=== PATIENT | male | born 1950 | race American Indian/Alaskan Native ===

== ENCOUNTER 2020-07-28 08:48 | Inpatient (IN) | payer MEDICARE ==
[2020-07-28] MEDS ORDERED: SODIUM CHLORIDE 0.9% 1000 ML 2,000 ML IV ONE (08:49)
[2020-07-28] MEDS ORDERED: HYDROCORTISONE SOD SUCC 100 MG/2 ML VIAL IV STA (08:49)
--- NOTE | 2020-07-28 09:07 | Emergency Department Report ---
ED General Adult HPI - General Chief complaint: Fever Stated complaint: AMS PUI?: No Time Seen by Provider: 07/28/20 08:49 Source: EMS (Verbal report received from emergency medical services. EMS documentation not available at time of chart dictation ), RN notes reviewed, old records reviewed Mode of arrival: Stretcher Limitations: Altered Mental Status, Physical Limitation - History of Present Illness Initial comments: The patient was evaluated in the emergency department for symptoms described in the history of present illness. He/she was evaluated in the context of the global COVID-19 pandemic, which necessitated consideration that the patient might be at risk for infection with the virus that causes COVID-19. Inst itutional protocols and algorithms that pertain to the evaluation of patients at risk for COVID-19 are in a state of rapid change based on information released by regulatory bodies including the CDC and federal and state organizations. These policies and algorithms were followed during the patient's care in the emergency department. Please note that these policies, procedures and recommendations changed on a rapid basis. The patient is a 69-year-old gentleman. He is not known to myself previously. His primary care doctor appears to be Dr. Camilo. He presents to this emergency room from [facility]. As per enclosed documentation, he was recently admitted to [facility], from May 29, 2020 through July 04, 2020. It appears that he has a history of quadriplegia, high C-spine fracture, MSSA, currently on Levaquin, and Eliquis. He is brought to the hospital by emergency medical services with a reported complaint of weakness, and altered mental status. Upon arrival to this emergency room, the patient was breathing sonorous sleep, and was found to be very tachycardic and hypotensive. A code sepsis was called overhead. EMS intubated this patient using C-spine immobilization techniques. Please note that this patient was intubated by EMS without my being present to directly supervise or monitor. The patient was found to be febrile to 106 degrees rectally, tachycardic to the 140s/150s, with a blood pressure in the 70s. Patient medicated empirically with norepinephrine, aggressive IV fluids, vancomycin, and ceftriaxone. Patient himself is not able to describe the qualitative nature of symptoms, exacerbating factors, relieving factors, or aggravating factors. His last known well time is not known. He is not accompanied by friends or family at this time for additional information or collateral information. -: unknown Radiation: other Quality: other Consistency: other Improves with: other Worsens with: other Associated Symptoms: other Treatments Prior to Arrival: other ED Review of Systems ROS: Stated complaint: AMS Other details as noted in HPI Comment: Unobtainable due to pts medical conditions ED Physical Exam - General Limitations: Altered Mental Status General appearance: obtunded - Head Head exam: Present: atraumatic, normocephalic - Eye Eye exam: Present: normal appearance - ENT ENT exam: Present: normal exam, normal orophraynx, mucous membranes moist, normal external ear exam, other (Endotracheal tube noted in oropharynx) - Neck Neck exam: Present: normal inspection, other (Cervical collar in place) - Respiratory Respiratory exam: Present: respiratory distress, rhonchi - Cardiovascular Cardiovascular Exam: Present: normal rhythm, tachycardia, normal heart sounds. Absent: systolic murmur, diastolic murmur, rubs, gallop - GI/Abdominal GI/Abdominal exam: Present: soft, other (Feeding tube in place). Absent: distended, tenderness, guarding, rebound, rigid, pulsatile mass - Rectal Rectal exam: Present: normal inspection, heme (-) stool, other (Sacral wound is noted). Absent: black stool, bloody stool - exam: Present: normal inspection External exam: Present: normal external exam - Extremities Exam Extremities exam: Present: normal inspection, other (2+ pulses noted in the bilateral upper and lower extremities. There is no palpable cord. negative Homans sign. Muscular compartments are soft. The pelvis is stable.). Absent: calf tenderness - Back Exam Back exam: Present: normal inspection. Absent: tenderness, CVA tenderness (R), CVA tenderness (L), paraspinal tenderness, vertebral tenderness - Neurological Exam Neurological exam: Present: altered, other (Patient nonverbal. GCS of 3T.) - Psychiatric Psychiatric exam: Present: other (The patient is nonverbal) - Skin Skin exam: Present: warm, dry, intact, normal color, other (There is a PICC line noted in the left upper extremity, without redness, pus or streaking). Absent: rash ED Course Vital Signs 07/28/20 07/28/20 09:00 13:08 Temperature 106 F H Pulse Rate 114 H 120 H Respiratory 12 18 Rate Blood Pressure 114/64 142/100 [Right] O2 Sat by Pulse 92 97 Oximetry - Reevaluation(s) Reevaluation #1: 07/28/20 12:18 Differential diagnosis, including but not limited to: Bacteremia, viremia, pneum onia, urinary tract infection, intra-abdominal infection, intracranial hemorrhage Assessment and plan: 69-year-old gentleman, who is febrile rectally to 106 degrees, tachycardic to the 140s, hypotensive initially, concerning for sepsis. Code sepsis called overhead. Broad-spectrum antibiotics, fluids, and norepinephrine infusing. Have requested medical records from [place]. Patient has a documented history of C5 quadriplegia, and is currently in a cervical collar. He does not currently have advanced directives. Prognosis very guarded. Continue fluids, antibiotics, and vasopressors as well as stress dose hydrocortisone. Have contacted critical care physician on-call, Dr. Deniz Dykes, have discussed the patient's history, physical, pertinent laboratory studies and imaging studies. He agrees to placement to the intensive care unit. Noncontrast CT scan of the brain, cervical spine, chest abdomen pelvis ordered. Patient to be admitted to the medical service once initial diagnostic radiology has resulted. Prognosis is very poor. Elevated troponin is likely a type II troponin leak. Initial EKG with excessive artifact, difficult to interpret, have requested a stat repeat EKG. 07/28/20 12:23 07/28/20 12:23 Reevaluation #2: 07/28/20 12:57 Hospital physician, Dr. Roberts, to admit patient to the medical service. 07/28/20 14:07 CT scan abdomen pelvis negative for acute findings. Blood pressure improved. Tachycardia improving. At this point in time, engineering is not able to provide an EKG without motion artifact, secondary to multiple disruptions and instrumentation in this patient's room. Because this patient is critically ill, and requires a ventilator and vasopressors, it is unsafe to move the patient, into a different room, until room opens up and to the intensive care unit. Therefore, we will defer to the inpatient team to follow-up on abnormal EKG, and nonspecifically elevated troponin. The patient was also found to have hyper glycemia, and we administered insulin. We will also defer to the inpatient team to follow-up on nonemergent incidental abnormal findings on noncontrast CT scan. ED Medical Decision Making - Lab Data Result diagrams: 07/28/20 08:48 07/28/20 08:48 Lab Results 07/28/20 07/28/20 07/28/20 Range/Units 08:48 08:48 08:48 WBC 17.0 H (4.5-11.0) K/mm3 RBC 2.77 L (3.65-5.03) M/mm3 Hgb 8.2 L (11.8-15.2) gm/dl Hct 26.5 L (35.5-45.6) % MCV 96 H (84-94) fl MCH 30 (28-32) pg MCHC 31 L (32-34) % RDW 16.2 H (13.2-15.2) % Plt Count 265 (140-440) K/mm3 Lymph % (Auto) Blade Grader Operator [place] % (Auto) Blade Grader Operator Eos % (Auto) Blade Grader Operator Baso % (Auto) Blade Grader Operator Lymph # (Auto) Blade Grader Operator [place] # (Auto) Blade Grader Operator Eos # (Auto) Blade Grader Operator Baso # (Auto) Blade Grader Operator Seg Neutrophils % Blade Grader Operator Seg Neutrophils # Blade Grader Operator PT 24.7 H (12.2-14.9) Sec. INR 2.17 H (0.87-1.13) APTT 34.7 (24.2-36.6) Sec. ABG pH (7.350-7.450) pH Units ABG pCO2 mm Hg ABG pO2 (80.0-90.0) mm Hg ABG HCO3 (20.0-26.0) mmol/L ABG O2 Saturation (95.0-99.0) % ABG Base Excess (-2.0-3.0) mmol/L ABG Hemoglobin (14.0-18.0) gm/dl ABG Carboxyhemoglobin (0.0-5.0) % ABG Methemoglobin (0.0-1.5) % VBG pH (7.320-7.420) Oxyhemoglobin (95.0-99.0) % FiO2 % Sodium 135 L (137-145) mmol/L Potassium 3.5 L (3.6-5.0) mmol/L Chloride 97.6 L (98-107) mmol/L Carbon Dioxide 26 (22-30) mmol/L Anion Gap 15 mmol/L BUN 44 H (9-20) mg/dL Creatinine 1.6 H (0.8-1.3) mg/dL Estimated GFR 52 ml/min BUN/Creatinine Ratio 28 % Glucose 431 H (75-100) mg/dL Lactic Acid (0.7-2.0) mmol/L Calcium 7.9 L (8.4-10.2) mg/dL Magnesium 1.90 (1.7-2.3) mg/dL Total Bilirubin 0.20 (0.1-1.2) mg/dL AST 81 H (5-40) units/L ALT 49 (7-56) units/L Alkaline Phosphatase 60 (35-129) units/L Ammonia (25-60) umol/L Total Creatine Kinase 486 H (55-170) units/L Troponin T 0.115 H* (0.00-0.029) ng/mL Total Protein 5.6 L (6.3-8.2) g/dL Albumin 2.6 L (3.9-5) g/dL Albumin/Globulin Ratio 0.9 % Triglycerides 63 (2-149) mg/dL Cholesterol 80 (50-199) mg/dL LDL Cholesterol Direct 44 L (50-130) mg/dL HDL Cholesterol 26 L (40-59) mg/dL Cholesterol/HDL Ratio 3.07 % TSH (0.270-4.200) mlU/mL Salicylates (2.8-20.0) mg/dL Plasma/Serum Alcohol (0-0.07) % Blood Type Antibody Screen 07/28/20 07/28/20 07/28/20 Range/Units 08:48 08:48 08:48 WBC (4.5-11.0) K/mm3 RBC (3.65-5.03) M/mm3 Hgb (11.8-15.2) gm/dl Hct (35.5-45.6) % MCV (84-94) fl MCH (28-32) pg MCHC (32-34) % RDW (13.2-15.2) % Plt Count (140-440) K/mm3 Lymph % (Auto) [place] % (Auto) Eos % (Auto) Baso % (Auto) Lymph # (Auto) [place] # (Auto) Eos # (Auto) Baso # (Auto) Seg Neutrophils % Seg Neutrophils # PT (12.2-14.9) Sec. INR (0.87-1.13) APTT (24.2-36.6) Sec. ABG pH (7.350-7.450) pH Units ABG pCO2 mm Hg ABG pO2 (80.0-90.0) mm Hg ABG HCO3 (20.0-26.0) mmol/L ABG O2 Saturation (95.0-99.0) % ABG Base Excess (-2.0-3.0) mmol/L ABG Hemoglobin (14.0-18.0) gm/dl ABG Carboxyhemoglobin (0.0-5.0) % ABG Methemoglobin (0.0-1.5) % VBG pH (7.320-7.420) Oxyhemoglobin (95.0-99.0) % FiO2 % Sodium (137-145) mmol/L Potassium (3.6-5.0) mmol/L Chloride (98-107) mmol/L Carbon Dioxide (22-30) mmol/L Anion Gap mmol/L BUN (9-20) mg/dL Creatinine (0.8-1.3) mg/dL Estimated GFR ml/min BUN/Creatinine Ratio % Glucose (75-100) mg/dL Lactic Acid (0.7-2.0) mmol/L Calcium (8.4-10.2) mg/dL Magnesium (1.7-2.3) mg/dL Total Bilirubin (0.1-1.2) mg/dL AST (5-40) units/L ALT (7-56) units/L Alkaline Phosphatase (35-129) units/L Ammonia 63.0 H (25-60) umol/L Total Creatine Kinase (55-170) units/L Troponin T (0.00-0.029) ng/mL Total Protein (6.3-8.2) g/dL Albumin (3.9-5) g/dL Albumin/Globulin Ratio % Triglycerides (2-149) mg/dL Cholesterol (50-199) mg/dL LDL Cholesterol Direct (50-130) mg/dL HDL Cholesterol (40-59) mg/dL Cholesterol/HDL Ratio % TSH 2.450 (0.270-4.200) mlU/mL Salicylates (2.8-20.0) mg/dL Plasma/Serum Alcohol (0-0.07) % Blood Type O POSITIVE Antibody Screen Negative 07/28/20 07/28/20 07/28/20 Range/Units 09:44 09:44 09:44 WBC (4.5-11.0) K/mm3 RBC (3.65-5.03) M/mm3 Hgb (11.8-15.2) gm/dl Hct (35.5-45.6) % MCV (84-94) fl MCH (28-32) pg MCHC (32-34) % RDW (13.2-15.2) % Plt Count (140-440) K/mm3 Lymph % (Auto) [place] % (Auto) Eos % (Auto) Baso % (Auto) Lymph # (Auto) [place] # (Auto) Eos # (Auto) Baso # (Auto) Seg Neutrophils % Seg Neutrophils # PT (12.2-14.9) Sec. INR (0.87-1.13) APTT (24.2-36.6) Sec. ABG pH (7.350-7.450) pH Units ABG pCO2 mm Hg ABG pO2 (80.0-90.0) mm Hg ABG HCO3 (20.0-26.0) mmol/L ABG O2 Saturation (95.0-99.0) % ABG Base Excess (-2.0-3.0) mmol/L ABG Hemoglobin (14.0-18.0) gm/dl ABG Carboxyhemoglobin (0.0-5.0) % ABG Methemoglobin (0.0-1.5) % VBG pH (7.320-7.420) Oxyhemoglobin (95.0-99.0) % FiO2 % Sodium (137-145) mmol/L Potassium (3.6-5.0) mmol/L Chloride (98-107) mmol/L Carbon Dioxide (22-30) mmol/L Anion Gap mmol/L BUN (9-20) mg/dL Creatinine (0.8-1.3) mg/dL Estimated GFR ml/min BUN/Creatinine Ratio % Glucose (75-100) mg/dL Lactic Acid 3.80 H* (0.7-2.0) mmol/L Calcium (8.4-10.2) mg/dL Magnesium (1.7-2.3) mg/dL Total Bilirubin (0.1-1.2) mg/dL AST (5-40) units/L ALT (7-56) units/L Alkaline Phosphatase (35-129) units/L Ammonia (25-60) umol/L Total Creatine Kinase (55-170) units/L Troponin T (0.00-0.029) ng/mL Total Protein (6.3-8.2) g/dL Albumin (3.9-5) g/dL Albumin/Globulin Ratio % Triglycerides (2-149) mg/dL Cholesterol (50-199) mg/dL LDL Cholesterol Direct (50-130) mg/dL HDL Cholesterol (40-59) mg/dL Cholesterol/HDL Ratio % TSH (0.270-4.200) mlU/mL Salicylates < 0.3 L (2.8-20.0) mg/dL Plasma/Serum Alcohol < 0.01 (0-0.07) % Blood Type Antibody Screen 07/28/20 07/28/20 Range/Units 09:44 10:18 WBC (4.5-11.0) K/mm3 RBC (3.65-5.03) M/mm3 Hgb (11.8-15.2) gm/dl Hct (35.5-45.6) % MCV (84-94) fl MCH (28-32) pg MCHC (32-34) % RDW (13.2-15.2) % Plt Count (140-440) K/mm3 Lymph % (Auto) [place] % (Auto) Eos % (Auto) Baso % (Auto) Lymph # (Auto) [place] # (Auto) Eos # (Auto) Baso # (Auto) Seg Neutrophils % Seg Neutrophils # PT (12.2-14.9) Sec. INR (0.87-1.13) APTT (24.2-36.6) Sec. ABG pH 7.447 (7.350-7.450) pH Units ABG pCO2 34.1 mm Hg ABG pO2 78.0 L (80.0-90.0) mm Hg ABG HCO3 23.0 (20.0-26.0) mmol/L ABG O2 Saturation 96.8 (95.0-99.0) % ABG Base Excess -0.8 (-2.0-3.0) mmol/L ABG Hemoglobin 7.6 L (14.0-18.0) gm/dl ABG Carboxyhemoglobin 1.3 (0.0-5.0) % ABG Methemoglobin 0.6 (0.0-1.5) % VBG pH 7.377 (7.320-7.420) Oxyhemoglobin 95.0 (95.0-99.0) % FiO2 0.50 % Sodium (137-145) mmol/L Potassium (3.6-5.0) mmol/L Chloride (98-107) mmol/L Carbon Dioxide (22-30) mmol/L Anion Gap mmol/L BUN (9-20) mg/dL Creatinine (0.8-1.3) mg/dL Estimated GFR ml/min BUN/Creatinine Ratio % Glucose (75-100) mg/dL Lactic Acid (0.7-2.0) mmol/L Calcium (8.4-10.2) mg/dL Magnesium (1.7-2.3) mg/dL Total Bilirubin (0.1-1.2) mg/dL AST (5-40) units/L ALT (7-56) units/L Alkaline Phosphatase (35-129) units/L Ammonia (25-60) umol/L Total Creatine Kinase (55-170) units/L Troponin T (0.00-0.029) ng/mL Total Protein (6.3-8.2) g/dL Albumin (3.9-5) g/dL Albumin/Globulin Ratio % Triglycerides (2-149) mg/dL Cholesterol (50-199) mg/dL LDL Cholesterol Direct (50-130) mg/dL HDL Cholesterol (40-59) mg/dL Cholesterol/HDL Ratio % TSH (0.270-4.200) mlU/mL Salicylates (2.8-20.0) mg/dL Plasma/Serum Alcohol (0-0.07) % Blood Type Antibody Screen Lab Results 07/28/20 07/28/20 07/28/20 Range/Units 08:48 08:48 08:48 WBC 17.0 H (4.5-11.0) K/mm3 RBC 2.77 L (3.65-5.03) M/mm3 Hgb 8.2 L (11.8-15.2) gm/dl Hct 26.5 L (35.5-45.6) % MCV 96 H (84-94) fl MCH 30 (28-32) pg MCHC 31 L (32-34) % RDW 16.2 H (13.2-15.2) % Plt Count 265 (140-440) K/mm3 Lymph % (Auto) Blade Grader Operator [place] % (Auto) Blade Grader Operator Eos % (Auto) Blade Grader Operator Baso % (Auto) Blade Grader Operator Lymph # (Auto) Blade Grader Operator [place] # (Auto) Blade Grader Operator Eos # (Auto) Blade Grader Operator Baso # (Auto) Blade Grader Operator Seg Neutrophils % Blade Grader Operator Seg Neutrophils # Blade Grader Operator PT 24.7 H (12.2-14.9) Sec. INR 2.17 H (0.87-1.13) APTT 34.7 (24.2-36.6) Sec. ABG pH (7.350-7.450) pH Units ABG pCO2 mm Hg ABG pO2 (80.0-90.0) mm Hg ABG HCO3 (20.0-26.0) mmol/L ABG O2 Saturation (95.0-99.0) % ABG Base Excess (-2.0-3.0) mmol/L ABG Hemoglobin (14.0-18.0) gm/dl ABG Carboxyhemoglobin (0.0-5.0) % ABG Methemoglobin (0.0-1.5) % VBG pH (7.320-7.420) Oxyhemoglobin (95.0-99.0) % FiO2 % Sodium 135 L (137-145) mmol/L Potassium 3.5 L (3.6-5.0) mmol/L Chloride 97.6 L (98-107) mmol/L Carbon Dioxide 26 (22-30) mmol/L Anion Gap 15 mmol/L BUN 44 H (9-20) mg/dL Creatinine 1.6 H (0.8-1.3) mg/dL Estimated GFR 52 ml/min BUN/Creatinine Ratio 28 % Glucose 431 H (75-100) mg/dL Lactic Acid (0.7-2.0) mmol/L Calcium 7.9 L (8.4-10.2) mg/dL Magnesium 1.90 (1.7-2.3) mg/dL Total Bilirubin 0.20 (0.1-1.2) mg/dL AST 81 H (5-40) units/L ALT 49 (7-56) units/L Alkaline Phosphatase 60 (35-129) units/L Ammonia (25-60) umol/L Total Creatine Kinase 486 H (55-170) units/L Troponin T 0.115 H* (0.00-0.029) ng/mL Total Protein 5.6 L (6.3-8.2) g/dL Albumin 2.6 L (3.9-5) g/dL Albumin/Globulin Ratio 0.9 % Triglycerides 63 (2-149) mg/dL Cholesterol 80 (50-199) mg/dL LDL Cholesterol Direct 44 L (50-130) mg/dL HDL Cholesterol 26 L (40-59) mg/dL Cholesterol/HDL Ratio 3.07 % TSH (0.270-4.200) mlU/mL Salicylates (2.8-20.0) mg/dL Plasma/Serum Alcohol (0-0.07) % Blood Type Antibody Screen 07/28/20 07/28/20 07/28/20 Range/Units 08:48 08:48 08:48 WBC (4.5-11.0) K/mm3 RBC (3.65-5.03) M/mm3 Hgb (11.8-15.2) gm/dl Hct (35.5-45.6) % MCV (84-94) fl MCH (28-32) pg MCHC (32-34) % RDW (13.2-15.2) % Plt Count (140-440) K/mm3 Lymph % (Auto) [place] % (Auto) Eos % (Auto) Baso % (Auto) Lymph # (Auto) [place] # (Auto) Eos # (Auto) Baso # (Auto) Seg Neutrophils % Seg Neutrophils # PT (12.2-14.9) Sec. INR (0.87-1.13) APTT (24.2-36.6) Sec. ABG pH (7.350-7.450) pH Units ABG pCO2 mm Hg ABG pO2 (80.0-90.0) mm Hg ABG HCO3 (20.0-26.0) mmol/L ABG O2 Saturation (95.0-99.0) % ABG Base Excess (-2.0-3.0) mmol/L ABG Hemoglobin (14.0-18.0) gm/dl ABG Carboxyhemoglobin (0.0-5.0) % ABG Methemoglobin (0.0-1.5) % VBG pH (7.320-7.420) Oxyhemoglobin (95.0-99.0) % FiO2 % Sodium (137-145) mmol/L Potassium (3.6-5.0) mmol/L Chloride (98-107) mmol/L Carbon Dioxide (22-30) mmol/L Anion Gap mmol/L BUN (9-20) mg/dL Creatinine (0.8-1.3) mg/dL Estimated GFR ml/min BUN/Creatinine Ratio % Glucose (75-100) mg/dL Lactic Acid (0.7-2.0) mmol/L Calcium (8.4-10.2) mg/dL Magnesium (1.7-2.3) mg/dL Total Bilirubin (0.1-1.2) mg/dL AST (5-40) units/L ALT (7-56) units/L Alkaline Phosphatase (35-129) units/L Ammonia 63.0 H (25-60) umol/L Total Creatine Kinase (55-170) units/L Troponin T (0.00-0.029) ng/mL Total Protein (6.3-8.2) g/dL Albumin (3.9-5) g/dL Albumin/Globulin Ratio % Triglycerides (2-149) mg/dL Cholesterol (50-199) mg/dL LDL Cholesterol Direct (50-130) mg/dL HDL Cholesterol (40-59) mg/dL Cholesterol/HDL Ratio % TSH 2.450 (0.270-4.200) mlU/mL Salicylates (2.8-20.0) mg/dL Plasma/Serum Alcohol (0-0.07) % Blood Type O POSITIVE Antibody Screen Negative 07/28/20 07/28/20 07/28/20 Range/Units 09:44 09:44 09:44 WBC (4.5-11.0) K/mm3 RBC (3.65-5.03) M/mm3 Hgb (11.8-15.2) gm/dl Hct (35.5-45.6) % MCV (84-94) fl MCH (28-32) pg MCHC (32-34) % RDW (13.2-15.2) % Plt Count (140-440) K/mm3 Lymph % (Auto) [place] % (Auto) Eos % (Auto) Baso % (Auto) Lymph # (Auto) [place] # (Auto) Eos # (Auto) Baso # (Auto) Seg Neutrophils % Seg Neutrophils # PT (12.2-14.9) Sec. INR (0.87-1.13) APTT (24.2-36.6) Sec. ABG pH (7.350-7.450) pH Units ABG pCO2 mm Hg ABG pO2 (80.0-90.0) mm Hg ABG HCO3 (20.0-26.0) mmol/L ABG O2 Saturation (95.0-99.0) % ABG Base Excess (-2.0-3.0) mmol/L ABG Hemoglobin (14.0-18.0) gm/dl ABG Carboxyhemoglobin (0.0-5.0) % ABG Methemoglobin (0.0-1.5) % VBG pH (7.320-7.420) Oxyhemoglobin (95.0-99.0) % FiO2 % Sodium (137-145) mmol/L Potassium (3.6-5.0) mmol/L Chloride (98-107) mmol/L Carbon Dioxide (22-30) mmol/L Anion Gap mmol/L BUN (9-20) mg/dL Creatinine (0.8-1.3) mg/dL Estimated GFR ml/min BUN/Creatinine Ratio % Glucose (75-100) mg/dL Lactic Acid 3.80 H* (0.7-2.0) mmol/L Calcium (8.4-10.2) mg/dL Magnesium (1.7-2.3) mg/dL Total Bilirubin (0.1-1.2) mg/dL AST (5-40) units/L ALT (7-56) units/L Alkaline Phosphatase (35-129) units/L Ammonia (25-60) umol/L Total Creatine Kinase (55-170) units/L Troponin T (0.00-0.029) ng/mL Total Protein (6.3-8.2) g/dL Albumin (3.9-5) g/dL Albumin/Globulin Ratio % Triglycerides (2-149) mg/dL Cholesterol (50-199) mg/dL LDL Cholesterol Direct (50-130) mg/dL HDL Cholesterol (40-59) mg/dL Cholesterol/HDL Ratio % TSH (0.270-4.200) mlU/mL Salicylates < 0.3 L (2.8-20.0) mg/dL Plasma/Serum Alcohol < 0.01 (0-0.07) % Blood Type Antibody Screen 07/28/20 07/28/20 Range/Units 09:44 10:18 WBC (4.5-11.0) K/mm3 RBC (3.65-5.03) M/mm3 Hgb (11.8-15.2) gm/dl Hct (35.5-45.6) % MCV (84-94) fl MCH (28-32) pg MCHC (32-34) % RDW (13.2-15.2) % Plt Count (140-440) K/mm3 Lymph % (Auto) [place] % (Auto) Eos % (Auto) Baso % (Auto) Lymph # (Auto) [place] # (Auto) Eos # (Auto) Baso # (Auto) Seg Neutrophils % Seg Neutrophils # PT (12.2-14.9) Sec. INR (0.87-1.13) APTT (24.2-36.6) Sec. ABG pH 7.447 (7.350-7.450) pH Units ABG pCO2 34.1 mm Hg ABG pO2 78.0 L (80.0-90.0) mm Hg ABG HCO3 23.0 (20.0-26.0) mmol/L ABG O2 Saturation 96.8 (95.0-99.0) % ABG Base Excess -0.8 (-2.0-3.0) mmol/L ABG Hemoglobin 7.6 L (14.0-18.0) gm/dl ABG Carboxyhemoglobin 1.3 (0.0-5.0) % ABG Methemoglobin 0.6 (0.0-1.5) % VBG pH 7.377 (7.320-7.420) Oxyhemoglobin 95.0 (95.0-99.0) % FiO2 0.50 % Sodium (137-145) mmol/L Potassium (3.6-5.0) mmol/L Chloride (98-107) mmol/L Carbon Dioxide (22-30) mmol/L Anion Gap mmol/L BUN (9-20) mg/dL Creatinine (0.8-1.3) mg/dL Estimated GFR ml/min BUN/Creatinine Ratio % Glucose (75-100) mg/dL Lactic Acid (0.7-2.0) mmol/L Calcium (8.4-10.2) mg/dL Magnesium (1.7-2.3) mg/dL Total Bilirubin (0.1-1.2) mg/dL AST (5-40) units/L ALT (7-56) units/L Alkaline Phosphatase (35-129) units/L Ammonia (25-60) umol/L Total Creatine Kinase (55-170) units/L Troponin T (0.00-0.029) ng/mL Total Protein (6.3-8.2) g/dL Albumin (3.9-5) g/dL Albumin/Globulin Ratio % Triglycerides (2-149) mg/dL Cholesterol (50-199) mg/dL LDL Cholesterol Direct (50-130) mg/dL HDL Cholesterol (40-59) mg/dL Cholesterol/HDL Ratio % TSH (0.270-4.200) mlU/mL Salicylates (2.8-20.0) mg/dL Plasma/Serum Alcohol (0-0.07) % Blood Type Antibody Screen - EKG Data -: EKG Interpreted by Dc EKG shows normal: sinus rhythm Rate: tachycardia - EKG Data When compared to previous EKG there are: previous EKG unavailable 07/28/20 12:12 EKG interpreted at 10: 15 This is a sinus rhythm, with a rate 125 bpm. There is a normal axis, multiple PVCs, left ventricular hypertrophy, and motion artifact. This is an abnormal EKG. This is not a STEMI. - Radiology Data Radiology results: pending, report reviewed, image reviewed [facility] [address] [place] [address] XRay Report Signed Patient: PRANAV PORTER MR#: [id number] 72 : 1950 Acct:[id number] Age/Sex: 69 / M ADM Date: 07/28/20 Loc: ED Attending Dr: Ordering Physician: SHARRI LERNER MD Date of Service: 07/28/20 Procedure(s): XR chest 1V ap Accession Number(s): [id number] cc: SHARRI LERNER MD Fluoro Time In Minutes: CHEST 1 VIEW INDICATION / CLINICAL INFORMATION: ETT placement. COMPARISON: None available. FINDINGS: SUPPORT DEVICES: Endotracheal tube in place with tip terminating approximately 6 cm above the level of the juan miguel. Enteric tube in place coursing beneath the diaphragm with the tip not visualized. Left-sided PICC with tip terminating in the left brachiocephalic vein. HEART / MEDIASTINUM: No significant abnormality. LUNGS / PLEURA: There is patchy airspace opacity in the left lung base. The right lung is clear. No pneumothorax. ADDITIONAL FINDINGS: No significant additional findings. IMPRESSION: 1. Appropriately positioned lines and tubes as above. 2. Left basilar airspace opacity worrisome for pneumonia in the appropriate clinical setting. Signer Name: Maureen Davey MD Signed: 07/28/2020 10:16 AM Workstation Name: [employer] Transcribed By: C Dictated By: Maureen Davey MD Electronically Authenticated By: Maureen Davey MD Signed Date/Time: 07/28/20 1016 DD/ 1015 [facility] [address] [place] [address] Cat Scan Report Signed Patient: PRANAV PORTER MR#: [id number] 72 : 1950 Acct:[id number] Age/Sex: 69 / M ADM Date: 07/28/20 Loc: ED Attending Dr: Ordering Physician: SHARRI LERNER MD Date of Service: 07/28/20 Procedure(s): CT head/brain wo con Accession Number(s): [id number] cc: SHARRI LERNER MD CT head/brain wo con INDICATION: Altered Mental Status pt on vent. TECHNIQUE: Routine CT head without contrast. All CT scans at this location are performed using CT dose reduction for ALARA by means of automated exposure control. COMPARISON: None. FINDINGS: BRAIN / INTRACRANIAL CONTENTS: No acute hemorrhage, mass effect, midline shift, or hydrocephalus. No appreciable acute large territorial or lacunar infarct. No chronic infarct or focal atrophy. Normal brain volume and ventricular/sulcal size for age. ORBITS: No significant abnormality of visualized orbits. SINUSES / MASTOIDS: Trace fluid in the maxillary sinuses. ADDITIONAL FINDINGS: None. IMPRESSION: 1. No acute intracranial abnormality on noncontrast CT of the brain. Signer Name: Maureen Davey MD Signed: 07/28/2020 1:03 PM Workstation Name: [id number] Transcribed By: [facility] Dictated By: Maureen Davey MD Electronically Authenticated By: Maureen Davey MD Signed Date/Time: 07/28/20 1303 DD/ 1300 [facility] [address] [place] [address] Cat Scan Report Signed Patient: PRANAV PORTER MR#: [id number] 72 : 1950 Acct:[id number] Age/Sex: 69 / M ADM Date: 07/28/20 Loc: ED Attending Dr: Ordering Physician: SHARRI LERNER MD Date of Service: 07/28/20 Procedure(s): CT cervical spine wo con Accession Number(s): [id number] cc: SHARRI LERNER MD CT CERVICAL SPINE WITHOUT CONTRAST INDICATION / CLINICAL INFORMATION: Known history of C5 fracture. TECHNIQUE: Axial CT images were obtained through the cervical spine. Sagittal and coronal reformatted images were produced. All CT scans at this location are performed using CT dose reduction for ALARA by means of automated exposure control. COMPARISON: None available. FINDINGS: VERTEBRAE: No acute displaced fracture identified. Postsurgical change related to posterior decompression and fixation with parallel rods and pedicle screws from C3-C6. No evidence of hardware loosening or failure. ALIGNMENT: No significant abnormality. DISC SPACES: Mild to moderate disc space narrowing throughout the cervical spine, most prominent at C5-6. FACET JOINTS: Multilevel facet hypertrophy. CRANIOCERVICAL JUNCTION:No significant abnormality. SPINAL CANAL: No significant abnormality. PARASPINAL SOFT TISSUES: No significant abnormality. ADDITIONAL FINDINGS: Endotracheal and enteric tubes in place. There is what appears to be a displaced tooth in the posterior nasopharynx, just anterior to the clivus and craniocervical junction (series 605, image 32). LUNG APICES: Patchy airspace disease in the visualized left upper lobe, refer to separately dictated chest CT. IMPRESSION: 1. No acute fracture identified in the cervical spine. Postsurgical change from C3 through C6 without evidence of complication. 2. There is what appears to be a displaced tooth in the posterior nasopharynx, and clinical correlation is recommended. Signer Name: Maureen Davey MD Signed: 07/28/2020 1:13 PM Workstation Name: [id number] Transcribed By: [facility] Dictated By: Maureen Davey MD Electronically Authenticated By: Maureen Davey MD Signed Date/Time: 07/28/20 1313 DD/ 1303 CT CHEST WITHOUT CONTRAST INDICATION / CLINICAL INFORMATION: Acute respiratory failure, sepsis. TECHNIQUE: Axial CT images were obtained through the chest without contrast. All CT scans at this location are performed using CT dose reduction for ALARA by means of automated exposure control. COMPARISON: None available. FINDINGS: HEART: No significant abnormality. THORACIC AORTA: No significant abnormality. MEDIASTINUM and ALBERT: No significant abnormality. LUNGS: There are filling defects noted in the left mainstem bronchus. There are moderate patchy airspace opacities with a dependent/lower lung predominance. There is more focal nodular consolidative airspace opacity in the left lower lobe. PLEURA: No significant pleural effusion. No pneumothorax. ADDITIONAL FINDINGS: Endotracheal tube, enteric tube, and left-sided PICC in place. UPPER ABDOMEN: Refer to separately dictated CT abdomen pelvis. SKELETAL SYSTEM: No significant abnormality. IMPRESSION: 1. Moderate patchy bilateral airspace opac ities are nonspecific and may reflect aspiration or multifocal pneumonia. There is a more nodular consolidative component in the left lung base, with corresponding density seen radiographically. Recommend chest radiograph in 6-12 weeks following treatment to ensure resolution. Signer Name: Maureen Davey MD Signed: 07/28/2020 12:23 PM Workstation Name: [id number] Critical Care Time: Yes Critical care time in (mins) excluding proc time.: 74 Critical care attestation.: If time is entered above; I have spent that time in minutes in the direct care of this critically ill patient, excluding procedure time. ED Disposition Clinical Impression: Acute respiratory failure, Septic shock, Quadriplegia, Anticoagulated, Elevated troponin Disposition: OP ADMIT IP TO THIS HOSP Is pt being admited?: Yes Does the pt Need Aspirin: No Condition: Critical Referrals: BRISEIDA STEWARD [Other] - 3-5 Days
[2020-07-28] MEDS ORDERED: NORepinephrine/NS 4 MG-250 ML 4 MG/250 ML BAG IV ONE (09:19)
[2020-07-28] MEDS ORDERED: MINERAL OIL/PETROLATUM, WHITE OPHTH OINT 3.5 GM OU PRN (09:30)
[2020-07-28] MEDS ORDERED: LIP THERAPY VASELINE TP PRN (09:30)
[2020-07-28] MEDS ORDERED: VANCOMYCIN/NS 1 GM/250 ML 1 GM/250 ML BAG IV ONE (09:32)
[2020-07-28 10:03] LABS: Hematocrit 26.5 % (35.5-45.6); Hemoglobin 8.2 gm/dl (11.8-15.2); Mean Corpuscular HGB Conc 31 % (32-34); Mean Corpuscular Volume 96 fl (84-94); Platelet Count 265 K/mm3 (140-440); Red Blood Count 2.77 M/mm3 (3.65-5.03); Red Cell Distribution Width 16.2 % (13.2-15.2)
[2020-07-28 10:06] LABS: INR 2.17 (0.87-1.13); Partial Thromboplastin Time 34.7 Sec. (24.2-36.6)
--- NOTE | 2020-07-28 10:21 | XRay Report ---
CHEST 1 VIEW INDICATION / CLINICAL INFORMATION: ETT placement. COMPARISON: None available. FINDINGS: SUPPORT DEVICES: Endotracheal tube in place with tip terminating approximately 6 cm above the level o f the juan miguel. Enteric tube in place coursing beneath the diaphragm with the tip not visualized. Left- sided PICC with tip terminating in the left brachiocephalic vein. HEART / MEDIASTINUM: No significant abnormality. LUNGS / PLEURA: There is patchy airspace opacity in the left lung base. The right lung is clear. No p neumothorax. ADDITIONAL FINDINGS: No significant additional findings. IMPRESSION: 1. Appropriately positioned lines and tubes as above. 2. Left basilar airspace opacity worrisome for pneumonia in the appropriate clinical setting. Signer Name: Maureen Davey MD Signed: 07/28/2020 10:16 AM Workstation Name: [id number]
[2020-07-28 10:51] LABS: ABG Base Excess -0.8 mmol/L (-2.0-3.0); ABG Methemoglobin 0.6 % (0.0-1.5); ABG Oxygen Saturation 96.8 % (95.0-99.0); ABG PCO2 34.1 mm Hg; ABG PH 7.447 pH Units (7.350-7.450)
[2020-07-28 11:03] LABS: Calcium 7.9 mg/dL (8.4-10.2)
[2020-07-28 11:04] LABS: Albumin 2.6 g/dL (3.9-5)
[2020-07-28 12:00] LABS: Chol/HDL Ratio 3.07 %
--- NOTE | 2020-07-28 12:52 | History and Physical Report ---
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 with Quadraplegia S/P C spine injury presents to ED for evaluation. Patient is intubated and ambulatory support at time of my evaluation is unable to provide history. Patient history via by EMS staff, ED staff, detention facility staff, as well as patient family who was made available by telephone for interview. As per family members the patient was found to have fever today by detention facility staff. Staff subsequently notified family and reported that patient was being transported to hospital for evaluation. EMS was notified and upon arrival the patient was found to be in distress and with fever to 106 F. Patient transported to [facility] for further care and evaluation of the aforementioned symptoms. The patient was seen and evaluated in the emergency department. All lab and imaging studies reviewed. The patient was found to have sepsis, complicated by hypotension with a systolic blood pressure in the 70s with a heart rate in the 150s. The patient was also found to be unable to protect his airway. The patient was subsequently intubated and placed on ventilatory support and initiated on sepsis protocol. Patient underwent chest x-ray which revealed pneumonia. Patient also found to have JEFFERSON with ATN, hyponatremia, toxic metabolic encephalopathy, and acidosis. Patient admitted to ICU due to increased risk for worsening symptoms and development of multiple organ system failure. Critical care team consulted in ED. No further history is obtainable. As per family the patient received both doses of the Corous360 coronavirus vaccine. No prior admission for review. No medication listed at time of admission for reconciliation. Advanced care planning conducted in ED. Past History Past Medical History: other (See HPI) Past Surgical History: No surgical history, Other (Unable to obtain) Social history: single. denies: smoking, alcohol abuse, prescription drug abuse Family history: diabetes, hypertension Medications and Allergies Allergies Allergy/AdvReac Type Severity Reaction Status Date / Time No Known Allergies Allergy Unverified 07/28/20 15:17 Active Meds: Active Medications Acetaminophen (Acetaminophen 650 Mg Rect Supp) 650 mg MI ONCE ONE Stop: 07/28/20 12:13 Famotidine (Famotidine 20 Mg/2 Ml Inj) 20 mg IV BID KY Fentanyl (Fentanyl 100 Mcg/2 Ml Inj) 50 mcg IV Q10MIN PRN PRN Reason: ANALGESIA Hydrocortisone Sodium Succinate (Hydrocortisone Sod Succ 100 Mg/2 Ml Vial) 100 mg IV NOW STA Stop: 07/28/20 08:50 Hydrophilic Ointment (Lip Therapy Vaseline) 1 applic TP Q2HR PRN PRN Reason: Dry Lips Sodium Chloride (Nacl 0.9% 1000 Ml) 2,000 mls @ 999 mls/hr IV BOLUS ONE Stop: 07/28/20 10:49 Last Admin: 07/28/20 10:00 Dose: 999 mls/hr Documented by: Ceftriaxone Sodium (Rocephin/Ns 2 Gm/100 Ml) 2 gm in 100 mls @ 200 mls/hr IV ONCE ONE; Protocol Stop: 07/28/20 09:18 Fentanyl Citrate (Fentanyl Drip Premix) 2,000 mcg in 100 mls @ 0 mls/hr IV TITR KY; Protocol Norepinephrine (Levophed Drip 4 Mg/Ns 250 Ml) 4 mg in 250 mls @ 7.5 mls/hr IV TITR KY; Protocol Vancomycin HCl (Vancomycin/Ns 1 Gm/250 Ml) 1 gm in 250 mls @ 167.007 mls/hr IV ONCE ONE; Protocol Stop: 07/28/20 11:01 Multi-Ingred Cream/Lotion/Oil/Oint (Mineral Oil/Petrolatum, White Ophth Oint 3.5 Gm) 1 applic OU Q4HR PRN PRN Reason: Dry Eye(s) Senna/Docusate Sodium (Sennosides/Docusate Sodium 8.6/50 Mg Tab) 1 tab FEEDTUBE BID [place] Review of Systems ROS unobtainable: due to endotracheal tube, due to mental status Exam - Constitutional General appearance: Present: severe distress - EENT Eyes: Present: miosis ENT: hearing decreased - Neck Neck: Present: supple, normal ROM - Respiratory Respiratory effort: labored Respiratory: bilateral: diminished, rhonchi - Cardiovascular Rhythm: other (Tachycardia, hypotensive,) - Extremities Extremities: pulses symmetrical, No edema Peripheral Pulses: abnormal (Capillary refill greater than 3.5 seconds) - Abdominal General gastrointestinal: Present: soft, non-tender, non-distended, normal bowel sounds Male genitourinary: Present: normal - Integumentary Integumentary: Present: dry, clammy, decreased turgor - Musculoskeletal Musculoskeletal: generalized weakness - Psychiatric Psychiatric: no appropriate mood/affect, no intact judgment & insight, no memory intact - Neurologic Neurologic: CNII-XII intact, focal deficits, no moves all extremities, no gait normal HEART Score - HEART Score Troponin: Troponin T 0.115 ng/mL (0.00-0.029) H* 07/28/20 08:48 Results - Labs CBC & Chem 7: 07/28/20 08:48 07/28/20 08:48 Labs: Abnormal lab results 07/28/20 07/28/20 07/28/20 Range/Units 08:48 08:48 08:48 WBC 17.0 H (4.5-11.0) K/mm3 RBC 2.77 L (3.65-5.03) M/mm3 Hgb 8.2 L (11.8-15.2) gm/dl Hct 26.5 L (35.5-45.6) % MCV 96 H (84-94) fl MCHC 31 L (32-34) % RDW 16.2 H (13.2-15.2) % PT 24.7 H (12.2-14.9) Sec. INR 2.17 H (0.87-1.13) ABG pO2 (80.0-90.0) mm Hg ABG Hemoglobin (14.0-18.0) gm/dl Sodium 135 L (137-145) mmol/L Potassium 3.5 L (3.6-5.0) mmol/L Chloride 97.6 L (98-107) mmol/L BUN 44 H (9-20) mg/dL Creatinine 1.6 H (0.8-1.3) mg/dL Glucose 431 H (75-100) mg/dL Lactic Acid (0.7-2.0) mmol/L Calcium 7.9 L (8.4-10.2) mg/dL AST 81 H (5-40) units/L Ammonia (25-60) umol/L Total Creatine Kinase 486 H (55-170) units/L Troponin T 0.115 H* (0.00-0.029) ng/mL Total Protein 5.6 L (6.3-8.2) g/dL Albumin 2.6 L (3.9-5) g/dL LDL Cholesterol Direct 44 L (50-130) mg/dL HDL Cholesterol 26 L (40-59) mg/dL Salicylates (2.8-20.0) mg/dL 07/28/20 07/28/20 07/28/20 Range/Units 08:48 09:44 09:44 WBC (4.5-11.0) K/mm3 RBC (3.65-5.03) M/mm3 Hgb (11.8-15.2) gm/dl Hct (35.5-45.6) % MCV (84-94) fl MCHC (32-34) % RDW (13.2-15.2) % PT (12.2-14.9) Sec. INR (0.87-1.13) ABG pO2 (80.0-90.0) mm Hg ABG Hemoglobin (14.0-18.0) gm/dl Sodium (137-145) mmol/L Potassium (3.6-5.0) mmol/L Chloride (98-107) mmol/L BUN (9-20) mg/dL Creatinine (0.8-1.3) mg/dL Glucose (75-100) mg/dL Lactic Acid 3.80 H* (0.7-2.0) mmol/L Calcium (8.4-10.2) mg/dL AST (5-40) units/L Ammonia 63.0 H (25-60) umol/L Total Creatine Kinase (55-170) units/L Troponin T (0.00-0.029) ng/mL Total Protein (6.3-8.2) g/dL Albumin (3.9-5) g/dL LDL Cholesterol Direct (50-130) mg/dL HDL Cholesterol (40-59) mg/dL Salicylates < 0.3 L (2.8-20.0) mg/dL 07/28/20 Range/Units 10:18 WBC (4.5-11.0) K/mm3 RBC (3.65-5.03) M/mm3 Hgb (11.8-15.2) gm/dl Hct (35.5-45.6) % MCV (84-94) fl MCHC (32-34) % RDW (13.2-15.2) % PT (12.2-14.9) Sec. INR (0.87-1.13) ABG pO2 78.0 L (80.0-90.0) mm Hg ABG Hemoglobin 7.6 L (14.0-18.0) gm/dl Sodium (137-145) mmol/L Potassium (3.6-5.0) mmol/L Chloride (98-107) mmol/L BUN (9-20) mg/dL Creatinine (0.8-1.3) mg/dL Glucose (75-100) mg/dL Lactic Acid (0.7-2.0) mmol/L Calcium (8.4-10.2) mg/dL AST (5-40) units/L Ammonia (25-60) umol/L Total Creatine Kinase (55-170) units/L Troponin T (0.00-0.029) ng/mL Total Protein (6.3-8.2) g/dL Albumin (3.9-5) g/dL LDL Cholesterol Direct (50-130) mg/dL HDL Cholesterol (40-59) mg/dL Salicylates (2.8-20.0) mg/dL Assessment and Plan - Patient Problems (1) Septic shock Current Visit: Yes Status: Acute Plan to address problem: Sepsis protocol: CBC, CMP, chest x-ray, urinalysis, IV fluid resuscitation therapy, IV antibiotic therapy, serial lactic acid level, IV pressor support to maintain mean arterial pressure greater than or equal to 65, monitor urine output every shift, blood culture, The high probability of a clinically significant, sudden or life threatening deterioration of the [cardiac, pulmonary, renal, infectious disease,] system(s) required my full and direct attention, intervention and personal management. The aggregate critical care time was [95] minutes. This time is in addition to time spent performing reported procedures but includes the following: [x] Data Review and interpretation [x] Patient assessment and monitoring of vital signs [x] Documentation [x] Medication orders and management (2) Acute respiratory failure Current Visit: Yes Status: Acute Qualifiers: Respiratory failure complication: hypoxia Qualified Code(s): J96.01 - Acute respiratory failure with hypoxia Plan to address problem: Wean vent as tolerated, did spontaneous breathing trial daily, daily arterial blood gas, sedation holiday, (3) Metabolic acidosis Current Visit: Yes Status: Acute Plan to address problem: IV fluid resuscitation therapy, BMP, repeat BMP in a.m., serial lactic acid level. (4) Toxic metabolic encephalopathy Current Visit: Yes Status: Acute Plan to address problem: CT head, neuro check, seizure precaution, aspiration precautions, fall precautions, treat sepsis, (5) Acute kidney injury (JEFFERSON) with acute tubular necrosis (ATN) Current Visit: Yes Status: Acute Plan to address problem: IV fluid resuscitation therapy, BMP, repeat BMP in a.m. to monitor serum creatinine as well as GFR. (6) Pneumonia Current Visit: Yes Status: Acute Qualifiers: Pneumonia type: aspiration pneumonia Plan to address problem: Pneumonia protocol: Chest x-ray, CBC, CMP, IV antibiotic therapy, blood cultures, (7) Quadriplegia Current Visit: Yes Status: Acute Plan to address problem: Supportive care, (8) DVT prophylaxis Current Visit: Yes Status: Acute Plan to address problem: SCD to bilateral lower extremities while in bed, prophylactic anticoagulation (9) Advance care planning Current Visit: Yes Status: Acute Plan to address problem: Disease education conducted, care plan discussed, diagnosis discussed, poor prognosis discussed, patient is full code, patient family Haydee Prather [phone] was counseled regarding prognosis. Patient family acknowledges understanding and agreed with care plan, +30 minutes.
--- NOTE | 2020-07-28 13:08 | Cat Scan Report ---
CT head/brain wo con INDICATION: Altered Mental Status pt on vent. TECHNIQUE: Routine CT head without contrast. All CT scans at this location are performed using CT dos e reduction for ALARA by means of automated exposure control. COMPARISON: None. FINDINGS: BRAIN / INTRACRANIAL CONTENTS: No acute hemorrhage, mass effect, midline shift, or hydrocephalus. No appreciable acute large territorial or lacunar infarct. No chronic infarct or focal atrophy. Normal b rain volume and ventricular/sulcal size for age. ORBITS: No significant abnormality of visualized orbits. SINUSES / MASTOIDS: Trace fluid in the maxillary sinuses. ADDITIONAL FINDINGS: None. IMPRESSION: 1. No acute intracranial abnormality on noncontrast CT of the brain. Signer Name: Maureen Davey MD Signed: 07/28/2020 1:03 PM Workstation Name: [id number]
--- NOTE | 2020-07-28 13:18 | Cat Scan Report ---
CT CERVICAL SPINE WITHOUT CONTRAST INDICATION / CLINICAL INFORMATION: Known history of C5 fracture. TECHNIQUE: Axial CT images were obtained through the cervical spine. Sagittal and coronal reformatted images wer e produced. All CT scans at this location are performed using CT dose reduction for ALARA by means of automated exposure control. COMPARISON: None available. FINDINGS: VERTEBRAE: No acute displaced fracture identified. Postsurgical change related to posterior decompres arnav and fixation with parallel rods and pedicle screws from C3-C6. No evidence of hardware loosening or failure. ALIGNMENT: No significant abnormality. DISC SPACES: Mild to moderate disc space narrowing throughout the cervical spine, most prominent at C 5-6. FACET JOINTS: Multilevel facet hypertrophy. CRANIOCERVICAL JUNCTION:No significant abnormality. SPINAL CANAL: No significant abnormality. PARASPINAL SOFT TISSUES: No significant abnormality. ADDITIONAL FINDINGS: Endotracheal and enteric tubes in place. There is what appears to be a displaced tooth in the posterior nasopharynx, just anterior to the clivus and craniocervical junction (series 605, image 32). LUNG APICES: Patchy airspace disease in the visualized left upper lobe, refer to separately dictated chest CT. IMPRESSION: 1. No acute fracture identified in the cervical spine. Postsurgical change from C3 through C6 without evidence of complication. 2. There is what appears to be a displaced tooth in the posterior nasopharynx, and clinical correlati on is recommended. Signer Name: Maureen Davey MD Signed: 07/28/2020 1:13 PM Workstation Name: [id number]
[2020-07-28] MEDS ORDERED: INSULIN REGULAR, HUMAN 100 UNITS/1 ML IV ONE (13:22)
--- NOTE | 2020-07-28 13:27 | Cat Scan Report ---
CT CHEST WITHOUT CONTRAST INDICATION / CLINICAL INFORMATION: Acute respiratory failure, sepsis. TECHNIQUE: Axial CT images were obtained through the chest without contrast. All CT scans at this location are p erformed using CT dose reduction for ALARA by means of automated exposure control. COMPARISON: None available. FINDINGS: HEART: No significant abnormality. THORACIC AORTA: No significant abnormality. MEDIASTINUM and ALBERT: No significant abnormality. LUNGS: There are filling defects noted in the left mainstem bronchus. There are moderate patchy airs pace opacities with a dependent/lower lung predominance. There is more focal nodular consolidative ai rspace opacity in the left lower lobe. PLEURA: No significant pleural effusion. No pneumothorax. ADDITIONAL FINDINGS: Endotracheal tube, enteric tube, and left-sided PICC in place. UPPER ABDOMEN: Refer to separately dictated CT abdomen pelvis. SKELETAL SYSTEM: No significant abnormality. IMPRESSION: 1. Moderate patchy bilateral airspace opacities are nonspecific and may reflect aspiration or multifo jaycob pneumonia. There is a more nodular consolidative component in the left lung base, with correspond ing density seen radiographically. Recommend chest radiograph in 6-12 weeks following treatment to en sure resolution. Signer Name: Maureen Davey MD Signed: 07/28/2020 1:23 PM Workstation Name: [id number]
--- NOTE | 2020-07-28 13:33 | Cat Scan Report ---
CT ABDOMEN AND PELVIS WITHOUT CONTRAST INDICATION / CLINICAL INFORMATION: Acute respiratory failure and sepsis. TECHNIQUE: Axial CT images were obtained through the abdomen and pelvis without IV contrast. All CT scans at [facility] location are performed using CT dose reduction for ALARA by means of automated exposure control. COMPARISON: None available. FINDINGS: LOWER CHEST: Refer to separately dictated chest CT. LIVER: No significant abnormality. GALLBLADDER: No significant abnormality. BILE DUCTS: No significant abnormality. PANCREAS: No significant abnormality. SPLEEN: No significant abnormality. ADRENALS: No significant abnormality. RIGHT KIDNEY and URETER: No significant abnormality. LEFT KIDNEY and URETER: No significant abnormality. STOMACH and SMALL BOWEL: No significant abnormality. Enteric tube and gastrostomy tube in place. COLON: Large colonic stool burden. APPENDIX: No significant abnormality. PERITONEUM: No free fluid. No free air. No fluid collection. LYMPH NODES: No significant adenopathy. AORTA and ARTERIES: No significant abnormality. IVC and VEINS: No significant abnormality. URINARY BLADDER: Underdistended with a Brennan catheter in place. Mild circumferential bladder wall thi ckening. Small amount of air in the bladder lumen is likely secondary to instrumentation. REPRODUCTIVE ORGANS: No significant abnormality. ADDITIONAL FINDINGS: None. SKELETAL SYSTEM: No significant abnormality. IMPRESSION: 1. No acute process identified within the abdomen or pelvis on noncontrast examination. Signer Name: Maureen Davey MD Signed: 07/28/2020 1:29 PM Workstation Name: [id number]
[2020-07-28] MEDS ORDERED: HYDROmorphone 1 MG/1 ML INJ IV PRN (14:27)
[2020-07-28] MEDS: NORepinephrine/NS 4 MG-250 ML 4 MG/250 ML BAG IV SCH (15:04)
[2020-07-28] MEDS: fentaNYL DRIP Premix 2,000 MCG/100 ML BAG IV SCH ×2 (15:07→23:03)
[2020-07-28] MEDS ORDERED: INSULIN REGULAR, HUMAN 100 UNITS/1 ML ONE (15:42)
[2020-07-28] MEDS: metroNIDAZOLE/NS 500 MG/100 ML 500 MG/100 ML BAG IV SCH (15:57)
[2020-07-28] MEDS: FAMOTIDINE 20 MG/2 ML INJ IV SCH ×2 (15:58→22:38)
[2020-07-28] MEDS ORDERED: ACETAMINOPHEN 650 MG RECT SUPP PR ONE (16:00)
[2020-07-28] MEDS ORDERED: cefTRIAXone/NS 2 GM/100 ML 2 GM/100 ML BAG IV ONE (16:00)
[2020-07-28] MEDS ORDERED: VANCOMYCIN 1,500 MG in SODIUM CHLORIDE 0.9% 500 ML 500 ML IV ONE (17:00)
[2020-07-28 17:42] LABS: Bacteria,Urine 1+ /HPF (Negative); Bilirubin,Urine NEG (Negative); Blood,Urine LG (Negative); Color,Urine Amber (Yellow); Hyaline Casts,Urine 5 /LPF; Mucus,Urine FEW /HPF
[2020-07-28 17:44] LABS: WBC,Urine > 182.0 /HPF (0.0-6.0)
--- NOTE | 2020-07-28 18:35 | Consultation ---
History of Present Illness Consult date: 07/28/20 Requesting physician: SHARRI LERNER Reason for consult: other (Acute Hypoxemic Respiratory Failure) History of present illness: PULMONARY/CCM CONSULT NOTE (Full dictation # [id number]) Please see dictated notes for full details Past History Past Medical History: other (See HPI) Past Surgical History: No surgical history, Other (Unable to obtain) Social history: single. denies: smoking, alcohol abuse, prescription drug abuse Family history: diabetes, hypertension Medications and Allergies Allergies Allergy/AdvReac Type Severity Reaction Status Date / Time No Known Allergies Allergy Unverified 07/28/20 15:17 Active Meds: Active Medications Acetaminophen (Acetaminophen 325 Mg Tab) 650 mg PO Q6H PRN PRN Reason: Pain, Mild (1-3) Albuterol (Albuterol 2.5 Mg/3 Ml Nebu) 2.5 mg IH Q3H PRN PRN Reason: Shortness Of Breath Famotidine (Famotidine 20 Mg/2 Ml Inj) 20 mg IV BID [place] Last Admin: 07/28/20 15:58 Dose: 20 mg Documented by: Fentanyl (Fentanyl 100 Mcg/2 Ml Inj) 50 mcg IV Q10MIN PRN PRN Reason: ANALGESIA Heparin Sodium (Porcine) (Heparin 5,000 Unit/1 Ml Vial) 5,000 unit SUB-Q Q12HR [place] Hydromorphone HCl (Hydromorphone 1 Mg/1 Ml Inj) 0.25 mg IV Q4H PRN PRN Reason: Pain, Moderate (4-6) Hydrophilic Ointment (Lip Therapy Vaseline) 1 applic TP Q2H PRN PRN Reason: Dry Lips Fentanyl Citrate (Fentanyl Drip Premix) 2,000 mcg in 100 mls @ 4.082 mls/hr IV TITR [place]; Protocol Last Admin: 07/28/20 15:07 Dose: 1 mcg/kg/hr, 4.082 mls/hr Documented by: Norepinephrine (Levophed Drip 4 Mg/Ns 250 Ml) 4 mg in 250 mls @ 7.5 mls/hr IV TITR [place]; Protocol Last Titration: 07/28/20 18:31 Dose: 10 mcg/min, 37.5 mls/hr Documented by: Levofloxacin/Dextrose (Levaquin 750mg/150ml) 750 mg in 150 mls @ 100 mls/hr IV Q24H [place]; Protocol Last Admin: 07/28/20 15:57 Dose: 100 mls/hr Documented by: Metronidazole (Flagyl 500 Mg/100 Ml) 500 mg in 100 mls @ 100 mls/hr IV Q8H [place]; Protocol Last Admin: 07/28/20 15:57 Dose: 100 mls/hr Documented by: Multi-Ingred Cream/Lotion/Oil/Oint (Mineral Oil/Petrolatum, White Ophth Oint 3.5 Gm) 1 applic OU Q4H PRN PRN Reason: Dry Eye(s) Senna/Docusate Sodium (Sennosides/Docusate Sodium 8.6/50 Mg Tab) 1 tab FEEDTUBE BID [place] Sodium Chloride (Sodium Chloride 0.9% 10 Ml Flush Syringe) 10 ml IV BID [place] Sodium Chloride (Sodium Chloride 0.9% 10 Ml Flush Syringe) 10 ml IV PRN PRN PRN Reason: LINE FLUSH Physical Examination Vital signs: Vital Signs Temp Pulse Resp BP Pulse Ox 106 F H 114 H 12 114/64 92 07/28/20 09:00 07/28/20 09:00 07/28/20 09:00 07/28/20 09:00 07/28/20 09:00 Results - Laboratory Findings CBC and BMP: 07/28/20 08:48 07/28/20 08:48 ABG ABG pH 7.447 pH Units (7.350-7.450) 07/28/20 10:18 ABG pCO2 34.1 mm Hg 07/28/20 10:18 ABG pO2 78.0 mm Hg (80.0-90.0) L 07/28/20 10:18 ABG O2 Saturation 96.8 % (95.0-99.0) 07/28/20 10:18 PT/INR, D-dimer PT 24.7 Sec. (12.2-14.9) H 07/28/20 08:48 INR 2.17 (0.87-1.13) H 07/28/20 08:48 Abnormal lab findings: Abnormal Labs 07/28/20 07/28/20 07/28/20 08:48 08:48 08:48 WBC 17.0 H RBC 2.77 L Hgb 8.2 L Hct 26.5 L MCV 96 H MCHC 31 L RDW 16.2 H PT 24.7 H INR 2.17 H ABG pO2 ABG Hemoglobin Sodium 135 L Potassium 3.5 L Chloride 97.6 L BUN 44 H Creatinine 1.6 H Glucose 431 H POC Glucose Lactic Acid Calcium 7.9 L AST 81 H Ammonia Total Creatine Kinase 486 H Troponin T 0.115 H* Total Protein 5.6 L Albumin 2.6 L LDL Cholesterol Direct 44 L HDL Cholesterol 26 L Urine WBC (Auto) Salicylates 07/28/20 07/28/20 07/28/20 08:48 09:44 09:44 WBC RBC Hgb Hct MCV MCHC RDW PT INR ABG pO2 ABG Hemoglobin Sodium Potassium Chloride BUN Creatinine Glucose POC Glucose Lactic Acid 3.80 H* Calcium AST Ammonia 63.0 H Total Creatine Kinase Troponin T Total Protein Albumin LDL Cholesterol Direct HDL Cholesterol Urine WBC (Auto) Salicylates < 0.3 L 07/28/20 07/28/20 07/28/20 10:18 14:38 15:58 WBC RBC Hgb Hct MCV MCHC RDW PT INR ABG pO2 78.0 L ABG Hemoglobin 7.6 L Sodium Potassium Chloride BUN Creatinine Glucose POC Glucose 265 H Lactic Acid 3.90 H* Calcium AST Ammonia Total Creatine Kinase Troponin T Total Protein Albumin LDL Cholesterol Direct HDL Cholesterol Urine WBC (Auto) Salicylates 07/28/20 Unknown WBC RBC Hgb Hct MCV MCHC RDW PT INR ABG pO2 ABG Hemoglobin Sodium Potassium Chloride BUN Creatinine Glucose POC Glucose Lactic Acid Calcium AST Ammonia Total Creatine Kinase Troponin T Total Protein Albumin LDL Cholesterol Direct HDL Cholesterol Urine WBC (Auto) > 182.0 H Salicylates
[2020-07-28] MEDS: SENNOSIDES/DOCUSATE SODIUM 8.6/50 MG TAB FEEDTUBE SCH ×2 (22:37→23:00)
[2020-07-28] MEDS: HEPARIN 5,000 UNIT/1 ML VIAL SUB-Q SCH (22:38)
[2020-07-28] MEDS ORDERED: SODIUM BICARB 8.4% 50 MEQ/50 ML SYRINGE IV ONE (23:53)
[2020-07-29] MEDS: SODIUM CHLORIDE 0.9% 1000 ML 1,000 ML IV SCH ×2 (00:02→09:39)
[2020-07-29] MEDS: metroNIDAZOLE/NS 500 MG/100 ML 500 MG/100 ML BAG IV SCH ×2 (00:18→08:38)
--- NOTE | 2020-07-29 00:49 | Consultation ---
DATE OF CONSULTATION: 07/28/2020 PULMONARY CRITICAL CARE CONSULTATION CONSULTING PHYSICIAN: Dr. Mika Marcial, ER physician. REASON FOR CONSULTATION: Acute hypoxemic respiratory failure, on mechanical ventilatory support. HISTORY OF PRESENT ILLNESS: The patient is a 69-year-old male with past medical history significant for history of quadriplegia, status post C-spine injury, who was brought in from the [facility] actually. Per the EMS staff, he was found with fever as by the [facility] staff this morning reported fevers as high as 106 degrees Fahrenheit. Upon arrival, EMS found the patient is in distress. In the Emergency Room, he was found to be septic. He was hypotensive. He was unable to protect his airway. He was intubated, RSI and a sepsis workup was started. On further evaluation, I also reviewed kidney injury and what is presumed to be a toxic metabolic encephalopathy. We are asked to assist with management. The history is that the patient has received both doses of the COVID-19 vaccine prior to this presentation. When I stopped by to see him, he was resting in bed. He was on a fentanyl drip at 4 mcg/kg per hour. He was riding the set rate of 30 per minute on the mechanical ventilator and otherwise had a flaccid paralysis to all extremities. This really is as much of the history of presentation as I have. I should mention the patient was also on a Levophed drip at 10 mcg per minute. PAST MEDICAL HISTORY: Again, history of quadriplegia, status post severe spinal canal stenosis at C4-C5. PAST SURGICAL HISTORY: The patient is status post cervical laminectomy and posterior cervical instrumentation of 3-6 vertebral fragment. It is unclear when this was done. Apparently, this seems to have happened in 05/29/2020. MEDICATIONS: He was on at the time I stopped by to see him, according to the medication administration record included the following: Tylenol 650 mg p.o. q.6 hours p.r.n. mild pain or fevers. All p.o. meds via his feeding tube. Albuterol 2.5 mg nebulized q.3 hours p.r.n. shortness of breath, Pepcid 20 mg IV b.i.d., fentanyl drip at 4 mcg/kg per minute, heparin 5000 units subQ q.12, Dilaudid 0.25 mg IV q.4 p.r.n. moderate pain, Levaquin 750 mg IV daily, Flagyl 500 mg IV q.8 hours, Levophed drip was going at 10 mcg per minute. ALLERGIES: No known drug allergies. DIET: Thin gentleman, acute weight loss or gain history is unknown. FAMILY AND SOCIAL HISTORY: Currently a resident of a alf facility. The family had denied alcohol, tobacco, or illicit drug use or abuse. Remote history is unknown. There is a family history of diabetes and hypertension. REVIEW OF SYSTEMS: Unobtainable secondary to the patient's medical and mental condition. Since he has been here, no gross hematochezia or melena, no gross hematuria, no hematemesis, no bloody tracheal secretions, no witnessed seizures. Review of systems otherwise unobtainable or as in the body of history above. PHYSICAL EXAMINATION: VITAL SIGNS: On presentation, temperature was 106 degrees Fahrenheit rectally with a pulse of 115, respiratory rate 22, blood pressure 67/38, O2 sats 100% inspired oxygen concentration at that time was not recorded. When I stopped by to see him O2 sats are 98% that was on the mechanical ventilator, assist control, tidal volumes 450, rate of 30, PEEP of 6 and 50% FIO2. GENERAL: An elderly looking chronically ill looking male with normocephalic, but with a cervical collar around the neck riding the set rate on the mechanical ventilator. HEAD, EYES, EARS, NOSE AND THROAT: Anicteric. No conjunctival erythema. Oropharynx was dry. ET tube was taped around 23-24 cm at the lips. Grossly, there were no palpable lymph nodes in the supraclavicular or submandibular lymph node chains. Unable to examine the thyroid region well. LUNGS: Auscultation of lung sorensen significant mostly for diminished bilateral breath sounds, prolonged expiratory phase, faint inspiratory rhonchi, no wheezing. HEART: Sounds 1 and 2 are heard. There were regular rate and rhythm at the time of my evaluation without overt rubs or murmurs. ABDOMEN: Soft, flat, bowel sounds are positive, nontender, no palpable hepatosplenomegaly. He has a PEG tube in place without significant bleeding at the stoma. EXTREMITIES: Without overt digital clubbing or cyanosis. Trace pedal edema. Pedal pulses are 2+ bilaterally. NEUROLOGIC: Pupils were equal, round, about 3 mm, reactive to light. Extraocular muscle movements could not be assessed. He was quadriplegic. SKIN: Poor turgor in the areas examined; however, without overt cellulitis. He did have xeroderma type rash to the lower extremities in particular. Please see the wound care nurses' notes for full description of his skin. PSYCHIATRIC: Mood and affect could not be assessed. LABORATORY DATA: From my review are as follows: Admission white cell count 17,000, hemoglobin 8.3, hematocrit 26.5, platelet count 265. No manual differential. INR was 2.17. Arterial blood gas showed a pH of 7.45, pCO2 of 34, pO2 of 78. It is unclear what the settings were at that time. Serum sodium 135, potassium 3.5, chloride 98, bicarbonate 26, BUN 44, creatinine 1.6, glucose was 431. Lactic acid level was 3.8. AST elevated at 81. CPK was up at 486. Troponin 0.115. Albumin low at 2.6. Urinalysis, large white cells greater than ____ white cells per high power field, large leukocyte esterase, 1+ bacteria. and alcohol level was nondetectable. Two sets of blood cultures are no growth to date. Radiographic studies have been reviewed. In particular, he had a CT scan of his head, no acute intracranial process. A CT scan of the neck, no acute fracture. Postsurgical changes from C3-C6. CT scan of his chest was also done. I have reviewed it. It was a noncontrast CT scan, difficult to evaluate the mediastinum. The lung windows reveal patchy bilateral pulmonary infiltrates, mostly in the dependent areas and the bases, and area of organizing consolidation probably in the left lower lobe region. No gross pneumothorax, no gross bony fracture. ASSESSMENT: 1. Acute possibly on chronic toxic metabolic encephalopathy. 2. Acute hypoxemic respiratory failure, on mechanical ventilatory support. 3. Severe sepsis with shock, presumably secondary to aspiration pneumonia. 4. Aspiration pneumonia, bilateral. 5. Urinary tract infection. 6. History of quadriplegia. 7. Leukocytosis. 8. Anemia that is microcytic. 9. Coagulopathy. INR 2.17 at presentation. 10. Mild hypokalemia. 11. Acute kidney injury. 12. Metabolic lactic acidosis. 13. Non-ST elevation myocardial infarction. 14. Adult failure to thrive. 15. Moderate to severe protein calorie malnutrition. PLAN: We will keep him on full mechanical ventilatory support. Ventilator-associated pneumonia bundle has been introduced. Oxygen will be weaned to keep sats greater than or equal to about 92%. Aspiration precautions included will be reducing the set rate to 20 per minute and repeat the arterial blood gas after about a couple of hours and make further adjustments from there. Enteral nutrition will be the feeding modality of choice. He has a feeding tube in place. I do agree with broad spectrum antibiotic therapy empirically to cover also healthcare-associated pneumonia. I will, however, also consult Infectious Disease physician. I will repeat the lactic acid level. I will get procalcitonin level, CRP levels to help guide clinical decision making. Levophed will be weaned to keep mean arterial pressures greater than or equal to about 65 mmHg. Gentle volume hydration will also be continued for the acute kidney injury. I will go with normal saline and we will run it at 100 mL per hour for about 2 liters initially, 2-3 liters and then reevaluate. I believe he received a sepsis resuscitation at presentation. He is also appropriately on GI prophylaxis. He is on heparin. I will hold that for now with a plan to resume, hold the next two doses so. Repeat his INR in the morning since he is already therapeutic on the INR at presentation. Flu and pneumonia vaccination will be addressed per protocol. Acute coronary syndrome workup will be per the attending physician. Cardiology consultation may be of benefit. Again, flu and pneumonia vaccination will be addressed per protocol. Thank you very much for the consult. We will follow along and make further recommendations as picture progresses/becomes clearer. He is critically ill on life-sustaining interventions including full mechanical ventilatory support at high risk of from cardiopulmonary and neurologic system decompensation as well as renal system. At this time, I was spent about 35-40 minutes of critical care time without overlap and excluding any procedural time that may be necessary. TID: [id number] RECEIPT: [id number] ISABEL/WINIFRED AVILEZ
[2020-07-29] MEDS: NORepinephrine/NS 4 MG-250 ML 4 MG/250 ML BAG IV SCH ×2 (02:08→13:07)
--- NOTE | 2020-07-29 06:35 | XRay Report ---
CHEST 1 VIEW, 07/29/2020 512 AM CLINICAL INFORMATION/INDICATION: Respiratory failure COMPARISON: Chest radiograph, 07/28/2020 at 9:41 AM FINDINGS: SUPPORT DEVICES: Support tubes and lines project in stable position. HEART: The cardiac silhouette is normal in size. LUNGS/PLEURA: Faint bilateral patchy pulmonary opacities have not significantly changed when allowing for differences in technique. There is no evidence of pneumothorax or large pleural effusion. ADDITIONAL FINDINGS: No additional acute findings. IMPRESSION: 1. Stable faint bilateral pulmonary opacities. Signer Name: Jennifer Canchola MD Signed: 07/29/2020 6:31 AM Workstation Name: [id number]
[2020-07-29 09:21] LABS: Alanine Aminotransferase 74 units/L (7-56); Albumin 2.4 g/dL (3.9-5); BUN/Creatinine Ratio 34; Blood Urea Nitrogen 41 mg/dL (9-20); Calcium 6.5 mg/dL (8.4-10.2); Hemolysis Index 3
--- NOTE | 2020-07-29 09:29 | Progress Note ---
Assessment and Plan Assessment and plan: 69 YO Male Residential Facility Resident at [facility] with Quadraplegia S/P C spine injury presents to ED for evaluation. Patient is intubated and ambulatory support at time of my evaluation is unable to provide history. Patient history via by EMS staff, ED staff, prison facility staff, as well as patient family who was made available by telephone for interview. As per family members the patient was found to have fever today by prison facility staff. Staff subsequently notified family and reported that patient was being transported to hospital for evaluation. EMS was notified and upon arrival the patient was found to be in distress and with fever to 106 F. Patient [facility] to [facility] for further care and evaluation of the aforementioned symptoms. The patient was seen and evaluated in the emergency department. All lab and imaging studies reviewed. The patient was found to have sepsis, complicated by hypotension with a systolic blood pressure in the 70s with a heart rate in the 150s. The patient was also found to be unable to protect his airway. The patient was subsequently intubated and placed on ventilatory support and initiated on sepsis protocol. Patient underwent chest x-ray which revealed pneumonia. Patient also found to have JEFFERSON with ATN, hyponatremia, toxic metabolic encephalopathy, and acidosis. Patient admitted to ICU due to increased risk for worsening symptoms and development of multiple organ system failure. Critical care team consulted in ED. No further history is obtainable. As per family the patient received both doses of the Pfizer coronavirus vaccine. No prior admission for review. No medication listed at time of admission for reconciliation. Advanced care planning conducted in ED. 07/29: Remains with encephalopathy and respiratory failure remains on full ventilatory support septic shock on pressors. CT concerning for possible throat in the nasopharynx area. This was not seen on the CT head. Will reevaluate for any dentition abnormality. Otherwise continue current management await ID input. Patient is right-handed event at the same rate that is set. Sales Team Recruiter following and monitoring. (1) Septic shock Current Visit: Yes Status: Acute Plan to address problem: Sepsis protocol: CBC, CMP, chest x-ray, urinalysis, IV fluid resuscitation therapy, IV antibiotic therapy, serial lactic acid level, IV pressor support to maintain mean arterial pressure greater than or equal to 65, monitor urine output every shift, blood culture, (2) Acute respiratory failure Current Visit: Yes Status: Acute Qualifiers: Respiratory failure complication: hypoxia Qualified Code(s): J96.01 - Acute respiratory failure with hypoxia Plan to address problem: Wean vent as tolerated, did spontaneous breathing trial daily, daily arterial blood gas, sedation holiday, (3) Metabolic acidosis Current Visit: Yes Status: Acute Plan to address problem: IV fluid resuscitation therapy, BMP, repeat BMP in a.m., serial lactic acid level. (4) Toxic metabolic encephalopathy Current Visit: Yes Status: Acute Plan to address problem: CT head, neuro check, seizure precaution, aspiration precautions, fall precautions, treat sepsis, (5) Acute kidney injury (JEFFERSON) with acute tubular necrosis (ATN) Current Visit: Yes Status: Acute Plan to address problem: IV fluid resuscitation therapy, BMP, repeat BMP in a.m. to monitor serum creatinine as well as GFR. (6) Pneumonia Current Visit: Yes Status: Acute Qualifiers: Pneumonia type: aspiration pneumonia Plan to address problem: Pneumonia protocol: Chest x-ray, CBC, CMP, IV antibiotic therapy, blood cultures, (7) Quadriplegia Current Visit: Yes Status: Acute Plan to address problem: Supportive care, (8) DVT prophylaxis Current Visit: Yes Status: Acute Plan to address problem: SCD to bilateral lower extremities while in bed, prophylactic anticoagulation (9) Advance care planning Current Visit: Yes Status: Acute Plan to address problem: Disease education conducted, care plan discussed, diagnosis discussed, poor prognosis discussed, patient is full code, patient family Haydee Prather [phone] was counseled regarding prognosis. Patient family acknowledges understanding and agreed with care plan, +30 minutes. The high probability of a clinically significant, sudden or life threatening deterioration of the [cardiac, pulmonary, renal, infectious disease,] system(s) required my full and direct attention, intervention and personal management. The aggregate critical care time was [95] minutes. This time is in addition to time spent performing reported procedures but includes the following: [x] Data Review and interpretation [x] Patient assessment and monitoring of vital signs [x] Documentation [x] Medication orders and management History Interval history: Patient remains from on full ventilatory support on my examination this morning has pupillary reflex but not following any commands Hospitalist Physical - Constitutional Vitals: Temp Pulse Resp BP Pulse Ox 97.9 F 78 18 113/73 100 07/29/20 07:00 07/29/20 07:17 07/28/20 17:59 07/29/20 07:17 07/29/20 07:17 General appearance: Present: severe distress - EENT Eyes: Present: PERRL - Neck Neck: Present: supple - Respiratory Respiratory effort: labored Respiratory: bilateral: diminished - Cardiovascular Rhythm: regular Heart Sounds: Present: S1 & S2 - Extremities Extremities: no ischemia, pulses intact Peripheral Pulses: within normal limits - Abdominal General gastrointestinal: soft, non-tender - Integumentary Integumentary: Present: warm, dry - Psychiatric Psychiatric: appropriate mood/affect, intact judgment & insight - Neurologic Neurologic: CNII-XII intact - Allied Health Allied health notes reviewed: nursing HEART Score - HEART Score Troponin: Troponin T 0.115 ng/mL (0.00-0.029) H* 07/28/20 08:48 Results - Labs CBC & Chem 7: 08/07/20 04:05 08/07/20 04:05 Labs: Laboratory Last Values WBC 17.0 K/mm3 (4.5-11.0) H 07/28/20 08:48 RBC 2.77 M/mm3 (3.65-5.03) L 07/28/20 08:48 Hgb 8.2 gm/dl (11.8-15.2) L 07/28/20 08:48 Hct 26.5 % (35.5-45.6) L 07/28/20 08:48 MCV 96 fl (84-94) H 07/28/20 08:48 MCH 30 pg (28-32) 07/28/20 08:48 MCHC 31 % (32-34) L 07/28/20 08:48 RDW 16.2 % (13.2-15.2) H 07/28/20 08:48 Plt Count 265 K/mm3 (140-440) 07/28/20 08:48 Lymph % (Auto) [employer] 07/28/20 08:48 [place] % (Auto) [employer] 07/28/20 08:48 Eos % (Auto) [employer] 07/28/20 08:48 Baso % (Auto) [employer] 07/28/20 08:48 Lymph # (Auto) [employer] 07/28/20 08:48 [place] # (Auto) [employer] 07/28/20 08:48 Eos # (Auto) [employer] 07/28/20 08:48 Baso # (Auto) [employer] 07/28/20 08:48 Seg Neutrophils % [employer] 07/28/20 08:48 Seg Neutrophils # [employer] 07/28/20 08:48 PT 24.7 Sec. (12.2-14.9) H 07/28/20 08:48 INR 2.17 (0.87-1.13) H 07/28/20 08:48 APTT 34.7 Sec. (24.2-36.6) 07/28/20 08:48 ABG pH 7.212 (7.320-7.450) L 07/29/20 04:02 POC ABG pCO2 52.5 mmHg (32.0-48.0) H 07/29/20 04:02 ABG pCO2 34.1 mm Hg 07/28/20 10:18 POC ABG pO2 128.3 mmHg (83-108) H 07/29/20 04:02 ABG pO2 78.0 mm Hg (80.0-90.0) L 07/28/20 10:18 POC ABG HCO3 20.6 07/29/20 04:02 ABG HCO3 23.0 mmol/L (20.0-26.0) 07/28/20 10:18 ABG O2 Saturation 98.5 (0-100) 07/29/20 04:02 POC ABG Base Excess -7.2 07/29/20 04:02 ABG Base Excess -0.8 mmol/L (-2.0-3.0) 07/28/20 10:18 ABG Hemoglobin 10.5 (12.0-17.5) L 07/29/20 04:02 ABG Oxyhemoglobin 97.6 (94-98) 07/29/20 04:02 ABG Carboxyhemoglobin 1.3 % (0.0-5.0) 07/28/20 10:18 ABG Methemoglobin 0.3 (0.0-1.5) 07/29/20 04:02 ABG Sodium 140.8 mmol/L (136.0-145.0) 07/29/20 04:02 ABG Potassium 3.9 mmol/L (3.40-4.50) 07/29/20 04:02 ABG Chloride 108.0 mmol/L (98-107) H 07/29/20 04:02 ABG Glucose 239 mg/dL (65-95) H 07/29/20 04:02 VBG pH 7.377 (7.320-7.420) 07/28/20 09:44 Oxyhemoglobin 95.0 % (95.0-99.0) 07/28/20 10:18 Carboxyhemoglobin 0.6 (0.5-1.5) 07/29/20 04:02 FiO2 0.50 % 07/28/20 10:18 FiO2 % 60.0 07/29/20 04:02 Sodium 144 mmol/L (137-145) D 07/29/20 Unknown Potassium 4.0 mmol/L (3.6-5.0) 07/29/20 Unknown Chloride 108.4 mmol/L (98-107) H 07/29/20 Unknown Carbon Dioxide 21 mmol/L (22-30) L 07/29/20 Unknown Anion Gap 19 mmol/L 07/29/20 Unknown BUN 41 mg/dL (9-20) H 07/29/20 Unknown Creatinine 1.2 mg/dL (0.8-1.3) 07/29/20 Unknown Estimated GFR > 60 ml/min 07/29/20 Unknown BUN/Creatinine Ratio 34 % 07/29/20 Unknown Glucose 217 mg/dL (75-100) H 07/29/20 Unknown POC Glucose 265 mg/dL (70-105) H 07/28/20 14:38 Lactic Acid 2.70 mmol/L (0.7-2.0) H* 07/29/20 Unknown Calcium 6.5 mg/dL (8.4-10.2) L D 07/29/20 Unknown Phosphorus 5.40 mg/dL (2.5-4.5) H 07/28/20 19:50 Magnesium 1.70 mg/dL (1.7-2.3) 07/28/20 19:50 Total Bilirubin 0.20 mg/dL (0.1-1.2) 07/29/20 Unknown AST 104 units/L (5-40) H 07/29/20 Unknown ALT 74 units/L (7-56) H 07/29/20 Unknown Alkaline Phosphatase 68 units/L (35-129) 07/29/20 Unknown Ammonia 63.0 umol/L (25-60) H 07/28/20 08:48 Total Creatine Kinase 486 units/L (55-170) H 07/28/20 08:48 Troponin T 0.115 ng/mL (0.00-0.029) H* 07/28/20 08:48 C-Reactive Protein 9.00 mg/dL (0.00-1.30) H 07/28/20 19:50 Total Protein 5.1 g/dL (6.3-8.2) L 07/29/20 Unknown Albumin 2.4 g/dL (3.9-5) L 07/29/20 Unknown Albumin/Globulin Ratio 0.9 % 07/29/20 Unknown Triglycerides 63 mg/dL (2-149) 07/28/20 08:48 Cholesterol 80 mg/dL (50-199) 07/28/20 08:48 LDL Cholesterol Direct 44 mg/dL (50-130) L 07/28/20 08:48 HDL Cholesterol 26 mg/dL (40-59) L 07/28/20 08:48 Cholesterol/HDL Ratio 3.07 % 07/28/20 08:48 TSH 2.450 mlU/mL (0.270-4.200) 07/28/20 08:48 Arterial Blood Glucose 239 mg/dL (65-95) H 07/29/20 04:02 Arterial Blood Ionized Calcium 4.0 mg/dL (4.6-5.3) L 07/29/20 04:02 Urine Color Linette (Yellow) 07/28/20 Unknown Urine Turbidity Cloudy (Clear) 07/28/20 Unknown Urine pH 5.0 (5.0-7.0) 07/28/20 Unknown Ur Specific Ramona 1.018 (1.003-1.030) 07/28/20 Unknown Urine Protein 100 mg/dl mg/dL (Negative) 07/28/20 Unknown Urine Glucose (UA) Neg mg/dL (Negative) 07/28/20 Unknown Urine Ketones Neg mg/dL (Negative) 07/28/20 Unknown Urine Blood Lg (Negative) 07/28/20 Unknown Urine Nitrite Neg (Negative) 07/28/20 Unknown Urine Bilirubin Neg (Negative) 07/28/20 Unknown Urine Urobilinogen 2.0 mg/dL (<2.0) 07/28/20 Unknown Ur Leukocyte Esterase Lg (Negative) 07/28/20 Unknown Urine WBC (Auto) > 182.0 /HPF (0.0-6.0) H 07/28/20 Unknown Urine RBC (Auto) 30.0 /HPF (0.0-6.0) 07/28/20 Unknown U Epithel Cells (Auto) 2.0 /HPF (0-13.0) 07/28/20 Unknown Urine Bacteria (Auto) 1+ /HPF (Negative) 07/28/20 Unknown Ur Transition Epith Cell 4 /HPF 07/28/20 Unknown Hyaline Casts 5 /LPF 07/28/20 Unknown Urine Mucus Few /HPF 07/28/20 Unknown Salicylates < 0.3 mg/dL (2.8-20.0) L 07/28/20 09:44 Plasma/Serum Alcohol < 0.01 % (0-0.07) 07/28/20 09:44 Blood Type O POSITIVE 07/28/20 08:48 Antibody Screen Negative 07/28/20 08:48 Microbiology: Microbiology 07/28/20 10:03 Peripheral/Venous Blood Culture - Preliminary Culture in Progress 07/28/20 10:03 Peripheral/Venous Blood Culture - Preliminary Culture in Progress Brennan/IV: Voiding Method Indwelling Catheter Active Medications - Current Medications Current Medications: Generic Name Dose Route Start Last Admin Trade Name Freq PRN Reason Stop Dose Admin Acetaminophen 650 mg 07/28/20 14:27 Acetaminophen 325 Mg Tab PO Q6H PRN Pain, Mild (1-3) Albuterol 2.5 mg 07/28/20 14:27 Albuterol 2.5 Mg/3 Ml Nebu IH Q3H PRN Shortness Of Breath Famotidine 20 mg 07/28/20 10:00 07/28/20 22:38 Famotidine 20 Mg/2 Ml Inj IV 20 mg BID [place] Administration Fentanyl 50 mcg 07/28/20 09:30 Fentanyl 100 Mcg/2 Ml Inj IV Q10MIN PRN ANALGESIA Heparin Sodium (Porcine) 5,000 unit 07/28/20 22:00 07/28/20 22:38 Heparin 5,000 Unit/1 Ml Vial SUB-Q 5,000 unit Q12HR YK Administration Hydromorphone HCl 0.25 mg 07/28/20 14:27 Hydromorphone 1 Mg/1 Ml Inj IV Q4H PRN Pain, Moderate (4-6) Hydrophilic Ointment 1 applic 07/28/20 09:30 Lip Therapy Vaseline TP Q2H PRN Dry Lips Fentanyl Citrate 2,000 mcg in 100 mls @ 4.082 mls/hr 07/28/20 16:00 07/29/20 02:07 Fentanyl Drip Premix IV 1 mcg/kg/hr TITR [place] 4.082 mls/hr Titration Protocol 1 MCG/KG/HR Norepinephrine 4 mg in 250 mls @ 7.5 mls/hr 07/28/20 10:00 07/29/20 02:08 Levophed Drip 4 Mg/Ns 250 Ml IV 8 mcg/min TITR [place] 30 mls/hr Administration Protocol 2 MCG/MIN Levofloxacin/Dextrose 750 mg in 150 mls @ 100 mls/hr 07/28/20 16:00 07/28/20 15:57 Levaquin 750mg/150ml IV 100 mls/hr Q24H [place] Administration Protocol Metronidazole 500 mg in 100 mls @ 100 mls/hr 07/28/20 16:00 07/29/20 00:18 Flagyl 500 Mg/100 Ml IV 100 mls/hr Q8H [place] Administration Protocol Sodium Chloride 1,000 mls @ 100 mls/hr 07/28/20 20:15 07/29/20 00:02 Nacl 0.9% 1000 Ml IV 07/31/20 06:14 100 mls/hr DIRECT [place] Administration Multi-Ingred Cream/Lotion/Oil/Oint 1 applic 07/28/20 09:30 Mineral Oil/Petrolatum, White Ophth Oint 3.5 Gm OU Q4H PRN Dry Eye(s) Senna/Docusate Sodium 1 tab 07/28/20 22:00 07/28/20 23:00 Sennosides/Docusate Sodium 8.6/50 Mg Tab FEEDTUBE Not Given BID [place] Sodium Chloride 10 ml 07/28/20 22:00 07/28/20 22:37 Sodium Chloride 0.9% 10 Ml Flush Syringe IV 10 ml BID [place] Administration Sodium Chloride 10 ml 07/28/20 14:27 Sodium Chloride 0.9% 10 Ml Flush Syringe IV PRN PRN LINE FLUSH
[2020-07-29] MEDS: SENNOSIDES/DOCUSATE SODIUM 8.6/50 MG TAB FEEDTUBE SCH ×2 (09:38→21:26)
[2020-07-29] MEDS: FAMOTIDINE 20 MG/2 ML INJ IV SCH ×2 (09:38→21:26)
[2020-07-29] MEDS: HEPARIN 5,000 UNIT/1 ML VIAL SUB-Q SCH ×2 (09:38→21:26)
[2020-07-29 09:48] LABS: Hematocrit 28.6 % (35.5-45.6); Hemoglobin 9.7 gm/dl (11.8-15.2); Mean Corpuscular HGB Conc 34 % (32-34); Mean Corpuscular Volume 94 fl (84-94); Platelet Count 190 K/mm3 (140-440); Red Blood Count 3.05 M/mm3 (3.65-5.03); Red Cell Distribution Width 16.1 % (13.2-15.2)
[2020-07-29] MEDS ORDERED: SIMPLE SYRUP 15 ML FEEDTUBE PRN ×2 (09:55)
[2020-07-29] MEDS ORDERED: SODIUM BICARBONATE 325 MG TAB FEEDTUBE PRN (09:55)
[2020-07-29] MEDS ORDERED: LIPASE 10,500/PROTEASE 25,000/AMYLASE 43,750 (UNITS) DR CAP FEEDTUBE PRN (09:55)
[2020-07-29 11:07] LABS: Band Neutrophils # (Manual) 0.4 K/mm3; Total Cells Counted 100
[2020-07-29 11:09] LABS: Platelet Estimate Consistent w Auto; RBC Morphology Normal
[2020-07-29] MEDS ORDERED: VANCOMYCIN 1,250 MG in SODIUM CHLORIDE 0.9% 500 ML 500 ML IV ONE (13:59)
[2020-07-29] MEDS ORDERED: VANCOMYCIN PHARMACY TO DOSE IV SCH (14:00)
--- NOTE | 2020-07-29 14:03 | Consultation ---
History of Present Illness - Reason for Consult Consult date: 07/29/20 septic shock Requesting physician: GINI VILLA - History of Present Illness The patient is a 69-year-old alf resident with quadriplegia, spinal cord injury, was brought in due to fever and sepsis. Patient was intubated in the ER, unable to provide any history. Notably, patient is status post COVID-19 vaccination. Had a T-max of 106.0 F on admission, afebrile since then. Labs revealed mixed acidosis, initial leukocytosis which has improved. Transaminitis, elevated procalcitonin. UA showed significant pyuria CT chest with patchy airspace disease suggestive of possible aspiration. Review of Systems: Cannot be obtained due to mentation. Past History Past Medical History: other (See HPI) Past Surgical History: No surgical history, Other (Unable to obtain) Social history: single. denies: smoking, alcohol abuse, prescription drug abuse Family history: diabetes, hypertension Medications and Allergies Allergies Allergy/AdvReac Type Severity Reaction Status Date / Time No Known Allergies Allergy Unverified 07/28/20 15:17 Active Meds: Active Medications Acetaminophen (Acetaminophen 325 Mg Tab) 650 mg PO Q6H PRN PRN Reason: Pain, Mild (1-3) Albuterol (Albuterol 2.5 Mg/3 Ml Nebu) 2.5 mg IH Q3H PRN PRN Reason: Shortness Of Breath Lipase/Protease/Amylase (Lipase 10,500/Protease 25,000/Amylase 43,750 (Units) Dr Velasquez) 1 each FEEDTUBE PRN PRN PRN Reason: For Clogged Feeding Tube Famotidine (Famotidine 20 Mg/2 Ml Inj) 20 mg IV BID [facility] Last Admin: 07/29/20 09:38 Dose: 20 mg Documented by: Fentanyl (Fentanyl 100 Mcg/2 Ml Inj) 50 mcg IV Q10MIN PRN PRN Reason: ANALGESIA Heparin Sodium (Porcine) (Heparin 5,000 Unit/1 Ml Vial) 5,000 unit SUB-Q Q12HR [facility] Last Admin: 07/29/20 09:38 Dose: 5,000 unit Documented by: Hydromorphone HCl (Hydromorphone 1 Mg/1 Ml Inj) 0.25 mg IV Q4H PRN PRN Reason: Pain, Moderate (4-6) Hydrophilic Ointment (Lip Therapy Vaseline) 1 applic TP Q2H PRN PRN Reason: Dry Lips Fentanyl Citrate (Fentanyl Drip Premix) 2,000 mcg in 100 mls @ 4.082 mls/hr IV TITR [place]; Protocol Last Titration: 07/29/20 08:00 Dose: 0 mcg/kg/hr, 0 mls/hr Documented by: Norepinephrine (Levophed Drip 4 Mg/Ns 250 Ml) 4 mg in 250 mls @ 7.5 mls/hr IV TITR [place]; Protocol Last Admin: 07/29/20 13:07 Dose: 2 mcg/min, 7.5 mls/hr Documented by: Sodium Chloride (Nacl 0.9% 1000 Ml) 1,000 mls @ 100 mls/hr IV DIRECT [place] Stop: 07/31/20 06:14 Last Admin: 07/29/20 09:39 Dose: 100 mls/hr Documented by: Vancomycin HCl 1,250 mg/ (Sodium Chloride) 525 mls @ 333 mls/hr IV ONCE ONE; Protocol Stop: 07/29/20 15:29 MEROPENEM/NS 1 GRAM/100 ML (Merrem/Ns 1 Gram/100 Ml) 1 gram in 100 mls @ 100 mls/hr IV Q8H [place]; Protocol Multi-Ingred Cream/Lotion/Oil/Oint (Mineral Oil/Petrolatum, White Ophth Oint 3.5 Gm) 1 applic OU Q4H PRN PRN Reason: Dry Eye(s) Senna/Docusate Sodium (Sennosides/Docusate Sodium 8.6/50 Mg Tab) 1 tab FEEDTUBE BID [place] Last Admin: 07/29/20 09:38 Dose: 1 tab Documented by: Simple Syrup (Simple Syrup 15 Ml) 15 ml FEEDTUBE PRN PRN PRN Reason: Hypoglycemia Simple Syrup (Simple Syrup 15 Ml) 30 ml FEEDTUBE PRN PRN PRN Reason: Hypoglycemia Sodium Bicarbonate (Sodium Bicarbonate 325 Mg Tab) 325 mg FEEDTUBE PRN PRN PRN Reason: For Clogged Feeding Tube Sodium Chloride (Sodium Chloride 0.9% 10 Ml Flush Syringe) 10 ml IV BID [facility] Last Admin: 07/29/20 09:39 Dose: 10 ml Documented by: Sodium Chloride (Sodium Chloride 0.9% 10 Ml Flush Syringe) 10 ml IV PRN PRN PRN Reason: LINE FLUSH Physical Examination - Physical Exam Narrative exam: Physical Exam: Constitutional: sedated, intubated, on the vent Head, Ears, Nose: Normocephalic, atraumatic. External ears, nose normal Eyes: Conjunctivae/corneas clear. No icterus. No ptosis. Neck: intubated. Cervical collar present Oral: intubated Cardiovascular: S1, S2 + Respiratory: AE fair bilaterally and equal GI: Soft, bowel sounds + Musculoskeletal: No pedal edema, no cyanosis. Skin: Sacral decubitus with dressing Hem/Lymphatic: No palpable cervical or supraclavicular nodes. No lymphangitis Psych: no agitation Neurological: sedated, intubated, on the vent, exam limited - Constitutional Vitals: Vital Signs Temp Pulse Resp BP Pulse Ox 97.4 F L 106 H 18 102/65 100 07/29/20 13:21 07/29/20 11:15 07/28/20 17:59 07/29/20 11:15 07/29/20 11:15 Temperature -Last 24 Hours Temperature 97.4 F Temperature 97.9 F Temperature 97.4 F Temperature 97.9 F Temperature 97.6 F Temperature 106.0 F Results - Labs CBC & Chem 7: 07/29/20 Unknown 07/29/20 Unknown Labs: Abnormal lab results 07/28/20 07/28/20 07/28/20 Range/Units 14:38 15:58 19:50 RBC (3.65-5.03) M/mm3 Hgb (11.8-15.2) gm/dl Hct (35.5-45.6) % RDW (13.2-15.2) % Seg Neuts % (Manual) (40.0-70.0) % Lymphocytes % (Manual) (13.4-35.0) % Lymphocytes # (Manual) (1.2-5.4) K/mm3 ABG pH (7.320-7.450) POC ABG pCO2 (32.0-48.0) mmHg POC ABG pO2 (83-108) mmHg ABG Hemoglobin (12.0-17.5) ABG Chloride (98-107) mmol/L ABG Glucose (65-95) mg/dL Carboxyhemoglobin (0.5-1.5) Chloride (98-107) mmol/L Carbon Dioxide (22-30) mmol/L BUN (9-20) mg/dL Glucose (75-100) mg/dL POC Glucose 265 H (70-105) mg/dL Lactic Acid 3.90 H* (0.7-2.0) mmol/L Calcium (8.4-10.2) mg/dL Phosphorus 5.40 H (2.5-4.5) mg/dL AST (5-40) units/L ALT (7-56) units/L C-Reactive Protein 9.00 H (0.00-1.30) mg/dL Total Protein (6.3-8.2) g/dL Albumin (3.9-5) g/dL Arterial Blood Glucose (65-95) mg/dL Arterial Blood Ionized Calcium (4.6-5.3) mg/dL Urine WBC (Auto) (0.0-6.0) /HPF 07/28/20 07/28/20 07/29/20 Range/Units 21:00 Unknown 04:02 RBC (3.65-5.03) M/mm3 Hgb (11.8-15.2) gm/dl Hct (35.5-45.6) % RDW (13.2-15.2) % Seg Neuts % (Manual) (40.0-70.0) % Lymphocytes % (Manual) (13.4-35.0) % Lymphocytes # (Manual) (1.2-5.4) K/mm3 ABG pH 7.107 L 7.212 L (7.320-7.450) POC ABG pCO2 65.6 H 52.5 H (32.0-48.0) mmHg POC ABG pO2 128.3 H (83-108) mmHg ABG Hemoglobin 9.9 L 10.5 L (12.0-17.5) ABG Chloride 108.0 H 108.0 H (98-107) mmol/L ABG Glucose 299 H 239 H (65-95) mg/dL Carboxyhemoglobin 0.2 L (0.5-1.5) Chloride (98-107) mmol/L Carbon Dioxide (22-30) mmol/L BUN (9-20) mg/dL Glucose (75-100) mg/dL POC Glucose (70-105) mg/dL Lactic Acid (0.7-2.0) mmol/L Calcium (8.4-10.2) mg/dL Phosphorus (2.5-4.5) mg/dL AST (5-40) units/L ALT (7-56) units/L C-Reactive Protein (0.00-1.30) mg/dL Total Protein (6.3-8.2) g/dL Albumin (3.9-5) g/dL Arterial Blood Glucose 299 H 239 H (65-95) mg/dL Arterial Blood Ionized Calcium 4.2 L 4.0 L (4.6-5.3) mg/dL Urine WBC (Auto) > 182.0 H (0.0-6.0) /HPF 07/29/20 07/29/20 07/29/20 Range/Units 13:00 Unknown Unknown RBC 3.05 L (3.65-5.03) M/mm3 Hgb 9.7 L (11.8-15.2) gm/dl Hct 28.6 L (35.5-45.6) % RDW 16.1 H (13.2-15.2) % Seg Neuts % (Manual) 75.0 H (40.0-70.0) % Lymphocytes % (Manual) 2.0 L (13.4-35.0) % Lymphocytes # (Manual) 0.2 L (1.2-5.4) K/mm3 ABG pH (7.320-7.450) POC ABG pCO2 (32.0-48.0) mmHg POC ABG pO2 (83-108) mmHg ABG Hemoglobin (12.0-17.5) ABG Chloride (98-107) mmol/L ABG Glucose (65-95) mg/dL Carboxyhemoglobin (0.5-1.5) Chloride 108.4 H (98-107) mmol/L Carbon Dioxide 21 L (22-30) mmol/L BUN 41 H (9-20) mg/dL Glucose 217 H (75-100) mg/dL POC Glucose 212 H (70-105) mg/dL Lactic Acid (0.7-2.0) mmol/L Calcium 6.5 L D (8.4-10.2) mg/dL Phosphorus (2.5-4.5) mg/dL AST 104 H (5-40) units/L ALT 74 H (7-56) units/L C-Reactive Protein (0.00-1.30) mg/dL Total Protein 5.1 L (6.3-8.2) g/dL Albumin 2.4 L (3.9-5) g/dL Arterial Blood Glucose (65-95) mg/dL Arterial Blood Ionized Calcium (4.6-5.3) mg/dL Urine WBC (Auto) (0.0-6.0) /HPF 07/29/20 Range/Units Unknown RBC (3.65-5.03) M/mm3 Hgb (11.8-15.2) gm/dl Hct (35.5-45.6) % RDW (13.2-15.2) % Seg Neuts % (Manual) (40.0-70.0) % Lymphocytes % (Manual) (13.4-35.0) % Lymphocytes # (Manual) (1.2-5.4) K/mm3 ABG pH (7.320-7.450) POC ABG pCO2 (32.0-48.0) mmHg POC ABG pO2 (83-108) mmHg ABG Hemoglobin (12.0-17.5) ABG Chloride (98-107) mmol/L ABG Glucose (65-95) mg/dL Carboxyhemoglobin (0.5-1.5) Chloride (98-107) mmol/L Carbon Dioxide (22-30) mmol/L BUN (9-20) mg/dL Glucose (75-100) mg/dL POC Glucose (70-105) mg/dL Lactic Acid 2.70 H* (0.7-2.0) mmol/L Calcium (8.4-10.2) mg/dL Phosphorus (2.5-4.5) mg/dL AST (5-40) units/L ALT (7-56) units/L C-Reactive Protein (0.00-1.30) mg/dL Total Protein (6.3-8.2) g/dL Albumin (3.9-5) g/dL Arterial Blood Glucose (65-95) mg/dL Arterial Blood Ionized Calcium (4.6-5.3) mg/dL Urine WBC (Auto) (0.0-6.0) /HPF - Imaging and Cardiology CT scan - chest: report reviewed, image reviewed (patchy airspace disease) Assessment and Plan Cultures: 07/28/2020 blood culture: No growth 07/28/2020 urine culture: No growth A/P: 69-year-old alf resident with quadriplegia, spinal cord injury, was brought in due to fever and sepsis: #Septic shock: Source is likely aspiration pneumonia and UTI. CT chest showed patchy airspace disease suggestive of possible aspiration. Abdomen and pelvis without acute process. #UTI #Acute hypoxic respiratory failure: On mechanical ventilation #Transaminitis: Likely sepsis/shock related #Sacral decubitus ulcer: Does not appear infected. Continue wound care Recs: -Given alf resident, at risk of resistant pathogens, treat empirically with meropenem and IV vancomycin -Levofloxacin and Flagyl discontinued -Follow-up blood and urine cultures -Follow-up sputum culture -Follow-up COVID-19 PCR (patient is s/p vaccination) Dominga Simmons MD, FACP [facility] ([facility] O: [phone] F: [phone]
[2020-07-29] MEDS: MEROPENEM/NS 1 GRAM/100 ML 1 GRAM/100 ML BAG IV SCH ×2 (15:30→22:48)
--- NOTE | 2020-07-29 15:49 | Progress Note ---
Assessment and Plan Acute possibly on chronic toxic metabolic encephalopathy Acute hypoxemic respiratory failure, on mechanical ventilatory support Severe sepsis with shock, presumably secondary to aspiration pneumonia Aspiration pneumonia, bilateral Urinary tract infection History of quadriplegia Leukocytosis Anemia that is microcytic Coagulopathy. INR 2.17 at presentation Mild hypokalemia Acute kidney injury Metabolic lactic acidosis Non-ST elevation myocardial infarction Adult failure to thrive Moderate to severe protein calorie malnutrition - advance ETT 2 cm - increased set minute ventilation re: Hypercapnic acidosis - repeat ABG at 9 pm - begin SSI - continue to wean Levophed for target MAP > 65 mmHg - continue to wean supplemental oxygen for target O2 sat's > 90% acutely - VAP bundle addressed - continue lung protective strategies - continue bronchodilators with pulmonary hygiene per RT - wean per pulmonary driven protocols otherwise - avoid nephrotoxins, renally dose all medications - continue to avoid benzodiazepine's, reduce the possibility of delirium - complete AB's per ID rec's - prn analgesia per CPOT score - Maintenance of sleep-wake cycle, avoid delirium - continue enteral nutritional support at goal rate as tolerated - G.I. & VTE prophylaxis - PT/OT/ROM exercises - continue mobility protocols for pressure ulcer prophylaxis - Monitor hemodynamics closely - continue other care per attending / other consultants - discharge planning ongoing concurrently COVID SPECIFIC INTERVENTIONS - COVID test result negative .... Re-evaluate in am & prn CONDITION: CRITICAL PROGNOSIS: GUARDED CODE STATUS: FULL CODE The high probability of a clinically significant, sudden or life-threatening deterioration of the [respiratory, cardiovascular & neurologic] system(s) required my full and direct attention, intervention and personal management. The aggregate critical care time was [31] minutes without overlap. Time includes spent on; [x] Data Review and interpretation [x] Patient assessment and monitoring of vital signs [x] Documentation [x] Medication orders and management Subjective Date of service: 07/29/20 Principal diagnosis: Ac. encephalopathy; Ac. hypoxemic resp failure; Septic Shock; PNA; UTI; JEFFERSON Interval history: Patient is seen today for: Acute encephalopathy; Acute hypoxemic respiratory failure; Septic Shock; Aspiration pneumonia; UTI; quadriplegia; JEFFERSON Seen and examined at bedside; 24hour events reviewed; nursing and respiratory care staff consulted; no adverse overnight events reported to me; resting in bed; now opening eyes to name calling but not following prompts; no emesis or overt aspiration; remains on Levophed drip but down [place] 2 janelle's/min Objective Vital Signs - 12hr 07/29/20 07/29/20 07/29/20 04:00 04:01 04:03 Temperature 97.4 F L Pulse Rate 100 H 100 H Blood Pressure 115/85 O2 Sat by Pulse 100 Oximetry 07/29/20 07/29/20 07/29/20 07:00 07:17 11:15 Temperature 97.9 F Pulse Rate 78 106 H Blood Pressure 113/73 102/65 O2 Sat by Pulse 100 100 Oximetry 07/29/20 07/29/20 13:21 15:17 Temperature 97.4 F L Pulse Rate 116 H Blood Pressure 94/62 O2 Sat by Pulse 100 Oximetry Constitutional: no acute distress, other (elderly and chronically ill looking male ) Eyes: non-icteric ENT: oropharynx dry, other (ETT #^ 24 cm KEVIN) Neck: supple, no lymphadenopathy, no JVD, other (C-spine collar) Effort: mildly labored Ascultation: Bilateral: diminished breath sounds, rhonchi Percussion: Bilateral: not dull Cardiovascular: regular rate and rhythm Gastrointestinal: normoactive bowel sounds, soft, non-tender, non-distended Integumentary: rash Extremities: no cyanosis, no edema, pulses normal Neurologic: pupils equal and round, unable to assess, other (quadriplegic) Psychiatric: other (unable to assess) CBC and BMP: 07/29/20 Unknown 07/29/20 Unknown ABG, PT/INR, D-dimer: ABG ABG pH 7.212 (7.320-7.450) L 07/29/20 04:02 POC ABG pCO2 52.5 mmHg (32.0-48.0) H 07/29/20 04:02 ABG pCO2 34.1 mm Hg 07/28/20 10:18 POC ABG pO2 128.3 mmHg (83-108) H 07/29/20 04:02 ABG pO2 78.0 mm Hg (80.0-90.0) L 07/28/20 10:18 POC ABG HCO3 20.6 07/29/20 04:02 ABG O2 Saturation 98.5 (0-100) 07/29/20 04:02 PT/INR, D-dimer PT 24.7 Sec. (12.2-14.9) H 07/28/20 08:48 INR 2.17 (0.87-1.13) H 07/28/20 08:48 Abnormal lab findings: Abnormal Labs 07/28/20 07/28/20 07/28/20 08:48 08:48 08:48 WBC 17.0 H RBC 2.77 L Hgb 8.2 L Hct 26.5 L MCV 96 H MCHC 31 L RDW 16.2 H Seg Neuts % (Manual) Lymphocytes % (Manual) Lymphocytes # (Manual) PT 24.7 H INR 2.17 H ABG pH POC ABG pCO2 POC ABG pO2 ABG pO2 ABG Hemoglobin ABG Chloride ABG Glucose Carboxyhemoglobin Sodium 135 L Potassium 3.5 L Chloride 97.6 L Carbon Dioxide BUN 44 H Creatinine 1.6 H Glucose 431 H POC Glucose Lactic Acid Calcium 7.9 L Phosphorus AST 81 H ALT Ammonia Total Creatine Kinase 486 H Troponin T 0.115 H* C-Reactive Protein Total Protein 5.6 L Albumin 2.6 L LDL Cholesterol Direct 44 L HDL Cholesterol 26 L Arterial Blood Glucose Arterial Blood Ionized Calcium Urine WBC (Auto) Salicylates 07/28/20 07/28/20 07/28/20 08:48 09:44 09:44 WBC RBC Hgb Hct MCV MCHC RDW Seg Neuts % (Manual) Lymphocytes % (Manual) Lymphocytes # (Manual) PT INR ABG pH POC ABG pCO2 POC ABG pO2 ABG pO2 ABG Hemoglobin ABG Chloride ABG Glucose Carboxyhemoglobin Sodium Potassium Chloride Carbon Dioxide BUN Creatinine Glucose POC Glucose Lactic Acid 3.80 H* Calcium Phosphorus AST ALT Ammonia 63.0 H Total Creatine Kinase Troponin T C-Reactive Protein Total Protein Albumin LDL Cholesterol Direct HDL Cholesterol Arterial Blood Glucose Arterial Blood Ionized Calcium Urine WBC (Auto) Salicylates < 0.3 L 07/28/20 07/28/20 07/28/20 10:18 14:38 15:58 WBC RBC Hgb Hct MCV MCHC RDW Seg Neuts % (Manual) Lymphocytes % (Manual) Lymphocytes # (Manual) PT INR ABG pH POC ABG pCO2 POC ABG pO2 ABG pO2 78.0 L ABG Hemoglobin 7.6 L ABG Chloride ABG Glucose Carboxyhemoglobin Sodium Potassium Chloride Carbon Dioxide BUN Creatinine Glucose POC Glucose 265 H Lactic Acid 3.90 H* Calcium Phosphorus AST ALT Ammonia Total Creatine Kinase Troponin T C-Reactive Protein Total Protein Albumin LDL Cholesterol Direct HDL Cholesterol Arterial Blood Glucose Arterial Blood Ionized Calcium Urine WBC (Auto) Salicylates 07/28/20 07/28/20 07/28/20 19:50 21:00 Unknown WBC RBC Hgb Hct MCV MCHC RDW Seg Neuts % (Manual) Lymphocytes % (Manual) Lymphocytes # (Manual) PT INR ABG pH 7.107 L POC ABG pCO2 65.6 H POC ABG pO2 ABG pO2 ABG Hemoglobin 9.9 L ABG Chloride 108.0 H ABG Glucose 299 H Carboxyhemoglobin 0.2 L Sodium Potassium Chloride Carbon Dioxide BUN Creatinine Glucose POC Glucose Lactic Acid Calcium Phosphorus 5.40 H AST ALT Ammonia Total Creatine Kinase Troponin T C-Reactive Protein 9.00 H Total Protein Albumin LDL Cholesterol Direct HDL Cholesterol Arterial Blood Glucose 299 H Arterial Blood Ionized Calcium 4.2 L Urine WBC (Auto) > 182.0 H Salicylates 07/29/20 07/29/20 07/29/20 04:02 13:00 Unknown WBC RBC 3.05 L Hgb 9.7 L Hct 28.6 L MCV MCHC RDW 16.1 H Seg Neuts % (Manual) 75.0 H Lymphocytes % (Manual) 2.0 L Lymphocytes # (Manual) 0.2 L PT INR ABG pH 7.212 L POC ABG pCO2 52.5 H POC ABG pO2 128.3 H ABG pO2 ABG Hemoglobin 10.5 L ABG Chloride 108.0 H ABG Glucose 239 H Carboxyhemoglobin Sodium Potassium Chloride Carbon Dioxide BUN Creatinine Glucose POC Glucose 212 H Lactic Acid Calcium Phosphorus AST ALT Ammonia Total Creatine Kinase Troponin T C-Reactive Protein Total Protein Albumin LDL Cholesterol Direct HDL Cholesterol Arterial Blood Glucose 239 H Arterial Blood Ionized Calcium 4.0 L Urine WBC (Auto) Salicylates 07/29/20 07/29/20 Unknown Unknown WBC RBC Hgb Hct MCV MCHC RDW Seg Neuts % (Manual) Lymphocytes % (Manual) Lymphocytes # (Manual) PT INR ABG pH POC ABG pCO2 POC ABG pO2 ABG pO2 ABG Hemoglobin ABG Chloride ABG Glucose Carboxyhemoglobin Sodium Potassium Chloride 108.4 H Carbon Dioxide 21 L BUN 41 H Creatinine Glucose 217 H POC Glucose Lactic Acid 2.70 H* Calcium 6.5 L D Phosphorus AST 104 H ALT 74 H Ammonia Total Creatine Kinase Troponin T C-Reactive Protein Total Protein 5.1 L Albumin 2.4 L LDL Cholesterol Direct HDL Cholesterol Arterial Blood Glucose Arterial Blood Ionized Calcium Urine WBC (Auto) Salicylates Chest x-ray: image reviewed (ETT riding [place]) Allied health notes reviewed: nursing
[2020-07-29] MEDS: INSULIN LISPRO 100 UNIT/ML SUB-Q SCH (17:31)
[2020-07-29] MEDS: VANCOMYCIN/NS 1 GM/250 ML 1 GM/250 ML BAG IV SCH (17:32)
[2020-07-29] MEDS: fentaNYL DRIP Premix 2,000 MCG/100 ML BAG IV SCH (22:46)
[2020-07-30] MEDS: INSULIN LISPRO 100 UNIT/ML SUB-Q SCH ×4 (00:24→18:41)
[2020-07-30] MEDS: SODIUM CHLORIDE 0.9% 1000 ML 1,000 ML IV SCH (02:03)
[2020-07-30] MEDS: VANCOMYCIN/NS 1 GM/250 ML 1 GM/250 ML BAG IV SCH (05:31)
--- NOTE | 2020-07-30 05:53 | XRay Report ---
CHEST 1 VIEW, 07/30/2020 221 AM CLINICAL INFORMATION/INDICATION: Respiratory failure COMPARISON: Chest radiograph, 07/29/2020 FINDINGS: SUPPORT DEVICES: Support tubes and lines remain in stable position. HEART: The cardiac silhouette is normal in size. LUNGS/PLEURA: Faint patchy pulmonary opacities within the mid and lower lung zones have slightly incr eased since the previous study. ADDITIONAL FINDINGS: No additional acute findings. IMPRESSION: 1. Faint patchy pulmonary opacities concerning for developing pneumonia. Signer Name: Jennifer Canchola MD Signed: 07/30/2020 5:49 AM Workstation Name: [id number]
[2020-07-30 06:03] LABS: Hematocrit 23.3 % (35.5-45.6); Hemoglobin 7.8 gm/dl (11.8-15.2); Mean Corpuscular HGB Conc 34 % (32-34); Mean Corpuscular Volume 93 fl (84-94); Platelet Count 145 K/mm3 (140-440); Red Cell Distribution Width 16.4 % (13.2-15.2)
[2020-07-30 06:31] LABS: Alanine Aminotransferase 46 units/L (7-56); Albumin 2.3 g/dL (3.9-5); BUN/Creatinine Ratio 31; Blood Urea Nitrogen 44 mg/dL (9-20); Calcium 6.7 mg/dL (8.4-10.2); Hemolysis Index 4
[2020-07-30] MEDS: HEPARIN 5,000 UNIT/1 ML VIAL SUB-Q SCH ×2 (09:37→21:24)
[2020-07-30] MEDS: FAMOTIDINE 20 MG TAB PO SCH ×2 (09:37→21:24)
[2020-07-30] MEDS: SENNOSIDES/DOCUSATE SODIUM 8.6/50 MG TAB FEEDTUBE SCH ×2 (09:37→21:24)
[2020-07-30] MEDS: INSULIN GLARGINE 100 UNITS/ML SUB-Q SCH (09:37)
[2020-07-30] MEDS ORDERED: INSULIN GLARGINE 100 UNITS/ML SUB-Q SCH (10:00)
[2020-07-30] MEDS: fentaNYL DRIP Premix 2,000 MCG/100 ML BAG IV SCH ×2 (10:44→22:51)
--- NOTE | 2020-07-30 11:43 | Progress Note ---
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 08/07/20 04:00 ABG HCO3 24.1 mmol/L (20.0-26.0) 08/02/20 03:50 ABG O2 Saturation 99.2 (0-100) 08/07/20 04:00 ABG O2 Content 10.7 (0.0-44) 08/02/20 03:50 POC ABG Base Excess -1.9 08/07/20 04:00 ABG Base Excess -1.7 mmol/L (-2.0-3.0) 08/02/20 03:50 ABG Hemoglobin 8.0 (12.0-17.5) L 08/07/20 04:00 ABG Oxyhemoglobin 98.4 (94-98) H 08/07/20 04:00 ABG Carboxyhemoglobin 1.6 % (0.0-5.0) 08/02/20 03:50 ABG Methemoglobin 0 (0.0-1.5) 08/07/20 04:00 ABG Sodium 146.7 mmol/L (136.0-145.0) H 08/07/20 04:00 ABG Potassium 3.9 mmol/L (3.40-4.50) 08/07/20 04:00 ABG Chloride 114.0 mmol/L (98-107) H 08/07/20 04:00 ABG Glucose 201 mg/dL (65-95) H 08/07/20 04:00 VBG pH 7.377 (7.320-7.420) 07/28/20 09:44 Oxyhemoglobin 95.2 % (95.0-99.0) 08/02/20 03:50 Carboxyhemoglobin 0.8 (0.5-1.5) 08/07/20 04:00 FiO2 40 % 08/02/20 03:50 FiO2 % 60.0 08/07/20 04:00 Sodium 151 mmol/L (137-145) H 08/07/20 04:05 Potassium 3.9 mmol/L (3.6-5.0) 08/07/20 04:05 Chloride 114.3 mmol/L (98-107) H 08/07/20 04:05 Carbon Dioxide 24 mmol/L (22-30) 08/07/20 04:05 Anion Gap 17 mmol/L 08/07/20 04:05 BUN 63 mg/dL (9-20) H 08/07/20 04:05 Creatinine 1.1 mg/dL (0.8-1.3) 08/07/20 04:05 Estimated GFR > 60 ml/min 08/07/20 04:05 BUN/Creatinine Ratio 57 % 08/07/20 04:05 Glucose 198 mg/dL (75-100) H 08/07/20 04:05 POC Glucose 160 mg/dL (70-105) H 08/07/20 05:34 Hemoglobin A1c 8.8 % (4-6) H 08/01/20 04:30 Lactic Acid 1.60 mmol/L (0.7-2.0) 07/30/20 05:45 Calcium 9.3 mg/dL (8.4-10.2) 08/07/20 04:05 Ionized Calcium 4.2 mg/dL (4.8-5.6) L 07/30/20 19:01 Phosphorus 2.90 mg/dL (2.5-4.5) D 08/04/20 03:00 Magnesium 2.30 mg/dL (1.7-2.3) 08/02/20 Unknown Total Bilirubin 0.30 mg/dL (0.1-1.2) 08/07/20 04:05 AST 54 units/L (5-40) H 08/07/20 04:05 ALT 31 units/L (7-56) 08/07/20 04:05 Alkaline Phosphatase 213 units/L (35-129) H 08/07/20 04:05 Ammonia 63.0 umol/L (25-60) H 07/28/20 08:48 Total Creatine Kinase 486 units/L (55-170) H 07/28/20 08:48 Troponin T 0.115 ng/mL (0.00-0.029) H* 07/28/20 08:48 C-Reactive Protein 9.00 mg/dL (0.00-1.30) H 07/28/20 19:50 Total Protein 6.1 g/dL (6.3-8.2) L 08/07/20 04:05 Albumin 2.0 g/dL (3.9-5) L 08/07/20 04:05 Albumin/Globulin Ratio 0.5 % 08/07/20 04:05 Triglycerides 184 mg/dL (2-149) H 08/04/20 03:00 Cholesterol 80 mg/dL (50-199) 07/28/20 08:48 LDL Cholesterol Direct 44 mg/dL (50-130) L 07/28/20 08:48 HDL Cholesterol 26 mg/dL (40-59) L 07/28/20 08:48 Cholesterol/HDL Ratio 3.07 % 07/28/20 08:48 Procalcitonin 177.82 ng/mL (<0.15) 07/28/20 19:50 TSH 2.450 mlU/mL (0.270-4.200) 07/28/20 08:48 Arterial Blood Glucose 201 mg/dL (65-95) H 08/07/20 04:00 Arterial Blood Ionized Calcium 5.0 mg/dL (4.6-5.3) 08/07/20 04:00 Urine Color Linette (Yellow) 07/28/20 Unknown Urine Turbidity Cloudy (Clear) 07/28/20 Unknown Urine pH 5.0 (5.0-7.0) 07/28/20 Unknown Ur Specific [place] 1.018 (1.003-1.030) 07/28/20 Unknown Urine Protein 100 mg/dl mg/dL (Negative) 07/28/20 Unknown Urine Glucose (UA) Neg mg/dL (Negative) 07/28/20 Unknown Urine Ketones Neg mg/dL (Negative) 07/28/20 Unknown Urine Blood Lg (Negative) 07/28/20 Unknown Urine Nitrite Neg (Negative) 07/28/20 Unknown Urine Bilirubin Neg (Negative) 07/28/20 Unknown Urine Urobilinogen 2.0 mg/dL (<2.0) 07/28/20 Unknown Ur Leukocyte Esterase Lg (Negative) 07/28/20 Unknown Urine WBC (Auto) > 182.0 /HPF (0.0-6.0) H 07/28/20 Unknown Urine RBC (Auto) 30.0 /HPF (0.0-6.0) 07/28/20 Unknown U Epithel Cells (Auto) 2.0 /HPF (0-13.0) 07/28/20 Unknown Urine Bacteria (Auto) 1+ /HPF (Negative) 07/28/20 Unknown Ur Transition Epith Cell 4 /HPF 07/28/20 Unknown Hyaline Casts 5 /LPF 07/28/20 Unknown Urine Mucus Few /HPF 07/28/20 Unknown Nasal Screen MRSA (PCR) Negative (Negative) 07/29/20 Unknown Salicylates < 0.3 mg/dL (2.8-20.0) L 07/28/20 09:44 Plasma/Serum Alcohol < 0.01 % (0-0.07) 07/28/20 09:44 Heparin-induced Plt Ab Negative (Negative) 08/01/20 23:40 UF Heparin High Dose 0 % Release 08/01/20 23:40 DEISY UFH Low Dose 0.1 0 % Release 08/01/20 23:40 DEISY UFH Low Dose 0.5 0 % Release 08/01/20 23:40 Coronavirus (PCR) Negative (Negative) 07/29/20 09:15 Blood Type O POSITIVE 08/01/20 08:40 Antibody Screen Negative 08/01/20 08:40 Crossmatch See Detail 08/01/20 08:40 Microbiology: Microbiology 08/02/20 16:56 Peripheral/Venous Blood Culture - Preliminary NO GROWTH AFTER 4 DAYS 08/02/20 16:56 Peripheral/Venous Blood Culture - Preliminary NO GROWTH AFTER 4 DAYS 08/06/20 11:55 Bronchial Washings - Left Upper Lobe Respiratory Culture - Preliminary Brennan/IV: Voiding Method Indwelling Catheter Active Medications - Current Medications Current Medications: Generic Name Dose Route Start Last Admin Trade Name Freq PRN Reason Stop Dose Admin Acetaminophen 650 mg 07/28/20 14:27 Acetaminophen 325 Mg Tab PO Q6H PRN Pain, Mild (1-3) Acetylcysteine 200 mg 08/06/20 14:00 08/07/20 02:08 Acetylcysteine 20% 200 Mg/1 Ml *For Inhalation Use* INHALATION Not Given Q6HRT [place] Albuterol 2.5 mg 07/28/20 14:27 08/05/20 14:27 Albuterol 2.5 Mg/3 Ml Nebu IH 2.5 mg Q3H PRN Administration Shortness Of Breath Albuterol 2.5 mg 08/06/20 14:00 08/07/20 03:22 Albuterol 2.5 Mg/3 Ml Nebu IH 2.5 mg Q6HRT [place] Administration Amlodipine Besylate 5 mg 08/04/20 10:00 08/06/20 10:18 Amlodipine 5 Mg Tab PO 5 mg QDAY [place] Administration Lipase/Protease/Amylase 1 each 07/29/20 09:55 Lipase 10,500/Protease 25,000/Amylase 43,750 (Units) Dr Ron FEEDTUBE PRN PRN For Clogged Feeding Tube Ascorbic Acid 500 mg 08/01/20 22:00 08/06/20 21:13 Ascorbic Acid 500 Mg Tab PO 500 mg BID [place] Administration Dextrose 50 ml 07/29/20 15:46 Dextrose 50% In Water (25gm) 50 Ml Syringe IV Q30MIN PRN Hypoglycemia Protocol Enoxaparin Sodium 40 mg 08/06/20 10:00 08/06/20 10:17 Enoxaparin 40 Mg/0.4 Ml Inj SUB-Q 40 mg QDAY@1000 [place] Administration Famotidine 20 mg 07/30/20 10:00 08/06/20 21:13 Famotidine 20 Mg Tab PO 20 mg BID [place] Administration Hydralazine HCl 5 mg 08/04/20 08:06 08/04/20 12:34 Hydralazine 20 Mg/1 Ml Inj IV 5 mg Q4HR PRN Administration Blood Pressure Hydrophilic Ointment 1 applic 07/28/20 09:30 Lip Therapy Vaseline TP Q2H PRN Dry Lips Fentanyl Citrate 2,000 mcg in 100 mls @ 4.082 mls/hr 07/28/20 16:00 08/07/20 04:29 Fentanyl Drip Premix IV 4 mcg/kg/hr TITR [place] 16.329 mls/hr Administration Protocol 1 MCG/KG/HR Fluconazole 200 mls @ 100 mls/hr 08/01/20 15:00 08/06/20 15:09 Diflucan IV 08/14/20 16:59 100 mls/hr Q24H [place] Administration Protocol Propofol 1,000 mg in 100 mls @ 2.449 mls/hr 08/02/20 12:00 08/07/20 06:06 Diprivan 10 Mg/Ml IV 0 mcg/kg/min TITR [place] 0 mls/hr Titration Protocol 5 MCG/KG/MIN Insulin Glargine 25 units 08/04/20 10:00 08/06/20 10:18 Insulin Glargine 100 Units/Ml SUB-Q 25 units QDAY [place] Administration Insulin Human Lispro 0 unit 08/04/20 12:00 08/07/20 05:44 Insulin Lispro 100 Unit/Ml SUB-Q 3 unit Q6HR [place] Administration Protocol Multi-Ingred Cream/Lotion/Oil/Oint 1 applic 07/28/20 09:30 Mineral Oil/Petrolatum, White Ophth Oint 3.5 Gm OU Q4H PRN Dry Eye(s) Senna/Docusate Sodium 1 tab 07/28/20 22:00 08/06/20 21:13 Sennosides/Docusate Sodium 8.6/50 Mg Tab FEEDTUBE 1 tab BID [place] Administration Simple Syrup 15 ml 07/29/20 09:55 Simple Syrup 15 Ml FEEDTUBE PRN PRN Hypoglycemia Simple Syrup 30 ml 07/29/20 09:55 Simple Syrup 15 Ml FEEDTUBE PRN PRN Hypoglycemia Sodium Bicarbonate 325 mg 07/29/20 09:55 Sodium Bicarbonate 325 Mg Tab FEEDTUBE PRN PRN For Clogged Feeding Tube Sodium Chloride 10 ml 07/28/20 22:00 08/06/20 21:14 Sodium Chloride 0.9% 10 Ml Flush Syringe IV 10 ml BID [place] Administration Sodium Chloride 10 ml 07/28/20 14:27 Sodium Chloride 0.9% 10 Ml Flush Syringe IV PRN PRN LINE FLUSH Zinc Sulfate 220 mg 08/01/20 15:00 08/06/20 21:13 Zinc Sulfate 220 Mg Cap PO 220 mg BID [place] Administration Nutrition/Malnutrition Assess - Dietary Evaluation Nutrition/Malnutrition Findings: Nutrition Notes Start: 07/29/20 09:47 Freq: Status: Active Protocol: Document 08/05/20 11:52 SOFYA (Rec: 08/05/20 11:59 [facility] [id number]) Nutrition Notes Initial or Follow up Reassessment Current Diagnosis Acute Kidney Injury, Respiratory Failure Other Pertinent Diagnosis Acute encephalopathy, Pneu, UTI, Quadriplegia Current Diet TF - Vital AF 1.2 at 65ml/hr Labs/Tests BUN 51 BG 229 Pertinent Medications Reviewed Height 6 ft Weight 81.647 kg [place] Body Weight (kg) 80.90 BMI 24.4 Weight Status Appropriate Subjective/Other Information Spoke with RN via phone at 11: 52; pt tolerating TF at goal rate and remains on vent support. Currently off propofol. Percent of energy/protein needs met: 96% energy 100% pro Burn Absent Trauma Absent #2 Nutrition Diagnosis Increased nutrient needs ( specify in comment below) Diagnosis Progress(for reassessment Continues documentation) #1 Nutrition Diagnosis Inadequate oral intake Diagnosis Progress(for reassessment Continues documentation) Is patient on ventilator? Yes Is Patient Ambulatory and/or Out of Bed No REE-([facility]-confined to bed) 1942.100 Calculation Used for Recommendations [facility] Additional Notes Pro needs 1.2-2g/k-163g/ day Fluid needs 1ml/kcal Nutrition Intervention Nutrition Support: Continue Vital AF 1.2 at 65ml/ hr with 100 ml water flush q4h . Kcal 1,872 Protein (gm) 117 Fluid (mL) 1,265 Add Supplement/Snack (indicate name/kcal Reji BID /protein ) Provides kCal: 190 Provides Protein (gm) 5 Goal #1 TF tolerance Goal #2 TF to meet 80-100% energy and pro needs Follow-Up By: 08/10/20 Additional Comments F/U: stable TF, vent status, Reji administration
--- NOTE | 2020-07-30 12:34 | Progress Note ---
Assessment and Plan Cultures: 07/28/2020 blood culture: No growth 07/28/2020 urine culture: No growth COVID PCR: negative A/P: 69-year-old custodial resident with quadriplegia, spinal cord injury, was brought in due to fever and sepsis: #Septic shock: Source is likely aspiration pneumonia and UTI. CT chest showed patchy airspace disease suggestive of possible aspiration. Abdomen and pelvis without acute process. #UTI #Acute hypoxic respiratory failure: On mechanical ventilation #Transaminitis: Likely sepsis/shock related #Sacral decubitus ulcer: Does not appear infected. Continue wound care Recs: -Given custodial resident, at risk of resistant pathogens, treat empirically with meropenem and IV vancomycin -Assuming cultures remain negative tomorrow will de-escalate vancomycin. -Follow-up blood and urine cultures -Follow-up sputum culture Omkar Cabrera MD [facility] O: [phone] F: [phone] Subjective Date of service: 07/30/20 Principal diagnosis: Ac. encephalopathy; Ac. hypoxemic resp failure; Septic Shock; PNA; UTI; [place] Interval history: Afebrile, normal white count. Cultures remain negative. Imaging personally reviewed: CXR: faint pulmonary opacities Objective - Exam Narrative Exam: Physical Exam: Constitutional: sedated, intubated, on the vent Head, Ears, Nose: Normocephalic, atraumatic. External ears, nose normal Eyes: Conjunctivae/corneas clear. No icterus. No ptosis. Neck: intubated. Cervical collar present Oral: intubated Cardiovascular: S1, S2 + Respiratory: AE fair bilaterally and equal GI: Soft, bowel sounds + Musculoskeletal: No pedal edema, no cyanosis. Skin: Sacral decubitus with dressing Hem/Lymphatic: No palpable cervical or supraclavicular nodes. Psych: no agitation Neurological: sedated, intubated, on the vent, exam limited - Constitutional Vitals: Vital Signs Temp Pulse Resp BP Pulse Ox 97.9 F 110 H 30 H 99/65 98 07/30/20 07:00 07/30/20 12:00 07/30/20 12:00 07/30/20 12:00 07/30/20 12:00 Temperature -Last 24 Hours Temperature 97.9 F Temperature 98.7 F Temperature 98.3 F Temperature 98.8 F Temperature 98.9 F Temperature 97.4 F - Labs CBC & Chem 7: 07/30/20 05:45 07/30/20 05:45 Labs: Abnormal lab results 07/29/20 07/29/20 07/29/20 Range/Units 13:00 17:13 21:00 RBC (3.65-5.03) M/mm3 Hgb (11.8-15.2) gm/dl Hct (35.5-45.6) % RDW (13.2-15.2) % ABG pH 7.286 L (7.320-7.450) ABG Hemoglobin 9.1 L (12.0-17.5) ABG Chloride 109.0 H (98-107) mmol/L ABG Glucose 285 H (65-95) mg/dL Chloride (98-107) mmol/L Carbon Dioxide (22-30) mmol/L BUN (9-20) mg/dL Creatinine (0.8-1.3) mg/dL Glucose (75-100) mg/dL POC Glucose 212 H 257 H (70-105) mg/dL Calcium (8.4-10.2) mg/dL AST (5-40) units/L Total Protein (6.3-8.2) g/dL Albumin (3.9-5) g/dL Arterial Blood Glucose 285 H (65-95) mg/dL Arterial Blood Ionized Calcium 3.9 L (4.6-5.3) mg/dL 07/29/20 07/30/20 07/30/20 Range/Units 23:20 05:30 05:45 RBC 2.50 L (3.65-5.03) M/mm3 Hgb 7.8 L (11.8-15.2) gm/dl Hct 23.3 L (35.5-45.6) % RDW 16.4 H (13.2-15.2) % ABG pH (7.320-7.450) ABG Hemoglobin (12.0-17.5) ABG Chloride (98-107) mmol/L ABG Glucose (65-95) mg/dL Chloride (98-107) mmol/L Carbon Dioxide (22-30) mmol/L BUN (9-20) mg/dL Creatinine (0.8-1.3) mg/dL Glucose (75-100) mg/dL POC Glucose 233 H 245 H (70-105) mg/dL Calcium (8.4-10.2) mg/dL AST (5-40) units/L Total Protein (6.3-8.2) g/dL Albumin (3.9-5) g/dL Arterial Blood Glucose (65-95) mg/dL Arterial Blood Ionized Calcium (4.6-5.3) mg/dL 07/30/20 Range/Units 05:45 RBC (3.65-5.03) M/mm3 Hgb (11.8-15.2) gm/dl Hct (35.5-45.6) % RDW (13.2-15.2) % ABG pH (7.320-7.450) ABG Hemoglobin (12.0-17.5) ABG Chloride (98-107) mmol/L ABG Glucose (65-95) mg/dL Chloride 108.4 H (98-107) mmol/L Carbon Dioxide 21 L (22-30) mmol/L BUN 44 H (9-20) mg/dL Creatinine 1.4 H (0.8-1.3) mg/dL Glucose 279 H (75-100) mg/dL POC Glucose (70-105) mg/dL Calcium 6.7 L (8.4-10.2) mg/dL AST 51 H (5-40) units/L Total Protein 5.5 L (6.3-8.2) g/dL Albumin 2.3 L (3.9-5) g/dL Arterial Blood Glucose (65-95) mg/dL Arterial Blood Ionized Calcium (4.6-5.3) mg/dL
--- NOTE | 2020-07-30 14:38 | Progress Note ---
Assessment and Plan Acute possibly on chronic toxic metabolic encephalopathy Acute hypoxemic respiratory failure, on mechanical ventilatory support Severe sepsis with shock, presumably secondary to aspiration pneumonia Aspiration pneumonia, bilateral Urinary tract infection History of quadriplegia Leukocytosis Anemia that is microcytic Coagulopathy. INR 2.17 at presentation Mild hypokalemia Acute kidney injury Metabolic lactic acidosis Non-ST elevation myocardial infarction Adult failure to thrive Moderate to severe protein calorie malnutrition - get ABG after 2 hours on PSV to assess ventilation - AMS is rate limiting factor to safe extubation at this point - continue care as below otherwise; - continue to wean Levophed for target MAP > 65 mmHg (off this morning and holding so far) - continue to wean supplemental oxygen for target O2 sat's > 90% acutely - VAP bundle addressed - continue lung protective strategies - continue bronchodilators with pulmonary hygiene per RT - wean per pulmonary driven protocols otherwise - avoid nephrotoxins, renally dose all medications - continue to avoid benzodiazepine's, reduce the possibility of delirium - complete AB's per ID rec's - prn analgesia per CPOT score - Maintenance of sleep-wake cycle, avoid delirium - continue enteral nutritional support at goal rate as tolerated - G.I. & VTE prophylaxis - PT/OT/ROM exercises - continue mobility protocols for pressure ulcer prophylaxis - Monitor hemodynamics closely - continue other care per attending / other consultants - discharge planning ongoing concurrently COVID SPECIFIC INTERVENTIONS: - COVID test result negative .... Re-evaluate in am & prn CONDITION: CRITICAL PROGNOSIS: GUARDED CODE STATUS: FULL CODE The high probability of a clinically significant, sudden or life-threatening deterioration of the [respiratory, cardiovascular & neurologic] system(s) required my full and direct attention, intervention and personal management. The aggregate critical care time was [34] minutes without overlap. Time includes spent on; [x] Data Review and interpretation [x] Patient assessment and monitoring of vital signs [x] Documentation [x] Medication orders and management Subjective Date of service: 07/30/20 Principal diagnosis: Ac. encephalopathy; Ac. hypoxemic resp failure; Septic Shock; PNA; UTI; JEFFERSON Interval history: Patient is seen today for: Acute encephalopathy; Acute hypoxemic respiratory failure; Septic Shock; Aspiration pneumonia; UTI; quadriplegia; JEFFERSON Seen and examined at bedside; 24hour events reviewed; nursing and respiratory care staff consulted; no adverse overnight events reported to me; resting in bed; AMS is persistent but on PSV trial with p-supp at 12 and tolerating well so far Objective Vital Signs - 12hr 07/30/20 07/30/20 07/30/20 02:45 03:01 03:15 Temperature Pulse Rate 114 H 113 H 114 H Respiratory 30 H 18 30 H Rate Blood Pressure 95/62 105/71 99/63 O2 Sat by Pulse 99 97 Oximetry 07/30/20 07/30/20 07/30/20 03:30 03:45 03:50 Temperature Pulse Rate 113 H 113 H 114 H Respiratory 30 H 30 H Rate Blood Pressure 97/64 98/61 98/61 O2 Sat by Pulse 99 Oximetry 07/30/20 07/30/20 07/30/20 04:00 04:15 04:30 Temperature 98.7 F Pulse Rate 115 H 113 H 111 H Respiratory 30 H 30 H 17 Rate Blood Pressure 118/67 100/64 97/60 O2 Sat by Pulse 99 97 Oximetry 07/30/20 07/30/20 07/30/20 04:45 05:00 05:15 Temperature Pulse Rate 112 H 112 H 112 H Respiratory 20 30 H 30 H Rate Blood Pressure 97/60 103/65 95/60 O2 Sat by Pulse 99 98 99 Oximetry 07/30/20 07/30/20 07/30/20 05:30 05:45 06:00 Temperature Pulse Rate 111 H 110 H 109 H Respiratory 30 H 30 H 30 H Rate Blood Pressure 101/65 96/62 93/57 O2 Sat by Pulse 98 Oximetry 07/30/20 07/30/20 07/30/20 06:15 06:30 06:45 Temperature Pulse Rate 109 H 111 H 109 H Respiratory 30 H 30 H 30 H Rate Blood Pressure 103/66 111/70 95/61 O2 Sat by Pulse Oximetry 07/30/20 07/30/20 07/30/20 07:00 07:15 07:30 Temperature 97.9 F Pulse Rate 109 H 109 H 109 H Respiratory 30 H 30 H 30 H Rate Blood Pressure 105/66 95/63 105/63 O2 Sat by Pulse Oximetry 07/30/20 07/30/20 07/30/20 07:45 08:00 08:15 Temperature Pulse Rate 110 H 109 H 110 H Respiratory 30 H 30 H 30 H Rate Blood Pressure 105/68 104/64 104/64 O2 Sat by Pulse 100 Oximetry 07/30/20 07/30/20 07/30/20 08:30 08:45 09:00 Temperature Pulse Rate 108 H 109 H 107 H Respiratory 30 H 30 H 30 H Rate Blood Pressure 101/67 100/60 106/65 O2 Sat by Pulse 98 Oximetry 07/30/20 07/30/20 07/30/20 09:15 09:30 09:45 Temperature Pulse Rate 108 H 107 H 109 H Respiratory 30 H 30 H 30 H Rate Blood Pressure 104/66 103/62 112/69 O2 Sat by Pulse 98 Oximetry 07/30/20 07/30/20 07/30/20 10:00 10:15 10:30 Temperature Pulse Rate 109 H 109 H 114 H Respiratory 30 H 30 H 16 Rate Blood Pressure 102/65 98/61 114/79 O2 Sat by Pulse 99 97 Oximetry 07/30/20 07/30/20 07/30/20 10:45 11:00 11:15 Temperature Pulse Rate 111 H 111 H 112 H Respiratory 30 H 30 H 30 H Rate Blood Pressure 103/64 100/59 105/66 O2 Sat by Pulse 99 98 Oximetry 07/30/20 07/30/20 07/30/20 11:30 11:45 12:00 Temperature Pulse Rate 111 H 111 H 110 H Respiratory 30 H 30 H 30 H Rate Blood Pressure 97/62 102/63 99/65 O2 Sat by Pulse 99 98 Oximetry 07/30/20 07/30/20 07/30/20 12:15 12:30 12:40 Temperature Pulse Rate 110 H 110 H 119 H Respiratory 30 H 30 H 20 Rate Blood Pressure 99/64 98/65 126/75 O2 Sat by Pulse 99 Oximetry 07/30/20 07/30/20 07/30/20 12:45 12:53 13:00 Temperature 98.2 F Pulse Rate 117 H 120 H Respiratory 17 14 Rate Blood Pressure 98/65 126/69 O2 Sat by Pulse 99 96 Oximetry 07/30/20 07/30/20 07/30/20 13:15 13:31 13:45 Temperature Pulse Rate 121 H 120 H 120 H Respiratory 19 22 23 Rate Blood Pressure 119/68 112/67 105/59 O2 Sat by Pulse 97 96 97 Oximetry 07/30/20 14:00 Temperature Pulse Rate 118 H Respiratory 24 Rate Blood Pressure 100/62 O2 Sat by Pulse 98 Oximetry Constitutional: no acute distress, other (elderly and chronically ill looking male ) Eyes: non-icteric ENT: oropharynx dry, other (ETT #^ 24 cm KEVIN) Neck: supple, no lymphadenopathy, no JVD, other (C-spine collar) Effort: mildly labored Ascultation: Bilateral: diminished breath sounds, rhonchi Percussion: Bilateral: not dull Cardiovascular: regular rate and rhythm Gastrointestinal: normoactive bowel sounds, soft, non-tender, non-distended Integumentary: rash Extremities: no cyanosis, no edema, pulses normal Neurologic: pupils equal and round, unable to assess, other (quadriplegic) Psychiatric: other (unable to assess) CBC and BMP: 07/31/20 07:26 07/31/20 07:26 ABG, PT/INR, D-dimer: ABG ABG pH 7.286 (7.320-7.450) L 07/29/20 21:00 POC ABG pCO2 41.0 mmHg (32.0-48.0) 07/29/20 21:00 ABG pCO2 34.1 mm Hg 07/28/20 10:18 POC ABG pO2 99.0 mmHg (83-108) 07/29/20 21:00 ABG pO2 78.0 mm Hg (80.0-90.0) L 07/28/20 10:18 POC ABG HCO3 19.1 07/29/20 21:00 ABG O2 Saturation 97.7 (0-100) 07/29/20 21:00 PT/INR, D-dimer PT 24.7 Sec. (12.2-14.9) H 07/28/20 08:48 INR 2.17 (0.87-1.13) H 07/28/20 08:48 Abnormal lab findings: Abnormal Labs 07/28/20 07/28/20 07/28/20 08:48 08:48 08:48 WBC 17.0 H RBC 2.77 L Hgb 8.2 L Hct 26.5 L MCV 96 H MCHC 31 L RDW 16.2 H Seg Neuts % (Manual) Lymphocytes % (Manual) Lymphocytes # (Manual) PT 24.7 H INR 2.17 H ABG pH POC ABG pCO2 POC ABG pO2 ABG pO2 ABG Hemoglobin ABG Chloride ABG Glucose Carboxyhemoglobin Sodium 135 L Potassium 3.5 L Chloride 97.6 L Carbon Dioxide BUN 44 H Creatinine 1.6 H Glucose 431 H POC Glucose Lactic Acid Calcium 7.9 L Phosphorus AST 81 H ALT Ammonia Total Creatine Kinase 486 H Troponin T 0.115 H* C-Reactive Protein Total Protein 5.6 L Albumin 2.6 L LDL Cholesterol Direct 44 L HDL Cholesterol 26 L Arterial Blood Glucose Arterial Blood Ionized Calcium Urine WBC (Auto) Salicylates 07/28/20 07/28/20 07/28/20 08:48 09:44 09:44 WBC RBC Hgb Hct MCV MCHC RDW Seg Neuts % (Manual) Lymphocytes % (Manual) Lymphocytes # (Manual) PT INR ABG pH POC ABG pCO2 POC ABG pO2 ABG pO2 ABG Hemoglobin ABG Chloride ABG Glucose Carboxyhemoglobin Sodium Potassium Chloride Carbon Dioxide BUN Creatinine Glucose POC Glucose Lactic Acid 3.80 H* Calcium Phosphorus AST ALT Ammonia 63.0 H Total Creatine Kinase Troponin T C-Reactive Protein Total Protein Albumin LDL Cholesterol Direct HDL Cholesterol Arterial Blood Glucose Arterial Blood Ionized Calcium Urine WBC (Auto) Salicylates < 0.3 L 07/28/20 07/28/20 07/28/20 10:18 14:38 15:58 WBC RBC Hgb Hct MCV MCHC RDW Seg Neuts % (Manual) Lymphocytes % (Manual) Lymphocytes # (Manual) PT INR ABG pH POC ABG pCO2 POC ABG pO2 ABG pO2 78.0 L ABG Hemoglobin 7.6 L ABG Chloride ABG Glucose Carboxyhemoglobin Sodium Potassium Chloride Carbon Dioxide BUN Creatinine Glucose POC Glucose 265 H Lactic Acid 3.90 H* Calcium Phosphorus AST ALT Ammonia Total Creatine Kinase Troponin T C-Reactive Protein Total Protein Albumin LDL Cholesterol Direct HDL Cholesterol Arterial Blood Glucose Arterial Blood Ionized Calcium Urine WBC (Auto) Salicylates 07/28/20 07/28/20 07/28/20 19:50 21:00 Unknown WBC RBC Hgb Hct MCV MCHC RDW Seg Neuts % (Manual) Lymphocytes % (Manual) Lymphocytes # (Manual) PT INR ABG pH 7.107 L POC ABG pCO2 65.6 H POC ABG pO2 ABG pO2 ABG Hemoglobin 9.9 L ABG Chloride 108.0 H ABG Glucose 299 H Carboxyhemoglobin 0.2 L Sodium Potassium Chloride Carbon Dioxide BUN Creatinine Glucose POC Glucose Lactic Acid Calcium Phosphorus 5.40 H AST ALT Ammonia Total Creatine Kinase Troponin T C-Reactive Protein 9.00 H Total Protein Albumin LDL Cholesterol Direct HDL Cholesterol Arterial Blood Glucose 299 H Arterial Blood Ionized Calcium 4.2 L Urine WBC (Auto) > 182.0 H Salicylates 07/29/20 07/29/20 07/29/20 04:02 13:00 17:13 WBC RBC Hgb Hct MCV MCHC RDW Seg Neuts % (Manual) Lymphocytes % (Manual) Lymphocytes # (Manual) PT INR ABG pH 7.212 L POC ABG pCO2 52.5 H POC ABG pO2 128.3 H ABG pO2 ABG Hemoglobin 10.5 L ABG Chloride 108.0 H ABG Glucose 239 H Carboxyhemoglobin Sodium Potassium Chloride Carbon Dioxide BUN Creatinine Glucose POC Glucose 212 H 257 H Lactic Acid Calcium Phosphorus AST ALT Ammonia Total Creatine Kinase Troponin T C-Reactive Protein Total Protein Albumin LDL Cholesterol Direct HDL Cholesterol Arterial Blood Glucose 239 H Arterial Blood Ionized Calcium 4.0 L Urine WBC (Auto) Salicylates 07/29/20 07/29/20 07/29/20 21:00 23:20 Unknown WBC RBC 3.05 L Hgb 9.7 L Hct 28.6 L MCV MCHC RDW 16.1 H Seg Neuts % (Manual) 75.0 H Lymphocytes % (Manual) 2.0 L Lymphocytes # (Manual) 0.2 L PT INR ABG pH 7.286 L POC ABG pCO2 POC ABG pO2 ABG pO2 ABG Hemoglobin 9.1 L ABG Chloride 109.0 H ABG Glucose 285 H Carboxyhemoglobin Sodium Potassium Chloride Carbon Dioxide BUN Creatinine Glucose POC Glucose 233 H Lactic Acid Calcium Phosphorus AST ALT Ammonia Total Creatine Kinase Troponin T C-Reactive Protein Total Protein Albumin LDL Cholesterol Direct HDL Cholesterol Arterial Blood Glucose 285 H Arterial Blood Ionized Calcium 3.9 L Urine WBC (Auto) Salicylates 07/29/20 07/29/20 07/30/20 Unknown Unknown 05:30 WBC RBC Hgb Hct MCV MCHC RDW Seg Neuts % (Manual) Lymphocytes % (Manual) Lymphocytes # (Manual) PT INR ABG pH POC ABG pCO2 POC ABG pO2 ABG pO2 ABG Hemoglobin ABG Chloride ABG Glucose Carboxyhemoglobin Sodium Potassium Chloride 108.4 H Carbon Dioxide 21 L BUN 41 H Creatinine Glucose 217 H POC Glucose 245 H Lactic Acid 2.70 H* Calcium 6.5 L D Phosphorus AST 104 H ALT 74 H Ammonia Total Creatine Kinase Troponin T C-Reactive Protein Total Protein 5.1 L Albumin 2.4 L LDL Cholesterol Direct HDL Cholesterol Arterial Blood Glucose Arterial Blood Ionized Calcium Urine WBC (Auto) Salicylates 07/30/20 07/30/20 05:45 05:45 WBC RBC 2.50 L Hgb 7.8 L Hct 23.3 L MCV MCHC RDW 16.4 H Seg Neuts % (Manual) Lymphocytes % (Manual) Lymphocytes # (Manual) PT INR ABG pH POC ABG pCO2 POC ABG pO2 ABG pO2 ABG Hemoglobin ABG Chloride ABG Glucose Carboxyhemoglobin Sodium Potassium Chloride 108.4 H Carbon Dioxide 21 L BUN 44 H Creatinine 1.4 H Glucose 279 H POC Glucose Lactic Acid Calcium 6.7 L Phosphorus AST 51 H ALT Ammonia Total Creatine Kinase Troponin T C-Reactive Protein Total Protein 5.5 L Albumin 2.3 L LDL Cholesterol Direct HDL Cholesterol Arterial Blood Glucose Arterial Blood Ionized Calcium Urine WBC (Auto) Salicylates Allied health notes reviewed: nursing
--- NOTE | 2020-07-30 15:05 | Electrocardiograph Report ---
[facility] Test Date: 2020-07-30 Test Time: 11:43:07 Pat Name: PRANAV PORTER Department: Room: A252 1 Gender: M [employer] Operator: YOLI : 1950 Requested By: SHARRI LERNER Order Number: [id number] Reading MD: Tiarra Hoffmann Measurements Intervals Mclean Rate: 111 P: 88 ND: 131 QRS: 82 QRSD: 76 T: 49 QT: 342 QTc: 465 Interpretive Statements Sinus tachycardia Ventricular premature complex Compared to ECG 07/28/2020 10:15:13 Right-axis deviation no longer present Early repolarization no longer present Possible ischemia no longer present ST (T wave) deviation no longer present Myocardial infarct finding no longer present Electronically Signed On 07-30-2020 15:05:23 EDT by Tiarra Hoffmann
--- NOTE | 2020-07-30 15:23 | Procedure Note ---
Date of procedure: 07/30/20 Pre-op diagnosis: respiratory failure Post-op diagnosis: same Procedure: 2 MD consent for emergent arterial line placement due to respiratory failure- Dr La and Dr Alcala. Right radial isabelle inserted using sterile technique. Ulnar pulse palpable. Will test completed. Area prepped with chlorhexidine and the site was infiltrated with 1ml 1% lidocaine. Arterial line was placed using ultrasound; catheter advanced without difficulty. Line was sutured, biopatch placed and tegaderm dressing applied. Arm board placed. Arterial waveform observed on bedside monitor. Line flushed and zeroed. RN at bedside. Pt tolerated procedure well. (time spent placing line not included in daily critical care time) Anesthesia: local Surgeon: MIRYAM REECE [place] Worker: RALPH MENDOSA Estimated blood loss: minimal Pathology: none Condition: stable Disposition: ICU
[2020-07-30] MEDS: MICAFUNGIN 100 MG in SODIUM CHLORIDE 0.9% 100 ML IV SCH (15:50)
[2020-07-30] MEDS: MEROPENEM/NS 1 GRAM/100 ML 1 GRAM/100 ML BAG IV SCH (21:24)
[2020-07-31] MEDS: INSULIN LISPRO 100 UNIT/ML SUB-Q SCH ×3 (00:45→12:31)
--- NOTE | 2020-07-31 06:17 | XRay Report ---
CHEST 1 VIEW, 07/31/2020 1:51 AM CLINICAL INFORMATION/INDICATION: Respiratory failure COMPARISON: Chest radiograph, 07/30/2020 at 2:21 AM FINDINGS: SUPPORT DEVICES: Support tubes and lines remain in stable position. HEART: The cardiac silhouette is normal in size. LUNGS/PLEURA: Patchy bilateral pulmonary opacities, right greater than left, have increased since the previous study. No pneumothorax is visualized. ADDITIONAL FINDINGS: No additional acute findings. IMPRESSION: 1. Slight interval worsening of patchy bilateral pulmonary opacities. Signer Name: Jennifer Canchola MD Signed: 07/31/2020 6:13 AM Workstation Name: [id number]
[2020-07-31 07:38] LABS: Hematocrit 21.5 % (35.5-45.6); Hemoglobin 7.2 gm/dl (11.8-15.2); Mean Corpuscular HGB Conc 33 % (32-34); Mean Corpuscular Volume 94 fl (84-94); Platelet Count 141 K/mm3 (140-440); Red Blood Count 2.29 M/mm3 (3.65-5.03); Red Cell Distribution Width 16.7 % (13.2-15.2)
[2020-07-31 08:30] LABS: BUN/Creatinine Ratio 32; Blood Urea Nitrogen 45 mg/dL (9-20); Calcium 6.9 mg/dL (8.4-10.2); Hemolysis Index 16
[2020-07-31] MEDS ORDERED: VANCOMYCIN/NS 1 GM/250 ML 1 GM/250 ML BAG IV SCH (10:00)
[2020-07-31] MEDS: SENNOSIDES/DOCUSATE SODIUM 8.6/50 MG TAB FEEDTUBE SCH ×2 (10:02→21:39)
[2020-07-31] MEDS: FAMOTIDINE 20 MG TAB PO SCH ×2 (10:02→21:39)
[2020-07-31] MEDS: HEPARIN 5,000 UNIT/1 ML VIAL SUB-Q SCH ×2 (10:02→21:39)
[2020-07-31] MEDS: INSULIN GLARGINE 100 UNITS/ML SUB-Q SCH (10:03)
[2020-07-31] MEDS: fentaNYL DRIP Premix 2,000 MCG/100 ML BAG IV SCH ×2 (10:11→21:56)
[2020-07-31] MEDS: MEROPENEM/NS 1 GRAM/100 ML 1 GRAM/100 ML BAG IV SCH ×2 (11:53→21:40)
[2020-07-31] MEDS ORDERED: INSULIN GLARGINE 100 UNITS/ML SUB-Q ONE (12:00)
--- NOTE | 2020-07-31 12:04 | Progress Note ---
Assessment and Plan Cultures: 07/28/2020 blood culture: yeast, awaiting ID 07/28/2020 urine culture: No growth COVID PCR: negative A/P: 69-year-old care home resident with quadriplegia, spinal cord injury, was brought in due to fever and sepsis: #Septic shock: Source is likely aspiration pneumonia and UTI. CT chest showed patchy airspace disease suggestive of possible aspiration. Abdomen and pelvis without acute process. #UTI #Acute hypoxic respiratory failure: On mechanical ventilation #Transaminitis: Likely sepsis/shock related #Sacral decubitus ulcer: Does not appear infected. Continue wound care Recs: -Given care home resident, at risk of resistant pathogens, treat empirically with meropenem -Stopped vancomycin -Continue micafungin pending yeast ID, hopefully able to de-escalate to fluconazole -Repeat blood cultures -remove any indwelling lines -Follow-up sputum culture -If patient improves and is discharged would need outpatient ophthalmology consult to rule out endophthalmitis. Poor prognosis Omkar Cabrera MD [facility] O: [phone] F: [phone] Subjective Date of service: 07/31/20 Principal diagnosis: Ac. encephalopathy; Ac. hypoxemic resp failure; Septic Shock; PNA; UTI; JEFFERSON Interval history: Afebrile, normal white count. Blood cultures with yeast, started micafungin last night after being informed by pharmacy. Imaging personally reviewed: Chest x-ray: Interval worsening of patchy bilateral pulmonary opacities. Objective - Exam Narrative Exam: Physical Exam: Constitutional: sedated, intubated, on the vent Head, Ears, Nose: Normocephalic, atraumatic. External ears, nose normal Eyes: Conjunctivae/corneas clear. No icterus. No ptosis. Neck: intubated. Cervical collar present Oral: intubated Cardiovascular: S1, S2 + Respiratory: AE fair bilaterally and equal GI: Soft, bowel sounds + Musculoskeletal: No pedal edema, no cyanosis. Skin: Sacral decubitus with dressing Hem/Lymphatic: No palpable cervical or supraclavicular nodes. Psych: no agitation Neurological: sedated, intubated, on the vent, exam limited - Constitutional Vitals: Vital Signs Temp Pulse Resp BP Pulse Ox 98.4 F 104 H 19 113/52 97 07/31/20 08:00 07/31/20 12:00 07/31/20 11:46 07/31/20 07:44 07/31/20 11:46 Temperature -Last 24 Hours Temperature 98.4 F Temperature 99.8 F Temperature 99.1 F Temperature 99.6 F Temperature 98.0 F Temperature 98.2 F - Labs CBC & Chem 7: 07/31/20 07:26 07/31/20 07:26 Labs: Abnormal lab results 07/30/20 07/30/20 07/30/20 Range/Units 12:12 15:50 17:20 RBC (3.65-5.03) M/mm3 Hgb (11.8-15.2) gm/dl Hct (35.5-45.6) % RDW (13.2-15.2) % POC ABG pO2 147.2 H (83-108) mmHg ABG Hemoglobin 7.2 L (12.0-17.5) ABG Potassium 3.3 L (3.40-4.50) mmol/L ABG Chloride 115.0 H (98-107) mmol/L ABG Glucose 269 H (65-95) mg/dL Carboxyhemoglobin 1.6 H (0.5-1.5) Potassium (3.6-5.0) mmol/L Chloride (98-107) mmol/L BUN (9-20) mg/dL Creatinine (0.8-1.3) mg/dL Glucose (75-100) mg/dL POC Glucose 243 H 260 H (70-105) mg/dL Calcium (8.4-10.2) mg/dL Arterial Blood Glucose 269 H (65-95) mg/dL Arterial Blood Ionized Calcium 3.5 L (4.6-5.3) mg/dL 07/30/20 07/31/20 07/31/20 Range/Units 23:16 04:04 04:47 RBC (3.65-5.03) M/mm3 Hgb (11.8-15.2) gm/dl Hct (35.5-45.6) % RDW (13.2-15.2) % POC ABG pO2 (83-108) mmHg ABG Hemoglobin 7.6 L (12.0-17.5) ABG Potassium 3.3 L (3.40-4.50) mmol/L ABG Chloride 113.0 H (98-107) mmol/L ABG Glucose 348 H (65-95) mg/dL Carboxyhemoglobin 0.4 L (0.5-1.5) Potassium (3.6-5.0) mmol/L Chloride (98-107) mmol/L BUN (9-20) mg/dL Creatinine (0.8-1.3) mg/dL Glucose (75-100) mg/dL POC Glucose 298 H 297 H (70-105) mg/dL Calcium (8.4-10.2) mg/dL Arterial Blood Glucose 348 H (65-95) mg/dL Arterial Blood Ionized Calcium 4.1 L (4.6-5.3) mg/dL 07/31/20 07/31/20 07/31/20 Range/Units 07:26 07:26 11:54 RBC 2.29 L (3.65-5.03) M/mm3 Hgb 7.2 L (11.8-15.2) gm/dl Hct 21.5 L (35.5-45.6) % RDW 16.7 H (13.2-15.2) % POC ABG pO2 (83-108) mmHg ABG Hemoglobin (12.0-17.5) ABG Potassium (3.40-4.50) mmol/L ABG Chloride (98-107) mmol/L ABG Glucose (65-95) mg/dL Carboxyhemoglobin (0.5-1.5) Potassium 3.4 L (3.6-5.0) mmol/L Chloride 109.4 H (98-107) mmol/L BUN 45 H (9-20) mg/dL Creatinine 1.4 H (0.8-1.3) mg/dL Glucose 304 H (75-100) mg/dL POC Glucose 302 H (70-105) mg/dL Calcium 6.9 L (8.4-10.2) mg/dL Arterial Blood Glucose (65-95) mg/dL Arterial Blood Ionized Calcium (4.6-5.3) mg/dL
[2020-07-31] MEDS: MICAFUNGIN 100 MG in SODIUM CHLORIDE 0.9% 100 ML IV SCH (14:13)
--- NOTE | 2020-07-31 14:32 | Progress Note ---
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 Unknown Elliptocytes Not Reportable 07/29/20 Unknown Acanthocytes (Spur) Not Reportable 07/29/20 Unknown Rouleaux Not Reportable 07/29/20 Unknown Hemoglobin C Crystals Not Reportable 07/29/20 Unknown Schistocytes Not Reportable 07/29/20 Unknown Malaria parasites Not Reportable 07/29/20 Unknown Lito Bodies Not Reportable 07/29/20 Unknown Hem Pathologist Commnt No 07/29/20 Unknown PT 24.7 Sec. (12.2-14.9) H 07/28/20 08:48 INR 2.17 (0.87-1.13) H 07/28/20 08:48 APTT 34.7 Sec. (24.2-36.6) 07/28/20 08:48 ABG pH 7.325 (7.320-7.450) 07/31/20 04:04 POC ABG pCO2 41.8 mmHg (32.0-48.0) 07/31/20 04:04 ABG pCO2 34.1 mm Hg 07/28/20 10:18 POC ABG pO2 105.9 mmHg (83-108) 07/31/20 04:04 ABG pO2 78.0 mm Hg (80.0-90.0) L 07/28/20 10:18 POC ABG HCO3 21.3 07/31/20 04:04 ABG HCO3 23.0 mmol/L (20.0-26.0) 07/28/20 10:18 ABG O2 Saturation 98.0 (0-100) 07/31/20 04:04 POC ABG Base Excess -4.4 07/31/20 04:04 ABG Base Excess -0.8 mmol/L (-2.0-3.0) 07/28/20 10:18 ABG Hemoglobin 7.6 (12.0-17.5) L 07/31/20 04:04 ABG Oxyhemoglobin 97.3 (94-98) 07/31/20 04:04 ABG Carboxyhemoglobin 1.3 % (0.0-5.0) 07/28/20 10:18 ABG Methemoglobin 0.3 (0.0-1.5) 07/31/20 04:04 ABG Sodium 142.7 mmol/L (136.0-145.0) 07/31/20 04:04 ABG Potassium 3.3 mmol/L (3.40-4.50) L 07/31/20 04:04 ABG Chloride 113.0 mmol/L (98-107) H 07/31/20 04:04 ABG Glucose 348 mg/dL (65-95) H 07/31/20 04:04 VBG pH 7.377 (7.320-7.420) 07/28/20 09:44 Oxyhemoglobin 95.0 % (95.0-99.0) 07/28/20 10:18 Carboxyhemoglobin 0.4 (0.5-1.5) L 07/31/20 04:04 FiO2 0.50 % 07/28/20 10:18 FiO2 % 30.0 07/31/20 04:04 Sodium 143 mmol/L (137-145) 07/31/20 07:26 Potassium 3.4 mmol/L (3.6-5.0) L 07/31/20 07:26 Chloride 109.4 mmol/L (98-107) H 07/31/20 07:26 Carbon Dioxide 23 mmol/L (22-30) 07/31/20 07:26 Anion Gap 14 mmol/L 07/31/20 07:26 BUN 45 mg/dL (9-20) H 07/31/20 07:26 Creatinine 1.4 mg/dL (0.8-1.3) H 07/31/20 07:26 Estimated GFR > 60 ml/min 07/31/20 07:26 BUN/Creatinine Ratio 32 % 07/31/20 07:26 Glucose 304 mg/dL (75-100) H 07/31/20 07:26 POC Glucose 302 mg/dL (70-105) H 07/31/20 11:54 Lactic Acid 1.60 mmol/L (0.7-2.0) 07/30/20 05:45 Calcium 6.9 mg/dL (8.4-10.2) L 07/31/20 07:26 Phosphorus 5.40 mg/dL (2.5-4.5) H 07/28/20 19:50 Magnesium 1.70 mg/dL (1.7-2.3) 07/28/20 19:50 Total Bilirubin 0.20 mg/dL (0.1-1.2) 07/30/20 05:45 AST 51 units/L (5-40) H 07/30/20 05:45 ALT 46 units/L (7-56) 07/30/20 05:45 Alkaline Phosphatase 78 units/L (35-129) 07/30/20 05:45 Ammonia 63.0 umol/L (25-60) H 07/28/20 08:48 Total Creatine Kinase 486 units/L (55-170) H 07/28/20 08:48 Troponin T 0.115 ng/mL (0.00-0.029) H* 07/28/20 08:48 C-Reactive Protein 9.00 mg/dL (0.00-1.30) H 07/28/20 19:50 Total Protein 5.5 g/dL (6.3-8.2) L 07/30/20 05:45 Albumin 2.3 g/dL (3.9-5) L 07/30/20 05:45 Albumin/Globulin Ratio 0.7 % 07/30/20 05:45 Triglycerides 63 mg/dL (2-149) 07/28/20 08:48 Cholesterol 80 mg/dL (50-199) 07/28/20 08:48 LDL Cholesterol Direct 44 mg/dL (50-130) L 07/28/20 08:48 HDL Cholesterol 26 mg/dL (40-59) L 07/28/20 08:48 Cholesterol/HDL Ratio 3.07 % 07/28/20 08:48 Procalcitonin 177.82 ng/mL (<0.15) 07/28/20 19:50 TSH 2.450 mlU/mL (0.270-4.200) 07/28/20 08:48 Arterial Blood Glucose 348 mg/dL (65-95) H 07/31/20 04:04 Arterial Blood Ionized Calcium 4.1 mg/dL (4.6-5.3) L 07/31/20 04:04 Urine Color Linette (Yellow) 07/28/20 Unknown Urine Turbidity Cloudy (Clear) 07/28/20 Unknown Urine pH 5.0 (5.0-7.0) 07/28/20 Unknown Ur Specific [place] 1.018 (1.003-1.030) 07/28/20 Unknown Urine Protein 100 mg/dl mg/dL (Negative) 07/28/20 Unknown Urine Glucose (UA) Neg mg/dL (Negative) 07/28/20 Unknown Urine Ketones Neg mg/dL (Negative) 07/28/20 Unknown Urine Blood Lg (Negative) 07/28/20 Unknown Urine Nitrite Neg (Negative) 07/28/20 Unknown Urine Bilirubin Neg (Negative) 07/28/20 Unknown Urine Urobilinogen 2.0 mg/dL (<2.0) 07/28/20 Unknown Ur Leukocyte Esterase Lg (Negative) 07/28/20 Unknown Urine WBC (Auto) > 182.0 /HPF (0.0-6.0) H 07/28/20 Unknown Urine RBC (Auto) 30.0 /HPF (0.0-6.0) 07/28/20 Unknown U Epithel Cells (Auto) 2.0 /HPF (0-13.0) 07/28/20 Unknown Urine Bacteria (Auto) 1+ /HPF (Negative) 07/28/20 Unknown Ur Transition Epith Cell 4 /HPF 07/28/20 Unknown Hyaline Casts 5 /LPF 07/28/20 Unknown Urine Mucus Few /HPF 07/28/20 Unknown Nasal Screen MRSA (PCR) Negative (Negative) 07/29/20 Unknown Salicylates < 0.3 mg/dL (2.8-20.0) L 07/28/20 09:44 Plasma/Serum Alcohol < 0.01 % (0-0.07) 07/28/20 09:44 Coronavirus (PCR) Negative (Negative) 07/29/20 09:15 Blood Type O POSITIVE 07/28/20 08:48 Antibody Screen Negative 07/28/20 08:48 Microbiology: Microbiology 07/31/20 14:31 Peripheral/Venous Blood Culture - Preliminary Culture in Progress 07/31/20 14:31 Peripheral/Venous Blood Culture - Preliminary Culture in Progress 07/28/20 10:03 Peripheral/Venous Blood Culture - Preliminary Jennyfer Albicans 07/28/20 10:03 Peripheral/Venous Blood Culture - Preliminary Jennyfer Albicans Brennan/IV: Voiding Method Indwelling Catheter Active Medications - Current Medications Current Medications: Generic Name Dose Route Start Last Admin Trade Name Freq PRN Reason Stop Dose Admin Acetaminophen 650 mg 07/28/20 14:27 Acetaminophen 325 Mg Tab PO Q6H PRN Pain, Mild (1-3) Albuterol 2.5 mg 07/28/20 14:27 Albuterol 2.5 Mg/3 Ml Nebu IH Q3H PRN Shortness Of Breath Lipase/Protease/Amylase 1 each 07/29/20 09:55 Lipase 10,500/Protease 25,000/Amylase 43,750 (Units) Dr Cap FEEDTUBE PRN PRN For Clogged Feeding Tube Dextrose 50 ml 07/29/20 15:46 Dextrose 50% In Water (25gm) 50 Ml Syringe IV Q30MIN PRN Hypoglycemia Protocol Famotidine 20 mg 07/30/20 10:00 07/31/20 10:02 Famotidine 20 Mg Tab PO 20 mg BID [place] Administration Fentanyl 50 mcg 07/28/20 09:30 Fentanyl 100 Mcg/2 Ml Inj IV Q10MIN PRN ANALGESIA Heparin Sodium (Porcine) 5,000 unit 07/28/20 22:00 07/31/20 10:02 Heparin 5,000 Unit/1 Ml Vial SUB-Q 5,000 unit Q12HR [place] Administration Hydromorphone HCl 0.25 mg 07/28/20 14:27 Hydromorphone 1 Mg/1 Ml Inj IV Q4H PRN Pain, Moderate (4-6) Hydrophilic Ointment 1 applic 07/28/20 09:30 Lip Therapy Vaseline TP Q2H PRN Dry Lips Fentanyl Citrate 2,000 mcg in 100 mls @ 4.082 mls/hr 07/28/20 16:00 07/31/20 10:11 Fentanyl Drip Premix IV 2 mcg/kg/hr TITR [place] 8.165 mls/hr Administration Protocol 1 MCG/KG/HR Norepinephrine 4 mg in 250 mls @ 7.5 mls/hr 07/28/20 10:00 07/30/20 10:45 Levophed Drip 4 Mg/Ns 250 Ml IV 0 mcg/min TITR [place] 0 mls/hr Titration Protocol 2 MCG/MIN MEROPENEM/NS 1 GRAM/100 ML 1 gram in 100 mls @ 100 mls/hr 07/30/20 22:00 07/31/20 11:53 Merrem/Ns 1 Gram/100 Ml IV 100 mls/hr Q12H [place] Administration Protocol Micafungin Sodium 100 mg/ 100 mls @ 100 mls/hr 07/30/20 15:00 07/31/20 14:13 Sodium Chloride IV 100 mls/hr Q24H [place] Administration Protocol Insulin Glargine 20 units 08/01/20 10:00 Insulin Glargine 100 Units/Ml SUB-Q DAILY [place] Insulin Human Lispro 0 unit 07/29/20 18:00 07/31/20 12:31 Insulin Lispro 100 Unit/Ml SUB-Q 8 unit Q6HR [place] Administration Protocol Multi-Ingred Cream/Lotion/Oil/Oint 1 applic 07/28/20 09:30 Mineral Oil/Petrolatum, White Ophth Oint 3.5 Gm OU Q4H PRN Dry Eye(s) Senna/Docusate Sodium 1 tab 07/28/20 22:00 07/31/20 10:02 Sennosides/Docusate Sodium 8.6/50 Mg Tab FEEDTUBE 1 tab BID [place] Administration Simple Syrup 15 ml 07/29/20 09:55 Simple Syrup 15 Ml FEEDTUBE PRN PRN Hypoglycemia Simple Syrup 30 ml 07/29/20 09:55 Simple Syrup 15 Ml FEEDTUBE PRN PRN Hypoglycemia Sodium Bicarbonate 325 mg 07/29/20 09:55 Sodium Bicarbonate 325 Mg Tab FEEDTUBE PRN PRN For Clogged Feeding Tube Sodium Chloride 10 ml 07/28/20 22:00 07/31/20 10:04 Sodium Chloride 0.9% 10 Ml Flush Syringe IV 10 ml BID [place] Administration Sodium Chloride 10 ml 07/28/20 14:27 Sodium Chloride 0.9% 10 Ml Flush Syringe IV PRN PRN LINE FLUSH Nutrition/Malnutrition Assess - Dietary Evaluation Nutrition/Malnutrition Findings: Nutrition Notes Start: 07/29/20 09:47 Freq: Status: Active Protocol: Document 07/31/20 11:42 RACHAEL (Rec: 07/31/20 11:51 [id number]) Nutrition Notes Initial or Follow up Reassessment Current Diagnosis Acute Kidney Injury, Respiratory Failure Other Pertinent Diagnosis septic shock, encephalopathy, quadriplegia, pneu Current Diet Vital AF 1.2 at 65 ml/hr Labs/Tests K 3.4 BUN 45 Cr 1.4 BG 304 Pertinent Medications Lantus Humalog Height 6 ft Weight 81.647 kg [place] Body Weight (kg) 80.90 BMI 24.4 Weight Status Appropriate Subjective/Other Information FU for TF tolernace. Per RN, MD will adjust insulin for blood sugars- will follow for need of new TF. Percent of energy/protein needs met: 96%/100% Burn Absent Trauma Absent Current % PO Negligible Minimum of two criteria No Fluid Accumulation Mild (non-severe) #2 Nutrition Diagnosis Increased nutrient needs ( specify in comment below) Diagnosis Progress(for reassessment Continues documentation) #1 Nutrition Diagnosis Inadequate oral intake Diagnosis Progress(for reassessment Continues documentation) Is patient on ventilator? Yes Is Patient Ambulatory and/or Out of Bed No REE-([facility]-confined to bed) 1943.100 Calculation Used for Recommendations [facility] Additional Notes Protein: (1.2-2g/kg) 98-163g Fluid: 1ml/kcal or per MD Nutrition Intervention Change Diet Order: Continue Nutrition Support: Vital AF 1.2 at 65ml/hr Flush 100 ml q4h or per MD Kcal 1,872 Protein (gm) 117 Carbohydrates (gm) 173 Fat (gm) 84 Fluid (mL) 1,265 Fiber (gm) 8 Add Supplement/Snack (indicate name/kcal Reji BID /protein ) Provides kCal: 190 Provides Protein (gm) 5 Goal #1 Meet at least 75% of protein and energy needs via TF Anticipated Discharge Needs: Unable to determine at this time Follow-Up By: 08/02/20 Additional Comments FU for TF tolerance, renal and BG labs
--- NOTE | 2020-07-31 14:42 | Progress Note ---
Assessment and Plan Acute possibly on chronic toxic metabolic encephalopathy Acute hypoxemic respiratory failure, on mechanical ventilatory support Severe sepsis with shock, presumably secondary to aspiration pneumonia Aspiration pneumonia, bilateral Urinary tract infection History of quadriplegia Leukocytosis Anemia that is microcytic Coagulopathy. INR 2.17 at presentation Mild hypokalemia Acute kidney injury Metabolic lactic acidosis Non-ST elevation myocardial infarction Adult failure to thrive Moderate to severe protein calorie malnutrition - reduced set rate to 25/min - repeat ABG in am - discontinue PICC line - continue care as below otherwise; - continue to wean Levophed for target MAP > 65 mmHg (off this morning and holding so far) - continue to wean supplemental oxygen for target O2 sat's > 90% acutely - VAP bundle addressed - continue lung protective strategies - continue bronchodilators with pulmonary hygiene per RT - wean per pulmonary driven protocols otherwise - avoid nephrotoxins, renally dose all medications - continue to avoid benzodiazepine's, reduce the possibility of delirium - complete AB's per ID rec's - prn analgesia per CPOT score - Maintenance of sleep-wake cycle, avoid delirium - continue enteral nutritional support at goal rate as tolerated - G.I. & VTE prophylaxis - PT/OT/ROM exercises - continue mobility protocols for pressure ulcer prophylaxis - Monitor hemodynamics closely - continue other care per attending / other consultants - discharge planning ongoing concurrently COVID SPECIFIC INTERVENTIONS: - COVID test result negative .... Re-evaluate in am & prn CONDITION: CRITICAL PROGNOSIS: GUARDED CODE STATUS: FULL CODE The high probability of a clinically significant, sudden or life-threatening deterioration of the [respiratory, cardiovascular & neurologic] system(s) required my full and direct attention, intervention and personal management. The aggregate critical care time was [36] minutes without overlap. Time includes spent on; [x] Data Review and interpretation [x] Patient assessment and monitoring of vital signs [x] Documentation [x] Medication orders and management Subjective Date of service: 07/31/20 Principal diagnosis: Ac. encephalopathy; Ac. hypoxemic resp failure; Septic Shock; PNA; UTI; JEFFERSON Interval history: Patient is seen today for: Acute encephalopathy; Acute hypoxemic respiratory failure; Septic Shock; Aspiration pneumonia; UTI; quadriplegia; JEFFERSON Seen and examined at bedside; 24hour events reviewed; nursing and respiratory care staff consulted; no adverse overnight events reported to me; resting in bed; failed SBT yesterday and requiring significant support now; rate of 30; no emesis or overt aspiration and no high grade fevers; arousable and attempts to respond Objective Vital Signs - 12hr 07/31/20 07/31/20 07/31/20 02:46 03:00 03:16 Temperature Pulse Rate 101 H 101 H 101 H Respiratory 30 H 30 H 30 H Rate Blood Pressure O2 Sat by Pulse 99 99 99 Oximetry 07/31/20 07/31/20 07/31/20 03:20 03:30 03:46 Temperature 99.8 F H Pulse Rate 102 H 99 H Respiratory 30 H 30 H Rate Blood Pressure O2 Sat by Pulse 99 99 Oximetry 07/31/20 07/31/20 07/31/20 04:00 04:16 04:30 Temperature Pulse Rate 102 H 104 H 100 H Respiratory 30 H 19 30 H Rate Blood Pressure O2 Sat by Pulse 99 99 99 Oximetry 07/31/20 07/31/20 07/31/20 04:46 05:00 05:16 Temperature Pulse Rate 101 H 100 H 99 H Respiratory 30 H 30 H 30 H Rate Blood Pressure O2 Sat by Pulse 99 99 98 Oximetry 07/31/20 07/31/20 07/31/20 05:30 05:44 05:46 Temperature Pulse Rate 100 H 105 H 98 H Respiratory 30 H 30 H Rate Blood Pressure 116/54 O2 Sat by Pulse 99 99 99 Oximetry 07/31/20 07/31/20 07/31/20 06:00 06:16 06:30 Temperature Pulse Rate 98 H 99 H Respiratory 30 H 30 H Rate Blood Pressure O2 Sat by Pulse 98 100 100 Oximetry 07/31/20 07/31/20 07/31/20 06:46 07:00 07:16 Temperature Pulse Rate 96 H 100 H 99 H Respiratory 30 H 30 H 30 H Rate Blood Pressure O2 Sat by Pulse 100 100 100 Oximetry 07/31/20 07/31/20 07/31/20 07:30 07:44 07:46 Temperature Pulse Rate 99 H 101 H 105 H Respiratory 30 H 28 H Rate Blood Pressure 113/52 O2 Sat by Pulse 100 100 100 Oximetry 07/31/20 07/31/20 07/31/20 08:00 08:16 08:30 Temperature 98.4 F Pulse Rate 103 H 100 H 101 H Respiratory 30 H 30 H 30 H Rate Blood Pressure O2 Sat by Pulse 99 99 99 Oximetry 07/31/20 07/31/20 07/31/20 08:46 09:00 09:16 Temperature Pulse Rate 100 H 102 H 98 H Respiratory 30 H 30 H 30 H Rate Blood Pressure O2 Sat by Pulse 100 99 100 Oximetry 07/31/20 07/31/20 07/31/20 09:30 09:46 10:00 Temperature Pulse Rate 102 H 98 H 101 H Respiratory 30 H 30 H 30 H Rate Blood Pressure O2 Sat by Pulse 100 100 100 Oximetry 07/31/20 07/31/20 07/31/20 10:16 10:30 10:46 Temperature Pulse Rate 97 H 100 H 106 H Respiratory 30 H 30 H 17 Rate Blood Pressure O2 Sat by Pulse 100 98 98 Oximetry 07/31/20 07/31/20 07/31/20 11:00 11:16 11:30 Temperature Pulse Rate 99 H 97 H 97 H Respiratory 21 27 H 28 H Rate Blood Pressure O2 Sat by Pulse 94 95 96 Oximetry 07/31/20 07/31/20 07/31/20 11:46 12:00 12:16 Temperature 97.3 F L Pulse Rate 93 H 95 H 95 H Respiratory 19 24 30 H Rate Blood Pressure O2 Sat by Pulse 97 97 98 Oximetry 07/31/20 07/31/20 07/31/20 12:29 12:30 12:46 Temperature Pulse Rate 98 H 96 H 99 H Respiratory 30 H 30 H Rate Blood Pressure O2 Sat by Pulse 100 98 98 Oximetry 07/31/20 07/31/20 07/31/20 13:00 13:16 13:30 Temperature Pulse Rate 95 H 95 H 101 H Respiratory 27 H 27 H 16 Rate Blood Pressure O2 Sat by Pulse 98 98 98 Oximetry 07/31/20 07/31/20 13:46 14:00 Temperature Pulse Rate 97 H 96 H Respiratory 30 H 25 H Rate Blood Pressure O2 Sat by Pulse 98 99 Oximetry Constitutional: appears uncomfortable, other (elderly and chronically ill looking male with mildly increased respiratory effort at rest on MVS) Eyes: non-icteric ENT: oropharynx dry, other (ETT #^ 24 cm KEVIN) Neck: supple, no lymphadenopathy, no JVD, other (C-spine collar) Effort: mildly labored Ascultation: Bilateral: diminished breath sounds, rhonchi Percussion: Bilateral: not dull Cardiovascular: regular rate and rhythm Gastrointestinal: normoactive bowel sounds, soft, non-tender, non-distended Integumentary: rash Extremities: no cyanosis, no edema, pulses normal Neurologic: pupils equal and round, unable to assess, other (quadriplegic) Psychiatric: anxious CBC and BMP: 08/01/20 04:30 08/01/20 04:30 ABG, PT/INR, D-dimer: ABG ABG pH 7.325 (7.320-7.450) 07/31/20 04:04 POC ABG pCO2 41.8 mmHg (32.0-48.0) 07/31/20 04:04 ABG pCO2 34.1 mm Hg 07/28/20 10:18 POC ABG pO2 105.9 mmHg (83-108) 07/31/20 04:04 ABG pO2 78.0 mm Hg (80.0-90.0) L 07/28/20 10:18 POC ABG HCO3 21.3 07/31/20 04:04 ABG O2 Saturation 98.0 (0-100) 07/31/20 04:04 PT/INR, D-dimer PT 24.7 Sec. (12.2-14.9) H 07/28/20 08:48 INR 2.17 (0.87-1.13) H 07/28/20 08:48 Abnormal lab findings: Abnormal Labs 07/28/20 07/28/20 07/28/20 08:48 08:48 08:48 WBC 17.0 H RBC 2.77 L Hgb 8.2 L Hct 26.5 L MCV 96 H MCHC 31 L RDW 16.2 H Seg Neuts % (Manual) Lymphocytes % (Manual) Lymphocytes # (Manual) PT 24.7 H INR 2.17 H ABG pH POC ABG pCO2 POC ABG pO2 ABG pO2 ABG Hemoglobin ABG Potassium ABG Chloride ABG Glucose Carboxyhemoglobin Sodium 135 L Potassium 3.5 L Chloride 97.6 L Carbon Dioxide BUN 44 H Creatinine 1.6 H Glucose 431 H POC Glucose Lactic Acid Calcium 7.9 L Phosphorus AST 81 H ALT Ammonia Total Creatine Kinase 486 H Troponin T 0.115 H* C-Reactive Protein Total Protein 5.6 L Albumin 2.6 L LDL Cholesterol Direct 44 L HDL Cholesterol 26 L Arterial Blood Glucose Arterial Blood Ionized Calcium Urine WBC (Auto) Salicylates 07/28/20 07/28/20 07/28/20 08:48 09:44 09:44 WBC RBC Hgb Hct MCV MCHC RDW Seg Neuts % (Manual) Lymphocytes % (Manual) Lymphocytes # (Manual) PT INR ABG pH POC ABG pCO2 POC ABG pO2 ABG pO2 ABG Hemoglobin ABG Potassium ABG Chloride ABG Glucose Carboxyhemoglobin Sodium Potassium Chloride Carbon Dioxide BUN Creatinine Glucose POC Glucose Lactic Acid 3.80 H* Calcium Phosphorus AST ALT Ammonia 63.0 H Total Creatine Kinase Troponin T C-Reactive Protein Total Protein Albumin LDL Cholesterol Direct HDL Cholesterol Arterial Blood Glucose Arterial Blood Ionized Calcium Urine WBC (Auto) Salicylates < 0.3 L 07/28/20 07/28/20 07/28/20 10:18 14:38 15:58 WBC RBC Hgb Hct MCV MCHC RDW Seg Neuts % (Manual) Lymphocytes % (Manual) Lymphocytes # (Manual) PT INR ABG pH POC ABG pCO2 POC ABG pO2 ABG pO2 78.0 L ABG Hemoglobin 7.6 L ABG Potassium ABG Chloride ABG Glucose Carboxyhemoglobin Sodium Potassium Chloride Carbon Dioxide BUN Creatinine Glucose POC Glucose 265 H Lactic Acid 3.90 H* Calcium Phosphorus AST ALT Ammonia Total Creatine Kinase Troponin T C-Reactive Protein Total Protein Albumin LDL Cholesterol Direct HDL Cholesterol Arterial Blood Glucose Arterial Blood Ionized Calcium Urine WBC (Auto) Salicylates 07/28/20 07/28/20 07/28/20 19:50 21:00 Unknown WBC RBC Hgb Hct MCV MCHC RDW Seg Neuts % (Manual) Lymphocytes % (Manual) Lymphocytes # (Manual) PT INR ABG pH 7.107 L POC ABG pCO2 65.6 H POC ABG pO2 ABG pO2 ABG Hemoglobin 9.9 L ABG Potassium ABG Chloride 108.0 H ABG Glucose 299 H Carboxyhemoglobin 0.2 L Sodium Potassium Chloride Carbon Dioxide BUN Creatinine Glucose POC Glucose Lactic Acid Calcium Phosphorus 5.40 H AST ALT Ammonia Total Creatine Kinase Troponin T C-Reactive Protein 9.00 H Total Protein Albumin LDL Cholesterol Direct HDL Cholesterol Arterial Blood Glucose 299 H Arterial Blood Ionized Calcium 4.2 L Urine WBC (Auto) > 182.0 H Salicylates 07/29/20 07/29/20 07/29/20 04:02 13:00 17:13 WBC RBC Hgb Hct MCV MCHC RDW Seg Neuts % (Manual) Lymphocytes % (Manual) Lymphocytes # (Manual) PT INR ABG pH 7.212 L POC ABG pCO2 52.5 H POC ABG pO2 128.3 H ABG pO2 ABG Hemoglobin 10.5 L ABG Potassium ABG Chloride 108.0 H ABG Glucose 239 H Carboxyhemoglobin Sodium Potassium Chloride Carbon Dioxide BUN Creatinine Glucose POC Glucose 212 H 257 H Lactic Acid Calcium Phosphorus AST ALT Ammonia Total Creatine Kinase Troponin T C-Reactive Protein Total Protein Albumin LDL Cholesterol Direct HDL Cholesterol Arterial Blood Glucose 239 H Arterial Blood Ionized Calcium 4.0 L Urine WBC (Auto) Salicylates 07/29/20 07/29/20 07/29/20 21:00 23:20 Unknown WBC RBC 3.05 L Hgb 9.7 L Hct 28.6 L MCV MCHC RDW 16.1 H Seg Neuts % (Manual) 75.0 H Lymphocytes % (Manual) 2.0 L Lymphocytes # (Manual) 0.2 L PT INR ABG pH 7.286 L POC ABG pCO2 POC ABG pO2 ABG pO2 ABG Hemoglobin 9.1 L ABG Potassium ABG Chloride 109.0 H ABG Glucose 285 H Carboxyhemoglobin Sodium Potassium Chloride Carbon Dioxide BUN Creatinine Glucose POC Glucose 233 H Lactic Acid Calcium Phosphorus AST ALT Ammonia Total Creatine Kinase Troponin T C-Reactive Protein Total Protein Albumin LDL Cholesterol Direct HDL Cholesterol Arterial Blood Glucose 285 H Arterial Blood Ionized Calcium 3.9 L Urine WBC (Auto) Salicylates 07/29/20 07/29/20 07/30/20 Unknown Unknown 05:30 WBC RBC Hgb Hct MCV MCHC RDW Seg Neuts % (Manual) Lymphocytes % (Manual) Lymphocytes # (Manual) PT INR ABG pH POC ABG pCO2 POC ABG pO2 ABG pO2 ABG Hemoglobin ABG Potassium ABG Chloride ABG Glucose Carboxyhemoglobin Sodium Potassium Chloride 108.4 H Carbon Dioxide 21 L BUN 41 H Creatinine Glucose 217 H POC Glucose 245 H Lactic Acid 2.70 H* Calcium 6.5 L D Phosphorus AST 104 H ALT 74 H Ammonia Total Creatine Kinase Troponin T C-Reactive Protein Total Protein 5.1 L Albumin 2.4 L LDL Cholesterol Direct HDL Cholesterol Arterial Blood Glucose Arterial Blood Ionized Calcium Urine WBC (Auto) Salicylates 07/30/20 07/30/20 07/30/20 05:45 05:45 12:12 WBC RBC 2.50 L Hgb 7.8 L Hct 23.3 L MCV MCHC RDW 16.4 H Seg Neuts % (Manual) Lymphocytes % (Manual) Lymphocytes # (Manual) PT INR ABG pH POC ABG pCO2 POC ABG pO2 ABG pO2 ABG Hemoglobin ABG Potassium ABG Chloride ABG Glucose Carboxyhemoglobin Sodium Potassium Chloride 108.4 H Carbon Dioxide 21 L BUN 44 H Creatinine 1.4 H Glucose 279 H POC Glucose 243 H Lactic Acid Calcium 6.7 L Phosphorus AST 51 H ALT Ammonia Total Creatine Kinase Troponin T C-Reactive Protein Total Protein 5.5 L Albumin 2.3 L LDL Cholesterol Direct HDL Cholesterol Arterial Blood Glucose Arterial Blood Ionized Calcium Urine WBC (Auto) Salicylates 07/30/20 07/30/20 07/30/20 15:50 17:20 23:16 WBC RBC Hgb Hct MCV MCHC RDW Seg Neuts % (Manual) Lymphocytes % (Manual) Lymphocytes # (Manual) PT INR ABG pH POC ABG pCO2 POC ABG pO2 147.2 H ABG pO2 ABG Hemoglobin 7.2 L ABG Potassium 3.3 L ABG Chloride 115.0 H ABG Glucose 269 H Carboxyhemoglobin 1.6 H Sodium Potassium Chloride Carbon Dioxide BUN Creatinine Glucose POC Glucose 260 H 298 H Lactic Acid Calcium Phosphorus AST ALT Ammonia Total Creatine Kinase Troponin T C-Reactive Protein Total Protein Albumin LDL Cholesterol Direct HDL Cholesterol Arterial Blood Glucose 269 H Arterial Blood Ionized Calcium 3.5 L Urine WBC (Auto) Salicylates 07/31/20 07/31/20 07/31/20 04:04 04:47 07:26 WBC RBC 2.29 L Hgb 7.2 L Hct 21.5 L MCV MCHC RDW 16.7 H Seg Neuts % (Manual) Lymphocytes % (Manual) Lymphocytes # (Manual) PT INR ABG pH POC ABG pCO2 POC ABG pO2 ABG pO2 ABG Hemoglobin 7.6 L ABG Potassium 3.3 L ABG Chloride 113.0 H ABG Glucose 348 H Carboxyhemoglobin 0.4 L Sodium Potassium Chloride Carbon Dioxide BUN Creatinine Glucose POC Glucose 297 H Lactic Acid Calcium Phosphorus AST ALT Ammonia Total Creatine Kinase Troponin T C-Reactive Protein Total Protein Albumin LDL Cholesterol Direct HDL Cholesterol Arterial Blood Glucose 348 H Arterial Blood Ionized Calcium 4.1 L Urine WBC (Auto) Salicylates 07/31/20 07/31/20 07:26 11:54 WBC RBC Hgb Hct MCV MCHC RDW Seg Neuts % (Manual) Lymphocytes % (Manual) Lymphocytes # (Manual) PT INR ABG pH POC ABG pCO2 POC ABG pO2 ABG pO2 ABG Hemoglobin ABG Potassium ABG Chloride ABG Glucose Carboxyhemoglobin Sodium Potassium 3.4 L Chloride 109.4 H Carbon Dioxide BUN 45 H Creatinine 1.4 H Glucose 304 H POC Glucose 302 H Lactic Acid Calcium 6.9 L Phosphorus AST ALT Ammonia Total Creatine Kinase Troponin T C-Reactive Protein Total Protein Albumin LDL Cholesterol Direct HDL Cholesterol Arterial Blood Glucose Arterial Blood Ionized Calcium Urine WBC (Auto) Salicylates Chest x-ray: image reviewed (slight increase in bilateral patchy infiltrates) Allied health notes reviewed: nursing
[2020-07-31] MEDS ORDERED: POTASSIUM CHLORIDE 20 MEQ PACKET FEEDTUBE ONE (15:00)
[2020-07-31] MEDS ORDERED: INSULIN LISPRO 100 UNIT/ML SUB-Q SCH (22:00)
--- NOTE | 2020-08-01 05:23 | XRay Report ---
CHEST 1 VIEW, 08/01/2020 1:31 AM CLINICAL INFORMATION/INDICATION: Respiratory failure COMPARISON: Chest radiograph, 07/31/2020 at 2:14 AM FINDINGS: SUPPORT DEVICES: The esophagogastric tube has been removed. The endotracheal tube remains in stable p osition. HEART: The cardiac silhouette is normal in size. LUNGS/PLEURA: Faint patchy bilateral pulmonary opacities have improved since the previous study. No p neumothorax or large pleural effusion is identified. ADDITIONAL FINDINGS: No additional acute findings. IMPRESSION: 1. Interval improvement of patchy bilateral pulmonary opacities. Signer Name: Jennifer Canchola MD Signed: 08/01/2020 5:19 AM Workstation Name: [id number]
[2020-08-01 06:25] LABS: Hematocrit 20.7 % (35.5-45.6); Mean Corpuscular HGB Conc 34 % (32-34); Mean Corpuscular Volume 90 fl (84-94); Platelet Count 125 K/mm3 (140-440); Red Blood Count 2.29 M/mm3 (3.65-5.03); Red Cell Distribution Width 16.2 % (13.2-15.2)
[2020-08-01 06:45] LABS: BUN/Creatinine Ratio 36; Blood Urea Nitrogen 43 mg/dL (9-20); Calcium 8.1 mg/dL (8.4-10.2); Hemolysis Index 1
[2020-08-01] MEDS ORDERED: POTASSIUM CHLORIDE 20 MEQ PACKET FEEDTUBE ONE (08:00)
[2020-08-01] MEDS ORDERED: SODIUM CHLORIDE 0.9% 500 ML 500 ML IV NR (08:09)
[2020-08-01] MEDS: FAMOTIDINE 20 MG TAB PO SCH ×2 (09:33→21:27)
[2020-08-01] MEDS: MEROPENEM/NS 1 GRAM/100 ML 1 GRAM/100 ML BAG IV SCH ×2 (09:36→21:25)
[2020-08-01] MEDS: INSULIN GLARGINE 100 UNITS/ML SUB-Q SCH (09:37)
[2020-08-01] MEDS: SENNOSIDES/DOCUSATE SODIUM 8.6/50 MG TAB FEEDTUBE SCH ×2 (09:37→21:27)
[2020-08-01] MEDS: HEPARIN 5,000 UNIT/1 ML VIAL SUB-Q SCH (09:37)
[2020-08-01] MEDS: fentaNYL DRIP Premix 2,000 MCG/100 ML BAG IV SCH ×2 (10:56→21:26)
--- NOTE | 2020-08-01 11:35 | Progress Note ---
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 Unknown Plt Clumps, EDTA Not Reportable 07/29/20 Unknown Large Platelets Not Reportable 07/29/20 Unknown Giant Platelets Not Reportable 07/29/20 Unknown Platelet Satelliting Not Reportable 07/29/20 Unknown Plt Morphology Comment Not Reportable 07/29/20 Unknown RBC Morphology Normal 07/29/20 Unknown Dimorphic RBCs Not Reportable 07/29/20 Unknown Polychromasia Not Reportable 07/29/20 Unknown Hypochromasia Not Reportable 07/29/20 Unknown Poikilocytosis Not Reportable 07/29/20 Unknown Anisocytosis Not Reportable 07/29/20 Unknown Microcytosis Not Reportable 07/29/20 Unknown Macrocytosis Not Reportable 07/29/20 Unknown Spherocytes Not Reportable 07/29/20 Unknown Pappenheimer Bodies Not Reportable 07/29/20 Unknown Sickle Cells Not Reportable 07/29/20 Unknown Target Cells Not Reportable 07/29/20 Unknown Tear Drop Cells Not Reportable 07/29/20 Unknown Ovalocytes Not Reportable 07/29/20 Unknown Helmet Cells Not Reportable 07/29/20 Unknown [place] Bodies Not Reportable 07/29/20 Unknown [place] Rings Not Reportable 07/29/20 Unknown [place] Cells Not Reportable 07/29/20 Unknown Bite Cells Not Reportable 07/29/20 Unknown Crenated Cell Not Reportable 07/29/20 Unknown Elliptocytes Not Reportable 07/29/20 Unknown Acanthocytes (Spur) Not Reportable 07/29/20 Unknown Rouleaux Not Reportable 07/29/20 Unknown Hemoglobin C Crystals Not Reportable 07/29/20 Unknown Schistocytes Not Reportable 07/29/20 Unknown Malaria parasites Not Reportable 07/29/20 Unknown Lito Bodies Not Reportable 07/29/20 Unknown Hem Pathologist Commnt No 07/29/20 Unknown PT 24.7 Sec. (12.2-14.9) H 07/28/20 08:48 INR 2.17 (0.87-1.13) H 07/28/20 08:48 APTT 34.7 Sec. (24.2-36.6) 07/28/20 08:48 ABG pH 7.333 pH Units (7.350-7.450) L 08/02/20 03:50 POC ABG pCO2 36.6 mmHg (32.0-48.0) 08/01/20 03:09 ABG pCO2 46.4 mm Hg 08/02/20 03:50 POC ABG pO2 103.7 mmHg (83-108) 08/01/20 03:09 ABG pO2 91.5 mm Hg (80.0-90.0) H 08/02/20 03:50 POC ABG HCO3 23.8 08/01/20 03:09 ABG HCO3 24.1 mmol/L (20.0-26.0) 08/02/20 03:50 ABG O2 Saturation 97.0 % (95.0-99.0) 08/02/20 03:50 ABG O2 Content 10.7 (0.0-44) 08/02/20 03:50 POC ABG Base Excess -0.4 08/01/20 03:09 ABG Base Excess -1.7 mmol/L (-2.0-3.0) 08/02/20 03:50 ABG Hemoglobin 7.9 gm/dl (14.0-18.0) L 08/02/20 03:50 ABG Oxyhemoglobin 97.2 (94-98) 08/01/20 03:09 ABG Carboxyhemoglobin 1.6 % (0.0-5.0) 08/02/20 03:50 ABG Methemoglobin 0.4 % (0.0-1.5) 08/02/20 03:50 ABG Sodium 146.9 mmol/L (136.0-145.0) H 08/01/20 03:09 ABG Potassium 3.2 mmol/L (3.40-4.50) L 08/01/20 03:09 ABG Chloride 116.0 mmol/L (98-107) H 08/01/20 03:09 ABG Glucose 113 mg/dL (65-95) H 08/01/20 03:09 VBG pH 7.377 (7.320-7.420) 07/28/20 09:44 Oxyhemoglobin 95.2 % (95.0-99.0) 08/02/20 03:50 Carboxyhemoglobin 0.7 (0.5-1.5) 08/01/20 03:09 FiO2 40 % 08/02/20 03:50 FiO2 % 30.0 08/01/20 03:09 Sodium 150 mmol/L (137-145) H 08/02/20 Unknown Potassium 3.5 mmol/L (3.6-5.0) L 08/02/20 Unknown Chloride 115.9 mmol/L (98-107) H 08/02/20 Unknown Carbon Dioxide 25 mmol/L (22-30) 08/02/20 Unknown Anion Gap 13 mmol/L 08/02/20 Unknown BUN 42 mg/dL (9-20) H 08/02/20 Unknown Creatinine 1.1 mg/dL (0.8-1.3) 08/02/20 Unknown Estimated GFR > 60 ml/min 08/02/20 Unknown BUN/Creatinine Ratio 38 % 08/02/20 Unknown Glucose 188 mg/dL (75-100) H 08/02/20 Unknown POC Glucose 161 mg/dL (70-105) H 08/02/20 05:46 Hemoglobin A1c 8.8 % (4-6) H 08/01/20 04:30 Lactic Acid 1.60 mmol/L (0.7-2.0) 07/30/20 05:45 Calcium 7.8 mg/dL (8.4-10.2) L 08/02/20 Unknown Ionized Calcium 4.2 mg/dL (4.8-5.6) L 07/30/20 19:01 Phosphorus 2.30 mg/dL (2.5-4.5) L D 08/02/20 Unknown Magnesium 2.30 mg/dL (1.7-2.3) 08/02/20 Unknown Total Bilirubin 0.20 mg/dL (0.1-1.2) 07/30/20 05:45 AST 51 units/L (5-40) H 07/30/20 05:45 ALT 46 units/L (7-56) 07/30/20 05:45 Alkaline Phosphatase 78 units/L (35-129) 07/30/20 05:45 Ammonia 63.0 umol/L (25-60) H 07/28/20 08:48 Total Creatine Kinase 486 units/L (55-170) H 07/28/20 08:48 Troponin T 0.115 ng/mL (0.00-0.029) H* 07/28/20 08:48 C-Reactive Protein 9.00 mg/dL (0.00-1.30) H 07/28/20 19:50 Total Protein 5.5 g/dL (6.3-8.2) L 07/30/20 05:45 Albumin 2.3 g/dL (3.9-5) L 07/30/20 05:45 Albumin/Globulin Ratio 0.7 % 07/30/20 05:45 Triglycerides 63 mg/dL (2-149) 07/28/20 08:48 Cholesterol 80 mg/dL (50-199) 07/28/20 08:48 LDL Cholesterol Direct 44 mg/dL (50-130) L 07/28/20 08:48 HDL Cholesterol 26 mg/dL (40-59) L 07/28/20 08:48 Cholesterol/HDL Ratio 3.07 % 07/28/20 08:48 Procalcitonin 177.82 ng/mL (<0.15) 07/28/20 19:50 TSH 2.450 mlU/mL (0.270-4.200) 07/28/20 08:48 Arterial Blood Glucose 113 mg/dL (65-95) H 08/01/20 03:09 Arterial Blood Ionized Calcium 4.5 mg/dL (4.6-5.3) L 08/01/20 03:09 Urine Color Linette (Yellow) 07/28/20 Unknown Urine Turbidity Cloudy (Clear) 07/28/20 Unknown Urine pH 5.0 (5.0-7.0) 07/28/20 Unknown Ur Specific [place] 1.018 (1.003-1.030) 07/28/20 Unknown Urine Protein 100 mg/dl mg/dL (Negative) 07/28/20 Unknown Urine Glucose (UA) Neg mg/dL (Negative) 07/28/20 Unknown Urine Ketones Neg mg/dL (Negative) 07/28/20 Unknown Urine Blood Lg (Negative) 07/28/20 Unknown Urine Nitrite Neg (Negative) 07/28/20 Unknown Urine Bilirubin Neg (Negative) 07/28/20 Unknown Urine Urobilinogen 2.0 mg/dL (<2.0) 07/28/20 Unknown Ur Leukocyte Esterase Lg (Negative) 07/28/20 Unknown Urine WBC (Auto) > 182.0 /HPF (0.0-6.0) H 07/28/20 Unknown Urine RBC (Auto) 30.0 /HPF (0.0-6.0) 07/28/20 Unknown U Epithel Cells (Auto) 2.0 /HPF (0-13.0) 07/28/20 Unknown Urine Bacteria (Auto) 1+ /HPF (Negative) 07/28/20 Unknown Ur Transition Epith Cell 4 /HPF 07/28/20 Unknown Hyaline Casts 5 /LPF 07/28/20 Unknown Urine Mucus Few /HPF 07/28/20 Unknown Nasal Screen MRSA (PCR) Negative (Negative) 07/29/20 Unknown Salicylates < 0.3 mg/dL (2.8-20.0) L 07/28/20 09:44 Plasma/Serum Alcohol < 0.01 % (0-0.07) 07/28/20 09:44 Coronavirus (PCR) Negative (Negative) 07/29/20 09:15 Blood Type O POSITIVE 08/01/20 08:40 Antibody Screen Negative 08/01/20 08:40 Crossmatch See Detail 08/01/20 08:40 Microbiology: Microbiology 07/31/20 14:31 Peripheral/Venous Blood Culture - Preliminary NO GROWTH AFTER 24 HOURS 07/31/20 14:31 Peripheral/Venous Blood Culture - Preliminary NO GROWTH AFTER 24 HOURS Brennan/IV: Voiding Method Indwelling Catheter Active Medications - Current Medications Current Medications: Generic Name Dose Route Start Last Admin Trade Name Freq PRN Reason Stop Dose Admin Acetaminophen 650 mg 07/28/20 14:27 Acetaminophen 325 Mg Tab PO Q6H PRN Pain, Mild (1-3) Albuterol 2.5 mg 07/28/20 14:27 Albuterol 2.5 Mg/3 Ml Nebu IH Q3H PRN Shortness Of Breath Lipase/Protease/Amylase 1 each 07/29/20 09:55 Lipase 10,500/Protease 25,000/Amylase 43,750 (Units) Dr Cap FEEDTUBE PRN PRN For Clogged Feeding Tube Ascorbic Acid 500 mg 08/01/20 22:00 08/02/20 09:27 Ascorbic Acid 500 Mg Tab PO 500 mg BID [place] Administration Dextrose 50 ml 07/29/20 15:46 Dextrose 50% In Water (25gm) 50 Ml Syringe IV Q30MIN PRN Hypoglycemia Protocol Famotidine 20 mg 07/30/20 10:00 08/02/20 09:27 Famotidine 20 Mg Tab PO 20 mg BID [place] Administration Fentanyl 50 mcg 07/28/20 09:30 08/02/20 13:46 Fentanyl 100 Mcg/2 Ml Inj IV 50 mcg Q10MIN PRN Administration ANALGESIA Fondaparinux 7.5 mg 08/03/20 10:00 Fondaparinux 7.5 Mg/0.6 Ml Inj SUB-Q QDAY [place] Hydromorphone HCl 0.25 mg 07/28/20 14:27 Hydromorphone 1 Mg/1 Ml Inj IV Q4H PRN Pain, Moderate (4-6) Hydrophilic Ointment 1 applic 07/28/20 09:30 Lip Therapy Vaseline TP Q2H PRN Dry Lips Fentanyl Citrate 2,000 mcg in 100 mls @ 4.082 mls/hr 07/28/20 16:00 08/02/20 11:00 Fentanyl Drip Premix IV 4 mcg/kg/hr TITR [place] 16.329 mls/hr Titration Protocol 1 MCG/KG/HR Norepinephrine 4 mg in 250 mls @ 7.5 mls/hr 07/28/20 10:00 07/30/20 10:45 Levophed Drip 4 Mg/Ns 250 Ml IV 0 mcg/min TITR [place] 0 mls/hr Titration Protocol 2 MCG/MIN MEROPENEM/NS 1 GRAM/100 ML 1 gram in 100 mls @ 100 mls/hr 07/30/20 22:00 08/02/20 09:33 Merrem/Ns 1 Gram/100 Ml IV 100 mls/hr Q12H [place] Administration Protocol Fluconazole 200 mls @ 100 mls/hr 08/01/20 15:00 08/01/20 15:30 Diflucan IV 100 mls/hr Q24H [place] Administration Protocol Propofol 1,000 mg in 100 mls @ 2.449 mls/hr 08/02/20 12:00 08/02/20 13:55 Diprivan 10 Mg/Ml IV 25 mcg/kg/min TITR [place] 12.247 mls/hr Titration Protocol 5 MCG/KG/MIN Insulin Glargine 20 units 08/01/20 10:00 08/02/20 09:30 Insulin Glargine 100 Units/Ml SUB-Q 20 units DAILY [place] Administration Insulin Human Lispro 0 unit 07/31/20 16:40 08/02/20 11:47 Insulin Lispro 100 Unit/Ml SUB-Q 4 unit Q6HR PRN Administration Hyperglycemia Protocol Metoclopramide HCl 5 mg 08/01/20 15:00 08/02/20 09:27 Metoclopramide 10 Mg/2 Ml Inj IV 08/04/20 22:01 5 mg BID [place] Administration Multi-Ingred Cream/Lotion/Oil/Oint 1 applic 07/28/20 09:30 Mineral Oil/Petrolatum, White Ophth Oint 3.5 Gm OU Q4H PRN Dry Eye(s) Senna/Docusate Sodium 1 tab 07/28/20 22:00 08/02/20 09:27 Sennosides/Docusate Sodium 8.6/50 Mg Tab FEEDTUBE 1 tab BID [place] Administration Simple Syrup 15 ml 07/29/20 09:55 Simple Syrup 15 Ml FEEDTUBE PRN PRN Hypoglycemia Simple Syrup 30 ml 07/29/20 09:55 Simple Syrup 15 Ml FEEDTUBE PRN PRN Hypoglycemia Sodium Bicarbonate 325 mg 07/29/20 09:55 Sodium Bicarbonate 325 Mg Tab FEEDTUBE PRN PRN For Clogged Feeding Tube Sodium Chloride 10 ml 07/28/20 22:00 08/02/20 09:28 Sodium Chloride 0.9% 10 Ml Flush Syringe IV 10 ml BID [place] Administration Sodium Chloride 10 ml 07/28/20 14:27 Sodium Chloride 0.9% 10 Ml Flush Syringe IV PRN PRN LINE FLUSH Zinc Sulfate 220 mg 08/01/20 15:00 08/02/20 09:27 Zinc Sulfate 220 Mg Cap PO 220 mg BID [place] Administration Nutrition/Malnutrition Assess - Dietary Evaluation Nutrition/Malnutrition Findings: Nutrition Notes Start: 07/29/20 09:47 Freq: Status: Active Protocol: Document 07/31/20 11:42 (Rec: 07/31/20 11:51 [id number]) Nutrition Notes Initial or Follow up Reassessment Current Diagnosis Acute Kidney Injury, Respiratory Failure Other Pertinent Diagnosis septic shock, encephalopathy, quadriplegia, pneu Current Diet Vital AF 1.2 at 65 ml/hr Labs/Tests K 3.4 BUN 45 Cr 1.4 BG 304 Pertinent Medications Lantus Humalog Height 6 ft Weight 81.647 kg [place] Body Weight (kg) 80.90 BMI 24.4 Weight Status Appropriate Subjective/Other Information FU for TF tolernace. Per RN, MD will adjust insulin for blood sugars- will follow for need of new TF. Percent of energy/protein needs met: 96%/100% Burn Absent Trauma Absent Current % PO Negligible Minimum of two criteria No Fluid Accumulation Mild (non-severe) #2 Nutrition Diagnosis Increased nutrient needs ( specify in comment below) Diagnosis Progress(for reassessment Continues documentation) #1 Nutrition Diagnosis Inadequate oral intake Diagnosis Progress(for reassessment Continues documentation) Is patient on ventilator? Yes Is Patient Ambulatory and/or Out of Bed No REE-([facility]-confined to bed) 1943.100 Calculation Used for Recommendations [facility] Additional Notes Protein: (1.2-2g/kg) 98-163g Fluid: 1ml/kcal or per Nutrition Intervention Change Diet Order: Continue Nutrition Support: Vital AF 1.2 at 65ml/hr Flush 100 ml q4h or per MD Kcal 1,872 Protein (gm) 117 Carbohydrates (gm) 173 Fat (gm) 84 Fluid (mL) 1,265 Fiber (gm) 8 Add Supplement/Snack (indicate name/kcal Reji BID /protein ) Provides kCal: 190 Provides Protein (gm) 5 Goal #1 Meet at least 75% of protein and energy needs via TF Anticipated Discharge Needs: Unable to determine at this time Follow-Up By: 08/02/20 Additional Comments FU for TF tolerance, renal and BG labs
[2020-08-01] MEDS ORDERED: INSULIN LISPRO 100 UNIT/ML SUB-Q SCH (12:00)
--- NOTE | 2020-08-01 13:41 | Progress Note ---
Assessment and Plan Acute possibly on chronic toxic metabolic encephalopathy Acute hypoxemic respiratory failure, on mechanical ventilatory support Severe sepsis with shock, presumably secondary to aspiration pneumonia Aspiration pneumonia, bilateral Urinary tract infection History of quadriplegia Leukocytosis Anemia that is microcytic Coagulopathy. INR 2.17 at presentation Mild hypokalemia Acute kidney injury Metabolic lactic acidosis Non-ST elevation myocardial infarction Adult failure to thrive Moderate to severe protein calorie malnutrition - reduced set rate to 20/min - reduced peep to 6 - reduced drive pressure to 25 cm H2O (pulling mid 400's TV's) - repeat ABG in am - replaced Phosphorus aggressively - add Reglan re: high residuals - add Zinc & vitamin C for wound healing - heparin held re: thrombocytopenia - send HIT assay and begin Arixtra - receiving 1 unit PRBC - free water flushes increased - continue care as below otherwise; - continue to wean Levophed for target MAP > 65 mmHg (off this morning and holding so far) - continue to wean supplemental oxygen for target O2 sat's > 90% acutely - VAP bundle addressed - continue lung protective strategies - continue bronchodilators with pulmonary hygiene per RT - wean per pulmonary driven protocols otherwise - avoid nephrotoxins, renally dose all medications - continue to avoid benzodiazepine's, reduce the possibility of delirium - complete AB's per ID rec's - prn analgesia per CPOT score - Maintenance of sleep-wake cycle, avoid delirium - continue enteral nutritional support at goal rate as tolerated - G.I. & VTE prophylaxis - PT/OT/ROM exercises - continue mobility protocols for pressure ulcer prophylaxis - Monitor hemodynamics closely - continue other care per attending / other consultants - discharge planning ongoing concurrently COVID SPECIFIC INTERVENTIONS: - COVID test result negative .... Re-evaluate in am & prn CONDITION: CRITICAL PROGNOSIS: GUARDED CODE STATUS: FULL CODE The high probability of a clinically significant, sudden or life-threatening deterioration of the [respiratory, cardiovascular & neurologic] system(s) required my full and direct attention, intervention and personal management. The aggregate critical care time was [33] minutes without overlap. Time includes spent on; [x] Data Review and interpretation [x] Patient assessment and monitoring of vital signs [x] Documentation [x] Medication orders and management Subjective Date of service: 08/01/20 Principal diagnosis: Ac. encephalopathy; Ac. hypoxemic resp failure; Septic Shock; PNA; UTI; JEFFERSON Interval history: Patient is seen today for: Acute encephalopathy; Acute hypoxemic respiratory failure; Septic Shock; Aspiration pneumonia; UTI; quadriplegia; JEFFERSON Seen and examined at bedside; 24hour events reviewed; nursing and respiratory care staff consulted; no adverse overnight events reported to me; resting in bed; remains on full support; alert; responses equivocal though; no emesis or overt aspiration; afebrile Objective Vital Signs - 12hr 08/01/20 08/01/20 08/01/20 01:46 02:00 02:16 Temperature Pulse Rate 90 84 81 Respiratory 25 H 25 H 25 H Rate Blood Pressure O2 Sat by Pulse 97 94 97 Oximetry 08/01/20 08/01/20 08/01/20 02:30 02:46 03:00 Temperature Pulse Rate 83 78 84 Respiratory 25 H 24 25 H Rate Blood Pressure O2 Sat by Pulse 97 98 99 Oximetry 08/01/20 08/01/20 08/01/20 03:16 03:21 03:24 Temperature 97.9 F Pulse Rate 77 78 Respiratory 25 H Rate Blood Pressure 107/49 O2 Sat by Pulse 98 99 Oximetry 08/01/20 08/01/20 08/01/20 03:30 03:46 04:00 Temperature Pulse Rate 81 84 18 L Respiratory 25 H 22 25 H Rate Blood Pressure O2 Sat by Pulse 99 99 99 Oximetry 08/01/20 08/01/20 08/01/20 04:16 04:30 04:46 Temperature Pulse Rate 83 88 78 Respiratory 25 H 15 25 H Rate Blood Pressure O2 Sat by Pulse 99 99 98 Oximetry 08/01/20 08/01/20 08/01/20 05:00 05:16 05:30 Temperature Pulse Rate 79 89 64 Respiratory 25 H 12 19 Rate Blood Pressure O2 Sat by Pulse 99 100 98 Oximetry 08/01/20 08/01/20 08/01/20 05:46 06:08 06:16 Temperature Pulse Rate 71 75 75 Respiratory 25 H 25 H 25 H Rate Blood Pressure O2 Sat by Pulse 99 100 100 Oximetry 08/01/20 08/01/20 08/01/20 06:30 06:46 07:00 Temperature Pulse Rate 77 79 82 Respiratory 25 H 24 19 Rate Blood Pressure O2 Sat by Pulse 100 100 100 Oximetry 08/01/20 08/01/20 08/01/20 07:16 07:30 07:46 Temperature Pulse Rate 80 78 75 Respiratory 22 25 H 25 H Rate Blood Pressure O2 Sat by Pulse 100 100 100 Oximetry 08/01/20 08/01/20 08/01/20 08:00 08:16 08:20 Temperature 97.1 F L Pulse Rate 76 90 79 Respiratory 25 H 22 Rate Blood Pressure 104/46 O2 Sat by Pulse 100 100 100 Oximetry 08/01/20 08/01/20 08/01/20 08:30 08:46 09:00 Temperature Pulse Rate 88 73 79 Respiratory 24 25 H 25 H Rate Blood Pressure O2 Sat by Pulse 100 100 99 Oximetry 08/01/20 08/01/20 08/01/20 09:16 09:30 09:46 Temperature Pulse Rate 81 80 71 Respiratory 18 24 25 H Rate Blood Pressure O2 Sat by Pulse 99 99 100 Oximetry 08/01/20 08/01/20 08/01/20 11:00 12:34 12:42 Temperature 97.6 F 97.5 F L Pulse Rate 88 71 Respiratory 25 H Rate Blood Pressure 124/52 131/55 O2 Sat by Pulse 100 100 Oximetry Constitutional: appears uncomfortable, other (elderly and chronically ill looking male with mildly increased respiratory effort at rest on MVS) Eyes: non-icteric ENT: oropharynx dry, other (ETT 24 cm KEVIN) Neck: supple, no lymphadenopathy, no JVD, other (C-spine collar) Effort: mildly labored Ascultation: Bilateral: diminished breath sounds, rhonchi Percussion: Bilateral: not dull Cardiovascular: regular rate and rhythm Gastrointestinal: normoactive bowel sounds, soft, non-tender, non-distended Integumentary: rash Extremities: no cyanosis, no edema, pulses normal Neurologic: pupils equal and round, unable to assess, other (quadriplegic) Psychiatric: anxious CBC and BMP: 08/01/20 04:30 08/01/20 04:30 ABG, PT/INR, D-dimer: ABG ABG pH 7.431 (7.320-7.450) 08/01/20 03:09 POC ABG pCO2 36.6 mmHg (32.0-48.0) 08/01/20 03:09 ABG pCO2 34.1 mm Hg 07/28/20 10:18 POC ABG pO2 103.7 mmHg (83-108) 08/01/20 03:09 ABG pO2 78.0 mm Hg (80.0-90.0) L 07/28/20 10:18 POC ABG HCO3 23.8 08/01/20 03:09 ABG O2 Saturation 98.2 (0-100) 08/01/20 03:09 PT/INR, D-dimer PT 24.7 Sec. (12.2-14.9) H 07/28/20 08:48 INR 2.17 (0.87-1.13) H 07/28/20 08:48 Abnormal lab findings: Abnormal Labs 07/28/20 07/28/20 07/28/20 08:48 08:48 08:48 WBC 17.0 H RBC 2.77 L Hgb 8.2 L Hct 26.5 L MCV 96 H MCHC 31 L RDW 16.2 H Plt Count Seg Neuts % (Manual) Lymphocytes % (Manual) Lymphocytes # (Manual) PT 24.7 H INR 2.17 H ABG pH POC ABG pCO2 POC ABG pO2 ABG pO2 ABG Hemoglobin ABG Sodium ABG Potassium ABG Chloride ABG Glucose Carboxyhemoglobin Sodium 135 L Potassium 3.5 L Chloride 97.6 L Carbon Dioxide BUN 44 H Creatinine 1.6 H Glucose 431 H POC Glucose Hemoglobin A1c Lactic Acid Calcium 7.9 L Phosphorus AST 81 H ALT Ammonia Total Creatine Kinase 486 H Troponin T 0.115 H* C-Reactive Protein Total Protein 5.6 L Albumin 2.6 L LDL Cholesterol Direct 44 L HDL Cholesterol 26 L Arterial Blood Glucose Arterial Blood Ionized Calcium Urine WBC (Auto) Salicylates Crossmatch 07/28/20 07/28/20 07/28/20 08:48 09:44 09:44 WBC RBC Hgb Hct MCV MCHC RDW Plt Count Seg Neuts % (Manual) Lymphocytes % (Manual) Lymphocytes # (Manual) PT INR ABG pH POC ABG pCO2 POC ABG pO2 ABG pO2 ABG Hemoglobin ABG Sodium ABG Potassium ABG Chloride ABG Glucose Carboxyhemoglobin Sodium Potassium Chloride Carbon Dioxide BUN Creatinine Glucose POC Glucose Hemoglobin A1c Lactic Acid 3.80 H* Calcium Phosphorus AST ALT Ammonia 63.0 H Total Creatine Kinase Troponin T C-Reactive Protein Total Protein Albumin LDL Cholesterol Direct HDL Cholesterol Arterial Blood Glucose Arterial Blood Ionized Calcium Urine WBC (Auto) Salicylates < 0.3 L Crossmatch 07/28/20 07/28/20 07/28/20 10:18 14:38 15:58 WBC RBC Hgb Hct MCV MCHC RDW Plt Count Seg Neuts % (Manual) Lymphocytes % (Manual) Lymphocytes # (Manual) PT INR ABG pH POC ABG pCO2 POC ABG pO2 ABG pO2 78.0 L ABG Hemoglobin 7.6 L ABG Sodium ABG Potassium ABG Chloride ABG Glucose Carboxyhemoglobin Sodium Potassium Chloride Carbon Dioxide BUN Creatinine Glucose POC Glucose 265 H Hemoglobin A1c Lactic Acid 3.90 H* Calcium Phosphorus AST ALT Ammonia Total Creatine Kinase Troponin T C-Reactive Protein Total Protein Albumin LDL Cholesterol Direct HDL Cholesterol Arterial Blood Glucose Arterial Blood Ionized Calcium Urine WBC (Auto) Salicylates Crossmatch 07/28/20 07/28/20 07/28/20 19:50 21:00 Unknown WBC RBC Hgb Hct MCV MCHC RDW Plt Count Seg Neuts % (Manual) Lymphocytes % (Manual) Lymphocytes # (Manual) PT INR ABG pH 7.107 L POC ABG pCO2 65.6 H POC ABG pO2 ABG pO2 ABG Hemoglobin 9.9 L ABG Sodium ABG Potassium ABG Chloride 108.0 H ABG Glucose 299 H Carboxyhemoglobin 0.2 L Sodium Potassium Chloride Carbon Dioxide BUN Creatinine Glucose POC Glucose Hemoglobin A1c Lactic Acid Calcium Phosphorus 5.40 H AST ALT Ammonia Total Creatine Kinase Troponin T C-Reactive Protein 9.00 H Total Protein Albumin LDL Cholesterol Direct HDL Cholesterol Arterial Blood Glucose 299 H Arterial Blood Ionized Calcium 4.2 L Urine WBC (Auto) > 182.0 H Salicylates Crossmatch 07/29/20 07/29/20 07/29/20 04:02 13:00 17:13 WBC RBC Hgb Hct MCV MCHC RDW Plt Count Seg Neuts % (Manual) Lymphocytes % (Manual) Lymphocytes # (Manual) PT INR ABG pH 7.212 L POC ABG pCO2 52.5 H POC ABG pO2 128.3 H ABG pO2 ABG Hemoglobin 10.5 L ABG Sodium ABG Potassium ABG Chloride 108.0 H ABG Glucose 239 H Carboxyhemoglobin Sodium Potassium Chloride Carbon Dioxide BUN Creatinine Glucose POC Glucose 212 H 257 H Hemoglobin A1c Lactic Acid Calcium Phosphorus AST ALT Ammonia Total Creatine Kinase Troponin T C-Reactive Protein Total Protein Albumin LDL Cholesterol Direct HDL Cholesterol Arterial Blood Glucose 239 H Arterial Blood Ionized Calcium 4.0 L Urine WBC (Auto) Salicylates Crossmatch 07/29/20 07/29/20 07/29/20 21:00 23:20 Unknown WBC RBC 3.05 L Hgb 9.7 L Hct 28.6 L MCV MCHC RDW 16.1 H Plt Count Seg Neuts % (Manual) 75.0 H Lymphocytes % (Manual) 2.0 L Lymphocytes # (Manual) 0.2 L PT INR ABG pH 7.286 L POC ABG pCO2 POC ABG pO2 ABG pO2 ABG Hemoglobin 9.1 L ABG Sodium ABG Potassium ABG Chloride 109.0 H ABG Glucose 285 H Carboxyhemoglobin Sodium Potassium Chloride Carbon Dioxide BUN Creatinine Glucose POC Glucose 233 H Hemoglobin A1c Lactic Acid Calcium Phosphorus AST ALT Ammonia Total Creatine Kinase Troponin T C-Reactive Protein Total Protein Albumin LDL Cholesterol Direct HDL Cholesterol Arterial Blood Glucose 285 H Arterial Blood Ionized Calcium 3.9 L Urine WBC (Auto) Salicylates Crossmatch 07/29/20 07/29/20 07/30/20 Unknown Unknown 05:30 WBC RBC Hgb Hct MCV MCHC RDW Plt Count Seg Neuts % (Manual) Lymphocytes % (Manual) Lymphocytes # (Manual) PT INR ABG pH POC ABG pCO2 POC ABG pO2 ABG pO2 ABG Hemoglobin ABG Sodium ABG Potassium ABG Chloride ABG Glucose Carboxyhemoglobin Sodium Potassium Chloride 108.4 H Carbon Dioxide 21 L BUN 41 H Creatinine Glucose 217 H POC Glucose 245 H Hemoglobin A1c Lactic Acid 2.70 H* Calcium 6.5 L D Phosphorus AST 104 H ALT 74 H Ammonia Total Creatine Kinase Troponin T C-Reactive Protein Total Protein 5.1 L Albumin 2.4 L LDL Cholesterol Direct HDL Cholesterol Arterial Blood Glucose Arterial Blood Ionized Calcium Urine WBC (Auto) Salicylates Crossmatch 07/30/20 07/30/20 07/30/20 05:45 05:45 12:12 WBC RBC 2.50 L Hgb 7.8 L Hct 23.3 L MCV MCHC RDW 16.4 H Plt Count Seg Neuts % (Manual) Lymphocytes % (Manual) Lymphocytes # (Manual) PT INR ABG pH POC ABG pCO2 POC ABG pO2 ABG pO2 ABG Hemoglobin ABG Sodium ABG Potassium ABG Chloride ABG Glucose Carboxyhemoglobin Sodium Potassium Chloride 108.4 H Carbon Dioxide 21 L BUN 44 H Creatinine 1.4 H Glucose 279 H POC Glucose 243 H Hemoglobin A1c Lactic Acid Calcium 6.7 L Phosphorus AST 51 H ALT Ammonia Total Creatine Kinase Troponin T C-Reactive Protein Total Protein 5.5 L Albumin 2.3 L LDL Cholesterol Direct HDL Cholesterol Arterial Blood Glucose Arterial Blood Ionized Calcium Urine WBC (Auto) Salicylates Crossmatch 07/30/20 07/30/20 07/30/20 15:50 17:20 23:16 WBC RBC Hgb Hct MCV MCHC RDW Plt Count Seg Neuts % (Manual) Lymphocytes % (Manual) Lymphocytes # (Manual) PT INR ABG pH POC ABG pCO2 POC ABG pO2 147.2 H ABG pO2 ABG Hemoglobin 7.2 L ABG Sodium ABG Potassium 3.3 L ABG Chloride 115.0 H ABG Glucose 269 H Carboxyhemoglobin 1.6 H Sodium Potassium Chloride Carbon Dioxide BUN Creatinine Glucose POC Glucose 260 H 298 H Hemoglobin A1c Lactic Acid Calcium Phosphorus AST ALT Ammonia Total Creatine Kinase Troponin T C-Reactive Protein Total Protein Albumin LDL Cholesterol Direct HDL Cholesterol Arterial Blood Glucose 269 H Arterial Blood Ionized Calcium 3.5 L Urine WBC (Auto) Salicylates Crossmatch 07/31/20 07/31/20 07/31/20 04:04 04:47 07:26 WBC RBC 2.29 L Hgb 7.2 L Hct 21.5 L MCV MCHC RDW 16.7 H Plt Count Seg Neuts % (Manual) Lymphocytes % (Manual) Lymphocytes # (Manual) PT INR ABG pH POC ABG pCO2 POC ABG pO2 ABG pO2 ABG Hemoglobin 7.6 L ABG Sodium ABG Potassium 3.3 L ABG Chloride 113.0 H ABG Glucose 348 H Carboxyhemoglobin 0.4 L Sodium Potassium Chloride Carbon Dioxide BUN Creatinine Glucose POC Glucose 297 H Hemoglobin A1c Lactic Acid Calcium Phosphorus AST ALT Ammonia Total Creatine Kinase Troponin T C-Reactive Protein Total Protein Albumin LDL Cholesterol Direct HDL Cholesterol Arterial Blood Glucose 348 H Arterial Blood Ionized Calcium 4.1 L Urine WBC (Auto) Salicylates Crossmatch 07/31/20 07/31/20 07/31/20 07:26 11:54 21:27 WBC RBC Hgb Hct MCV MCHC RDW Plt Count Seg Neuts % (Manual) Lymphocytes % (Manual) Lymphocytes # (Manual) PT INR ABG pH POC ABG pCO2 POC ABG pO2 ABG pO2 ABG Hemoglobin ABG Sodium ABG Potassium ABG Chloride ABG Glucose Carboxyhemoglobin Sodium Potassium 3.4 L Chloride 109.4 H Carbon Dioxide BUN 45 H Creatinine 1.4 H Glucose 304 H POC Glucose 302 H 138 H Hemoglobin A1c Lactic Acid Calcium 6.9 L Phosphorus AST ALT Ammonia Total Creatine Kinase Troponin T C-Reactive Protein Total Protein Albumin LDL Cholesterol Direct HDL Cholesterol Arterial Blood Glucose Arterial Blood Ionized Calcium Urine WBC (Auto) Salicylates Crossmatch 08/01/20 08/01/20 08/01/20 03:09 04:30 04:30 WBC RBC 2.29 L Hgb 7.0 L Hct 20.7 L MCV MCHC RDW 16.2 H Plt Count 125 L Seg Neuts % (Manual) Lymphocytes % (Manual) Lymphocytes # (Manual) PT INR ABG pH POC ABG pCO2 POC ABG pO2 ABG pO2 ABG Hemoglobin 7.4 L ABG Sodium 146.9 H ABG Potassium 3.2 L ABG Chloride 116.0 H ABG Glucose 113 H Carboxyhemoglobin Sodium 148 H Potassium 3.4 L Chloride 114.3 H Carbon Dioxide BUN 43 H Creatinine Glucose 109 H POC Glucose Hemoglobin A1c Lactic Acid Calcium 8.1 L D Phosphorus AST ALT Ammonia Total Creatine Kinase Troponin T C-Reactive Protein Total Protein Albumin LDL Cholesterol Direct HDL Cholesterol Arterial Blood Glucose 113 H Arterial Blood Ionized Calcium 4.5 L Urine WBC (Auto) Salicylates Crossmatch 08/01/20 08/01/20 08/01/20 04:30 08:40 08:40 WBC RBC Hgb Hct MCV MCHC RDW Plt Count Seg Neuts % (Manual) Lymphocytes % (Manual) Lymphocytes # (Manual) PT INR ABG pH POC ABG pCO2 POC ABG pO2 ABG pO2 ABG Hemoglobin ABG Sodium ABG Potassium ABG Chloride ABG Glucose Carboxyhemoglobin Sodium Potassium Chloride Carbon Dioxide BUN Creatinine Glucose POC Glucose Hemoglobin A1c 8.8 H Lactic Acid Calcium Phosphorus 1.70 L AST ALT Ammonia Total Creatine Kinase Troponin T C-Reactive Protein Total Protein Albumin LDL Cholesterol Direct HDL Cholesterol Arterial Blood Glucose Arterial Blood Ionized Calcium Urine WBC (Auto) Salicylates Crossmatch See Detail Chest x-ray: image reviewed (improved bilateral infiltrates) Allied health notes reviewed: nursing
--- NOTE | 2020-08-01 15:06 | Progress Note ---
Assessment and Plan Cultures: 07/28/2020 blood culture: C albicans 07/28/2020 urine culture: No growth COVID PCR: negative 07/31/2020 blood culture: No growth so far. A/P: 69-year-old long term resident with quadriplegia, spinal cord injury, was brought in due to fever and sepsis: #Septic shock: Source is likely aspiration pneumonia and UTI. CT chest showed patchy airspace disease suggestive of possible aspiration. Abdomen and pelvis without acute process. #UTI #Acute hypoxic respiratory failure: On mechanical ventilation #Transaminitis: Likely sepsis/shock related #Sacral decubitus ulcer: Does not appear infected. Continue wound care Recs: -Given long term resident, at risk of resistant pathogens, treat empirically with meropenem -De-escalated to fluconazole 400mg q24h as C albicans -Repeat blood cultures -remove any indwelling lines -ordered TTE -Follow-up sputum culture -If patient improves and is discharged would need outpatient ophthalmology c onsult to rule out endophthalmitis. Poor prognosis Omkar Cabrera MD [facility] ([facility] O: [phone] F: [phone] Subjective Date of service: 08/01/20 Principal diagnosis: Ac. encephalopathy; Ac. hypoxemic resp failure; Septic Shock; PNA; UTI; JEFFERSON Interval history: Afebrile, normal white count. Blood cultures finalized as Jennyfer albicans Imaging personally: Chest x-ray: Improvement in bilateral pulmonary opacities Objective - Exam Narrative Exam: Physical Exam: Constitutional: sedated, intubated, on the vent Head, Ears, Nose: Normocephalic, atraumatic. Eyes: Conjunctivae/corneas clear. No icterus. No ptosis. Neck: intubated. Cervical collar present Oral: intubated Cardiovascular: S1, S2 + Respiratory: AE fair bilaterally and equal GI: Soft, bowel sounds + Musculoskeletal: No pedal edema, no cyanosis. Skin: Sacral decubitus with dressing Hem/Lymphatic: No palpable cervical or supraclavicular nodes. Psych: no agitation Neurological: sedated, intubated, on the vent, exam limited - Constitutional Vitals: Vital Signs Temp Pulse Resp BP Pulse Ox 97.5 F L 88 18 131/55 100 08/01/20 12:34 08/01/20 13:46 08/01/20 13:46 08/01/20 12:42 08/01/20 13:46 Temperature -Last 24 Hours Temperature 97.5 F Temperature 97.6 F Temperature 97.1 F Temperature 97.9 F Temperature 97.6 F Temperature 97.8 F - Labs CBC & Chem 7: 08/01/20 04:30 08/01/20 04:30 Labs: Abnormal lab results 07/31/20 08/01/20 08/01/20 Range/Units 21:27 03:09 04:30 RBC 2.29 L (3.65-5.03) M/mm3 Hgb 7.0 L (11.8-15.2) gm/dl Hct 20.7 L (35.5-45.6) % RDW 16.2 H (13.2-15.2) % Plt Count 125 L (140-440) K/mm3 ABG Hemoglobin 7.4 L (12.0-17.5) ABG Sodium 146.9 H (136.0-145.0) mmol/L ABG Potassium 3.2 L (3.40-4.50) mmol/L ABG Chloride 116.0 H (98-107) mmol/L ABG Glucose 113 H (65-95) mg/dL Sodium (137-145) mmol/L Potassium (3.6-5.0) mmol/L Chloride (98-107) mmol/L BUN (9-20) mg/dL Glucose (75-100) mg/dL POC Glucose 138 H (70-105) mg/dL Hemoglobin A1c (4-6) % Calcium (8.4-10.2) mg/dL Phosphorus (2.5-4.5) mg/dL Arterial Blood Glucose 113 H (65-95) mg/dL Arterial Blood Ionized Calcium 4.5 L (4.6-5.3) mg/dL Crossmatch 08/01/20 08/01/20 08/01/20 Range/Units 04:30 04:30 08:40 RBC (3.65-5.03) M/mm3 Hgb (11.8-15.2) gm/dl Hct (35.5-45.6) % RDW (13.2-15.2) % Plt Count (140-440) K/mm3 ABG Hemoglobin (12.0-17.5) ABG Sodium (136.0-145.0) mmol/L ABG Potassium (3.40-4.50) mmol/L ABG Chloride (98-107) mmol/L ABG Glucose (65-95) mg/dL Sodium 148 H (137-145) mmol/L Potassium 3.4 L (3.6-5.0) mmol/L Chloride 114.3 H (98-107) mmol/L BUN 43 H (9-20) mg/dL Glucose 109 H (75-100) mg/dL POC Glucose (70-105) mg/dL Hemoglobin A1c 8.8 H (4-6) % Calcium 8.1 L D (8.4-10.2) mg/dL Phosphorus (2.5-4.5) mg/dL Arterial Blood Glucose (65-95) mg/dL Arterial Blood Ionized Calcium (4.6-5.3) mg/dL Crossmatch See Detail 08/01/20 Range/Units 08:40 RBC (3.65-5.03) M/mm3 Hgb (11.8-15.2) gm/dl Hct (35.5-45.6) % RDW (13.2-15.2) % Plt Count (140-440) K/mm3 ABG Hemoglobin (12.0-17.5) ABG Sodium (136.0-145.0) mmol/L ABG Potassium (3.40-4.50) mmol/L ABG Chloride (98-107) mmol/L ABG Glucose (65-95) mg/dL Sodium (137-145) mmol/L Potassium (3.6-5.0) mmol/L Chloride (98-107) mmol/L BUN (9-20) mg/dL Glucose (75-100) mg/dL POC Glucose (70-105) mg/dL Hemoglobin A1c (4-6) % Calcium (8.4-10.2) mg/dL Phosphorus 1.70 L (2.5-4.5) mg/dL Arterial Blood Glucose (65-95) mg/dL Arterial Blood Ionized Calcium (4.6-5.3) mg/dL Crossmatch
[2020-08-01] MEDS: METOCLOPRAMIDE 10 MG/2 ML INJ IV SCH ×2 (15:14→21:27)
[2020-08-01] MEDS: ZINC SULFATE 220 MG CAP PO SCH ×2 (15:15→21:28)
[2020-08-01] MEDS: FLUCONAZOLE 400 MG 200 ML IV SCH (15:30)
[2020-08-01] MEDS: FONDAPARINUX 2.5 MG/0.5 ML INJ SUB-Q SCH (15:30)
[2020-08-01] MEDS: fentaNYL 100 MCG/2 ML INJ IV PRN ×2 (16:30→17:16)
[2020-08-01] MEDS: K-PHOS NEUTRAL 250 MG TAB PO SCH ×3 (16:33→21:30)
[2020-08-01] MEDS: ASCORBIC ACID 500 MG TAB PO SCH (21:27)
[2020-08-02] MEDS: fentaNYL DRIP Premix 2,000 MCG/100 ML BAG IV SCH ×3 (03:07→17:30)
[2020-08-02 04:02] LABS: ABG Base Excess -1.7 mmol/L (-2.0-3.0); ABG HCO3 24.1 mmol/L (20.0-26.0); ABG Methemoglobin 0.4 % (0.0-1.5); ABG PCO2 46.4 mm Hg; ABG PH 7.333 pH Units (7.350-7.450); ABG PO2 91.5 mm Hg (80.0-90.0)
[2020-08-02 05:20] LABS: Hematocrit 23.9 % (35.5-45.6); Hemoglobin 8.1 gm/dl (11.8-15.2); Mean Corpuscular HGB Conc 34 % (32-34); Mean Corpuscular Volume 90 fl (84-94); Platelet Count 110 K/mm3 (140-440); Red Blood Count 2.66 M/mm3 (3.65-5.03); Red Cell Distribution Width 16.8 % (13.2-15.2)
[2020-08-02 05:39] LABS: BUN/Creatinine Ratio 38; Blood Urea Nitrogen 42 mg/dL (9-20); Calcium 7.8 mg/dL (8.4-10.2); Hemolysis Index 1
--- NOTE | 2020-08-02 06:02 | XRay Report ---
CHEST 1 VIEW, 08/02/2020 4:00 AM CLINICAL INFORMATION/INDICATION: Respiratory failure COMPARISON: Chest radiograph, 08/01/2020 at 2:17 AM FINDINGS: SUPPORT DEVICES: Endotracheal tube remains in stable position. HEART: The cardiac silhouette is normal in size. LUNGS/PLEURA: There has been mild interval worsening of diffuse bilateral pulmonary opacities. No pne umothorax is visualized. ADDITIONAL FINDINGS: No additional acute findings. IMPRESSION: 1. Mild interval worsening of bilateral pulmonary opacities. Signer Name: Jennifer Canchola MD Signed: 08/02/2020 5:57 AM Workstation Name: [id number]
[2020-08-02] MEDS ORDERED: POTASSIUM CHLORIDE 20 MEQ PACKET FEEDTUBE NR (07:42)
--- NOTE | 2020-08-02 07:47 | Progress Note ---
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 (1.8-7.7) 07/29/20 Unknown Band Neutrophils # 0.4 K/mm3 07/29/20 Unknown Lymphocytes # (Manual) 0.2 K/mm3 (1.2-5.4) L 07/29/20 Unknown Abs React Lymphs (Man) 0.0 K/mm3 07/29/20 Unknown Monocytes # (Manual) 0.3 K/mm3 (0.0-0.8) 07/29/20 Unknown Eosinophils # (Manual) 0.0 K/mm3 (0.0-0.4) 07/29/20 Unknown Basophils # (Manual) 0.0 K/mm3 (0.0-0.1) 07/29/20 Unknown Metamyelocytes # 1.1 K/mm3 07/29/20 Unknown Myelocytes # 0.0 K/mm3 07/29/20 Unknown Promyelocytes # 0.0 K/mm3 07/29/20 Unknown Blast Cells # 0.0 K/mm3 07/29/20 Unknown WBC Morphology Not Reportable 07/29/20 Unknown WBC Morphology TNR 07/29/20 Unknown Hypersegmented Neuts Not Reportable 07/29/20 Unknown Hyposegmented Neuts Not Reportable 07/29/20 Unknown Hypogranular Neuts Not Reportable 07/29/20 Unknown Smudge Cells Not Reportable 07/29/20 Unknown Toxic Granulation Not Reportable 07/29/20 Unknown Toxic Vacuolation Not Reportable 07/29/20 Unknown Dohle Bodies Not Reportable 07/29/20 Unknown Pelger-Huet Anomaly Not Reportable 07/29/20 Unknown Janna Rods Not Reportable 07/29/20 Unknown Platelet Estimate Consistent w auto 07/29/20 Unknown Clumped Platelets Not Reportable 07/29/20 Unknown Plt Clumps, EDTA Not Reportable 07/29/20 Unknown Large Platelets Not Reportable 07/29/20 Unknown Giant Platelets Not Reportable 07/29/20 Unknown Platelet Satelliting Not Reportable 07/29/20 Unknown Plt Morphology Comment Not Reportable 07/29/20 Unknown RBC Morphology Normal 07/29/20 Unknown Dimorphic RBCs Not Reportable 07/29/20 Unknown Polychromasia Not Reportable 07/29/20 Unknown Hypochromasia Not Reportable 07/29/20 Unknown Poikilocytosis Not Reportable 07/29/20 Unknown Anisocytosis Not Reportable 07/29/20 Unknown Microcytosis Not Reportable 07/29/20 Unknown Macrocytosis Not Reportable 07/29/20 Unknown Spherocytes Not Reportable 07/29/20 Unknown Pappenheimer Bodies Not Reportable 07/29/20 Unknown Sickle Cells Not Reportable 07/29/20 Unknown Target Cells Not Reportable 07/29/20 Unknown Tear Drop Cells Not Reportable 07/29/20 Unknown Ovalocytes Not Reportable 07/29/20 Unknown Helmet Cells Not Reportable 07/29/20 Unknown Ramirez-[place] Bodies Not Reportable 07/29/20 Unknown [place] Rings Not Reportable 07/29/20 Unknown Sharon Cells Not Reportable 07/29/20 Unknown Bite Cells Not Reportable 07/29/20 Unknown Crenated Cell Not Reportable 07/29/20 Unknown Elliptocytes Not Reportable 07/29/20 Unknown Acanthocytes (Spur) Not Reportable 07/29/20 Unknown Rouleaux Not Reportable 07/29/20 Unknown Hemoglobin C Crystals Not Reportable 07/29/20 Unknown Schistocytes Not Reportable 07/29/20 Unknown Malaria parasites Not Reportable 07/29/20 Unknown Lito Bodies Not Reportable 07/29/20 Unknown Hem Pathologist Commnt No 07/29/20 Unknown PT 24.7 Sec. (12.2-14.9) H 07/28/20 08:48 INR 2.17 (0.87-1.13) H 07/28/20 08:48 APTT 34.7 Sec. (24.2-36.6) 07/28/20 08:48 ABG pH 7.333 pH Units (7.350-7.450) L 08/02/20 03:50 POC ABG pCO2 36.6 mmHg (32.0-48.0) 08/01/20 03:09 ABG pCO2 46.4 mm Hg 08/02/20 03:50 POC ABG pO2 103.7 mmHg (83-108) 08/01/20 03:09 ABG pO2 91.5 mm Hg (80.0-90.0) H 08/02/20 03:50 POC ABG HCO3 23.8 08/01/20 03:09 ABG HCO3 24.1 mmol/L (20.0-26.0) 08/02/20 03:50 ABG O2 Saturation 97.0 % (95.0-99.0) 08/02/20 03:50 ABG O2 Content 10.7 (0.0-44) 08/02/20 03:50 POC ABG Base Excess -0.4 08/01/20 03:09 ABG Base Excess -1.7 mmol/L (-2.0-3.0) 08/02/20 03:50 ABG Hemoglobin 7.9 gm/dl (14.0-18.0) L 08/02/20 03:50 ABG Oxyhemoglobin 97.2 (94-98) 08/01/20 03:09 ABG Carboxyhemoglobin 1.6 % (0.0-5.0) 08/02/20 03:50 ABG Methemoglobin 0.4 % (0.0-1.5) 08/02/20 03:50 ABG Sodium 146.9 mmol/L (136.0-145.0) H 08/01/20 03:09 ABG Potassium 3.2 mmol/L (3.40-4.50) L 08/01/20 03:09 ABG Chloride 116.0 mmol/L (98-107) H 08/01/20 03:09 ABG Glucose 113 mg/dL (65-95) H 08/01/20 03:09 VBG pH 7.377 (7.320-7.420) 07/28/20 09:44 Oxyhemoglobin 95.2 % (95.0-99.0) 08/02/20 03:50 Carboxyhemoglobin 0.7 (0.5-1.5) 08/01/20 03:09 FiO2 40 % 08/02/20 03:50 FiO2 % 30.0 08/01/20 03:09 Sodium 150 mmol/L (137-145) H 08/02/20 Unknown Potassium 3.5 mmol/L (3.6-5.0) L 08/02/20 Unknown Chloride 115.9 mmol/L (98-107) H 08/02/20 Unknown Carbon Dioxide 25 mmol/L (22-30) 08/02/20 Unknown Anion Gap 13 mmol/L 08/02/20 Unknown BUN 42 mg/dL (9-20) H 08/02/20 Unknown Creatinine 1.1 mg/dL (0.8-1.3) 08/02/20 Unknown Estimated GFR > 60 ml/min 08/02/20 Unknown BUN/Creatinine Ratio 38 % 08/02/20 Unknown Glucose 188 mg/dL (75-100) H 08/02/20 Unknown POC Glucose 228 mg/dL (70-105) H 08/02/20 10:54 Hemoglobin A1c 8.8 % (4-6) H 08/01/20 04:30 Lactic Acid 1.60 mmol/L (0.7-2.0) 07/30/20 05:45 Calcium 7.8 mg/dL (8.4-10.2) L 08/02/20 Unknown Ionized Calcium 4.2 mg/dL (4.8-5.6) L 07/30/20 19:01 Phosphorus 2.30 mg/dL (2.5-4.5) L D 08/02/20 Unknown Magnesium 2.30 mg/dL (1.7-2.3) 08/02/20 Unknown Total Bilirubin 0.20 mg/dL (0.1-1.2) 07/30/20 05:45 AST 51 units/L (5-40) H 07/30/20 05:45 ALT 46 units/L (7-56) 07/30/20 05:45 Alkaline Phosphatase 78 units/L (35-129) 07/30/20 05:45 Ammonia 63.0 umol/L (25-60) H 07/28/20 08:48 Total Creatine Kinase 486 units/L (55-170) H 07/28/20 08:48 Troponin T 0.115 ng/mL (0.00-0.029) H* 07/28/20 08:48 C-Reactive Protein 9.00 mg/dL (0.00-1.30) H 07/28/20 19:50 Total Protein 5.5 g/dL (6.3-8.2) L 07/30/20 05:45 Albumin 2.3 g/dL (3.9-5) L 07/30/20 05:45 Albumin/Globulin Ratio 0.7 % 07/30/20 05:45 Triglycerides 63 mg/dL (2-149) 07/28/20 08:48 Cholesterol 80 mg/dL (50-199) 07/28/20 08:48 LDL Cholesterol Direct 44 mg/dL (50-130) L 07/28/20 08:48 HDL Cholesterol 26 mg/dL (40-59) L 07/28/20 08:48 Cholesterol/HDL Ratio 3.07 % 07/28/20 08:48 Procalcitonin 177.82 ng/mL (<0.15) 07/28/20 19:50 TSH 2.450 mlU/mL (0.270-4.200) 07/28/20 08:48 Arterial Blood Glucose 113 mg/dL (65-95) H 08/01/20 03:09 Arterial Blood Ionized Calcium 4.5 mg/dL (4.6-5.3) L 08/01/20 03:09 Urine Color Lin[place] (Yellow) 07/28/20 Unknown Urine Turbidity Cloudy (Clear) 07/28/20 Unknown Urine pH 5.0 (5.0-7.0) 07/28/20 Unknown Ur Specific [place] 1.018 (1.003-1.030) 07/28/20 Unknown Urine Protein 100 mg/dl mg/dL (Negative) 07/28/20 Unknown Urine Glucose (UA) Neg mg/dL (Negative) 07/28/20 Unknown Urine Ketones Neg mg/dL (Negative) 07/28/20 Unknown Urine Blood Lg (Negative) 07/28/20 Unknown Urine Nitrite Neg (Negative) 07/28/20 Unknown Urine Bilirubin Neg (Negative) 07/28/20 Unknown Urine Urobilinogen 2.0 mg/dL (<2.0) 07/28/20 Unknown Ur Leukocyte Esterase Lg (Negative) 07/28/20 Unknown Urine WBC (Auto) > 182.0 /HPF (0.0-6.0) H 07/28/20 Unknown Urine RBC (Auto) 30.0 /HPF (0.0-6.0) 07/28/20 Unknown U Epithel Cells (Auto) 2.0 /HPF (0-13.0) 07/28/20 Unknown Urine Bacteria (Auto) 1+ /HPF (Negative) 07/28/20 Unknown Ur Transition Epith Cell 4 /HPF 07/28/20 Unknown Hyaline Casts 5 /LPF 07/28/20 Unknown Urine Mucus Few /HPF 07/28/20 Unknown Nasal Screen MRSA (PCR) Negative (Negative) 07/29/20 Unknown Salicylates < 0.3 mg/dL (2.8-20.0) L 07/28/20 09:44 Plasma/Serum Alcohol < 0.01 % (0-0.07) 07/28/20 09:44 Coronavirus (PCR) Negative (Negative) 07/29/20 09:15 Blood Type O POSITIVE 08/01/20 08:40 Antibody Screen Negative 08/01/20 08:40 Crossmatch See Detail 08/01/20 08:40 Microbiology: Microbiology 07/31/20 14:31 Peripheral/Venous Blood Culture - Preliminary NO GROWTH AFTER 48 HOURS 07/31/20 14:31 Peripheral/Venous Blood Culture - Preliminary NO GROWTH AFTER 48 HOURS Brennan/IV: Voiding Method Indwelling Catheter Active Medications - Current Medications Current Medications: Generic Name Dose Route Start Last Admin Trade Name Freq PRN Reason Stop Dose Admin Acetaminophen 650 mg 07/28/20 14:27 Acetaminophen 325 Mg Tab PO Q6H PRN Pain, Mild (1-3) Albuterol 2.5 mg 07/28/20 14:27 Albuterol 2.5 Mg/3 Ml Nebu IH Q3H PRN Shortness Of Breath Lipase/Protease/Amylase 1 each 07/29/20 09:55 Lipase 10,500/Protease 25,000/Amylase 43,750 (Units) Dr Velasquez FEEDTUBE PRN PRN For Clogged Feeding Tube Ascorbic Acid 500 mg 08/01/20 22:00 08/02/20 09:27 Ascorbic Acid 500 Mg Tab PO 500 mg BID [place] Administration Dextrose 50 ml 07/29/20 15:46 Dextrose 50% In Water (25gm) 50 Ml Syringe IV Q30MIN PRN Hypoglycemia Protocol Famotidine 20 mg 07/30/20 10:00 08/02/20 09:27 Famotidine 20 Mg Tab PO 20 mg BID [place] Administration Fentanyl 50 mcg 07/28/20 09:30 08/02/20 13:46 Fentanyl 100 Mcg/2 Ml Inj IV 50 mcg Q10MIN PRN Administration ANALGESIA Fondaparinux 7.5 mg 08/03/20 10:00 Fondaparinux 7.5 Mg/0.6 Ml Inj SUB-Q QDAY [place] Hydromorphone HCl 0.25 mg 07/28/20 14:27 Hydromorphone 1 Mg/1 Ml Inj IV Q4H PRN Pain, Moderate (4-6) Hydrophilic Ointment 1 applic 07/28/20 09:30 Lip Therapy Vaseline TP Q2H PRN Dry Lips Fentanyl Citrate 2,000 mcg in 100 mls @ 4.082 mls/hr 07/28/20 16:00 08/02/20 11:00 Fentanyl Drip Premix IV 4 mcg/kg/hr TITR [place] 16.329 mls/hr Titration Protocol 1 MCG/KG/HR Norepinephrine 4 mg in 250 mls @ 7.5 mls/hr 07/28/20 10:00 07/30/20 10:45 Levophed Drip 4 Mg/Ns 250 Ml IV 0 mcg/min TITR [place] 0 mls/hr Titration Protocol 2 MCG/MIN MEROPENEM/NS 1 GRAM/100 ML 1 gram in 100 mls @ 100 mls/hr 07/30/20 22:00 08/02/20 09:33 Merrem/Ns 1 Gram/100 Ml IV 100 mls/hr Q12H [place] Administration Protocol Fluconazole 200 mls @ 100 mls/hr 08/01/20 15:00 08/01/20 15:30 Diflucan IV 100 mls/hr Q24H [place] Administration Protocol Propofol 1,000 mg in 100 mls @ 2.449 mls/hr 08/02/20 12:00 08/02/20 13:55 Diprivan 10 Mg/Ml IV 25 mcg/kg/min TITR [place] 12.247 mls/hr Titration Protocol 5 MCG/KG/MIN Insulin Glargine 20 units 08/01/20 10:00 08/02/20 09:30 Insulin Glargine 100 Units/Ml SUB-Q 20 units DAILY [place] Administration Insulin Human Lispro 0 unit 07/31/20 16:40 08/02/20 11:47 Insulin Lispro 100 Unit/Ml SUB-Q 4 unit Q6HR PRN Administration Hyperglycemia Protocol Metoclopramide HCl 5 mg 08/01/20 15:00 08/02/20 09:27 Metoclopramide 10 Mg/2 Ml Inj IV 08/04/20 22:01 5 mg BID [place] Administration Multi-Ingred Cream/Lotion/Oil/Oint 1 applic 07/28/20 09:30 Mineral Oil/Petrolatum, White Ophth Oint 3.5 Gm OU Q4H PRN Dry Eye(s) Senna/Docusate Sodium 1 tab 07/28/20 22:00 08/02/20 09:27 Sennosides/Docusate Sodium 8.6/50 Mg Tab FEEDTUBE 1 tab BID [place] Administration Simple Syrup 15 ml 07/29/20 09:55 Simple Syrup 15 Ml FEEDTUBE PRN PRN Hypoglycemia Simple Syrup 30 ml 07/29/20 09:55 Simple Syrup 15 Ml FEEDTUBE PRN PRN Hypoglycemia Sodium Bicarbonate 325 mg 07/29/20 09:55 Sodium Bicarbonate 325 Mg Tab FEEDTUBE PRN PRN For Clogged Feeding Tube Sodium Chloride 10 ml 07/28/20 22:00 08/02/20 09:28 Sodium Chloride 0.9% 10 Ml Flush Syringe IV 10 ml BID [place] Administration Sodium Chloride 10 ml 07/28/20 14:27 Sodium Chloride 0.9% 10 Ml Flush Syringe IV PRN PRN LINE FLUSH Zinc Sulfate 220 mg 08/01/20 15:00 08/02/20 09:27 Zinc Sulfate 220 Mg Cap PO 220 mg BID [place] Administration Nutrition/Malnutrition Assess - Dietary Evaluation Nutrition/Malnutrition Findings: Nutrition Notes Start: 07/29/20 09:47 Freq: Status: Active Protocol: Document 07/31/20 11:42 (Rec: 07/31/20 11:51 [id number]) Nutrition Notes Initial or Follow up Reassessment Current Diagnosis Acute Kidney Injury, Respiratory Failure Other Pertinent Diagnosis septic shock, encephalopathy, quadriplegia, pneu Current Diet Vital AF 1.2 at 65 ml/hr Labs/Tests K 3.4 BUN 45 Cr 1.4 BG 304 Pertinent Medications Lantus Humalog Height 6 ft Weight 81.647 kg [place] Body Weight (kg) 80.90 BMI 24.4 Weight Status Appropriate Subjective/Other Information FU for TF tolernace. Per RNMD will adjust insulin for blood sugars- will follow for need of new TF. Percent of energy/protein needs met: 96%/100% Burn Absent Trauma Absent Current % PO Negligible Minimum of two criteria No Fluid Accumulation Mild (non-severe) #2 Nutrition Diagnosis Increased nutrient needs ( specify in comment below) Diagnosis Progress(for reassessment Continues documentation) #1 Nutrition Diagnosis Inadequate oral intake Diagnosis Progress(for reassessment Continues documentation) Is patient on ventilator? Yes Is Patient Ambulatory and/or Out of Bed No REE-([place]-confined to bed) 1943.100 Calculation Used for Recommendations [facility] Additional Notes Protein: (1.2-2g/kg) 98-163g Fluid: 1ml/kcal or per MD Nutrition Intervention Change Diet Order: Continue Nutrition Support: Vital AF 1.2 at 65ml/hr Flush 100 ml q4h or per MD Kcal 1,872 Protein (gm) 117 Carbohydrates (gm) 173 Fat (gm) 84 Fluid (mL) 1,265 Fiber (gm) 8 Add Supplement/Snack (indicate name/kcal Reji BID /protein ) Provides kCal: 190 Provides Protein (gm) 5 Goal #1 Meet at least 75% of protein and energy needs via TF Anticipated Discharge Needs: Unable to determine at this time Follow-Up By: 08/02/20 Additional Comments FU for TF tolerance, renal and BG labs
[2020-08-02] MEDS: FONDAPARINUX 2.5 MG/0.5 ML INJ SUB-Q SCH (09:25)
[2020-08-02] MEDS: ASCORBIC ACID 500 MG TAB PO SCH ×2 (09:27→21:35)
[2020-08-02] MEDS: SENNOSIDES/DOCUSATE SODIUM 8.6/50 MG TAB FEEDTUBE SCH ×2 (09:27→21:35)
[2020-08-02] MEDS: FAMOTIDINE 20 MG TAB PO SCH ×2 (09:27→21:35)
[2020-08-02] MEDS: METOCLOPRAMIDE 10 MG/2 ML INJ IV SCH ×2 (09:27→21:35)
[2020-08-02] MEDS: ZINC SULFATE 220 MG CAP PO SCH ×2 (09:27→21:35)
[2020-08-02] MEDS: K-PHOS NEUTRAL 250 MG TAB PO SCH (09:29)
[2020-08-02] MEDS: INSULIN GLARGINE 100 UNITS/ML SUB-Q SCH (09:30)
[2020-08-02] MEDS: MEROPENEM/NS 1 GRAM/100 ML 1 GRAM/100 ML BAG IV SCH ×2 (09:33→21:34)
[2020-08-02] MEDS: INSULIN LISPRO 100 UNIT/ML SUB-Q PRN ×2 (11:47→17:30)
--- NOTE | 2020-08-02 12:49 | Electrocardiograph Report ---
[facility] Test Date: 2020-07-28 Test Time: 10:15:13 Pat Name: PRANAV PORTER Department: Room: A252 Gender: M [place] Consultant: ASHKAN : 1950 Requested By: SHARRI LERNER Order Number: [id number] Reading MD: Saundra Mccray Measurements Intervals [place] Rate: 125 P: 90 DE: 129 QRS: 93 QRSD: 84 T: 92 QT: 311 QTc: 449 Interpretive Statements Sinus tachycardia with intermittent atrial and ventricular ectopy No previous ECG available for comparison Electronically Signed On 08-02-2020 12:48:42 EDT by Saundra Mccray
[2020-08-02] MEDS: fentaNYL 100 MCG/2 ML INJ IV PRN ×2 (13:46→16:30)
--- NOTE | 2020-08-02 14:45 | Progress Note ---
Assessment and Plan Cultures: 07/28/2020 blood culture: C albicans 07/28/2020 urine culture: No growth COVID PCR: negative 07/31/2020 blood culture: No growth so far. A/P: 69-year-old [facility] resident with quadriplegia, spinal cord injury, was brought in due to fever and sepsis: #Septic shock: Source is likely aspiration pneumonia and UTI. CT chest showed patchy airspace disease suggestive of possible aspiration. Abdomen and pelvis without acute process. #UTI #Acute hypoxic respiratory failure: On mechanical ventilation #Transaminitis: Likely sepsis/shock related #Sacral decubitus ulcer: Does not appear infected. Continue wound care Recs: -Given [facility] resident, at risk of resistant pathogens, treat empirically with meropenem. complete 8 days. -fluconazole 400mg q24h as C albicans -Repeat blood cultures -OK to replace line when cultures negative x48 hours. -TTE without vegetations, OK to defer on SOFY unless cultures persistently positive -Follow-up sputum culture -If patient improves and is discharged would need outpatient ophthalmology consult to rule out endophthalmitis. Poor prognosis Omkar Cabrera MD [facility] O: [phone] F: [phone] Subjective Date of service: 08/02/20 Principal diagnosis: Ac. encephalopathy; Ac. hypoxemic resp failure; Septic Shock; PNA; UTI; [place] Interval history: Low temperatures. Normal white count. imaging personally reviewed: CXR: Worsening of bilateral pulmonary opacities TTE: no veg, poorly seen aortic valve Objective - Exam Narrative Exam: Physical Exam: Constitutional: sedated, intubated, on the vent Head, Ears, Nose: Normocephalic, atraumatic. Eyes: Conjunctivae/corneas clear. No icterus. Neck: intubated. Cervical collar present Oral: intubated Cardiovascular: S1, S2 + Respiratory: AE fair bilaterally and equal GI: Soft, bowel sounds + Musculoskeletal: No pedal edema, no cyanosis. Skin: Sacral decubitus with dressing Hem/Lymphatic: No palpable cervical or supraclavicular nodes. Psych: no agitation Neurological: sedated, intubated, on the vent, exam limited - Constitutional Vitals: Vital Signs Temp Pulse Resp BP Pulse Ox 97.5 F L 111 H 20 169/106 93 08/02/20 11:25 08/02/20 13:00 08/02/20 13:00 08/02/20 13:00 08/02/20 13:00 Temperature -Last 24 Hours Temperature 97.5 F Temperature 97.4 F Temperature 97.9 F Temperature 97.5 F Temperature 97.0 F Temperature 98.4 F - Labs CBC & Chem 7: 08/02/20 Unknown 08/02/20 Unknown Labs: Abnormal lab results 07/30/20 08/01/20 08/01/20 Range/Units 19:01 08:40 17:03 RBC (3.65-5.03) M/mm3 Hgb (11.8-15.2) gm/dl Hct (35.5-45.6) % RDW (13.2-15.2) % Plt Count (140-440) K/mm3 ABG pH (7.350-7.450) pH Units ABG pO2 (80.0-90.0) mm Hg ABG Hemoglobin (14.0-18.0) gm/dl Sodium (137-145) mmol/L Potassium (3.6-5.0) mmol/L Chloride (98-107) mmol/L BUN (9-20) mg/dL Glucose (75-100) mg/dL POC Glucose 129 H (70-105) mg/dL Calcium (8.4-10.2) mg/dL Ionized Calcium 4.2 L (4.8-5.6) mg/dL Phosphorus (2.5-4.5) mg/dL Crossmatch See Detail 08/01/20 08/02/20 08/02/20 Range/Units 23:35 03:50 05:46 RBC (3.65-5.03) M/mm3 Hgb (11.8-15.2) gm/dl Hct (35.5-45.6) % RDW (13.2-15.2) % Plt Count (140-440) K/mm3 ABG pH 7.333 L (7.350-7.450) pH Units ABG pO2 91.5 H (80.0-90.0) mm Hg ABG Hemoglobin 7.9 L (14.0-18.0) gm/dl Sodium (137-145) mmol/L Potassium (3.6-5.0) mmol/L Chloride (98-107) mmol/L BUN (9-20) mg/dL Glucose (75-100) mg/dL POC Glucose 172 H 161 H (70-105) mg/dL Calcium (8.4-10.2) mg/dL Ionized Calcium (4.8-5.6) mg/dL Phosphorus (2.5-4.5) mg/dL Crossmatch 08/02/20 08/02/20 08/02/20 Range/Units Unknown Unknown Unknown RBC 2.66 L (3.65-5.03) M/mm3 Hgb 8.1 L (11.8-15.2) gm/dl Hct 23.9 L (35.5-45.6) % RDW 16.8 H (13.2-15.2) % Plt Count 110 L (140-440) K/mm3 ABG pH (7.350-7.450) pH Units ABG pO2 (80.0-90.0) mm Hg ABG Hemoglobin (14.0-18.0) gm/dl Sodium 150 H (137-145) mmol/L Potassium 3.5 L (3.6-5.0) mmol/L Chloride 115.9 H (98-107) mmol/L BUN 42 H (9-20) mg/dL Glucose 188 H (75-100) mg/dL POC Glucose (70-105) mg/dL Calcium 7.8 L (8.4-10.2) mg/dL Ionized Calcium (4.8-5.6) mg/dL Phosphorus 2.30 L D (2.5-4.5) mg/dL Crossmatch
--- NOTE | 2020-08-02 15:10 | Progress Note ---
Assessment and Plan Acute possibly on chronic toxic metabolic encephalopathy Acute hypoxemic respiratory failure, on mechanical ventilatory support Severe sepsis with shock, presumably secondary to aspiration pneumonia Recent upper ext DVT (06/06) Aspiration pneumonia, bilateral Urinary tract infection History of quadriplegia Leukocytosis Anemia that is microcytic Coagulopathy. INR 2.17 at presentation Mild hypokalemia Acute kidney injury Metabolic lactic acidosis Non-ST elevation myocardial infarction Adult failure to thrive Moderate to severe protein calorie malnutrition - FiO2 increased to 45% - increased peep to 8 - keep set rate at 20/min - keep drive pressure at 25 cm H2O (pulling mid 300's TV's) - repeat ABG in am - conservative volume management - elevated RVSP consistent with VTE; will increase Aritra to full dose - follow H&H - PICC line tomorrow if cultures stay negative - continue Mycamine - follow HIT assay and begin Arixtra - continue free water flushes - continue care as below otherwise; - prn Levophed for target MAP > 65 mmHg - continue to wean supplemental oxygen for target O2 sat's > 90% acutely - VAP bundle addressed - continue lung protective strategies - continue bronchodilators with pulmonary hygiene per RT - wean per pulmonary driven protocols otherwise - avoid nephrotoxins, renally dose all medications - continue to avoid benzodiazepine's, reduce the possibility of delirium - complete AB's per ID rec's - prn analgesia per CPOT score - Maintenance of sleep-wake cycle, avoid delirium - continue enteral nutritional support at goal rate as tolerated - G.I. & VTE prophylaxis - PT/OT/ROM exercises - continue mobility protocols for pressure ulcer prophylaxis - Monitor hemodynamics closely - continue other care per attending / other consultants - discharge planning ongoing concurrently COVID SPECIFIC INTERVENTIONS: - COVID test result negative .... Re-evaluate in am & prn CONDITION: CRITICAL PROGNOSIS: GUARDED CODE STATUS: FULL CODE The high probability of a clinically significant, sudden or life-threatening deterioration of the [respiratory, cardiovascular & neurologic] system(s) required my full and direct attention, intervention and personal management. The aggregate critical care time was [35] minutes without overlap. Time includes spent on; [x] Data Review and interpretation [x] Patient assessment and monitoring of vital signs [x] Documentation [x] Medication orders and management Subjective Date of service: 08/02/20 Principal diagnosis: Ac. encephalopathy; Ac. hypoxemic resp failure; Septic Shock; PNA; UTI; JEFFERSON Interval history: Patient is seen today for: Acute encephalopathy; Acute hypoxemic respiratory failure; Septic Shock; Aspiration pneumonia; UTI; quadriplegia; JEFFERSON Seen and examined at bedside; 24hour events reviewed; nursing and respiratory care staff consulted; no adverse overnight events reported to me; resting in bed; remains on full alsop Doc records revealed recent upper ext DVTY; no emesis or overt aspiration and no gross bleeding reported; severely agitated this morning and had to add Propofol; appears to nod head yes to pain but then he is on a fentanyl drip; Objective Vital Signs - 12hr 08/02/20 08/02/20 08/02/20 03:16 03:30 03:43 Temperature 97.9 F Pulse Rate 77 78 Respiratory 20 21 Rate Blood Pressure O2 Sat by Pulse 97 97 Oximetry 08/02/20 08/02/20 08/02/20 03:46 04:00 04:08 Temperature Pulse Rate 79 82 79 Respiratory 16 20 Rate Blood Pressure 137/59 O2 Sat by Pulse 96 97 95 Oximetry 08/02/20 08/02/20 08/02/20 04:16 04:30 04:46 Temperature Pulse Rate 78 80 97 H Respiratory 20 20 13 Rate Blood Pressure O2 Sat by Pulse 95 95 Oximetry 08/02/20 08/02/20 08/02/20 05:00 05:16 05:30 Temperature Pulse Rate 77 80 77 Respiratory 20 20 19 Rate Blood Pressure O2 Sat by Pulse Oximetry 08/02/20 08/02/20 08/02/20 05:46 06:00 06:16 Temperature Pulse Rate 81 76 78 Respiratory 20 17 18 Rate Blood Pressure O2 Sat by Pulse Oximetry 08/02/20 08/02/20 08/02/20 06:30 06:46 07:00 Temperature 97.4 F L Pulse Rate 79 82 80 Respiratory 20 15 20 Rate Blood Pressure O2 Sat by Pulse Oximetry 08/02/20 08/02/20 08/02/20 07:08 07:16 07:30 Temperature Pulse Rate 76 84 81 Respiratory 20 20 Rate Blood Pressure 122/52 O2 Sat by Pulse Oximetry 08/02/20 08/02/20 08/02/20 07:46 08:00 08:16 Temperature Pulse Rate 84 80 79 Respiratory 20 20 16 Rate Blood Pressure O2 Sat by Pulse Oximetry 08/02/20 08/02/20 08/02/20 08:30 08:46 09:00 Temperature Pulse Rate 79 83 82 Respiratory 17 20 20 Rate Blood Pressure O2 Sat by Pulse Oximetry 08/02/20 08/02/20 08/02/20 09:16 09:30 09:46 Temperature Pulse Rate 86 86 87 Respiratory 17 22 20 Rate Blood Pressure O2 Sat by Pulse Oximetry 08/02/20 08/02/20 08/02/20 10:00 10:16 10:30 Temperature Pulse Rate 95 H 83 117 H Respiratory 20 19 25 H Rate Blood Pressure O2 Sat by Pulse Oximetry 08/02/20 08/02/20 08/02/20 10:46 11:00 11:16 Temperature Pulse Rate 101 H 108 H 106 H Respiratory 20 20 21 Rate Blood Pressure O2 Sat by Pulse Oximetry 08/02/20 08/02/20 08/02/20 11:20 11:25 11:30 Temperature 97.5 F L Pulse Rate 98 H 115 H Respiratory 22 Rate Blood Pressure 147/60 O2 Sat by Pulse 96 95 Oximetry 08/02/20 08/02/20 08/02/20 11:46 12:00 12:16 Temperature Pulse Rate 112 H 121 H 103 H Respiratory 25 H 22 22 Rate Blood Pressure 169/106 169/106 O2 Sat by Pulse 94 97 93 Oximetry 08/02/20 08/02/20 08/02/20 12:30 12:46 13:00 Temperature Pulse Rate 126 H 110 H 111 H Respiratory 19 20 20 Rate Blood Pressure 169/106 169/106 169/106 O2 Sat by Pulse 95 94 93 Oximetry Constitutional: appears uncomfortable, other (elderly and chronically ill looking male with mildly increased respiratory effort at rest on MVS) Eyes: non-icteric ENT: oropharynx dry, other (ETT 24 cm KEVIN) Neck: supple, no lymphadenopathy, no JVD, other (C-spine collar) Effort: mildly labored Ascultation: Bilateral: diminished breath sounds, rhonchi Percussion: Bilateral: not dull Cardiovascular: regular rate and rhythm Gastrointestinal: normoactive bowel sounds, soft, non-tender, non-distended Integumentary: rash Extremities: no cyanosis, pulses normal, edema (lower extremities) Neurologic: pupils equal and round, unable to assess, other (quadriplegic) Psychiatric: anxious CBC and BMP: 08/02/20 Unknown 08/02/20 Unknown ABG, PT/INR, D-dimer: ABG ABG pH 7.333 pH Units (7.350-7.450) L 08/02/20 03:50 POC ABG pCO2 36.6 mmHg (32.0-48.0) 08/01/20 03:09 ABG pCO2 46.4 mm Hg 08/02/20 03:50 POC ABG pO2 103.7 mmHg (83-108) 08/01/20 03:09 ABG pO2 91.5 mm Hg (80.0-90.0) H 08/02/20 03:50 POC ABG HCO3 23.8 08/01/20 03:09 ABG O2 Saturation 97.0 % (95.0-99.0) 08/02/20 03:50 PT/INR, D-dimer PT 24.7 Sec. (12.2-14.9) H 07/28/20 08:48 INR 2.17 (0.87-1.13) H 07/28/20 08:48 Abnormal lab findings: Abnormal Labs 07/28/20 07/28/20 07/28/20 08:48 08:48 08:48 WBC 17.0 H RBC 2.77 L Hgb 8.2 L Hct 26.5 L MCV 96 H MCHC 31 L RDW 16.2 H Plt Count Seg Neuts % (Manual) Lymphocytes % (Manual) Lymphocytes # (Manual) PT 24.7 H INR 2.17 H ABG pH POC ABG pCO2 POC ABG pO2 ABG pO2 ABG Hemoglobin ABG Sodium ABG Potassium ABG Chloride ABG Glucose Carboxyhemoglobin Sodium 135 L Potassium 3.5 L Chloride 97.6 L Carbon Dioxide BUN 44 H Creatinine 1.6 H Glucose 431 H POC Glucose Hemoglobin A1c Lactic Acid Calcium 7.9 L Ionized Calcium Phosphorus AST 81 H ALT Ammonia Total Creatine Kinase 486 H Troponin T 0.115 H* C-Reactive Protein Total Protein 5.6 L Albumin 2.6 L LDL Cholesterol Direct 44 L HDL Cholesterol 26 L Arterial Blood Glucose Arterial Blood Ionized Calcium Urine WBC (Auto) Salicylates Crossmatch 07/28/20 07/28/20 07/28/20 08:48 09:44 09:44 WBC RBC Hgb Hct MCV MCHC RDW Plt Count Seg Neuts % (Manual) Lymphocytes % (Manual) Lymphocytes # (Manual) PT INR ABG pH POC ABG pCO2 POC ABG pO2 ABG pO2 ABG Hemoglobin ABG Sodium ABG Potassium ABG Chloride ABG Glucose Carboxyhemoglobin Sodium Potassium Chloride Carbon Dioxide BUN Creatinine Glucose POC Glucose Hemoglobin A1c Lactic Acid 3.80 H* Calcium Ionized Calcium Phosphorus AST ALT Ammonia 63.0 H Total Creatine Kinase Troponin T C-Reactive Protein Total Protein Albumin LDL Cholesterol Direct HDL Cholesterol Arterial Blood Glucose Arterial Blood Ionized Calcium Urine WBC (Auto) Salicylates < 0.3 L Crossmatch 07/28/20 07/28/20 07/28/20 10:18 14:38 15:58 WBC RBC Hgb Hct MCV MCHC RDW Plt Count Seg Neuts % (Manual) Lymphocytes % (Manual) Lymphocytes # (Manual) PT INR ABG pH POC ABG pCO2 POC ABG pO2 ABG pO2 78.0 L ABG Hemoglobin 7.6 L ABG Sodium ABG Potassium ABG Chloride ABG Glucose Carboxyhemoglobin Sodium Potassium Chloride Carbon Dioxide BUN Creatinine Glucose POC Glucose 265 H Hemoglobin A1c Lactic Acid 3.90 H* Calcium Ionized Calcium Phosphorus AST ALT Ammonia Total Creatine Kinase Troponin T C-Reactive Protein Total Protein Albumin LDL Cholesterol Direct HDL Cholesterol Arterial Blood Glucose Arterial Blood Ionized Calcium Urine WBC (Auto) Salicylates Crossmatch 07/28/20 07/28/20 07/28/20 19:50 21:00 Unknown WBC RBC Hgb Hct MCV MCHC RDW Plt Count Seg Neuts % (Manual) Lymphocytes % (Manual) Lymphocytes # (Manual) PT INR ABG pH 7.107 L POC ABG pCO2 65.6 H POC ABG pO2 ABG pO2 ABG Hemoglobin 9.9 L ABG Sodium ABG Potassium ABG Chloride 108.0 H ABG Glucose 299 H Carboxyhemoglobin 0.2 L Sodium Potassium Chloride Carbon Dioxide BUN Creatinine Glucose POC Glucose Hemoglobin A1c Lactic Acid Calcium Ionized Calcium Phosphorus 5.40 H AST ALT Ammonia Total Creatine Kinase Troponin T C-Reactive Protein 9.00 H Total Protein Albumin LDL Cholesterol Direct HDL Cholesterol Arterial Blood Glucose 299 H Arterial Blood Ionized Calcium 4.2 L Urine WBC (Auto) > 182.0 H Salicylates Crossmatch 07/29/20 07/29/20 07/29/20 04:02 13:00 17:13 WBC RBC Hgb Hct MCV MCHC RDW Plt Count Seg Neuts % (Manual) Lymphocytes % (Manual) Lymphocytes # (Manual) PT INR ABG pH 7.212 L POC ABG pCO2 52.5 H POC ABG pO2 128.3 H ABG pO2 ABG Hemoglobin 10.5 L ABG Sodium ABG Potassium ABG Chloride 108.0 H ABG Glucose 239 H Carboxyhemoglobin Sodium Potassium Chloride Carbon Dioxide BUN Creatinine Glucose POC Glucose 212 H 257 H Hemoglobin A1c Lactic Acid Calcium Ionized Calcium Phosphorus AST ALT Ammonia Total Creatine Kinase Troponin T C-Reactive Protein Total Protein Albumin LDL Cholesterol Direct HDL Cholesterol Arterial Blood Glucose 239 H Arterial Blood Ionized Calcium 4.0 L Urine WBC (Auto) Salicylates Crossmatch 07/29/20 07/29/20 07/29/20 21:00 23:20 Unknown WBC RBC 3.05 L Hgb 9.7 L Hct 28.6 L MCV MCHC RDW 16.1 H Plt Count Seg Neuts % (Manual) 75.0 H Lymphocytes % (Manual) 2.0 L Lymphocytes # (Manual) 0.2 L PT INR ABG pH 7.286 L POC ABG pCO2 POC ABG pO2 ABG pO2 ABG Hemoglobin 9.1 L ABG Sodium ABG Potassium ABG Chloride 109.0 H ABG Glucose 285 H Carboxyhemoglobin Sodium Potassium Chloride Carbon Dioxide BUN Creatinine Glucose POC Glucose 233 H Hemoglobin A1c Lactic Acid Calcium Ionized Calcium Phosphorus AST ALT Ammonia Total Creatine Kinase Troponin T C-Reactive Protein Total Protein Albumin LDL Cholesterol Direct HDL Cholesterol Arterial Blood Glucose 285 H Arterial Blood Ionized Calcium 3.9 L Urine WBC (Auto) Salicylates Crossmatch 07/29/20 07/29/20 07/30/20 Unknown Unknown 05:30 WBC RBC Hgb Hct MCV MCHC RDW Plt Count Seg Neuts % (Manual) Lymphocytes % (Manual) Lymphocytes # (Manual) PT INR ABG pH POC ABG pCO2 POC ABG pO2 ABG pO2 ABG Hemoglobin ABG Sodium ABG Potassium ABG Chloride ABG Glucose Carboxyhemoglobin Sodium Potassium Chloride 108.4 H Carbon Dioxide 21 L BUN 41 H Creatinine Glucose 217 H POC Glucose 245 H Hemoglobin A1c Lactic Acid 2.70 H* Calcium 6.5 L D Ionized Calcium Phosphorus AST 104 H ALT 74 H Ammonia Total Creatine Kinase Troponin T C-Reactive Protein Total Protein 5.1 L Albumin 2.4 L LDL Cholesterol Direct HDL Cholesterol Arterial Blood Glucose Arterial Blood Ionized Calcium Urine WBC (Auto) Salicylates Crossmatch 07/30/20 07/30/20 07/30/20 05:45 05:45 12:12 WBC RBC 2.50 L Hgb 7.8 L Hct 23.3 L MCV MCHC RDW 16.4 H Plt Count Seg Neuts % (Manual) Lymphocytes % (Manual) Lymphocytes # (Manual) PT INR ABG pH POC ABG pCO2 POC ABG pO2 ABG pO2 ABG Hemoglobin ABG Sodium ABG Potassium ABG Chloride ABG Glucose Carboxyhemoglobin Sodium Potassium Chloride 108.4 H Carbon Dioxide 21 L BUN 44 H Creatinine 1.4 H Glucose 279 H POC Glucose 243 H Hemoglobin A1c Lactic Acid Calcium 6.7 L Ionized Calcium Phosphorus AST 51 H ALT Ammonia Total Creatine Kinase Troponin T C-Reactive Protein Total Protein 5.5 L Albumin 2.3 L LDL Cholesterol Direct HDL Cholesterol Arterial Blood Glucose Arterial Blood Ionized Calcium Urine WBC (Auto) Salicylates Crossmatch 07/30/20 07/30/20 07/30/20 15:50 17:20 19:01 WBC RBC Hgb Hct MCV MCHC RDW Plt Count Seg Neuts % (Manual) Lymphocytes % (Manual) Lymphocytes # (Manual) PT INR ABG pH POC ABG pCO2 POC ABG pO2 147.2 H ABG pO2 ABG Hemoglobin 7.2 L ABG Sodium ABG Potassium 3.3 L ABG Chloride 115.0 H ABG Glucose 269 H Carboxyhemoglobin 1.6 H Sodium Potassium Chloride Carbon Dioxide BUN Creatinine Glucose POC Glucose 260 H Hemoglobin A1c Lactic Acid Calcium Ionized Calcium 4.2 L Phosphorus AST ALT Ammonia Total Creatine Kinase Troponin T C-Reactive Protein Total Protein Albumin LDL Cholesterol Direct HDL Cholesterol Arterial Blood Glucose 269 H Arterial Blood Ionized Calcium 3.5 L Urine WBC (Auto) Salicylates Crossmatch 07/30/20 07/31/20 07/31/20 23:16 04:04 04:47 WBC RBC Hgb Hct MCV MCHC RDW Plt Count Seg Neuts % (Manual) Lymphocytes % (Manual) Lymphocytes # (Manual) PT INR ABG pH POC ABG pCO2 POC ABG pO2 ABG pO2 ABG Hemoglobin 7.6 L ABG Sodium ABG Potassium 3.3 L ABG Chloride 113.0 H ABG Glucose 348 H Carboxyhemoglobin 0.4 L Sodium Potassium Chloride Carbon Dioxide BUN Creatinine Glucose POC Glucose 298 H 297 H Hemoglobin A1c Lactic Acid Calcium Ionized Calcium Phosphorus AST ALT Ammonia Total Creatine Kinase Troponin T C-Reactive Protein Total Protein Albumin LDL Cholesterol Direct HDL Cholesterol Arterial Blood Glucose 348 H Arterial Blood Ionized Calcium 4.1 L Urine WBC (Auto) Salicylates Crossmatch 07/31/20 07/31/20 07/31/20 07:26 07:26 11:54 WBC RBC 2.29 L Hgb 7.2 L Hct 21.5 L MCV MCHC RDW 16.7 H Plt Count Seg Neuts % (Manual) Lymphocytes % (Manual) Lymphocytes # (Manual) PT INR ABG pH POC ABG pCO2 POC ABG pO2 ABG pO2 ABG Hemoglobin ABG Sodium ABG Potassium ABG Chloride ABG Glucose Carboxyhemoglobin Sodium Potassium 3.4 L Chloride 109.4 H Carbon Dioxide BUN 45 H Creatinine 1.4 H Glucose 304 H POC Glucose 302 H Hemoglobin A1c Lactic Acid Calcium 6.9 L Ionized Calcium Phosphorus AST ALT Ammonia Total Creatine Kinase Troponin T C-Reactive Protein Total Protein Albumin LDL Cholesterol Direct HDL Cholesterol Arterial Blood Glucose Arterial Blood Ionized Calcium Urine WBC (Auto) Salicylates Crossmatch 07/31/20 08/01/20 08/01/20 21:27 03:09 04:30 WBC RBC 2.29 L Hgb 7.0 L Hct 20.7 L MCV MCHC RDW 16.2 H Plt Count 125 L Seg Neuts % (Manual) Lymphocytes % (Manual) Lymphocytes # (Manual) PT INR ABG pH POC ABG pCO2 POC ABG pO2 ABG pO2 ABG Hemoglobin 7.4 L ABG Sodium 146.9 H ABG Potassium 3.2 L ABG Chloride 116.0 H ABG Glucose 113 H Carboxyhemoglobin Sodium Potassium Chloride Carbon Dioxide BUN Creatinine Glucose POC Glucose 138 H Hemoglobin A1c Lactic Acid Calcium Ionized Calcium Phosphorus AST ALT Ammonia Total Creatine Kinase Troponin T C-Reactive Protein Total Protein Albumin LDL Cholesterol Direct HDL Cholesterol Arterial Blood Glucose 113 H Arterial Blood Ionized Calcium 4.5 L Urine WBC (Auto) Salicylates Crossmatch 08/01/20 08/01/20 08/01/20 04:30 04:30 08:40 WBC RBC Hgb Hct MCV MCHC RDW Plt Count Seg Neuts % (Manual) Lymphocytes % (Manual) Lymphocytes # (Manual) PT INR ABG pH POC ABG pCO2 POC ABG pO2 ABG pO2 ABG Hemoglobin ABG Sodium ABG Potassium ABG Chloride ABG Glucose Carboxyhemoglobin Sodium 148 H Potassium 3.4 L Chloride 114.3 H Carbon Dioxide BUN 43 H Creatinine Glucose 109 H POC Glucose Hemoglobin A1c 8.8 H Lactic Acid Calcium 8.1 L D Ionized Calcium Phosphorus AST ALT Ammonia Total Creatine Kinase Troponin T C-Reactive Protein Total Protein Albumin LDL Cholesterol Direct HDL Cholesterol Arterial Blood Glucose Arterial Blood Ionized Calcium Urine WBC (Auto) Salicylates Crossmatch See Detail 08/01/20 08/01/20 08/01/20 08:40 17:03 23:35 WBC RBC Hgb Hct MCV MCHC RDW Plt Count Seg Neuts % (Manual) Lymphocytes % (Manual) Lymphocytes # (Manual) PT INR ABG pH POC ABG pCO2 POC ABG pO2 ABG pO2 ABG Hemoglobin ABG Sodium ABG Potassium ABG Chloride ABG Glucose Carboxyhemoglobin Sodium Potassium Chloride Carbon Dioxide BUN Creatinine Glucose POC Glucose 129 H 172 H Hemoglobin A1c Lactic Acid Calcium Ionized Calcium Phosphorus 1.70 L AST ALT Ammonia Total Creatine Kinase Troponin T C-Reactive Protein Total Protein Albumin LDL Cholesterol Direct HDL Cholesterol Arterial Blood Glucose Arterial Blood Ionized Calcium Urine WBC (Auto) Salicylates Crossmatch 08/02/20 08/02/20 08/02/20 03:50 05:46 Unknown WBC RBC 2.66 L Hgb 8.1 L Hct 23.9 L MCV MCHC RDW 16.8 H Plt Count 110 L Seg Neuts % (Manual) Lymphocytes % (Manual) Lymphocytes # (Manual) PT INR ABG pH 7.333 L POC ABG pCO2 POC ABG pO2 ABG pO2 91.5 H ABG Hemoglobin 7.9 L ABG Sodium ABG Potassium ABG Chloride ABG Glucose Carboxyhemoglobin Sodium Potassium Chloride Carbon Dioxide BUN Creatinine Glucose POC Glucose 161 H Hemoglobin A1c Lactic Acid Calcium Ionized Calcium Phosphorus AST ALT Ammonia Total Creatine Kinase Troponin T C-Reactive Protein Total Protein Albumin LDL Cholesterol Direct HDL Cholesterol Arterial Blood Glucose Arterial Blood Ionized Calcium Urine WBC (Auto) Salicylates Crossmatch 08/02/20 08/02/20 Unknown Unknown WBC RBC Hgb Hct MCV MCHC RDW Plt Count Seg Neuts % (Manual) Lymphocytes % (Manual) Lymphocytes # (Manual) PT INR ABG pH POC ABG pCO2 POC ABG pO2 ABG pO2 ABG Hemoglobin ABG Sodium ABG Potassium ABG Chloride ABG Glucose Carboxyhemoglobin Sodium 150 H Potassium 3.5 L Chloride 115.9 H Carbon Dioxide BUN 42 H Creatinine Glucose 188 H POC Glucose Hemoglobin A1c Lactic Acid Calcium 7.8 L Ionized Calcium Phosphorus 2.30 L D AST ALT Ammonia Total Creatine Kinase Troponin T C-Reactive Protein Total Protein Albumin LDL Cholesterol Direct HDL Cholesterol Arterial Blood Glucose Arterial Blood Ionized Calcium Urine WBC (Auto) Salicylates Crossmatch Chest x-ray: image reviewed (mild interstitial edema) Allied health notes reviewed: nursing
[2020-08-02] MEDS: FLUCONAZOLE 400 MG 200 ML IV SCH (15:46)
[2020-08-02] MEDS ORDERED: MIDAZOLAM 2 MG/2 ML INJ IV PRN (16:35)
[2020-08-02] MEDS ORDERED: MIDAZOLAM 100 MG in SODIUM CHLORIDE 0.9% 80 ML IV SCH (17:00)
[2020-08-03 04:41] LABS: Hematocrit 24.1 % (35.5-45.6); Hemoglobin 8.1 gm/dl (11.8-15.2); Mean Corpuscular HGB Conc 33 % (32-34); Mean Corpuscular Volume 92 fl (84-94); Platelet Count 118 K/mm3 (140-440); Red Blood Count 2.62 M/mm3 (3.65-5.03); Red Cell Distribution Width 17.4 % (13.2-15.2)
[2020-08-03 04:59] LABS: BUN/Creatinine Ratio 43; Blood Urea Nitrogen 47 mg/dL (9-20); Calcium 8.1 mg/dL (8.4-10.2); Hemolysis Index 13
[2020-08-03] MEDS: fentaNYL DRIP Premix 2,000 MCG/100 ML BAG IV SCH (06:00)
--- NOTE | 2020-08-03 06:39 | XRay Report ---
CHEST 1 VIEW, 08/03/2020 4:27 AM CLINICAL INFORMATION/INDICATION: Respiratory failure COMPARISON: Chest radiograph, 08/02/2020 at 4:34 AM FINDINGS: SUPPORT DEVICES: Endotracheal tube remains in stable position. HEART: The cardiac silhouette is normal in size. LUNGS/PLEURA: Diffuse faint bilateral pulmonary opacities have not significantly changed. No large pl eural effusion or pneumothorax is identified. ADDITIONAL FINDINGS: No additional acute findings. IMPRESSION: 1. Stable bilateral pulmonary opacities. Signer Name: Jennifer Canchola MD Signed: 08/03/2020 6:35 AM Workstation Name: [id number]
[2020-08-03] MEDS: METOCLOPRAMIDE 10 MG/2 ML INJ IV SCH ×2 (09:41→21:11)
[2020-08-03] MEDS: SENNOSIDES/DOCUSATE SODIUM 8.6/50 MG TAB FEEDTUBE SCH ×2 (09:41→21:25)
[2020-08-03] MEDS: ZINC SULFATE 220 MG CAP PO SCH ×2 (09:41→21:24)
[2020-08-03] MEDS: ASCORBIC ACID 500 MG TAB PO SCH ×2 (09:41→21:25)
[2020-08-03] MEDS: MEROPENEM/NS 1 GRAM/100 ML 1 GRAM/100 ML BAG IV SCH ×2 (09:42→21:22)
[2020-08-03] MEDS: FAMOTIDINE 20 MG TAB PO SCH ×2 (09:42→21:25)
[2020-08-03] MEDS: INSULIN GLARGINE 100 UNITS/ML SUB-Q SCH (09:52)
[2020-08-03] MEDS ORDERED: FONDAPARINUX 7.5 MG/0.6 ML INJ SUB-Q SCH (10:00)
--- NOTE | 2020-08-03 10:45 | Progress Note ---
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 Myelocytes # 0.0 K/mm3 07/29/20 Unknown Promyelocytes # 0.0 K/mm3 07/29/20 Unknown Blast Cells # 0.0 K/mm3 07/29/20 Unknown WBC Morphology Not Reportable 07/29/20 Unknown WBC Morphology TNR 07/29/20 Unknown Hypersegmented Neuts Not Reportable 07/29/20 Unknown Hyposegmented Neuts Not Reportable 07/29/20 Unknown Hypogranular Neuts Not Reportable 07/29/20 Unknown Smudge Cells Not Reportable 07/29/20 Unknown Toxic Granulation Not Reportable 07/29/20 Unknown Toxic Vacuolation Not Reportable 07/29/20 Unknown Dohle Bodies Not Reportable 07/29/20 Unknown Pelger-Huet Anomaly Not Reportable 07/29/20 Unknown Janna Rods Not Reportable 07/29/20 Unknown Platelet Estimate Consistent w auto 07/29/20 Unknown Clumped Platelets Not Reportable 07/29/20 Unknown Plt Clumps, EDTA Not Reportable 07/29/20 Unknown Large Platelets Not Reportable 07/29/20 Unknown Giant Platelets Not Reportable 07/29/20 Unknown Platelet Satelliting Not Reportable 07/29/20 Unknown Plt Morphology Comment Not Reportable 07/29/20 Unknown RBC Morphology Normal 07/29/20 Unknown Dimorphic RBCs Not Reportable 07/29/20 Unknown Polychromasia Not Reportable 07/29/20 Unknown Hypochromasia Not Reportable 07/29/20 Unknown Poikilocytosis Not Reportable 07/29/20 Unknown Anisocytosis Not Reportable 07/29/20 Unknown Microcytosis Not Reportable 07/29/20 Unknown Macrocytosis Not Reportable 07/29/20 Unknown Spherocytes Not Reportable 07/29/20 Unknown Pappenheimer Bodies Not Reportable 07/29/20 Unknown Sickle Cells Not Reportable 07/29/20 Unknown Target Cells Not Reportable 07/29/20 Unknown Tear Drop Cells Not Reportable 07/29/20 Unknown Ovalocytes Not Reportable 07/29/20 Unknown Helmet Cells Not Reportable 07/29/20 Unknown Ramirez-Sutton-Alpine Bodies Not Reportable 07/29/20 Unknown [place] Rings Not Reportable 07/29/20 Unknown [place] Cells Not Reportable 07/29/20 Unknown Bite Cells Not Reportable 07/29/20 Unknown Crenated Cell Not Reportable 07/29/20 Unknown Elliptocytes Not Reportable 07/29/20 Unknown Acanthocytes (Spur) Not Reportable 07/29/20 Unknown Rouleaux Not Reportable 07/29/20 Unknown Hemoglobin C Crystals Not Reportable 07/29/20 Unknown Schistocytes Not Reportable 07/29/20 Unknown Malaria parasites Not Reportable 07/29/20 Unknown Lito Bodies Not Reportable 07/29/20 Unknown Hem Pathologist Commnt No 07/29/20 Unknown PT 24.7 Sec. (12.2-14.9) H 07/28/20 08:48 INR 2.17 (0.87-1.13) H 07/28/20 08:48 APTT 34.7 Sec. (24.2-36.6) 07/28/20 08:48 ABG pH 7.341 (7.320-7.450) 08/03/20 02:59 POC ABG pCO2 42.2 mmHg (32.0-48.0) 08/03/20 02:59 ABG pCO2 46.4 mm Hg 08/02/20 03:50 POC ABG pO2 90.5 mmHg (83-108) 08/03/20 02:59 ABG pO2 91.5 mm Hg (80.0-90.0) H 08/02/20 03:50 POC ABG HCO3 22.3 08/03/20 02:59 ABG HCO3 24.1 mmol/L (20.0-26.0) 08/02/20 03:50 ABG O2 Saturation 96.5 (0-100) 08/03/20 02:59 ABG O2 Content 10.7 (0.0-44) 08/02/20 03:50 POC ABG Base Excess -3.2 08/03/20 02:59 ABG Base Excess -1.7 mmol/L (-2.0-3.0) 08/02/20 03:50 ABG Hemoglobin 8.1 (12.0-17.5) L 08/03/20 02:59 ABG Oxyhemoglobin 95.3 (94-98) 08/03/20 02:59 ABG Carboxyhemoglobin 1.6 % (0.0-5.0) 08/02/20 03:50 ABG Methemoglobin 0.3 (0.0-1.5) 08/03/20 02:59 ABG Sodium 143.1 mmol/L (136.0-145.0) 08/03/20 02:59 ABG Potassium 3.7 mmol/L (3.40-4.50) 08/03/20 02:59 ABG Chloride 113.0 mmol/L (98-107) H 08/03/20 02:59 ABG Glucose 143 mg/dL (65-95) H 08/03/20 02:59 VBG pH 7.377 (7.320-7.420) 07/28/20 09:44 Oxyhemoglobin 95.2 % (95.0-99.0) 08/02/20 03:50 Carboxyhemoglobin 0.9 (0.5-1.5) 08/03/20 02:59 FiO2 40 % 08/02/20 03:50 FiO2 % 45.0 08/03/20 02:59 Sodium 148 mmol/L (137-145) H 08/03/20 04:16 Potassium 4.2 mmol/L (3.6-5.0) 08/03/20 04:16 Chloride 114.5 mmol/L (98-107) H 08/03/20 04:16 Carbon Dioxide 25 mmol/L (22-30) 08/03/20 04:16 Anion Gap 13 mmol/L 08/03/20 04:16 BUN 47 mg/dL (9-20) H 08/03/20 04:16 Creatinine 1.1 mg/dL (0.8-1.3) 08/03/20 04:16 Estimated GFR > 60 ml/min 08/03/20 04:16 BUN/Creatinine Ratio 43 % 08/03/20 04:16 Glucose 158 mg/dL (75-100) H 08/03/20 04:16 POC Glucose 190 mg/dL (70-105) H 08/03/20 11:26 Hemoglobin A1c 8.8 % (4-6) H 08/01/20 04:30 Lactic Acid 1.60 mmol/L (0.7-2.0) 07/30/20 05:45 Calcium 8.1 mg/dL (8.4-10.2) L 08/03/20 04:16 Ionized Calcium 4.2 mg/dL (4.8-5.6) L 07/30/20 19:01 Phosphorus 2.30 mg/dL (2.5-4.5) L 08/03/20 04:16 Magnesium 2.30 mg/dL (1.7-2.3) 08/02/20 Unknown Total Bilirubin 0.20 mg/dL (0.1-1.2) 07/30/20 05:45 AST 51 units/L (5-40) H 07/30/20 05:45 ALT 46 units/L (7-56) 07/30/20 05:45 Alkaline Phosphatase 78 units/L (35-129) 07/30/20 05:45 Ammonia 63.0 umol/L (25-60) H 07/28/20 08:48 Total Creatine Kinase 486 units/L (55-170) H 07/28/20 08:48 Troponin T 0.115 ng/mL (0.00-0.029) H* 07/28/20 08:48 C-Reactive Protein 9.00 mg/dL (0.00-1.30) H 07/28/20 19:50 Total Protein 5.5 g/dL (6.3-8.2) L 07/30/20 05:45 Albumin 2.3 g/dL (3.9-5) L 07/30/20 05:45 Albumin/Globulin Ratio 0.7 % 07/30/20 05:45 Triglycerides 63 mg/dL (2-149) 07/28/20 08:48 Cholesterol 80 mg/dL (50-199) 07/28/20 08:48 LDL Cholesterol Direct 44 mg/dL (50-130) L 07/28/20 08:48 HDL Cholesterol 26 mg/dL (40-59) L 07/28/20 08:48 Cholesterol/HDL Ratio 3.07 % 07/28/20 08:48 Procalcitonin 177.82 ng/mL (<0.15) 07/28/20 19:50 TSH 2.450 mlU/mL (0.270-4.200) 07/28/20 08:48 Arterial Blood Glucose 143 mg/dL (65-95) H 08/03/20 02:59 Arterial Blood Ionized Calcium 4.8 mg/dL (4.6-5.3) 08/03/20 02:59 Urine Color Linette (Yellow) 07/28/20 Unknown Urine Turbidity Cloudy (Clear) 07/28/20 Unknown Urine pH 5.0 (5.0-7.0) 07/28/20 Unknown Ur Specific [place] 1.018 (1.003-1.030) 07/28/20 Unknown Urine Protein 100 mg/dl mg/dL (Negative) 07/28/20 Unknown Urine Glucose (UA) Neg mg/dL (Negative) 07/28/20 Unknown Urine Ketones Neg mg/dL (Negative) 07/28/20 Unknown Urine Blood Lg (Negative) 07/28/20 Unknown Urine Nitrite Neg (Negative) 07/28/20 Unknown Urine Bilirubin Neg (Negative) 07/28/20 Unknown Urine Urobilinogen 2.0 mg/dL (<2.0) 07/28/20 Unknown Ur Leukocyte Esterase Lg (Negative) 07/28/20 Unknown Urine WBC (Auto) > 182.0 /HPF (0.0-6.0) H 07/28/20 Unknown Urine RBC (Auto) 30.0 /HPF (0.0-6.0) 07/28/20 Unknown U Epithel Cells (Auto) 2.0 /HPF (0-13.0) 07/28/20 Unknown Urine Bacteria (Auto) 1+ /HPF (Negative) 07/28/20 Unknown Ur Transition Epith Cell 4 /HPF 07/28/20 Unknown Hyaline Casts 5 /LPF 07/28/20 Unknown Urine Mucus Few /HPF 07/28/20 Unknown Nasal Screen MRSA (PCR) Negative (Negative) 07/29/20 Unknown Salicylates < 0.3 mg/dL (2.8-20.0) L 07/28/20 09:44 Plasma/Serum Alcohol < 0.01 % (0-0.07) 07/28/20 09:44 Coronavirus (PCR) Negative (Negative) 07/29/20 09:15 Blood Type O POSITIVE 08/01/20 08:40 Antibody Screen Negative 08/01/20 08:40 Crossmatch See Detail 08/01/20 08:40 Microbiology: Microbiology 07/28/20 10:03 Peripheral/Venous Blood Culture - Preliminary Jennyfer Albicans 08/02/20 16:56 Peripheral/Venous Blood Culture - Preliminary Culture in Progress 08/02/20 16:56 Peripheral/Venous Blood Culture - Preliminary Culture in Progress 07/31/20 14:31 Peripheral/Venous Blood Culture - Preliminary NO GROWTH AFTER 48 HOURS 07/31/20 14:31 Peripheral/Venous Blood Culture - Preliminary NO GROWTH AFTER 48 HOURS Brennan/IV: Voiding Method Indwelling Catheter Active Medications - Current Medications Current Medications: Generic Name Dose Route Start Last Admin Trade Name Freq PRN Reason Stop Dose Admin Acetaminophen 650 mg 07/28/20 14:27 Acetaminophen 325 Mg Tab PO Q6H PRN Pain, Mild (1-3) Albuterol 2.5 mg 07/28/20 14:27 Albuterol 2.5 Mg/3 Ml Nebu IH Q3H PRN Shortness Of Breath Lipase/Protease/Amylase 1 each 07/29/20 09:55 Lipase 10,500/Protease 25,000/Amylase 43,750 (Units) Dr Velasquez FEEDTUBE PRN PRN For Clogged Feeding Tube Ascorbic Acid 500 mg 08/01/20 22:00 08/03/20 09:41 Ascorbic Acid 500 Mg Tab PO 500 mg BID [place] Administration Dextrose 50 ml 07/29/20 15:46 Dextrose 50% In Water (25gm) 50 Ml Syringe IV Q30MIN PRN Hypoglycemia Protocol Famotidine 20 mg 07/30/20 10:00 08/03/20 09:42 Famotidine 20 Mg Tab PO 20 mg BID [place] Administration Fentanyl 50 mcg 07/28/20 09:30 08/02/20 16:30 Fentanyl 100 Mcg/2 Ml Inj IV 50 mcg Q10MIN PRN Administration ANALGESIA Fondaparinux 7.5 mg 08/03/20 10:00 08/03/20 09:42 Fondaparinux 7.5 Mg/0.6 Ml Inj SUB-Q 7.5 mg QDAY [place] Administration Hydromorphone HCl 0.25 mg 07/28/20 14:27 Hydromorphone 1 Mg/1 Ml Inj IV Q4H PRN Pain, Moderate (4-6) Hydrophilic Ointment 1 applic 07/28/20 09:30 Lip Therapy Vaseline TP Q2H PRN Dry Lips Fentanyl Citrate 2,000 mcg in 100 mls @ 4.082 mls/hr 07/28/20 16:00 08/03/20 06:00 Fentanyl Drip Premix IV 2 mcg/kg/hr TITR [place] 8.165 mls/hr Administration Protocol 1 MCG/KG/HR Norepinephrine 4 mg in 250 mls @ 7.5 mls/hr 07/28/20 10:00 07/30/20 10:45 Levophed Drip 4 Mg/Ns 250 Ml IV 0 mcg/min TITR [place] 0 mls/hr Titration Protocol 2 MCG/MIN MEROPENEM/NS 1 GRAM/100 ML 1 gram in 100 mls @ 100 mls/hr 07/30/20 22:00 08/03/20 09:42 Merrem/Ns 1 Gram/100 Ml IV 08/06/20 10:59 100 mls/hr Q12H [place] Administration Protocol Fluconazole 200 mls @ 100 mls/hr 08/01/20 15:00 08/03/20 14:12 Diflucan IV 100 mls/hr Q24H [place] Administration Protocol Propofol 1,000 mg in 100 mls @ 2.449 mls/hr 08/02/20 12:00 08/03/20 09:51 Diprivan 10 Mg/Ml IV 30 mcg/kg/min TITR [place] 14.696 mls/hr Administration Protocol 5 MCG/KG/MIN Midazolam HCl 100 mg/ Sodium 100 mls @ 1 mls/hr 08/02/20 17:00 08/03/20 09:30 Chloride IV 0 mg/hr TITR [place] 0 mls/hr Titration Protocol 1 MG/HR Sodium Phosphate 15 mmol/ 255 mls @ 40 mls/hr 08/03/20 11:00 08/03/20 12:34 Sodium Chloride IV 08/03/20 17:22 40 mls/hr ONCE ONE Administration Insulin Glargine 20 units 08/01/20 10:00 08/03/20 09:52 Insulin Glargine 100 Units/Ml SUB-Q 20 units DAILY [place] Administration Insulin Human Lispro 0 unit 07/31/20 16:40 08/03/20 13:10 Insulin Lispro 100 Unit/Ml SUB-Q 3 unit Q6HR PRN Administration Hyperglycemia Protocol Metoclopramide HCl 5 mg 08/01/20 15:00 08/03/20 09:41 Metoclopramide 10 Mg/2 Ml Inj IV 08/04/20 22:01 5 mg BID [place] Administration Midazolam HCl 2 mg 08/02/20 16:35 Midazolam 2 Mg/2 Ml Inj IV Q10MIN PRN Sedation Multi-Ingred Cream/Lotion/Oil/Oint 1 applic 07/28/20 09:30 Mineral Oil/Petrolatum, White Ophth Oint 3.5 Gm OU Q4H PRN Dry Eye(s) Senna/Docusate Sodium 1 tab 07/28/20 22:00 08/03/20 09:41 Sennosides/Docusate Sodium 8.6/50 Mg Tab FEEDTUBE 1 tab BID [place] Administration Simple Syrup 15 ml 07/29/20 09:55 Simple Syrup 15 Ml FEEDTUBE PRN PRN Hypoglycemia Simple Syrup 30 ml 07/29/20 09:55 Simple Syrup 15 Ml FEEDTUBE PRN PRN Hypoglycemia Sodium Bicarbonate 325 mg 07/29/20 09:55 Sodium Bicarbonate 325 Mg Tab FEEDTUBE PRN PRN For Clogged Feeding Tube Sodium Chloride 10 ml 07/28/20 22:00 08/03/20 09:43 Sodium Chloride 0.9% 10 Ml Flush Syringe IV 10 ml BID [place] Administration Sodium Chloride 10 ml 07/28/20 14:27 Sodium Chloride 0.9% 10 Ml Flush Syringe IV PRN PRN LINE FLUSH Zinc Sulfate 220 mg 08/01/20 15:00 08/03/20 09:41 Zinc Sulfate 220 Mg Cap PO 220 mg BID [place] Administration Nutrition/Malnutrition Assess - Dietary Evaluation Nutrition/Malnutrition Findings: Nutrition Notes Start: 07/29/20 09:47 Freq: Status: Active Protocol: Document 08/02/20 17:04 SOFYA (Rec: 08/02/20 17:07 SOFYA [id number]) Nutrition Notes Initial or Follow up Brief Note Subjective/Other Information Unable to reach RN via phone. Nutrition Intervention Follow-Up By: 08/05/20 Additional Comments F/U: TF tolerance, vent status , need for TF formula change
[2020-08-03] MEDS ORDERED: SODIUM PHOSPHATE 15 MMOL in SODIUM CHLORIDE 0.9% 250ML 150 ML IV ONE (10:49)
[2020-08-03] MEDS ORDERED: SODIUM PHOSPHATE 15 MMOL in SODIUM CHLORIDE 0.9% 250ML 250 ML IV ONE (11:00)
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
[2020-08-03] MEDS: INSULIN LISPRO 100 UNIT/ML SUB-Q PRN ×3 (13:10→23:54)
[2020-08-03] MEDS: FLUCONAZOLE 400 MG 200 ML IV SCH (14:12)
--- NOTE | 2020-08-03 14:23 | Progress Note ---
Assessment and Plan Cultures: 07/28/2020 blood culture: C albicans 07/28/2020 urine culture: No growth COVID PCR: negative 07/31/2020 blood culture: No growth so far. A/P: 69-year-old care home resident with quadriplegia, spinal cord injury, was brought in due to fever and sepsis: #Septic shock: Source is likely aspiration pneumonia and UTI. CT chest showed patchy airspace disease suggestive of possible aspiration. Abdomen and pelvis without acute process. #UTI #Acute hypoxic respiratory failure: On mechanical ventilation #Transaminitis: Likely sepsis/shock related #Sacral decubitus ulcer: Does not appear infected. Continue wound care Recs: -Given care home resident, at risk of resistant pathogens, treat empirically with meropenem. complete 8 days. -fluconazole 400mg q24h as C albicans, will need 2 weeks. -Follow up repeat blood cultures -OK to replace line when cultures negative x48 hours. -TTE without vegetations, OK to defer on SOFY unless cultures persistently pos itive -If patient improves and is discharged would need outpatient ophthalmology consult to rule out endophthalmitis. Poor prognosis. Dr. Reyes covering this weekend, Dr. Simmons taking over Thursday. Omkar Cabrera MD [facility] O: [phone] F: [phone] Subjective Date of service: 08/03/20 Principal diagnosis: Ac. encephalopathy; Ac. hypoxemic resp failure; Septic Shock; PNA; UTI; [place]FF[place] Interval history: Afebrile with low temperatures. Normal white count. repeat cultures remain negative. remains on the vent. Imaging personally reviewed: CXR: stable bilateral opacities Objective - Exam Narrative Exam: Physical Exam: Constitutional: sedated, intubated, on the vent Head, Ears, Nose: Normocephalic, atraumatic. Eyes: Conjunctivae/corneas clear. No icterus. Neck: intubated. Cervical collar present Oral: intubated Cardiovascular: S1, S2 + Respiratory: AE fair bilaterally and equal GI: Soft, bowel sounds + Musculoskeletal: No pedal edema, no cyanosis. Skin: Sacral decubitus with dressing Psych: no agitation Neurological: sedated, intubated, on the vent, exam limited - Constitutional Vitals: Vital Signs Temp Pulse Resp BP Pulse Ox 97.3 F L 79 21 143/71 97 08/03/20 11:00 08/03/20 14:16 08/03/20 14:16 08/03/20 14:16 08/03/20 14:16 Temperature -Last 24 Hours Temperature 97.3 F Temperature 97.9 F Temperature 98.8 F Temperature 97.7 F Temperature 99 F Temperature 97.9 F - Labs CBC & Chem 7: 08/03/20 04:16 08/03/20 04:16 Labs: Abnormal lab results 08/02/20 08/02/20 08/02/20 Range/Units 10:54 17:20 23:13 RBC (3.65-5.03) M/mm3 Hgb (11.8-15.2) gm/dl Hct (35.5-45.6) % RDW (13.2-15.2) % Plt Count (140-440) K/mm3 ABG Hemoglobin (12.0-17.5) ABG Chloride (98-107) mmol/L ABG Glucose (65-95) mg/dL Sodium (137-145) mmol/L Chloride (98-107) mmol/L BUN (9-20) mg/dL Glucose (75-100) mg/dL POC Glucose 228 H 214 H 132 H (70-105) mg/dL Calcium (8.4-10.2) mg/dL Phosphorus (2.5-4.5) mg/dL Arterial Blood Glucose (65-95) mg/dL 08/03/20 08/03/20 08/03/20 Range/Units 02:59 04:16 04:16 RBC 2.62 L (3.65-5.03) M/mm3 Hgb 8.1 L (11.8-15.2) gm/dl Hct 24.1 L (35.5-45.6) % RDW 17.4 H (13.2-15.2) % Plt Count 118 L (140-440) K/mm3 ABG Hemoglobin 8.1 L (12.0-17.5) ABG Chloride 113.0 H (98-107) mmol/L ABG Glucose 143 H (65-95) mg/dL Sodium 148 H (137-145) mmol/L Chloride 114.5 H (98-107) mmol/L BUN 47 H (9-20) mg/dL Glucose 158 H (75-100) mg/dL POC Glucose (70-105) mg/dL Calcium 8.1 L (8.4-10.2) mg/dL Phosphorus 2.30 L (2.5-4.5) mg/dL Arterial Blood Glucose 143 H (65-95) mg/dL 08/03/20 08/03/20 Range/Units 05:12 11:26 RBC (3.65-5.03) M/mm3 Hgb (11.8-15.2) gm/dl Hct (35.5-45.6) % RDW (13.2-15.2) % Plt Count (140-440) K/mm3 ABG Hemoglobin (12.0-17.5) ABG Chloride (98-107) mmol/L ABG Glucose (65-95) mg/dL Sodium (137-145) mmol/L Chloride (98-107) mmol/L BUN (9-20) mg/dL Glucose (75-100) mg/dL POC Glucose 164 H 190 H (70-105) mg/dL Calcium (8.4-10.2) mg/dL Phosphorus (2.5-4.5) mg/dL Arterial Blood Glucose (65-95) mg/dL
[2020-08-03] MEDS ORDERED: hydrALAZINE 20 MG/1 ML INJ IV PRN (15:42)
--- NOTE | 2020-08-03 21:12 | Vascular Lab Report ---
DUPLEX DOPPLER UPPER EXTREMITY VENOUS, RIGHT INDICATION / CLINICAL INFORMATION: r/o dvt. TECHNIQUE: Duplex doppler imaging was performed through the veins of the right upper extremity using venous comp ression and other maneuvers. COMPARISON: None available. FINDINGS: RIGHT INTERNAL JUGULAR VEIN: Not visualized secondary to overlying cervical collar RIGHT SUBCLAVIAN VEIN: Negative. RIGHT AXILLARY VEIN: Negative. RIGHT BRACHIAL VEIN: Negative. RIGHT FOREARM VEINS: Negative. RIGHT BASILIC VEIN (SUPERFICIAL): Negative. ADDITIONAL FINDINGS: None. IMPRESSION: 1. No sonographic evidence for DVT. Signer Name: Vinicio Salomon MD Signed: 08/03/2020 9:07 PM Workstation Name: [id number]
[2020-08-04] MEDS: fentaNYL DRIP Premix 2,000 MCG/100 ML BAG IV SCH (02:16)
--- NOTE | 2020-08-04 02:30 | XRay Report ---
CHEST 1 VIEW 08/04/2020 1:23 AM INDICATION / CLINICAL INFORMATION: follow up respiratory failure. COMPARISON: 08/03/2020 FINDINGS: Mild increased interstitial prominence and opacities in bilateral lungs left greater than right. Left effusion is noted. Heart size appears normal. IMPRESSION: 1. Increased interstitial prominence and opacities in bilateral lungs with left effusion Signer Name: Leonard Ruiz MD Signed: 08/04/2020 2:26 AM Workstation Name: [id number]
[2020-08-04 04:29] LABS: BUN/Creatinine Ratio 51; Blood Urea Nitrogen 51 mg/dL (9-20); Calcium 8.5 mg/dL (8.4-10.2); Hemolysis Index 5
[2020-08-04] MEDS: INSULIN LISPRO 100 UNIT/ML SUB-Q PRN (05:26)
[2020-08-04] MEDS ORDERED: hydrALAZINE 20 MG/1 ML INJ IV PRN (08:06)
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
[2020-08-04] MEDS: FONDAPARINUX 2.5 MG/0.5 ML INJ SUB-Q SCH (09:28)
[2020-08-04] MEDS: MEROPENEM/NS 1 GRAM/100 ML 1 GRAM/100 ML BAG IV SCH ×2 (09:28→21:01)
[2020-08-04] MEDS: ASCORBIC ACID 500 MG TAB PO SCH ×2 (09:29→21:02)
[2020-08-04] MEDS: SENNOSIDES/DOCUSATE SODIUM 8.6/50 MG TAB FEEDTUBE SCH ×2 (09:29→21:02)
[2020-08-04] MEDS: ZINC SULFATE 220 MG CAP PO SCH ×2 (09:29→21:03)
[2020-08-04] MEDS: amLODIPine 5 MG TAB PO SCH (09:29)
[2020-08-04] MEDS: FAMOTIDINE 20 MG TAB PO SCH ×2 (09:30→21:02)
[2020-08-04] MEDS: INSULIN GLARGINE 100 UNITS/ML SUB-Q SCH (09:30)
[2020-08-04] MEDS: METOCLOPRAMIDE 10 MG/2 ML INJ IV SCH ×2 (09:30→21:03)
[2020-08-04] MEDS ORDERED: amLODIPine 5 MG TAB PO SCH (10:00)
--- NOTE | 2020-08-04 10:20 | Progress Note ---
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 Neutrophils % Advisory Software Engineer 07/28/20 08:48 Seg Neuts % (Manual) 75.0 % (40.0-70.0) H 07/29/20 Unknown Band Neutrophils % 5.0 % 07/29/20 Unknown Lymphocytes % (Manual) 2.0 % (13.4-35.0) L 07/29/20 Unknown Monocytes % (Manual) 4.0 % (0.0-7.3) 07/29/20 Unknown Metamyelocytes % 14.0 % 07/29/20 Unknown Nucleated RBC % Not Reportable 07/29/20 Unknown Seg Neutrophils # Advisory Software Engineer 07/28/20 08:48 Seg Neutrophils # Man 6.1 K/mm3 (1.8-7.7) 07/29/20 Unknown Band Neutrophils # 0.4 K/mm3 07/29/20 Unknown Lymphocytes # (Manual) 0.2 K/mm3 (1.2-5.4) L 07/29/20 Unknown Abs React Lymphs (Man) 0.0 K/mm3 07/29/20 Unknown Monocytes # (Manual) 0.3 K/mm3 (0.0-0.8) 07/29/20 Unknown Eosinophils # (Manual) 0.0 K/mm3 (0.0-0.4) 07/29/20 Unknown Basophils # (Manual) 0.0 K/mm3 (0.0-0.1) 07/29/20 Unknown Metamyelocytes # 1.1 K/mm3 07/29/20 Unknown Myelocytes # 0.0 K/mm3 07/29/20 Unknown Promyelocytes # 0.0 K/mm3 07/29/20 Unknown Blast Cells # 0.0 K/mm3 07/29/20 Unknown WBC Morphology Not Reportable 07/29/20 Unknown WBC Morphology TNR 07/29/20 Unknown Hypersegmented Neuts Not Reportable 07/29/20 Unknown Hyposegmented Neuts Not Reportable 07/29/20 Unknown Hypogranular Neuts Not Reportable 07/29/20 Unknown Smudge Cells Not Reportable 07/29/20 Unknown Toxic Granulation Not Reportable 07/29/20 Unknown Toxic Vacuolation Not Reportable 07/29/20 Unknown Dohle Bodies Not Reportable 07/29/20 Unknown Pelger-Huet Anomaly Not Reportable 07/29/20 Unknown Janna Rods Not Reportable 07/29/20 Unknown Platelet Estimate Consistent w auto 07/29/20 Unknown Clumped Platelets Not Reportable 07/29/20 Unknown Plt Clumps, EDTA Not Reportable 07/29/20 Unknown Large Platelets Not Reportable 07/29/20 Unknown Giant Platelets Not Reportable 07/29/20 Unknown Platelet Satelliting Not Reportable 07/29/20 Unknown Plt Morphology Comment Not Reportable 07/29/20 Unknown RBC Morphology Normal 07/29/20 Unknown Dimorphic RBCs Not Reportable 07/29/20 Unknown Polychromasia Not Reportable 07/29/20 Unknown Hypochromasia Not Reportable 07/29/20 Unknown Poikilocytosis Not Reportable 07/29/20 Unknown Anisocytosis Not Reportable 07/29/20 Unknown Microcytosis Not Reportable 07/29/20 Unknown Macrocytosis Not Reportable 07/29/20 Unknown Spherocytes Not Reportable 07/29/20 Unknown Pappenheimer Bodies Not Reportable 07/29/20 Unknown Sickle Cells Not Reportable 07/29/20 Unknown Target Cells Not Reportable 07/29/20 Unknown Tear Drop Cells Not Reportable 07/29/20 Unknown Ovalocytes Not Reportable 07/29/20 Unknown Helmet Cells Not Reportable 07/29/20 Unknown [place] Bodies Not Reportable 07/29/20 Unknown [place] Rings Not Reportable 07/29/20 Unknown Sharon Cells Not Reportable 07/29/20 Unknown Bite Cells Not Reportable 07/29/20 Unknown Crenated Cell Not Reportable 07/29/20 Unknown Elliptocytes Not Reportable 07/29/20 Unknown Acanthocytes (Spur) Not Reportable 07/29/20 Unknown Rouleaux Not Reportable 07/29/20 Unknown Hemoglobin C Crystals Not Reportable 07/29/20 Unknown Schistocytes Not Reportable 07/29/20 Unknown Malaria parasites Not Reportable 07/29/20 Unknown Lito Bodies Not Reportable 07/29/20 Unknown Hem Pathologist Commnt No 07/29/20 Unknown PT 24.7 Sec. (12.2-14.9) H 07/28/20 08:48 INR 2.17 (0.87-1.13) H 07/28/20 08:48 APTT 34.7 Sec. (24.2-36.6) 07/28/20 08:48 ABG pH 7.362 (7.320-7.450) 08/04/20 04:14 POC ABG pCO2 45.3 mmHg (32.0-48.0) 08/04/20 04:14 ABG pCO2 46.4 mm Hg 08/02/20 03:50 POC ABG pO2 79.5 mmHg (83-108) L 08/04/20 04:14 ABG pO2 91.5 mm Hg (80.0-90.0) H 08/02/20 03:50 POC ABG HCO3 25.1 08/04/20 04:14 ABG HCO3 24.1 mmol/L (20.0-26.0) 08/02/20 03:50 ABG O2 Saturation 95.0 (0-100) 08/04/20 04:14 ABG O2 Content 10.7 (0.0-44) 08/02/20 03:50 POC ABG Base Excess -0.4 08/04/20 04:14 ABG Base Excess -1.7 mmol/L (-2.0-3.0) 08/02/20 03:50 ABG Hemoglobin 9.9 (12.0-17.5) L 08/04/20 04:14 ABG Oxyhemoglobin 94.4 (94-98) 08/04/20 04:14 ABG Carboxyhemoglobin 1.6 % (0.0-5.0) 08/02/20 03:50 ABG Methemoglobin 0.3 (0.0-1.5) 08/04/20 04:14 ABG Sodium 143.8 mmol/L (136.0-145.0) 08/04/20 04:14 ABG Potassium 3.9 mmol/L (3.40-4.50) 08/04/20 04:14 ABG Chloride 113.0 mmol/L (98-107) H 08/04/20 04:14 ABG Glucose 227 mg/dL (65-95) H 08/04/20 04:14 VBG pH 7.377 (7.320-7.420) 07/28/20 09:44 Oxyhemoglobin 95.2 % (95.0-99.0) 08/02/20 03:50 Carboxyhemoglobin 0.3 (0.5-1.5) L 08/04/20 04:14 FiO2 40 % 08/02/20 03:50 FiO2 % 45.0 08/04/20 04:14 Sodium 144 mmol/L (137-145) 08/04/20 03:00 Potassium 3.8 mmol/L (3.6-5.0) 08/04/20 03:00 Chloride 111.4 mmol/L (98-107) H 08/04/20 03:00 Carbon Dioxide 24 mmol/L (22-30) 08/04/20 03:00 Anion Gap 12 mmol/L 08/04/20 03:00 BUN 51 mg/dL (9-20) H 08/04/20 03:00 Creatinine 1.0 mg/dL (0.8-1.3) 08/04/20 03:00 Estimated GFR > 60 ml/min 08/04/20 03:00 BUN/Creatinine Ratio 51 % 08/04/20 03:00 Glucose 218 mg/dL (75-100) H 08/04/20 03:00 POC Glucose 237 mg/dL (70-105) H 08/04/20 11:53 Hemoglobin A1c 8.8 % (4-6) H 08/01/20 04:30 Lactic Acid 1.60 mmol/L (0.7-2.0) 07/30/20 05:45 Calcium 8.5 mg/dL (8.4-10.2) 08/04/20 03:00 Ionized Calcium 4.2 mg/dL (4.8-5.6) L 07/30/20 19:01 Phosphorus 2.90 mg/dL (2.5-4.5) D 08/04/20 03:00 Magnesium 2.30 mg/dL (1.7-2.3) 08/02/20 Unknown Total Bilirubin 0.20 mg/dL (0.1-1.2) 07/30/20 05:45 AST 51 units/L (5-40) H 07/30/20 05:45 ALT 46 units/L (7-56) 07/30/20 05:45 Alkaline Phosphatase 78 units/L (35-129) 07/30/20 05:45 Ammonia 63.0 umol/L (25-60) H 07/28/20 08:48 Total Creatine Kinase 486 units/L (55-170) H 07/28/20 08:48 Troponin T 0.115 ng/mL (0.00-0.029) H* 07/28/20 08:48 C-Reactive Protein 9.00 mg/dL (0.00-1.30) H 07/28/20 19:50 Total Protein 5.5 g/dL (6.3-8.2) L 07/30/20 05:45 Albumin 2.3 g/dL (3.9-5) L 07/30/20 05:45 Albumin/Globulin Ratio 0.7 % 07/30/20 05:45 Triglycerides 184 mg/dL (2-149) H 08/04/20 03:00 Cholesterol 80 mg/dL (50-199) 07/28/20 08:48 LDL Cholesterol Direct 44 mg/dL (50-130) L 07/28/20 08:48 HDL Cholesterol 26 mg/dL (40-59) L 07/28/20 08:48 Cholesterol/HDL Ratio 3.07 % 07/28/20 08:48 Procalcitonin 177.82 ng/mL (<0.15) 07/28/20 19:50 TSH 2.450 mlU/mL (0.270-4.200) 07/28/20 08:48 Arterial Blood Glucose 227 mg/dL (65-95) H 08/04/20 04:14 Arterial Blood Ionized Calcium 4.9 mg/dL (4.6-5.3) 08/04/20 04:14 Urine Color [place] (Yellow) 07/28/20 Unknown Urine Turbidity Cloudy (Clear) 07/28/20 Unknown Urine pH 5.0 (5.0-7.0) 07/28/20 Unknown Ur Specific [place] 1.018 (1.003-1.030) 07/28/20 Unknown Urine Protein 100 mg/dl mg/dL (Negative) 07/28/20 Unknown Urine Glucose (UA) Neg mg/dL (Negative) 07/28/20 Unknown Urine Ketones Neg mg/dL (Negative) 07/28/20 Unknown Urine Blood Lg (Negative) 07/28/20 Unknown Urine Nitrite Neg (Negative) 07/28/20 Unknown Urine Bilirubin Neg (Negative) 07/28/20 Unknown Urine Urobilinogen 2.0 mg/dL (<2.0) 07/28/20 Unknown Ur Leukocyte Esterase Lg (Negative) 07/28/20 Unknown Urine WBC (Auto) > 182.0 /HPF (0.0-6.0) H 07/28/20 Unknown Urine RBC (Auto) 30.0 /HPF (0.0-6.0) 07/28/20 Unknown U Epithel Cells (Auto) 2.0 /HPF (0-13.0) 07/28/20 Unknown Urine Bacteria (Auto) 1+ /HPF (Negative) 07/28/20 Unknown Ur Transition Epith Cell 4 /HPF 07/28/20 Unknown Hyaline Casts 5 /LPF 07/28/20 Unknown Urine Mucus Few /HPF 07/28/20 Unknown Nasal Screen MRSA (PCR) Negative (Negative) 07/29/20 Unknown Salicylates < 0.3 mg/dL (2.8-20.0) L 07/28/20 09:44 Plasma/Serum Alcohol < 0.01 % (0-0.07) 07/28/20 09:44 Coronavirus (PCR) Negative (Negative) 07/29/20 09:15 Blood Type O POSITIVE 08/01/20 08:40 Antibody Screen Negative 08/01/20 08:40 Crossmatch See Detail 08/01/20 08:40 Microbiology: Microbiology 08/02/20 16:56 Peripheral/Venous Blood Culture - Preliminary NO GROWTH AFTER 24 HOURS 08/02/20 16:56 Peripheral/Venous Blood Culture - Preliminary NO GROWTH AFTER 24 HOURS 07/31/20 14:31 Peripheral/Venous Blood Culture - Preliminary NO GROWTH AFTER 72 HOURS 07/31/20 14:31 Peripheral/Venous Blood Culture - Preliminary Coag Negative Staphylococcus 07/28/20 10:03 Peripheral/Venous Blood Culture - Preliminary Roro Albicans Brennan/IV: Voiding Method Indwelling Catheter Active Medications - Current Medications Current Medications: Generic Name Dose Route Start Last Admin Trade Name Freq PRN Reason Stop Dose Admin Acetaminophen 650 mg 07/28/20 14:27 Acetaminophen 325 Mg Tab PO Q6H PRN Pain, Mild (1-3) Albuterol 2.5 mg 07/28/20 14:27 Albuterol 2.5 Mg/3 Ml Nebu IH Q3H PRN Shortness Of Breath Amlodipine Besylate 5 mg 08/04/20 10:00 08/04/20 09:29 Amlodipine 5 Mg Tab PO 5 mg QDAY [place] Administration Lipase/Protease/Amylase 1 each 07/29/20 09:55 Lipase 10,500/Protease 25,000/Amylase 43,750 (Units) Dr Cap FEEDTUBE PRN PRN For Clogged Feeding Tube Ascorbic Acid 500 mg 08/01/20 22:00 08/04/20 09:29 Ascorbic Acid 500 Mg Tab PO 500 mg BID [place] Administration Dextrose 50 ml 07/29/20 15:46 Dextrose 50% In Water (25gm) 50 Ml Syringe IV Q30MIN PRN Hypoglycemia Protocol Famotidine 20 mg 07/30/20 10:00 08/04/20 09:30 Famotidine 20 Mg Tab PO 20 mg BID [place] Administration Fentanyl 50 mcg 07/28/20 09:30 08/02/20 16:30 Fentanyl 100 Mcg/2 Ml Inj IV 50 mcg Q10MIN PRN Administration ANALGESIA Fondaparinux 2.5 mg 08/04/20 10:00 08/04/20 09:28 Fondaparinux 2.5 Mg/0.5 Ml Inj SUB-Q 2.5 mg DAILY [place] Administration Hydralazine HCl 5 mg 08/04/20 08:06 08/04/20 12:34 Hydralazine 20 Mg/1 Ml Inj IV 5 mg Q4HR PRN Administration Blood Pressure Hydromorphone HCl 0.25 mg 07/28/20 14:27 Hydromorphone 1 Mg/1 Ml Inj IV Q4H PRN Pain, Moderate (4-6) Hydrophilic Ointment 1 applic 07/28/20 09:30 Lip Therapy Vaseline TP Q2H PRN Dry Lips Fentanyl Citrate 2,000 mcg in 100 mls @ 4.082 mls/hr 07/28/20 16:00 08/04/20 11:41 Fentanyl Drip Premix IV 0 mcg/kg/hr TITR [place] 0 mls/hr Titration Protocol 1 MCG/KG/HR Norepinephrine 4 mg in 250 mls @ 7.5 mls/hr 07/28/20 10:00 07/30/20 10:45 Levophed Drip 4 Mg/Ns 250 Ml IV 0 mcg/min TITR [place] 0 mls/hr Titration Protocol 2 MCG/MIN MEROPENEM/NS 1 GRAM/100 ML 1 gram in 100 mls @ 100 mls/hr 07/30/20 22:00 08/04/20 09:28 Merrem/Ns 1 Gram/100 Ml IV 08/06/20 10:59 100 mls/hr Q12H [place] Administration Protocol Fluconazole 200 mls @ 100 mls/hr 08/01/20 15:00 08/03/20 14:12 Diflucan IV 08/14/20 16:59 100 mls/hr Q24H [place] Administration Protocol Propofol 1,000 mg in 100 mls @ 2.449 mls/hr 08/02/20 12:00 08/04/20 08:27 Diprivan 10 Mg/Ml IV 0 mcg/kg/min TITR [place] 0 mls/hr Titration Protocol 5 MCG/KG/MIN Dexmedetomidine HCl 400 mcg/ 104 mls @ 4.246 mls/hr 08/04/20 11:15 08/04/20 13:50 Sodium Chloride IV 0.6 mcg/kg/hr TITRATE [place] 12.737 mls/hr Titration Protocol 0.2 MCG/KG/HR Insulin Glargine 25 units 08/04/20 10:00 08/04/20 09:30 Insulin Glargine 100 Units/Ml SUB-Q 25 units QDAY [place] Administration Insulin Human Lispro 0 unit 08/04/20 12:00 08/04/20 11:58 Insulin Lispro 100 Unit/Ml SUB-Q 4 unit Q6HR [place] Administration Protocol Metoclopramide HCl 5 mg 08/01/20 15:00 08/04/20 09:30 Metoclopramide 10 Mg/2 Ml Inj IV 08/04/20 22:01 5 mg BID [place] Administration Multi-Ingred Cream/Lotion/Oil/Oint 1 applic 07/28/20 09:30 Mineral Oil/Petrolatum, White Ophth Oint 3.5 Gm OU Q4H PRN Dry Eye(s) Senna/Docusate Sodium 1 tab 07/28/20 22:00 08/04/20 09:29 Sennosides/Docusate Sodium 8.6/50 Mg Tab FEEDTUBE 1 tab BID [place] Administration Simple Syrup 15 ml 07/29/20 09:55 Simple Syrup 15 Ml FEEDTUBE PRN PRN Hypoglycemia Simple Syrup 30 ml 07/29/20 09:55 Simple Syrup 15 Ml FEEDTUBE PRN PRN Hypoglycemia Sodium Bicarbonate 325 mg 07/29/20 09:55 Sodium Bicarbonate 325 Mg Tab FEEDTUBE PRN PRN For Clogged Feeding Tube Sodium Chloride 10 ml 07/28/20 22:00 08/04/20 09:32 Sodium Chloride 0.9% 10 Ml Flush Syringe IV 10 ml BID [place] Administration Sodium Chloride 10 ml 07/28/20 14:27 Sodium Chloride 0.9% 10 Ml Flush Syringe IV PRN PRN LINE FLUSH Zinc Sulfate 220 mg 08/01/20 15:00 08/04/20 09:29 Zinc Sulfate 220 Mg Cap PO 220 mg BID [place] Administration Nutrition/Malnutrition Assess - Dietary Evaluation Nutrition/Malnutrition Findings: Nutrition Notes Start: 07/29/20 09:47 Freq: Status: Active Protocol: Document 08/02/20 17:04 SOFYA (Rec: 08/02/20 17:07 SOFYA [id number]) Nutrition Notes Initial or Follow up Brief Note Subjective/Other Information Unable to reach RN via phone. Nutrition Intervention Follow-Up By: 08/05/20 Additional Comments F/U: TF tolerance, vent status , need for TF formula change
[2020-08-04] MEDS: INSULIN LISPRO 100 UNIT/ML SUB-Q SCH ×3 (11:58→23:15)
--- NOTE | 2020-08-04 13:51 | Progress Note ---
Assessment and Plan Cultures: 07/28/2020 blood culture: C albicans 07/28/2020 urine culture: No growth COVID PCR: negative 07/31/2020 blood culture: No growth so far. A/P: 69-year-old care home resident with quadriplegia, spinal cord injury, was brought in due to fever and sepsis: #Septic shock: Resolved likely due to candidemia +/-pneumonia. #Candidemia: Repeat blood culture no growth. Unclear source. ?IV line. Transthoracic echo without vegetation. #Pneumonia: CT chest showed patchy airspace disease suggestive of possible aspiration. #UTI with chronic indwelling catheter #Acute hypoxic respiratory failure: On mechanical ventilation #Transaminitis: Likely sepsis/shock related. Improved. #Sacral decubitus ulcer: Does not appear infected. Continue wound care Recs: -Obtain transthoracic echo given Candidemia -Continue fluconazole 400 g IV once a day -Continue meropenem D 6 of 8 -OK to replace line when cultures negative x48 hours. -If patient improves and is discharged would need outpatient ophthalmology consult to rule out endophthalmitis. Kavitha Reyes MD [facility] ([facility]) Office [phone] Subjective Date of service: 08/04/20 Principal diagnosis: Ac. encephalopathy; Ac. hypoxemic resp failure; Septic Shock; PNA; UTI; [place] Interval history: Patient remains intubated FiO2 45%, PEEP 6, sedated on fentanyl, noted hyperte nsive on monitor. Objective - Exam Narrative Exam: General appearance: Sedated, intubated Eyes: anicteric sclerae, moist conjunctivae; no lid-lag; PERRLA HENT: Normocephalic, Atraumatic; normal external ears, nares open, oropharynx e ndotracheal tube in place Neck: Collar in place Lungs: Clear to auscultation bilaterally CV: RRR no murmur Abdomen: Soft, non-tender; Extremities: Bilateral leg edema Skin: No rash. Psych: Sedated Neuro: sedated Brennan in place - Constitutional Vitals: Vital Signs Temp Pulse Resp BP Pulse Ox 97.4 F L 100 H 25 H 156/68 98 08/04/20 12:00 08/04/20 13:14 08/04/20 12:45 08/04/20 13:14 08/04/20 13:14 Temperature -Last 24 Hours Temperature 97.4 F Temperature 97.0 F Temperature 97.9 F Temperature 97.5 F Temperature 97.6 F Temperature 97.4 F - Labs CBC & Chem 7: 08/03/20 04:16 08/04/20 03:00 Labs: Abnormal lab results 08/03/20 08/03/20 08/04/20 Range/Units 17:33 23:47 03:00 POC ABG pO2 (83-108) mmHg ABG Hemoglobin (12.0-17.5) ABG Chloride (98-107) mmol/L ABG Glucose (65-95) mg/dL Carboxyhemoglobin (0.5-1.5) Chloride (98-107) mmol/L BUN (9-20) mg/dL Glucose (75-100) mg/dL POC Glucose 235 H 194 H (70-105) mg/dL Triglycerides 184 H (2-149) mg/dL Arterial Blood Glucose (65-95) mg/dL 08/04/20 08/04/20 08/04/20 Range/Units 03:00 04:14 05:17 POC ABG pO2 79.5 L (83-108) mmHg ABG Hemoglobin 9.9 L (12.0-17.5) ABG Chloride 113.0 H (98-107) mmol/L ABG Glucose 227 H (65-95) mg/dL Carboxyhemoglobin 0.3 L (0.5-1.5) Chloride 111.4 H (98-107) mmol/L BUN 51 H (9-20) mg/dL Glucose 218 H (75-100) mg/dL POC Glucose 224 H (70-105) mg/dL Triglycerides (2-149) mg/dL Arterial Blood Glucose 227 H (65-95) mg/dL 08/04/20 08/04/20 Range/Units 11:52 11:53 POC ABG pO2 (83-108) mmHg ABG Hemoglobin (12.0-17.5) ABG Chloride (98-107) mmol/L ABG Glucose (65-95) mg/dL Carboxyhemoglobin (0.5-1.5) Chloride (98-107) mmol/L BUN (9-20) mg/dL Glucose (75-100) mg/dL POC Glucose 253 H 237 H (70-105) mg/dL Triglycerides (2-149) mg/dL Arterial Blood Glucose (65-95) mg/dL
[2020-08-04] MEDS: FLUCONAZOLE 400 MG 200 ML IV SCH (14:05)
[2020-08-04 17:53] LABS: Hemoglobin 7.3 gm/dl (11.8-15.2); Mean Corpuscular Volume 90 fl (84-94)
[2020-08-04 17:58] LABS: Mean Corpuscular HGB Conc 37 % (32-34); Platelet Count 133 K/mm3 (140-440); Red Cell Distribution Width 17.2 % (13.2-15.2)
--- NOTE | 2020-08-04 19:14 | Event Note ---
Date: 08/04/20 Called by RN to state patient while on SBT, became bradycardic. He went into asystole, which was brief. He did not need cardiac compressions or epinephrine They laid him flat and placed him back on full support. This also happened while he was on Precedex. Get Cardiology consult, stop Precedex
[2020-08-05] MEDS: fentaNYL DRIP Premix 2,000 MCG/100 ML BAG IV SCH ×3 (02:10→17:00)
[2020-08-05 04:50] LABS: BUN/Creatinine Ratio 51; Blood Urea Nitrogen 51 mg/dL (9-20); Calcium 8.7 mg/dL (8.4-10.2); Hemolysis Index 3
[2020-08-05] MEDS: INSULIN LISPRO 100 UNIT/ML SUB-Q SCH ×3 (05:32→17:49)
[2020-08-05 09:49] LABS: Hematocrit 24.8 % (35.5-45.6); Hemoglobin 8.1 gm/dl (11.8-15.2); Mean Corpuscular HGB Conc 33 % (32-34); Mean Corpuscular Volume 90 fl (84-94); Platelet Count 138 K/mm3 (140-440); Red Blood Count 2.76 M/mm3 (3.65-5.03); Red Cell Distribution Width 17.4 % (13.2-15.2)
[2020-08-05] MEDS: amLODIPine 5 MG TAB PO SCH (09:54)
[2020-08-05] MEDS: ZINC SULFATE 220 MG CAP PO SCH ×2 (09:54→21:25)
[2020-08-05] MEDS: SENNOSIDES/DOCUSATE SODIUM 8.6/50 MG TAB FEEDTUBE SCH ×2 (09:55→21:25)
[2020-08-05] MEDS: FAMOTIDINE 20 MG TAB PO SCH ×2 (09:55→21:25)
[2020-08-05] MEDS: ASCORBIC ACID 500 MG TAB PO SCH ×2 (09:55→21:25)
[2020-08-05 10:10] LABS: Alanine Aminotransferase 25 units/L (7-56); BUN/Creatinine Ratio 51; Blood Urea Nitrogen 56 mg/dL (9-20); Calcium 9.3 mg/dL (8.4-10.2); Hemolysis Index 1
[2020-08-05] MEDS: ALBUTEROL 2.5 MG/3 ML NEBU IH PRN ×2 (10:20→14:27)
--- NOTE | 2020-08-05 10:26 | Consultation ---
History of Present Illness Consult date: 08/05/20 Requesting physician: DIONISIO BUSTAMANTE Consult reason: bradycardia History of present illness: Patient is currently in the ICU and intubated unable to provide any history. Patient is a 69-year-old currently being treated for sepsis. Is quadriplegic and is on a ventilator. Apparently patient had an episode of bradycardia necessitating cardiology consult. No history could be obtained from the patient. Unfortunately cannot locate the telemetry strips documenting bradycardia. Currently patient hemodynamically stable. Apparently was being given Precedex. Precedex has since been discontinued. EKG reveals biatrial enlargement and left ventricular hypertrophy. Echo this admission shows normal LV systolic function. Past History Past Medical History: other (See HPI) Past Surgical History: No surgical history, Other (Unable to obtain) Social history: single. denies: smoking, alcohol abuse, prescription drug abuse Family history: diabetes, hypertension Medications and Allergies Allergies Allergy/AdvReac Type Severity Reaction Status Date / Time No Known Allergies Allergy Unverified 07/28/20 15:17 Active Meds: Active Medications Acetaminophen (Acetaminophen 325 Mg Tab) 650 mg PO Q6H PRN PRN Reason: Pain, Mild (1-3) Albuterol (Albuterol 2.5 Mg/3 Ml Nebu) 2.5 mg IH Q3H PRN PRN Reason: Shortness Of Breath Amlodipine Besylate (Amlodipine 5 Mg Tab) 5 mg PO QDAY [facility] Last Admin: 08/05/20 09:54 Dose: 5 mg Documented by: Lipase/Protease/Amylase (Lipase 10,500/Protease 25,000/Amylase 43,750 (Units) Dr Velasquez) 1 each FEEDTUBE PRN PRN PRN Reason: For Clogged Feeding Tube Ascorbic Acid (Ascorbic Acid 500 Mg Tab) 500 mg PO BID [facility] Last Admin: 08/05/20 09:55 Dose: 500 mg Documented by: Dextrose (Dextrose 50% In Water (25gm) 50 Ml Syringe) 50 ml IV Q30MIN PRN; Protocol PRN Reason: Hypoglycemia Famotidine (Famotidine 20 Mg Tab) 20 mg PO BID [facility] Last Admin: 08/05/20 09:55 Dose: 20 mg Documented by: Fentanyl (Fentanyl 100 Mcg/2 Ml Inj) 50 mcg IV Q10MIN PRN PRN Reason: ANALGESIA Last Admin: 08/02/20 16:30 Dose: 50 mcg Documented by: Fondaparinux (Fondaparinux 2.5 Mg/0.5 Ml Inj) 2.5 mg SUB-Q DAILY [place] Last Admin: 08/04/20 09:28 Dose: 2.5 mg Documented by: Hydralazine HCl (Hydralazine 20 Mg/1 Ml Inj) 5 mg IV Q4HR PRN PRN Reason: Blood Pressure Last Admin: 08/04/20 12:34 Dose: 5 mg Documented by: Hydrophilic Ointment (Lip Therapy Vaseline) 1 applic TP Q2H PRN PRN Reason: Dry Lips Fentanyl Citrate (Fentanyl Drip Premix) 2,000 mcg in 100 mls @ 4.082 mls/hr IV TITR [place]; Protocol Last Admin: 08/05/20 09:55 Dose: 3 mcg/kg/hr, 12.247 mls/hr Documented by: MEROPENEM/NS 1 GRAM/100 ML (Merrem/Ns 1 Gram/100 Ml) 1 gram in 100 mls @ 100 mls/hr IV Q12H [place]; Protocol Stop: 08/06/20 10:59 Last Admin: 08/04/20 21:01 Dose: 100 mls/hr Documented by: Fluconazole (Diflucan) 200 mls @ 100 mls/hr IV Q24H [place]; Protocol Stop: 08/14/20 16:59 Last Admin: 08/04/20 14:05 Dose: 100 mls/hr Documented by: Propofol (Diprivan 10 Mg/Ml) 1,000 mg in 100 mls @ 2.449 mls/hr IV TITR [place]; Protocol Last Titration: 08/04/20 08:27 Dose: 0 mcg/kg/min, 0 mls/hr Documented by: Insulin Glargine (Insulin Glargine 100 Units/Ml) 25 units SUB-Q QDAY [place] Last Admin: 08/04/20 09:30 Dose: 25 units Documented by: Insulin Human Lispro (Insulin Lispro 100 Unit/Ml) 0 unit SUB-Q Q6HR [place]; Protocol Last Admin: 08/05/20 05:32 Dose: 4 unit Documented by: Multi-Ingred Cream/Lotion/Oil/Oint (Mineral Oil/Petrolatum, White Ophth Oint 3.5 Gm) 1 applic OU Q4H PRN PRN Reason: Dry Eye(s) Senna/Docusate Sodium (Sennosides/Docusate Sodium 8.6/50 Mg Tab) 1 tab FEEDTUBE BID [facility] Last Admin: 08/05/20 09:55 Dose: 1 tab Documented by: Simple Syrup (Simple Syrup 15 Ml) 15 ml FEEDTUBE PRN PRN PRN Reason: Hypoglycemia Simple Syrup (Simple Syrup 15 Ml) 30 ml FEEDTUBE PRN PRN PRN Reason: Hypoglycemia Sodium Bicarbonate (Sodium Bicarbonate 325 Mg Tab) 325 mg FEEDTUBE PRN PRN PRN Reason: For Clogged Feeding Tube Sodium Chloride (Sodium Chloride 0.9% 10 Ml Flush Syringe) 10 ml IV BID [facility] Last Admin: 08/05/20 09:55 Dose: 10 ml Documented by: Sodium Chloride (Sodium Chloride 0.9% 10 Ml Flush Syringe) 10 ml IV PRN PRN PRN Reason: LINE FLUSH Zinc Sulfate (Zinc Sulfate 220 Mg Cap) 220 mg PO BID [facility] Last Admin: 08/05/20 09:54 Dose: 220 mg Documented by: Review of Systems ROS unobtainable: due to endotracheal tube Physical Examination Vital Signs Temp Pulse Resp BP Pulse Ox 106 F H 114 H 12 114/64 92 07/28/20 09:00 07/28/20 09:00 07/28/20 09:00 07/28/20 09:00 07/28/20 09:00 General appearance: other (Intubated) HEENT: Positive: Normocephaly Neck: Positive: trachea midline Lungs: Positive: clear to auscultation Neuro: Positive: Other (Patient intubated, history of quadriplegia.) Abdomen: Positive: Unremarkable Results 08/05/20 08:48 08/05/20 Unknown Cardiac Enzymes 08/05/20 Range/Units 08:48 AST 37 (5-40) units/L CBC 08/04/20 08/05/20 Range/Units 16:25 08:48 WBC 21.5 H 14.3 H (4.5-11.0) K/mm3 RBC 2.10 L 2.76 L (3.65-5.03) M/mm3 Hgb 7.3 L 8.1 L (11.8-15.2) gm/dl Hct 22.0 L 24.8 L (35.5-45.6) % Plt Count 133 L 138 L (140-440) K/mm3 Comprehensive Metabolic Panel 08/05/20 08/05/20 Range/Units 08:48 Unknown Sodium 146 H 142 (137-145) mmol/L Potassium 4.2 3.8 (3.6-5.0) mmol/L Chloride 110.1 H 109.2 H (98-107) mmol/L Carbon Dioxide 27 25 (22-30) mmol/L BUN 56 H 51 H (9-20) mg/dL Creatinine 1.1 1.0 (0.8-1.3) mg/dL Glucose 219 H 229 H (75-100) mg/dL Calcium 9.3 8.7 (8.4-10.2) mg/dL AST 37 (5-40) units/L ALT 25 (7-56) units/L Alkaline Phosphatase 192 H (35-129) units/L Total Protein 5.8 L (6.3-8.2) g/dL Albumin 2.0 L (3.9-5) g/dL EKG interpretations - Telemetry EKG Rhythm: Sinus Rhythm (Biatrial enlargement. Left ventricular hypertrophy. Telemetry strips not available for the bradycardic episode) Assessment and Plan Impression #Bradycardia in the endotracheal tube suction and Precedex. No CPR was done. Patient spontaneously reverted to sinus rhythm. Currently maintaining sinus rhythm with PVCs. No further cardiac work-up recommended at this point. Precedex has been discontinued. Recommend atropine by the bedside. #Septic shock: Resolved likely due to candidemia +/-pneumonia. Followed by ID. #Candidemia: Repeat blood culture no growth. Unclear source. ?IV line. Transthoracic echo without vegetation. #Pneumonia: CT chest showed patchy airspace disease suggestive of possible aspiration. #UTI with chronic indwelling catheter #Acute hypoxic respiratory failure: On mechanical ventilation #Transaminitis: Likely sepsis/shock related. Improved. #Sacral decubitus ulcer: Does not appear infected. Continue wound care Recs: -Conservative therapy. -Recent echo with normal LV function -Recommend atropine by the bedside
[2020-08-05] MEDS: INSULIN GLARGINE 100 UNITS/ML SUB-Q SCH (10:33)
[2020-08-05] MEDS: MEROPENEM/NS 1 GRAM/100 ML 1 GRAM/100 ML BAG IV SCH ×2 (10:33→21:26)
--- NOTE | 2020-08-05 10:49 | Progress Note ---
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 ABG Sodium ABG Potassium ABG Chloride ABG Glucose Carboxyhemoglobin Sodium Potassium Chloride Carbon Dioxide BUN Creatinine Glucose POC Glucose 190 H 235 H 194 H Hemoglobin A1c Lactic Acid Calcium Ionized Calcium Phosphorus AST ALT Alkaline Phosphatase Ammonia Total Creatine Kinase Troponin T C-Reactive Protein Total Protein Albumin Triglycerides LDL Cholesterol Direct HDL Cholesterol Arterial Blood Glucose Arterial Blood Ionized Calcium Urine WBC (Auto) Salicylates Crossmatch 08/04/20 08/04/20 08/04/20 03:00 03:00 04:14 WBC RBC Hgb Hct MCV MCH MCHC RDW Plt Count Seg Neuts % (Manual) Lymphocytes % (Manual) Lymphocytes # (Manual) PT INR ABG pH POC ABG pCO2 POC ABG pO2 79.5 L ABG pO2 ABG Hemoglobin 9.9 L ABG Oxyhemoglobin ABG Sodium ABG Potassium ABG Chloride 113.0 H ABG Glucose 227 H Carboxyhemoglobin 0.3 L Sodium Potassium Chloride 111.4 H Carbon Dioxide BUN 51 H Creatinine Glucose 218 H POC Glucose Hemoglobin A1c Lactic Acid Calcium Ionized Calcium Phosphorus AST ALT Alkaline Phosphatase Ammonia Total Creatine Kinase Troponin T C-Reactive Protein Total Protein Albumin Triglycerides 184 H LDL Cholesterol Direct HDL Cholesterol Arterial Blood Glucose 227 H Arterial Blood Ionized Calcium Urine WBC (Auto) Salicylates Crossmatch 08/04/20 08/04/20 08/04/20 05:17 11:52 11:53 WBC RBC Hgb Hct MCV MCH MCHC RDW Plt Count Seg Neuts % (Manual) Lymphocytes % (Manual) Lymphocytes # (Manual) PT INR ABG pH POC ABG pCO2 POC ABG pO2 ABG pO2 ABG Hemoglobin ABG Oxyhemoglobin ABG Sodium ABG Potassium ABG Chloride ABG Glucose Carboxyhemoglobin Sodium Potassium Chloride Carbon Dioxide BUN Creatinine Glucose POC Glucose 224 H 253 H 237 H Hemoglobin A1c Lactic Acid Calcium Ionized Calcium Phosphorus AST ALT Alkaline Phosphatase Ammonia Total Creatine Kinase Troponin T C-Reactive Protein Total Protein Albumin Triglycerides LDL Cholesterol Direct HDL Cholesterol Arterial Blood Glucose Arterial Blood Ionized Calcium Urine WBC (Auto) Salicylates Crossmatch 08/04/20 08/04/20 08/04/20 15:35 16:25 17:45 WBC 21.5 H RBC 2.10 L Hgb 7.3 L Hct 22.0 L MCV MCH 33 H MCHC 37 H RDW 17.2 H Plt Count 133 L Seg Neuts % (Manual) Lymphocytes % (Manual) Lymphocytes # (Manual) PT INR ABG pH POC ABG pCO2 POC ABG pO2 ABG pO2 ABG Hemoglobin ABG Oxyhemoglobin ABG Sodium ABG Potassium ABG Chloride ABG Glucose Carboxyhemoglobin Sodium Potassium Chloride Carbon Dioxide BUN Creatinine Glucose POC Glucose 230 H 218 H Hemoglobin A1c Lactic Acid Calcium Ionized Calcium Phosphorus AST ALT Alkaline Phosphatase Ammonia Total Creatine Kinase Troponin T C-Reactive Protein Total Protein Albumin Triglycerides LDL Cholesterol Direct HDL Cholesterol Arterial Blood Glucose Arterial Blood Ionized Calcium Urine WBC (Auto) Salicylates Crossmatch 08/04/20 08/05/20 08/05/20 23:11 03:28 05:25 WBC RBC Hgb Hct MCV MCH MCHC RDW Plt Count Seg Neuts % (Manual) Lymphocytes % (Manual) Lymphocytes # (Manual) PT INR ABG pH POC ABG pCO2 POC ABG pO2 82.1 L ABG pO2 ABG Hemoglobin 8.6 L ABG Oxyhemoglobin 93.7 L ABG Sodium ABG Potassium ABG Chloride 113.0 H ABG Glucose 205 H Carboxyhemoglobin Sodium Potassium Chloride Carbon Dioxide BUN Creatinine Glucose POC Glucose 198 H 213 H Hemoglobin A1c Lactic Acid Calcium Ionized Calcium Phosphorus AST ALT Alkaline Phosphatase Ammonia Total Creatine Kinase Troponin T C-Reactive Protein Total Protein Albumin Triglycerides LDL Cholesterol Direct HDL Cholesterol Arterial Blood Glucose 205 H Arterial Blood Ionized Calcium Urine WBC (Auto) Salicylates Crossmatch 08/05/20 08/05/20 08/05/20 08:48 08:48 Unknown WBC 14.3 H RBC 2.76 L Hgb 8.1 L Hct 24.8 L MCV MCH MCHC RDW 17.4 H Plt Count 138 L Seg Neuts % (Manual) Lymphocytes % (Manual) Lymphocytes # (Manual) PT INR ABG pH POC ABG pCO2 POC ABG pO2 ABG pO2 ABG Hemoglobin ABG Oxyhemoglobin ABG Sodium ABG Potassium ABG Chloride ABG Glucose Carboxyhemoglobin Sodium 146 H Potassium Chloride 110.1 H 109.2 H Carbon Dioxide BUN 56 H 51 H Creatinine Glucose 219 H 229 H POC Glucose Hemoglobin A1c Lactic Acid Calcium Ionized Calcium Phosphorus AST ALT Alkaline Phosphatase 192 H Ammonia Total Creatine Kinase Troponin T C-Reactive Protein Total Protein 5.8 L Albumin 2.0 L Triglycerides LDL Cholesterol Direct HDL Cholesterol Arterial Blood Glucose Arterial Blood Ionized Calcium Urine WBC (Auto) Salicylates Crossmatch [employer] notes reviewed: RT
[2020-08-05 12:30] LABS: Hypochromasia Few; Platelet Estimate Consistent w Auto; Target Cells Few; Total Cells Counted 100
[2020-08-05] MEDS: FONDAPARINUX 2.5 MG/0.5 ML INJ SUB-Q SCH (12:34)
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
[2020-08-05] MEDS: FLUCONAZOLE 400 MG 200 ML IV SCH (15:45)
[2020-08-05] MEDS: fentaNYL 100 MCG/2 ML INJ IV PRN (23:39)
[2020-08-06] MEDS: fentaNYL DRIP Premix 2,000 MCG/100 ML BAG IV SCH ×5 (00:05→22:32)
[2020-08-06] MEDS: INSULIN LISPRO 100 UNIT/ML SUB-Q SCH ×4 (00:12→18:32)
[2020-08-06 09:13] LABS: Heparin-Induced Platelet Antib Negative (Negative); Unfractionated Heparin Negative (Negative)
[2020-08-06] MEDS: ENOXAPARIN 40 MG/0.4 ML INJ SUB-Q SCH (10:17)
[2020-08-06] MEDS: amLODIPine 5 MG TAB PO SCH (10:18)
[2020-08-06] MEDS: MEROPENEM/NS 1 GRAM/100 ML 1 GRAM/100 ML BAG IV SCH (10:18)
[2020-08-06] MEDS: INSULIN GLARGINE 100 UNITS/ML SUB-Q SCH (10:18)
[2020-08-06] MEDS: ASCORBIC ACID 500 MG TAB PO SCH ×2 (10:19→21:13)
[2020-08-06] MEDS: ZINC SULFATE 220 MG CAP PO SCH ×2 (10:19→21:13)
[2020-08-06] MEDS: SENNOSIDES/DOCUSATE SODIUM 8.6/50 MG TAB FEEDTUBE SCH ×2 (10:19→21:13)
[2020-08-06] MEDS: FAMOTIDINE 20 MG TAB PO SCH ×2 (10:19→21:13)
--- NOTE | 2020-08-06 10:32 | Progress Note ---
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 (24.2-36.6) 07/28/20 08:48 Heparin Anti-Xa, Unfract Negative (Negative) 08/01/20 23:40 ABG pH 7.308 (7.320-7.450) L 08/06/20 10:00 POC ABG pCO2 49.1 mmHg (32.0-48.0) H 08/06/20 10:00 ABG pCO2 46.4 mm Hg 08/02/20 03:50 POC ABG pO2 97.2 mmHg (83-108) 08/06/20 10:00 ABG pO2 91.5 mm Hg (80.0-90.0) H 08/02/20 03:50 POC ABG HCO3 24.1 08/06/20 10:00 ABG HCO3 24.1 mmol/L (20.0-26.0) 08/02/20 03:50 ABG O2 Saturation 97.0 (0-100) 08/06/20 10:00 ABG O2 Content 10.7 (0.0-44) 08/02/20 03:50 POC ABG Base Excess -2.1 08/06/20 10:00 ABG Base Excess -1.7 mmol/L (-2.0-3.0) 08/02/20 03:50 ABG Hemoglobin 7.1 (12.0-17.5) L 08/06/20 10:00 ABG Oxyhemoglobin 95.3 (94-98) 08/06/20 10:00 ABG Carboxyhemoglobin 1.6 % (0.0-5.0) 08/02/20 03:50 ABG Methemoglobin 0.3 (0.0-1.5) 08/06/20 10:00 ABG Sodium 143.0 mmol/L (136.0-145.0) 08/06/20 10:00 ABG Potassium 4.3 mmol/L (3.40-4.50) 08/06/20 10:00 ABG Chloride 112.0 mmol/L (98-107) H 08/06/20 10:00 ABG Glucose 162 mg/dL (65-95) H 08/06/20 10:00 VBG pH 7.377 (7.320-7.420) 07/28/20 09:44 Oxyhemoglobin 95.2 % (95.0-99.0) 08/02/20 03:50 Carboxyhemoglobin 1.5 (0.5-1.5) 08/06/20 10:00 FiO2 40 % 08/02/20 03:50 FiO2 % 75.0 08/06/20 10:00 Sodium 142 mmol/L (137-145) 08/05/20 Unknown Potassium 3.8 mmol/L (3.6-5.0) 08/05/20 Unknown Chloride 109.2 mmol/L (98-107) H 08/05/20 Unknown Carbon Dioxide 25 mmol/L (22-30) 08/05/20 Unknown Anion Gap 12 mmol/L 08/05/20 Unknown BUN 51 mg/dL (9-20) H 08/05/20 Unknown Creatinine 1.0 mg/dL (0.8-1.3) 08/05/20 Unknown Estimated GFR > 60 ml/min 08/05/20 Unknown BUN/Creatinine Ratio 51 % 08/05/20 Unknown Glucose 229 mg/dL (75-100) H 08/05/20 Unknown POC Glucose 158 mg/dL (70-105) H 08/06/20 11:28 Hemoglobin A1c 8.8 % (4-6) H 08/01/20 04:30 Lactic Acid 1.60 mmol/L (0.7-2.0) 07/30/20 05:45 Calcium 8.7 mg/dL (8.4-10.2) 08/05/20 Unknown Ionized Calcium 4.2 mg/dL (4.8-5.6) L 07/30/20 19:01 Phosphorus 2.90 mg/dL (2.5-4.5) D 08/04/20 03:00 Magnesium 2.30 mg/dL (1.7-2.3) 08/02/20 Unknown Total Bilirubin 0.20 mg/dL (0.1-1.2) 08/05/20 08:48 AST 37 units/L (5-40) 08/05/20 08:48 ALT 25 units/L (7-56) 08/05/20 08:48 Alkaline Phosphatase 192 units/L (35-129) H 08/05/20 08:48 Ammonia 63.0 umol/L (25-60) H 07/28/20 08:48 Total Creatine Kinase 486 units/L (55-170) H 07/28/20 08:48 Troponin T 0.115 ng/mL (0.00-0.029) H* 07/28/20 08:48 C-Reactive Protein 9.00 mg/dL (0.00-1.30) H 07/28/20 19:50 Total Protein 5.8 g/dL (6.3-8.2) L 08/05/20 08:48 Albumin 2.0 g/dL (3.9-5) L 08/05/20 08:48 Albumin/Globulin Ratio 0.5 % 08/05/20 08:48 Triglycerides 184 mg/dL (2-149) H 08/04/20 03:00 Cholesterol 80 mg/dL (50-199) 07/28/20 08:48 LDL Cholesterol Direct 44 mg/dL (50-130) L 07/28/20 08:48 HDL Cholesterol 26 mg/dL (40-59) L 07/28/20 08:48 Cholesterol/HDL Ratio 3.07 % 07/28/20 08:48 Procalcitonin 177.82 ng/mL (<0.15) 07/28/20 19:50 TSH 2.450 mlU/mL (0.270-4.200) 07/28/20 08:48 Arterial Blood Glucose 162 mg/dL (65-95) H 08/06/20 10:00 Arterial Blood Ionized Calcium 5.0 mg/dL (4.6-5.3) 08/06/20 10:00 Urine Color [place] (Yellow) 07/28/20 Unknown Urine Turbidity Cloudy (Clear) 07/28/20 Unknown Urine pH 5.0 (5.0-7.0) 07/28/20 Unknown Ur Specific [place] 1.018 (1.003-1.030) 07/28/20 Unknown Urine Protein 100 mg/dl mg/dL (Negative) 07/28/20 Unknown Urine Glucose (UA) Neg mg/dL (Negative) 07/28/20 Unknown Urine Ketones Neg mg/dL (Negative) 07/28/20 Unknown Urine Blood Lg (Negative) 07/28/20 Unknown Urine Nitrite Neg (Negative) 07/28/20 Unknown Urine Bilirubin Neg (Negative) 07/28/20 Unknown Urine Urobilinogen 2.0 mg/dL (<2.0) 07/28/20 Unknown Ur Leukocyte Esterase Lg (Negative) 07/28/20 Unknown Urine WBC (Auto) > 182.0 /HPF (0.0-6.0) H 07/28/20 Unknown Urine RBC (Auto) 30.0 /HPF (0.0-6.0) 07/28/20 Unknown U Epithel Cells (Auto) 2.0 /HPF (0-13.0) 07/28/20 Unknown Urine Bacteria (Auto) 1+ /HPF (Negative) 07/28/20 Unknown Ur Transition Epith Cell 4 /HPF 07/28/20 Unknown Hyaline Casts 5 /LPF 07/28/20 Unknown Urine Mucus Few /HPF 07/28/20 Unknown Nasal Screen MRSA (PCR) Negative (Negative) 07/29/20 Unknown Salicylates < 0.3 mg/dL (2.8-20.0) L 07/28/20 09:44 Plasma/Serum Alcohol < 0.01 % (0-0.07) 07/28/20 09:44 Heparin-induced Plt Ab Negative (Negative) 08/01/20 23:40 UF Heparin High Dose 0 % Release 08/01/20 23:40 DEISY UFH Low Dose 0.1 0 % Release 08/01/20 23:40 DEISY UFH Low Dose 0.5 0 % Release 08/01/20 23:40 Coronavirus (PCR) Negative (Negative) 07/29/20 09:15 Blood Type O POSITIVE 08/01/20 08:40 Antibody Screen Negative 08/01/20 08:40 Crossmatch See Detail 08/01/20 08:40 Microbiology: Microbiology 08/06/20 11:55 Bronchial Washings - Left Upper Lobe Respiratory Culture - Preliminary 08/02/20 16:56 Peripheral/Venous Blood Culture - Preliminary NO GROWTH AFTER 72 HOURS 08/02/20 16:56 Peripheral/Venous Blood Culture - Preliminary NO GROWTH AFTER 72 HOURS 07/31/20 14:31 Peripheral/Venous Blood Culture - Final NO GROWTH AFTER 5 DAYS Ashley/IV: Voiding Method Indwelling Catheter Active Medications - Current Medications Current Medications: Generic Name Dose Route Start Last Admin Trade Name Freq PRN Reason Stop Dose Admin Acetaminophen 650 mg 07/28/20 14:27 Acetaminophen 325 Mg Tab PO Q6H PRN Pain, Mild (1-3) Acetylcysteine 200 mg 08/06/20 14:00 08/06/20 13:55 Acetylcysteine 20% 200 Mg/1 Ml *For Inhalation Use* INHALATION 200 mg Q6HRT [place] Administration Albuterol 2.5 mg 07/28/20 14:27 08/05/20 14:27 Albuterol 2.5 Mg/3 Ml Nebu IH 2.5 mg Q3H PRN Administration Shortness Of Breath Albuterol 2.5 mg 08/06/20 14:00 08/06/20 13:55 Albuterol 2.5 Mg/3 Ml Nebu IH 2.5 mg Q6HRT [place] Administration Amlodipine Besylate 5 mg 08/04/20 10:00 08/06/20 10:18 Amlodipine 5 Mg Tab PO 5 mg QDAY [place] Administration Lipase/Protease/Amylase 1 each 07/29/20 09:55 Lipase 10,500/Protease 25,000/Amylase 43,750 (Units) Dr Ron VITALTUBE PRN PRN For Clogged Feeding Tube Ascorbic Acid 500 mg 08/01/20 22:00 08/06/20 10:19 Ascorbic Acid 500 Mg Tab PO 500 mg BID [place] Administration Dextrose 50 ml 07/29/20 15:46 Dextrose 50% In Water (25gm) 50 Ml Syringe IV Q30MIN PRN Hypoglycemia Protocol Enoxaparin Sodium 40 mg 08/06/20 10:00 08/06/20 10:17 Enoxaparin 40 Mg/0.4 Ml Inj SUB-Q 40 mg QDAY@1000 [place] Administration Famotidine 20 mg 07/30/20 10:00 08/06/20 10:19 Famotidine 20 Mg Tab PO 20 mg BID [place] Administration Hydralazine HCl 5 mg 08/04/20 08:06 08/04/20 12:34 Hydralazine 20 Mg/1 Ml Inj IV 5 mg Q4HR PRN Administration Blood Pressure Hydrophilic Ointment 1 applic 07/28/20 09:30 Lip Therapy Vaseline TP Q2H PRN Dry Lips Fentanyl Citrate 2,000 mcg in 100 mls @ 4.082 mls/hr 07/28/20 16:00 08/06/20 16:33 Fentanyl Drip Premix IV 4 mcg/kg/hr TITR [place] 16.329 mls/hr Administration Protocol 1 MCG/KG/HR Fluconazole 200 mls @ 100 mls/hr 08/01/20 15:00 08/06/20 15:09 Diflucan IV 08/14/20 16:59 100 mls/hr Q24H [place] Administration Protocol Propofol 1,000 mg in 100 mls @ 2.449 mls/hr 08/02/20 12:00 08/06/20 13:00 Diprivan 10 Mg/Ml IV 20 mcg/kg/min TITR [place] 9.798 mls/hr Titration Protocol 5 MCG/KG/MIN Insulin Glargine 25 units 08/04/20 10:00 08/06/20 10:18 Insulin Glargine 100 Units/Ml SUB-Q 25 units QDAY [place] Administration Insulin Human Lispro 0 unit 08/04/20 12:00 08/06/20 16:02 Insulin Lispro 100 Unit/Ml SUB-Q Not Given Q6HR [facility] Protocol Multi-Ingred Cream/Lotion/Oil/Oint 1 applic 07/28/20 09:30 Mineral Oil/Petrolatum, White Ophth Oint 3.5 Gm OU Q4H PRN Dry Eye(s) Senna/Docusate Sodium 1 tab 07/28/20 22:00 08/06/20 10:19 Sennosides/Docusate Sodium 8.6/50 Mg Tab FEEDTUBE 1 tab BID [place] Administration Simple Syrup 15 ml 07/29/20 09:55 Simple Syrup 15 Ml FEEDTUBE PRN PRN Hypoglycemia Simple Syrup 30 ml 07/29/20 09:55 Simple Syrup 15 Ml FEEDTUBE PRN PRN Hypoglycemia Sodium Bicarbonate 325 mg 07/29/20 09:55 Sodium Bicarbonate 325 Mg Tab FEEDTUBE PRN PRN For Clogged Feeding Tube Sodium Chloride 10 ml 07/28/20 22:00 08/06/20 10:19 Sodium Chloride 0.9% 10 Ml Flush Syringe IV 10 ml BID [place] Administration Sodium Chloride 10 ml 07/28/20 14:27 Sodium Chloride 0.9% 10 Ml Flush Syringe IV PRN PRN LINE FLUSH Zinc Sulfate 220 mg 08/01/20 15:00 08/06/20 10:19 Zinc Sulfate 220 Mg Cap PO 220 mg BID [place] Administration Nutrition/Malnutrition Assess - Dietary Evaluation Nutrition/Malnutrition Findings: Nutrition Notes Start: 07/29/20 09:47 Freq: Status: Active Protocol: Document 08/05/20 11:52 SOFYA (Rec: 08/05/20 11:59 [facility] [id number]) Nutrition Notes Initial or Follow up Reassessment Current Diagnosis Acute Kidney Injury, Respiratory Failure Other Pertinent Diagnosis Acute encephalopathy, Pneu, UTI, Quadriplegia Current Diet TF - Vital AF 1.2 at 65ml/hr Labs/Tests BUN 51 BG 229 Pertinent Medications Reviewed Height 6 ft Weight 81.647 kg [place] Body Weight (kg) 80.90 BMI 24.4 Weight Status Appropriate Subjective/Other Information Spoke with RN via phone at 11: 52; pt tolerating TF at goal rate and remains on vent support. Currently off propofol. Percent of energy/protein needs met: 96% energy 100% pro Burn Absent Trauma Absent #2 Nutrition Diagnosis Increased nutrient needs ( specify in comment below) Diagnosis Progress(for reassessment Continues documentation) #1 Nutrition Diagnosis Inadequate oral intake Diagnosis Progress(for reassessment Continues documentation) Is patient on ventilator? Yes Is Patient Ambulatory and/or Out of Bed No REE-([facility]-confined to bed) 1943.100 Calculation Used for Recommendations [facility] Additional Notes Pro needs 1.2-2g/k-163g/ day Fluid needs 1ml/kcal Nutrition Intervention Nutrition Support: Continue Vital AF 1.2 at 65ml/ hr with 100 ml water flush q4h . Kcal 1,872 Protein (gm) 117 Fluid (mL) 1,265 Add Supplement/Snack (indicate name/kcal Reji BID /protein ) Provides kCal: 190 Provides Protein (gm) 5 Goal #1 TF tolerance Goal #2 TF to meet 80-100% energy and pro needs Follow-Up By: 08/10/20 Additional Comments F/U: stable TF, vent status, Reji administration
--- NOTE | 2020-08-06 10:48 | Progress Note ---
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 WBC (Auto) Salicylates Crossmatch 08/04/20 08/04/20 08/04/20 05:17 11:52 11:53 WBC RBC Hgb Hct MCV MCH MCHC RDW Plt Count Seg Neuts % (Manual) Lymphocytes % (Manual) Seg Neutrophils # Man Lymphocytes # (Manual) PT INR ABG pH POC ABG pCO2 POC ABG pO2 ABG pO2 ABG Hemoglobin ABG Oxyhemoglobin ABG Sodium ABG Potassium ABG Chloride ABG Glucose Carboxyhemoglobin Sodium Potassium Chloride Carbon Dioxide BUN Creatinine Glucose POC Glucose 224 H 253 H 237 H Hemoglobin A1c Lactic Acid Calcium Ionized Calcium Phosphorus AST ALT Alkaline Phosphatase Ammonia Total Creatine Kinase Troponin T C-Reactive Protein Total Protein Albumin Triglycerides LDL Cholesterol Direct HDL Cholesterol Arterial Blood Glucose Arterial Blood Ionized Calcium Urine WBC (Auto) Salicylates Crossmatch 08/04/20 08/04/20 08/04/20 15:35 16:25 17:45 WBC 21.5 H RBC 2.10 L Hgb 7.3 L Hct 22.0 L MCV MCH 33 H MCHC 37 H RDW 17.2 H Plt Count 133 L Seg Neuts % (Manual) Lymphocytes % (Manual) Seg Neutrophils # Man Lymphocytes # (Manual) PT INR ABG pH POC ABG pCO2 POC ABG pO2 ABG pO2 ABG Hemoglobin ABG Oxyhemoglobin ABG Sodium ABG Potassium ABG Chloride ABG Glucose Carboxyhemoglobin Sodium Potassium Chloride Carbon Dioxide BUN Creatinine Glucose POC Glucose 230 H 218 H Hemoglobin A1c Lactic Acid Calcium Ionized Calcium Phosphorus AST ALT Alkaline Phosphatase Ammonia Total Creatine Kinase Troponin T C-Reactive Protein Total Protein Albumin Triglycerides LDL Cholesterol Direct HDL Cholesterol Arterial Blood Glucose Arterial Blood Ionized Calcium Urine WBC (Auto) Salicylates Crossmatch 08/04/20 08/05/20 08/05/20 23:11 03:28 05:25 WBC RBC Hgb Hct MCV MCH MCHC RDW Plt Count Seg Neuts % (Manual) Lymphocytes % (Manual) Seg Neutrophils # Man Lymphocytes # (Manual) PT INR ABG pH POC ABG pCO2 POC ABG pO2 82.1 L ABG pO2 ABG Hemoglobin 8.6 L ABG Oxyhemoglobin 93.7 L ABG Sodium ABG Potassium ABG Chloride 113.0 H ABG Glucose 205 H Carboxyhemoglobin Sodium Potassium Chloride Carbon Dioxide BUN Creatinine Glucose POC Glucose 198 H 213 H Hemoglobin A1c Lactic Acid Calcium Ionized Calcium Phosphorus AST ALT Alkaline Phosphatase Ammonia Total Creatine Kinase Troponin T C-Reactive Protein Total Protein Albumin Triglycerides LDL Cholesterol Direct HDL Cholesterol Arterial Blood Glucose 205 H Arterial Blood Ionized Calcium Urine WBC (Auto) Salicylates Crossmatch 08/05/20 08/05/20 08/05/20 08:48 08:48 10:55 WBC 14.3 H RBC 2.76 L Hgb 8.1 L Hct 24.8 L MCV MCH MCHC RDW 17.4 H Plt Count 138 L Seg Neuts % (Manual) 97.0 H Lymphocytes % (Manual) 1.0 L Seg Neutrophils # Man 13.9 H Lymphocytes # (Manual) 0.1 L PT INR ABG pH POC ABG pCO2 POC ABG pO2 158.7 H ABG pO2 ABG Hemoglobin 7.8 L ABG Oxyhemoglobin ABG Sodium ABG Potassium ABG Chloride 114.0 H ABG Glucose 242 H Carboxyhemoglobin Sodium 146 H Potassium Chloride 110.1 H Carbon Dioxide BUN 56 H Creatinine Glucose 219 H POC Glucose Hemoglobin A1c Lactic Acid Calcium Ionized Calcium Phosphorus AST ALT Alkaline Phosphatase 192 H Ammonia Total Creatine Kinase Troponin T C-Reactive Protein Total Protein 5.8 L Albumin 2.0 L Triglycerides LDL Cholesterol Direct HDL Cholesterol Arterial Blood Glucose 242 H Arterial Blood Ionized Calcium Urine WBC (Auto) Salicylates Crossmatch 08/05/20 08/05/20 08/05/20 11:12 11:30 17:08 WBC RBC Hgb Hct MCV MCH MCHC RDW Plt Count Seg Neuts % (Manual) Lymphocytes % (Manual) Seg Neutrophils # Man Lymphocytes # (Manual) PT INR ABG pH POC ABG pCO2 POC ABG pO2 147.5 H ABG pO2 ABG Hemoglobin 7.5 L ABG Oxyhemoglobin 98.1 H ABG Sodium ABG Potassium ABG Chloride 113.0 H ABG Glucose 248 H Carboxyhemoglobin Sodium Potassium Chloride Carbon Dioxide BUN Creatinine Glucose POC Glucose 238 H 239 H Hemoglobin A1c Lactic Acid Calcium Ionized Calcium Phosphorus AST ALT Alkaline Phosphatase Ammonia Total Creatine Kinase Troponin T C-Reactive Protein Total Protein Albumin Triglycerides LDL Cholesterol Direct HDL Cholesterol Arterial Blood Glucose 248 H Arterial Blood Ionized Calcium Urine WBC (Auto) Salicylates Crossmatch 08/05/20 08/05/20 08/06/20 23:17 Unknown 05:12 WBC RBC Hgb Hct MCV MCH MCHC RDW Plt Count Seg Neuts % (Manual) Lymphocytes % (Manual) Seg Neutrophils # Man Lymphocytes # (Manual) PT INR ABG pH POC ABG pCO2 POC ABG pO2 ABG pO2 ABG Hemoglobin ABG Oxyhemoglobin ABG Sodium ABG Potassium ABG Chloride ABG Glucose Carboxyhemoglobin Sodium Potassium Chloride 109.2 H Carbon Dioxide BUN 51 H Creatinine Glucose 229 H POC Glucose 200 H 145 H Hemoglobin A1c Lactic Acid Calcium Ionized Calcium Phosphorus AST ALT Alkaline Phosphatase Ammonia Total Creatine Kinase Troponin T C-Reactive Protein Total Protein Albumin Triglycerides LDL Cholesterol Direct HDL Cholesterol Arterial Blood Glucose Arterial Blood Ionized Calcium Urine WBC (Auto) Salicylates Crossmatch 08/06/20 08/06/20 05:21 10:00 WBC RBC Hgb Hct MCV MCH MCHC RDW Plt Count Seg Neuts % (Manual) Lymphocytes % (Manual) Seg Neutrophils # Man Lymphocytes # (Manual) PT INR ABG pH 7.301 L 7.308 L POC ABG pCO2 49.5 H 49.1 H POC ABG pO2 178.4 H ABG pO2 ABG Hemoglobin 7.5 L 7.1 L ABG Oxyhemoglobin 98.8 H ABG Sodium ABG Potassium ABG Chloride 112.0 H 112.0 H ABG Glucose 149 H 162 H Carboxyhemoglobin Sodium Potassium Chloride Carbon Dioxide BUN Creatinine Glucose POC Glucose Hemoglobin A1c Lactic Acid Calcium Ionized Calcium Phosphorus AST ALT Alkaline Phosphatase Ammonia Total Creatine Kinase Troponin T C-Reactive Protein Total Protein Albumin Triglycerides LDL Cholesterol Direct HDL Cholesterol Arterial Blood Glucose 149 H 162 H Arterial Blood Ionized Calcium Urine WBC (Auto) Salicylates Crossmatch Chest x-ray: image reviewed (left lung hemiopafication) Allied health notes reviewed: RT
[2020-08-06] MEDS ORDERED: D5W/LACTATED RINGERS 0 ML IV ONE (10:52)
[2020-08-06] MEDS ORDERED: fentaNYL 100 MCG/2 ML INJ IV ONE (11:00)
[2020-08-06] MEDS ORDERED: WATER FOR IRRIG STERILE 1,000 ML BOTTLE IR ONE (11:00)
[2020-08-06] MEDS ORDERED: ROCURONIUM 50 MG/5 ML INJ IV ONE (11:00)
[2020-08-06] MEDS ORDERED: MIDAZOLAM 5 MG/5 ML INJ MDV IV ONE (11:00)
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
[2020-08-06] MEDS ORDERED: SODIUM CHLORIDE 0.9% 500 ML 500 ML ONE (11:14)
--- NOTE | 2020-08-06 11:56 | Progress Note ---
Assessment and Plan Cultures: 07/28/2020 blood culture: C albicans 07/28/2020 urine culture: No growth COVID PCR: negative 07/31/2020 blood culture: Coag negative staph in 1 of 4 bottles (contaminant) 08/02/2020 blood culture: No growth A/P: 69-year-old [facility] resident with quadriplegia, spinal cord injury, was brought in due to fever and sepsis: #Septic shock: Resolved likely due to candidemia +/-pneumonia. #Candidemia: Repeat blood culture no growth. Unclear source. ?IV line. Trans thoracic echo without vegetation. #Pneumonia: CT chest showed patchy airspace disease suggestive of possible aspiration. Chest x-ray today with left lung whiteout, getting bronc #UTI with chronic indwelling catheter #Acute hypoxic respiratory failure: On mechanical ventilation #Transaminitis: Likely sepsis/shock related. Improved. #Sacral decubitus ulcer: Does not appear infected. Continue wound care. Recs: -Continue fluconazole 400 mg IV once a day, complete 14 days from clearance of candidemia -Completed meropenem Dominga Simmons MD, FACP [facility] O: [phone] F: [phone] Subjective Date of service: 08/06/20 Principal diagnosis: Ac. encephalopathy; Ac. hypoxemic resp failure; Septic Shock; PNA; UTI; [place]FF[place] Interval history: No fever. Remains on the vent. Chest x-ray with whiteout of left lung today. Objective - Exam Narrative Exam: Physical Exam: Constitutional: sedated, intubated, on the vent Head, Ears, Nose: Normocephalic, atraumatic. External ears, nose normal Eyes: Conjunctivae/corneas clear. No icterus. No ptosis. Neck: intubated Oral: intubated Cardiovascular: S1, S2 + Respiratory: AE fair bilaterally and equal GI: Soft, bowel sounds + Musculoskeletal: Bilateral pedal edema Skin: No rash or abscess Hem/Lymphatic: No palpable cervical or supraclavicular nodes. No lymphangitis Psych: no agitation Neurological: sedated, intubated, on the vent, exam limited - Constitutional Vitals: Vital Signs Temp Pulse Resp BP Pulse Ox 97.5 F L 90 21 136/50 98 08/06/20 08:00 08/06/20 10:18 08/06/20 10:15 08/06/20 10:18 08/06/20 10:15 Temperature -Last 24 Hours Temperature 97.5 F Temperature 98.4 F Temperature 98.7 F Temperature 97.7 F - Labs CBC & Chem 7: 08/05/20 08:48 08/05/20 Unknown Labs: Abnormal lab results 08/05/20 08/05/20 08/05/20 Range/Units 08:48 17:08 23:17 Seg Neuts % (Manual) 97.0 H (40.0-70.0) % Lymphocytes % (Manual) 1.0 L (13.4-35.0) % Seg Neutrophils # Man 13.9 H (1.8-7.7) K/mm3 Lymphocytes # (Manual) 0.1 L (1.2-5.4) K/mm3 ABG pH (7.320-7.450) POC ABG pCO2 (32.0-48.0) mmHg POC ABG pO2 (83-108) mmHg ABG Hemoglobin (12.0-17.5) ABG Oxyhemoglobin (94-98) ABG Chloride (98-107) mmol/L ABG Glucose (65-95) mg/dL POC Glucose 239 H 200 H (70-105) mg/dL Arterial Blood Glucose (65-95) mg/dL 08/06/20 08/06/20 08/06/20 Range/Units 05:12 05:21 10:00 Seg Neuts % (Manual) (40.0-70.0) % Lymphocytes % (Manual) (13.4-35.0) % Seg Neutrophils # Man (1.8-7.7) K/mm3 Lymphocytes # (Manual) (1.2-5.4) K/mm3 ABG pH 7.301 L 7.308 L (7.320-7.450) POC ABG pCO2 49.5 H 49.1 H (32.0-48.0) mmHg POC ABG pO2 178.4 H (83-108) mmHg ABG Hemoglobin 7.5 L 7.1 L (12.0-17.5) ABG Oxyhemoglobin 98.8 H (94-98) ABG Chloride 112.0 H 112.0 H (98-107) mmol/L ABG Glucose 149 H 162 H (65-95) mg/dL POC Glucose 145 H (70-105) mg/dL Arterial Blood Glucose 149 H 162 H (65-95) mg/dL - Imaging and cardiology Chest x-ray: report reviewed, image reviewed (left lung white out)
[2020-08-06] MEDS ORDERED: SODIUM CHLORIDE 0.9% 500 ML 500 ML IV SCH (12:00)
--- NOTE | 2020-08-06 12:06 | Procedure Note ---
Date of procedure: 08/06/20 Pre-op diagnosis: Resp failure, ETT size 6 with high PIP Post-op diagnosis: same Procedure: Endotracheal intubation with glidescope. Patient was extubated and re-intubated IV Fentanyl 100mcg, IV Midazolam 2mg and IV Rocuronium 75mg administered. Using the glidescope patient was intubated with a size 8 ETT, without difficulty. Post procedure patient was bradycardic to the 30s, responded to a dose of atropine. Surgeon: DIONISIO BUSTAMANTE Estimated blood loss: none Pathology: none Condition: critical Disposition: ICU
--- NOTE | 2020-08-06 12:11 | Procedure Note ---
Date of procedure: 08/06/20 Pre-op diagnosis: Left lung collapse, hypoxia Procedure: Patient was orally intuabted. A consent was obtained over the phone from his next of kin. The indications, risks, benefits, alternatives were discussed and a telephone consent obtained with a witness. the consent has been filed in the patient's paper chart as part of the medical records. A time out was done. [place] precautions addressed. A fiberoptic bronch was inserted through the airway, ETT is in good position. The left upper lobe was occluded by mucous. Therapeutic suctioning was done. Bronchial washings obtained from the left lung. The RUL, RML and RLL were inspected- no endobronchial lesions were noted. The left lung was inspected after the therapeutic suctioning. The OMI, lingula and LLL were normal. No endobronchial leions were noted. Patient tolerated the procedure well. Post procedure CXR was ordered and will be reviewed. Surgeon: DIONISIO BUSTAMANTE Estimated blood loss: none Pathology: none Condition: critical Disposition: ICU
--- NOTE | 2020-08-06 13:39 | XRay Report ---
CHEST 1 VIEW 08/06/2020 12:30 PM INDICATION / CLINICAL INFORMATION: post bronch and ETT change. COMPARISON: 08/06/2020 FINDINGS: SUPPORT DEVICES: Interval advancement of ET tube now with its tip approximately 5.4 cm above the leve l the juan miguel. HEART / MEDIASTINUM: Stable. LUNGS / PLEURA: Significantly improved aeration of the left lung field with persistent pleural parenc hymal opacification in the left mid and lower lung. No pneumothorax. ADDITIONAL FINDINGS: No significant additional findings. IMPRESSION: 1. Interval advancement of ET tube now with its tip approximately 5.4 cm above the level the juan miguel. 2. Significantly improved aeration of the left lung field with persistent pleural-parenchymal opacifi cation of the left mid and lower lobe. Signer Name: Tru Woodson MD Signed: 08/06/2020 1:34 PM Workstation Name: [id number]
[2020-08-06] MEDS: ALBUTEROL 2.5 MG/3 ML NEBU IH SCH ×2 (13:55→19:43)
[2020-08-06] MEDS: ACETYLCYSTEINE 20% 200 MG/1 ML *FOR INHALATION USE INHALATION SCH ×2 (13:55→19:43)
[2020-08-06] MEDS: FLUCONAZOLE 400 MG 200 ML IV SCH (15:09)
[2020-08-06] MEDS ORDERED: ATROPINE 0.1% (1 MG/10 ML) CARDIAC SYRINGE ONE (15:16)
[2020-08-06 19:02] LABS: Hematocrit 21.5 % (35.5-45.6); Hemoglobin 7.1 gm/dl (11.8-15.2); Mean Corpuscular HGB Conc 33 % (32-34); Mean Corpuscular Volume 91 fl (84-94); Platelet Count 142 K/mm3 (140-440); Red Blood Count 2.38 M/mm3 (3.65-5.03); Red Cell Distribution Width 17.6 % (13.2-15.2)
[2020-08-07] MEDS: INSULIN LISPRO 100 UNIT/ML SUB-Q SCH ×4 (00:30→18:53)
[2020-08-07] MEDS: ACETYLCYSTEINE 20% 200 MG/1 ML *FOR INHALATION USE INHALATION SCH ×4 (02:08→20:13)
--- NOTE | 2020-08-07 03:17 | XRay Report ---
CHEST 1 VIEW 08/07/2020 2:10 AM INDICATION / CLINICAL INFORMATION: resp failure. COMPARISON: 08/06/2020 FINDINGS: SUPPORT DEVICES: None. HEART / MEDIASTINUM: No significant abnormality. LUNGS / PLEURA: Diffuse bilateral pulmonary opacities with left effusion No pneumothorax. ADDITIONAL FINDINGS: No significant additional findings. IMPRESSION: 1. No significant change Signer Name: Leonard Ruiz MD Signed: 08/07/2020 3:12 AM Workstation Name: [id number]
[2020-08-07] MEDS: ALBUTEROL 2.5 MG/3 ML NEBU IH SCH ×4 (03:22→20:14)
[2020-08-07] MEDS: fentaNYL DRIP Premix 2,000 MCG/100 ML BAG IV SCH ×2 (04:29→11:00)
[2020-08-07 05:07] LABS: Alanine Aminotransferase 31 units/L (7-56); BUN/Creatinine Ratio 57; Blood Urea Nitrogen 63 mg/dL (9-20); Calcium 9.3 mg/dL (8.4-10.2); Hemolysis Index 3
[2020-08-07 05:37] LABS: Hematocrit 20.9 % (35.5-45.6); Hemoglobin 7.1 gm/dl (11.8-15.2); Mean Corpuscular HGB Conc 34 % (32-34); Mean Corpuscular Volume 90 fl (84-94); Platelet Count 143 K/mm3 (140-440); Red Blood Count 2.32 M/mm3 (3.65-5.03); Red Cell Distribution Width 17.9 % (13.2-15.2)
--- NOTE | 2020-08-07 09:04 | XRay Report ---
CHEST 1 VIEW 08/06/2020 10:44 AM INDICATION / CLINICAL INFORMATION: hypoxia. COMPARISON: 08/04/2020 and follow-up radiographs 08/06/2020 at 12:17 available the time of this dictati on. FINDINGS: SUPPORT DEVICES: ET tube with its tip at the level of T1. HEART / MEDIASTINUM: The left cardiac border is obscured secondary to opacification of the left lung field. LUNGS / PLEURA: Complete whiteout of the left lung field. Patchy hazy opacities in the right perihila r region and lung base. No pneumothorax. ADDITIONAL FINDINGS: No significant additional findings. IMPRESSION: 1. Complete opacification of the left lung field, consider possible mucous plugging and atelectasis. These findings have improved post bronchoscopy on radiographs available at the time of this dictation . 2. ET tube with its tip at the level of T1. Advancement approximately 5 cm is recommended. There has been interval advancement on the follow-up radiographs available at time of this dictation. Signer Name: Tru Woodson MD Signed: 08/07/2020 8:59 AM Workstation Name: [id number]
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
--- NOTE | 2020-08-07 10:16 | Progress Note ---
Assessment and Plan - Patient Problems (1) Bradycardia Current Visit: Yes Status: Acute Plan to address problem: Currently, he is stable sinus rhythm. An echocardiogram this presentation showed well-preserved left ventricular systolic function with ejection fraction 50 to 55%. Subjective Date of service: 08/07/20 Principal diagnosis: Ac. encephalopathy; Ac. hypoxemic resp failure; Septic Shock; PNA; UTI; [place] Interval history: Currently, he is stable sinus rhythm on telemetry, rate 88. Objective Vital Signs Temp Pulse Pulse Pulse Resp Resp BP 08/07/20 09:30 86 28 H 186/84 08/07/20 09:16 88 28 H 186/84 08/07/20 09:00 83 28 H 186/84 08/07/20 08:46 90 28 H 178/76 08/07/20 08:30 83 28 H 178/76 08/07/20 08:16 73 28 H 178/76 08/07/20 08:00 76 83 28 H 29 H 178/76 08/07/20 07:46 79 28 H 189/68 08/07/20 07:30 79 28 H 08/07/20 07:16 88 28 H 189/68 08/07/20 07:08 97.9 F 08/07/20 07:00 84 28 H 189/68 08/07/20 06:46 79 28 H 188/71 08/07/20 06:34 97.6 F 08/07/20 06:30 80 28 H 188/71 08/07/20 06:16 80 28 H 188/71 08/07/20 06:00 87 28 H 188/71 08/07/20 05:46 83 28 H 191/70 08/07/20 05:30 88 24 191/70 08/07/20 05:16 83 28 H 191/70 08/07/20 05:00 83 28 H 191/70 08/07/20 04:46 82 28 H 08/07/20 04:30 82 26 H 08/07/20 04:16 84 28 H 08/07/20 04:00 86 87 28 H 193/72 08/07/20 03:46 81 28 H 186/73 08/07/20 03:30 90 28 H 186/73 08/07/20 03:23 84 86 28 H 186/73 08/07/20 03:16 83 28 H 186/73 08/07/20 03:00 81 23 186/73 08/07/20 02:46 91 H 28 H 197/73 08/07/20 02:30 84 28 H 197/73 08/07/20 02:16 82 28 H 197/73 08/07/20 02:00 89 28 H 197/73 08/07/20 01:46 85 28 H 187/82 08/07/20 01:30 90 28 H 187/82 08/07/20 01:16 85 28 H 187/82 08/07/20 01:00 88 28 H 187/82 08/07/20 00:46 99 H 28 H 188/79 08/07/20 00:30 86 28 H 188/79 08/07/20 00:16 93 H 28 H 188/79 08/07/20 00:02 97.6 F 08/07/20 00:00 88 87 28 H 188/79 08/06/20 23:46 91 H 28 H 185/74 08/06/20 23:30 90 28 H 185/74 08/06/20 23:16 91 H 28 H 185/74 08/06/20 23:00 93 H 28 H 185/74 08/06/20 22:46 94 H 28 H 188/78 08/06/20 22:30 90 28 H 188/78 08/06/20 22:16 91 H 28 H 188/78 08/06/20 22:02 87 28 H 188/78 08/06/20 22:00 90 28 H 188/78 08/06/20 21:46 90 28 H 186/78 08/06/20 21:30 92 H 28 H 186/78 08/06/20 21:16 91 H 28 H 186/78 08/06/20 21:00 86 28 H 186/78 08/06/20 20:46 89 28 H 176/76 08/06/20 20:30 91 H 28 H 176/76 08/06/20 20:16 89 28 H 176/76 08/06/20 20:00 87 86 28 H 176/76 08/06/20 19:53 97.5 F L 08/06/20 19:46 90 28 H 08/06/20 19:43 93 H 28 H 08/06/20 19:38 87 139/54 08/06/20 19:30 94 H 28 H 06/21/21 19:16 91 H 28 H 08/06/20 19:00 98 H 28 H 08/06/20 18:46 93 H 28 H 08/06/20 18:30 95 H 28 H 08/06/20 18:16 95 H 28 H 08/06/20 18:00 96 H 28 H 08/06/20 17:46 96 H 28 H 08/06/20 17:30 95 H 28 H 08/06/20 17:16 97 H 28 H 08/06/20 17:00 99 H 28 H 08/06/20 16:46 100 H 28 H 08/06/20 16:30 103 H 28 H 08/06/20 16:16 101 H 28 H 08/06/20 16:00 97.5 F L 103 H 20 08/06/20 15:46 102 H 28 H 08/06/20 15:30 103 H 28 H 08/06/20 15:20 103 H 139/60 08/06/20 15:16 103 H 28 H 08/06/20 15:00 105 H 28 H 08/06/20 14:46 105 H 28 H 08/06/20 14:30 106 H 28 H 08/06/20 14:16 109 H 28 H 08/06/20 14:00 103 H 28 H 08/06/20 13:55 108 H 28 H 08/06/20 13:46 103 H 28 H 08/06/20 13:30 104 H 28 H 08/06/20 13:15 102 H 28 H 166/73 08/06/20 13:01 103 H 28 H 166/73 08/06/20 12:45 104 H 28 H 166/73 08/06/20 12:31 105 H 28 H 166/73 08/06/20 12:15 106 H 28 H 166/73 08/06/20 12:11 97.9 F 08/06/20 12:01 107 H 28 H 166/73 08/06/20 12:00 107 H 20 08/06/20 11:45 107 H 15 166/73 08/06/20 11:31 89 20 166/73 08/06/20 11:15 95 H 22 166/73 08/06/20 11:12 92 H 145/55 08/06/20 11:01 97 H 22 166/73 08/06/20 10:45 99 H 22 166/73 08/06/20 10:31 91 H 20 166/73 08/06/20 10:18 90 136/50 08/06/20 10:15 90 21 166/73 Pulse Ox 08/07/20 09:30 99 08/07/20 09:16 97 08/07/20 09:00 97 08/07/20 08:46 96 08/07/20 08:30 97 08/07/20 08:16 94 08/07/20 08:00 97 08/07/20 07:46 98 08/07/20 07:30 98 08/07/20 07:16 99 08/07/20 07:08 08/07/20 07:00 98 08/07/20 06:46 97 08/07/20 06:34 08/07/20 06:30 97 08/07/20 06:16 97 08/07/20 06:00 97 08/07/20 05:46 97 08/07/20 05:30 97 08/07/20 05:16 97 08/07/20 05:00 97 08/07/20 04:46 97 08/07/20 04:30 99 08/07/20 04:16 99 08/07/20 04:00 99 08/07/20 03:46 99 08/07/20 03:30 100 08/07/20 03:23 99 08/07/20 03:16 99 08/07/20 03:00 100 08/07/20 02:46 100 08/07/20 02:30 100 08/07/20 02:16 100 08/07/20 02:00 100 08/07/20 01:46 100 08/07/20 01:30 100 08/07/20 01:16 100 08/07/20 01:00 100 08/07/20 00:46 100 08/07/20 00:30 100 08/07/20 00:16 100 08/07/20 00:02 08/07/20 00:00 100 08/06/20 23:46 100 08/06/20 23:30 100 08/06/20 23:16 100 08/06/20 23:00 100 08/06/20 22:46 100 08/06/20 22:30 100 08/06/20 22:16 99 08/06/20 22:02 100 08/06/20 22:00 99 08/06/20 21:46 100 08/06/20 21:30 100 08/06/20 21:16 99 08/06/20 21:00 99 08/06/20 20:46 99 08/06/20 20:30 99 08/06/20 20:16 99 08/06/20 20:00 100 08/06/20 19:53 08/06/20 19:46 99 08/06/20 19:43 08/06/20 19:38 100 08/06/20 19:30 100 08/06/20 19:16 100 08/06/20 19:00 100 08/06/20 18:46 100 08/06/20 18:30 100 08/06/20 18:16 100 08/06/20 18:00 100 08/06/20 17:46 100 08/06/20 17:30 100 08/06/20 17:16 100 08/06/20 17:00 100 08/06/20 16:46 99 08/06/20 16:30 100 08/06/20 16:16 99 08/06/20 16:00 99 08/06/20 15:46 100 08/06/20 15:30 100 08/06/20 15:20 100 08/06/20 15:16 100 08/06/20 15:00 100 08/06/20 14:46 100 08/06/20 14:30 100 08/06/20 14:16 100 08/06/20 14:00 100 08/06/20 13:55 08/06/20 13:46 100 08/06/20 13:30 100 08/06/20 13:15 100 08/06/20 13:01 100 08/06/20 12:45 100 08/06/20 12:31 100 08/06/20 12:15 100 08/06/20 12:11 08/06/20 12:01 100 08/06/20 12:00 99 08/06/20 11:45 99 08/06/20 11:31 96 08/06/20 11:15 99 08/06/20 11:12 99 08/06/20 11:01 100 08/06/20 10:45 97 08/06/20 10:31 99 08/06/20 10:18 08/06/20 10:15 98 - Physical Examination General: Other (On the vent) Cardiac: Positive: Reg Rate and Rhythm Neuro: Positive: Other (Patient intubated, on the vent, history of quadriplegia) - Labs and Meds Cardiac Enzymes 08/07/20 Range/Units 04:05 AST 54 H (5-40) units/L CBC 08/06/20 08/07/20 Range/Units Unknown 04:05 WBC 13.0 H 10.8 (4.5-11.0) K/mm3 RBC 2.38 L 2.32 L (3.65-5.03) M/mm3 Hgb 7.1 L 7.1 L (11.8-15.2) gm/dl Hct 21.5 L 20.9 L (35.5-45.6) % Plt Count 142 143 (140-440) K/mm3 Comprehensive Metabolic Panel 08/07/20 Range/Units 04:05 Sodium 151 H (137-145) mmol/L Potassium 3.9 (3.6-5.0) mmol/L Chloride 114.3 H (98-107) mmol/L Carbon Dioxide 24 (22-30) mmol/L BUN 63 H (9-20) mg/dL Creatinine 1.1 (0.8-1.3) mg/dL Glucose 198 H (75-100) mg/dL Calcium 9.3 (8.4-10.2) mg/dL AST 54 H (5-40) units/L ALT 31 (7-56) units/L Alkaline Phosphatase 213 H (35-129) units/L Total Protein 6.1 L (6.3-8.2) g/dL Albumin 2.0 L (3.9-5) g/dL - Allied health notes Allied health notes reviewed: RT
[2020-08-07] MEDS ORDERED: hydrALAZINE 20 MG/1 ML INJ IV PRN (10:49)
[2020-08-07] MEDS: SENNOSIDES/DOCUSATE SODIUM 8.6/50 MG TAB FEEDTUBE SCH ×2 (11:03→21:10)
[2020-08-07] MEDS: ENOXAPARIN 40 MG/0.4 ML INJ SUB-Q SCH (11:03)
[2020-08-07] MEDS: INSULIN GLARGINE 100 UNITS/ML SUB-Q SCH (11:04)
[2020-08-07] MEDS: amLODIPine 5 MG TAB PO SCH (11:04)
[2020-08-07] MEDS: ASCORBIC ACID 500 MG TAB PO SCH ×2 (11:04→21:10)
[2020-08-07] MEDS: FAMOTIDINE 20 MG TAB PO SCH ×2 (11:04→21:10)
[2020-08-07] MEDS: ZINC SULFATE 220 MG CAP PO SCH ×2 (11:05→21:10)
--- NOTE | 2020-08-07 11:27 | Progress Note ---
Assessment and Plan Acute possibly on chronic toxic metabolic encephalopathy Acute hypoxemic respiratory failure on MVS Severe sepsis with shock, presumably secondary to aspiration pneumonia Recent upper ext DVT (06/06) Aspiration pneumonia, bilateral Urinary tract infection History of quadriplegia Leukocytosis Anemia that is microcytic Coagulopathy. INR 2.17 at presentation Mild hypokalemia Acute kidney injury Metabolic lactic acidosis Non-ST elevation myocardial infarction Adult failure to thrive Moderate to severe protein calorie malnutrition - reduced set rate to 12/min - repeat ABG in 2 hours - discontinue mucomyst in 48-72 hours - add scopolamine patch for orpharyngeal secretions - place 100 janelle's/hr Fentanyl patch X 1 - stop IV Fentanyl drip - prn Dilaudid for breakthrough pain - complete Diflucan dosing re: Jennyfer Albicans bacteremia - continue care as below otherwise; - prn Levophed for target MAP > 65 mmHg - continue to wean supplemental oxygen for target O2 sat's > 90% acutely - VAP bundle addressed - continue lung protective strategies - continue bronchodilators with pulmonary hygiene per RT - wean per pulmonary driven protocols otherwise - avoid nephrotoxins, renally dose all medications - continue to avoid benzodiazepine's, reduce the possibility of delirium - complete AB's per ID rec's - prn analgesia per CPOT score - Maintenance of sleep-wake cycle, avoid delirium - continue enteral nutritional support at goal rate as tolerated - G.I. & VTE prophylaxis - PT/OT/ROM exercises - continue mobility protocols for pressure ulcer prophylaxis - Monitor hemodynamics closely - continue other care per attending / other consultants - discharge planning ongoing concurrently COVID SPECIFIC INTERVENTIONS: - COVID test result negative .... Re-evaluate in am & prn CONDITION: CRITICAL PROGNOSIS: GUARDED CODE STATUS: FULL CODE The high probability of a clinically significant, sudden or life-threatening deterioration of the [respiratory, cardiovascular & neurologic] system(s) re quired my full and direct attention, intervention and personal management. The aggregate critical care time was [32] minutes without overlap. Time includes spent on; [x] Data Review and interpretation [x] Patient assessment and monitoring of vital signs [x] Documentation [x] Medication orders and management Subjective Date of service: 08/07/20 Principal diagnosis: Ac. encephalopathy; Ac. hypoxemic resp failure; Septic Shock; PNA; UTI; JEFFERSON Interval history: Patient is seen today for: Acute encephalopathy; Acute hypoxemic respiratory failure; Septic Shock; Aspiration pneumonia; UTI; quadriplegia; JEFFERSON Seen and examined at bedside; 24hour events reviewed; nursing and respiratory care staff consulted; no adverse overnight events reported to me; resting in bed; s/p bronch with airway clearance yesterday; doing better; also ETT change out to #8; denies acute pain; no N/V/F/C; more coherent overall; no gross bleeding Objective Vital Signs - 12hr 08/06/20 08/06/20 08/07/20 23:30 23:46 00:00 Temperature Pulse Rate 90 91 H 88 Pulse Rate [ Anterior Bilateral Throughout] Pulse Rate [ 87 From Monitor] Respiratory 28 H 28 H 28 H Rate Respiratory Rate [Anterior Bilateral Throughout] Blood Pressure 185/74 185/74 188/79 O2 Sat by Pulse 100 100 100 Oximetry 08/07/20 08/07/20 08/07/20 00:02 00:16 00:30 Temperature 97.6 F Pulse Rate 93 H 86 Pulse Rate [ Anterior Bilateral Throughout] Pulse Rate [ From Monitor] Respiratory 28 H 28 H Rate Respiratory Rate [Anterior Bilateral Throughout] Blood Pressure 188/79 188/79 O2 Sat by Pulse 100 100 Oximetry 08/07/20 08/07/20 08/07/20 00:46 01:00 01:16 Temperature Pulse Rate 99 H 88 85 Pulse Rate [ Anterior Bilateral Throughout] Pulse Rate [ From Monitor] Respiratory 28 H 28 H 28 H Rate Respiratory Rate [Anterior Bilateral Throughout] Blood Pressure 188/79 187/82 187/82 O2 Sat by Pulse 100 100 100 Oximetry 08/07/20 08/07/20 08/07/20 01:30 01:46 02:00 Temperature Pulse Rate 90 85 89 Pulse Rate [ Anterior Bilateral Throughout] Pulse Rate [ From Monitor] Respiratory 28 H 28 H 28 H Rate Respiratory Rate [Anterior Bilateral Throughout] Blood Pressure 187/82 187/82 197/73 O2 Sat by Pulse 100 100 100 Oximetry 08/07/20 08/07/20 08/07/20 02:16 02:30 02:46 Temperature Pulse Rate 82 84 91 H Pulse Rate [ Anterior Bilateral Throughout] Pulse Rate [ From Monitor] Respiratory 28 H 28 H 28 H Rate Respiratory Rate [Anterior Bilateral Throughout] Blood Pressure 197/73 197/73 197/73 O2 Sat by Pulse 100 100 100 Oximetry 08/07/20 08/07/20 08/07/20 03:00 03:16 03:23 Temperature Pulse Rate 81 83 84 Pulse Rate [ 86 Anterior Bilateral Throughout] Pulse Rate [ From Monitor] Respiratory 23 28 H Rate Respiratory 28 H Rate [Anterior Bilateral Throughout] Blood Pressure 186/73 186/73 186/73 O2 Sat by Pulse 100 99 99 Oximetry 08/07/20 08/07/20 08/07/20 03:30 03:46 04:00 Temperature Pulse Rate 90 81 86 Pulse Rate [ Anterior Bilateral Throughout] Pulse Rate [ 87 From Monitor] Respiratory 28 H 28 H 28 H Rate Respiratory Rate [Anterior Bilateral Throughout] Blood Pressure 186/73 186/73 193/72 O2 Sat by Pulse 100 99 99 Oximetry 08/07/20 08/07/20 08/07/20 04:16 04:30 04:46 Temperature Pulse Rate 84 82 82 Pulse Rate [ Anterior Bilateral Throughout] Pulse Rate [ From Monitor] Respiratory 28 H 26 H 28 H Rate Respiratory Rate [Anterior Bilateral Throughout] Blood Pressure O2 Sat by Pulse 99 99 97 Oximetry 08/07/20 08/07/20 08/07/20 05:00 05:16 05:30 Temperature Pulse Rate 83 83 88 Pulse Rate [ Anterior Bilateral Throughout] Pulse Rate [ From Monitor] Respiratory 28 H 28 H 24 Rate Respiratory Rate [Anterior Bilateral Throughout] Blood Pressure 191/70 191/70 191/70 O2 Sat by Pulse 97 97 97 Oximetry 08/07/20 08/07/20 08/07/20 05:46 06:00 06:16 Temperature Pulse Rate 83 87 80 Pulse Rate [ Anterior Bilateral Throughout] Pulse Rate [ From Monitor] Respiratory 28 H 28 H 28 H Rate Respiratory Rate [Anterior Bilateral Throughout] Blood Pressure 191/70 188/71 188/71 O2 Sat by Pulse 97 97 97 Oximetry 08/07/20 08/07/20 08/07/20 06:30 06:34 06:46 Temperature 97.6 F Pulse Rate 80 79 Pulse Rate [ Anterior Bilateral Throughout] Pulse Rate [ From Monitor] Respiratory 28 H 28 H Rate Respiratory Rate [Anterior Bilateral Throughout] Blood Pressure 188/71 188/71 O2 Sat by Pulse 97 97 Oximetry 08/07/20 08/07/20 08/07/20 07:00 07:08 07:16 Temperature 97.9 F Pulse Rate 84 88 Pulse Rate [ Anterior Bilateral Throughout] Pulse Rate [ From Monitor] Respiratory 28 H 28 H Rate Respiratory Rate [Anterior Bilateral Throughout] Blood Pressure 189/68 189/68 O2 Sat by Pulse 98 99 Oximetry 08/07/20 08/07/20 08/07/20 07:30 07:46 08:00 Temperature Pulse Rate 79 79 76 Pulse Rate [ 83 Anterior Bilateral Throughout] Pulse Rate [ From Monitor] Respiratory 28 H 28 H 28 H Rate Respiratory 29 H Rate [Anterior Bilateral Throughout] Blood Pressure 189/68 178/76 O2 Sat by Pulse 98 98 97 Oximetry 08/07/20 08/07/20 08/07/20 08:16 08:30 08:46 Temperature Pulse Rate 73 83 90 Pulse Rate [ Anterior Bilateral Throughout] Pulse Rate [ From Monitor] Respiratory 28 H 28 H 28 H Rate Respiratory Rate [Anterior Bilateral Throughout] Blood Pressure 178/76 178/76 178/76 O2 Sat by Pulse 94 97 96 Oximetry 08/07/20 08/07/20 08/07/20 09:00 09:16 09:30 Temperature Pulse Rate 83 88 86 Pulse Rate [ Anterior Bilateral Throughout] Pulse Rate [ From Monitor] Respiratory 28 H 28 H 28 H Rate Respiratory Rate [Anterior Bilateral Throughout] Blood Pressure 186/84 186/84 186/84 O2 Sat by Pulse 97 97 99 Oximetry 08/07/20 11:04 Temperature Pulse Rate 85 Pulse Rate [ Anterior Bilateral Throughout] Pulse Rate [ From Monitor] Respiratory Rate Respiratory Rate [Anterior Bilateral Throughout] Blood Pressure 146/66 O2 Sat by Pulse Oximetry Constitutional: no acute distress, other ( chronically ill looking male with m ildly increased respiratory effort at rest on MVS) Eyes: non-icteric ENT: oropharynx dry, other (ETT 24 cm KEVIN) Neck: supple, no lymphadenopathy, no JVD Effort: mildly labored Ascultation: Bilateral: diminished breath sounds, rhonchi Percussion: Bilateral: not dull Cardiovascular: regular rate and rhythm, other (S1,S2) Gastrointestinal: normoactive bowel sounds, soft, non-tender, non-distended Integumentary: rash, decubitus ulcer (sacral (POA)) Extremities: no cyanosis, pulses normal, edema (lower extremities and bilatral upper extremity) Neurologic: pupils equal and round, unable to assess, other (quadriplegic, bitin g on ETT) Psychiatric: mood appropriate, affect normal CBC and BMP: 08/07/20 04:05 08/07/20 04:05 ABG, PT/INR, D-dimer: ABG ABG pH 7.389 (7.320-7.450) 08/07/20 04:00 POC ABG pCO2 38.8 mmHg (32.0-48.0) 08/07/20 04:00 ABG pCO2 46.4 mm Hg 08/02/20 03:50 POC ABG pO2 150.6 mmHg (83-108) H 08/07/20 04:00 ABG pO2 91.5 mm Hg (80.0-90.0) H 08/02/20 03:50 POC ABG HCO3 22.9 08/07/20 04:00 ABG O2 Saturation 99.2 (0-100) 08/07/20 04:00 PT/INR, D-dimer PT 24.7 Sec. (12.2-14.9) H 07/28/20 08:48 INR 2.17 (0.87-1.13) H 07/28/20 08:48 Abnormal lab findings: Abnormal Labs 07/28/20 07/28/20 07/28/20 08:48 08:48 08:48 WBC 17.0 H RBC 2.77 L Hgb 8.2 L Hct 26.5 L MCV 96 H MCH MCHC 31 L RDW 16.2 H Plt Count Seg Neuts % (Manual) Lymphocytes % (Manual) Seg Neutrophils # Man Lymphocytes # (Manual) PT 24.7 H INR 2.17 H ABG pH POC ABG pCO2 POC ABG pO2 ABG pO2 ABG Hemoglobin ABG Oxyhemoglobin ABG Sodium ABG Potassium ABG Chloride ABG Glucose Carboxyhemoglobin Sodium 135 L Potassium 3.5 L Chloride 97.6 L Carbon Dioxide BUN 44 H Creatinine 1.6 H Glucose 431 H POC Glucose Hemoglobin A1c Lactic Acid Calcium 7.9 L Ionized Calcium Phosphorus AST 81 H ALT Alkaline Phosphatase Ammonia Total Creatine Kinase 486 H Troponin T 0.115 H* C-Reactive Protein Total Protein 5.6 L Albumin 2.6 L Triglycerides LDL Cholesterol Direct 44 L HDL Cholesterol 26 L Arterial Blood Glucose Arterial Blood Ionized Calcium Urine WBC (Auto) Salicylates Crossmatch 07/28/20 07/28/20 07/28/20 08:48 09:44 09:44 WBC RBC Hgb Hct MCV MCH MCHC RDW Plt Count Seg Neuts % (Manual) Lymphocytes % (Manual) Seg Neutrophils # Man Lymphocytes # (Manual) PT INR ABG pH POC ABG pCO2 POC ABG pO2 ABG pO2 ABG Hemoglobin ABG Oxyhemoglobin ABG Sodium ABG Potassium ABG Chloride ABG Glucose Carboxyhemoglobin Sodium Potassium Chloride Carbon Dioxide BUN Creatinine Glucose POC Glucose Hemoglobin A1c Lactic Acid 3.80 H* Calcium Ionized Calcium Phosphorus AST ALT Alkaline Phosphatase Ammonia 63.0 H Total Creatine Kinase Troponin T C-Reactive Protein Total Protein Albumin Triglycerides LDL Cholesterol Direct HDL Cholesterol Arterial Blood Glucose Arterial Blood Ionized Calcium Urine WBC (Auto) Salicylates < 0.3 L Crossmatch 07/28/20 07/28/20 07/28/20 10:18 14:38 15:58 WBC RBC Hgb Hct MCV MCH MCHC RDW Plt Count Seg Neuts % (Manual) Lymphocytes % (Manual) Seg Neutrophils # Man Lymphocytes # (Manual) PT INR ABG pH POC ABG pCO2 POC ABG pO2 ABG pO2 78.0 L ABG Hemoglobin 7.6 L ABG Oxyhemoglobin ABG Sodium ABG Potassium ABG Chloride ABG Glucose Carboxyhemoglobin Sodium Potassium Chloride Carbon Dioxide BUN Creatinine Glucose POC Glucose 265 H Hemoglobin A1c Lactic Acid 3.90 H* Calcium Ionized Calcium Phosphorus AST ALT Alkaline Phosphatase Ammonia Total Creatine Kinase Troponin T C-Reactive Protein Total Protein Albumin Triglycerides LDL Cholesterol Direct HDL Cholesterol Arterial Blood Glucose Arterial Blood Ionized Calcium Urine WBC (Auto) Salicylates Crossmatch 07/28/20 07/28/20 07/28/20 19:50 21:00 Unknown WBC RBC Hgb Hct MCV MCH MCHC RDW Plt Count Seg Neuts % (Manual) Lymphocytes % (Manual) Seg Neutrophils # Man Lymphocytes # (Manual) PT INR ABG pH 7.107 L POC ABG pCO2 65.6 H POC ABG pO2 ABG pO2 ABG Hemoglobin 9.9 L ABG Oxyhemoglobin ABG Sodium ABG Potassium ABG Chloride 108.0 H ABG Glucose 299 H Carboxyhemoglobin 0.2 L Sodium Potassium Chloride Carbon Dioxide BUN Creatinine Glucose POC Glucose Hemoglobin A1c Lactic Acid Calcium Ionized Calcium Phosphorus 5.40 H AST ALT Alkaline Phosphatase Ammonia Total Creatine Kinase Troponin T C-Reactive Protein 9.00 H Total Protein Albumin Triglycerides LDL Cholesterol Direct HDL Cholesterol Arterial Blood Glucose 299 H Arterial Blood Ionized Calcium 4.2 L Urine WBC (Auto) > 182.0 H Salicylates Crossmatch 07/29/20 07/29/20 07/29/20 04:02 13:00 17:13 WBC RBC Hgb Hct MCV MCH MCHC RDW Plt Count Seg Neuts % (Manual) Lymphocytes % (Manual) Seg Neutrophils # Man Lymphocytes # (Manual) PT INR ABG pH 7.212 L POC ABG pCO2 52.5 H POC ABG pO2 128.3 H ABG pO2 ABG Hemoglobin 10.5 L ABG Oxyhemoglobin ABG Sodium ABG Potassium ABG Chloride 108.0 H ABG Glucose 239 H Carboxyhemoglobin Sodium Potassium Chloride Carbon Dioxide BUN Creatinine Glucose POC Glucose 212 H 257 H Hemoglobin A1c Lactic Acid Calcium Ionized Calcium Phosphorus AST ALT Alkaline Phosphatase Ammonia Total Creatine Kinase Troponin T C-Reactive Protein Total Protein Albumin Triglycerides LDL Cholesterol Direct HDL Cholesterol Arterial Blood Glucose 239 H Arterial Blood Ionized Calcium 4.0 L Urine WBC (Auto) Salicylates Crossmatch 07/29/20 07/29/20 07/29/20 21:00 23:20 Unknown WBC RBC 3.05 L Hgb 9.7 L Hct 28.6 L MCV MCH MCHC RDW 16.1 H Plt Count Seg Neuts % (Manual) 75.0 H Lymphocytes % (Manual) 2.0 L Seg Neutrophils # Man Lymphocytes # (Manual) 0.2 L PT INR ABG pH 7.286 L POC ABG pCO2 POC ABG pO2 ABG pO2 ABG Hemoglobin 9.1 L ABG Oxyhemoglobin ABG Sodium ABG Potassium ABG Chloride 109.0 H ABG Glucose 285 H Carboxyhemoglobin Sodium Potassium Chloride Carbon Dioxide BUN Creatinine Glucose POC Glucose 233 H Hemoglobin A1c Lactic Acid Calcium Ionized Calcium Phosphorus AST ALT Alkaline Phosphatase Ammonia Total Creatine Kinase Troponin T C-Reactive Protein Total Protein Albumin Triglycerides LDL Cholesterol Direct HDL Cholesterol Arterial Blood Glucose 285 H Arterial Blood Ionized Calcium 3.9 L Urine WBC (Auto) Salicylates Crossmatch 07/29/20 07/29/20 07/30/20 Unknown Unknown 05:30 WBC RBC Hgb Hct MCV MCH MCHC RDW Plt Count Seg Neuts % (Manual) Lymphocytes % (Manual) Seg Neutrophils # Man Lymphocytes # (Manual) PT INR ABG pH POC ABG pCO2 POC ABG pO2 ABG pO2 ABG Hemoglobin ABG Oxyhemoglobin ABG Sodium ABG Potassium ABG Chloride ABG Glucose Carboxyhemoglobin Sodium Potassium Chloride 108.4 H Carbon Dioxide 21 L BUN 41 H Creatinine Glucose 217 H POC Glucose 245 H Hemoglobin A1c Lactic Acid 2.70 H* Calcium 6.5 L D Ionized Calcium Phosphorus AST 104 H ALT 74 H Alkaline Phosphatase Ammonia Total Creatine Kinase Troponin T C-Reactive Protein Total Protein 5.1 L Albumin 2.4 L Triglycerides LDL Cholesterol Direct HDL Cholesterol Arterial Blood Glucose Arterial Blood Ionized Calcium Urine WBC (Auto) Salicylates Crossmatch 07/30/20 07/30/20 07/30/20 05:45 05:45 12:12 WBC RBC 2.50 L Hgb 7.8 L Hct 23.3 L MCV MCH MCHC RDW 16.4 H Plt Count Seg Neuts % (Manual) Lymphocytes % (Manual) Seg Neutrophils # Man Lymphocytes # (Manual) PT INR ABG pH POC ABG pCO2 POC ABG pO2 ABG pO2 ABG Hemoglobin ABG Oxyhemoglobin ABG Sodium ABG Potassium ABG Chloride ABG Glucose Carboxyhemoglobin Sodium Potassium Chloride 108.4 H Carbon Dioxide 21 L BUN 44 H Creatinine 1.4 H Glucose 279 H POC Glucose 243 H Hemoglobin A1c Lactic Acid Calcium 6.7 L Ionized Calcium Phosphorus AST 51 H ALT Alkaline Phosphatase Ammonia Total Creatine Kinase Troponin T C-Reactive Protein Total Protein 5.5 L Albumin 2.3 L Triglycerides LDL Cholesterol Direct HDL Cholesterol Arterial Blood Glucose Arterial Blood Ionized Calcium Urine WBC (Auto) Salicylates Crossmatch 07/30/20 07/30/20 07/30/20 15:50 17:20 19:01 WBC RBC Hgb Hct MCV MCH MCHC RDW Plt Count Seg Neuts % (Manual) Lymphocytes % (Manual) Seg Neutrophils # Man Lymphocytes # (Manual) PT INR ABG pH POC ABG pCO2 POC ABG pO2 147.2 H ABG pO2 ABG Hemoglobin 7.2 L ABG Oxyhemoglobin ABG Sodium ABG Potassium 3.3 L ABG Chloride 115.0 H ABG Glucose 269 H Carboxyhemoglobin 1.6 H Sodium Potassium Chloride Carbon Dioxide BUN Creatinine Glucose POC Glucose 260 H Hemoglobin A1c Lactic Acid Calcium Ionized Calcium 4.2 L Phosphorus AST ALT Alkaline Phosphatase Ammonia Total Creatine Kinase Troponin T C-Reactive Protein Total Protein Albumin Triglycerides LDL Cholesterol Direct HDL Cholesterol Arterial Blood Glucose 269 H Arterial Blood Ionized Calcium 3.5 L Urine WBC (Auto) Salicylates Crossmatch 07/30/20 07/31/20 07/31/20 23:16 04:04 04:47 WBC RBC Hgb Hct MCV MCH MCHC RDW Plt Count Seg Neuts % (Manual) Lymphocytes % (Manual) Seg Neutrophils # Man Lymphocytes # (Manual) PT INR ABG pH POC ABG pCO2 POC ABG pO2 ABG pO2 ABG Hemoglobin 7.6 L ABG Oxyhemoglobin ABG Sodium ABG Potassium 3.3 L ABG Chloride 113.0 H ABG Glucose 348 H Carboxyhemoglobin 0.4 L Sodium Potassium Chloride Carbon Dioxide BUN Creatinine Glucose POC Glucose 298 H 297 H Hemoglobin A1c Lactic Acid Calcium Ionized Calcium Phosphorus AST ALT Alkaline Phosphatase Ammonia Total Creatine Kinase Troponin T C-Reactive Protein Total Protein Albumin Triglycerides LDL Cholesterol Direct HDL Cholesterol Arterial Blood Glucose 348 H Arterial Blood Ionized Calcium 4.1 L Urine WBC (Auto) Salicylates Crossmatch 07/31/20 07/31/20 07/31/20 07:26 07:26 11:54 WBC RBC 2.29 L Hgb 7.2 L Hct 21.5 L MCV MCH MCHC RDW 16.7 H Plt Count Seg Neuts % (Manual) Lymphocytes % (Manual) Seg Neutrophils # Man Lymphocytes # (Manual) PT INR ABG pH POC ABG pCO2 POC ABG pO2 ABG pO2 ABG Hemoglobin ABG Oxyhemoglobin ABG Sodium ABG Potassium ABG Chloride ABG Glucose Carboxyhemoglobin Sodium Potassium 3.4 L Chloride 109.4 H Carbon Dioxide BUN 45 H Creatinine 1.4 H Glucose 304 H POC Glucose 302 H Hemoglobin A1c Lactic Acid Calcium 6.9 L Ionized Calcium Phosphorus AST ALT Alkaline Phosphatase Ammonia Total Creatine Kinase Troponin T C-Reactive Protein Total Protein Albumin Triglycerides LDL Cholesterol Direct HDL Cholesterol Arterial Blood Glucose Arterial Blood Ionized Calcium Urine WBC (Auto) Salicylates Crossmatch 07/31/20 08/01/20 08/01/20 21:27 03:09 04:30 WBC RBC 2.29 L Hgb 7.0 L Hct 20.7 L MCV MCH MCHC RDW 16.2 H Plt Count 125 L Seg Neuts % (Manual) Lymphocytes % (Manual) Seg Neutrophils # Man Lymphocytes # (Manual) PT INR ABG pH POC ABG pCO2 POC ABG pO2 ABG pO2 ABG Hemoglobin 7.4 L ABG Oxyhemoglobin ABG Sodium 146.9 H ABG Potassium 3.2 L ABG Chloride 116.0 H ABG Glucose 113 H Carboxyhemoglobin Sodium Potassium Chloride Carbon Dioxide BUN Creatinine Glucose POC Glucose 138 H Hemoglobin A1c Lactic Acid Calcium Ionized Calcium Phosphorus AST ALT Alkaline Phosphatase Ammonia Total Creatine Kinase Troponin T C-Reactive Protein Total Protein Albumin Triglycerides LDL Cholesterol Direct HDL Cholesterol Arterial Blood Glucose 113 H Arterial Blood Ionized Calcium 4.5 L Urine WBC (Auto) Salicylates Crossmatch 08/01/20 08/01/20 08/01/20 04:30 04:30 08:40 WBC RBC Hgb Hct MCV MCH MCHC RDW Plt Count Seg Neuts % (Manual) Lymphocytes % (Manual) Seg Neutrophils # Man Lymphocytes # (Manual) PT INR ABG pH POC ABG pCO2 POC ABG pO2 ABG pO2 ABG Hemoglobin ABG Oxyhemoglobin ABG Sodium ABG Potassium ABG Chloride ABG Glucose Carboxyhemoglobin Sodium 148 H Potassium 3.4 L Chloride 114.3 H Carbon Dioxide BUN 43 H Creatinine Glucose 109 H POC Glucose Hemoglobin A1c 8.8 H Lactic Acid Calcium 8.1 L D Ionized Calcium Phosphorus AST ALT Alkaline Phosphatase Ammonia Total Creatine Kinase Troponin T C-Reactive Protein Total Protein Albumin Triglycerides LDL Cholesterol Direct HDL Cholesterol Arterial Blood Glucose Arterial Blood Ionized Calcium Urine WBC (Auto) Salicylates Crossmatch See Detail 08/01/20 08/01/20 08/01/20 08:40 17:03 23:35 WBC RBC Hgb Hct MCV MCH MCHC RDW Plt Count Seg Neuts % (Manual) Lymphocytes % (Manual) Seg Neutrophils # Man Lymphocytes # (Manual) PT INR ABG pH POC ABG pCO2 POC ABG pO2 ABG pO2 ABG Hemoglobin ABG Oxyhemoglobin ABG Sodium ABG Potassium ABG Chloride ABG Glucose Carboxyhemoglobin Sodium Potassium Chloride Carbon Dioxide BUN Creatinine Glucose POC Glucose 129 H 172 H Hemoglobin A1c Lactic Acid Calcium Ionized Calcium Phosphorus 1.70 L AST ALT Alkaline Phosphatase Ammonia Total Creatine Kinase Troponin T C-Reactive Protein Total Protein Albumin Triglycerides LDL Cholesterol Direct HDL Cholesterol Arterial Blood Glucose Arterial Blood Ionized Calcium Urine WBC (Auto) Salicylates Crossmatch 08/02/20 08/02/20 08/02/20 03:50 05:46 10:54 WBC RBC Hgb Hct MCV MCH MCHC RDW Plt Count Seg Neuts % (Manual) Lymphocytes % (Manual) Seg Neutrophils # Man Lymphocytes # (Manual) PT INR ABG pH 7.333 L POC ABG pCO2 POC ABG pO2 ABG pO2 91.5 H ABG Hemoglobin 7.9 L ABG Oxyhemoglobin ABG Sodium ABG Potassium ABG Chloride ABG Glucose Carboxyhemoglobin Sodium Potassium Chloride Carbon Dioxide BUN Creatinine Glucose POC Glucose 161 H 228 H Hemoglobin A1c Lactic Acid Calcium Ionized Calcium Phosphorus AST ALT Alkaline Phosphatase Ammonia Total Creatine Kinase Troponin T C-Reactive Protein Total Protein Albumin Triglycerides LDL Cholesterol Direct HDL Cholesterol Arterial Blood Glucose Arterial Blood Ionized Calcium Urine WBC (Auto) Salicylates Crossmatch 08/02/20 08/02/20 08/02/20 17:20 23:13 Unknown WBC RBC 2.66 L Hgb 8.1 L Hct 23.9 L MCV MCH MCHC RDW 16.8 H Plt Count 110 L Seg Neuts % (Manual) Lymphocytes % (Manual) Seg Neutrophils # Man Lymphocytes # (Manual) PT INR ABG pH POC ABG pCO2 POC ABG pO2 ABG pO2 ABG Hemoglobin ABG Oxyhemoglobin ABG Sodium ABG Potassium ABG Chloride ABG Glucose Carboxyhemoglobin Sodium Potassium Chloride Carbon Dioxide BUN Creatinine Glucose POC Glucose 214 H 132 H Hemoglobin A1c Lactic Acid Calcium Ionized Calcium Phosphorus AST ALT Alkaline Phosphatase Ammonia Total Creatine Kinase Troponin T C-Reactive Protein Total Protein Albumin Triglycerides LDL Cholesterol Direct HDL Cholesterol Arterial Blood Glucose Arterial Blood Ionized Calcium Urine WBC (Auto) Salicylates Crossmatch 08/02/20 08/02/20 08/03/20 Unknown Unknown 02:59 WBC RBC Hgb Hct MCV MCH MCHC RDW Plt Count Seg Neuts % (Manual) Lymphocytes % (Manual) Seg Neutrophils # Man Lymphocytes # (Manual) PT INR ABG pH POC ABG pCO2 POC ABG pO2 ABG pO2 ABG Hemoglobin 8.1 L ABG Oxyhemoglobin ABG Sodium ABG Potassium ABG Chloride 113.0 H ABG Glucose 143 H Carboxyhemoglobin Sodium 150 H Potassium 3.5 L Chloride 115.9 H Carbon Dioxide BUN 42 H Creatinine Glucose 188 H POC Glucose Hemoglobin A1c Lactic Acid Calcium 7.8 L Ionized Calcium Phosphorus 2.30 L D AST ALT Alkaline Phosphatase Ammonia Total Creatine Kinase Troponin T C-Reactive Protein Total Protein Albumin Triglycerides LDL Cholesterol Direct HDL Cholesterol Arterial Blood Glucose 143 H Arterial Blood Ionized Calcium Urine WBC (Auto) Salicylates Crossmatch 08/03/20 08/03/20 08/03/20 04:16 04:16 05:12 WBC RBC 2.62 L Hgb 8.1 L Hct 24.1 L MCV MCH MCHC RDW 17.4 H Plt Count 118 L Seg Neuts % (Manual) Lymphocytes % (Manual) Seg Neutrophils # Man Lymphocytes # (Manual) PT INR ABG pH POC ABG pCO2 POC ABG pO2 ABG pO2 ABG Hemoglobin ABG Oxyhemoglobin ABG Sodium ABG Potassium ABG Chloride ABG Glucose Carboxyhemoglobin Sodium 148 H Potassium Chloride 114.5 H Carbon Dioxide BUN 47 H Creatinine Glucose 158 H POC Glucose 164 H Hemoglobin A1c Lactic Acid Calcium 8.1 L Ionized Calcium Phosphorus 2.30 L AST ALT Alkaline Phosphatase Ammonia Total Creatine Kinase Troponin T C-Reactive Protein Total Protein Albumin Triglycerides LDL Cholesterol Direct HDL Cholesterol Arterial Blood Glucose Arterial Blood Ionized Calcium Urine WBC (Auto) Salicylates Crossmatch 08/03/20 08/03/20 08/03/20 11:26 17:33 23:47 WBC RBC Hgb Hct MCV MCH MCHC RDW Plt Count Seg Neuts % (Manual) Lymphocytes % (Manual) Seg Neutrophils # Man Lymphocytes # (Manual) PT INR ABG pH POC ABG pCO2 POC ABG pO2 ABG pO2 ABG Hemoglobin ABG Oxyhemoglobin ABG Sodium ABG Potassium ABG Chloride ABG Glucose Carboxyhemoglobin Sodium Potassium Chloride Carbon Dioxide BUN Creatinine Glucose POC Glucose 190 H 235 H 194 H Hemoglobin A1c Lactic Acid Calcium Ionized Calcium Phosphorus AST ALT Alkaline Phosphatase Ammonia Total Creatine Kinase Troponin T C-Reactive Protein Total Protein Albumin Triglycerides LDL Cholesterol Direct HDL Cholesterol Arterial Blood Glucose Arterial Blood Ionized Calcium Urine WBC (Auto) Salicylates Crossmatch 08/04/20 08/04/20 08/04/20 03:00 03:00 04:14 WBC RBC Hgb Hct MCV MCH MCHC RDW Plt Count Seg Neuts % (Manual) Lymphocytes % (Manual) Seg Neutrophils # Man Lymphocytes # (Manual) PT INR ABG pH POC ABG pCO2 POC ABG pO2 79.5 L ABG pO2 ABG Hemoglobin 9.9 L ABG Oxyhemoglobin ABG Sodium ABG Potassium ABG Chloride 113.0 H ABG Glucose 227 H Carboxyhemoglobin 0.3 L Sodium Potassium Chloride 111.4 H Carbon Dioxide BUN 51 H Creatinine Glucose 218 H POC Glucose Hemoglobin A1c Lactic Acid Calcium Ionized Calcium Phosphorus AST ALT Alkaline Phosphatase Ammonia Total Creatine Kinase Troponin T C-Reactive Protein Total Protein Albumin Triglycerides 184 H LDL Cholesterol Direct HDL Cholesterol Arterial Blood Glucose 227 H Arterial Blood Ionized Calcium Urine WBC (Auto) Salicylates Crossmatch 08/04/20 08/04/20 08/04/20 05:17 11:52 11:53 WBC RBC Hgb Hct MCV MCH MCHC RDW Plt Count Seg Neuts % (Manual) Lymphocytes % (Manual) Seg Neutrophils # Man Lymphocytes # (Manual) PT INR ABG pH POC ABG pCO2 POC ABG pO2 ABG pO2 ABG Hemoglobin ABG Oxyhemoglobin ABG Sodium ABG Potassium ABG Chloride ABG Glucose Carboxyhemoglobin Sodium Potassium Chloride Carbon Dioxide BUN Creatinine Glucose POC Glucose 224 H 253 H 237 H Hemoglobin A1c Lactic Acid Calcium Ionized Calcium Phosphorus AST ALT Alkaline Phosphatase Ammonia Total Creatine Kinase Troponin T C-Reactive Protein Total Protein Albumin Triglycerides LDL Cholesterol Direct HDL Cholesterol Arterial Blood Glucose Arterial Blood Ionized Calcium Urine WBC (Auto) Salicylates Crossmatch 08/04/20 08/04/20 08/04/20 15:35 16:25 17:45 WBC 21.5 H RBC 2.10 L Hgb 7.3 L Hct 22.0 L MCV MCH 33 H MCHC 37 H RDW 17.2 H Plt Count 133 L Seg Neuts % (Manual) Lymphocytes % (Manual) Seg Neutrophils # Man Lymphocytes # (Manual) PT INR ABG pH POC ABG pCO2 POC ABG pO2 ABG pO2 ABG Hemoglobin ABG Oxyhemoglobin ABG Sodium ABG Potassium ABG Chloride ABG Glucose Carboxyhemoglobin Sodium Potassium Chloride Carbon Dioxide BUN Creatinine Glucose POC Glucose 230 H 218 H Hemoglobin A1c Lactic Acid Calcium Ionized Calcium Phosphorus AST ALT Alkaline Phosphatase Ammonia Total Creatine Kinase Troponin T C-Reactive Protein Total Protein Albumin Triglycerides LDL Cholesterol Direct HDL Cholesterol Arterial Blood Glucose Arterial Blood Ionized Calcium Urine WBC (Auto) Salicylates Crossmatch 08/04/20 08/05/20 08/05/20 23:11 03:28 05:25 WBC RBC Hgb Hct MCV MCH MCHC RDW Plt Count Seg Neuts % (Manual) Lymphocytes % (Manual) Seg Neutrophils # Man Lymphocytes # (Manual) PT INR ABG pH POC ABG pCO2 POC ABG pO2 82.1 L ABG pO2 ABG Hemoglobin 8.6 L ABG Oxyhemoglobin 93.7 L ABG Sodium ABG Potassium ABG Chloride 113.0 H ABG Glucose 205 H Carboxyhemoglobin Sodium Potassium Chloride Carbon Dioxide BUN Creatinine Glucose POC Glucose 198 H 213 H Hemoglobin A1c Lactic Acid Calcium Ionized Calcium Phosphorus AST ALT Alkaline Phosphatase Ammonia Total Creatine Kinase Troponin T C-Reactive Protein Total Protein Albumin Triglycerides LDL Cholesterol Direct HDL Cholesterol Arterial Blood Glucose 205 H Arterial Blood Ionized Calcium Urine WBC (Auto) Salicylates Crossmatch 08/05/20 08/05/20 08/05/20 08:48 08:48 10:55 WBC 14.3 H RBC 2.76 L Hgb 8.1 L Hct 24.8 L MCV MCH MCHC RDW 17.4 H Plt Count 138 L Seg Neuts % (Manual) 97.0 H Lymphocytes % (Manual) 1.0 L Seg Neutrophils # Man 13.9 H Lymphocytes # (Manual) 0.1 L PT INR ABG pH POC ABG pCO2 POC ABG pO2 158.7 H ABG pO2 ABG Hemoglobin 7.8 L ABG Oxyhemoglobin ABG Sodium ABG Potassium ABG Chloride 114.0 H ABG Glucose 242 H Carboxyhemoglobin Sodium 146 H Potassium Chloride 110.1 H Carbon Dioxide BUN 56 H Creatinine Glucose 219 H POC Glucose Hemoglobin A1c Lactic Acid Calcium Ionized Calcium Phosphorus AST ALT Alkaline Phosphatase 192 H Ammonia Total Creatine Kinase Troponin T C-Reactive Protein Total Protein 5.8 L Albumin 2.0 L Triglycerides LDL Cholesterol Direct HDL Cholesterol Arterial Blood Glucose 242 H Arterial Blood Ionized Calcium Urine WBC (Auto) Salicylates Crossmatch 08/05/20 08/05/20 08/05/20 11:12 11:30 17:08 WBC RBC Hgb Hct MCV MCH MCHC RDW Plt Count Seg Neuts % (Manual) Lymphocytes % (Manual) Seg Neutrophils # Man Lymphocytes # (Manual) PT INR ABG pH POC ABG pCO2 POC ABG pO2 147.5 H ABG pO2 ABG Hemoglobin 7.5 L ABG Oxyhemoglobin 98.1 H ABG Sodium ABG Potassium ABG Chloride 113.0 H ABG Glucose 248 H Carboxyhemoglobin Sodium Potassium Chloride Carbon Dioxide BUN Creatinine Glucose POC Glucose 238 H 239 H Hemoglobin A1c Lactic Acid Calcium Ionized Calcium Phosphorus AST ALT Alkaline Phosphatase Ammonia Total Creatine Kinase Troponin T C-Reactive Protein Total Protein Albumin Triglycerides LDL Cholesterol Direct HDL Cholesterol Arterial Blood Glucose 248 H Arterial Blood Ionized Calcium Urine WBC (Auto) Salicylates Crossmatch 08/05/20 08/05/20 08/06/20 23:17 Unknown 05:12 WBC RBC Hgb Hct MCV MCH MCHC RDW Plt Count Seg Neuts % (Manual) Lymphocytes % (Manual) Seg Neutrophils # Man Lymphocytes # (Manual) PT INR ABG pH POC ABG pCO2 POC ABG pO2 ABG pO2 ABG Hemoglobin ABG Oxyhemoglobin ABG Sodium ABG Potassium ABG Chloride ABG Glucose Carboxyhemoglobin Sodium Potassium Chloride 109.2 H Carbon Dioxide BUN 51 H Creatinine Glucose 229 H POC Glucose 200 H 145 H Hemoglobin A1c Lactic Acid Calcium Ionized Calcium Phosphorus AST ALT Alkaline Phosphatase Ammonia Total Creatine Kinase Troponin T C-Reactive Protein Total Protein Albumin Triglycerides LDL Cholesterol Direct HDL Cholesterol Arterial Blood Glucose Arterial Blood Ionized Calcium Urine WBC (Auto) Salicylates Crossmatch 08/06/20 08/06/20 08/06/20 05:21 10:00 11:28 WBC RBC Hgb Hct MCV MCH MCHC RDW Plt Count Seg Neuts % (Manual) Lymphocytes % (Manual) Seg Neutrophils # Man Lymphocytes # (Manual) PT INR ABG pH 7.301 L 7.308 L POC ABG pCO2 49.5 H 49.1 H POC ABG pO2 178.4 H ABG pO2 ABG Hemoglobin 7.5 L 7.1 L ABG Oxyhemoglobin 98.8 H ABG Sodium ABG Potassium ABG Chloride 112.0 H 112.0 H ABG Glucose 149 H 162 H Carboxyhemoglobin Sodium Potassium Chloride Carbon Dioxide BUN Creatinine Glucose POC Glucose 158 H Hemoglobin A1c Lactic Acid Calcium Ionized Calcium Phosphorus AST ALT Alkaline Phosphatase Ammonia Total Creatine Kinase Troponin T C-Reactive Protein Total Protein Albumin Triglycerides LDL Cholesterol Direct HDL Cholesterol Arterial Blood Glucose 149 H 162 H Arterial Blood Ionized Calcium Urine WBC (Auto) Salicylates Crossmatch 08/06/20 08/06/20 08/06/20 17:42 23:56 Unknown WBC 13.0 H RBC 2.38 L Hgb 7.1 L Hct 21.5 L MCV MCH MCHC RDW 17.6 H Plt Count Seg Neuts % (Manual) Lymphocytes % (Manual) Seg Neutrophils # Man Lymphocytes # (Manual) PT INR ABG pH POC ABG pCO2 POC ABG pO2 ABG pO2 ABG Hemoglobin ABG Oxyhemoglobin ABG Sodium ABG Potassium ABG Chloride ABG Glucose Carboxyhemoglobin Sodium Potassium Chloride Carbon Dioxide BUN Creatinine Glucose POC Glucose 179 H 259 H Hemoglobin A1c Lactic Acid Calcium Ionized Calcium Phosphorus AST ALT Alkaline Phosphatase Ammonia Total Creatine Kinase Troponin T C-Reactive Protein Total Protein Albumin Triglycerides LDL Cholesterol Direct HDL Cholesterol Arterial Blood Glucose Arterial Blood Ionized Calcium Urine WBC (Auto) Salicylates Crossmatch 08/07/20 08/07/20 08/07/20 04:00 04:05 04:05 WBC RBC 2.32 L Hgb 7.1 L Hct 20.9 L MCV MCH MCHC RDW 17.9 H Plt Count Seg Neuts % (Manual) Lymphocytes % (Manual) Seg Neutrophils # Man Lymphocytes # (Manual) PT INR ABG pH POC ABG pCO2 POC ABG pO2 150.6 H ABG pO2 ABG Hemoglobin 8.0 L ABG Oxyhemoglobin 98.4 H ABG Sodium 146.7 H ABG Potassium ABG Chloride 114.0 H ABG Glucose 201 H Carboxyhemoglobin Sodium 151 H Potassium Chloride 114.3 H Carbon Dioxide BUN 63 H Creatinine Glucose 198 H POC Glucose Hemoglobin A1c Lactic Acid Calcium Ionized Calcium Phosphorus AST 54 H ALT Alkaline Phosphatase 213 H Ammonia Total Creatine Kinase Troponin T C-Reactive Protein Total Protein 6.1 L Albumin 2.0 L Triglycerides LDL Cholesterol Direct HDL Cholesterol Arterial Blood Glucose 201 H Arterial Blood Ionized Calcium Urine WBC (Auto) Salicylates Crossmatch 08/07/20 05:34 WBC RBC Hgb Hct MCV MCH MCHC RDW Plt Count Seg Neuts % (Manual) Lymphocytes % (Manual) Seg Neutrophils # Man Lymphocytes # (Manual) PT INR ABG pH POC ABG pCO2 POC ABG pO2 ABG pO2 ABG Hemoglobin ABG Oxyhemoglobin ABG Sodium ABG Potassium ABG Chloride ABG Glucose Carboxyhemoglobin Sodium Potassium Chloride Carbon Dioxide BUN Creatinine Glucose POC Glucose 160 H Hemoglobin A1c Lactic Acid Calcium Ionized Calcium Phosphorus AST ALT Alkaline Phosphatase Ammonia Total Creatine Kinase Troponin T C-Reactive Protein Total Protein Albumin Triglycerides LDL Cholesterol Direct HDL Cholesterol Arterial Blood Glucose Arterial Blood Ionized Calcium Urine WBC (Auto) Salicylates Crossmatch Chest x-ray: image reviewed (Left lung re-expansion) Allied health notes reviewed: nursing
[2020-08-07] MEDS: FREE WATER PO SCH ×4 (11:43→22:36)
--- NOTE | 2020-08-07 12:39 | Progress Note ---
Assessment and Plan Cultures: 07/28/2020 blood culture: C albicans 07/28/2020 urine culture: No growth COVID PCR: negative 07/31/2020 blood culture: Coag negative staph in 1 of 4 bottles (contaminant) 08/02/2020 blood culture: No growth 08/06/2020 resp culture: in process A/P: 69-year-old snf resident with quadriplegia, spinal cord injury, was brought in due to fever and sepsis: #Septic shock: Resolved likely due to candidemia +/-pneumonia. #Candidemia: Repeat blood culture no growth. Unclear source. ?IV line. Transthoracic echo without vegetation. #Pneumonia: CT chest showed patchy airspace disease suggestive of possible aspiration. Chest x-ray with left lung whiteout, got bronch with suctioning of mucous plug. #UTI with chronic indwelling catheter #Acute hypoxic respiratory failure: On mechanical ventilation. #Transaminitis: Likely sepsis/shock related. Improved. #Sacral decubitus ulcer: Does not appear infected. Continue wound care. Recs: -Continue fluconazole 400 mg IV once a day, complete 14 days from clearance of candidemia (end date: 08/14/2020) Dominga Simmons MD, FACP [facility] ([facility] O: [phone] F: [phone] Subjective Date of service: 08/07/20 Principal diagnosis: Ac. encephalopathy; Ac. hypoxemic resp failure; Septic Shock; PNA; UTI; [place] Interval history: No fever. Remains on the vent. Objective - Exam Narrative Exam: Physical Exam: Constitutional: sedated, intubated, on the vent Head, Ears, Nose: Normocephalic, atraumatic. External ears, nose normal Eyes: Conjunctivae/corneas clear. No icterus. No ptosis. Neck: intubated Oral: intubated Cardiovascular: S1, S2 + Respiratory: AE fair bilaterally and equal GI: Soft, bowel sounds + Musculoskeletal: Bilateral pedal edema Skin: No rash or abscess Hem/Lymphatic: No palpable cervical or supraclavicular nodes. No lymphangitis Psych: no agitation Neurological: sedated, intubated, on the vent, exam limited - Constitutional Vitals: Vital Signs Temp Pulse Resp BP Pulse Ox 97.8 F 87 5 L 156/65 96 08/07/20 11:58 08/07/20 12:15 08/07/20 12:15 08/07/20 12:15 08/07/20 12:15 Temperature -Last 24 Hours Temperature 97.8 F Temperature 97.9 F Temperature 97.6 F Temperature 97.6 F Temperature 97.5 F Temperature 97.5 F - Labs CBC & Chem 7: 08/07/20 04:05 08/07/20 04:05 Labs: Abnormal lab results 08/06/20 08/06/20 08/06/20 Range/Units 11:28 17:42 23:56 WBC (4.5-11.0) K/mm3 RBC (3.65-5.03) M/mm3 Hgb (11.8-15.2) gm/dl Hct (35.5-45.6) % RDW (13.2-15.2) % POC ABG pO2 (83-108) mmHg ABG Hemoglobin (12.0-17.5) ABG Oxyhemoglobin (94-98) ABG Sodium (136.0-145.0) mmol/L ABG Chloride (98-107) mmol/L ABG Glucose (65-95) mg/dL Sodium (137-145) mmol/L Chloride (98-107) mmol/L BUN (9-20) mg/dL Glucose (75-100) mg/dL POC Glucose 158 H 179 H 259 H (70-105) mg/dL AST (5-40) units/L Alkaline Phosphatase (35-129) units/L Total Protein (6.3-8.2) g/dL Albumin (3.9-5) g/dL Arterial Blood Glucose (65-95) mg/dL 08/06/20 08/07/20 08/07/20 Range/Units Unknown 04:00 04:05 WBC 13.0 H (4.5-11.0) K/mm3 RBC 2.38 L 2.32 L (3.65-5.03) M/mm3 Hgb 7.1 L 7.1 L (11.8-15.2) gm/dl Hct 21.5 L 20.9 L (35.5-45.6) % RDW 17.6 H 17.9 H (13.2-15.2) % POC ABG pO2 150.6 H (83-108) mmHg ABG Hemoglobin 8.0 L (12.0-17.5) ABG Oxyhemoglobin 98.4 H (94-98) ABG Sodium 146.7 H (136.0-145.0) mmol/L ABG Chloride 114.0 H (98-107) mmol/L ABG Glucose 201 H (65-95) mg/dL Sodium (137-145) mmol/L Chloride (98-107) mmol/L BUN (9-20) mg/dL Glucose (75-100) mg/dL POC Glucose (70-105) mg/dL AST (5-40) units/L Alkaline Phosphatase (35-129) units/L Total Protein (6.3-8.2) g/dL Albumin (3.9-5) g/dL Arterial Blood Glucose 201 H (65-95) mg/dL 08/07/20 08/07/20 Range/Units 04:05 05:34 WBC (4.5-11.0) K/mm3 RBC (3.65-5.03) M/mm3 Hgb (11.8-15.2) gm/dl Hct (35.5-45.6) % RDW (13.2-15.2) % POC ABG pO2 (83-108) mmHg ABG Hemoglobin (12.0-17.5) ABG Oxyhemoglobin (94-98) ABG Sodium (136.0-145.0) mmol/L ABG Chloride (98-107) mmol/L ABG Glucose (65-95) mg/dL Sodium 151 H (137-145) mmol/L Chloride 114.3 H (98-107) mmol/L BUN 63 H (9-20) mg/dL Glucose 198 H (75-100) mg/dL POC Glucose 160 H (70-105) mg/dL AST 54 H (5-40) units/L Alkaline Phosphatase 213 H (35-129) units/L Total Protein 6.1 L (6.3-8.2) g/dL Albumin 2.0 L (3.9-5) g/dL Arterial Blood Glucose (65-95) mg/dL
[2020-08-07] MEDS: HYDROmorphone 1 MG/1 ML INJ IV PRN ×2 (12:48→17:17)
[2020-08-07] MEDS ORDERED: FENTANYL 100 MCG/HR TD ONE (13:00)
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
[2020-08-07 14:57] LABS: ABG Base Excess -1.6 mmol/L (-2.0-3.0); ABG HCO3 23.9 mmol/L (20.0-26.0); ABG Methemoglobin 0.3 % (0.0-1.5); ABG Oxygen Saturation 86.7 % (95.0-99.0); ABG PCO2 44.2 mm Hg; ABG PH 7.351 pH Units (7.350-7.450); ABG PO2 62.9 mm Hg (80.0-90.0)
[2020-08-07] MEDS: SCOPOLAMINE TRANSDERMAL PATCH 72 HR TD SCH (15:05)
[2020-08-07] MEDS: FLUCONAZOLE 400 MG 200 ML IV SCH (15:06)
[2020-08-08] MEDS: INSULIN LISPRO 100 UNIT/ML SUB-Q SCH ×4 (00:51→18:47)
[2020-08-08] MEDS: ACETYLCYSTEINE 20% 200 MG/1 ML *FOR INHALATION USE INHALATION SCH ×4 (02:42→20:11)
[2020-08-08] MEDS: ALBUTEROL 2.5 MG/3 ML NEBU IH SCH ×4 (02:42→20:12)
[2020-08-08] MEDS: HYDROmorphone 1 MG/1 ML INJ IV PRN ×3 (03:31→19:27)
[2020-08-08] MEDS: FREE WATER PO SCH ×5 (03:51→19:27)
--- NOTE | 2020-08-08 08:50 | XRay Report ---
CHEST 1 VIEW INDICATION / CLINICAL INFORMATION: Post bronch for atelectasis. COMPARISON: 08/07/2020 FINDINGS: SUPPORT DEVICES: Endotracheal tube HEART / MEDIASTINUM: No significant abnormality. LUNGS / PLEURA: Bilateral airspace disease No pneumothorax. ADDITIONAL FINDINGS: No significant additional findings. IMPRESSION: Mild improvement in the bilateral airspace disease from yesterday Signer Name: Maik Vincent MD FACR Signed: 08/08/2020 8:46 AM Workstation Name: [id number]
--- NOTE | 2020-08-08 09:14 | Progress Note ---
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 Protein (gm) 117 Fluid (mL) 1,265 Add Supplement/Snack (indicate name/kcal Reji BID /protein ) Provides kCal: 190 Provides Protein (gm) 5 Goal #1 TF tolerance Goal #2 TF to meet 80-100% energy and pro needs Follow-Up By: 08/10/20 Additional Comments F/U: stable TF, vent status, Reji administration
[2020-08-08] MEDS: ENOXAPARIN 40 MG/0.4 ML INJ SUB-Q SCH (09:43)
[2020-08-08] MEDS: FAMOTIDINE 20 MG TAB PO SCH ×2 (09:43→21:50)
[2020-08-08] MEDS: INSULIN GLARGINE 100 UNITS/ML SUB-Q SCH (09:43)
[2020-08-08] MEDS: SENNOSIDES/DOCUSATE SODIUM 8.6/50 MG TAB FEEDTUBE SCH ×2 (09:44→21:10)
[2020-08-08] MEDS: ZINC SULFATE 220 MG CAP PO SCH ×2 (09:44→21:50)
[2020-08-08] MEDS: ASCORBIC ACID 500 MG TAB PO SCH ×2 (09:44→21:50)
[2020-08-08] MEDS: amLODIPine 5 MG TAB PO SCH (09:44)
--- NOTE | 2020-08-08 10:22 | Progress Note ---
Assessment and Plan Acute possibly on chronic toxic metabolic encephalopathy Acute hypoxemic respiratory failure on MVS Severe sepsis with shock, presumably secondary to aspiration pneumonia Recent upper ext DVT (06/06) Aspiration pneumonia, bilateral Urinary tract infection History of quadriplegia Leukocytosis Anemia that is microcytic Coagulopathy. INR 2.17 at presentation Mild hypokalemia Acute kidney injury Metabolic lactic acidosis Non-ST elevation myocardial infarction Adult failure to thrive Moderate to severe protein calorie malnutrition - increased peep back to 8 - complete mucomyst dosing - RN asked to use prn dilaudid and tachycardia resolved; he has a 100 janelle/hr fentanyl patch and will see if controls pain better going forwards - continue scopolamine patch for orpharyngeal secretions - complete Diflucan dosing re: Jennyfer Albicans bacteremia - LTAC evaluation ongoing - continue care as below otherwise; - prn Levophed for target MAP > 65 mmHg - continue to wean supplemental oxygen for target O2 sat's > 90% acutely - VAP bundle addressed - continue lung protective strategies - continue bronchodilators with pulmonary hygiene per RT - wean per pulmonary driven protocols otherwise - avoid nephrotoxins, renally dose all medications - continue to avoid benzodiazepine's, reduce the possibility of delirium - complete AB's per ID rec's - prn analgesia per CPOT score - Maintenance of sleep-wake cycle, avoid delirium - continue enteral nutritional support at goal rate as tolerated - G.I. & VTE prophylaxis - PT/OT/ROM exercises - continue mobility protocols for pressure ulcer prophylaxis - Monitor hemodynamics closely - continue other care per attending / other consultants - discharge planning ongoing concurrently COVID SPECIFIC INTERVENTIONS: - COVID test result negative .... Re-evaluate in am & prn CONDITION: CRITICAL PROGNOSIS: GUARDED CODE STATUS: FULL CODE The high probability of a clinically significant, sudden or life-threatening deterioration of the [respiratory, cardiovascular & neurologic] system(s) required my full and direct attention, intervention and personal management. The aggregate critical care time was [34] minutes without overlap. Time includes spent on; [x] Data Review and interpretation [x] Patient assessment and monitoring of vital signs [x] Documentation [x] Medication orders and management Subjective Date of service: 08/08/20 Principal diagnosis: Ac. encephalopathy; Ac. hypoxemic resp failure; Septic Shock; PNA; UTI; JEFFERSON Interval history: Patient is seen today for: Acute encephalopathy; Acute hypoxemic respiratory failure; Septic Shock; Aspiration pneumonia; UTI; quadriplegia; JEFFERSON Seen and examined at bedside; 24hour events reviewed; nursing and respiratory care staff consulted; no adverse overnight events reported to me; resting in bed; has desaturated earlier today and FiO2 increased; also has had episodes of tachyarrythmia's; no emesis or overt aspiration; nods head yes to pain question intermittently Objective Vital Signs - 12hr 08/07/20 08/07/20 08/07/20 22:31 22:35 22:45 Temperature Pulse Rate 99 H 97 H 98 H Pulse Rate [ Anterior Bilateral Throughout] Pulse Rate [ From Monitor] Respiratory 18 19 17 Rate Respiratory Rate [Anterior Bilateral Throughout] Blood Pressure O2 Sat by Pulse 99 99 99 Oximetry 08/07/20 08/07/20 08/07/20 23:01 23:15 23:31 Temperature Pulse Rate 89 94 H 98 H Pulse Rate [ Anterior Bilateral Throughout] Pulse Rate [ From Monitor] Respiratory 15 18 19 Rate Respiratory Rate [Anterior Bilateral Throughout] Blood Pressure O2 Sat by Pulse 100 100 100 Oximetry 08/07/20 08/08/20 08/08/20 23:45 00:00 00:01 Temperature 97.3 F L Pulse Rate 96 H 96 H 95 H Pulse Rate [ Anterior Bilateral Throughout] Pulse Rate [ 96 H From Monitor] Respiratory 17 22 18 Rate Respiratory Rate [Anterior Bilateral Throughout] Blood Pressure 148/63 O2 Sat by Pulse 100 91 100 Oximetry 08/08/20 08/08/20 08/08/20 00:15 00:31 00:45 Temperature Pulse Rate 100 H 99 H 80 Pulse Rate [ Anterior Bilateral Throughout] Pulse Rate [ From Monitor] Respiratory 21 17 19 Rate Respiratory Rate [Anterior Bilateral Throughout] Blood Pressure O2 Sat by Pulse 100 100 100 Oximetry 08/08/20 08/08/20 08/08/20 01:01 01:15 01:31 Temperature Pulse Rate 97 H 82 97 H Pulse Rate [ Anterior Bilateral Throughout] Pulse Rate [ From Monitor] Respiratory 16 21 22 Rate Respiratory Rate [Anterior Bilateral Throughout] Blood Pressure O2 Sat by Pulse 96 94 92 Oximetry 08/08/20 08/08/20 08/08/20 01:45 02:01 02:15 Temperature Pulse Rate 96 H 94 H 97 H Pulse Rate [ Anterior Bilateral Throughout] Pulse Rate [ From Monitor] Respiratory 18 22 23 Rate Respiratory Rate [Anterior Bilateral Throughout] Blood Pressure O2 Sat by Pulse 94 94 93 Oximetry 06/23/21 06/23/21 06/23/21 02:31 02:43 02:45 Temperature Pulse Rate 98 H 97 H Pulse Rate [ 98 H Anterior Bilateral Throughout] Pulse Rate [ From Monitor] Respiratory 22 18 Rate Respiratory 18 Rate [Anterior Bilateral Throughout] Blood Pressure O2 Sat by Pulse 96 99 Oximetry 08/08/20 08/08/20 08/08/20 03:01 03:15 03:31 Temperature Pulse Rate 92 H 100 H 93 H Pulse Rate [ Anterior Bilateral Throughout] Pulse Rate [ From Monitor] Respiratory 22 25 H 27 H Rate Respiratory Rate [Anterior Bilateral Throughout] Blood Pressure O2 Sat by Pulse 96 96 92 Oximetry 08/08/20 08/08/20 08/08/20 03:45 03:49 04:00 Temperature 96.9 F L Pulse Rate 90 98 H 101 H Pulse Rate [ Anterior Bilateral Throughout] Pulse Rate [ 101 H From Monitor] Respiratory 25 H 27 H Rate Respiratory Rate [Anterior Bilateral Throughout] Blood Pressure 147/61 O2 Sat by Pulse 88 95 91 Oximetry 08/08/20 08/08/20 08/08/20 04:01 04:15 04:31 Temperature Pulse Rate 93 H 100 H 92 H Pulse Rate [ Anterior Bilateral Throughout] Pulse Rate [ From Monitor] Respiratory 29 H 28 H 24 Rate Respiratory Rate [Anterior Bilateral Throughout] Blood Pressure O2 Sat by Pulse 88 92 89 Oximetry 08/08/20 08/08/20 08/08/20 04:45 05:01 05:15 Temperature Pulse Rate 106 H 109 H 111 H Pulse Rate [ Anterior Bilateral Throughout] Pulse Rate [ From Monitor] Respiratory 29 H 17 20 Rate Respiratory Rate [Anterior Bilateral Throughout] Blood Pressure O2 Sat by Pulse 94 96 96 Oximetry 08/08/20 08/08/20 08/08/20 05:31 05:45 06:01 Temperature Pulse Rate 107 H 105 H 103 H Pulse Rate [ Anterior Bilateral Throughout] Pulse Rate [ From Monitor] Respiratory 26 H 31 H 30 H Rate Respiratory Rate [Anterior Bilateral Throughout] Blood Pressure O2 Sat by Pulse 95 92 89 Oximetry 08/08/20 08/08/20 08/08/20 06:15 06:31 06:45 Temperature Pulse Rate 95 H 98 H 115 H Pulse Rate [ Anterior Bilateral Throughout] Pulse Rate [ From Monitor] Respiratory 29 H 28 H 26 H Rate Respiratory Rate [Anterior Bilateral Throughout] Blood Pressure O2 Sat by Pulse 85 85 91 Oximetry 08/08/20 08/08/20 08/08/20 07:01 07:10 07:15 Temperature 97.8 F Pulse Rate 108 H 112 H Pulse Rate [ Anterior Bilateral Throughout] Pulse Rate [ From Monitor] Respiratory 32 H 26 H Rate Respiratory Rate [Anterior Bilateral Throughout] Blood Pressure O2 Sat by Pulse 85 100 Oximetry 08/08/20 08/08/20 08/08/20 07:26 07:31 07:45 Temperature Pulse Rate 103 H 114 H 104 H Pulse Rate [ Anterior Bilateral Throughout] Pulse Rate [ From Monitor] Respiratory 26 H 27 H Rate Respiratory Rate [Anterior Bilateral Throughout] Blood Pressure 147/61 O2 Sat by Pulse 89 98 98 Oximetry 08/08/20 08/08/20 08/08/20 08:00 08:01 08:14 Temperature Pulse Rate 111 H 112 H Pulse Rate [ 98 H Anterior Bilateral Throughout] Pulse Rate [ 112 H From Monitor] Respiratory 26 H 26 H Rate Respiratory 16 Rate [Anterior Bilateral Throughout] Blood Pressure O2 Sat by Pulse 98 98 Oximetry 08/08/20 08/08/20 08/08/20 08:15 08:31 08:45 Temperature Pulse Rate 112 H 120 H 119 H Pulse Rate [ Anterior Bilateral Throughout] Pulse Rate [ From Monitor] Respiratory 27 H 16 29 H Rate Respiratory Rate [Anterior Bilateral Throughout] Blood Pressure O2 Sat by Pulse 98 99 97 Oximetry 08/08/20 08/08/20 08/08/20 09:01 09:15 09:31 Temperature Pulse Rate 115 H 120 H 121 H Pulse Rate [ Anterior Bilateral Throughout] Pulse Rate [ From Monitor] Respiratory 28 H 28 H 29 H Rate Respiratory Rate [Anterior Bilateral Throughout] Blood Pressure O2 Sat by Pulse 97 97 97 Oximetry 08/08/20 08/08/20 09:44 09:45 Temperature Pulse Rate 121 H Pulse Rate [ Anterior Bilateral Throughout] Pulse Rate [ From Monitor] Respiratory 25 H Rate Respiratory Rate [Anterior Bilateral Throughout] Blood Pressure 147/60 O2 Sat by Pulse 96 Oximetry Constitutional: appears uncomfortable, other ( chronically ill looking male with mildly increased respiratory effort at rest on MVS) Eyes: non-icteric ENT: oropharynx dry, other (ETT 24 cm KEVIN) Neck: supple, no lymphadenopathy, no JVD Effort: mildly labored Ascultation: Bilateral: diminished breath sounds, rhonchi Percussion: Bilateral: not dull Cardiovascular: regular rate and rhythm, other (S1,S2) Gastrointestinal: normoactive bowel sounds, soft, non-tender, non-distended Integumentary: rash, decubitus ulcer (sacral (POA)) Extremities: no cyanosis, pulses normal, edema (lower extremities and bilatral upper extremity) Neurologic: pupils equal and round, unable to assess, other (quadriplegic, biting on ETT) Psychiatric: mood appropriate, affect normal CBC and BMP: 08/07/20 04:05 08/07/20 04:05 ABG, PT/INR, D-dimer: ABG ABG pH 7.380 (7.320-7.450) 08/08/20 09:49 POC ABG pCO2 40.9 mmHg (32.0-48.0) 08/08/20 09:49 ABG pCO2 44.2 mm Hg 08/07/20 14:30 POC ABG pO2 99.4 mmHg (83-108) 08/08/20 09:49 ABG pO2 62.9 mm Hg (80.0-90.0) L 08/07/20 14:30 POC ABG HCO3 23.7 08/08/20 09:49 ABG O2 Saturation 97.2 (0-100) 08/08/20 09:49 PT/INR, D-dimer PT 24.7 Sec. (12.2-14.9) H 07/28/20 08:48 INR 2.17 (0.87-1.13) H 07/28/20 08:48 Abnormal lab findings: Abnormal Labs 07/28/20 07/28/20 07/28/20 08:48 08:48 08:48 WBC 17.0 H RBC 2.77 L Hgb 8.2 L Hct 26.5 L MCV 96 H MCH MCHC 31 L RDW 16.2 H Plt Count Seg Neuts % (Manual) Lymphocytes % (Manual) Seg Neutrophils # Man Lymphocytes # (Manual) PT 24.7 H INR 2.17 H ABG pH POC ABG pCO2 POC ABG pO2 ABG pO2 ABG O2 Saturation ABG Hemoglobin ABG Oxyhemoglobin ABG Sodium ABG Potassium ABG Chloride ABG Glucose Oxyhemoglobin Carboxyhemoglobin Sodium 135 L Potassium 3.5 L Chloride 97.6 L Carbon Dioxide BUN 44 H Creatinine 1.6 H Glucose 431 H POC Glucose Hemoglobin A1c Lactic Acid Calcium 7.9 L Ionized Calcium Phosphorus AST 81 H ALT Alkaline Phosphatase Ammonia Total Creatine Kinase 486 H Troponin T 0.115 H* C-Reactive Protein Total Protein 5.6 L Albumin 2.6 L Triglycerides LDL Cholesterol Direct 44 L HDL Cholesterol 26 L Arterial Blood Glucose Arterial Blood Ionized Calcium Urine WBC (Auto) Salicylates Crossmatch 07/28/20 07/28/20 07/28/20 08:48 09:44 09:44 WBC RBC Hgb Hct MCV MCH MCHC RDW Plt Count Seg Neuts % (Manual) Lymphocytes % (Manual) Seg Neutrophils # Man Lymphocytes # (Manual) PT INR ABG pH POC ABG pCO2 POC ABG pO2 ABG pO2 ABG O2 Saturation ABG Hemoglobin ABG Oxyhemoglobin ABG Sodium ABG Potassium ABG Chloride ABG Glucose Oxyhemoglobin Carboxyhemoglobin Sodium Potassium Chloride Carbon Dioxide BUN Creatinine Glucose POC Glucose Hemoglobin A1c Lactic Acid 3.80 H* Calcium Ionized Calcium Phosphorus AST ALT Alkaline Phosphatase Ammonia 63.0 H Total Creatine Kinase Troponin T C-Reactive Protein Total Protein Albumin Triglycerides LDL Cholesterol Direct HDL Cholesterol Arterial Blood Glucose Arterial Blood Ionized Calcium Urine WBC (Auto) Salicylates < 0.3 L Crossmatch 07/28/20 07/28/20 07/28/20 10:18 14:38 15:58 WBC RBC Hgb Hct MCV MCH MCHC RDW Plt Count Seg Neuts % (Manual) Lymphocytes % (Manual) Seg Neutrophils # Man Lymphocytes # (Manual) PT INR ABG pH POC ABG pCO2 POC ABG pO2 ABG pO2 78.0 L ABG O2 Saturation ABG Hemoglobin 7.6 L ABG Oxyhemoglobin ABG Sodium ABG Potassium ABG Chloride ABG Glucose Oxyhemoglobin Carboxyhemoglobin Sodium Potassium Chloride Carbon Dioxide BUN Creatinine Glucose POC Glucose 265 H Hemoglobin A1c Lactic Acid 3.90 H* Calcium Ionized Calcium Phosphorus AST ALT Alkaline Phosphatase Ammonia Total Creatine Kinase Troponin T C-Reactive Protein Total Protein Albumin Triglycerides LDL Cholesterol Direct HDL Cholesterol Arterial Blood Glucose Arterial Blood Ionized Calcium Urine WBC (Auto) Salicylates Crossmatch 07/28/20 07/28/20 07/28/20 19:50 21:00 Unknown WBC RBC Hgb Hct MCV MCH MCHC RDW Plt Count Seg Neuts % (Manual) Lymphocytes % (Manual) Seg Neutrophils # Man Lymphocytes # (Manual) PT INR ABG pH 7.107 L POC ABG pCO2 65.6 H POC ABG pO2 ABG pO2 ABG O2 Saturation ABG Hemoglobin 9.9 L ABG Oxyhemoglobin ABG Sodium ABG Potassium ABG Chloride 108.0 H ABG Glucose 299 H Oxyhemoglobin Carboxyhemoglobin 0.2 L Sodium Potassium Chloride Carbon Dioxide BUN Creatinine Glucose POC Glucose Hemoglobin A1c Lactic Acid Calcium Ionized Calcium Phosphorus 5.40 H AST ALT Alkaline Phosphatase Ammonia Total Creatine Kinase Troponin T C-Reactive Protein 9.00 H Total Protein Albumin Triglycerides LDL Cholesterol Direct HDL Cholesterol Arterial Blood Glucose 299 H Arterial Blood Ionized Calcium 4.2 L Urine WBC (Auto) > 182.0 H Salicylates Crossmatch 07/29/20 07/29/20 07/29/20 04:02 13:00 17:13 WBC RBC Hgb Hct MCV MCH MCHC RDW Plt Count Seg Neuts % (Manual) Lymphocytes % (Manual) Seg Neutrophils # Man Lymphocytes # (Manual) PT INR ABG pH 7.212 L POC ABG pCO2 52.5 H POC ABG pO2 128.3 H ABG pO2 ABG O2 Saturation ABG Hemoglobin 10.5 L ABG Oxyhemoglobin ABG Sodium ABG Potassium ABG Chloride 108.0 H ABG Glucose 239 H Oxyhemoglobin Carboxyhemoglobin Sodium Potassium Chloride Carbon Dioxide BUN Creatinine Glucose POC Glucose 212 H 257 H Hemoglobin A1c Lactic Acid Calcium Ionized Calcium Phosphorus AST ALT Alkaline Phosphatase Ammonia Total Creatine Kinase Troponin T C-Reactive Protein Total Protein Albumin Triglycerides LDL Cholesterol Direct HDL Cholesterol Arterial Blood Glucose 239 H Arterial Blood Ionized Calcium 4.0 L Urine WBC (Auto) Salicylates Crossmatch 07/29/20 07/29/20 07/29/20 21:00 23:20 Unknown WBC RBC 3.05 L Hgb 9.7 L Hct 28.6 L MCV MCH MCHC RDW 16.1 H Plt Count Seg Neuts % (Manual) 75.0 H Lymphocytes % (Manual) 2.0 L Seg Neutrophils # Man Lymphocytes # (Manual) 0.2 L PT INR ABG pH 7.286 L POC ABG pCO2 POC ABG pO2 ABG pO2 ABG O2 Saturation ABG Hemoglobin 9.1 L ABG Oxyhemoglobin ABG Sodium ABG Potassium ABG Chloride 109.0 H ABG Glucose 285 H Oxyhemoglobin Carboxyhemoglobin Sodium Potassium Chloride Carbon Dioxide BUN Creatinine Glucose POC Glucose 233 H Hemoglobin A1c Lactic Acid Calcium Ionized Calcium Phosphorus AST ALT Alkaline Phosphatase Ammonia Total Creatine Kinase Troponin T C-Reactive Protein Total Protein Albumin Triglycerides LDL Cholesterol Direct HDL Cholesterol Arterial Blood Glucose 285 H Arterial Blood Ionized Calcium 3.9 L Urine WBC (Auto) Salicylates Crossmatch 07/29/20 07/29/20 07/30/20 Unknown Unknown 05:30 WBC RBC Hgb Hct MCV MCH MCHC RDW Plt Count Seg Neuts % (Manual) Lymphocytes % (Manual) Seg Neutrophils # Man Lymphocytes # (Manual) PT INR ABG pH POC ABG pCO2 POC ABG pO2 ABG pO2 ABG O2 Saturation ABG Hemoglobin ABG Oxyhemoglobin ABG Sodium ABG Potassium ABG Chloride ABG Glucose Oxyhemoglobin Carboxyhemoglobin Sodium Potassium Chloride 108.4 H Carbon Dioxide 21 L BUN 41 H Creatinine Glucose 217 H POC Glucose 245 H Hemoglobin A1c Lactic Acid 2.70 H* Calcium 6.5 L D Ionized Calcium Phosphorus AST 104 H ALT 74 H Alkaline Phosphatase Ammonia Total Creatine Kinase Troponin T C-Reactive Protein Total Protein 5.1 L Albumin 2.4 L Triglycerides LDL Cholesterol Direct HDL Cholesterol Arterial Blood Glucose Arterial Blood Ionized Calcium Urine WBC (Auto) Salicylates Crossmatch 07/30/20 07/30/20 07/30/20 05:45 05:45 12:12 WBC RBC 2.50 L Hgb 7.8 L Hct 23.3 L MCV MCH MCHC RDW 16.4 H Plt Count Seg Neuts % (Manual) Lymphocytes % (Manual) Seg Neutrophils # Man Lymphocytes # (Manual) PT INR ABG pH POC ABG pCO2 POC ABG pO2 ABG pO2 ABG O2 Saturation ABG Hemoglobin ABG Oxyhemoglobin ABG Sodium ABG Potassium ABG Chloride ABG Glucose Oxyhemoglobin Carboxyhemoglobin Sodium Potassium Chloride 108.4 H Carbon Dioxide 21 L BUN 44 H Creatinine 1.4 H Glucose 279 H POC Glucose 243 H Hemoglobin A1c Lactic Acid Calcium 6.7 L Ionized Calcium Phosphorus AST 51 H ALT Alkaline Phosphatase Ammonia Total Creatine Kinase Troponin T C-Reactive Protein Total Protein 5.5 L Albumin 2.3 L Triglycerides LDL Cholesterol Direct HDL Cholesterol Arterial Blood Glucose Arterial Blood Ionized Calcium Urine WBC (Auto) Salicylates Crossmatch 07/30/20 07/30/20 07/30/20 15:50 17:20 19:01 WBC RBC Hgb Hct MCV MCH MCHC RDW Plt Count Seg Neuts % (Manual) Lymphocytes % (Manual) Seg Neutrophils # Man Lymphocytes # (Manual) PT INR ABG pH POC ABG pCO2 POC ABG pO2 147.2 H ABG pO2 ABG O2 Saturation ABG Hemoglobin 7.2 L ABG Oxyhemoglobin ABG Sodium ABG Potassium 3.3 L ABG Chloride 115.0 H ABG Glucose 269 H Oxyhemoglobin Carboxyhemoglobin 1.6 H Sodium Potassium Chloride Carbon Dioxide BUN Creatinine Glucose POC Glucose 260 H Hemoglobin A1c Lactic Acid Calcium Ionized Calcium 4.2 L Phosphorus AST ALT Alkaline Phosphatase Ammonia Total Creatine Kinase Troponin T C-Reactive Protein Total Protein Albumin Triglycerides LDL Cholesterol Direct HDL Cholesterol Arterial Blood Glucose 269 H Arterial Blood Ionized Calcium 3.5 L Urine WBC (Auto) Salicylates Crossmatch 07/30/20 07/31/20 07/31/20 23:16 04:04 04:47 WBC RBC Hgb Hct MCV MCH MCHC RDW Plt Count Seg Neuts % (Manual) Lymphocytes % (Manual) Seg Neutrophils # Julien Lymphocytes # (Manual) PT INR ABG pH POC ABG pCO2 POC ABG pO2 ABG pO2 ABG O2 Saturation ABG Hemoglobin 7.6 L ABG Oxyhemoglobin ABG Sodium ABG Potassium 3.3 L ABG Chloride 113.0 H ABG Glucose 348 H Oxyhemoglobin Carboxyhemoglobin 0.4 L Sodium Potassium Chloride Carbon Dioxide BUN Creatinine Glucose POC Glucose 298 H 297 H Hemoglobin A1c Lactic Acid Calcium Ionized Calcium Phosphorus AST ALT Alkaline Phosphatase Ammonia Total Creatine Kinase Troponin T C-Reactive Protein Total Protein Albumin Triglycerides LDL Cholesterol Direct HDL Cholesterol Arterial Blood Glucose 348 H Arterial Blood Ionized Calcium 4.1 L Urine WBC (Auto) Salicylates Crossmatch 07/31/20 07/31/20 07/31/20 07:26 07:26 11:54 WBC RBC 2.29 L Hgb 7.2 L Hct 21.5 L MCV MCH MCHC RDW 16.7 H Plt Count Seg Neuts % (Manual) Lymphocytes % (Manual) Seg Neutrophils # Man Lymphocytes # (Manual) PT INR ABG pH POC ABG pCO2 POC ABG pO2 ABG pO2 ABG O2 Saturation ABG Hemoglobin ABG Oxyhemoglobin ABG Sodium ABG Potassium ABG Chloride ABG Glucose Oxyhemoglobin Carboxyhemoglobin Sodium Potassium 3.4 L Chloride 109.4 H Carbon Dioxide BUN 45 H Creatinine 1.4 H Glucose 304 H POC Glucose 302 H Hemoglobin A1c Lactic Acid Calcium 6.9 L Ionized Calcium Phosphorus AST ALT Alkaline Phosphatase Ammonia Total Creatine Kinase Troponin T C-Reactive Protein Total Protein Albumin Triglycerides LDL Cholesterol Direct HDL Cholesterol Arterial Blood Glucose Arterial Blood Ionized Calcium Urine WBC (Auto) Salicylates Crossmatch 07/31/20 08/01/20 08/01/20 21:27 03:09 04:30 WBC RBC 2.29 L Hgb 7.0 L Hct 20.7 L MCV MCH MCHC RDW 16.2 H Plt Count 125 L Seg Neuts % (Manual) Lymphocytes % (Manual) Seg Neutrophils # Man Lymphocytes # (Manual) PT INR ABG pH POC ABG pCO2 POC ABG pO2 ABG pO2 ABG O2 Saturation ABG Hemoglobin 7.4 L ABG Oxyhemoglobin ABG Sodium 146.9 H ABG Potassium 3.2 L ABG Chloride 116.0 H ABG Glucose 113 H Oxyhemoglobin Carboxyhemoglobin Sodium Potassium Chloride Carbon Dioxide BUN Creatinine Glucose POC Glucose 138 H Hemoglobin A1c Lactic Acid Calcium Ionized Calcium Phosphorus AST ALT Alkaline Phosphatase Ammonia Total Creatine Kinase Troponin T C-Reactive Protein Total Protein Albumin Triglycerides LDL Cholesterol Direct HDL Cholesterol Arterial Blood Glucose 113 H Arterial Blood Ionized Calcium 4.5 L Urine WBC (Auto) Salicylates Crossmatch 08/01/20 08/01/20 08/01/20 04:30 04:30 08:40 WBC RBC Hgb Hct MCV MCH MCHC RDW Plt Count Seg Neuts % (Manual) Lymphocytes % (Manual) Seg Neutrophils # Man Lymphocytes # (Manual) PT INR ABG pH POC ABG pCO2 POC ABG pO2 ABG pO2 ABG O2 Saturation ABG Hemoglobin ABG Oxyhemoglobin ABG Sodium ABG Potassium ABG Chloride ABG Glucose Oxyhemoglobin Carboxyhemoglobin Sodium 148 H Potassium 3.4 L Chloride 114.3 H Carbon Dioxide BUN 43 H Creatinine Glucose 109 H POC Glucose Hemoglobin A1c 8.8 H Lactic Acid Calcium 8.1 L D Ionized Calcium Phosphorus AST ALT Alkaline Phosphatase Ammonia Total Creatine Kinase Troponin T C-Reactive Protein Total Protein Albumin Triglycerides LDL Cholesterol Direct HDL Cholesterol Arterial Blood Glucose Arterial Blood Ionized Calcium Urine WBC (Auto) Salicylates Crossmatch See Detail 08/01/20 08/01/20 08/01/20 08:40 17:03 23:35 WBC RBC Hgb Hct MCV MCH MCHC RDW Plt Count Seg Neuts % (Manual) Lymphocytes % (Manual) Seg Neutrophils # Man Lymphocytes # (Manual) PT INR ABG pH POC ABG pCO2 POC ABG pO2 ABG pO2 ABG O2 Saturation ABG Hemoglobin ABG Oxyhemoglobin ABG Sodium ABG Potassium ABG Chloride ABG Glucose Oxyhemoglobin Carboxyhemoglobin Sodium Potassium Chloride Carbon Dioxide BUN Creatinine Glucose POC Glucose 129 H 172 H Hemoglobin A1c Lactic Acid Calcium Ionized Calcium Phosphorus 1.70 L AST ALT Alkaline Phosphatase Ammonia Total Creatine Kinase Troponin T C-Reactive Protein Total Protein Albumin Triglycerides LDL Cholesterol Direct HDL Cholesterol Arterial Blood Glucose Arterial Blood Ionized Calcium Urine WBC (Auto) Salicylates Crossmatch 08/02/20 08/02/20 08/02/20 03:50 05:46 10:54 WBC RBC Hgb Hct MCV MCH MCHC RDW Plt Count Seg Neuts % (Manual) Lymphocytes % (Manual) Seg Neutrophils # Man Lymphocytes # (Manual) PT INR ABG pH 7.333 L POC ABG pCO2 POC ABG pO2 ABG pO2 91.5 H ABG O2 Saturation ABG Hemoglobin 7.9 L ABG Oxyhemoglobin ABG Sodium ABG Potassium ABG Chloride ABG Glucose Oxyhemoglobin Carboxyhemoglobin Sodium Potassium Chloride Carbon Dioxide BUN Creatinine Glucose POC Glucose 161 H 228 H Hemoglobin A1c Lactic Acid Calcium Ionized Calcium Phosphorus AST ALT Alkaline Phosphatase Ammonia Total Creatine Kinase Troponin T C-Reactive Protein Total Protein Albumin Triglycerides LDL Cholesterol Direct HDL Cholesterol Arterial Blood Glucose Arterial Blood Ionized Calcium Urine WBC (Auto) Salicylates Crossmatch 08/02/20 08/02/20 08/02/20 17:20 23:13 Unknown WBC RBC 2.66 L Hgb 8.1 L Hct 23.9 L MCV MCH MCHC RDW 16.8 H Plt Count 110 L Seg Neuts % (Manual) Lymphocytes % (Manual) Seg Neutrophils # Man Lymphocytes # (Manual) PT INR ABG pH POC ABG pCO2 POC ABG pO2 ABG pO2 ABG O2 Saturation ABG Hemoglobin ABG Oxyhemoglobin ABG Sodium ABG Potassium ABG Chloride ABG Glucose Oxyhemoglobin Carboxyhemoglobin Sodium Potassium Chloride Carbon Dioxide BUN Creatinine Glucose POC Glucose 214 H 132 H Hemoglobin A1c Lactic Acid Calcium Ionized Calcium Phosphorus AST ALT Alkaline Phosphatase Ammonia Total Creatine Kinase Troponin T C-Reactive Protein Total Protein Albumin Triglycerides LDL Cholesterol Direct HDL Cholesterol Arterial Blood Glucose Arterial Blood Ionized Calcium Urine WBC (Auto) Salicylates Crossmatch 08/02/20 08/02/20 08/03/20 Unknown Unknown 02:59 WBC RBC Hgb Hct MCV MCH MCHC RDW Plt Count Seg Neuts % (Manual) Lymphocytes % (Manual) Seg Neutrophils # Man Lymphocytes # (Manual) PT INR ABG pH POC ABG pCO2 POC ABG pO2 ABG pO2 ABG O2 Saturation ABG Hemoglobin 8.1 L ABG Oxyhemoglobin ABG Sodium ABG Potassium ABG Chloride 113.0 H ABG Glucose 143 H Oxyhemoglobin Carboxyhemoglobin Sodium 150 H Potassium 3.5 L Chloride 115.9 H Carbon Dioxide BUN 42 H Creatinine Glucose 188 H POC Glucose Hemoglobin A1c Lactic Acid Calcium 7.8 L Ionized Calcium Phosphorus 2.30 L D AST ALT Alkaline Phosphatase Ammonia Total Creatine Kinase Troponin T C-Reactive Protein Total Protein Albumin Triglycerides LDL Cholesterol Direct HDL Cholesterol Arterial Blood Glucose 143 H Arterial Blood Ionized Calcium Urine WBC (Auto) Salicylates Crossmatch 08/03/20 08/03/20 08/03/20 04:16 04:16 05:12 WBC RBC 2.62 L Hgb 8.1 L Hct 24.1 L MCV MCH MCHC RDW 17.4 H Plt Count 118 L Seg Neuts % (Manual) Lymphocytes % (Manual) Seg Neutrophils # Man Lymphocytes # (Manual) PT INR ABG pH POC ABG pCO2 POC ABG pO2 ABG pO2 ABG O2 Saturation ABG Hemoglobin ABG Oxyhemoglobin ABG Sodium ABG Potassium ABG Chloride ABG Glucose Oxyhemoglobin Carboxyhemoglobin Sodium 148 H Potassium Chloride 114.5 H Carbon Dioxide BUN 47 H Creatinine Glucose 158 H POC Glucose 164 H Hemoglobin A1c Lactic Acid Calcium 8.1 L Ionized Calcium Phosphorus 2.30 L AST ALT Alkaline Phosphatase Ammonia Total Creatine Kinase Troponin T C-Reactive Protein Total Protein Albumin Triglycerides LDL Cholesterol Direct HDL Cholesterol Arterial Blood Glucose Arterial Blood Ionized Calcium Urine WBC (Auto) Salicylates Crossmatch 08/03/20 08/03/20 08/03/20 11:26 17:33 23:47 WBC RBC Hgb Hct MCV MCH MCHC RDW Plt Count Seg Neuts % (Manual) Lymphocytes % (Manual) Seg Neutrophils # Man Lymphocytes # (Manual) PT INR ABG pH POC ABG pCO2 POC ABG pO2 ABG pO2 ABG O2 Saturation ABG Hemoglobin ABG Oxyhemoglobin ABG Sodium ABG Potassium ABG Chloride ABG Glucose Oxyhemoglobin Carboxyhemoglobin Sodium Potassium Chloride Carbon Dioxide BUN Creatinine Glucose POC Glucose 190 H 235 H 194 H Hemoglobin A1c Lactic Acid Calcium Ionized Calcium Phosphorus AST ALT Alkaline Phosphatase Ammonia Total Creatine Kinase Troponin T C-Reactive Protein Total Protein Albumin Triglycerides LDL Cholesterol Direct HDL Cholesterol Arterial Blood Glucose Arterial Blood Ionized Calcium Urine WBC (Auto) Salicylates Crossmatch 08/04/20 08/04/20 08/04/20 03:00 03:00 04:14 WBC RBC Hgb Hct MCV MCH MCHC RDW Plt Count Seg Neuts % (Manual) Lymphocytes % (Manual) Seg Neutrophils # Man Lymphocytes # (Manual) PT INR ABG pH POC ABG pCO2 POC ABG pO2 79.5 L ABG pO2 ABG O2 Saturation ABG Hemoglobin 9.9 L ABG Oxyhemoglobin ABG Sodium ABG Potassium ABG Chloride 113.0 H ABG Glucose 227 H Oxyhemoglobin Carboxyhemoglobin 0.3 L Sodium Potassium Chloride 111.4 H Carbon Dioxide BUN 51 H Creatinine Glucose 218 H POC Glucose Hemoglobin A1c Lactic Acid Calcium Ionized Calcium Phosphorus AST ALT Alkaline Phosphatase Ammonia Total Creatine Kinase Troponin T C-Reactive Protein Total Protein Albumin Triglycerides 184 H LDL Cholesterol Direct HDL Cholesterol Arterial Blood Glucose 227 H Arterial Blood Ionized Calcium Urine WBC (Auto) Salicylates Crossmatch 08/04/20 08/04/20 08/04/20 05:17 11:52 11:53 WBC RBC Hgb Hct MCV MCH MCHC RDW Plt Count Seg Neuts % (Manual) Lymphocytes % (Manual) Seg Neutrophils # Man Lymphocytes # (Manual) PT INR ABG pH POC ABG pCO2 POC ABG pO2 ABG pO2 ABG O2 Saturation ABG Hemoglobin ABG Oxyhemoglobin ABG Sodium ABG Potassium ABG Chloride ABG Glucose Oxyhemoglobin Carboxyhemoglobin Sodium Potassium Chloride Carbon Dioxide BUN Creatinine Glucose POC Glucose 224 H 253 H 237 H Hemoglobin A1c Lactic Acid Calcium Ionized Calcium Phosphorus AST ALT Alkaline Phosphatase Ammonia Total Creatine Kinase Troponin T C-Reactive Protein Total Protein Albumin Triglycerides LDL Cholesterol Direct HDL Cholesterol Arterial Blood Glucose Arterial Blood Ionized Calcium Urine WBC (Auto) Salicylates Crossmatch 08/04/20 08/04/20 08/04/20 15:35 16:25 17:45 WBC 21.5 H RBC 2.10 L Hgb 7.3 L Hct 22.0 L MCV MCH 33 H MCHC 37 H RDW 17.2 H Plt Count 133 L Seg Neuts % (Manual) Lymphocytes % (Manual) Seg Neutrophils # Man Lymphocytes # (Manual) PT INR ABG pH POC ABG pCO2 POC ABG pO2 ABG pO2 ABG O2 Saturation ABG Hemoglobin ABG Oxyhemoglobin ABG Sodium ABG Potassium ABG Chloride ABG Glucose Oxyhemoglobin Carboxyhemoglobin Sodium Potassium Chloride Carbon Dioxide BUN Creatinine Glucose POC Glucose 230 H 218 H Hemoglobin A1c Lactic Acid Calcium Ionized Calcium Phosphorus AST ALT Alkaline Phosphatase Ammonia Total Creatine Kinase Troponin T C-Reactive Protein Total Protein Albumin Triglycerides LDL Cholesterol Direct HDL Cholesterol Arterial Blood Glucose Arterial Blood Ionized Calcium Urine WBC (Auto) Salicylates Crossmatch 08/04/20 08/05/20 08/05/20 23:11 03:28 05:25 WBC RBC Hgb Hct MCV MCH MCHC RDW Plt Count Seg Neuts % (Manual) Lymphocytes % (Manual) Seg Neutrophils # Man Lymphocytes # (Manual) PT INR ABG pH POC ABG pCO2 POC ABG pO2 82.1 L ABG pO2 ABG O2 Saturation ABG Hemoglobin 8.6 L ABG Oxyhemoglobin 93.7 L ABG Sodium ABG Potassium ABG Chloride 113.0 H ABG Glucose 205 H Oxyhemoglobin Carboxyhemoglobin Sodium Potassium Chloride Carbon Dioxide BUN Creatinine Glucose POC Glucose 198 H 213 H Hemoglobin A1c Lactic Acid Calcium Ionized Calcium Phosphorus AST ALT Alkaline Phosphatase Ammonia Total Creatine Kinase Troponin T C-Reactive Protein Total Protein Albumin Triglycerides LDL Cholesterol Direct HDL Cholesterol Arterial Blood Glucose 205 H Arterial Blood Ionized Calcium Urine WBC (Auto) Salicylates Crossmatch 08/05/20 08/05/20 08/05/20 08:48 08:48 10:55 WBC 14.3 H RBC 2.76 L Hgb 8.1 L Hct 24.8 L MCV MCH MCHC RDW 17.4 H Plt Count 138 L Seg Neuts % (Manual) 97.0 H Lymphocytes % (Manual) 1.0 L Seg Neutrophils # Man 13.9 H Lymphocytes # (Manual) 0.1 L PT INR ABG pH POC ABG pCO2 POC ABG pO2 158.7 H ABG pO2 ABG O2 Saturation ABG Hemoglobin 7.8 L ABG Oxyhemoglobin ABG Sodium ABG Potassium ABG Chloride 114.0 H ABG Glucose 242 H Oxyhemoglobin Carboxyhemoglobin Sodium 146 H Potassium Chloride 110.1 H Carbon Dioxide BUN 56 H Creatinine Glucose 219 H POC Glucose Hemoglobin A1c Lactic Acid Calcium Ionized Calcium Phosphorus AST ALT Alkaline Phosphatase 192 H Ammonia Total Creatine Kinase Troponin T C-Reactive Protein Total Protein 5.8 L Albumin 2.0 L Triglycerides LDL Cholesterol Direct HDL Cholesterol Arterial Blood Glucose 242 H Arterial Blood Ionized Calcium Urine WBC (Auto) Salicylates Crossmatch 08/05/20 08/05/20 08/05/20 11:12 11:30 17:08 WBC RBC Hgb Hct MCV MCH MCHC RDW Plt Count Seg Neuts % (Manual) Lymphocytes % (Manual) Seg Neutrophils # Man Lymphocytes # (Manual) PT INR ABG pH POC ABG pCO2 POC ABG pO2 147.5 H ABG pO2 ABG O2 Saturation ABG Hemoglobin 7.5 L ABG Oxyhemoglobin 98.1 H ABG Sodium ABG Potassium ABG Chloride 113.0 H ABG Glucose 248 H Oxyhemoglobin Carboxyhemoglobin Sodium Potassium Chloride Carbon Dioxide BUN Creatinine Glucose POC Glucose 238 H 239 H Hemoglobin A1c Lactic Acid Calcium Ionized Calcium Phosphorus AST ALT Alkaline Phosphatase Ammonia Total Creatine Kinase Troponin T C-Reactive Protein Total Protein Albumin Triglycerides LDL Cholesterol Direct HDL Cholesterol Arterial Blood Glucose 248 H Arterial Blood Ionized Calcium Urine WBC (Auto) Salicylates Crossmatch 08/05/20 08/05/20 08/06/20 23:17 Unknown 05:12 WBC RBC Hgb Hct MCV MCH MCHC RDW Plt Count Seg Neuts % (Manual) Lymphocytes % (Manual) Seg Neutrophils # Man Lymphocytes # (Manual) PT INR ABG pH POC ABG pCO2 POC ABG pO2 ABG pO2 ABG O2 Saturation ABG Hemoglobin ABG Oxyhemoglobin ABG Sodium ABG Potassium ABG Chloride ABG Glucose Oxyhemoglobin Carboxyhemoglobin Sodium Potassium Chloride 109.2 H Carbon Dioxide BUN 51 H Creatinine Glucose 229 H POC Glucose 200 H 145 H Hemoglobin A1c Lactic Acid Calcium Ionized Calcium Phosphorus AST ALT Alkaline Phosphatase Ammonia Total Creatine Kinase Troponin T C-Reactive Protein Total Protein Albumin Triglycerides LDL Cholesterol Direct HDL Cholesterol Arterial Blood Glucose Arterial Blood Ionized Calcium Urine WBC (Auto) Salicylates Crossmatch 08/06/20 08/06/20 08/06/20 05:21 10:00 11:28 WBC RBC Hgb Hct MCV MCH MCHC RDW Plt Count Seg Neuts % (Manual) Lymphocytes % (Manual) Seg Neutrophils # Man Lymphocytes # (Manual) PT INR ABG pH 7.301 L 7.308 L POC ABG pCO2 49.5 H 49.1 H POC ABG pO2 178.4 H ABG pO2 ABG O2 Saturation ABG Hemoglobin 7.5 L 7.1 L ABG Oxyhemoglobin 98.8 H ABG Sodium ABG Potassium ABG Chloride 112.0 H 112.0 H ABG Glucose 149 H 162 H Oxyhemoglobin Carboxyhemoglobin Sodium Potassium Chloride Carbon Dioxide BUN Creatinine Glucose POC Glucose 158 H Hemoglobin A1c Lactic Acid Calcium Ionized Calcium Phosphorus AST ALT Alkaline Phosphatase Ammonia Total Creatine Kinase Troponin T C-Reactive Protein Total Protein Albumin Triglycerides LDL Cholesterol Direct HDL Cholesterol Arterial Blood Glucose 149 H 162 H Arterial Blood Ionized Calcium Urine WBC (Auto) Salicylates Crossmatch 08/06/20 08/06/20 08/06/20 17:42 23:56 Unknown WBC 13.0 H RBC 2.38 L Hgb 7.1 L Hct 21.5 L MCV MCH MCHC RDW 17.6 H Plt Count Seg Neuts % (Manual) Lymphocytes % (Manual) Seg Neutrophils # Man Lymphocytes # (Manual) PT INR ABG pH POC ABG pCO2 POC ABG pO2 ABG pO2 ABG O2 Saturation ABG Hemoglobin ABG Oxyhemoglobin ABG Sodium ABG Potassium ABG Chloride ABG Glucose Oxyhemoglobin Carboxyhemoglobin Sodium Potassium Chloride Carbon Dioxide BUN Creatinine Glucose POC Glucose 179 H 259 H Hemoglobin A1c Lactic Acid Calcium Ionized Calcium Phosphorus AST ALT Alkaline Phosphatase Ammonia Total Creatine Kinase Troponin T C-Reactive Protein Total Protein Albumin Triglycerides LDL Cholesterol Direct HDL Cholesterol Arterial Blood Glucose Arterial Blood Ionized Calcium Urine WBC (Auto) Salicylates Crossmatch 08/07/20 08/07/20 08/07/20 04:00 04:05 04:05 WBC RBC 2.32 L Hgb 7.1 L Hct 20.9 L MCV MCH MCHC RDW 17.9 H Plt Count Seg Neuts % (Manual) Lymphocytes % (Manual) Seg Neutrophils # Man Lymphocytes # (Manual) PT INR ABG pH POC ABG pCO2 POC ABG pO2 150.6 H ABG pO2 ABG O2 Saturation ABG Hemoglobin 8.0 L ABG Oxyhemoglobin 98.4 H ABG Sodium 146.7 H ABG Potassium ABG Chloride 114.0 H ABG Glucose 201 H Oxyhemoglobin Carboxyhemoglobin Sodium 151 H Potassium Chloride 114.3 H Carbon Dioxide BUN 63 H Creatinine Glucose 198 H POC Glucose Hemoglobin A1c Lactic Acid Calcium Ionized Calcium Phosphorus AST 54 H ALT Alkaline Phosphatase 213 H Ammonia Total Creatine Kinase Troponin T C-Reactive Protein Total Protein 6.1 L Albumin 2.0 L Triglycerides LDL Cholesterol Direct HDL Cholesterol Arterial Blood Glucose 201 H Arterial Blood Ionized Calcium Urine WBC (Auto) Salicylates Crossmatch 08/07/20 08/07/20 08/07/20 05:34 11:43 14:30 WBC RBC Hgb Hct MCV MCH MCHC RDW Plt Count Seg Neuts % (Manual) Lymphocytes % (Manual) Seg Neutrophils # Man Lymphocytes # (Manual) PT INR ABG pH POC ABG pCO2 POC ABG pO2 ABG pO2 62.9 L ABG O2 Saturation 86.7 L ABG Hemoglobin 7.1 L ABG Oxyhemoglobin ABG Sodium ABG Potassium ABG Chloride ABG Glucose Oxyhemoglobin 85.0 L Carboxyhemoglobin Sodium Potassium Chloride Carbon Dioxide BUN Creatinine Glucose POC Glucose 160 H 201 H Hemoglobin A1c Lactic Acid Calcium Ionized Calcium Phosphorus AST ALT Alkaline Phosphatase Ammonia Total Creatine Kinase Troponin T C-Reactive Protein Total Protein Albumin Triglycerides LDL Cholesterol Direct HDL Cholesterol Arterial Blood Glucose Arterial Blood Ionized Calcium Urine WBC (Auto) Salicylates Crossmatch 08/07/20 08/07/20 08/08/20 17:57 23:12 09:49 WBC RBC Hgb Hct MCV MCH MCHC RDW Plt Count Seg Neuts % (Manual) Lymphocytes % (Manual) Seg Neutrophils # Man Lymphocytes # (Manual) PT INR ABG pH POC ABG pCO2 POC ABG pO2 ABG pO2 ABG O2 Saturation ABG Hemoglobin 6.9 L ABG Oxyhemoglobin ABG Sodium 146.1 H ABG Potassium ABG Chloride 114.0 H ABG Glucose 192 H Oxyhemoglobin Carboxyhemoglobin Sodium Potassium Chloride Carbon Dioxide BUN Creatinine Glucose POC Glucose 242 H 246 H Hemoglobin A1c Lactic Acid Calcium Ionized Calcium Phosphorus AST ALT Alkaline Phosphatase Ammonia Total Creatine Kinase Troponin T C-Reactive Protein Total Protein Albumin Triglycerides LDL Cholesterol Direct HDL Cholesterol Arterial Blood Glucose 192 H Arterial Blood Ionized Calcium Urine WBC (Auto) Salicylates Crossmatch Chest x-ray: image reviewed (LLL small volume atelectasis) Allied health notes reviewed: nursing
--- NOTE | 2020-08-08 12:06 | Progress Note ---
Assessment and Plan - Patient Problems (1) Bradycardia Current Visit: Yes Status: Acute Plan to address problem: No further bradycardia. An echocardiogram this presentation showed well-preserved left ventricular systolic function with ejection fraction 50 to 55%. Will continue supportive cardiac management. Subjective Date of service: 08/08/20 Principal diagnosis: Ac. encephalopathy; Ac. hypoxemic resp failure; Septic Shock; PNA; UTI; [place] Interval history: Patient remains intubated on mechanical ventilation. Currently, he is mild sinus tachycardia on telemetry monitoring. Objective Vital Signs Temp Pulse Pulse Pulse Resp Resp BP 08/08/20 12:02 121 H 147/60 08/08/20 09:45 121 H 25 H 08/08/20 09:44 147/60 08/08/20 09:31 121 H 29 H 08/08/20 09:15 120 H 28 H 08/08/20 09:01 115 H 28 H 08/08/20 08:45 119 H 29 H 08/08/20 08:31 120 H 16 08/08/20 08:15 112 H 27 H 08/08/20 08:14 98 H 16 08/08/20 08:01 112 H 26 H 08/08/20 08:00 111 H 112 H 26 H 08/08/20 07:45 104 H 27 H 08/08/20 07:31 114 H 26 H 08/08/20 07:26 103 H 147/61 08/08/20 07:15 112 H 26 H 08/08/20 07:10 97.8 F 08/08/20 07:01 108 H 32 H 08/08/20 06:45 115 H 26 H 08/08/20 06:31 98 H 28 H 08/08/20 06:15 95 H 29 H 08/08/20 06:01 103 H 30 H 08/08/20 05:45 105 H 31 H 08/08/20 05:31 107 H 26 H 08/08/20 05:15 111 H 20 08/08/20 05:01 109 H 17 08/08/20 04:45 106 H 29 H 08/08/20 04:31 92 H 24 08/08/20 04:15 100 H 28 H 08/08/20 04:01 93 H 29 H 08/08/20 04:00 96.9 F L 101 H 101 H 27 H 06/23/21 03:49 98 H 147/61 06/23/21 03:45 90 25 H 08/08/20 03:31 93 H 27 H 08/08/20 03:15 100 H 25 H 08/08/20 03:01 92 H 22 08/08/20 02:45 97 H 18 08/08/20 02:43 98 H 18 08/08/20 02:31 98 H 22 08/08/20 02:15 97 H 23 08/08/20 02:01 94 H 22 08/08/20 01:45 96 H 18 08/08/20 01:31 97 H 22 08/08/20 01:15 82 21 08/08/20 01:01 97 H 16 08/08/20 00:45 80 19 08/08/20 00:31 99 H 17 08/08/20 00:15 100 H 21 08/08/20 00:01 95 H 18 08/08/20 00:00 97.3 F L 96 H 96 H 22 148/63 08/07/20 23:45 96 H 17 08/07/20 23:31 98 H 19 08/07/20 23:15 94 H 18 08/07/20 23:01 89 15 08/07/20 22:45 98 H 17 08/07/20 22:35 97 H 19 08/07/20 22:31 99 H 18 08/07/20 22:15 97 H 17 08/07/20 22:01 97 H 08/07/20 21:45 92 H 20 08/07/20 21:31 97 H 17 08/07/20 21:15 99 H 19 08/07/20 21:01 98 H 18 08/07/20 20:45 99 H 19 08/07/20 20:31 95 H 18 08/07/20 20:15 85 22 08/07/20 20:14 90 23 08/07/20 20:01 93 H 22 08/07/20 20:00 97.0 F L 92 H 92 H 21 08/07/20 19:45 92 H 25 H 08/07/20 19:31 99 H 08/07/20 19:25 95 H 154/67 08/07/20 19:15 94 H 20 08/07/20 19:01 96 H 19 08/07/20 18:45 94 H 21 08/07/20 18:31 97 H 22 08/07/20 18:15 97 H 20 08/07/20 18:01 92 H 21 08/07/20 17:45 95 H 20 08/07/20 17:31 96 H 20 08/07/20 17:15 96 H 21 08/07/20 17:01 96 H 20 08/07/20 16:45 94 H 21 08/07/20 16:31 93 H 26 H 08/07/20 16:20 95 H 7 L 08/07/20 16:15 93 H 19 08/07/20 16:03 95 H 20 08/07/20 16:00 97.8 F 95 H 24 08/07/20 15:45 92 H 21 190/76 08/07/20 15:30 94 H 19 190/76 08/07/20 15:16 93 H 19 190/76 08/07/20 15:00 92 H 22 190/76 08/07/20 14:46 98 H 18 190/76 08/07/20 14:30 91 H 17 190/76 08/07/20 14:25 88 18 08/07/20 14:16 91 H 21 190/76 08/07/20 14:00 90 22 08/07/20 13:46 80 23 08/07/20 13:30 98 H 13 08/07/20 13:16 90 16 08/07/20 13:00 96 H 12 08/07/20 12:46 94 H 19 08/07/20 12:30 84 13 08/07/20 12:16 83 28 H 08/07/20 12:15 87 5 L 156/65 Pulse Ox 08/08/20 12:02 96 08/08/20 09:45 96 08/08/20 09:44 08/08/20 09:31 97 08/08/20 09:15 97 08/08/20 09:01 97 08/08/20 08:45 97 08/08/20 08:31 99 08/08/20 08:15 98 08/08/20 08:14 08/08/20 08:01 98 08/08/20 08:00 98 08/08/20 07:45 98 08/08/20 07:31 98 08/08/20 07:26 89 08/08/20 07:15 100 08/08/20 07:10 08/08/20 07:01 85 08/08/20 06:45 91 08/08/20 06:31 85 08/08/20 06:15 85 08/08/20 06:01 89 08/08/20 05:45 92 08/08/20 05:31 95 08/08/20 05:15 96 08/08/20 05:01 96 08/08/20 04:45 94 08/08/20 04:31 89 08/08/20 04:15 92 08/08/20 04:01 88 08/08/20 04:00 91 08/08/20 03:49 95 08/08/20 03:45 88 08/08/20 03:31 92 08/08/20 03:15 96 08/08/20 03:01 96 08/08/20 02:45 99 08/08/20 02:43 08/08/20 02:31 96 08/08/20 02:15 93 08/08/20 02:01 94 08/08/20 01:45 94 08/08/20 01:31 92 08/08/20 01:15 94 08/08/20 01:01 96 08/08/20 00:45 100 08/08/20 00:31 100 08/08/20 00:15 100 08/08/20 00:01 100 08/08/20 00:00 91 08/07/20 23:45 100 08/07/20 23:31 100 08/07/20 23:15 100 08/07/20 23:01 100 08/07/20 22:45 99 08/07/20 22:35 99 08/07/20 22:31 99 08/07/20 22:15 99 08/07/20 22:01 99 08/07/20 21:45 98 08/07/20 21:31 99 08/07/20 21:15 99 08/07/20 21:01 97 08/07/20 20:45 98 08/07/20 20:31 96 08/07/20 20:15 86 08/07/20 20:14 08/07/20 20:01 97 08/07/20 20:00 94 08/07/20 19:45 96 08/07/20 19:31 96 08/07/20 19:25 96 08/07/20 19:15 97 08/07/20 19:01 97 08/07/20 18:45 97 08/07/20 18:31 97 08/07/20 18:15 98 08/07/20 18:01 97 08/07/20 17:45 97 08/07/20 17:31 97 08/07/20 17:15 97 08/07/20 17:01 97 08/07/20 16:45 96 08/07/20 16:31 92 08/07/20 16:20 97 08/07/20 16:15 97 08/07/20 16:03 97 08/07/20 16:00 96 08/07/20 15:45 97 08/07/20 15:30 97 08/07/20 15:16 97 08/07/20 15:00 93 08/07/20 14:46 92 08/07/20 14:30 88 08/07/20 14:25 08/07/20 14:16 87 08/07/20 14:00 88 08/07/20 13:46 91 08/07/20 13:30 97 08/07/20 13:16 98 08/07/20 13:00 98 08/07/20 12:46 98 08/07/20 12:30 95 08/07/20 12:16 100 08/07/20 12:15 96 - Physical Examination General: Other (On the vent) Cardiac: Positive: Tachycardia Neuro: Positive: Other (Patient intubated, on the vent, history of quadriplegia) Extremities: Absent: edema - Allied health notes Allied health notes reviewed: nursing
--- NOTE | 2020-08-08 12:11 | Progress Note ---
Assessment and Plan Cultures: 07/28/2020 blood culture: C albicans 07/28/2020 urine culture: No growth COVID PCR: negative 07/31/2020 blood culture: Coag negative staph in 1 of 4 bottles (contaminant) 08/02/2020 blood culture: No growth 08/06/2020 resp culture: normal resp hawk A/P: 69-year-old long term resident with quadriplegia, spinal cord injury, was brought in due to fever and sepsis: #Septic shock: Resolved likely due to candidemia +/-pneumonia. #Candidemia: Repeat blood culture no growth. Unclear source. ?IV line. Transthoracic echo without vegetation. #Pneumonia: CT chest showed patchy airspace disease suggestive of possible aspiration. Chest x-ray with left lung whiteout, got bronch with suctioning of mucous plug, cultures with normal resp hawk. #UTI with chronic indwelling catheter #Acute hypoxic respiratory failure: On mechanical ventilation. #Transaminitis: Likely sepsis/shock related. Improved. #Sacral decubitus ulcer: Does not appear infected. Continue wound care. Recs: -Continue fluconazole 400 mg IV once a day, complete 14 days from clearance of candidemia (end date: 08/14/2020) -continue off other abx Dominga Simmons MD, FACP [facility] O: [phone] F: [phone] Subjective Date of service: 08/08/20 Principal diagnosis: Ac. encephalopathy; Ac. hypoxemic resp failure; Septic Sh ock; PNA; UTI; [place] Interval history: No fever. Remains on the vent. Objective - Exam Narrative Exam: Physical Exam: Constitutional: opens eyes, intubated, on the vent Head, Ears, Nose: Normocephalic, atraumatic. External ears, nose normal Eyes: Conjunctivae/corneas clear. No icterus. No ptosis. Neck: intubated Oral: intubated Cardiovascular: S1, S2 + Respiratory: AE fair bilaterally and equal GI: Soft, bowel sounds + Musculoskeletal: Bilateral pedal edema Skin: No rash or abscess Hem/Lymphatic: No palpable cervical or supraclavicular nodes. No lymphangitis Psych: no agitation Neurological: opens eyes, intubated, on the vent, exam limited - Constitutional Vitals: Vital Signs Temp Pulse Resp BP Pulse Ox 98.9 F 121 H 25 H 147/60 96 08/08/20 12:06 08/08/20 12:02 08/08/20 09:45 08/08/20 12:02 08/08/20 12:02 Temperature -Last 24 Hours Temperature 98.9 F Temperature 97.8 F Temperature 96.9 F Temperature 97.3 F Temperature 97.0 F Temperature 97.8 F - Labs CBC & Chem 7: 08/07/20 04:05 08/07/20 04:05 Labs: Abnormal lab results 08/07/20 08/07/20 08/07/20 Range/Units 11:43 14:30 17:57 ABG pO2 62.9 L (80.0-90.0) mm Hg ABG O2 Saturation 86.7 L (95.0-99.0) % ABG Hemoglobin 7.1 L (14.0-18.0) gm/dl ABG Sodium (136.0-145.0) mmol/L ABG Chloride (98-107) mmol/L ABG Glucose (65-95) mg/dL Oxyhemoglobin 85.0 L (95.0-99.0) % POC Glucose 201 H 242 H (70-105) mg/dL Arterial Blood Glucose (65-95) mg/dL 08/07/20 08/08/20 Range/Units 23:12 09:49 ABG pO2 (80.0-90.0) mm Hg ABG O2 Saturation (95.0-99.0) % ABG Hemoglobin 6.9 L (14.0-18.0) gm/dl ABG Sodium 146.1 H (136.0-145.0) mmol/L ABG Chloride 114.0 H (98-107) mmol/L ABG Glucose 192 H (65-95) mg/dL Oxyhemoglobin (95.0-99.0) % POC Glucose 246 H (70-105) mg/dL Arterial Blood Glucose 192 H (65-95) mg/dL
[2020-08-08] MEDS ORDERED: HYDROmorphone 1 MG/1 ML INJ IV STA (14:50)
[2020-08-08] MEDS: FLUCONAZOLE 400 MG 200 ML IV SCH (15:35)
[2020-08-08] MEDS: ACETAMINOPHEN 325 MG TAB PO PRN ×2 (16:27→21:50)
--- NOTE | 2020-08-08 19:04 | Electrocardiograph Report ---
[facility] [place] Test Date: 2020-08-06 Test Time: 08:38:18 Pat Name: PRANAV PORTER Department: Room: A252 1 Gender: M [employer] Att[employer]: YOLI : 1950 Requested By: MIRYAM REECE Order Number: [id number] Reading MD: Saundra Mccray Measurements Intervals [place] Rate: 90 P: 90 TN: 145 QRS: 75 QRSD: 70 T: 22 QT: 324 QTc: 396 Interpretive Statements Sinus rhythm Consider left ventricular hypertrophy Compared to ECG 07/30/2020 11:43:07 Sinus rate has decreased Electronically Signed On 08-08-2020 19:04:26 EDT by Saundra Mccray
[2020-08-09] MEDS: FREE WATER PO SCH ×6 (00:20→19:28)
[2020-08-09] MEDS: ALBUTEROL 2.5 MG/3 ML NEBU IH SCH ×2 (05:03→07:58)
[2020-08-09] MEDS: ACETYLCYSTEINE 20% 200 MG/1 ML *FOR INHALATION USE INHALATION SCH ×2 (05:03→07:58)
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
[2020-08-09] MEDS: INSULIN LISPRO 100 UNIT/ML SUB-Q SCH ×4 (09:18→18:00)
[2020-08-09] MEDS: ASCORBIC ACID 500 MG TAB PO SCH ×2 (09:31→21:42)
[2020-08-09] MEDS: ENOXAPARIN 40 MG/0.4 ML INJ SUB-Q SCH (09:31)
[2020-08-09] MEDS: amLODIPine 5 MG TAB PO SCH (09:31)
[2020-08-09] MEDS: SENNOSIDES/DOCUSATE SODIUM 8.6/50 MG TAB FEEDTUBE SCH ×2 (09:31→21:41)
[2020-08-09] MEDS: ZINC SULFATE 220 MG CAP PO SCH ×2 (09:31→21:42)
[2020-08-09] MEDS: FAMOTIDINE 20 MG TAB PO SCH ×2 (09:31→21:42)
[2020-08-09] MEDS: INSULIN GLARGINE 100 UNITS/ML SUB-Q SCH (09:32)
--- NOTE | 2020-08-09 10:24 | Progress Note ---
Assessment and Plan - Patient Problems (1) Bradycardia Current Visit: Yes Status: Acute Plan to address problem: No further bradycardia. An echocardiogram this presentation showed well-preserved left ventricular systolic function with ejection fraction 50 to 55%. Will continue supportive cardiac management. Subjective Date of service: 08/09/20 Principal diagnosis: Ac. encephalopathy; Ac. hypoxemic resp failure; Septic Shock; PNA; UTI; [place] Interval history: Patient remains intubated on mechanical ventilation. Currently, he is mild sinus tachycardia on telemetry monitoring. Objective Vital Signs Temp Pulse Pulse Pulse Resp Resp BP 08/09/20 09:31 118 H 151/60 08/09/20 09:16 121 H 28 H 08/09/20 09:00 122 H 28 H 08/09/20 08:46 116 H 27 H 08/09/20 08:30 112 H 23 08/09/20 08:26 123 H 08/09/20 08:16 114 H 26 H 08/09/20 08:00 115 H 120 H 115 H 23 24 08/09/20 07:46 120 H 23 08/09/20 07:30 115 H 25 H 08/09/20 07:16 113 H 23 08/09/20 07:00 98.7 F 109 H 24 08/09/20 06:46 89 19 08/09/20 06:30 124 H 20 08/09/20 06:16 114 H 25 H 08/09/20 06:00 112 H 23 08/09/20 05:46 119 H 24 08/09/20 05:30 116 H 28 H 08/09/20 05:16 103 H 26 H 08/09/20 05:00 113 H 26 H 08/09/20 04:47 123 H 08/09/20 04:46 127 H 18 08/09/20 04:40 100.3 F H 08/09/20 04:30 116 H 26 H 08/09/20 04:16 117 H 33 H 08/09/20 04:00 119 H 119 H 23 08/09/20 03:46 104 H 22 08/09/20 03:30 125 H 22 08/09/20 03:16 113 H 27 H 08/09/20 03:00 116 H 21 08/09/20 02:46 117 H 26 H 08/09/20 02:30 126 H 24 08/09/20 02:16 124 H 24 08/09/20 02:00 116 H 28 H 08/09/20 01:46 110 H 23 08/09/20 01:30 117 H 29 H 08/09/20 01:16 125 H 30 H 08/09/20 01:00 121 H 31 H 08/09/20 00:46 122 H 30 H 08/09/20 00:30 120 H 26 H 08/09/20 00:16 125 H 29 H 08/09/20 00:00 109 H 127 H 18 08/08/20 23:48 99.3 F 08/08/20 23:46 110 H 18 08/08/20 23:30 108 H 19 08/08/20 23:16 108 H 19 08/08/20 23:00 109 H 18 08/08/20 22:46 112 H 18 08/08/20 22:30 117 H 22 08/08/20 22:16 106 H 18 08/08/20 22:00 112 H 20 08/08/20 21:46 109 H 20 08/08/20 21:31 109 H 20 08/08/20 21:15 112 H 18 08/08/20 21:01 120 H 21 08/08/20 20:45 120 H 21 08/08/20 20:38 101.2 F H 08/08/20 20:31 114 H 19 08/08/20 20:15 130 H 122 H 16 18 08/08/20 20:03 125 H 08/08/20 20:01 123 H 22 08/08/20 20:00 123 H 123 H 16 08/08/20 19:45 121 H 16 08/08/20 19:31 115 H 19 08/08/20 19:15 118 H 16 08/08/20 19:01 118 H 20 08/08/20 18:45 122 H 17 08/08/20 18:31 134 H 16 08/08/20 18:15 122 H 16 08/08/20 18:01 112 H 17 08/08/20 17:45 122 H 22 08/08/20 17:31 120 H 22 08/08/20 17:15 118 H 21 08/08/20 17:01 120 H 24 08/08/20 16:45 121 H 21 08/08/20 16:31 125 H 20 08/08/20 16:15 130 H 28 H 08/08/20 16:01 126 H 26 H 08/08/20 16:00 128 H 126 H 26 H 08/08/20 15:54 122 H 147/60 08/08/20 15:51 100.8 F H 08/08/20 15:45 125 H 26 H 08/08/20 15:31 129 H 22 08/08/20 15:15 120 H 14 08/08/20 15:01 127 H 19 08/08/20 14:45 128 H 21 08/08/20 14:31 130 H 20 08/08/20 14:15 128 H 19 08/08/20 14:01 125 H 20 08/08/20 13:45 130 H 21 08/08/20 13:31 131 H 21 08/08/20 13:17 123 H 18 08/08/20 13:15 121 H 27 H 08/08/20 13:01 123 H 31 H 08/08/20 12:45 122 H 33 H 08/08/20 12:31 117 H 29 H 08/08/20 12:15 119 H 30 H 08/08/20 12:06 98.9 F 08/08/20 12:02 121 H 147/60 08/08/20 12:01 120 H 32 H 08/08/20 12:00 121 H 120 H 30 H 08/08/20 11:45 118 H 29 H 08/08/20 11:31 128 H 27 H 08/08/20 11:15 124 H 29 H 08/08/20 11:01 124 H 29 H 08/08/20 10:45 127 H 31 H 08/08/20 10:31 118 H 28 H Pulse Ox 08/09/20 09:31 08/09/20 09:16 97 08/09/20 09:00 96 08/09/20 08:46 96 08/09/20 08:30 94 08/09/20 08:26 98 08/09/20 08:16 96 08/09/20 08:00 97 08/09/20 07:46 96 08/09/20 07:30 97 08/09/20 07:16 96 08/09/20 07:00 96 08/09/20 06:46 97 08/09/20 06:30 99 08/09/20 06:16 94 08/09/20 06:00 97 08/09/20 05:46 98 08/09/20 05:30 95 08/09/20 05:16 95 08/09/20 05:00 97 08/09/20 04:47 98 08/09/20 04:46 98 08/09/20 04:40 08/09/20 04:30 97 08/09/20 04:16 90 08/09/20 04:00 93 08/09/20 03:46 95 08/09/20 03:30 99 08/09/20 03:16 97 08/09/20 03:00 97 08/09/20 02:46 95 08/09/20 02:30 97 08/09/20 02:16 99 08/09/20 02:00 100 08/09/20 01:46 100 08/09/20 01:30 99 08/09/20 01:16 99 08/09/20 01:00 99 08/09/20 00:46 99 08/09/20 00:30 98 08/09/20 00:16 99 08/09/20 00:00 94 08/08/20 23:48 08/08/20 23:46 95 08/08/20 23:30 95 08/08/20 23:16 94 08/08/20 23:00 94 08/08/20 22:46 94 08/08/20 22:30 94 08/08/20 22:16 94 08/08/20 22:00 94 08/08/20 21:46 93 08/08/20 21:31 93 08/08/20 21:15 93 08/08/20 21:01 93 08/08/20 20:45 93 08/08/20 20:38 08/08/20 20:31 94 08/08/20 20:15 96 08/08/20 20:03 95 08/08/20 20:01 95 08/08/20 20:00 95 08/08/20 19:45 95 08/08/20 19:31 94 08/08/20 19:15 94 08/08/20 19:01 94 08/08/20 18:45 94 08/08/20 18:31 99 08/08/20 18:15 94 08/08/20 18:01 94 08/08/20 17:45 94 08/08/20 17:31 95 08/08/20 17:15 95 08/08/20 17:01 95 08/08/20 16:45 96 08/08/20 16:31 95 08/08/20 16:15 98 08/08/20 16:01 95 08/08/20 16:00 95 08/08/20 15:54 94 08/08/20 15:51 08/08/20 15:45 94 08/08/20 15:31 94 08/08/20 15:15 98 08/08/20 15:01 98 08/08/20 14:45 98 08/08/20 14:31 98 08/08/20 14:15 98 08/08/20 14:01 98 08/08/20 13:45 98 08/08/20 13:31 98 08/08/20 13:17 08/08/20 13:15 95 08/08/20 13:01 96 08/08/20 12:45 94 08/08/20 12:31 94 08/08/20 12:15 95 08/08/20 12:06 08/08/20 12:02 96 08/08/20 12:01 95 08/08/20 12:00 95 08/08/20 11:45 97 08/08/20 11:31 97 08/08/20 11:15 98 08/08/20 11:01 98 08/08/20 10:45 98 08/08/20 10:31 98 - Physical Examination General: Other (On the vent) Cardiac: Positive: Tachycardia Neuro: Positive: Other (Patient intubated, on the vent, history of quadriplegia) - Allied health notes Allied health notes reviewed: nursing
--- NOTE | 2020-08-09 10:59 | Progress Note ---
Assessment and Plan Cultures: 07/28/2020 blood culture: C albicans 07/28/2020 urine culture: No growth COVID PCR: negative 07/31/2020 blood culture: Coag negative staph in 1 of 4 bottles (contaminant) 08/02/2020 blood culture: No growth 08/06/2020 resp culture: normal resp hawk A/P: 69-year-old senior living resident with quadriplegia, spinal cord injury, was brought in due to fever and sepsis: #Septic shock: Resolved likely due to candidemia +/-pneumonia. #Candidemia: Repeat blood culture no growth. Unclear source. ?IV line. Transthoracic echo without vegetation. #Pneumonia: CT chest showed patchy airspace disease suggestive of possible aspiration. Chest x-ray with left lung whiteout, got bronch with suctioning of mucous plug, cultures with normal resp hawk. #UTI with chronic indwelling catheter #Acute hypoxic respiratory failure: On mechanical ventilation. #Transaminitis: Likely sepsis/shock related. Improved. #Sacral decubitus ulcer: Does not appear infected. Continue wound care. Recs: -Continue fluconazole 400 mg IV once a day, complete 14 days from clearance of candidemia (end date: 08/14/2020) -New fever, ?pneumonia related, IV Ceftriaxone ordered, plan 5-7 days Dominga Simmons MD, FACP [facility] ([facility] O: [phone] F: [phone] Subjective Date of service: 08/09/20 Principal diagnosis: Ac. encephalopathy; Ac. hypoxemic resp failure; Septic Shock; PNA; UTI; [place] Interval history: Fever +. Remains on the vent. As per RN, patient had some desaturations last night. No other complaints. No diarrhea. Objective - Exam Narrative Exam: Physical Exam: Constitutional: sedated, intubated, on the vent Head, Ears, Nose: Normocephalic, atraumatic. External ears, nose normal Eyes: Conjunctivae/corneas clear. No icterus. No ptosis. Neck: intubated Oral: intubated Cardiovascular: S1, S2 + Respiratory: AE fair bilaterally and equal GI: Soft, bowel sounds +, G tube + Musculoskeletal: Bilateral pedal edema Skin: No rash or abscess Hem/Lymphatic: No palpable cervical or supraclavicular nodes. No lymphangitis Psych: no agitation Neurological: sedated, intubated, on the vent, exam limited - Constitutional Vitals: Vital Signs Temp Pulse Resp BP Pulse Ox 98.7 F 116 H 27 H 151/60 97 08/09/20 07:00 08/09/20 10:16 08/09/20 10:16 08/09/20 09:31 08/09/20 10:16 Temperature -Last 24 Hours Temperature 98.7 F Temperature 100.3 F Temperature 99.3 F Temperature 101.2 F Temperature 100.8 F Temperature 98.9 F - Labs CBC & Chem 7: 08/07/20 04:05 08/07/20 04:05 Labs: Abnormal lab results 08/08/20 08/08/20 08/08/20 Range/Units 05:38 11:40 17:28 ABG Hemoglobin (12.0-17.5) ABG Sodium (136.0-145.0) mmol/L ABG Potassium (3.40-4.50) mmol/L ABG Chloride (98-107) mmol/L ABG Glucose (65-95) mg/dL POC Glucose 135 H 187 H 175 H (70-105) mg/dL Arterial Blood Glucose (65-95) mg/dL 08/09/20 08/09/20 Range/Units 03:41 06:10 ABG Hemoglobin 6.9 L (12.0-17.5) ABG Sodium 145.8 H (136.0-145.0) mmol/L ABG Potassium 4.6 H (3.40-4.50) mmol/L ABG Chloride 113.0 H (98-107) mmol/L ABG Glucose 113 H (65-95) mg/dL POC Glucose 118 H (70-105) mg/dL Arterial Blood Glucose 113 H (65-95) mg/dL
--- NOTE | 2020-08-09 11:49 | Progress Note ---
Assessment and Plan Acute possibly on chronic toxic metabolic encephalopathy Acute hypoxemic respiratory failure on MVS Severe sepsis with shock, presumably secondary to aspiration pneumonia Recent upper ext DVT (06/06) Aspiration pneumonia, bilateral Urinary tract infection History of quadriplegia Leukocytosis Anemia that is microcytic Coagulopathy. INR 2.17 at presentation Mild hypokalemia Acute kidney injury Metabolic lactic acidosis Non-ST elevation myocardial infarction Adult failure to thrive Moderate to severe protein calorie malnutrition - ETT day # 13; will consult for tracheostomy placement - follow am labs - 0.45 NS ordered @ 75 mls/hr X 2 liters re: hypernatremia and pre-renal azotemia - begin metoprolol 12.5 mg p.o. bid re: tachycardia - keep peep at 8 - LTAC evaluation ongoing - continue care as below otherwise; - prn Levophed for target MAP > 65 mmHg - continue to wean supplemental oxygen for target O2 sat's > 90% acutely - VAP bundle addressed - continue lung protective strategies - continue bronchodilators with pulmonary hygiene per RT - wean per pulmonary driven protocols otherwise - avoid nephrotoxins, renally dose all medications - continue to avoid benzodiazepine's, reduce the possibility of delirium - complete AB's per ID rec's - prn analgesia per CPOT score - Maintenance of sleep-wake cycle, avoid delirium - continue enteral nutritional support at goal rate as tolerated - G.I. & VTE prophylaxis - PT/OT/ROM exercises - continue mobility protocols for pressure ulcer prophylaxis - Monitor hemodynamics closely - continue other care per attending / other consultants - discharge planning ongoing concurrently COVID SPECIFIC INTERVENTIONS: - COVID test result negative .... Re-evaluate in am & prn CONDITION: CRITICAL PROGNOSIS: GUARDED CODE STATUS: FULL CODE The high probability of a clinically significant, sudden or life-threatening deterioration of the [respiratory, cardiovascular & neurologic] system(s) required my full and direct attention, intervention and personal management. The aggregate critical care time was [32] minutes without overlap. Time includes spent on; [x] Data Review and interpretation [x] Patient assessment and monitoring of vital signs [x] Documentation [x] Medication orders and management Subjective Date of service: 08/09/20 Principal diagnosis: Ac. encephalopathy; Ac. hypoxemic resp failure; Septic Shock; PNA; UTI; JEFFERSON Interval history: Patient is seen today for: Acute encephalopathy; Acute hypoxemic respiratory failure; Septic Shock; Aspiration pneumonia; UTI; quadriplegia; JEFFERSON Seen and examined at bedside; 24hour events reviewed; nursing and respiratory care staff consulted; no adverse overnight events reported to me; resting in bed; more comfortable today; still a tenuous wean; failed bedside SBT; STT day # Objective Vital Signs - 12hr 08/09/20 08/09/20 08/09/20 00:00 00:16 00:30 Temperature Pulse Rate 109 H 125 H 120 H Pulse Rate [ Anterior Bilateral Throughout] Pulse Rate [ 127 H From Monitor] Respiratory 18 29 H 26 H Rate Respiratory Rate [Anterior Bilateral Throughout] Blood Pressure O2 Sat by Pulse 94 99 98 Oximetry 08/09/20 08/09/20 08/09/20 00:46 01:00 01:16 Temperature Pulse Rate 122 H 121 H 125 H Pulse Rate [ Anterior Bilateral Throughout] Pulse Rate [ From Monitor] Respiratory 30 H 31 H 30 H Rate Respiratory Rate [Anterior Bilateral Throughout] Blood Pressure O2 Sat by Pulse 99 99 99 Oximetry 08/09/20 08/09/20 08/09/20 01:30 01:46 02:00 Temperature Pulse Rate 117 H 110 H 116 H Pulse Rate [ Anterior Bilateral Throughout] Pulse Rate [ From Monitor] Respiratory 29 H 23 28 H Rate Respiratory Rate [Anterior Bilateral Throughout] Blood Pressure O2 Sat by Pulse 99 100 100 Oximetry 08/09/20 08/09/20 08/09/20 02:16 02:30 02:46 Temperature Pulse Rate 124 H 126 H 117 H Pulse Rate [ Anterior Bilateral Throughout] Pulse Rate [ From Monitor] Respiratory 24 24 26 H Rate Respiratory Rate [Anterior Bilateral Throughout] Blood Pressure O2 Sat by Pulse 99 97 95 Oximetry 08/09/20 08/09/20 08/09/20 03:00 03:16 03:30 Temperature Pulse Rate 116 H 113 H 125 H Pulse Rate [ Anterior Bilateral Throughout] Pulse Rate [ From Monitor] Respiratory 21 27 H 22 Rate Respiratory Rate [Anterior Bilateral Throughout] Blood Pressure O2 Sat by Pulse 97 97 99 Oximetry 08/09/20 08/09/20 08/09/20 03:46 04:00 04:16 Temperature Pulse Rate 104 H 119 H 117 H Pulse Rate [ Anterior Bilateral Throughout] Pulse Rate [ 119 H From Monitor] Respiratory 22 23 33 H Rate Respiratory Rate [Anterior Bilateral Throughout] Blood Pressure O2 Sat by Pulse 95 93 90 Oximetry 08/09/20 08/09/2021 04:30 04:40 04:46 Temperature 100.3 F H Pulse Rate 116 H 127 H Pulse Rate [ Anterior Bilateral Throughout] Pulse Rate [ From Monitor] Respiratory 26 H 18 Rate Respiratory Rate [Anterior Bilateral Throughout] Blood Pressure O2 Sat by Pulse 97 98 Oximetry 08/09/20 08/09/20 08/09/20 04:47 05:00 05:16 Temperature Pulse Rate 123 H 113 H 103 H Pulse Rate [ Anterior Bilateral Throughout] Pulse Rate [ From Monitor] Respiratory 26 H 26 H Rate Respiratory Rate [Anterior Bilateral Throughout] Blood Pressure O2 Sat by Pulse 98 97 95 Oximetry 08/09/20 08/09/20 08/09/20 05:30 05:46 06:00 Temperature Pulse Rate 116 H 119 H 112 H Pulse Rate [ Anterior Bilateral Throughout] Pulse Rate [ From Monitor] Respiratory 28 H 24 23 Rate Respiratory Rate [Anterior Bilateral Throughout] Blood Pressure O2 Sat by Pulse 95 98 97 Oximetry 08/09/20 08/09/20 08/09/20 06:16 06:30 06:46 Temperature Pulse Rate 114 H 124 H 89 Pulse Rate [ Anterior Bilateral Throughout] Pulse Rate [ From Monitor] Respiratory 25 H 20 19 Rate Respiratory Rate [Anterior Bilateral Throughout] Blood Pressure O2 Sat by Pulse 94 99 97 Oximetry 08/09/20 08/09/20 08/09/20 07:00 07:16 07:30 Temperature 98.7 F Pulse Rate 109 H 113 H 115 H Pulse Rate [ Anterior Bilateral Throughout] Pulse Rate [ From Monitor] Respiratory 24 23 25 H Rate Respiratory Rate [Anterior Bilateral Throughout] Blood Pressure O2 Sat by Pulse 96 96 97 Oximetry 08/09/20 08/09/20 08/09/20 07:46 08:00 08:16 Temperature Pulse Rate 120 H 115 H 114 H Pulse Rate [ 120 H Anterior Bilateral Throughout] Pulse Rate [ 115 H From Monitor] Respiratory 23 23 26 H Rate Respiratory 24 Rate [Anterior Bilateral Throughout] Blood Pressure O2 Sat by Pulse 96 97 96 Oximetry 08/09/20 08/09/20 08/09/20 08:26 08:30 08:46 Temperature Pulse Rate 123 H 112 H 116 H Pulse Rate [ Anterior Bilateral Throughout] Pulse Rate [ From Monitor] Respiratory 23 27 H Rate Respiratory Rate [Anterior Bilateral Throughout] Blood Pressure O2 Sat by Pulse 98 94 96 Oximetry 08/09/20 08/09/20 08/09/20 09:00 09:16 09:30 Temperature Pulse Rate 122 H 121 H 120 H Pulse Rate [ Anterior Bilateral Throughout] Pulse Rate [ From Monitor] Respiratory 28 H 28 H 29 H Rate Respiratory Rate [Anterior Bilateral Throughout] Blood Pressure O2 Sat by Pulse 96 97 97 Oximetry 08/09/20 08/09/20 08/09/20 09:31 09:46 10:00 Temperature Pulse Rate 118 H 118 H 121 H Pulse Rate [ Anterior Bilateral Throughout] Pulse Rate [ From Monitor] Respiratory 27 H 28 H Rate Respiratory Rate [Anterior Bilateral Throughout] Blood Pressure 151/60 O2 Sat by Pulse 97 98 Oximetry 08/09/20 08/09/20 10:16 11:34 Temperature Pulse Rate 116 H 116 H Pulse Rate [ Anterior Bilateral Throughout] Pulse Rate [ From Monitor] Respiratory 27 H Rate Respiratory Rate [Anterior Bilateral Throughout] Blood Pressure 151/60 O2 Sat by Pulse 97 97 Oximetry Constitutional: appears uncomfortable, other ( chronically ill looking male with mildly increased respiratory effort at rest on MVS) Eyes: non-icteric ENT: oropharynx dry, other (ETT 24 cm KEVIN) Neck: supple, no lymphadenopathy, no JVD Effort: mildly labored Ascultation: Bilateral: diminished breath sounds, rhonchi Percussion: Bilateral: not dull Cardiovascular: regular rate and rhythm, other (S1,S2) Gastrointestinal: normoactive bowel sounds, soft, non-tender, non-distended Integumentary: rash, decubitus ulcer (sacral (POA)) Extremities: no cyanosis, pulses normal, edema (lower extremities and bilatral upper extremity) Neurologic: pupils equal and round, unable to assess, other (quadriplegic, biting on ETT) Psychiatric: mood appropriate, affect normal CBC and BMP: 08/07/20 04:05 08/07/20 04:05 ABG, PT/INR, D-dimer: ABG ABG pH 7.416 (7.320-7.450) 08/09/20 03:41 POC ABG pCO2 43.6 mmHg (32.0-48.0) 08/09/20 03:41 ABG pCO2 44.2 mm Hg 08/07/20 14:30 POC ABG pO2 84.5 mmHg (83-108) 08/09/20 03:41 ABG pO2 62.9 mm Hg (80.0-90.0) L 08/07/20 14:30 POC ABG HCO3 25.7 08/09/20 03:41 ABG O2 Saturation 96.5 (0-100) 08/09/20 03:41 PT/INR, D-dimer PT 24.7 Sec. (12.2-14.9) H 07/28/20 08:48 INR 2.17 (0.87-1.13) H 07/28/20 08:48 Abnormal lab findings: Abnormal Labs 07/28/20 07/28/20 07/28/20 08:48 08:48 08:48 WBC 17.0 H RBC 2.77 L Hgb 8.2 L Hct 26.5 L MCV 96 H MCH MCHC 31 L RDW 16.2 H Plt Count Seg Neuts % (Manual) Lymphocytes % (Manual) Seg Neutrophils # Man Lymphocytes # (Manual) PT 24.7 H INR 2.17 H ABG pH POC ABG pCO2 POC ABG pO2 ABG pO2 ABG O2 Saturation ABG Hemoglobin ABG Oxyhemoglobin ABG Sodium ABG Potassium ABG Chloride ABG Glucose Oxyhemoglobin Carboxyhemoglobin Sodium 135 L Potassium 3.5 L Chloride 97.6 L Carbon Dioxide BUN 44 H Creatinine 1.6 H Glucose 431 H POC Glucose Hemoglobin A1c Lactic Acid Calcium 7.9 L Ionized Calcium Phosphorus AST 81 H ALT Alkaline Phosphatase Ammonia Total Creatine Kinase 486 H Troponin T 0.115 H* C-Reactive Protein Total Protein 5.6 L Albumin 2.6 L Triglycerides LDL Cholesterol Direct 44 L HDL Cholesterol 26 L Arterial Blood Glucose Arterial Blood Ionized Calcium Urine WBC (Auto) Salicylates Crossmatch 07/28/20 07/28/20 07/28/20 08:48 09:44 09:44 WBC RBC Hgb Hct MCV MCH MCHC RDW Plt Count Seg Neuts % (Manual) Lymphocytes % (Manual) Seg Neutrophils # Man Lymphocytes # (Manual) PT INR ABG pH POC ABG pCO2 POC ABG pO2 ABG pO2 ABG O2 Saturation ABG Hemoglobin ABG Oxyhemoglobin ABG Sodium ABG Potassium ABG Chloride ABG Glucose Oxyhemoglobin Carboxyhemoglobin Sodium Potassium Chloride Carbon Dioxide BUN Creatinine Glucose POC Glucose Hemoglobin A1c Lactic Acid 3.80 H* Calcium Ionized Calcium Phosphorus AST ALT Alkaline Phosphatase Ammonia 63.0 H Total Creatine Kinase Troponin T C-Reactive Protein Total Protein Albumin Triglycerides LDL Cholesterol Direct HDL Cholesterol Arterial Blood Glucose Arterial Blood Ionized Calcium Urine WBC (Auto) Salicylates < 0.3 L Crossmatch 07/28/20 07/28/20 07/28/20 10:18 14:38 15:58 WBC RBC Hgb Hct MCV MCH MCHC RDW Plt Count Seg Neuts % (Manual) Lymphocytes % (Manual) Seg Neutrophils # Man Lymphocytes # (Manual) PT INR ABG pH POC ABG pCO2 POC ABG pO2 ABG pO2 78.0 L ABG O2 Saturation ABG Hemoglobin 7.6 L ABG Oxyhemoglobin ABG Sodium ABG Potassium ABG Chloride ABG Glucose Oxyhemoglobin Carboxyhemoglobin Sodium Potassium Chloride Carbon Dioxide BUN Creatinine Glucose POC Glucose 265 H Hemoglobin A1c Lactic Acid 3.90 H* Calcium Ionized Calcium Phosphorus AST ALT Alkaline Phosphatase Ammonia Total Creatine Kinase Troponin T C-Reactive Protein Total Protein Albumin Triglycerides LDL Cholesterol Direct HDL Cholesterol Arterial Blood Glucose Arterial Blood Ionized Calcium Urine WBC (Auto) Salicylates Crossmatch 07/28/20 07/28/20 07/28/20 19:50 21:00 Unknown WBC RBC Hgb Hct MCV MCH MCHC RDW Plt Count Seg Neuts % (Manual) Lymphocytes % (Manual) Seg Neutrophils # Man Lymphocytes # (Manual) PT INR ABG pH 7.107 L POC ABG pCO2 65.6 H POC ABG pO2 ABG pO2 ABG O2 Saturation ABG Hemoglobin 9.9 L ABG Oxyhemoglobin ABG Sodium ABG Potassium ABG Chloride 108.0 H ABG Glucose 299 H Oxyhemoglobin Carboxyhemoglobin 0.2 L Sodium Potassium Chloride Carbon Dioxide BUN Creatinine Glucose POC Glucose Hemoglobin A1c Lactic Acid Calcium Ionized Calcium Phosphorus 5.40 H AST ALT Alkaline Phosphatase Ammonia Total Creatine Kinase Troponin T C-Reactive Protein 9.00 H Total Protein Albumin Triglycerides LDL Cholesterol Direct HDL Cholesterol Arterial Blood Glucose 299 H Arterial Blood Ionized Calcium 4.2 L Urine WBC (Auto) > 182.0 H Salicylates Crossmatch 07/29/20 07/29/20 07/29/20 04:02 13:00 17:13 WBC RBC Hgb Hct MCV MCH MCHC RDW Plt Count Seg Neuts % (Manual) Lymphocytes % (Manual) Seg Neutrophils # Man Lymphocytes # (Manual) PT INR ABG pH 7.212 L POC ABG pCO2 52.5 H POC ABG pO2 128.3 H ABG pO2 ABG O2 Saturation ABG Hemoglobin 10.5 L ABG Oxyhemoglobin ABG Sodium ABG Potassium ABG Chloride 108.0 H ABG Glucose 239 H Oxyhemoglobin Carboxyhemoglobin Sodium Potassium Chloride Carbon Dioxide BUN Creatinine Glucose POC Glucose 212 H 257 H Hemoglobin A1c Lactic Acid Calcium Ionized Calcium Phosphorus AST ALT Alkaline Phosphatase Ammonia Total Creatine Kinase Troponin T C-Reactive Protein Total Protein Albumin Triglycerides LDL Cholesterol Direct HDL Cholesterol Arterial Blood Glucose 239 H Arterial Blood Ionized Calcium 4.0 L Urine WBC (Auto) Salicylates Crossmatch 07/29/20 07/29/20 07/29/20 21:00 23:20 Unknown WBC RBC 3.05 L Hgb 9.7 L Hct 28.6 L MCV MCH MCHC RDW 16.1 H Plt Count Seg Neuts % (Manual) 75.0 H Lymphocytes % (Manual) 2.0 L Seg Neutrophils # Man Lymphocytes # (Manual) 0.2 L PT INR ABG pH 7.286 L POC ABG pCO2 POC ABG pO2 ABG pO2 ABG O2 Saturation ABG Hemoglobin 9.1 L ABG Oxyhemoglobin ABG Sodium ABG Potassium ABG Chloride 109.0 H ABG Glucose 285 H Oxyhemoglobin Carboxyhemoglobin Sodium Potassium Chloride Carbon Dioxide BUN Creatinine Glucose POC Glucose 233 H Hemoglobin A1c Lactic Acid Calcium Ionized Calcium Phosphorus AST ALT Alkaline Phosphatase Ammonia Total Creatine Kinase Troponin T C-Reactive Protein Total Protein Albumin Triglycerides LDL Cholesterol Direct HDL Cholesterol Arterial Blood Glucose 285 H Arterial Blood Ionized Calcium 3.9 L Urine WBC (Auto) Salicylates Crossmatch 07/29/20 07/29/20 07/30/20 Unknown Unknown 05:30 WBC RBC Hgb Hct MCV MCH MCHC RDW Plt Count Seg Neuts % (Manual) Lymphocytes % (Manual) Seg Neutrophils # Man Lymphocytes # (Manual) PT INR ABG pH POC ABG pCO2 POC ABG pO2 ABG pO2 ABG O2 Saturation ABG Hemoglobin ABG Oxyhemoglobin ABG Sodium ABG Potassium ABG Chloride ABG Glucose Oxyhemoglobin Carboxyhemoglobin Sodium Potassium Chloride 108.4 H Carbon Dioxide 21 L BUN 41 H Creatinine Glucose 217 H POC Glucose 245 H Hemoglobin A1c Lactic Acid 2.70 H* Calcium 6.5 L D Ionized Calcium Phosphorus AST 104 H ALT 74 H Alkaline Phosphatase Ammonia Total Creatine Kinase Troponin T C-Reactive Protein Total Protein 5.1 L Albumin 2.4 L Triglycerides LDL Cholesterol Direct HDL Cholesterol Arterial Blood Glucose Arterial Blood Ionized Calcium Urine WBC (Auto) Salicylates Crossmatch 07/30/20 07/30/20 07/30/20 05:45 05:45 12:12 WBC RBC 2.50 L Hgb 7.8 L Hct 23.3 L MCV MCH MCHC RDW 16.4 H Plt Count Seg Neuts % (Manual) Lymphocytes % (Manual) Seg Neutrophils # Man Lymphocytes # (Manual) PT INR ABG pH POC ABG pCO2 POC ABG pO2 ABG pO2 ABG O2 Saturation ABG Hemoglobin ABG Oxyhemoglobin ABG Sodium ABG Potassium ABG Chloride ABG Glucose Oxyhemoglobin Carboxyhemoglobin Sodium Potassium Chloride 108.4 H Carbon Dioxide 21 L BUN 44 H Creatinine 1.4 H Glucose 279 H POC Glucose 243 H Hemoglobin A1c Lactic Acid Calcium 6.7 L Ionized Calcium Phosphorus AST 51 H ALT Alkaline Phosphatase Ammonia Total Creatine Kinase Troponin T C-Reactive Protein Total Protein 5.5 L Albumin 2.3 L Triglycerides LDL Cholesterol Direct HDL Cholesterol Arterial Blood Glucose Arterial Blood Ionized Calcium Urine WBC (Auto) Salicylates Crossmatch 07/30/20 07/30/20 07/30/20 15:50 17:20 19:01 WBC RBC Hgb Hct MCV MCH MCHC RDW Plt Count Seg Neuts % (Manual) Lymphocytes % (Manual) Seg Neutrophils # Man Lymphocytes # (Manual) PT INR ABG pH POC ABG pCO2 POC ABG pO2 147.2 H ABG pO2 ABG O2 Saturation ABG Hemoglobin 7.2 L ABG Oxyhemoglobin ABG Sodium ABG Potassium 3.3 L ABG Chloride 115.0 H ABG Glucose 269 H Oxyhemoglobin Carboxyhemoglobin 1.6 H Sodium Potassium Chloride Carbon Dioxide BUN Creatinine Glucose POC Glucose 260 H Hemoglobin A1c Lactic Acid Calcium Ionized Calcium 4.2 L Phosphorus AST ALT Alkaline Phosphatase Ammonia Total Creatine Kinase Troponin T C-Reactive Protein Total Protein Albumin Triglycerides LDL Cholesterol Direct HDL Cholesterol Arterial Blood Glucose 269 H Arterial Blood Ionized Calcium 3.5 L Urine WBC (Auto) Salicylates Crossmatch 07/30/20 07/31/20 07/31/20 23:16 04:04 04:47 WBC RBC Hgb Hct MCV MCH MCHC RDW Plt Count Seg Neuts % (Manual) Lymphocytes % (Manual) Seg Neutrophils # Man Lymphocytes # (Manual) PT INR ABG pH POC ABG pCO2 POC ABG pO2 ABG pO2 ABG O2 Saturation ABG Hemoglobin 7.6 L ABG Oxyhemoglobin ABG Sodium ABG Potassium 3.3 L ABG Chloride 113.0 H ABG Glucose 348 H Oxyhemoglobin Carboxyhemoglobin 0.4 L Sodium Potassium Chloride Carbon Dioxide BUN Creatinine Glucose POC Glucose 298 H 297 H Hemoglobin A1c Lactic Acid Calcium Ionized Calcium Phosphorus AST ALT Alkaline Phosphatase Ammonia Total Creatine Kinase Troponin T C-Reactive Protein Total Protein Albumin Triglycerides LDL Cholesterol Direct HDL Cholesterol Arterial Blood Glucose 348 H Arterial Blood Ionized Calcium 4.1 L Urine WBC (Auto) Salicylates Crossmatch 07/31/20 07/31/20 07/31/20 07:26 07:26 11:54 WBC RBC 2.29 L Hgb 7.2 L Hct 21.5 L MCV MCH MCHC RDW 16.7 H Plt Count Seg Neuts % (Manual) Lymphocytes % (Manual) Seg Neutrophils # Man Lymphocytes # (Manual) PT INR ABG pH POC ABG pCO2 POC ABG pO2 ABG pO2 ABG O2 Saturation ABG Hemoglobin ABG Oxyhemoglobin ABG Sodium ABG Potassium ABG Chloride ABG Glucose Oxyhemoglobin Carboxyhemoglobin Sodium Potassium 3.4 L Chloride 109.4 H Carbon Dioxide BUN 45 H Creatinine 1.4 H Glucose 304 H POC Glucose 302 H Hemoglobin A1c Lactic Acid Calcium 6.9 L Ionized Calcium Phosphorus AST ALT Alkaline Phosphatase Ammonia Total Creatine Kinase Troponin T C-Reactive Protein Total Protein Albumin Triglycerides LDL Cholesterol Direct HDL Cholesterol Arterial Blood Glucose Arterial Blood Ionized Calcium Urine WBC (Auto) Salicylates Crossmatch 07/31/20 08/01/20 08/01/20 21:27 03:09 04:30 WBC RBC 2.29 L Hgb 7.0 L Hct 20.7 L MCV MCH MCHC RDW 16.2 H Plt Count 125 L Seg Neuts % (Manual) Lymphocytes % (Manual) Seg Neutrophils # Man Lymphocytes # (Manual) PT INR ABG pH POC ABG pCO2 POC ABG pO2 ABG pO2 ABG O2 Saturation ABG Hemoglobin 7.4 L ABG Oxyhemoglobin ABG Sodium 146.9 H ABG Potassium 3.2 L ABG Chloride 116.0 H ABG Glucose 113 H Oxyhemoglobin Carboxyhemoglobin Sodium Potassium Chloride Carbon Dioxide BUN Creatinine Glucose POC Glucose 138 H Hemoglobin A1c Lactic Acid Calcium Ionized Calcium Phosphorus AST ALT Alkaline Phosphatase Ammonia Total Creatine Kinase Troponin T C-Reactive Protein Total Protein Albumin Triglycerides LDL Cholesterol Direct HDL Cholesterol Arterial Blood Glucose 113 H Arterial Blood Ionized Calcium 4.5 L Urine WBC (Auto) Salicylates Crossmatch 08/01/20 08/01/20 08/01/20 04:30 04:30 08:40 WBC RBC Hgb Hct MCV MCH MCHC RDW Plt Count Seg Neuts % (Manual) Lymphocytes % (Manual) Seg Neutrophils # Man Lymphocytes # (Manual) PT INR ABG pH POC ABG pCO2 POC ABG pO2 ABG pO2 ABG O2 Saturation ABG Hemoglobin ABG Oxyhemoglobin ABG Sodium ABG Potassium ABG Chloride ABG Glucose Oxyhemoglobin Carboxyhemoglobin Sodium 148 H Potassium 3.4 L Chloride 114.3 H Carbon Dioxide BUN 43 H Creatinine Glucose 109 H POC Glucose Hemoglobin A1c 8.8 H Lactic Acid Calcium 8.1 L D Ionized Calcium Phosphorus AST ALT Alkaline Phosphatase Ammonia Total Creatine Kinase Troponin T C-Reactive Protein Total Protein Albumin Triglycerides LDL Cholesterol Direct HDL Cholesterol Arterial Blood Glucose Arterial Blood Ionized Calcium Urine WBC (Auto) Salicylates Crossmatch See Detail 08/01/20 08/01/20 08/01/20 08:40 17:03 23:35 WBC RBC Hgb Hct MCV MCH MCHC RDW Plt Count Seg Neuts % (Manual) Lymphocytes % (Manual) Seg Neutrophils # Man Lymphocytes # (Manual) PT INR ABG pH POC ABG pCO2 POC ABG pO2 ABG pO2 ABG O2 Saturation ABG Hemoglobin ABG Oxyhemoglobin ABG Sodium ABG Potassium ABG Chloride ABG Glucose Oxyhemoglobin Carboxyhemoglobin Sodium Potassium Chloride Carbon Dioxide BUN Creatinine Glucose POC Glucose 129 H 172 H Hemoglobin A1c Lactic Acid Calcium Ionized Calcium Phosphorus 1.70 L AST ALT Alkaline Phosphatase Ammonia Total Creatine Kinase Troponin T C-Reactive Protein Total Protein Albumin Triglycerides LDL Cholesterol Direct HDL Cholesterol Arterial Blood Glucose Arterial Blood Ionized Calcium Urine WBC (Auto) Salicylates Crossmatch 08/02/20 08/02/20 08/02/20 03:50 05:46 10:54 WBC RBC Hgb Hct MCV MCH MCHC RDW Plt Count Seg Neuts % (Manual) Lymphocytes % (Manual) Seg Neutrophils # Man Lymphocytes # (Manual) PT INR ABG pH 7.333 L POC ABG pCO2 POC ABG pO2 ABG pO2 91.5 H ABG O2 Saturation ABG Hemoglobin 7.9 L ABG Oxyhemoglobin ABG Sodium ABG Potassium ABG Chloride ABG Glucose Oxyhemoglobin Carboxyhemoglobin Sodium Potassium Chloride Carbon Dioxide BUN Creatinine Glucose POC Glucose 161 H 228 H Hemoglobin A1c Lactic Acid Calcium Ionized Calcium Phosphorus AST ALT Alkaline Phosphatase Ammonia Total Creatine Kinase Troponin T C-Reactive Protein Total Protein Albumin Triglycerides LDL Cholesterol Direct HDL Cholesterol Arterial Blood Glucose Arterial Blood Ionized Calcium Urine WBC (Auto) Salicylates Crossmatch 08/02/20 08/02/20 08/02/20 17:20 23:13 Unknown WBC RBC 2.66 L Hgb 8.1 L Hct 23.9 L MCV MCH MCHC RDW 16.8 H Plt Count 110 L Seg Neuts % (Manual) Lymphocytes % (Manual) Seg Neutrophils # Man Lymphocytes # (Manual) PT INR ABG pH POC ABG pCO2 POC ABG pO2 ABG pO2 ABG O2 Saturation ABG Hemoglobin ABG Oxyhemoglobin ABG Sodium ABG Potassium ABG Chloride ABG Glucose Oxyhemoglobin Carboxyhemoglobin Sodium Potassium Chloride Carbon Dioxide BUN Creatinine Glucose POC Glucose 214 H 132 H Hemoglobin A1c Lactic Acid Calcium Ionized Calcium Phosphorus AST ALT Alkaline Phosphatase Ammonia Total Creatine Kinase Troponin T C-Reactive Protein Total Protein Albumin Triglycerides LDL Cholesterol Direct HDL Cholesterol Arterial Blood Glucose Arterial Blood Ionized Calcium Urine WBC (Auto) Salicylates Crossmatch 08/02/20 08/02/20 08/03/20 Unknown Unknown 02:59 WBC RBC Hgb Hct MCV MCH MCHC RDW Plt Count Seg Neuts % (Manual) Lymphocytes % (Manual) Seg Neutrophils # Man Lymphocytes # (Manual) PT INR ABG pH POC ABG pCO2 POC ABG pO2 ABG pO2 ABG O2 Saturation ABG Hemoglobin 8.1 L ABG Oxyhemoglobin ABG Sodium ABG Potassium ABG Chloride 113.0 H ABG Glucose 143 H Oxyhemoglobin Carboxyhemoglobin Sodium 150 H Potassium 3.5 L Chloride 115.9 H Carbon Dioxide BUN 42 H Creatinine Glucose 188 H POC Glucose Hemoglobin A1c Lactic Acid Calcium 7.8 L Ionized Calcium Phosphorus 2.30 L D AST ALT Alkaline Phosphatase Ammonia Total Creatine Kinase Troponin T C-Reactive Protein Total Protein Albumin Triglycerides LDL Cholesterol Direct HDL Cholesterol Arterial Blood Glucose 143 H Arterial Blood Ionized Calcium Urine WBC (Auto) Salicylates Crossmatch 08/03/20 08/03/20 08/03/20 04:16 04:16 05:12 WBC RBC 2.62 L Hgb 8.1 L Hct 24.1 L MCV MCH MCHC RDW 17.4 H Plt Count 118 L Seg Neuts % (Manual) Lymphocytes % (Manual) Seg Neutrophils # Man Lymphocytes # (Manual) PT INR ABG pH POC ABG pCO2 POC ABG pO2 ABG pO2 ABG O2 Saturation ABG Hemoglobin ABG Oxyhemoglobin ABG Sodium ABG Potassium ABG Chloride ABG Glucose Oxyhemoglobin Carboxyhemoglobin Sodium 148 H Potassium Chloride 114.5 H Carbon Dioxide BUN 47 H Creatinine Glucose 158 H POC Glucose 164 H Hemoglobin A1c Lactic Acid Calcium 8.1 L Ionized Calcium Phosphorus 2.30 L AST ALT Alkaline Phosphatase Ammonia Total Creatine Kinase Troponin T C-Reactive Protein Total Protein Albumin Triglycerides LDL Cholesterol Direct HDL Cholesterol Arterial Blood Glucose Arterial Blood Ionized Calcium Urine WBC (Auto) Salicylates Crossmatch 08/03/20 08/03/20 08/03/20 11:26 17:33 23:47 WBC RBC Hgb Hct MCV MCH MCHC RDW Plt Count Seg Neuts % (Manual) Lymphocytes % (Manual) Seg Neutrophils # Man Lymphocytes # (Manual) PT INR ABG pH POC ABG pCO2 POC ABG pO2 ABG pO2 ABG O2 Saturation ABG Hemoglobin ABG Oxyhemoglobin ABG Sodium ABG Potassium ABG Chloride ABG Glucose Oxyhemoglobin Carboxyhemoglobin Sodium Potassium Chloride Carbon Dioxide BUN Creatinine Glucose POC Glucose 190 H 235 H 194 H Hemoglobin A1c Lactic Acid Calcium Ionized Calcium Phosphorus AST ALT Alkaline Phosphatase Ammonia Total Creatine Kinase Troponin T C-Reactive Protein Total Protein Albumin Triglycerides LDL Cholesterol Direct HDL Cholesterol Arterial Blood Glucose Arterial Blood Ionized Calcium Urine WBC (Auto) Salicylates Crossmatch 08/04/20 08/04/20 08/04/20 03:00 03:00 04:14 WBC RBC Hgb Hct MCV MCH MCHC RDW Plt Count Seg Neuts % (Manual) Lymphocytes % (Manual) Seg Neutrophils # Man Lymphocytes # (Manual) PT INR ABG pH POC ABG pCO2 POC ABG pO2 79.5 L ABG pO2 ABG O2 Saturation ABG Hemoglobin 9.9 L ABG Oxyhemoglobin ABG Sodium ABG Potassium ABG Chloride 113.0 H ABG Glucose 227 H Oxyhemoglobin Carboxyhemoglobin 0.3 L Sodium Potassium Chloride 111.4 H Carbon Dioxide BUN 51 H Creatinine Glucose 218 H POC Glucose Hemoglobin A1c Lactic Acid Calcium Ionized Calcium Phosphorus AST ALT Alkaline Phosphatase Ammonia Total Creatine Kinase Troponin T C-Reactive Protein Total Protein Albumin Triglycerides 184 H LDL Cholesterol Direct HDL Cholesterol Arterial Blood Glucose 227 H Arterial Blood Ionized Calcium Urine WBC (Auto) Salicylates Crossmatch 08/04/20 08/04/20 08/04/20 05:17 11:52 11:53 WBC RBC Hgb Hct MCV MCH MCHC RDW Plt Count Seg Neuts % (Manual) Lymphocytes % (Manual) Seg Neutrophils # Man Lymphocytes # (Manual) PT INR ABG pH POC ABG pCO2 POC ABG pO2 ABG pO2 ABG O2 Saturation ABG Hemoglobin ABG Oxyhemoglobin ABG Sodium ABG Potassium ABG Chloride ABG Glucose Oxyhemoglobin Carboxyhemoglobin Sodium Potassium Chloride Carbon Dioxide BUN Creatinine Glucose POC Glucose 224 H 253 H 237 H Hemoglobin A1c Lactic Acid Calcium Ionized Calcium Phosphorus AST ALT Alkaline Phosphatase Ammonia Total Creatine Kinase Troponin T C-Reactive Protein Total Protein Albumin Triglycerides LDL Cholesterol Direct HDL Cholesterol Arterial Blood Glucose Arterial Blood Ionized Calcium Urine WBC (Auto) Salicylates Crossmatch 08/04/20 08/04/20 08/04/20 15:35 16:25 17:45 WBC 21.5 H RBC 2.10 L Hgb 7.3 L Hct 22.0 L MCV MCH 33 H MCHC 37 H RDW 17.2 H Plt Count 133 L Seg Neuts % (Manual) Lymphocytes % (Manual) Seg Neutrophils # Man Lymphocytes # (Manual) PT INR ABG pH POC ABG pCO2 POC ABG pO2 ABG pO2 ABG O2 Saturation ABG Hemoglobin ABG Oxyhemoglobin ABG Sodium ABG Potassium ABG Chloride ABG Glucose Oxyhemoglobin Carboxyhemoglobin Sodium Potassium Chloride Carbon Dioxide BUN Creatinine Glucose POC Glucose 230 H 218 H Hemoglobin A1c Lactic Acid Calcium Ionized Calcium Phosphorus AST ALT Alkaline Phosphatase Ammonia Total Creatine Kinase Troponin T C-Reactive Protein Total Protein Albumin Triglycerides LDL Cholesterol Direct HDL Cholesterol Arterial Blood Glucose Arterial Blood Ionized Calcium Urine WBC (Auto) Salicylates Crossmatch 08/04/20 08/05/20 08/05/20 23:11 03:28 05:25 WBC RBC Hgb Hct MCV MCH MCHC RDW Plt Count Seg Neuts % (Manual) Lymphocytes % (Manual) Seg Neutrophils # Man Lymphocytes # (Manual) PT INR ABG pH POC ABG pCO2 POC ABG pO2 82.1 L ABG pO2 ABG O2 Saturation ABG Hemoglobin 8.6 L ABG Oxyhemoglobin 93.7 L ABG Sodium ABG Potassium ABG Chloride 113.0 H ABG Glucose 205 H Oxyhemoglobin Carboxyhemoglobin Sodium Potassium Chloride Carbon Dioxide BUN Creatinine Glucose POC Glucose 198 H 213 H Hemoglobin A1c Lactic Acid Calcium Ionized Calcium Phosphorus AST ALT Alkaline Phosphatase Ammonia Total Creatine Kinase Troponin T C-Reactive Protein Total Protein Albumin Triglycerides LDL Cholesterol Direct HDL Cholesterol Arterial Blood Glucose 205 H Arterial Blood Ionized Calcium Urine WBC (Auto) Salicylates Crossmatch 08/05/20 08/05/20 08/05/20 08:48 08:48 10:55 WBC 14.3 H RBC 2.76 L Hgb 8.1 L Hct 24.8 L MCV MCH MCHC RDW 17.4 H Plt Count 138 L Seg Neuts % (Manual) 97.0 H Lymphocytes % (Manual) 1.0 L Seg Neutrophils # Man 13.9 H Lymphocytes # (Manual) 0.1 L PT INR ABG pH POC ABG pCO2 POC ABG pO2 158.7 H ABG pO2 ABG O2 Saturation ABG Hemoglobin 7.8 L ABG Oxyhemoglobin ABG Sodium ABG Potassium ABG Chloride 114.0 H ABG Glucose 242 H Oxyhemoglobin Carboxyhemoglobin Sodium 146 H Potassium Chloride 110.1 H Carbon Dioxide BUN 56 H Creatinine Glucose 219 H POC Glucose Hemoglobin A1c Lactic Acid Calcium Ionized Calcium Phosphorus AST ALT Alkaline Phosphatase 192 H Ammonia Total Creatine Kinase Troponin T C-Reactive Protein Total Protein 5.8 L Albumin 2.0 L Triglycerides LDL Cholesterol Direct HDL Cholesterol Arterial Blood Glucose 242 H Arterial Blood Ionized Calcium Urine WBC (Auto) Salicylates Crossmatch 08/05/20 08/05/20 08/05/20 11:12 11:30 17:08 WBC RBC Hgb Hct MCV MCH MCHC RDW Plt Count Seg Neuts % (Manual) Lymphocytes % (Manual) Seg Neutrophils # Man Lymphocytes # (Manual) PT INR ABG pH POC ABG pCO2 POC ABG pO2 147.5 H ABG pO2 ABG O2 Saturation ABG Hemoglobin 7.5 L ABG Oxyhemoglobin 98.1 H ABG Sodium ABG Potassium ABG Chloride 113.0 H ABG Glucose 248 H Oxyhemoglobin Carboxyhemoglobin Sodium Potassium Chloride Carbon Dioxide BUN Creatinine Glucose POC Glucose 238 H 239 H Hemoglobin A1c Lactic Acid Calcium Ionized Calcium Phosphorus AST ALT Alkaline Phosphatase Ammonia Total Creatine Kinase Troponin T C-Reactive Protein Total Protein Albumin Triglycerides LDL Cholesterol Direct HDL Cholesterol Arterial Blood Glucose 248 H Arterial Blood Ionized Calcium Urine WBC (Auto) Salicylates Crossmatch 08/05/20 08/05/20 08/06/20 23:17 Unknown 05:12 WBC RBC Hgb Hct MCV MCH MCHC RDW Plt Count Seg Neuts % (Manual) Lymphocytes % (Manual) Seg Neutrophils # Man Lymphocytes # (Manual) PT INR ABG pH POC ABG pCO2 POC ABG pO2 ABG pO2 ABG O2 Saturation ABG Hemoglobin ABG Oxyhemoglobin ABG Sodium ABG Potassium ABG Chloride ABG Glucose Oxyhemoglobin Carboxyhemoglobin Sodium Potassium Chloride 109.2 H Carbon Dioxide BUN 51 H Creatinine Glucose 229 H POC Glucose 200 H 145 H Hemoglobin A1c Lactic Acid Calcium Ionized Calcium Phosphorus AST ALT Alkaline Phosphatase Ammonia Total Creatine Kinase Troponin T C-Reactive Protein Total Protein Albumin Triglycerides LDL Cholesterol Direct HDL Cholesterol Arterial Blood Glucose Arterial Blood Ionized Calcium Urine WBC (Auto) Salicylates Crossmatch 08/06/20 08/06/20 08/06/20 05:21 10:00 11:28 WBC RBC Hgb Hct MCV MCH MCHC RDW Plt Count Seg Neuts % (Manual) Lymphocytes % (Manual) Seg Neutrophils # Man Lymphocytes # (Manual) PT INR ABG pH 7.301 L 7.308 L POC ABG pCO2 49.5 H 49.1 H POC ABG pO2 178.4 H ABG pO2 ABG O2 Saturation ABG Hemoglobin 7.5 L 7.1 L ABG Oxyhemoglobin 98.8 H ABG Sodium ABG Potassium ABG Chloride 112.0 H 112.0 H ABG Glucose 149 H 162 H Oxyhemoglobin Carboxyhemoglobin Sodium Potassium Chloride Carbon Dioxide BUN Creatinine Glucose POC Glucose 158 H Hemoglobin A1c Lactic Acid Calcium Ionized Calcium Phosphorus AST ALT Alkaline Phosphatase Ammonia Total Creatine Kinase Troponin T C-Reactive Protein Total Protein Albumin Triglycerides LDL Cholesterol Direct HDL Cholesterol Arterial Blood Glucose 149 H 162 H Arterial Blood Ionized Calcium Urine WBC (Auto) Salicylates Crossmatch 08/06/20 08/06/20 08/06/20 17:42 23:56 Unknown WBC 13.0 H RBC 2.38 L Hgb 7.1 L Hct 21.5 L MCV MCH MCHC RDW 17.6 H Plt Count Seg Neuts % (Manual) Lymphocytes % (Manual) Seg Neutrophils # Man Lymphocytes # (Manual) PT INR ABG pH POC ABG pCO2 POC ABG pO2 ABG pO2 ABG O2 Saturation ABG Hemoglobin ABG Oxyhemoglobin ABG Sodium ABG Potassium ABG Chloride ABG Glucose Oxyhemoglobin Carboxyhemoglobin Sodium Potassium Chloride Carbon Dioxide BUN Creatinine Glucose POC Glucose 179 H 259 H Hemoglobin A1c Lactic Acid Calcium Ionized Calcium Phosphorus AST ALT Alkaline Phosphatase Ammonia Total Creatine Kinase Troponin T C-Reactive Protein Total Protein Albumin Triglycerides LDL Cholesterol Direct HDL Cholesterol Arterial Blood Glucose Arterial Blood Ionized Calcium Urine WBC (Auto) Salicylates Crossmatch 08/07/20 08/07/20 08/07/20 04:00 04:05 04:05 WBC RBC 2.32 L Hgb 7.1 L Hct 20.9 L MCV MCH MCHC RDW 17.9 H Plt Count Seg Neuts % (Manual) Lymphocytes % (Manual) Seg Neutrophils # Man Lymphocytes # (Manual) PT INR ABG pH POC ABG pCO2 POC ABG pO2 150.6 H ABG pO2 ABG O2 Saturation ABG Hemoglobin 8.0 L ABG Oxyhemoglobin 98.4 H ABG Sodium 146.7 H ABG Potassium ABG Chloride 114.0 H ABG Glucose 201 H Oxyhemoglobin Carboxyhemoglobin Sodium 151 H Potassium Chloride 114.3 H Carbon Dioxide BUN 63 H Creatinine Glucose 198 H POC Glucose Hemoglobin A1c Lactic Acid Calcium Ionized Calcium Phosphorus AST 54 H ALT Alkaline Phosphatase 213 H Ammonia Total Creatine Kinase Troponin T C-Reactive Protein Total Protein 6.1 L Albumin 2.0 L Triglycerides LDL Cholesterol Direct HDL Cholesterol Arterial Blood Glucose 201 H Arterial Blood Ionized Calcium Urine WBC (Auto) Salicylates Crossmatch 08/07/20 08/07/20 08/07/20 05:34 11:43 14:30 WBC RBC Hgb Hct MCV MCH MCHC RDW Plt Count Seg Neuts % (Manual) Lymphocytes % (Manual) Seg Neutrophils # Man Lymphocytes # (Manual) PT INR ABG pH POC ABG pCO2 POC ABG pO2 ABG pO2 62.9 L ABG O2 Saturation 86.7 L ABG Hemoglobin 7.1 L ABG Oxyhemoglobin ABG Sodium ABG Potassium ABG Chloride ABG Glucose Oxyhemoglobin 85.0 L Carboxyhemoglobin Sodium Potassium Chloride Carbon Dioxide BUN Creatinine Glucose POC Glucose 160 H 201 H Hemoglobin A1c Lactic Acid Calcium Ionized Calcium Phosphorus AST ALT Alkaline Phosphatase Ammonia Total Creatine Kinase Troponin T C-Reactive Protein Total Protein Albumin Triglycerides LDL Cholesterol Direct HDL Cholesterol Arterial Blood Glucose Arterial Blood Ionized Calcium Urine WBC (Auto) Salicylates Crossmatch 08/07/20 08/07/20 08/08/20 17:57 23:12 05:38 WBC RBC Hgb Hct MCV MCH MCHC RDW Plt Count Seg Neuts % (Manual) Lymphocytes % (Manual) Seg Neutrophils # Man Lymphocytes # (Manual) PT INR ABG pH POC ABG pCO2 POC ABG pO2 ABG pO2 ABG O2 Saturation ABG Hemoglobin ABG Oxyhemoglobin ABG Sodium ABG Potassium ABG Chloride ABG Glucose Oxyhemoglobin Carboxyhemoglobin Sodium Potassium Chloride Carbon Dioxide BUN Creatinine Glucose POC Glucose 242 H 246 H 135 H Hemoglobin A1c Lactic Acid Calcium Ionized Calcium Phosphorus AST ALT Alkaline Phosphatase Ammonia Total Creatine Kinase Troponin T C-Reactive Protein Total Protein Albumin Triglycerides LDL Cholesterol Direct HDL Cholesterol Arterial Blood Glucose Arterial Blood Ionized Calcium Urine WBC (Auto) Salicylates Crossmatch 08/08/20 08/08/20 08/08/20 09:49 11:40 17:28 WBC RBC Hgb Hct MCV MCH MCHC RDW Plt Count Seg Neuts % (Manual) Lymphocytes % (Manual) Seg Neutrophils # Man Lymphocytes # (Manual) PT INR ABG pH POC ABG pCO2 POC ABG pO2 ABG pO2 ABG O2 Saturation ABG Hemoglobin 6.9 L ABG Oxyhemoglobin ABG Sodium 146.1 H ABG Potassium ABG Chloride 114.0 H ABG Glucose 192 H Oxyhemoglobin Carboxyhemoglobin Sodium Potassium Chloride Carbon Dioxide BUN Creatinine Glucose POC Glucose 187 H 175 H Hemoglobin A1c Lactic Acid Calcium Ionized Calcium Phosphorus AST ALT Alkaline Phosphatase Ammonia Total Creatine Kinase Troponin T C-Reactive Protein Total Protein Albumin Triglycerides LDL Cholesterol Direct HDL Cholesterol Arterial Blood Glucose 192 H Arterial Blood Ionized Calcium Urine WBC (Auto) Salicylates Crossmatch 08/09/20 08/09/20 03:41 06:10 WBC RBC Hgb Hct MCV MCH MCHC RDW Plt Count Seg Neuts % (Manual) Lymphocytes % (Manual) Seg Neutrophils # Man Lymphocytes # (Manual) PT INR ABG pH POC ABG pCO2 POC ABG pO2 ABG pO2 ABG O2 Saturation ABG Hemoglobin 6.9 L ABG Oxyhemoglobin ABG Sodium 145.8 H ABG Potassium 4.6 H ABG Chloride 113.0 H ABG Glucose 113 H Oxyhemoglobin Carboxyhemoglobin Sodium Potassium Chloride Carbon Dioxide BUN Creatinine Glucose POC Glucose 118 H Hemoglobin A1c Lactic Acid Calcium Ionized Calcium Phosphorus AST ALT Alkaline Phosphatase Ammonia Total Creatine Kinase Troponin T C-Reactive Protein Total Protein Albumin Triglycerides LDL Cholesterol Direct HDL Cholesterol Arterial Blood Glucose 113 H Arterial Blood Ionized Calcium Urine WBC (Auto) Salicylates Crossmatch Allied health notes reviewed: nursing
[2020-08-09] MEDS: METOPROLOL TARTRATE 25 MG TAB PO SCH ×2 (12:43→21:43)
[2020-08-09] MEDS: cefTRIAXone/NS 2 GM/100 ML 2 GM/100 ML BAG IV SCH (12:44)
--- NOTE | 2020-08-09 14:18 | Electrocardiograph Report ---
[facility] Test Date: 2020-08-08 Test Time: 16:37:20 Pat Name: PRANAV PORTER Department: Room: A252 1 Gender: M [employer]: : 1950 Requested By: OSMIN DURBIN Order Number: [id number] Reading MD: Saundra Mccray Measurements Intervals [place]er Rate: 124 P: 86 PA: 134 QRS: 53 QRSD: 63 T: 30 QT: 262 QTc: 377 Interpretive Statements Sinus tachycardia with frequent PACs Or multifocal atrial tachycardia Anteroseptal infarct, age indeterminate Compared to ECG 08/06/2020 08:38:18 Frequent PACs are now evident Electronically Signed On 08-09-2020 14:18:33 EDT by Saundra Mccray
[2020-08-09] MEDS: FLUCONAZOLE 400 MG 200 ML IV SCH (14:29)
[2020-08-09 15:02] LABS: BUN/Creatinine Ratio 57; Blood Urea Nitrogen 74 mg/dL (9-20); Calcium 8.4 mg/dL (8.4-10.2); Hemolysis Index 12
[2020-08-09 16:33] LABS: Hematocrit 31.6 % (35.5-45.6); Hemoglobin 10.5 gm/dl (11.8-15.2); Mean Corpuscular HGB Conc 33 % (32-34); Mean Corpuscular Volume 89 fl (84-94); Platelet Count 125 K/mm3 (140-440); Red Blood Count 3.58 M/mm3 (3.65-5.03); Red Cell Distribution Width 17.8 % (13.2-15.2)
[2020-08-09] MEDS: SODIUM CHLORIDE 0.45% 1000 ML 1,000 ML IV SCH (19:27)
--- NOTE | 2020-08-09 20:57 | Consultation ---
History of Present Illness Consult date: 08/09/20 Chief complaint: Needs tracheostomy - History of present illness History of present illness: 69 yo male with respiratory failure. Pt needs a tracheostomy. Past History Past Medical History: other (See HPI) Past Surgical History: No surgical history, Other (Unable to obtain) Social history: single. denies: smoking, alcohol abuse, prescription drug abuse Family history: diabetes, hypertension Medications and Allergies Allergies Allergy/AdvReac Type Severity Reaction Status Date / Time No Known Allergies Allergy Unverified 07/28/20 15:17 Home Medications Medication Instructions Recorded Confirmed Last Taken Type Apixaban [Eliquis] 5 mg FEEDTUBE BID 08/07/20 08/07/20 Unknown History Ascorbic Acid 500 mg FEEDTUBE DAILY 08/07/20 08/07/20 Unknown History Dantrolene [Dantrium] 25 mg FEEDTUBE TID 08/07/20 08/07/20 Unknown History Exenatide Microspheres [Bydureon] 2 mg SQ QWEEK 08/07/20 08/07/20 Unknown History Insulin Glargine [Lantus VIAL] 30 units SQ QHS 08/07/20 08/07/20 Unknown History Insulin Lispro See Protocol SQ TID 08/07/20 08/07/20 Unknown History Januvia 100 mg FEEDTUBE DAILY 08/07/20 08/07/20 Unknown History Metoclopramide [Reglan ORAL LIQ] 5 mg FEEDTUBE TID 08/07/20 08/07/20 Unknown History Miralax 2 tab FEEDTUBE QHS 08/07/20 08/07/20 Unknown History Multivit-Min/Iron/Folic Acid/K 1 mg FEEDTUBE DAILY 08/07/20 08/07/20 Unknown History [Adults Multivitamin Tablet] Pioglitazone HCl [Actos] 45 mg FEEDTUBE DAILY 08/07/20 08/07/20 Unknown History glipiZIDE [Glucotrol] 5 mg FEEDTUBE DAILY 08/07/20 08/07/20 Unknown History Active Meds: Active Medications Acetaminophen (Acetaminophen 325 Mg Tab) 650 mg PO Q6H PRN PRN Reason: Pain, Mild (1-3) Last Admin: 08/08/20 21:50 Dose: 650 mg Documented by: Albuterol (Albuterol 2.5 Mg/3 Ml Nebu) 2.5 mg IH Q3H PRN PRN Reason: Shortness Of Breath Last Admin: 08/05/20 14:27 Dose: 2.5 mg Documented by: Amlodipine Besylate (Amlodipine 5 Mg Tab) 5 mg PO QDAY [facility] Last Admin: 08/09/20 09:31 Dose: 5 mg Documented by: Lipase/Protease/Amylase (Lipase 10,500/Protease 25,000/Amylase 43,750 (Units) Dr Velasquez) 1 each FEEDTUBE PRN PRN PRN Reason: For Clogged Feeding Tube Ascorbic Acid (Ascorbic Acid 500 Mg Tab) 500 mg PO BID [facility] Last Admin: 08/09/20 09:31 Dose: 500 mg Documented by: Dextrose (Dextrose 50% In Water (25gm) 50 Ml Syringe) 50 ml IV Q30MIN PRN; Protocol PRN Reason: Hypoglycemia Enoxaparin Sodium (Enoxaparin 40 Mg/0.4 Ml Inj) 40 mg SUB-Q QDAY@1000 [place] Last Admin: 08/09/20 09:31 Dose: 40 mg Documented by: Famotidine (Famotidine 20 Mg Tab) 20 mg PO BID [facility] Last Admin: 08/09/20 09:31 Dose: 20 mg Documented by: Hydralazine HCl (Hydralazine 20 Mg/1 Ml Inj) 10 mg IV Q4HR PRN PRN Reason: Give if SBP>180 DBP>100 Hydromorphone HCl (Hydromorphone 1 Mg/1 Ml Inj) 1 mg IV Q4H PRN PRN Reason: Pain , Severe (7-10) Last Admin: 08/08/20 19:27 Dose: 1 mg Documented by: Hydrophilic Ointment (Lip Therapy Vaseline) 1 applic TP Q2H PRN PRN Reason: Dry Lips Fluconazole (Diflucan) 200 mls @ 100 mls/hr IV Q24H [facility]; Protocol Stop: 08/14/20 16:59 Last Admin: 08/09/20 14:29 Dose: 100 mls/hr Documented by: Ceftriaxone Sodium (Rocephin/Ns 2 Gm/100 Ml) 2 gm in 100 mls @ 200 mls/hr IV Q24HR [facility]; Protocol Last Admin: 08/09/20 12:44 Dose: 200 mls/hr Documented by: Sodium Chloride (Nacl 0.45% 1000 Ml) 1,000 mls @ 75 mls/hr IV DIRECT [facility] Stop: 08/11/20 04:19 Last Admin: 08/09/20 19:27 Dose: 75 mls/hr Documented by: Insulin Glargine (Insulin Glargine 100 Units/Ml) 25 units SUB-Q QDAY [facility] Last Admin: 08/09/20 09:32 Dose: 25 units Documented by: Insulin Human Lispro (Insulin Lispro 100 Unit/Ml) 0 unit SUB-Q Q6HR [facility]; Protocol Last Admin: 08/09/20 18:00 Dose: Not Given Documented by: Metoprolol Tartrate (Metoprolol Tartrate 25 Mg Tab) 12.5 mg PO BID [facility] Last Admin: 08/09/20 12:43 Dose: 12.5 mg Documented by: Multi-Ingred Cream/Lotion/Oil/Oint (Mineral Oil/Petrolatum, White Ophth Oint 3.5 Gm) 1 applic OU Q4H PRN PRN Reason: Dry Eye(s) Scopolamine (Scopolamine Transdermal Patch 72 Hr) 1 each TD Q3D [facility] Last Admin: 08/07/20 15:05 Dose: 1 each Documented by: Senna/Docusate Sodium (Sennosides/Docusate Sodium 8.6/50 Mg Tab) 1 tab FEEDTUBE BID [facility] Last Admin: 08/09/20 09:31 Dose: 1 tab Documented by: Simple Syrup (Simple Syrup 15 Ml) 15 ml FEEDTUBE PRN PRN PRN Reason: Hypoglycemia Simple Syrup (Simple Syrup 15 Ml) 30 ml FEEDTUBE PRN PRN PRN Reason: Hypoglycemia Sodium Bicarbonate (Sodium Bicarbonate 325 Mg Tab) 325 mg FEEDTUBE PRN PRN PRN Reason: For Clogged Feeding Tube Sodium Chloride (Sodium Chloride 0.9% 10 Ml Flush Syringe) 10 ml IV BID [facility] Last Admin: 08/09/20 09:32 Dose: 10 ml Documented by: Sodium Chloride (Sodium Chloride 0.9% 10 Ml Flush Syringe) 10 ml IV PRN PRN PRN Reason: LINE FLUSH Zinc Sulfate (Zinc Sulfate 220 Mg Cap) 220 mg PO BID [facility] Last Admin: 08/09/20 09:31 Dose: 220 mg Documented by: Review of Systems ROS unobtainable: due to endotracheal tube Exam Vital Signs Temp Pulse Resp BP Pulse Ox 106 F H 114 H 12 114/64 92 07/28/20 09:00 07/28/20 09:00 07/28/20 09:00 07/28/20 09:00 07/28/20 09:00 - General physical appearance Positive: well developed, well nourished, no distress - Eyes Positive: PERRL, normal occular movement - ENT Positive: normal pinna, normal nares, normal mucosa, no hearing loss, no congestion - Neck Positive: no masses, no bruits, trachea midline, no venous distension - Respiratory Positive: normal expansion, normal respiratory effort, clear to auscultation - Cardiovascular Rhythm: regular Heart Sounds: Present: S1 & S2. Absent: rub, click - Extremities Extremities: no ischemia, pulses symmetrical, No edema - Breasts Breasts: normal, no mass, no skin changes - Abdomen Abdomen: Present: soft, bowel sounds normal. Absent: tender, distended Hernia: none - Genitourinary Male Genitourinary: normal Female Genitourinary: normal - Integumentary no rash, no growths, no abnormal pigmentation Results - Labs 08/09/20 14:05 08/09/20 14:05 Abnormal lab results 08/09/20 08/09/20 08/09/20 Range/Units 03:41 06:10 11:58 RBC (3.65-5.03) M/mm3 Hgb (11.8-15.2) gm/dl Hct (35.5-45.6) % RDW (13.2-15.2) % Plt Count (140-440) K/mm3 ABG Hemoglobin 6.9 L (12.0-17.5) ABG Sodium 145.8 H (136.0-145.0) mmol/L ABG Potassium 4.6 H (3.40-4.50) mmol/L ABG Chloride 113.0 H (98-107) mmol/L ABG Glucose 113 H (65-95) mg/dL Chloride (98-107) mmol/L BUN (9-20) mg/dL Glucose (75-100) mg/dL POC Glucose 118 H 124 H (70-105) mg/dL Arterial Blood Glucose 113 H (65-95) mg/dL 08/09/20 08/09/20 08/09/20 Range/Units 14:05 14:05 17:42 RBC 3.58 L (3.65-5.03) M/mm3 Hgb 10.5 L D (11.8-15.2) gm/dl Hct 31.6 L D (35.5-45.6) % RDW 17.8 H (13.2-15.2) % Plt Count 125 L (140-440) K/mm3 ABG Hemoglobin (12.0-17.5) ABG Sodium (136.0-145.0) mmol/L ABG Potassium (3.40-4.50) mmol/L ABG Chloride (98-107) mmol/L ABG Glucose (65-95) mg/dL Chloride 111.2 H (98-107) mmol/L BUN 74 H (9-20) mg/dL Glucose 137 H (75-100) mg/dL POC Glucose 139 H (70-105) mg/dL Arterial Blood Glucose (65-95) mg/dL Diabetes panel 08/09/20 Range/Units 14:05 Sodium 145 (137-145) mmol/L Potassium 4.7 D (3.6-5.0) mmol/L Chloride 111.2 H (98-107) mmol/L Carbon Dioxide 27 (22-30) mmol/L BUN 74 H (9-20) mg/dL Creatinine 1.3 (0.8-1.3) mg/dL Glucose 137 H (75-100) mg/dL Calcium 8.4 (8.4-10.2) mg/dL Calcium panel 08/09/20 Range/Units 14:05 Calcium 8.4 (8.4-10.2) mg/dL Pituitary panel 08/09/20 Range/Units 14:05 Sodium 145 (137-145) mmol/L Potassium 4.7 D (3.6-5.0) mmol/L Chloride 111.2 H (98-107) mmol/L Carbon Dioxide 27 (22-30) mmol/L BUN 74 H (9-20) mg/dL Creatinine 1.3 (0.8-1.3) mg/dL Glucose 137 H (75-100) mg/dL Calcium 8.4 (8.4-10.2) mg/dL Adrenal panel 08/09/20 Range/Units 14:05 Sodium 145 (137-145) mmol/L Potassium 4.7 D (3.6-5.0) mmol/L Chloride 111.2 H (98-107) mmol/L Carbon Dioxide 27 (22-30) mmol/L BUN 74 H (9-20) mg/dL Creatinine 1.3 (0.8-1.3) mg/dL Glucose 137 H (75-100) mg/dL Calcium 8.4 (8.4-10.2) mg/dL INR 2.17 on 07/28/20. Assessment and Plan - Patient Problems (1) Acute respiratory failure Current Visit: Yes Status: Acute Qualifiers: Respiratory failure complication: hypoxia Qualified Code(s): J96.01 - Acute respiratory failure with hypoxia Plan to address problem: 1) Check INR 2) NPO after MN 3) Will discuss with family. 4) Will probably need PEG as well.
[2020-08-09 22:02] LABS: INR 1.17 (0.87-1.13)
[2020-08-10] MEDS: INSULIN LISPRO 100 UNIT/ML SUB-Q SCH ×4 (00:06→18:39)
[2020-08-10] MEDS: FREE WATER PO SCH ×8 (03:05→23:21)
--- NOTE | 2020-08-10 09:08 | Progress Note ---
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 propofol. Percent of energy/protein needs met: 96% energy 100% pro Burn Absent Trauma Absent #2 Nutrition Diagnosis Increased nutrient needs ( specify in comment below) Diagnosis Progress(for reassessment Continues documentation) #1 Nutrition Diagnosis Inadequate oral intake Diagnosis Progress(for reassessment Continues documentation) Is patient on ventilator? Yes Is Patient Ambulatory and/or Out of Bed No REE-([place]-[facility] Jeor-confined to bed) 1943.100 Calculation Used for Recommendations [facility] Additional Notes Pro needs 1.2-2g/k-163g/ day Fluid needs 1ml/kcal Nutrition Intervention Nutrition Support: Continue Vital AF 1.2 at 65ml/ hr with 100 ml water flush q4h . Kcal 1,872 Protein (gm) 117 Fluid (mL) 1,265 Add Supplement/Snack (indicate name/kcal Reji BID /protein ) Provides kCal: 190 Provides Protein (gm) 5 Goal #1 TF tolerance Goal #2 TF to meet 80-100% energy and pro needs Follow-Up By: 08/10/20 Additional Comments F/U: stable TF, vent status, Reji administration
--- NOTE | 2020-08-10 10:33 | Progress Note ---
Assessment and Plan - Patient Problems (1) Bradycardia Current Visit: Yes Status: Acute Plan to address problem: No further bradycardia. An echocardiogram this presentation showed well-preserved left ventricular systolic function with ejection fraction 50 to 55%. Will continue supportive cardiac management. Subjective Date of service: 08/10/20 Principal diagnosis: Ac. encephalopathy; Ac. hypoxemic resp failure; Septic Shock; PNA; UTI; [place] Interval history: Patient remains intubated on mechanical ventilation. Currently, stable sinus rhythm on telemetry monitoring. Objective Vital Signs Temp Pulse Pulse Resp BP Pulse Ox 08/10/20 09:50 90 23 138/57 100 08/10/20 08:15 82 27 H 100 08/10/20 08:01 83 25 H 100 08/10/20 08:00 91 H 83 25 H 100 08/10/20 07:45 82 26 H 99 08/10/20 07:31 81 26 H 100 08/10/20 07:15 85 28 H 100 08/10/20 07:07 87 136/58 100 08/10/20 07:01 92 H 26 H 100 08/10/20 06:45 86 23 100 08/10/20 06:31 87 25 H 100 08/10/20 06:15 92 H 26 H 100 08/10/20 06:01 98 H 23 100 08/10/20 06:00 86 27 H 99 08/10/20 05:45 91 H 27 H 100 08/10/20 05:31 91 H 21 100 08/10/20 05:15 91 H 27 H 100 08/10/20 05:01 96 H 25 H 100 08/10/20 04:45 97 H 27 H 99 08/10/20 04:31 96 H 20 100 08/10/20 04:27 100 H 24 100 08/10/20 04:20 94 H 19 99 08/10/20 04:00 94 H 22 100 08/10/20 03:46 100 H 25 H 100 08/10/20 03:30 95 H 26 H 100 08/10/20 03:20 98 H 148/62 100 08/10/20 03:16 98.5 F 95 H 26 H 100 08/10/20 03:05 98.5 F 81 108 H 27 H 99 08/10/20 03:00 81 26 H 100 08/10/20 02:46 105 H 28 H 100 08/10/20 02:30 98 H 27 H 100 08/10/20 02:16 98 H 27 H 100 08/10/20 02:00 102 H 21 08/10/20 01:46 95 H 25 H 08/10/20 01:40 86 111 H 27 H 99 08/10/20 01:30 86 18 100 08/10/20 01:16 101 H 29 H 100 08/10/20 01:00 101 H 28 H 99 08/10/20 00:46 102 H 29 H 99 08/10/20 00:30 101 H 26 H 99 08/10/20 00:16 105 H 30 H 99 08/10/20 00:00 98 H 104 H 25 H 99 08/09/20 23:58 97 H 145/53 99 08/09/20 23:56 100 H 26 H 98 08/09/20 23:51 100 H 08/09/20 23:46 100 H 19 98 08/09/20 23:43 99.6 F 08/09/20 23:30 85 24 99 08/09/20 23:16 106 H 26 H 100 08/09/20 23:05 106 H 27 H 99 08/09/20 23:00 104 H 25 H 99 08/09/20 22:46 100 H 29 H 99 08/09/20 22:30 101 H 29 H 99 08/09/20 22:16 97 H 28 H 99 08/09/20 22:00 112 H 30 H 99 08/09/20 21:46 115 H 32 H 99 08/09/20 21:43 118 H 167/63 08/09/20 21:40 110 H 112 H 27 H 99 08/09/20 21:30 115 H 30 H 97 08/09/20 21:16 120 H 23 98 08/09/20 21:00 113 H 31 H 97 08/09/20 20:50 115 H 27 H 99 08/09/20 20:46 111 H 28 H 97 08/09/20 20:30 109 H 32 H 96 08/09/20 20:20 98.6 F 08/09/20 20:16 105 H 30 H 96 08/09/20 20:00 106 H 27 H 97 08/09/20 19:54 106 H 156/60 97 08/09/20 19:46 107 H 25 H 97 08/09/20 19:40 99.3 F 08/09/20 19:30 106 H 26 H 97 08/09/20 19:16 114 H 29 H 97 08/09/20 19:00 115 H 26 H 97 08/09/20 18:50 110 H 111 H 22 99 08/09/20 18:46 110 H 25 H 98 08/09/20 18:30 108 H 28 H 97 08/09/20 18:16 110 H 26 H 97 08/09/20 18:00 111 H 21 96 08/09/20 17:46 107 H 25 H 97 08/09/20 17:30 106 H 24 96 08/09/20 17:16 81 24 97 08/09/20 17:00 112 H 25 H 97 08/09/20 16:46 104 H 28 H 96 08/09/20 16:30 109 H 28 H 96 08/09/20 16:16 105 H 26 H 97 08/09/20 16:05 99.1 F 08/09/20 16:00 104 H 104 H 22 96 08/09/20 15:46 103 H 23 96 08/09/20 15:42 94 H 151/60 96 08/09/20 15:30 97 H 28 H 95 08/09/20 15:16 106 H 21 97 08/09/20 15:00 101 H 24 98 08/09/20 14:46 101 H 24 97 08/09/20 14:30 96 H 26 H 94 08/09/20 14:16 94 H 25 H 96 08/09/20 14:00 91 H 23 96 08/09/20 13:46 98 H 27 H 96 08/09/20 13:30 108 H 21 97 08/09/20 13:16 108 H 26 H 97 08/09/20 13:00 117 H 29 H 97 08/09/20 12:46 111 H 25 H 96 08/09/20 12:43 112 H 08/09/20 12:30 109 H 27 H 96 08/09/20 12:16 115 H 27 H 96 08/09/20 12:00 118 H 118 H 24 96 08/09/20 11:46 115 H 25 H 97 08/09/20 11:34 116 H 151/60 97 08/09/20 11:30 120 H 28 H 97 08/09/20 11:16 112 H 28 H 96 08/09/20 11:00 107 H 27 H 96 08/09/20 10:46 115 H 25 H 97 - Physical Examination General: Other (On the vent) Cardiac: Positive: Reg Rate and Rhythm Neuro: Positive: Other (Patient intubated, on the vent, history of quadriplegia) - Labs and Meds Coagulation 08/09/20 Range/Units 21:25 PT 15.5 H (12.2-14.9) Sec. INR 1.17 H (0.87-1.13) CBC 08/09/20 Range/Units 14:05 WBC 6.5 (4.5-11.0) K/mm3 RBC 3.58 L (3.65-5.03) M/mm3 Hgb 10.5 L D (11.8-15.2) gm/dl Hct 31.6 L D (35.5-45.6) % Plt Count 125 L (140-440) K/mm3 Comprehensive Metabolic Panel 08/09/20 Range/Units 14:05 Sodium 145 (137-145) mmol/L Potassium 4.7 D (3.6-5.0) mmol/L Chloride 111.2 H (98-107) mmol/L Carbon Dioxide 27 (22-30) mmol/L BUN 74 H (9-20) mg/dL Creatinine 1.3 (0.8-1.3) mg/dL Glucose 137 H (75-100) mg/dL Calcium 8.4 (8.4-10.2) mg/dL - Allied health notes Allied health notes reviewed: nursing
[2020-08-10] MEDS: cefTRIAXone/NS 2 GM/100 ML 2 GM/100 ML BAG IV SCH (10:49)
[2020-08-10] MEDS: SODIUM CHLORIDE 0.45% 1000 ML 1,000 ML IV SCH (10:49)
[2020-08-10] MEDS: ASCORBIC ACID 500 MG TAB PO SCH ×2 (10:50→22:02)
[2020-08-10] MEDS: SENNOSIDES/DOCUSATE SODIUM 8.6/50 MG TAB FEEDTUBE SCH ×2 (10:50→22:02)
[2020-08-10] MEDS: METOPROLOL TARTRATE 25 MG TAB PO SCH ×2 (10:50→22:02)
[2020-08-10] MEDS: FAMOTIDINE 20 MG TAB PO SCH ×2 (10:50→22:02)
[2020-08-10] MEDS: ENOXAPARIN 40 MG/0.4 ML INJ SUB-Q SCH (10:50)
[2020-08-10] MEDS: ZINC SULFATE 220 MG CAP PO SCH ×2 (10:50→22:02)
[2020-08-10] MEDS: amLODIPine 5 MG TAB PO SCH (10:50)
[2020-08-10] MEDS: INSULIN GLARGINE 100 UNITS/ML SUB-Q SCH (10:50)
[2020-08-10] MEDS: SCOPOLAMINE TRANSDERMAL PATCH 72 HR TD SCH (10:52)
--- NOTE | 2020-08-10 11:26 | Progress Note ---
Assessment and Plan Acute possibly on chronic toxic metabolic encephalopathy Acute hypoxemic respiratory failure on MVS Severe sepsis with shock, presumably secondary to aspiration pneumonia Recent upper ext DVT (06/06) Aspiration pneumonia, bilateral Urinary tract infection History of quadriplegia Leukocytosis Anemia that is microcytic Coagulopathy. INR 2.17 at presentation Mild hypokalemia Acute kidney injury Metabolic lactic acidosis Non-ST elevation myocardial infarction Adult failure to thrive Moderate to severe protein calorie malnutrition - tentatively for tracheostomy placement today - CXR in am - replace fentanyl patch but wean to 75 janelle's/hr - keep NPO - D51/2 NS @ 50/hr X 2 liters re: developing hypoglycemia - continue metoprolol 12.5 mg p.o. bid re: tachycardia - keep peep at 8 - LTAC evaluation ongoing - continue care as below otherwise; - prn Levophed for target MAP > 65 mmHg - continue to wean supplemental oxygen for target O2 sat's > 90% acutely - VAP bundle addressed - continue lung protective strategies - continue bronchodilators with pulmonary hygiene per RT - wean per pulmonary driven protocols otherwise - avoid nephrotoxins, renally dose all medications - continue to avoid benzodiazepine's, reduce the possibility of delirium - complete AB's per ID rec's - prn analgesia per CPOT score - Maintenance of sleep-wake cycle, avoid delirium - continue enteral nutritional support at goal rate as tolerated - G.I. & VTE prophylaxis - PT/OT/ROM exercises - continue mobility protocols for pressure ulcer prophylaxis - Monitor hemodynamics closely - continue other care per attending / other consultants - discharge planning ongoing concurrently COVID SPECIFIC INTERVENTIONS: - COVID test result negative .... Re-evaluate in am & prn CONDITION: CRITICAL PROGNOSIS: GUARDED CODE STATUS: FULL CODE The high probability of a clinically significant, sudden or life-threatening deterioration of the [respiratory, cardiovascular & neurologic] system(s) required my full and direct attention, intervention and personal management. The aggregate critical care time was [34] minutes without overlap. Time includes spent on; [x] Data Review and interpretation [x] Patient assessment and monitoring of vital signs [x] Documentation [x] Medication orders and management Subjective Date of service: 08/10/20 Principal diagnosis: Ac. encephalopathy; Ac. hypoxemic resp failure; Septic Shock; PNA; UTI; JEFFERSON Interval history: Patient is seen today for: Acute encephalopathy; Acute hypoxemic respiratory failure; Septic Shock; Aspiration pneumonia; UTI; quadriplegia; JEFFERSON Seen and examined at bedside; 24hour events reviewed; nursing and respiratory care staff consulted; no adverse overnight events reported to me; resting in bed; doing better today; on a wean; p-supp at 14 cm H2O; tentatively for tracheostomy today; no emesis or overt aspiration Objective Vital Signs - 12hr 08/09/20 08/09/20 08/09/20 23:30 23:43 23:46 Temperature 99.6 F Pulse Rate 85 100 H Pulse Rate [ From Monitor] Respiratory 24 19 Rate Blood Pressure O2 Sat by Pulse 99 98 Oximetry 08/09/20 08/09/20 08/09/20 23:51 23:56 23:58 Temperature Pulse Rate 100 H 100 H 97 H Pulse Rate [ From Monitor] Respiratory 26 H Rate Blood Pressure 145/53 O2 Sat by Pulse 98 99 Oximetry 08/10/20 08/10/20 08/10/20 00:00 00:16 00:30 Temperature Pulse Rate 98 H 105 H 101 H Pulse Rate [ 104 H From Monitor] Respiratory 25 H 30 H 26 H Rate Blood Pressure O2 Sat by Pulse 99 99 99 Oximetry 08/10/20 08/10/20 08/10/20 00:46 01:00 01:16 Temperature Pulse Rate 102 H 101 H 101 H Pulse Rate [ From Monitor] Respiratory 29 H 28 H 29 H Rate Blood Pressure O2 Sat by Pulse 99 99 100 Oximetry 08/10/20 08/10/20 08/10/20 01:30 01:40 01:46 Temperature Pulse Rate 86 86 95 H Pulse Rate [ 111 H From Monitor] Respiratory 18 27 H 25 H Rate Blood Pressure O2 Sat by Pulse 100 99 Oximetry 08/10/20 08/10/20 08/10/20 02:00 02:16 02:30 Temperature Pulse Rate 102 H 98 H 98 H Pulse Rate [ From Monitor] Respiratory 21 27 H 27 H Rate Blood Pressure O2 Sat by Pulse 100 100 Oximetry 08/10/20 08/10/20 08/10/20 02:46 03:00 03:05 Temperature 98.5 F Pulse Rate 105 H 81 81 Pulse Rate [ 108 H From Monitor] Respiratory 28 H 26 H 27 H Rate Blood Pressure O2 Sat by Pulse 100 100 99 Oximetry 08/10/20 08/10/20 08/10/20 03:16 03:20 03:30 Temperature 98.5 F Pulse Rate 95 H 98 H 95 H Pulse Rate [ From Monitor] Respiratory 26 H 26 H Rate Blood Pressure 148/62 O2 Sat by Pulse 100 100 100 Oximetry 08/10/20 08/10/20 08/10/20 03:46 04:00 04:20 Temperature Pulse Rate 100 H 94 H Pulse Rate [ 94 H From Monitor] Respiratory 25 H 22 19 Rate Blood Pressure O2 Sat by Pulse 100 100 99 Oximetry 08/10/20 08/10/20 08/10/20 04:27 04:31 04:45 Temperature Pulse Rate 100 H 96 H 97 H Pulse Rate [ From Monitor] Respiratory 24 20 27 H Rate Blood Pressure O2 Sat by Pulse 100 100 99 Oximetry 08/10/20 08/10/20 08/10/20 05:01 05:15 05:31 Temperature Pulse Rate 96 H 91 H 91 H Pulse Rate [ From Monitor] Respiratory 25 H 27 H 21 Rate Blood Pressure O2 Sat by Pulse 100 100 100 Oximetry 08/10/20 08/10/20 08/10/20 05:45 06:00 06:01 Temperature Pulse Rate 91 H 98 H Pulse Rate [ 86 From Monitor] Respiratory 27 H 27 H 23 Rate Blood Pressure O2 Sat by Pulse 100 99 100 Oximetry 08/10/20 08/10/20 08/10/20 06:15 06:31 06:45 Temperature Pulse Rate 92 H 87 86 Pulse Rate [ From Monitor] Respiratory 26 H 25 H 23 Rate Blood Pressure O2 Sat by Pulse 100 100 100 Oximetry 08/10/20 08/10/20 08/10/20 07:01 07:07 07:15 Temperature Pulse Rate 92 H 87 85 Pulse Rate [ From Monitor] Respiratory 26 H 28 H Rate Blood Pressure 136/58 O2 Sat by Pulse 100 100 100 Oximetry 08/10/20 08/10/20 08/10/20 07:31 07:45 08:00 Temperature Pulse Rate 81 82 91 H Pulse Rate [ 83 From Monitor] Respiratory 26 H 26 H 25 H Rate Blood Pressure O2 Sat by Pulse 100 99 100 Oximetry 08/10/20 08/10/20 08/10/20 08:01 08:15 09:50 Temperature Pulse Rate 83 82 90 Pulse Rate [ From Monitor] Respiratory 25 H 27 H 23 Rate Blood Pressure 138/57 O2 Sat by Pulse 100 100 100 Oximetry 08/10/20 11:20 Temperature Pulse Rate 87 Pulse Rate [ From Monitor] Respiratory 24 Rate Blood Pressure 144/56 O2 Sat by Pulse 100 Oximetry Constitutional: no acute distress, other ( chronically ill looking male with mildly increased respiratory effort at rest on MVS) Eyes: non-icteric ENT: oropharynx dry, other (ETT 24 cm KEVIN) Neck: supple, no lymphadenopathy, no JVD Effort: mildly labored Ascultation: Bilateral: diminished breath sounds, rhonchi Percussion: Bilateral: not dull Cardiovascular: regular rate and rhythm, other (S1,S2) Gastrointestinal: normoactive bowel sounds, soft, non-tender, non-distended Integumentary: rash, decubitus ulcer (sacral (POA)) Extremities: no cyanosis, pulses normal, edema (lower extremities and bilatral upper extremity) Neurologic: pupils equal and round, unable to assess, other (quadriplegic, biting on ETT) Psychiatric: other (delirious) CBC and BMP: 08/09/20 14:05 08/09/20 14:05 ABG, PT/INR, D-dimer: ABG ABG pH 7.415 (7.320-7.450) 08/10/20 03:04 POC ABG pCO2 40.8 mmHg (32.0-48.0) 08/10/20 03:04 ABG pCO2 44.2 mm Hg 08/07/20 14:30 POC ABG pO2 95.8 mmHg (83-108) 08/10/20 03:04 ABG pO2 62.9 mm Hg (80.0-90.0) L 08/07/20 14:30 POC ABG HCO3 25.6 08/10/20 03:04 ABG O2 Saturation 97.4 (0-100) 08/10/20 03:04 PT/INR, D-dimer PT 15.5 Sec. (12.2-14.9) H 08/09/20 21:25 INR 1.17 (0.87-1.13) H 08/09/20 21:25 Abnormal lab findings: Abnormal Labs 07/28/20 07/28/20 07/28/20 08:48 08:48 08:48 WBC 17.0 H RBC 2.77 L Hgb 8.2 L Hct 26.5 L MCV 96 H MCH MCHC 31 L RDW 16.2 H Plt Count Seg Neuts % (Manual) Lymphocytes % (Manual) Seg Neutrophils # Man Lymphocytes # (Manual) PT 24.7 H INR 2.17 H ABG pH POC ABG pCO2 POC ABG pO2 ABG pO2 ABG O2 Saturation ABG Hemoglobin ABG Oxyhemoglobin ABG Sodium ABG Potassium ABG Chloride ABG Glucose Oxyhemoglobin Carboxyhemoglobin Sodium 135 L Potassium 3.5 L Chloride 97.6 L Carbon Dioxide BUN 44 H Creatinine 1.6 H Glucose 431 H POC Glucose Hemoglobin A1c Lactic Acid Calcium 7.9 L Ionized Calcium Phosphorus AST 81 H ALT Alkaline Phosphatase Ammonia Total Creatine Kinase 486 H Troponin T 0.115 H* C-Reactive Protein Total Protein 5.6 L Albumin 2.6 L Triglycerides LDL Cholesterol Direct 44 L HDL Cholesterol 26 L Arterial Blood Glucose Arterial Blood Ionized Calcium Urine WBC (Auto) Salicylates Crossmatch 07/28/20 07/28/20 07/28/20 08:48 09:44 09:44 WBC RBC Hgb Hct MCV MCH MCHC RDW Plt Count Seg Neuts % (Manual) Lymphocytes % (Manual) Seg Neutrophils # Man Lymphocytes # (Manual) PT INR ABG pH POC ABG pCO2 POC ABG pO2 ABG pO2 ABG O2 Saturation ABG Hemoglobin ABG Oxyhemoglobin ABG Sodium ABG Potassium ABG Chloride ABG Glucose Oxyhemoglobin Carboxyhemoglobin Sodium Potassium Chloride Carbon Dioxide BUN Creatinine Glucose POC Glucose Hemoglobin A1c Lactic Acid 3.80 H* Calcium Ionized Calcium Phosphorus AST ALT Alkaline Phosphatase Ammonia 63.0 H Total Creatine Kinase Troponin T C-Reactive Protein Total Protein Albumin Triglycerides LDL Cholesterol Direct HDL Cholesterol Arterial Blood Glucose Arterial Blood Ionized Calcium Urine WBC (Auto) Salicylates < 0.3 L Crossmatch 07/28/20 07/28/20 07/28/20 10:18 14:38 15:58 WBC RBC Hgb Hct MCV MCH MCHC RDW Plt Count Seg Neuts % (Manual) Lymphocytes % (Manual) Seg Neutrophils # Man Lymphocytes # (Manual) PT INR ABG pH POC ABG pCO2 POC ABG pO2 ABG pO2 78.0 L ABG O2 Saturation ABG Hemoglobin 7.6 L ABG Oxyhemoglobin ABG Sodium ABG Potassium ABG Chloride ABG Glucose Oxyhemoglobin Carboxyhemoglobin Sodium Potassium Chloride Carbon Dioxide BUN Creatinine Glucose POC Glucose 265 H Hemoglobin A1c Lactic Acid 3.90 H* Calcium Ionized Calcium Phosphorus AST ALT Alkaline Phosphatase Ammonia Total Creatine Kinase Troponin T C-Reactive Protein Total Protein Albumin Triglycerides LDL Cholesterol Direct HDL Cholesterol Arterial Blood Glucose Arterial Blood Ionized Calcium Urine WBC (Auto) Salicylates Crossmatch 07/28/20 07/28/20 07/28/20 19:50 21:00 Unknown WBC RBC Hgb Hct MCV MCH MCHC RDW Plt Count Seg Neuts % (Manual) Lymphocytes % (Manual) Seg Neutrophils # Man Lymphocytes # (Manual) PT INR ABG pH 7.107 L POC ABG pCO2 65.6 H POC ABG pO2 ABG pO2 ABG O2 Saturation ABG Hemoglobin 9.9 L ABG Oxyhemoglobin ABG Sodium ABG Potassium ABG Chloride 108.0 H ABG Glucose 299 H Oxyhemoglobin Carboxyhemoglobin 0.2 L Sodium Potassium Chloride Carbon Dioxide BUN Creatinine Glucose POC Glucose Hemoglobin A1c Lactic Acid Calcium Ionized Calcium Phosphorus 5.40 H AST ALT Alkaline Phosphatase Ammonia Total Creatine Kinase Troponin T C-Reactive Protein 9.00 H Total Protein Albumin Triglycerides LDL Cholesterol Direct HDL Cholesterol Arterial Blood Glucose 299 H Arterial Blood Ionized Calcium 4.2 L Urine WBC (Auto) > 182.0 H Salicylates Crossmatch 07/29/20 07/29/20 07/29/20 04:02 13:00 17:13 WBC RBC Hgb Hct MCV MCH MCHC RDW Plt Count Seg Neuts % (Manual) Lymphocytes % (Manual) Seg Neutrophils # Man Lymphocytes # (Manual) PT INR ABG pH 7.212 L POC ABG pCO2 52.5 H POC ABG pO2 128.3 H ABG pO2 ABG O2 Saturation ABG Hemoglobin 10.5 L ABG Oxyhemoglobin ABG Sodium ABG Potassium ABG Chloride 108.0 H ABG Glucose 239 H Oxyhemoglobin Carboxyhemoglobin Sodium Potassium Chloride Carbon Dioxide BUN Creatinine Glucose POC Glucose 212 H 257 H Hemoglobin A1c Lactic Acid Calcium Ionized Calcium Phosphorus AST ALT Alkaline Phosphatase Ammonia Total Creatine Kinase Troponin T C-Reactive Protein Total Protein Albumin Triglycerides LDL Cholesterol Direct HDL Cholesterol Arterial Blood Glucose 239 H Arterial Blood Ionized Calcium 4.0 L Urine WBC (Auto) Salicylates Crossmatch 07/29/20 07/29/20 07/29/20 21:00 23:20 Unknown WBC RBC 3.05 L Hgb 9.7 L Hct 28.6 L MCV MCH MCHC RDW 16.1 H Plt Count Seg Neuts % (Manual) 75.0 H Lymphocytes % (Manual) 2.0 L Seg Neutrophils # Man Lymphocytes # (Manual) 0.2 L PT INR ABG pH 7.286 L POC ABG pCO2 POC ABG pO2 ABG pO2 ABG O2 Saturation ABG Hemoglobin 9.1 L ABG Oxyhemoglobin ABG Sodium ABG Potassium ABG Chloride 109.0 H ABG Glucose 285 H Oxyhemoglobin Carboxyhemoglobin Sodium Potassium Chloride Carbon Dioxide BUN Creatinine Glucose POC Glucose 233 H Hemoglobin A1c Lactic Acid Calcium Ionized Calcium Phosphorus AST ALT Alkaline Phosphatase Ammonia Total Creatine Kinase Troponin T C-Reactive Protein Total Protein Albumin Triglycerides LDL Cholesterol Direct HDL Cholesterol Arterial Blood Glucose 285 H Arterial Blood Ionized Calcium 3.9 L Urine WBC (Auto) Salicylates Crossmatch 07/29/20 07/29/20 07/30/20 Unknown Unknown 05:30 WBC RBC Hgb Hct MCV MCH MCHC RDW Plt Count Seg Neuts % (Manual) Lymphocytes % (Manual) Seg Neutrophils # Man Lymphocytes # (Manual) PT INR ABG pH POC ABG pCO2 POC ABG pO2 ABG pO2 ABG O2 Saturation ABG Hemoglobin ABG Oxyhemoglobin ABG Sodium ABG Potassium ABG Chloride ABG Glucose Oxyhemoglobin Carboxyhemoglobin Sodium Potassium Chloride 108.4 H Carbon Dioxide 21 L BUN 41 H Creatinine Glucose 217 H POC Glucose 245 H Hemoglobin A1c Lactic Acid 2.70 H* Calcium 6.5 L D Ionized Calcium Phosphorus AST 104 H ALT 74 H Alkaline Phosphatase Ammonia Total Creatine Kinase Troponin T C-Reactive Protein Total Protein 5.1 L Albumin 2.4 L Triglycerides LDL Cholesterol Direct HDL Cholesterol Arterial Blood Glucose Arterial Blood Ionized Calcium Urine WBC (Auto) Salicylates Crossmatch 07/30/20 07/30/20 07/30/20 05:45 05:45 12:12 WBC RBC 2.50 L Hgb 7.8 L Hct 23.3 L MCV MCH MCHC RDW 16.4 H Plt Count Seg Neuts % (Manual) Lymphocytes % (Manual) Seg Neutrophils # Man Lymphocytes # (Manual) PT INR ABG pH POC ABG pCO2 POC ABG pO2 ABG pO2 ABG O2 Saturation ABG Hemoglobin ABG Oxyhemoglobin ABG Sodium ABG Potassium ABG Chloride ABG Glucose Oxyhemoglobin Carboxyhemoglobin Sodium Potassium Chloride 108.4 H Carbon Dioxide 21 L BUN 44 H Creatinine 1.4 H Glucose 279 H POC Glucose 243 H Hemoglobin A1c Lactic Acid Calcium 6.7 L Ionized Calcium Phosphorus AST 51 H ALT Alkaline Phosphatase Ammonia Total Creatine Kinase Troponin T C-Reactive Protein Total Protein 5.5 L Albumin 2.3 L Triglycerides LDL Cholesterol Direct HDL Cholesterol Arterial Blood Glucose Arterial Blood Ionized Calcium Urine WBC (Auto) Salicylates Crossmatch 07/30/20 07/30/20 07/30/20 15:50 17:20 19:01 WBC RBC Hgb Hct MCV MCH MCHC RDW Plt Count Seg Neuts % (Manual) Lymphocytes % (Manual) Seg Neutrophils # Man Lymphocytes # (Manual) PT INR ABG pH POC ABG pCO2 POC ABG pO2 147.2 H ABG pO2 ABG O2 Saturation ABG Hemoglobin 7.2 L ABG Oxyhemoglobin ABG Sodium ABG Potassium 3.3 L ABG Chloride 115.0 H ABG Glucose 269 H Oxyhemoglobin Carboxyhemoglobin 1.6 H Sodium Potassium Chloride Carbon Dioxide BUN Creatinine Glucose POC Glucose 260 H Hemoglobin A1c Lactic Acid Calcium Ionized Calcium 4.2 L Phosphorus AST ALT Alkaline Phosphatase Ammonia Total Creatine Kinase Troponin T C-Reactive Protein Total Protein Albumin Triglycerides LDL Cholesterol Direct HDL Cholesterol Arterial Blood Glucose 269 H Arterial Blood Ionized Calcium 3.5 L Urine WBC (Auto) Salicylates Crossmatch 07/30/20 07/31/20 07/31/20 23:16 04:04 04:47 WBC RBC Hgb Hct MCV MCH MCHC RDW Plt Count Seg Neuts % (Manual) Lymphocytes % (Manual) Seg Neutrophils # Man Lymphocytes # (Manual) PT INR ABG pH POC ABG pCO2 POC ABG pO2 ABG pO2 ABG O2 Saturation ABG Hemoglobin 7.6 L ABG Oxyhemoglobin ABG Sodium ABG Potassium 3.3 L ABG Chloride 113.0 H ABG Glucose 348 H Oxyhemoglobin Carboxyhemoglobin 0.4 L Sodium Potassium Chloride Carbon Dioxide BUN Creatinine Glucose POC Glucose 298 H 297 H Hemoglobin A1c Lactic Acid Calcium Ionized Calcium Phosphorus AST ALT Alkaline Phosphatase Ammonia Total Creatine Kinase Troponin T C-Reactive Protein Total Protein Albumin Triglycerides LDL Cholesterol Direct HDL Cholesterol Arterial Blood Glucose 348 H Arterial Blood Ionized Calcium 4.1 L Urine WBC (Auto) Salicylates Crossmatch 07/31/20 07/31/20 07/31/20 07:26 07:26 11:54 WBC RBC 2.29 L Hgb 7.2 L Hct 21.5 L MCV MCH MCHC RDW 16.7 H Plt Count Seg Neuts % (Manual) Lymphocytes % (Manual) Seg Neutrophils # Man Lymphocytes # (Manual) PT INR ABG pH POC ABG pCO2 POC ABG pO2 ABG pO2 ABG O2 Saturation ABG Hemoglobin ABG Oxyhemoglobin ABG Sodium ABG Potassium ABG Chloride ABG Glucose Oxyhemoglobin Carboxyhemoglobin Sodium Potassium 3.4 L Chloride 109.4 H Carbon Dioxide BUN 45 H Creatinine 1.4 H Glucose 304 H POC Glucose 302 H Hemoglobin A1c Lactic Acid Calcium 6.9 L Ionized Calcium Phosphorus AST ALT Alkaline Phosphatase Ammonia Total Creatine Kinase Troponin T C-Reactive Protein Total Protein Albumin Triglycerides LDL Cholesterol Direct HDL Cholesterol Arterial Blood Glucose Arterial Blood Ionized Calcium Urine WBC (Auto) Salicylates Crossmatch 07/31/20 08/01/20 08/01/20 21:27 03:09 04:30 WBC RBC 2.29 L Hgb 7.0 L Hct 20.7 L MCV MCH MCHC RDW 16.2 H Plt Count 125 L Seg Neuts % (Manual) Lymphocytes % (Manual) Seg Neutrophils # Man Lymphocytes # (Manual) PT INR ABG pH POC ABG pCO2 POC ABG pO2 ABG pO2 ABG O2 Saturation ABG Hemoglobin 7.4 L ABG Oxyhemoglobin ABG Sodium 146.9 H ABG Potassium 3.2 L ABG Chloride 116.0 H ABG Glucose 113 H Oxyhemoglobin Carboxyhemoglobin Sodium Potassium Chloride Carbon Dioxide BUN Creatinine Glucose POC Glucose 138 H Hemoglobin A1c Lactic Acid Calcium Ionized Calcium Phosphorus AST ALT Alkaline Phosphatase Ammonia Total Creatine Kinase Troponin T C-Reactive Protein Total Protein Albumin Triglycerides LDL Cholesterol Direct HDL Cholesterol Arterial Blood Glucose 113 H Arterial Blood Ionized Calcium 4.5 L Urine WBC (Auto) Salicylates Crossmatch 08/01/20 08/01/20 08/01/20 04:30 04:30 08:40 WBC RBC Hgb Hct MCV MCH MCHC RDW Plt Count Seg Neuts % (Manual) Lymphocytes % (Manual) Seg Neutrophils # Man Lymphocytes # (Manual) PT INR ABG pH POC ABG pCO2 POC ABG pO2 ABG pO2 ABG O2 Saturation ABG Hemoglobin ABG Oxyhemoglobin ABG Sodium ABG Potassium ABG Chloride ABG Glucose Oxyhemoglobin Carboxyhemoglobin Sodium 148 H Potassium 3.4 L Chloride 114.3 H Carbon Dioxide BUN 43 H Creatinine Glucose 109 H POC Glucose Hemoglobin A1c 8.8 H Lactic Acid Calcium 8.1 L D Ionized Calcium Phosphorus AST ALT Alkaline Phosphatase Ammonia Total Creatine Kinase Troponin T C-Reactive Protein Total Protein Albumin Triglycerides LDL Cholesterol Direct HDL Cholesterol Arterial Blood Glucose Arterial Blood Ionized Calcium Urine WBC (Auto) Salicylates Crossmatch See Detail 08/01/20 08/01/20 08/01/20 08:40 17:03 23:35 WBC RBC Hgb Hct MCV MCH MCHC RDW Plt Count Seg Neuts % (Manual) Lymphocytes % (Manual) Seg Neutrophils # Man Lymphocytes # (Manual) PT INR ABG pH POC ABG pCO2 POC ABG pO2 ABG pO2 ABG O2 Saturation ABG Hemoglobin ABG Oxyhemoglobin ABG Sodium ABG Potassium ABG Chloride ABG Glucose Oxyhemoglobin Carboxyhemoglobin Sodium Potassium Chloride Carbon Dioxide BUN Creatinine Glucose POC Glucose 129 H 172 H Hemoglobin A1c Lactic Acid Calcium Ionized Calcium Phosphorus 1.70 L AST ALT Alkaline Phosphatase Ammonia Total Creatine Kinase Troponin T C-Reactive Protein Total Protein Albumin Triglycerides LDL Cholesterol Direct HDL Cholesterol Arterial Blood Glucose Arterial Blood Ionized Calcium Urine WBC (Auto) Salicylates Crossmatch 08/02/20 08/02/20 08/02/20 03:50 05:46 10:54 WBC RBC Hgb Hct MCV MCH MCHC RDW Plt Count Seg Neuts % (Manual) Lymphocytes % (Manual) Seg Neutrophils # Man Lymphocytes # (Manual) PT INR ABG pH 7.333 L POC ABG pCO2 POC ABG pO2 ABG pO2 91.5 H ABG O2 Saturation ABG Hemoglobin 7.9 L ABG Oxyhemoglobin ABG Sodium ABG Potassium ABG Chloride ABG Glucose Oxyhemoglobin Carboxyhemoglobin Sodium Potassium Chloride Carbon Dioxide BUN Creatinine Glucose POC Glucose 161 H 228 H Hemoglobin A1c Lactic Acid Calcium Ionized Calcium Phosphorus AST ALT Alkaline Phosphatase Ammonia Total Creatine Kinase Troponin T C-Reactive Protein Total Protein Albumin Triglycerides LDL Cholesterol Direct HDL Cholesterol Arterial Blood Glucose Arterial Blood Ionized Calcium Urine WBC (Auto) Salicylates Crossmatch 08/02/20 08/02/20 08/02/20 17:20 23:13 Unknown WBC RBC 2.66 L Hgb 8.1 L Hct 23.9 L MCV MCH MCHC RDW 16.8 H Plt Count 110 L Seg Neuts % (Manual) Lymphocytes % (Manual) Seg Neutrophils # Man Lymphocytes # (Manual) PT INR ABG pH POC ABG pCO2 POC ABG pO2 ABG pO2 ABG O2 Saturation ABG Hemoglobin ABG Oxyhemoglobin ABG Sodium ABG Potassium ABG Chloride ABG Glucose Oxyhemoglobin Carboxyhemoglobin Sodium Potassium Chloride Carbon Dioxide BUN Creatinine Glucose POC Glucose 214 H 132 H Hemoglobin A1c Lactic Acid Calcium Ionized Calcium Phosphorus AST ALT Alkaline Phosphatase Ammonia Total Creatine Kinase Troponin T C-Reactive Protein Total Protein Albumin Triglycerides LDL Cholesterol Direct HDL Cholesterol Arterial Blood Glucose Arterial Blood Ionized Calcium Urine WBC (Auto) Salicylates Crossmatch 08/02/20 08/02/20 08/03/20 Unknown Unknown 02:59 WBC RBC Hgb Hct MCV MCH MCHC RDW Plt Count Seg Neuts % (Manual) Lymphocytes % (Manual) Seg Neutrophils # Man Lymphocytes # (Manual) PT INR ABG pH POC ABG pCO2 POC ABG pO2 ABG pO2 ABG O2 Saturation ABG Hemoglobin 8.1 L ABG Oxyhemoglobin ABG Sodium ABG Potassium ABG Chloride 113.0 H ABG Glucose 143 H Oxyhemoglobin Carboxyhemoglobin Sodium 150 H Potassium 3.5 L Chloride 115.9 H Carbon Dioxide BUN 42 H Creatinine Glucose 188 H POC Glucose Hemoglobin A1c Lactic Acid Calcium 7.8 L Ionized Calcium Phosphorus 2.30 L D AST ALT Alkaline Phosphatase Ammonia Total Creatine Kinase Troponin T C-Reactive Protein Total Protein Albumin Triglycerides LDL Cholesterol Direct HDL Cholesterol Arterial Blood Glucose 143 H Arterial Blood Ionized Calcium Urine WBC (Auto) Salicylates Crossmatch 08/03/20 08/03/20 08/03/20 04:16 04:16 05:12 WBC RBC 2.62 L Hgb 8.1 L Hct 24.1 L MCV MCH MCHC RDW 17.4 H Plt Count 118 L Seg Neuts % (Manual) Lymphocytes % (Manual) Seg Neutrophils # Man Lymphocytes # (Manual) PT INR ABG pH POC ABG pCO2 POC ABG pO2 ABG pO2 ABG O2 Saturation ABG Hemoglobin ABG Oxyhemoglobin ABG Sodium ABG Potassium ABG Chloride ABG Glucose Oxyhemoglobin Carboxyhemoglobin Sodium 148 H Potassium Chloride 114.5 H Carbon Dioxide BUN 47 H Creatinine Glucose 158 H POC Glucose 164 H Hemoglobin A1c Lactic Acid Calcium 8.1 L Ionized Calcium Phosphorus 2.30 L AST ALT Alkaline Phosphatase Ammonia Total Creatine Kinase Troponin T C-Reactive Protein Total Protein Albumin Triglycerides LDL Cholesterol Direct HDL Cholesterol Arterial Blood Glucose Arterial Blood Ionized Calcium Urine WBC (Auto) Salicylates Crossmatch 08/03/20 08/03/20 08/03/20 11:26 17:33 23:47 WBC RBC Hgb Hct MCV MCH MCHC RDW Plt Count Seg Neuts % (Manual) Lymphocytes % (Manual) Seg Neutrophils # Man Lymphocytes # (Manual) PT INR ABG pH POC ABG pCO2 POC ABG pO2 ABG pO2 ABG O2 Saturation ABG Hemoglobin ABG Oxyhemoglobin ABG Sodium ABG Potassium ABG Chloride ABG Glucose Oxyhemoglobin Carboxyhemoglobin Sodium Potassium Chloride Carbon Dioxide BUN Creatinine Glucose POC Glucose 190 H 235 H 194 H Hemoglobin A1c Lactic Acid Calcium Ionized Calcium Phosphorus AST ALT Alkaline Phosphatase Ammonia Total Creatine Kinase Troponin T C-Reactive Protein Total Protein Albumin Triglycerides LDL Cholesterol Direct HDL Cholesterol Arterial Blood Glucose Arterial Blood Ionized Calcium Urine WBC (Auto) Salicylates Crossmatch 08/04/20 08/04/20 08/04/20 03:00 03:00 04:14 WBC RBC Hgb Hct MCV MCH MCHC RDW Plt Count Seg Neuts % (Manual) Lymphocytes % (Manual) Seg Neutrophils # Man Lymphocytes # (Manual) PT INR ABG pH POC ABG pCO2 POC ABG pO2 79.5 L ABG pO2 ABG O2 Saturation ABG Hemoglobin 9.9 L ABG Oxyhemoglobin ABG Sodium ABG Potassium ABG Chloride 113.0 H ABG Glucose 227 H Oxyhemoglobin Carboxyhemoglobin 0.3 L Sodium Potassium Chloride 111.4 H Carbon Dioxide BUN 51 H Creatinine Glucose 218 H POC Glucose Hemoglobin A1c Lactic Acid Calcium Ionized Calcium Phosphorus AST ALT Alkaline Phosphatase Ammonia Total Creatine Kinase Troponin T C-Reactive Protein Total Protein Albumin Triglycerides 184 H LDL Cholesterol Direct HDL Cholesterol Arterial Blood Glucose 227 H Arterial Blood Ionized Calcium Urine WBC (Auto) Salicylates Crossmatch 08/04/20 08/04/20 08/04/20 05:17 11:52 11:53 WBC RBC Hgb Hct MCV MCH MCHC RDW Plt Count Seg Neuts % (Manual) Lymphocytes % (Manual) Seg Neutrophils # Man Lymphocytes # (Manual) PT INR ABG pH POC ABG pCO2 POC ABG pO2 ABG pO2 ABG O2 Saturation ABG Hemoglobin ABG Oxyhemoglobin ABG Sodium ABG Potassium ABG Chloride ABG Glucose Oxyhemoglobin Carboxyhemoglobin Sodium Potassium Chloride Carbon Dioxide BUN Creatinine Glucose POC Glucose 224 H 253 H 237 H Hemoglobin A1c Lactic Acid Calcium Ionized Calcium Phosphorus AST ALT Alkaline Phosphatase Ammonia Total Creatine Kinase Troponin T C-Reactive Protein Total Protein Albumin Triglycerides LDL Cholesterol Direct HDL Cholesterol Arterial Blood Glucose Arterial Blood Ionized Calcium Urine WBC (Auto) Salicylates Crossmatch 08/04/20 08/04/20 08/04/20 15:35 16:25 17:45 WBC 21.5 H RBC 2.10 L Hgb 7.3 L Hct 22.0 L MCV MCH 33 H MCHC 37 H RDW 17.2 H Plt Count 133 L Seg Neuts % (Manual) Lymphocytes % (Manual) Seg Neutrophils # Man Lymphocytes # (Manual) PT INR ABG pH POC ABG pCO2 POC ABG pO2 ABG pO2 ABG O2 Saturation ABG Hemoglobin ABG Oxyhemoglobin ABG Sodium ABG Potassium ABG Chloride ABG Glucose Oxyhemoglobin Carboxyhemoglobin Sodium Potassium Chloride Carbon Dioxide BUN Creatinine Glucose POC Glucose 230 H 218 H Hemoglobin A1c Lactic Acid Calcium Ionized Calcium Phosphorus AST ALT Alkaline Phosphatase Ammonia Total Creatine Kinase Troponin T C-Reactive Protein Total Protein Albumin Triglycerides LDL Cholesterol Direct HDL Cholesterol Arterial Blood Glucose Arterial Blood Ionized Calcium Urine WBC (Auto) Salicylates Crossmatch 08/04/20 08/05/20 08/05/20 23:11 03:28 05:25 WBC RBC Hgb Hct MCV MCH MCHC RDW Plt Count Seg Neuts % (Manual) Lymphocytes % (Manual) Seg Neutrophils # Man Lymphocytes # (Manual) PT INR ABG pH POC ABG pCO2 POC ABG pO2 82.1 L ABG pO2 ABG O2 Saturation ABG Hemoglobin 8.6 L ABG Oxyhemoglobin 93.7 L ABG Sodium ABG Potassium ABG Chloride 113.0 H ABG Glucose 205 H Oxyhemoglobin Carboxyhemoglobin Sodium Potassium Chloride Carbon Dioxide BUN Creatinine Glucose POC Glucose 198 H 213 H Hemoglobin A1c Lactic Acid Calcium Ionized Calcium Phosphorus AST ALT Alkaline Phosphatase Ammonia Total Creatine Kinase Troponin T C-Reactive Protein Total Protein Albumin Triglycerides LDL Cholesterol Direct HDL Cholesterol Arterial Blood Glucose 205 H Arterial Blood Ionized Calcium Urine WBC (Auto) Salicylates Crossmatch 08/05/20 08/05/20 08/05/20 08:48 08:48 10:55 WBC 14.3 H RBC 2.76 L Hgb 8.1 L Hct 24.8 L MCV MCH MCHC RDW 17.4 H Plt Count 138 L Seg Neuts % (Manual) 97.0 H Lymphocytes % (Manual) 1.0 L Seg Neutrophils # Man 13.9 H Lymphocytes # (Manual) 0.1 L PT INR ABG pH POC ABG pCO2 POC ABG pO2 158.7 H ABG pO2 ABG O2 Saturation ABG Hemoglobin 7.8 L ABG Oxyhemoglobin ABG Sodium ABG Potassium ABG Chloride 114.0 H ABG Glucose 242 H Oxyhemoglobin Carboxyhemoglobin Sodium 146 H Potassium Chloride 110.1 H Carbon Dioxide BUN 56 H Creatinine Glucose 219 H POC Glucose Hemoglobin A1c Lactic Acid Calcium Ionized Calcium Phosphorus AST ALT Alkaline Phosphatase 192 H Ammonia Total Creatine Kinase Troponin T C-Reactive Protein Total Protein 5.8 L Albumin 2.0 L Triglycerides LDL Cholesterol Direct HDL Cholesterol Arterial Blood Glucose 242 H Arterial Blood Ionized Calcium Urine WBC (Auto) Salicylates Crossmatch 08/05/20 08/05/20 08/05/20 11:12 11:30 17:08 WBC RBC Hgb Hct MCV MCH MCHC RDW Plt Count Seg Neuts % (Manual) Lymphocytes % (Manual) Seg Neutrophils # Man Lymphocytes # (Manual) PT INR ABG pH POC ABG pCO2 POC ABG pO2 147.5 H ABG pO2 ABG O2 Saturation ABG Hemoglobin 7.5 L ABG Oxyhemoglobin 98.1 H ABG Sodium ABG Potassium ABG Chloride 113.0 H ABG Glucose 248 H Oxyhemoglobin Carboxyhemoglobin Sodium Potassium Chloride Carbon Dioxide BUN Creatinine Glucose POC Glucose 238 H 239 H Hemoglobin A1c Lactic Acid Calcium Ionized Calcium Phosphorus AST ALT Alkaline Phosphatase Ammonia Total Creatine Kinase Troponin T C-Reactive Protein Total Protein Albumin Triglycerides LDL Cholesterol Direct HDL Cholesterol Arterial Blood Glucose 248 H Arterial Blood Ionized Calcium Urine WBC (Auto) Salicylates Crossmatch 08/05/20 08/05/20 08/06/20 23:17 Unknown 05:12 WBC RBC Hgb Hct MCV MCH MCHC RDW Plt Count Seg Neuts % (Manual) Lymphocytes % (Manual) Seg Neutrophils # Man Lymphocytes # (Manual) PT INR ABG pH POC ABG pCO2 POC ABG pO2 ABG pO2 ABG O2 Saturation ABG Hemoglobin ABG Oxyhemoglobin ABG Sodium ABG Potassium ABG Chloride ABG Glucose Oxyhemoglobin Carboxyhemoglobin Sodium Potassium Chloride 109.2 H Carbon Dioxide BUN 51 H Creatinine Glucose 229 H POC Glucose 200 H 145 H Hemoglobin A1c Lactic Acid Calcium Ionized Calcium Phosphorus AST ALT Alkaline Phosphatase Ammonia Total Creatine Kinase Troponin T C-Reactive Protein Total Protein Albumin Triglycerides LDL Cholesterol Direct HDL Cholesterol Arterial Blood Glucose Arterial Blood Ionized Calcium Urine WBC (Auto) Salicylates Crossmatch 08/06/20 08/06/20 08/06/20 05:21 10:00 11:28 WBC RBC Hgb Hct MCV MCH MCHC RDW Plt Count Seg Neuts % (Manual) Lymphocytes % (Manual) Seg Neutrophils # Man Lymphocytes # (Manual) PT INR ABG pH 7.301 L 7.308 L POC ABG pCO2 49.5 H 49.1 H POC ABG pO2 178.4 H ABG pO2 ABG O2 Saturation ABG Hemoglobin 7.5 L 7.1 L ABG Oxyhemoglobin 98.8 H ABG Sodium ABG Potassium ABG Chloride 112.0 H 112.0 H ABG Glucose 149 H 162 H Oxyhemoglobin Carboxyhemoglobin Sodium Potassium Chloride Carbon Dioxide BUN Creatinine Glucose POC Glucose 158 H Hemoglobin A1c Lactic Acid Calcium Ionized Calcium Phosphorus AST ALT Alkaline Phosphatase Ammonia Total Creatine Kinase Troponin T C-Reactive Protein Total Protein Albumin Triglycerides LDL Cholesterol Direct HDL Cholesterol Arterial Blood Glucose 149 H 162 H Arterial Blood Ionized Calcium Urine WBC (Auto) Salicylates Crossmatch 08/06/20 08/06/20 08/06/20 17:42 23:56 Unknown WBC 13.0 H RBC 2.38 L Hgb 7.1 L Hct 21.5 L MCV MCH MCHC RDW 17.6 H Plt Count Seg Neuts % (Manual) Lymphocytes % (Manual) Seg Neutrophils # Man Lymphocytes # (Manual) PT INR ABG pH POC ABG pCO2 POC ABG pO2 ABG pO2 ABG O2 Saturation ABG Hemoglobin ABG Oxyhemoglobin ABG Sodium ABG Potassium ABG Chloride ABG Glucose Oxyhemoglobin Carboxyhemoglobin Sodium Potassium Chloride Carbon Dioxide BUN Creatinine Glucose POC Glucose 179 H 259 H Hemoglobin A1c Lactic Acid Calcium Ionized Calcium Phosphorus AST ALT Alkaline Phosphatase Ammonia Total Creatine Kinase Troponin T C-Reactive Protein Total Protein Albumin Triglycerides LDL Cholesterol Direct HDL Cholesterol Arterial Blood Glucose Arterial Blood Ionized Calcium Urine WBC (Auto) Salicylates Crossmatch 08/07/20 08/07/20 08/07/20 04:00 04:05 04:05 WBC RBC 2.32 L Hgb 7.1 L Hct 20.9 L MCV MCH MCHC RDW 17.9 H Plt Count Seg Neuts % (Manual) Lymphocytes % (Manual) Seg Neutrophils # Man Lymphocytes # (Manual) PT INR ABG pH POC ABG pCO2 POC ABG pO2 150.6 H ABG pO2 ABG O2 Saturation ABG Hemoglobin 8.0 L ABG Oxyhemoglobin 98.4 H ABG Sodium 146.7 H ABG Potassium ABG Chloride 114.0 H ABG Glucose 201 H Oxyhemoglobin Carboxyhemoglobin Sodium 151 H Potassium Chloride 114.3 H Carbon Dioxide BUN 63 H Creatinine Glucose 198 H POC Glucose Hemoglobin A1c Lactic Acid Calcium Ionized Calcium Phosphorus AST 54 H ALT Alkaline Phosphatase 213 H Ammonia Total Creatine Kinase Troponin T C-Reactive Protein Total Protein 6.1 L Albumin 2.0 L Triglycerides LDL Cholesterol Direct HDL Cholesterol Arterial Blood Glucose 201 H Arterial Blood Ionized Calcium Urine WBC (Auto) Salicylates Crossmatch 08/07/20 08/07/20 08/07/20 05:34 11:43 14:30 WBC RBC Hgb Hct MCV MCH MCHC RDW Plt Count Seg Neuts % (Manual) Lymphocytes % (Manual) Seg Neutrophils # Man Lymphocytes # (Manual) PT INR ABG pH POC ABG pCO2 POC ABG pO2 ABG pO2 62.9 L ABG O2 Saturation 86.7 L ABG Hemoglobin 7.1 L ABG Oxyhemoglobin ABG Sodium ABG Potassium ABG Chloride ABG Glucose Oxyhemoglobin 85.0 L Carboxyhemoglobin Sodium Potassium Chloride Carbon Dioxide BUN Creatinine Glucose POC Glucose 160 H 201 H Hemoglobin A1c Lactic Acid Calcium Ionized Calcium Phosphorus AST ALT Alkaline Phosphatase Ammonia Total Creatine Kinase Troponin T C-Reactive Protein Total Protein Albumin Triglycerides LDL Cholesterol Direct HDL Cholesterol Arterial Blood Glucose Arterial Blood Ionized Calcium Urine WBC (Auto) Salicylates Crossmatch 08/07/20 08/07/20 08/08/20 17:57 23:12 05:38 WBC RBC Hgb Hct MCV MCH MCHC RDW Plt Count Seg Neuts % (Manual) Lymphocytes % (Manual) Seg Neutrophils # Man Lymphocytes # (Manual) PT INR ABG pH POC ABG pCO2 POC ABG pO2 ABG pO2 ABG O2 Saturation ABG Hemoglobin ABG Oxyhemoglobin ABG Sodium ABG Potassium ABG Chloride ABG Glucose Oxyhemoglobin Carboxyhemoglobin Sodium Potassium Chloride Carbon Dioxide BUN Creatinine Glucose POC Glucose 242 H 246 H 135 H Hemoglobin A1c Lactic Acid Calcium Ionized Calcium Phosphorus AST ALT Alkaline Phosphatase Ammonia Total Creatine Kinase Troponin T C-Reactive Protein Total Protein Albumin Triglycerides LDL Cholesterol Direct HDL Cholesterol Arterial Blood Glucose Arterial Blood Ionized Calcium Urine WBC (Auto) Salicylates Crossmatch 08/08/20 08/08/20 08/08/20 09:49 11:40 17:28 WBC RBC Hgb Hct MCV MCH MCHC RDW Plt Count Seg Neuts % (Manual) Lymphocytes % (Manual) Seg Neutrophils # Man Lymphocytes # (Manual) PT INR ABG pH POC ABG pCO2 POC ABG pO2 ABG pO2 ABG O2 Saturation ABG Hemoglobin 6.9 L ABG Oxyhemoglobin ABG Sodium 146.1 H ABG Potassium ABG Chloride 114.0 H ABG Glucose 192 H Oxyhemoglobin Carboxyhemoglobin Sodium Potassium Chloride Carbon Dioxide BUN Creatinine Glucose POC Glucose 187 H 175 H Hemoglobin A1c Lactic Acid Calcium Ionized Calcium Phosphorus AST ALT Alkaline Phosphatase Ammonia Total Creatine Kinase Troponin T C-Reactive Protein Total Protein Albumin Triglycerides LDL Cholesterol Direct HDL Cholesterol Arterial Blood Glucose 192 H Arterial Blood Ionized Calcium Urine WBC (Auto) Salicylates Crossmatch 08/09/20 08/09/20 08/09/20 03:41 06:10 11:58 WBC RBC Hgb Hct MCV MCH MCHC RDW Plt Count Seg Neuts % (Manual) Lymphocytes % (Manual) Seg Neutrophils # Man Lymphocytes # (Manual) PT INR ABG pH POC ABG pCO2 POC ABG pO2 ABG pO2 ABG O2 Saturation ABG Hemoglobin 6.9 L ABG Oxyhemoglobin ABG Sodium 145.8 H ABG Potassium 4.6 H ABG Chloride 113.0 H ABG Glucose 113 H Oxyhemoglobin Carboxyhemoglobin Sodium Potassium Chloride Carbon Dioxide BUN Creatinine Glucose POC Glucose 118 H 124 H Hemoglobin A1c Lactic Acid Calcium Ionized Calcium Phosphorus AST ALT Alkaline Phosphatase Ammonia Total Creatine Kinase Troponin T C-Reactive Protein Total Protein Albumin Triglycerides LDL Cholesterol Direct HDL Cholesterol Arterial Blood Glucose 113 H Arterial Blood Ionized Calcium Urine WBC (Auto) Salicylates Crossmatch 08/09/20 08/09/20 08/09/20 14:05 14:05 17:42 WBC RBC 3.58 L Hgb 10.5 L D Hct 31.6 L D MCV MCH MCHC RDW 17.8 H Plt Count 125 L Seg Neuts % (Manual) Lymphocytes % (Manual) Seg Neutrophils # Man Lymphocytes # (Manual) PT INR ABG pH POC ABG pCO2 POC ABG pO2 ABG pO2 ABG O2 Saturation ABG Hemoglobin ABG Oxyhemoglobin ABG Sodium ABG Potassium ABG Chloride ABG Glucose Oxyhemoglobin Carboxyhemoglobin Sodium Potassium Chloride 111.2 H Carbon Dioxide BUN 74 H Creatinine Glucose 137 H POC Glucose 139 H Hemoglobin A1c Lactic Acid Calcium Ionized Calcium Phosphorus AST ALT Alkaline Phosphatase Ammonia Total Creatine Kinase Troponin T C-Reactive Protein Total Protein Albumin Triglycerides LDL Cholesterol Direct HDL Cholesterol Arterial Blood Glucose Arterial Blood Ionized Calcium Urine WBC (Auto) Salicylates Crossmatch 08/09/20 08/09/20 08/09/20 21:07 21:25 23:26 WBC RBC Hgb Hct MCV MCH MCHC RDW Plt Count Seg Neuts % (Manual) Lymphocytes % (Manual) Seg Neutrophils # Man Lymphocytes # (Manual) PT 15.5 H INR 1.17 H ABG pH POC ABG pCO2 POC ABG pO2 ABG pO2 ABG O2 Saturation ABG Hemoglobin ABG Oxyhemoglobin ABG Sodium ABG Potassium ABG Chloride ABG Glucose Oxyhemoglobin Carboxyhemoglobin Sodium Potassium Chloride Carbon Dioxide BUN Creatinine Glucose POC Glucose 156 H 167 H Hemoglobin A1c Lactic Acid Calcium Ionized Calcium Phosphorus AST ALT Alkaline Phosphatase Ammonia Total Creatine Kinase Troponin T C-Reactive Protein Total Protein Albumin Triglycerides LDL Cholesterol Direct HDL Cholesterol Arterial Blood Glucose Arterial Blood Ionized Calcium Urine WBC (Auto) Salicylates Crossmatch 08/10/20 03:04 WBC RBC Hgb Hct MCV MCH MCHC RDW Plt Count Seg Neuts % (Manual) Lymphocytes % (Manual) Seg Neutrophils # Man Lymphocytes # (Manual) PT INR ABG pH POC ABG pCO2 POC ABG pO2 ABG pO2 ABG O2 Saturation ABG Hemoglobin 6.7 L ABG Oxyhemoglobin ABG Sodium ABG Potassium ABG Chloride 111.0 H ABG Glucose 116 H Oxyhemoglobin Carboxyhemoglobin Sodium Potassium Chloride Carbon Dioxide BUN Creatinine Glucose POC Glucose Hemoglobin A1c Lactic Acid Calcium Ionized Calcium Phosphorus AST ALT Alkaline Phosphatase Ammonia Total Creatine Kinase Troponin T C-Reactive Protein Total Protein Albumin Triglycerides LDL Cholesterol Direct HDL Cholesterol Arterial Blood Glucose 116 H Arterial Blood Ionized Calcium Urine WBC (Auto) Salicylates Crossmatch Chest x-ray: pending Allied health notes reviewed: nursing
--- NOTE | 2020-08-10 11:59 | Progress Note ---
Assessment and Plan Cultures: 07/28/2020 blood culture: C albicans 07/28/2020 urine culture: No growth COVID PCR: negative 07/31/2020 blood culture: Coag negative staph in 1 of 4 bottles (contaminant) 08/02/2020 blood culture: No growth 08/06/2020 resp culture: normal resp hawk 08/06/2020 BAL AFB stain: negative 08/06/2020 BAL fungal culture: Stain positive, culture in process. A/P: 69-year-old intermediate resident with quadriplegia, spinal cord injury, was brought in due to fever and sepsis: #Septic shock: Resolved likely due to candidemia +/-pneumonia. #Candidemia: Unclear source. ?IV line. Transthoracic echo without vegetation. Repeat blood culture no growth. #Pneumonia: CT chest showed patchy airspace disease suggestive of possible aspiration. Chest x-ray with left lung whiteout, got bronch with suctioning of mucous plug, cultures with normal resp hawk. #UTI with chronic indwelling catheter #Acute hypoxic respiratory failure: On mechanical ventilation. #Transaminitis: Likely sepsis/shock related. Improved. #Sacral decubitus ulcer: Does not appear infected. Continue wound care. Recs: -Continue fluconazole 400 mg IV once a day, complete 14 days from clearance of candidemia (end date: 08/14/2020) -for pneumonia continue IV Ceftriaxone, D2, plan 5-[address] Cabrera covering the weekend. Please call with questions. Dominga Simmons MD, FACP [facility] ([facility] O: [phone] F: [phone] Subjective Date of service: 08/10/20 Principal diagnosis: Ac. encephalopathy; Ac. hypoxemic resp failure; Septic Shock; PNA; UTI; JEFF[place] Interval history: No fever. Remains on the vent. Objective - Exam Narrative Exam: Physical Exam: Constitutional: sedated, intubated, on the vent Head, Ears, Nose: Normocephalic, atraumatic. External ears, nose normal Eyes: Conjunctivae/corneas clear. No icterus. No ptosis. Neck: intubated Oral: intubated Cardiovascular: S1, S2 + Respiratory: AE fair bilaterally and equal GI: Soft, bowel sounds +, G tube + Musculoskeletal: Bilateral pedal edema Skin: No rash or abscess Hem/Lymphatic: No palpable cervical or supraclavicular nodes. No lymphangitis Psych: no agitation Neurological: sedated, intubated, on the vent, exam limited - Constitutional Vitals: Vital Signs Temp Pulse Resp BP Pulse Ox 98.5 F 87 24 144/56 100 08/10/20 03:16 08/10/20 11:20 08/10/20 11:20 08/10/20 11:20 08/10/20 11:20 Temperature -Last 24 Hours Temperature 98.5 F Temperature 98.5 F Temperature 99.6 F Temperature 98.6 F Temperature 99.3 F Temperature 99.1 F - Labs CBC & Chem 7: 08/09/20 14:05 08/09/20 14:05 Labs: Abnormal lab results 08/09/20 08/09/20 08/09/20 Range/Units 11:58 14:05 14:05 RBC 3.58 L (3.65-5.03) M/mm3 Hgb 10.5 L D (11.8-15.2) gm/dl Hct 31.6 L D (35.5-45.6) % RDW 17.8 H (13.2-15.2) % Plt Count 125 L (140-440) K/mm3 PT (12.2-14.9) Sec. INR (0.87-1.13) ABG Hemoglobin (12.0-17.5) ABG Chloride (98-107) mmol/L ABG Glucose (65-95) mg/dL Chloride 111.2 H (98-107) mmol/L BUN 74 H (9-20) mg/dL Glucose 137 H (75-100) mg/dL POC Glucose 124 H (70-105) mg/dL Arterial Blood Glucose (65-95) mg/dL 08/09/20 08/09/20 08/09/20 Range/Units 17:42 21:07 21:25 RBC (3.65-5.03) M/mm3 Hgb (11.8-15.2) gm/dl Hct (35.5-45.6) % RDW (13.2-15.2) % Plt Count (140-440) K/mm3 PT 15.5 H (12.2-14.9) Sec. INR 1.17 H (0.87-1.13) ABG Hemoglobin (12.0-17.5) ABG Chloride (98-107) mmol/L ABG Glucose (65-95) mg/dL Chloride (98-107) mmol/L BUN (9-20) mg/dL Glucose (75-100) mg/dL POC Glucose 139 H 156 H (70-105) mg/dL Arterial Blood Glucose (65-95) mg/dL 08/09/20 08/10/20 Range/Units 23:26 03:04 RBC (3.65-5.03) M/mm3 Hgb (11.8-15.2) gm/dl Hct (35.5-45.6) % RDW (13.2-15.2) % Plt Count (140-440) K/mm3 PT (12.2-14.9) Sec. INR (0.87-1.13) ABG Hemoglobin 6.7 L (12.0-17.5) ABG Chloride 111.0 H (98-107) mmol/L ABG Glucose 116 H (65-95) mg/dL Chloride (98-107) mmol/L BUN (9-20) mg/dL Glucose (75-100) mg/dL POC Glucose 167 H (70-105) mg/dL Arterial Blood Glucose 116 H (65-95) mg/dL
[2020-08-10] MEDS: DEXTROSE 50% IN WATER (25GM) 50 ML SYRINGE IV PRN ×2 (12:15→23:16)
[2020-08-10] MEDS ORDERED: LIDOCAINE (2%) 20 MG/1 ML VIAL 20 ML MDV INFILTRATI ONE (12:31)
[2020-08-10] MEDS ORDERED: BUPIVACAINE/PF (0.5%) 5 MG/1 ML 30 ML VIAL INFILTRATI ONE (12:31)
[2020-08-10] MEDS ORDERED: ROCURONIUM 50 MG/5 ML INJ IV ONE (13:12)
--- NOTE | 2020-08-10 13:26 | Anesthesia Consultation ---
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 Consent obtained from Argenis Richardson (daughter).
--- NOTE | 2020-08-10 13:27 | Anesthesia Day of Surgery ---
Anesthesia Day of Surgery - Day of Surgery Patient Examined: Yes Patient H&P Reviewed: Yes Patient is NPO: Yes
[2020-08-10] MEDS ORDERED: ceFAZolin 1 GM VIAL ONE ×2 (13:33)
[2020-08-10] MEDS ORDERED: fentaNYL 100 MCG/2 ML INJ ONE (13:52)
[2020-08-10] MEDS ORDERED: SODIUM CHLORIDE 0.9% IRR 1,500 ML BOTTLE IR ONE (14:00)
--- NOTE | 2020-08-10 14:41 | Procedure Note ---
Date of procedure: 08/10/20 Pre-op diagnosis: Chronic respiratory failure Post-op diagnosis: same Procedure: Open tracheostomy Description of procedure: Pt was placed supine on the OR table. GETA was administered. Neck was extended in the midline and the lower face, neck and chest prepped and draped. A transverse collar incision was made. Hemostasis was obtained with the Bovie. SQ tissue and platysma were divided with the Bovie. Strap muscles were divided in the midline. Isthmus of the thyroid was divided with the Bovie. The 2nd tracheal ring was identified. An H type incision was made through the 2nd tracheal ring, endotracheal tube withdrawn and a #8 Shiley, cuffed, non-fenestrated tracheostomy tube inserted into the trachea. The tracheostomy balloon was appropriately inflated. Strap muscles were approximated with interrupted sutures of 3-0 Vicryl. Platysma was approximated with a running suture of 3-0 Vicryl. Skin was approximated with interrupted vertical mattress sutures of 3-0 Nylon. A slitted gauze was passed behind the tracheostomy cuff and the cuff secured about the nect with a Velcro type strap. Pt tolerated the procedure well and was taken immediately back to the ICU. Anesthesia: GETA Surgeon: JOCELYN POSEY Estimated blood loss: minimal Pathology: none Condition: stable Disposition: ICU
[2020-08-10] MEDS: FLUCONAZOLE 400 MG 200 ML IV SCH (15:00)
--- NOTE | 2020-08-10 15:06 | Post Anesthesia Evaluation ---
- Post Anesthesia Evaluation Patient Participated: No Airway Patent: Yes Stable Respiratory Function: Yes Nausea/Vomiting: No (unable to assess) Temp > 96.8F: Yes Pain Manageable: Yes (unable to assess) Adequeate Hydration: Yes Anesthesia Complications: No Patient on Ventilator: Yes Other Comments: transported to ICU w/ VS monitored and stable, respirations assisted via AMBU. 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
[2020-08-10 15:20] LABS: Hemoglobin 6.1 gm/dl (11.8-15.2); Mean Corpuscular HGB Conc 33 % (32-34); Mean Corpuscular Volume 90 fl (84-94); Platelet Count 137 K/mm3 (140-440); Red Blood Count 2.06 M/mm3 (3.65-5.03); Red Cell Distribution Width 18.3 % (13.2-15.2)
[2020-08-10 15:39] LABS: Hematocrit 18.6 % (35.5-45.6)
[2020-08-10 15:42] LABS: BUN/Creatinine Ratio 51; Blood Urea Nitrogen 72 mg/dL (9-20); Calcium 8.2 mg/dL (8.4-10.2); Hemolysis Index 31
[2020-08-10] MEDS ORDERED: SODIUM CHLORIDE 0.9% 500 ML 500 ML IV SCH ×2 (17:00→23:45)
[2020-08-10] MEDS: D5W/0.45% NACL 1,000 ML IV SCH (18:50)
[2020-08-11] MEDS: INSULIN LISPRO 100 UNIT/ML SUB-Q SCH ×4 (00:11→18:06)
[2020-08-11] MEDS: FREE WATER PO SCH ×6 (02:04→22:27)
[2020-08-11] MEDS: D5W/0.45% NACL 1,000 ML IV SCH (02:38)
[2020-08-11] MEDS: DEXTROSE 50% IN WATER (25GM) 50 ML SYRINGE IV PRN ×2 (05:38→12:10)
[2020-08-11 08:50] LABS: Hemoglobin 6.2 gm/dl (11.8-15.2); Mean Corpuscular HGB Conc 33 % (32-34); Mean Corpuscular Volume 88 fl (84-94); Platelet Count 155 K/mm3 (140-440); Red Blood Count 2.14 M/mm3 (3.65-5.03); Red Cell Distribution Width 17.6 % (13.2-15.2)
[2020-08-11 09:08] LABS: Calcium 7.9 mg/dL (8.4-10.2)
--- NOTE | 2020-08-11 09:16 | Progress Note ---
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 UTI, Quadriplegia Current Diet NPO; TF held Labs/Tests 08/09/2020 BUN 74 Pertinent Medications Lantus NS 1 L Height 6 ft Weight 73.5 kg [place] Body Weight (kg) 80.90 BMI 21.9 Weight change and time frame weight change noted. Likely related to edema Weight Status Appropriate Subjective/Other Information F/U for TF. Pt remains on mechanical vent. TF held at this time for a procedure. No reports of TF intolerance prior to TF being held Percent of energy/protein needs met: 0%/0% Burn Absent Trauma Absent Current % PO Negligible Minimum of two criteria Yes Fluid Accumulation Moderate to Severe (severe) #2 Nutrition Diagnosis Increased nutrient needs ( specify in comment below) Diagnosis Progress(for reassessment Continues documentation) #1 Nutrition Diagnosis Inadequate oral intake Diagnosis Progress(for reassessment Continues documentation) Is patient on ventilator? Yes Is Patient Ambulatory and/or Out of Bed No REE-([facility]-confined to bed) 2211.187 Calculation Used for Recommendations [facility] Additional Notes Pro needs 1.2-2g/k-163g/ day Fluid needs 1ml/kcal Nutrition Intervention Change Diet Order: Restart TF when medically feasible Nutrition Support: Continue Vital AF 1.2 at 65ml/ hr with 100 ml water flush q4h . Kcal 1,872 Protein (gm) 117 Fluid (mL) 1,265 Add Supplement/Snack (indicate name/kcal Reji BID /protein ) Provides kCal: 190 Provides Protein (gm) 5 Goal #1 TF tolerance Goal #2 TF to meet at least 80% energy and pro needs Anticipated Discharge Needs: Unable to determine at this time Follow-Up By: 08/13/20 Additional Comments F/U for TF restart and intakes
[2020-08-11 10:00] LABS: Hematocrit 18.8 % (35.5-45.6)
[2020-08-11] MEDS: SENNOSIDES/DOCUSATE SODIUM 8.6/50 MG TAB FEEDTUBE SCH ×2 (10:25→22:25)
[2020-08-11] MEDS: cefTRIAXone/NS 2 GM/100 ML 2 GM/100 ML BAG IV SCH (10:25)
[2020-08-11] MEDS: FAMOTIDINE 20 MG TAB PO SCH ×2 (10:25→22:26)
[2020-08-11] MEDS: ASCORBIC ACID 500 MG TAB PO SCH ×2 (10:25→22:26)
[2020-08-11] MEDS: ZINC SULFATE 220 MG CAP PO SCH ×2 (10:25→22:25)
[2020-08-11] MEDS: amLODIPine 5 MG TAB PO SCH (10:25)
[2020-08-11] MEDS: METOPROLOL TARTRATE 25 MG TAB PO SCH ×2 (10:25→22:25)
[2020-08-11] MEDS: ENOXAPARIN 40 MG/0.4 ML INJ SUB-Q SCH (10:26)
[2020-08-11] MEDS: INSULIN GLARGINE 100 UNITS/ML SUB-Q SCH (10:27)
[2020-08-11 11:32] LABS: Hemoglobin 6.3 gm/dl (11.8-15.2)
[2020-08-11] MEDS ORDERED: SODIUM CHLORIDE 0.9% 500 ML 500 ML IV SCH ×2 (12:24→20:40)
[2020-08-11] MEDS: FLUCONAZOLE 400 MG 200 ML IV SCH (16:05)
--- NOTE | 2020-08-11 17:18 | Progress Note ---
Assessment and Plan Cultures: 07/28/2020 blood culture: C albicans 07/28/2020 urine culture: No growth COVID PCR: negative 07/31/2020 blood culture: Coag negative staph in 1 of 4 bottles (contaminant) 08/02/2020 blood culture: No growth 08/06/2020 resp culture: normal resp hawk 08/06/2020 BAL AFB stain: negative 08/06/2020 BAL fungal culture: Stain positive, culture in process. A/P: 69-year-old alf resident with quadriplegia, spinal cord injury, was brought in due to fever and sepsis: #Septic shock: Resolved likely due to candidemia +/-pneumonia. #Candidemia: Unclear source. ?IV line. Transthoracic echo without vegetation. Repeat blood culture no growth. #Pneumonia: CT chest showed patchy airspace disease suggestive of possible aspiration. Chest x-ray with left lung whiteout, got bronch with suctioning of mucous plug, cultures with normal resp hawk. #UTI with chronic indwelling catheter #Acute hypoxic respiratory failure: On mechanical ventilation. #Transaminitis: Likely sepsis/shock related. Improved. #Sacral decubitus ulcer: Does not appear infected. Continue wound care. Recs: -Continue fluconazole 400 mg IV once a day, complete 14 days from clearance of candidemia (end date: 08/14/2020) -for pneumonia continue IV Ceftriaxone, D3, plan 5-7 days Omkar Cabrera MD [facility], [place], [facility] ([facility] O: [phone] F: [phone] Subjective Date of service: 08/11/20 Principal diagnosis: Ac. encephalopathy; Ac. hypoxemic resp failure; Septic Shock; PNA; UTI; [place] Interval history: Afebrile with ongoing low temperatures, normal white count. Remains on the vent. Objective - Exam Narrative Exam: Physical Exam: Constitutional: sedated, intubated, on the vent Head, Ears, Nose: Normocephalic, atraumatic. Eyes: Conjunctivae/corneas clear. No icterus. Neck: intubated. Cervical collar present Oral: intubated Cardiovascular: S1, S2 + Respiratory: AE fair bilaterally and equal GI: Soft, bowel sounds + Musculoskeletal: No pedal edema, no cyanosis. Skin: Sacral decubitus with dressing Psych: no agitation Neurological: sedated, intubated, on the vent, exam limited - Constitutional Vitals: Vital Signs Temp Pulse Resp BP Pulse Ox 98.4 F 92 H 20 142/63 99 08/11/20 15:28 08/11/20 15:28 08/11/20 15:28 08/11/20 15:28 08/11/20 15:28 Temperature -Last 24 Hours Temperature 98.4 F Temperature 97.4 F Temperature 97.1 F Temperature 98.2 F Temperature 98.2 F Temperature 97.3 F Temperature 97.3 F Temperature 97.2 F Temperature 98.0 F Temperature 97.3 F Temperature 97.3 F Temperature 97.3 F Temperature 97.3 F Temperature 97.3 F Temperature 97.1 F Temperature 97.3 F Temperature 97.3 F Temperature 97.3 F Temperature 97.3 F Temperature 97.3 F Temperature 97.7 F Temperature 97.7 F Temperature 97.7 F Temperature 97.7 F Temperature 97.6 F Temperature 97.7 F Temperature 97.5 F - Labs CBC & Chem 7: 08/11/20 10:23 08/11/20 08:40 Labs: Abnormal lab results 08/10/20 08/10/20 08/11/20 Range/Units 18:08 23:11 04:12 RBC (3.65-5.03) M/mm3 Hgb (11.8-15.2) gm/dl Hct (35.5-45.6) % RDW (13.2-15.2) % POC ABG pO2 397.7 H (83-108) mmHg ABG Hemoglobin 7.6 L (12.0-17.5) ABG Oxyhemoglobin 98.8 H (94-98) ABG Chloride 113.0 H (98-107) mmol/L ABG Glucose 60 L (65-95) mg/dL Sodium (137-145) mmol/L Chloride (98-107) mmol/L BUN (9-20) mg/dL Creatinine (0.8-1.3) mg/dL Glucose (75-100) mg/dL POC Glucose 68 L (70-105) mg/dL Calcium (8.4-10.2) mg/dL Arterial Blood Glucose 60 L (65-95) mg/dL Arterial Blood Ionized Calcium 4.4 L (4.6-5.3) mg/dL Crossmatch See Detail 08/11/20 08/11/20 08/11/20 Range/Units 05:34 05:36 08:40 RBC 2.14 L (3.65-5.03) M/mm3 Hgb 6.2 L (11.8-15.2) gm/dl Hct 18.8 L* (35.5-45.6) % RDW 17.6 H (13.2-15.2) % POC ABG pO2 (83-108) mmHg ABG Hemoglobin (12.0-17.5) ABG Oxyhemoglobin (94-98) ABG Chloride (98-107) mmol/L ABG Glucose (65-95) mg/dL Sodium (137-145) mmol/L Chloride (98-107) mmol/L BUN (9-20) mg/dL Creatinine (0.8-1.3) mg/dL Glucose (75-100) mg/dL POC Glucose 55 L 51 L (70-105) mg/dL Calcium (8.4-10.2) mg/dL Arterial Blood Glucose (65-95) mg/dL Arterial Blood Ionized Calcium (4.6-5.3) mg/dL Crossmatch 08/11/20 08/11/20 08/11/20 Range/Units 08:40 10:23 11:56 RBC (3.65-5.03) M/mm3 Hgb 6.3 L (11.8-15.2) gm/dl Hct 19.0 L* (35.5-45.6) % RDW (13.2-15.2) % POC ABG pO2 (83-108) mmHg ABG Hemoglobin (12.0-17.5) ABG Oxyhemoglobin (94-98) ABG Chloride (98-107) mmol/L ABG Glucose (65-95) mg/dL Sodium 147 H (137-145) mmol/L Chloride 112.3 H (98-107) mmol/L BUN 62 H (9-20) mg/dL Creatinine 1.5 H (0.8-1.3) mg/dL Glucose 73 L (75-100) mg/dL POC Glucose 53 L (70-105) mg/dL Calcium 7.9 L (8.4-10.2) mg/dL Arterial Blood Glucose (65-95) mg/dL Arterial Blood Ionized Calcium (4.6-5.3) mg/dL Crossmatch
--- NOTE | 2020-08-11 18:09 | Progress Note ---
Assessment and Plan Acute possibly on chronic toxic metabolic encephalopathy Acute hypoxemic respiratory failure on MVS Severe sepsis with shock, presumably secondary to aspiration pneumonia Recent upper ext DVT (06/06) Aspiration pneumonia, bilateral Urinary tract infection History of quadriplegia Leukocytosis Anemia that is microcytic Coagulopathy. INR 2.17 at presentation Mild hypokalemia Acute kidney injury Metabolic lactic acidosis Non-ST elevation myocardial infarction Adult failure to thrive Moderate to severe protein calorie malnutrition - get stat H&H (lab draw) - stat CT abd & pelvis with contrast if H&H still < 8.0 g/dl - D51/2 NS @ 50mls/hr X 1 liter re: azotemia - discussed with vascular team and we will also image chest in phases re: w/o & with IV contrast - continue fentanyl patch but wean to 75 janelle's/hr - continue metoprolol 12.5 mg p.o. bid re: tachycardia - keep peep at 8 - LTAC evaluation ongoing - continue care as below otherwise; - prn Levophed for target MAP > 65 mmHg - continue to wean supplemental oxygen for target O2 sat's > 90% acutely - VAP bundle addressed - continue lung protective strategies - continue bronchodilators with routine trach care and pulmonary hygiene per RT - wean per pulmonary driven protocols otherwise - avoid nephrotoxins, renally dose all medications - continue to avoid benzodiazepine's, reduce the possibility of delirium - complete AB's per ID rec's - prn analgesia per CPOT score - Maintenance of sleep-wake cycle, avoid delirium - continue enteral nutritional support at goal rate as tolerated - G.I. & VTE prophylaxis - PT/OT/ROM exercises - continue mobility protocols for pressure ulcer prophylaxis - Monitor hemodynamics closely - continue other care per attending / other consultants - discharge planning ongoing concurrently COVID SPECIFIC INTERVENTIONS: - COVID test result negative .... Re-evaluate in am & prn CONDITION: CRITICAL PROGNOSIS: GUARDED CODE STATUS: FULL CODE The high probability of a clinically significant, sudden or life-threatening deterioration of the [respiratory, cardiovascular & neurologic] system(s) requi red my full and direct attention, intervention and personal management. The aggregate critical care time was [44] minutes without overlap. Time includes spent on; [x] Data Review and interpretation [x] Patient assessment and monitoring of vital signs [x] Documentation [x] Medication orders and management Subjective Date of service: 08/11/20 Principal diagnosis: Ac. encephalopathy; Ac. hypoxemic resp failure; Septic Shock; PNA; UTI; JEFFERSON Interval history: Patient is seen today for: Acute encephalopathy; Acute hypoxemic respiratory failure; Septic Shock; Aspiration pneumonia; UTI; quadriplegia; JEFFERSON Seen and examined at bedside; 24hour events reviewed; nursing and respiratory care staff consulted; no adverse overnight events reported to me; resting in bed; s/p tracheostomy yesterday and no gross bleeding reported but has received 4 units PRBC's today for Hb of 6.1 without rise in H&H Objective Vital Signs - 12hr 08/11/20 08/11/20 08/11/20 06:10 06:15 06:16 Temperature 97.3 F L Pulse Rate 85 93 H 85 Respiratory 22 24 Rate Blood Pressure 127/58 O2 Sat by Pulse 100 99 Oximetry O2 Sat by Pulse Oximetry [ Assessment] 08/11/20 08/11/20 08/11/20 06:31 06:45 07:00 Temperature 98.0 F Pulse Rate 82 88 Respiratory 17 20 Rate Blood Pressure O2 Sat by Pulse 100 100 Oximetry O2 Sat by Pulse Oximetry [ Assessment] 08/11/20 08/11/20 08/11/20 07:01 07:09 07:15 Temperature Pulse Rate 89 92 H 87 Respiratory 23 23 Rate Blood Pressure 128/54 O2 Sat by Pulse 100 100 100 Oximetry O2 Sat by Pulse 100 Oximetry [ Assessment] 08/11/20 08/11/20 08/11/20 07:31 07:45 08:00 Temperature Pulse Rate 92 H 89 92 H Respiratory 24 28 H Rate Blood Pressure O2 Sat by Pulse 99 87 Oximetry O2 Sat by Pulse Oximetry [ Assessment] 08/11/20 08/11/20 08/11/20 08:01 08:15 08:31 Temperature Pulse Rate 92 H 95 H 96 H Respiratory 29 H 22 22 Rate Blood Pressure O2 Sat by Pulse 81 L 86 96 Oximetry O2 Sat by Pulse Oximetry [ Assessment] 08/11/20 08/11/20 08/11/20 08:45 09:01 09:15 Temperature Pulse Rate 87 93 H 96 H Respiratory 17 19 30 H Rate Blood Pressure O2 Sat by Pulse 100 100 94 Oximetry O2 Sat by Pulse Oximetry [ Assessment] 08/11/20 08/11/20 08/11/20 09:31 09:50 09:52 Temperature Pulse Rate 94 H 89 94 H Respiratory 22 25 H 22 Rate Blood Pressure 138/63 O2 Sat by Pulse 89 98 95 Oximetry O2 Sat by Pulse Oximetry [ Assessment] 08/11/20 08/11/20 08/11/20 10:00 10:16 10:25 Temperature Pulse Rate 89 83 92 H Respiratory 18 20 Rate Blood Pressure 144/75 O2 Sat by Pulse 99 97 Oximetry O2 Sat by Pulse Oximetry [ Assessment] 08/11/20 08/11/20 08/11/20 10:30 10:46 11:00 Temperature Pulse Rate 85 91 H 83 Respiratory 27 H 24 20 Rate Blood Pressure O2 Sat by Pulse 99 99 99 Oximetry O2 Sat by Pulse Oximetry [ Assessment] 08/11/20 08/11/20 08/11/20 11:12 11:16 11:30 Temperature Pulse Rate 95 H 87 87 Respiratory 24 21 19 Rate Blood Pressure 143/63 O2 Sat by Pulse 99 99 99 Oximetry O2 Sat by Pulse Oximetry [ Assessment] 08/11/20 08/11/20 08/11/20 11:46 12:00 12:16 Temperature 97.2 F L Pulse Rate 78 79 79 Respiratory 18 19 18 Rate Blood Pressure O2 Sat by Pulse 99 100 98 Oximetry O2 Sat by Pulse Oximetry [ Assessment] 08/11/20 08/11/20 08/11/20 12:30 12:46 13:00 Temperature Pulse Rate 81 91 H 87 Respiratory 18 25 H 16 Rate Blood Pressure O2 Sat by Pulse 98 99 98 Oximetry O2 Sat by Pulse Oximetry [ Assessment] 08/11/20 08/11/20 08/11/20 13:16 13:30 13:45 Temperature 97.3 F L Pulse Rate 86 85 91 H Respiratory 19 22 22 Rate Blood Pressure 146/60 O2 Sat by Pulse 98 99 97 Oximetry O2 Sat by Pulse Oximetry [ Assessment] 08/11/20 08/11/20 08/11/20 13:46 14:00 14:16 Temperature 97.3 F L Pulse Rate 56 L 82 90 Respiratory 20 20 18 Rate Blood Pressure 123/77 O2 Sat by Pulse 99 98 98 Oximetry O2 Sat by Pulse Oximetry [ Assessment] 08/11/20 08/11/20 08/11/20 14:28 14:30 14:46 Temperature 98.2 F 98.2 F Pulse Rate 82 85 81 Respiratory 17 29 H 16 Rate Blood Pressure 124/56 124/56 O2 Sat by Pulse 92 98 99 Oximetry O2 Sat by Pulse Oximetry [ Assessment] 08/11/20 08/11/20 08/11/20 14:58 15:00 15:03 Temperature 97.1 F L Pulse Rate 92 H 92 H 87 Respiratory 18 27 H 30 H Rate Blood Pressure 136/68 139/60 O2 Sat by Pulse 99 99 99 Oximetry O2 Sat by Pulse 99 Oximetry [ Assessment] 08/11/20 08/11/20 08/11/20 15:16 15:23 15:28 Temperature 97.4 F L 98.4 F Pulse Rate 86 92 H Respiratory 24 20 Rate Blood Pressure 142/63 O2 Sat by Pulse 99 99 Oximetry O2 Sat by Pulse Oximetry [ Assessment] 08/11/20 08/11/20 08/11/20 15:30 15:40 15:46 Temperature 98.1 F Pulse Rate 73 101 H 95 H Respiratory 15 24 31 H Rate Blood Pressure 128/71 O2 Sat by Pulse 99 89 99 Oximetry O2 Sat by Pulse Oximetry [ Assessment] 08/11/20 08/11/20 08/11/20 15:55 16:00 16:16 Temperature 97.5 F L Pulse Rate 96 H 96 H 106 H Respiratory 21 32 H 11 L Rate Blood Pressure 137/75 O2 Sat by Pulse 86 100 97 Oximetry O2 Sat by Pulse Oximetry [ Assessment] 08/11/20 08/11/20 08/11/20 16:35 16:46 16:55 Temperature 97.6 F 97.9 F Pulse Rate 87 84 79 Respiratory 26 H 24 25 H Rate Blood Pressure 139/77 139/64 O2 Sat by Pulse 86 92 100 Oximetry O2 Sat by Pulse Oximetry [ Assessment] 08/11/20 08/11/20 08/11/20 17:00 17:05 17:16 Temperature 97.8 F Pulse Rate 81 80 86 Respiratory 25 H 24 25 H Rate Blood Pressure 147/82 O2 Sat by Pulse 88 99 99 Oximetry O2 Sat by Pulse Oximetry [ Assessment] 08/11/20 08/11/20 08/11/20 17:30 17:46 17:54 Temperature 98.3 F Pulse Rate 90 84 Respiratory 28 H 27 H Rate Blood Pressure O2 Sat by Pulse 99 99 Oximetry O2 Sat by Pulse Oximetry [ Assessment] 08/11/20 18:00 Temperature Pulse Rate 84 Respiratory 28 H Rate Blood Pressure O2 Sat by Pulse 100 Oximetry O2 Sat by Pulse Oximetry [ Assessment] Constitutional: appears uncomfortable, other ( chronically ill looking male with mildly increased respiratory effort at rest on MVS) Eyes: non-icteric ENT: oropharynx dry, other (ETT 24 cm KEVIN) Neck: supple, no lymphadenopathy, no JVD Effort: mildly labored Ascultation: Bilateral: diminished breath sounds, rhonchi Percussion: Bilateral: not dull Cardiovascular: regular rate and rhythm, other (S1,S2) Gastrointestinal: normoactive bowel sounds, soft, non-tender, non-distended, other (no patricio cullens sign) Integumentary: rash, decubitus ulcer (sacral (POA)) Extremities: no cyanosis, pulses normal, edema (lower extremities and bilatral upper extremity) Neurologic: pupils equal and round, unable to assess, other (quadriplegic, biting on ETT) Psychiatric: other (delirious) CBC and BMP: 08/12/20 07:55 08/12/20 07:55 ABG, PT/INR, D-dimer: ABG ABG pH 7.438 (7.320-7.450) 08/11/20 04:12 POC ABG pCO2 37.7 mmHg (32.0-48.0) 08/11/20 04:12 ABG pCO2 44.2 mm Hg 08/07/20 14:30 POC ABG pO2 397.7 mmHg (83-108) H 08/11/20 04:12 ABG pO2 62.9 mm Hg (80.0-90.0) L 08/07/20 14:30 POC ABG HCO3 24.9 08/11/20 04:12 ABG O2 Saturation 99.7 (0-100) 08/11/20 04:12 PT/INR, D-dimer PT 15.5 Sec. (12.2-14.9) H 08/09/20 21:25 INR 1.17 (0.87-1.13) H 08/09/20 21:25 Abnormal lab findings: Abnormal Labs 07/28/20 07/28/20 07/28/20 08:48 08:48 08:48 WBC 17.0 H RBC 2.77 L Hgb 8.2 L Hct 26.5 L MCV 96 H MCH MCHC 31 L RDW 16.2 H Plt Count Seg Neuts % (Manual) Lymphocytes % (Manual) Seg Neutrophils # Man Lymphocytes # (Manual) PT 24.7 H INR 2.17 H ABG pH POC ABG pCO2 POC ABG pO2 ABG pO2 ABG O2 Saturation ABG Hemoglobin ABG Oxyhemoglobin ABG Sodium ABG Potassium ABG Chloride ABG Glucose Oxyhemoglobin Carboxyhemoglobin Sodium 135 L Potassium 3.5 L Chloride 97.6 L Carbon Dioxide BUN 44 H Creatinine 1.6 H Glucose 431 H POC Glucose Hemoglobin A1c Lactic Acid Calcium 7.9 L Ionized Calcium Phosphorus AST 81 H ALT Alkaline Phosphatase Ammonia Total Creatine Kinase 486 H Troponin T 0.115 H* C-Reactive Protein Total Protein 5.6 L Albumin 2.6 L Triglycerides LDL Cholesterol Direct 44 L HDL Cholesterol 26 L Arterial Blood Glucose Arterial Blood Ionized Calcium Urine WBC (Auto) Salicylates Crossmatch 07/28/20 07/28/20 07/28/20 08:48 09:44 09:44 WBC RBC Hgb Hct MCV MCH MCHC RDW Plt Count Seg Neuts % (Manual) Lymphocytes % (Manual) Seg Neutrophils # Man Lymphocytes # (Manual) PT INR ABG pH POC ABG pCO2 POC ABG pO2 ABG pO2 ABG O2 Saturation ABG Hemoglobin ABG Oxyhemoglobin ABG Sodium ABG Potassium ABG Chloride ABG Glucose Oxyhemoglobin Carboxyhemoglobin Sodium Potassium Chloride Carbon Dioxide BUN Creatinine Glucose POC Glucose Hemoglobin A1c Lactic Acid 3.80 H* Calcium Ionized Calcium Phosphorus AST ALT Alkaline Phosphatase Ammonia 63.0 H Total Creatine Kinase Troponin T C-Reactive Protein Total Protein Albumin Triglycerides LDL Cholesterol Direct HDL Cholesterol Arterial Blood Glucose Arterial Blood Ionized Calcium Urine WBC (Auto) Salicylates < 0.3 L Crossmatch 07/28/20 07/28/20 07/28/20 10:18 14:38 15:58 WBC RBC Hgb Hct MCV MCH MCHC RDW Plt Count Seg Neuts % (Manual) Lymphocytes % (Manual) Seg Neutrophils # Man Lymphocytes # (Manual) PT INR ABG pH POC ABG pCO2 POC ABG pO2 ABG pO2 78.0 L ABG O2 Saturation ABG Hemoglobin 7.6 L ABG Oxyhemoglobin ABG Sodium ABG Potassium ABG Chloride ABG Glucose Oxyhemoglobin Carboxyhemoglobin Sodium Potassium Chloride Carbon Dioxide BUN Creatinine Glucose POC Glucose 265 H Hemoglobin A1c Lactic Acid 3.90 H* Calcium Ionized Calcium Phosphorus AST ALT Alkaline Phosphatase Ammonia Total Creatine Kinase Troponin T C-Reactive Protein Total Protein Albumin Triglycerides LDL Cholesterol Direct HDL Cholesterol Arterial Blood Glucose Arterial Blood Ionized Calcium Urine WBC (Auto) Salicylates Crossmatch 07/28/20 07/28/20 07/28/20 19:50 21:00 Unknown WBC RBC Hgb Hct MCV MCH MCHC RDW Plt Count Seg Neuts % (Manual) Lymphocytes % (Manual) Seg Neutrophils # Man Lymphocytes # (Manual) PT INR ABG pH 7.107 L POC ABG pCO2 65.6 H POC ABG pO2 ABG pO2 ABG O2 Saturation ABG Hemoglobin 9.9 L ABG Oxyhemoglobin ABG Sodium ABG Potassium ABG Chloride 108.0 H ABG Glucose 299 H Oxyhemoglobin Carboxyhemoglobin 0.2 L Sodium Potassium Chloride Carbon Dioxide BUN Creatinine Glucose POC Glucose Hemoglobin A1c Lactic Acid Calcium Ionized Calcium Phosphorus 5.40 H AST ALT Alkaline Phosphatase Ammonia Total Creatine Kinase Troponin T C-Reactive Protein 9.00 H Total Protein Albumin Triglycerides LDL Cholesterol Direct HDL Cholesterol Arterial Blood Glucose 299 H Arterial Blood Ionized Calcium 4.2 L Urine WBC (Auto) > 182.0 H Salicylates Crossmatch 07/29/20 07/29/20 07/29/20 04:02 13:00 17:13 WBC RBC Hgb Hct MCV MCH MCHC RDW Plt Count Seg Neuts % (Manual) Lymphocytes % (Manual) Seg Neutrophils # Man Lymphocytes # (Manual) PT INR ABG pH 7.212 L POC ABG pCO2 52.5 H POC ABG pO2 128.3 H ABG pO2 ABG O2 Saturation ABG Hemoglobin 10.5 L ABG Oxyhemoglobin ABG Sodium ABG Potassium ABG Chloride 108.0 H ABG Glucose 239 H Oxyhemoglobin Carboxyhemoglobin Sodium Potassium Chloride Carbon Dioxide BUN Creatinine Glucose POC Glucose 212 H 257 H Hemoglobin A1c Lactic Acid Calcium Ionized Calcium Phosphorus AST ALT Alkaline Phosphatase Ammonia Total Creatine Kinase Troponin T C-Reactive Protein Total Protein Albumin Triglycerides LDL Cholesterol Direct HDL Cholesterol Arterial Blood Glucose 239 H Arterial Blood Ionized Calcium 4.0 L Urine WBC (Auto) Salicylates Crossmatch 07/29/20 07/29/20 07/29/20 21:00 23:20 Unknown WBC RBC 3.05 L Hgb 9.7 L Hct 28.6 L MCV MCH MCHC RDW 16.1 H Plt Count Seg Neuts % (Manual) 75.0 H Lymphocytes % (Manual) 2.0 L Seg Neutrophils # Man Lymphocytes # (Manual) 0.2 L PT INR ABG pH 7.286 L POC ABG pCO2 POC ABG pO2 ABG pO2 ABG O2 Saturation ABG Hemoglobin 9.1 L ABG Oxyhemoglobin ABG Sodium ABG Potassium ABG Chloride 109.0 H ABG Glucose 285 H Oxyhemoglobin Carboxyhemoglobin Sodium Potassium Chloride Carbon Dioxide BUN Creatinine Glucose POC Glucose 233 H Hemoglobin A1c Lactic Acid Calcium Ionized Calcium Phosphorus AST ALT Alkaline Phosphatase Ammonia Total Creatine Kinase Troponin T C-Reactive Protein Total Protein Albumin Triglycerides LDL Cholesterol Direct HDL Cholesterol Arterial Blood Glucose 285 H Arterial Blood Ionized Calcium 3.9 L Urine WBC (Auto) Salicylates Crossmatch 07/29/20 07/29/20 07/30/20 Unknown Unknown 05:30 WBC RBC Hgb Hct MCV MCH MCHC RDW Plt Count Seg Neuts % (Manual) Lymphocytes % (Manual) Seg Neutrophils # Man Lymphocytes # (Manual) PT INR ABG pH POC ABG pCO2 POC ABG pO2 ABG pO2 ABG O2 Saturation ABG Hemoglobin ABG Oxyhemoglobin ABG Sodium ABG Potassium ABG Chloride ABG Glucose Oxyhemoglobin Carboxyhemoglobin Sodium Potassium Chloride 108.4 H Carbon Dioxide 21 L BUN 41 H Creatinine Glucose 217 H POC Glucose 245 H Hemoglobin A1c Lactic Acid 2.70 H* Calcium 6.5 L D Ionized Calcium Phosphorus AST 104 H ALT 74 H Alkaline Phosphatase Ammonia Total Creatine Kinase Troponin T C-Reactive Protein Total Protein 5.1 L Albumin 2.4 L Triglycerides LDL Cholesterol Direct HDL Cholesterol Arterial Blood Glucose Arterial Blood Ionized Calcium Urine WBC (Auto) Salicylates Crossmatch 07/30/20 07/30/20 07/30/20 05:45 05:45 12:12 WBC RBC 2.50 L Hgb 7.8 L Hct 23.3 L MCV MCH MCHC RDW 16.4 H Plt Count Seg Neuts % (Manual) Lymphocytes % (Manual) Seg Neutrophils # Man Lymphocytes # (Manual) PT INR ABG pH POC ABG pCO2 POC ABG pO2 ABG pO2 ABG O2 Saturation ABG Hemoglobin ABG Oxyhemoglobin ABG Sodium ABG Potassium ABG Chloride ABG Glucose Oxyhemoglobin Carboxyhemoglobin Sodium Potassium Chloride 108.4 H Carbon Dioxide 21 L BUN 44 H Creatinine 1.4 H Glucose 279 H POC Glucose 243 H Hemoglobin A1c Lactic Acid Calcium 6.7 L Ionized Calcium Phosphorus AST 51 H ALT Alkaline Phosphatase Ammonia Total Creatine Kinase Troponin T C-Reactive Protein Total Protein 5.5 L Albumin 2.3 L Triglycerides LDL Cholesterol Direct HDL Cholesterol Arterial Blood Glucose Arterial Blood Ionized Calcium Urine WBC (Auto) Salicylates Crossmatch 07/30/20 07/30/20 07/30/20 15:50 17:20 19:01 WBC RBC Hgb Hct MCV MCH MCHC RDW Plt Count Seg Neuts % (Manual) Lymphocytes % (Manual) Seg Neutrophils # Man Lymphocytes # (Manual) PT INR ABG pH POC ABG pCO2 POC ABG pO2 147.2 H ABG pO2 ABG O2 Saturation ABG Hemoglobin 7.2 L ABG Oxyhemoglobin ABG Sodium ABG Potassium 3.3 L ABG Chloride 115.0 H ABG Glucose 269 H Oxyhemoglobin Carboxyhemoglobin 1.6 H Sodium Potassium Chloride Carbon Dioxide BUN Creatinine Glucose POC Glucose 260 H Hemoglobin A1c Lactic Acid Calcium Ionized Calcium 4.2 L Phosphorus AST ALT Alkaline Phosphatase Ammonia Total Creatine Kinase Troponin T C-Reactive Protein Total Protein Albumin Triglycerides LDL Cholesterol Direct HDL Cholesterol Arterial Blood Glucose 269 H Arterial Blood Ionized Calcium 3.5 L Urine WBC (Auto) Salicylates Crossmatch 07/30/20 07/31/20 07/31/20 23:16 04:04 04:47 WBC RBC Hgb Hct MCV MCH MCHC RDW Plt Count Seg Neuts % (Manual) Lymphocytes % (Manual) Seg Neutrophils # Man Lymphocytes # (Manual) PT INR ABG pH POC ABG pCO2 POC ABG pO2 ABG pO2 ABG O2 Saturation ABG Hemoglobin 7.6 L ABG Oxyhemoglobin ABG Sodium ABG Potassium 3.3 L ABG Chloride 113.0 H ABG Glucose 348 H Oxyhemoglobin Carboxyhemoglobin 0.4 L Sodium Potassium Chloride Carbon Dioxide BUN Creatinine Glucose POC Glucose 298 H 297 H Hemoglobin A1c Lactic Acid Calcium Ionized Calcium Phosphorus AST ALT Alkaline Phosphatase Ammonia Total Creatine Kinase Troponin T C-Reactive Protein Total Protein Albumin Triglycerides LDL Cholesterol Direct HDL Cholesterol Arterial Blood Glucose 348 H Arterial Blood Ionized Calcium 4.1 L Urine WBC (Auto) Salicylates Crossmatch 07/31/20 07/31/20 07/31/20 07:26 07:26 11:54 WBC RBC 2.29 L Hgb 7.2 L Hct 21.5 L MCV MCH MCHC RDW 16.7 H Plt Count Seg Neuts % (Manual) Lymphocytes % (Manual) Seg Neutrophils # Man Lymphocytes # (Manual) PT INR ABG pH POC ABG pCO2 POC ABG pO2 ABG pO2 ABG O2 Saturation ABG Hemoglobin ABG Oxyhemoglobin ABG Sodium ABG Potassium ABG Chloride ABG Glucose Oxyhemoglobin Carboxyhemoglobin Sodium Potassium 3.4 L Chloride 109.4 H Carbon Dioxide BUN 45 H Creatinine 1.4 H Glucose 304 H POC Glucose 302 H Hemoglobin A1c Lactic Acid Calcium 6.9 L Ionized Calcium Phosphorus AST ALT Alkaline Phosphatase Ammonia Total Creatine Kinase Troponin T C-Reactive Protein Total Protein Albumin Triglycerides LDL Cholesterol Direct HDL Cholesterol Arterial Blood Glucose Arterial Blood Ionized Calcium Urine WBC (Auto) Salicylates Crossmatch 07/31/20 08/01/20 08/01/20 21:27 03:09 04:30 WBC RBC 2.29 L Hgb 7.0 L Hct 20.7 L MCV MCH MCHC RDW 16.2 H Plt Count 125 L Seg Neuts % (Manual) Lymphocytes % (Manual) Seg Neutrophils # Man Lymphocytes # (Manual) PT INR ABG pH POC ABG pCO2 POC ABG pO2 ABG pO2 ABG O2 Saturation ABG Hemoglobin 7.4 L ABG Oxyhemoglobin ABG Sodium 146.9 H ABG Potassium 3.2 L ABG Chloride 116.0 H ABG Glucose 113 H Oxyhemoglobin Carboxyhemoglobin Sodium Potassium Chloride Carbon Dioxide BUN Creatinine Glucose POC Glucose 138 H Hemoglobin A1c Lactic Acid Calcium Ionized Calcium Phosphorus AST ALT Alkaline Phosphatase Ammonia Total Creatine Kinase Troponin T C-Reactive Protein Total Protein Albumin Triglycerides LDL Cholesterol Direct HDL Cholesterol Arterial Blood Glucose 113 H Arterial Blood Ionized Calcium 4.5 L Urine WBC (Auto) Salicylates Crossmatch 08/01/20 08/01/20 08/01/20 04:30 04:30 08:40 WBC RBC Hgb Hct MCV MCH MCHC RDW Plt Count Seg Neuts % (Manual) Lymphocytes % (Manual) Seg Neutrophils # Man Lymphocytes # (Manual) PT INR ABG pH POC ABG pCO2 POC ABG pO2 ABG pO2 ABG O2 Saturation ABG Hemoglobin ABG Oxyhemoglobin ABG Sodium ABG Potassium ABG Chloride ABG Glucose Oxyhemoglobin Carboxyhemoglobin Sodium 148 H Potassium 3.4 L Chloride 114.3 H Carbon Dioxide BUN 43 H Creatinine Glucose 109 H POC Glucose Hemoglobin A1c 8.8 H Lactic Acid Calcium 8.1 L D Ionized Calcium Phosphorus AST ALT Alkaline Phosphatase Ammonia Total Creatine Kinase Troponin T C-Reactive Protein Total Protein Albumin Triglycerides LDL Cholesterol Direct HDL Cholesterol Arterial Blood Glucose Arterial Blood Ionized Calcium Urine WBC (Auto) Salicylates Crossmatch See Detail 08/01/20 08/01/20 08/01/20 08:40 17:03 23:35 WBC RBC Hgb Hct MCV MCH MCHC RDW Plt Count Seg Neuts % (Manual) Lymphocytes % (Manual) Seg Neutrophils # Man Lymphocytes # (Manual) PT INR ABG pH POC ABG pCO2 POC ABG pO2 ABG pO2 ABG O2 Saturation ABG Hemoglobin ABG Oxyhemoglobin ABG Sodium ABG Potassium ABG Chloride ABG Glucose Oxyhemoglobin Carboxyhemoglobin Sodium Potassium Chloride Carbon Dioxide BUN Creatinine Glucose POC Glucose 129 H 172 H Hemoglobin A1c Lactic Acid Calcium Ionized Calcium Phosphorus 1.70 L AST ALT Alkaline Phosphatase Ammonia Total Creatine Kinase Troponin T C-Reactive Protein Total Protein Albumin Triglycerides LDL Cholesterol Direct HDL Cholesterol Arterial Blood Glucose Arterial Blood Ionized Calcium Urine WBC (Auto) Salicylates Crossmatch 08/02/20 08/02/20 08/02/20 03:50 05:46 10:54 WBC RBC Hgb Hct MCV MCH MCHC RDW Plt Count Seg Neuts % (Manual) Lymphocytes % (Manual) Seg Neutrophils # Man Lymphocytes # (Manual) PT INR ABG pH 7.333 L POC ABG pCO2 POC ABG pO2 ABG pO2 91.5 H ABG O2 Saturation ABG Hemoglobin 7.9 L ABG Oxyhemoglobin ABG Sodium ABG Potassium ABG Chloride ABG Glucose Oxyhemoglobin Carboxyhemoglobin Sodium Potassium Chloride Carbon Dioxide BUN Creatinine Glucose POC Glucose 161 H 228 H Hemoglobin A1c Lactic Acid Calcium Ionized Calcium Phosphorus AST ALT Alkaline Phosphatase Ammonia Total Creatine Kinase Troponin T C-Reactive Protein Total Protein Albumin Triglycerides LDL Cholesterol Direct HDL Cholesterol Arterial Blood Glucose Arterial Blood Ionized Calcium Urine WBC (Auto) Salicylates Crossmatch 08/02/20 08/02/20 08/02/20 17:20 23:13 Unknown WBC RBC 2.66 L Hgb 8.1 L Hct 23.9 L MCV MCH MCHC RDW 16.8 H Plt Count 110 L Seg Neuts % (Manual) Lymphocytes % (Manual) Seg Neutrophils # Man Lymphocytes # (Manual) PT INR ABG pH POC ABG pCO2 POC ABG pO2 ABG pO2 ABG O2 Saturation ABG Hemoglobin ABG Oxyhemoglobin ABG Sodium ABG Potassium ABG Chloride ABG Glucose Oxyhemoglobin Carboxyhemoglobin Sodium Potassium Chloride Carbon Dioxide BUN Creatinine Glucose POC Glucose 214 H 132 H Hemoglobin A1c Lactic Acid Calcium Ionized Calcium Phosphorus AST ALT Alkaline Phosphatase Ammonia Total Creatine Kinase Troponin T C-Reactive Protein Total Protein Albumin Triglycerides LDL Cholesterol Direct HDL Cholesterol Arterial Blood Glucose Arterial Blood Ionized Calcium Urine WBC (Auto) Salicylates Crossmatch 08/02/20 08/02/20 08/03/20 Unknown Unknown 02:59 WBC RBC Hgb Hct MCV MCH MCHC RDW Plt Count Seg Neuts % (Manual) Lymphocytes % (Manual) Seg Neutrophils # Man Lymphocytes # (Manual) PT INR ABG pH POC ABG pCO2 POC ABG pO2 ABG pO2 ABG O2 Saturation ABG Hemoglobin 8.1 L ABG Oxyhemoglobin ABG Sodium ABG Potassium ABG Chloride 113.0 H ABG Glucose 143 H Oxyhemoglobin Carboxyhemoglobin Sodium 150 H Potassium 3.5 L Chloride 115.9 H Carbon Dioxide BUN 42 H Creatinine Glucose 188 H POC Glucose Hemoglobin A1c Lactic Acid Calcium 7.8 L Ionized Calcium Phosphorus 2.30 L D AST ALT Alkaline Phosphatase Ammonia Total Creatine Kinase Troponin T C-Reactive Protein Total Protein Albumin Triglycerides LDL Cholesterol Direct HDL Cholesterol Arterial Blood Glucose 143 H Arterial Blood Ionized Calcium Urine WBC (Auto) Salicylates Crossmatch 08/03/20 08/03/20 08/03/20 04:16 04:16 05:12 WBC RBC 2.62 L Hgb 8.1 L Hct 24.1 L MCV MCH MCHC RDW 17.4 H Plt Count 118 L Seg Neuts % (Manual) Lymphocytes % (Manual) Seg Neutrophils # Man Lymphocytes # (Manual) PT INR ABG pH POC ABG pCO2 POC ABG pO2 ABG pO2 ABG O2 Saturation ABG Hemoglobin ABG Oxyhemoglobin ABG Sodium ABG Potassium ABG Chloride ABG Glucose Oxyhemoglobin Carboxyhemoglobin Sodium 148 H Potassium Chloride 114.5 H Carbon Dioxide BUN 47 H Creatinine Glucose 158 H POC Glucose 164 H Hemoglobin A1c Lactic Acid Calcium 8.1 L Ionized Calcium Phosphorus 2.30 L AST ALT Alkaline Phosphatase Ammonia Total Creatine Kinase Troponin T C-Reactive Protein Total Protein Albumin Triglycerides LDL Cholesterol Direct HDL Cholesterol Arterial Blood Glucose Arterial Blood Ionized Calcium Urine WBC (Auto) Salicylates Crossmatch 08/03/20 08/03/20 08/03/20 11:26 17:33 23:47 WBC RBC Hgb Hct MCV MCH MCHC RDW Plt Count Seg Neuts % (Manual) Lymphocytes % (Manual) Seg Neutrophils # Man Lymphocytes # (Manual) PT INR ABG pH POC ABG pCO2 POC ABG pO2 ABG pO2 ABG O2 Saturation ABG Hemoglobin ABG Oxyhemoglobin ABG Sodium ABG Potassium ABG Chloride ABG Glucose Oxyhemoglobin Carboxyhemoglobin Sodium Potassium Chloride Carbon Dioxide BUN Creatinine Glucose POC Glucose 190 H 235 H 194 H Hemoglobin A1c Lactic Acid Calcium Ionized Calcium Phosphorus AST ALT Alkaline Phosphatase Ammonia Total Creatine Kinase Troponin T C-Reactive Protein Total Protein Albumin Triglycerides LDL Cholesterol Direct HDL Cholesterol Arterial Blood Glucose Arterial Blood Ionized Calcium Urine WBC (Auto) Salicylates Crossmatch 08/04/20 08/04/20 08/04/20 03:00 03:00 04:14 WBC RBC Hgb Hct MCV MCH MCHC RDW Plt Count Seg Neuts % (Manual) Lymphocytes % (Manual) Seg Neutrophils # Man Lymphocytes # (Manual) PT INR ABG pH POC ABG pCO2 POC ABG pO2 79.5 L ABG pO2 ABG O2 Saturation ABG Hemoglobin 9.9 L ABG Oxyhemoglobin ABG Sodium ABG Potassium ABG Chloride 113.0 H ABG Glucose 227 H Oxyhemoglobin Carboxyhemoglobin 0.3 L Sodium Potassium Chloride 111.4 H Carbon Dioxide BUN 51 H Creatinine Glucose 218 H POC Glucose Hemoglobin A1c Lactic Acid Calcium Ionized Calcium Phosphorus AST ALT Alkaline Phosphatase Ammonia Total Creatine Kinase Troponin T C-Reactive Protein Total Protein Albumin Triglycerides 184 H LDL Cholesterol Direct HDL Cholesterol Arterial Blood Glucose 227 H Arterial Blood Ionized Calcium Urine WBC (Auto) Salicylates Crossmatch 08/04/20 08/04/20 08/04/20 05:17 11:52 11:53 WBC RBC Hgb Hct MCV MCH MCHC RDW Plt Count Seg Neuts % (Manual) Lymphocytes % (Manual) Seg Neutrophils # Man Lymphocytes # (Manual) PT INR ABG pH POC ABG pCO2 POC ABG pO2 ABG pO2 ABG O2 Saturation ABG Hemoglobin ABG Oxyhemoglobin ABG Sodium ABG Potassium ABG Chloride ABG Glucose Oxyhemoglobin Carboxyhemoglobin Sodium Potassium Chloride Carbon Dioxide BUN Creatinine Glucose POC Glucose 224 H 253 H 237 H Hemoglobin A1c Lactic Acid Calcium Ionized Calcium Phosphorus AST ALT Alkaline Phosphatase Ammonia Total Creatine Kinase Troponin T C-Reactive Protein Total Protein Albumin Triglycerides LDL Cholesterol Direct HDL Cholesterol Arterial Blood Glucose Arterial Blood Ionized Calcium Urine WBC (Auto) Salicylates Crossmatch 0608/04/20 08/04/20 15:35 16:25 17:45 WBC 21.5 H RBC 2.10 L Hgb 7.3 L Hct 22.0 L MCV MCH 33 H MCHC 37 H RDW 17.2 H Plt Count 133 L Seg Neuts % (Manual) Lymphocytes % (Manual) Seg Neutrophils # Man Lymphocytes # (Manual) PT INR ABG pH POC ABG pCO2 POC ABG pO2 ABG pO2 ABG O2 Saturation ABG Hemoglobin ABG Oxyhemoglobin ABG Sodium ABG Potassium ABG Chloride ABG Glucose Oxyhemoglobin Carboxyhemoglobin Sodium Potassium Chloride Carbon Dioxide BUN Creatinine Glucose POC Glucose 230 H 218 H Hemoglobin A1c Lactic Acid Calcium Ionized Calcium Phosphorus AST ALT Alkaline Phosphatase Ammonia Total Creatine Kinase Troponin T C-Reactive Protein Total Protein Albumin Triglycerides LDL Cholesterol Direct HDL Cholesterol Arterial Blood Glucose Arterial Blood Ionized Calcium Urine WBC (Auto) Salicylates Crossmatch 08/04/20 08/05/20 08/05/20 23:11 03:28 05:25 WBC RBC Hgb Hct MCV MCH MCHC RDW Plt Count Seg Neuts % (Manual) Lymphocytes % (Manual) Seg Neutrophils # Man Lymphocytes # (Manual) PT INR ABG pH POC ABG pCO2 POC ABG pO2 82.1 L ABG pO2 ABG O2 Saturation ABG Hemoglobin 8.6 L ABG Oxyhemoglobin 93.7 L ABG Sodium ABG Potassium ABG Chloride 113.0 H ABG Glucose 205 H Oxyhemoglobin Carboxyhemoglobin Sodium Potassium Chloride Carbon Dioxide BUN Creatinine Glucose POC Glucose 198 H 213 H Hemoglobin A1c Lactic Acid Calcium Ionized Calcium Phosphorus AST ALT Alkaline Phosphatase Ammonia Total Creatine Kinase Troponin T C-Reactive Protein Total Protein Albumin Triglycerides LDL Cholesterol Direct HDL Cholesterol Arterial Blood Glucose 205 H Arterial Blood Ionized Calcium Urine WBC (Auto) Salicylates Crossmatch 08/05/20 08/05/20 08/05/20 08:48 08:48 10:55 WBC 14.3 H RBC 2.76 L Hgb 8.1 L Hct 24.8 L MCV MCH MCHC RDW 17.4 H Plt Count 138 L Seg Neuts % (Manual) 97.0 H Lymphocytes % (Manual) 1.0 L Seg Neutrophils # Man 13.9 H Lymphocytes # (Manual) 0.1 L PT INR ABG pH POC ABG pCO2 POC ABG pO2 158.7 H ABG pO2 ABG O2 Saturation ABG Hemoglobin 7.8 L ABG Oxyhemoglobin ABG Sodium ABG Potassium ABG Chloride 114.0 H ABG Glucose 242 H Oxyhemoglobin Carboxyhemoglobin Sodium 146 H Potassium Chloride 110.1 H Carbon Dioxide BUN 56 H Creatinine Glucose 219 H POC Glucose Hemoglobin A1c Lactic Acid Calcium Ionized Calcium Phosphorus AST ALT Alkaline Phosphatase 192 H Ammonia Total Creatine Kinase Troponin T C-Reactive Protein Total Protein 5.8 L Albumin 2.0 L Triglycerides LDL Cholesterol Direct HDL Cholesterol Arterial Blood Glucose 242 H Arterial Blood Ionized Calcium Urine WBC (Auto) Salicylates Crossmatch 08/05/20 08/05/20 08/05/20 11:12 11:30 17:08 WBC RBC Hgb Hct MCV MCH MCHC RDW Plt Count Seg Neuts % (Manual) Lymphocytes % (Manual) Seg Neutrophils # Man Lymphocytes # (Manual) PT INR ABG pH POC ABG pCO2 POC ABG pO2 147.5 H ABG pO2 ABG O2 Saturation ABG Hemoglobin 7.5 L ABG Oxyhemoglobin 98.1 H ABG Sodium ABG Potassium ABG Chloride 113.0 H ABG Glucose 248 H Oxyhemoglobin Carboxyhemoglobin Sodium Potassium Chloride Carbon Dioxide BUN Creatinine Glucose POC Glucose 238 H 239 H Hemoglobin A1c Lactic Acid Calcium Ionized Calcium Phosphorus AST ALT Alkaline Phosphatase Ammonia Total Creatine Kinase Troponin T C-Reactive Protein Total Protein Albumin Triglycerides LDL Cholesterol Direct HDL Cholesterol Arterial Blood Glucose 248 H Arterial Blood Ionized Calcium Urine WBC (Auto) Salicylates Crossmatch 08/05/20 08/05/20 08/06/20 23:17 Unknown 05:12 WBC RBC Hgb Hct MCV MCH MCHC RDW Plt Count Seg Neuts % (Manual) Lymphocytes % (Manual) Seg Neutrophils # Man Lymphocytes # (Manual) PT INR ABG pH POC ABG pCO2 POC ABG pO2 ABG pO2 ABG O2 Saturation ABG Hemoglobin ABG Oxyhemoglobin ABG Sodium ABG Potassium ABG Chloride ABG Glucose Oxyhemoglobin Carboxyhemoglobin Sodium Potassium Chloride 109.2 H Carbon Dioxide BUN 51 H Creatinine Glucose 229 H POC Glucose 200 H 145 H Hemoglobin A1c Lactic Acid Calcium Ionized Calcium Phosphorus AST ALT Alkaline Phosphatase Ammonia Total Creatine Kinase Troponin T C-Reactive Protein Total Protein Albumin Triglycerides LDL Cholesterol Direct HDL Cholesterol Arterial Blood Glucose Arterial Blood Ionized Calcium Urine WBC (Auto) Salicylates Crossmatch 08/06/20 08/06/20 08/06/20 05:21 10:00 11:28 WBC RBC Hgb Hct MCV MCH MCHC RDW Plt Count Seg Neuts % (Manual) Lymphocytes % (Manual) Seg Neutrophils # Man Lymphocytes # (Manual) PT INR ABG pH 7.301 L 7.308 L POC ABG pCO2 49.5 H 49.1 H POC ABG pO2 178.4 H ABG pO2 ABG O2 Saturation ABG Hemoglobin 7.5 L 7.1 L ABG Oxyhemoglobin 98.8 H ABG Sodium ABG Potassium ABG Chloride 112.0 H 112.0 H ABG Glucose 149 H 162 H Oxyhemoglobin Carboxyhemoglobin Sodium Potassium Chloride Carbon Dioxide BUN Creatinine Glucose POC Glucose 158 H Hemoglobin A1c Lactic Acid Calcium Ionized Calcium Phosphorus AST ALT Alkaline Phosphatase Ammonia Total Creatine Kinase Troponin T C-Reactive Protein Total Protein Albumin Triglycerides LDL Cholesterol Direct HDL Cholesterol Arterial Blood Glucose 149 H 162 H Arterial Blood Ionized Calcium Urine WBC (Auto) Salicylates Crossmatch 08/06/20 08/06/20 08/06/20 17:42 23:56 Unknown WBC 13.0 H RBC 2.38 L Hgb 7.1 L Hct 21.5 L MCV MCH MCHC RDW 17.6 H Plt Count Seg Neuts % (Manual) Lymphocytes % (Manual) Seg Neutrophils # Man Lymphocytes # (Manual) PT INR ABG pH POC ABG pCO2 POC ABG pO2 ABG pO2 ABG O2 Saturation ABG Hemoglobin ABG Oxyhemoglobin ABG Sodium ABG Potassium ABG Chloride ABG Glucose Oxyhemoglobin Carboxyhemoglobin Sodium Potassium Chloride Carbon Dioxide BUN Creatinine Glucose POC Glucose 179 H 259 H Hemoglobin A1c Lactic Acid Calcium Ionized Calcium Phosphorus AST ALT Alkaline Phosphatase Ammonia Total Creatine Kinase Troponin T C-Reactive Protein Total Protein Albumin Triglycerides LDL Cholesterol Direct HDL Cholesterol Arterial Blood Glucose Arterial Blood Ionized Calcium Urine WBC (Auto) Salicylates Crossmatch 08/07/20 08/07/20 08/07/20 04:00 04:05 04:05 WBC RBC 2.32 L Hgb 7.1 L Hct 20.9 L MCV MCH MCHC RDW 17.9 H Plt Count Seg Neuts % (Manual) Lymphocytes % (Manual) Seg Neutrophils # Man Lymphocytes # (Manual) PT INR ABG pH POC ABG pCO2 POC ABG pO2 150.6 H ABG pO2 ABG O2 Saturation ABG Hemoglobin 8.0 L ABG Oxyhemoglobin 98.4 H ABG Sodium 146.7 H ABG Potassium ABG Chloride 114.0 H ABG Glucose 201 H Oxyhemoglobin Carboxyhemoglobin Sodium 151 H Potassium Chloride 114.3 H Carbon Dioxide BUN 63 H Creatinine Glucose 198 H POC Glucose Hemoglobin A1c Lactic Acid Calcium Ionized Calcium Phosphorus AST 54 H ALT Alkaline Phosphatase 213 H Ammonia Total Creatine Kinase Troponin T C-Reactive Protein Total Protein 6.1 L Albumin 2.0 L Triglycerides LDL Cholesterol Direct HDL Cholesterol Arterial Blood Glucose 201 H Arterial Blood Ionized Calcium Urine WBC (Auto) Salicylates Crossmatch 08/07/20 08/07/20 08/07/20 05:34 11:43 14:30 WBC RBC Hgb Hct MCV MCH MCHC RDW Plt Count Seg Neuts % (Manual) Lymphocytes % (Manual) Seg Neutrophils # Man Lymphocytes # (Manual) PT INR ABG pH POC ABG pCO2 POC ABG pO2 ABG pO2 62.9 L ABG O2 Saturation 86.7 L ABG Hemoglobin 7.1 L ABG Oxyhemoglobin ABG Sodium ABG Potassium ABG Chloride ABG Glucose Oxyhemoglobin 85.0 L Carboxyhemoglobin Sodium Potassium Chloride Carbon Dioxide BUN Creatinine Glucose POC Glucose 160 H 201 H Hemoglobin A1c Lactic Acid Calcium Ionized Calcium Phosphorus AST ALT Alkaline Phosphatase Ammonia Total Creatine Kinase Troponin T C-Reactive Protein Total Protein Albumin Triglycerides LDL Cholesterol Direct HDL Cholesterol Arterial Blood Glucose Arterial Blood Ionized Calcium Urine WBC (Auto) Salicylates Crossmatch 08/07/20 08/07/20 08/08/20 17:57 23:12 05:38 WBC RBC Hgb Hct MCV MCH MCHC RDW Plt Count Seg Neuts % (Manual) Lymphocytes % (Manual) Seg Neutrophils # Man Lymphocytes # (Manual) PT INR ABG pH POC ABG pCO2 POC ABG pO2 ABG pO2 ABG O2 Saturation ABG Hemoglobin ABG Oxyhemoglobin ABG Sodium ABG Potassium ABG Chloride ABG Glucose Oxyhemoglobin Carboxyhemoglobin Sodium Potassium Chloride Carbon Dioxide BUN Creatinine Glucose POC Glucose 242 H 246 H 135 H Hemoglobin A1c Lactic Acid Calcium Ionized Calcium Phosphorus AST ALT Alkaline Phosphatase Ammonia Total Creatine Kinase Troponin T C-Reactive Protein Total Protein Albumin Triglycerides LDL Cholesterol Direct HDL Cholesterol Arterial Blood Glucose Arterial Blood Ionized Calcium Urine WBC (Auto) Salicylates Crossmatch 08/08/20 08/08/20 08/08/20 09:49 11:40 17:28 WBC RBC Hgb Hct MCV MCH MCHC RDW Plt Count Seg Neuts % (Manual) Lymphocytes % (Manual) Seg Neutrophils # Man Lymphocytes # (Manual) PT INR ABG pH POC ABG pCO2 POC ABG pO2 ABG pO2 ABG O2 Saturation ABG Hemoglobin 6.9 L ABG Oxyhemoglobin ABG Sodium 146.1 H ABG Potassium ABG Chloride 114.0 H ABG Glucose 192 H Oxyhemoglobin Carboxyhemoglobin Sodium Potassium Chloride Carbon Dioxide BUN Creatinine Glucose POC Glucose 187 H 175 H Hemoglobin A1c Lactic Acid Calcium Ionized Calcium Phosphorus AST ALT Alkaline Phosphatase Ammonia Total Creatine Kinase Troponin T C-Reactive Protein Total Protein Albumin Triglycerides LDL Cholesterol Direct HDL Cholesterol Arterial Blood Glucose 192 H Arterial Blood Ionized Calcium Urine WBC (Auto) Salicylates Crossmatch 08/09/20 08/09/20 08/09/20 03:41 06:10 11:58 WBC RBC Hgb Hct MCV MCH MCHC RDW Plt Count Seg Neuts % (Manual) Lymphocytes % (Manual) Seg Neutrophils # Man Lymphocytes # (Manual) PT INR ABG pH POC ABG pCO2 POC ABG pO2 ABG pO2 ABG O2 Saturation ABG Hemoglobin 6.9 L ABG Oxyhemoglobin ABG Sodium 145.8 H ABG Potassium 4.6 H ABG Chloride 113.0 H ABG Glucose 113 H Oxyhemoglobin Carboxyhemoglobin Sodium Potassium Chloride Carbon Dioxide BUN Creatinine Glucose POC Glucose 118 H 124 H Hemoglobin A1c Lactic Acid Calcium Ionized Calcium Phosphorus AST ALT Alkaline Phosphatase Ammonia Total Creatine Kinase Troponin T C-Reactive Protein Total Protein Albumin Triglycerides LDL Cholesterol Direct HDL Cholesterol Arterial Blood Glucose 113 H Arterial Blood Ionized Calcium Urine WBC (Auto) Salicylates Crossmatch 08/09/20 08/09/20 08/09/20 14:05 14:05 17:42 WBC RBC 3.58 L Hgb 10.5 L D Hct 31.6 L D MCV MCH MCHC RDW 17.8 H Plt Count 125 L Seg Neuts % (Manual) Lymphocytes % (Manual) Seg Neutrophils # Man Lymphocytes # (Manual) PT INR ABG pH POC ABG pCO2 POC ABG pO2 ABG pO2 ABG O2 Saturation ABG Hemoglobin ABG Oxyhemoglobin ABG Sodium ABG Potassium ABG Chloride ABG Glucose Oxyhemoglobin Carboxyhemoglobin Sodium Potassium Chloride 111.2 H Carbon Dioxide BUN 74 H Creatinine Glucose 137 H POC Glucose 139 H Hemoglobin A1c Lactic Acid Calcium Ionized Calcium Phosphorus AST ALT Alkaline Phosphatase Ammonia Total Creatine Kinase Troponin T C-Reactive Protein Total Protein Albumin Triglycerides LDL Cholesterol Direct HDL Cholesterol Arterial Blood Glucose Arterial Blood Ionized Calcium Urine WBC (Auto) Salicylates Crossmatch 08/09/20 08/09/20 08/09/20 21:07 21:25 23:26 WBC RBC Hgb Hct MCV MCH MCHC RDW Plt Count Seg Neuts % (Manual) Lymphocytes % (Manual) Seg Neutrophils # Man Lymphocytes # (Manual) PT 15.5 H INR 1.17 H ABG pH POC ABG pCO2 POC ABG pO2 ABG pO2 ABG O2 Saturation ABG Hemoglobin ABG Oxyhemoglobin ABG Sodium ABG Potassium ABG Chloride ABG Glucose Oxyhemoglobin Carboxyhemoglobin Sodium Potassium Chloride Carbon Dioxide BUN Creatinine Glucose POC Glucose 156 H 167 H Hemoglobin A1c Lactic Acid Calcium Ionized Calcium Phosphorus AST ALT Alkaline Phosphatase Ammonia Total Creatine Kinase Troponin T C-Reactive Protein Total Protein Albumin Triglycerides LDL Cholesterol Direct HDL Cholesterol Arterial Blood Glucose Arterial Blood Ionized Calcium Urine WBC (Auto) Salicylates Crossmatch 08/10/20 08/10/20 08/10/20 03:04 12:19 14:53 WBC RBC 2.06 L Hgb 6.1 L D Hct 18.6 L* D MCV MCH MCHC RDW 18.3 H Plt Count 137 L Seg Neuts % (Manual) Lymphocytes % (Manual) Seg Neutrophils # Man Lymphocytes # (Manual) PT INR ABG pH POC ABG pCO2 POC ABG pO2 ABG pO2 ABG O2 Saturation ABG Hemoglobin 6.7 L ABG Oxyhemoglobin ABG Sodium ABG Potassium ABG Chloride 111.0 H ABG Glucose 116 H Oxyhemoglobin Carboxyhemoglobin Sodium Potassium Chloride Carbon Dioxide BUN Creatinine Glucose POC Glucose 57 L Hemoglobin A1c Lactic Acid Calcium Ionized Calcium Phosphorus AST ALT Alkaline Phosphatase Ammonia Total Creatine Kinase Troponin T C-Reactive Protein Total Protein Albumin Triglycerides LDL Cholesterol Direct HDL Cholesterol Arterial Blood Glucose 116 H Arterial Blood Ionized Calcium Urine WBC (Auto) Salicylates Crossmatch 08/10/20 08/10/20 08/10/20 14:53 18:08 23:11 WBC RBC Hgb Hct MCV MCH MCHC RDW Plt Count Seg Neuts % (Manual) Lymphocytes % (Manual) Seg Neutrophils # Man Lymphocytes # (Manual) PT INR ABG pH POC ABG pCO2 POC ABG pO2 ABG pO2 ABG O2 Saturation ABG Hemoglobin ABG Oxyhemoglobin ABG Sodium ABG Potassium ABG Chloride ABG Glucose Oxyhemoglobin Carboxyhemoglobin Sodium 146 H Potassium Chloride 111.1 H Carbon Dioxide BUN 72 H Creatinine 1.4 H Glucose 158 H POC Glucose 68 L Hemoglobin A1c Lactic Acid Calcium 8.2 L Ionized Calcium Phosphorus AST ALT Alkaline Phosphatase Ammonia Total Creatine Kinase Troponin T C-Reactive Protein Total Protein Albumin Triglycerides LDL Cholesterol Direct HDL Cholesterol Arterial Blood Glucose Arterial Blood Ionized Calcium Urine WBC (Auto) Salicylates Crossmatch See Detail 08/11/20 08/11/20 08/11/20 04:12 05:34 05:36 WBC RBC Hgb Hct MCV MCH MCHC RDW Plt Count Seg Neuts % (Manual) Lymphocytes % (Manual) Seg Neutrophils # Man Lymphocytes # (Manual) PT INR ABG pH POC ABG pCO2 POC ABG pO2 397.7 H ABG pO2 ABG O2 Saturation ABG Hemoglobin 7.6 L ABG Oxyhemoglobin 98.8 H ABG Sodium ABG Potassium ABG Chloride 113.0 H ABG Glucose 60 L Oxyhemoglobin Carboxyhemoglobin Sodium Potassium Chloride Carbon Dioxide BUN Creatinine Glucose POC Glucose 55 L 51 L Hemoglobin A1c Lactic Acid Calcium Ionized Calcium Phosphorus AST ALT Alkaline Phosphatase Ammonia Total Creatine Kinase Troponin T C-Reactive Protein Total Protein Albumin Triglycerides LDL Cholesterol Direct HDL Cholesterol Arterial Blood Glucose 60 L Arterial Blood Ionized Calcium 4.4 L Urine WBC (Auto) Salicylates Crossmatch 08/11/20 08/11/20 08/11/20 08:40 08:40 10:23 WBC RBC 2.14 L Hgb 6.2 L 6.3 L Hct 18.8 L* 19.0 L* MCV MCH MCHC RDW 17.6 H Plt Count Seg Neuts % (Manual) Lymphocytes % (Manual) Seg Neutrophils # Man Lymphocytes # (Manual) PT INR ABG pH POC ABG pCO2 POC ABG pO2 ABG pO2 ABG O2 Saturation ABG Hemoglobin ABG Oxyhemoglobin ABG Sodium ABG Potassium ABG Chloride ABG Glucose Oxyhemoglobin Carboxyhemoglobin Sodium 147 H Potassium Chloride 112.3 H Carbon Dioxide BUN 62 H Creatinine 1.5 H Glucose 73 L POC Glucose Hemoglobin A1c Lactic Acid Calcium 7.9 L Ionized Calcium Phosphorus AST ALT Alkaline Phosphatase Ammonia Total Creatine Kinase Troponin T C-Reactive Protein Total Protein Albumin Triglycerides LDL Cholesterol Direct HDL Cholesterol Arterial Blood Glucose Arterial Blood Ionized Calcium Urine WBC (Auto) Salicylates Crossmatch 08/11/20 08/11/20 11:56 17:43 WBC RBC Hgb Hct MCV MCH MCHC RDW Plt Count Seg Neuts % (Manual) Lymphocytes % (Manual) Seg Neutrophils # Man Lymphocytes # (Manual) PT INR ABG pH POC ABG pCO2 POC ABG pO2 ABG pO2 ABG O2 Saturation ABG Hemoglobin ABG Oxyhemoglobin ABG Sodium ABG Potassium ABG Chloride ABG Glucose Oxyhemoglobin Carboxyhemoglobin Sodium Potassium Chloride Carbon Dioxide BUN Creatinine Glucose POC Glucose 53 L 113 H Hemoglobin A1c Lactic Acid Calcium Ionized Calcium Phosphorus AST ALT Alkaline Phosphatase Ammonia Total Creatine Kinase Troponin T C-Reactive Protein Total Protein Albumin Triglycerides LDL Cholesterol Direct HDL Cholesterol Arterial Blood Glucose Arterial Blood Ionized Calcium Urine WBC (Auto) Salicylates Crossmatch Chest x-ray: image reviewed (no gross hemothorax) Allied health notes reviewed: nursing
[2020-08-11 18:46] LABS: Hemoglobin 6.2 gm/dl (11.8-15.2)
[2020-08-11 18:56] LABS: Hematocrit 18.4 % (35.5-45.6)
[2020-08-11 19:00] LABS: INR 1.19 (0.87-1.13)
--- NOTE | 2020-08-11 19:41 | XRay Report ---
CHEST 1 VIEW 08/11/2020 7:23 PM INDICATION / CLINICAL INFORMATION: suspected hemothortax. COMPARISON: 08/08/2020 FINDINGS: SUPPORT DEVICES: Tracheostomy tube projects in expected position HEART / MEDIASTINUM: No significant abnormality. LUNGS / PLEURA: Small bilateral pleural effusions and bilateral pulmonary opacities are unchanged ramón racteristic for pneumonia No pneumothorax. ADDITIONAL FINDINGS: No significant additional findings. IMPRESSION: 1. Stable bilateral pleural-parenchymal disease Signer Name: Marco Antonio Vicente MD Signed: 08/11/2020 7:37 PM Workstation Name: [id number]
[2020-08-11] MEDS ORDERED: SODIUM CHLORIDE 0.45% 1000 ML 1,000 ML IV SCH (20:00)
[2020-08-11 20:34] LABS: Hemoglobin 6.1 gm/dl (11.8-15.2)
[2020-08-11 20:37] LABS: Hematocrit 18.3 % (35.5-45.6)
--- NOTE | 2020-08-11 22:34 | Cat Scan Report ---
CTA CHEST WITH IV CONTRAST INDICATION: severe dec hgb, noncon, cta angio, ct venous phase. TECHNIQUE: Axial CT images were obtained through the chest after injection of 100 cc IV contrast. 3 plane MIP re constructions were produced. All CT scans at this location are performed using CT dose reduction for ALARA by means of automated exposure control. COMPARISON: None available. FINDINGS: PULMONARY ARTERIES: No pulmonary emboli. THORACIC AORTA: No acute abnormality. HEART: Mildly enlarged CORONARY ARTERIES: No significant calcification. PLEURA: No pleural effusion. No pneumothorax. LYMPH NODES: No significant adenopathy. LUNGS: Moderate airspace consolidation both lower lobes with patchy parenchymal disease right middle and both upper lobes characteristic for bilateral pneumonia ADDITIONAL FINDINGS: Moderate soft tissue swelling left chest wall and axilla. Tracheostomy tube in e xpected position UPPER ABDOMEN: No acute findings. SKELETAL STRUCTURES: No significant osseous abnormality. IMPRESSION: 1. No CT evidence for pulmonary embolism. 2. Bilateral pneumonia with small parapneumonic pleural effusions. Signer Name: Marco Antonio Vicente MD Signed: 08/11/2020 10:30 PM Workstation Name: [id number]
--- NOTE | 2020-08-11 22:42 | Cat Scan Report ---
CTA ABDOMEN AND PELVIS WITHOUT AND WITH IV CONTRAST INDICATION: severe dec hgb, noncon, cta angio, ct venous phase. TECHNIQUE: Axial CT images were obtained through the abdomen and pelvis before and after after injection of IV c ontrast. 3 plane MIP reconstructions were produced. All CT scans at this location are performed using CT dose reduction for ALARA by means of automated exposure control. COMPARISON: None available. FINDINGS: Aorta: No acute abnormality. Renal arteries: No acute abnormality. Celiac artery: No acute abnormality. Superior mesenteric artery: No acute abnormality. Inferior mesenteric artery: No acute abnormality. Right iliac arteries: No acute abnormality. Left iliac arteries: No acute abnormality. LOWER CHEST: Bilateral lower lobe consolidation and small bilateral pleural effusions LIVER: No significant abnormality. GALLBLADDER: Tiny calcified gallstone BILE DUCTS: No significant abnormality. PANCREAS: No significant abnormality. SPLEEN: No significant abnormality. ADRENALS: No significant abnormality. RIGHT KIDNEY and URETER: No significant abnormality. LEFT KIDNEY and URETER: No significant abnormality. STOMACH and SMALL BOWEL: PEG tube in body of stomach. COLON: Large amount of solid colonic stool characteristic for constipation. APPENDIX: No significant abnormality. PERITONEUM: No free fluid. No free air. No fluid collection. LYMPH NODES: No significant adenopathy. AORTA and ARTERIES: No significant abnormality. IVC and VEINS: No significant abnormality. BLADDER: Thick-walled bladder containing Brennan catheter with 2 small bubbles of gas characteristic fo r cystitis Other findings: Moderate diffuse subcutaneous edema characteristic for anasarca Skeletal Structures: No acute osseous abnormality. IMPRESSION: 1. Small amount of free fluid/ascites. No retroperitoneal bleed 2. Cholelithiasis 3. Cystitis 4. Severe constipation 5. Generalized anasarca with bilateral pleural effusions, diffuse body wall edema and small amount of ascites Signer Name: Marco Antonio Vicente MD Signed: 08/11/2020 10:38 PM Workstation Name: [id number]
--- NOTE | 2020-08-11 23:38 | Event Note ---
Date: 08/11/20 69 year old male with multiple medical issues 4 units pRBC transfusion without appropriate response. Triple phase noncontrast, ct angiography, and ct delayed phase imaging of the chest, abdomen and pelvis performed. No evidence of extravasation, pseudoaneurysm or hematoma. Considering blood loss, would expect to have melena or BRBPR or hematemesis if GI cause. None of this was reported by his nurse or was provided in sign out to the nurse. No distortion of the neck or lower extremities. CTA of the chest also included the tracheostomy site which showed no extravasation, pseudoaneurysm or hematoma. The only findings is swelling of the upper extremities, which is probably third spacing. Ordered upper extremity ultrasounds to assess for DVT and check for hematomas. Unclear cause of blood loss. Ordered some tests to screen for AIHA (haptoglobin, LDH, LFTs, reticulocyte).
[2020-08-12] MEDS: INSULIN LISPRO 100 UNIT/ML SUB-Q SCH ×4 (00:43→18:29)
[2020-08-12] MEDS: D5W/0.45% NACL 1,000 ML IV SCH ×2 (01:58→20:49)
[2020-08-12] MEDS: FREE WATER PO SCH ×6 (03:27→22:04)
[2020-08-12 05:41] LABS: Alanine Aminotransferase 33 units/L (7-56); Albumin 1.7 g/dL (3.9-5)
[2020-08-12 05:44] LABS: Bilirubin,Direct < 0.2 mg/dL (0-0.2)
[2020-08-12 06:34] LABS: Hematocrit 25.6 % (35.5-45.6); Hemoglobin 8.5 gm/dl (11.8-15.2); Mean Corpuscular HGB Conc 33 % (32-34); Mean Corpuscular Volume 85 fl (84-94); Platelet Count 154 K/mm3 (140-440); Red Blood Count 3.03 M/mm3 (3.65-5.03); Red Cell Distribution Width 18.4 % (13.2-15.2)
[2020-08-12 08:14] LABS: Total Cells Counted 100
[2020-08-12 08:15] LABS: Band Neutrophils # (Manual) 0.1 K/mm3
[2020-08-12 08:16] LABS: Anisocytosis 1+
[2020-08-12 08:17] LABS: Hypochromasia 1+; Target Cells Few
[2020-08-12 08:24] LABS: Hematocrit 24.4 % (35.5-45.6); Hemoglobin 8.1 gm/dl (11.8-15.2); Mean Corpuscular HGB Conc 33 % (32-34); Mean Corpuscular Volume 84 fl (84-94); Platelet Count 151 K/mm3 (140-440); Red Cell Distribution Width 18.9 % (13.2-15.2)
[2020-08-12 08:40] LABS: BUN/Creatinine Ratio 47; Blood Urea Nitrogen 52 mg/dL (9-20); Calcium 8.1 mg/dL (8.4-10.2); Hemolysis Index 1
--- NOTE | 2020-08-12 09:24 | Progress Note ---
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 Sodium Chloride 0.9% 10 Ml Flush Syringe IV PRN PRN LINE FLUSH Zinc Sulfate 220 mg 08/01/20 15:00 08/11/20 22:25 Zinc Sulfate 220 Mg Cap PO 220 mg BID [place] Administration Nutrition/Malnutrition Assess - Dietary Evaluation Nutrition/Malnutrition Findings: Nutrition Notes Start: 07/29/20 09:47 Freq: Status: Active Protocol: Document 08/10/20 11:43 CW (Rec: 08/10/20 11:50 CW [id number]) Nutrition Notes Initial or Follow up Reassessment Current Diagnosis Acute Kidney Injury, Respiratory Failure Other Pertinent Diagnosis Acute encephalopathy, Pneu, UTI, Quadriplegia Current Diet NPO; TF held Labs/Tests 08/09/2020 BUN 74 Pertinent Medications Lantus NS 1 L Height 6 ft Weight 73.5 kg [place] Body Weight (kg) 80.90 BMI 21.9 Weight change and time frame weight change noted. Likely related to edema Weight Status Appropriate Subjective/Other Information F/U for TF. Pt remains on mechanical vent. TF held at this time for a procedure. No reports of TF intolerance prior to TF being held Percent of energy/protein needs met: 0%/0% Burn Absent Trauma Absent Current % PO Negligible Minimum of two criteria Yes Fluid Accumulation Moderate to Severe (severe) #2 Nutrition Diagnosis Increased nutrient needs ( specify in comment below) Diagnosis Progress(for reassessment Continues documentation) #1 Nutrition Diagnosis Inadequate oral intake Diagnosis Progress(for reassessment Continues documentation) Is patient on ventilator? Yes Is Patient Ambulatory and/or Out of Bed No REE-([facility]-confined to bed) 3924.748 Calculation Used for Recommendations [facility] Additional Notes Pro needs 1.2-2g/k-163g/ day Fluid needs 1ml/kcal Nutrition Intervention Change Diet Order: Restart TF when medically feasible Nutrition Support: Continue Vital AF 1.2 at 65ml/ hr with 100 ml water flush q4h . Kcal 1,872 Protein (gm) 117 Fluid (mL) 1,265 Add Supplement/Snack (indicate name/kcal Reji BID /protein ) Provides kCal: 190 Provides Protein (gm) 5 Goal #1 TF tolerance Goal #2 TF to meet at least 80% energy and pro needs Anticipated Discharge Needs: Unable to determine at this time Follow-Up By: 08/13/20 Additional Comments F/U for TF restart and intakes
[2020-08-12] MEDS: cefTRIAXone/NS 2 GM/100 ML 2 GM/100 ML BAG IV SCH (10:34)
[2020-08-12] MEDS: amLODIPine 5 MG TAB PO SCH (10:34)
[2020-08-12] MEDS: SENNOSIDES/DOCUSATE SODIUM 8.6/50 MG TAB FEEDTUBE SCH ×2 (10:34→21:03)
[2020-08-12] MEDS: METOPROLOL TARTRATE 25 MG TAB PO SCH ×2 (10:34→21:03)
[2020-08-12] MEDS: ZINC SULFATE 220 MG CAP PO SCH ×2 (10:34→21:04)
[2020-08-12] MEDS: ENOXAPARIN 40 MG/0.4 ML INJ SUB-Q SCH (10:35)
[2020-08-12] MEDS: ASCORBIC ACID 500 MG TAB PO SCH ×2 (10:35→21:04)
[2020-08-12] MEDS: FAMOTIDINE 20 MG TAB PO SCH ×2 (10:35→21:04)
[2020-08-12] MEDS: INSULIN GLARGINE 100 UNITS/ML SUB-Q SCH (10:35)
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
[2020-08-12] MEDS: FLUCONAZOLE 400 MG 200 ML IV SCH (15:38)
--- NOTE | 2020-08-12 15:46 | Progress Note ---
Assessment and Plan Acute possibly on chronic toxic metabolic encephalopathy Acute hypoxemic respiratory failure on MVS Severe sepsis with shock, presumably secondary to aspiration pneumonia Recent upper ext DVT (06/06) Aspiration pneumonia, bilateral Urinary tract infection History of quadriplegia Leukocytosis Anemia that is microcytic Coagulopathy. INR 2.17 at presentation Mild hypokalemia Acute kidney injury Metabolic lactic acidosis Non-ST elevation myocardial infarction Adult failure to thrive Moderate to severe protein calorie malnutrition - follow H&H - appreciate vascular surgery input - continue fentanyl patch at 75 janelle's/hr - keep peep at 8 - LTAC evaluation ongoing - continue care as below otherwise; - prn Levophed for target MAP > 65 mmHg - continue to wean supplemental oxygen for target O2 sat's > 90% acutely - VAP bundle addressed - continue lung protective strategies - continue bronchodilators with routine trach care and pulmonary hygiene per RT - wean per pulmonary driven protocols otherwise - avoid nephrotoxins, renally dose all medications - continue to avoid benzodiazepine's, reduce the possibility of delirium - complete AB's per ID rec's - prn analgesia per CPOT score - Maintenance of sleep-wake cycle, avoid delirium - continue enteral nutritional support at goal rate as tolerated - G.I. & VTE prophylaxis - PT/OT/ROM exercises - continue mobility protocols for pressure ulcer prophylaxis - Monitor hemodynamics closely - continue other care per attending / other consultants - discharge planning ongoing concurrently COVID SPECIFIC INTERVENTIONS: - COVID test result negative .... Re-evaluate in am & prn CONDITION: CRITICAL PROGNOSIS: GUARDED CODE STATUS: FULL CODE The high probability of a clinically significant, sudden or life-threatening deterioration of the [respiratory, cardiovascular & neurologic] system(s) required my full and direct attention, intervention and personal management. The aggregate critical care time was [34] minutes without overlap. Time includes spent on; [x] Data Review and interpretation [x] Patient assessment and monitoring of vital signs [x] Documentation [x] Medication orders and management Subjective Date of service: 08/12/20 Principal diagnosis: Ac. encephalopathy; Ac. hypoxemic resp failure; Septic Shock; PNA; UTI; JEFFERSON Interval history: Patient is seen today for: Acute encephalopathy; Acute hypoxemic respiratory failure; Septic Shock; Aspiration pneumonia; UTI; quadriplegia; JEFFERSON Seen and examined at bedside; 24hour events reviewed; nursing and respiratory care staff consulted; no adverse overnight events reported to me; resting in bed; appreciate vascular surgery input but no bleeder found; H&H holding now; no emesis or overt aspiration and afebrile Objective Vital Signs - 12hr 08/12/20 08/12/20 08/12/20 03:46 04:00 04:16 Temperature 98.0 F Pulse Rate 83 78 86 Respiratory 33 H 30 H 32 H Rate Blood Pressure 176/70 152/61 173/69 O2 Sat by Pulse 81 L 80 L 80 L Oximetry 08/12/20 08/12/20 08/12/20 04:30 04:46 05:00 Temperature Pulse Rate 78 77 80 Respiratory 24 23 23 Rate Blood Pressure 143/65 163/75 157/73 O2 Sat by Pulse 94 99 100 Oximetry 08/12/20 08/12/20 08/12/20 05:16 05:30 05:46 Temperature Pulse Rate 81 89 85 Respiratory 29 H 31 H 27 H Rate Blood Pressure 149/77 150/81 171/82 O2 Sat by Pulse 100 100 100 Oximetry 08/12/20 08/12/20 08/12/20 06:00 07:00 07:16 Temperature 97.5 F L Pulse Rate 86 79 Respiratory 28 H 30 H Rate Blood Pressure 170/80 166/76 O2 Sat by Pulse 100 91 Oximetry 08/12/20 08/12/20 08/12/20 08:00 09:00 10:00 Temperature Pulse Rate 74 73 69 Respiratory 25 H 16 15 Rate Blood Pressure 174/72 137/56 152/65 O2 Sat by Pulse 99 100 95 Oximetry 08/12/20 08/12/20 08/12/20 11:00 11:42 11:52 Temperature 97.5 F L Pulse Rate 59 L 71 Respiratory 13 Rate Blood Pressure 152/78 139/61 O2 Sat by Pulse 99 98 Oximetry 08/12/20 08/12/20 08/12/20 12:00 13:00 14:00 Temperature Pulse Rate 75 72 68 Respiratory 30 H 20 29 H Rate Blood Pressure 145/69 137/62 126/61 O2 Sat by Pulse 89 99 95 Oximetry 08/12/20 08/12/20 14:02 15:24 Temperature Pulse Rate 81 71 Respiratory Rate Blood Pressure 133/29 148/64 O2 Sat by Pulse 97 99 Oximetry Constitutional: appears uncomfortable, other ( chronically ill looking male with mildly increased respiratory effort at rest on MVS) Eyes: non-icteric ENT: oropharynx dry, other (ETT 24 cm KEVIN) Neck: supple, no lymphadenopathy, no JVD Effort: mildly labored Ascultation: Bilateral: diminished breath sounds, rhonchi Percussion: Bilateral: not dull Cardiovascular: regular rate and rhythm, other (S1,S2) Gastrointestinal: normoactive bowel sounds, soft, non-tender, non-distended, other (no patricio cullens sign) Integumentary: rash, decubitus ulcer (sacral (POA)) Extremities: no cyanosis, pulses normal, edema (lower extremities and bilatral upper extremity) Neurologic: pupils equal and round, unable to assess, other (quadriplegic) Psychiatric: other (delirious) CBC and BMP: 08/14/20 13:01 08/14/20 13:01 ABG, PT/INR, D-dimer: ABG ABG pH 7.354 (7.320-7.450) 08/11/20 22:13 POC ABG pCO2 46.9 mmHg (32.0-48.0) 08/11/20 22:13 ABG pCO2 44.2 mm Hg 08/07/20 14:30 POC ABG pO2 163.6 mmHg (83-108) H 08/11/20 22:13 ABG pO2 62.9 mm Hg (80.0-90.0) L 08/07/20 14:30 POC ABG HCO3 25.5 08/11/20 22:13 ABG O2 Saturation 99.3 (0-100) 08/11/20 22:13 PT/INR, D-dimer PT 15.7 Sec. (12.2-14.9) H 08/11/20 18:40 INR 1.19 (0.87-1.13) H 08/11/20 18:40 Abnormal lab findings: Abnormal Labs 07/28/20 07/28/20 07/28/20 08:48 08:48 08:48 WBC 17.0 H RBC 2.77 L Hgb 8.2 L Hct 26.5 L MCV 96 H MCH MCHC 31 L RDW 16.2 H Plt Count Seg Neuts % (Manual) Lymphocytes % (Manual) Seg Neutrophils # Man Lymphocytes # (Manual) PT 24.7 H INR 2.17 H ABG pH POC ABG pCO2 POC ABG pO2 ABG pO2 ABG O2 Saturation ABG Hemoglobin ABG Oxyhemoglobin ABG Sodium ABG Potassium ABG Chloride ABG Glucose Oxyhemoglobin Carboxyhemoglobin Sodium 135 L Potassium 3.5 L Chloride 97.6 L Carbon Dioxide BUN 44 H Creatinine 1.6 H Glucose 431 H POC Glucose Hemoglobin A1c Lactic Acid Calcium 7.9 L Ionized Calcium Phosphorus AST 81 H ALT Alkaline Phosphatase Ammonia Lactate Dehydrogenase Total Creatine Kinase 486 H Troponin T 0.115 H* C-Reactive Protein Total Protein 5.6 L Albumin 2.6 L Triglycerides LDL Cholesterol Direct 44 L HDL Cholesterol 26 L Arterial Blood Glucose Arterial Blood Ionized Calcium Urine WBC (Auto) Salicylates Crossmatch 07/28/20 07/28/20 07/28/20 08:48 09:44 09:44 WBC RBC Hgb Hct MCV MCH MCHC RDW Plt Count Seg Neuts % (Manual) Lymphocytes % (Manual) Seg Neutrophils # Man Lymphocytes # (Manual) PT INR ABG pH POC ABG pCO2 POC ABG pO2 ABG pO2 ABG O2 Saturation ABG Hemoglobin ABG Oxyhemoglobin ABG Sodium ABG Potassium ABG Chloride ABG Glucose Oxyhemoglobin Carboxyhemoglobin Sodium Potassium Chloride Carbon Dioxide BUN Creatinine Glucose POC Glucose Hemoglobin A1c Lactic Acid 3.80 H* Calcium Ionized Calcium Phosphorus AST ALT Alkaline Phosphatase Ammonia 63.0 H Lactate Dehydrogenase Total Creatine Kinase Troponin T C-Reactive Protein Total Protein Albumin Triglycerides LDL Cholesterol Direct HDL Cholesterol Arterial Blood Glucose Arterial Blood Ionized Calcium Urine WBC (Auto) Salicylates < 0.3 L Crossmatch 07/28/20 07/28/20 07/28/20 10:18 14:38 15:58 WBC RBC Hgb Hct MCV MCH MCHC RDW Plt Count Seg Neuts % (Manual) Lymphocytes % (Manual) Seg Neutrophils # Man Lymphocytes # (Manual) PT INR ABG pH POC ABG pCO2 POC ABG pO2 ABG pO2 78.0 L ABG O2 Saturation ABG Hemoglobin 7.6 L ABG Oxyhemoglobin ABG Sodium ABG Potassium ABG Chloride ABG Glucose Oxyhemoglobin Carboxyhemoglobin Sodium Potassium Chloride Carbon Dioxide BUN Creatinine Glucose POC Glucose 265 H Hemoglobin A1c Lactic Acid 3.90 H* Calcium Ionized Calcium Phosphorus AST ALT Alkaline Phosphatase Ammonia Lactate Dehydrogenase Total Creatine Kinase Troponin T C-Reactive Protein Total Protein Albumin Triglycerides LDL Cholesterol Direct HDL Cholesterol Arterial Blood Glucose Arterial Blood Ionized Calcium Urine WBC (Auto) Salicylates Crossmatch 07/28/20 07/28/20 07/28/20 19:50 21:00 Unknown WBC RBC Hgb Hct MCV MCH MCHC RDW Plt Count Seg Neuts % (Manual) Lymphocytes % (Manual) Seg Neutrophils # Man Lymphocytes # (Manual) PT INR ABG pH 7.107 L POC ABG pCO2 65.6 H POC ABG pO2 ABG pO2 ABG O2 Saturation ABG Hemoglobin 9.9 L ABG Oxyhemoglobin ABG Sodium ABG Potassium ABG Chloride 108.0 H ABG Glucose 299 H Oxyhemoglobin Carboxyhemoglobin 0.2 L Sodium Potassium Chloride Carbon Dioxide BUN Creatinine Glucose POC Glucose Hemoglobin A1c Lactic Acid Calcium Ionized Calcium Phosphorus 5.40 H AST ALT Alkaline Phosphatase Ammonia Lactate Dehydrogenase Total Creatine Kinase Troponin T C-Reactive Protein 9.00 H Total Protein Albumin Triglycerides LDL Cholesterol Direct HDL Cholesterol Arterial Blood Glucose 299 H Arterial Blood Ionized Calcium 4.2 L Urine WBC (Auto) > 182.0 H Salicylates Crossmatch 07/29/20 07/29/20 07/29/20 04:02 13:00 17:13 WBC RBC Hgb Hct MCV MCH MCHC RDW Plt Count Seg Neuts % (Manual) Lymphocytes % (Manual) Seg Neutrophils # Man Lymphocytes # (Manual) PT INR ABG pH 7.212 L POC ABG pCO2 52.5 H POC ABG pO2 128.3 H ABG pO2 ABG O2 Saturation ABG Hemoglobin 10.5 L ABG Oxyhemoglobin ABG Sodium ABG Potassium ABG Chloride 108.0 H ABG Glucose 239 H Oxyhemoglobin Carboxyhemoglobin Sodium Potassium Chloride Carbon Dioxide BUN Creatinine Glucose POC Glucose 212 H 257 H Hemoglobin A1c Lactic Acid Calcium Ionized Calcium Phosphorus AST ALT Alkaline Phosphatase Ammonia Lactate Dehydrogenase Total Creatine Kinase Troponin T C-Reactive Protein Total Protein Albumin Triglycerides LDL Cholesterol Direct HDL Cholesterol Arterial Blood Glucose 239 H Arterial Blood Ionized Calcium 4.0 L Urine WBC (Auto) Salicylates Crossmatch 07/29/20 07/29/20 07/29/20 21:00 23:20 Unknown WBC RBC 3.05 L Hgb 9.7 L Hct 28.6 L MCV MCH MCHC RDW 16.1 H Plt Count Seg Neuts % (Manual) 75.0 H Lymphocytes % (Manual) 2.0 L Seg Neutrophils # Man Lymphocytes # (Manual) 0.2 L PT INR ABG pH 7.286 L POC ABG pCO2 POC ABG pO2 ABG pO2 ABG O2 Saturation ABG Hemoglobin 9.1 L ABG Oxyhemoglobin ABG Sodium ABG Potassium ABG Chloride 109.0 H ABG Glucose 285 H Oxyhemoglobin Carboxyhemoglobin Sodium Potassium Chloride Carbon Dioxide BUN Creatinine Glucose POC Glucose 233 H Hemoglobin A1c Lactic Acid Calcium Ionized Calcium Phosphorus AST ALT Alkaline Phosphatase Ammonia Lactate Dehydrogenase Total Creatine Kinase Troponin T C-Reactive Protein Total Protein Albumin Triglycerides LDL Cholesterol Direct HDL Cholesterol Arterial Blood Glucose 285 H Arterial Blood Ionized Calcium 3.9 L Urine WBC (Auto) Salicylates Crossmatch 07/29/20 07/29/20 07/30/20 Unknown Unknown 05:30 WBC RBC Hgb Hct MCV MCH MCHC RDW Plt Count Seg Neuts % (Manual) Lymphocytes % (Manual) Seg Neutrophils # Man Lymphocytes # (Manual) PT INR ABG pH POC ABG pCO2 POC ABG pO2 ABG pO2 ABG O2 Saturation ABG Hemoglobin ABG Oxyhemoglobin ABG Sodium ABG Potassium ABG Chloride ABG Glucose Oxyhemoglobin Carboxyhemoglobin Sodium Potassium Chloride 108.4 H Carbon Dioxide 21 L BUN 41 H Creatinine Glucose 217 H POC Glucose 245 H Hemoglobin A1c Lactic Acid 2.70 H* Calcium 6.5 L D Ionized Calcium Phosphorus AST 104 H ALT 74 H Alkaline Phosphatase Ammonia Lactate Dehydrogenase Total Creatine Kinase Troponin T C-Reactive Protein Total Protein 5.1 L Albumin 2.4 L Triglycerides LDL Cholesterol Direct HDL Cholesterol Arterial Blood Glucose Arterial Blood Ionized Calcium Urine WBC (Auto) Salicylates Crossmatch 07/30/20 07/30/20 07/30/20 05:45 05:45 12:12 WBC RBC 2.50 L Hgb 7.8 L Hct 23.3 L MCV MCH MCHC RDW 16.4 H Plt Count Seg Neuts % (Manual) Lymphocytes % (Manual) Seg Neutrophils # Man Lymphocytes # (Manual) PT INR ABG pH POC ABG pCO2 POC ABG pO2 ABG pO2 ABG O2 Saturation ABG Hemoglobin ABG Oxyhemoglobin ABG Sodium ABG Potassium ABG Chloride ABG Glucose Oxyhemoglobin Carboxyhemoglobin Sodium Potassium Chloride 108.4 H Carbon Dioxide 21 L BUN 44 H Creatinine 1.4 H Glucose 279 H POC Glucose 243 H Hemoglobin A1c Lactic Acid Calcium 6.7 L Ionized Calcium Phosphorus AST 51 H ALT Alkaline Phosphatase Ammonia Lactate Dehydrogenase Total Creatine Kinase Troponin T C-Reactive Protein Total Protein 5.5 L Albumin 2.3 L Triglycerides LDL Cholesterol Direct HDL Cholesterol Arterial Blood Glucose Arterial Blood Ionized Calcium Urine WBC (Auto) Salicylates Crossmatch 07/30/20 07/30/20 07/30/20 15:50 17:20 19:01 WBC RBC Hgb Hct MCV MCH MCHC RDW Plt Count Seg Neuts % (Manual) Lymphocytes % (Manual) Seg Neutrophils # Man Lymphocytes # (Manual) PT INR ABG pH POC ABG pCO2 POC ABG pO2 147.2 H ABG pO2 ABG O2 Saturation ABG Hemoglobin 7.2 L ABG Oxyhemoglobin ABG Sodium ABG Potassium 3.3 L ABG Chloride 115.0 H ABG Glucose 269 H Oxyhemoglobin Carboxyhemoglobin 1.6 H Sodium Potassium Chloride Carbon Dioxide BUN Creatinine Glucose POC Glucose 260 H Hemoglobin A1c Lactic Acid Calcium Ionized Calcium 4.2 L Phosphorus AST ALT Alkaline Phosphatase Ammonia Lactate Dehydrogenase Total Creatine Kinase Troponin T C-Reactive Protein Total Protein Albumin Triglycerides LDL Cholesterol Direct HDL Cholesterol Arterial Blood Glucose 269 H Arterial Blood Ionized Calcium 3.5 L Urine WBC (Auto) Salicylates Crossmatch 07/30/20 07/31/20 07/31/20 23:16 04:04 04:47 WBC RBC Hgb Hct MCV MCH MCHC RDW Plt Count Seg Neuts % (Manual) Lymphocytes % (Manual) Seg Neutrophils # Man Lymphocytes # (Manual) PT INR ABG pH POC ABG pCO2 POC ABG pO2 ABG pO2 ABG O2 Saturation ABG Hemoglobin 7.6 L ABG Oxyhemoglobin ABG Sodium ABG Potassium 3.3 L ABG Chloride 113.0 H ABG Glucose 348 H Oxyhemoglobin Carboxyhemoglobin 0.4 L Sodium Potassium Chloride Carbon Dioxide BUN Creatinine Glucose POC Glucose 298 H 297 H Hemoglobin A1c Lactic Acid Calcium Ionized Calcium Phosphorus AST ALT Alkaline Phosphatase Ammonia Lactate Dehydrogenase Total Creatine Kinase Troponin T C-Reactive Protein Total Protein Albumin Triglycerides LDL Cholesterol Direct HDL Cholesterol Arterial Blood Glucose 348 H Arterial Blood Ionized Calcium 4.1 L Urine WBC (Auto) Salicylates Crossmatch 07/31/20 07/31/20 07/31/20 07:26 07:26 11:54 WBC RBC 2.29 L Hgb 7.2 L Hct 21.5 L MCV MCH MCHC RDW 16.7 H Plt Count Seg Neuts % (Manual) Lymphocytes % (Manual) Seg Neutrophils # Man Lymphocytes # (Manual) PT INR ABG pH POC ABG pCO2 POC ABG pO2 ABG pO2 ABG O2 Saturation ABG Hemoglobin ABG Oxyhemoglobin ABG Sodium ABG Potassium ABG Chloride ABG Glucose Oxyhemoglobin Carboxyhemoglobin Sodium Potassium 3.4 L Chloride 109.4 H Carbon Dioxide BUN 45 H Creatinine 1.4 H Glucose 304 H POC Glucose 302 H Hemoglobin A1c Lactic Acid Calcium 6.9 L Ionized Calcium Phosphorus AST ALT Alkaline Phosphatase Ammonia Lactate Dehydrogenase Total Creatine Kinase Troponin T C-Reactive Protein Total Protein Albumin Triglycerides LDL Cholesterol Direct HDL Cholesterol Arterial Blood Glucose Arterial Blood Ionized Calcium Urine WBC (Auto) Salicylates Crossmatch 07/31/20 08/01/20 08/01/20 21:27 03:09 04:30 WBC RBC 2.29 L Hgb 7.0 L Hct 20.7 L MCV MCH MCHC RDW 16.2 H Plt Count 125 L Seg Neuts % (Manual) Lymphocytes % (Manual) Seg Neutrophils # Man Lymphocytes # (Manual) PT INR ABG pH POC ABG pCO2 POC ABG pO2 ABG pO2 ABG O2 Saturation ABG Hemoglobin 7.4 L ABG Oxyhemoglobin ABG Sodium 146.9 H ABG Potassium 3.2 L ABG Chloride 116.0 H ABG Glucose 113 H Oxyhemoglobin Carboxyhemoglobin Sodium Potassium Chloride Carbon Dioxide BUN Creatinine Glucose POC Glucose 138 H Hemoglobin A1c Lactic Acid Calcium Ionized Calcium Phosphorus AST ALT Alkaline Phosphatase Ammonia Lactate Dehydrogenase Total Creatine Kinase Troponin T C-Reactive Protein Total Protein Albumin Triglycerides LDL Cholesterol Direct HDL Cholesterol Arterial Blood Glucose 113 H Arterial Blood Ionized Calcium 4.5 L Urine WBC (Auto) Salicylates Crossmatch 08/01/20 08/01/20 08/01/20 04:30 04:30 08:40 WBC RBC Hgb Hct MCV MCH MCHC RDW Plt Count Seg Neuts % (Manual) Lymphocytes % (Manual) Seg Neutrophils # Man Lymphocytes # (Manual) PT INR ABG pH POC ABG pCO2 POC ABG pO2 ABG pO2 ABG O2 Saturation ABG Hemoglobin ABG Oxyhemoglobin ABG Sodium ABG Potassium ABG Chloride ABG Glucose Oxyhemoglobin Carboxyhemoglobin Sodium 148 H Potassium 3.4 L Chloride 114.3 H Carbon Dioxide BUN 43 H Creatinine Glucose 109 H POC Glucose Hemoglobin A1c 8.8 H Lactic Acid Calcium 8.1 L D Ionized Calcium Phosphorus AST ALT Alkaline Phosphatase Ammonia Lactate Dehydrogenase Total Creatine Kinase Troponin T C-Reactive Protein Total Protein Albumin Triglycerides LDL Cholesterol Direct HDL Cholesterol Arterial Blood Glucose Arterial Blood Ionized Calcium Urine WBC (Auto) Salicylates Crossmatch See Detail 08/01/20 08/01/20 08/01/20 08:40 17:03 23:35 WBC RBC Hgb Hct MCV MCH MCHC RDW Plt Count Seg Neuts % (Manual) Lymphocytes % (Manual) Seg Neutrophils # Man Lymphocytes # (Manual) PT INR ABG pH POC ABG pCO2 POC ABG pO2 ABG pO2 ABG O2 Saturation ABG Hemoglobin ABG Oxyhemoglobin ABG Sodium ABG Potassium ABG Chloride ABG Glucose Oxyhemoglobin Carboxyhemoglobin Sodium Potassium Chloride Carbon Dioxide BUN Creatinine Glucose POC Glucose 129 H 172 H Hemoglobin A1c Lactic Acid Calcium Ionized Calcium Phosphorus 1.70 L AST ALT Alkaline Phosphatase Ammonia Lactate Dehydrogenase Total Creatine Kinase Troponin T C-Reactive Protein Total Protein Albumin Triglycerides LDL Cholesterol Direct HDL Cholesterol Arterial Blood Glucose Arterial Blood Ionized Calcium Urine WBC (Auto) Salicylates Crossmatch 08/02/20 08/02/20 08/02/20 03:50 05:46 10:54 WBC RBC Hgb Hct MCV MCH MCHC RDW Plt Count Seg Neuts % (Manual) Lymphocytes % (Manual) Seg Neutrophils # Man Lymphocytes # (Manual) PT INR ABG pH 7.333 L POC ABG pCO2 POC ABG pO2 ABG pO2 91.5 H ABG O2 Saturation ABG Hemoglobin 7.9 L ABG Oxyhemoglobin ABG Sodium ABG Potassium ABG Chloride ABG Glucose Oxyhemoglobin Carboxyhemoglobin Sodium Potassium Chloride Carbon Dioxide BUN Creatinine Glucose POC Glucose 161 H 228 H Hemoglobin A1c Lactic Acid Calcium Ionized Calcium Phosphorus AST ALT Alkaline Phosphatase Ammonia Lactate Dehydrogenase Total Creatine Kinase Troponin T C-Reactive Protein Total Protein Albumin Triglycerides LDL Cholesterol Direct HDL Cholesterol Arterial Blood Glucose Arterial Blood Ionized Calcium Urine WBC (Auto) Salicylates Crossmatch 08/02/20 08/02/20 08/02/20 17:20 23:13 Unknown WBC RBC 2.66 L Hgb 8.1 L Hct 23.9 L MCV MCH MCHC RDW 16.8 H Plt Count 110 L Seg Neuts % (Manual) Lymphocytes % (Manual) Seg Neutrophils # Man Lymphocytes # (Manual) PT INR ABG pH POC ABG pCO2 POC ABG pO2 ABG pO2 ABG O2 Saturation ABG Hemoglobin ABG Oxyhemoglobin ABG Sodium ABG Potassium ABG Chloride ABG Glucose Oxyhemoglobin Carboxyhemoglobin Sodium Potassium Chloride Carbon Dioxide BUN Creatinine Glucose POC Glucose 214 H 132 H Hemoglobin A1c Lactic Acid Calcium Ionized Calcium Phosphorus AST ALT Alkaline Phosphatase Ammonia Lactate Dehydrogenase Total Creatine Kinase Troponin T C-Reactive Protein Total Protein Albumin Triglycerides LDL Cholesterol Direct HDL Cholesterol Arterial Blood Glucose Arterial Blood Ionized Calcium Urine WBC (Auto) Salicylates Crossmatch 08/02/20 08/02/20 08/03/20 Unknown Unknown 02:59 WBC RBC Hgb Hct MCV MCH MCHC RDW Plt Count Seg Neuts % (Manual) Lymphocytes % (Manual) Seg Neutrophils # Man Lymphocytes # (Manual) PT INR ABG pH POC ABG pCO2 POC ABG pO2 ABG pO2 ABG O2 Saturation ABG Hemoglobin 8.1 L ABG Oxyhemoglobin ABG Sodium ABG Potassium ABG Chloride 113.0 H ABG Glucose 143 H Oxyhemoglobin Carboxyhemoglobin Sodium 150 H Potassium 3.5 L Chloride 115.9 H Carbon Dioxide BUN 42 H Creatinine Glucose 188 H POC Glucose Hemoglobin A1c Lactic Acid Calcium 7.8 L Ionized Calcium Phosphorus 2.30 L D AST ALT Alkaline Phosphatase Ammonia Lactate Dehydrogenase Total Creatine Kinase Troponin T C-Reactive Protein Total Protein Albumin Triglycerides LDL Cholesterol Direct HDL Cholesterol Arterial Blood Glucose 143 H Arterial Blood Ionized Calcium Urine WBC (Auto) Salicylates Crossmatch 08/03/20 08/03/20 08/03/20 04:16 04:16 05:12 WBC RBC 2.62 L Hgb 8.1 L Hct 24.1 L MCV MCH MCHC RDW 17.4 H Plt Count 118 L Seg Neuts % (Manual) Lymphocytes % (Manual) Seg Neutrophils # Man Lymphocytes # (Manual) PT INR ABG pH POC ABG pCO2 POC ABG pO2 ABG pO2 ABG O2 Saturation ABG Hemoglobin ABG Oxyhemoglobin ABG Sodium ABG Potassium ABG Chloride ABG Glucose Oxyhemoglobin Carboxyhemoglobin Sodium 148 H Potassium Chloride 114.5 H Carbon Dioxide BUN 47 H Creatinine Glucose 158 H POC Glucose 164 H Hemoglobin A1c Lactic Acid Calcium 8.1 L Ionized Calcium Phosphorus 2.30 L AST ALT Alkaline Phosphatase Ammonia Lactate Dehydrogenase Total Creatine Kinase Troponin T C-Reactive Protein Total Protein Albumin Triglycerides LDL Cholesterol Direct HDL Cholesterol Arterial Blood Glucose Arterial Blood Ionized Calcium Urine WBC (Auto) Salicylates Crossmatch 08/03/20 08/03/20 08/03/20 11:26 17:33 23:47 WBC RBC Hgb Hct MCV MCH MCHC RDW Plt Count Seg Neuts % (Manual) Lymphocytes % (Manual) Seg Neutrophils # Man Lymphocytes # (Manual) PT INR ABG pH POC ABG pCO2 POC ABG pO2 ABG pO2 ABG O2 Saturation ABG Hemoglobin ABG Oxyhemoglobin ABG Sodium ABG Potassium ABG Chloride ABG Glucose Oxyhemoglobin Carboxyhemoglobin Sodium Potassium Chloride Carbon Dioxide BUN Creatinine Glucose POC Glucose 190 H 235 H 194 H Hemoglobin A1c Lactic Acid Calcium Ionized Calcium Phosphorus AST ALT Alkaline Phosphatase Ammonia Lactate Dehydrogenase Total Creatine Kinase Troponin T C-Reactive Protein Total Protein Albumin Triglycerides LDL Cholesterol Direct HDL Cholesterol Arterial Blood Glucose Arterial Blood Ionized Calcium Urine WBC (Auto) Salicylates Crossmatch 08/04/20 08/04/20 08/04/20 03:00 03:00 04:14 WBC RBC Hgb Hct MCV MCH MCHC RDW Plt Count Seg Neuts % (Manual) Lymphocytes % (Manual) Seg Neutrophils # Man Lymphocytes # (Manual) PT INR ABG pH POC ABG pCO2 POC ABG pO2 79.5 L ABG pO2 ABG O2 Saturation ABG Hemoglobin 9.9 L ABG Oxyhemoglobin ABG Sodium ABG Potassium ABG Chloride 113.0 H ABG Glucose 227 H Oxyhemoglobin Carboxyhemoglobin 0.3 L Sodium Potassium Chloride 111.4 H Carbon Dioxide BUN 51 H Creatinine Glucose 218 H POC Glucose Hemoglobin A1c Lactic Acid Calcium Ionized Calcium Phosphorus AST ALT Alkaline Phosphatase Ammonia Lactate Dehydrogenase Total Creatine Kinase Troponin T C-Reactive Protein Total Protein Albumin Triglycerides 184 H LDL Cholesterol Direct HDL Cholesterol Arterial Blood Glucose 227 H Arterial Blood Ionized Calcium Urine WBC (Auto) Salicylates Crossmatch 08/04/20 08/04/20 08/04/20 05:17 11:52 11:53 WBC RBC Hgb Hct MCV MCH MCHC RDW Plt Count Seg Neuts % (Manual) Lymphocytes % (Manual) Seg Neutrophils # Man Lymphocytes # (Manual) PT INR ABG pH POC ABG pCO2 POC ABG pO2 ABG pO2 ABG O2 Saturation ABG Hemoglobin ABG Oxyhemoglobin ABG Sodium ABG Potassium ABG Chloride ABG Glucose Oxyhemoglobin Carboxyhemoglobin Sodium Potassium Chloride Carbon Dioxide BUN Creatinine Glucose POC Glucose 224 H 253 H 237 H Hemoglobin A1c Lactic Acid Calcium Ionized Calcium Phosphorus AST ALT Alkaline Phosphatase Ammonia Lactate Dehydrogenase Total Creatine Kinase Troponin T C-Reactive Protein Total Protein Albumin Triglycerides LDL Cholesterol Direct HDL Cholesterol Arterial Blood Glucose Arterial Blood Ionized Calcium Urine WBC (Auto) Salicylates Crossmatch 08/04/20 08/04/20 08/04/20 15:35 16:25 17:45 WBC 21.5 H RBC 2.10 L Hgb 7.3 L Hct 22.0 L MCV MCH 33 H MCHC 37 H RDW 17.2 H Plt Count 133 L Seg Neuts % (Manual) Lymphocytes % (Manual) Seg Neutrophils # Man Lymphocytes # (Manual) PT INR ABG pH POC ABG pCO2 POC ABG pO2 ABG pO2 ABG O2 Saturation ABG Hemoglobin ABG Oxyhemoglobin ABG Sodium ABG Potassium ABG Chloride ABG Glucose Oxyhemoglobin Carboxyhemoglobin Sodium Potassium Chloride Carbon Dioxide BUN Creatinine Glucose POC Glucose 230 H 218 H Hemoglobin A1c Lactic Acid Calcium Ionized Calcium Phosphorus AST ALT Alkaline Phosphatase Ammonia Lactate Dehydrogenase Total Creatine Kinase Troponin T C-Reactive Protein Total Protein Albumin Triglycerides LDL Cholesterol Direct HDL Cholesterol Arterial Blood Glucose Arterial Blood Ionized Calcium Urine WBC (Auto) Salicylates Crossmatch 08/04/20 08/05/20 08/05/20 23:11 03:28 05:25 WBC RBC Hgb Hct MCV MCH MCHC RDW Plt Count Seg Neuts % (Manual) Lymphocytes % (Manual) Seg Neutrophils # Man Lymphocytes # (Manual) PT INR ABG pH POC ABG pCO2 POC ABG pO2 82.1 L ABG pO2 ABG O2 Saturation ABG Hemoglobin 8.6 L ABG Oxyhemoglobin 93.7 L ABG Sodium ABG Potassium ABG Chloride 113.0 H ABG Glucose 205 H Oxyhemoglobin Carboxyhemoglobin Sodium Potassium Chloride Carbon Dioxide BUN Creatinine Glucose POC Glucose 198 H 213 H Hemoglobin A1c Lactic Acid Calcium Ionized Calcium Phosphorus AST ALT Alkaline Phosphatase Ammonia Lactate Dehydrogenase Total Creatine Kinase Troponin T C-Reactive Protein Total Protein Albumin Triglycerides LDL Cholesterol Direct HDL Cholesterol Arterial Blood Glucose 205 H Arterial Blood Ionized Calcium Urine WBC (Auto) Salicylates Crossmatch 08/05/20 08/05/20 08/05/20 08:48 08:48 10:55 WBC 14.3 H RBC 2.76 L Hgb 8.1 L Hct 24.8 L MCV MCH MCHC RDW 17.4 H Plt Count 138 L Seg Neuts % (Manual) 97.0 H Lymphocytes % (Manual) 1.0 L Seg Neutrophils # Man 13.9 H Lymphocytes # (Manual) 0.1 L PT INR ABG pH POC ABG pCO2 POC ABG pO2 158.7 H ABG pO2 ABG O2 Saturation ABG Hemoglobin 7.8 L ABG Oxyhemoglobin ABG Sodium ABG Potassium ABG Chloride 114.0 H ABG Glucose 242 H Oxyhemoglobin Carboxyhemoglobin Sodium 146 H Potassium Chloride 110.1 H Carbon Dioxide BUN 56 H Creatinine Glucose 219 H POC Glucose Hemoglobin A1c Lactic Acid Calcium Ionized Calcium Phosphorus AST ALT Alkaline Phosphatase 192 H Ammonia Lactate Dehydrogenase Total Creatine Kinase Troponin T C-Reactive Protein Total Protein 5.8 L Albumin 2.0 L Triglycerides LDL Cholesterol Direct HDL Cholesterol Arterial Blood Glucose 242 H Arterial Blood Ionized Calcium Urine WBC (Auto) Salicylates Crossmatch 08/05/20 08/05/20 08/05/20 11:12 11:30 17:08 WBC RBC Hgb Hct MCV MCH MCHC RDW Plt Count Seg Neuts % (Manual) Lymphocytes % (Manual) Seg Neutrophils # Man Lymphocytes # (Manual) PT INR ABG pH POC ABG pCO2 POC ABG pO2 147.5 H ABG pO2 ABG O2 Saturation ABG Hemoglobin 7.5 L ABG Oxyhemoglobin 98.1 H ABG Sodium ABG Potassium ABG Chloride 113.0 H ABG Glucose 248 H Oxyhemoglobin Carboxyhemoglobin Sodium Potassium Chloride Carbon Dioxide BUN Creatinine Glucose POC Glucose 238 H 239 H Hemoglobin A1c Lactic Acid Calcium Ionized Calcium Phosphorus AST ALT Alkaline Phosphatase Ammonia Lactate Dehydrogenase Total Creatine Kinase Troponin T C-Reactive Protein Total Protein Albumin Triglycerides LDL Cholesterol Direct HDL Cholesterol Arterial Blood Glucose 248 H Arterial Blood Ionized Calcium Urine WBC (Auto) Salicylates Crossmatch 08/05/20 08/05/20 08/06/20 23:17 Unknown 05:12 WBC RBC Hgb Hct MCV MCH MCHC RDW Plt Count Seg Neuts % (Manual) Lymphocytes % (Manual) Seg Neutrophils # Man Lymphocytes # (Manual) PT INR ABG pH POC ABG pCO2 POC ABG pO2 ABG pO2 ABG O2 Saturation ABG Hemoglobin ABG Oxyhemoglobin ABG Sodium ABG Potassium ABG Chloride ABG Glucose Oxyhemoglobin Carboxyhemoglobin Sodium Potassium Chloride 109.2 H Carbon Dioxide BUN 51 H Creatinine Glucose 229 H POC Glucose 200 H 145 H Hemoglobin A1c Lactic Acid Calcium Ionized Calcium Phosphorus AST ALT Alkaline Phosphatase Ammonia Lactate Dehydrogenase Total Creatine Kinase Troponin T C-Reactive Protein Total Protein Albumin Triglycerides LDL Cholesterol Direct HDL Cholesterol Arterial Blood Glucose Arterial Blood Ionized Calcium Urine WBC (Auto) Salicylates Crossmatch 08/06/20 08/06/20 08/06/20 05:21 10:00 11:28 WBC RBC Hgb Hct MCV MCH MCHC RDW Plt Count Seg Neuts % (Manual) Lymphocytes % (Manual) Seg Neutrophils # Man Lymphocytes # (Manual) PT INR ABG pH 7.301 L 7.308 L POC ABG pCO2 49.5 H 49.1 H POC ABG pO2 178.4 H ABG pO2 ABG O2 Saturation ABG Hemoglobin 7.5 L 7.1 L ABG Oxyhemoglobin 98.8 H ABG Sodium ABG Potassium ABG Chloride 112.0 H 112.0 H ABG Glucose 149 H 162 H Oxyhemoglobin Carboxyhemoglobin Sodium Potassium Chloride Carbon Dioxide BUN Creatinine Glucose POC Glucose 158 H Hemoglobin A1c Lactic Acid Calcium Ionized Calcium Phosphorus AST ALT Alkaline Phosphatase Ammonia Lactate Dehydrogenase Total Creatine Kinase Troponin T C-Reactive Protein Total Protein Albumin Triglycerides LDL Cholesterol Direct HDL Cholesterol Arterial Blood Glucose 149 H 162 H Arterial Blood Ionized Calcium Urine WBC (Auto) Salicylates Crossmatch 08/06/20 08/06/20 08/06/20 17:42 23:56 Unknown WBC 13.0 H RBC 2.38 L Hgb 7.1 L Hct 21.5 L MCV MCH MCHC RDW 17.6 H Plt Count Seg Neuts % (Manual) Lymphocytes % (Manual) Seg Neutrophils # Man Lymphocytes # (Manual) PT INR ABG pH POC ABG pCO2 POC ABG pO2 ABG pO2 ABG O2 Saturation ABG Hemoglobin ABG Oxyhemoglobin ABG Sodium ABG Potassium ABG Chloride ABG Glucose Oxyhemoglobin Carboxyhemoglobin Sodium Potassium Chloride Carbon Dioxide BUN Creatinine Glucose POC Glucose 179 H 259 H Hemoglobin A1c Lactic Acid Calcium Ionized Calcium Phosphorus AST ALT Alkaline Phosphatase Ammonia Lactate Dehydrogenase Total Creatine Kinase Troponin T C-Reactive Protein Total Protein Albumin Triglycerides LDL Cholesterol Direct HDL Cholesterol Arterial Blood Glucose Arterial Blood Ionized Calcium Urine WBC (Auto) Salicylates Crossmatch 08/07/20 08/07/20 08/07/20 04:00 04:05 04:05 WBC RBC 2.32 L Hgb 7.1 L Hct 20.9 L MCV MCH MCHC RDW 17.9 H Plt Count Seg Neuts % (Manual) Lymphocytes % (Manual) Seg Neutrophils # Man Lymphocytes # (Manual) PT INR ABG pH POC ABG pCO2 POC ABG pO2 150.6 H ABG pO2 ABG O2 Saturation ABG Hemoglobin 8.0 L ABG Oxyhemoglobin 98.4 H ABG Sodium 146.7 H ABG Potassium ABG Chloride 114.0 H ABG Glucose 201 H Oxyhemoglobin Carboxyhemoglobin Sodium 151 H Potassium Chloride 114.3 H Carbon Dioxide BUN 63 H Creatinine Glucose 198 H POC Glucose Hemoglobin A1c Lactic Acid Calcium Ionized Calcium Phosphorus AST 54 H ALT Alkaline Phosphatase 213 H Ammonia Lactate Dehydrogenase Total Creatine Kinase Troponin T C-Reactive Protein Total Protein 6.1 L Albumin 2.0 L Triglycerides LDL Cholesterol Direct HDL Cholesterol Arterial Blood Glucose 201 H Arterial Blood Ionized Calcium Urine WBC (Auto) Salicylates Crossmatch 08/07/20 08/07/20 08/07/20 05:34 11:43 14:30 WBC RBC Hgb Hct MCV MCH MCHC RDW Plt Count Seg Neuts % (Manual) Lymphocytes % (Manual) Seg Neutrophils # Man Lymphocytes # (Manual) PT INR ABG pH POC ABG pCO2 POC ABG pO2 ABG pO2 62.9 L ABG O2 Saturation 86.7 L ABG Hemoglobin 7.1 L ABG Oxyhemoglobin ABG Sodium ABG Potassium ABG Chloride ABG Glucose Oxyhemoglobin 85.0 L Carboxyhemoglobin Sodium Potassium Chloride Carbon Dioxide BUN Creatinine Glucose POC Glucose 160 H 201 H Hemoglobin A1c Lactic Acid Calcium Ionized Calcium Phosphorus AST ALT Alkaline Phosphatase Ammonia Lactate Dehydrogenase Total Creatine Kinase Troponin T C-Reactive Protein Total Protein Albumin Triglycerides LDL Cholesterol Direct HDL Cholesterol Arterial Blood Glucose Arterial Blood Ionized Calcium Urine WBC (Auto) Salicylates Crossmatch 08/07/20 08/07/20 08/08/20 17:57 23:12 05:38 WBC RBC Hgb Hct MCV MCH MCHC RDW Plt Count Seg Neuts % (Manual) Lymphocytes % (Manual) Seg Neutrophils # Man Lymphocytes # (Manual) PT INR ABG pH POC ABG pCO2 POC ABG pO2 ABG pO2 ABG O2 Saturation ABG Hemoglobin ABG Oxyhemoglobin ABG Sodium ABG Potassium ABG Chloride ABG Glucose Oxyhemoglobin Carboxyhemoglobin Sodium Potassium Chloride Carbon Dioxide BUN Creatinine Glucose POC Glucose 242 H 246 H 135 H Hemoglobin A1c Lactic Acid Calcium Ionized Calcium Phosphorus AST ALT Alkaline Phosphatase Ammonia Lactate Dehydrogenase Total Creatine Kinase Troponin T C-Reactive Protein Total Protein Albumin Triglycerides LDL Cholesterol Direct HDL Cholesterol Arterial Blood Glucose Arterial Blood Ionized Calcium Urine WBC (Auto) Salicylates Crossmatch 08/08/20 08/08/20 08/08/20 09:49 11:40 17:28 WBC RBC Hgb Hct MCV MCH MCHC RDW Plt Count Seg Neuts % (Manual) Lymphocytes % (Manual) Seg Neutrophils # Man Lymphocytes # (Manual) PT INR ABG pH POC ABG pCO2 POC ABG pO2 ABG pO2 ABG O2 Saturation ABG Hemoglobin 6.9 L ABG Oxyhemoglobin ABG Sodium 146.1 H ABG Potassium ABG Chloride 114.0 H ABG Glucose 192 H Oxyhemoglobin Carboxyhemoglobin Sodium Potassium Chloride Carbon Dioxide BUN Creatinine Glucose POC Glucose 187 H 175 H Hemoglobin A1c Lactic Acid Calcium Ionized Calcium Phosphorus AST ALT Alkaline Phosphatase Ammonia Lactate Dehydrogenase Total Creatine Kinase Troponin T C-Reactive Protein Total Protein Albumin Triglycerides LDL Cholesterol Direct HDL Cholesterol Arterial Blood Glucose 192 H Arterial Blood Ionized Calcium Urine WBC (Auto) Salicylates Crossmatch 08/09/20 08/09/20 08/09/20 03:41 06:10 11:58 WBC RBC Hgb Hct MCV MCH MCHC RDW Plt Count Seg Neuts % (Manual) Lymphocytes % (Manual) Seg Neutrophils # Man Lymphocytes # (Manual) PT INR ABG pH POC ABG pCO2 POC ABG pO2 ABG pO2 ABG O2 Saturation ABG Hemoglobin 6.9 L ABG Oxyhemoglobin ABG Sodium 145.8 H ABG Potassium 4.6 H ABG Chloride 113.0 H ABG Glucose 113 H Oxyhemoglobin Carboxyhemoglobin Sodium Potassium Chloride Carbon Dioxide BUN Creatinine Glucose POC Glucose 118 H 124 H Hemoglobin A1c Lactic Acid Calcium Ionized Calcium Phosphorus AST ALT Alkaline Phosphatase Ammonia Lactate Dehydrogenase Total Creatine Kinase Troponin T C-Reactive Protein Total Protein Albumin Triglycerides LDL Cholesterol Direct HDL Cholesterol Arterial Blood Glucose 113 H Arterial Blood Ionized Calcium Urine WBC (Auto) Salicylates Crossmatch 08/09/20 08/09/20 08/09/20 14:05 14:05 17:42 WBC RBC 3.58 L Hgb 10.5 L D Hct 31.6 L D MCV MCH MCHC RDW 17.8 H Plt Count 125 L Seg Neuts % (Manual) Lymphocytes % (Manual) Seg Neutrophils # Man Lymphocytes # (Manual) PT INR ABG pH POC ABG pCO2 POC ABG pO2 ABG pO2 ABG O2 Saturation ABG Hemoglobin ABG Oxyhemoglobin ABG Sodium ABG Potassium ABG Chloride ABG Glucose Oxyhemoglobin Carboxyhemoglobin Sodium Potassium Chloride 111.2 H Carbon Dioxide BUN 74 H Creatinine Glucose 137 H POC Glucose 139 H Hemoglobin A1c Lactic Acid Calcium Ionized Calcium Phosphorus AST ALT Alkaline Phosphatase Ammonia Lactate Dehydrogenase Total Creatine Kinase Troponin T C-Reactive Protein Total Protein Albumin Triglycerides LDL Cholesterol Direct HDL Cholesterol Arterial Blood Glucose Arterial Blood Ionized Calcium Urine WBC (Auto) Salicylates Crossmatch 08/09/20 08/09/20 08/09/20 21:07 21:25 23:26 WBC RBC Hgb Hct MCV MCH MCHC RDW Plt Count Seg Neuts % (Manual) Lymphocytes % (Manual) Seg Neutrophils # Man Lymphocytes # (Manual) PT 15.5 H INR 1.17 H ABG pH POC ABG pCO2 POC ABG pO2 ABG pO2 ABG O2 Saturation ABG Hemoglobin ABG Oxyhemoglobin ABG Sodium ABG Potassium ABG Chloride ABG Glucose Oxyhemoglobin Carboxyhemoglobin Sodium Potassium Chloride Carbon Dioxide BUN Creatinine Glucose POC Glucose 156 H 167 H Hemoglobin A1c Lactic Acid Calcium Ionized Calcium Phosphorus AST ALT Alkaline Phosphatase Ammonia Lactate Dehydrogenase Total Creatine Kinase Troponin T C-Reactive Protein Total Protein Albumin Triglycerides LDL Cholesterol Direct HDL Cholesterol Arterial Blood Glucose Arterial Blood Ionized Calcium Urine WBC (Auto) Salicylates Crossmatch 08/10/20 08/10/20 08/10/20 03:04 12:19 14:53 WBC RBC 2.06 L Hgb 6.1 L D Hct 18.6 L* D MCV MCH MCHC RDW 18.3 H Plt Count 137 L Seg Neuts % (Manual) Lymphocytes % (Manual) Seg Neutrophils # Man Lymphocytes # (Manual) PT INR ABG pH POC ABG pCO2 POC ABG pO2 ABG pO2 ABG O2 Saturation ABG Hemoglobin 6.7 L ABG Oxyhemoglobin ABG Sodium ABG Potassium ABG Chloride 111.0 H ABG Glucose 116 H Oxyhemoglobin Carboxyhemoglobin Sodium Potassium Chloride Carbon Dioxide BUN Creatinine Glucose POC Glucose 57 L Hemoglobin A1c Lactic Acid Calcium Ionized Calcium Phosphorus AST ALT Alkaline Phosphatase Ammonia Lactate Dehydrogenase Total Creatine Kinase Troponin T C-Reactive Protein Total Protein Albumin Triglycerides LDL Cholesterol Direct HDL Cholesterol Arterial Blood Glucose 116 H Arterial Blood Ionized Calcium Urine WBC (Auto) Salicylates Crossmatch 08/10/20 08/10/20 08/10/20 14:53 18:08 23:11 WBC RBC Hgb Hct MCV MCH MCHC RDW Plt Count Seg Neuts % (Manual) Lymphocytes % (Manual) Seg Neutrophils # Man Lymphocytes # (Manual) PT INR ABG pH POC ABG pCO2 POC ABG pO2 ABG pO2 ABG O2 Saturation ABG Hemoglobin ABG Oxyhemoglobin ABG Sodium ABG Potassium ABG Chloride ABG Glucose Oxyhemoglobin Carboxyhemoglobin Sodium 146 H Potassium Chloride 111.1 H Carbon Dioxide BUN 72 H Creatinine 1.4 H Glucose 158 H POC Glucose 68 L Hemoglobin A1c Lactic Acid Calcium 8.2 L Ionized Calcium Phosphorus AST ALT Alkaline Phosphatase Ammonia Lactate Dehydrogenase Total Creatine Kinase Troponin T C-Reactive Protein Total Protein Albumin Triglycerides LDL Cholesterol Direct HDL Cholesterol Arterial Blood Glucose Arterial Blood Ionized Calcium Urine WBC (Auto) Salicylates Crossmatch See Detail 08/11/20 08/11/20 08/11/20 04:12 05:34 05:36 WBC RBC Hgb Hct MCV MCH MCHC RDW Plt Count Seg Neuts % (Manual) Lymphocytes % (Manual) Seg Neutrophils # Man Lymphocytes # (Manual) PT INR ABG pH POC ABG pCO2 POC ABG pO2 397.7 H ABG pO2 ABG O2 Saturation ABG Hemoglobin 7.6 L ABG Oxyhemoglobin 98.8 H ABG Sodium ABG Potassium ABG Chloride 113.0 H ABG Glucose 60 L Oxyhemoglobin Carboxyhemoglobin Sodium Potassium Chloride Carbon Dioxide BUN Creatinine Glucose POC Glucose 55 L 51 L Hemoglobin A1c Lactic Acid Calcium Ionized Calcium Phosphorus AST ALT Alkaline Phosphatase Ammonia Lactate Dehydrogenase Total Creatine Kinase Troponin T C-Reactive Protein Total Protein Albumin Triglycerides LDL Cholesterol Direct HDL Cholesterol Arterial Blood Glucose 60 L Arterial Blood Ionized Calcium 4.4 L Urine WBC (Auto) Salicylates Crossmatch 08/11/20 08/11/20 08/11/20 08:40 08:40 10:23 WBC RBC 2.14 L Hgb 6.2 L 6.3 L Hct 18.8 L* 19.0 L* MCV MCH MCHC RDW 17.6 H Plt Count Seg Neuts % (Manual) Lymphocytes % (Manual) Seg Neutrophils # Man Lymphocytes # (Manual) PT INR ABG pH POC ABG pCO2 POC ABG pO2 ABG pO2 ABG O2 Saturation ABG Hemoglobin ABG Oxyhemoglobin ABG Sodium ABG Potassium ABG Chloride ABG Glucose Oxyhemoglobin Carboxyhemoglobin Sodium 147 H Potassium Chloride 112.3 H Carbon Dioxide BUN 62 H Creatinine 1.5 H Glucose 73 L POC Glucose Hemoglobin A1c Lactic Acid Calcium 7.9 L Ionized Calcium Phosphorus AST ALT Alkaline Phosphatase Ammonia Lactate Dehydrogenase Total Creatine Kinase Troponin T C-Reactive Protein Total Protein Albumin Triglycerides LDL Cholesterol Direct HDL Cholesterol Arterial Blood Glucose Arterial Blood Ionized Calcium Urine WBC (Auto) Salicylates Crossmatch 08/11/20 08/11/2021 11:56 17:43 18:40 WBC RBC Hgb Hct MCV MCH MCHC RDW Plt Count Seg Neuts % (Manual) Lymphocytes % (Manual) Seg Neutrophils # Man Lymphocytes # (Manual) PT 15.7 H INR 1.19 H ABG pH POC ABG pCO2 POC ABG pO2 ABG pO2 ABG O2 Saturation ABG Hemoglobin ABG Oxyhemoglobin ABG Sodium ABG Potassium ABG Chloride ABG Glucose Oxyhemoglobin Carboxyhemoglobin Sodium Potassium Chloride Carbon Dioxide BUN Creatinine Glucose POC Glucose 53 L 113 H Hemoglobin A1c Lactic Acid Calcium Ionized Calcium Phosphorus AST ALT Alkaline Phosphatase Ammonia Lactate Dehydrogenase Total Creatine Kinase Troponin T C-Reactive Protein Total Protein Albumin Triglycerides LDL Cholesterol Direct HDL Cholesterol Arterial Blood Glucose Arterial Blood Ionized Calcium Urine WBC (Auto) Salicylates Crossmatch 08/11/20 08/11/20 08/11/20 18:40 20:10 22:13 WBC RBC Hgb 6.2 L 6.1 L Hct 18.4 L* 18.3 L* MCV MCH MCHC RDW Plt Count Seg Neuts % (Manual) Lymphocytes % (Manual) Seg Neutrophils # Man Lymphocytes # (Manual) PT INR ABG pH POC ABG pCO2 POC ABG pO2 163.6 H ABG pO2 ABG O2 Saturation ABG Hemoglobin 7.7 L ABG Oxyhemoglobin 98.3 H ABG Sodium ABG Potassium ABG Chloride 112.0 H ABG Glucose 119 H Oxyhemoglobin Carboxyhemoglobin Sodium Potassium Chloride Carbon Dioxide BUN Creatinine Glucose POC Glucose Hemoglobin A1c Lactic Acid Calcium Ionized Calcium Phosphorus AST ALT Alkaline Phosphatase Ammonia Lactate Dehydrogenase Total Creatine Kinase Troponin T C-Reactive Protein Total Protein Albumin Triglycerides LDL Cholesterol Direct HDL Cholesterol Arterial Blood Glucose 119 H Arterial Blood Ionized Calcium 4.4 L Urine WBC (Auto) Salicylates Crossmatch 08/11/20 08/12/20 08/12/20 23:32 04:43 04:43 WBC RBC Hgb Hct MCV MCH MCHC RDW Plt Count Seg Neuts % (Manual) Lymphocytes % (Manual) Seg Neutrophils # Man Lymphocytes # (Manual) PT INR ABG pH POC ABG pCO2 POC ABG pO2 ABG pO2 ABG O2 Saturation ABG Hemoglobin ABG Oxyhemoglobin ABG Sodium ABG Potassium ABG Chloride ABG Glucose Oxyhemoglobin Carboxyhemoglobin Sodium Potassium Chloride Carbon Dioxide BUN Creatinine Glucose POC Glucose 106 H Hemoglobin A1c Lactic Acid Calcium Ionized Calcium Phosphorus AST 57 H ALT Alkaline Phosphatase 288 H Ammonia Lactate Dehydrogenase 239 H Total Creatine Kinase Troponin T C-Reactive Protein Total Protein 6.0 L Albumin 1.7 L Triglycerides LDL Cholesterol Direct HDL Cholesterol Arterial Blood Glucose Arterial Blood Ionized Calcium Urine WBC (Auto) Salicylates Crossmatch 08/12/20 08/12/20 08/12/20 04:53 05:07 07:55 WBC RBC 3.03 L 2.90 L Hgb 8.5 L 8.1 L Hct 25.6 L D 24.4 L MCV MCH MCHC RDW 18.4 H 18.9 H Plt Count Seg Neuts % (Manual) 88.0 H Lymphocytes % (Manual) 6.0 L Seg Neutrophils # Man Lymphocytes # (Manual) 0.4 L PT INR ABG pH POC ABG pCO2 POC ABG pO2 ABG pO2 ABG O2 Saturation ABG Hemoglobin ABG Oxyhemoglobin ABG Sodium ABG Potassium ABG Chloride ABG Glucose Oxyhemoglobin Carboxyhemoglobin Sodium Potassium Chloride Carbon Dioxide BUN Creatinine Glucose POC Glucose 139 H Hemoglobin A1c Lactic Acid Calcium Ionized Calcium Phosphorus AST ALT Alkaline Phosphatase Ammonia Lactate Dehydrogenase Total Creatine Kinase Troponin T C-Reactive Protein Total Protein Albumin Triglycerides LDL Cholesterol Direct HDL Cholesterol Arterial Blood Glucose Arterial Blood Ionized Calcium Urine WBC (Auto) Salicylates Crossmatch 08/12/20 08/12/20 08/12/20 07:55 11:17 13:05 WBC RBC Hgb Hct MCV MCH MCHC RDW Plt Count Seg Neuts % (Manual) Lymphocytes % (Manual) Seg Neutrophils # Man Lymphocytes # (Manual) PT INR ABG pH POC ABG pCO2 POC ABG pO2 ABG pO2 ABG O2 Saturation ABG Hemoglobin ABG Oxyhemoglobin ABG Sodium ABG Potassium ABG Chloride ABG Glucose Oxyhemoglobin Carboxyhemoglobin Sodium Potassium 3.3 L Chloride 109.8 H Carbon Dioxide BUN 52 H Creatinine Glucose 153 H POC Glucose 150 H 143 H Hemoglobin A1c Lactic Acid Calcium 8.1 L Ionized Calcium Phosphorus AST ALT Alkaline Phosphatase Ammonia Lactate Dehydrogenase Total Creatine Kinase Troponin T C-Reactive Protein Total Protein Albumin Triglycerides LDL Cholesterol Direct HDL Cholesterol Arterial Blood Glucose Arterial Blood Ionized Calcium Urine WBC (Auto) Salicylates Crossmatch Chest x-ray: image reviewed Allied health notes reviewed: nursing
[2020-08-12] MEDS: HYDROmorphone 1 MG/1 ML INJ IV PRN (18:19)
[2020-08-13] MEDS: INSULIN LISPRO 100 UNIT/ML SUB-Q SCH ×4 (00:14→18:51)
[2020-08-13] MEDS: FREE WATER PO SCH ×6 (02:28→23:07)
--- NOTE | 2020-08-13 07:56 | Progress Note ---
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 ABG pH POC ABG pCO2 POC ABG pO2 82.1 L ABG pO2 ABG O2 Saturation ABG Hemoglobin 8.6 L ABG Oxyhemoglobin 93.7 L ABG Sodium ABG Potassium ABG Chloride 113.0 H ABG Glucose 205 H Oxyhemoglobin Carboxyhemoglobin Sodium Potassium Chloride Carbon Dioxide BUN Creatinine Glucose POC Glucose 198 H 213 H Hemoglobin A1c Lactic Acid Calcium Ionized Calcium Phosphorus AST ALT Alkaline Phosphatase Ammonia Lactate Dehydrogenase Total Creatine Kinase Troponin T C-Reactive Protein Total Protein Albumin Triglycerides LDL Cholesterol Direct HDL Cholesterol Arterial Blood Glucose 205 H Arterial Blood Ionized Calcium Urine WBC (Auto) Salicylates Crossmatch 08/05/20 08/05/20 08/05/20 08:48 08:48 10:55 WBC 14.3 H RBC 2.76 L Hgb 8.1 L Hct 24.8 L MCV MCH MCHC RDW 17.4 H Plt Count 138 L Seg Neuts % (Manual) 97.0 H Lymphocytes % (Manual) 1.0 L Seg Neutrophils # Man 13.9 H Lymphocytes # (Manual) 0.1 L PT INR ABG pH POC ABG pCO2 POC ABG pO2 158.7 H ABG pO2 ABG O2 Saturation ABG Hemoglobin 7.8 L ABG Oxyhemoglobin ABG Sodium ABG Potassium ABG Chloride 114.0 H ABG Glucose 242 H Oxyhemoglobin Carboxyhemoglobin Sodium 146 H Potassium Chloride 110.1 H Carbon Dioxide BUN 56 H Creatinine Glucose 219 H POC Glucose Hemoglobin A1c Lactic Acid Calcium Ionized Calcium Phosphorus AST ALT Alkaline Phosphatase 192 H Ammonia Lactate Dehydrogenase Total Creatine Kinase Troponin T C-Reactive Protein Total Protein 5.8 L Albumin 2.0 L Triglycerides LDL Cholesterol Direct HDL Cholesterol Arterial Blood Glucose 242 H Arterial Blood Ionized Calcium Urine WBC (Auto) Salicylates Crossmatch 08/05/20 08/05/20 08/05/20 11:12 11:30 17:08 WBC RBC Hgb Hct MCV MCH MCHC RDW Plt Count Seg Neuts % (Manual) Lymphocytes % (Manual) Seg Neutrophils # Man Lymphocytes # (Manual) PT INR ABG pH POC ABG pCO2 POC ABG pO2 147.5 H ABG pO2 ABG O2 Saturation ABG Hemoglobin 7.5 L ABG Oxyhemoglobin 98.1 H ABG Sodium ABG Potassium ABG Chloride 113.0 H ABG Glucose 248 H Oxyhemoglobin Carboxyhemoglobin Sodium Potassium Chloride Carbon Dioxide BUN Creatinine Glucose POC Glucose 238 H 239 H Hemoglobin A1c Lactic Acid Calcium Ionized Calcium Phosphorus AST ALT Alkaline Phosphatase Ammonia Lactate Dehydrogenase Total Creatine Kinase Troponin T C-Reactive Protein Total Protein Albumin Triglycerides LDL Cholesterol Direct HDL Cholesterol Arterial Blood Glucose 248 H Arterial Blood Ionized Calcium Urine WBC (Auto) Salicylates Crossmatch 08/05/20 08/05/20 08/06/20 23:17 Unknown 05:12 WBC RBC Hgb Hct MCV MCH MCHC RDW Plt Count Seg Neuts % (Manual) Lymphocytes % (Manual) Seg Neutrophils # Man Lymphocytes # (Manual) PT INR ABG pH POC ABG pCO2 POC ABG pO2 ABG pO2 ABG O2 Saturation ABG Hemoglobin ABG Oxyhemoglobin ABG Sodium ABG Potassium ABG Chloride ABG Glucose Oxyhemoglobin Carboxyhemoglobin Sodium Potassium Chloride 109.2 H Carbon Dioxide BUN 51 H Creatinine Glucose 229 H POC Glucose 200 H 145 H Hemoglobin A1c Lactic Acid Calcium Ionized Calcium Phosphorus AST ALT Alkaline Phosphatase Ammonia Lactate Dehydrogenase Total Creatine Kinase Troponin T C-Reactive Protein Total Protein Albumin Triglycerides LDL Cholesterol Direct HDL Cholesterol Arterial Blood Glucose Arterial Blood Ionized Calcium Urine WBC (Auto) Salicylates Crossmatch 08/06/20 08/06/20 08/06/20 05:21 10:00 11:28 WBC RBC Hgb Hct MCV MCH MCHC RDW Plt Count Seg Neuts % (Manual) Lymphocytes % (Manual) Seg Neutrophils # Man Lymphocytes # (Manual) PT INR ABG pH 7.301 L 7.308 L POC ABG pCO2 49.5 H 49.1 H POC ABG pO2 178.4 H ABG pO2 ABG O2 Saturation ABG Hemoglobin 7.5 L 7.1 L ABG Oxyhemoglobin 98.8 H ABG Sodium ABG Potassium ABG Chloride 112.0 H 112.0 H ABG Glucose 149 H 162 H Oxyhemoglobin Carboxyhemoglobin Sodium Potassium Chloride Carbon Dioxide BUN Creatinine Glucose POC Glucose 158 H Hemoglobin A1c Lactic Acid Calcium Ionized Calcium Phosphorus AST ALT Alkaline Phosphatase Ammonia Lactate Dehydrogenase Total Creatine Kinase Troponin T C-Reactive Protein Total Protein Albumin Triglycerides LDL Cholesterol Direct HDL Cholesterol Arterial Blood Glucose 149 H 162 H Arterial Blood Ionized Calcium Urine WBC (Auto) Salicylates Crossmatch 08/06/20 08/06/20 08/06/20 17:42 23:56 Unknown WBC 13.0 H RBC 2.38 L Hgb 7.1 L Hct 21.5 L MCV MCH MCHC RDW 17.6 H Plt Count Seg Neuts % (Manual) Lymphocytes % (Manual) Seg Neutrophils # Julien Lymphocytes # (Manual) PT INR ABG pH POC ABG pCO2 POC ABG pO2 ABG pO2 ABG O2 Saturation ABG Hemoglobin ABG Oxyhemoglobin ABG Sodium ABG Potassium ABG Chloride ABG Glucose Oxyhemoglobin Carboxyhemoglobin Sodium Potassium Chloride Carbon Dioxide BUN Creatinine Glucose POC Glucose 179 H 259 H Hemoglobin A1c Lactic Acid Calcium Ionized Calcium Phosphorus AST ALT Alkaline Phosphatase Ammonia Lactate Dehydrogenase Total Creatine Kinase Troponin T C-Reactive Protein Total Protein Albumin Triglycerides LDL Cholesterol Direct HDL Cholesterol Arterial Blood Glucose Arterial Blood Ionized Calcium Urine WBC (Auto) Salicylates Crossmatch 08/07/20 08/07/20 08/07/20 04:00 04:05 04:05 WBC RBC 2.32 L Hgb 7.1 L Hct 20.9 L MCV MCH MCHC RDW 17.9 H Plt Count Seg Neuts % (Manual) Lymphocytes % (Manual) Seg Neutrophils # Man Lymphocytes # (Manual) PT INR ABG pH POC ABG pCO2 POC ABG pO2 150.6 H ABG pO2 ABG O2 Saturation ABG Hemoglobin 8.0 L ABG Oxyhemoglobin 98.4 H ABG Sodium 146.7 H ABG Potassium ABG Chloride 114.0 H ABG Glucose 201 H Oxyhemoglobin Carboxyhemoglobin Sodium 151 H Potassium Chloride 114.3 H Carbon Dioxide BUN 63 H Creatinine Glucose 198 H POC Glucose Hemoglobin A1c Lactic Acid Calcium Ionized Calcium Phosphorus AST 54 H ALT Alkaline Phosphatase 213 H Ammonia Lactate Dehydrogenase Total Creatine Kinase Troponin T C-Reactive Protein Total Protein 6.1 L Albumin 2.0 L Triglycerides LDL Cholesterol Direct HDL Cholesterol Arterial Blood Glucose 201 H Arterial Blood Ionized Calcium Urine WBC (Auto) Salicylates Crossmatch 08/07/20 08/07/20 08/07/20 05:34 11:43 14:30 WBC RBC Hgb Hct MCV MCH MCHC RDW Plt Count Seg Neuts % (Manual) Lymphocytes % (Manual) Seg Neutrophils # Man Lymphocytes # (Manual) PT INR ABG pH POC ABG pCO2 POC ABG pO2 ABG pO2 62.9 L ABG O2 Saturation 86.7 L ABG Hemoglobin 7.1 L ABG Oxyhemoglobin ABG Sodium ABG Potassium ABG Chloride ABG Glucose Oxyhemoglobin 85.0 L Carboxyhemoglobin Sodium Potassium Chloride Carbon Dioxide BUN Creatinine Glucose POC Glucose 160 H 201 H Hemoglobin A1c Lactic Acid Calcium Ionized Calcium Phosphorus AST ALT Alkaline Phosphatase Ammonia Lactate Dehydrogenase Total Creatine Kinase Troponin T C-Reactive Protein Total Protein Albumin Triglycerides LDL Cholesterol Direct HDL Cholesterol Arterial Blood Glucose Arterial Blood Ionized Calcium Urine WBC (Auto) Salicylates Crossmatch 08/07/20 08/07/20 08/08/20 17:57 23:12 05:38 WBC RBC Hgb Hct MCV MCH MCHC RDW Plt Count Seg Neuts % (Manual) Lymphocytes % (Manual) Seg Neutrophils # Man Lymphocytes # (Manual) PT INR ABG pH POC ABG pCO2 POC ABG pO2 ABG pO2 ABG O2 Saturation ABG Hemoglobin ABG Oxyhemoglobin ABG Sodium ABG Potassium ABG Chloride ABG Glucose Oxyhemoglobin Carboxyhemoglobin Sodium Potassium Chloride Carbon Dioxide BUN Creatinine Glucose POC Glucose 242 H 246 H 135 H Hemoglobin A1c Lactic Acid Calcium Ionized Calcium Phosphorus AST ALT Alkaline Phosphatase Ammonia Lactate Dehydrogenase Total Creatine Kinase Troponin T C-Reactive Protein Total Protein Albumin Triglycerides LDL Cholesterol Direct HDL Cholesterol Arterial Blood Glucose Arterial Blood Ionized Calcium Urine WBC (Auto) Salicylates Crossmatch 08/08/20 08/08/20 08/08/20 09:49 11:40 17:28 WBC RBC Hgb Hct MCV MCH MCHC RDW Plt Count Seg Neuts % (Manual) Lymphocytes % (Manual) Seg Neutrophils # Man Lymphocytes # (Manual) PT INR ABG pH POC ABG pCO2 POC ABG pO2 ABG pO2 ABG O2 Saturation ABG Hemoglobin 6.9 L ABG Oxyhemoglobin ABG Sodium 146.1 H ABG Potassium ABG Chloride 114.0 H ABG Glucose 192 H Oxyhemoglobin Carboxyhemoglobin Sodium Potassium Chloride Carbon Dioxide BUN Creatinine Glucose POC Glucose 187 H 175 H Hemoglobin A1c Lactic Acid Calcium Ionized Calcium Phosphorus AST ALT Alkaline Phosphatase Ammonia Lactate Dehydrogenase Total Creatine Kinase Troponin T C-Reactive Protein Total Protein Albumin Triglycerides LDL Cholesterol Direct HDL Cholesterol Arterial Blood Glucose 192 H Arterial Blood Ionized Calcium Urine WBC (Auto) Salicylates Crossmatch 08/09/20 08/09/20 08/09/20 03:41 06:10 11:58 WBC RBC Hgb Hct MCV MCH MCHC RDW Plt Count Seg Neuts % (Manual) Lymphocytes % (Manual) Seg Neutrophils # Man Lymphocytes # (Manual) PT INR ABG pH POC ABG pCO2 POC ABG pO2 ABG pO2 ABG O2 Saturation ABG Hemoglobin 6.9 L ABG Oxyhemoglobin ABG Sodium 145.8 H ABG Potassium 4.6 H ABG Chloride 113.0 H ABG Glucose 113 H Oxyhemoglobin Carboxyhemoglobin Sodium Potassium Chloride Carbon Dioxide BUN Creatinine Glucose POC Glucose 118 H 124 H Hemoglobin A1c Lactic Acid Calcium Ionized Calcium Phosphorus AST ALT Alkaline Phosphatase Ammonia Lactate Dehydrogenase Total Creatine Kinase Troponin T C-Reactive Protein Total Protein Albumin Triglycerides LDL Cholesterol Direct HDL Cholesterol Arterial Blood Glucose 113 H Arterial Blood Ionized Calcium Urine WBC (Auto) Salicylates Crossmatch 08/09/20 08/09/20 08/09/20 14:05 14:05 17:42 WBC RBC 3.58 L Hgb 10.5 L D Hct 31.6 L D MCV MCH MCHC RDW 17.8 H Plt Count 125 L Seg Neuts % (Manual) Lymphocytes % (Manual) Seg Neutrophils # Man Lymphocytes # (Manual) PT INR ABG pH POC ABG pCO2 POC ABG pO2 ABG pO2 ABG O2 Saturation ABG Hemoglobin ABG Oxyhemoglobin ABG Sodium ABG Potassium ABG Chloride ABG Glucose Oxyhemoglobin Carboxyhemoglobin Sodium Potassium Chloride 111.2 H Carbon Dioxide BUN 74 H Creatinine Glucose 137 H POC Glucose 139 H Hemoglobin A1c Lactic Acid Calcium Ionized Calcium Phosphorus AST ALT Alkaline Phosphatase Ammonia Lactate Dehydrogenase Total Creatine Kinase Troponin T C-Reactive Protein Total Protein Albumin Triglycerides LDL Cholesterol Direct HDL Cholesterol Arterial Blood Glucose Arterial Blood Ionized Calcium Urine WBC (Auto) Salicylates Crossmatch 08/09/20 08/09/20 08/09/20 21:07 21:25 23:26 WBC RBC Hgb Hct MCV MCH MCHC RDW Plt Count Seg Neuts % (Manual) Lymphocytes % (Manual) Seg Neutrophils # Man Lymphocytes # (Manual) PT 15.5 H INR 1.17 H ABG pH POC ABG pCO2 POC ABG pO2 ABG pO2 ABG O2 Saturation ABG Hemoglobin ABG Oxyhemoglobin ABG Sodium ABG Potassium ABG Chloride ABG Glucose Oxyhemoglobin Carboxyhemoglobin Sodium Potassium Chloride Carbon Dioxide BUN Creatinine Glucose POC Glucose 156 H 167 H Hemoglobin A1c Lactic Acid Calcium Ionized Calcium Phosphorus AST ALT Alkaline Phosphatase Ammonia Lactate Dehydrogenase Total Creatine Kinase Troponin T C-Reactive Protein Total Protein Albumin Triglycerides LDL Cholesterol Direct HDL Cholesterol Arterial Blood Glucose Arterial Blood Ionized Calcium Urine WBC (Auto) Salicylates Crossmatch 08/10/20 08/10/20 08/10/20 03:04 12:19 14:53 WBC RBC 2.06 L Hgb 6.1 L D Hct 18.6 L* D MCV MCH MCHC RDW 18.3 H Plt Count 137 L Seg Neuts % (Manual) Lymphocytes % (Manual) Seg Neutrophils # Man Lymphocytes # (Manual) PT INR ABG pH POC ABG pCO2 POC ABG pO2 ABG pO2 ABG O2 Saturation ABG Hemoglobin 6.7 L ABG Oxyhemoglobin ABG Sodium ABG Potassium ABG Chloride 111.0 H ABG Glucose 116 H Oxyhemoglobin Carboxyhemoglobin Sodium Potassium Chloride Carbon Dioxide BUN Creatinine Glucose POC Glucose 57 L Hemoglobin A1c Lactic Acid Calcium Ionized Calcium Phosphorus AST ALT Alkaline Phosphatase Ammonia Lactate Dehydrogenase Total Creatine Kinase Troponin T C-Reactive Protein Total Protein Albumin Triglycerides LDL Cholesterol Direct HDL Cholesterol Arterial Blood Glucose 116 H Arterial Blood Ionized Calcium Urine WBC (Auto) Salicylates Crossmatch 08/10/20 08/10/20 08/10/20 14:53 18:08 23:11 WBC RBC Hgb Hct MCV MCH MCHC RDW Plt Count Seg Neuts % (Manual) Lymphocytes % (Manual) Seg Neutrophils # Man Lymphocytes # (Manual) PT INR ABG pH POC ABG pCO2 POC ABG pO2 ABG pO2 ABG O2 Saturation ABG Hemoglobin ABG Oxyhemoglobin ABG Sodium ABG Potassium ABG Chloride ABG Glucose Oxyhemoglobin Carboxyhemoglobin Sodium 146 H Potassium Chloride 111.1 H Carbon Dioxide BUN 72 H Creatinine 1.4 H Glucose 158 H POC Glucose 68 L Hemoglobin A1c Lactic Acid Calcium 8.2 L Ionized Calcium Phosphorus AST ALT Alkaline Phosphatase Ammonia Lactate Dehydrogenase Total Creatine Kinase Troponin T C-Reactive Protein Total Protein Albumin Triglycerides LDL Cholesterol Direct HDL Cholesterol Arterial Blood Glucose Arterial Blood Ionized Calcium Urine WBC (Auto) Salicylates Crossmatch See Detail 08/11/20 08/11/20 08/11/20 04:12 05:34 05:36 WBC RBC Hgb Hct MCV MCH MCHC RDW Plt Count Seg Neuts % (Manual) Lymphocytes % (Manual) Seg Neutrophils # Man Lymphocytes # (Manual) PT INR ABG pH POC ABG pCO2 POC ABG pO2 397.7 H ABG pO2 ABG O2 Saturation ABG Hemoglobin 7.6 L ABG Oxyhemoglobin 98.8 H ABG Sodium ABG Potassium ABG Chloride 113.0 H ABG Glucose 60 L Oxyhemoglobin Carboxyhemoglobin Sodium Potassium Chloride Carbon Dioxide BUN Creatinine Glucose POC Glucose 55 L 51 L Hemoglobin A1c Lactic Acid Calcium Ionized Calcium Phosphorus AST ALT Alkaline Phosphatase Ammonia Lactate Dehydrogenase Total Creatine Kinase Troponin T C-Reactive Protein Total Protein Albumin Triglycerides LDL Cholesterol Direct HDL Cholesterol Arterial Blood Glucose 60 L Arterial Blood Ionized Calcium 4.4 L Urine WBC (Auto) Salicylates Crossmatch 08/11/20 08/11/20 08/11/20 08:40 08:40 10:23 WBC RBC 2.14 L Hgb 6.2 L 6.3 L Hct 18.8 L* 19.0 L* MCV MCH MCHC RDW 17.6 H Plt Count Seg Neuts % (Manual) Lymphocytes % (Manual) Seg Neutrophils # Man Lymphocytes # (Manual) PT INR ABG pH POC ABG pCO2 POC ABG pO2 ABG pO2 ABG O2 Saturation ABG Hemoglobin ABG Oxyhemoglobin ABG Sodium ABG Potassium ABG Chloride ABG Glucose Oxyhemoglobin Carboxyhemoglobin Sodium 147 H Potassium Chloride 112.3 H Carbon Dioxide BUN 62 H Creatinine 1.5 H Glucose 73 L POC Glucose Hemoglobin A1c Lactic Acid Calcium 7.9 L Ionized Calcium Phosphorus AST ALT Alkaline Phosphatase Ammonia Lactate Dehydrogenase Total Creatine Kinase Troponin T C-Reactive Protein Total Protein Albumin Triglycerides LDL Cholesterol Direct HDL Cholesterol Arterial Blood Glucose Arterial Blood Ionized Calcium Urine WBC (Auto) Salicylates Crossmatch 08/11/20 08/11/20 08/11/20 11:56 17:43 18:40 WBC RBC Hgb Hct MCV MCH MCHC RDW Plt Count Seg Neuts % (Manual) Lymphocytes % (Manual) Seg Neutrophils # Man Lymphocytes # (Manual) PT 15.7 H INR 1.19 H ABG pH POC ABG pCO2 POC ABG pO2 ABG pO2 ABG O2 Saturation ABG Hemoglobin ABG Oxyhemoglobin ABG Sodium ABG Potassium ABG Chloride ABG Glucose Oxyhemoglobin Carboxyhemoglobin Sodium Potassium Chloride Carbon Dioxide BUN Creatinine Glucose POC Glucose 53 L 113 H Hemoglobin A1c Lactic Acid Calcium Ionized Calcium Phosphorus AST ALT Alkaline Phosphatase Ammonia Lactate Dehydrogenase Total Creatine Kinase Troponin T C-Reactive Protein Total Protein Albumin Triglycerides LDL Cholesterol Direct HDL Cholesterol Arterial Blood Glucose Arterial Blood Ionized Calcium Urine WBC (Auto) Salicylates Crossmatch 08/11/20 08/11/20 08/11/20 18:40 20:10 22:13 WBC RBC Hgb 6.2 L 6.1 L Hct 18.4 L* 18.3 L* MCV MCH MCHC RDW Plt Count Seg Neuts % (Manual) Lymphocytes % (Manual) Seg Neutrophils # Man Lymphocytes # (Manual) PT INR ABG pH POC ABG pCO2 POC ABG pO2 163.6 H ABG pO2 ABG O2 Saturation ABG Hemoglobin 7.7 L ABG Oxyhemoglobin 98.3 H ABG Sodium ABG Potassium ABG Chloride 112.0 H ABG Glucose 119 H Oxyhemoglobin Carboxyhemoglobin Sodium Potassium Chloride Carbon Dioxide BUN Creatinine Glucose POC Glucose Hemoglobin A1c Lactic Acid Calcium Ionized Calcium Phosphorus AST ALT Alkaline Phosphatase Ammonia Lactate Dehydrogenase Total Creatine Kinase Troponin T C-Reactive Protein Total Protein Albumin Triglycerides LDL Cholesterol Direct HDL Cholesterol Arterial Blood Glucose 119 H Arterial Blood Ionized Calcium 4.4 L Urine WBC (Auto) Salicylates Crossmatch 08/11/20 08/12/20 08/12/20 23:32 04:43 04:43 WBC RBC Hgb Hct MCV MCH MCHC RDW Plt Count Seg Neuts % (Manual) Lymphocytes % (Manual) Seg Neutrophils # Man Lymphocytes # (Manual) PT INR ABG pH POC ABG pCO2 POC ABG pO2 ABG pO2 ABG O2 Saturation ABG Hemoglobin ABG Oxyhemoglobin ABG Sodium ABG Potassium ABG Chloride ABG Glucose Oxyhemoglobin Carboxyhemoglobin Sodium Potassium Chloride Carbon Dioxide BUN Creatinine Glucose POC Glucose 106 H Hemoglobin A1c Lactic Acid Calcium Ionized Calcium Phosphorus AST 57 H ALT Alkaline Phosphatase 288 H Ammonia Lactate Dehydrogenase 239 H Total Creatine Kinase Troponin T C-Reactive Protein Total Protein 6.0 L Albumin 1.7 L Triglycerides LDL Cholesterol Direct HDL Cholesterol Arterial Blood Glucose Arterial Blood Ionized Calcium Urine WBC (Auto) Salicylates Crossmatch 08/12/20 08/12/20 08/12/20 04:53 05:07 07:55 WBC RBC 3.03 L 2.90 L Hgb 8.5 L 8.1 L Hct 25.6 L D 24.4 L MCV MCH MCHC RDW 18.4 H 18.9 H Plt Count Seg Neuts % (Manual) 88.0 H Lymphocytes % (Manual) 6.0 L Seg Neutrophils # Man Lymphocytes # (Manual) 0.4 L PT INR ABG pH POC ABG pCO2 POC ABG pO2 ABG pO2 ABG O2 Saturation ABG Hemoglobin ABG Oxyhemoglobin ABG Sodium ABG Potassium ABG Chloride ABG Glucose Oxyhemoglobin Carboxyhemoglobin Sodium Potassium Chloride Carbon Dioxide BUN Creatinine Glucose POC Glucose 139 H Hemoglobin A1c Lactic Acid Calcium Ionized Calcium Phosphorus AST ALT Alkaline Phosphatase Ammonia Lactate Dehydrogenase Total Creatine Kinase Troponin T C-Reactive Protein Total Protein Albumin Triglycerides LDL Cholesterol Direct HDL Cholesterol Arterial Blood Glucose Arterial Blood Ionized Calcium Urine WBC (Auto) Salicylates Crossmatch 08/12/20 08/12/20 08/12/20 07:55 11:17 13:05 WBC RBC Hgb Hct MCV MCH MCHC RDW Plt Count Seg Neuts % (Manual) Lymphocytes % (Manual) Seg Neutrophils # Man Lymphocytes # (Manual) PT INR ABG pH POC ABG pCO2 POC ABG pO2 ABG pO2 ABG O2 Saturation ABG Hemoglobin ABG Oxyhemoglobin ABG Sodium ABG Potassium ABG Chloride ABG Glucose Oxyhemoglobin Carboxyhemoglobin Sodium Potassium 3.3 L Chloride 109.8 H Carbon Dioxide BUN 52 H Creatinine Glucose 153 H POC Glucose 150 H 143 H Hemoglobin A1c Lactic Acid Calcium 8.1 L Ionized Calcium Phosphorus AST ALT Alkaline Phosphatase Ammonia Lactate Dehydrogenase Total Creatine Kinase Troponin T C-Reactive Protein Total Protein Albumin Triglycerides LDL Cholesterol Direct HDL Cholesterol Arterial Blood Glucose Arterial Blood Ionized Calcium Urine WBC (Auto) Salicylates Crossmatch 08/12/20 08/12/20 08/12/20 17:29 18:28 23:22 WBC RBC Hgb Hct MCV MCH MCHC RDW Plt Count Seg Neuts % (Manual) Lymphocytes % (Manual) Seg Neutrophils # Man Lymphocytes # (Manual) PT INR ABG pH POC ABG pCO2 POC ABG pO2 ABG pO2 ABG O2 Saturation ABG Hemoglobin ABG Oxyhemoglobin ABG Sodium ABG Potassium ABG Chloride ABG Glucose Oxyhemoglobin Carboxyhemoglobin Sodium Potassium Chloride Carbon Dioxide BUN Creatinine Glucose POC Glucose 158 H 158 H 191 H Hemoglobin A1c Lactic Acid Calcium Ionized Calcium Phosphorus AST ALT Alkaline Phosphatase Ammonia Lactate Dehydrogenase Total Creatine Kinase Troponin T C-Reactive Protein Total Protein Albumin Triglycerides LDL Cholesterol Direct HDL Cholesterol Arterial Blood Glucose Arterial Blood Ionized Calcium Urine WBC (Auto) Salicylates Crossmatch 08/13/20 05:32 WBC RBC Hgb Hct MCV MCH MCHC RDW Plt Count Seg Neuts % (Manual) Lymphocytes % (Manual) Seg Neutrophils # Man Lymphocytes # (Manual) PT INR ABG pH POC ABG pCO2 POC ABG pO2 ABG pO2 ABG O2 Saturation ABG Hemoglobin ABG Oxyhemoglobin ABG Sodium ABG Potassium ABG Chloride ABG Glucose Oxyhemoglobin Carboxyhemoglobin Sodium Potassium Chloride Carbon Dioxide BUN Creatinine Glucose POC Glucose 131 H Hemoglobin A1c Lactic Acid Calcium Ionized Calcium Phosphorus AST ALT Alkaline Phosphatase Ammonia Lactate Dehydrogenase Total Creatine Kinase Troponin T C-Reactive Protein Total Protein Albumin Triglycerides LDL Cholesterol Direct HDL Cholesterol Arterial Blood Glucose Arterial Blood Ionized Calcium Urine WBC (Auto) Salicylates Crossmatch Chest x-ray: image reviewed Allied health notes reviewed: RT
[2020-08-13] MEDS: ZINC SULFATE 220 MG CAP PO SCH ×2 (09:52→21:17)
[2020-08-13] MEDS: SENNOSIDES/DOCUSATE SODIUM 8.6/50 MG TAB FEEDTUBE SCH ×2 (09:52→21:17)
[2020-08-13] MEDS: ENOXAPARIN 40 MG/0.4 ML INJ SUB-Q SCH (09:52)
[2020-08-13] MEDS: METOPROLOL TARTRATE 25 MG TAB PO SCH ×2 (09:53→21:18)
[2020-08-13] MEDS: amLODIPine 5 MG TAB PO SCH (09:53)
[2020-08-13] MEDS: INSULIN GLARGINE 100 UNITS/ML SUB-Q SCH (09:54)
[2020-08-13] MEDS: ASCORBIC ACID 500 MG TAB PO SCH ×2 (09:54→21:18)
[2020-08-13] MEDS: cefTRIAXone/NS 2 GM/100 ML 2 GM/100 ML BAG IV SCH (09:54)
[2020-08-13] MEDS: FAMOTIDINE 20 MG TAB PO SCH ×2 (09:54→21:18)
[2020-08-13] MEDS: SCOPOLAMINE TRANSDERMAL PATCH 72 HR TD SCH (09:54)
--- NOTE | 2020-08-13 10:02 | Progress Note ---
Assessment and Plan - Patient Problems (1) Bradycardia Current Visit: Yes Status: Acute Plan to address problem: Patient has had no further bradycardia arrhythmia, continue supportive management, conservative cardiac follow-up. Subjective Date of service: 08/13/20 Principal diagnosis: Ac. encephalopathy; Ac. hypoxemic resp failure; Septic Shock; PNA; UTI; [place] Interval history: Patient is sedated, on the vent via a tracheostomy. Heart rate is 88, sinus rhythm, blood pressure 163 systolic. Objective Vital Signs Temp Pulse Pulse Resp BP Pulse Ox Pulse Ox 08/13/20 08:00 81 81 24 149/67 96 08/13/20 07:05 91 H 142/59 97 96 08/13/20 07:00 98.9 F 86 32 H 151/66 90 08/13/20 06:00 98 H 31 H 165/72 87 08/13/20 05:00 99 H 21 144/64 98 08/13/20 04:00 65 30 H 148/68 97 08/13/20 03:48 97.8 F 08/13/20 03:37 81 147/61 92 08/13/20 03:00 76 28 H 161/58 96 08/13/20 02:00 72 33 H 143/63 86 08/13/20 01:00 88 17 148/63 95 08/13/20 00:00 98.0 F 75 28 H 149/61 97 08/12/20 23:31 79 143/63 98 08/12/20 23:00 80 27 H 134/60 98 08/12/20 22:26 72 25 H 119/56 98 08/12/20 22:00 68 28 H 127/53 88 08/12/20 21:03 72 136/59 08/12/20 21:00 75 24 136/59 99 08/12/20 20:35 97.9 F 08/12/20 20:31 70 08/12/20 20:00 72 24 136/64 97 08/12/20 19:18 65 134/59 99 08/12/20 19:00 76 22 126/56 98 08/12/20 18:00 78 30 H 144/59 86 08/12/20 17:00 82 21 141/58 99 08/12/20 16:00 97.6 F 80 31 H 148/65 98 98 08/12/20 15:24 71 148/64 99 08/12/20 15:00 77 15 142/51 100 08/12/20 14:02 81 133/29 97 08/12/20 14:00 68 29 H 126/61 95 08/12/20 13:00 72 20 137/62 99 08/12/20 12:00 75 30 H 145/69 89 08/12/20 11:52 71 139/61 98 08/12/20 11:42 97.5 F L 08/12/20 11:00 59 L 13 152/78 99 - Physical Examination General: Other (On the vent, via tracheostomy) HEENT: Positive: Normocephaly Neck: Positive: neck supple, Other (tracheostomy in place) Cardiac: Positive: Reg Rate and Rhythm Lungs: Positive: Decreased Breath Sounds Neuro: Positive: Weakness (History of quadriplegia), Other (On the vent, via tracheostomy) Abdomen: Positive: Soft Skin: Positive: Clear Extremities: Absent: edema - Allied health notes Allied health notes reviewed: nursing
[2020-08-13 10:31] LABS: Hematocrit 23.5 % (35.5-45.6); Hemoglobin 7.9 gm/dl (11.8-15.2); Mean Corpuscular HGB Conc 34 % (32-34); Mean Corpuscular Volume 84 fl (84-94); Platelet Count 155 K/mm3 (140-440); Red Blood Count 2.79 M/mm3 (3.65-5.03); Red Cell Distribution Width 18.9 % (13.2-15.2)
[2020-08-13 10:50] LABS: BUN/Creatinine Ratio 51; Blood Urea Nitrogen 51 mg/dL (9-20); Hemolysis Index 3
--- NOTE | 2020-08-13 11:23 | Progress Note ---
Assessment and Plan Cultures: 07/28/2020 blood culture: C albicans 07/28/2020 urine culture: No growth COVID PCR: negative 07/31/2020 blood culture: Coag negative staph in 1 of 4 bottles (contaminant) 08/02/2020 blood culture: No growth 08/06/2020 Resp culture: normal resp hawk 08/06/2020 BAL AFB stain: negative 08/06/2020 BAL fungal culture: stain positive, culture in process. A/P: 69-year-old prison resident with quadriplegia, spinal cord injury, was brought in due to fever and sepsis: #Septic shock: Resolved likely due to candidemia +/-pneumonia. #Candidemia: Unclear source. ?IV line. Transthoracic echo without vegetation. Repeat blood culture no growth. Completed fluconazole course. #Pneumonia: CT chest showed patchy airspace disease suggestive of possible aspiration. Chest x-ray with left lung whiteout, got bronch with suctioning of mucous plug, cultures with normal resp hawk. #UTI with chronic indwelling catheter #Acute hypoxic respiratory failure: On mechanical ventilation. #Transaminitis: Likely sepsis/shock related. Improved. #Sacral decubitus ulcer: Does not appear infected. Continue wound care. Recs: -completed fluconazole -for pneumonia continue IV Ceftriaxone, D5, stop after today's dose Dominga Simmons MD, FACP [facility] ([facility] O: [phone] F: [phone] Subjective Date of service: 08/13/20 Principal diagnosis: Ac. encephalopathy; Ac. hypoxemic resp failure; Septic Shock; PNA; UTI; [place] Interval history: No fever. Remains on the vent. Is now status post tracheostomy. Objective - Exam Narrative Exam: Physical Exam: Constitutional: eyes open, doesnt follow commands, on the vent via trach Head, Ears, Nose: Normocephalic, atraumatic. External ears, nose normal Eyes: Conjunctivae/corneas clear. No icterus. No ptosis. Neck: trach + Cardiovascular: S1, S2 + Respiratory: AE fair bilaterally and equal GI: Soft, bowel sounds +, G tube + Musculoskeletal: pedal edema + Skin: No rash or abscess Hem/Lymphatic: No palpable cervical or supraclavicular nodes. No lymphangitis Psych: no agitation Neurological: eyes open, doesn't follow commands - Constitutional Vitals: Vital Signs Temp Pulse Resp BP Pulse Ox 98.9 F 93 H 24 144/63 96 08/13/20 07:00 08/13/20 09:53 08/13/20 08:00 08/13/20 09:53 08/13/20 08:00 Temperature -Last 24 Hours Temperature 98.9 F Temperature 97.8 F Temperature 98.0 F Temperature 97.9 F Temperature 97.6 F Temperature 97.5 F - Labs CBC & Chem 7: 08/13/20 09:58 08/13/20 09:58 Labs: Abnormal lab results 08/12/20 08/12/20 08/12/20 Range/Units 13:05 17:29 18:28 RBC (3.65-5.03) M/mm3 Hgb (11.8-15.2) gm/dl Hct (35.5-45.6) % RDW (13.2-15.2) % Potassium (3.6-5.0) mmol/L Chloride (98-107) mmol/L BUN (9-20) mg/dL Glucose (75-100) mg/dL POC Glucose 143 H 158 H 158 H (70-105) mg/dL Calcium (8.4-10.2) mg/dL 08/12/20 08/13/20 08/13/20 Range/Units 23:22 05:32 09:58 RBC 2.79 L (3.65-5.03) M/mm3 Hgb 7.9 L (11.8-15.2) gm/dl Hct 23.5 L (35.5-45.6) % RDW 18.9 H (13.2-15.2) % Potassium (3.6-5.0) mmol/L Chloride (98-107) mmol/L BUN (9-20) mg/dL Glucose (75-100) mg/dL POC Glucose 191 H 131 H (70-105) mg/dL Calcium (8.4-10.2) mg/dL 08/13/20 Range/Units 09:58 RBC (3.65-5.03) M/mm3 Hgb (11.8-15.2) gm/dl Hct (35.5-45.6) % RDW (13.2-15.2) % Potassium 3.5 L (3.6-5.0) mmol/L Chloride 109.1 H (98-107) mmol/L BUN 51 H (9-20) mg/dL Glucose 168 H (75-100) mg/dL POC Glucose (70-105) mg/dL Calcium 8.0 L (8.4-10.2) mg/dL
[2020-08-13] MEDS ORDERED: SODIUM CHLORIDE 0.9% 1000 ML 1,000 ML ONE (12:43)
[2020-08-13] MEDS: FLUCONAZOLE 400 MG 200 ML IV SCH (15:08)
--- NOTE | 2020-08-13 17:13 | Vascular Lab Report ---
DUPLEX DOPPLER UPPER EXTREMITY VENOUS, BILATERAL INDICATION / CLINICAL INFORMATION: Swelling. TECHNIQUE: Duplex doppler imaging was performed through the veins of the right and left upper extremi ty using venous compression and other maneuvers. COMPARISON: Right upper extremity venous Doppler 08/03/2020. FINDINGS: RIGHT INTERNAL JUGULAR VEIN: Negative. RIGHT SUBCLAVIAN VEIN: Negative. RIGHT AXILLARY VEIN: Negative. RIGHT BRACHIAL VEIN: Negative. RIGHT FOREARM VEINS: Negative. RIGHT BASILIC VEIN (SUPERFICIAL): Negative. LEFT INTERNAL JUGULAR VEIN: Negative. LEFT SUBCLAVIAN VEIN: Negative. LEFT AXILLARY VEIN: Negative. LEFT BRACHIAL VEIN: Negative. LEFT FOREARM VEINS: Negative. LEFT BASILIC VEIN (SUPERFICIAL): Negative. ADDITIONAL FINDINGS: None. IMPRESSION: 1. No sonographic evidence for DVT in the right or left upper extremity. Scribed by: Lisbeth Barakat RDMS, RVT Scribed: 08/13/2020 1:28 PM I have reviewed the images, agree with this report, and edited this report as needed. Signer Name: Ramon Blanco MD Signed: 08/13/2020 5:09 PM Workstation Name: [id number]
--- NOTE | 2020-08-13 17:56 | Progress Note ---
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 Simple Syrup 15 Ml FEEDTUBE PRN PRN Hypoglycemia Simple Syrup 30 ml 07/29/20 09:55 Simple Syrup 15 Ml FEEDTUBE PRN PRN Hypoglycemia Sodium Bicarbonate 325 mg 07/29/20 09:55 Sodium Bicarbonate 325 Mg Tab FEEDTUBE PRN PRN For Clogged Feeding Tube Sodium Chloride 10 ml 07/28/20 22:00 08/13/20 10:01 Sodium Chloride 0.9% 10 Ml Flush Syringe IV 10 ml BID [place] Administration Sodium Chloride 10 ml 07/28/20 14:27 Sodium Chloride 0.9% 10 Ml Flush Syringe IV PRN PRN LINE FLUSH Zinc Sulfate 220 mg 08/01/20 15:00 08/13/20 09:52 Zinc Sulfate 220 Mg Cap PO 220 mg BID [place] Administration Nutrition/Malnutrition Assess - Dietary Evaluation Nutrition/Malnutrition Findings: Nutrition Notes Start: 07/29/20 0 9:47 Freq: Status: Active Protocol: Document 08/13/20 10:57 (Rec: 08/13/20 10:59 [email or web address]) Nutrition Notes Initial or Follow up Reassessment Current Diagnosis Acute Kidney Injury, Respiratory Failure Other Pertinent Diagnosis Acute encephalopathy, Pneu, UTI, Quadriplegia Current Diet NPO Labs/Tests K 3.5 BUN 51 Pertinent Medications Reviewed Height 6 ft Weight 73.5 kg Jackson Body Weight (kg) 80.90 BMI 21.9 Weight Status Appropriate Subjective/Other Information FU for TF restart. Observed TF running at goal rate and per RN the pt is tolerating it. Percent of energy/protein needs met: 100%/100% Burn Absent Trauma Absent Current % PO Negligible Minimum of two criteria No Fluid Accumulation Moderate to Severe (severe) #2 Nutrition Diagnosis Increased nutrient needs ( specify in comment below) Diagnosis Progress(for reassessment Continues documentation) #1 Nutrition Diagnosis Inadequate oral intake Diagnosis Progress(for reassessment Continues documentation) Is patient on ventilator? Yes Is Patient Ambulatory and/or Out of Bed No REE-(Morrison-St Jeor-confined to bed) [phone] Calculation [facility]ations [facility] Additional Notes Pro needs 1.2-2g/k-163g/ day Fluid needs 1ml/kcal Nutrition Intervention Change Diet Order: Continue Nutrition Support: Continue Vital AF 1.2 at 65ml/ hr with 100 ml water flush q4h . Kcal 1,872 Protein (gm) 117 Fluid (mL) 1,265 Add Supplement/Snack (indicate name/kcal Reji BID /protein ) Provides kCal: 190 Provides Protein (gm) 5 Goal #1 TF tolerance Goal #2 TF to meet at least 80% energy and pro needs Anticipated Discharge Needs: Unable to determine at this time Follow-Up By: 08/17/20 Additional Comments FU for TF tolerance
--- NOTE | 2020-08-13 18:27 | Event Note ---
I called to update Ericotisliborio Richardson [phone] and updated her on her father consition, spoke about CM working on LTACH placement and placement of tracheostomy tube by surgery. She stated that she had no further questions and was thankful for the update.
[2020-08-14] MEDS: INSULIN LISPRO 100 UNIT/ML SUB-Q SCH ×3 (00:40→18:08)
[2020-08-14] MEDS: FREE WATER PO SCH ×6 (02:40→23:00)
[2020-08-14] MEDS: ZINC SULFATE 220 MG CAP PO SCH ×2 (10:56→21:44)
[2020-08-14] MEDS: SENNOSIDES/DOCUSATE SODIUM 8.6/50 MG TAB FEEDTUBE SCH ×2 (10:56→21:44)
[2020-08-14] MEDS: FAMOTIDINE 20 MG TAB PO SCH ×2 (10:56→21:44)
[2020-08-14] MEDS: ASCORBIC ACID 500 MG TAB PO SCH ×2 (10:56→21:44)
[2020-08-14] MEDS: amLODIPine 5 MG TAB PO SCH (10:57)
[2020-08-14] MEDS: ENOXAPARIN 40 MG/0.4 ML INJ SUB-Q SCH (10:57)
[2020-08-14] MEDS: INSULIN GLARGINE 100 UNITS/ML SUB-Q SCH (10:57)
[2020-08-14] MEDS: METOPROLOL TARTRATE 25 MG TAB PO SCH ×2 (10:57→21:45)
--- NOTE | 2020-08-14 11:17 | Electrocardiograph Report ---
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
--- NOTE | 2020-08-14 11:57 | Progress Note ---
Assessment and Plan Cultures: 07/28/2020 blood culture: C albicans 07/28/2020 urine culture: No growth COVID PCR: negative 07/31/2020 blood culture: Coag negative staph in 1 of 4 bottles (contaminant) 08/02/2020 blood culture: No growth 08/06/2020 Resp culture: normal resp hawk 08/06/2020 BAL AFB stain: negative 08/06/2020 BAL fungal culture: stain positive, culture in process. A/P: 69-year-old retirement resident with quadriplegia, spinal cord injury, was brought in due to fever and sepsis: #Septic shock: Resolved likely due to candidemia +/-pneumonia. #Candidemia: Unclear source. ?IV line. Transthoracic echo without vegetation. Repeat blood culture no growth. Completed fluconazole course. #Pneumonia: CT chest showed patchy airspace disease suggestive of possible aspiration. Chest x-ray with left lung whiteout, got bronch with suctioning of mucous plug, cultures with normal resp hawk. #UTI with chronic indwelling catheter #Acute hypoxic respiratory failure: On mechanical ventilation. #Transaminitis: Likely sepsis/shock related. Improved. #Sacral decubitus ulcer: Does not appear infected. Continue wound care. Recs: -completed anti-microbials Dominga Simmons MD, FACP [facility] O: [phone] F: [phone] Subjective Date of service: 08/14/20 Principal diagnosis: Ac. encephalopathy; Ac. hypoxemic resp failure; Septic Shock; PNA; UTI; [place] Interval history: No fever. Remains on the vent via trach. Completed abx. Objective - Exam Narrative Exam: Physical Exam: Constitutional: eyes open, doesnt follow commands, on the vent via trach Head, Ears, Nose: Normocephalic, atraumatic. External ears, nose normal Eyes: Conjunctivae/corneas clear. No icterus. No ptosis. Neck: trach + Cardiovascular: S1, S2 + Respiratory: AE fair bilaterally and equal GI: Soft, bowel sounds +, G tube + Musculoskeletal: pedal edema + Skin: No rash or abscess Hem/Lymphatic: No palpable cervical or supraclavicular nodes. No lymphangitis Psych: no agitation Neurological: eyes open, doesn't follow commands - Constitutional Vitals: Vital Signs Temp Pulse Resp BP Pulse Ox 98.9 F 95 H 29 H 151/62 97 08/14/20 07:54 08/14/20 10:57 08/14/20 06:00 08/14/20 10:57 08/14/20 08:56 Temperature -Last 24 Hours Temperature 98.9 F Temperature 98.2 F Temperature 99 F Temperature 98.4 F Temperature 98.2 F Temperature 98.2 F - Labs CBC & Chem 7: 08/13/20 09:58 08/13/20 09:58 Labs: Abnormal lab results 08/13/20 08/13/20 08/13/20 Range/Units 12:07 12:10 17:17 POC Glucose 142 H 159 H 137 H (70-105) mg/dL 08/13/20 08/14/20 08/14/20 Range/Units 23:17 05:10 11:35 POC Glucose 157 H 153 H 175 H (70-105) mg/dL
[2020-08-14 12:15] LABS: ABG Base Excess 0.6 mmol/L (-2.0-3.0); ABG HCO3 24.5 mmol/L (20.0-26.0); ABG Methemoglobin 0.4 % (0.0-1.5); ABG Oxygen Saturation 96.6 % (95.0-99.0); ABG PCO2 36.2 mm Hg; ABG PH 7.449 pH Units (7.350-7.450); ABG PO2 75.1 mm Hg (80.0-90.0)
[2020-08-14] MEDS ORDERED: HALOPERIDOL LACTATE 5 MG/1 ML INJ ONE (12:25)
[2020-08-14] MEDS ORDERED: LORazepam 2 MG/ML VIAL ONE (12:25)
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
[2020-08-14 13:27] LABS: Hematocrit 22.6 % (35.5-45.6); Hemoglobin 7.7 gm/dl (11.8-15.2); Mean Corpuscular HGB Conc 34 % (32-34); Mean Corpuscular Volume 83 fl (84-94); Platelet Count 176 K/mm3 (140-440); Red Blood Count 2.73 M/mm3 (3.65-5.03); Red Cell Distribution Width 18.4 % (13.2-15.2)
[2020-08-14] MEDS ORDERED: amLODIPine 5 MG TAB PO ONE (13:30)
[2020-08-14 13:46] LABS: BUN/Creatinine Ratio 49; Blood Urea Nitrogen 49 mg/dL (9-20); Calcium 7.9 mg/dL (8.4-10.2); Hemolysis Index 6
--- NOTE | 2020-08-14 14:15 | Progress Note ---
Assessment and Plan Acute possibly on chronic toxic metabolic encephalopathy Acute hypoxemic respiratory failure on MVS Severe sepsis with shock, presumably secondary to aspiration pneumonia Recent upper ext DVT (06/06) Aspiration pneumonia, bilateral Urinary tract infection History of quadriplegia Leukocytosis Anemia that is microcytic Coagulopathy. INR 2.17 at presentation Mild hypokalemia Acute kidney injury Metabolic lactic acidosis Non-ST elevation myocardial infarction Adult failure to thrive Moderate to severe protein calorie malnutrition - get stat CXR and address - increase peep to 10 - repeat CBC in am - change out ashley catheter (chronic indwelling) - LTAC evaluation ongoing - continue care as below otherwise; - prn Levophed for target MAP > 65 mmHg - continue to wean supplemental oxygen for target O2 sat's > 90% acutely - VAP bundle addressed - continue lung protective strategies - continue bronchodilators with routine trach care and pulmonary hygiene per RT - wean per pulmonary driven protocols otherwise - avoid nephrotoxins, renally dose all medications - continue to avoid benzodiazepine's, reduce the possibility of delirium - complete antiinfective's per ID rec's (Diflucan to end tomorrow) - prn analgesia per CPOT score - Maintenance of sleep-wake cycle, avoid delirium - continue enteral nutritional support at goal rate as tolerated - G.I. & VTE prophylaxis - PT/OT/ROM exercises - continue mobility protocols for pressure ulcer prophylaxis - Monitor hemodynamics closely - continue other care per attending / other consultants - discharge planning ongoing concurrently COVID SPECIFIC INTERVENTIONS: - COVID test result negative .... Re-evaluate in am & prn CONDITION: CRITICAL PROGNOSIS: GUARDED CODE STATUS: FULL CODE The high probability of a clinically significant, sudden or life-threatening deterioration of the [respiratory, cardiovascular & neurologic] system(s) re quired my full and direct attention, intervention and personal management. The aggregate critical care time was [33] minutes without overlap. Time includes spent on; [x] Data Review and interpretation [x] Patient assessment and monitoring of vital signs [x] Documentation [x] Medication orders and management Subjective Date of service: 08/14/20 Principal diagnosis: Ac. encephalopathy; Ac. hypoxemic resp failure; Septic Shock; PNA; UTI; JEFFERSON Interval history: Patient is seen today for: Acute encephalopathy; Acute hypoxemic respiratory failure; Septic Shock; Aspiration pneumonia; UTI; quadriplegia; JEFFERSON Seen and examined at bedside; 24hour events reviewed; nursing and respiratory care staff consulted; no adverse overnight events reported to me; resting in bed; FiO2 at 70% and weaning slowly; no emesis or overt aspiration; no bloody tracheal secretions and not hypotensive Objective Vital Signs - 12hr 08/14/20 08/14/20 08/14/20 03:00 03:13 03:47 Temperature 98.2 F Pulse Rate 91 H 87 Pulse Rate [ From Monitor] Respiratory 29 H Rate Blood Pressure 177/51 154/63 O2 Sat by Pulse 99 97 Oximetry O2 Sat by Pulse Oximetry [ Assessment] 08/14/20 08/14/20 08/14/20 03:55 04:00 05:00 Temperature Pulse Rate 88 101 H Pulse Rate [ 86 From Monitor] Respiratory 31 H 30 H Rate Blood Pressure 177/51 177/51 O2 Sat by Pulse 96 97 Oximetry O2 Sat by Pulse 97 Oximetry [ Assessment] 08/14/20 08/14/20 08/14/20 06:00 07:54 08:53 Temperature 98.9 F Pulse Rate 87 96 H Pulse Rate [ From Monitor] Respiratory 29 H Rate Blood Pressure 177/51 173/71 O2 Sat by Pulse 96 99 Oximetry O2 Sat by Pulse Oximetry [ Assessment] 08/14/20 08/14/20 08/14/20 08:56 10:57 12:00 Temperature 99 F Pulse Rate 92 H 95 H Pulse Rate [ From Monitor] Respiratory Rate Blood Pressure 156/63 151/62 O2 Sat by Pulse 97 Oximetry O2 Sat by Pulse Oximetry [ Assessment] 08/14/20 12:13 Temperature Pulse Rate 99 H Pulse Rate [ From Monitor] Respiratory Rate Blood Pressure 162/66 O2 Sat by Pulse 94 Oximetry O2 Sat by Pulse Oximetry [ Assessment] Constitutional: appears uncomfortable, other ( chronically ill looking male with mildly increased respiratory effort at rest on MVS) Eyes: non-icteric ENT: oropharynx moist, other (ETT 24 cm KEVIN) Neck: supple, no lymphadenopathy, no JVD Effort: mildly labored Ascultation: Bilateral: diminished breath sounds, rhonchi Percussion: Bilateral: not dull Cardiovascular: regular rate and rhythm, other (S1,S2) Gastrointestinal: normoactive bowel sounds, soft, non-tender, non-distended, other (no patricio cullens sign) Integumentary: rash, decubitus ulcer (sacral (POA)) Extremities: no cyanosis, pulses normal, edema (lower extremities and bilatral upper extremity) Neurologic: pupils equal and round, unable to assess, other (quadriplegic) Psychiatric: other (delirious) CBC and BMP: 08/14/20 13:01 08/14/20 13:01 ABG, PT/INR, D-dimer: ABG ABG pH 7.449 pH Units (7.350-7.450) 08/14/20 12:05 POC ABG pCO2 46.9 mmHg (32.0-48.0) 08/11/20 22:13 ABG pCO2 36.2 mm Hg 08/14/20 12:05 POC ABG pO2 163.6 mmHg (83-108) H 08/11/20 22:13 ABG pO2 75.1 mm Hg (80.0-90.0) L 08/14/20 12:05 POC ABG HCO3 25.5 08/11/20 22:13 ABG O2 Saturation 96.6 % (95.0-99.0) 08/14/20 12:05 PT/INR, D-dimer PT 15.7 Sec. (12.2-14.9) H 08/11/20 18:40 INR 1.19 (0.87-1.13) H 08/11/20 18:40 Abnormal lab findings: Abnormal Labs 07/28/20 07/28/20 07/28/20 08:48 08:48 08:48 WBC 17.0 H RBC 2.77 L Hgb 8.2 L Hct 26.5 L MCV 96 H MCH MCHC 31 L RDW 16.2 H Plt Count Seg Neuts % (Manual) Lymphocytes % (Manual) Seg Neutrophils # Man Lymphocytes # (Manual) PT 24.7 H INR 2.17 H ABG pH POC ABG pCO2 POC ABG pO2 ABG pO2 ABG O2 Saturation ABG Hemoglobin ABG Oxyhemoglobin ABG Sodium ABG Potassium ABG Chloride ABG Glucose Oxyhemoglobin Carboxyhemoglobin Sodium 135 L Potassium 3.5 L Chloride 97.6 L Carbon Dioxide BUN 44 H Creatinine 1.6 H Glucose 431 H POC Glucose Hemoglobin A1c Lactic Acid Calcium 7.9 L Ionized Calcium Phosphorus AST 81 H ALT Alkaline Phosphatase Ammonia Lactate Dehydrogenase Total Creatine Kinase 486 H Troponin T 0.115 H* C-Reactive Protein Total Protein 5.6 L Albumin 2.6 L Triglycerides LDL Cholesterol Direct 44 L HDL Cholesterol 26 L Arterial Blood Glucose Arterial Blood Ionized Calcium Urine WBC (Auto) Salicylates Crossmatch 07/28/20 07/28/20 07/28/20 08:48 09:44 09:44 WBC RBC Hgb Hct MCV MCH MCHC RDW Plt Count Seg Neuts % (Manual) Lymphocytes % (Manual) Seg Neutrophils # Man Lymphocytes # (Manual) PT INR ABG pH POC ABG pCO2 POC ABG pO2 ABG pO2 ABG O2 Saturation ABG Hemoglobin ABG Oxyhemoglobin ABG Sodium ABG Potassium ABG Chloride ABG Glucose Oxyhemoglobin Carboxyhemoglobin Sodium Potassium Chloride Carbon Dioxide BUN Creatinine Glucose POC Glucose Hemoglobin A1c Lactic Acid 3.80 H* Calcium Ionized Calcium Phosphorus AST ALT Alkaline Phosphatase Ammonia 63.0 H Lactate Dehydrogenase Total Creatine Kinase Troponin T C-Reactive Protein Total Protein Albumin Triglycerides LDL Cholesterol Direct HDL Cholesterol Arterial Blood Glucose Arterial Blood Ionized Calcium Urine WBC (Auto) Salicylates < 0.3 L Crossmatch 07/28/20 07/28/20 07/28/20 10:18 14:38 15:58 WBC RBC Hgb Hct MCV MCH MCHC RDW Plt Count Seg Neuts % (Manual) Lymphocytes % (Manual) Seg Neutrophils # Man Lymphocytes # (Manual) PT INR ABG pH POC ABG pCO2 POC ABG pO2 ABG pO2 78.0 L ABG O2 Saturation ABG Hemoglobin 7.6 L ABG Oxyhemoglobin ABG Sodium ABG Potassium ABG Chloride ABG Glucose Oxyhemoglobin Carboxyhemoglobin Sodium Potassium Chloride Carbon Dioxide BUN Creatinine Glucose POC Glucose 265 H Hemoglobin A1c Lactic Acid 3.90 H* Calcium Ionized Calcium Phosphorus AST ALT Alkaline Phosphatase Ammonia Lactate Dehydrogenase Total Creatine Kinase Troponin T C-Reactive Protein Total Protein Albumin Triglycerides LDL Cholesterol Direct HDL Cholesterol Arterial Blood Glucose Arterial Blood Ionized Calcium Urine WBC (Auto) Salicylates Crossmatch 07/28/20 07/28/20 07/28/20 19:50 21:00 Unknown WBC RBC Hgb Hct MCV MCH MCHC RDW Plt Count Seg Neuts % (Manual) Lymphocytes % (Manual) Seg Neutrophils # Man Lymphocytes # (Manual) PT INR ABG pH 7.107 L POC ABG pCO2 65.6 H POC ABG pO2 ABG pO2 ABG O2 Saturation ABG Hemoglobin 9.9 L ABG Oxyhemoglobin ABG Sodium ABG Potassium ABG Chloride 108.0 H ABG Glucose 299 H Oxyhemoglobin Carboxyhemoglobin 0.2 L Sodium Potassium Chloride Carbon Dioxide BUN Creatinine Glucose POC Glucose Hemoglobin A1c Lactic Acid Calcium Ionized Calcium Phosphorus 5.40 H AST ALT Alkaline Phosphatase Ammonia Lactate Dehydrogenase Total Creatine Kinase Troponin T C-Reactive Protein 9.00 H Total Protein Albumin Triglycerides LDL Cholesterol Direct HDL Cholesterol Arterial Blood Glucose 299 H Arterial Blood Ionized Calcium 4.2 L Urine WBC (Auto) > 182.0 H Salicylates Crossmatch 07/29/20 07/29/20 07/29/20 04:02 13:00 17:13 WBC RBC Hgb Hct MCV MCH MCHC RDW Plt Count Seg Neuts % (Manual) Lymphocytes % (Manual) Seg Neutrophils # Man Lymphocytes # (Manual) PT INR ABG pH 7.212 L POC ABG pCO2 52.5 H POC ABG pO2 128.3 H ABG pO2 ABG O2 Saturation ABG Hemoglobin 10.5 L ABG Oxyhemoglobin ABG Sodium ABG Potassium ABG Chloride 108.0 H ABG Glucose 239 H Oxyhemoglobin Carboxyhemoglobin Sodium Potassium Chloride Carbon Dioxide BUN Creatinine Glucose POC Glucose 212 H 257 H Hemoglobin A1c Lactic Acid Calcium Ionized Calcium Phosphorus AST ALT Alkaline Phosphatase Ammonia Lactate Dehydrogenase Total Creatine Kinase Troponin T C-Reactive Protein Total Protein Albumin Triglycerides LDL Cholesterol Direct HDL Cholesterol Arterial Blood Glucose 239 H Arterial Blood Ionized Calcium 4.0 L Urine WBC (Auto) Salicylates Crossmatch 07/29/20 07/29/20 07/29/20 21:00 23:20 Unknown WBC RBC 3.05 L Hgb 9.7 L Hct 28.6 L MCV MCH MCHC RDW 16.1 H Plt Count Seg Neuts % (Manual) 75.0 H Lymphocytes % (Manual) 2.0 L Seg Neutrophils # Man Lymphocytes # (Manual) 0.2 L PT INR ABG pH 7.286 L POC ABG pCO2 POC ABG pO2 ABG pO2 ABG O2 Saturation ABG Hemoglobin 9.1 L ABG Oxyhemoglobin ABG Sodium ABG Potassium ABG Chloride 109.0 H ABG Glucose 285 H Oxyhemoglobin Carboxyhemoglobin Sodium Potassium Chloride Carbon Dioxide BUN Creatinine Glucose POC Glucose 233 H Hemoglobin A1c Lactic Acid Calcium Ionized Calcium Phosphorus AST ALT Alkaline Phosphatase Ammonia Lactate Dehydrogenase Total Creatine Kinase Troponin T C-Reactive Protein Total Protein Albumin Triglycerides LDL Cholesterol Direct HDL Cholesterol Arterial Blood Glucose 285 H Arterial Blood Ionized Calcium 3.9 L Urine WBC (Auto) Salicylates Crossmatch 07/29/20 07/29/20 07/30/20 Unknown Unknown 05:30 WBC RBC Hgb Hct MCV MCH MCHC RDW Plt Count Seg Neuts % (Manual) Lymphocytes % (Manual) Seg Neutrophils # Man Lymphocytes # (Manual) PT INR ABG pH POC ABG pCO2 POC ABG pO2 ABG pO2 ABG O2 Saturation ABG Hemoglobin ABG Oxyhemoglobin ABG Sodium ABG Potassium ABG Chloride ABG Glucose Oxyhemoglobin Carboxyhemoglobin Sodium Potassium Chloride 108.4 H Carbon Dioxide 21 L BUN 41 H Creatinine Glucose 217 H POC Glucose 245 H Hemoglobin A1c Lactic Acid 2.70 H* Calcium 6.5 L D Ionized Calcium Phosphorus AST 104 H ALT 74 H Alkaline Phosphatase Ammonia Lactate Dehydrogenase Total Creatine Kinase Troponin T C-Reactive Protein Total Protein 5.1 L Albumin 2.4 L Triglycerides LDL Cholesterol Direct HDL Cholesterol Arterial Blood Glucose Arterial Blood Ionized Calcium Urine WBC (Auto) Salicylates Crossmatch 07/30/20 07/30/20 07/30/20 05:45 05:45 12:12 WBC RBC 2.50 L Hgb 7.8 L Hct 23.3 L MCV MCH MCHC RDW 16.4 H Plt Count Seg Neuts % (Manual) Lymphocytes % (Manual) Seg Neutrophils # Man Lymphocytes # (Manual) PT INR ABG pH POC ABG pCO2 POC ABG pO2 ABG pO2 ABG O2 Saturation ABG Hemoglobin ABG Oxyhemoglobin ABG Sodium ABG Potassium ABG Chloride ABG Glucose Oxyhemoglobin Carboxyhemoglobin Sodium Potassium Chloride 108.4 H Carbon Dioxide 21 L BUN 44 H Creatinine 1.4 H Glucose 279 H POC Glucose 243 H Hemoglobin A1c Lactic Acid Calcium 6.7 L Ionized Calcium Phosphorus AST 51 H ALT Alkaline Phosphatase Ammonia Lactate Dehydrogenase Total Creatine Kinase Troponin T C-Reactive Protein Total Protein 5.5 L Albumin 2.3 L Triglycerides LDL Cholesterol Direct HDL Cholesterol Arterial Blood Glucose Arterial Blood Ionized Calcium Urine WBC (Auto) Salicylates Crossmatch 07/30/20 07/30/20 07/30/20 15:50 17:20 19:01 WBC RBC Hgb Hct MCV MCH MCHC RDW Plt Count Seg Neuts % (Manual) Lymphocytes % (Manual) Seg Neutrophils # Man Lymphocytes # (Manual) PT INR ABG pH POC ABG pCO2 POC ABG pO2 147.2 H ABG pO2 ABG O2 Saturation ABG Hemoglobin 7.2 L ABG Oxyhemoglobin ABG Sodium ABG Potassium 3.3 L ABG Chloride 115.0 H ABG Glucose 269 H Oxyhemoglobin Carboxyhemoglobin 1.6 H Sodium Potassium Chloride Carbon Dioxide BUN Creatinine Glucose POC Glucose 260 H Hemoglobin A1c Lactic Acid Calcium Ionized Calcium 4.2 L Phosphorus AST ALT Alkaline Phosphatase Ammonia Lactate Dehydrogenase Total Creatine Kinase Troponin T C-Reactive Protein Total Protein Albumin Triglycerides LDL Cholesterol Direct HDL Cholesterol Arterial Blood Glucose 269 H Arterial Blood Ionized Calcium 3.5 L Urine WBC (Auto) Salicylates Crossmatch 07/30/20 07/31/20 07/31/20 23:16 04:04 04:47 WBC RBC Hgb Hct MCV MCH MCHC RDW Plt Count Seg Neuts % (Manual) Lymphocytes % (Manual) Seg Neutrophils # Man Lymphocytes # (Manual) PT INR ABG pH POC ABG pCO2 POC ABG pO2 ABG pO2 ABG O2 Saturation ABG Hemoglobin 7.6 L ABG Oxyhemoglobin ABG Sodium ABG Potassium 3.3 L ABG Chloride 113.0 H ABG Glucose 348 H Oxyhemoglobin Carboxyhemoglobin 0.4 L Sodium Potassium Chloride Carbon Dioxide BUN Creatinine Glucose POC Glucose 298 H 297 H Hemoglobin A1c Lactic Acid Calcium Ionized Calcium Phosphorus AST ALT Alkaline Phosphatase Ammonia Lactate Dehydrogenase Total Creatine Kinase Troponin T C-Reactive Protein Total Protein Albumin Triglycerides LDL Cholesterol Direct HDL Cholesterol Arterial Blood Glucose 348 H Arterial Blood Ionized Calcium 4.1 L Urine WBC (Auto) Salicylates Crossmatch 07/31/20 07/31/20 07/31/20 07:26 07:26 11:54 WBC RBC 2.29 L Hgb 7.2 L Hct 21.5 L MCV MCH MCHC RDW 16.7 H Plt Count Seg Neuts % (Manual) Lymphocytes % (Manual) Seg Neutrophils # Man Lymphocytes # (Manual) PT INR ABG pH POC ABG pCO2 POC ABG pO2 ABG pO2 ABG O2 Saturation ABG Hemoglobin ABG Oxyhemoglobin ABG Sodium ABG Potassium ABG Chloride ABG Glucose Oxyhemoglobin Carboxyhemoglobin Sodium Potassium 3.4 L Chloride 109.4 H Carbon Dioxide BUN 45 H Creatinine 1.4 H Glucose 304 H POC Glucose 302 H Hemoglobin A1c Lactic Acid Calcium 6.9 L Ionized Calcium Phosphorus AST ALT Alkaline Phosphatase Ammonia Lactate Dehydrogenase Total Creatine Kinase Troponin T C-Reactive Protein Total Protein Albumin Triglycerides LDL Cholesterol Direct HDL Cholesterol Arterial Blood Glucose Arterial Blood Ionized Calcium Urine WBC (Auto) Salicylates Crossmatch 07/31/20 08/01/20 08/01/20 21:27 03:09 04:30 WBC RBC 2.29 L Hgb 7.0 L Hct 20.7 L MCV MCH MCHC RDW 16.2 H Plt Count 125 L Seg Neuts % (Manual) Lymphocytes % (Manual) Seg Neutrophils # Man Lymphocytes # (Manual) PT INR ABG pH POC ABG pCO2 POC ABG pO2 ABG pO2 ABG O2 Saturation ABG Hemoglobin 7.4 L ABG Oxyhemoglobin ABG Sodium 146.9 H ABG Potassium 3.2 L ABG Chloride 116.0 H ABG Glucose 113 H Oxyhemoglobin Carboxyhemoglobin Sodium Potassium Chloride Carbon Dioxide BUN Creatinine Glucose POC Glucose 138 H Hemoglobin A1c Lactic Acid Calcium Ionized Calcium Phosphorus AST ALT Alkaline Phosphatase Ammonia Lactate Dehydrogenase Total Creatine Kinase Troponin T C-Reactive Protein Total Protein Albumin Triglycerides LDL Cholesterol Direct HDL Cholesterol Arterial Blood Glucose 113 H Arterial Blood Ionized Calcium 4.5 L Urine WBC (Auto) Salicylates Crossmatch 08/01/20 08/01/20 08/01/20 04:30 04:30 08:40 WBC RBC Hgb Hct MCV MCH MCHC RDW Plt Count Seg Neuts % (Manual) Lymphocytes % (Manual) Seg Neutrophils # Man Lymphocytes # (Manual) PT INR ABG pH POC ABG pCO2 POC ABG pO2 ABG pO2 ABG O2 Saturation ABG Hemoglobin ABG Oxyhemoglobin ABG Sodium ABG Potassium ABG Chloride ABG Glucose Oxyhemoglobin Carboxyhemoglobin Sodium 148 H Potassium 3.4 L Chloride 114.3 H Carbon Dioxide BUN 43 H Creatinine Glucose 109 H POC Glucose Hemoglobin A1c 8.8 H Lactic Acid Calcium 8.1 L D Ionized Calcium Phosphorus AST ALT Alkaline Phosphatase Ammonia Lactate Dehydrogenase Total Creatine Kinase Troponin T C-Reactive Protein Total Protein Albumin Triglycerides LDL Cholesterol Direct HDL Cholesterol Arterial Blood Glucose Arterial Blood Ionized Calcium Urine WBC (Auto) Salicylates Crossmatch See Detail 08/01/20 08/01/20 08/01/20 08:40 17:03 23:35 WBC RBC Hgb Hct MCV MCH MCHC RDW Plt Count Seg Neuts % (Manual) Lymphocytes % (Manual) Seg Neutrophils # Man Lymphocytes # (Manual) PT INR ABG pH POC ABG pCO2 POC ABG pO2 ABG pO2 ABG O2 Saturation ABG Hemoglobin ABG Oxyhemoglobin ABG Sodium ABG Potassium ABG Chloride ABG Glucose Oxyhemoglobin Carboxyhemoglobin Sodium Potassium Chloride Carbon Dioxide BUN Creatinine Glucose POC Glucose 129 H 172 H Hemoglobin A1c Lactic Acid Calcium Ionized Calcium Phosphorus 1.70 L AST ALT Alkaline Phosphatase Ammonia Lactate Dehydrogenase Total Creatine Kinase Troponin T C-Reactive Protein Total Protein Albumin Triglycerides LDL Cholesterol Direct HDL Cholesterol Arterial Blood Glucose Arterial Blood Ionized Calcium Urine WBC (Auto) Salicylates Crossmatch 08/02/20 08/02/20 08/02/20 03:50 05:46 10:54 WBC RBC Hgb Hct MCV MCH MCHC RDW Plt Count Seg Neuts % (Manual) Lymphocytes % (Manual) Seg Neutrophils # Man Lymphocytes # (Manual) PT INR ABG pH 7.333 L POC ABG pCO2 POC ABG pO2 ABG pO2 91.5 H ABG O2 Saturation ABG Hemoglobin 7.9 L ABG Oxyhemoglobin ABG Sodium ABG Potassium ABG Chloride ABG Glucose Oxyhemoglobin Carboxyhemoglobin Sodium Potassium Chloride Carbon Dioxide BUN Creatinine Glucose POC Glucose 161 H 228 H Hemoglobin A1c Lactic Acid Calcium Ionized Calcium Phosphorus AST ALT Alkaline Phosphatase Ammonia Lactate Dehydrogenase Total Creatine Kinase Troponin T C-Reactive Protein Total Protein Albumin Triglycerides LDL Cholesterol Direct HDL Cholesterol Arterial Blood Glucose Arterial Blood Ionized Calcium Urine WBC (Auto) Salicylates Crossmatch 08/02/20 08/02/20 08/02/20 17:20 23:13 Unknown WBC RBC 2.66 L Hgb 8.1 L Hct 23.9 L MCV MCH MCHC RDW 16.8 H Plt Count 110 L Seg Neuts % (Manual) Lymphocytes % (Manual) Seg Neutrophils # Man Lymphocytes # (Manual) PT INR ABG pH POC ABG pCO2 POC ABG pO2 ABG pO2 ABG O2 Saturation ABG Hemoglobin ABG Oxyhemoglobin ABG Sodium ABG Potassium ABG Chloride ABG Glucose Oxyhemoglobin Carboxyhemoglobin Sodium Potassium Chloride Carbon Dioxide BUN Creatinine Glucose POC Glucose 214 H 132 H Hemoglobin A1c Lactic Acid Calcium Ionized Calcium Phosphorus AST ALT Alkaline Phosphatase Ammonia Lactate Dehydrogenase Total Creatine Kinase Troponin T C-Reactive Protein Total Protein Albumin Triglycerides LDL Cholesterol Direct HDL Cholesterol Arterial Blood Glucose Arterial Blood Ionized Calcium Urine WBC (Auto) Salicylates Crossmatch 08/02/20 08/02/20 08/03/20 Unknown Unknown 02:59 WBC RBC Hgb Hct MCV MCH MCHC RDW Plt Count Seg Neuts % (Manual) Lymphocytes % (Manual) Seg Neutrophils # Man Lymphocytes # (Manual) PT INR ABG pH POC ABG pCO2 POC ABG pO2 ABG pO2 ABG O2 Saturation ABG Hemoglobin 8.1 L ABG Oxyhemoglobin ABG Sodium ABG Potassium ABG Chloride 113.0 H ABG Glucose 143 H Oxyhemoglobin Carboxyhemoglobin Sodium 150 H Potassium 3.5 L Chloride 115.9 H Carbon Dioxide BUN 42 H Creatinine Glucose 188 H POC Glucose Hemoglobin A1c Lactic Acid Calcium 7.8 L Ionized Calcium Phosphorus 2.30 L D AST ALT Alkaline Phosphatase Ammonia Lactate Dehydrogenase Total Creatine Kinase Troponin T C-Reactive Protein Total Protein Albumin Triglycerides LDL Cholesterol Direct HDL Cholesterol Arterial Blood Glucose 143 H Arterial Blood Ionized Calcium Urine WBC (Auto) Salicylates Crossmatch 08/03/20 08/03/20 08/03/20 04:16 04:16 05:12 WBC RBC 2.62 L Hgb 8.1 L Hct 24.1 L MCV MCH MCHC RDW 17.4 H Plt Count 118 L Seg Neuts % (Manual) Lymphocytes % (Manual) Seg Neutrophils # Man Lymphocytes # (Manual) PT INR ABG pH POC ABG pCO2 POC ABG pO2 ABG pO2 ABG O2 Saturation ABG Hemoglobin ABG Oxyhemoglobin ABG Sodium ABG Potassium ABG Chloride ABG Glucose Oxyhemoglobin Carboxyhemoglobin Sodium 148 H Potassium Chloride 114.5 H Carbon Dioxide BUN 47 H Creatinine Glucose 158 H POC Glucose 164 H Hemoglobin A1c Lactic Acid Calcium 8.1 L Ionized Calcium Phosphorus 2.30 L AST ALT Alkaline Phosphatase Ammonia Lactate Dehydrogenase Total Creatine Kinase Troponin T C-Reactive Protein Total Protein Albumin Triglycerides LDL Cholesterol Direct HDL Cholesterol Arterial Blood Glucose Arterial Blood Ionized Calcium Urine WBC (Auto) Salicylates Crossmatch 08/03/20 08/03/20 08/03/20 11:26 17:33 23:47 WBC RBC Hgb Hct MCV MCH MCHC RDW Plt Count Seg Neuts % (Manual) Lymphocytes % (Manual) Seg Neutrophils # Man Lymphocytes # (Manual) PT INR ABG pH POC ABG pCO2 POC ABG pO2 ABG pO2 ABG O2 Saturation ABG Hemoglobin ABG Oxyhemoglobin ABG Sodium ABG Potassium ABG Chloride ABG Glucose Oxyhemoglobin Carboxyhemoglobin Sodium Potassium Chloride Carbon Dioxide BUN Creatinine Glucose POC Glucose 190 H 235 H 194 H Hemoglobin A1c Lactic Acid Calcium Ionized Calcium Phosphorus AST ALT Alkaline Phosphatase Ammonia Lactate Dehydrogenase Total Creatine Kinase Troponin T C-Reactive Protein Total Protein Albumin Triglycerides LDL Cholesterol Direct HDL Cholesterol Arterial Blood Glucose Arterial Blood Ionized Calcium Urine WBC (Auto) Salicylates Crossmatch 08/04/20 08/04/20 08/04/20 03:00 03:00 04:14 WBC RBC Hgb Hct MCV MCH MCHC RDW Plt Count Seg Neuts % (Manual) Lymphocytes % (Manual) Seg Neutrophils # Man Lymphocytes # (Manual) PT INR ABG pH POC ABG pCO2 POC ABG pO2 79.5 L ABG pO2 ABG O2 Saturation ABG Hemoglobin 9.9 L ABG Oxyhemoglobin ABG Sodium ABG Potassium ABG Chloride 113.0 H ABG Glucose 227 H Oxyhemoglobin Carboxyhemoglobin 0.3 L Sodium Potassium Chloride 111.4 H Carbon Dioxide BUN 51 H Creatinine Glucose 218 H POC Glucose Hemoglobin A1c Lactic Acid Calcium Ionized Calcium Phosphorus AST ALT Alkaline Phosphatase Ammonia Lactate Dehydrogenase Total Creatine Kinase Troponin T C-Reactive Protein Total Protein Albumin Triglycerides 184 H LDL Cholesterol Direct HDL Cholesterol Arterial Blood Glucose 227 H Arterial Blood Ionized Calcium Urine WBC (Auto) Salicylates Crossmatch 08/04/20 08/04/20 08/04/20 05:17 11:52 11:53 WBC RBC Hgb Hct MCV MCH MCHC RDW Plt Count Seg Neuts % (Manual) Lymphocytes % (Manual) Seg Neutrophils # Man Lymphocytes # (Manual) PT INR ABG pH POC ABG pCO2 POC ABG pO2 ABG pO2 ABG O2 Saturation ABG Hemoglobin ABG Oxyhemoglobin ABG Sodium ABG Potassium ABG Chloride ABG Glucose Oxyhemoglobin Carboxyhemoglobin Sodium Potassium Chloride Carbon Dioxide BUN Creatinine Glucose POC Glucose 224 H 253 H 237 H Hemoglobin A1c Lactic Acid Calcium Ionized Calcium Phosphorus AST ALT Alkaline Phosphatase Ammonia Lactate Dehydrogenase Total Creatine Kinase Troponin T C-Reactive Protein Total Protein Albumin Triglycerides LDL Cholesterol Direct HDL Cholesterol Arterial Blood Glucose Arterial Blood Ionized Calcium Urine WBC (Auto) Salicylates Crossmatch 08/04/20 08/04/20 08/04/20 15:35 16:25 17:45 WBC 21.5 H RBC 2.10 L Hgb 7.3 L Hct 22.0 L MCV MCH 33 H MCHC 37 H RDW 17.2 H Plt Count 133 L Seg Neuts % (Manual) Lymphocytes % (Manual) Seg Neutrophils # Man Lymphocytes # (Manual) PT INR ABG pH POC ABG pCO2 POC ABG pO2 ABG pO2 ABG O2 Saturation ABG Hemoglobin ABG Oxyhemoglobin ABG Sodium ABG Potassium ABG Chloride ABG Glucose Oxyhemoglobin Carboxyhemoglobin Sodium Potassium Chloride Carbon Dioxide BUN Creatinine Glucose POC Glucose 230 H 218 H Hemoglobin A1c Lactic Acid Calcium Ionized Calcium Phosphorus AST ALT Alkaline Phosphatase Ammonia Lactate Dehydrogenase Total Creatine Kinase Troponin T C-Reactive Protein Total Protein Albumin Triglycerides LDL Cholesterol Direct HDL Cholesterol Arterial Blood Glucose Arterial Blood Ionized Calcium Urine WBC (Auto) Salicylates Crossmatch 08/04/20 08/05/20 08/05/20 23:11 03:28 05:25 WBC RBC Hgb Hct MCV MCH MCHC RDW Plt Count Seg Neuts % (Manual) Lymphocytes % (Manual) Seg Neutrophils # Man Lymphocytes # (Manual) PT INR ABG pH POC ABG pCO2 POC ABG pO2 82.1 L ABG pO2 ABG O2 Saturation ABG Hemoglobin 8.6 L ABG Oxyhemoglobin 93.7 L ABG Sodium ABG Potassium ABG Chloride 113.0 H ABG Glucose 205 H Oxyhemoglobin Carboxyhemoglobin Sodium Potassium Chloride Carbon Dioxide BUN Creatinine Glucose POC Glucose 198 H 213 H Hemoglobin A1c Lactic Acid Calcium Ionized Calcium Phosphorus AST ALT Alkaline Phosphatase Ammonia Lactate Dehydrogenase Total Creatine Kinase Troponin T C-Reactive Protein Total Protein Albumin Triglycerides LDL Cholesterol Direct HDL Cholesterol Arterial Blood Glucose 205 H Arterial Blood Ionized Calcium Urine WBC (Auto) Salicylates Crossmatch 08/05/20 08/05/20 08/05/20 08:48 08:48 10:55 WBC 14.3 H RBC 2.76 L Hgb 8.1 L Hct 24.8 L MCV MCH MCHC RDW 17.4 H Plt Count 138 L Seg Neuts % (Manual) 97.0 H Lymphocytes % (Manual) 1.0 L Seg Neutrophils # Man 13.9 H Lymphocytes # (Manual) 0.1 L PT INR ABG pH POC ABG pCO2 POC ABG pO2 158.7 H ABG pO2 ABG O2 Saturation ABG Hemoglobin 7.8 L ABG Oxyhemoglobin ABG Sodium ABG Potassium ABG Chloride 114.0 H ABG Glucose 242 H Oxyhemoglobin Carboxyhemoglobin Sodium 146 H Potassium Chloride 110.1 H Carbon Dioxide BUN 56 H Creatinine Glucose 219 H POC Glucose Hemoglobin A1c Lactic Acid Calcium Ionized Calcium Phosphorus AST ALT Alkaline Phosphatase 192 H Ammonia Lactate Dehydrogenase Total Creatine Kinase Troponin T C-Reactive Protein Total Protein 5.8 L Albumin 2.0 L Triglycerides LDL Cholesterol Direct HDL Cholesterol Arterial Blood Glucose 242 H Arterial Blood Ionized Calcium Urine WBC (Auto) Salicylates Crossmatch 08/05/20 08/05/20 08/05/20 11:12 11:30 17:08 WBC RBC Hgb Hct MCV MCH MCHC RDW Plt Count Seg Neuts % (Manual) Lymphocytes % (Manual) Seg Neutrophils # Man Lymphocytes # (Manual) PT INR ABG pH POC ABG pCO2 POC ABG pO2 147.5 H ABG pO2 ABG O2 Saturation ABG Hemoglobin 7.5 L ABG Oxyhemoglobin 98.1 H ABG Sodium ABG Potassium ABG Chloride 113.0 H ABG Glucose 248 H Oxyhemoglobin Carboxyhemoglobin Sodium Potassium Chloride Carbon Dioxide BUN Creatinine Glucose POC Glucose 238 H 239 H Hemoglobin A1c Lactic Acid Calcium Ionized Calcium Phosphorus AST ALT Alkaline Phosphatase Ammonia Lactate Dehydrogenase Total Creatine Kinase Troponin T C-Reactive Protein Total Protein Albumin Triglycerides LDL Cholesterol Direct HDL Cholesterol Arterial Blood Glucose 248 H Arterial Blood Ionized Calcium Urine WBC (Auto) Salicylates Crossmatch 08/05/20 08/05/20 08/06/20 23:17 Unknown 05:12 WBC RBC Hgb Hct MCV MCH MCHC RDW Plt Count Seg Neuts % (Manual) Lymphocytes % (Manual) Seg Neutrophils # Man Lymphocytes # (Manual) PT INR ABG pH POC ABG pCO2 POC ABG pO2 ABG pO2 ABG O2 Saturation ABG Hemoglobin ABG Oxyhemoglobin ABG Sodium ABG Potassium ABG Chloride ABG Glucose Oxyhemoglobin Carboxyhemoglobin Sodium Potassium Chloride 109.2 H Carbon Dioxide BUN 51 H Creatinine Glucose 229 H POC Glucose 200 H 145 H Hemoglobin A1c Lactic Acid Calcium Ionized Calcium Phosphorus AST ALT Alkaline Phosphatase Ammonia Lactate Dehydrogenase Total Creatine Kinase Troponin T C-Reactive Protein Total Protein Albumin Triglycerides LDL Cholesterol Direct HDL Cholesterol Arterial Blood Glucose Arterial Blood Ionized Calcium Urine WBC (Auto) Salicylates Crossmatch 08/06/20 08/06/20 08/06/20 05:21 10:00 11:28 WBC RBC Hgb Hct MCV MCH MCHC RDW Plt Count Seg Neuts % (Manual) Lymphocytes % (Manual) Seg Neutrophils # Man Lymphocytes # (Manual) PT INR ABG pH 7.301 L 7.308 L POC ABG pCO2 49.5 H 49.1 H POC ABG pO2 178.4 H ABG pO2 ABG O2 Saturation ABG Hemoglobin 7.5 L 7.1 L ABG Oxyhemoglobin 98.8 H ABG Sodium ABG Potassium ABG Chloride 112.0 H 112.0 H ABG Glucose 149 H 162 H Oxyhemoglobin Carboxyhemoglobin Sodium Potassium Chloride Carbon Dioxide BUN Creatinine Glucose POC Glucose 158 H Hemoglobin A1c Lactic Acid Calcium Ionized Calcium Phosphorus AST ALT Alkaline Phosphatase Ammonia Lactate Dehydrogenase Total Creatine Kinase Troponin T C-Reactive Protein Total Protein Albumin Triglycerides LDL Cholesterol Direct HDL Cholesterol Arterial Blood Glucose 149 H 162 H Arterial Blood Ionized Calcium Urine WBC (Auto) Salicylates Crossmatch 08/06/20 08/06/20 08/06/20 17:42 23:56 Unknown WBC 13.0 H RBC 2.38 L Hgb 7.1 L Hct 21.5 L MCV MCH MCHC RDW 17.6 H Plt Count Seg Neuts % (Manual) Lymphocytes % (Manual) Seg Neutrophils # Man Lymphocytes # (Manual) PT INR ABG pH POC ABG pCO2 POC ABG pO2 ABG pO2 ABG O2 Saturation ABG Hemoglobin ABG Oxyhemoglobin ABG Sodium ABG Potassium ABG Chloride ABG Glucose Oxyhemoglobin Carboxyhemoglobin Sodium Potassium Chloride Carbon Dioxide BUN Creatinine Glucose POC Glucose 179 H 259 H Hemoglobin A1c Lactic Acid Calcium Ionized Calcium Phosphorus AST ALT Alkaline Phosphatase Ammonia Lactate Dehydrogenase Total Creatine Kinase Troponin T C-Reactive Protein Total Protein Albumin Triglycerides LDL Cholesterol Direct HDL Cholesterol Arterial Blood Glucose Arterial Blood Ionized Calcium Urine WBC (Auto) Salicylates Crossmatch 08/07/20 08/07/20 08/07/20 04:00 04:05 04:05 WBC RBC 2.32 L Hgb 7.1 L Hct 20.9 L MCV MCH MCHC RDW 17.9 H Plt Count Seg Neuts % (Manual) Lymphocytes % (Manual) Seg Neutrophils # Man Lymphocytes # (Manual) PT INR ABG pH POC ABG pCO2 POC ABG pO2 150.6 H ABG pO2 ABG O2 Saturation ABG Hemoglobin 8.0 L ABG Oxyhemoglobin 98.4 H ABG Sodium 146.7 H ABG Potassium ABG Chloride 114.0 H ABG Glucose 201 H Oxyhemoglobin Carboxyhemoglobin Sodium 151 H Potassium Chloride 114.3 H Carbon Dioxide BUN 63 H Creatinine Glucose 198 H POC Glucose Hemoglobin A1c Lactic Acid Calcium Ionized Calcium Phosphorus AST 54 H ALT Alkaline Phosphatase 213 H Ammonia Lactate Dehydrogenase Total Creatine Kinase Troponin T C-Reactive Protein Total Protein 6.1 L Albumin 2.0 L Triglycerides LDL Cholesterol Direct HDL Cholesterol Arterial Blood Glucose 201 H Arterial Blood Ionized Calcium Urine WBC (Auto) Salicylates Crossmatch 0608/[id number]/20 08/07/20 05:34 11:43 14:30 WBC RBC Hgb Hct MCV MCH MCHC RDW Plt Count Seg Neuts % (Manual) Lymphocytes % (Manual) Seg Neutrophils # Man Lymphocytes # (Manual) PT INR ABG pH POC ABG pCO2 POC ABG pO2 ABG pO2 62.9 L ABG O2 Saturation 86.7 L ABG Hemoglobin 7.1 L ABG Oxyhemoglobin ABG Sodium ABG Potassium ABG Chloride ABG Glucose Oxyhemoglobin 85.0 L Carboxyhemoglobin Sodium Potassium Chloride Carbon Dioxide BUN Creatinine Glucose POC Glucose 160 H 201 H Hemoglobin A1c Lactic Acid Calcium Ionized Calcium Phosphorus AST ALT Alkaline Phosphatase Ammonia Lactate Dehydrogenase Total Creatine Kinase Troponin T C-Reactive Protein Total Protein Albumin Triglycerides LDL Cholesterol Direct HDL Cholesterol Arterial Blood Glucose Arterial Blood Ionized Calcium Urine WBC (Auto) Salicylates Crossmatch 08/07/20 08/07/20 08/08/20 17:57 23:12 05:38 WBC RBC Hgb Hct MCV MCH MCHC RDW Plt Count Seg Neuts % (Manual) Lymphocytes % (Manual) Seg Neutrophils # Man Lymphocytes # (Manual) PT INR ABG pH POC ABG pCO2 POC ABG pO2 ABG pO2 ABG O2 Saturation ABG Hemoglobin ABG Oxyhemoglobin ABG Sodium ABG Potassium ABG Chloride ABG Glucose Oxyhemoglobin Carboxyhemoglobin Sodium Potassium Chloride Carbon Dioxide BUN Creatinine Glucose POC Glucose 242 H 246 H 135 H Hemoglobin A1c Lactic Acid Calcium Ionized Calcium Phosphorus AST ALT Alkaline Phosphatase Ammonia Lactate Dehydrogenase Total Creatine Kinase Troponin T C-Reactive Protein Total Protein Albumin Triglycerides LDL Cholesterol Direct HDL Cholesterol Arterial Blood Glucose Arterial Blood Ionized Calcium Urine WBC (Auto) Salicylates Crossmatch 08/08/20 08/08/20 08/08/20 09:49 11:40 17:28 WBC RBC Hgb Hct MCV MCH MCHC RDW Plt Count Seg Neuts % (Manual) Lymphocytes % (Manual) Seg Neutrophils # Man Lymphocytes # (Manual) PT INR ABG pH POC ABG pCO2 POC ABG pO2 ABG pO2 ABG O2 Saturation ABG Hemoglobin 6.9 L ABG Oxyhemoglobin ABG Sodium 146.1 H ABG Potassium ABG Chloride 114.0 H ABG Glucose 192 H Oxyhemoglobin Carboxyhemoglobin Sodium Potassium Chloride Carbon Dioxide BUN Creatinine Glucose POC Glucose 187 H 175 H Hemoglobin A1c Lactic Acid Calcium Ionized Calcium Phosphorus AST ALT Alkaline Phosphatase Ammonia Lactate Dehydrogenase Total Creatine Kinase Troponin T C-Reactive Protein Total Protein Albumin Triglycerides LDL Cholesterol Direct HDL Cholesterol Arterial Blood Glucose 192 H Arterial Blood Ionized Calcium Urine WBC (Auto) Salicylates Crossmatch 08/09/20 08/09/20 08/09/20 03:41 06:10 11:58 WBC RBC Hgb Hct MCV MCH MCHC RDW Plt Count Seg Neuts % (Manual) Lymphocytes % (Manual) Seg Neutrophils # Man Lymphocytes # (Manual) PT INR ABG pH POC ABG pCO2 POC ABG pO2 ABG pO2 ABG O2 Saturation ABG Hemoglobin 6.9 L ABG Oxyhemoglobin ABG Sodium 145.8 H ABG Potassium 4.6 H ABG Chloride 113.0 H ABG Glucose 113 H Oxyhemoglobin Carboxyhemoglobin Sodium Potassium Chloride Carbon Dioxide BUN Creatinine Glucose POC Glucose 118 H 124 H Hemoglobin A1c Lactic Acid Calcium Ionized Calcium Phosphorus AST ALT Alkaline Phosphatase Ammonia Lactate Dehydrogenase Total Creatine Kinase Troponin T C-Reactive Protein Total Protein Albumin Triglycerides LDL Cholesterol Direct HDL Cholesterol Arterial Blood Glucose 113 H Arterial Blood Ionized Calcium Urine WBC (Auto) Salicylates Crossmatch 08/09/20 08/09/20 08/09/20 14:05 14:05 17:42 WBC RBC 3.58 L Hgb 10.5 L D Hct 31.6 L D MCV MCH MCHC RDW 17.8 H Plt Count 125 L Seg Neuts % (Manual) Lymphocytes % (Manual) Seg Neutrophils # Man Lymphocytes # (Manual) PT INR ABG pH POC ABG pCO2 POC ABG pO2 ABG pO2 ABG O2 Saturation ABG Hemoglobin ABG Oxyhemoglobin ABG Sodium ABG Potassium ABG Chloride ABG Glucose Oxyhemoglobin Carboxyhemoglobin Sodium Potassium Chloride 111.2 H Carbon Dioxide BUN 74 H Creatinine Glucose 137 H POC Glucose 139 H Hemoglobin A1c Lactic Acid Calcium Ionized Calcium Phosphorus AST ALT Alkaline Phosphatase Ammonia Lactate Dehydrogenase Total Creatine Kinase Troponin T C-Reactive Protein Total Protein Albumin Triglycerides LDL Cholesterol Direct HDL Cholesterol Arterial Blood Glucose Arterial Blood Ionized Calcium Urine WBC (Auto) Salicylates Crossmatch 08/09/20 08/09/20 08/09/20 21:07 21:25 23:26 WBC RBC Hgb Hct MCV MCH MCHC RDW Plt Count Seg Neuts % (Manual) Lymphocytes % (Manual) Seg Neutrophils # Man Lymphocytes # (Manual) PT 15.5 H INR 1.17 H ABG pH POC ABG pCO2 POC ABG pO2 ABG pO2 ABG O2 Saturation ABG Hemoglobin ABG Oxyhemoglobin ABG Sodium ABG Potassium ABG Chloride ABG Glucose Oxyhemoglobin Carboxyhemoglobin Sodium Potassium Chloride Carbon Dioxide BUN Creatinine Glucose POC Glucose 156 H 167 H Hemoglobin A1c Lactic Acid Calcium Ionized Calcium Phosphorus AST ALT Alkaline Phosphatase Ammonia Lactate Dehydrogenase Total Creatine Kinase Troponin T C-Reactive Protein Total Protein Albumin Triglycerides LDL Cholesterol Direct HDL Cholesterol Arterial Blood Glucose Arterial Blood Ionized Calcium Urine WBC (Auto) Salicylates Crossmatch 08/10/20 08/10/20 08/10/20 03:04 12:19 14:53 WBC RBC 2.06 L Hgb 6.1 L D Hct 18.6 L* D MCV MCH MCHC RDW 18.3 H Plt Count 137 L Seg Neuts % (Manual) Lymphocytes % (Manual) Seg Neutrophils # Man Lymphocytes # (Manual) PT INR ABG pH POC ABG pCO2 POC ABG pO2 ABG pO2 ABG O2 Saturation ABG Hemoglobin 6.7 L ABG Oxyhemoglobin ABG Sodium ABG Potassium ABG Chloride 111.0 H ABG Glucose 116 H Oxyhemoglobin Carboxyhemoglobin Sodium Potassium Chloride Carbon Dioxide BUN Creatinine Glucose POC Glucose 57 L Hemoglobin A1c Lactic Acid Calcium Ionized Calcium Phosphorus AST ALT Alkaline Phosphatase Ammonia Lactate Dehydrogenase Total Creatine Kinase Troponin T C-Reactive Protein Total Protein Albumin Triglycerides LDL Cholesterol Direct HDL Cholesterol Arterial Blood Glucose 116 H Arterial Blood Ionized Calcium Urine WBC (Auto) Salicylates Crossmatch 08/10/20 08/10/20 08/10/20 14:53 18:08 23:11 WBC RBC Hgb Hct MCV MCH MCHC RDW Plt Count Seg Neuts % (Manual) Lymphocytes % (Manual) Seg Neutrophils # Man Lymphocytes # (Manual) PT INR ABG pH POC ABG pCO2 POC ABG pO2 ABG pO2 ABG O2 Saturation ABG Hemoglobin ABG Oxyhemoglobin ABG Sodium ABG Potassium ABG Chloride ABG Glucose Oxyhemoglobin Carboxyhemoglobin Sodium 146 H Potassium Chloride 111.1 H Carbon Dioxide BUN 72 H Creatinine 1.4 H Glucose 158 H POC Glucose 68 L Hemoglobin A1c Lactic Acid Calcium 8.2 L Ionized Calcium Phosphorus AST ALT Alkaline Phosphatase Ammonia Lactate Dehydrogenase Total Creatine Kinase Troponin T C-Reactive Protein Total Protein Albumin Triglycerides LDL Cholesterol Direct HDL Cholesterol Arterial Blood Glucose Arterial Blood Ionized Calcium Urine WBC (Auto) Salicylates Crossmatch See Detail 08/11/20 08/11/20 08/11/20 04:12 05:34 05:36 WBC RBC Hgb Hct MCV MCH MCHC RDW Plt Count Seg Neuts % (Manual) Lymphocytes % (Manual) Seg Neutrophils # Man Lymphocytes # (Manual) PT INR ABG pH POC ABG pCO2 POC ABG pO2 397.7 H ABG pO2 ABG O2 Saturation ABG Hemoglobin 7.6 L ABG Oxyhemoglobin 98.8 H ABG Sodium ABG Potassium ABG Chloride 113.0 H ABG Glucose 60 L Oxyhemoglobin Carboxyhemoglobin Sodium Potassium Chloride Carbon Dioxide BUN Creatinine Glucose POC Glucose 55 L 51 L Hemoglobin A1c Lactic Acid Calcium Ionized Calcium Phosphorus AST ALT Alkaline Phosphatase Ammonia Lactate Dehydrogenase Total Creatine Kinase Troponin T C-Reactive Protein Total Protein Albumin Triglycerides LDL Cholesterol Direct HDL Cholesterol Arterial Blood Glucose 60 L Arterial Blood Ionized Calcium 4.4 L Urine WBC (Auto) Salicylates Crossmatch 08/11/20 08/11/20 08/11/20 08:40 08:40 10:23 WBC RBC 2.14 L Hgb 6.2 L 6.3 L Hct 18.8 L* 19.0 L* MCV MCH MCHC RDW 17.6 H Plt Count Seg Neuts % (Manual) Lymphocytes % (Manual) Seg Neutrophils # Man Lymphocytes # (Manual) PT INR ABG pH POC ABG pCO2 POC ABG pO2 ABG pO2 ABG O2 Saturation ABG Hemoglobin ABG Oxyhemoglobin ABG Sodium ABG Potassium ABG Chloride ABG Glucose Oxyhemoglobin Carboxyhemoglobin Sodium 147 H Potassium Chloride 112.3 H Carbon Dioxide BUN 62 H Creatinine 1.5 H Glucose 73 L POC Glucose Hemoglobin A1c Lactic Acid Calcium 7.9 L Ionized Calcium Phosphorus AST ALT Alkaline Phosphatase Ammonia Lactate Dehydrogenase Total Creatine Kinase Troponin T C-Reactive Protein Total Protein Albumin Triglycerides LDL Cholesterol Direct HDL Cholesterol Arterial Blood Glucose Arterial Blood Ionized Calcium Urine WBC (Auto) Salicylates Crossmatch 08/11/20 08/11/20 08/11/20 11:56 17:43 18:40 WBC RBC Hgb Hct MCV MCH MCHC RDW Plt Count Seg Neuts % (Manual) Lymphocytes % (Manual) Seg Neutrophils # Man Lymphocytes # (Manual) PT 15.7 H INR 1.19 H ABG pH POC ABG pCO2 POC ABG pO2 ABG pO2 ABG O2 Saturation ABG Hemoglobin ABG Oxyhemoglobin ABG Sodium ABG Potassium ABG Chloride ABG Glucose Oxyhemoglobin Carboxyhemoglobin Sodium Potassium Chloride Carbon Dioxide BUN Creatinine Glucose POC Glucose 53 L 113 H Hemoglobin A1c Lactic Acid Calcium Ionized Calcium Phosphorus AST ALT Alkaline Phosphatase Ammonia Lactate Dehydrogenase Total Creatine Kinase Troponin T C-Reactive Protein Total Protein Albumin Triglycerides LDL Cholesterol Direct HDL Cholesterol Arterial Blood Glucose Arterial Blood Ionized Calcium Urine WBC (Auto) Salicylates Crossmatch 08/11/20 08/11/20 08/11/20 18:40 20:10 22:13 WBC RBC Hgb 6.2 L 6.1 L Hct 18.4 L* 18.3 L* MCV MCH MCHC RDW Plt Count Seg Neuts % (Manual) Lymphocytes % (Manual) Seg Neutrophils # Man Lymphocytes # (Manual) PT INR ABG pH POC ABG pCO2 POC ABG pO2 163.6 H ABG pO2 ABG O2 Saturation ABG Hemoglobin 7.7 L ABG Oxyhemoglobin 98.3 H ABG Sodium ABG Potassium ABG Chloride 112.0 H ABG Glucose 119 H Oxyhemoglobin Carboxyhemoglobin Sodium Potassium Chloride Carbon Dioxide BUN Creatinine Glucose POC Glucose Hemoglobin A1c Lactic Acid Calcium Ionized Calcium Phosphorus AST ALT Alkaline Phosphatase Ammonia Lactate Dehydrogenase Total Creatine Kinase Troponin T C-Reactive Protein Total Protein Albumin Triglycerides LDL Cholesterol Direct HDL Cholesterol Arterial Blood Glucose 119 H Arterial Blood Ionized Calcium 4.4 L Urine WBC (Auto) Salicylates Crossmatch 08/11/20 08/12/20 08/12/20 23:32 04:43 04:43 WBC RBC Hgb Hct MCV MCH MCHC RDW Plt Count Seg Neuts % (Manual) Lymphocytes % (Manual) Seg Neutrophils # Man Lymphocytes # (Manual) PT INR ABG pH POC ABG pCO2 POC ABG pO2 ABG pO2 ABG O2 Saturation ABG Hemoglobin ABG Oxyhemoglobin ABG Sodium ABG Potassium ABG Chloride ABG Glucose Oxyhemoglobin Carboxyhemoglobin Sodium Potassium Chloride Carbon Dioxide BUN Creatinine Glucose POC Glucose 106 H Hemoglobin A1c Lactic Acid Calcium Ionized Calcium Phosphorus AST 57 H ALT Alkaline Phosphatase 288 H Ammonia Lactate Dehydrogenase 239 H Total Creatine Kinase Troponin T C-Reactive Protein Total Protein 6.0 L Albumin 1.7 L Triglycerides LDL Cholesterol Direct HDL Cholesterol Arterial Blood Glucose Arterial Blood Ionized Calcium Urine WBC (Auto) Salicylates Crossmatch 08/12/20 08/12/20 08/12/20 04:53 05:07 07:55 WBC RBC 3.03 L 2.90 L Hgb 8.5 L 8.1 L Hct 25.6 L D 24.4 L MCV MCH MCHC RDW 18.4 H 18.9 H Plt Count Seg Neuts % (Manual) 88.0 H Lymphocytes % (Manual) 6.0 L Seg Neutrophils # Man Lymphocytes # (Manual) 0.4 L PT INR ABG pH POC ABG pCO2 POC ABG pO2 ABG pO2 ABG O2 Saturation ABG Hemoglobin ABG Oxyhemoglobin ABG Sodium ABG Potassium ABG Chloride ABG Glucose Oxyhemoglobin Carboxyhemoglobin Sodium Potassium Chloride Carbon Dioxide BUN Creatinine Glucose POC Glucose 139 H Hemoglobin A1c Lactic Acid Calcium Ionized Calcium Phosphorus AST ALT Alkaline Phosphatase Ammonia Lactate Dehydrogenase Total Creatine Kinase Troponin T C-Reactive Protein Total Protein Albumin Triglycerides LDL Cholesterol Direct HDL Cholesterol Arterial Blood Glucose Arterial Blood Ionized Calcium Urine WBC (Auto) Salicylates Crossmatch 08/12/20 08/12/20 08/12/20 07:55 11:17 13:05 WBC RBC Hgb Hct MCV MCH MCHC RDW Plt Count Seg Neuts % (Manual) Lymphocytes % (Manual) Seg Neutrophils # Man Lymphocytes # (Manual) PT INR ABG pH POC ABG pCO2 POC ABG pO2 ABG pO2 ABG O2 Saturation ABG Hemoglobin ABG Oxyhemoglobin ABG Sodium ABG Potassium ABG Chloride ABG Glucose Oxyhemoglobin Carboxyhemoglobin Sodium Potassium 3.3 L Chloride 109.8 H Carbon Dioxide BUN 52 H Creatinine Glucose 153 H POC Glucose 150 H 143 H Hemoglobin A1c Lactic Acid Calcium 8.1 L Ionized Calcium Phosphorus AST ALT Alkaline Phosphatase Ammonia Lactate Dehydrogenase Total Creatine Kinase Troponin T C-Reactive Protein Total Protein Albumin Triglycerides LDL Cholesterol Direct HDL Cholesterol Arterial Blood Glucose Arterial Blood Ionized Calcium Urine WBC (Auto) Salicylates Crossmatch 08/12/20 08/12/20 08/12/20 17:29 18:28 23:22 WBC RBC Hgb Hct MCV MCH MCHC RDW Plt Count Seg Neuts % (Manual) Lymphocytes % (Manual) Seg Neutrophils # Man Lymphocytes # (Manual) PT INR ABG pH POC ABG pCO2 POC ABG pO2 ABG pO2 ABG O2 Saturation ABG Hemoglobin ABG Oxyhemoglobin ABG Sodium ABG Potassium ABG Chloride ABG Glucose Oxyhemoglobin Carboxyhemoglobin Sodium Potassium Chloride Carbon Dioxide BUN Creatinine Glucose POC Glucose 158 H 158 H 191 H Hemoglobin A1c Lactic Acid Calcium Ionized Calcium Phosphorus AST ALT Alkaline Phosphatase Ammonia Lactate Dehydrogenase Total Creatine Kinase Troponin T C-Reactive Protein Total Protein Albumin Triglycerides LDL Cholesterol Direct HDL Cholesterol Arterial Blood Glucose Arterial Blood Ionized Calcium Urine WBC (Auto) Salicylates Crossmatch 08/13/20 08/13/20 08/13/20 05:32 09:58 09:58 WBC RBC 2.79 L Hgb 7.9 L Hct 23.5 L MCV MCH MCHC RDW 18.9 H Plt Count Seg Neuts % (Manual) Lymphocytes % (Manual) Seg Neutrophils # Man Lymphocytes # (Manual) PT INR ABG pH POC ABG pCO2 POC ABG pO2 ABG pO2 ABG O2 Saturation ABG Hemoglobin ABG Oxyhemoglobin ABG Sodium ABG Potassium ABG Chloride ABG Glucose Oxyhemoglobin Carboxyhemoglobin Sodium Potassium 3.5 L Chloride 109.1 H Carbon Dioxide BUN 51 H Creatinine Glucose 168 H POC Glucose 131 H Hemoglobin A1c Lactic Acid Calcium 8.0 L Ionized Calcium Phosphorus AST ALT Alkaline Phosphatase Ammonia Lactate Dehydrogenase Total Creatine Kinase Troponin T C-Reactive Protein Total Protein Albumin Triglycerides LDL Cholesterol Direct HDL Cholesterol Arterial Blood Glucose Arterial Blood Ionized Calcium Urine WBC (Auto) Salicylates Crossmatch 08/13/20 08/13/20 08/13/20 12:07 12:10 17:17 WBC RBC Hgb Hct MCV MCH MCHC RDW Plt Count Seg Neuts % (Manual) Lymphocytes % (Manual) Seg Neutrophils # Man Lymphocytes # (Manual) PT INR ABG pH POC ABG pCO2 POC ABG pO2 ABG pO2 ABG O2 Saturation ABG Hemoglobin ABG Oxyhemoglobin ABG Sodium ABG Potassium ABG Chloride ABG Glucose Oxyhemoglobin Carboxyhemoglobin Sodium Potassium Chloride Carbon Dioxide BUN Creatinine Glucose POC Glucose 142 H 159 H 137 H Hemoglobin A1c Lactic Acid Calcium Ionized Calcium Phosphorus AST ALT Alkaline Phosphatase Ammonia Lactate Dehydrogenase Total Creatine Kinase Troponin T C-Reactive Protein Total Protein Albumin Triglycerides LDL Cholesterol Direct HDL Cholesterol Arterial Blood Glucose Arterial Blood Ionized Calcium Urine WBC (Auto) Salicylates Crossmatch 08/13/20 08/14/20 08/14/20 23:17 05:10 11:35 WBC RBC Hgb Hct MCV MCH MCHC RDW Plt Count Seg Neuts % (Manual) Lymphocytes % (Manual) Seg Neutrophils # Man Lymphocytes # (Manual) PT INR ABG pH POC ABG pCO2 POC ABG pO2 ABG pO2 ABG O2 Saturation ABG Hemoglobin ABG Oxyhemoglobin ABG Sodium ABG Potassium ABG Chloride ABG Glucose Oxyhemoglobin Carboxyhemoglobin Sodium Potassium Chloride Carbon Dioxide BUN Creatinine Glucose POC Glucose 157 H 153 H 175 H Hemoglobin A1c Lactic Acid Calcium Ionized Calcium Phosphorus AST ALT Alkaline Phosphatase Ammonia Lactate Dehydrogenase Total Creatine Kinase Troponin T C-Reactive Protein Total Protein Albumin Triglycerides LDL Cholesterol Direct HDL Cholesterol Arterial Blood Glucose Arterial Blood Ionized Calcium Urine WBC (Auto) Salicylates Crossmatch 08/14/20 08/14/20 08/14/20 12:05 13:01 13:01 WBC RBC 2.73 L Hgb 7.7 L Hct 22.6 L MCV 83 L MCH MCHC RDW 18.4 H Plt Count Seg Neuts % (Manual) Lymphocytes % (Manual) Seg Neutrophils # Man Lymphocytes # (Manual) PT INR ABG pH POC ABG pCO2 POC ABG pO2 ABG pO2 75.1 L ABG O2 Saturation ABG Hemoglobin 7.7 L ABG Oxyhemoglobin ABG Sodium ABG Potassium ABG Chloride ABG Glucose Oxyhemoglobin 94.8 L Carboxyhemoglobin Sodium Potassium Chloride 107.3 H Carbon Dioxide BUN 49 H Creatinine Glucose 191 H POC Glucose Hemoglobin A1c Lactic Acid Calcium 7.9 L Ionized Calcium Phosphorus AST ALT Alkaline Phosphatase Ammonia Lactate Dehydrogenase Total Creatine Kinase Troponin T C-Reactive Protein Total Protein Albumin Triglycerides LDL Cholesterol Direct HDL Cholesterol Arterial Blood Glucose Arterial Blood Ionized Calcium Urine WBC (Auto) Salicylates Crossmatch Chest x-ray: pending Allied health notes reviewed: nursing
[2020-08-14] MEDS ORDERED: INSULIN GLARGINE 100 UNITS/ML SUB-Q NR (14:45)
--- NOTE | 2020-08-14 14:52 | Progress Note ---
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 12:00 08/14/20 00:40 Insulin Lispro 100 Unit/Ml SUB-Q 3 unit Q6HR [facility] Administration Protocol Metoprolol Tartrate 25 mg 08/14/20 22:00 Metoprolol Tartrate 25 Mg Tab PO BID [facility] Multi-Ingred Cream/Lotion/Oil/Oint 1 applic 07/28/20 09:30 Mineral Oil/Petrolatum, White Ophth Oint 3.5 Gm OU Q4H PRN Dry Eye(s) Scopolamine 1 each 08/07/20 13:00 08/13/20 09:54 Scopolamine Transdermal Patch 72 Hr TD 1 each Q3D [place] Administration Senna/Docusate Sodium 1 tab 07/28/20 22:00 08/14/20 10:56 Sennosides/Docusate Sodium 8.6/50 Mg Tab FEEDTUBE 1 tab BID [place] Administration Simple Syrup 15 ml 07/29/20 09:55 Simple Syrup 15 Ml FEEDTUBE PRN PRN Hypoglycemia Simple Syrup 30 ml 07/29/20 09:55 Simple Syrup 15 Ml FEEDTUBE PRN PRN Hypoglycemia Sodium Bicarbonate 325 mg 07/29/20 09:55 Sodium Bicarbonate 325 Mg Tab FEEDTUBE PRN PRN For Clogged Feeding Tube Sodium Chloride 10 ml 07/28/20 22:00 08/13/20 21:18 Sodium Chloride 0.9% 10 Ml Flush Syringe IV 10 ml BID [place] Administration Sodium Chloride 10 ml 07/28/20 14:27 Sodium Chloride 0.9% 10 Ml Flush Syringe IV PRN PRN LINE FLUSH Zinc Sulfate 220 mg 08/01/20 15:00 08/14/20 10:56 Zinc Sulfate 220 Mg Cap PO 220 mg BID [place] Administration Nutrition/Malnutrition Assess - Dietary Evaluation Nutrition/Malnutrition Findings: Nutrition Notes Start: 07/29/20 09:47 Freq: Status: Active Protocol: Document 08/13/20 10:57 (Rec: 08/13/20 10:59 [id number]) Nutrition Notes Initial or Follow up Reassessment Current Diagnosis Acute Kidney Injury, Respiratory Failure Other Pertinent Diagnosis Acute encephalopathy, Pneu, UTI, Quadriplegia Current Diet NPO Labs/Tests K 3.5 BUN 51 Pertinent Medications Reviewed Height 6 ft Weight 73.5 kg [place] Body Weight (kg) 80.90 BMI 21.9 Weight Status Appropriate Subjective/Other Information FU for TF restart. Observed TF running at goal rate and per RN the pt is tolerating it. Percent of energy/protein needs met: 100%/100% Burn Absent Trauma Absent Current % PO Negligible Minimum of two criteria No Fluid Accumulation Moderate to Severe (severe) #2 Nutrition Diagnosis Increased nutrient needs ( specify in comment below) Diagnosis Progress(for reassessment Continues documentation) #1 Nutrition Diagnosis Inadequate oral intake Diagnosis Progress(for reassessment Continues documentation) Is patient on ventilator? Yes Is Patient Ambulatory and/or Out of Bed No REE-(Rad Mei-confined to bed) 0815.445 Calculation Used for Recommendations [place] Additional Notes Pro needs 1.2-2g/k-163g/ day Fluid needs 1ml/kcal Nutrition Intervention Change Diet Order: Continue Nutrition Support: Continue Vital AF 1.2 at 65ml/ hr with 100 ml water flush q4h . Kcal 1,872 Protein (gm) 117 Fluid (mL) 1,265 Add Supplement/Snack (indicate name/kcal Reji BID /protein ) Provides kCal: 190 Provides Protein (gm) 5 Goal #1 TF tolerance Goal #2 TF to meet at least 80% energy and pro needs Anticipated Discharge Needs: Unable to determine at this time Follow-Up By: 08/17/20 Additional Comments FU for TF tolerance <DARI GIPSON - Last Filed: 08/14/20 15:49> Assessment and Plan Assessment and plan: Patient seen and examined, eyes open, responsive with head nodding. Agree with assessment and plan as outlined by nurse practitioner. Repeat chest x-ray shows possible fluid, ultrasound is pending to determine if patient needs a thoracentesis. Hospitalist Physical - Constitutional Vitals: Temp Pulse Resp BP Pulse Ox 99 F 99 H 29 H 162/66 94 08/14/20 12:00 08/14/20 12:13 08/14/20 06:00 08/14/20 12:13 08/14/20 12:13 HEART Score - HEART Score Troponin: Troponin T 0.115 ng/mL (0.00-0.029) H* 07/28/20 08:48 Results - Labs CBC & Chem 7: 08/14/20 13:01 08/14/20 13:01 Labs: Laboratory Last Values WBC 7.2 K/mm3 (4.5-11.0) 08/14/20 13:01 RBC 2.73 M/mm3 (3.65-5.03) L 08/14/20 13:01 Hgb 7.7 gm/dl (11.8-15.2) L 08/14/20 13:01 Hct 22.6 % (35.5-45.6) L 08/14/20 13:01 MCV 83 fl (84-94) L 08/14/20 13:01 MCH 28 pg (28-32) 08/14/20 13:01 MCHC 34 % (32-34) 08/14/20 13:01 RDW 18.4 % (13.2-15.2) H 08/14/20 13:01 Plt Count 176 K/mm3 (140-440) 08/14/20 13:01 Lymph % (Auto) Bar Machine Operator Multiple Spindle 07/28/20 08:48 [place] % (Auto) Bar Machine Operator Multiple Spindle 07/28/20 08:48 Eos % (Auto) Bar Machine Operator Multiple Spindle 07/28/20 08:48 Baso % (Auto) Bar Machine Operator Multiple Spindle 07/28/20 08:48 Lymph # (Auto) Bar Machine Operator Multiple Spindle 07/28/20 08:48 [place] # (Auto) Bar Machine Operator Multiple Spindle 07/28/20 08:48 Eos # (Auto) Bar Machine Operator Multiple Spindle 07/28/20 08:48 Baso # (Auto) Bar Machine Operator Multiple Spindle 07/28/20 08:48 Add Manual Diff Complete 08/12/20 04:53 Total Counted 100 08/12/20 04:53 Seg Neutrophils % Bar Machine Operator Multiple Spindle 08/05/20 08:48 Seg Neuts % (Manual) 88.0 % (40.0-70.0) H 08/12/20 04:53 Band Neutrophils % 2.0 % 08/12/20 04:53 Lymphocytes % (Manual) 6.0 % (13.4-35.0) L 08/12/20 04:53 Reactive Lymphs % (Man) 1.0 % 08/05/20 08:48 Monocytes % (Manual) 4.0 % (0.0-7.3) 08/12/20 04:53 Metamyelocytes % 14.0 % 07/29/20 Unknown Nucleated RBC % Not Reportable 08/12/20 04:53 Seg Neutrophils # Bar Machine Operator Multiple Spindle 07/28/20 08:48 Seg Neutrophils # Man 5.5 K/mm3 (1.8-7.7) 08/12/20 04:53 Band Neutrophils # 0.1 K/mm3 08/12/20 04:53 Lymphocytes # (Manual) 0.4 K/mm3 (1.2-5.4) L 08/12/20 04:53 Abs React Lymphs (Man) 0.0 K/mm3 08/12/20 04:53 Monocytes # (Manual) 0.2 K/mm3 (0.0-0.8) 08/12/20 04:53 Eosinophils # (Manual) 0.0 K/mm3 (0.0-0.4) 08/12/20 04:53 Basophils # (Manual) 0.0 K/mm3 (0.0-0.1) 08/12/20 04:53 Metamyelocytes # 0.0 K/mm3 08/12/20 04:53 Myelocytes # 0.0 K/mm3 08/12/20 04:53 Promyelocytes # 0.0 K/mm3 08/12/20 04:53 Blast Cells # 0.0 K/mm3 08/12/20 04:53 WBC Morphology Not Reportable 08/12/20 04:53 Hypersegmented Neuts Not Reportable 08/12/20 04:53 Hyposegmented Neuts Not Reportable 08/12/20 04:53 Hypogranular Neuts Not Reportable 08/12/20 04:53 Smudge Cells Not Reportable 08/12/20 04:53 Toxic Granulation Not Reportable 08/12/20 04:53 Toxic Vacuolation Not Reportable 08/12/20 04:53 Dohle Bodies Not Reportable 08/12/20 04:53 Pelger-Huet Anomaly Not Reportable 08/12/20 04:53 Janna Rods Not Reportable 08/12/20 04:53 Platelet Estimate Not Reportable 08/12/20 04:53 Clumped Platelets Not Reportable 08/12/20 04:53 Plt Clumps, EDTA Not Reportable 08/12/20 04:53 Large Platelets Not Reportable 08/12/20 04:53 Giant Platelets Not Reportable 08/12/20 04:53 Platelet Satelliting Not Reportable 08/12/20 04:53 Plt Morphology Comment Not Reportable 08/12/20 04:53 RBC Morphology Not Reportable 08/12/20 04:53 Dimorphic RBCs Not Reportable 08/12/20 04:53 Polychromasia Not Reportable 08/12/20 04:53 Hypochromasia 1+ 08/12/20 04:53 Poikilocytosis Not Reportable 08/12/20 04:53 Anisocytosis 1+ 08/12/20 04:53 Microcytosis Not Reportable 08/12/20 04:53 Macrocytosis Not Reportable 08/12/20 04:53 Spherocytes Not Reportable 08/12/20 04:53 Pappenheimer Bodies Not Reportable 08/12/20 04:53 Sickle Cells Not Reportable 08/12/20 04:53 Target Cells Few 08/12/20 04:53 Tear Drop Cells Not Reportable 08/12/20 04:53 Ovalocytes Not Reportable 08/12/20 04:53 Helmet Cells Not Reportable 08/12/20 04:53 Ramirez-Upton Bodies Not Reportable 08/12/20 04:53 Bethel Rings Not Reportable 08/12/20 04:53 Rumney Cells Not Reportable 08/12/20 04:53 Bite Cells Not Reportable 08/12/20 04:53 Crenated Cell Not Reportable 08/12/20 04:53 Elliptocytes Not Reportable 08/12/20 04:53 Acanthocytes (Spur) Not Reportable 08/12/20 04:53 Rouleaux Not Reportable 08/12/20 04:53 Hemoglobin C Crystals Not Reportable 08/12/20 04:53 Schistocytes Not Reportable 08/12/20 04:53 Malaria parasites Not Reportable 08/12/20 04:53 Percent Retic 1.65 % (0.78-2.58) 08/12/20 04:53 Lito Bodies Not Reportable 08/12/20 04:53 Hem Pathologist Commnt No 08/12/20 04:53 PT 15.7 Sec. (12.2-14.9) H 08/11/20 18:40 INR 1.19 (0.87-1.13) H 08/11/20 18:40 APTT 34.7 Sec. (24.2-36.6) 07/28/20 08:48 Heparin Anti-Xa, Unfract Negative (Negative) 08/01/20 23:40 ABG pH 7.449 pH Units (7.350-7.450) 08/14/20 12:05 POC ABG pCO2 46.9 mmHg (32.0-48.0) 08/11/20 22:13 ABG pCO2 36.2 mm Hg 08/14/20 12:05 POC ABG pO2 163.6 mmHg (83-108) H 08/11/20 22:13 ABG pO2 75.1 mm Hg (80.0-90.0) L 08/14/20 12:05 POC ABG HCO3 25.5 08/11/20 22:13 ABG HCO3 24.5 mmol/L (20.0-26.0) 08/14/20 12:05 ABG O2 Saturation 96.6 % (95.0-99.0) 08/14/20 12:05 ABG O2 Content 10.3 (0.0-44) 08/14/20 12:05 POC ABG Base Excess -0.1 08/11/20 22:13 ABG Base Excess 0.6 mmol/L (-2.0-3.0) 08/14/20 12:05 ABG Hemoglobin 7.7 gm/dl (14.0-18.0) L 08/14/20 12:05 ABG Oxyhemoglobin 98.3 (94-98) H 08/11/20 22:13 ABG Carboxyhemoglobin 1.5 % (0.0-5.0) 08/14/20 12:05 ABG Methemoglobin 0.4 % (0.0-1.5) 08/14/20 12:05 ABG Sodium 143.9 mmol/L (136.0-145.0) 08/11/20 22:13 ABG Potassium 3.6 mmol/L (3.40-4.50) 08/11/20 22:13 ABG Chloride 112.0 mmol/L (98-107) H 08/11/20 22:13 ABG Glucose 119 mg/dL (65-95) H 08/11/20 22:13 VBG pH 7.377 (7.320-7.420) 07/28/20 09:44 Oxyhemoglobin 94.8 % (95.0-99.0) L 08/14/20 12:05 Carboxyhemoglobin 0.9 (0.5-1.5) 08/11/20 22:13 FiO2 60 % 08/14/20 12:05 FiO2 % 100.0 08/11/20 22:13 Sodium 143 mmol/L (137-145) 08/14/20 13:01 Potassium 3.7 mmol/L (3.6-5.0) 08/14/20 13:01 Chloride 107.3 mmol/L (98-107) H 08/14/20 13:01 Carbon Dioxide 25 mmol/L (22-30) 08/14/20 13:01 Anion Gap 14 mmol/L 08/14/20 13:01 BUN 49 mg/dL (9-20) H 08/14/20 13:01 Creatinine 1.0 mg/dL (0.8-1.3) 08/14/20 13:01 Estimated GFR > 60 ml/min 08/14/20 13:01 BUN/Creatinine Ratio 49 % 08/14/20 13:01 Glucose 191 mg/dL (75-100) H 08/14/20 13:01 POC Glucose 175 mg/dL (70-105) H 08/14/20 11:35 Hemoglobin A1c 8.8 % (4-6) H 08/01/20 04:30 Lactic Acid 1.60 mmol/L (0.7-2.0) 07/30/20 05:45 Calcium 7.9 mg/dL (8.4-10.2) L 08/14/20 13:01 Ionized Calcium 4.2 mg/dL (4.8-5.6) L 07/30/20 19:01 Phosphorus 2.90 mg/dL (2.5-4.5) D 08/04/20 03:00 Magnesium 2.30 mg/dL (1.7-2.3) 08/02/20 Unknown Total Bilirubin 0.20 mg/dL (0.1-1.2) 08/12/20 04:43 Direct Bilirubin < 0.2 mg/dL (0-0.2) 08/12/20 04:43 Indirect Bilirubin 0.0 mg/dL 08/12/20 04:43 AST 57 units/L (5-40) H 08/12/20 04:43 ALT 33 units/L (7-56) 08/12/20 04:43 Alkaline Phosphatase 288 units/L (35-129) H 08/12/20 04:43 Ammonia 63.0 umol/L (25-60) H 07/28/20 08:48 Lactate Dehydrogenase 239 units/L (91-180) H 08/12/20 04:43 Total Creatine Kinase 486 units/L (55-170) H 07/28/20 08:48 Troponin T 0.115 ng/mL (0.00-0.029) H* 07/28/20 08:48 C-Reactive Protein 9.00 mg/dL (0.00-1.30) H 07/28/20 19:50 Total Protein 6.0 g/dL (6.3-8.2) L 08/12/20 04:43 Albumin 1.7 g/dL (3.9-5) L 08/12/20 04:43 Albumin/Globulin Ratio 0.4 % 08/12/20 04:43 Triglycerides 184 mg/dL (2-149) H 08/04/20 03:00 Cholesterol 80 mg/dL (50-199) 07/28/20 08:48 LDL Cholesterol Direct 44 mg/dL (50-130) L 07/28/20 08:48 HDL Cholesterol 26 mg/dL (40-59) L 07/28/20 08:48 Cholesterol/HDL Ratio 3.07 % 07/28/20 08:48 Serotonin Release Assay See scanned result 08/01/20 23:40 Procalcitonin 177.82 ng/mL (<0.15) 07/28/20 19:50 TSH 2.450 mlU/mL (0.270-4.200) 07/28/20 08:48 Arterial Blood Glucose 119 mg/dL (65-95) H 08/11/20 22:13 Arterial Blood Ionized Calcium 4.4 mg/dL (4.6-5.3) L 08/11/20 22:13 Urine Color Linette (Yellow) 07/28/20 Unknown Urine Turbidity Cloudy (Clear) 07/28/20 Unknown Urine pH 5.0 (5.0-7.0) 07/28/20 Unknown Ur Specific [place] 1.018 (1.003-1.030) 07/28/20 Unknown Urine Protein 100 mg/dl mg/dL (Negative) 07/28/20 Unknown Urine Glucose (UA) Neg mg/dL (Negative) 07/28/20 Unknown Urine Ketones Neg mg/dL (Negative) 07/28/20 Unknown Urine Blood Lg (Negative) 07/28/20 Unknown Urine Nitrite Neg (Negative) 07/28/20 Unknown Urine Bilirubin Neg (Negative) 07/28/20 Unknown Urine Urobilinogen 2.0 mg/dL (<2.0) 07/28/20 Unknown Ur Leukocyte Esterase Lg (Negative) 07/28/20 Unknown Urine WBC (Auto) > 182.0 /HPF (0.0-6.0) H 07/28/20 Unknown Urine RBC (Auto) 30.0 /HPF (0.0-6.0) 07/28/20 Unknown U Epithel Cells (Auto) 2.0 /HPF (0-13.0) 07/28/20 Unknown Urine Bacteria (Auto) 1+ /HPF (Negative) 07/28/20 Unknown Ur Transition Epith Cell 4 /HPF 07/28/20 Unknown Hyaline Casts 5 /LPF 07/28/20 Unknown Urine Mucus Few /HPF 07/28/20 Unknown Nasal Screen MRSA (PCR) Negative (Negative) 07/29/20 Unknown Salicylates < 0.3 mg/dL (2.8-20.0) L 07/28/20 09:44 Plasma/Serum Alcohol < 0.01 % (0-0.07) 07/28/20 09:44 Heparin-induced Plt Ab Negative (Negative) 08/01/20 23:40 UF Heparin High Dose 0 % Release 08/01/20 23:40 DEISY UFH Low Dose 0.1 0 % Release 08/01/20 23:40 DEISY UFH Low Dose 0.5 0 % Release 08/01/20 23:40 Coronavirus (PCR) Negative (Negative) 07/29/20 09:15 AFB Identification 08/06/20 11:55 Fungal Id Prelim Positive 08/06/20 11:55 Blood Type O POSITIVE 08/10/20 18:08 Antibody Screen Negative 08/10/20 18:08 Crossmatch See Detail 08/10/20 18:08 Brennan/IV: Voiding Method Indwelling Catheter Active Medications - Current Medications Current Medications: Generic Name Dose Route Start Last Admin Trade Name Freq PRN Reason Stop Dose Admin Acetaminophen 650 mg 07/28/20 14:27 08/08/20 21:50 Acetaminophen 325 Mg Tab PO 650 mg Q6H PRN Administration Pain, Mild (1-3) Albuterol 2.5 mg 07/28/20 14:27 08/05/20 14:27 Albuterol 2.5 Mg/3 Ml Nebu IH 2.5 mg Q3H PRN Administration Shortness Of Breath Amlodipine Besylate 10 mg 08/15/20 10:00 Amlodipine 10 Mg Tab PO QDAY [place] Lipase/Protease/Amylase 1 each 07/29/20 09:55 Lipase 10,500/Protease 25,000/Amylase 43,750 (Units) Dr Velasquez FEEDTUBE PRN PRN For Clogged Feeding Tube Ascorbic Acid 500 mg 08/01/20 22:00 08/14/20 10:56 Ascorbic Acid 500 Mg Tab PO 500 mg BID [place] Administration Dextrose 50 ml 07/29/20 15:46 08/11/20 12:10 Dextrose 50% In Water (25gm) 50 Ml Syringe IV 20 ml Q30MIN PRN Administration Hypoglycemia Protocol Enoxaparin Sodium 40 mg 08/06/20 10:00 08/14/20 10:57 Enoxaparin 40 Mg/0.4 Ml Inj SUB-Q 40 mg QDAY@1000 [place] Administration Famotidine 20 mg 07/30/20 10:00 08/14/20 10:56 Famotidine 20 Mg Tab PO 20 mg BID [place] Administration Hydralazine HCl 10 mg 08/07/20 10:49 Hydralazine 20 Mg/1 Ml Inj IV Q4HR PRN Give if SBP>180 DBP>100 Hydromorphone HCl 1 mg 08/07/20 12:28 08/12/20 18:19 Hydromorphone 1 Mg/1 Ml Inj IV 1 mg Q4H PRN Administration Pain , Severe (7-10) Hydrophilic Ointment 1 applic 07/28/20 09:30 Lip Therapy Vaseline TP Q2H PRN Dry Lips Fluconazole 200 mls @ 100 mls/hr 08/01/20 15:00 08/14/20 15:05 Diflucan IV 08/14/20 16:59 100 mls/hr Q24H [facility] Administration Protocol Insulin Glargine 30 units 08/15/20 10:00 Insulin Glargine 100 Units/Ml SUB-Q QDAY [facility] Insulin Glargine 5 units 08/14/20 14:45 Insulin Glargine 100 Units/Ml SUB-Q 08/14/20 17:00 ONCE NR Insulin Human Lispro 0 unit 08/04/20 12:00 08/14/20 00:40 Insulin Lispro 100 Unit/Ml SUB-Q 3 unit Q6HR [facility] Administration Protocol Metoprolol Tartrate 25 mg 08/14/20 22:00 Metoprolol Tartrate 25 Mg Tab PO BID [facility] Multi-Ingred Cream/Lotion/Oil/Oint 1 applic 07/28/20 09:30 Mineral Oil/Petrolatum, White Ophth Oint 3.5 Gm OU Q4H PRN Dry Eye(s) Scopolamine 1 each 08/07/20 13:00 08/13/20 09:54 Scopolamine Transdermal Patch 72 Hr TD 1 each Q3D [place] Administration Senna/Docusate Sodium 1 tab 07/28/20 22:00 08/14/20 10:56 Sennosides/Docusate Sodium 8.6/50 Mg Tab FEEDTUBE 1 tab BID [place] Administration Simple Syrup 15 ml 07/29/20 09:55 Simple Syrup 15 Ml FEEDTUBE PRN PRN Hypoglycemia Simple Syrup 30 ml 07/29/20 09:55 Simple Syrup 15 Ml FEEDTUBE PRN PRN Hypoglycemia Sodium Bicarbonate 325 mg 07/29/20 09:55 Sodium Bicarbonate 325 Mg Tab FEEDTUBE PRN PRN For Clogged Feeding Tube Sodium Chloride 10 ml 07/28/20 22:00 08/13/20 21:18 Sodium Chloride 0.9% 10 Ml Flush Syringe IV 10 ml BID [place] Administration Sodium Chloride 10 ml 07/28/20 14:27 Sodium Chloride 0.9% 10 Ml Flush Syringe IV PRN PRN LINE FLUSH Zinc Sulfate 220 mg 08/01/20 15:00 08/14/20 10:56 Zinc Sulfate 220 Mg Cap PO 220 mg BID [place] Administration Nutrition/Malnutrition Assess - Dietary Evaluation Nutrition/Malnutrition Findings: Nutrition Notes Start: 07/29/20 09:47 Freq: Status: Active Protocol: Document 08/13/20 10:57 (Rec: 08/13/20 10:59 [id number]) Nutrition Notes Initial or Follow up Reassessment Current Diagnosis Acute Kidney Injury, Respiratory Failure Other Pertinent Diagnosis Acute encephalopathy, Pneu, UTI, Quadriplegia Current Diet NPO Labs/Tests K 3.5 BUN 51 Pertinent Medications Reviewed Height 6 ft Weight 73.5 kg [place] Body Weight (kg) 80.90 BMI 21.9 Weight Status Appropriate Subjective/Other Information FU for TF restart. Observed TF running at goal rate and per RN the pt is tolerating it. Percent of energy/protein needs met: 100%/100% Burn Absent Trauma Absent Current % PO Negligible Minimum of two criteria No Fluid Accumulation Moderate to Severe (severe) #2 Nutrition Diagnosis Increased nutrient needs ( specify in comment below) Diagnosis Progress(for reassessment Continues documentation) #1 Nutrition Diagnosis Inadequate oral intake Diagnosis Progress(for reassessment Continues documentation) Is patient on ventilator? Yes Is Patient Ambulatory and/or Out of Bed No REE-([place]. Jeor-confined to bed) [phone] Calculation Used for Recommendations [place] Additional Notes Pro needs 1.2-2g/k-163g/ day Fluid needs 1ml/kcal Nutrition Intervention Change Diet Order: Continue Nutrition Support: Continue Vital AF 1.2 at 65ml/ hr with 100 ml water flush q4h . Kcal 1,872 Protein (gm) 117 Fluid (mL) 1,265 Add Supplement/Snack (indicate name/kcal Reji BID /protein ) Provides kCal: 190 Provides Protein (gm) 5 Goal #1 TF tolerance Goal #2 TF to meet at least 80% energy and pro needs Anticipated Discharge Needs: Unable to determine at this time Follow-Up By: 08/17/20 Additional Comments FU for TF tolerance
--- NOTE | 2020-08-14 14:59 | XRay Report ---
CHEST 1 VIEW INDICATION: atelectasis. COMPARISON: 08/11/2020 FINDINGS: Support devices: Tracheostomy remains in good position. Heart: Within normal limits. Lungs/Pleura: Infiltrate throughout the lingula and left lower lobe appears increased since the previ ous exam. Patchy airspace densities at the right lung base are stable. Small to medium bilateral pleu ral effusions are identified which appear increased, particularly on the left side. No pneumothorax. Additional findings: None. IMPRESSION: Increased left lung infiltrate and bilateral pleural effusions as described. Signer Name: Kyle Tyler Jr, MD Signed: 08/14/2020 2:55 PM Workstation Name: [id number]
[2020-08-14] MEDS: FLUCONAZOLE 400 MG 200 ML IV SCH (15:05)
--- NOTE | 2020-08-14 15:56 | Progress Note ---
Assessment and Plan - Patient Problems (1) Bradycardia Current Visit: Yes Status: Acute Plan to address problem: No further bradycardia. An echocardiogram this presentation showed well-preserved left ventricular systolic function with ejection fraction 50 to 55%. Will continue supportive cardiac management. Subjective Date of service: 08/14/20 Principal diagnosis: Ac. encephalopathy; Ac. hypoxemic resp failure; Septic Shock; PNA; UTI; [place] Interval history: Patient is on mechanical ventilation via tracheostomy Currently, stable sinus rhythm on telemetry monitoring. Objective Vital Signs Temp Pulse Pulse Resp BP Pulse Ox Pulse Ox 08/14/20 15:49 98 F 08/14/20 12:13 99 H 162/66 94 08/14/20 12:00 99 F 08/14/20 10:57 95 H 151/62 08/14/20 08:56 92 H 156/63 97 08/14/20 08:53 96 H 173/71 99 08/14/20 07:54 98.9 F 08/14/20 06:00 87 29 H 177/51 96 08/14/20 05:00 101 H 30 H 177/51 97 08/14/20 04:00 88 86 31 H 177/51 96 08/14/20 03:55 97 08/14/20 03:47 87 154/63 97 08/14/20 03:13 98.2 F 08/14/20 03:00 91 H 29 H 177/51 99 08/14/20 02:00 87 20 177/51 99 08/14/20 01:00 94 H 31 H 177/51 98 08/14/20 00:00 83 86 27 H 177/51 98 08/13/20 23:41 99 F 08/13/20 23:00 88 30 H 177/51 96 08/13/20 22:54 81 26 H 177/51 97 08/13/20 22:00 98 H 31 H 177/51 97 08/13/20 21:18 103 H 150/63 08/13/20 21:00 87 24 177/51 96 08/13/20 20:00 89 86 28 H 177/51 94 08/13/20 19:38 98.4 F 08/13/20 19:21 88 152/65 95 08/13/20 19:00 99 H 32 H 202/43 93 08/13/20 18:00 88 27 H 190/48 94 08/13/20 17:00 102 H 33 H 182/50 94 08/13/20 16:00 98.2 F 86 86 30 H 177/47 94 - Physical Examination General: Other (On the vent, via tracheostomy) HEENT: Positive: Normocephaly Neck: Positive: Other (tracheostomy in place) Cardiac: Positive: Reg Rate and Rhythm Neuro: Positive: Weakness (History of quadriplegia), Other (On the vent, via tracheostomy) Extremities: Absent: edema - Labs and Meds CBC 08/14/20 Range/Units 13:01 WBC 7.2 (4.5-11.0) K/mm3 RBC 2.73 L (3.65-5.03) M/mm3 Hgb 7.7 L (11.8-15.2) gm/dl Hct 22.6 L (35.5-45.6) % Plt Count 176 (140-440) K/mm3 Comprehensive Metabolic Panel 08/14/20 Range/Units 13:01 Sodium 143 (137-145) mmol/L Potassium 3.7 (3.6-5.0) mmol/L Chloride 107.3 H (98-107) mmol/L Carbon Dioxide 25 (22-30) mmol/L BUN 49 H (9-20) mg/dL Creatinine 1.0 (0.8-1.3) mg/dL Glucose 191 H (75-100) mg/dL Calcium 7.9 L (8.4-10.2) mg/dL - Allied health notes Allied health notes reviewed: nursing
--- NOTE | 2020-08-14 17:59 | Ultrasound Report ---
ULTRASOUND CHEST HISTORY: Pleural effusions. FINDINGS: Bilateral ultrasound was performed. Bilateral pleural effusions are present with the right knee and small on the left being moderate. IMPRESSION: Bilateral pleural effusions left greater than right. Signer Name: Senthil Piña MD Signed: 08/14/2020 5:55 PM Workstation Name: [id number]
[2020-08-15] MEDS: FREE WATER PO SCH ×4 (03:00→16:34)
[2020-08-15 04:34] LABS: Hematocrit 24.6 % (35.5-45.6); Hemoglobin 8.3 gm/dl (11.8-15.2); Mean Corpuscular HGB Conc 34 % (32-34); Mean Corpuscular Volume 84 fl (84-94); Red Blood Count 2.94 M/mm3 (3.65-5.03); Red Cell Distribution Width 18.7 % (13.2-15.2)
[2020-08-15 04:46] LABS: Platelet Count 112 K/mm3 (140-440)
[2020-08-15 05:30] LABS: ABG Base Excess -0.8 mmol/L (-2.0-3.0); ABG HCO3 23.2 mmol/L (20.0-26.0); ABG Methemoglobin 0.4 % (0.0-1.5); ABG Oxygen Saturation 96.5 % (95.0-99.0); ABG PCO2 35.7 mm Hg; ABG PH 7.431 pH Units (7.350-7.450); ABG PO2 77.7 mm Hg (80.0-90.0)
[2020-08-15] MEDS: INSULIN LISPRO 100 UNIT/ML SUB-Q SCH ×4 (06:00→18:55)
[2020-08-15] MEDS: METOPROLOL TARTRATE 25 MG TAB PO SCH ×2 (09:40→21:22)
[2020-08-15] MEDS: FAMOTIDINE 20 MG TAB PO SCH ×2 (09:40→21:23)
[2020-08-15] MEDS: ENOXAPARIN 40 MG/0.4 ML INJ SUB-Q SCH (09:41)
[2020-08-15] MEDS: SENNOSIDES/DOCUSATE SODIUM 8.6/50 MG TAB FEEDTUBE SCH ×2 (09:41→21:23)
[2020-08-15] MEDS: amLODIPine 10 MG TAB PO SCH (09:41)
[2020-08-15] MEDS ORDERED: INSULIN GLARGINE 100 UNITS/ML SUB-Q SCH (10:00)
[2020-08-15] MEDS: DEXTROSE 50% IN WATER (25GM) 50 ML SYRINGE IV PRN (10:45)
[2020-08-15] MEDS: ASCORBIC ACID 500 MG TAB PO SCH ×2 (10:49→21:23)
[2020-08-15] MEDS: ZINC SULFATE 220 MG CAP PO SCH ×2 (10:50→21:23)
--- NOTE | 2020-08-15 10:57 | Progress Note ---
Assessment and Plan - Patient Problems (1) Bradycardia Current Visit: Yes Status: Acute Plan to address problem: No further bradycardia. An echocardiogram this presentation showed well-preserved left ventricular systolic function with ejection fraction 50 to 55%. Will continue supportive cardiac management. Subjective Date of service: 08/15/20 Principal diagnosis: Ac. encephalopathy; Ac. hypoxemic resp failure; Septic Shock; PNA; UTI; [place] Interval history: Patient is on mechanical ventilation via tracheostomy. Blood pressure is stable. Currently, stable sinus rhythm on telemetry monitoring. Objective Vital Signs Temp Pulse Pulse Resp BP Pulse Ox Pulse Ox 08/15/20 09:41 77 148/67 08/15/20 09:40 77 148/67 08/15/20 08:20 79 160/68 97 08/15/20 08:01 74 24 98 08/15/20 08:00 75 28 H 97 08/15/20 07:01 79 25 H 94 08/15/20 07:00 97.4 F L 08/15/20 06:01 87 26 H 99 08/15/20 05:01 83 26 H 98 08/15/20 04:14 93 H 144/85 100 08/15/20 04:01 77 26 H 99 08/15/20 04:00 82 78 28 H 97 08/15/20 03:30 97.8 F 08/15/20 03:01 78 26 H 97 08/15/20 02:01 85 26 H 97 08/15/20 01:01 78 28 H 98 08/15/20 00:36 80 140/58 98 08/15/20 00:01 80 26 H 98 08/15/20 00:00 86 86 28 H 97 08/14/20 23:56 97.9 F 08/14/20 23:01 78 25 H 98 08/14/20 22:01 84 28 H 98 08/14/20 21:45 89 142/57 08/14/20 21:00 82 24 98 08/14/20 20:20 86 134/56 99 08/14/20 20:00 98.3 F 85 85 28 H 97 08/14/20 19:01 89 25 H 100 08/14/20 18:35 87 24 100 08/14/20 18:01 97 H 20 99 08/14/20 17:54 100 08/14/20 17:50 93 H 151/62 98 08/14/20 17:00 93 H 27 H 177/51 99 08/14/20 16:00 97 H 97 H 28 H 177/51 98 08/14/20 15:49 98 F 08/14/20 15:00 92 H 27 H 177/51 99 08/14/20 14:00 79 27 H 177/51 08/14/20 13:00 93 H 28 H 177/51 98 08/14/20 12:13 99 H 162/66 94 08/14/20 12:00 99 F 93 H 93 H 28 H 177/51 95 08/14/20 11:00 92 H 29 H 177/51 95 08/14/20 10:57 95 H 151/62 - Physical Examination General: Other (On the vent, via tracheostomy) HEENT: Positive: Normocephaly Neck: Positive: Other (tracheostomy in place) Cardiac: Positive: Reg Rate and Rhythm Neuro: Positive: Other (On the vent, via tracheostomy; History of quadriplegia) Abdomen: Positive: Soft Skin: Positive: Clear - Labs and Meds CBC 08/14/20 08/15/20 Range/Units 13:01 04:04 WBC 7.2 7.6 (4.5-11.0) K/mm3 RBC 2.73 L 2.94 L (3.65-5.03) M/mm3 Hgb 7.7 L 8.3 L (11.8-15.2) gm/dl Hct 22.6 L 24.6 L (35.5-45.6) % Plt Count 176 112 L (140-440) K/mm3 Comprehensive Metabolic Panel 08/14/20 Range/Units 13:01 Sodium 143 (137-145) mmol/L Potassium 3.7 (3.6-5.0) mmol/L Chloride 107.3 H (98-107) mmol/L Carbon Dioxide 25 (22-30) mmol/L BUN 49 H (9-20) mg/dL Creatinine 1.0 (0.8-1.3) mg/dL Glucose 191 H (75-100) mg/dL Calcium 7.9 L (8.4-10.2) mg/dL - Allied health notes Allied health notes reviewed: nursing
[2020-08-15 11:21] LABS: BUN/Creatinine Ratio 47; Blood Urea Nitrogen 47 mg/dL (9-20); Calcium 8.3 mg/dL (8.4-10.2); Hemolysis Index 2
[2020-08-15 11:23] LABS: INR 1.09 (0.87-1.13)
--- NOTE | 2020-08-15 11:43 | Progress Note ---
Assessment and Plan Cultures: 07/28/2020 blood culture: C albicans 07/28/2020 urine culture: No growth COVID PCR: negative 07/31/2020 blood culture: Coag negative staph in 1 of 4 bottles (contaminant) 08/02/2020 blood culture: No growth 08/06/2020 Resp culture: normal resp hawk 08/06/2020 BAL AFB stain: negative 08/06/2020 BAL fungal culture: stain positive, culture in process. A/P: 69-year-old senior care resident with quadriplegia, spinal cord injury, was brought in due to fever and sepsis: #Septic shock: Resolved likely due to candidemia +/-pneumonia. #Candidemia: Unclear source. ?IV line. Transthoracic echo without vegetation. Repeat blood culture no growth. Completed fluconazole course. #Pneumonia: CT chest showed patchy airspace disease suggestive of possible aspiration. Chest x-ray with left lung whiteout, got bronch with suctioning of mucous plug, cultures with normal resp hawk. #B/L pleural effusions #UTI with chronic indwelling catheter #Acute hypoxic respiratory failure: On mechanical ventilation. #Transaminitis: Likely sepsis/shock related. Improved. #Sacral decubitus ulcer: Does not appear infected. Continue wound care. Recs: -continue off anti-microbials -f/u thoracentesis results Dominga Simmons MD, FACP [facility] ([facility] O: [phone] F: [phone] Subjective Date of service: 08/15/20 Principal diagnosis: Ac. encephalopathy; Ac. hypoxemic resp failure; Septic Shock; PNA; UTI; [place] Interval history: No fever. Remains on the vent via trach. Remains off abx. Objective - Exam Narrative Exam: Physical Exam: Constitutional: eyes open, doesnt follow commands, on the vent via trach Head, Ears, Nose: Normocephalic, atraumatic. External ears, nose normal Eyes: Conjunctivae/corneas clear. No icterus. No ptosis. Neck: trach + Cardiovascular: S1, S2 + Respiratory: AE decreased in the bases GI: Soft, bowel sounds +, G tube + Musculoskeletal: pedal edema + Skin: No rash or abscess Hem/Lymphatic: No palpable cervical or supraclavicular nodes. No lymphangitis Psych: no agitation Neurological: eyes open, doesn't follow commands - Constitutional Vitals: Vital Signs Temp Pulse Resp BP Pulse Ox 97.4 F L 77 24 148/67 97 08/15/20 07:00 08/15/20 09:41 08/15/20 08:01 08/15/20 09:41 08/15/20 08:20 Temperature -Last 24 Hours Temperature 97.4 F Temperature 97.8 F Temperature 97.9 F Temperature 98.3 F Temperature 98 F Temperature 99 F - Labs CBC & Chem 7: 08/15/20 04:04 08/15/20 10:28 Labs: Abnormal lab results 08/12/20 08/14/20 08/14/20 Range/Units 04:43 12:05 13:01 RBC 2.73 L (3.65-5.03) M/mm3 Hgb 7.7 L (11.8-15.2) gm/dl Hct 22.6 L (35.5-45.6) % MCV 83 L (84-94) fl RDW 18.4 H (13.2-15.2) % Plt Count (140-440) K/mm3 Haptoglobin 420 H (43-212) mg/dL ABG pO2 75.1 L (80.0-90.0) mm Hg ABG Hemoglobin 7.7 L (14.0-18.0) gm/dl Oxyhemoglobin 94.8 L (95.0-99.0) % Chloride (98-107) mmol/L BUN (9-20) mg/dL Glucose (75-100) mg/dL POC Glucose (70-105) mg/dL Calcium (8.4-10.2) mg/dL 08/14/20 08/14/20 08/14/20 Range/Units 13:01 17:55 23:25 RBC (3.65-5.03) M/mm3 Hgb (11.8-15.2) gm/dl Hct (35.5-45.6) % MCV (84-94) fl RDW (13.2-15.2) % Plt Count (140-440) K/mm3 Haptoglobin (43-212) mg/dL ABG pO2 (80.0-90.0) mm Hg ABG Hemoglobin (14.0-18.0) gm/dl Oxyhemoglobin (95.0-99.0) % Chloride 107.3 H (98-107) mmol/L BUN 49 H (9-20) mg/dL Glucose 191 H (75-100) mg/dL POC Glucose 178 H 150 H (70-105) mg/dL Calcium 7.9 L (8.4-10.2) mg/dL 08/15/20 08/15/20 08/15/20 Range/Units 04:04 10:28 10:38 RBC 2.94 L (3.65-5.03) M/mm3 Hgb 8.3 L (11.8-15.2) gm/dl Hct 24.6 L (35.5-45.6) % MCV (84-94) fl RDW 18.7 H (13.2-15.2) % Plt Count 112 L (140-440) K/mm3 Haptoglobin (43-212) mg/dL ABG pO2 (80.0-90.0) mm Hg ABG Hemoglobin (14.0-18.0) gm/dl Oxyhemoglobin (95.0-99.0) % Chloride 107.4 H (98-107) mmol/L BUN 47 H (9-20) mg/dL Glucose 51 L (75-100) mg/dL POC Glucose 44 L (70-105) mg/dL Calcium 8.3 L (8.4-10.2) mg/dL 08/15/20 Range/Units Unknown RBC (3.65-5.03) M/mm3 Hgb (11.8-15.2) gm/dl Hct (35.5-45.6) % MCV (84-94) fl RDW (13.2-15.2) % Plt Count (140-440) K/mm3 Haptoglobin (43-212) mg/dL ABG pO2 77.7 L (80.0-90.0) mm Hg ABG Hemoglobin 9.2 L (14.0-18.0) gm/dl Oxyhemoglobin 94.9 L (95.0-99.0) % Chloride (98-107) mmol/L BUN (9-20) mg/dL Glucose (75-100) mg/dL POC Glucose (70-105) mg/dL Calcium (8.4-10.2) mg/dL
--- NOTE | 2020-08-15 11:46 | Progress Note ---
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 applic 07/28/20 09:30 Lip Therapy Vaseline TP Q2H PRN Dry Lips Insulin Glargine 30 units 08/15/20 10:00 08/15/20 09:41 Insulin Glargine 100 Units/Ml SUB-Q Not Given QDAY [facility] Insulin Human Lispro 0 unit 08/04/20 12:00 08/15/20 06:00 Insulin Lispro 100 Unit/Ml SUB-Q Not Given Q6HR [facility] Protocol Metoprolol Tartrate 25 mg 08/14/20 22:00 08/15/20 09:40 Metoprolol Tartrate 25 Mg Tab PO 25 mg BID [place] Administration Multi-Ingred Cream/Lotion/Oil/Oint 1 applic 07/28/20 09:30 Mineral Oil/Petrolatum, White Ophth Oint 3.5 Gm OU Q4H PRN Dry Eye(s) Scopolamine 1 each 08/07/20 13:00 08/13/20 09:54 Scopolamine Transdermal Patch 72 Hr TD 1 each Q3D [place] Administration Senna/Docusate Sodium 1 tab 07/28/20 22:00 08/15/20 09:41 Sennosides/Docusate Sodium 8.6/50 Mg Tab FEEDTUBE 1 tab BID [place] Administration Simple Syrup 15 ml 07/29/20 09:55 Simple Syrup 15 Ml FEEDTUBE PRN PRN Hypoglycemia Simple Syrup 30 ml 07/29/20 09:55 Simple Syrup 15 Ml FEEDTUBE PRN PRN Hypoglycemia Sodium Bicarbonate 325 mg 07/29/20 09:55 Sodium Bicarbonate 325 Mg Tab FEEDTUBE PRN PRN For Clogged Feeding Tube Sodium Chloride 10 ml 07/28/20 22:00 08/15/20 10:45 Sodium Chloride 0.9% 10 Ml Flush Syringe IV 10 ml BID [place] Administration Sodium Chloride 10 ml 07/28/20 14:27 Sodium Chloride 0.9% 10 Ml Flush Syringe IV PRN PRN LINE FLUSH Zinc Sulfate 220 mg 08/01/20 15:00 08/15/20 10:50 Zinc Sulfate 220 Mg Cap PO 220 mg BID [place] Administration Nutrition/Malnutrition Assess - Dietary Evaluation Nutrition/Malnutrition Findings: Nutrition Notes Start: 07/29/20 09:47 Freq: Status: Active Protocol: Document 08/13/20 10:57 (Rec: 08/13/20 10:59 [id number]) Nutrition Notes Initial or Follow up Reassessment Current Diagnosis Acute Kidney Injury, Respiratory Failure Other Pertinent Diagnosis Acute encephalopathy, Pneu, UTI, Quadriplegia Current Diet NPO Labs/Tests K 3.5 BUN 51 Pertinent Medications Reviewed Height 6 ft Weight 73.5 kg [place] Body Weight (kg) 80.90 BMI 21.9 Weight Status Appropriate Subjective/Other Information FU for TF restart. Observed TF running at goal rate and per RN the pt is tolerating it. Percent of energy/protein needs met: 100%/100% Burn Absent Trauma Absent Current % PO Negligible Minimum of two criteria No Fluid Accumulation Moderate to Severe (severe) #2 Nutrition Diagnosis Increased nutrient needs ( specify in comment below) Diagnosis Progress(for reassessment Continues documentation) #1 Nutrition Diagnosis Inadequate oral intake Diagnosis Progress(for reassessment Continues documentation) Is patient on ventilator? Yes Is Patient Ambulatory and/or Out of Bed No REE-(Ernul-St. Jeor-confined to bed) [phone] Calculation Used for Recommendations Ernul-St Jeor Additional Notes Pro needs 1.2-2g/k-163g/ day Fluid needs 1ml/kcal Nutrition Intervention Change Diet Order: Continue Nutrition Support: Continue Vital AF 1.2 at 65ml/ hr with 100 ml water flush q4h . Kcal 1,872 Protein (gm) 117 Fluid (mL) 1,265 Add Supplement/Snack (indicate name/kcal Reji BID /protein ) Provides kCal: 190 Provides Protein (gm) 5 Goal #1 TF tolerance Goal #2 TF to meet at least 80% energy and pro needs Anticipated Discharge Needs: Unable to determine at this time Follow-Up By: 08/17/20 Additional Comments FU for TF tolerance <DARI GIPSON - Last Filed: 08/16/20 15:58> Assessment and Plan Assessment and plan: Agree with assessment and plan as outlined by nurse practitioner as above. Patient has fluid in his lungs, needs thoracentesis. Hospitalist Physical - Constitutional Vitals: Temp Pulse Resp BP Pulse Ox 97.5 F L 75 20 132/69 98 08/16/20 12:00 08/16/20 15:19 08/16/20 15:19 08/16/20 15:19 08/16/20 15:19 HEART Score - HEART Score Troponin: Troponin T 0.115 ng/mL (0.00-0.029) H* 07/28/20 08:48 Results - Labs CBC & Chem 7: 08/16/20 08:02 08/16/20 08:02 Labs: Laboratory Last Values WBC 4.1 K/mm3 (4.5-11.0) L 08/16/20 08:02 RBC 2.70 M/mm3 (3.65-5.03) L 08/16/20 08:02 Hgb 7.6 gm/dl (11.8-15.2) L 08/16/20 08:02 Hct 22.9 % (35.5-45.6) L 08/16/20 08:02 MCV 85 fl (84-94) 08/16/20 08:02 MCH 28 pg (28-32) 08/16/20 08:02 MCHC 33 % (32-34) 08/16/20 08:02 RDW 18.5 % (13.2-15.2) H 08/16/20 08:02 Plt Count 184 K/mm3 (140-440) 08/16/20 08:02 Lymph % (Auto) Nuclear Technician 07/28/20 08:48 [place] % (Auto) Nuclear Technician 07/28/20 08:48 Eos % (Auto) Nuclear Technician 07/28/20 08:48 Baso % (Auto) Nuclear Technician 07/28/20 08:48 Lymph # (Auto) Nuclear Technician 07/28/20 08:48 [place] # (Auto) Nuclear Technician 07/28/20 08:48 Eos # (Auto) Nuclear Technician 07/28/20 08:48 Baso # (Auto) Nuclear Technician 07/28/20 08:48 Add Manual Diff Complete 08/12/20 04:53 Total Counted 100 08/12/20 04:53 Seg Neutrophils % Nuclear Technician 08/05/20 08:48 Seg Neuts % (Manual) 88.0 % (40.0-70.0) H 08/12/20 04:53 Band Neutrophils % 2.0 % 08/12/20 04:53 Lymphocytes % (Manual) 6.0 % (13.4-35.0) L 08/12/20 04:53 Reactive Lymphs % (Man) 1.0 % 08/05/20 08:48 Monocytes % (Manual) 4.0 % (0.0-7.3) 08/12/20 04:53 Metamyelocytes % 14.0 % 07/29/20 Unknown Nucleated RBC % Not Reportable 08/12/20 04:53 Seg Neutrophils # Nuclear Technician 07/28/20 08:48 Seg Neutrophils # Man 5.5 K/mm3 (1.8-7.7) 08/12/20 04:53 Band Neutrophils # 0.1 K/mm3 08/12/20 04:53 Lymphocytes # (Manual) 0.4 K/mm3 (1.2-5.4) L 08/12/20 04:53 Abs React Lymphs (Man) 0.0 K/mm3 08/12/20 04:53 Monocytes # (Manual) 0.2 K/mm3 (0.0-0.8) 08/12/20 04:53 Eosinophils # (Manual) 0.0 K/mm3 (0.0-0.4) 08/12/20 04:53 Basophils # (Manual) 0.0 K/mm3 (0.0-0.1) 08/12/20 04:53 Metamyelocytes # 0.0 K/mm3 08/12/20 04:53 Myelocytes # 0.0 K/mm3 08/12/20 04:53 Promyelocytes # 0.0 K/mm3 08/12/20 04:53 Blast Cells # 0.0 K/mm3 08/12/20 04:53 WBC Morphology Not Reportable 08/12/20 04:53 Hypersegmented Neuts Not Reportable 08/12/20 04:53 Hyposegmented Neuts Not Reportable 08/12/20 04:53 Hypogranular Neuts Not Reportable 08/12/20 04:53 Smudge Cells Not Reportable 08/12/20 04:53 Toxic Granulation Not Reportable 08/12/20 04:53 Toxic Vacuolation Not Reportable 08/12/20 04:53 Dohle Bodies Not Reportable 08/12/20 04:53 Pelger-Huet Anomaly Not Reportable 08/12/20 04:53 Janna Rods Not Reportable 08/12/20 04:53 Platelet Estimate Not Reportable 08/12/20 04:53 Clumped Platelets Not Reportable 08/12/20 04:53 Plt Clumps, EDTA Not Reportable 08/12/20 04:53 Large Platelets Not Reportable 08/12/20 04:53 Giant Platelets Not Reportable 08/12/20 04:53 Platelet Satelliting Not Reportable 08/12/20 04:53 Plt Morphology Comment Not Reportable 08/12/20 04:53 RBC Morphology Not Reportable 08/12/20 04:53 Dimorphic RBCs Not Reportable 08/12/20 04:53 Polychromasia Not Reportable 08/12/20 04:53 Hypochromasia 1+ 08/12/20 04:53 Poikilocytosis Not Reportable 08/12/20 04:53 Anisocytosis 1+ 08/12/20 04:53 Microcytosis Not Reportable 08/12/20 04:53 Macrocytosis Not Reportable 08/12/20 04:53 Spherocytes Not Reportable 08/12/20 04:53 Pappenheimer Bodies Not Reportable 08/12/20 04:53 Sickle Cells Not Reportable 08/12/20 04:53 Target Cells Few 08/12/20 04:53 Tear Drop Cells Not Reportable 08/12/20 04:53 Ovalocytes Not Reportable 08/12/20 04:53 Helmet Cells Not Reportable 08/12/20 04:53 Ramirez-Loyall Bodies Not Reportable 08/12/20 04:53 [place] Rings Not Reportable 08/12/20 04:53 [place] Cells Not Reportable 08/12/20 04:53 Bite Cells Not Reportable 08/12/20 04:53 Crenated Cell Not Reportable 08/12/20 04:53 Elliptocytes Not Reportable 08/12/20 04:53 Acanthocytes (Spur) Not Reportable 08/12/20 04:53 Rouleaux Not Reportable 08/12/20 04:53 Hemoglobin C Crystals Not Reportable 08/12/20 04:53 Schistocytes Not Reportable 08/12/20 04:53 Malaria parasites Not Reportable 08/12/20 04:53 Percent Retic 1.65 % (0.78-2.58) 08/12/20 04:53 Lito Bodies Not Reportable 08/12/20 04:53 Haptoglobin 420 mg/dL (43-212) H 08/12/20 04:43 Hem Pathologist Commnt No 08/12/20 04:53 PT 14.7 Sec. (12.2-14.9) 08/15/20 10:28 INR 1.09 (0.87-1.13) 08/15/20 10:28 APTT 34.7 Sec. (24.2-36.6) 07/28/20 08:48 Heparin Anti-Xa, Unfract Negative (Negative) 08/01/20 23:40 ABG pH 7.431 pH Units (7.350-7.450) 08/15/20 Unknown POC ABG pCO2 46.9 mmHg (32.0-48.0) 08/11/20 22:13 ABG pCO2 35.7 mm Hg 08/15/20 Unknown POC ABG pO2 163.6 mmHg (83-108) H 08/11/20 22:13 ABG pO2 77.7 mm Hg (80.0-90.0) L 08/15/20 Unknown POC ABG HCO3 25.5 08/11/20 22:13 ABG HCO3 23.2 mmol/L (20.0-26.0) 08/15/20 Unknown ABG O2 Saturation 96.5 % (95.0-99.0) 08/15/20 Unknown ABG O2 Content 12.3 (0.0-44) 08/15/20 Unknown POC ABG Base Excess -0.1 08/11/20 22:13 ABG Base Excess -0.8 mmol/L (-2.0-3.0) 08/15/20 Unknown ABG Hemoglobin 9.2 gm/dl (14.0-18.0) L 08/15/20 Unknown ABG Oxyhemoglobin 98.3 (94-98) H 08/11/20 22:13 ABG Carboxyhemoglobin 1.2 % (0.0-5.0) 08/15/20 Unknown ABG Methemoglobin 0.4 % (0.0-1.5) 08/15/20 Unknown ABG Sodium 143.9 mmol/L (136.0-145.0) 08/11/20 22:13 ABG Potassium 3.6 mmol/L (3.40-4.50) 08/11/20 22:13 ABG Chloride 112.0 mmol/L (98-107) H 08/11/20 22:13 ABG Glucose 119 mg/dL (65-95) H 08/11/20 22:13 VBG pH 7.377 (7.320-7.420) 07/28/20 09:44 Oxyhemoglobin 94.9 % (95.0-99.0) L 08/15/20 Unknown Carboxyhemoglobin 0.9 (0.5-1.5) 08/11/20 22:13 FiO2 60 % 08/15/20 Unknown FiO2 % 100.0 08/11/20 22:13 Sodium 143 mmol/L (137-145) 08/16/20 08:02 Potassium 3.8 mmol/L (3.6-5.0) 08/16/20 08:02 Chloride 110.1 mmol/L (98-107) H 08/16/20 08:02 Carbon Dioxide 24 mmol/L (22-30) 08/16/20 08:02 Anion Gap 13 mmol/L 08/16/20 08:02 BUN 45 mg/dL (9-20) H 08/16/20 08:02 Creatinine 0.9 mg/dL (0.8-1.3) 08/16/20 08:02 Estimated GFR > 60 ml/min 08/16/20 08:02 BUN/Creatinine Ratio 50 % 08/16/20 08:02 Glucose 187 mg/dL (75-100) H 08/16/20 08:02 POC Glucose 126 mg/dL (70-105) H 08/16/20 12:28 Hemoglobin A1c 8.8 % (4-6) H 08/01/20 04:30 Lactic Acid 1.60 mmol/L (0.7-2.0) 07/30/20 05:45 Calcium 7.7 mg/dL (8.4-10.2) L 08/16/20 08:02 Ionized Calcium 4.2 mg/dL (4.8-5.6) L 07/30/20 19:01 Phosphorus 2.90 mg/dL (2.5-4.5) D 08/04/20 03:00 Magnesium 2.30 mg/dL (1.7-2.3) 08/02/20 Unknown Total Bilirubin 0.20 mg/dL (0.1-1.2) 08/12/20 04:43 Direct Bilirubin < 0.2 mg/dL (0-0.2) 08/12/20 04:43 Indirect Bilirubin 0.0 mg/dL 08/12/20 04:43 AST 57 units/L (5-40) H 08/12/20 04:43 ALT 33 units/L (7-56) 08/12/20 04:43 Alkaline Phosphatase 288 units/L (35-129) H 08/12/20 04:43 Ammonia 63.0 umol/L (25-60) H 07/28/20 08:48 Lactate Dehydrogenase 239 units/L (91-180) H 08/12/20 04:43 Total Creatine Kinase 486 units/L (55-170) H 07/28/20 08:48 Troponin T 0.115 ng/mL (0.00-0.029) H* 07/28/20 08:48 C-Reactive Protein 9.00 mg/dL (0.00-1.30) H 07/28/20 19:50 Total Protein 6.0 g/dL (6.3-8.2) L 08/12/20 04:43 Albumin 1.7 g/dL (3.9-5) L 08/12/20 04:43 Albumin/Globulin Ratio 0.4 % 08/12/20 04:43 Triglycerides 184 mg/dL (2-149) H 08/04/20 03:00 Cholesterol 80 mg/dL (50-199) 07/28/20 08:48 LDL Cholesterol Direct 44 mg/dL (50-130) L 07/28/20 08:48 HDL Cholesterol 26 mg/dL (40-59) L 07/28/20 08:48 Cholesterol/HDL Ratio 3.07 % 07/28/20 08:48 Serotonin Release Assay See scanned result 08/01/20 23:40 Procalcitonin 177.82 ng/mL (<0.15) 07/28/20 19:50 TSH 2.450 mlU/mL (0.270-4.200) 07/28/20 08:48 Arterial Blood Glucose 119 mg/dL (65-95) H 08/11/20 22:13 Arterial Blood Ionized Calcium 4.4 mg/dL (4.6-5.3) L 08/11/20 22:13 Urine Color [place] (Yellow) 07/28/20 Unknown Urine Turbidity Cloudy (Clear) 07/28/20 Unknown Urine pH 5.0 (5.0-7.0) 07/28/20 Unknown Ur Specific [place] 1.018 (1.003-1.030) 07/28/20 Unknown Urine Protein 100 mg/dl mg/dL (Negative) 07/28/20 Unknown Urine Glucose (UA) Neg mg/dL (Negative) 07/28/20 Unknown Urine Ketones Neg mg/dL (Negative) 07/28/20 Unknown Urine Blood Lg (Negative) 07/28/20 Unknown Urine Nitrite Neg (Negative) 07/28/20 Unknown Urine Bilirubin Neg (Negative) 07/28/20 Unknown Urine Urobilinogen 2.0 mg/dL (<2.0) 07/28/20 Unknown Ur Leukocyte Esterase Lg (Negative) 07/28/20 Unknown Urine WBC (Auto) > 182.0 /HPF (0.0-6.0) H 07/28/20 Unknown Urine RBC (Auto) 30.0 /HPF (0.0-6.0) 07/28/20 Unknown U Epithel Cells (Auto) 2.0 /HPF (0-13.0) 07/28/20 Unknown Urine Bacteria (Auto) 1+ /HPF (Negative) 07/28/20 Unknown Ur Transition Epith Cell 4 /HPF 07/28/20 Unknown Hyaline Casts 5 /LPF 07/28/20 Unknown Urine Mucus Few /HPF 07/28/20 Unknown Nasal Screen MRSA (PCR) Negative (Negative) 07/29/20 Unknown Salicylates < 0.3 mg/dL (2.8-20.0) L 07/28/20 09:44 Plasma/Serum Alcohol < 0.01 % (0-0.07) 07/28/20 09:44 Heparin-induced Plt Ab Negative (Negative) 08/01/20 23:40 UF Heparin High Dose 0 % Release 08/01/20 23:40 DEISY UFH Low Dose 0.1 0 % Release 08/01/20 23:40 DEISY UFH Low Dose 0.5 0 % Release 08/01/20 23:40 Coronavirus (PCR) Negative (Negative) 07/29/20 09:15 AFB Identification 08/06/20 11:55 Fungal Id Prelim Positive 08/06/20 11:55 Blood Type O POSITIVE 08/10/20 18:08 Antibody Screen Negative 08/10/20 18:08 Crossmatch See Detail 08/10/20 18:08 Ashley/IV: Voiding Method Indwelling Catheter Active Medications - Current Medications Current Medications: Generic Name Dose Route Start Last Admin Trade Name Freq PRN Reason Stop Dose Admin Acetaminophen 650 mg 07/28/20 14:27 08/08/20 21:50 Acetaminophen 325 Mg Tab PO 650 mg Q6H PRN Administration Pain, Mild (1-3) Albuterol 2.5 mg 07/28/20 14:27 08/05/20 14:27 Albuterol 2.5 Mg/3 Ml Nebu IH 2.5 mg Q3H PRN Administration Shortness Of Breath Amlodipine Besylate 10 mg 08/15/20 10:00 08/16/20 09:15 Amlodipine 10 Mg Tab PO 10 mg QDAY [place] Administration Lipase/Protease/Amylase 1 each 07/29/20 09:55 Lipase 10,500/Protease 25,000/Amylase 43,750 (Units) Dr Velasquez FEEDTUBE PRN PRN For Clogged Feeding Tube Ascorbic Acid 500 mg 08/01/20 22:00 08/16/20 09:15 Ascorbic Acid 500 Mg Tab PO 500 mg BID [place] Administration Bisacodyl 10 mg 08/16/20 14:28 Bisacodyl 10 Mg Rect Supp [place] QDAY PRN Constipation Dextrose 50 ml 07/29/20 15:46 08/15/20 10:45 Dextrose 50% In Water (25gm) 50 Ml Syringe IV 50 ml Q30MIN PRN Administration Hypoglycemia Protocol Enoxaparin Sodium 40 mg 08/17/20 10:00 Enoxaparin 40 Mg/0.4 Ml Inj SUB-Q QDAY@1000 [facility] Famotidine 20 mg 07/30/20 10:00 08/16/20 09:15 Famotidine 20 Mg Tab PO 20 mg BID [place] Administration Hydralazine HCl 10 mg 08/07/20 10:49 Hydralazine 20 Mg/1 Ml Inj IV Q4HR PRN Give if SBP>180 DBP>100 Hydromorphone HCl 1 mg 08/07/20 12:28 08/12/20 18:19 Hydromorphone 1 Mg/1 Ml Inj IV 1 mg Q4H PRN Administration Pain , Severe (7-10) Hydrophilic Ointment 1 applic 07/28/20 09:30 Lip Therapy Vaseline TP Q2H PRN Dry Lips Dextrose/Sodium Chloride 1,000 mls @ 42 mls/hr 08/16/20 14:00 D5ns IV DIRECT [facility] Insulin Human Lispro 0 unit 08/04/20 12:00 08/16/20 12:02 Insulin Lispro 100 Unit/Ml SUB-Q Not Given Q6HR [facility] Protocol Metoprolol Tartrate 25 mg 08/14/20 22:00 08/16/20 09:16 Metoprolol Tartrate 25 Mg Tab PO 25 mg BID [place] Administration Multi-Ingred Cream/Lotion/Oil/Oint 1 applic 07/28/20 09:30 Mineral Oil/Petrolatum, White Ophth Oint 3.5 Gm OU Q4H PRN Dry Eye(s) Scopolamine 1 each 08/07/20 13:00 08/16/20 09:15 Scopolamine Transdermal Patch 72 Hr TD 1 each Q3D [place] Administration Senna/Docusate Sodium 1 tab 07/28/20 22:00 08/16/20 09:15 Sennosides/Docusate Sodium 8.6/50 Mg Tab FEEDTUBE 1 tab BID [place] Administration Simple Syrup 15 ml 07/29/20 09:55 Simple Syrup 15 Ml FEEDTUBE PRN PRN Hypoglycemia Simple Syrup 30 ml 07/29/20 09:55 Simple Syrup 15 Ml FEEDTUBE PRN PRN Hypoglycemia Sodium Bicarbonate 325 mg 07/29/20 09:55 Sodium Bicarbonate 325 Mg Tab FEEDTUBE PRN PRN For Clogged Feeding Tube Sodium Chloride 10 ml 07/28/20 22:00 08/16/20 09:16 Sodium Chloride 0.9% 10 Ml Flush Syringe IV 10 ml BID [place] Administration Sodium Chloride 10 ml 07/28/20 14:27 Sodium Chloride 0.9% 10 Ml Flush Syringe IV PRN PRN LINE FLUSH Zinc Sulfate 220 mg 08/01/20 15:00 08/16/20 09:15 Zinc Sulfate 220 Mg Cap PO 220 mg BID [place] Administration Nutrition/Malnutrition Assess - Dietary Evaluation Nutrition/Malnutrition Findings: Nutrition Notes Start: 07/29/20 09:47 Freq: Status: Active Protocol: Document 08/13/20 10:57 (Rec: 08/13/20 10:59 [id number]) Nutrition Notes Initial or Follow up Reassessment Current Diagnosis Acute Kidney Injury, Respiratory Failure Other Pertinent Diagnosis Acute encephalopathy, Pneu, UTI, Quadriplegia Current Diet NPO Labs/Tests K 3.5 BUN 51 Pertinent Medications Reviewed Height 6 ft Weight 73.5 kg [place] Body Weight (kg) 80.90 BMI 21.9 Weight Status Appropriate Subjective/Other Information FU for TF restart. Observed TF running at goal rate and per RN the pt is tolerating it. Percent of energy/protein needs met: 100%/100% Burn Absent Trauma Absent Current % PO Negligible Minimum of two criteria No Fluid Accumulation Moderate to Severe (severe) #2 Nutrition Diagnosis Increased nutrient needs ( specify in comment below) Diagnosis Progress(for reassessment Continues documentation) #1 Nutrition Diagnosis Inadequate oral intake Diagnosis Progress(for reassessment Continues documentation) Is patient on ventilator? Yes Is Patient Ambulatory and/or Out of Bed No REE-(Ernul-St. Jeor-confined to bed) [phone] Calculation Used for Recommendations Ernul-St Jeor Additional Notes Pro needs 1.2-2g/k-163g/ day Fluid needs 1ml/kcal Nutrition Intervention Change Diet Order: Continue Nutrition Support: Continue Vital AF 1.2 at 65ml/ hr with 100 ml water flush q4h . Kcal 1,872 Protein (gm) 117 Fluid (mL) 1,265 Add Supplement/Snack (indicate name/kcal Reji BID /protein ) Provides kCal: 190 Provides Protein (gm) 5 Goal #1 TF tolerance Goal #2 TF to meet at least 80% energy and pro needs Anticipated Discharge Needs: Unable to determine at this time Follow-Up By: 08/17/20 Additional Comments FU for TF tolerance
[2020-08-15] MEDS ORDERED: D5W/0.9% NACL 1,000 ML IV SCH (12:00)
--- NOTE | 2020-08-15 13:32 | Progress Note ---
Assessment and Plan Acute possibly on chronic toxic metabolic encephalopathy Acute hypoxemic respiratory failure on MVS Severe sepsis with shock, presumably secondary to aspiration pneumonia Recent upper ext DVT (06/06) Aspiration pneumonia, bilateral Urinary tract infection History of quadriplegia Leukocytosis Anemia that is microcytic Coagulopathy. INR 2.17 at presentation Mild hypokalemia Acute kidney injury Metabolic lactic acidosis Non-ST elevation myocardial infarction Adult failure to thrive Moderate to severe protein calorie malnutrition - follow thoracentesis / fluid studies (therapeutic; with cell count and differential sent re: ? Hemothorax) - reduce peep to 8 - hold Lovenox re: thrombocytopenia and thoracentesis; will re-evaluate in am - hold Lantus re: hypoglycemic episode overnight while NPO - ashley catheter changed out (chronic indwelling) - LTAC evaluation ongoing - continue care as below otherwise; - prn Levophed for target MAP > 65 mmHg - continue to wean supplemental oxygen for target O2 sat's > 90% acutely - VAP bundle addressed - continue lung protective strategies - continue bronchodilators with routine trach care and pulmonary hygiene per RT - wean per pulmonary driven protocols otherwise - avoid nephrotoxins, renally dose all medications - continue to avoid benzodiazepine's, reduce the possibility of delirium - complete antiinfective's per ID rec's (Diflucan to end tomorrow) - prn analgesia per CPOT score - Maintenance of sleep-wake cycle, avoid delirium - continue enteral nutritional support at goal rate as tolerated - G.I. & VTE prophylaxis - PT/OT/ROM exercises - continue mobility protocols for pressure ulcer prophylaxis - Monitor hemodynamics closely - continue other care per attending / other consultants - discharge planning ongoing concurrently COVID SPECIFIC INTERVENTIONS: - COVID test result negative .... Re-evaluate in am & prn CONDITION: CRITICAL PROGNOSIS: GUARDED CODE STATUS: FULL CODE The high probability of a clinically significant, sudden or life-threatening deterioration of the [respiratory, cardiovascular & neurologic] system(s) requ ired my full and direct attention, intervention and personal management. The aggregate critical care time was [32] minutes without overlap. Time includes spent on; [x] Data Review and interpretation [x] Patient assessment and monitoring of vital signs [x] Documentation [x] Medication orders and management Subjective Date of service: 08/15/20 Principal diagnosis: Ac. encephalopathy; Ac. hypoxemic resp failure; Septic Shock; PNA; UTI; JEFFERSON Interval history: Patient is seen today for: Acute encephalopathy; Acute hypoxemic respiratory failure; Septic Shock; Aspiration pneumonia; UTI; quadriplegia; JEFFERSON Seen and examined at bedside; 24hour events reviewed; nursing and respiratory care staff consulted; no adverse overnight events reported to me; resting in bed; remains on MVS; FiO2 is down to 40% with peep at 10; oropharyngeal secretions increased; no emesis or overt aspiration; tentatively for thoracentesis today; platelets trending lower Objective Vital Signs - 12hr 08/15/20 08/15/20 08/15/20 02:01 03:01 03:30 Temperature 97.8 F Pulse Rate 85 78 Pulse Rate [ From Monitor] Respiratory 26 H 26 H Rate Blood Pressure O2 Sat by Pulse 97 97 Oximetry O2 Sat by Pulse Oximetry [ Assessment] 08/15/20 08/15/20 08/15/20 04:00 04:01 04:14 Temperature Pulse Rate 82 77 93 H Pulse Rate [ 78 From Monitor] Respiratory 28 H 26 H Rate Blood Pressure 144/85 O2 Sat by Pulse 97 99 100 Oximetry O2 Sat by Pulse Oximetry [ Assessment] 08/15/20 08/15/20 08/15/20 05:01 06:01 07:00 Temperature 97.4 F L Pulse Rate 83 87 Pulse Rate [ From Monitor] Respiratory 26 H 26 H Rate Blood Pressure O2 Sat by Pulse 98 99 Oximetry O2 Sat by Pulse Oximetry [ Assessment] 08/15/20 08/15/20 08/15/20 07:01 08:00 08:01 Temperature Pulse Rate 79 74 Pulse Rate [ 75 From Monitor] Respiratory 25 H 28 H 24 Rate Blood Pressure O2 Sat by Pulse 94 97 98 Oximetry O2 Sat by Pulse Oximetry [ Assessment] 08/15/20 08/15/20 08/15/20 08:20 09:01 09:40 Temperature Pulse Rate 79 84 77 Pulse Rate [ From Monitor] Respiratory 17 Rate Blood Pressure 160/68 148/67 O2 Sat by Pulse 97 97 Oximetry O2 Sat by Pulse Oximetry [ Assessment] 08/15/20 08/15/20 08/15/20 09:41 10:01 11:01 Temperature Pulse Rate 77 81 69 Pulse Rate [ From Monitor] Respiratory 24 22 Rate Blood Pressure 148/67 161/82 157/74 O2 Sat by Pulse 95 97 Oximetry O2 Sat by Pulse Oximetry [ Assessment] 0608/15/20 08/15/20 11:50 12:00 12:01 Temperature 97.7 F Pulse Rate 71 Pulse Rate [ 69 From Monitor] Respiratory 28 H 26 H Rate Blood Pressure 146/70 O2 Sat by Pulse 97 97 Oximetry O2 Sat by Pulse Oximetry [ Assessment] 08/15/20 08/15/20 12:13 12:14 Temperature Pulse Rate 70 Pulse Rate [ From Monitor] Respiratory Rate Blood Pressure 150/69 O2 Sat by Pulse 97 Oximetry O2 Sat by Pulse 97 Oximetry [ Assessment] Constitutional: appears uncomfortable, other ( chronically ill looking male with mildly increased respiratory effort at rest on MVS) Eyes: non-icteric ENT: oropharynx moist, oropharyngeal exudate pre (clear, frothy), other (ETT 24 cm KEVIN) Neck: supple, no lymphadenopathy, no JVD Effort: mildly labored Ascultation: Bilateral: diminished breath sounds, rhonchi Percussion: Bilateral: not dull Cardiovascular: regular rate and rhythm, other (S1,S2) Gastrointestinal: normoactive bowel sounds, soft, non-tender, non-distended, other (no patricio cullens sign) Integumentary: rash, decubitus ulcer (sacral (POA)) Extremities: no cyanosis, pulses normal, edema (lower extremities and bilatral upper extremity) Neurologic: pupils equal and round, unable to assess, other (quadriplegic) Psychiatric: anxious CBC and BMP: 08/15/20 04:04 08/15/20 10:28 ABG, PT/INR, D-dimer: ABG ABG pH 7.431 pH Units (7.350-7.450) 08/15/20 Unknown POC ABG pCO2 46.9 mmHg (32.0-48.0) 08/11/20 22:13 ABG pCO2 35.7 mm Hg 08/15/20 Unknown POC ABG pO2 163.6 mmHg (83-108) H 08/11/20 22:13 ABG pO2 77.7 mm Hg (80.0-90.0) L 08/15/20 Unknown POC ABG HCO3 25.5 08/11/20 22:13 ABG O2 Saturation 96.5 % (95.0-99.0) 08/15/20 Unknown PT/INR, D-dimer PT 14.7 Sec. (12.2-14.9) 08/15/20 10:28 INR 1.09 (0.87-1.13) 08/15/20 10:28 Abnormal lab findings: Abnormal Labs 07/28/20 07/28/20 07/28/20 08:48 08:48 08:48 WBC 17.0 H RBC 2.77 L Hgb 8.2 L Hct 26.5 L MCV 96 H MCH MCHC 31 L RDW 16.2 H Plt Count Seg Neuts % (Manual) Lymphocytes % (Manual) Seg Neutrophils # Man Lymphocytes # (Manual) Haptoglobin PT 24.7 H INR 2.17 H ABG pH POC ABG pCO2 POC ABG pO2 ABG pO2 ABG O2 Saturation ABG Hemoglobin ABG Oxyhemoglobin ABG Sodium ABG Potassium ABG Chloride ABG Glucose Oxyhemoglobin Carboxyhemoglobin Sodium 135 L Potassium 3.5 L Chloride 97.6 L Carbon Dioxide BUN 44 H Creatinine 1.6 H Glucose 431 H POC Glucose Hemoglobin A1c Lactic Acid Calcium 7.9 L Ionized Calcium Phosphorus AST 81 H ALT Alkaline Phosphatase Ammonia Lactate Dehydrogenase Total Creatine Kinase 486 H Troponin T 0.115 H* C-Reactive Protein Total Protein 5.6 L Albumin 2.6 L Triglycerides LDL Cholesterol Direct 44 L HDL Cholesterol 26 L Arterial Blood Glucose Arterial Blood Ionized Calcium Urine WBC (Auto) Salicylates Crossmatch 07/28/20 07/28/20 07/28/20 08:48 09:44 09:44 WBC RBC Hgb Hct MCV MCH MCHC RDW Plt Count Seg Neuts % (Manual) Lymphocytes % (Manual) Seg Neutrophils # Man Lymphocytes # (Manual) Haptoglobin PT INR ABG pH POC ABG pCO2 POC ABG pO2 ABG pO2 ABG O2 Saturation ABG Hemoglobin ABG Oxyhemoglobin ABG Sodium ABG Potassium ABG Chloride ABG Glucose Oxyhemoglobin Carboxyhemoglobin Sodium Potassium Chloride Carbon Dioxide BUN Creatinine Glucose POC Glucose Hemoglobin A1c Lactic Acid 3.80 H* Calcium Ionized Calcium Phosphorus AST ALT Alkaline Phosphatase Ammonia 63.0 H Lactate Dehydrogenase Total Creatine Kinase Troponin T C-Reactive Protein Total Protein Albumin Triglycerides LDL Cholesterol Direct HDL Cholesterol Arterial Blood Glucose Arterial Blood Ionized Calcium Urine WBC (Auto) Salicylates < 0.3 L Crossmatch 07/28/20 07/28/20 07/28/20 10:18 14:38 15:58 WBC RBC Hgb Hct MCV MCH MCHC RDW Plt Count Seg Neuts % (Manual) Lymphocytes % (Manual) Seg Neutrophils # Man Lymphocytes # (Manual) Haptoglobin PT INR ABG pH POC ABG pCO2 POC ABG pO2 ABG pO2 78.0 L ABG O2 Saturation ABG Hemoglobin 7.6 L ABG Oxyhemoglobin ABG Sodium ABG Potassium ABG Chloride ABG Glucose Oxyhemoglobin Carboxyhemoglobin Sodium Potassium Chloride Carbon Dioxide BUN Creatinine Glucose POC Glucose 265 H Hemoglobin A1c Lactic Acid 3.90 H* Calcium Ionized Calcium Phosphorus AST ALT Alkaline Phosphatase Ammonia Lactate Dehydrogenase Total Creatine Kinase Troponin T C-Reactive Protein Total Protein Albumin Triglycerides LDL Cholesterol Direct HDL Cholesterol Arterial Blood Glucose Arterial Blood Ionized Calcium Urine WBC (Auto) Salicylates Crossmatch 07/28/20 07/28/20 07/28/20 19:50 21:00 Unknown WBC RBC Hgb Hct MCV MCH MCHC RDW Plt Count Seg Neuts % (Manual) Lymphocytes % (Manual) Seg Neutrophils # Man Lymphocytes # (Manual) Haptoglobin PT INR ABG pH 7.107 L POC ABG pCO2 65.6 H POC ABG pO2 ABG pO2 ABG O2 Saturation ABG Hemoglobin 9.9 L ABG Oxyhemoglobin ABG Sodium ABG Potassium ABG Chloride 108.0 H ABG Glucose 299 H Oxyhemoglobin Carboxyhemoglobin 0.2 L Sodium Potassium Chloride Carbon Dioxide BUN Creatinine Glucose POC Glucose Hemoglobin A1c Lactic Acid Calcium Ionized Calcium Phosphorus 5.40 H AST ALT Alkaline Phosphatase Ammonia Lactate Dehydrogenase Total Creatine Kinase Troponin T C-Reactive Protein 9.00 H Total Protein Albumin Triglycerides LDL Cholesterol Direct HDL Cholesterol Arterial Blood Glucose 299 H Arterial Blood Ionized Calcium 4.2 L Urine WBC (Auto) > 182.0 H Salicylates Crossmatch 07/29/20 07/29/20 07/29/20 04:02 13:00 17:13 WBC RBC Hgb Hct MCV MCH MCHC RDW Plt Count Seg Neuts % (Manual) Lymphocytes % (Manual) Seg Neutrophils # Man Lymphocytes # (Manual) Haptoglobin PT INR ABG pH 7.212 L POC ABG pCO2 52.5 H POC ABG pO2 128.3 H ABG pO2 ABG O2 Saturation ABG Hemoglobin 10.5 L ABG Oxyhemoglobin ABG Sodium ABG Potassium ABG Chloride 108.0 H ABG Glucose 239 H Oxyhemoglobin Carboxyhemoglobin Sodium Potassium Chloride Carbon Dioxide BUN Creatinine Glucose POC Glucose 212 H 257 H Hemoglobin A1c Lactic Acid Calcium Ionized Calcium Phosphorus AST ALT Alkaline Phosphatase Ammonia Lactate Dehydrogenase Total Creatine Kinase Troponin T C-Reactive Protein Total Protein Albumin Triglycerides LDL Cholesterol Direct HDL Cholesterol Arterial Blood Glucose 239 H Arterial Blood Ionized Calcium 4.0 L Urine WBC (Auto) Salicylates Crossmatch 07/29/20 07/29/20 07/29/20 21:00 23:20 Unknown WBC RBC 3.05 L Hgb 9.7 L Hct 28.6 L MCV MCH MCHC RDW 16.1 H Plt Count Seg Neuts % (Manual) 75.0 H Lymphocytes % (Manual) 2.0 L Seg Neutrophils # Man Lymphocytes # (Manual) 0.2 L Haptoglobin PT INR ABG pH 7.286 L POC ABG pCO2 POC ABG pO2 ABG pO2 ABG O2 Saturation ABG Hemoglobin 9.1 L ABG Oxyhemoglobin ABG Sodium ABG Potassium ABG Chloride 109.0 H ABG Glucose 285 H Oxyhemoglobin Carboxyhemoglobin Sodium Potassium Chloride Carbon Dioxide BUN Creatinine Glucose POC Glucose 233 H Hemoglobin A1c Lactic Acid Calcium Ionized Calcium Phosphorus AST ALT Alkaline Phosphatase Ammonia Lactate Dehydrogenase Total Creatine Kinase Troponin T C-Reactive Protein Total Protein Albumin Triglycerides LDL Cholesterol Direct HDL Cholesterol Arterial Blood Glucose 285 H Arterial Blood Ionized Calcium 3.9 L Urine WBC (Auto) Salicylates Crossmatch 07/29/20 07/29/20 07/30/20 Unknown Unknown 05:30 WBC RBC Hgb Hct MCV MCH MCHC RDW Plt Count Seg Neuts % (Manual) Lymphocytes % (Manual) Seg Neutrophils # Man Lymphocytes # (Manual) Haptoglobin PT INR ABG pH POC ABG pCO2 POC ABG pO2 ABG pO2 ABG O2 Saturation ABG Hemoglobin ABG Oxyhemoglobin ABG Sodium ABG Potassium ABG Chloride ABG Glucose Oxyhemoglobin Carboxyhemoglobin Sodium Potassium Chloride 108.4 H Carbon Dioxide 21 L BUN 41 H Creatinine Glucose 217 H POC Glucose 245 H Hemoglobin A1c Lactic Acid 2.70 H* Calcium 6.5 L D Ionized Calcium Phosphorus AST 104 H ALT 74 H Alkaline Phosphatase Ammonia Lactate Dehydrogenase Total Creatine Kinase Troponin T C-Reactive Protein Total Protein 5.1 L Albumin 2.4 L Triglycerides LDL Cholesterol Direct HDL Cholesterol Arterial Blood Glucose Arterial Blood Ionized Calcium Urine WBC (Auto) Salicylates Crossmatch 07/30/20 07/30/20 07/30/20 05:45 05:45 12:12 WBC RBC 2.50 L Hgb 7.8 L Hct 23.3 L MCV MCH MCHC RDW 16.4 H Plt Count Seg Neuts % (Manual) Lymphocytes % (Manual) Seg Neutrophils # Man Lymphocytes # (Manual) Haptoglobin PT INR ABG pH POC ABG pCO2 POC ABG pO2 ABG pO2 ABG O2 Saturation ABG Hemoglobin ABG Oxyhemoglobin ABG Sodium ABG Potassium ABG Chloride ABG Glucose Oxyhemoglobin Carboxyhemoglobin Sodium Potassium Chloride 108.4 H Carbon Dioxide 21 L BUN 44 H Creatinine 1.4 H Glucose 279 H POC Glucose 243 H Hemoglobin A1c Lactic Acid Calcium 6.7 L Ionized Calcium Phosphorus AST 51 H ALT Alkaline Phosphatase Ammonia Lactate Dehydrogenase Total Creatine Kinase Troponin T C-Reactive Protein Total Protein 5.5 L Albumin 2.3 L Triglycerides LDL Cholesterol Direct HDL Cholesterol Arterial Blood Glucose Arterial Blood Ionized Calcium Urine WBC (Auto) Salicylates Crossmatch 07/30/20 07/30/20 07/30/20 15:50 17:20 19:01 WBC RBC Hgb Hct MCV MCH MCHC RDW Plt Count Seg Neuts % (Manual) Lymphocytes % (Manual) Seg Neutrophils # Man Lymphocytes # (Manual) Haptoglobin PT INR ABG pH POC ABG pCO2 POC ABG pO2 147.2 H ABG pO2 ABG O2 Saturation ABG Hemoglobin 7.2 L ABG Oxyhemoglobin ABG Sodium ABG Potassium 3.3 L ABG Chloride 115.0 H ABG Glucose 269 H Oxyhemoglobin Carboxyhemoglobin 1.6 H Sodium Potassium Chloride Carbon Dioxide BUN Creatinine Glucose POC Glucose 260 H Hemoglobin A1c Lactic Acid Calcium Ionized Calcium 4.2 L Phosphorus AST ALT Alkaline Phosphatase Ammonia Lactate Dehydrogenase Total Creatine Kinase Troponin T C-Reactive Protein Total Protein Albumin Triglycerides LDL Cholesterol Direct HDL Cholesterol Arterial Blood Glucose 269 H Arterial Blood Ionized Calcium 3.5 L Urine WBC (Auto) Salicylates Crossmatch 07/30/20 07/31/20 07/31/20 23:16 04:04 04:47 WBC RBC Hgb Hct MCV MCH MCHC RDW Plt Count Seg Neuts % (Manual) Lymphocytes % (Manual) Seg Neutrophils # Man Lymphocytes # (Manual) Haptoglobin PT INR ABG pH POC ABG pCO2 POC ABG pO2 ABG pO2 ABG O2 Saturation ABG Hemoglobin 7.6 L ABG Oxyhemoglobin ABG Sodium ABG Potassium 3.3 L ABG Chloride 113.0 H ABG Glucose 348 H Oxyhemoglobin Carboxyhemoglobin 0.4 L Sodium Potassium Chloride Carbon Dioxide BUN Creatinine Glucose POC Glucose 298 H 297 H Hemoglobin A1c Lactic Acid Calcium Ionized Calcium Phosphorus AST ALT Alkaline Phosphatase Ammonia Lactate Dehydrogenase Total Creatine Kinase Troponin T C-Reactive Protein Total Protein Albumin Triglycerides LDL Cholesterol Direct HDL Cholesterol Arterial Blood Glucose 348 H Arterial Blood Ionized Calcium 4.1 L Urine WBC (Auto) Salicylates Crossmatch 07/31/20 07/31/20 07/31/20 07:26 07:26 11:54 WBC RBC 2.29 L Hgb 7.2 L Hct 21.5 L MCV MCH MCHC RDW 16.7 H Plt Count Seg Neuts % (Manual) Lymphocytes % (Manual) Seg Neutrophils # Man Lymphocytes # (Manual) Haptoglobin PT INR ABG pH POC ABG pCO2 POC ABG pO2 ABG pO2 ABG O2 Saturation ABG Hemoglobin ABG Oxyhemoglobin ABG Sodium ABG Potassium ABG Chloride ABG Glucose Oxyhemoglobin Carboxyhemoglobin Sodium Potassium 3.4 L Chloride 109.4 H Carbon Dioxide BUN 45 H Creatinine 1.4 H Glucose 304 H POC Glucose 302 H Hemoglobin A1c Lactic Acid Calcium 6.9 L Ionized Calcium Phosphorus AST ALT Alkaline Phosphatase Ammonia Lactate Dehydrogenase Total Creatine Kinase Troponin T C-Reactive Protein Total Protein Albumin Triglycerides LDL Cholesterol Direct HDL Cholesterol Arterial Blood Glucose Arterial Blood Ionized Calcium Urine WBC (Auto) Salicylates Crossmatch 07/31/20 08/01/20 08/01/20 21:27 03:09 04:30 WBC RBC 2.29 L Hgb 7.0 L Hct 20.7 L MCV MCH MCHC RDW 16.2 H Plt Count 125 L Seg Neuts % (Manual) Lymphocytes % (Manual) Seg Neutrophils # Man Lymphocytes # (Manual) Haptoglobin PT INR ABG pH POC ABG pCO2 POC ABG pO2 ABG pO2 ABG O2 Saturation ABG Hemoglobin 7.4 L ABG Oxyhemoglobin ABG Sodium 146.9 H ABG Potassium 3.2 L ABG Chloride 116.0 H ABG Glucose 113 H Oxyhemoglobin Carboxyhemoglobin Sodium Potassium Chloride Carbon Dioxide BUN Creatinine Glucose POC Glucose 138 H Hemoglobin A1c Lactic Acid Calcium Ionized Calcium Phosphorus AST ALT Alkaline Phosphatase Ammonia Lactate Dehydrogenase Total Creatine Kinase Troponin T C-Reactive Protein Total Protein Albumin Triglycerides LDL Cholesterol Direct HDL Cholesterol Arterial Blood Glucose 113 H Arterial Blood Ionized Calcium 4.5 L Urine WBC (Auto) Salicylates Crossmatch 08/01/20 08/01/20 08/01/20 04:30 04:30 08:40 WBC RBC Hgb Hct MCV MCH MCHC RDW Plt Count Seg Neuts % (Manual) Lymphocytes % (Manual) Seg Neutrophils # Man Lymphocytes # (Manual) Haptoglobin PT INR ABG pH POC ABG pCO2 POC ABG pO2 ABG pO2 ABG O2 Saturation ABG Hemoglobin ABG Oxyhemoglobin ABG Sodium ABG Potassium ABG Chloride ABG Glucose Oxyhemoglobin Carboxyhemoglobin Sodium 148 H Potassium 3.4 L Chloride 114.3 H Carbon Dioxide BUN 43 H Creatinine Glucose 109 H POC Glucose Hemoglobin A1c 8.8 H Lactic Acid Calcium 8.1 L D Ionized Calcium Phosphorus AST ALT Alkaline Phosphatase Ammonia Lactate Dehydrogenase Total Creatine Kinase Troponin T C-Reactive Protein Total Protein Albumin Triglycerides LDL Cholesterol Direct HDL Cholesterol Arterial Blood Glucose Arterial Blood Ionized Calcium Urine WBC (Auto) Salicylates Crossmatch See Detail 08/01/20 08/01/20 08/01/20 08:40 17:03 23:35 WBC RBC Hgb Hct MCV MCH MCHC RDW Plt Count Seg Neuts % (Manual) Lymphocytes % (Manual) Seg Neutrophils # Man Lymphocytes # (Manual) Haptoglobin PT INR ABG pH POC ABG pCO2 POC ABG pO2 ABG pO2 ABG O2 Saturation ABG Hemoglobin ABG Oxyhemoglobin ABG Sodium ABG Potassium ABG Chloride ABG Glucose Oxyhemoglobin Carboxyhemoglobin Sodium Potassium Chloride Carbon Dioxide BUN Creatinine Glucose POC Glucose 129 H 172 H Hemoglobin A1c Lactic Acid Calcium Ionized Calcium Phosphorus 1.70 L AST ALT Alkaline Phosphatase Ammonia Lactate Dehydrogenase Total Creatine Kinase Troponin T C-Reactive Protein Total Protein Albumin Triglycerides LDL Cholesterol Direct HDL Cholesterol Arterial Blood Glucose Arterial Blood Ionized Calcium Urine WBC (Auto) Salicylates Crossmatch 08/02/20 08/02/20 08/02/20 03:50 05:46 10:54 WBC RBC Hgb Hct MCV MCH MCHC RDW Plt Count Seg Neuts % (Manual) Lymphocytes % (Manual) Seg Neutrophils # Man Lymphocytes # (Manual) Haptoglobin PT INR ABG pH 7.333 L POC ABG pCO2 POC ABG pO2 ABG pO2 91.5 H ABG O2 Saturation ABG Hemoglobin 7.9 L ABG Oxyhemoglobin ABG Sodium ABG Potassium ABG Chloride ABG Glucose Oxyhemoglobin Carboxyhemoglobin Sodium Potassium Chloride Carbon Dioxide BUN Creatinine Glucose POC Glucose 161 H 228 H Hemoglobin A1c Lactic Acid Calcium Ionized Calcium Phosphorus AST ALT Alkaline Phosphatase Ammonia Lactate Dehydrogenase Total Creatine Kinase Troponin T C-Reactive Protein Total Protein Albumin Triglycerides LDL Cholesterol Direct HDL Cholesterol Arterial Blood Glucose Arterial Blood Ionized Calcium Urine WBC (Auto) Salicylates Crossmatch 08/02/20 08/02/20 08/02/20 17:20 23:13 Unknown WBC RBC 2.66 L Hgb 8.1 L Hct 23.9 L MCV MCH MCHC RDW 16.8 H Plt Count 110 L Seg Neuts % (Manual) Lymphocytes % (Manual) Seg Neutrophils # Man Lymphocytes # (Manual) Haptoglobin PT INR ABG pH POC ABG pCO2 POC ABG pO2 ABG pO2 ABG O2 Saturation ABG Hemoglobin ABG Oxyhemoglobin ABG Sodium ABG Potassium ABG Chloride ABG Glucose Oxyhemoglobin Carboxyhemoglobin Sodium Potassium Chloride Carbon Dioxide BUN Creatinine Glucose POC Glucose 214 H 132 H Hemoglobin A1c Lactic Acid Calcium Ionized Calcium Phosphorus AST ALT Alkaline Phosphatase Ammonia Lactate Dehydrogenase Total Creatine Kinase Troponin T C-Reactive Protein Total Protein Albumin Triglycerides LDL Cholesterol Direct HDL Cholesterol Arterial Blood Glucose Arterial Blood Ionized Calcium Urine WBC (Auto) Salicylates Crossmatch 08/02/20 08/02/20 08/03/20 Unknown Unknown 02:59 WBC RBC Hgb Hct MCV MCH MCHC RDW Plt Count Seg Neuts % (Manual) Lymphocytes % (Manual) Seg Neutrophils # Man Lymphocytes # (Manual) Haptoglobin PT INR ABG pH POC ABG pCO2 POC ABG pO2 ABG pO2 ABG O2 Saturation ABG Hemoglobin 8.1 L ABG Oxyhemoglobin ABG Sodium ABG Potassium ABG Chloride 113.0 H ABG Glucose 143 H Oxyhemoglobin Carboxyhemoglobin Sodium 150 H Potassium 3.5 L Chloride 115.9 H Carbon Dioxide BUN 42 H Creatinine Glucose 188 H POC Glucose Hemoglobin A1c Lactic Acid Calcium 7.8 L Ionized Calcium Phosphorus 2.30 L D AST ALT Alkaline Phosphatase Ammonia Lactate Dehydrogenase Total Creatine Kinase Troponin T C-Reactive Protein Total Protein Albumin Triglycerides LDL Cholesterol Direct HDL Cholesterol Arterial Blood Glucose 143 H Arterial Blood Ionized Calcium Urine WBC (Auto) Salicylates Crossmatch 08/03/20 08/03/20 08/03/20 04:16 04:16 05:12 WBC RBC 2.62 L Hgb 8.1 L Hct 24.1 L MCV MCH MCHC RDW 17.4 H Plt Count 118 L Seg Neuts % (Manual) Lymphocytes % (Manual) Seg Neutrophils # Man Lymphocytes # (Manual) Haptoglobin PT INR ABG pH POC ABG pCO2 POC ABG pO2 ABG pO2 ABG O2 Saturation ABG Hemoglobin ABG Oxyhemoglobin ABG Sodium ABG Potassium ABG Chloride ABG Glucose Oxyhemoglobin Carboxyhemoglobin Sodium 148 H Potassium Chloride 114.5 H Carbon Dioxide BUN 47 H Creatinine Glucose 158 H POC Glucose 164 H Hemoglobin A1c Lactic Acid Calcium 8.1 L Ionized Calcium Phosphorus 2.30 L AST ALT Alkaline Phosphatase Ammonia Lactate Dehydrogenase Total Creatine Kinase Troponin T C-Reactive Protein Total Protein Albumin Triglycerides LDL Cholesterol Direct HDL Cholesterol Arterial Blood Glucose Arterial Blood Ionized Calcium Urine WBC (Auto) Salicylates Crossmatch 08/03/20 08/03/20 08/03/20 11:26 17:33 23:47 WBC RBC Hgb Hct MCV MCH MCHC RDW Plt Count Seg Neuts % (Manual) Lymphocytes % (Manual) Seg Neutrophils # Man Lymphocytes # (Manual) Haptoglobin PT INR ABG pH POC ABG pCO2 POC ABG pO2 ABG pO2 ABG O2 Saturation ABG Hemoglobin ABG Oxyhemoglobin ABG Sodium ABG Potassium ABG Chloride ABG Glucose Oxyhemoglobin Carboxyhemoglobin Sodium Potassium Chloride Carbon Dioxide BUN Creatinine Glucose POC Glucose 190 H 235 H 194 H Hemoglobin A1c Lactic Acid Calcium Ionized Calcium Phosphorus AST ALT Alkaline Phosphatase Ammonia Lactate Dehydrogenase Total Creatine Kinase Troponin T C-Reactive Protein Total Protein Albumin Triglycerides LDL Cholesterol Direct HDL Cholesterol Arterial Blood Glucose Arterial Blood Ionized Calcium Urine WBC (Auto) Salicylates Crossmatch 08/04/20 08/04/20 08/04/20 03:00 03:00 04:14 WBC RBC Hgb Hct MCV MCH MCHC RDW Plt Count Seg Neuts % (Manual) Lymphocytes % (Manual) Seg Neutrophils # Man Lymphocytes # (Manual) Haptoglobin PT INR ABG pH POC ABG pCO2 POC ABG pO2 79.5 L ABG pO2 ABG O2 Saturation ABG Hemoglobin 9.9 L ABG Oxyhemoglobin ABG Sodium ABG Potassium ABG Chloride 113.0 H ABG Glucose 227 H Oxyhemoglobin Carboxyhemoglobin 0.3 L Sodium Potassium Chloride 111.4 H Carbon Dioxide BUN 51 H Creatinine Glucose 218 H POC Glucose Hemoglobin A1c Lactic Acid Calcium Ionized Calcium Phosphorus AST ALT Alkaline Phosphatase Ammonia Lactate Dehydrogenase Total Creatine Kinase Troponin T C-Reactive Protein Total Protein Albumin Triglycerides 184 H LDL Cholesterol Direct HDL Cholesterol Arterial Blood Glucose 227 H Arterial Blood Ionized Calcium Urine WBC (Auto) Salicylates Crossmatch 08/04/20 08/04/20 08/04/20 05:17 11:52 11:53 WBC RBC Hgb Hct MCV MCH MCHC RDW Plt Count Seg Neuts % (Manual) Lymphocytes % (Manual) Seg Neutrophils # Man Lymphocytes # (Manual) Haptoglobin PT INR ABG pH POC ABG pCO2 POC ABG pO2 ABG pO2 ABG O2 Saturation ABG Hemoglobin ABG Oxyhemoglobin ABG Sodium ABG Potassium ABG Chloride ABG Glucose Oxyhemoglobin Carboxyhemoglobin Sodium Potassium Chloride Carbon Dioxide BUN Creatinine Glucose POC Glucose 224 H 253 H 237 H Hemoglobin A1c Lactic Acid Calcium Ionized Calcium Phosphorus AST ALT Alkaline Phosphatase Ammonia Lactate Dehydrogenase Total Creatine Kinase Troponin T C-Reactive Protein Total Protein Albumin Triglycerides LDL Cholesterol Direct HDL Cholesterol Arterial Blood Glucose Arterial Blood Ionized Calcium Urine WBC (Auto) Salicylates Crossmatch 08/04/20 08/04/20 08/04/20 15:35 16:25 17:45 WBC 21.5 H RBC 2.10 L Hgb 7.3 L Hct 22.0 L MCV MCH 33 H MCHC 37 H RDW 17.2 H Plt Count 133 L Seg Neuts % (Manual) Lymphocytes % (Manual) Seg Neutrophils # Man Lymphocytes # (Manual) Haptoglobin PT INR ABG pH POC ABG pCO2 POC ABG pO2 ABG pO2 ABG O2 Saturation ABG Hemoglobin ABG Oxyhemoglobin ABG Sodium ABG Potassium ABG Chloride ABG Glucose Oxyhemoglobin Carboxyhemoglobin Sodium Potassium Chloride Carbon Dioxide BUN Creatinine Glucose POC Glucose 230 H 218 H Hemoglobin A1c Lactic Acid Calcium Ionized Calcium Phosphorus AST ALT Alkaline Phosphatase Ammonia Lactate Dehydrogenase Total Creatine Kinase Troponin T C-Reactive Protein Total Protein Albumin Triglycerides LDL Cholesterol Direct HDL Cholesterol Arterial Blood Glucose Arterial Blood Ionized Calcium Urine WBC (Auto) Salicylates Crossmatch 08/04/20 08/05/20 08/05/20 23:11 03:28 05:25 WBC RBC Hgb Hct MCV MCH MCHC RDW Plt Count Seg Neuts % (Manual) Lymphocytes % (Manual) Seg Neutrophils # Man Lymphocytes # (Manual) Haptoglobin PT INR ABG pH POC ABG pCO2 POC ABG pO2 82.1 L ABG pO2 ABG O2 Saturation ABG Hemoglobin 8.6 L ABG Oxyhemoglobin 93.7 L ABG Sodium ABG Potassium ABG Chloride 113.0 H ABG Glucose 205 H Oxyhemoglobin Carboxyhemoglobin Sodium Potassium Chloride Carbon Dioxide BUN Creatinine Glucose POC Glucose 198 H 213 H Hemoglobin A1c Lactic Acid Calcium Ionized Calcium Phosphorus AST ALT Alkaline Phosphatase Ammonia Lactate Dehydrogenase Total Creatine Kinase Troponin T C-Reactive Protein Total Protein Albumin Triglycerides LDL Cholesterol Direct HDL Cholesterol Arterial Blood Glucose 205 H Arterial Blood Ionized Calcium Urine WBC (Auto) Salicylates Crossmatch 08/05/20 08/05/20 08/05/20 08:48 08:48 10:55 WBC 14.3 H RBC 2.76 L Hgb 8.1 L Hct 24.8 L MCV MCH MCHC RDW 17.4 H Plt Count 138 L Seg Neuts % (Manual) 97.0 H Lymphocytes % (Manual) 1.0 L Seg Neutrophils # Man 13.9 H Lymphocytes # (Manual) 0.1 L Haptoglobin PT INR ABG pH POC ABG pCO2 POC ABG pO2 158.7 H ABG pO2 ABG O2 Saturation ABG Hemoglobin 7.8 L ABG Oxyhemoglobin ABG Sodium ABG Potassium ABG Chloride 114.0 H ABG Glucose 242 H Oxyhemoglobin Carboxyhemoglobin Sodium 146 H Potassium Chloride 110.1 H Carbon Dioxide BUN 56 H Creatinine Glucose 219 H POC Glucose Hemoglobin A1c Lactic Acid Calcium Ionized Calcium Phosphorus AST ALT Alkaline Phosphatase 192 H Ammonia Lactate Dehydrogenase Total Creatine Kinase Troponin T C-Reactive Protein Total Protein 5.8 L Albumin 2.0 L Triglycerides LDL Cholesterol Direct HDL Cholesterol Arterial Blood Glucose 242 H Arterial Blood Ionized Calcium Urine WBC (Auto) Salicylates Crossmatch 08/05/20 08/05/20 08/05/20 11:12 11:30 17:08 WBC RBC Hgb Hct MCV MCH MCHC RDW Plt Count Seg Neuts % (Manual) Lymphocytes % (Manual) Seg Neutrophils # Man Lymphocytes # (Manual) Haptoglobin PT INR ABG pH POC ABG pCO2 POC ABG pO2 147.5 H ABG pO2 ABG O2 Saturation ABG Hemoglobin 7.5 L ABG Oxyhemoglobin 98.1 H ABG Sodium ABG Potassium ABG Chloride 113.0 H ABG Glucose 248 H Oxyhemoglobin Carboxyhemoglobin Sodium Potassium Chloride Carbon Dioxide BUN Creatinine Glucose POC Glucose 238 H 239 H Hemoglobin A1c Lactic Acid Calcium Ionized Calcium Phosphorus AST ALT Alkaline Phosphatase Ammonia Lactate Dehydrogenase Total Creatine Kinase Troponin T C-Reactive Protein Total Protein Albumin Triglycerides LDL Cholesterol Direct HDL Cholesterol Arterial Blood Glucose 248 H Arterial Blood Ionized Calcium Urine WBC (Auto) Salicylates Crossmatch 08/05/20 08/05/20 08/06/20 23:17 Unknown 05:12 WBC RBC Hgb Hct MCV MCH MCHC RDW Plt Count Seg Neuts % (Manual) Lymphocytes % (Manual) Seg Neutrophils # Man Lymphocytes # (Manual) Haptoglobin PT INR ABG pH POC ABG pCO2 POC ABG pO2 ABG pO2 ABG O2 Saturation ABG Hemoglobin ABG Oxyhemoglobin ABG Sodium ABG Potassium ABG Chloride ABG Glucose Oxyhemoglobin Carboxyhemoglobin Sodium Potassium Chloride 109.2 H Carbon Dioxide BUN 51 H Creatinine Glucose 229 H POC Glucose 200 H 145 H Hemoglobin A1c Lactic Acid Calcium Ionized Calcium Phosphorus AST ALT Alkaline Phosphatase Ammonia Lactate Dehydrogenase Total Creatine Kinase Troponin T C-Reactive Protein Total Protein Albumin Triglycerides LDL Cholesterol Direct HDL Cholesterol Arterial Blood Glucose Arterial Blood Ionized Calcium Urine WBC (Auto) Salicylates Crossmatch 08/06/20 08/06/20 08/06/20 05:21 10:00 11:28 WBC RBC Hgb Hct MCV MCH MCHC RDW Plt Count Seg Neuts % (Manual) Lymphocytes % (Manual) Seg Neutrophils # Man Lymphocytes # (Manual) Haptoglobin PT INR ABG pH 7.301 L 7.308 L POC ABG pCO2 49.5 H 49.1 H POC ABG pO2 178.4 H ABG pO2 ABG O2 Saturation ABG Hemoglobin 7.5 L 7.1 L ABG Oxyhemoglobin 98.8 H ABG Sodium ABG Potassium ABG Chloride 112.0 H 112.0 H ABG Glucose 149 H 162 H Oxyhemoglobin Carboxyhemoglobin Sodium Potassium Chloride Carbon Dioxide BUN Creatinine Glucose POC Glucose 158 H Hemoglobin A1c Lactic Acid Calcium Ionized Calcium Phosphorus AST ALT Alkaline Phosphatase Ammonia Lactate Dehydrogenase Total Creatine Kinase Troponin T C-Reactive Protein Total Protein Albumin Triglycerides LDL Cholesterol Direct HDL Cholesterol Arterial Blood Glucose 149 H 162 H Arterial Blood Ionized Calcium Urine WBC (Auto) Salicylates Crossmatch 08/06/20 08/06/20 08/06/20 17:42 23:56 Unknown WBC 13.0 H RBC 2.38 L Hgb 7.1 L Hct 21.5 L MCV MCH MCHC RDW 17.6 H Plt Count Seg Neuts % (Manual) Lymphocytes % (Manual) Seg Neutrophils # Man Lymphocytes # (Manual) Haptoglobin PT INR ABG pH POC ABG pCO2 POC ABG pO2 ABG pO2 ABG O2 Saturation ABG Hemoglobin ABG Oxyhemoglobin ABG Sodium ABG Potassium ABG Chloride ABG Glucose Oxyhemoglobin Carboxyhemoglobin Sodium Potassium Chloride Carbon Dioxide BUN Creatinine Glucose POC Glucose 179 H 259 H Hemoglobin A1c Lactic Acid Calcium Ionized Calcium Phosphorus AST ALT Alkaline Phosphatase Ammonia Lactate Dehydrogenase Total Creatine Kinase Troponin T C-Reactive Protein Total Protein Albumin Triglycerides LDL Cholesterol Direct HDL Cholesterol Arterial Blood Glucose Arterial Blood Ionized Calcium Urine WBC (Auto) Salicylates Crossmatch 08/07/20 08/07/20 08/07/20 04:00 04:05 04:05 WBC RBC 2.32 L Hgb 7.1 L Hct 20.9 L MCV MCH MCHC RDW 17.9 H Plt Count Seg Neuts % (Manual) Lymphocytes % (Manual) Seg Neutrophils # Man Lymphocytes # (Manual) Haptoglobin PT INR ABG pH POC ABG pCO2 POC ABG pO2 150.6 H ABG pO2 ABG O2 Saturation ABG Hemoglobin 8.0 L ABG Oxyhemoglobin 98.4 H ABG Sodium 146.7 H ABG Potassium ABG Chloride 114.0 H ABG Glucose 201 H Oxyhemoglobin Carboxyhemoglobin Sodium 151 H Potassium Chloride 114.3 H Carbon Dioxide BUN 63 H Creatinine Glucose 198 H POC Glucose Hemoglobin A1c Lactic Acid Calcium Ionized Calcium Phosphorus AST 54 H ALT Alkaline Phosphatase 213 H Ammonia Lactate Dehydrogenase Total Creatine Kinase Troponin T C-Reactive Protein Total Protein 6.1 L Albumin 2.0 L Triglycerides LDL Cholesterol Direct HDL Cholesterol Arterial Blood Glucose 201 H Arterial Blood Ionized Calcium Urine WBC (Auto) Salicylates Crossmatch 08/07/20 08/07/20 08/07/20 05:34 11:43 14:30 WBC RBC Hgb Hct MCV MCH MCHC RDW Plt Count Seg Neuts % (Manual) Lymphocytes % (Manual) Seg Neutrophils # Man Lymphocytes # (Manual) Haptoglobin PT INR ABG pH POC ABG pCO2 POC ABG pO2 ABG pO2 62.9 L ABG O2 Saturation 86.7 L ABG Hemoglobin 7.1 L ABG Oxyhemoglobin ABG Sodium ABG Potassium ABG Chloride ABG Glucose Oxyhemoglobin 85.0 L Carboxyhemoglobin Sodium Potassium Chloride Carbon Dioxide BUN Creatinine Glucose POC Glucose 160 H 201 H Hemoglobin A1c Lactic Acid Calcium Ionized Calcium Phosphorus AST ALT Alkaline Phosphatase Ammonia Lactate Dehydrogenase Total Creatine Kinase Troponin T C-Reactive Protein Total Protein Albumin Triglycerides LDL Cholesterol Direct HDL Cholesterol Arterial Blood Glucose Arterial Blood Ionized Calcium Urine WBC (Auto) Salicylates Crossmatch 08/07/20 08/07/20 08/08/20 17:57 23:12 05:38 WBC RBC Hgb Hct MCV MCH MCHC RDW Plt Count Seg Neuts % (Manual) Lymphocytes % (Manual) Seg Neutrophils # Man Lymphocytes # (Manual) Haptoglobin PT INR ABG pH POC ABG pCO2 POC ABG pO2 ABG pO2 ABG O2 Saturation ABG Hemoglobin ABG Oxyhemoglobin ABG Sodium ABG Potassium ABG Chloride ABG Glucose Oxyhemoglobin Carboxyhemoglobin Sodium Potassium Chloride Carbon Dioxide BUN Creatinine Glucose POC Glucose 242 H 246 H 135 H Hemoglobin A1c Lactic Acid Calcium Ionized Calcium Phosphorus AST ALT Alkaline Phosphatase Ammonia Lactate Dehydrogenase Total Creatine Kinase Troponin T C-Reactive Protein Total Protein Albumin Triglycerides LDL Cholesterol Direct HDL Cholesterol Arterial Blood Glucose Arterial Blood Ionized Calcium Urine WBC (Auto) Salicylates Crossmatch 08/08/20 08/08/20 08/08/20 09:49 11:40 17:28 WBC RBC Hgb Hct MCV MCH MCHC RDW Plt Count Seg Neuts % (Manual) Lymphocytes % (Manual) Seg Neutrophils # Man Lymphocytes # (Manual) Haptoglobin PT INR ABG pH POC ABG pCO2 POC ABG pO2 ABG pO2 ABG O2 Saturation ABG Hemoglobin 6.9 L ABG Oxyhemoglobin ABG Sodium 146.1 H ABG Potassium ABG Chloride 114.0 H ABG Glucose 192 H Oxyhemoglobin Carboxyhemoglobin Sodium Potassium Chloride Carbon Dioxide BUN Creatinine Glucose POC Glucose 187 H 175 H Hemoglobin A1c Lactic Acid Calcium Ionized Calcium Phosphorus AST ALT Alkaline Phosphatase Ammonia Lactate Dehydrogenase Total Creatine Kinase Troponin T C-Reactive Protein Total Protein Albumin Triglycerides LDL Cholesterol Direct HDL Cholesterol Arterial Blood Glucose 192 H Arterial Blood Ionized Calcium Urine WBC (Auto) Salicylates Crossmatch 08/09/20 08/09/20 08/09/20 03:41 06:10 11:58 WBC RBC Hgb Hct MCV MCH MCHC RDW Plt Count Seg Neuts % (Manual) Lymphocytes % (Manual) Seg Neutrophils # Man Lymphocytes # (Manual) Haptoglobin PT INR ABG pH POC ABG pCO2 POC ABG pO2 ABG pO2 ABG O2 Saturation ABG Hemoglobin 6.9 L ABG Oxyhemoglobin ABG Sodium 145.8 H ABG Potassium 4.6 H ABG Chloride 113.0 H ABG Glucose 113 H Oxyhemoglobin Carboxyhemoglobin Sodium Potassium Chloride Carbon Dioxide BUN Creatinine Glucose POC Glucose 118 H 124 H Hemoglobin A1c Lactic Acid Calcium Ionized Calcium Phosphorus AST ALT Alkaline Phosphatase Ammonia Lactate Dehydrogenase Total Creatine Kinase Troponin T C-Reactive Protein Total Protein Albumin Triglycerides LDL Cholesterol Direct HDL Cholesterol Arterial Blood Glucose 113 H Arterial Blood Ionized Calcium Urine WBC (Auto) Salicylates Crossmatch 08/09/20 08/09/20 08/09/20 14:05 14:05 17:42 WBC RBC 3.58 L Hgb 10.5 L D Hct 31.6 L D MCV MCH MCHC RDW 17.8 H Plt Count 125 L Seg Neuts % (Manual) Lymphocytes % (Manual) Seg Neutrophils # Man Lymphocytes # (Manual) Haptoglobin PT INR ABG pH POC ABG pCO2 POC ABG pO2 ABG pO2 ABG O2 Saturation ABG Hemoglobin ABG Oxyhemoglobin ABG Sodium ABG Potassium ABG Chloride ABG Glucose Oxyhemoglobin Carboxyhemoglobin Sodium Potassium Chloride 111.2 H Carbon Dioxide BUN 74 H Creatinine Glucose 137 H POC Glucose 139 H Hemoglobin A1c Lactic Acid Calcium Ionized Calcium Phosphorus AST ALT Alkaline Phosphatase Ammonia Lactate Dehydrogenase Total Creatine Kinase Troponin T C-Reactive Protein Total Protein Albumin Triglycerides LDL Cholesterol Direct HDL Cholesterol Arterial Blood Glucose Arterial Blood Ionized Calcium Urine WBC (Auto) Salicylates Crossmatch 08/09/20 08/09/20 08/09/20 21:07 21:25 23:26 WBC RBC Hgb Hct MCV MCH MCHC RDW Plt Count Seg Neuts % (Manual) Lymphocytes % (Manual) Seg Neutrophils # Man Lymphocytes # (Manual) Haptoglobin PT 15.5 H INR 1.17 H ABG pH POC ABG pCO2 POC ABG pO2 ABG pO2 ABG O2 Saturation ABG Hemoglobin ABG Oxyhemoglobin ABG Sodium ABG Potassium ABG Chloride ABG Glucose Oxyhemoglobin Carboxyhemoglobin Sodium Potassium Chloride Carbon Dioxide BUN Creatinine Glucose POC Glucose 156 H 167 H Hemoglobin A1c Lactic Acid Calcium Ionized Calcium Phosphorus AST ALT Alkaline Phosphatase Ammonia Lactate Dehydrogenase Total Creatine Kinase Troponin T C-Reactive Protein Total Protein Albumin Triglycerides LDL Cholesterol Direct HDL Cholesterol Arterial Blood Glucose Arterial Blood Ionized Calcium Urine WBC (Auto) Salicylates Crossmatch 08/10/20 08/10/20 08/10/20 03:04 12:19 14:53 WBC RBC 2.06 L Hgb 6.1 L D Hct 18.6 L* D MCV MCH MCHC RDW 18.3 H Plt Count 137 L Seg Neuts % (Manual) Lymphocytes % (Manual) Seg Neutrophils # Man Lymphocytes # (Manual) Haptoglobin PT INR ABG pH POC ABG pCO2 POC ABG pO2 ABG pO2 ABG O2 Saturation ABG Hemoglobin 6.7 L ABG Oxyhemoglobin ABG Sodium ABG Potassium ABG Chloride 111.0 H ABG Glucose 116 H Oxyhemoglobin Carboxyhemoglobin Sodium Potassium Chloride Carbon Dioxide BUN Creatinine Glucose POC Glucose 57 L Hemoglobin A1c Lactic Acid Calcium Ionized Calcium Phosphorus AST ALT Alkaline Phosphatase Ammonia Lactate Dehydrogenase Total Creatine Kinase Troponin T C-Reactive Protein Total Protein Albumin Triglycerides LDL Cholesterol Direct HDL Cholesterol Arterial Blood Glucose 116 H Arterial Blood Ionized Calcium Urine WBC (Auto) Salicylates Crossmatch 08/10/20 08/10/20 08/10/20 14:53 18:08 23:11 WBC RBC Hgb Hct MCV MCH MCHC RDW Plt Count Seg Neuts % (Manual) Lymphocytes % (Manual) Seg Neutrophils # Man Lymphocytes # (Manual) Haptoglobin PT INR ABG pH POC ABG pCO2 POC ABG pO2 ABG pO2 ABG O2 Saturation ABG Hemoglobin ABG Oxyhemoglobin ABG Sodium ABG Potassium ABG Chloride ABG Glucose Oxyhemoglobin Carboxyhemoglobin Sodium 146 H Potassium Chloride 111.1 H Carbon Dioxide BUN 72 H Creatinine 1.4 H Glucose 158 H POC Glucose 68 L Hemoglobin A1c Lactic Acid Calcium 8.2 L Ionized Calcium Phosphorus AST ALT Alkaline Phosphatase Ammonia Lactate Dehydrogenase Total Creatine Kinase Troponin T C-Reactive Protein Total Protein Albumin Triglycerides LDL Cholesterol Direct HDL Cholesterol Arterial Blood Glucose Arterial Blood Ionized Calcium Urine WBC (Auto) Salicylates Crossmatch See Detail 08/11/20 08/11/20 08/11/20 04:12 05:34 05:36 WBC RBC Hgb Hct MCV MCH MCHC RDW Plt Count Seg Neuts % (Manual) Lymphocytes % (Manual) Seg Neutrophils # Man Lymphocytes # (Manual) Haptoglobin PT INR ABG pH POC ABG pCO2 POC ABG pO2 397.7 H ABG pO2 ABG O2 Saturation ABG Hemoglobin 7.6 L ABG Oxyhemoglobin 98.8 H ABG Sodium ABG Potassium ABG Chloride 113.0 H ABG Glucose 60 L Oxyhemoglobin Carboxyhemoglobin Sodium Potassium Chloride Carbon Dioxide BUN Creatinine Glucose POC Glucose 55 L 51 L Hemoglobin A1c Lactic Acid Calcium Ionized Calcium Phosphorus AST ALT Alkaline Phosphatase Ammonia Lactate Dehydrogenase Total Creatine Kinase Troponin T C-Reactive Protein Total Protein Albumin Triglycerides LDL Cholesterol Direct HDL Cholesterol Arterial Blood Glucose 60 L Arterial Blood Ionized Calcium 4.4 L Urine WBC (Auto) Salicylates Crossmatch 08/11/20 08/11/20 08/11/20 08:40 08:40 10:23 WBC RBC 2.14 L Hgb 6.2 L 6.3 L Hct 18.8 L* 19.0 L* MCV MCH MCHC RDW 17.6 H Plt Count Seg Neuts % (Manual) Lymphocytes % (Manual) Seg Neutrophils # Man Lymphocytes # (Manual) Haptoglobin PT INR ABG pH POC ABG pCO2 POC ABG pO2 ABG pO2 ABG O2 Saturation ABG Hemoglobin ABG Oxyhemoglobin ABG Sodium ABG Potassium ABG Chloride ABG Glucose Oxyhemoglobin Carboxyhemoglobin Sodium 147 H Potassium Chloride 112.3 H Carbon Dioxide BUN 62 H Creatinine 1.5 H Glucose 73 L POC Glucose Hemoglobin A1c Lactic Acid Calcium 7.9 L Ionized Calcium Phosphorus AST ALT Alkaline Phosphatase Ammonia Lactate Dehydrogenase Total Creatine Kinase Troponin T C-Reactive Protein Total Protein Albumin Triglycerides LDL Cholesterol Direct HDL Cholesterol Arterial Blood Glucose Arterial Blood Ionized Calcium Urine WBC (Auto) Salicylates Crossmatch 08/11/20 08/11/20 08/11/20 11:56 17:43 18:40 WBC RBC Hgb Hct MCV MCH MCHC RDW Plt Count Seg Neuts % (Manual) Lymphocytes % (Manual) Seg Neutrophils # Man Lymphocytes # (Manual) Haptoglobin PT 15.7 H INR 1.19 H ABG pH POC ABG pCO2 POC ABG pO2 ABG pO2 ABG O2 Saturation ABG Hemoglobin ABG Oxyhemoglobin ABG Sodium ABG Potassium ABG Chloride ABG Glucose Oxyhemoglobin Carboxyhemoglobin Sodium Potassium Chloride Carbon Dioxide BUN Creatinine Glucose POC Glucose 53 L 113 H Hemoglobin A1c Lactic Acid Calcium Ionized Calcium Phosphorus AST ALT Alkaline Phosphatase Ammonia Lactate Dehydrogenase Total Creatine Kinase Troponin T C-Reactive Protein Total Protein Albumin Triglycerides LDL Cholesterol Direct HDL Cholesterol Arterial Blood Glucose Arterial Blood Ionized Calcium Urine WBC (Auto) Salicylates Crossmatch 08/11/20 08/11/20 08/11/20 18:40 20:10 22:13 WBC RBC Hgb 6.2 L 6.1 L Hct 18.4 L* 18.3 L* MCV MCH MCHC RDW Plt Count Seg Neuts % (Manual) Lymphocytes % (Manual) Seg Neutrophils # Man Lymphocytes # (Manual) Haptoglobin PT INR ABG pH POC ABG pCO2 POC ABG pO2 163.6 H ABG pO2 ABG O2 Saturation ABG Hemoglobin 7.7 L ABG Oxyhemoglobin 98.3 H ABG Sodium ABG Potassium ABG Chloride 112.0 H ABG Glucose 119 H Oxyhemoglobin Carboxyhemoglobin Sodium Potassium Chloride Carbon Dioxide BUN Creatinine Glucose POC Glucose Hemoglobin A1c Lactic Acid Calcium Ionized Calcium Phosphorus AST ALT Alkaline Phosphatase Ammonia Lactate Dehydrogenase Total Creatine Kinase Troponin T C-Reactive Protein Total Protein Albumin Triglycerides LDL Cholesterol Direct HDL Cholesterol Arterial Blood Glucose 119 H Arterial Blood Ionized Calcium 4.4 L Urine WBC (Auto) Salicylates Crossmatch 08/11/20 08/12/20 08/12/20 23:32 04:43 04:43 WBC RBC Hgb Hct MCV MCH MCHC RDW Plt Count Seg Neuts % (Manual) Lymphocytes % (Manual) Seg Neutrophils # Man Lymphocytes # (Manual) Haptoglobin PT INR ABG pH POC ABG pCO2 POC ABG pO2 ABG pO2 ABG O2 Saturation ABG Hemoglobin ABG Oxyhemoglobin ABG Sodium ABG Potassium ABG Chloride ABG Glucose Oxyhemoglobin Carboxyhemoglobin Sodium Potassium Chloride Carbon Dioxide BUN Creatinine Glucose POC Glucose 106 H Hemoglobin A1c Lactic Acid Calcium Ionized Calcium Phosphorus AST 57 H ALT Alkaline Phosphatase 288 H Ammonia Lactate Dehydrogenase 239 H Total Creatine Kinase Troponin T C-Reactive Protein Total Protein 6.0 L Albumin 1.7 L Triglycerides LDL Cholesterol Direct HDL Cholesterol Arterial Blood Glucose Arterial Blood Ionized Calcium Urine WBC (Auto) Salicylates Crossmatch 08/12/20 08/12/20 08/12/20 04:43 04:53 05:07 WBC RBC 3.03 L Hgb 8.5 L Hct 25.6 L D MCV MCH MCHC RDW 18.4 H Plt Count Seg Neuts % (Manual) 88.0 H Lymphocytes % (Manual) 6.0 L Seg Neutrophils # Man Lymphocytes # (Manual) 0.4 L Haptoglobin 420 H PT INR ABG pH POC ABG pCO2 POC ABG pO2 ABG pO2 ABG O2 Saturation ABG Hemoglobin ABG Oxyhemoglobin ABG Sodium ABG Potassium ABG Chloride ABG Glucose Oxyhemoglobin Carboxyhemoglobin Sodium Potassium Chloride Carbon Dioxide BUN Creatinine Glucose POC Glucose 139 H Hemoglobin A1c Lactic Acid Calcium Ionized Calcium Phosphorus AST ALT Alkaline Phosphatase Ammonia Lactate Dehydrogenase Total Creatine Kinase Troponin T C-Reactive Protein Total Protein Albumin Triglycerides LDL Cholesterol Direct HDL Cholesterol Arterial Blood Glucose Arterial Blood Ionized Calcium Urine WBC (Auto) Salicylates Crossmatch 08/12/20 08/12/20 08/12/20 07:55 07:55 11:17 WBC RBC 2.90 L Hgb 8.1 L Hct 24.4 L MCV MCH MCHC RDW 18.9 H Plt Count Seg Neuts % (Manual) Lymphocytes % (Manual) Seg Neutrophils # Man Lymphocytes # (Manual) Haptoglobin PT INR ABG pH POC ABG pCO2 POC ABG pO2 ABG pO2 ABG O2 Saturation ABG Hemoglobin ABG Oxyhemoglobin ABG Sodium ABG Potassium ABG Chloride ABG Glucose Oxyhemoglobin Carboxyhemoglobin Sodium Potassium 3.3 L Chloride 109.8 H Carbon Dioxide BUN 52 H Creatinine Glucose 153 H POC Glucose 150 H Hemoglobin A1c Lactic Acid Calcium 8.1 L Ionized Calcium Phosphorus AST ALT Alkaline Phosphatase Ammonia Lactate Dehydrogenase Total Creatine Kinase Troponin T C-Reactive Protein Total Protein Albumin Triglycerides LDL Cholesterol Direct HDL Cholesterol Arterial Blood Glucose Arterial Blood Ionized Calcium Urine WBC (Auto) Salicylates Crossmatch 08/12/20 08/12/20 08/12/20 13:05 17:29 18:28 WBC RBC Hgb Hct MCV MCH MCHC RDW Plt Count Seg Neuts % (Manual) Lymphocytes % (Manual) Seg Neutrophils # Man Lymphocytes # (Manual) Haptoglobin PT INR ABG pH POC ABG pCO2 POC ABG pO2 ABG pO2 ABG O2 Saturation ABG Hemoglobin ABG Oxyhemoglobin ABG Sodium ABG Potassium ABG Chloride ABG Glucose Oxyhemoglobin Carboxyhemoglobin Sodium Potassium Chloride Carbon Dioxide BUN Creatinine Glucose POC Glucose 143 H 158 H 158 H Hemoglobin A1c Lactic Acid Calcium Ionized Calcium Phosphorus AST ALT Alkaline Phosphatase Ammonia Lactate Dehydrogenase Total Creatine Kinase Troponin T C-Reactive Protein Total Protein Albumin Triglycerides LDL Cholesterol Direct HDL Cholesterol Arterial Blood Glucose Arterial Blood Ionized Calcium Urine WBC (Auto) Salicylates Crossmatch 08/12/20 08/13/20 08/13/20 23:22 05:32 09:58 WBC RBC 2.79 L Hgb 7.9 L Hct 23.5 L MCV MCH MCHC RDW 18.9 H Plt Count Seg Neuts % (Manual) Lymphocytes % (Manual) Seg Neutrophils # Man Lymphocytes # (Manual) Haptoglobin PT INR ABG pH POC ABG pCO2 POC ABG pO2 ABG pO2 ABG O2 Saturation ABG Hemoglobin ABG Oxyhemoglobin ABG Sodium ABG Potassium ABG Chloride ABG Glucose Oxyhemoglobin Carboxyhemoglobin Sodium Potassium Chloride Carbon Dioxide BUN Creatinine Glucose POC Glucose 191 H 131 H Hemoglobin A1c Lactic Acid Calcium Ionized Calcium Phosphorus AST ALT Alkaline Phosphatase Ammonia Lactate Dehydrogenase Total Creatine Kinase Troponin T C-Reactive Protein Total Protein Albumin Triglycerides LDL Cholesterol Direct HDL Cholesterol Arterial Blood Glucose Arterial Blood Ionized Calcium Urine WBC (Auto) Salicylates Crossmatch 08/13/20 08/13/20 08/13/20 09:58 12:07 12:10 WBC RBC Hgb Hct MCV MCH MCHC RDW Plt Count Seg Neuts % (Manual) Lymphocytes % (Manual) Seg Neutrophils # Man Lymphocytes # (Manual) Haptoglobin PT INR ABG pH POC ABG pCO2 POC ABG pO2 ABG pO2 ABG O2 Saturation ABG Hemoglobin ABG Oxyhemoglobin ABG Sodium ABG Potassium ABG Chloride ABG Glucose Oxyhemoglobin Carboxyhemoglobin Sodium Potassium 3.5 L Chloride 109.1 H Carbon Dioxide BUN 51 H Creatinine Glucose 168 H POC Glucose 142 H 159 H Hemoglobin A1c Lactic Acid Calcium 8.0 L Ionized Calcium Phosphorus AST ALT Alkaline Phosphatase Ammonia Lactate Dehydrogenase Total Creatine Kinase Troponin T C-Reactive Protein Total Protein Albumin Triglycerides LDL Cholesterol Direct HDL Cholesterol Arterial Blood Glucose Arterial Blood Ionized Calcium Urine WBC (Auto) Salicylates Crossmatch 08/13/20 08/13/20 08/14/20 17:17 23:17 05:10 WBC RBC Hgb Hct MCV MCH MCHC RDW Plt Count Seg Neuts % (Manual) Lymphocytes % (Manual) Seg Neutrophils # Man Lymphocytes # (Manual) Haptoglobin PT INR ABG pH POC ABG pCO2 POC ABG pO2 ABG pO2 ABG O2 Saturation ABG Hemoglobin ABG Oxyhemoglobin ABG Sodium ABG Potassium ABG Chloride ABG Glucose Oxyhemoglobin Carboxyhemoglobin Sodium Potassium Chloride Carbon Dioxide BUN Creatinine Glucose POC Glucose 137 H 157 H 153 H Hemoglobin A1c Lactic Acid Calcium Ionized Calcium Phosphorus AST ALT Alkaline Phosphatase Ammonia Lactate Dehydrogenase Total Creatine Kinase Troponin T C-Reactive Protein Total Protein Albumin Triglycerides LDL Cholesterol Direct HDL Cholesterol Arterial Blood Glucose Arterial Blood Ionized Calcium Urine WBC (Auto) Salicylates Crossmatch 08/14/20 08/14/20 08/14/20 11:35 12:05 13:01 WBC RBC 2.73 L Hgb 7.7 L Hct 22.6 L MCV 83 L MCH MCHC RDW 18.4 H Plt Count Seg Neuts % (Manual) Lymphocytes % (Manual) Seg Neutrophils # Man Lymphocytes # (Manual) Haptoglobin PT INR ABG pH POC ABG pCO2 POC ABG pO2 ABG pO2 75.1 L ABG O2 Saturation ABG Hemoglobin 7.7 L ABG Oxyhemoglobin ABG Sodium ABG Potassium ABG Chloride ABG Glucose Oxyhemoglobin 94.8 L Carboxyhemoglobin Sodium Potassium Chloride Carbon Dioxide BUN Creatinine Glucose POC Glucose 175 H Hemoglobin A1c Lactic Acid Calcium Ionized Calcium Phosphorus AST ALT Alkaline Phosphatase Ammonia Lactate Dehydrogenase Total Creatine Kinase Troponin T C-Reactive Protein Total Protein Albumin Triglycerides LDL Cholesterol Direct HDL Cholesterol Arterial Blood Glucose Arterial Blood Ionized Calcium Urine WBC (Auto) Salicylates Crossmatch 08/14/20 08/14/20 08/14/20 13:01 17:55 23:25 WBC RBC Hgb Hct MCV MCH MCHC RDW Plt Count Seg Neuts % (Manual) Lymphocytes % (Manual) Seg Neutrophils # Man Lymphocytes # (Manual) Haptoglobin PT INR ABG pH POC ABG pCO2 POC ABG pO2 ABG pO2 ABG O2 Saturation ABG Hemoglobin ABG Oxyhemoglobin ABG Sodium ABG Potassium ABG Chloride ABG Glucose Oxyhemoglobin Carboxyhemoglobin Sodium Potassium Chloride 107.3 H Carbon Dioxide BUN 49 H Creatinine Glucose 191 H POC Glucose 178 H 150 H Hemoglobin A1c Lactic Acid Calcium 7.9 L Ionized Calcium Phosphorus AST ALT Alkaline Phosphatase Ammonia Lactate Dehydrogenase Total Creatine Kinase Troponin T C-Reactive Protein Total Protein Albumin Triglycerides LDL Cholesterol Direct HDL Cholesterol Arterial Blood Glucose Arterial Blood Ionized Calcium Urine WBC (Auto) Salicylates Crossmatch 08/15/20 08/15/20 08/15/20 04:04 10:28 10:38 WBC RBC 2.94 L Hgb 8.3 L Hct 24.6 L MCV MCH MCHC RDW 18.7 H Plt Count 112 L Seg Neuts % (Manual) Lymphocytes % (Manual) Seg Neutrophils # Man Lymphocytes # (Manual) Haptoglobin PT INR ABG pH POC ABG pCO2 POC ABG pO2 ABG pO2 ABG O2 Saturation ABG Hemoglobin ABG Oxyhemoglobin ABG Sodium ABG Potassium ABG Chloride ABG Glucose Oxyhemoglobin Carboxyhemoglobin Sodium Potassium Chloride 107.4 H Carbon Dioxide BUN 47 H Creatinine Glucose 51 L POC Glucose 44 L Hemoglobin A1c Lactic Acid Calcium 8.3 L Ionized Calcium Phosphorus AST ALT Alkaline Phosphatase Ammonia Lactate Dehydrogenase Total Creatine Kinase Troponin T C-Reactive Protein Total Protein Albumin Triglycerides LDL Cholesterol Direct HDL Cholesterol Arterial Blood Glucose Arterial Blood Ionized Calcium Urine WBC (Auto) Salicylates Crossmatch 08/15/20 Unknown WBC RBC Hgb Hct MCV MCH MCHC RDW Plt Count Seg Neuts % (Manual) Lymphocytes % (Manual) Seg Neutrophils # Man Lymphocytes # (Manual) Haptoglobin PT INR ABG pH POC ABG pCO2 POC ABG pO2 ABG pO2 77.7 L ABG O2 Saturation ABG Hemoglobin 9.2 L ABG Oxyhemoglobin ABG Sodium ABG Potassium ABG Chloride ABG Glucose Oxyhemoglobin 94.9 L Carboxyhemoglobin Sodium Potassium Chloride Carbon Dioxide BUN Creatinine Glucose POC Glucose Hemoglobin A1c Lactic Acid Calcium Ionized Calcium Phosphorus AST ALT Alkaline Phosphatase Ammonia Lactate Dehydrogenase Total Creatine Kinase Troponin T C-Reactive Protein Total Protein Albumin Triglycerides LDL Cholesterol Direct HDL Cholesterol Arterial Blood Glucose Arterial Blood Ionized Calcium Urine WBC (Auto) Salicylates Crossmatch Additional Studies: US Chest with L>R effusions Allied health notes reviewed: nursing
[2020-08-16] MEDS: INSULIN LISPRO 100 UNIT/ML SUB-Q SCH ×4 (04:35→18:06)
[2020-08-16] MEDS: FREE WATER PO SCH ×4 (04:36→22:03)
[2020-08-16 08:20] LABS: Hematocrit 22.9 % (35.5-45.6); Hemoglobin 7.6 gm/dl (11.8-15.2); Mean Corpuscular HGB Conc 33 % (32-34); Mean Corpuscular Volume 85 fl (84-94); Platelet Count 184 K/mm3 (140-440); Red Cell Distribution Width 18.5 % (13.2-15.2)
[2020-08-16 08:35] LABS: BUN/Creatinine Ratio 50; Blood Urea Nitrogen 45 mg/dL (9-20); Calcium 7.7 mg/dL (8.4-10.2)
[2020-08-16] MEDS: FAMOTIDINE 20 MG TAB PO SCH ×2 (09:15→21:57)
[2020-08-16] MEDS: ASCORBIC ACID 500 MG TAB PO SCH ×2 (09:15→21:57)
[2020-08-16] MEDS: ZINC SULFATE 220 MG CAP PO SCH ×2 (09:15→21:57)
[2020-08-16] MEDS: SCOPOLAMINE TRANSDERMAL PATCH 72 HR TD SCH (09:15)
[2020-08-16] MEDS: amLODIPine 10 MG TAB PO SCH (09:15)
[2020-08-16] MEDS: SENNOSIDES/DOCUSATE SODIUM 8.6/50 MG TAB FEEDTUBE SCH ×2 (09:15→22:02)
[2020-08-16] MEDS: METOPROLOL TARTRATE 25 MG TAB PO SCH ×2 (09:16→21:57)
[2020-08-16] MEDS ORDERED: GLYCOPYRROLATE 1 MG TAB PO SCH (10:00)
--- NOTE | 2020-08-16 10:09 | Progress Note ---
Assessment and Plan - Patient Problems (1) Bradycardia Current Visit: Yes Status: Acute Plan to address problem: No further bradycardia. An echocardiogram this presentation showed well-preserved left ventricular systolic function with ejection fraction 50 to 55%. Will continue supportive cardiac management. Subjective Date of service: 08/16/20 Principal diagnosis: Ac. encephalopathy; Ac. hypoxemic resp failure; Septic Shock; PNA; UTI; [place] Interval history: Patient is on mechanical ventilation via tracheostomy. Currently, stable sinus rhythm on telemetry monitoring. Objective Vital Signs Temp Pulse Pulse Resp BP Pulse Ox Pulse Ox 08/16/20 09:16 94 H 169/72 08/16/20 09:15 101 H 169/72 08/16/20 08:56 90 196/81 92 08/16/20 08:19 88 36 H 175/80 95 08/16/20 08:00 97.7 F 08/16/20 06:01 83 29 H 134/67 95 08/16/20 05:01 89 32 H 137/71 93 08/16/20 04:01 84 28 H 133/69 91 08/16/20 04:00 85 84 28 H 91 08/16/20 03:39 96.2 F L 08/16/20 03:08 89 179/77 93 93 08/16/20 03:01 85 30 H 179/77 90 08/16/20 02:00 78 34 H 147/69 92 08/16/20 01:01 70 28 H 156/71 93 08/16/20 00:01 59 L 24 140/75 96 08/16/20 00:00 58 L 70 28 H 93 08/15/20 23:44 64 131/74 95 94 08/15/20 23:25 63 27 H 121/68 94 08/15/20 23:01 64 26 H 144/72 95 08/15/20 22:01 69 26 H 132/65 94 08/15/20 21:22 80 142/72 08/15/20 21:01 77 27 H 132/63 95 08/15/20 20:01 70 27 H 138/68 95 08/15/20 20:00 69 70 27 H 95 08/15/20 19:01 73 27 H 129/66 92 08/15/20 18:38 71 142/74 95 08/15/20 18:01 70 25 H 142/66 95 08/15/20 17:01 71 27 H 159/78 92 08/15/20 16:38 97.9 F 08/15/20 16:24 69 144/74 92 08/15/20 16:01 72 27 H 141/71 91 08/15/20 16:00 70 70 28 H 97 08/15/20 15:01 69 25 H 151/72 93 08/15/20 14:01 74 29 H 152/69 96 08/15/20 13:00 74 30 H 142/74 95 08/15/20 12:14 70 150/69 97 08/15/20 12:13 97 08/15/20 12:01 71 26 H 146/70 97 08/15/20 12:00 67 69 28 H 97 08/15/20 11:50 97.7 F 08/15/20 11:01 69 22 157/74 97 - Physical Examination General: Other (On the vent, via tracheostomy) HEENT: Positive: Normocephaly Neck: Positive: Other (tracheostomy in place) Cardiac: Positive: Reg Rate and Rhythm Neuro: Positive: Other (On the vent, via tracheostomy; History of quadriplegia) Extremities: Absent: edema - Labs and Meds Coagulation 08/15/20 Range/Units 10:28 PT 14.7 (12.2-14.9) Sec. INR 1.09 (0.87-1.13) CBC 08/16/20 Range/Units 08:02 WBC 4.1 L (4.5-11.0) K/mm3 RBC 2.70 L (3.65-5.03) M/mm3 Hgb 7.6 L (11.8-15.2) gm/dl Hct 22.9 L (35.5-45.6) % Plt Count 184 (140-440) K/mm3 Comprehensive Metabolic Panel 08/15/20 08/16/20 Range/Units 10:28 08:02 Sodium 142 143 (137-145) mmol/L Potassium 3.6 3.8 (3.6-5.0) mmol/L Chloride 107.4 H 110.1 H (98-107) mmol/L Carbon Dioxide 26 24 (22-30) mmol/L BUN 47 H 45 H (9-20) mg/dL Creatinine 1.0 0.9 (0.8-1.3) mg/dL Glucose 51 L 187 H (75-100) mg/dL Calcium 8.3 L 7.7 L (8.4-10.2) mg/dL - Allied health notes Allied health notes reviewed: nursing
--- NOTE | 2020-08-16 10:22 | Progress Note ---
Assessment and Plan Cultures: 07/28/2020 blood culture: C albicans 07/28/2020 urine culture: No growth COVID PCR: negative 07/31/2020 blood culture: Coag negative staph in 1 of 4 bottles (contaminant) 08/02/2020 blood culture: No growth 08/06/2020 Resp culture: normal resp hawk 08/06/2020 BAL AFB stain: negative 08/06/2020 BAL fungal culture: stain positive, culture in process. A/P: 69-year-old retirement resident with quadriplegia, spinal cord injury, was brought in due to fever and sepsis: #Septic shock: Resolved likely due to candidemia +/-pneumonia. #Candidemia: Unclear source. ?IV line. Transthoracic echo without vegetation. Repeat blood culture no growth. Completed fluconazole course. #Pneumonia: CT chest showed patchy airspace disease suggestive of possible aspiration. Chest x-ray with left lung whiteout, got bronch with suctioning of mucous plug, cultures with normal resp hawk. Treated with abx. #B/L pleural effusions #UTI with chronic indwelling catheter: s/p abx #Acute hypoxic respiratory failure: On mechanical ventilation. #Transaminitis: Likely sepsis/shock related. Improved. #Sacral decubitus ulcer: Continue wound care, offloading as possible Recs: -continue off antimicrobials -f/u thoracentesis results Dominga Simmons MD, FACP [facility] O: [phone] F: [phone] Subjective Date of service: 08/16/20 Principal diagnosis: Ac. encephalopathy; Ac. hypoxemic resp failure; Septic Shock; PNA; UTI; [place] Interval history: Remains afebrile, on the vent via trach. Remains off abx. Awake, tracking + Objective - Exam Narrative Exam: Physical Exam: Constitutional: eyes open, tracks, on the vent via trach Head, Ears, Nose: Normocephalic, atraumatic. External ears, nose normal Eyes: Conjunctivae/corneas clear. No icterus. No ptosis. Neck: trach + Cardiovascular: S1, S2 + Respiratory: AE decreased in the bases GI: Soft, bowel sounds +, G tube + Musculoskeletal: pedal edema + Skin: No rash or abscess Hem/Lymphatic: No palpable cervical or supraclavicular nodes. No lymphangitis Psych: no agitation Neurological: eyes open, tracking - Constitutional Vitals: Vital Signs Temp Pulse Resp BP Pulse Ox 97.7 F 81 21 166/82 100 08/16/20 08:00 08/16/20 10:00 08/16/20 10:00 08/16/20 10:00 08/16/20 10:00 Temperature -Last 24 Hours Temperature 97.7 F Temperature 96.2 F Temperature 97.9 F Temperature 97.7 F - Labs CBC & Chem 7: 08/16/20 08:02 08/16/20 08:02 Labs: Abnormal lab results 08/15/20 08/15/20 08/15/20 Range/Units 10:28 10:38 17:31 WBC (4.5-11.0) K/mm3 RBC (3.65-5.03) M/mm3 Hgb (11.8-15.2) gm/dl Hct (35.5-45.6) % RDW (13.2-15.2) % Chloride 107.4 H (98-107) mmol/L BUN 47 H (9-20) mg/dL Glucose 51 L (75-100) mg/dL POC Glucose 44 L 64 L (70-105) mg/dL Calcium 8.3 L (8.4-10.2) mg/dL 08/15/20 08/16/20 08/16/20 Range/Units 23:15 05:09 08:02 WBC 4.1 L (4.5-11.0) K/mm3 RBC 2.70 L (3.65-5.03) M/mm3 Hgb 7.6 L (11.8-15.2) gm/dl Hct 22.9 L (35.5-45.6) % RDW 18.5 H (13.2-15.2) % Chloride (98-107) mmol/L BUN (9-20) mg/dL Glucose (75-100) mg/dL POC Glucose 114 H 204 H (70-105) mg/dL Calcium (8.4-10.2) mg/dL 08/16/20 Range/Units 08:02 WBC (4.5-11.0) K/mm3 RBC (3.65-5.03) M/mm3 Hgb (11.8-15.2) gm/dl Hct (35.5-45.6) % RDW (13.2-15.2) % Chloride 110.1 H (98-107) mmol/L BUN 45 H (9-20) mg/dL Glucose 187 H (75-100) mg/dL POC Glucose (70-105) mg/dL Calcium 7.7 L (8.4-10.2) mg/dL
--- NOTE | 2020-08-16 12:55 | Progress Note ---
Assessment and Plan Acute possibly on chronic toxic metabolic encephalopathy Acute hypoxemic respiratory failure on MVS Severe sepsis with shock, presumably secondary to aspiration pneumonia Recent upper ext DVT (06/06) Aspiration pneumonia, bilateral Urinary tract infection History of quadriplegia Leukocytosis Anemia that is microcytic Coagulopathy. INR 2.17 at presentation Mild hypokalemia Acute kidney injury Metabolic lactic acidosis Non-ST elevation myocardial infarction Adult failure to thrive Moderate to severe protein calorie malnutrition - resume Lovenox tomorrow (platelet count rebounded) - wound care per RN / WCN - follow thoracentesis / fluid studies (therapeutic; with cell count and differential sent re: ? Hemothorax) - keep peep at 8 - LTAC evaluation ongoing - continue care as below otherwise; - prn Levophed for target MAP > 65 mmHg - continue to wean supplemental oxygen for target O2 sat's > 90% acutely - VAP bundle addressed - continue lung protective strategies - continue bronchodilators with routine trach care and pulmonary hygiene per RT - wean per pulmonary driven protocols otherwise - avoid nephrotoxins, renally dose all medications - continue to avoid benzodiazepine's, reduce the possibility of delirium - complete antiinfective's per ID rec's (Diflucan to end tomorrow) - prn analgesia per CPOT score - Maintenance of sleep-wake cycle, avoid delirium - continue enteral nutritional support at goal rate as tolerated - G.I. & VTE prophylaxis - PT/OT/ROM exercises - continue mobility protocols for pressure ulcer prophylaxis - Monitor hemodynamics closely - continue other care per attending / other consultants - discharge planning ongoing concurrently COVID SPECIFIC INTERVENTIONS: - COVID test result negative .... Re-evaluate in am & prn CONDITION: CRITICAL PROGNOSIS: GUARDED CODE STATUS: FULL CODE The high probability of a clinically significant, sudden or life-threatening deterioration of the [respiratory, cardiovascular & neurologic] system(s) required my full and direct attention, intervention and personal management. The aggregate critical care time was [36] minutes without overlap. Time includes spent on; [x] Data Review and interpretation [x] Patient assessment and monitoring of vital signs [x] Documentation [x] Medication orders and management Subjective Date of service: 08/16/20 Principal diagnosis: Ac. encephalopathy; Ac. hypoxemic resp failure; Septic Shock; PNA; UTI; JEFFERSON Interval history: Patient is seen today for: Acute encephalopathy; Acute hypoxemic respiratory failure; Septic Shock; Aspiration pneumonia; UTI; quadriplegia; JEFFERSON Seen and examined at bedside; 24hour events reviewed; nursing and respiratory care staff consulted; no adverse overnight events reported to me; resting in bed; remains on MVS; awaiting thoracentesis; no new issues but tolerated only 2 hours on SBT today Objective Vital Signs - 12hr 08/16/20 08/16/20 08/16/20 01:01 02:00 03:01 Temperature Pulse Rate 70 78 85 Pulse Rate [ From Monitor] Respiratory 28 H 34 H 30 H Rate Blood Pressure 156/71 147/69 179/77 O2 Sat by Pulse 93 92 90 Oximetry O2 Sat by Pulse Oximetry [ Assessment] 08/16/20 08/16/20 08/16/20 03:08 03:39 04:00 Temperature 96.2 F L Pulse Rate 89 85 Pulse Rate [ 84 From Monitor] Respiratory 28 H Rate Blood Pressure 179/77 O2 Sat by Pulse 93 91 Oximetry O2 Sat by Pulse 93 Oximetry [ Assessment] 08/16/20 08/16/20 08/16/20 04:01 05:01 06:01 Temperature Pulse Rate 84 89 83 Pulse Rate [ From Monitor] Respiratory 28 H 32 H 29 H Rate Blood Pressure 133/69 137/71 134/67 O2 Sat by Pulse 91 93 95 Oximetry O2 Sat by Pulse Oximetry [ Assessment] 08/16/20 08/16/20 08/16/20 07:01 08:00 08:01 Temperature 97.7 F Pulse Rate 88 88 Pulse Rate [ 83 From Monitor] Respiratory 30 H 28 H 31 H Rate Blood Pressure 136/68 154/74 O2 Sat by Pulse 94 95 95 Oximetry O2 Sat by Pulse Oximetry [ Assessment] 08/16/20 08/16/20 08/16/20 08:19 08:56 09:00 Temperature Pulse Rate 88 90 95 H Pulse Rate [ From Monitor] Respiratory 36 H 27 H Rate Blood Pressure 175/80 196/81 196/81 O2 Sat by Pulse 95 92 93 Oximetry O2 Sat by Pulse Oximetry [ Assessment] 08/16/20 08/16/20 08/16/20 09:15 09:16 10:00 Temperature Pulse Rate 101 H 94 H 81 Pulse Rate [ From Monitor] Respiratory 21 Rate Blood Pressure 169/72 169/72 166/82 O2 Sat by Pulse 100 Oximetry O2 Sat by Pulse Oximetry [ Assessment] 07/03/0808/16/20 08/16/20 12:00 12:02 12:04 Temperature 97.5 F L Pulse Rate 81 Pulse Rate [ From Monitor] Respiratory Rate Blood Pressure 150/71 O2 Sat by Pulse 95 Oximetry O2 Sat by Pulse 95 Oximetry [ Assessment] Constitutional: appears uncomfortable, other ( chronically ill looking male with mildly increased respiratory effort at rest on MVS) Eyes: non-icteric ENT: oropharynx moist, oropharyngeal exudate pre (clear, frothy), other (ETT 24 cm KEVIN) Neck: supple, no lymphadenopathy, no JVD, other (wound to posterior neck from C- collar) Effort: mildly labored Ascultation: Bilateral: diminished breath sounds, rhonchi Percussion: Bilateral: not dull Cardiovascular: regular rate and rhythm, other (S1,S2) Gastrointestinal: normoactive bowel sounds, soft, non-tender, non-distended, other (no patricio cullens sign) Integumentary: rash, decubitus ulcer (sacral (POA)) Extremities: no cyanosis, pulses normal, edema (lower extremities and bilatral upper extremity) Neurologic: pupils equal and round, unable to assess, other (quadriplegic) Psychiatric: mood appropriate, affect normal, other (calm) CBC and BMP: 08/16/20 08:02 08/16/20 08:02 ABG, PT/INR, D-dimer: ABG ABG pH 7.431 pH Units (7.350-7.450) 08/15/20 Unknown POC ABG pCO2 46.9 mmHg (32.0-48.0) 08/11/20 22:13 ABG pCO2 35.7 mm Hg 08/15/20 Unknown POC ABG pO2 163.6 mmHg (83-108) H 08/11/20 22:13 ABG pO2 77.7 mm Hg (80.0-90.0) L 08/15/20 Unknown POC ABG HCO3 25.5 08/11/20 22:13 ABG O2 Saturation 96.5 % (95.0-99.0) 08/15/20 Unknown PT/INR, D-dimer PT 14.7 Sec. (12.2-14.9) 08/15/20 10:28 INR 1.09 (0.87-1.13) 08/15/20 10:28 Abnormal lab findings: Abnormal Labs 07/28/20 07/28/20 07/28/20 08:48 08:48 08:48 WBC 17.0 H RBC 2.77 L Hgb 8.2 L Hct 26.5 L MCV 96 H MCH MCHC 31 L RDW 16.2 H Plt Count Seg Neuts % (Manual) Lymphocytes % (Manual) Seg Neutrophils # Man Lymphocytes # (Manual) Haptoglobin PT 24.7 H INR 2.17 H ABG pH POC ABG pCO2 POC ABG pO2 ABG pO2 ABG O2 Saturation ABG Hemoglobin ABG Oxyhemoglobin ABG Sodium ABG Potassium ABG Chloride ABG Glucose Oxyhemoglobin Carboxyhemoglobin Sodium 135 L Potassium 3.5 L Chloride 97.6 L Carbon Dioxide BUN 44 H Creatinine 1.6 H Glucose 431 H POC Glucose Hemoglobin A1c Lactic Acid Calcium 7.9 L Ionized Calcium Phosphorus AST 81 H ALT Alkaline Phosphatase Ammonia Lactate Dehydrogenase Total Creatine Kinase 486 H Troponin T 0.115 H* C-Reactive Protein Total Protein 5.6 L Albumin 2.6 L Triglycerides LDL Cholesterol Direct 44 L HDL Cholesterol 26 L Arterial Blood Glucose Arterial Blood Ionized Calcium Urine WBC (Auto) Salicylates Crossmatch 07/28/20 07/28/20 07/28/20 08:48 09:44 09:44 WBC RBC Hgb Hct MCV MCH MCHC RDW Plt Count Seg Neuts % (Manual) Lymphocytes % (Manual) Seg Neutrophils # Man Lymphocytes # (Manual) Haptoglobin PT INR ABG pH POC ABG pCO2 POC ABG pO2 ABG pO2 ABG O2 Saturation ABG Hemoglobin ABG Oxyhemoglobin ABG Sodium ABG Potassium ABG Chloride ABG Glucose Oxyhemoglobin Carboxyhemoglobin Sodium Potassium Chloride Carbon Dioxide BUN Creatinine Glucose POC Glucose Hemoglobin A1c Lactic Acid 3.80 H* Calcium Ionized Calcium Phosphorus AST ALT Alkaline Phosphatase Ammonia 63.0 H Lactate Dehydrogenase Total Creatine Kinase Troponin T C-Reactive Protein Total Protein Albumin Triglycerides LDL Cholesterol Direct HDL Cholesterol Arterial Blood Glucose Arterial Blood Ionized Calcium Urine WBC (Auto) Salicylates < 0.3 L Crossmatch 07/28/20 07/28/20 07/28/20 10:18 14:38 15:58 WBC RBC Hgb Hct MCV MCH MCHC RDW Plt Count Seg Neuts % (Manual) Lymphocytes % (Manual) Seg Neutrophils # Man Lymphocytes # (Manual) Haptoglobin PT INR ABG pH POC ABG pCO2 POC ABG pO2 ABG pO2 78.0 L ABG O2 Saturation ABG Hemoglobin 7.6 L ABG Oxyhemoglobin ABG Sodium ABG Potassium ABG Chloride ABG Glucose Oxyhemoglobin Carboxyhemoglobin Sodium Potassium Chloride Carbon Dioxide BUN Creatinine Glucose POC Glucose 265 H Hemoglobin A1c Lactic Acid 3.90 H* Calcium Ionized Calcium Phosphorus AST ALT Alkaline Phosphatase Ammonia Lactate Dehydrogenase Total Creatine Kinase Troponin T C-Reactive Protein Total Protein Albumin Triglycerides LDL Cholesterol Direct HDL Cholesterol Arterial Blood Glucose Arterial Blood Ionized Calcium Urine WBC (Auto) Salicylates Crossmatch 07/28/20 07/28/20 07/28/20 19:50 21:00 Unknown WBC RBC Hgb Hct MCV MCH MCHC RDW Plt Count Seg Neuts % (Manual) Lymphocytes % (Manual) Seg Neutrophils # Man Lymphocytes # (Manual) Haptoglobin PT INR ABG pH 7.107 L POC ABG pCO2 65.6 H POC ABG pO2 ABG pO2 ABG O2 Saturation ABG Hemoglobin 9.9 L ABG Oxyhemoglobin ABG Sodium ABG Potassium ABG Chloride 108.0 H ABG Glucose 299 H Oxyhemoglobin Carboxyhemoglobin 0.2 L Sodium Potassium Chloride Carbon Dioxide BUN Creatinine Glucose POC Glucose Hemoglobin A1c Lactic Acid Calcium Ionized Calcium Phosphorus 5.40 H AST ALT Alkaline Phosphatase Ammonia Lactate Dehydrogenase Total Creatine Kinase Troponin T C-Reactive Protein 9.00 H Total Protein Albumin Triglycerides LDL Cholesterol Direct HDL Cholesterol Arterial Blood Glucose 299 H Arterial Blood Ionized Calcium 4.2 L Urine WBC (Auto) > 182.0 H Salicylates Crossmatch 07/29/20 07/29/20 07/29/20 04:02 13:00 17:13 WBC RBC Hgb Hct MCV MCH MCHC RDW Plt Count Seg Neuts % (Manual) Lymphocytes % (Manual) Seg Neutrophils # Man Lymphocytes # (Manual) Haptoglobin PT INR ABG pH 7.212 L POC ABG pCO2 52.5 H POC ABG pO2 128.3 H ABG pO2 ABG O2 Saturation ABG Hemoglobin 10.5 L ABG Oxyhemoglobin ABG Sodium ABG Potassium ABG Chloride 108.0 H ABG Glucose 239 H Oxyhemoglobin Carboxyhemoglobin Sodium Potassium Chloride Carbon Dioxide BUN Creatinine Glucose POC Glucose 212 H 257 H Hemoglobin A1c Lactic Acid Calcium Ionized Calcium Phosphorus AST ALT Alkaline Phosphatase Ammonia Lactate Dehydrogenase Total Creatine Kinase Troponin T C-Reactive Protein Total Protein Albumin Triglycerides LDL Cholesterol Direct HDL Cholesterol Arterial Blood Glucose 239 H Arterial Blood Ionized Calcium 4.0 L Urine WBC (Auto) Salicylates Crossmatch 07/29/20 07/29/20 07/29/20 21:00 23:20 Unknown WBC RBC 3.05 L Hgb 9.7 L Hct 28.6 L MCV MCH MCHC RDW 16.1 H Plt Count Seg Neuts % (Manual) 75.0 H Lymphocytes % (Manual) 2.0 L Seg Neutrophils # Man Lymphocytes # (Manual) 0.2 L Haptoglobin PT INR ABG pH 7.286 L POC ABG pCO2 POC ABG pO2 ABG pO2 ABG O2 Saturation ABG Hemoglobin 9.1 L ABG Oxyhemoglobin ABG Sodium ABG Potassium ABG Chloride 109.0 H ABG Glucose 285 H Oxyhemoglobin Carboxyhemoglobin Sodium Potassium Chloride Carbon Dioxide BUN Creatinine Glucose POC Glucose 233 H Hemoglobin A1c Lactic Acid Calcium Ionized Calcium Phosphorus AST ALT Alkaline Phosphatase Ammonia Lactate Dehydrogenase Total Creatine Kinase Troponin T C-Reactive Protein Total Protein Albumin Triglycerides LDL Cholesterol Direct HDL Cholesterol Arterial Blood Glucose 285 H Arterial Blood Ionized Calcium 3.9 L Urine WBC (Auto) Salicylates Crossmatch 07/29/20 07/29/20 07/30/20 Unknown Unknown 05:30 WBC RBC Hgb Hct MCV MCH MCHC RDW Plt Count Seg Neuts % (Manual) Lymphocytes % (Manual) Seg Neutrophils # Man Lymphocytes # (Manual) Haptoglobin PT INR ABG pH POC ABG pCO2 POC ABG pO2 ABG pO2 ABG O2 Saturation ABG Hemoglobin ABG Oxyhemoglobin ABG Sodium ABG Potassium ABG Chloride ABG Glucose Oxyhemoglobin Carboxyhemoglobin Sodium Potassium Chloride 108.4 H Carbon Dioxide 21 L BUN 41 H Creatinine Glucose 217 H POC Glucose 245 H Hemoglobin A1c Lactic Acid 2.70 H* Calcium 6.5 L D Ionized Calcium Phosphorus AST 104 H ALT 74 H Alkaline Phosphatase Ammonia Lactate Dehydrogenase Total Creatine Kinase Troponin T C-Reactive Protein Total Protein 5.1 L Albumin 2.4 L Triglycerides LDL Cholesterol Direct HDL Cholesterol Arterial Blood Glucose Arterial Blood Ionized Calcium Urine WBC (Auto) Salicylates Crossmatch 07/30/20 07/30/20 07/30/20 05:45 05:45 12:12 WBC RBC 2.50 L Hgb 7.8 L Hct 23.3 L MCV MCH MCHC RDW 16.4 H Plt Count Seg Neuts % (Manual) Lymphocytes % (Manual) Seg Neutrophils # Man Lymphocytes # (Manual) Haptoglobin PT INR ABG pH POC ABG pCO2 POC ABG pO2 ABG pO2 ABG O2 Saturation ABG Hemoglobin ABG Oxyhemoglobin ABG Sodium ABG Potassium ABG Chloride ABG Glucose Oxyhemoglobin Carboxyhemoglobin Sodium Potassium Chloride 108.4 H Carbon Dioxide 21 L BUN 44 H Creatinine 1.4 H Glucose 279 H POC Glucose 243 H Hemoglobin A1c Lactic Acid Calcium 6.7 L Ionized Calcium Phosphorus AST 51 H ALT Alkaline Phosphatase Ammonia Lactate Dehydrogenase Total Creatine Kinase Troponin T C-Reactive Protein Total Protein 5.5 L Albumin 2.3 L Triglycerides LDL Cholesterol Direct HDL Cholesterol Arterial Blood Glucose Arterial Blood Ionized Calcium Urine WBC (Auto) Salicylates Crossmatch 07/30/20 07/30/20 07/30/20 15:50 17:20 19:01 WBC RBC Hgb Hct MCV MCH MCHC RDW Plt Count Seg Neuts % (Manual) Lymphocytes % (Manual) Seg Neutrophils # Man Lymphocytes # (Manual) Haptoglobin PT INR ABG pH POC ABG pCO2 POC ABG pO2 147.2 H ABG pO2 ABG O2 Saturation ABG Hemoglobin 7.2 L ABG Oxyhemoglobin ABG Sodium ABG Potassium 3.3 L ABG Chloride 115.0 H ABG Glucose 269 H Oxyhemoglobin Carboxyhemoglobin 1.6 H Sodium Potassium Chloride Carbon Dioxide BUN Creatinine Glucose POC Glucose 260 H Hemoglobin A1c Lactic Acid Calcium Ionized Calcium 4.2 L Phosphorus AST ALT Alkaline Phosphatase Ammonia Lactate Dehydrogenase Total Creatine Kinase Troponin T C-Reactive Protein Total Protein Albumin Triglycerides LDL Cholesterol Direct HDL Cholesterol Arterial Blood Glucose 269 H Arterial Blood Ionized Calcium 3.5 L Urine WBC (Auto) Salicylates Crossmatch 07/30/20 07/31/20 07/31/20 23:16 04:04 04:47 WBC RBC Hgb Hct MCV MCH MCHC RDW Plt Count Seg Neuts % (Manual) Lymphocytes % (Manual) Seg Neutrophils # Man Lymphocytes # (Manual) Haptoglobin PT INR ABG pH POC ABG pCO2 POC ABG pO2 ABG pO2 ABG O2 Saturation ABG Hemoglobin 7.6 L ABG Oxyhemoglobin ABG Sodium ABG Potassium 3.3 L ABG Chloride 113.0 H ABG Glucose 348 H Oxyhemoglobin Carboxyhemoglobin 0.4 L Sodium Potassium Chloride Carbon Dioxide BUN Creatinine Glucose POC Glucose 298 H 297 H Hemoglobin A1c Lactic Acid Calcium Ionized Calcium Phosphorus AST ALT Alkaline Phosphatase Ammonia Lactate Dehydrogenase Total Creatine Kinase Troponin T C-Reactive Protein Total Protein Albumin Triglycerides LDL Cholesterol Direct HDL Cholesterol Arterial Blood Glucose 348 H Arterial Blood Ionized Calcium 4.1 L Urine WBC (Auto) Salicylates Crossmatch 07/31/20 07/31/20 07/31/20 07:26 07:26 11:54 WBC RBC 2.29 L Hgb 7.2 L Hct 21.5 L MCV MCH MCHC RDW 16.7 H Plt Count Seg Neuts % (Manual) Lymphocytes % (Manual) Seg Neutrophils # Man Lymphocytes # (Manual) Haptoglobin PT INR ABG pH POC ABG pCO2 POC ABG pO2 ABG pO2 ABG O2 Saturation ABG Hemoglobin ABG Oxyhemoglobin ABG Sodium ABG Potassium ABG Chloride ABG Glucose Oxyhemoglobin Carboxyhemoglobin Sodium Potassium 3.4 L Chloride 109.4 H Carbon Dioxide BUN 45 H Creatinine 1.4 H Glucose 304 H POC Glucose 302 H Hemoglobin A1c Lactic Acid Calcium 6.9 L Ionized Calcium Phosphorus AST ALT Alkaline Phosphatase Ammonia Lactate Dehydrogenase Total Creatine Kinase Troponin T C-Reactive Protein Total Protein Albumin Triglycerides LDL Cholesterol Direct HDL Cholesterol Arterial Blood Glucose Arterial Blood Ionized Calcium Urine WBC (Auto) Salicylates Crossmatch 07/31/20 08/01/20 08/01/20 21:27 03:09 04:30 WBC RBC 2.29 L Hgb 7.0 L Hct 20.7 L MCV MCH MCHC RDW 16.2 H Plt Count 125 L Seg Neuts % (Manual) Lymphocytes % (Manual) Seg Neutrophils # Man Lymphocytes # (Manual) Haptoglobin PT INR ABG pH POC ABG pCO2 POC ABG pO2 ABG pO2 ABG O2 Saturation ABG Hemoglobin 7.4 L ABG Oxyhemoglobin ABG Sodium 146.9 H ABG Potassium 3.2 L ABG Chloride 116.0 H ABG Glucose 113 H Oxyhemoglobin Carboxyhemoglobin Sodium Potassium Chloride Carbon Dioxide BUN Creatinine Glucose POC Glucose 138 H Hemoglobin A1c Lactic Acid Calcium Ionized Calcium Phosphorus AST ALT Alkaline Phosphatase Ammonia Lactate Dehydrogenase Total Creatine Kinase Troponin T C-Reactive Protein Total Protein Albumin Triglycerides LDL Cholesterol Direct HDL Cholesterol Arterial Blood Glucose 113 H Arterial Blood Ionized Calcium 4.5 L Urine WBC (Auto) Salicylates Crossmatch 08/01/20 08/01/20 08/01/20 04:30 04:30 08:40 WBC RBC Hgb Hct MCV MCH MCHC RDW Plt Count Seg Neuts % (Manual) Lymphocytes % (Manual) Seg Neutrophils # Man Lymphocytes # (Manual) Haptoglobin PT INR ABG pH POC ABG pCO2 POC ABG pO2 ABG pO2 ABG O2 Saturation ABG Hemoglobin ABG Oxyhemoglobin ABG Sodium ABG Potassium ABG Chloride ABG Glucose Oxyhemoglobin Carboxyhemoglobin Sodium 148 H Potassium 3.4 L Chloride 114.3 H Carbon Dioxide BUN 43 H Creatinine Glucose 109 H POC Glucose Hemoglobin A1c 8.8 H Lactic Acid Calcium 8.1 L D Ionized Calcium Phosphorus AST ALT Alkaline Phosphatase Ammonia Lactate Dehydrogenase Total Creatine Kinase Troponin T C-Reactive Protein Total Protein Albumin Triglycerides LDL Cholesterol Direct HDL Cholesterol Arterial Blood Glucose Arterial Blood Ionized Calcium Urine WBC (Auto) Salicylates Crossmatch See Detail 08/01/20 08/01/20 08/01/20 08:40 17:03 23:35 WBC RBC Hgb Hct MCV MCH MCHC RDW Plt Count Seg Neuts % (Manual) Lymphocytes % (Manual) Seg Neutrophils # Man Lymphocytes # (Manual) Haptoglobin PT INR ABG pH POC ABG pCO2 POC ABG pO2 ABG pO2 ABG O2 Saturation ABG Hemoglobin ABG Oxyhemoglobin ABG Sodium ABG Potassium ABG Chloride ABG Glucose Oxyhemoglobin Carboxyhemoglobin Sodium Potassium Chloride Carbon Dioxide BUN Creatinine Glucose POC Glucose 129 H 172 H Hemoglobin A1c Lactic Acid Calcium Ionized Calcium Phosphorus 1.70 L AST ALT Alkaline Phosphatase Ammonia Lactate Dehydrogenase Total Creatine Kinase Troponin T C-Reactive Protein Total Protein Albumin Triglycerides LDL Cholesterol Direct HDL Cholesterol Arterial Blood Glucose Arterial Blood Ionized Calcium Urine WBC (Auto) Salicylates Crossmatch 08/02/20 08/02/20 08/02/20 03:50 05:46 10:54 WBC RBC Hgb Hct MCV MCH MCHC RDW Plt Count Seg Neuts % (Manual) Lymphocytes % (Manual) Seg Neutrophils # Man Lymphocytes # (Manual) Haptoglobin PT INR ABG pH 7.333 L POC ABG pCO2 POC ABG pO2 ABG pO2 91.5 H ABG O2 Saturation ABG Hemoglobin 7.9 L ABG Oxyhemoglobin ABG Sodium ABG Potassium ABG Chloride ABG Glucose Oxyhemoglobin Carboxyhemoglobin Sodium Potassium Chloride Carbon Dioxide BUN Creatinine Glucose POC Glucose 161 H 228 H Hemoglobin A1c Lactic Acid Calcium Ionized Calcium Phosphorus AST ALT Alkaline Phosphatase Ammonia Lactate Dehydrogenase Total Creatine Kinase Troponin T C-Reactive Protein Total Protein Albumin Triglycerides LDL Cholesterol Direct HDL Cholesterol Arterial Blood Glucose Arterial Blood Ionized Calcium Urine WBC (Auto) Salicylates Crossmatch 08/02/20 08/02/20 08/02/20 17:20 23:13 Unknown WBC RBC 2.66 L Hgb 8.1 L Hct 23.9 L MCV MCH MCHC RDW 16.8 H Plt Count 110 L Seg Neuts % (Manual) Lymphocytes % (Manual) Seg Neutrophils # Man Lymphocytes # (Manual) Haptoglobin PT INR ABG pH POC ABG pCO2 POC ABG pO2 ABG pO2 ABG O2 Saturation ABG Hemoglobin ABG Oxyhemoglobin ABG Sodium ABG Potassium ABG Chloride ABG Glucose Oxyhemoglobin Carboxyhemoglobin Sodium Potassium Chloride Carbon Dioxide BUN Creatinine Glucose POC Glucose 214 H 132 H Hemoglobin A1c Lactic Acid Calcium Ionized Calcium Phosphorus AST ALT Alkaline Phosphatase Ammonia Lactate Dehydrogenase Total Creatine Kinase Troponin T C-Reactive Protein Total Protein Albumin Triglycerides LDL Cholesterol Direct HDL Cholesterol Arterial Blood Glucose Arterial Blood Ionized Calcium Urine WBC (Auto) Salicylates Crossmatch 08/02/20 08/02/20 08/03/20 Unknown Unknown 02:59 WBC RBC Hgb Hct MCV MCH MCHC RDW Plt Count Seg Neuts % (Manual) Lymphocytes % (Manual) Seg Neutrophils # Man Lymphocytes # (Manual) Haptoglobin PT INR ABG pH POC ABG pCO2 POC ABG pO2 ABG pO2 ABG O2 Saturation ABG Hemoglobin 8.1 L ABG Oxyhemoglobin ABG Sodium ABG Potassium ABG Chloride 113.0 H ABG Glucose 143 H Oxyhemoglobin Carboxyhemoglobin Sodium 150 H Potassium 3.5 L Chloride 115.9 H Carbon Dioxide BUN 42 H Creatinine Glucose 188 H POC Glucose Hemoglobin A1c Lactic Acid Calcium 7.8 L Ionized Calcium Phosphorus 2.30 L D AST ALT Alkaline Phosphatase Ammonia Lactate Dehydrogenase Total Creatine Kinase Troponin T C-Reactive Protein Total Protein Albumin Triglycerides LDL Cholesterol Direct HDL Cholesterol Arterial Blood Glucose 143 H Arterial Blood Ionized Calcium Urine WBC (Auto) Salicylates Crossmatch 08/03/20 08/03/20 08/03/20 04:16 04:16 05:12 WBC RBC 2.62 L Hgb 8.1 L Hct 24.1 L MCV MCH MCHC RDW 17.4 H Plt Count 118 L Seg Neuts % (Manual) Lymphocytes % (Manual) Seg Neutrophils # Man Lymphocytes # (Manual) Haptoglobin PT INR ABG pH POC ABG pCO2 POC ABG pO2 ABG pO2 ABG O2 Saturation ABG Hemoglobin ABG Oxyhemoglobin ABG Sodium ABG Potassium ABG Chloride ABG Glucose Oxyhemoglobin Carboxyhemoglobin Sodium 148 H Potassium Chloride 114.5 H Carbon Dioxide BUN 47 H Creatinine Glucose 158 H POC Glucose 164 H Hemoglobin A1c Lactic Acid Calcium 8.1 L Ionized Calcium Phosphorus 2.30 L AST ALT Alkaline Phosphatase Ammonia Lactate Dehydrogenase Total Creatine Kinase Troponin T C-Reactive Protein Total Protein Albumin Triglycerides LDL Cholesterol Direct HDL Cholesterol Arterial Blood Glucose Arterial Blood Ionized Calcium Urine WBC (Auto) Salicylates Crossmatch 08/03/20 08/03/20 08/03/20 11:26 17:33 23:47 WBC RBC Hgb Hct MCV MCH MCHC RDW Plt Count Seg Neuts % (Manual) Lymphocytes % (Manual) Seg Neutrophils # Man Lymphocytes # (Manual) Haptoglobin PT INR ABG pH POC ABG pCO2 POC ABG pO2 ABG pO2 ABG O2 Saturation ABG Hemoglobin ABG Oxyhemoglobin ABG Sodium ABG Potassium ABG Chloride ABG Glucose Oxyhemoglobin Carboxyhemoglobin Sodium Potassium Chloride Carbon Dioxide BUN Creatinine Glucose POC Glucose 190 H 235 H 194 H Hemoglobin A1c Lactic Acid Calcium Ionized Calcium Phosphorus AST ALT Alkaline Phosphatase Ammonia Lactate Dehydrogenase Total Creatine Kinase Troponin T C-Reactive Protein Total Protein Albumin Triglycerides LDL Cholesterol Direct HDL Cholesterol Arterial Blood Glucose Arterial Blood Ionized Calcium Urine WBC (Auto) Salicylates Crossmatch 08/04/20 08/04/20 08/04/20 03:00 03:00 04:14 WBC RBC Hgb Hct MCV MCH MCHC RDW Plt Count Seg Neuts % (Manual) Lymphocytes % (Manual) Seg Neutrophils # Man Lymphocytes # (Manual) Haptoglobin PT INR ABG pH POC ABG pCO2 POC ABG pO2 79.5 L ABG pO2 ABG O2 Saturation ABG Hemoglobin 9.9 L ABG Oxyhemoglobin ABG Sodium ABG Potassium ABG Chloride 113.0 H ABG Glucose 227 H Oxyhemoglobin Carboxyhemoglobin 0.3 L Sodium Potassium Chloride 111.4 H Carbon Dioxide BUN 51 H Creatinine Glucose 218 H POC Glucose Hemoglobin A1c Lactic Acid Calcium Ionized Calcium Phosphorus AST ALT Alkaline Phosphatase Ammonia Lactate Dehydrogenase Total Creatine Kinase Troponin T C-Reactive Protein Total Protein Albumin Triglycerides 184 H LDL Cholesterol Direct HDL Cholesterol Arterial Blood Glucose 227 H Arterial Blood Ionized Calcium Urine WBC (Auto) Salicylates Crossmatch 08/04/20 08/04/20 08/04/20 05:17 11:52 11:53 WBC RBC Hgb Hct MCV MCH MCHC RDW Plt Count Seg Neuts % (Manual) Lymphocytes % (Manual) Seg Neutrophils # Man Lymphocytes # (Manual) Haptoglobin PT INR ABG pH POC ABG pCO2 POC ABG pO2 ABG pO2 ABG O2 Saturation ABG Hemoglobin ABG Oxyhemoglobin ABG Sodium ABG Potassium ABG Chloride ABG Glucose Oxyhemoglobin Carboxyhemoglobin Sodium Potassium Chloride Carbon Dioxide BUN Creatinine Glucose POC Glucose 224 H 253 H 237 H Hemoglobin A1c Lactic Acid Calcium Ionized Calcium Phosphorus AST ALT Alkaline Phosphatase Ammonia Lactate Dehydrogenase Total Creatine Kinase Troponin T C-Reactive Protein Total Protein Albumin Triglycerides LDL Cholesterol Direct HDL Cholesterol Arterial Blood Glucose Arterial Blood Ionized Calcium Urine WBC (Auto) Salicylates Crossmatch 08/04/20 08/04/20 08/04/20 15:35 16:25 17:45 WBC 21.5 H RBC 2.10 L Hgb 7.3 L Hct 22.0 L MCV MCH 33 H MCHC 37 H RDW 17.2 H Plt Count 133 L Seg Neuts % (Manual) Lymphocytes % (Manual) Seg Neutrophils # Man Lymphocytes # (Manual) Haptoglobin PT INR ABG pH POC ABG pCO2 POC ABG pO2 ABG pO2 ABG O2 Saturation ABG Hemoglobin ABG Oxyhemoglobin ABG Sodium ABG Potassium ABG Chloride ABG Glucose Oxyhemoglobin Carboxyhemoglobin Sodium Potassium Chloride Carbon Dioxide BUN Creatinine Glucose POC Glucose 230 H 218 H Hemoglobin A1c Lactic Acid Calcium Ionized Calcium Phosphorus AST ALT Alkaline Phosphatase Ammonia Lactate Dehydrogenase Total Creatine Kinase Troponin T C-Reactive Protein Total Protein Albumin Triglycerides LDL Cholesterol Direct HDL Cholesterol Arterial Blood Glucose Arterial Blood Ionized Calcium Urine WBC (Auto) Salicylates Crossmatch 08/04/20 08/05/20 08/05/20 23:11 03:28 05:25 WBC RBC Hgb Hct MCV MCH MCHC RDW Plt Count Seg Neuts % (Manual) Lymphocytes % (Manual) Seg Neutrophils # Man Lymphocytes # (Manual) Haptoglobin PT INR ABG pH POC ABG pCO2 POC ABG pO2 82.1 L ABG pO2 ABG O2 Saturation ABG Hemoglobin 8.6 L ABG Oxyhemoglobin 93.7 L ABG Sodium ABG Potassium ABG Chloride 113.0 H ABG Glucose 205 H Oxyhemoglobin Carboxyhemoglobin Sodium Potassium Chloride Carbon Dioxide BUN Creatinine Glucose POC Glucose 198 H 213 H Hemoglobin A1c Lactic Acid Calcium Ionized Calcium Phosphorus AST ALT Alkaline Phosphatase Ammonia Lactate Dehydrogenase Total Creatine Kinase Troponin T C-Reactive Protein Total Protein Albumin Triglycerides LDL Cholesterol Direct HDL Cholesterol Arterial Blood Glucose 205 H Arterial Blood Ionized Calcium Urine WBC (Auto) Salicylates Crossmatch 08/05/20 08/05/20 08/05/20 08:48 08:48 10:55 WBC 14.3 H RBC 2.76 L Hgb 8.1 L Hct 24.8 L MCV MCH MCHC RDW 17.4 H Plt Count 138 L Seg Neuts % (Manual) 97.0 H Lymphocytes % (Manual) 1.0 L Seg Neutrophils # Man 13.9 H Lymphocytes # (Manual) 0.1 L Haptoglobin PT INR ABG pH POC ABG pCO2 POC ABG pO2 158.7 H ABG pO2 ABG O2 Saturation ABG Hemoglobin 7.8 L ABG Oxyhemoglobin ABG Sodium ABG Potassium ABG Chloride 114.0 H ABG Glucose 242 H Oxyhemoglobin Carboxyhemoglobin Sodium 146 H Potassium Chloride 110.1 H Carbon Dioxide BUN 56 H Creatinine Glucose 219 H POC Glucose Hemoglobin A1c Lactic Acid Calcium Ionized Calcium Phosphorus AST ALT Alkaline Phosphatase 192 H Ammonia Lactate Dehydrogenase Total Creatine Kinase Troponin T C-Reactive Protein Total Protein 5.8 L Albumin 2.0 L Triglycerides LDL Cholesterol Direct HDL Cholesterol Arterial Blood Glucose 242 H Arterial Blood Ionized Calcium Urine WBC (Auto) Salicylates Crossmatch 08/05/20 08/05/20 08/05/20 11:12 11:30 17:08 WBC RBC Hgb Hct MCV MCH MCHC RDW Plt Count Seg Neuts % (Manual) Lymphocytes % (Manual) Seg Neutrophils # Man Lymphocytes # (Manual) Haptoglobin PT INR ABG pH POC ABG pCO2 POC ABG pO2 147.5 H ABG pO2 ABG O2 Saturation ABG Hemoglobin 7.5 L ABG Oxyhemoglobin 98.1 H ABG Sodium ABG Potassium ABG Chloride 113.0 H ABG Glucose 248 H Oxyhemoglobin Carboxyhemoglobin Sodium Potassium Chloride Carbon Dioxide BUN Creatinine Glucose POC Glucose 238 H 239 H Hemoglobin A1c Lactic Acid Calcium Ionized Calcium Phosphorus AST ALT Alkaline Phosphatase Ammonia Lactate Dehydrogenase Total Creatine Kinase Troponin T C-Reactive Protein Total Protein Albumin Triglycerides LDL Cholesterol Direct HDL Cholesterol Arterial Blood Glucose 248 H Arterial Blood Ionized Calcium Urine WBC (Auto) Salicylates Crossmatch 08/05/20 08/05/20 08/06/20 23:17 Unknown 05:12 WBC RBC Hgb Hct MCV MCH MCHC RDW Plt Count Seg Neuts % (Manual) Lymphocytes % (Manual) Seg Neutrophils # Man Lymphocytes # (Manual) Haptoglobin PT INR ABG pH POC ABG pCO2 POC ABG pO2 ABG pO2 ABG O2 Saturation ABG Hemoglobin ABG Oxyhemoglobin ABG Sodium ABG Potassium ABG Chloride ABG Glucose Oxyhemoglobin Carboxyhemoglobin Sodium Potassium Chloride 109.2 H Carbon Dioxide BUN 51 H Creatinine Glucose 229 H POC Glucose 200 H 145 H Hemoglobin A1c Lactic Acid Calcium Ionized Calcium Phosphorus AST ALT Alkaline Phosphatase Ammonia Lactate Dehydrogenase Total Creatine Kinase Troponin T C-Reactive Protein Total Protein Albumin Triglycerides LDL Cholesterol Direct HDL Cholesterol Arterial Blood Glucose Arterial Blood Ionized Calcium Urine WBC (Auto) Salicylates Crossmatch 08/06/20 08/06/20 08/06/20 05:21 10:00 11:28 WBC RBC Hgb Hct MCV MCH MCHC RDW Plt Count Seg Neuts % (Manual) Lymphocytes % (Manual) Seg Neutrophils # Man Lymphocytes # (Manual) Haptoglobin PT INR ABG pH 7.301 L 7.308 L POC ABG pCO2 49.5 H 49.1 H POC ABG pO2 178.4 H ABG pO2 ABG O2 Saturation ABG Hemoglobin 7.5 L 7.1 L ABG Oxyhemoglobin 98.8 H ABG Sodium ABG Potassium ABG Chloride 112.0 H 112.0 H ABG Glucose 149 H 162 H Oxyhemoglobin Carboxyhemoglobin Sodium Potassium Chloride Carbon Dioxide BUN Creatinine Glucose POC Glucose 158 H Hemoglobin A1c Lactic Acid Calcium Ionized Calcium Phosphorus AST ALT Alkaline Phosphatase Ammonia Lactate Dehydrogenase Total Creatine Kinase Troponin T C-Reactive Protein Total Protein Albumin Triglycerides LDL Cholesterol Direct HDL Cholesterol Arterial Blood Glucose 149 H 162 H Arterial Blood Ionized Calcium Urine WBC (Auto) Salicylates Crossmatch 08/06/20 08/06/20 08/06/20 17:42 23:56 Unknown WBC 13.0 H RBC 2.38 L Hgb 7.1 L Hct 21.5 L MCV MCH MCHC RDW 17.6 H Plt Count Seg Neuts % (Manual) Lymphocytes % (Manual) Seg Neutrophils # Man Lymphocytes # (Manual) Haptoglobin PT INR ABG pH POC ABG pCO2 POC ABG pO2 ABG pO2 ABG O2 Saturation ABG Hemoglobin ABG Oxyhemoglobin ABG Sodium ABG Potassium ABG Chloride ABG Glucose Oxyhemoglobin Carboxyhemoglobin Sodium Potassium Chloride Carbon Dioxide BUN Creatinine Glucose POC Glucose 179 H 259 H Hemoglobin A1c Lactic Acid Calcium Ionized Calcium Phosphorus AST ALT Alkaline Phosphatase Ammonia Lactate Dehydrogenase Total Creatine Kinase Troponin T C-Reactive Protein Total Protein Albumin Triglycerides LDL Cholesterol Direct HDL Cholesterol Arterial Blood Glucose Arterial Blood Ionized Calcium Urine WBC (Auto) Salicylates Crossmatch 08/07/20 08/07/20 08/07/20 04:00 04:05 04:05 WBC RBC 2.32 L Hgb 7.1 L Hct 20.9 L MCV MCH MCHC RDW 17.9 H Plt Count Seg Neuts % (Manual) Lymphocytes % (Manual) Seg Neutrophils # Man Lymphocytes # (Manual) Haptoglobin PT INR ABG pH POC ABG pCO2 POC ABG pO2 150.6 H ABG pO2 ABG O2 Saturation ABG Hemoglobin 8.0 L ABG Oxyhemoglobin 98.4 H ABG Sodium 146.7 H ABG Potassium ABG Chloride 114.0 H ABG Glucose 201 H Oxyhemoglobin Carboxyhemoglobin Sodium 151 H Potassium Chloride 114.3 H Carbon Dioxide BUN 63 H Creatinine Glucose 198 H POC Glucose Hemoglobin A1c Lactic Acid Calcium Ionized Calcium Phosphorus AST 54 H ALT Alkaline Phosphatase 213 H Ammonia Lactate Dehydrogenase Total Creatine Kinase Troponin T C-Reactive Protein Total Protein 6.1 L Albumin 2.0 L Triglycerides LDL Cholesterol Direct HDL Cholesterol Arterial Blood Glucose 201 H Arterial Blood Ionized Calcium Urine WBC (Auto) Salicylates Crossmatch 08/07/20 08/07/20 08/07/20 05:34 11:43 14:30 WBC RBC Hgb Hct MCV MCH MCHC RDW Plt Count Seg Neuts % (Manual) Lymphocytes % (Manual) Seg Neutrophils # Man Lymphocytes # (Manual) Haptoglobin PT INR ABG pH POC ABG pCO2 POC ABG pO2 ABG pO2 62.9 L ABG O2 Saturation 86.7 L ABG Hemoglobin 7.1 L ABG Oxyhemoglobin ABG Sodium ABG Potassium ABG Chloride ABG Glucose Oxyhemoglobin 85.0 L Carboxyhemoglobin Sodium Potassium Chloride Carbon Dioxide BUN Creatinine Glucose POC Glucose 160 H 201 H Hemoglobin A1c Lactic Acid Calcium Ionized Calcium Phosphorus AST ALT Alkaline Phosphatase Ammonia Lactate Dehydrogenase Total Creatine Kinase Troponin T C-Reactive Protein Total Protein Albumin Triglycerides LDL Cholesterol Direct HDL Cholesterol Arterial Blood Glucose Arterial Blood Ionized Calcium Urine WBC (Auto) Salicylates Crossmatch 08/07/20 08/07/20 08/08/20 17:57 23:12 05:38 WBC RBC Hgb Hct MCV MCH MCHC RDW Plt Count Seg Neuts % (Manual) Lymphocytes % (Manual) Seg Neutrophils # Man Lymphocytes # (Manual) Haptoglobin PT INR ABG pH POC ABG pCO2 POC ABG pO2 ABG pO2 ABG O2 Saturation ABG Hemoglobin ABG Oxyhemoglobin ABG Sodium ABG Potassium ABG Chloride ABG Glucose Oxyhemoglobin Carboxyhemoglobin Sodium Potassium Chloride Carbon Dioxide BUN Creatinine Glucose POC Glucose 242 H 246 H 135 H Hemoglobin A1c Lactic Acid Calcium Ionized Calcium Phosphorus AST ALT Alkaline Phosphatase Ammonia Lactate Dehydrogenase Total Creatine Kinase Troponin T C-Reactive Protein Total Protein Albumin Triglycerides LDL Cholesterol Direct HDL Cholesterol Arterial Blood Glucose Arterial Blood Ionized Calcium Urine WBC (Auto) Salicylates Crossmatch 08/08/20 08/08/20 08/08/20 09:49 11:40 17:28 WBC RBC Hgb Hct MCV MCH MCHC RDW Plt Count Seg Neuts % (Manual) Lymphocytes % (Manual) Seg Neutrophils # Man Lymphocytes # (Manual) Haptoglobin PT INR ABG pH POC ABG pCO2 POC ABG pO2 ABG pO2 ABG O2 Saturation ABG Hemoglobin 6.9 L ABG Oxyhemoglobin ABG Sodium 146.1 H ABG Potassium ABG Chloride 114.0 H ABG Glucose 192 H Oxyhemoglobin Carboxyhemoglobin Sodium Potassium Chloride Carbon Dioxide BUN Creatinine Glucose POC Glucose 187 H 175 H Hemoglobin A1c Lactic Acid Calcium Ionized Calcium Phosphorus AST ALT Alkaline Phosphatase Ammonia Lactate Dehydrogenase Total Creatine Kinase Troponin T C-Reactive Protein Total Protein Albumin Triglycerides LDL Cholesterol Direct HDL Cholesterol Arterial Blood Glucose 192 H Arterial Blood Ionized Calcium Urine WBC (Auto) Salicylates Crossmatch 08/09/20 08/09/20 08/09/20 03:41 06:10 11:58 WBC RBC Hgb Hct MCV MCH MCHC RDW Plt Count Seg Neuts % (Manual) Lymphocytes % (Manual) Seg Neutrophils # Man Lymphocytes # (Manual) Haptoglobin PT INR ABG pH POC ABG pCO2 POC ABG pO2 ABG pO2 ABG O2 Saturation ABG Hemoglobin 6.9 L ABG Oxyhemoglobin ABG Sodium 145.8 H ABG Potassium 4.6 H ABG Chloride 113.0 H ABG Glucose 113 H Oxyhemoglobin Carboxyhemoglobin Sodium Potassium Chloride Carbon Dioxide BUN Creatinine Glucose POC Glucose 118 H 124 H Hemoglobin A1c Lactic Acid Calcium Ionized Calcium Phosphorus AST ALT Alkaline Phosphatase Ammonia Lactate Dehydrogenase Total Creatine Kinase Troponin T C-Reactive Protein Total Protein Albumin Triglycerides LDL Cholesterol Direct HDL Cholesterol Arterial Blood Glucose 113 H Arterial Blood Ionized Calcium Urine WBC (Auto) Salicylates Crossmatch 08/09/20 08/09/20 08/09/20 14:05 14:05 17:42 WBC RBC 3.58 L Hgb 10.5 L D Hct 31.6 L D MCV MCH MCHC RDW 17.8 H Plt Count 125 L Seg Neuts % (Manual) Lymphocytes % (Manual) Seg Neutrophils # Man Lymphocytes # (Manual) Haptoglobin PT INR ABG pH POC ABG pCO2 POC ABG pO2 ABG pO2 ABG O2 Saturation ABG Hemoglobin ABG Oxyhemoglobin ABG Sodium ABG Potassium ABG Chloride ABG Glucose Oxyhemoglobin Carboxyhemoglobin Sodium Potassium Chloride 111.2 H Carbon Dioxide BUN 74 H Creatinine Glucose 137 H POC Glucose 139 H Hemoglobin A1c Lactic Acid Calcium Ionized Calcium Phosphorus AST ALT Alkaline Phosphatase Ammonia Lactate Dehydrogenase Total Creatine Kinase Troponin T C-Reactive Protein Total Protein Albumin Triglycerides LDL Cholesterol Direct HDL Cholesterol Arterial Blood Glucose Arterial Blood Ionized Calcium Urine WBC (Auto) Salicylates Crossmatch 08/09/20 08/09/20 08/09/20 21:07 21:25 23:26 WBC RBC Hgb Hct MCV MCH MCHC RDW Plt Count Seg Neuts % (Manual) Lymphocytes % (Manual) Seg Neutrophils # Man Lymphocytes # (Manual) Haptoglobin PT 15.5 H INR 1.17 H ABG pH POC ABG pCO2 POC ABG pO2 ABG pO2 ABG O2 Saturation ABG Hemoglobin ABG Oxyhemoglobin ABG Sodium ABG Potassium ABG Chloride ABG Glucose Oxyhemoglobin Carboxyhemoglobin Sodium Potassium Chloride Carbon Dioxide BUN Creatinine Glucose POC Glucose 156 H 167 H Hemoglobin A1c Lactic Acid Calcium Ionized Calcium Phosphorus AST ALT Alkaline Phosphatase Ammonia Lactate Dehydrogenase Total Creatine Kinase Troponin T C-Reactive Protein Total Protein Albumin Triglycerides LDL Cholesterol Direct HDL Cholesterol Arterial Blood Glucose Arterial Blood Ionized Calcium Urine WBC (Auto) Salicylates Crossmatch 08/10/20 08/10/20 08/10/20 03:04 12:19 14:53 WBC RBC 2.06 L Hgb 6.1 L D Hct 18.6 L* D MCV MCH MCHC RDW 18.3 H Plt Count 137 L Seg Neuts % (Manual) Lymphocytes % (Manual) Seg Neutrophils # Man Lymphocytes # (Manual) Haptoglobin PT INR ABG pH POC ABG pCO2 POC ABG pO2 ABG pO2 ABG O2 Saturation ABG Hemoglobin 6.7 L ABG Oxyhemoglobin ABG Sodium ABG Potassium ABG Chloride 111.0 H ABG Glucose 116 H Oxyhemoglobin Carboxyhemoglobin Sodium Potassium Chloride Carbon Dioxide BUN Creatinine Glucose POC Glucose 57 L Hemoglobin A1c Lactic Acid Calcium Ionized Calcium Phosphorus AST ALT Alkaline Phosphatase Ammonia Lactate Dehydrogenase Total Creatine Kinase Troponin T C-Reactive Protein Total Protein Albumin Triglycerides LDL Cholesterol Direct HDL Cholesterol Arterial Blood Glucose 116 H Arterial Blood Ionized Calcium Urine WBC (Auto) Salicylates Crossmatch 08/10/20 08/10/20 08/10/20 14:53 18:08 23:11 WBC RBC Hgb Hct MCV MCH MCHC RDW Plt Count Seg Neuts % (Manual) Lymphocytes % (Manual) Seg Neutrophils # Man Lymphocytes # (Manual) Haptoglobin PT INR ABG pH POC ABG pCO2 POC ABG pO2 ABG pO2 ABG O2 Saturation ABG Hemoglobin ABG Oxyhemoglobin ABG Sodium ABG Potassium ABG Chloride ABG Glucose Oxyhemoglobin Carboxyhemoglobin Sodium 146 H Potassium Chloride 111.1 H Carbon Dioxide BUN 72 H Creatinine 1.4 H Glucose 158 H POC Glucose 68 L Hemoglobin A1c Lactic Acid Calcium 8.2 L Ionized Calcium Phosphorus AST ALT Alkaline Phosphatase Ammonia Lactate Dehydrogenase Total Creatine Kinase Troponin T C-Reactive Protein Total Protein Albumin Triglycerides LDL Cholesterol Direct HDL Cholesterol Arterial Blood Glucose Arterial Blood Ionized Calcium Urine WBC (Auto) Salicylates Crossmatch See Detail 08/11/20 08/11/20 08/11/20 04:12 05:34 05:36 WBC RBC Hgb Hct MCV MCH MCHC RDW Plt Count Seg Neuts % (Manual) Lymphocytes % (Manual) Seg Neutrophils # Man Lymphocytes # (Manual) Haptoglobin PT INR ABG pH POC ABG pCO2 POC ABG pO2 397.7 H ABG pO2 ABG O2 Saturation ABG Hemoglobin 7.6 L ABG Oxyhemoglobin 98.8 H ABG Sodium ABG Potassium ABG Chloride 113.0 H ABG Glucose 60 L Oxyhemoglobin Carboxyhemoglobin Sodium Potassium Chloride Carbon Dioxide BUN Creatinine Glucose POC Glucose 55 L 51 L Hemoglobin A1c Lactic Acid Calcium Ionized Calcium Phosphorus AST ALT Alkaline Phosphatase Ammonia Lactate Dehydrogenase Total Creatine Kinase Troponin T C-Reactive Protein Total Protein Albumin Triglycerides LDL Cholesterol Direct HDL Cholesterol Arterial Blood Glucose 60 L Arterial Blood Ionized Calcium 4.4 L Urine WBC (Auto) Salicylates Crossmatch 08/11/20 08/11/20 08/11/20 08:40 08:40 10:23 WBC RBC 2.14 L Hgb 6.2 L 6.3 L Hct 18.8 L* 19.0 L* MCV MCH MCHC RDW 17.6 H Plt Count Seg Neuts % (Manual) Lymphocytes % (Manual) Seg Neutrophils # Man Lymphocytes # (Manual) Haptoglobin PT INR ABG pH POC ABG pCO2 POC ABG pO2 ABG pO2 ABG O2 Saturation ABG Hemoglobin ABG Oxyhemoglobin ABG Sodium ABG Potassium ABG Chloride ABG Glucose Oxyhemoglobin Carboxyhemoglobin Sodium 147 H Potassium Chloride 112.3 H Carbon Dioxide BUN 62 H Creatinine 1.5 H Glucose 73 L POC Glucose Hemoglobin A1c Lactic Acid Calcium 7.9 L Ionized Calcium Phosphorus AST ALT Alkaline Phosphatase Ammonia Lactate Dehydrogenase Total Creatine Kinase Troponin T C-Reactive Protein Total Protein Albumin Triglycerides LDL Cholesterol Direct HDL Cholesterol Arterial Blood Glucose Arterial Blood Ionized Calcium Urine WBC (Auto) Salicylates Crossmatch 08/11/20 08/11/20 08/11/20 11:56 17:43 18:40 WBC RBC Hgb Hct MCV MCH MCHC RDW Plt Count Seg Neuts % (Manual) Lymphocytes % (Manual) Seg Neutrophils # Man Lymphocytes # (Manual) Haptoglobin PT 15.7 H INR 1.19 H ABG pH POC ABG pCO2 POC ABG pO2 ABG pO2 ABG O2 Saturation ABG Hemoglobin ABG Oxyhemoglobin ABG Sodium ABG Potassium ABG Chloride ABG Glucose Oxyhemoglobin Carboxyhemoglobin Sodium Potassium Chloride Carbon Dioxide BUN Creatinine Glucose POC Glucose 53 L 113 H Hemoglobin A1c Lactic Acid Calcium Ionized Calcium Phosphorus AST ALT Alkaline Phosphatase Ammonia Lactate Dehydrogenase Total Creatine Kinase Troponin T C-Reactive Protein Total Protein Albumin Triglycerides LDL Cholesterol Direct HDL Cholesterol Arterial Blood Glucose Arterial Blood Ionized Calcium Urine WBC (Auto) Salicylates Crossmatch 08/11/20 08/11/20 08/11/20 18:40 20:10 22:13 WBC RBC Hgb 6.2 L 6.1 L Hct 18.4 L* 18.3 L* MCV MCH MCHC RDW Plt Count Seg Neuts % (Manual) Lymphocytes % (Manual) Seg Neutrophils # Man Lymphocytes # (Manual) Haptoglobin PT INR ABG pH POC ABG pCO2 POC ABG pO2 163.6 H ABG pO2 ABG O2 Saturation ABG Hemoglobin 7.7 L ABG Oxyhemoglobin 98.3 H ABG Sodium ABG Potassium ABG Chloride 112.0 H ABG Glucose 119 H Oxyhemoglobin Carboxyhemoglobin Sodium Potassium Chloride Carbon Dioxide BUN Creatinine Glucose POC Glucose Hemoglobin A1c Lactic Acid Calcium Ionized Calcium Phosphorus AST ALT Alkaline Phosphatase Ammonia Lactate Dehydrogenase Total Creatine Kinase Troponin T C-Reactive Protein Total Protein Albumin Triglycerides LDL Cholesterol Direct HDL Cholesterol Arterial Blood Glucose 119 H Arterial Blood Ionized Calcium 4.4 L Urine WBC (Auto) Salicylates Crossmatch 08/11/20 08/12/20 08/12/20 23:32 04:43 04:43 WBC RBC Hgb Hct MCV MCH MCHC RDW Plt Count Seg Neuts % (Manual) Lymphocytes % (Manual) Seg Neutrophils # Man Lymphocytes # (Manual) Haptoglobin PT INR ABG pH POC ABG pCO2 POC ABG pO2 ABG pO2 ABG O2 Saturation ABG Hemoglobin ABG Oxyhemoglobin ABG Sodium ABG Potassium ABG Chloride ABG Glucose Oxyhemoglobin Carboxyhemoglobin Sodium Potassium Chloride Carbon Dioxide BUN Creatinine Glucose POC Glucose 106 H Hemoglobin A1c Lactic Acid Calcium Ionized Calcium Phosphorus AST 57 H ALT Alkaline Phosphatase 288 H Ammonia Lactate Dehydrogenase 239 H Total Creatine Kinase Troponin T C-Reactive Protein Total Protein 6.0 L Albumin 1.7 L Triglycerides LDL Cholesterol Direct HDL Cholesterol Arterial Blood Glucose Arterial Blood Ionized Calcium Urine WBC (Auto) Salicylates Crossmatch 08/12/20 08/12/20 08/12/20 04:43 04:53 05:07 WBC RBC 3.03 L Hgb 8.5 L Hct 25.6 L D MCV MCH MCHC RDW 18.4 H Plt Count Seg Neuts % (Manual) 88.0 H Lymphocytes % (Manual) 6.0 L Seg Neutrophils # Man Lymphocytes # (Manual) 0.4 L Haptoglobin 420 H PT INR ABG pH POC ABG pCO2 POC ABG pO2 ABG pO2 ABG O2 Saturation ABG Hemoglobin ABG Oxyhemoglobin ABG Sodium ABG Potassium ABG Chloride ABG Glucose Oxyhemoglobin Carboxyhemoglobin Sodium Potassium Chloride Carbon Dioxide BUN Creatinine Glucose POC Glucose 139 H Hemoglobin A1c Lactic Acid Calcium Ionized Calcium Phosphorus AST ALT Alkaline Phosphatase Ammonia Lactate Dehydrogenase Total Creatine Kinase Troponin T C-Reactive Protein Total Protein Albumin Triglycerides LDL Cholesterol Direct HDL Cholesterol Arterial Blood Glucose Arterial Blood Ionized Calcium Urine WBC (Auto) Salicylates Crossmatch 08/12/20 08/12/20 08/12/20 07:55 07:55 11:17 WBC RBC 2.90 L Hgb 8.1 L Hct 24.4 L MCV MCH MCHC RDW 18.9 H Plt Count Seg Neuts % (Manual) Lymphocytes % (Manual) Seg Neutrophils # Man Lymphocytes # (Manual) Haptoglobin PT INR ABG pH POC ABG pCO2 POC ABG pO2 ABG pO2 ABG O2 Saturation ABG Hemoglobin ABG Oxyhemoglobin ABG Sodium ABG Potassium ABG Chloride ABG Glucose Oxyhemoglobin Carboxyhemoglobin Sodium Potassium 3.3 L Chloride 109.8 H Carbon Dioxide BUN 52 H Creatinine Glucose 153 H POC Glucose 150 H Hemoglobin A1c Lactic Acid Calcium 8.1 L Ionized Calcium Phosphorus AST ALT Alkaline Phosphatase Ammonia Lactate Dehydrogenase Total Creatine Kinase Troponin T C-Reactive Protein Total Protein Albumin Triglycerides LDL Cholesterol Direct HDL Cholesterol Arterial Blood Glucose Arterial Blood Ionized Calcium Urine WBC (Auto) Salicylates Crossmatch 08/12/20 08/12/20 08/12/20 13:05 17:29 18:28 WBC RBC Hgb Hct MCV MCH MCHC RDW Plt Count Seg Neuts % (Manual) Lymphocytes % (Manual) Seg Neutrophils # Man Lymphocytes # (Manual) Haptoglobin PT INR ABG pH POC ABG pCO2 POC ABG pO2 ABG pO2 ABG O2 Saturation ABG Hemoglobin ABG Oxyhemoglobin ABG Sodium ABG Potassium ABG Chloride ABG Glucose Oxyhemoglobin Carboxyhemoglobin Sodium Potassium Chloride Carbon Dioxide BUN Creatinine Glucose POC Glucose 143 H 158 H 158 H Hemoglobin A1c Lactic Acid Calcium Ionized Calcium Phosphorus AST ALT Alkaline Phosphatase Ammonia Lactate Dehydrogenase Total Creatine Kinase Troponin T C-Reactive Protein Total Protein Albumin Triglycerides LDL Cholesterol Direct HDL Cholesterol Arterial Blood Glucose Arterial Blood Ionized Calcium Urine WBC (Auto) Salicylates Crossmatch 08/12/20 08/13/20 08/13/20 23:22 05:32 09:58 WBC RBC 2.79 L Hgb 7.9 L Hct 23.5 L MCV MCH MCHC RDW 18.9 H Plt Count Seg Neuts % (Manual) Lymphocytes % (Manual) Seg Neutrophils # Man Lymphocytes # (Manual) Haptoglobin PT INR ABG pH POC ABG pCO2 POC ABG pO2 ABG pO2 ABG O2 Saturation ABG Hemoglobin ABG Oxyhemoglobin ABG Sodium ABG Potassium ABG Chloride ABG Glucose Oxyhemoglobin Carboxyhemoglobin Sodium Potassium Chloride Carbon Dioxide BUN Creatinine Glucose POC Glucose 191 H 131 H Hemoglobin A1c Lactic Acid Calcium Ionized Calcium Phosphorus AST ALT Alkaline Phosphatase Ammonia Lactate Dehydrogenase Total Creatine Kinase Troponin T C-Reactive Protein Total Protein Albumin Triglycerides LDL Cholesterol Direct HDL Cholesterol Arterial Blood Glucose Arterial Blood Ionized Calcium Urine WBC (Auto) Salicylates Crossmatch 08/13/20 08/13/20 08/13/20 09:58 12:07 12:10 WBC RBC Hgb Hct MCV MCH MCHC RDW Plt Count Seg Neuts % (Manual) Lymphocytes % (Manual) Seg Neutrophils # Man Lymphocytes # (Manual) Haptoglobin PT INR ABG pH POC ABG pCO2 POC ABG pO2 ABG pO2 ABG O2 Saturation ABG Hemoglobin ABG Oxyhemoglobin ABG Sodium ABG Potassium ABG Chloride ABG Glucose Oxyhemoglobin Carboxyhemoglobin Sodium Potassium 3.5 L Chloride 109.1 H Carbon Dioxide BUN 51 H Creatinine Glucose 168 H POC Glucose 142 H 159 H Hemoglobin A1c Lactic Acid Calcium 8.0 L Ionized Calcium Phosphorus AST ALT Alkaline Phosphatase Ammonia Lactate Dehydrogenase Total Creatine Kinase Troponin T C-Reactive Protein Total Protein Albumin Triglycerides LDL Cholesterol Direct HDL Cholesterol Arterial Blood Glucose Arterial Blood Ionized Calcium Urine WBC (Auto) Salicylates Crossmatch 08/13/20 08/13/20 08/14/20 17:17 23:17 05:10 WBC RBC Hgb Hct MCV MCH MCHC RDW Plt Count Seg Neuts % (Manual) Lymphocytes % (Manual) Seg Neutrophils # Man Lymphocytes # (Manual) Haptoglobin PT INR ABG pH POC ABG pCO2 POC ABG pO2 ABG pO2 ABG O2 Saturation ABG Hemoglobin ABG Oxyhemoglobin ABG Sodium ABG Potassium ABG Chloride ABG Glucose Oxyhemoglobin Carboxyhemoglobin Sodium Potassium Chloride Carbon Dioxide BUN Creatinine Glucose POC Glucose 137 H 157 H 153 H Hemoglobin A1c Lactic Acid Calcium Ionized Calcium Phosphorus AST ALT Alkaline Phosphatase Ammonia Lactate Dehydrogenase Total Creatine Kinase Troponin T C-Reactive Protein Total Protein Albumin Triglycerides LDL Cholesterol Direct HDL Cholesterol Arterial Blood Glucose Arterial Blood Ionized Calcium Urine WBC (Auto) Salicylates Crossmatch 08/14/20 08/14/20 08/14/20 11:35 12:05 13:01 WBC RBC 2.73 L Hgb 7.7 L Hct 22.6 L MCV 83 L MCH MCHC RDW 18.4 H Plt Count Seg Neuts % (Manual) Lymphocytes % (Manual) Seg Neutrophils # Man Lymphocytes # (Manual) Haptoglobin PT INR ABG pH POC ABG pCO2 POC ABG pO2 ABG pO2 75.1 L ABG O2 Saturation ABG Hemoglobin 7.7 L ABG Oxyhemoglobin ABG Sodium ABG Potassium ABG Chloride ABG Glucose Oxyhemoglobin 94.8 L Carboxyhemoglobin Sodium Potassium Chloride Carbon Dioxide BUN Creatinine Glucose POC Glucose 175 H Hemoglobin A1c Lactic Acid Calcium Ionized Calcium Phosphorus AST ALT Alkaline Phosphatase Ammonia Lactate Dehydrogenase Total Creatine Kinase Troponin T C-Reactive Protein Total Protein Albumin Triglycerides LDL Cholesterol Direct HDL Cholesterol Arterial Blood Glucose Arterial Blood Ionized Calcium Urine WBC (Auto) Salicylates Crossmatch 08/14/20 08/14/20 08/14/20 13:01 17:55 23:25 WBC RBC Hgb Hct MCV MCH MCHC RDW Plt Count Seg Neuts % (Manual) Lymphocytes % (Manual) Seg Neutrophils # Man Lymphocytes # (Manual) Haptoglobin PT INR ABG pH POC ABG pCO2 POC ABG pO2 ABG pO2 ABG O2 Saturation ABG Hemoglobin ABG Oxyhemoglobin ABG Sodium ABG Potassium ABG Chloride ABG Glucose Oxyhemoglobin Carboxyhemoglobin Sodium Potassium Chloride 107.3 H Carbon Dioxide BUN 49 H Creatinine Glucose 191 H POC Glucose 178 H 150 H Hemoglobin A1c Lactic Acid Calcium 7.9 L Ionized Calcium Phosphorus AST ALT Alkaline Phosphatase Ammonia Lactate Dehydrogenase Total Creatine Kinase Troponin T C-Reactive Protein Total Protein Albumin Triglycerides LDL Cholesterol Direct HDL Cholesterol Arterial Blood Glucose Arterial Blood Ionized Calcium Urine WBC (Auto) Salicylates Crossmatch 08/15/20 08/15/20 08/15/20 04:04 10:28 10:38 WBC RBC 2.94 L Hgb 8.3 L Hct 24.6 L MCV MCH MCHC RDW 18.7 H Plt Count 112 L Seg Neuts % (Manual) Lymphocytes % (Manual) Seg Neutrophils # Man Lymphocytes # (Manual) Haptoglobin PT INR ABG pH POC ABG pCO2 POC ABG pO2 ABG pO2 ABG O2 Saturation ABG Hemoglobin ABG Oxyhemoglobin ABG Sodium ABG Potassium ABG Chloride ABG Glucose Oxyhemoglobin Carboxyhemoglobin Sodium Potassium Chloride 107.4 H Carbon Dioxide BUN 47 H Creatinine Glucose 51 L POC Glucose 44 L Hemoglobin A1c Lactic Acid Calcium 8.3 L Ionized Calcium Phosphorus AST ALT Alkaline Phosphatase Ammonia Lactate Dehydrogenase Total Creatine Kinase Troponin T C-Reactive Protein Total Protein Albumin Triglycerides LDL Cholesterol Direct HDL Cholesterol Arterial Blood Glucose Arterial Blood Ionized Calcium Urine WBC (Auto) Salicylates Crossmatch 08/15/20 08/15/20 08/15/20 17:31 23:15 Unknown WBC RBC Hgb Hct MCV MCH MCHC RDW Plt Count Seg Neuts % (Manual) Lymphocytes % (Manual) Seg Neutrophils # Man Lymphocytes # (Manual) Haptoglobin PT INR ABG pH POC ABG pCO2 POC ABG pO2 ABG pO2 77.7 L ABG O2 Saturation ABG Hemoglobin 9.2 L ABG Oxyhemoglobin ABG Sodium ABG Potassium ABG Chloride ABG Glucose Oxyhemoglobin 94.9 L Carboxyhemoglobin Sodium Potassium Chloride Carbon Dioxide BUN Creatinine Glucose POC Glucose 64 L 114 H Hemoglobin A1c Lactic Acid Calcium Ionized Calcium Phosphorus AST ALT Alkaline Phosphatase Ammonia Lactate Dehydrogenase Total Creatine Kinase Troponin T C-Reactive Protein Total Protein Albumin Triglycerides LDL Cholesterol Direct HDL Cholesterol Arterial Blood Glucose Arterial Blood Ionized Calcium Urine WBC (Auto) Salicylates Crossmatch 08/16/20 08/16/20 08/16/20 05:09 08:02 08:02 WBC 4.1 L RBC 2.70 L Hgb 7.6 L Hct 22.9 L MCV MCH MCHC RDW 18.5 H Plt Count Seg Neuts % (Manual) Lymphocytes % (Manual) Seg Neutrophils # Man Lymphocytes # (Manual) Haptoglobin PT INR ABG pH POC ABG pCO2 POC ABG pO2 ABG pO2 ABG O2 Saturation ABG Hemoglobin ABG Oxyhemoglobin ABG Sodium ABG Potassium ABG Chloride ABG Glucose Oxyhemoglobin Carboxyhemoglobin Sodium Potassium Chloride 110.1 H Carbon Dioxide BUN 45 H Creatinine Glucose 187 H POC Glucose 204 H Hemoglobin A1c Lactic Acid Calcium 7.7 L Ionized Calcium Phosphorus AST ALT Alkaline Phosphatase Ammonia Lactate Dehydrogenase Total Creatine Kinase Troponin T C-Reactive Protein Total Protein Albumin Triglycerides LDL Cholesterol Direct HDL Cholesterol Arterial Blood Glucose Arterial Blood Ionized Calcium Urine WBC (Auto) Salicylates Crossmatch 08/16/20 12:28 WBC RBC Hgb Hct MCV MCH MCHC RDW Plt Count Seg Neuts % (Manual) Lymphocytes % (Manual) Seg Neutrophils # Man Lymphocytes # (Manual) Haptoglobin PT INR ABG pH POC ABG pCO2 POC ABG pO2 ABG pO2 ABG O2 Saturation ABG Hemoglobin ABG Oxyhemoglobin ABG Sodium ABG Potassium ABG Chloride ABG Glucose Oxyhemoglobin Carboxyhemoglobin Sodium Potassium Chloride Carbon Dioxide BUN Creatinine Glucose POC Glucose 126 H Hemoglobin A1c Lactic Acid Calcium Ionized Calcium Phosphorus AST ALT Alkaline Phosphatase Ammonia Lactate Dehydrogenase Total Creatine Kinase Troponin T C-Reactive Protein Total Protein Albumin Triglycerides LDL Cholesterol Direct HDL Cholesterol Arterial Blood Glucose Arterial Blood Ionized Calcium Urine WBC (Auto) Salicylates Crossmatch Allied health notes reviewed: nursing
[2020-08-16] MEDS ORDERED: D5W/0.9% NACL 1,000 ML IV SCH (14:00)
--- NOTE | 2020-08-16 14:06 | Progress Note ---
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 Amlodipine Besylate 10 mg 08/15/20 10:00 08/16/20 09:15 Amlodipine 10 Mg Tab PO 10 mg QDAY [place] Administration Lipase/Protease/Amylase 1 each 07/29/20 09:55 Lipase 10,500/Protease 25,000/Amylase 43,750 (Units) Dr Velasquez FEEDTUBE PRN PRN For Clogged Feeding Tube Ascorbic Acid 500 mg 08/01/20 22:00 08/16/20 09:15 Ascorbic Acid 500 Mg Tab PO 500 mg BID [place] Administration Dextrose 50 ml 07/29/20 15:46 08/15/20 10:45 Dextrose 50% In Water (25gm) 50 Ml Syringe IV 50 ml Q30MIN PRN Administration Hypoglycemia Protocol Enoxaparin Sodium 40 mg 08/17/20 10:00 Enoxaparin 40 Mg/0.4 Ml Inj SUB-Q QDAY@1000 [place] Famotidine 20 mg 07/30/20 10:00 08/16/20 09:15 Famotidine 20 Mg Tab PO 20 mg BID [place] Administration Glycopyrrolate 1 mg 08/16/20 10:00 08/16/20 10:19 Glycopyrrolate 1 Mg Tab PO 1 mg BID [place] Administration Hydralazine HCl 10 mg 08/07/20 10:49 Hydralazine 20 Mg/1 Ml Inj IV Q4HR PRN Give if SBP>180 DBP>100 Hydromorphone HCl 1 mg 08/07/20 12:28 08/12/20 18:19 Hydromorphone 1 Mg/1 Ml Inj IV 1 mg Q4H PRN Administration Pain , Severe (7-10) Hydrophilic Ointment 1 applic 07/28/20 09:30 Lip Therapy Vaseline TP Q2H PRN Dry Lips Dextrose/Sodium Chloride 1,000 mls @ 42 mls/hr 08/16/20 14:00 D5ns IV DIRECT [facility] Insulin Human Lispro 0 unit 08/04/20 12:00 08/16/20 12:02 Insulin Lispro 100 Unit/Ml SUB-Q Not Given Q6HR [facility] Protocol Metoprolol Tartrate 25 mg 08/14/20 22:00 08/16/20 09:16 Metoprolol Tartrate 25 Mg Tab PO 25 mg BID [place] Administration Multi-Ingred Cream/Lotion/Oil/Oint 1 applic 07/28/20 09:30 Mineral Oil/Petrolatum, White Ophth Oint 3.5 Gm OU Q4H PRN Dry Eye(s) Scopolamine 1 each 08/07/20 13:00 08/16/20 09:15 Scopolamine Transdermal Patch 72 Hr TD 1 each Q3D [place] Administration Senna/Docusate Sodium 1 tab 07/28/20 22:00 08/16/20 09:15 Sennosides/Docusate Sodium 8.6/50 Mg Tab FEEDTUBE 1 tab BID [place] Administration Simple Syrup 15 ml 07/29/20 09:55 Simple Syrup 15 Ml FEEDTUBE PRN PRN Hypoglycemia Simple Syrup 30 ml 07/29/20 09:55 Simple Syrup 15 Ml FEEDTUBE PRN PRN Hypoglycemia Sodium Bicarbonate 325 mg 07/29/20 09:55 Sodium Bicarbonate 325 Mg Tab FEEDTUBE PRN PRN For Clogged Feeding Tube Sodium Chloride 10 ml 07/28/20 22:00 08/16/20 09:16 Sodium Chloride 0.9% 10 Ml Flush Syringe IV 10 ml BID [place] Administration Sodium Chloride 10 ml 07/28/20 14:27 Sodium Chloride 0.9% 10 Ml Flush Syringe IV PRN PRN LINE FLUSH Zinc Sulfate 220 mg 08/01/20 15:00 08/16/20 09:15 Zinc Sulfate 220 Mg Cap PO 220 mg BID [place] Administration Nutrition/Malnutrition Assess - Dietary Evaluation Nutrition/Malnutrition Findings: Nutrition Notes Start: 07/29/20 09:47 Freq: Status: Active Protocol: Document 08/13/20 10:57 MK (Rec: 08/13/20 10:59 MK [id number]) Nutrition Notes Initial or Follow up Reassessment Current Diagnosis Acute Kidney Injury, Respiratory Failure Other Pertinent Diagnosis Acute encephalopathy, Pneu, UTI, Quadriplegia Current Diet NPO Labs/Tests K 3.5 BUN 51 Pertinent Medications Reviewed Height 6 ft Weight 73.5 kg [place] Body Weight (kg) 80.90 BMI 21.9 Weight Status Appropriate Subjective/Other Information FU for TF restart. Observed TF running at goal rate and per RN the pt is tolerating it. Percent of energy/protein needs met: 100%/100% Burn Absent Trauma Absent Current % PO Negligible Minimum of two criteria No Fluid Accumulation Moderate to Severe (severe) #2 Nutrition Diagnosis Increased nutrient needs ( specify in comment below) Diagnosis Progress(for reassessment Continues documentation) #1 Nutrition Diagnosis Inadequate oral intake Diagnosis Progress(for reassessment Continues documentation) Is patient on ventilator? Yes Is Patient Ambulatory and/or Out of Bed No REE-([facility]-confined to bed) [phone] Calculation Used for Recommendations [facility] Additional Notes Pro needs 1.2-2g/k-163g/ day Fluid needs 1ml/kcal Nutrition Intervention Change Diet Order: Continue Nutrition Support: Continue Vital AF 1.2 at 65ml/ hr with 100 ml water flush q4h . Kcal 1,872 Protein (gm) 117 Fluid (mL) 1,265 Add Supplement/Snack (indicate name/kcal Reji BID /protein ) Provides kCal: 190 Provides Protein (gm) 5 Goal #1 TF tolerance Goal #2 TF to meet at least 80% energy and pro needs Anticipated Discharge Needs: Unable to determine at this time Follow-Up By: 08/17/20 Additional Comments FU for TF tolerance - Attestation Statement I have reviewed and agreed w/ Malnutrition eval & tx plan: Yes <DARI GIPSON - Last Filed: 08/17/20 17:18> Assessment and Plan Assessment and plan: Agree assessment and plan as outlined by nurse practitioner as above. I have personally seen and examined the patient, patient returned from thoracentesis. No respiratory distress. Waiting for LTAC. Hospitalist Physical - Constitutional Vitals: Temp Pulse Resp BP Pulse Ox 97.5 F L 75 20 132/69 98 08/16/20 12:00 08/16/20 15:19 08/16/20 15:19 08/16/20 15:19 08/16/20 15:19 HEART Score - HEART Score Troponin: Troponin T 0.115 ng/mL (0.00-0.029) H* 07/28/20 08:48 Results - Labs CBC & Chem 7: 08/17/20 09:40 08/17/20 09:40 Labs: Laboratory Last Values WBC 4.1 K/mm3 (4.5-11.0) L 08/16/20 08:02 RBC 2.70 M/mm3 (3.65-5.03) L 08/16/20 08:02 Hgb 7.6 gm/dl (11.8-15.2) L 08/16/20 08:02 Hct 22.9 % (35.5-45.6) L 08/16/20 08:02 MCV 85 fl (84-94) 08/16/20 08:02 MCH 28 pg (28-32) 08/16/20 08:02 MCHC 33 % (32-34) 08/16/20 08:02 RDW 18.5 % (13.2-15.2) H 08/16/20 08:02 Plt Count 184 K/mm3 (140-440) 08/16/20 08:02 Lymph % (Auto) Training Development Director 07/28/20 08:48 Motley % (Auto) Training Development Director 07/28/20 08:48 Eos % (Auto) Training Development Director 07/28/20 08:48 Baso % (Auto) Training Development Director 07/28/20 08:48 Lymph # (Auto) Training Development Director 07/28/20 08:48 Motley # (Auto) Training Development Director 07/28/20 08:48 Eos # (Auto) Training Development Director 07/28/20 08:48 Baso # (Auto) Training Development Director 07/28/20 08:48 Add Manual Diff Complete 08/12/20 04:53 Total Counted 100 06/27/21 04:53 Seg Neutrophils % Training Development Director 08/05/20 08:48 Seg Neuts % (Manual) 88.0 % (40.0-70.0) H 08/12/20 04:53 Band Neutrophils % 2.0 % 08/12/20 04:53 Lymphocytes % (Manual) 6.0 % (13.4-35.0) L 08/12/20 04:53 Reactive Lymphs % (Man) 1.0 % 08/05/20 08:48 Monocytes % (Manual) 4.0 % (0.0-7.3) 08/12/20 04:53 Metamyelocytes % 14.0 % 07/29/20 Unknown Nucleated RBC % Not Reportable 08/12/20 04:53 Seg Neutrophils # Training Development Director 07/28/20 08:48 Seg Neutrophils # Man 5.5 K/mm3 (1.8-7.7) 08/12/20 04:53 Band Neutrophils # 0.1 K/mm3 08/12/20 04:53 Lymphocytes # (Manual) 0.4 K/mm3 (1.2-5.4) L 08/12/20 04:53 Abs React Lymphs (Man) 0.0 K/mm3 08/12/20 04:53 Monocytes # (Manual) 0.2 K/mm3 (0.0-0.8) 08/12/20 04:53 Eosinophils # (Manual) 0.0 K/mm3 (0.0-0.4) 08/12/20 04:53 Basophils # (Manual) 0.0 K/mm3 (0.0-0.1) 08/12/20 04:53 Metamyelocytes # 0.0 K/mm3 08/12/20 04:53 Myelocytes # 0.0 K/mm3 08/12/20 04:53 Promyelocytes # 0.0 K/mm3 08/12/20 04:53 Blast Cells # 0.0 K/mm3 08/12/20 04:53 WBC Morphology Not Reportable 08/12/20 04:53 Hypersegmented Neuts Not Reportable 08/12/20 04:53 Hyposegmented Neuts Not Reportable 08/12/20 04:53 Hypogranular Neuts Not Reportable 08/12/20 04:53 Smudge Cells Not Reportable 08/12/20 04:53 Toxic Granulation Not Reportable 08/12/20 04:53 Toxic Vacuolation Not Reportable 08/12/20 04:53 Dohle Bodies Not Reportable 08/12/20 04:53 Pelger-Huet Anomaly Not Reportable 08/12/20 04:53 Janna Rods Not Reportable 08/12/20 04:53 Platelet Estimate Not Reportable 08/12/20 04:53 Clumped Platelets Not Reportable 08/12/20 04:53 Plt Clumps, EDTA Not Reportable 08/12/20 04:53 Large Platelets Not Reportable 08/12/20 04:53 Giant Platelets Not Reportable 08/12/20 04:53 Platelet Satelliting Not Reportable 08/12/20 04:53 Plt Morphology Comment Not Reportable 08/12/20 04:53 RBC Morphology Not Reportable 08/12/20 04:53 Dimorphic RBCs Not Reportable 08/12/20 04:53 Polychromasia Not Reportable 08/12/20 04:53 Hypochromasia 1+ 08/12/20 04:53 Poikilocytosis Not Reportable 08/12/20 04:53 Anisocytosis 1+ 08/12/20 04:53 Microcytosis Not Reportable 08/12/20 04:53 Macrocytosis Not Reportable 08/12/20 04:53 Spherocytes Not Reportable 08/12/20 04:53 Pappenheimer Bodies Not Reportable 08/12/20 04:53 Sickle Cells Not Reportable 08/12/20 04:53 Target Cells Few 08/12/20 04:53 Tear Drop Cells Not Reportable 08/12/20 04:53 Ovalocytes Not Reportable 08/12/20 04:53 Helmet Cells Not Reportable 08/12/20 04:53 [place] Bodies Not Reportable 08/12/20 04:53 [place] Rings Not Reportable 08/12/20 04:53 [place] Cells Not Reportable 08/12/20 04:53 Bite Cells Not Reportable 08/12/20 04:53 Crenated Cell Not Reportable 08/12/20 04:53 Elliptocytes Not Reportable 08/12/20 04:53 Acanthocytes (Spur) Not Reportable 08/12/20 04:53 Rouleaux Not Reportable 08/12/20 04:53 Hemoglobin C Crystals Not Reportable 08/12/20 04:53 Schistocytes Not Reportable 08/12/20 04:53 Malaria parasites Not Reportable 08/12/20 04:53 Percent Retic 1.65 % (0.78-2.58) 08/12/20 04:53 [place] Bodies Not Reportable 08/12/20 04:53 Haptoglobin 420 mg/dL (43-212) H 08/12/20 04:43 Hem Pathologist Commnt No 08/12/20 04:53 PT 14.7 Sec. (12.2-14.9) 08/15/20 10:28 INR 1.09 (0.87-1.13) 08/15/20 10:28 APTT 34.7 Sec. (24.2-36.6) 07/28/20 08:48 Heparin Anti-Xa, Unfract Negative (Negative) 08/01/20 23:40 ABG pH 7.431 pH Units (7.350-7.450) 08/15/20 Unknown POC ABG pCO2 46.9 mmHg (32.0-48.0) 08/11/20 22:13 ABG pCO2 35.7 mm Hg 08/15/20 Unknown POC ABG pO2 163.6 mmHg (83-108) H 08/11/20 22:13 ABG pO2 77.7 mm Hg (80.0-90.0) L 08/15/20 Unknown POC ABG HCO3 25.5 08/11/20 22:13 ABG HCO3 23.2 mmol/L (20.0-26.0) 08/15/20 Unknown ABG O2 Saturation 96.5 % (95.0-99.0) 08/15/20 Unknown ABG O2 Content 12.3 (0.0-44) 08/15/20 Unknown POC ABG Base Excess -0.1 08/11/20 22:13 ABG Base Excess -0.8 mmol/L (-2.0-3.0) 08/15/20 Unknown ABG Hemoglobin 9.2 gm/dl (14.0-18.0) L 08/15/20 Unknown ABG Oxyhemoglobin 98.3 (94-98) H 08/11/20 22:13 ABG Carboxyhemoglobin 1.2 % (0.0-5.0) 08/15/20 Unknown ABG Methemoglobin 0.4 % (0.0-1.5) 08/15/20 Unknown ABG Sodium 143.9 mmol/L (136.0-145.0) 08/11/20 22:13 ABG Potassium 3.6 mmol/L (3.40-4.50) 08/11/20 22:13 ABG Chloride 112.0 mmol/L (98-107) H 08/11/20 22:13 ABG Glucose 119 mg/dL (65-95) H 08/11/20 22:13 VBG pH 7.377 (7.320-7.420) 07/28/20 09:44 Oxyhemoglobin 94.9 % (95.0-99.0) L 08/15/20 Unknown Carboxyhemoglobin 0.9 (0.5-1.5) 08/11/20 22:13 FiO2 60 % 08/15/20 Unknown FiO2 % 100.0 08/11/20 22:13 Sodium 143 mmol/L (137-145) 08/16/20 08:02 Potassium 3.8 mmol/L (3.6-5.0) 08/16/20 08:02 Chloride 110.1 mmol/L (98-107) H 08/16/20 08:02 Carbon Dioxide 24 mmol/L (22-30) 08/16/20 08:02 Anion Gap 13 mmol/L 08/16/20 08:02 BUN 45 mg/dL (9-20) H 08/16/20 08:02 Creatinine 0.9 mg/dL (0.8-1.3) 08/16/20 08:02 Estimated GFR > 60 ml/min 08/16/20 08:02 BUN/Creatinine Ratio 50 % 08/16/20 08:02 Glucose 187 mg/dL (75-100) H 08/16/20 08:02 POC Glucose 126 mg/dL (70-105) H 08/16/20 12:28 Hemoglobin A1c 8.8 % (4-6) H 08/01/20 04:30 Lactic Acid 1.60 mmol/L (0.7-2.0) 07/30/20 05:45 Calcium 7.7 mg/dL (8.4-10.2) L 08/16/20 08:02 Ionized Calcium 4.2 mg/dL (4.8-5.6) L 07/30/20 19:01 Phosphorus 2.90 mg/dL (2.5-4.5) D 08/04/20 03:00 Magnesium 2.30 mg/dL (1.7-2.3) 08/02/20 Unknown Total Bilirubin 0.20 mg/dL (0.1-1.2) 08/12/20 04:43 Direct Bilirubin < 0.2 mg/dL (0-0.2) 08/12/20 04:43 Indirect Bilirubin 0.0 mg/dL 08/12/20 04:43 AST 57 units/L (5-40) H 08/12/20 04:43 ALT 33 units/L (7-56) 08/12/20 04:43 Alkaline Phosphatase 288 units/L (35-129) H 08/12/20 04:43 Ammonia 63.0 umol/L (25-60) H 07/28/20 08:48 Lactate Dehydrogenase 239 units/L (91-180) H 08/12/20 04:43 Total Creatine Kinase 486 units/L (55-170) H 07/28/20 08:48 Troponin T 0.115 ng/mL (0.00-0.029) H* 07/28/20 08:48 C-Reactive Protein 9.00 mg/dL (0.00-1.30) H 07/28/20 19:50 Total Protein 6.0 g/dL (6.3-8.2) L 08/12/20 04:43 Albumin 1.7 g/dL (3.9-5) L 08/12/20 04:43 Albumin/Globulin Ratio 0.4 % 08/12/20 04:43 Triglycerides 184 mg/dL (2-149) H 08/04/20 03:00 Cholesterol 80 mg/dL (50-199) 07/28/20 08:48 LDL Cholesterol Direct 44 mg/dL (50-130) L 07/28/20 08:48 HDL Cholesterol 26 mg/dL (40-59) L 07/28/20 08:48 Cholesterol/HDL Ratio 3.07 % 07/28/20 08:48 Serotonin Release Assay See scanned result 08/01/20 23:40 Procalcitonin 177.82 ng/mL (<0.15) 07/28/20 19:50 TSH 2.450 mlU/mL (0.270-4.200) 07/28/20 08:48 Arterial Blood Glucose 119 mg/dL (65-95) H 08/11/20 22:13 Arterial Blood Ionized Calcium 4.4 mg/dL (4.6-5.3) L 08/11/20 22:13 Urine Color [place] (Yellow) 07/28/20 Unknown Urine Turbidity Cloudy (Clear) 07/28/20 Unknown Urine pH 5.0 (5.0-7.0) 07/28/20 Unknown Ur Specific [place] 1.018 (1.003-1.030) 07/28/20 Unknown Urine Protein 100 mg/dl mg/dL (Negative) 07/28/20 Unknown Urine Glucose (UA) Neg mg/dL (Negative) 07/28/20 Unknown Urine Ketones Neg mg/dL (Negative) 07/28/20 Unknown Urine Blood Lg (Negative) 07/28/20 Unknown Urine Nitrite Neg (Negative) 07/28/20 Unknown Urine Bilirubin Neg (Negative) 07/28/20 Unknown Urine Urobilinogen 2.0 mg/dL (<2.0) 07/28/20 Unknown Ur Leukocyte Esterase Lg (Negative) 07/28/20 Unknown Urine WBC (Auto) > 182.0 /HPF (0.0-6.0) H 07/28/20 Unknown Urine RBC (Auto) 30.0 /HPF (0.0-6.0) 07/28/20 Unknown U Epithel Cells (Auto) 2.0 /HPF (0-13.0) 07/28/20 Unknown Urine Bacteria (Auto) 1+ /HPF (Negative) 07/28/20 Unknown Ur Transition Epith Cell 4 /HPF 07/28/20 Unknown Hyaline Casts 5 /LPF 07/28/20 Unknown Urine Mucus Few /HPF 07/28/20 Unknown Nasal Screen MRSA (PCR) Negative (Negative) 07/29/20 Unknown Salicylates < 0.3 mg/dL (2.8-20.0) L 07/28/20 09:44 Plasma/Serum Alcohol < 0.01 % (0-0.07) 07/28/20 09:44 Heparin-induced Plt Ab Negative (Negative) 08/01/20 23:40 UF Heparin High Dose 0 % Release 08/01/20 23:40 DEISY UFH Low Dose 0.1 0 % Release 08/01/20 23:40 DEISY UFH Low Dose 0.5 0 % Release 08/01/20 23:40 Coronavirus (PCR) Negative (Negative) 07/29/20 09:15 AFB Identification 08/06/20 11:55 Fungal Id Prelim Positive 08/06/20 11:55 Blood Type O POSITIVE 08/10/20 18:08 Antibody Screen Negative 08/10/20 18:08 Crossmatch See Detail 08/10/20 18:08 Ashley/IV: Voiding Method Indwelling Catheter Active Medications - Current Medications Current Medications: Generic Name Dose Route Start Last Admin Trade Name Freq PRN Reason Stop Dose Admin Acetaminophen 650 mg 07/28/20 14:27 08/08/20 21:50 Acetaminophen 325 Mg Tab PO 650 mg Q6H PRN Administration Pain, Mild (1-3) Albuterol 2.5 mg 07/28/20 14:27 08/05/20 14:27 Albuterol 2.5 Mg/3 Ml Nebu IH 2.5 mg Q3H PRN Administration Shortness Of Breath Amlodipine Besylate 10 mg 08/15/20 10:00 08/16/20 09:15 Amlodipine 10 Mg Tab PO 10 mg QDAY [place] Administration Lipase/Protease/Amylase 1 each 07/29/20 09:55 Lipase 10,500/Protease 25,000/Amylase 43,750 (Units) Dr Velasquez FEEDTUBE PRN PRN For Clogged Feeding Tube Ascorbic Acid 500 mg 08/01/20 22:00 08/16/20 09:15 Ascorbic Acid 500 Mg Tab PO 500 mg BID [place] Administration Bisacodyl 10 mg 08/16/20 14:28 Bisacodyl 10 Mg Rect Supp [place] QDAY PRN Constipation Dextrose 50 ml 07/29/20 15:46 08/15/20 10:45 Dextrose 50% In Water (25gm) 50 Ml Syringe IV 50 ml Q30MIN PRN Administration Hypoglycemia Protocol Enoxaparin Sodium 40 mg 08/17/20 10:00 Enoxaparin 40 Mg/0.4 Ml Inj SUB-Q QDAY@1000 [place] Famotidine 20 mg 07/30/20 10:00 08/16/20 09:15 Famotidine 20 Mg Tab PO 20 mg BID [place] Administration Hydralazine HCl 10 mg 08/07/20 10:49 Hydralazine 20 Mg/1 Ml Inj IV Q4HR PRN Give if SBP>180 DBP>100 Hydromorphone HCl 1 mg 08/07/20 12:28 08/12/20 18:19 Hydromorphone 1 Mg/1 Ml Inj IV 1 mg Q4H PRN Administration Pain , Severe (7-10) Hydrophilic Ointment 1 applic 07/28/20 09:30 Lip Therapy Vaseline TP Q2H PRN Dry Lips Dextrose/Sodium Chloride 1,000 mls @ 42 mls/hr 08/16/20 14:00 D5ns IV DIRECT [place] Insulin Human Lispro 0 unit 08/04/20 12:00 08/16/20 12:02 Insulin Lispro 100 Unit/Ml SUB-Q Not Given Q6HR [facility] Protocol Metoprolol Tartrate 25 mg 08/14/20 22:00 08/16/20 09:16 Metoprolol Tartrate 25 Mg Tab PO 25 mg BID [place] Administration Multi-Ingred Cream/Lotion/Oil/Oint 1 applic 07/28/20 09:30 Mineral Oil/Petrolatum, White Ophth Oint 3.5 Gm OU Q4H PRN Dry Eye(s) Scopolamine 1 each 08/07/20 13:00 08/16/20 09:15 Scopolamine Transdermal Patch 72 Hr TD 1 each Q3D [place] Administration Senna/Docusate Sodium 1 tab 07/28/20 22:00 08/16/20 09:15 Sennosides/Docusate Sodium 8.6/50 Mg Tab FEEDTUBE 1 tab BID [place] Administration Simple Syrup 15 ml 07/29/20 09:55 Simple Syrup 15 Ml FEEDTUBE PRN PRN Hypoglycemia Simple Syrup 30 ml 07/29/20 09:55 Simple Syrup 15 Ml FEEDTUBE PRN PRN Hypoglycemia Sodium Bicarbonate 325 mg 07/29/20 09:55 Sodium Bicarbonate 325 Mg Tab FEEDTUBE PRN PRN For Clogged Feeding Tube Sodium Chloride 10 ml 07/28/20 22:00 08/16/20 09:16 Sodium Chloride 0.9% 10 Ml Flush Syringe IV 10 ml BID [place] Administration Sodium Chloride 10 ml 07/28/20 14:27 Sodium Chloride 0.9% 10 Ml Flush Syringe IV PRN PRN LINE FLUSH Zinc Sulfate 220 mg 08/01/20 15:00 08/16/20 09:15 Zinc Sulfate 220 Mg Cap PO 220 mg BID [place] Administration Nutrition/Malnutrition Assess - Dietary Evaluation Nutrition/Malnutrition Findings: Nutrition Notes Start: 07/29/20 09:47 Freq: Status: Active Protocol: Document 08/13/20 10:57 MK (Rec: 08/13/20 10:59 MK [id number]) Nutrition Notes Initial or Follow up Reassessment Current Diagnosis Acute Kidney Injury, Respiratory Failure Other Pertinent Diagnosis Acute encephalopathy, Pneu, UTI, Quadriplegia Current Diet NPO Labs/Tests K 3.5 BUN 51 Pertinent Medications Reviewed Height 6 ft Weight 73.5 kg [place] Body Weight (kg) 80.90 BMI 21.9 Weight Status Appropriate Subjective/Other Information FU for TF restart. Observed TF running at goal rate and per RN the pt is tolerating it. Percent of energy/protein needs met: 100%/100% Burn Absent Trauma Absent Current % PO Negligible Minimum of two criteria No Fluid Accumulation Moderate to Severe (severe) #2 Nutrition Diagnosis Increased nutrient needs ( specify in comment below) Diagnosis Progress(for reassessment Continues documentation) #1 Nutrition Diagnosis Inadequate oral intake Diagnosis Progress(for reassessment Continues documentation) Is patient on ventilator? Yes Is Patient Ambulatory and/or Out of Bed No REE-([facility]-confined to bed) 1231.246 Calculation Used for Recommendations [facility] Additional Notes Pro needs 1.2-2g/k-163g/ day Fluid needs 1ml/kcal Nutrition Intervention Change Diet Order: Continue Nutrition Support: Continue Vital AF 1.2 at 65ml/ hr with 100 ml water flush q4h . Kcal 1,872 Protein (gm) 117 Fluid (mL) 1,265 Add Supplement/Snack (indicate name/kcal Reji BID /protein ) Provides kCal: 190 Provides Protein (gm) 5 Goal #1 TF tolerance Goal #2 TF to meet at least 80% energy and pro needs Anticipated Discharge Needs: Unable to determine at this time Follow-Up By: 08/17/20 Additional Comments FU for TF tolerance
--- NOTE | 2020-08-16 15:13 | Procedure Note ---
Date of procedure: 08/16/20 Pre-op diagnosis: left pleural effusioni Post-op diagnosis: same Procedure: US thoracentesis Findings: moderate left pleural effusion Anesthesia: local Surgeon: OTRI ANTUNEZ Estimated blood loss: none Pathology: list (120cc) Specimen disposition: to lab Condition: stable Disposition: floor
--- NOTE | 2020-08-16 16:42 | XRay Report ---
CHEST 1 VIEW 08/16/2020 3:23 PM INDICATION / CLINICAL INFORMATION: left pl effusion, recent thora. COMPARISON: 08/14/2020 FINDINGS: SUPPORT DEVICES: Tracheostomy tube appears unchanged HEART / MEDIASTINUM: Unchanged LUNGS / PLEURA: Bilateral pulmonary opacities have mildly improved. There are bilateral pleural effus ions which appears similar. No pneumothorax. ADDITIONAL FINDINGS: No significant additional findings. IMPRESSION: 1. Mild interval improvement Signer Name: Chi Mathews MD Signed: 08/16/2020 4:38 PM Workstation Name: [id number]
[2020-08-16 18:28] LABS: Total Cells Counted 100 /mm3
[2020-08-17] MEDS: INSULIN LISPRO 100 UNIT/ML SUB-Q SCH ×4 (00:30→17:04)
[2020-08-17] MEDS: FREE WATER PO SCH ×6 (02:44→21:30)
--- NOTE | 2020-08-17 08:02 | Ultrasound Report ---
Ultrasound-guided thoracentesis HISTORY: left pleural effusion. COMPARISON: 08/14/2020 PROCEDURE: The risks (including but not limited to bleeding, infection, and pneumothorax) and benefi ts were explained to the patient's daughter and informed consent was obtained. A time out procedure was performed. Ultrasound was used to evaluate the left pleural effusion and locate the optimal site for needle entr y. Once the skin was marked, the procedure site was prepped and draped in the usual sterile fashion and lidocaine was used for local anesthesia. A skin alycia was made and a 6-Swedish thoracentesis nay ter was placed. The patient was monitored closely throughout the procedure, and a total of 800 mL of clear yellow fluid was aspirated. Samples were sent to the lab for further evaluation per the [facility] clinicians orders. The patient tolerated the procedure well with no complications. A post-procedure chest x-ray was imm ediately ordered. IMPRESSION: Successful thoracentesis as above with a total of 800 mL of clear yellow fluid aspirated. Signer Name: Kyle Tyler Jr, MD Signed: 08/17/2020 7:57 AM Workstation Name: [id number]
--- NOTE | 2020-08-17 08:28 | XRay Report ---
CHEST 1 VIEW 08/17/2020 8:10 AM INDICATION / CLINICAL INFORMATION: Respiratory failure. COMPARISON: Yesterday. FINDINGS: SUPPORT DEVICES: The position of the tracheostomy tube has not changed. HEART / MEDIASTINUM: Unchanged. LUNGS / PLEURA: There is moderate patchy pleuroparenchymal disease in both mid to lower hemithoraces, mildly increased since yesterday. No pneumothorax. ADDITIONAL FINDINGS: No significant additional findings. IMPRESSION: Mild increase in bilateral pleuroparenchymal opacities. Signer Name: Jb Myles MD Signed: 08/17/2020 8:23 AM Workstation Name: [id number]
[2020-08-17] MEDS: ZINC SULFATE 220 MG CAP PO SCH ×2 (09:34→21:05)
[2020-08-17] MEDS: METOPROLOL TARTRATE 50 MG TAB PO SCH ×2 (09:34→21:05)
[2020-08-17] MEDS: ENOXAPARIN 40 MG/0.4 ML INJ SUB-Q SCH (09:34)
[2020-08-17] MEDS: SENNOSIDES/DOCUSATE SODIUM 8.6/50 MG TAB FEEDTUBE SCH ×2 (09:34→21:12)
[2020-08-17] MEDS: ASCORBIC ACID 500 MG TAB PO SCH ×2 (09:35→21:05)
[2020-08-17] MEDS: FAMOTIDINE 20 MG TAB PO SCH ×2 (09:35→21:05)
[2020-08-17] MEDS: amLODIPine 10 MG TAB PO SCH (09:35)
[2020-08-17 10:26] LABS: Alanine Aminotransferase 93 units/L (7-56); Albumin 1.9 g/dL (3.9-5); BUN/Creatinine Ratio 47; Blood Urea Nitrogen 42 mg/dL (9-20); Calcium 8.4 mg/dL (8.4-10.2); Hemolysis Index 7
--- NOTE | 2020-08-17 11:09 | Progress Note ---
Assessment and Plan Cultures: 07/28/2020 blood culture: C albicans, later addended to C parapsilosis 07/28/2020 urine culture: No growth COVID PCR: negative 07/31/2020 blood culture: Coag negative staph in 1 of 4 bottles (contaminant) 08/02/2020 blood culture: No growth 08/06/2020 Resp culture: normal resp hawk 08/06/2020 BAL AFB stain: negative 08/06/2020 BAL fungal culture: stain positive, culture in process. 08/16/2020 pleural fluid: 425 WBC, 3000 RBC. Culture in process. A/P: 69-year-old retirement resident with quadriplegia, spinal cord injury, was brought in due to fever and sepsis: #Septic shock: Resolved likely due to candidemia +/-pneumonia. #Candidemia: Unclear source. ?IV line. Transthoracic echo without vegetation. Repeat blood culture no growth. Completed fluconazole course for Jennyfer albicans. I reviewed the scanned lab section on 08/17/2020 and noted that blood culture done on 07/28/2020 was identified as Jennyfer parapsilosis resistant to fluconazole. In the microbiology section, it continues to be listed as Jennyfer albicans which is typically susceptible to fluconazole. Lab did not notify us about the error or addended report. Considering this discrepancy, best to treat with IV micafungin for 14 days. D/W pharmacy. #Pneumonia: CT chest showed patchy airspace disease suggestive of possible aspiration. Chest x-ray with left lung whiteout, got bronch with suctioning of mucous plug, cultures with normal resp hawk. Treated with abx. #B/L pleural effusions: s/p thoracentesis on 08/16/2020, about 800 cc of clear straw colored fluid drained. #UTI with chronic indwelling catheter: s/p abx #Acute hypoxic respiratory failure: On mechanical ventilation. #Transaminitis: now increased again with rise in alkaline phosphatase. #Sacral decubitus ulcer: Continue wound care, offloading as possible Recs: -IV micafungin 100 mg daily ending 08/31/2020 -increased LFTs, ordered RUQ US Dominga Simmons MD, FACP [facility] ([facility] O: [phone] F: [phone] Subjective Date of service: 08/17/20 Principal diagnosis: Ac. encephalopathy; Ac. hypoxemic resp failure; Septic Shock; PNA; UTI; JEFFERSON Interval history: Remains afebrile, on the vent via trach. Remains off abx. Awake, tracking + Objective - Exam Narrative Exam: Physical Exam: Constitutional: eyes open, tracks, on the vent via trach Head, Ears, Nose: Normocephalic, atraumatic. External ears, nose normal Eyes: Conjunctivae/corneas clear. No icterus. No ptosis. Neck: trach + Cardiovascular: S1, S2 + Respiratory: AE decreased in the bases GI: Soft, bowel sounds +, G tube + Musculoskeletal: pedal edema + Skin: No rash or abscess Hem/Lymphatic: No palpable cervical or supraclavicular nodes. No lymphangitis Psych: no agitation Neurological: eyes open, tracking - Constitutional Vitals: Vital Signs Temp Pulse Resp BP Pulse Ox 98.6 F 103 H 30 H 152/74 100 08/17/20 00:00 08/17/20 10:01 08/17/20 10:01 08/17/20 10:01 08/17/20 10:01 Temperature -Last 24 Hours Temperature 98.6 F Temperature 98.6 F Temperature 97.5 F - Labs CBC & Chem 7: 08/16/20 08:02 08/17/20 09:40 Labs: Abnormal lab results 08/16/20 08/16/20 08/17/20 Range/Units 12:28 17:21 00:20 Chloride (98-107) mmol/L BUN (9-20) mg/dL Glucose (75-100) mg/dL POC Glucose 126 H 107 H 194 H (70-105) mg/dL AST (5-40) units/L ALT (7-56) units/L Alkaline Phosphatase (35-129) units/L Total Protein (6.3-8.2) g/dL Albumin (3.9-5) g/dL 08/17/20 08/17/20 Range/Units 06:02 09:40 Chloride 107.5 H (98-107) mmol/L BUN 42 H (9-20) mg/dL Glucose 205 H (75-100) mg/dL POC Glucose 199 H (70-105) mg/dL AST 69 H (5-40) units/L ALT 93 H (7-56) units/L Alkaline Phosphatase 556 H (35-129) units/L Total Protein 6.2 L (6.3-8.2) g/dL Albumin 1.9 L (3.9-5) g/dL
[2020-08-17 11:22] LABS: Hematocrit 24.1 % (35.5-45.6); Hemoglobin 7.9 gm/dl (11.8-15.2); Mean Corpuscular HGB Conc 33 % (32-34); Mean Corpuscular Volume 87 fl (84-94); Platelet Count 238 K/mm3 (140-440); Red Blood Count 2.78 M/mm3 (3.65-5.03); Red Cell Distribution Width 19.3 % (13.2-15.2)
--- NOTE | 2020-08-17 11:34 | Progress Note ---
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 Feeding Tube Ascorbic Acid 500 mg 08/01/20 22:00 08/17/20 09:35 Ascorbic Acid 500 Mg Tab PO 500 mg BID [place] Administration Bisacodyl 10 mg 08/16/20 14:28 Bisacodyl 10 Mg Rect Supp SD QDAY PRN Constipation Dextrose 50 ml 07/29/20 15:46 08/15/20 10:45 Dextrose 50% In Water (25gm) 50 Ml Syringe IV 50 ml Q30MIN PRN Administration Hypoglycemia Protocol Enoxaparin Sodium 40 mg 08/17/20 10:00 08/17/20 09:34 Enoxaparin 40 Mg/0.4 Ml Inj SUB-Q 40 mg QDAY@1000 [place] Administration Famotidine 20 mg 07/30/20 10:00 08/17/20 09:35 Famotidine 20 Mg Tab PO 20 mg BID [place] Administration Hydralazine HCl 10 mg 08/07/20 10:49 Hydralazine 20 Mg/1 Ml Inj IV Q4HR PRN Give if SBP>180 DBP>100 Hydromorphone HCl 1 mg 08/07/20 12:28 08/12/20 18:19 Hydromorphone 1 Mg/1 Ml Inj IV 1 mg Q4H PRN Administration Pain , Severe (7-10) Hydrophilic Ointment 1 applic 07/28/20 09:30 Lip Therapy Vaseline TP Q2H PRN Dry Lips Micafungin Sodium 100 mg/ 100 mls @ 100 mls/hr 08/17/20 12:00 Sodium Chloride IV 08/31/20 12:59 Q24H [facility] Protocol Insulin Glargine 10 units 08/17/20 22:00 Insulin Glargine 100 Units/Ml SUB-Q QHS [facility] Insulin Human Lispro 0 unit 08/04/20 12:00 08/17/20 06:43 Insulin Lispro 100 Unit/Ml SUB-Q 3 unit Q6HR [facility] Administration Protocol Metoprolol Tartrate 50 mg 08/17/20 10:00 08/17/20 09:34 Metoprolol Tartrate 50 Mg Tab PO 50 mg BID [place] Administration Multi-Ingred Cream/Lotion/Oil/Oint 1 applic 07/28/20 09:30 Mineral Oil/Petrolatum, White Ophth Oint 3.5 Gm OU Q4H PRN Dry Eye(s) Scopolamine 1 each 08/07/20 13:00 08/16/20 09:15 Scopolamine Transdermal Patch 72 Hr TD 1 each Q3D [place] Administration Senna/Docusate Sodium 1 tab 07/28/20 22:00 08/17/20 09:34 Sennosides/Docusate Sodium 8.6/50 Mg Tab FEEDTUBE 1 tab BID [place] Administration Simple Syrup 15 ml 07/29/20 09:55 Simple Syrup 15 Ml FEEDTUBE PRN PRN Hypoglycemia Simple Syrup 30 ml 07/29/20 09:55 Simple Syrup 15 Ml FEEDTUBE PRN PRN Hypoglycemia Sodium Bicarbonate 325 mg 06/13/21 09:55 Sodium Bicarbonate 325 Mg Tab FEEDTUBE PRN PRN For Clogged Feeding Tube Sodium Chloride 10 ml 07/28/20 22:00 08/17/20 09:37 Sodium Chloride 0.9% 10 Ml Flush Syringe IV 10 ml BID [place] Administration Sodium Chloride 10 ml 07/28/20 14:27 Sodium Chloride 0.9% 10 Ml Flush Syringe IV PRN PRN LINE FLUSH Zinc Sulfate 220 mg 08/01/20 15:00 08/17/20 09:34 Zinc Sulfate 220 Mg Cap PO 220 mg BID [place] Administration Nutrition/Malnutrition Assess - Dietary Evaluation Nutrition/Malnutrition Findings: Nutrition Notes Start: 07/29/20 09:47 Freq: Status: Active Protocol: Document 08/17/20 11:01 RACHAEL (Rec: 08/17/20 11:05 [id number]) Nutrition Notes Initial or Follow up Reassessment Current Diagnosis Acute Kidney Injury, Respiratory Failure Other Pertinent Diagnosis Acute encephalopathy, Pneu, UTI, Quadriplegia Current Diet Vital AF 1.2 at 65 ml/hr Labs/Tests BG 205 Pertinent Medications Humalog Height 6 ft Weight 79.2 kg [place] Body Weight (kg) 80.90 BMI 23.6 Weight Status Appropriate Subjective/Other Information FU for TF tolerance. Observed TF running at goal rate and pt tolerating. Percent of energy/protein needs met: 98%/100% Burn Absent Trauma Absent Current % PO Negligible Minimum of two criteria No Fluid Accumulation Moderate to Severe (severe) #2 Nutrition Diagnosis Increased nutrient needs ( specify in comment below) Diagnosis Progress(for reassessment Continues documentation) #1 Nutrition Diagnosis Inadequate oral intake Diagnosis Progress(for reassessment Continues documentation) Is patient on ventilator? Yes Is Patient Ambulatory and/or Out of Bed No [facility] 4563.772 Calculation Used for Recommendations [facility] Additional Notes Pro needs 1.2-2g/k-163g/ day Fluid needs 1ml/kcal Nutrition Intervention Change Diet Order: Continue Nutrition Support: Continue Vital AF 1.2 at 65ml/ hr with 100 ml water flush q4h . Kcal 1,872 Protein (gm) 117 Fluid (mL) 1,265 Add Supplement/Snack (indicate name/kcal Reji BID /protein ) Provides kCal: 190 Provides Protein (gm) 5 Goal #1 TF tolerance Goal #2 TF to meet at least 80% energy and pro needs Anticipated Discharge Needs: Unable to determine at this time Follow-Up By: 08/22/20 Additional Comments FU for TF tolerance, BG, Reji administration <DARI GIPSON - Last Filed: 08/18/20 12:48> Assessment and Plan Assessment and plan: Agree with assessment and plan as outlined by nurse practitioner, I personally examined the patient. Breathing has improved after thoracentesis. Patient to go to LTAC. Hospitalist Physical - Constitutional Vitals: Temp Pulse Resp BP Pulse Ox 97.4 F L 69 17 142/66 100 08/18/20 12:00 08/18/20 12:01 08/18/20 12:01 08/18/20 12:01 08/18/20 12:01 HEART Score - HEART Score Troponin: Troponin T 0.115 ng/mL (0.00-0.029) H* 07/28/20 08:48 Results - Labs CBC & Chem 7: 08/18/20 06:46 08/18/20 06:46 Labs: Laboratory Last Values WBC 7.6 K/mm3 (4.5-11.0) 08/18/20 06:46 RBC 3.37 M/mm3 (3.65-5.03) L 08/18/20 06:46 Hgb 9.5 gm/dl (11.8-15.2) L 08/18/20 06:46 Hct 29.3 % (35.5-45.6) L 08/18/20 06:46 MCV 87 fl (84-94) 08/18/20 06:46 MCH 28 pg (28-32) 08/18/20 06:46 MCHC 32 % (32-34) 08/18/20 06:46 RDW 19.3 % (13.2-15.2) H 08/18/20 06:46 Plt Count 173 K/mm3 (140-440) 08/18/20 06:46 Lymph % (Auto) Dethistler Operator 07/28/20 08:48 Bleckley % (Auto) Dethistler Operator 07/28/20 08:48 Eos % (Auto) [employer]ethistler Operator 07/28/20 08:48 Baso % (Auto) [place]ethistler Operator 07/28/20 08:48 Lymph # (Auto) [place]ethistler Operator 07/28/20 08:48 Bleckley # (Auto) Dethistler Operator 07/28/20 08:48 Eos # (Auto) Dethistler Operator 07/28/20 08:48 Baso # (Auto) Dethistler Operator 07/28/20 08:48 Add Manual Diff Complete 08/12/20 04:53 Total Counted 100 08/12/20 04:53 Seg Neutrophils % [place]ethistler Operator 08/05/20 08:48 Seg Neuts % (Manual) 88.0 % (40.0-70.0) H 08/12/20 04:53 Band Neutrophils % 2.0 % 08/12/20 04:53 Lymphocytes % (Manual) 6.0 % (13.4-35.0) L 08/12/20 04:53 Reactive Lymphs % (Man) 1.0 % 08/05/20 08:48 Monocytes % (Manual) 4.0 % (0.0-7.3) 08/12/20 04:53 Metamyelocytes % 14.0 % 07/29/20 Unknown Nucleated RBC % Not Reportable 08/12/20 04:53 Seg Neutrophils # Dethistler Operator 07/28/20 08:48 Seg Neutrophils # Man 5.5 K/mm3 (1.8-7.7) 08/12/20 04:53 Band Neutrophils # 0.1 K/mm3 08/12/20 04:53 Lymphocytes # (Manual) 0.4 K/mm3 (1.2-5.4) L 08/12/20 04:53 Abs React Lymphs (Man) 0.0 K/mm3 08/12/20 04:53 Monocytes # (Manual) 0.2 K/mm3 (0.0-0.8) 08/12/20 04:53 Eosinophils # (Manual) 0.0 K/mm3 (0.0-0.4) 08/12/20 04:53 Basophils # (Manual) 0.0 K/mm3 (0.0-0.1) 08/12/20 04:53 Metamyelocytes # 0.0 K/mm3 08/12/20 04:53 Myelocytes # 0.0 K/mm3 08/12/20 04:53 Promyelocytes # 0.0 K/mm3 08/12/20 04:53 Blast Cells # 0.0 K/mm3 08/12/20 04:53 WBC Morphology Not Reportable 08/12/20 04:53 Hypersegmented Neuts Not Reportable 08/12/20 04:53 Hyposegmented Neuts Not Reportable 08/12/20 04:53 Hypogranular Neuts Not Reportable 08/12/20 04:53 Smudge Cells Not Reportable 08/12/20 04:53 Toxic Granulation Not Reportable 08/12/20 04:53 Toxic Vacuolation Not Reportable 08/12/20 04:53 Dohle Bodies Not Reportable 08/12/20 04:53 Pelger-Huet Anomaly Not Reportable 08/12/20 04:53 Janna Rods Not Reportable 08/12/20 04:53 Platelet Estimate Not Reportable 08/12/20 04:53 Clumped Platelets Not Reportable 08/12/20 04:53 Plt Clumps, EDTA Not Reportable 08/12/20 04:53 Large Platelets Not Reportable 08/12/20 04:53 Giant Platelets Not Reportable 08/12/20 04:53 Platelet Satelliting Not Reportable 08/12/20 04:53 Plt Morphology Comment Not Reportable 08/12/20 04:53 RBC Morphology Not Reportable 08/12/20 04:53 Dimorphic RBCs Not Reportable 08/12/20 04:53 Polychromasia Not Reportable 08/12/20 04:53 Hypochromasia 1+ 08/12/20 04:53 Poikilocytosis Not Reportable 08/12/20 04:53 Anisocytosis 1+ 08/12/20 04:53 Microcytosis Not Reportable 08/12/20 04:53 Macrocytosis Not Reportable 08/12/20 04:53 Spherocytes Not Reportable 08/12/20 04:53 Pappenheimer Bodies Not Reportable 08/12/20 04:53 Sickle Cells Not Reportable 08/12/20 04:53 Target Cells Few 08/12/20 04:53 Tear Drop Cells Not Reportable 08/12/20 04:53 Ovalocytes Not Reportable 08/12/20 04:53 Helmet Cells Not Reportable 08/12/20 04:53 Ramirez-Clara Bodies Not Reportable 08/12/20 04:53 Argyle Rings Not Reportable 08/12/20 04:53 Sharon Cells Not Reportable 08/12/20 04:53 Bite Cells Not Reportable 08/12/20 04:53 Crenated Cell Not Reportable 08/12/20 04:53 Elliptocytes Not Reportable 08/12/20 04:53 Acanthocytes (Spur) Not Reportable 08/12/20 04:53 Rouleaux Not Reportable 08/12/20 04:53 Hemoglobin C Crystals Not Reportable 08/12/20 04:53 Schistocytes Not Reportable 08/12/20 04:53 Malaria parasites Not Reportable 08/12/20 04:53 Percent Retic 1.65 % (0.78-2.58) 08/12/20 04:53 Lito Bodies Not Reportable 08/12/20 04:53 Haptoglobin 420 mg/dL (43-212) H 08/12/20 04:43 Hem Pathologist Commnt No 08/12/20 04:53 PT 14.7 Sec. (12.2-14.9) 08/15/20 10:28 INR 1.09 (0.87-1.13) 08/15/20 10:28 APTT 34.7 Sec. (24.2-36.6) 07/28/20 08:48 Heparin Anti-Xa, Unfract Negative (Negative) 08/01/20 23:40 ABG pH 7.480 (7.320-7.450) H 08/18/20 05:00 POC ABG pCO2 40.2 mmHg (32.0-48.0) 08/18/20 05:00 ABG pCO2 35.7 mm Hg 08/15/20 Unknown POC ABG pO2 95.3 mmHg (83-108) 08/18/20 05:00 ABG pO2 77.7 mm Hg (80.0-90.0) L 08/15/20 Unknown POC ABG HCO3 29.3 08/18/20 05:00 ABG HCO3 23.2 mmol/L (20.0-26.0) 08/15/20 Unknown ABG O2 Saturation 97.8 (0-100) 08/18/20 05:00 ABG O2 Content 12.3 (0.0-44) 08/15/20 Unknown POC ABG Base Excess 5.3 08/18/20 05:00 ABG Base Excess -0.8 mmol/L (-2.0-3.0) 08/15/20 Unknown ABG Hemoglobin 7.9 (12.0-17.5) L 08/18/20 05:00 ABG Oxyhemoglobin 96.7 (94-98) 08/18/20 05:00 ABG Carboxyhemoglobin 1.2 % (0.0-5.0) 08/15/20 Unknown ABG Methemoglobin 0.3 (0.0-1.5) 08/18/20 05:00 ABG Sodium 141.8 mmol/L (136.0-145.0) 08/18/20 05:00 ABG Potassium 3.5 mmol/L (3.40-4.50) 08/18/20 05:00 ABG Chloride 111.0 mmol/L (98-107) H 08/18/20 05:00 ABG Glucose 137 mg/dL (65-95) H 08/18/20 05:00 VBG pH 7.377 (7.320-7.420) 07/28/20 09:44 Oxyhemoglobin 94.9 % (95.0-99.0) L 08/15/20 Unknown Carboxyhemoglobin 0.8 (0.5-1.5) 08/18/20 05:00 FiO2 60 % 08/15/20 Unknown FiO2 % 60.0 08/18/20 05:00 Sodium 144 mmol/L (137-145) 08/18/20 06:46 Potassium 3.8 mmol/L (3.6-5.0) 08/18/20 06:46 Chloride 108.2 mmol/L (98-107) H 08/18/20 06:46 Carbon Dioxide 26 mmol/L (22-30) 08/18/20 06:46 Anion Gap 14 mmol/L 08/18/20 06:46 BUN 41 mg/dL (9-20) H 08/18/20 06:46 Creatinine 1.0 mg/dL (0.8-1.3) 08/18/20 06:46 Estimated GFR > 60 ml/min 08/18/20 06:46 BUN/Creatinine Ratio 41 % 08/18/20 06:46 Glucose 120 mg/dL (75-100) H 08/18/20 06:46 POC Glucose 151 mg/dL (70-105) H 08/18/20 11:21 Hemoglobin A1c 8.8 % (4-6) H 08/01/20 04:30 Lactic Acid 1.60 mmol/L (0.7-2.0) 07/30/20 05:45 Calcium 8.4 mg/dL (8.4-10.2) 08/18/20 06:46 Ionized Calcium 4.2 mg/dL (4.8-5.6) L 07/30/20 19:01 Phosphorus 2.90 mg/dL (2.5-4.5) D 08/04/20 03:00 Magnesium 2.20 mg/dL (1.7-2.3) 08/17/20 09:40 Total Bilirubin 0.30 mg/dL (0.1-1.2) 08/18/20 06:46 Direct Bilirubin < 0.2 mg/dL (0-0.2) 08/12/20 04:43 Indirect Bilirubin 0.0 mg/dL 08/12/20 04:43 AST 95 units/L (5-40) H 08/18/20 06:46 ALT 122 units/L (7-56) H 08/18/20 06:46 Alkaline Phosphatase 738 units/L (35-129) H 08/18/20 06:46 Ammonia 63.0 umol/L (25-60) H 07/28/20 08:48 Lactate Dehydrogenase 239 units/L (91-180) H 08/12/20 04:43 Total Creatine Kinase 486 units/L (55-170) H 07/28/20 08:48 Troponin T 0.115 ng/mL (0.00-0.029) H* 07/28/20 08:48 C-Reactive Protein 9.00 mg/dL (0.00-1.30) H 07/28/20 19:50 Total Protein 6.3 g/dL (6.3-8.2) 08/18/20 06:46 Albumin 1.8 g/dL (3.9-5) L 08/18/20 06:46 Albumin/Globulin Ratio 0.4 % 08/18/20 06:46 Triglycerides 184 mg/dL (2-149) H 08/04/20 03:00 Cholesterol 80 mg/dL (50-199) 07/28/20 08:48 LDL Cholesterol Direct 44 mg/dL (50-130) L 07/28/20 08:48 HDL Cholesterol 26 mg/dL (40-59) L 07/28/20 08:48 Cholesterol/HDL Ratio 3.07 % 07/28/20 08:48 Serotonin Release Assay See scanned result 08/01/20 23:40 Procalcitonin 177.82 ng/mL (<0.15) 07/28/20 19:50 TSH 2.450 mlU/mL (0.270-4.200) 07/28/20 08:48 Arterial Blood Glucose 137 mg/dL (65-95) H 08/18/20 05:00 Arterial Blood Ionized Calcium 4.5 mg/dL (4.6-5.3) L 08/18/20 05:00 Urine Color Linette (Yellow) 07/28/20 Unknown Urine Turbidity Cloudy (Clear) 07/28/20 Unknown Urine pH 5.0 (5.0-7.0) 07/28/20 Unknown Ur Specific [place] 1.018 (1.003-1.030) 07/28/20 Unknown Urine Protein 100 mg/dl mg/dL (Negative) 07/28/20 Unknown Urine Glucose (UA) Neg mg/dL (Negative) 07/28/20 Unknown Urine Ketones Neg mg/dL (Negative) 07/28/20 Unknown Urine Blood Lg (Negative) 07/28/20 Unknown Urine Nitrite Neg (Negative) 07/28/20 Unknown Urine Bilirubin Neg (Negative) 07/28/20 Unknown Urine Urobilinogen 2.0 mg/dL (<2.0) 07/28/20 Unknown Ur Leukocyte Esterase Lg (Negative) 07/28/20 Unknown Urine WBC (Auto) > 182.0 /HPF (0.0-6.0) H 07/28/20 Unknown Urine RBC (Auto) 30.0 /HPF (0.0-6.0) 07/28/20 Unknown U Epithel Cells (Auto) 2.0 /HPF (0-13.0) 07/28/20 Unknown Urine Bacteria (Auto) 1+ /HPF (Negative) 07/28/20 Unknown Ur Transition Epith Cell 4 /HPF 07/28/20 Unknown Hyaline Casts 5 /LPF 07/28/20 Unknown Urine Mucus Few /HPF 07/28/20 Unknown Fluid Type Pleural 08/16/20 15:35 Fluid Color Straw 08/16/20 15:35 Fluid Appearance Cloudy 08/16/20 15:35 Fluid WBC 425 /mm3 08/16/20 15:35 Fluid RBC 3000 /mm3 08/16/20 15:35 Fluid Seg Neutrophils 78.0 % 08/16/20 15:35 Fluid Lymphocytes 20.0 % 08/16/20 15:35 Fluid Monocytes 1.0 % 08/16/20 15:35 Fluid Eosinophils 1.0 % 08/16/20 15:35 Nasal Screen MRSA (PCR) Negative (Negative) 07/29/20 Unknown Salicylates < 0.3 mg/dL (2.8-20.0) L 07/28/20 09:44 Plasma/Serum Alcohol < 0.01 % (0-0.07) 07/28/20 09:44 Heparin-induced Plt Ab Negative (Negative) 08/01/20 23:40 UF Heparin High Dose 0 % Release 08/01/20 23:40 DEISY UFH Low Dose 0.1 0 % Release 08/01/20 23:40 DEISY UFH Low Dose 0.5 0 % Release 08/01/20 23:40 Coronavirus (PCR) Negative (Negative) 07/29/20 09:15 AFB Identification 08/06/20 11:55 Fungal Id Prelim Positive 08/06/20 11:55 Blood Type O POSITIVE 08/16/20 15:30 Antibody Screen Negative 08/16/20 15:30 Crossmatch See Detail 08/10/20 18:08 Ashley/IV: Voiding Method Indwelling Catheter Active Medications - Current Medications Current Medications: Generic Name Dose Route Start Last Admin Trade Name Freq PRN Reason Stop Dose Admin Acetaminophen 650 mg 07/28/20 14:27 08/08/20 21:50 Acetaminophen 325 Mg Tab PO 650 mg Q6H PRN Administration Pain, Mild (1-3) Albuterol 2.5 mg 07/28/20 14:27 08/05/20 14:27 Albuterol 2.5 Mg/3 Ml Nebu IH 2.5 mg Q3H PRN Administration Shortness Of Breath Amlodipine Besylate 10 mg 08/15/20 10:00 08/18/20 09:03 Amlodipine 10 Mg Tab PO 10 mg QDAY [place] Administration Lipase/Protease/Amylase 1 each 07/29/20 09:55 Lipase 10,500/Protease 25,000/Amylase 43,750 (Units) Dr Velasquez FEEDTUBE PRN PRN For Clogged Feeding Tube Ascorbic Acid 500 mg 08/01/20 22:00 08/18/20 09:03 Ascorbic Acid 500 Mg Tab PO 500 mg BID [place] Administration Bisacodyl 10 mg 08/16/20 14:28 Bisacodyl 10 Mg Rect Supp SD QDAY PRN Constipation Dextrose 50 ml 07/29/20 15:46 08/15/20 10:45 Dextrose 50% In Water (25gm) 50 Ml Syringe IV 50 ml Q30MIN PRN Administration Hypoglycemia Protocol Enoxaparin Sodium 40 mg 08/17/20 10:00 08/18/20 09:03 Enoxaparin 40 Mg/0.4 Ml Inj SUB-Q 40 mg QDAY@1000 [place] Administration Famotidine 20 mg 07/30/20 10:00 08/18/20 09:03 Famotidine 20 Mg Tab PO 20 mg BID [place] Administration Hydralazine HCl 10 mg 08/07/20 10:49 Hydralazine 20 Mg/1 Ml Inj IV Q4HR PRN Give if SBP>180 DBP>100 Hydralazine HCl 10 mg 08/18/20 14:00 Hydralazine 10 Mg Tab PO Q8HR [facility] Hydromorphone HCl 1 mg 08/07/20 12:28 08/12/20 18:19 Hydromorphone 1 Mg/1 Ml Inj IV 1 mg Q4H PRN Administration Pain , Severe (7-10) Hydrophilic Ointment 1 applic 07/28/20 09:30 Lip Therapy Vaseline TP Q2H PRN Dry Lips Micafungin Sodium 100 mg/ 100 mls @ 100 mls/hr 08/17/20 12:00 08/18/20 12:41 Sodium Chloride IV 08/31/20 12:59 100 mls/hr Q24H [place] Administration Protocol Insulin Human Lispro 0 unit 08/04/20 12:00 08/18/20 12:40 Insulin Lispro 100 Unit/Ml SUB-Q 3 unit Q6HR [facility] Administration Protocol Metoprolol Tartrate 50 mg 08/17/20 10:00 08/18/20 09:03 Metoprolol Tartrate 50 Mg Tab PO 50 mg BID [place] Administration Multi-Ingred Cream/Lotion/Oil/Oint 1 applic 07/28/20 09:30 Mineral Oil/Petrolatum, White Ophth Oint 3.5 Gm OU Q4H PRN Dry Eye(s) Scopolamine 1 each 08/07/20 13:00 08/16/20 09:15 Scopolamine Transdermal Patch 72 Hr TD 1 each Q3D [place] Administration Senna/Docusate Sodium 1 tab 07/28/20 22:00 08/18/20 09:04 Sennosides/Docusate Sodium 8.6/50 Mg Tab FEEDTUBE Not Given BID [place] Simple Syrup 15 ml 07/29/20 09:55 Simple Syrup 15 Ml FEEDTUBE PRN PRN Hypoglycemia Simple Syrup 30 ml 07/29/20 09:55 Simple Syrup 15 Ml FEEDTUBE PRN PRN Hypoglycemia Sodium Bicarbonate 325 mg 07/29/20 09:55 Sodium Bicarbonate 325 Mg Tab FEEDTUBE PRN PRN For Clogged Feeding Tube Sodium Chloride 10 ml 07/28/20 22:00 08/18/20 09:04 Sodium Chloride 0.9% 10 Ml Flush Syringe IV 10 ml BID [place] Administration Sodium Chloride 10 ml 07/28/20 14:27 Sodium Chloride 0.9% 10 Ml Flush Syringe IV PRN PRN LINE FLUSH Zinc Sulfate 220 mg 08/01/20 15:00 08/18/20 09:03 Zinc Sulfate 220 Mg Cap PO 220 mg BID [place] Administration Nutrition/Malnutrition Assess - Dietary Evaluation Nutrition/Malnutrition Findings: Nutrition Notes Start: 07/29/20 09:47 Freq: Status: Active Protocol: Document 08/17/20 11:01 RACHAEL (Rec: 08/17/20 11:05 [id number]) Nutrition Notes Initial or Follow up Reassessment Current Diagnosis Acute Kidney Injury, Respiratory Failure Other Pertinent Diagnosis Acute encephalopathy, Pneu, UTI, Quadriplegia Current Diet Vital AF 1.2 at 65 ml/hr Labs/Tests BG 205 Pertinent Medications Humalog Height 6 ft Weight 79.2 kg [place] Body Weight (kg) 80.90 BMI 23.6 Weight Status Appropriate Subjective/Other Information FU for TF tolerance. Observed TF running at goal rate and pt tolerating. Percent of energy/protein needs met: 98%/100% Burn Absent Trauma Absent Current % PO Negligible Minimum of two criteria No Fluid Accumulation Moderate to Severe (severe) #2 Nutrition Diagnosis Increased nutrient needs ( specify in comment below) Diagnosis Progress(for reassessment Continues documentation) #1 Nutrition Diagnosis Inadequate oral intake Diagnosis Progress(for reassessment Continues documentation) Is patient on ventilator? Yes Is Patient Ambulatory and/or Out of Bed No REE-([facility]-confined to bed) 1913.772 Calculation Used for Recommendations [facility] Additional Notes Pro needs 1.2-2g/k-163g/ day Fluid needs 1ml/kcal Nutrition Intervention Change Diet Order: Continue Nutrition Support: Continue Vital AF 1.2 at 65ml/ hr with 100 ml water flush q4h . Kcal 1,872 Protein (gm) 117 Fluid (mL) 1,265 Add Supplement/Snack (indicate name/kcal Reji BID /protein ) Provides kCal: 190 Provides Protein (gm) 5 Goal #1 TF tolerance Goal #2 TF to meet at least 80% energy and pro needs Anticipated Discharge Needs: Unable to determine at this time Follow-Up By: 08/22/20 Additional Comments FU for TF tolerance, BG, Reji administration
[2020-08-17] MEDS: MICAFUNGIN 100 MG in SODIUM CHLORIDE 0.9% 100 ML IV SCH (11:53)
--- NOTE | 2020-08-17 12:00 | Progress Note ---
Assessment and Plan - Patient Problems (1) Bradycardia Current Visit: Yes Status: Acute Plan to address problem: No further bradycardia. An echocardiogram this presentation showed well-preserved left ventricular systolic function with ejection fraction 50 to 55%. Will continue supportive cardiac management. Will follow intermittently. Subjective Date of service: 08/17/20 Principal diagnosis: Ac. encephalopathy; Ac. hypoxemic resp failure; Septic Shock; PNA; UTI; [place] Interval history: Patient is on mechanical ventilation via tracheostomy. Currently, stable sinus rhythm on telemetry monitoring. Objective Vital Signs Temp Pulse Pulse Resp BP Pulse Ox Pulse Ox 08/17/20 11:01 89 30 H 154/70 100 08/17/20 10:01 103 H 30 H 152/74 100 08/17/20 09:01 98 H 25 H 150/69 100 08/17/20 08:24 97 H 157/50 99 08/17/20 08:01 103 H 34 H 146/64 96 08/17/20 08:00 90 93 H 28 H 98 08/17/20 07:01 97 H 31 H 141/65 96 08/17/20 06:01 99 H 31 H 154/73 98 08/17/20 05:00 92 H 31 H 153/70 99 08/17/20 04:01 93 H 28 H 158/75 98 08/17/20 04:00 90 93 H 28 H 98 08/17/20 03:36 90 157/71 98 08/17/20 03:01 91 H 32 H 163/76 97 08/17/20 02:01 83 30 H 144/68 95 08/17/20 01:01 79 26 H 144/69 98 08/17/20 00:01 89 27 H 152/73 96 08/17/20 00:00 98.6 F 89 89 27 H 96 08/16/20 23:07 84 31 H 159/70 99 08/16/20 23:01 88 24 159/70 98 08/16/20 22:56 98 08/16/20 22:48 83 150/68 98 08/16/20 22:46 73 28 H 150/68 91 08/16/20 22:00 87 29 H 152/73 94 08/16/20 21:57 88 152/73 08/16/20 21:01 85 28 H 151/70 97 08/16/20 20:00 78 78 28 H 142/68 94 08/16/20 19:55 98.6 F 08/16/20 19:47 77 145/68 93 08/16/20 19:01 73 30 H 137/68 95 08/16/20 18:01 76 24 136/68 93 08/16/20 17:01 88 25 H 147/70 100 08/16/20 16:40 90 100 08/16/20 16:01 84 21 147/70 100 08/16/20 16:00 69 83 28 H 95 08/16/20 15:19 75 20 132/69 98 08/16/20 14:01 75 25 H 160/75 96 08/16/20 13:01 75 25 H 150/72 97 08/16/20 12:04 95 08/16/20 12:02 81 150/71 95 08/16/20 12:01 83 23 150/71 96 - Physical Examination General: Other (On the vent, via tracheostomy) HEENT: Positive: Normocephaly Neck: Positive: Other (tracheostomy in place) Cardiac: Positive: Reg Rate and Rhythm Neuro: Positive: Other (On the vent, via tracheostomy; History of quadriplegia) - Labs and Meds Cardiac Enzymes 08/17/20 Range/Units 09:40 AST 69 H (5-40) units/L CBC 08/17/20 Range/Units 09:40 WBC 6.0 (4.5-11.0) K/mm3 RBC 2.78 L (3.65-5.03) M/mm3 Hgb 7.9 L (11.8-15.2) gm/dl Hct 24.1 L (35.5-45.6) % Plt Count 238 (140-440) K/mm3 Comprehensive Metabolic Panel 08/17/20 Range/Units 09:40 Sodium 143 (137-145) mmol/L Potassium 4.0 (3.6-5.0) mmol/L Chloride 107.5 H (98-107) mmol/L Carbon Dioxide 26 (22-30) mmol/L BUN 42 H (9-20) mg/dL Creatinine 0.9 (0.8-1.3) mg/dL Glucose 205 H (75-100) mg/dL Calcium 8.4 (8.4-10.2) mg/dL AST 69 H (5-40) units/L ALT 93 H (7-56) units/L Alkaline Phosphatase 556 H (35-129) units/L Total Protein 6.2 L (6.3-8.2) g/dL Albumin 1.9 L (3.9-5) g/dL - Allied health notes Allied health notes reviewed: nursing
--- NOTE | 2020-08-17 15:18 | Progress Note ---
Assessment and Plan Acute possibly on chronic toxic metabolic encephalopathy Acute hypoxemic respiratory failure on MVS Severe sepsis with shock, presumably secondary to aspiration pneumonia Recent upper ext DVT (06/06) Aspiration pneumonia, bilateral Urinary tract infection History of quadriplegia Leukocytosis Anemia that is microcytic Coagulopathy. INR 2.17 at presentation Mild hypokalemia Acute kidney injury Metabolic lactic acidosis Non-ST elevation myocardial infarction Adult failure to thrive Moderate to severe protein calorie malnutrition - ABG reviewed and FiO2 dropped - Lovenox resumed (H&H holding) - wound care today per RN / WCN - follow thoracentesis / fluid studies - keep peep at 8 - LTAC evaluation ongoing - continue care as below otherwise; - prn Levophed for target MAP > 65 mmHg - continue to wean supplemental oxygen for target O2 sat's > 90% acutely - VAP bundle addressed - continue lung protective strategies - continue bronchodilators with routine trach care and pulmonary hygiene per RT - wean per pulmonary driven protocols otherwise - avoid nephrotoxins, renally dose all medications - continue to avoid benzodiazepine's, reduce the possibility of delirium - complete antiinfective's per ID rec's (Diflucan to end tomorrow) - prn analgesia per CPOT score - Maintenance of sleep-wake cycle, avoid delirium - continue enteral nutritional support at goal rate as tolerated - G.I. & VTE prophylaxis - PT/OT/ROM exercises - continue mobility protocols for pressure ulcer prophylaxis - Monitor hemodynamics closely - continue other care per attending / other consultants - discharge planning ongoing concurrently COVID SPECIFIC INTERVENTIONS: - COVID test result negative .... Re-evaluate in am & prn CONDITION: CRITICAL PROGNOSIS: GUARDED CODE STATUS: FULL CODE The high probability of a clinically significant, sudden or life-threatening deterioration of the [respiratory, cardiovascular & neurologic] system(s) required my full and direct attention, intervention and personal management. The aggregate critical care time was [32] minutes without overlap. Time includes spent on; [x] Data Review and interpretation [x] Patient assessment and monitoring of vital signs [x] Documentation [x] Medication orders and management Subjective Date of service: 08/17/20 Principal diagnosis: Ac. encephalopathy; Ac. hypoxemic resp failure; Septic Shock; PNA; UTI; JEFFERSON Interval history: Patient is seen today for: Acute encephalopathy; Acute hypoxemic respiratory failure; Septic Shock; Aspiration pneumonia; UTI; quadriplegia; JEFFERSON Seen and examined at bedside; 24hour events reviewed; nursing and respiratory care staff consulted; no adverse overnight events reported to me; resting in bed; remains on MVS; s/p thoracentesis and 800 ml's of non bloody fluid pulled; no complications; FiO2 at 60% with some room to wean and no SBT today Objective Vital Signs - 12hr 08/17/20 08/17/20 08/17/20 03:36 04:00 04:01 Pulse Rate 90 90 93 H Pulse Rate [ 93 H From Monitor] Respiratory 28 H 28 H Rate Blood Pressure 157/71 158/75 O2 Sat by Pulse 98 98 98 Oximetry 08/17/20 08/17/20 08/17/20 05:00 06:01 07:01 Pulse Rate 92 H 99 H 97 H Pulse Rate [ From Monitor] Respiratory 31 H 31 H 31 H Rate Blood Pressure 153/70 154/73 141/65 O2 Sat by Pulse 99 98 96 Oximetry 08/17/20 08/17/20 08/17/20 08:00 08:01 08:24 Pulse Rate 90 103 H 97 H Pulse Rate [ 93 H From Monitor] Respiratory 28 H 34 H Rate Blood Pressure 146/64 157/50 O2 Sat by Pulse 98 96 99 Oximetry 08/17/20 08/17/20 08/17/20 09:01 10:01 11:01 Pulse Rate 98 H 103 H 89 Pulse Rate [ From Monitor] Respiratory 25 H 30 H 30 H Rate Blood Pressure 150/69 152/74 154/70 O2 Sat by Pulse 100 100 100 Oximetry 08/17/20 08/17/20 08/17/20 12:00 12:01 13:00 Pulse Rate 82 95 H 92 H Pulse Rate [ 93 H From Monitor] Respiratory 28 H 27 H 21 Rate Blood Pressure 155/71 146/64 O2 Sat by Pulse 98 100 100 Oximetry 08/17/20 08/17/20 08/17/20 13:25 14:01 15:01 Pulse Rate 88 87 91 H Pulse Rate [ From Monitor] Respiratory 22 23 Rate Blood Pressure 131/61 145/63 129/59 O2 Sat by Pulse 100 100 100 Oximetry Constitutional: no acute distress, other ( chronically ill looking male with mildly increased respiratory effort at rest on MVS) Eyes: non-icteric ENT: oropharynx dry, other (trach) Neck: supple, no lymphadenopathy, no JVD Effort: mildly labored Ascultation: Bilateral: diminished breath sounds, rhonchi Percussion: Bilateral: not dull Cardiovascular: regular rate and rhythm, other (S1,S2) Gastrointestinal: normoactive bowel sounds, soft, non-tender, non-distended, other (PEG) Integumentary: rash, decubitus ulcer (sacral (POA)) Extremities: no cyanosis, pulses normal, edema (lower extremities and bilatral upper extremity) Neurologic: pupils equal and round, unable to assess, other (quadriplegic, biting on ETT) Psychiatric: other (delirious) CBC and BMP: 08/17/20 09:40 08/17/20 09:40 ABG, PT/INR, D-dimer: ABG ABG pH 7.473 (7.320-7.450) H 08/17/20 12:54 POC ABG pCO2 38.5 mmHg (32.0-48.0) 08/17/20 12:54 ABG pCO2 35.7 mm Hg 08/15/20 Unknown POC ABG pO2 81.2 mmHg (83-108) L 08/17/20 12:54 ABG pO2 77.7 mm Hg (80.0-90.0) L 08/15/20 Unknown POC ABG HCO3 27.6 08/17/20 12:54 ABG O2 Saturation 96.0 (0-100) 08/17/20 12:54 PT/INR, D-dimer PT 14.7 Sec. (12.2-14.9) 08/15/20 10:28 INR 1.09 (0.87-1.13) 08/15/20 10:28 Abnormal lab findings: Abnormal Labs 07/28/20 07/28/20 07/28/20 08:48 08:48 08:48 WBC 17.0 H RBC 2.77 L Hgb 8.2 L Hct 26.5 L MCV 96 H MCH MCHC 31 L RDW 16.2 H Plt Count Seg Neuts % (Manual) Lymphocytes % (Manual) Seg Neutrophils # Man Lymphocytes # (Manual) Haptoglobin PT 24.7 H INR 2.17 H ABG pH POC ABG pCO2 POC ABG pO2 ABG pO2 ABG O2 Saturation ABG Hemoglobin ABG Oxyhemoglobin ABG Sodium ABG Potassium ABG Chloride ABG Glucose Oxyhemoglobin Carboxyhemoglobin Sodium 135 L Potassium 3.5 L Chloride 97.6 L Carbon Dioxide BUN 44 H Creatinine 1.6 H Glucose 431 H POC Glucose Hemoglobin A1c Lactic Acid Calcium 7.9 L Ionized Calcium Phosphorus AST 81 H ALT Alkaline Phosphatase Ammonia Lactate Dehydrogenase Total Creatine Kinase 486 H Troponin T 0.115 H* C-Reactive Protein Total Protein 5.6 L Albumin 2.6 L Triglycerides LDL Cholesterol Direct 44 L HDL Cholesterol 26 L Arterial Blood Glucose Arterial Blood Ionized Calcium Urine WBC (Auto) Salicylates Crossmatch 07/28/20 07/28/20 07/28/20 08:48 09:44 09:44 WBC RBC Hgb Hct MCV MCH MCHC RDW Plt Count Seg Neuts % (Manual) Lymphocytes % (Manual) Seg Neutrophils # Man Lymphocytes # (Manual) Haptoglobin PT INR ABG pH POC ABG pCO2 POC ABG pO2 ABG pO2 ABG O2 Saturation ABG Hemoglobin ABG Oxyhemoglobin ABG Sodium ABG Potassium ABG Chloride ABG Glucose Oxyhemoglobin Carboxyhemoglobin Sodium Potassium Chloride Carbon Dioxide BUN Creatinine Glucose POC Glucose Hemoglobin A1c Lactic Acid 3.80 H* Calcium Ionized Calcium Phosphorus AST ALT Alkaline Phosphatase Ammonia 63.0 H Lactate Dehydrogenase Total Creatine Kinase Troponin T C-Reactive Protein Total Protein Albumin Triglycerides LDL Cholesterol Direct HDL Cholesterol Arterial Blood Glucose Arterial Blood Ionized Calcium Urine WBC (Auto) Salicylates < 0.3 L Crossmatch 07/28/20 07/28/20 07/28/20 10:18 14:38 15:58 WBC RBC Hgb Hct MCV MCH MCHC RDW Plt Count Seg Neuts % (Manual) Lymphocytes % (Manual) Seg Neutrophils # Man Lymphocytes # (Manual) Haptoglobin PT INR ABG pH POC ABG pCO2 POC ABG pO2 ABG pO2 78.0 L ABG O2 Saturation ABG Hemoglobin 7.6 L ABG Oxyhemoglobin ABG Sodium ABG Potassium ABG Chloride ABG Glucose Oxyhemoglobin Carboxyhemoglobin Sodium Potassium Chloride Carbon Dioxide BUN Creatinine Glucose POC Glucose 265 H Hemoglobin A1c Lactic Acid 3.90 H* Calcium Ionized Calcium Phosphorus AST ALT Alkaline Phosphatase Ammonia Lactate Dehydrogenase Total Creatine Kinase Troponin T C-Reactive Protein Total Protein Albumin Triglycerides LDL Cholesterol Direct HDL Cholesterol Arterial Blood Glucose Arterial Blood Ionized Calcium Urine WBC (Auto) Salicylates Crossmatch 07/28/20 07/28/20 07/28/20 19:50 21:00 Unknown WBC RBC Hgb Hct MCV MCH MCHC RDW Plt Count Seg Neuts % (Manual) Lymphocytes % (Manual) Seg Neutrophils # Man Lymphocytes # (Manual) Haptoglobin PT INR ABG pH 7.107 L POC ABG pCO2 65.6 H POC ABG pO2 ABG pO2 ABG O2 Saturation ABG Hemoglobin 9.9 L ABG Oxyhemoglobin ABG Sodium ABG Potassium ABG Chloride 108.0 H ABG Glucose 299 H Oxyhemoglobin Carboxyhemoglobin 0.2 L Sodium Potassium Chloride Carbon Dioxide BUN Creatinine Glucose POC Glucose Hemoglobin A1c Lactic Acid Calcium Ionized Calcium Phosphorus 5.40 H AST ALT Alkaline Phosphatase Ammonia Lactate Dehydrogenase Total Creatine Kinase Troponin T C-Reactive Protein 9.00 H Total Protein Albumin Triglycerides LDL Cholesterol Direct HDL Cholesterol Arterial Blood Glucose 299 H Arterial Blood Ionized Calcium 4.2 L Urine WBC (Auto) > 182.0 H Salicylates Crossmatch 07/29/20 07/29/20 07/29/20 04:02 13:00 17:13 WBC RBC Hgb Hct MCV MCH MCHC RDW Plt Count Seg Neuts % (Manual) Lymphocytes % (Manual) Seg Neutrophils # Man Lymphocytes # (Manual) Haptoglobin PT INR ABG pH 7.212 L POC ABG pCO2 52.5 H POC ABG pO2 128.3 H ABG pO2 ABG O2 Saturation ABG Hemoglobin 10.5 L ABG Oxyhemoglobin ABG Sodium ABG Potassium ABG Chloride 108.0 H ABG Glucose 239 H Oxyhemoglobin Carboxyhemoglobin Sodium Potassium Chloride Carbon Dioxide BUN Creatinine Glucose POC Glucose 212 H 257 H Hemoglobin A1c Lactic Acid Calcium Ionized Calcium Phosphorus AST ALT Alkaline Phosphatase Ammonia Lactate Dehydrogenase Total Creatine Kinase Troponin T C-Reactive Protein Total Protein Albumin Triglycerides LDL Cholesterol Direct HDL Cholesterol Arterial Blood Glucose 239 H Arterial Blood Ionized Calcium 4.0 L Urine WBC (Auto) Salicylates Crossmatch 07/29/20 07/29/20 07/29/20 21:00 23:20 Unknown WBC RBC 3.05 L Hgb 9.7 L Hct 28.6 L MCV MCH MCHC RDW 16.1 H Plt Count Seg Neuts % (Manual) 75.0 H Lymphocytes % (Manual) 2.0 L Seg Neutrophils # Man Lymphocytes # (Manual) 0.2 L Haptoglobin PT INR ABG pH 7.286 L POC ABG pCO2 POC ABG pO2 ABG pO2 ABG O2 Saturation ABG Hemoglobin 9.1 L ABG Oxyhemoglobin ABG Sodium ABG Potassium ABG Chloride 109.0 H ABG Glucose 285 H Oxyhemoglobin Carboxyhemoglobin Sodium Potassium Chloride Carbon Dioxide BUN Creatinine Glucose POC Glucose 233 H Hemoglobin A1c Lactic Acid Calcium Ionized Calcium Phosphorus AST ALT Alkaline Phosphatase Ammonia Lactate Dehydrogenase Total Creatine Kinase Troponin T C-Reactive Protein Total Protein Albumin Triglycerides LDL Cholesterol Direct HDL Cholesterol Arterial Blood Glucose 285 H Arterial Blood Ionized Calcium 3.9 L Urine WBC (Auto) Salicylates Crossmatch 07/29/20 07/29/20 07/30/20 Unknown Unknown 05:30 WBC RBC Hgb Hct MCV MCH MCHC RDW Plt Count Seg Neuts % (Manual) Lymphocytes % (Manual) Seg Neutrophils # Man Lymphocytes # (Manual) Haptoglobin PT INR ABG pH POC ABG pCO2 POC ABG pO2 ABG pO2 ABG O2 Saturation ABG Hemoglobin ABG Oxyhemoglobin ABG Sodium ABG Potassium ABG Chloride ABG Glucose Oxyhemoglobin Carboxyhemoglobin Sodium Potassium Chloride 108.4 H Carbon Dioxide 21 L BUN 41 H Creatinine Glucose 217 H POC Glucose 245 H Hemoglobin A1c Lactic Acid 2.70 H* Calcium 6.5 L D Ionized Calcium Phosphorus AST 104 H ALT 74 H Alkaline Phosphatase Ammonia Lactate Dehydrogenase Total Creatine Kinase Troponin T C-Reactive Protein Total Protein 5.1 L Albumin 2.4 L Triglycerides LDL Cholesterol Direct HDL Cholesterol Arterial Blood Glucose Arterial Blood Ionized Calcium Urine WBC (Auto) Salicylates Crossmatch 07/30/20 07/30/20 07/30/20 05:45 05:45 12:12 WBC RBC 2.50 L Hgb 7.8 L Hct 23.3 L MCV MCH MCHC RDW 16.4 H Plt Count Seg Neuts % (Manual) Lymphocytes % (Manual) Seg Neutrophils # Man Lymphocytes # (Manual) Haptoglobin PT INR ABG pH POC ABG pCO2 POC ABG pO2 ABG pO2 ABG O2 Saturation ABG Hemoglobin ABG Oxyhemoglobin ABG Sodium ABG Potassium ABG Chloride ABG Glucose Oxyhemoglobin Carboxyhemoglobin Sodium Potassium Chloride 108.4 H Carbon Dioxide 21 L BUN 44 H Creatinine 1.4 H Glucose 279 H POC Glucose 243 H Hemoglobin A1c Lactic Acid Calcium 6.7 L Ionized Calcium Phosphorus AST 51 H ALT Alkaline Phosphatase Ammonia Lactate Dehydrogenase Total Creatine Kinase Troponin T C-Reactive Protein Total Protein 5.5 L Albumin 2.3 L Triglycerides LDL Cholesterol Direct HDL Cholesterol Arterial Blood Glucose Arterial Blood Ionized Calcium Urine WBC (Auto) Salicylates Crossmatch 07/30/20 07/30/20 07/30/20 15:50 17:20 19:01 WBC RBC Hgb Hct MCV MCH MCHC RDW Plt Count Seg Neuts % (Manual) Lymphocytes % (Manual) Seg Neutrophils # Man Lymphocytes # (Manual) Haptoglobin PT INR ABG pH POC ABG pCO2 POC ABG pO2 147.2 H ABG pO2 ABG O2 Saturation ABG Hemoglobin 7.2 L ABG Oxyhemoglobin ABG Sodium ABG Potassium 3.3 L ABG Chloride 115.0 H ABG Glucose 269 H Oxyhemoglobin Carboxyhemoglobin 1.6 H Sodium Potassium Chloride Carbon Dioxide BUN Creatinine Glucose POC Glucose 260 H Hemoglobin A1c Lactic Acid Calcium Ionized Calcium 4.2 L Phosphorus AST ALT Alkaline Phosphatase Ammonia Lactate Dehydrogenase Total Creatine Kinase Troponin T C-Reactive Protein Total Protein Albumin Triglycerides LDL Cholesterol Direct HDL Cholesterol Arterial Blood Glucose 269 H Arterial Blood Ionized Calcium 3.5 L Urine WBC (Auto) Salicylates Crossmatch 07/30/20 07/31/20 07/31/20 23:16 04:04 04:47 WBC RBC Hgb Hct MCV MCH MCHC RDW Plt Count Seg Neuts % (Manual) Lymphocytes % (Manual) Seg Neutrophils # Man Lymphocytes # (Manual) Haptoglobin PT INR ABG pH POC ABG pCO2 POC ABG pO2 ABG pO2 ABG O2 Saturation ABG Hemoglobin 7.6 L ABG Oxyhemoglobin ABG Sodium ABG Potassium 3.3 L ABG Chloride 113.0 H ABG Glucose 348 H Oxyhemoglobin Carboxyhemoglobin 0.4 L Sodium Potassium Chloride Carbon Dioxide BUN Creatinine Glucose POC Glucose 298 H 297 H Hemoglobin A1c Lactic Acid Calcium Ionized Calcium Phosphorus AST ALT Alkaline Phosphatase Ammonia Lactate Dehydrogenase Total Creatine Kinase Troponin T C-Reactive Protein Total Protein Albumin Triglycerides LDL Cholesterol Direct HDL Cholesterol Arterial Blood Glucose 348 H Arterial Blood Ionized Calcium 4.1 L Urine WBC (Auto) Salicylates Crossmatch 07/31/20 07/31/20 07/31/20 07:26 07:26 11:54 WBC RBC 2.29 L Hgb 7.2 L Hct 21.5 L MCV MCH MCHC RDW 16.7 H Plt Count Seg Neuts % (Manual) Lymphocytes % (Manual) Seg Neutrophils # Man Lymphocytes # (Manual) Haptoglobin PT INR ABG pH POC ABG pCO2 POC ABG pO2 ABG pO2 ABG O2 Saturation ABG Hemoglobin ABG Oxyhemoglobin ABG Sodium ABG Potassium ABG Chloride ABG Glucose Oxyhemoglobin Carboxyhemoglobin Sodium Potassium 3.4 L Chloride 109.4 H Carbon Dioxide BUN 45 H Creatinine 1.4 H Glucose 304 H POC Glucose 302 H Hemoglobin A1c Lactic Acid Calcium 6.9 L Ionized Calcium Phosphorus AST ALT Alkaline Phosphatase Ammonia Lactate Dehydrogenase Total Creatine Kinase Troponin T C-Reactive Protein Total Protein Albumin Triglycerides LDL Cholesterol Direct HDL Cholesterol Arterial Blood Glucose Arterial Blood Ionized Calcium Urine WBC (Auto) Salicylates Crossmatch 07/31/20 08/01/20 08/01/20 21:27 03:09 04:30 WBC RBC 2.29 L Hgb 7.0 L Hct 20.7 L MCV MCH MCHC RDW 16.2 H Plt Count 125 L Seg Neuts % (Manual) Lymphocytes % (Manual) Seg Neutrophils # Man Lymphocytes # (Manual) Haptoglobin PT INR ABG pH POC ABG pCO2 POC ABG pO2 ABG pO2 ABG O2 Saturation ABG Hemoglobin 7.4 L ABG Oxyhemoglobin ABG Sodium 146.9 H ABG Potassium 3.2 L ABG Chloride 116.0 H ABG Glucose 113 H Oxyhemoglobin Carboxyhemoglobin Sodium Potassium Chloride Carbon Dioxide BUN Creatinine Glucose POC Glucose 138 H Hemoglobin A1c Lactic Acid Calcium Ionized Calcium Phosphorus AST ALT Alkaline Phosphatase Ammonia Lactate Dehydrogenase Total Creatine Kinase Troponin T C-Reactive Protein Total Protein Albumin Triglycerides LDL Cholesterol Direct HDL Cholesterol Arterial Blood Glucose 113 H Arterial Blood Ionized Calcium 4.5 L Urine WBC (Auto) Salicylates Crossmatch 08/01/20 08/01/20 08/01/20 04:30 04:30 08:40 WBC RBC Hgb Hct MCV MCH MCHC RDW Plt Count Seg Neuts % (Manual) Lymphocytes % (Manual) Seg Neutrophils # Man Lymphocytes # (Manual) Haptoglobin PT INR ABG pH POC ABG pCO2 POC ABG pO2 ABG pO2 ABG O2 Saturation ABG Hemoglobin ABG Oxyhemoglobin ABG Sodium ABG Potassium ABG Chloride ABG Glucose Oxyhemoglobin Carboxyhemoglobin Sodium 148 H Potassium 3.4 L Chloride 114.3 H Carbon Dioxide BUN 43 H Creatinine Glucose 109 H POC Glucose Hemoglobin A1c 8.8 H Lactic Acid Calcium 8.1 L D Ionized Calcium Phosphorus AST ALT Alkaline Phosphatase Ammonia Lactate Dehydrogenase Total Creatine Kinase Troponin T C-Reactive Protein Total Protein Albumin Triglycerides LDL Cholesterol Direct HDL Cholesterol Arterial Blood Glucose Arterial Blood Ionized Calcium Urine WBC (Auto) Salicylates Crossmatch See Detail 08/01/20 08/01/20 08/01/20 08:40 17:03 23:35 WBC RBC Hgb Hct MCV MCH MCHC RDW Plt Count Seg Neuts % (Manual) Lymphocytes % (Manual) Seg Neutrophils # Man Lymphocytes # (Manual) Haptoglobin PT INR ABG pH POC ABG pCO2 POC ABG pO2 ABG pO2 ABG O2 Saturation ABG Hemoglobin ABG Oxyhemoglobin ABG Sodium ABG Potassium ABG Chloride ABG Glucose Oxyhemoglobin Carboxyhemoglobin Sodium Potassium Chloride Carbon Dioxide BUN Creatinine Glucose POC Glucose 129 H 172 H Hemoglobin A1c Lactic Acid Calcium Ionized Calcium Phosphorus 1.70 L AST ALT Alkaline Phosphatase Ammonia Lactate Dehydrogenase Total Creatine Kinase Troponin T C-Reactive Protein Total Protein Albumin Triglycerides LDL Cholesterol Direct HDL Cholesterol Arterial Blood Glucose Arterial Blood Ionized Calcium Urine WBC (Auto) Salicylates Crossmatch 08/02/20 08/02/20 08/02/20 03:50 05:46 10:54 WBC RBC Hgb Hct MCV MCH MCHC RDW Plt Count Seg Neuts % (Manual) Lymphocytes % (Manual) Seg Neutrophils # Man Lymphocytes # (Manual) Haptoglobin PT INR ABG pH 7.333 L POC ABG pCO2 POC ABG pO2 ABG pO2 91.5 H ABG O2 Saturation ABG Hemoglobin 7.9 L ABG Oxyhemoglobin ABG Sodium ABG Potassium ABG Chloride ABG Glucose Oxyhemoglobin Carboxyhemoglobin Sodium Potassium Chloride Carbon Dioxide BUN Creatinine Glucose POC Glucose 161 H 228 H Hemoglobin A1c Lactic Acid Calcium Ionized Calcium Phosphorus AST ALT Alkaline Phosphatase Ammonia Lactate Dehydrogenase Total Creatine Kinase Troponin T C-Reactive Protein Total Protein Albumin Triglycerides LDL Cholesterol Direct HDL Cholesterol Arterial Blood Glucose Arterial Blood Ionized Calcium Urine WBC (Auto) Salicylates Crossmatch 08/02/20 08/02/20 08/02/20 17:20 23:13 Unknown WBC RBC 2.66 L Hgb 8.1 L Hct 23.9 L MCV MCH MCHC RDW 16.8 H Plt Count 110 L Seg Neuts % (Manual) Lymphocytes % (Manual) Seg Neutrophils # Man Lymphocytes # (Manual) Haptoglobin PT INR ABG pH POC ABG pCO2 POC ABG pO2 ABG pO2 ABG O2 Saturation ABG Hemoglobin ABG Oxyhemoglobin ABG Sodium ABG Potassium ABG Chloride ABG Glucose Oxyhemoglobin Carboxyhemoglobin Sodium Potassium Chloride Carbon Dioxide BUN Creatinine Glucose POC Glucose 214 H 132 H Hemoglobin A1c Lactic Acid Calcium Ionized Calcium Phosphorus AST ALT Alkaline Phosphatase Ammonia Lactate Dehydrogenase Total Creatine Kinase Troponin T C-Reactive Protein Total Protein Albumin Triglycerides LDL Cholesterol Direct HDL Cholesterol Arterial Blood Glucose Arterial Blood Ionized Calcium Urine WBC (Auto) Salicylates Crossmatch 08/02/20 08/02/20 08/03/20 Unknown Unknown 02:59 WBC RBC Hgb Hct MCV MCH MCHC RDW Plt Count Seg Neuts % (Manual) Lymphocytes % (Manual) Seg Neutrophils # Man Lymphocytes # (Manual) Haptoglobin PT INR ABG pH POC ABG pCO2 POC ABG pO2 ABG pO2 ABG O2 Saturation ABG Hemoglobin 8.1 L ABG Oxyhemoglobin ABG Sodium ABG Potassium ABG Chloride 113.0 H ABG Glucose 143 H Oxyhemoglobin Carboxyhemoglobin Sodium 150 H Potassium 3.5 L Chloride 115.9 H Carbon Dioxide BUN 42 H Creatinine Glucose 188 H POC Glucose Hemoglobin A1c Lactic Acid Calcium 7.8 L Ionized Calcium Phosphorus 2.30 L D AST ALT Alkaline Phosphatase Ammonia Lactate Dehydrogenase Total Creatine Kinase Troponin T C-Reactive Protein Total Protein Albumin Triglycerides LDL Cholesterol Direct HDL Cholesterol Arterial Blood Glucose 143 H Arterial Blood Ionized Calcium Urine WBC (Auto) Salicylates Crossmatch 08/03/20 08/03/20 08/03/20 04:16 04:16 05:12 WBC RBC 2.62 L Hgb 8.1 L Hct 24.1 L MCV MCH MCHC RDW 17.4 H Plt Count 118 L Seg Neuts % (Manual) Lymphocytes % (Manual) Seg Neutrophils # Man Lymphocytes # (Manual) Haptoglobin PT INR ABG pH POC ABG pCO2 POC ABG pO2 ABG pO2 ABG O2 Saturation ABG Hemoglobin ABG Oxyhemoglobin ABG Sodium ABG Potassium ABG Chloride ABG Glucose Oxyhemoglobin Carboxyhemoglobin Sodium 148 H Potassium Chloride 114.5 H Carbon Dioxide BUN 47 H Creatinine Glucose 158 H POC Glucose 164 H Hemoglobin A1c Lactic Acid Calcium 8.1 L Ionized Calcium Phosphorus 2.30 L AST ALT Alkaline Phosphatase Ammonia Lactate Dehydrogenase Total Creatine Kinase Troponin T C-Reactive Protein Total Protein Albumin Triglycerides LDL Cholesterol Direct HDL Cholesterol Arterial Blood Glucose Arterial Blood Ionized Calcium Urine WBC (Auto) Salicylates Crossmatch 08/03/20 08/03/20 08/03/20 11:26 17:33 23:47 WBC RBC Hgb Hct MCV MCH MCHC RDW Plt Count Seg Neuts % (Manual) Lymphocytes % (Manual) Seg Neutrophils # Man Lymphocytes # (Manual) Haptoglobin PT INR ABG pH POC ABG pCO2 POC ABG pO2 ABG pO2 ABG O2 Saturation ABG Hemoglobin ABG Oxyhemoglobin ABG Sodium ABG Potassium ABG Chloride ABG Glucose Oxyhemoglobin Carboxyhemoglobin Sodium Potassium Chloride Carbon Dioxide BUN Creatinine Glucose POC Glucose 190 H 235 H 194 H Hemoglobin A1c Lactic Acid Calcium Ionized Calcium Phosphorus AST ALT Alkaline Phosphatase Ammonia Lactate Dehydrogenase Total Creatine Kinase Troponin T C-Reactive Protein Total Protein Albumin Triglycerides LDL Cholesterol Direct HDL Cholesterol Arterial Blood Glucose Arterial Blood Ionized Calcium Urine WBC (Auto) Salicylates Crossmatch 08/04/20 08/04/20 08/04/20 03:00 03:00 04:14 WBC RBC Hgb Hct MCV MCH MCHC RDW Plt Count Seg Neuts % (Manual) Lymphocytes % (Manual) Seg Neutrophils # Man Lymphocytes # (Manual) Haptoglobin PT INR ABG pH POC ABG pCO2 POC ABG pO2 79.5 L ABG pO2 ABG O2 Saturation ABG Hemoglobin 9.9 L ABG Oxyhemoglobin ABG Sodium ABG Potassium ABG Chloride 113.0 H ABG Glucose 227 H Oxyhemoglobin Carboxyhemoglobin 0.3 L Sodium Potassium Chloride 111.4 H Carbon Dioxide BUN 51 H Creatinine Glucose 218 H POC Glucose Hemoglobin A1c Lactic Acid Calcium Ionized Calcium Phosphorus AST ALT Alkaline Phosphatase Ammonia Lactate Dehydrogenase Total Creatine Kinase Troponin T C-Reactive Protein Total Protein Albumin Triglycerides 184 H LDL Cholesterol Direct HDL Cholesterol Arterial Blood Glucose 227 H Arterial Blood Ionized Calcium Urine WBC (Auto) Salicylates Crossmatch 08/04/20 08/04/20 08/04/20 05:17 11:52 11:53 WBC RBC Hgb Hct MCV MCH MCHC RDW Plt Count Seg Neuts % (Manual) Lymphocytes % (Manual) Seg Neutrophils # Man Lymphocytes # (Manual) Haptoglobin PT INR ABG pH POC ABG pCO2 POC ABG pO2 ABG pO2 ABG O2 Saturation ABG Hemoglobin ABG Oxyhemoglobin ABG Sodium ABG Potassium ABG Chloride ABG Glucose Oxyhemoglobin Carboxyhemoglobin Sodium Potassium Chloride Carbon Dioxide BUN Creatinine Glucose POC Glucose 224 H 253 H 237 H Hemoglobin A1c Lactic Acid Calcium Ionized Calcium Phosphorus AST ALT Alkaline Phosphatase Ammonia Lactate Dehydrogenase Total Creatine Kinase Troponin T C-Reactive Protein Total Protein Albumin Triglycerides LDL Cholesterol Direct HDL Cholesterol Arterial Blood Glucose Arterial Blood Ionized Calcium Urine WBC (Auto) Salicylates Crossmatch 06/08/04/20 08/04/20 15:35 16:25 17:45 WBC 21.5 H RBC 2.10 L Hgb 7.3 L Hct 22.0 L MCV MCH 33 H MCHC 37 H RDW 17.2 H Plt Count 133 L Seg Neuts % (Manual) Lymphocytes % (Manual) Seg Neutrophils # Man Lymphocytes # (Manual) Haptoglobin PT INR ABG pH POC ABG pCO2 POC ABG pO2 ABG pO2 ABG O2 Saturation ABG Hemoglobin ABG Oxyhemoglobin ABG Sodium ABG Potassium ABG Chloride ABG Glucose Oxyhemoglobin Carboxyhemoglobin Sodium Potassium Chloride Carbon Dioxide BUN Creatinine Glucose POC Glucose 230 H 218 H Hemoglobin A1c Lactic Acid Calcium Ionized Calcium Phosphorus AST ALT Alkaline Phosphatase Ammonia Lactate Dehydrogenase Total Creatine Kinase Troponin T C-Reactive Protein Total Protein Albumin Triglycerides LDL Cholesterol Direct HDL Cholesterol Arterial Blood Glucose Arterial Blood Ionized Calcium Urine WBC (Auto) Salicylates Crossmatch 08/04/20 08/05/20 08/05/20 23:11 03:28 05:25 WBC RBC Hgb Hct MCV MCH MCHC RDW Plt Count Seg Neuts % (Manual) Lymphocytes % (Manual) Seg Neutrophils # Man Lymphocytes # (Manual) Haptoglobin PT INR ABG pH POC ABG pCO2 POC ABG pO2 82.1 L ABG pO2 ABG O2 Saturation ABG Hemoglobin 8.6 L ABG Oxyhemoglobin 93.7 L ABG Sodium ABG Potassium ABG Chloride 113.0 H ABG Glucose 205 H Oxyhemoglobin Carboxyhemoglobin Sodium Potassium Chloride Carbon Dioxide BUN Creatinine Glucose POC Glucose 198 H 213 H Hemoglobin A1c Lactic Acid Calcium Ionized Calcium Phosphorus AST ALT Alkaline Phosphatase Ammonia Lactate Dehydrogenase Total Creatine Kinase Troponin T C-Reactive Protein Total Protein Albumin Triglycerides LDL Cholesterol Direct HDL Cholesterol Arterial Blood Glucose 205 H Arterial Blood Ionized Calcium Urine WBC (Auto) Salicylates Crossmatch 08/05/20 08/05/20 08/05/20 08:48 08:48 10:55 WBC 14.3 H RBC 2.76 L Hgb 8.1 L Hct 24.8 L MCV MCH MCHC RDW 17.4 H Plt Count 138 L Seg Neuts % (Manual) 97.0 H Lymphocytes % (Manual) 1.0 L Seg Neutrophils # Man 13.9 H Lymphocytes # (Manual) 0.1 L Haptoglobin PT INR ABG pH POC ABG pCO2 POC ABG pO2 158.7 H ABG pO2 ABG O2 Saturation ABG Hemoglobin 7.8 L ABG Oxyhemoglobin ABG Sodium ABG Potassium ABG Chloride 114.0 H ABG Glucose 242 H Oxyhemoglobin Carboxyhemoglobin Sodium 146 H Potassium Chloride 110.1 H Carbon Dioxide BUN 56 H Creatinine Glucose 219 H POC Glucose Hemoglobin A1c Lactic Acid Calcium Ionized Calcium Phosphorus AST ALT Alkaline Phosphatase 192 H Ammonia Lactate Dehydrogenase Total Creatine Kinase Troponin T C-Reactive Protein Total Protein 5.8 L Albumin 2.0 L Triglycerides LDL Cholesterol Direct HDL Cholesterol Arterial Blood Glucose 242 H Arterial Blood Ionized Calcium Urine WBC (Auto) Salicylates Crossmatch 08/05/20 08/05/20 08/05/20 11:12 11:30 17:08 WBC RBC Hgb Hct MCV MCH MCHC RDW Plt Count Seg Neuts % (Manual) Lymphocytes % (Manual) Seg Neutrophils # Man Lymphocytes # (Manual) Haptoglobin PT INR ABG pH POC ABG pCO2 POC ABG pO2 147.5 H ABG pO2 ABG O2 Saturation ABG Hemoglobin 7.5 L ABG Oxyhemoglobin 98.1 H ABG Sodium ABG Potassium ABG Chloride 113.0 H ABG Glucose 248 H Oxyhemoglobin Carboxyhemoglobin Sodium Potassium Chloride Carbon Dioxide BUN Creatinine Glucose POC Glucose 238 H 239 H Hemoglobin A1c Lactic Acid Calcium Ionized Calcium Phosphorus AST ALT Alkaline Phosphatase Ammonia Lactate Dehydrogenase Total Creatine Kinase Troponin T C-Reactive Protein Total Protein Albumin Triglycerides LDL Cholesterol Direct HDL Cholesterol Arterial Blood Glucose 248 H Arterial Blood Ionized Calcium Urine WBC (Auto) Salicylates Crossmatch 08/05/20 08/05/20 08/06/20 23:17 Unknown 05:12 WBC RBC Hgb Hct MCV MCH MCHC RDW Plt Count Seg Neuts % (Manual) Lymphocytes % (Manual) Seg Neutrophils # Man Lymphocytes # (Manual) Haptoglobin PT INR ABG pH POC ABG pCO2 POC ABG pO2 ABG pO2 ABG O2 Saturation ABG Hemoglobin ABG Oxyhemoglobin ABG Sodium ABG Potassium ABG Chloride ABG Glucose Oxyhemoglobin Carboxyhemoglobin Sodium Potassium Chloride 109.2 H Carbon Dioxide BUN 51 H Creatinine Glucose 229 H POC Glucose 200 H 145 H Hemoglobin A1c Lactic Acid Calcium Ionized Calcium Phosphorus AST ALT Alkaline Phosphatase Ammonia Lactate Dehydrogenase Total Creatine Kinase Troponin T C-Reactive Protein Total Protein Albumin Triglycerides LDL Cholesterol Direct HDL Cholesterol Arterial Blood Glucose Arterial Blood Ionized Calcium Urine WBC (Auto) Salicylates Crossmatch 08/06/20 08/06/20 08/06/20 05:21 10:00 11:28 WBC RBC Hgb Hct MCV MCH MCHC RDW Plt Count Seg Neuts % (Manual) Lymphocytes % (Manual) Seg Neutrophils # Man Lymphocytes # (Manual) Haptoglobin PT INR ABG pH 7.301 L 7.308 L POC ABG pCO2 49.5 H 49.1 H POC ABG pO2 178.4 H ABG pO2 ABG O2 Saturation ABG Hemoglobin 7.5 L 7.1 L ABG Oxyhemoglobin 98.8 H ABG Sodium ABG Potassium ABG Chloride 112.0 H 112.0 H ABG Glucose 149 H 162 H Oxyhemoglobin Carboxyhemoglobin Sodium Potassium Chloride Carbon Dioxide BUN Creatinine Glucose POC Glucose 158 H Hemoglobin A1c Lactic Acid Calcium Ionized Calcium Phosphorus AST ALT Alkaline Phosphatase Ammonia Lactate Dehydrogenase Total Creatine Kinase Troponin T C-Reactive Protein Total Protein Albumin Triglycerides LDL Cholesterol Direct HDL Cholesterol Arterial Blood Glucose 149 H 162 H Arterial Blood Ionized Calcium Urine WBC (Auto) Salicylates Crossmatch 08/06/20 08/06/20 08/06/20 17:42 23:56 Unknown WBC 13.0 H RBC 2.38 L Hgb 7.1 L Hct 21.5 L MCV MCH MCHC RDW 17.6 H Plt Count Seg Neuts % (Manual) Lymphocytes % (Manual) Seg Neutrophils # Man Lymphocytes # (Manual) Haptoglobin PT INR ABG pH POC ABG pCO2 POC ABG pO2 ABG pO2 ABG O2 Saturation ABG Hemoglobin ABG Oxyhemoglobin ABG Sodium ABG Potassium ABG Chloride ABG Glucose Oxyhemoglobin Carboxyhemoglobin Sodium Potassium Chloride Carbon Dioxide BUN Creatinine Glucose POC Glucose 179 H 259 H Hemoglobin A1c Lactic Acid Calcium Ionized Calcium Phosphorus AST ALT Alkaline Phosphatase Ammonia Lactate Dehydrogenase Total Creatine Kinase Troponin T C-Reactive Protein Total Protein Albumin Triglycerides LDL Cholesterol Direct HDL Cholesterol Arterial Blood Glucose Arterial Blood Ionized Calcium Urine WBC (Auto) Salicylates Crossmatch 08/07/20 08/07/20 08/07/20 04:00 04:05 04:05 WBC RBC 2.32 L Hgb 7.1 L Hct 20.9 L MCV MCH MCHC RDW 17.9 H Plt Count Seg Neuts % (Manual) Lymphocytes % (Manual) Seg Neutrophils # Man Lymphocytes # (Manual) Haptoglobin PT INR ABG pH POC ABG pCO2 POC ABG pO2 150.6 H ABG pO2 ABG O2 Saturation ABG Hemoglobin 8.0 L ABG Oxyhemoglobin 98.4 H ABG Sodium 146.7 H ABG Potassium ABG Chloride 114.0 H ABG Glucose 201 H Oxyhemoglobin Carboxyhemoglobin Sodium 151 H Potassium Chloride 114.3 H Carbon Dioxide BUN 63 H Creatinine Glucose 198 H POC Glucose Hemoglobin A1c Lactic Acid Calcium Ionized Calcium Phosphorus AST 54 H ALT Alkaline Phosphatase 213 H Ammonia Lactate Dehydrogenase Total Creatine Kinase Troponin T C-Reactive Protein Total Protein 6.1 L Albumin 2.0 L Triglycerides LDL Cholesterol Direct HDL Cholesterol Arterial Blood Glucose 201 H Arterial Blood Ionized Calcium Urine WBC (Auto) Salicylates Crossmatch 08/07/20 08/07/20 08/07/20 05:34 11:43 14:30 WBC RBC Hgb Hct MCV MCH MCHC RDW Plt Count Seg Neuts % (Manual) Lymphocytes % (Manual) Seg Neutrophils # Man Lymphocytes # (Manual) Haptoglobin PT INR ABG pH POC ABG pCO2 POC ABG pO2 ABG pO2 62.9 L ABG O2 Saturation 86.7 L ABG Hemoglobin 7.1 L ABG Oxyhemoglobin ABG Sodium ABG Potassium ABG Chloride ABG Glucose Oxyhemoglobin 85.0 L Carboxyhemoglobin Sodium Potassium Chloride Carbon Dioxide BUN Creatinine Glucose POC Glucose 160 H 201 H Hemoglobin A1c Lactic Acid Calcium Ionized Calcium Phosphorus AST ALT Alkaline Phosphatase Ammonia Lactate Dehydrogenase Total Creatine Kinase Troponin T C-Reactive Protein Total Protein Albumin Triglycerides LDL Cholesterol Direct HDL Cholesterol Arterial Blood Glucose Arterial Blood Ionized Calcium Urine WBC (Auto) Salicylates Crossmatch 08/07/20 08/07/20 08/08/20 17:57 23:12 05:38 WBC RBC Hgb Hct MCV MCH MCHC RDW Plt Count Seg Neuts % (Manual) Lymphocytes % (Manual) Seg Neutrophils # Man Lymphocytes # (Manual) Haptoglobin PT INR ABG pH POC ABG pCO2 POC ABG pO2 ABG pO2 ABG O2 Saturation ABG Hemoglobin ABG Oxyhemoglobin ABG Sodium ABG Potassium ABG Chloride ABG Glucose Oxyhemoglobin Carboxyhemoglobin Sodium Potassium Chloride Carbon Dioxide BUN Creatinine Glucose POC Glucose 242 H 246 H 135 H Hemoglobin A1c Lactic Acid Calcium Ionized Calcium Phosphorus AST ALT Alkaline Phosphatase Ammonia Lactate Dehydrogenase Total Creatine Kinase Troponin T C-Reactive Protein Total Protein Albumin Triglycerides LDL Cholesterol Direct HDL Cholesterol Arterial Blood Glucose Arterial Blood Ionized Calcium Urine WBC (Auto) Salicylates Crossmatch 08/08/20 08/08/20 08/08/20 09:49 11:40 17:28 WBC RBC Hgb Hct MCV MCH MCHC RDW Plt Count Seg Neuts % (Manual) Lymphocytes % (Manual) Seg Neutrophils # Man Lymphocytes # (Manual) Haptoglobin PT INR ABG pH POC ABG pCO2 POC ABG pO2 ABG pO2 ABG O2 Saturation ABG Hemoglobin 6.9 L ABG Oxyhemoglobin ABG Sodium 146.1 H ABG Potassium ABG Chloride 114.0 H ABG Glucose 192 H Oxyhemoglobin Carboxyhemoglobin Sodium Potassium Chloride Carbon Dioxide BUN Creatinine Glucose POC Glucose 187 H 175 H Hemoglobin A1c Lactic Acid Calcium Ionized Calcium Phosphorus AST ALT Alkaline Phosphatase Ammonia Lactate Dehydrogenase Total Creatine Kinase Troponin T C-Reactive Protein Total Protein Albumin Triglycerides LDL Cholesterol Direct HDL Cholesterol Arterial Blood Glucose 192 H Arterial Blood Ionized Calcium Urine WBC (Auto) Salicylates Crossmatch 08/09/20 08/09/20 08/09/20 03:41 06:10 11:58 WBC RBC Hgb Hct MCV MCH MCHC RDW Plt Count Seg Neuts % (Manual) Lymphocytes % (Manual) Seg Neutrophils # Man Lymphocytes # (Manual) Haptoglobin PT INR ABG pH POC ABG pCO2 POC ABG pO2 ABG pO2 ABG O2 Saturation ABG Hemoglobin 6.9 L ABG Oxyhemoglobin ABG Sodium 145.8 H ABG Potassium 4.6 H ABG Chloride 113.0 H ABG Glucose 113 H Oxyhemoglobin Carboxyhemoglobin Sodium Potassium Chloride Carbon Dioxide BUN Creatinine Glucose POC Glucose 118 H 124 H Hemoglobin A1c Lactic Acid Calcium Ionized Calcium Phosphorus AST ALT Alkaline Phosphatase Ammonia Lactate Dehydrogenase Total Creatine Kinase Troponin T C-Reactive Protein Total Protein Albumin Triglycerides LDL Cholesterol Direct HDL Cholesterol Arterial Blood Glucose 113 H Arterial Blood Ionized Calcium Urine WBC (Auto) Salicylates Crossmatch 08/09/20 08/09/20 08/09/20 14:05 14:05 17:42 WBC RBC 3.58 L Hgb 10.5 L D Hct 31.6 L D MCV MCH MCHC RDW 17.8 H Plt Count 125 L Seg Neuts % (Manual) Lymphocytes % (Manual) Seg Neutrophils # Man Lymphocytes # (Manual) Haptoglobin PT INR ABG pH POC ABG pCO2 POC ABG pO2 ABG pO2 ABG O2 Saturation ABG Hemoglobin ABG Oxyhemoglobin ABG Sodium ABG Potassium ABG Chloride ABG Glucose Oxyhemoglobin Carboxyhemoglobin Sodium Potassium Chloride 111.2 H Carbon Dioxide BUN 74 H Creatinine Glucose 137 H POC Glucose 139 H Hemoglobin A1c Lactic Acid Calcium Ionized Calcium Phosphorus AST ALT Alkaline Phosphatase Ammonia Lactate Dehydrogenase Total Creatine Kinase Troponin T C-Reactive Protein Total Protein Albumin Triglycerides LDL Cholesterol Direct HDL Cholesterol Arterial Blood Glucose Arterial Blood Ionized Calcium Urine WBC (Auto) Salicylates Crossmatch 08/09/20 08/09/20 08/09/20 21:07 21:25 23:26 WBC RBC Hgb Hct MCV MCH MCHC RDW Plt Count Seg Neuts % (Manual) Lymphocytes % (Manual) Seg Neutrophils # Man Lymphocytes # (Manual) Haptoglobin PT 15.5 H INR 1.17 H ABG pH POC ABG pCO2 POC ABG pO2 ABG pO2 ABG O2 Saturation ABG Hemoglobin ABG Oxyhemoglobin ABG Sodium ABG Potassium ABG Chloride ABG Glucose Oxyhemoglobin Carboxyhemoglobin Sodium Potassium Chloride Carbon Dioxide BUN Creatinine Glucose POC Glucose 156 H 167 H Hemoglobin A1c Lactic Acid Calcium Ionized Calcium Phosphorus AST ALT Alkaline Phosphatase Ammonia Lactate Dehydrogenase Total Creatine Kinase Troponin T C-Reactive Protein Total Protein Albumin Triglycerides LDL Cholesterol Direct HDL Cholesterol Arterial Blood Glucose Arterial Blood Ionized Calcium Urine WBC (Auto) Salicylates Crossmatch 08/10/20 08/10/20 08/10/20 03:04 12:19 14:53 WBC RBC 2.06 L Hgb 6.1 L D Hct 18.6 L* D MCV MCH MCHC RDW 18.3 H Plt Count 137 L Seg Neuts % (Manual) Lymphocytes % (Manual) Seg Neutrophils # Man Lymphocytes # (Manual) Haptoglobin PT INR ABG pH POC ABG pCO2 POC ABG pO2 ABG pO2 ABG O2 Saturation ABG Hemoglobin 6.7 L ABG Oxyhemoglobin ABG Sodium ABG Potassium ABG Chloride 111.0 H ABG Glucose 116 H Oxyhemoglobin Carboxyhemoglobin Sodium Potassium Chloride Carbon Dioxide BUN Creatinine Glucose POC Glucose 57 L Hemoglobin A1c Lactic Acid Calcium Ionized Calcium Phosphorus AST ALT Alkaline Phosphatase Ammonia Lactate Dehydrogenase Total Creatine Kinase Troponin T C-Reactive Protein Total Protein Albumin Triglycerides LDL Cholesterol Direct HDL Cholesterol Arterial Blood Glucose 116 H Arterial Blood Ionized Calcium Urine WBC (Auto) Salicylates Crossmatch 08/10/20 08/10/20 08/10/20 14:53 18:08 23:11 WBC RBC Hgb Hct MCV MCH MCHC RDW Plt Count Seg Neuts % (Manual) Lymphocytes % (Manual) Seg Neutrophils # Man Lymphocytes # (Manual) Haptoglobin PT INR ABG pH POC ABG pCO2 POC ABG pO2 ABG pO2 ABG O2 Saturation ABG Hemoglobin ABG Oxyhemoglobin ABG Sodium ABG Potassium ABG Chloride ABG Glucose Oxyhemoglobin Carboxyhemoglobin Sodium 146 H Potassium Chloride 111.1 H Carbon Dioxide BUN 72 H Creatinine 1.4 H Glucose 158 H POC Glucose 68 L Hemoglobin A1c Lactic Acid Calcium 8.2 L Ionized Calcium Phosphorus AST ALT Alkaline Phosphatase Ammonia Lactate Dehydrogenase Total Creatine Kinase Troponin T C-Reactive Protein Total Protein Albumin Triglycerides LDL Cholesterol Direct HDL Cholesterol Arterial Blood Glucose Arterial Blood Ionized Calcium Urine WBC (Auto) Salicylates Crossmatch See Detail 08/11/20 08/11/20 08/11/20 04:12 05:34 05:36 WBC RBC Hgb Hct MCV MCH MCHC RDW Plt Count Seg Neuts % (Manual) Lymphocytes % (Manual) Seg Neutrophils # Man Lymphocytes # (Manual) Haptoglobin PT INR ABG pH POC ABG pCO2 POC ABG pO2 397.7 H ABG pO2 ABG O2 Saturation ABG Hemoglobin 7.6 L ABG Oxyhemoglobin 98.8 H ABG Sodium ABG Potassium ABG Chloride 113.0 H ABG Glucose 60 L Oxyhemoglobin Carboxyhemoglobin Sodium Potassium Chloride Carbon Dioxide BUN Creatinine Glucose POC Glucose 55 L 51 L Hemoglobin A1c Lactic Acid Calcium Ionized Calcium Phosphorus AST ALT Alkaline Phosphatase Ammonia Lactate Dehydrogenase Total Creatine Kinase Troponin T C-Reactive Protein Total Protein Albumin Triglycerides LDL Cholesterol Direct HDL Cholesterol Arterial Blood Glucose 60 L Arterial Blood Ionized Calcium 4.4 L Urine WBC (Auto) Salicylates Crossmatch 08/11/20 08/11/20 08/11/20 08:40 08:40 10:23 WBC RBC 2.14 L Hgb 6.2 L 6.3 L Hct 18.8 L* 19.0 L* MCV MCH MCHC RDW 17.6 H Plt Count Seg Neuts % (Manual) Lymphocytes % (Manual) Seg Neutrophils # Man Lymphocytes # (Manual) Haptoglobin PT INR ABG pH POC ABG pCO2 POC ABG pO2 ABG pO2 ABG O2 Saturation ABG Hemoglobin ABG Oxyhemoglobin ABG Sodium ABG Potassium ABG Chloride ABG Glucose Oxyhemoglobin Carboxyhemoglobin Sodium 147 H Potassium Chloride 112.3 H Carbon Dioxide BUN 62 H Creatinine 1.5 H Glucose 73 L POC Glucose Hemoglobin A1c Lactic Acid Calcium 7.9 L Ionized Calcium Phosphorus AST ALT Alkaline Phosphatase Ammonia Lactate Dehydrogenase Total Creatine Kinase Troponin T C-Reactive Protein Total Protein Albumin Triglycerides LDL Cholesterol Direct HDL Cholesterol Arterial Blood Glucose Arterial Blood Ionized Calcium Urine WBC (Auto) Salicylates Crossmatch 08/11/20 08/11/20 08/11/20 11:56 17:43 18:40 WBC RBC Hgb Hct MCV MCH MCHC RDW Plt Count Seg Neuts % (Manual) Lymphocytes % (Manual) Seg Neutrophils # Man Lymphocytes # (Manual) Haptoglobin PT 15.7 H INR 1.19 H ABG pH POC ABG pCO2 POC ABG pO2 ABG pO2 ABG O2 Saturation ABG Hemoglobin ABG Oxyhemoglobin ABG Sodium ABG Potassium ABG Chloride ABG Glucose Oxyhemoglobin Carboxyhemoglobin Sodium Potassium Chloride Carbon Dioxide BUN Creatinine Glucose POC Glucose 53 L 113 H Hemoglobin A1c Lactic Acid Calcium Ionized Calcium Phosphorus AST ALT Alkaline Phosphatase Ammonia Lactate Dehydrogenase Total Creatine Kinase Troponin T C-Reactive Protein Total Protein Albumin Triglycerides LDL Cholesterol Direct HDL Cholesterol Arterial Blood Glucose Arterial Blood Ionized Calcium Urine WBC (Auto) Salicylates Crossmatch 08/11/20 08/11/20 08/11/20 18:40 20:10 22:13 WBC RBC Hgb 6.2 L 6.1 L Hct 18.4 L* 18.3 L* MCV MCH MCHC RDW Plt Count Seg Neuts % (Manual) Lymphocytes % (Manual) Seg Neutrophils # Man Lymphocytes # (Manual) Haptoglobin PT INR ABG pH POC ABG pCO2 POC ABG pO2 163.6 H ABG pO2 ABG O2 Saturation ABG Hemoglobin 7.7 L ABG Oxyhemoglobin 98.3 H ABG Sodium ABG Potassium ABG Chloride 112.0 H ABG Glucose 119 H Oxyhemoglobin Carboxyhemoglobin Sodium Potassium Chloride Carbon Dioxide BUN Creatinine Glucose POC Glucose Hemoglobin A1c Lactic Acid Calcium Ionized Calcium Phosphorus AST ALT Alkaline Phosphatase Ammonia Lactate Dehydrogenase Total Creatine Kinase Troponin T C-Reactive Protein Total Protein Albumin Triglycerides LDL Cholesterol Direct HDL Cholesterol Arterial Blood Glucose 119 H Arterial Blood Ionized Calcium 4.4 L Urine WBC (Auto) Salicylates Crossmatch 08/11/20 08/12/20 08/12/20 23:32 04:43 04:43 WBC RBC Hgb Hct MCV MCH MCHC RDW Plt Count Seg Neuts % (Manual) Lymphocytes % (Manual) Seg Neutrophils # Man Lymphocytes # (Manual) Haptoglobin PT INR ABG pH POC ABG pCO2 POC ABG pO2 ABG pO2 ABG O2 Saturation ABG Hemoglobin ABG Oxyhemoglobin ABG Sodium ABG Potassium ABG Chloride ABG Glucose Oxyhemoglobin Carboxyhemoglobin Sodium Potassium Chloride Carbon Dioxide BUN Creatinine Glucose POC Glucose 106 H Hemoglobin A1c Lactic Acid Calcium Ionized Calcium Phosphorus AST 57 H ALT Alkaline Phosphatase 288 H Ammonia Lactate Dehydrogenase 239 H Total Creatine Kinase Troponin T C-Reactive Protein Total Protein 6.0 L Albumin 1.7 L Triglycerides LDL Cholesterol Direct HDL Cholesterol Arterial Blood Glucose Arterial Blood Ionized Calcium Urine WBC (Auto) Salicylates Crossmatch 08/12/20 08/12/20 08/12/20 04:43 04:53 05:07 WBC RBC 3.03 L Hgb 8.5 L Hct 25.6 L D MCV MCH MCHC RDW 18.4 H Plt Count Seg Neuts % (Manual) 88.0 H Lymphocytes % (Manual) 6.0 L Seg Neutrophils # Man Lymphocytes # (Manual) 0.4 L Haptoglobin 420 H PT INR ABG pH POC ABG pCO2 POC ABG pO2 ABG pO2 ABG O2 Saturation ABG Hemoglobin ABG Oxyhemoglobin ABG Sodium ABG Potassium ABG Chloride ABG Glucose Oxyhemoglobin Carboxyhemoglobin Sodium Potassium Chloride Carbon Dioxide BUN Creatinine Glucose POC Glucose 139 H Hemoglobin A1c Lactic Acid Calcium Ionized Calcium Phosphorus AST ALT Alkaline Phosphatase Ammonia Lactate Dehydrogenase Total Creatine Kinase Troponin T C-Reactive Protein Total Protein Albumin Triglycerides LDL Cholesterol Direct HDL Cholesterol Arterial Blood Glucose Arterial Blood Ionized Calcium Urine WBC (Auto) Salicylates Crossmatch 08/12/20 08/12/20 08/12/20 07:55 07:55 11:17 WBC RBC 2.90 L Hgb 8.1 L Hct 24.4 L MCV MCH MCHC RDW 18.9 H Plt Count Seg Neuts % (Manual) Lymphocytes % (Manual) Seg Neutrophils # Man Lymphocytes # (Manual) Haptoglobin PT INR ABG pH POC ABG pCO2 POC ABG pO2 ABG pO2 ABG O2 Saturation ABG Hemoglobin ABG Oxyhemoglobin ABG Sodium ABG Potassium ABG Chloride ABG Glucose Oxyhemoglobin Carboxyhemoglobin Sodium Potassium 3.3 L Chloride 109.8 H Carbon Dioxide BUN 52 H Creatinine Glucose 153 H POC Glucose 150 H Hemoglobin A1c Lactic Acid Calcium 8.1 L Ionized Calcium Phosphorus AST ALT Alkaline Phosphatase Ammonia Lactate Dehydrogenase Total Creatine Kinase Troponin T C-Reactive Protein Total Protein Albumin Triglycerides LDL Cholesterol Direct HDL Cholesterol Arterial Blood Glucose Arterial Blood Ionized Calcium Urine WBC (Auto) Salicylates Crossmatch 08/12/20 08/12/20 08/12/20 13:05 17:29 18:28 WBC RBC Hgb Hct MCV MCH MCHC RDW Plt Count Seg Neuts % (Manual) Lymphocytes % (Manual) Seg Neutrophils # Man Lymphocytes # (Manual) Haptoglobin PT INR ABG pH POC ABG pCO2 POC ABG pO2 ABG pO2 ABG O2 Saturation ABG Hemoglobin ABG Oxyhemoglobin ABG Sodium ABG Potassium ABG Chloride ABG Glucose Oxyhemoglobin Carboxyhemoglobin Sodium Potassium Chloride Carbon Dioxide BUN Creatinine Glucose POC Glucose 143 H 158 H 158 H Hemoglobin A1c Lactic Acid Calcium Ionized Calcium Phosphorus AST ALT Alkaline Phosphatase Ammonia Lactate Dehydrogenase Total Creatine Kinase Troponin T C-Reactive Protein Total Protein Albumin Triglycerides LDL Cholesterol Direct HDL Cholesterol Arterial Blood Glucose Arterial Blood Ionized Calcium Urine WBC (Auto) Salicylates Crossmatch 08/12/20 08/13/20 08/13/20 23:22 05:32 09:58 WBC RBC 2.79 L Hgb 7.9 L Hct 23.5 L MCV MCH MCHC RDW 18.9 H Plt Count Seg Neuts % (Manual) Lymphocytes % (Manual) Seg Neutrophils # Man Lymphocytes # (Manual) Haptoglobin PT INR ABG pH POC ABG pCO2 POC ABG pO2 ABG pO2 ABG O2 Saturation ABG Hemoglobin ABG Oxyhemoglobin ABG Sodium ABG Potassium ABG Chloride ABG Glucose Oxyhemoglobin Carboxyhemoglobin Sodium Potassium Chloride Carbon Dioxide BUN Creatinine Glucose POC Glucose 191 H 131 H Hemoglobin A1c Lactic Acid Calcium Ionized Calcium Phosphorus AST ALT Alkaline Phosphatase Ammonia Lactate Dehydrogenase Total Creatine Kinase Troponin T C-Reactive Protein Total Protein Albumin Triglycerides LDL Cholesterol Direct HDL Cholesterol Arterial Blood Glucose Arterial Blood Ionized Calcium Urine WBC (Auto) Salicylates Crossmatch 08/13/20 08/13/20 08/13/20 09:58 12:07 12:10 WBC RBC Hgb Hct MCV MCH MCHC RDW Plt Count Seg Neuts % (Manual) Lymphocytes % (Manual) Seg Neutrophils # Man Lymphocytes # (Manual) Haptoglobin PT INR ABG pH POC ABG pCO2 POC ABG pO2 ABG pO2 ABG O2 Saturation ABG Hemoglobin ABG Oxyhemoglobin ABG Sodium ABG Potassium ABG Chloride ABG Glucose Oxyhemoglobin Carboxyhemoglobin Sodium Potassium 3.5 L Chloride 109.1 H Carbon Dioxide BUN 51 H Creatinine Glucose 168 H POC Glucose 142 H 159 H Hemoglobin A1c Lactic Acid Calcium 8.0 L Ionized Calcium Phosphorus AST ALT Alkaline Phosphatase Ammonia Lactate Dehydrogenase Total Creatine Kinase Troponin T C-Reactive Protein Total Protein Albumin Triglycerides LDL Cholesterol Direct HDL Cholesterol Arterial Blood Glucose Arterial Blood Ionized Calcium Urine WBC (Auto) Salicylates Crossmatch 08/13/20 08/13/20 08/14/20 17:17 23:17 05:10 WBC RBC Hgb Hct MCV MCH MCHC RDW Plt Count Seg Neuts % (Manual) Lymphocytes % (Manual) Seg Neutrophils # Man Lymphocytes # (Manual) Haptoglobin PT INR ABG pH POC ABG pCO2 POC ABG pO2 ABG pO2 ABG O2 Saturation ABG Hemoglobin ABG Oxyhemoglobin ABG Sodium ABG Potassium ABG Chloride ABG Glucose Oxyhemoglobin Carboxyhemoglobin Sodium Potassium Chloride Carbon Dioxide BUN Creatinine Glucose POC Glucose 137 H 157 H 153 H Hemoglobin A1c Lactic Acid Calcium Ionized Calcium Phosphorus AST ALT Alkaline Phosphatase Ammonia Lactate Dehydrogenase Total Creatine Kinase Troponin T C-Reactive Protein Total Protein Albumin Triglycerides LDL Cholesterol Direct HDL Cholesterol Arterial Blood Glucose Arterial Blood Ionized Calcium Urine WBC (Auto) Salicylates Crossmatch 08/14/20 08/14/20 08/14/20 11:35 12:05 13:01 WBC RBC 2.73 L Hgb 7.7 L Hct 22.6 L MCV 83 L MCH MCHC RDW 18.4 H Plt Count Seg Neuts % (Manual) Lymphocytes % (Manual) Seg Neutrophils # Man Lymphocytes # (Manual) Haptoglobin PT INR ABG pH POC ABG pCO2 POC ABG pO2 ABG pO2 75.1 L ABG O2 Saturation ABG Hemoglobin 7.7 L ABG Oxyhemoglobin ABG Sodium ABG Potassium ABG Chloride ABG Glucose Oxyhemoglobin 94.8 L Carboxyhemoglobin Sodium Potassium Chloride Carbon Dioxide BUN Creatinine Glucose POC Glucose 175 H Hemoglobin A1c Lactic Acid Calcium Ionized Calcium Phosphorus AST ALT Alkaline Phosphatase Ammonia Lactate Dehydrogenase Total Creatine Kinase Troponin T C-Reactive Protein Total Protein Albumin Triglycerides LDL Cholesterol Direct HDL Cholesterol Arterial Blood Glucose Arterial Blood Ionized Calcium Urine WBC (Auto) Salicylates Crossmatch 08/14/20 08/14/20 08/14/20 13:01 17:55 23:25 WBC RBC Hgb Hct MCV MCH MCHC RDW Plt Count Seg Neuts % (Manual) Lymphocytes % (Manual) Seg Neutrophils # Man Lymphocytes # (Manual) Haptoglobin PT INR ABG pH POC ABG pCO2 POC ABG pO2 ABG pO2 ABG O2 Saturation ABG Hemoglobin ABG Oxyhemoglobin ABG Sodium ABG Potassium ABG Chloride ABG Glucose Oxyhemoglobin Carboxyhemoglobin Sodium Potassium Chloride 107.3 H Carbon Dioxide BUN 49 H Creatinine Glucose 191 H POC Glucose 178 H 150 H Hemoglobin A1c Lactic Acid Calcium 7.9 L Ionized Calcium Phosphorus AST ALT Alkaline Phosphatase Ammonia Lactate Dehydrogenase Total Creatine Kinase Troponin T C-Reactive Protein Total Protein Albumin Triglycerides LDL Cholesterol Direct HDL Cholesterol Arterial Blood Glucose Arterial Blood Ionized Calcium Urine WBC (Auto) Salicylates Crossmatch 08/15/20 08/15/20 08/15/20 04:04 10:28 10:38 WBC RBC 2.94 L Hgb 8.3 L Hct 24.6 L MCV MCH MCHC RDW 18.7 H Plt Count 112 L Seg Neuts % (Manual) Lymphocytes % (Manual) Seg Neutrophils # Man Lymphocytes # (Manual) Haptoglobin PT INR ABG pH POC ABG pCO2 POC ABG pO2 ABG pO2 ABG O2 Saturation ABG Hemoglobin ABG Oxyhemoglobin ABG Sodium ABG Potassium ABG Chloride ABG Glucose Oxyhemoglobin Carboxyhemoglobin Sodium Potassium Chloride 107.4 H Carbon Dioxide BUN 47 H Creatinine Glucose 51 L POC Glucose 44 L Hemoglobin A1c Lactic Acid Calcium 8.3 L Ionized Calcium Phosphorus AST ALT Alkaline Phosphatase Ammonia Lactate Dehydrogenase Total Creatine Kinase Troponin T C-Reactive Protein Total Protein Albumin Triglycerides LDL Cholesterol Direct HDL Cholesterol Arterial Blood Glucose Arterial Blood Ionized Calcium Urine WBC (Auto) Salicylates Crossmatch 08/15/20 08/15/20 08/15/20 17:31 23:15 Unknown WBC RBC Hgb Hct MCV MCH MCHC RDW Plt Count Seg Neuts % (Manual) Lymphocytes % (Manual) Seg Neutrophils # Man Lymphocytes # (Manual) Haptoglobin PT INR ABG pH POC ABG pCO2 POC ABG pO2 ABG pO2 77.7 L ABG O2 Saturation ABG Hemoglobin 9.2 L ABG Oxyhemoglobin ABG Sodium ABG Potassium ABG Chloride ABG Glucose Oxyhemoglobin 94.9 L Carboxyhemoglobin Sodium Potassium Chloride Carbon Dioxide BUN Creatinine Glucose POC Glucose 64 L 114 H Hemoglobin A1c Lactic Acid Calcium Ionized Calcium Phosphorus AST ALT Alkaline Phosphatase Ammonia Lactate Dehydrogenase Total Creatine Kinase Troponin T C-Reactive Protein Total Protein Albumin Triglycerides LDL Cholesterol Direct HDL Cholesterol Arterial Blood Glucose Arterial Blood Ionized Calcium Urine WBC (Auto) Salicylates Crossmatch 08/16/20 08/16/20 08/16/20 05:09 08:02 08:02 WBC 4.1 L RBC 2.70 L Hgb 7.6 L Hct 22.9 L MCV MCH MCHC RDW 18.5 H Plt Count Seg Neuts % (Manual) Lymphocytes % (Manual) Seg Neutrophils # Man Lymphocytes # (Manual) Haptoglobin PT INR ABG pH POC ABG pCO2 POC ABG pO2 ABG pO2 ABG O2 Saturation ABG Hemoglobin ABG Oxyhemoglobin ABG Sodium ABG Potassium ABG Chloride ABG Glucose Oxyhemoglobin Carboxyhemoglobin Sodium Potassium Chloride 110.1 H Carbon Dioxide BUN 45 H Creatinine Glucose 187 H POC Glucose 204 H Hemoglobin A1c Lactic Acid Calcium 7.7 L Ionized Calcium Phosphorus AST ALT Alkaline Phosphatase Ammonia Lactate Dehydrogenase Total Creatine Kinase Troponin T C-Reactive Protein Total Protein Albumin Triglycerides LDL Cholesterol Direct HDL Cholesterol Arterial Blood Glucose Arterial Blood Ionized Calcium Urine WBC (Auto) Salicylates Crossmatch 08/16/20 08/16/20 08/17/20 12:28 17:21 00:20 WBC RBC Hgb Hct MCV MCH MCHC RDW Plt Count Seg Neuts % (Manual) Lymphocytes % (Manual) Seg Neutrophils # Man Lymphocytes # (Manual) Haptoglobin PT INR ABG pH POC ABG pCO2 POC ABG pO2 ABG pO2 ABG O2 Saturation ABG Hemoglobin ABG Oxyhemoglobin ABG Sodium ABG Potassium ABG Chloride ABG Glucose Oxyhemoglobin Carboxyhemoglobin Sodium Potassium Chloride Carbon Dioxide BUN Creatinine Glucose POC Glucose 126 H 107 H 194 H Hemoglobin A1c Lactic Acid Calcium Ionized Calcium Phosphorus AST ALT Alkaline Phosphatase Ammonia Lactate Dehydrogenase Total Creatine Kinase Troponin T C-Reactive Protein Total Protein Albumin Triglycerides LDL Cholesterol Direct HDL Cholesterol Arterial Blood Glucose Arterial Blood Ionized Calcium Urine WBC (Auto) Salicylates Crossmatch 08/17/20 08/17/20 08/17/20 06:02 09:40 09:40 WBC RBC 2.78 L Hgb 7.9 L Hct 24.1 L MCV MCH MCHC RDW 19.3 H Plt Count Seg Neuts % (Manual) Lymphocytes % (Manual) Seg Neutrophils # Man Lymphocytes # (Manual) Haptoglobin PT INR ABG pH POC ABG pCO2 POC ABG pO2 ABG pO2 ABG O2 Saturation ABG Hemoglobin ABG Oxyhemoglobin ABG Sodium ABG Potassium ABG Chloride ABG Glucose Oxyhemoglobin Carboxyhemoglobin Sodium Potassium Chloride 107.5 H Carbon Dioxide BUN 42 H Creatinine Glucose 205 H POC Glucose 199 H Hemoglobin A1c Lactic Acid Calcium Ionized Calcium Phosphorus AST 69 H ALT 93 H Alkaline Phosphatase 556 H Ammonia Lactate Dehydrogenase Total Creatine Kinase Troponin T C-Reactive Protein Total Protein 6.2 L Albumin 1.9 L Triglycerides LDL Cholesterol Direct HDL Cholesterol Arterial Blood Glucose Arterial Blood Ionized Calcium Urine WBC (Auto) Salicylates Crossmatch 08/17/20 08/17/20 11:51 12:54 WBC RBC Hgb Hct MCV MCH MCHC RDW Plt Count Seg Neuts % (Manual) Lymphocytes % (Manual) Seg Neutrophils # Man Lymphocytes # (Manual) Haptoglobin PT INR ABG pH 7.473 H POC ABG pCO2 POC ABG pO2 81.2 L ABG pO2 ABG O2 Saturation ABG Hemoglobin 7.7 L ABG Oxyhemoglobin ABG Sodium ABG Potassium ABG Chloride 110.0 H ABG Glucose 228 H Oxyhemoglobin Carboxyhemoglobin Sodium Potassium Chloride Carbon Dioxide BUN Creatinine Glucose POC Glucose 204 H Hemoglobin A1c Lactic Acid Calcium Ionized Calcium Phosphorus AST ALT Alkaline Phosphatase Ammonia Lactate Dehydrogenase Total Creatine Kinase Troponin T C-Reactive Protein Total Protein Albumin Triglycerides LDL Cholesterol Direct HDL Cholesterol Arterial Blood Glucose 228 H Arterial Blood Ionized Calcium Urine WBC (Auto) Salicylates Crossmatch Chest x-ray: image reviewed CT scan - chest: pending (LLL aeration and no pneumothorax) Allied health notes reviewed: nursing
[2020-08-17] MEDS ORDERED: INSULIN GLARGINE 100 UNITS/ML SUB-Q SCH (22:00)
[2020-08-18] MEDS: INSULIN LISPRO 100 UNIT/ML SUB-Q SCH ×4 (00:42→18:05)
[2020-08-18] MEDS: FREE WATER PO SCH ×6 (02:00→21:34)
[2020-08-18 07:23] LABS: Hematocrit 29.3 % (35.5-45.6); Hemoglobin 9.5 gm/dl (11.8-15.2); Mean Corpuscular HGB Conc 32 % (32-34); Mean Corpuscular Volume 87 fl (84-94); Red Blood Count 3.37 M/mm3 (3.65-5.03); Red Cell Distribution Width 19.3 % (13.2-15.2)
[2020-08-18 07:24] LABS: Platelet Count 173 K/mm3 (140-440)
[2020-08-18 07:28] LABS: Alanine Aminotransferase 122 units/L (7-56); Albumin 1.8 g/dL (3.9-5); BUN/Creatinine Ratio 41; Blood Urea Nitrogen 41 mg/dL (9-20); Calcium 8.4 mg/dL (8.4-10.2); Hemolysis Index 19
--- NOTE | 2020-08-18 08:44 | Ultrasound Report ---
ULTRASOUND ABDOMEN, LIMITED (RIGHT UPPER QUADRANT) INDICATION: Elevated LFTs and alk phos. COMPARISON: None available. FINDINGS: Pancreas: Visualized portion shows no significant abnormality. Liver: Normal. Gallbladder: Normal. Bile ducts: Normal. Common Bile Duct measures 2.9 mm. Free fluid: None. Additional Findings: Small right effusion. IMPRESSION: 1. No gallstones or biliary dilatation. 2. Small right effusion. Signer Name: Senthil Piña MD Signed: 08/18/2020 8:40 AM Workstation Name: [id number]
[2020-08-18] MEDS: ZINC SULFATE 220 MG CAP PO SCH ×2 (09:03→21:34)
[2020-08-18] MEDS: METOPROLOL TARTRATE 50 MG TAB PO SCH ×2 (09:03→21:34)
[2020-08-18] MEDS: amLODIPine 10 MG TAB PO SCH (09:03)
[2020-08-18] MEDS: FAMOTIDINE 20 MG TAB PO SCH ×2 (09:03→21:34)
[2020-08-18] MEDS: ASCORBIC ACID 500 MG TAB PO SCH ×2 (09:03→21:34)
[2020-08-18] MEDS: ENOXAPARIN 40 MG/0.4 ML INJ SUB-Q SCH (09:03)
[2020-08-18] MEDS: SENNOSIDES/DOCUSATE SODIUM 8.6/50 MG TAB FEEDTUBE SCH ×2 (09:04→21:34)
--- NOTE | 2020-08-18 09:46 | Electrocardiograph Report ---
[facility] Test Date: 2020-08-16 Test Time: 15:57:08 Pat Name: PRANAV PORTER Department: Room: A252 1 Gender: M [employer]: [id number] : 1950 Requested By: DARI GARNICA Order Number: [id number] Reading MD: Alexandre Sweeney Measurements Intervals [place] Rate: 87 P: 103 CO: 172 QRS: 67 QRSD: 74 T: 48 QT: 341 QTc: 410 Interpretive Statements Sinus rhythm nonspecific st-t Ventricular premature complex Compared to ECG 08/13/2020 18:58:13 Ventricular premature complex(es) now present Electronically Signed On 08-18-2020 9:45:38 EDT by Alexandre Sweeney
--- NOTE | 2020-08-18 11:57 | Progress Note ---
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 Clogged Feeding Tube Ascorbic Acid 500 mg 08/01/20 22:00 08/18/20 09:03 Ascorbic Acid 500 Mg Tab PO 500 mg BID [place] Administration Bisacodyl 10 mg 08/16/20 14:28 Bisacodyl 10 Mg Rect Supp CO QDAY PRN Constipation Dextrose 50 ml 07/29/20 15:46 08/15/20 10:45 Dextrose 50% In Water (25gm) 50 Ml Syringe IV 50 ml Q30MIN PRN Administration Hypoglycemia Protocol Enoxaparin Sodium 40 mg 08/17/20 10:00 08/18/20 09:03 Enoxaparin 40 Mg/0.4 Ml Inj SUB-Q 40 mg QDAY@1000 [place] Administration Famotidine 20 mg 07/30/20 10:00 08/18/20 09:03 Famotidine 20 Mg Tab PO 20 mg BID [place] Administration Hydralazine HCl 10 mg 08/07/20 10:49 Hydralazine 20 Mg/1 Ml Inj IV Q4HR PRN Give if SBP>180 DBP>100 Hydralazine HCl 10 mg 08/18/20 14:00 Hydralazine 10 Mg Tab PO Q8HR [place] Hydromorphone HCl 1 mg 08/07/20 12:28 08/12/20 18:19 Hydromorphone 1 Mg/1 Ml Inj IV 1 mg Q4H PRN Administration Pain , Severe (7-10) Hydrophilic Ointment 1 applic 07/28/20 09:30 Lip Therapy Vaseline TP Q2H PRN Dry Lips Micafungin Sodium 100 mg/ 100 mls @ 100 mls/hr 08/17/20 12:00 08/17/20 11:53 Sodium Chloride IV 08/31/20 12:59 100 mls/hr Q24H [facility] Administration Protocol Insulin Human Lispro 0 unit 08/04/20 12:00 08/18/20 05:41 Insulin Lispro 100 Unit/Ml SUB-Q Not Given Q6HR [facility] Protocol Metoprolol Tartrate 50 mg 08/17/20 10:00 08/18/20 09:03 Metoprolol Tartrate 50 Mg Tab PO 50 mg BID [place] Administration Multi-Ingred Cream/Lotion/Oil/Oint 1 applic 07/28/20 09:30 Mineral Oil/Petrolatum, White Ophth Oint 3.5 Gm OU Q4H PRN Dry Eye(s) Scopolamine 1 each 08/07/20 13:00 08/16/20 09:15 Scopolamine Transdermal Patch 72 Hr TD 1 each Q3D [facility] Administration Senna/Docusate Sodium 1 tab 07/28/20 22:00 08/18/20 09:04 Sennosides/Docusate Sodium 8.6/50 Mg Tab FEEDTUBE Not Given BID [place] Simple Syrup 15 ml 07/29/20 09:55 Simple Syrup 15 Ml FEEDTUBE PRN PRN Hypoglycemia Simple Syrup 30 ml 07/29/20 09:55 Simple Syrup 15 Ml FEEDTUBE PRN PRN Hypoglycemia Sodium Bicarbonate 325 mg 07/29/20 09:55 Sodium Bicarbonate 325 Mg Tab FEEDTUBE PRN PRN For Clogged Feeding Tube Sodium Chloride 10 ml 07/28/20 22:00 08/18/20 09:04 Sodium Chloride 0.9% 10 Ml Flush Syringe IV 10 ml BID [place] Administration Sodium Chloride 10 ml 07/28/20 14:27 Sodium Chloride 0.9% 10 Ml Flush Syringe IV PRN PRN LINE FLUSH Zinc Sulfate 220 mg 08/01/20 15:00 08/18/20 09:03 Zinc Sulfate 220 Mg Cap PO 220 mg BID [place] Administration Nutrition/Malnutrition Assess - Dietary Evaluation Nutrition/Malnutrition Findings: Nutrition Notes Start: 07/29/20 09:47 Freq: Status: Active Protocol: Document 08/17/20 11:01 (Rec: 08/17/20 11:05 [id number]) Nutrition Notes Initial or Follow up Reassessment Current Diagnosis Acute Kidney Injury, Respiratory Failure Other Pertinent Diagnosis Acute encephalopathy, Pneu, UTI, Quadriplegia Current Diet Vital AF 1.2 at 65 ml/hr Labs/Tests BG 205 Pertinent Medications Humalog Height 6 ft Weight 79.2 kg [place] Body Weight (kg) 80.90 BMI 23.6 Weight Status Appropriate Subjective/Other Information FU for TF tolerance. Observed TF running at goal rate and pt tolerating. Percent of energy/protein needs met: 98%/100% Burn Absent Trauma Absent Current % PO Negligible Minimum of two criteria No Fluid Accumulation Moderate to Severe (severe) #2 Nutrition Diagnosis Increased nutrient needs ( specify in comment below) Diagnosis Progress(for reassessment Continues documentation) #1 Nutrition Diagnosis Inadequate oral intake Diagnosis Progress(for reassessment Continues documentation) Is patient on ventilator? Yes Is Patient Ambulatory and/or Out of Bed No REE-([facility]-confined to bed) [phone] Calculation Used for Recommendations [facility] Additional Notes Pro needs 1.2-2g/k-163g/ day Fluid needs 1ml/kcal Nutrition Intervention Change Diet Order: Continue Nutrition Support: Continue Vital AF 1.2 at 65ml/ hr with 100 ml water flush q4h . Kcal 1,872 Protein (gm) 117 Fluid (mL) 1,265 Add Supplement/Snack (indicate name/kcal Reji BID /protein ) Provides kCal: 190 Provides Protein (gm) 5 Goal #1 TF tolerance Goal #2 TF to meet at least 80% energy and pro needs Anticipated Discharge Needs: Unable to determine at this time Follow-Up By: 08/22/20 Additional Comments FU for TF tolerance, BG, Reji administration <DARI GIPSON - Last Filed: 08/19/20 13:32> Assessment and Plan Assessment and plan: Patient seen and examined, agree with assessment and plan as outlined by nurse practitioner as above. No overnight events, patient going to LTAC. Hospitalist Physical - Constitutional Vitals: Temp Pulse Resp BP Pulse Ox 97.8 F 92 H 22 153/79 100 08/19/20 03:45 08/19/20 11:01 08/19/20 11:01 08/19/20 11:01 08/19/20 11:01 HEART Score - HEART Score Troponin: Troponin T 0.115 ng/mL (0.00-0.029) H* 07/28/20 08:48 Results - Labs CBC & Chem 7: 08/18/20 06:46 08/19/20 09:56 Labs: Laboratory Last Values WBC 7.6 K/mm3 (4.5-11.0) 08/18/20 06:46 RBC 3.37 M/mm3 (3.65-5.03) L 08/18/20 06:46 Hgb 9.5 gm/dl (11.8-15.2) L 08/18/20 06:46 Hct 29.3 % (35.5-45.6) L 08/18/20 06:46 MCV 87 fl (84-94) 08/18/20 06:46 MCH 28 pg (28-32) 08/18/20 06:46 MCHC 32 % (32-34) 08/18/20 06:46 RDW 19.3 % (13.2-15.2) H 08/18/20 06:46 Plt Count 173 K/mm3 (140-440) 08/18/20 06:46 Lymph % (Auto) Core Fitter 07/28/20 08:48 [place] % (Auto) Core Fitter 07/28/20 08:48 Eos % (Auto) Core Fitter 07/28/20 08:48 Baso % (Auto) Core Fitter 07/28/20 08:48 Lymph # (Auto) Core Fitter 07/28/20 08:48 [place] # (Auto) Core Fitter 07/28/20 08:48 Eos # (Auto) Core Fitter 07/28/20 08:48 Baso # (Auto) Core Fitter 07/28/20 08:48 Add Manual Diff Complete 08/12/20 04:53 Total Counted 100 08/12/20 04:53 Seg Neutrophils % Core Fitter 08/05/20 08:48 Seg Neuts % (Manual) 88.0 % (40.0-70.0) H 08/12/20 04:53 Band Neutrophils % 2.0 % 08/12/20 04:53 Lymphocytes % (Manual) 6.0 % (13.4-35.0) L 08/12/20 04:53 Reactive Lymphs % (Man) 1.0 % 08/05/20 08:48 Monocytes % (Manual) 4.0 % (0.0-7.3) 08/12/20 04:53 Metamyelocytes % 14.0 % 07/29/20 Unknown Nucleated RBC % Not Reportable 08/12/20 04:53 Seg Neutrophils # Core Fitter 07/28/20 08:48 Seg Neutrophils # Man 5.5 K/mm3 (1.8-7.7) 08/12/20 04:53 Band Neutrophils # 0.1 K/mm3 08/12/20 04:53 Lymphocytes # (Manual) 0.4 K/mm3 (1.2-5.4) L 08/12/20 04:53 Abs React Lymphs (Man) 0.0 K/mm3 08/12/20 04:53 Monocytes # (Manual) 0.2 K/mm3 (0.0-0.8) 08/12/20 04:53 Eosinophils # (Manual) 0.0 K/mm3 (0.0-0.4) 08/12/20 04:53 Basophils # (Manual) 0.0 K/mm3 (0.0-0.1) 08/12/20 04:53 Metamyelocytes # 0.0 K/mm3 08/12/20 04:53 Myelocytes # 0.0 K/mm3 08/12/20 04:53 Promyelocytes # 0.0 K/mm3 08/12/20 04:53 Blast Cells # 0.0 K/mm3 08/12/20 04:53 WBC Morphology Not Reportable 08/12/20 04:53 Hypersegmented Neuts Not Reportable 08/12/20 04:53 Hyposegmented Neuts Not Reportable 08/12/20 04:53 Hypogranular Neuts Not Reportable 08/12/20 04:53 Smudge Cells Not Reportable 08/12/20 04:53 Toxic Granulation Not Reportable 08/12/20 04:53 Toxic Vacuolation Not Reportable 08/12/20 04:53 Dohle Bodies Not Reportable 08/12/20 04:53 Pelger-Huet Anomaly Not Reportable 08/12/20 04:53 Janna Rods Not Reportable 08/12/20 04:53 Platelet Estimate Not Reportable 08/12/20 04:53 Clumped Platelets Not Reportable 08/12/20 04:53 Plt Clumps, EDTA Not Reportable 08/12/20 04:53 Large Platelets Not Reportable 08/12/20 04:53 Giant Platelets Not Reportable 08/12/20 04:53 Platelet Satelliting Not Reportable 08/12/20 04:53 Plt Morphology Comment Not Reportable 08/12/20 04:53 RBC Morphology Not Reportable 08/12/20 04:53 Dimorphic RBCs Not Reportable 08/12/20 04:53 Polychromasia Not Reportable 08/12/20 04:53 Hypochromasia 1+ 08/12/20 04:53 Poikilocytosis Not Reportable 08/12/20 04:53 Anisocytosis 1+ 08/12/20 04:53 Microcytosis Not Reportable 08/12/20 04:53 Macrocytosis Not Reportable 08/12/20 04:53 Spherocytes Not Reportable 08/12/20 04:53 Pappenheimer Bodies Not Reportable 08/12/20 04:53 Sickle Cells Not Reportable 08/12/20 04:53 Target Cells Few 08/12/20 04:53 Tear Drop Cells Not Reportable 08/12/20 04:53 Ovalocytes Not Reportable 08/12/20 04:53 Helmet Cells Not Reportable 08/12/20 04:53 [place] Bodies Not Reportable 08/12/20 04:53 [place] Rings Not Reportable 08/12/20 04:53 [place] Cells Not Reportable 08/12/20 04:53 Bite Cells Not Reportable 08/12/20 04:53 Crenated Cell Not Reportable 08/12/20 04:53 Elliptocytes Not Reportable 08/12/20 04:53 Acanthocytes (Spur) Not Reportable 08/12/20 04:53 Rouleaux Not Reportable 08/12/20 04:53 Hemoglobin C Crystals Not Reportable 08/12/20 04:53 Schistocytes Not Reportable 08/12/20 04:53 Malaria parasites Not Reportable 08/12/20 04:53 Percent Retic 1.65 % (0.78-2.58) 08/12/20 04:53 [place] Bodies Not Reportable 08/12/20 04:53 Haptoglobin 420 mg/dL (43-212) H 08/12/20 04:43 Hem Pathologist Commnt No 08/12/20 04:53 PT 14.7 Sec. (12.2-14.9) 08/15/20 10:28 INR 1.09 (0.87-1.13) 08/15/20 10:28 APTT 34.7 Sec. (24.2-36.6) 07/28/20 08:48 Heparin Anti-Xa, Unfract Negative (Negative) 08/01/20 23:40 ABG pH 7.480 (7.320-7.450) H 08/18/20 05:00 POC ABG pCO2 40.2 mmHg (32.0-48.0) 08/18/20 05:00 ABG pCO2 35.7 mm Hg 08/15/20 Unknown POC ABG pO2 95.3 mmHg (83-108) 08/18/20 05:00 ABG pO2 77.7 mm Hg (80.0-90.0) L 08/15/20 Unknown POC ABG HCO3 29.3 08/18/20 05:00 ABG HCO3 23.2 mmol/L (20.0-26.0) 08/15/20 Unknown ABG O2 Saturation 97.8 (0-100) 08/18/20 05:00 ABG O2 Content 12.3 (0.0-44) 08/15/20 Unknown POC ABG Base Excess 5.3 08/18/20 05:00 ABG Base Excess -0.8 mmol/L (-2.0-3.0) 08/15/20 Unknown ABG Hemoglobin 7.9 (12.0-17.5) L 08/18/20 05:00 ABG Oxyhemoglobin 96.7 (94-98) 08/18/20 05:00 ABG Carboxyhemoglobin 1.2 % (0.0-5.0) 08/15/20 Unknown ABG Methemoglobin 0.3 (0.0-1.5) 08/18/20 05:00 ABG Sodium 141.8 mmol/L (136.0-145.0) 08/18/20 05:00 ABG Potassium 3.5 mmol/L (3.40-4.50) 08/18/20 05:00 ABG Chloride 111.0 mmol/L (98-107) H 08/18/20 05:00 ABG Glucose 137 mg/dL (65-95) H 08/18/20 05:00 VBG pH 7.377 (7.320-7.420) 07/28/20 09:44 Oxyhemoglobin 94.9 % (95.0-99.0) L 08/15/20 Unknown Carboxyhemoglobin 0.8 (0.5-1.5) 08/18/20 05:00 FiO2 60 % 08/15/20 Unknown FiO2 % 60.0 08/18/20 05:00 Sodium 142 mmol/L (137-145) 08/19/20 09:56 Potassium 3.9 mmol/L (3.6-5.0) 08/19/20 09:56 Chloride 106.7 mmol/L (98-107) 08/19/20 09:56 Carbon Dioxide 26 mmol/L (22-30) 08/19/20 09:56 Anion Gap 13 mmol/L 08/19/20 09:56 BUN 43 mg/dL (9-20) H 08/19/20 09:56 Creatinine 0.8 mg/dL (0.8-1.3) 08/19/20 09:56 Estimated GFR > 60 ml/min 08/19/20 09:56 BUN/Creatinine Ratio 54 % 08/19/20 09:56 Glucose 241 mg/dL (75-100) H 08/19/20 09:56 POC Glucose 241 mg/dL (70-105) H 08/19/20 12:16 Hemoglobin A1c 8.8 % (4-6) H 08/01/20 04:30 Lactic Acid 1.60 mmol/L (0.7-2.0) 07/30/20 05:45 Calcium 7.9 mg/dL (8.4-10.2) L 08/19/20 09:56 Ionized Calcium 4.2 mg/dL (4.8-5.6) L 07/30/20 19:01 Phosphorus 2.90 mg/dL (2.5-4.5) D 08/04/20 03:00 Magnesium 2.20 mg/dL (1.7-2.3) 08/17/20 09:40 Total Bilirubin 0.20 mg/dL (0.1-1.2) 08/19/20 09:56 Direct Bilirubin < 0.2 mg/dL (0-0.2) 08/12/20 04:43 Indirect Bilirubin 0.0 mg/dL 08/12/20 04:43 AST 77 units/L (5-40) H 08/19/20 09:56 ALT 114 units/L (7-56) H 08/19/20 09:56 Alkaline Phosphatase 621 units/L (35-129) H 08/19/20 09:56 Ammonia 63.0 umol/L (25-60) H 07/28/20 08:48 Lactate Dehydrogenase 239 units/L (91-180) H 08/12/20 04:43 Total Creatine Kinase 486 units/L (55-170) H 07/28/20 08:48 Troponin T 0.115 ng/mL (0.00-0.029) H* 07/28/20 08:48 C-Reactive Protein 9.00 mg/dL (0.00-1.30) H 07/28/20 19:50 Total Protein 6.0 g/dL (6.3-8.2) L 08/19/20 09:56 Albumin 2.0 g/dL (3.9-5) L 08/19/20 09:56 Albumin/Globulin Ratio 0.5 % 08/19/20 09:56 Triglycerides 184 mg/dL (2-149) H 08/04/20 03:00 Cholesterol 80 mg/dL (50-199) 07/28/20 08:48 LDL Cholesterol Direct 44 mg/dL (50-130) L 07/28/20 08:48 HDL Cholesterol 26 mg/dL (40-59) L 07/28/20 08:48 Cholesterol/HDL Ratio 3.07 % 07/28/20 08:48 Serotonin Release Assay See scanned result 08/01/20 23:40 Procalcitonin 177.82 ng/mL (<0.15) 07/28/20 19:50 TSH 2.450 mlU/mL (0.270-4.200) 07/28/20 08:48 Arterial Blood Glucose 137 mg/dL (65-95) H 08/18/20 05:00 Arterial Blood Ionized Calcium 4.5 mg/dL (4.6-5.3) L 08/18/20 05:00 Urine Color Lin[place] (Yellow) 07/28/20 Unknown Urine Turbidity Cloudy (Clear) 07/28/20 Unknown Urine pH 5.0 (5.0-7.0) 07/28/20 Unknown Ur Specific Dwarf 1.018 (1.003-1.030) 07/28/20 Unknown Urine Protein 100 mg/dl mg/dL (Negative) 07/28/20 Unknown Urine Glucose (UA) Neg mg/dL (Negative) 07/28/20 Unknown Urine Ketones Neg mg/dL (Negative) 07/28/20 Unknown Urine Blood Lg (Negative) 07/28/20 Unknown Urine Nitrite Neg (Negative) 07/28/20 Unknown Urine Bilirubin Neg (Negative) 07/28/20 Unknown Urine Urobilinogen 2.0 mg/dL (<2.0) 07/28/20 Unknown Ur Leukocyte Esterase Lg (Negative) 07/28/20 Unknown Urine WBC (Auto) > 182.0 /HPF (0.0-6.0) H 07/28/20 Unknown Urine RBC (Auto) 30.0 /HPF (0.0-6.0) 07/28/20 Unknown U Epithel Cells (Auto) 2.0 /HPF (0-13.0) 07/28/20 Unknown Urine Bacteria (Auto) 1+ /HPF (Negative) 07/28/20 Unknown Ur Transition Epith Cell 4 /HPF 07/28/20 Unknown Hyaline Casts 5 /LPF 07/28/20 Unknown Urine Mucus Few /HPF 07/28/20 Unknown Fluid Type Pleural 08/16/20 15:35 Fluid Color Straw 08/16/20 15:35 Fluid Appearance Cloudy 08/16/20 15:35 Fluid WBC 425 /mm3 08/16/20 15:35 Fluid RBC 3000 /mm3 08/16/20 15:35 Fluid Seg Neutrophils 78.0 % 08/16/20 15:35 Fluid Lymphocytes 20.0 % 08/16/20 15:35 Fluid Monocytes 1.0 % 08/16/20 15:35 Fluid Eosinophils 1.0 % 08/16/20 15:35 Nasal Screen MRSA (PCR) Negative (Negative) 07/29/20 Unknown Salicylates < 0.3 mg/dL (2.8-20.0) L 07/28/20 09:44 Plasma/Serum Alcohol < 0.01 % (0-0.07) 07/28/20 09:44 Heparin-induced Plt Ab Negative (Negative) 08/01/20 23:40 UF Heparin High Dose 0 % Release 08/01/20 23:40 DEISY UFH Low Dose 0.1 0 % Release 08/01/20 23:40 DEISY UFH Low Dose 0.5 0 % Release 08/01/20 23:40 Coronavirus (PCR) Negative (Negative) 07/29/20 09:15 AFB Identification 08/06/20 11:55 Fungal Id Prelim Positive 08/06/20 11:55 Blood Type O POSITIVE 08/16/20 15:30 Antibody Screen Negative 08/16/20 15:30 Crossmatch See Detail 08/10/20 18:08 Ashley/IV: Voiding Method Indwelling Catheter Active Medications - Current Medications Current Medications: Generic Name Dose Route Start Last Admin Trade Name Freq PRN Reason Stop Dose Admin Acetaminophen 650 mg 07/28/20 14:27 08/08/20 21:50 Acetaminophen 325 Mg Tab PO 650 mg Q6H PRN Administration Pain, Mild (1-3) Albuterol 2.5 mg 07/28/20 14:27 08/05/20 14:27 Albuterol 2.5 Mg/3 Ml Nebu IH 2.5 mg Q3H PRN Administration Shortness Of Breath Amlodipine Besylate 10 mg 08/15/20 10:00 08/19/20 10:40 Amlodipine 10 Mg Tab PO 10 mg QDAY [place] Administration Lipase/Protease/Amylase 1 each 07/29/20 09:55 Lipase 10,500/Protease 25,000/Amylase 43,750 (Units) Dr Velasquez FEEDTUBE PRN PRN For Clogged Feeding Tube Ascorbic Acid 500 mg 08/01/20 22:00 08/19/20 10:45 Ascorbic Acid 500 Mg Tab PO 500 mg BID [place] Administration Bisacodyl 10 mg 08/16/20 14:28 Bisacodyl 10 Mg Rect Supp CO QDAY PRN Constipation Dextrose 50 ml 07/29/20 15:46 08/15/20 10:45 Dextrose 50% In Water (25gm) 50 Ml Syringe IV 50 ml Q30MIN PRN Administration Hypoglycemia Protocol Enoxaparin Sodium 40 mg 08/17/20 10:00 08/19/20 10:40 Enoxaparin 40 Mg/0.4 Ml Inj SUB-Q 40 mg QDAY@1000 [place] Administration Famotidine 20 mg 07/30/20 10:00 08/19/20 10:45 Famotidine 20 Mg Tab PO 20 mg BID [place] Administration Hydralazine HCl 10 mg 08/07/20 10:49 Hydralazine 20 Mg/1 Ml Inj IV Q4HR PRN Give if SBP>180 DBP>100 Hydralazine HCl 10 mg 08/18/20 14:00 08/19/20 06:40 Hydralazine 10 Mg Tab PO 10 mg Q8HR [place] Administration Hydromorphone HCl 1 mg 08/07/20 12:28 08/12/20 18:19 Hydromorphone 1 Mg/1 Ml Inj IV 1 mg Q4H PRN Administration Pain , Severe (7-10) Hydrophilic Ointment 1 applic 07/28/20 09:30 Lip Therapy Vaseline TP Q2H PRN Dry Lips Micafungin Sodium 100 mg/ 100 mls @ 100 mls/hr 08/17/20 12:00 08/18/20 13:41 Sodium Chloride IV 08/31/20 12:59 Infused Q24H [facility] Infusion Protocol Insulin Human Lispro 0 unit 08/04/20 12:00 08/19/20 06:15 Insulin Lispro 100 Unit/Ml SUB-Q 4 unit Q6HR [place] Administration Protocol Metoprolol Tartrate 50 mg 08/17/20 10:00 08/19/20 10:40 Metoprolol Tartrate 50 Mg Tab PO 50 mg BID [place] Administration Multi-Ingred Cream/Lotion/Oil/Oint 1 applic 07/28/20 09:30 Mineral Oil/Petrolatum, White Ophth Oint 3.5 Gm OU Q4H PRN Dry Eye(s) Scopolamine 1 each 08/07/20 13:00 08/19/20 11:36 Scopolamine Transdermal Patch 72 Hr TD 1 each Q3D [place] Administration Senna/Docusate Sodium 1 tab 07/28/20 22:00 08/19/20 10:50 Sennosides/Docusate Sodium 8.6/50 Mg Tab FEEDTUBE 1 tab BID [place] Administration Simple Syrup 15 ml 07/29/20 09:55 Simple Syrup 15 Ml FEEDTUBE PRN PRN Hypoglycemia Simple Syrup 30 ml 07/29/20 09:55 Simple Syrup 15 Ml FEEDTUBE PRN PRN Hypoglycemia Sodium Bicarbonate 325 mg 07/29/20 09:55 Sodium Bicarbonate 325 Mg Tab FEEDTUBE PRN PRN For Clogged Feeding Tube Sodium Chloride 10 ml 07/28/20 22:00 08/19/20 10:50 Sodium Chloride 0.9% 10 Ml Flush Syringe IV 10 ml BID [place] Administration Sodium Chloride 10 ml 07/28/20 14:27 Sodium Chloride 0.9% 10 Ml Flush Syringe IV PRN PRN LINE FLUSH Zinc Sulfate 220 mg 08/01/20 15:00 08/19/20 10:45 Zinc Sulfate 220 Mg Cap PO 220 mg BID [place] Administration Nutrition/Malnutrition Assess - Dietary Evaluation Nutrition/Malnutrition Findings: Nutrition Notes Start: 07/29/20 09:47 Freq: Status: Active Protocol: Document 08/17/20 11:01 (Rec: 08/17/20 11:05 [id number]) Nutrition Notes Initial or Follow up Reassessment Current Diagnosis Acute Kidney Injury, Respiratory Failure Other Pertinent Diagnosis Acute encephalopathy, Pneu, UTI, Quadriplegia Current Diet Vital AF 1.2 at 65 ml/hr Labs/Tests BG 205 Pertinent Medications Humalog Height 6 ft Weight 79.2 kg [place] Body Weight (kg) 80.90 BMI 23.6 Weight Status Appropriate Subjective/Other Information FU for TF tolerance. Observed TF running at goal rate and pt tolerating. Percent of energy/protein needs met: 98%/100% Burn Absent Trauma Absent Current % PO Negligible Minimum of two criteria No Fluid Accumulation Moderate to Severe (severe) #2 Nutrition Diagnosis Increased nutrient needs ( specify in comment below) Diagnosis Progress(for reassessment Continues documentation) #1 Nutrition Diagnosis Inadequate oral intake Diagnosis Progress(for reassessment Continues documentation) Is patient on ventilator? Yes Is Patient Ambulatory and/or Out of Bed No [facility] [phone] Calculation Used for Recommendations [facility] Additional Notes Pro needs 1.2-2g/k-163g/ day Fluid needs 1ml/kcal Nutrition Intervention Change Diet Order: Continue Nutrition Support: Continue Vital AF 1.2 at 65ml/ hr with 100 ml water flush q4h . Kcal 1,872 Protein (gm) 117 Fluid (mL) 1,265 Add Supplement/Snack (indicate name/kcal Reji BID /protein ) Provides kCal: 190 Provides Protein (gm) 5 Goal #1 TF tolerance Goal #2 TF to meet at least 80% energy and pro needs Anticipated Discharge Needs: Unable to determine at this time Follow-Up By: 08/22/20 Additional Comments FU for TF tolerance, BG, Reji administration
[2020-08-18] MEDS: MICAFUNGIN 100 MG in SODIUM CHLORIDE 0.9% 100 ML IV SCH (12:41)
--- NOTE | 2020-08-18 13:26 | Progress Note ---
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 Triglycerides 184 H LDL Cholesterol Direct HDL Cholesterol Arterial Blood Glucose 227 H Arterial Blood Ionized Calcium Urine WBC (Auto) Salicylates Crossmatch 08/04/20 08/04/20 08/04/20 05:17 11:52 11:53 WBC RBC Hgb Hct MCV MCH MCHC RDW Plt Count Seg Neuts % (Manual) Lymphocytes % (Manual) Seg Neutrophils # Man Lymphocytes # (Manual) Haptoglobin PT INR ABG pH POC ABG pCO2 POC ABG pO2 ABG pO2 ABG O2 Saturation ABG Hemoglobin ABG Oxyhemoglobin ABG Sodium ABG Potassium ABG Chloride ABG Glucose Oxyhemoglobin Carboxyhemoglobin Sodium Potassium Chloride Carbon Dioxide BUN Creatinine Glucose POC Glucose 224 H 253 H 237 H Hemoglobin A1c Lactic Acid Calcium Ionized Calcium Phosphorus AST ALT Alkaline Phosphatase Ammonia Lactate Dehydrogenase Total Creatine Kinase Troponin T C-Reactive Protein Total Protein Albumin Triglycerides LDL Cholesterol Direct HDL Cholesterol Arterial Blood Glucose Arterial Blood Ionized Calcium Urine WBC (Auto) Salicylates Crossmatch 08/04/20 08/04/20 08/04/20 15:35 16:25 17:45 WBC 21.5 H RBC 2.10 L Hgb 7.3 L Hct 22.0 L MCV MCH 33 H MCHC 37 H RDW 17.2 H Plt Count 133 L Seg Neuts % (Manual) Lymphocytes % (Manual) Seg Neutrophils # Man Lymphocytes # (Manual) Haptoglobin PT INR ABG pH POC ABG pCO2 POC ABG pO2 ABG pO2 ABG O2 Saturation ABG Hemoglobin ABG Oxyhemoglobin ABG Sodium ABG Potassium ABG Chloride ABG Glucose Oxyhemoglobin Carboxyhemoglobin Sodium Potassium Chloride Carbon Dioxide BUN Creatinine Glucose POC Glucose 230 H 218 H Hemoglobin A1c Lactic Acid Calcium Ionized Calcium Phosphorus AST ALT Alkaline Phosphatase Ammonia Lactate Dehydrogenase Total Creatine Kinase Troponin T C-Reactive Protein Total Protein Albumin Triglycerides LDL Cholesterol Direct HDL Cholesterol Arterial Blood Glucose Arterial Blood Ionized Calcium Urine WBC (Auto) Salicylates Crossmatch 08/04/20 08/05/20 08/05/20 23:11 03:28 05:25 WBC RBC Hgb Hct MCV MCH MCHC RDW Plt Count Seg Neuts % (Manual) Lymphocytes % (Manual) Seg Neutrophils # Man Lymphocytes # (Manual) Haptoglobin PT INR ABG pH POC ABG pCO2 POC ABG pO2 82.1 L ABG pO2 ABG O2 Saturation ABG Hemoglobin 8.6 L ABG Oxyhemoglobin 93.7 L ABG Sodium ABG Potassium ABG Chloride 113.0 H ABG Glucose 205 H Oxyhemoglobin Carboxyhemoglobin Sodium Potassium Chloride Carbon Dioxide BUN Creatinine Glucose POC Glucose 198 H 213 H Hemoglobin A1c Lactic Acid Calcium Ionized Calcium Phosphorus AST ALT Alkaline Phosphatase Ammonia Lactate Dehydrogenase Total Creatine Kinase Troponin T C-Reactive Protein Total Protein Albumin Triglycerides LDL Cholesterol Direct HDL Cholesterol Arterial Blood Glucose 205 H Arterial Blood Ionized Calcium Urine WBC (Auto) Salicylates Crossmatch 08/05/20 08/05/20 08/05/20 08:48 08:48 10:55 WBC 14.3 H RBC 2.76 L Hgb 8.1 L Hct 24.8 L MCV MCH MCHC RDW 17.4 H Plt Count 138 L Seg Neuts % (Manual) 97.0 H Lymphocytes % (Manual) 1.0 L Seg Neutrophils # Man 13.9 H Lymphocytes # (Manual) 0.1 L Haptoglobin PT INR ABG pH POC ABG pCO2 POC ABG pO2 158.7 H ABG pO2 ABG O2 Saturation ABG Hemoglobin 7.8 L ABG Oxyhemoglobin ABG Sodium ABG Potassium ABG Chloride 114.0 H ABG Glucose 242 H Oxyhemoglobin Carboxyhemoglobin Sodium 146 H Potassium Chloride 110.1 H Carbon Dioxide BUN 56 H Creatinine Glucose 219 H POC Glucose Hemoglobin A1c Lactic Acid Calcium Ionized Calcium Phosphorus AST ALT Alkaline Phosphatase 192 H Ammonia Lactate Dehydrogenase Total Creatine Kinase Troponin T C-Reactive Protein Total Protein 5.8 L Albumin 2.0 L Triglycerides LDL Cholesterol Direct HDL Cholesterol Arterial Blood Glucose 242 H Arterial Blood Ionized Calcium Urine WBC (Auto) Salicylates Crossmatch 08/05/20 08/05/20 08/05/20 11:12 11:30 17:08 WBC RBC Hgb Hct MCV MCH MCHC RDW Plt Count Seg Neuts % (Manual) Lymphocytes % (Manual) Seg Neutrophils # Man Lymphocytes # (Manual) Haptoglobin PT INR ABG pH POC ABG pCO2 POC ABG pO2 147.5 H ABG pO2 ABG O2 Saturation ABG Hemoglobin 7.5 L ABG Oxyhemoglobin 98.1 H ABG Sodium ABG Potassium ABG Chloride 113.0 H ABG Glucose 248 H Oxyhemoglobin Carboxyhemoglobin Sodium Potassium Chloride Carbon Dioxide BUN Creatinine Glucose POC Glucose 238 H 239 H Hemoglobin A1c Lactic Acid Calcium Ionized Calcium Phosphorus AST ALT Alkaline Phosphatase Ammonia Lactate Dehydrogenase Total Creatine Kinase Troponin T C-Reactive Protein Total Protein Albumin Triglycerides LDL Cholesterol Direct HDL Cholesterol Arterial Blood Glucose 248 H Arterial Blood Ionized Calcium Urine WBC (Auto) Salicylates Crossmatch 08/05/20 08/05/20 08/06/20 23:17 Unknown 05:12 WBC RBC Hgb Hct MCV MCH MCHC RDW Plt Count Seg Neuts % (Manual) Lymphocytes % (Manual) Seg Neutrophils # Man Lymphocytes # (Manual) Haptoglobin PT INR ABG pH POC ABG pCO2 POC ABG pO2 ABG pO2 ABG O2 Saturation ABG Hemoglobin ABG Oxyhemoglobin ABG Sodium ABG Potassium ABG Chloride ABG Glucose Oxyhemoglobin Carboxyhemoglobin Sodium Potassium Chloride 109.2 H Carbon Dioxide BUN 51 H Creatinine Glucose 229 H POC Glucose 200 H 145 H Hemoglobin A1c Lactic Acid Calcium Ionized Calcium Phosphorus AST ALT Alkaline Phosphatase Ammonia Lactate Dehydrogenase Total Creatine Kinase Troponin T C-Reactive Protein Total Protein Albumin Triglycerides LDL Cholesterol Direct HDL Cholesterol Arterial Blood Glucose Arterial Blood Ionized Calcium Urine WBC (Auto) Salicylates Crossmatch 08/06/20 08/06/20 08/06/20 05:21 10:00 11:28 WBC RBC Hgb Hct MCV MCH MCHC RDW Plt Count Seg Neuts % (Manual) Lymphocytes % (Manual) Seg Neutrophils # Man Lymphocytes # (Manual) Haptoglobin PT INR ABG pH 7.301 L 7.308 L POC ABG pCO2 49.5 H 49.1 H POC ABG pO2 178.4 H ABG pO2 ABG O2 Saturation ABG Hemoglobin 7.5 L 7.1 L ABG Oxyhemoglobin 98.8 H ABG Sodium ABG Potassium ABG Chloride 112.0 H 112.0 H ABG Glucose 149 H 162 H Oxyhemoglobin Carboxyhemoglobin Sodium Potassium Chloride Carbon Dioxide BUN Creatinine Glucose POC Glucose 158 H Hemoglobin A1c Lactic Acid Calcium Ionized Calcium Phosphorus AST ALT Alkaline Phosphatase Ammonia Lactate Dehydrogenase Total Creatine Kinase Troponin T C-Reactive Protein Total Protein Albumin Triglycerides LDL Cholesterol Direct HDL Cholesterol Arterial Blood Glucose 149 H 162 H Arterial Blood Ionized Calcium Urine WBC (Auto) Salicylates Crossmatch 08/06/20 08/06/20 08/06/20 17:42 23:56 Unknown WBC 13.0 H RBC 2.38 L Hgb 7.1 L Hct 21.5 L MCV MCH MCHC RDW 17.6 H Plt Count Seg Neuts % (Manual) Lymphocytes % (Manual) Seg Neutrophils # Man Lymphocytes # (Manual) Haptoglobin PT INR ABG pH POC ABG pCO2 POC ABG pO2 ABG pO2 ABG O2 Saturation ABG Hemoglobin ABG Oxyhemoglobin ABG Sodium ABG Potassium ABG Chloride ABG Glucose Oxyhemoglobin Carboxyhemoglobin Sodium Potassium Chloride Carbon Dioxide BUN Creatinine Glucose POC Glucose 179 H 259 H Hemoglobin A1c Lactic Acid Calcium Ionized Calcium Phosphorus AST ALT Alkaline Phosphatase Ammonia Lactate Dehydrogenase Total Creatine Kinase Troponin T C-Reactive Protein Total Protein Albumin Triglycerides LDL Cholesterol Direct HDL Cholesterol Arterial Blood Glucose Arterial Blood Ionized Calcium Urine WBC (Auto) Salicylates Crossmatch 08/07/20 08/07/20 08/07/20 04:00 04:05 04:05 WBC RBC 2.32 L Hgb 7.1 L Hct 20.9 L MCV MCH MCHC RDW 17.9 H Plt Count Seg Neuts % (Manual) Lymphocytes % (Manual) Seg Neutrophils # Man Lymphocytes # (Manual) Haptoglobin PT INR ABG pH POC ABG pCO2 POC ABG pO2 150.6 H ABG pO2 ABG O2 Saturation ABG Hemoglobin 8.0 L ABG Oxyhemoglobin 98.4 H ABG Sodium 146.7 H ABG Potassium ABG Chloride 114.0 H ABG Glucose 201 H Oxyhemoglobin Carboxyhemoglobin Sodium 151 H Potassium Chloride 114.3 H Carbon Dioxide BUN 63 H Creatinine Glucose 198 H POC Glucose Hemoglobin A1c Lactic Acid Calcium Ionized Calcium Phosphorus AST 54 H ALT Alkaline Phosphatase 213 H Ammonia Lactate Dehydrogenase Total Creatine Kinase Troponin T C-Reactive Protein Total Protein 6.1 L Albumin 2.0 L Triglycerides LDL Cholesterol Direct HDL Cholesterol Arterial Blood Glucose 201 H Arterial Blood Ionized Calcium Urine WBC (Auto) Salicylates Crossmatch 08/07/20 08/07/20 08/07/20 05:34 11:43 14:30 WBC RBC Hgb Hct MCV MCH MCHC RDW Plt Count Seg Neuts % (Manual) Lymphocytes % (Manual) Seg Neutrophils # Man Lymphocytes # (Manual) Haptoglobin PT INR ABG pH POC ABG pCO2 POC ABG pO2 ABG pO2 62.9 L ABG O2 Saturation 86.7 L ABG Hemoglobin 7.1 L ABG Oxyhemoglobin ABG Sodium ABG Potassium ABG Chloride ABG Glucose Oxyhemoglobin 85.0 L Carboxyhemoglobin Sodium Potassium Chloride Carbon Dioxide BUN Creatinine Glucose POC Glucose 160 H 201 H Hemoglobin A1c Lactic Acid Calcium Ionized Calcium Phosphorus AST ALT Alkaline Phosphatase Ammonia Lactate Dehydrogenase Total Creatine Kinase Troponin T C-Reactive Protein Total Protein Albumin Triglycerides LDL Cholesterol Direct HDL Cholesterol Arterial Blood Glucose Arterial Blood Ionized Calcium Urine WBC (Auto) Salicylates Crossmatch 08/07/20 08/07/20 08/08/20 17:57 23:12 05:38 WBC RBC Hgb Hct MCV MCH MCHC RDW Plt Count Seg Neuts % (Manual) Lymphocytes % (Manual) Seg Neutrophils # Man Lymphocytes # (Manual) Haptoglobin PT INR ABG pH POC ABG pCO2 POC ABG pO2 ABG pO2 ABG O2 Saturation ABG Hemoglobin ABG Oxyhemoglobin ABG Sodium ABG Potassium ABG Chloride ABG Glucose Oxyhemoglobin Carboxyhemoglobin Sodium Potassium Chloride Carbon Dioxide BUN Creatinine Glucose POC Glucose 242 H 246 H 135 H Hemoglobin A1c Lactic Acid Calcium Ionized Calcium Phosphorus AST ALT Alkaline Phosphatase Ammonia Lactate Dehydrogenase Total Creatine Kinase Troponin T C-Reactive Protein Total Protein Albumin Triglycerides LDL Cholesterol Direct HDL Cholesterol Arterial Blood Glucose Arterial Blood Ionized Calcium Urine WBC (Auto) Salicylates Crossmatch 08/08/20 08/08/20 08/08/20 09:49 11:40 17:28 WBC RBC Hgb Hct MCV MCH MCHC RDW Plt Count Seg Neuts % (Manual) Lymphocytes % (Manual) Seg Neutrophils # Man Lymphocytes # (Manual) Haptoglobin PT INR ABG pH POC ABG pCO2 POC ABG pO2 ABG pO2 ABG O2 Saturation ABG Hemoglobin 6.9 L ABG Oxyhemoglobin ABG Sodium 146.1 H ABG Potassium ABG Chloride 114.0 H ABG Glucose 192 H Oxyhemoglobin Carboxyhemoglobin Sodium Potassium Chloride Carbon Dioxide BUN Creatinine Glucose POC Glucose 187 H 175 H Hemoglobin A1c Lactic Acid Calcium Ionized Calcium Phosphorus AST ALT Alkaline Phosphatase Ammonia Lactate Dehydrogenase Total Creatine Kinase Troponin T C-Reactive Protein Total Protein Albumin Triglycerides LDL Cholesterol Direct HDL Cholesterol Arterial Blood Glucose 192 H Arterial Blood Ionized Calcium Urine WBC (Auto) Salicylates Crossmatch 08/09/20 08/09/20 08/09/20 03:41 06:10 11:58 WBC RBC Hgb Hct MCV MCH MCHC RDW Plt Count Seg Neuts % (Manual) Lymphocytes % (Manual) Seg Neutrophils # Man Lymphocytes # (Manual) Haptoglobin PT INR ABG pH POC ABG pCO2 POC ABG pO2 ABG pO2 ABG O2 Saturation ABG Hemoglobin 6.9 L ABG Oxyhemoglobin ABG Sodium 145.8 H ABG Potassium 4.6 H ABG Chloride 113.0 H ABG Glucose 113 H Oxyhemoglobin Carboxyhemoglobin Sodium Potassium Chloride Carbon Dioxide BUN Creatinine Glucose POC Glucose 118 H 124 H Hemoglobin A1c Lactic Acid Calcium Ionized Calcium Phosphorus AST ALT Alkaline Phosphatase Ammonia Lactate Dehydrogenase Total Creatine Kinase Troponin T C-Reactive Protein Total Protein Albumin Triglycerides LDL Cholesterol Direct HDL Cholesterol Arterial Blood Glucose 113 H Arterial Blood Ionized Calcium Urine WBC (Auto) Salicylates Crossmatch 08/09/20 08/09/20 08/09/20 14:05 14:05 17:42 WBC RBC 3.58 L Hgb 10.5 L D Hct 31.6 L D MCV MCH MCHC RDW 17.8 H Plt Count 125 L Seg Neuts % (Manual) Lymphocytes % (Manual) Seg Neutrophils # Man Lymphocytes # (Manual) Haptoglobin PT INR ABG pH POC ABG pCO2 POC ABG pO2 ABG pO2 ABG O2 Saturation ABG Hemoglobin ABG Oxyhemoglobin ABG Sodium ABG Potassium ABG Chloride ABG Glucose Oxyhemoglobin Carboxyhemoglobin Sodium Potassium Chloride 111.2 H Carbon Dioxide BUN 74 H Creatinine Glucose 137 H POC Glucose 139 H Hemoglobin A1c Lactic Acid Calcium Ionized Calcium Phosphorus AST ALT Alkaline Phosphatase Ammonia Lactate Dehydrogenase Total Creatine Kinase Troponin T C-Reactive Protein Total Protein Albumin Triglycerides LDL Cholesterol Direct HDL Cholesterol Arterial Blood Glucose Arterial Blood Ionized Calcium Urine WBC (Auto) Salicylates Crossmatch 08/09/20 08/09/20 08/09/20 21:07 21:25 23:26 WBC RBC Hgb Hct MCV MCH MCHC RDW Plt Count Seg Neuts % (Manual) Lymphocytes % (Manual) Seg Neutrophils # Man Lymphocytes # (Manual) Haptoglobin PT 15.5 H INR 1.17 H ABG pH POC ABG pCO2 POC ABG pO2 ABG pO2 ABG O2 Saturation ABG Hemoglobin ABG Oxyhemoglobin ABG Sodium ABG Potassium ABG Chloride ABG Glucose Oxyhemoglobin Carboxyhemoglobin Sodium Potassium Chloride Carbon Dioxide BUN Creatinine Glucose POC Glucose 156 H 167 H Hemoglobin A1c Lactic Acid Calcium Ionized Calcium Phosphorus AST ALT Alkaline Phosphatase Ammonia Lactate Dehydrogenase Total Creatine Kinase Troponin T C-Reactive Protein Total Protein Albumin Triglycerides LDL Cholesterol Direct HDL Cholesterol Arterial Blood Glucose Arterial Blood Ionized Calcium Urine WBC (Auto) Salicylates Crossmatch 08/10/20 08/10/20 08/10/20 03:04 12:19 14:53 WBC RBC 2.06 L Hgb 6.1 L D Hct 18.6 L* D MCV MCH MCHC RDW 18.3 H Plt Count 137 L Seg Neuts % (Manual) Lymphocytes % (Manual) Seg Neutrophils # Man Lymphocytes # (Manual) Haptoglobin PT INR ABG pH POC ABG pCO2 POC ABG pO2 ABG pO2 ABG O2 Saturation ABG Hemoglobin 6.7 L ABG Oxyhemoglobin ABG Sodium ABG Potassium ABG Chloride 111.0 H ABG Glucose 116 H Oxyhemoglobin Carboxyhemoglobin Sodium Potassium Chloride Carbon Dioxide BUN Creatinine Glucose POC Glucose 57 L Hemoglobin A1c Lactic Acid Calcium Ionized Calcium Phosphorus AST ALT Alkaline Phosphatase Ammonia Lactate Dehydrogenase Total Creatine Kinase Troponin T C-Reactive Protein Total Protein Albumin Triglycerides LDL Cholesterol Direct HDL Cholesterol Arterial Blood Glucose 116 H Arterial Blood Ionized Calcium Urine WBC (Auto) Salicylates Crossmatch 08/10/20 08/10/20 08/10/20 14:53 18:08 23:11 WBC RBC Hgb Hct MCV MCH MCHC RDW Plt Count Seg Neuts % (Manual) Lymphocytes % (Manual) Seg Neutrophils # Man Lymphocytes # (Manual) Haptoglobin PT INR ABG pH POC ABG pCO2 POC ABG pO2 ABG pO2 ABG O2 Saturation ABG Hemoglobin ABG Oxyhemoglobin ABG Sodium ABG Potassium ABG Chloride ABG Glucose Oxyhemoglobin Carboxyhemoglobin Sodium 146 H Potassium Chloride 111.1 H Carbon Dioxide BUN 72 H Creatinine 1.4 H Glucose 158 H POC Glucose 68 L Hemoglobin A1c Lactic Acid Calcium 8.2 L Ionized Calcium Phosphorus AST ALT Alkaline Phosphatase Ammonia Lactate Dehydrogenase Total Creatine Kinase Troponin T C-Reactive Protein Total Protein Albumin Triglycerides LDL Cholesterol Direct HDL Cholesterol Arterial Blood Glucose Arterial Blood Ionized Calcium Urine WBC (Auto) Salicylates Crossmatch See Detail 08/11/20 08/11/20 08/11/20 04:12 05:34 05:36 WBC RBC Hgb Hct MCV MCH MCHC RDW Plt Count Seg Neuts % (Manual) Lymphocytes % (Manual) Seg Neutrophils # Man Lymphocytes # (Manual) Haptoglobin PT INR ABG pH POC ABG pCO2 POC ABG pO2 397.7 H ABG pO2 ABG O2 Saturation ABG Hemoglobin 7.6 L ABG Oxyhemoglobin 98.8 H ABG Sodium ABG Potassium ABG Chloride 113.0 H ABG Glucose 60 L Oxyhemoglobin Carboxyhemoglobin Sodium Potassium Chloride Carbon Dioxide BUN Creatinine Glucose POC Glucose 55 L 51 L Hemoglobin A1c Lactic Acid Calcium Ionized Calcium Phosphorus AST ALT Alkaline Phosphatase Ammonia Lactate Dehydrogenase Total Creatine Kinase Troponin T C-Reactive Protein Total Protein Albumin Triglycerides LDL Cholesterol Direct HDL Cholesterol Arterial Blood Glucose 60 L Arterial Blood Ionized Calcium 4.4 L Urine WBC (Auto) Salicylates Crossmatch 08/11/20 08/11/20 08/11/20 08:40 08:40 10:23 WBC RBC 2.14 L Hgb 6.2 L 6.3 L Hct 18.8 L* 19.0 L* MCV MCH MCHC RDW 17.6 H Plt Count Seg Neuts % (Manual) Lymphocytes % (Manual) Seg Neutrophils # Man Lymphocytes # (Manual) Haptoglobin PT INR ABG pH POC ABG pCO2 POC ABG pO2 ABG pO2 ABG O2 Saturation ABG Hemoglobin ABG Oxyhemoglobin ABG Sodium ABG Potassium ABG Chloride ABG Glucose Oxyhemoglobin Carboxyhemoglobin Sodium 147 H Potassium Chloride 112.3 H Carbon Dioxide BUN 62 H Creatinine 1.5 H Glucose 73 L POC Glucose Hemoglobin A1c Lactic Acid Calcium 7.9 L Ionized Calcium Phosphorus AST ALT Alkaline Phosphatase Ammonia Lactate Dehydrogenase Total Creatine Kinase Troponin T C-Reactive Protein Total Protein Albumin Triglycerides LDL Cholesterol Direct HDL Cholesterol Arterial Blood Glucose Arterial Blood Ionized Calcium Urine WBC (Auto) Salicylates Crossmatch 08/11/20 08/11/20 08/11/20 11:56 17:43 18:40 WBC RBC Hgb Hct MCV MCH MCHC RDW Plt Count Seg Neuts % (Manual) Lymphocytes % (Manual) Seg Neutrophils # Man Lymphocytes # (Manual) Haptoglobin PT 15.7 H INR 1.19 H ABG pH POC ABG pCO2 POC ABG pO2 ABG pO2 ABG O2 Saturation ABG Hemoglobin ABG Oxyhemoglobin ABG Sodium ABG Potassium ABG Chloride ABG Glucose Oxyhemoglobin Carboxyhemoglobin Sodium Potassium Chloride Carbon Dioxide BUN Creatinine Glucose POC Glucose 53 L 113 H Hemoglobin A1c Lactic Acid Calcium Ionized Calcium Phosphorus AST ALT Alkaline Phosphatase Ammonia Lactate Dehydrogenase Total Creatine Kinase Troponin T C-Reactive Protein Total Protein Albumin Triglycerides LDL Cholesterol Direct HDL Cholesterol Arterial Blood Glucose Arterial Blood Ionized Calcium Urine WBC (Auto) Salicylates Crossmatch 08/11/20 08/11/20 08/11/20 18:40 20:10 22:13 WBC RBC Hgb 6.2 L 6.1 L Hct 18.4 L* 18.3 L* MCV MCH MCHC RDW Plt Count Seg Neuts % (Manual) Lymphocytes % (Manual) Seg Neutrophils # Man Lymphocytes # (Manual) Haptoglobin PT INR ABG pH POC ABG pCO2 POC ABG pO2 163.6 H ABG pO2 ABG O2 Saturation ABG Hemoglobin 7.7 L ABG Oxyhemoglobin 98.3 H ABG Sodium ABG Potassium ABG Chloride 112.0 H ABG Glucose 119 H Oxyhemoglobin Carboxyhemoglobin Sodium Potassium Chloride Carbon Dioxide BUN Creatinine Glucose POC Glucose Hemoglobin A1c Lactic Acid Calcium Ionized Calcium Phosphorus AST ALT Alkaline Phosphatase Ammonia Lactate Dehydrogenase Total Creatine Kinase Troponin T C-Reactive Protein Total Protein Albumin Triglycerides LDL Cholesterol Direct HDL Cholesterol Arterial Blood Glucose 119 H Arterial Blood Ionized Calcium 4.4 L Urine WBC (Auto) Salicylates Crossmatch 08/11/20 08/12/20 08/12/20 23:32 04:43 04:43 WBC RBC Hgb Hct MCV MCH MCHC RDW Plt Count Seg Neuts % (Manual) Lymphocytes % (Manual) Seg Neutrophils # Man Lymphocytes # (Manual) Haptoglobin PT INR ABG pH POC ABG pCO2 POC ABG pO2 ABG pO2 ABG O2 Saturation ABG Hemoglobin ABG Oxyhemoglobin ABG Sodium ABG Potassium ABG Chloride ABG Glucose Oxyhemoglobin Carboxyhemoglobin Sodium Potassium Chloride Carbon Dioxide BUN Creatinine Glucose POC Glucose 106 H Hemoglobin A1c Lactic Acid Calcium Ionized Calcium Phosphorus AST 57 H ALT Alkaline Phosphatase 288 H Ammonia Lactate Dehydrogenase 239 H Total Creatine Kinase Troponin T C-Reactive Protein Total Protein 6.0 L Albumin 1.7 L Triglycerides LDL Cholesterol Direct HDL Cholesterol Arterial Blood Glucose Arterial Blood Ionized Calcium Urine WBC (Auto) Salicylates Crossmatch 08/12/20 08/12/20 08/12/20 04:43 04:53 05:07 WBC RBC 3.03 L Hgb 8.5 L Hct 25.6 L D MCV MCH MCHC RDW 18.4 H Plt Count Seg Neuts % (Manual) 88.0 H Lymphocytes % (Manual) 6.0 L Seg Neutrophils # Man Lymphocytes # (Manual) 0.4 L Haptoglobin 420 H PT INR ABG pH POC ABG pCO2 POC ABG pO2 ABG pO2 ABG O2 Saturation ABG Hemoglobin ABG Oxyhemoglobin ABG Sodium ABG Potassium ABG Chloride ABG Glucose Oxyhemoglobin Carboxyhemoglobin Sodium Potassium Chloride Carbon Dioxide BUN Creatinine Glucose POC Glucose 139 H Hemoglobin A1c Lactic Acid Calcium Ionized Calcium Phosphorus AST ALT Alkaline Phosphatase Ammonia Lactate Dehydrogenase Total Creatine Kinase Troponin T C-Reactive Protein Total Protein Albumin Triglycerides LDL Cholesterol Direct HDL Cholesterol Arterial Blood Glucose Arterial Blood Ionized Calcium Urine WBC (Auto) Salicylates Crossmatch 08/12/20 08/12/20 08/12/20 07:55 07:55 11:17 WBC RBC 2.90 L Hgb 8.1 L Hct 24.4 L MCV MCH MCHC RDW 18.9 H Plt Count Seg Neuts % (Manual) Lymphocytes % (Manual) Seg Neutrophils # Man Lymphocytes # (Manual) Haptoglobin PT INR ABG pH POC ABG pCO2 POC ABG pO2 ABG pO2 ABG O2 Saturation ABG Hemoglobin ABG Oxyhemoglobin ABG Sodium ABG Potassium ABG Chloride ABG Glucose Oxyhemoglobin Carboxyhemoglobin Sodium Potassium 3.3 L Chloride 109.8 H Carbon Dioxide BUN 52 H Creatinine Glucose 153 H POC Glucose 150 H Hemoglobin A1c Lactic Acid Calcium 8.1 L Ionized Calcium Phosphorus AST ALT Alkaline Phosphatase Ammonia Lactate Dehydrogenase Total Creatine Kinase Troponin T C-Reactive Protein Total Protein Albumin Triglycerides LDL Cholesterol Direct HDL Cholesterol Arterial Blood Glucose Arterial Blood Ionized Calcium Urine WBC (Auto) Salicylates Crossmatch 08/12/20 08/12/20 08/12/20 13:05 17:29 18:28 WBC RBC Hgb Hct MCV MCH MCHC RDW Plt Count Seg Neuts % (Manual) Lymphocytes % (Manual) Seg Neutrophils # Man Lymphocytes # (Manual) Haptoglobin PT INR ABG pH POC ABG pCO2 POC ABG pO2 ABG pO2 ABG O2 Saturation ABG Hemoglobin ABG Oxyhemoglobin ABG Sodium ABG Potassium ABG Chloride ABG Glucose Oxyhemoglobin Carboxyhemoglobin Sodium Potassium Chloride Carbon Dioxide BUN Creatinine Glucose POC Glucose 143 H 158 H 158 H Hemoglobin A1c Lactic Acid Calcium Ionized Calcium Phosphorus AST ALT Alkaline Phosphatase Ammonia Lactate Dehydrogenase Total Creatine Kinase Troponin T C-Reactive Protein Total Protein Albumin Triglycerides LDL Cholesterol Direct HDL Cholesterol Arterial Blood Glucose Arterial Blood Ionized Calcium Urine WBC (Auto) Salicylates Crossmatch 08/12/20 08/13/20 08/13/20 23:22 05:32 09:58 WBC RBC 2.79 L Hgb 7.9 L Hct 23.5 L MCV MCH MCHC RDW 18.9 H Plt Count Seg Neuts % (Manual) Lymphocytes % (Manual) Seg Neutrophils # Man Lymphocytes # (Manual) Haptoglobin PT INR ABG pH POC ABG pCO2 POC ABG pO2 ABG pO2 ABG O2 Saturation ABG Hemoglobin ABG Oxyhemoglobin ABG Sodium ABG Potassium ABG Chloride ABG Glucose Oxyhemoglobin Carboxyhemoglobin Sodium Potassium Chloride Carbon Dioxide BUN Creatinine Glucose POC Glucose 191 H 131 H Hemoglobin A1c Lactic Acid Calcium Ionized Calcium Phosphorus AST ALT Alkaline Phosphatase Ammonia Lactate Dehydrogenase Total Creatine Kinase Troponin T C-Reactive Protein Total Protein Albumin Triglycerides LDL Cholesterol Direct HDL Cholesterol Arterial Blood Glucose Arterial Blood Ionized Calcium Urine WBC (Auto) Salicylates Crossmatch 08/13/20 08/13/20 08/13/20 09:58 12:07 12:10 WBC RBC Hgb Hct MCV MCH MCHC RDW Plt Count Seg Neuts % (Manual) Lymphocytes % (Manual) Seg Neutrophils # Man Lymphocytes # (Manual) Haptoglobin PT INR ABG pH POC ABG pCO2 POC ABG pO2 ABG pO2 ABG O2 Saturation ABG Hemoglobin ABG Oxyhemoglobin ABG Sodium ABG Potassium ABG Chloride ABG Glucose Oxyhemoglobin Carboxyhemoglobin Sodium Potassium 3.5 L Chloride 109.1 H Carbon Dioxide BUN 51 H Creatinine Glucose 168 H POC Glucose 142 H 159 H Hemoglobin A1c Lactic Acid Calcium 8.0 L Ionized Calcium Phosphorus AST ALT Alkaline Phosphatase Ammonia Lactate Dehydrogenase Total Creatine Kinase Troponin T C-Reactive Protein Total Protein Albumin Triglycerides LDL Cholesterol Direct HDL Cholesterol Arterial Blood Glucose Arterial Blood Ionized Calcium Urine WBC (Auto) Salicylates Crossmatch 08/13/20 08/13/20 08/14/20 17:17 23:17 05:10 WBC RBC Hgb Hct MCV MCH MCHC RDW Plt Count Seg Neuts % (Manual) Lymphocytes % (Manual) Seg Neutrophils # Man Lymphocytes # (Manual) Haptoglobin PT INR ABG pH POC ABG pCO2 POC ABG pO2 ABG pO2 ABG O2 Saturation ABG Hemoglobin ABG Oxyhemoglobin ABG Sodium ABG Potassium ABG Chloride ABG Glucose Oxyhemoglobin Carboxyhemoglobin Sodium Potassium Chloride Carbon Dioxide BUN Creatinine Glucose POC Glucose 137 H 157 H 153 H Hemoglobin A1c Lactic Acid Calcium Ionized Calcium Phosphorus AST ALT Alkaline Phosphatase Ammonia Lactate Dehydrogenase Total Creatine Kinase Troponin T C-Reactive Protein Total Protein Albumin Triglycerides LDL Cholesterol Direct HDL Cholesterol Arterial Blood Glucose Arterial Blood Ionized Calcium Urine WBC (Auto) Salicylates Crossmatch 08/14/20 08/14/20 08/14/20 11:35 12:05 13:01 WBC RBC 2.73 L Hgb 7.7 L Hct 22.6 L MCV 83 L MCH MCHC RDW 18.4 H Plt Count Seg Neuts % (Manual) Lymphocytes % (Manual) Seg Neutrophils # Man Lymphocytes # (Manual) Haptoglobin PT INR ABG pH POC ABG pCO2 POC ABG pO2 ABG pO2 75.1 L ABG O2 Saturation ABG Hemoglobin 7.7 L ABG Oxyhemoglobin ABG Sodium ABG Potassium ABG Chloride ABG Glucose Oxyhemoglobin 94.8 L Carboxyhemoglobin Sodium Potassium Chloride Carbon Dioxide BUN Creatinine Glucose POC Glucose 175 H Hemoglobin A1c Lactic Acid Calcium Ionized Calcium Phosphorus AST ALT Alkaline Phosphatase Ammonia Lactate Dehydrogenase Total Creatine Kinase Troponin T C-Reactive Protein Total Protein Albumin Triglycerides LDL Cholesterol Direct HDL Cholesterol Arterial Blood Glucose Arterial Blood Ionized Calcium Urine WBC (Auto) Salicylates Crossmatch 08/14/20 08/14/20 08/14/20 13:01 17:55 23:25 WBC RBC Hgb Hct MCV MCH MCHC RDW Plt Count Seg Neuts % (Manual) Lymphocytes % (Manual) Seg Neutrophils # Man Lymphocytes # (Manual) Haptoglobin PT INR ABG pH POC ABG pCO2 POC ABG pO2 ABG pO2 ABG O2 Saturation ABG Hemoglobin ABG Oxyhemoglobin ABG Sodium ABG Potassium ABG Chloride ABG Glucose Oxyhemoglobin Carboxyhemoglobin Sodium Potassium Chloride 107.3 H Carbon Dioxide BUN 49 H Creatinine Glucose 191 H POC Glucose 178 H 150 H Hemoglobin A1c Lactic Acid Calcium 7.9 L Ionized Calcium Phosphorus AST ALT Alkaline Phosphatase Ammonia Lactate Dehydrogenase Total Creatine Kinase Troponin T C-Reactive Protein Total Protein Albumin Triglycerides LDL Cholesterol Direct HDL Cholesterol Arterial Blood Glucose Arterial Blood Ionized Calcium Urine WBC (Auto) Salicylates Crossmatch 08/15/20 08/15/20 08/15/20 04:04 10:28 10:38 WBC RBC 2.94 L Hgb 8.3 L Hct 24.6 L MCV MCH MCHC RDW 18.7 H Plt Count 112 L Seg Neuts % (Manual) Lymphocytes % (Manual) Seg Neutrophils # Man Lymphocytes # (Manual) Haptoglobin PT INR ABG pH POC ABG pCO2 POC ABG pO2 ABG pO2 ABG O2 Saturation ABG Hemoglobin ABG Oxyhemoglobin ABG Sodium ABG Potassium ABG Chloride ABG Glucose Oxyhemoglobin Carboxyhemoglobin Sodium Potassium Chloride 107.4 H Carbon Dioxide BUN 47 H Creatinine Glucose 51 L POC Glucose 44 L Hemoglobin A1c Lactic Acid Calcium 8.3 L Ionized Calcium Phosphorus AST ALT Alkaline Phosphatase Ammonia Lactate Dehydrogenase Total Creatine Kinase Troponin T C-Reactive Protein Total Protein Albumin Triglycerides LDL Cholesterol Direct HDL Cholesterol Arterial Blood Glucose Arterial Blood Ionized Calcium Urine WBC (Auto) Salicylates Crossmatch 08/15/20 08/15/20 08/15/20 17:31 23:15 Unknown WBC RBC Hgb Hct MCV MCH MCHC RDW Plt Count Seg Neuts % (Manual) Lymphocytes % (Manual) Seg Neutrophils # Man Lymphocytes # (Manual) Haptoglobin PT INR ABG pH POC ABG pCO2 POC ABG pO2 ABG pO2 77.7 L ABG O2 Saturation ABG Hemoglobin 9.2 L ABG Oxyhemoglobin ABG Sodium ABG Potassium ABG Chloride ABG Glucose Oxyhemoglobin 94.9 L Carboxyhemoglobin Sodium Potassium Chloride Carbon Dioxide BUN Creatinine Glucose POC Glucose 64 L 114 H Hemoglobin A1c Lactic Acid Calcium Ionized Calcium Phosphorus AST ALT Alkaline Phosphatase Ammonia Lactate Dehydrogenase Total Creatine Kinase Troponin T C-Reactive Protein Total Protein Albumin Triglycerides LDL Cholesterol Direct HDL Cholesterol Arterial Blood Glucose Arterial Blood Ionized Calcium Urine WBC (Auto) Salicylates Crossmatch 08/16/20 08/16/20 08/16/20 05:09 08:02 08:02 WBC 4.1 L RBC 2.70 L Hgb 7.6 L Hct 22.9 L MCV MCH MCHC RDW 18.5 H Plt Count Seg Neuts % (Manual) Lymphocytes % (Manual) Seg Neutrophils # Man Lymphocytes # (Manual) Haptoglobin PT INR ABG pH POC ABG pCO2 POC ABG pO2 ABG pO2 ABG O2 Saturation ABG Hemoglobin ABG Oxyhemoglobin ABG Sodium ABG Potassium ABG Chloride ABG Glucose Oxyhemoglobin Carboxyhemoglobin Sodium Potassium Chloride 110.1 H Carbon Dioxide BUN 45 H Creatinine Glucose 187 H POC Glucose 204 H Hemoglobin A1c Lactic Acid Calcium 7.7 L Ionized Calcium Phosphorus AST ALT Alkaline Phosphatase Ammonia Lactate Dehydrogenase Total Creatine Kinase Troponin T C-Reactive Protein Total Protein Albumin Triglycerides LDL Cholesterol Direct HDL Cholesterol Arterial Blood Glucose Arterial Blood Ionized Calcium Urine WBC (Auto) Salicylates Crossmatch 08/16/20 08/16/20 08/17/20 12:28 17:21 00:20 WBC RBC Hgb Hct MCV MCH MCHC RDW Plt Count Seg Neuts % (Manual) Lymphocytes % (Manual) Seg Neutrophils # Man Lymphocytes # (Manual) Haptoglobin PT INR ABG pH POC ABG pCO2 POC ABG pO2 ABG pO2 ABG O2 Saturation ABG Hemoglobin ABG Oxyhemoglobin ABG Sodium ABG Potassium ABG Chloride ABG Glucose Oxyhemoglobin Carboxyhemoglobin Sodium Potassium Chloride Carbon Dioxide BUN Creatinine Glucose POC Glucose 126 H 107 H 194 H Hemoglobin A1c Lactic Acid Calcium Ionized Calcium Phosphorus AST ALT Alkaline Phosphatase Ammonia Lactate Dehydrogenase Total Creatine Kinase Troponin T C-Reactive Protein Total Protein Albumin Triglycerides LDL Cholesterol Direct HDL Cholesterol Arterial Blood Glucose Arterial Blood Ionized Calcium Urine WBC (Auto) Salicylates Crossmatch 08/17/20 08/17/20 08/17/20 06:02 09:40 09:40 WBC RBC 2.78 L Hgb 7.9 L Hct 24.1 L MCV MCH MCHC RDW 19.3 H Plt Count Seg Neuts % (Manual) Lymphocytes % (Manual) Seg Neutrophils # Man Lymphocytes # (Manual) Haptoglobin PT INR ABG pH POC ABG pCO2 POC ABG pO2 ABG pO2 ABG O2 Saturation ABG Hemoglobin ABG Oxyhemoglobin ABG Sodium ABG Potassium ABG Chloride ABG Glucose Oxyhemoglobin Carboxyhemoglobin Sodium Potassium Chloride 107.5 H Carbon Dioxide BUN 42 H Creatinine Glucose 205 H POC Glucose 199 H Hemoglobin A1c Lactic Acid Calcium Ionized Calcium Phosphorus AST 69 H ALT 93 H Alkaline Phosphatase 556 H Ammonia Lactate Dehydrogenase Total Creatine Kinase Troponin T C-Reactive Protein Total Protein 6.2 L Albumin 1.9 L Triglycerides LDL Cholesterol Direct HDL Cholesterol Arterial Blood Glucose Arterial Blood Ionized Calcium Urine WBC (Auto) Salicylates Crossmatch 0708/17/20 08/17/20 11:51 12:54 16:50 WBC RBC Hgb Hct MCV MCH MCHC RDW Plt Count Seg Neuts % (Manual) Lymphocytes % (Manual) Seg Neutrophils # Man Lymphocytes # (Manual) Haptoglobin PT INR ABG pH 7.473 H POC ABG pCO2 POC ABG pO2 81.2 L ABG pO2 ABG O2 Saturation ABG Hemoglobin 7.7 L ABG Oxyhemoglobin ABG Sodium ABG Potassium ABG Chloride 110.0 H ABG Glucose 228 H Oxyhemoglobin Carboxyhemoglobin Sodium Potassium Chloride Carbon Dioxide BUN Creatinine Glucose POC Glucose 204 H 188 H Hemoglobin A1c Lactic Acid Calcium Ionized Calcium Phosphorus AST ALT Alkaline Phosphatase Ammonia Lactate Dehydrogenase Total Creatine Kinase Troponin T C-Reactive Protein Total Protein Albumin Triglycerides LDL Cholesterol Direct HDL Cholesterol Arterial Blood Glucose 228 H Arterial Blood Ionized Calcium Urine WBC (Auto) Salicylates Crossmatch 08/17/20 08/18/20 08/18/20 23:07 05:00 05:12 WBC RBC Hgb Hct MCV MCH MCHC RDW Plt Count Seg Neuts % (Manual) Lymphocytes % (Manual) Seg Neutrophils # Man Lymphocytes # (Manual) Haptoglobin PT INR ABG pH 7.480 H POC ABG pCO2 POC ABG pO2 ABG pO2 ABG O2 Saturation ABG Hemoglobin 7.9 L ABG Oxyhemoglobin ABG Sodium ABG Potassium ABG Chloride 111.0 H ABG Glucose 137 H Oxyhemoglobin Carboxyhemoglobin Sodium Potassium Chloride Carbon Dioxide BUN Creatinine Glucose POC Glucose 187 H 118 H Hemoglobin A1c Lactic Acid Calcium Ionized Calcium Phosphorus AST ALT Alkaline Phosphatase Ammonia Lactate Dehydrogenase Total Creatine Kinase Troponin T C-Reactive Protein Total Protein Albumin Triglycerides LDL Cholesterol Direct HDL Cholesterol Arterial Blood Glucose 137 H Arterial Blood Ionized Calcium 4.5 L Urine WBC (Auto) Salicylates Crossmatch 08/18/20 08/18/20 08/18/20 06:46 06:46 08:03 WBC RBC 3.37 L Hgb 9.5 L Hct 29.3 L MCV MCH MCHC RDW 19.3 H Plt Count Seg Neuts % (Manual) Lymphocytes % (Manual) Seg Neutrophils # Man Lymphocytes # (Manual) Haptoglobin PT INR ABG pH POC ABG pCO2 POC ABG pO2 ABG pO2 ABG O2 Saturation ABG Hemoglobin ABG Oxyhemoglobin ABG Sodium ABG Potassium ABG Chloride ABG Glucose Oxyhemoglobin Carboxyhemoglobin Sodium Potassium Chloride 108.2 H Carbon Dioxide BUN 41 H Creatinine Glucose 120 H POC Glucose 111 H Hemoglobin A1c Lactic Acid Calcium Ionized Calcium Phosphorus AST 95 H ALT 122 H Alkaline Phosphatase 738 H Ammonia Lactate Dehydrogenase Total Creatine Kinase Troponin T C-Reactive Protein Total Protein Albumin 1.8 L Triglycerides LDL Cholesterol Direct HDL Cholesterol Arterial Blood Glucose Arterial Blood Ionized Calcium Urine WBC (Auto) Salicylates Crossmatch 08/18/20 11:21 WBC RBC Hgb Hct MCV MCH MCHC RDW Plt Count Seg Neuts % (Manual) Lymphocytes % (Manual) Seg Neutrophils # Man Lymphocytes # (Manual) Haptoglobin PT INR ABG pH POC ABG pCO2 POC ABG pO2 ABG pO2 ABG O2 Saturation ABG Hemoglobin ABG Oxyhemoglobin ABG Sodium ABG Potassium ABG Chloride ABG Glucose Oxyhemoglobin Carboxyhemoglobin Sodium Potassium Chloride Carbon Dioxide BUN Creatinine Glucose POC Glucose 151 H Hemoglobin A1c Lactic Acid Calcium Ionized Calcium Phosphorus AST ALT Alkaline Phosphatase Ammonia Lactate Dehydrogenase Total Creatine Kinase Troponin T C-Reactive Protein Total Protein Albumin Triglycerides LDL Cholesterol Direct HDL Cholesterol Arterial Blood Glucose Arterial Blood Ionized Calcium Urine WBC (Auto) Salicylates Crossmatch Chest x-ray: report reviewed, image reviewed Additional Studies: CHEST 1 VIEW 08/17/2020 8:10 AM INDICATION / CLINICAL INFORMATION: Respiratory failure. COMPARISON: Yesterday. FINDINGS: SUPPORT DEVICES: The position of the tracheostomy tube has not changed. HEART / MEDIASTINUM: Unchanged. LUNGS / PLEURA: There is moderate patchy pleuroparenchymal disease in both mid to lower hemithoraces, mildly increased since yesterday. No pneumothorax. ADDITIONAL FINDINGS: No significant additional findings. IMPRESSION: Mild increase in bilateral pleuroparenchymal opacities. Allied health notes reviewed: nursing
[2020-08-18] MEDS: hydrALAZINE 10 MG TAB PO SCH ×2 (15:13→21:34)
[2020-08-19] MEDS: INSULIN LISPRO 100 UNIT/ML SUB-Q SCH ×4 (00:48→17:42)
[2020-08-19] MEDS: FREE WATER PO SCH ×6 (02:20→21:19)
[2020-08-19] MEDS: hydrALAZINE 10 MG TAB PO SCH ×3 (06:40→21:10)
[2020-08-19] MEDS: amLODIPine 10 MG TAB PO SCH (10:40)
[2020-08-19] MEDS: METOPROLOL TARTRATE 50 MG TAB PO SCH ×2 (10:40→21:10)
[2020-08-19] MEDS: ENOXAPARIN 40 MG/0.4 ML INJ SUB-Q SCH (10:40)
[2020-08-19] MEDS: FAMOTIDINE 20 MG TAB PO SCH ×2 (10:45→21:10)
[2020-08-19] MEDS: ZINC SULFATE 220 MG CAP PO SCH ×2 (10:45→21:10)
[2020-08-19] MEDS: ASCORBIC ACID 500 MG TAB PO SCH ×2 (10:45→21:10)
[2020-08-19] MEDS: SENNOSIDES/DOCUSATE SODIUM 8.6/50 MG TAB FEEDTUBE SCH ×2 (10:50→21:10)
[2020-08-19 11:36] LABS: Alanine Aminotransferase 114 units/L (7-56); BUN/Creatinine Ratio 54; Blood Urea Nitrogen 43 mg/dL (9-20); Calcium 7.9 mg/dL (8.4-10.2); Hemolysis Index 0
[2020-08-19] MEDS: SCOPOLAMINE TRANSDERMAL PATCH 72 HR TD SCH (11:36)
--- NOTE | 2020-08-19 12:06 | Progress Note ---
Assessment and Plan Cultures: 07/28/2020 blood culture: C albicans, later addended to C parapsilosis 07/28/2020 urine culture: No growth COVID PCR: negative 07/31/2020 blood culture: Coag negative staph in 1 of 4 bottles (contaminant) 08/02/2020 blood culture: No growth 08/06/2020 Resp culture: normal resp hawk 08/06/2020 BAL AFB stain: negative 08/06/2020 BAL fungal culture: stain positive, culture in process. 08/16/2020 pleural fluid: 425 WBC, 3000 RBC. Pending A/P: 69-year-old residential resident with quadriplegia, spinal cord injury, was brought in due to fever and sepsis: #Septic shock: Resolved likely due to candidemia +/- pneumonia. New fever 08/18 ? #Candidemia: Unclear source. ?IV line. Transthoracic echo without vegetation. Repeat blood culture no growth. Completed fluconazole course for Jennyfer albicans. Dr Simmons reviewed the scanned lab section on 08/17/2020 and noted that b lood culture done on 07/28/2020 was identified as Jennyfer parapsilosis resistant to fluconazole. In the microbiology section, it continues to be listed as Jennyfer albicans which is typically susceptible to fluconazole. Lab did not notify us about the error or addended report. Considering this discrepancy, best to treat with IV micafungin for 14 days. D/W pharmacy. #Pneumonia: CT chest showed patchy airspace disease suggestive of possible aspiration. Chest x-ray with left lung whiteout, got bronch with suctioning of mucous plug, cultures with normal resp hawk. Treated with abx. R epeat CXR increased in pleuroparenchimal opacities. #B/L pleural effusions: s/p thoracentesis on 08/16/2020, about 800 cc of clear straw colored fluid drained. #UTI with chronic indwelling catheter: s/p abx #Acute hypoxic respiratory failure: On mechanical ventilation via trach. Noted some desaturation overnight on the vent Fio2 45%, p8 #Transaminitis: now increased again with rise in alkaline phosphatase. #Sacral decubitus ulcer: Continue wound care, offloading as possible Recs: -check blood culture, sputum culture, UA, procal, CRP -IV micafungin 100 mg daily ending 08/31/2020 -increased LFTs, RUQ US no GB stone or dilation -S/p trach/PEG -Monitor fever, if continues will add vancomycin/cefepime -Monitor mentation Kavitha Reyes MD [facility] ([facility]) Office [phone] Subjective Date of service: 08/19/20 Principal diagnosis: Ac. encephalopathy; Ac. hypoxemic resp failure; Septic Shock; PNA; UTI; [place] Interval history: Patient remains in the vent rate, FiO2 45%, PEEP of 8, noted some desaturations overnight and bradycardia. Also some worsening altered mental status with somnolence. No new fever T-max 101. Objective - Exam Narrative Exam: General appearance: Sedated on the ventilator Eyes: anicteric sclerae, moist conjunctivae; no lid-lag; PERRLA HENT: Normocephalic, Atraumatic; normal external ears, nares open, oropharynx endotracheal tube in place Neck: Trach Lungs: Bilateral rhonchi CV: RRR no murmur Abdomen: Soft, non-tender Extremities: Bilateral leg edema, bilateral hands edema Skin: No rash. Psych: Sedated Neuro: sedated Brennan in place - Constitutional Vitals: Vital Signs Temp Pulse Resp BP Pulse Ox 97.8 F 92 H 22 153/79 100 08/19/20 03:45 08/19/20 11:01 08/19/20 11:01 08/19/20 11:01 08/19/20 11:01 Temperature -Last 24 Hours Temperature 97.8 F Temperature 98.8 F Temperature 98.4 F Temperature 97.8 F - Labs CBC & Chem 7: 08/18/20 06:46 08/19/20 09:56 Labs: Abnormal lab results 08/18/20 08/18/20 08/19/20 Range/Units 17:47 23:19 05:31 BUN (9-20) mg/dL Glucose (75-100) mg/dL POC Glucose 178 H 209 H 211 H (70-105) mg/dL Calcium (8.4-10.2) mg/dL AST (5-40) units/L ALT (7-56) units/L Alkaline Phosphatase (35-129) units/L Total Protein (6.3-8.2) g/dL Albumin (3.9-5) g/dL 08/19/20 Range/Units 09:56 BUN 43 H (9-20) mg/dL Glucose 241 H (75-100) mg/dL POC Glucose (70-105) mg/dL Calcium 7.9 L (8.4-10.2) mg/dL AST 77 H (5-40) units/L ALT 114 H (7-56) units/L Alkaline Phosphatase 621 H (35-129) units/L Total Protein 6.0 L (6.3-8.2) g/dL Albumin 2.0 L (3.9-5) g/dL
--- NOTE | 2020-08-19 13:35 | Progress Note ---
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 500 mg 08/01/20 22:00 08/19/20 10:45 Ascorbic Acid 500 Mg Tab PO 500 mg BID [place] Administration Bisacodyl 10 mg 08/16/20 14:28 Bisacodyl 10 Mg Rect Supp MN QDAY PRN Constipation Dextrose 50 ml 07/29/20 15:46 08/15/20 10:45 Dextrose 50% In Water (25gm) 50 Ml Syringe IV 50 ml Q30MIN PRN Administration Hypoglycemia Protocol Enoxaparin Sodium 40 mg 08/17/20 10:00 08/19/20 10:40 Enoxaparin 40 Mg/0.4 Ml Inj SUB-Q 40 mg QDAY@1000 [place] Administration Famotidine 20 mg 07/30/20 10:00 08/19/20 10:45 Famotidine 20 Mg Tab PO 20 mg BID [place] Administration Hydralazine HCl 10 mg 08/07/20 10:49 Hydralazine 20 Mg/1 Ml Inj IV Q4HR PRN Give if SBP>180 DBP>100 Hydralazine HCl 10 mg 08/18/20 14:00 08/19/20 06:40 Hydralazine 10 Mg Tab PO 10 mg Q8HR [place] Administration Hydromorphone HCl 1 mg 08/07/20 12:28 08/12/20 18:19 Hydromorphone 1 Mg/1 Ml Inj IV 1 mg Q4H PRN Administration Pain , Severe (7-10) Hydrophilic Ointment 1 applic 07/28/20 09:30 Lip Therapy Vaseline TP Q2H PRN Dry Lips Micafungin Sodium 100 mg/ 100 mls @ 100 mls/hr 08/17/20 12:00 08/18/20 13:41 Sodium Chloride IV 08/31/20 12:59 Infused Q24H [facility] Infusion Protocol Insulin Human Lispro 0 unit 08/04/20 12:00 08/19/20 06:15 Insulin Lispro 100 Unit/Ml SUB-Q 4 unit Q6HR [facility] Administration Protocol Metoprolol Tartrate 50 mg 08/17/20 10:00 08/19/20 10:40 Metoprolol Tartrate 50 Mg Tab PO 50 mg BID [place] Administration Multi-Ingred Cream/Lotion/Oil/Oint 1 applic 07/28/20 09:30 Mineral Oil/Petrolatum, White Ophth Oint 3.5 Gm OU Q4H PRN Dry Eye(s) Scopolamine 1 each 08/07/20 13:00 08/19/20 11:36 Scopolamine Transdermal Patch 72 Hr TD 1 each Q3D [place] Administration Senna/Docusate Sodium 1 tab 07/28/20 22:00 08/19/20 10:50 Sennosides/Docusate Sodium 8.6/50 Mg Tab FEEDTUBE 1 tab BID [place] Administration Simple Syrup 15 ml 07/29/20 09:55 Simple Syrup 15 Ml FEEDTUBE PRN PRN Hypoglycemia Simple Syrup 30 ml 07/29/20 09:55 Simple Syrup 15 Ml FEEDTUBE PRN PRN Hypoglycemia Sodium Bicarbonate 325 mg 07/29/20 09:55 Sodium Bicarbonate 325 Mg Tab FEEDTUBE PRN PRN For Clogged Feeding Tube Sodium Chloride 10 ml 07/28/20 22:00 08/19/20 10:50 Sodium Chloride 0.9% 10 Ml Flush Syringe IV 10 ml BID [place] Administration Sodium Chloride 10 ml 07/28/20 14:27 Sodium Chloride 0.9% 10 Ml Flush Syringe IV PRN PRN LINE FLUSH Zinc Sulfate 220 mg 08/01/20 15:00 08/19/20 10:45 Zinc Sulfate 220 Mg Cap PO 220 mg BID [place] Administration Nutrition/Malnutrition Assess - Dietary Evaluation Nutrition/Malnutrition Findings: Nutrition Notes Start: 07/29/20 09:47 Freq: Status: Active Protocol: Document 08/17/20 11:01 RACHAEL (Rec: 08/17/20 11:05 RACHAEL [id number]) Nutrition Notes Initial or Follow up Reassessment Current Diagnosis Acute Kidney Injury, Respiratory Failure Other Pertinent Diagnosis Acute encephalopathy, Pneu, UTI, Quadriplegia Current Diet Vital AF 1.2 at 65 ml/hr Labs/Tests BG 205 Pertinent Medications Humalog Height 6 ft Weight 79.2 kg Circle Body Weight (kg) 80.90 BMI 23.6 Weight Status Appropriate Subjective/Other Information FU for TF tolerance. Observed TF running at goal rate and pt tolerating. Percent of energy/protein needs met: 98%/100% Burn Absent Trauma Absent Current % PO Negligible Minimum of two criteria No Fluid Accumulation Moderate to Severe (severe) #2 Nutrition Diagnosis Increased nutrient needs ( specify in comment below) Diagnosis Progress(for reassessment Continues documentation) #1 Nutrition Diagnosis Inadequate oral intake Diagnosis Progress(for reassessment Continues documentation) Is patient on ventilator? Yes Is Patient Ambulatory and/or Out of Bed No [facility] [phone] Calculation Used for Recommendations [facility] Additional Notes Pro needs 1.2-2g/k-163g/ day Fluid needs 1ml/kcal Nutrition Intervention Change Diet Order: Continue Nutrition Support: Continue Vital AF 1.2 at 65ml/ hr with 100 ml water flush q4h . Kcal 1,872 Protein (gm) 117 Fluid (mL) 1,265 Add Supplement/Snack (indicate name/kcal Reji BID /protein ) Provides kCal: 190 Provides Protein (gm) 5 Goal #1 TF tolerance Goal #2 TF to meet at least 80% energy and pro needs Anticipated Discharge Needs: Unable to determine at this time Follow-Up By: 08/22/20 Additional Comments FU for TF tolerance, BG, Reji administration
[2020-08-19] MEDS: MICAFUNGIN 100 MG in SODIUM CHLORIDE 0.9% 100 ML IV SCH (14:14)
[2020-08-19 15:14] LABS: Bacteria,Urine 1+ /HPF (Negative); Bilirubin,Urine NEG (Negative); Blood,Urine SM (Negative); Color,Urine Yellow (Yellow); Mucus,Urine FEW /HPF; Urobilinogen,Urine < 2.0 mg/dL (<2.0)
--- NOTE | 2020-08-19 19:02 | Progress Note ---
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 HDL Cholesterol Arterial Blood Glucose 227 H Arterial Blood Ionized Calcium Urine WBC (Auto) Salicylates Crossmatch 08/04/20 08/04/20 08/04/20 05:17 11:52 11:53 WBC RBC Hgb Hct MCV MCH MCHC RDW Plt Count Seg Neuts % (Manual) Lymphocytes % (Manual) Seg Neutrophils # Man Lymphocytes # (Manual) Haptoglobin PT INR ABG pH POC ABG pCO2 POC ABG pO2 ABG pO2 ABG O2 Saturation ABG Hemoglobin ABG Oxyhemoglobin ABG Sodium ABG Potassium ABG Chloride ABG Glucose Oxyhemoglobin Carboxyhemoglobin Sodium Potassium Chloride Carbon Dioxide BUN Creatinine Glucose POC Glucose 224 H 253 H 237 H Hemoglobin A1c Lactic Acid Calcium Ionized Calcium Phosphorus AST ALT Alkaline Phosphatase Ammonia Lactate Dehydrogenase Total Creatine Kinase Troponin T C-Reactive Protein Total Protein Albumin Triglycerides LDL Cholesterol Direct HDL Cholesterol Arterial Blood Glucose Arterial Blood Ionized Calcium Urine WBC (Auto) Salicylates Crossmatch 08/04/20 08/04/20 08/04/20 15:35 16:25 17:45 WBC 21.5 H RBC 2.10 L Hgb 7.3 L Hct 22.0 L MCV MCH 33 H MCHC 37 H RDW 17.2 H Plt Count 133 L Seg Neuts % (Manual) Lymphocytes % (Manual) Seg Neutrophils # Man Lymphocytes # (Manual) Haptoglobin PT INR ABG pH POC ABG pCO2 POC ABG pO2 ABG pO2 ABG O2 Saturation ABG Hemoglobin ABG Oxyhemoglobin ABG Sodium ABG Potassium ABG Chloride ABG Glucose Oxyhemoglobin Carboxyhemoglobin Sodium Potassium Chloride Carbon Dioxide BUN Creatinine Glucose POC Glucose 230 H 218 H Hemoglobin A1c Lactic Acid Calcium Ionized Calcium Phosphorus AST ALT Alkaline Phosphatase Ammonia Lactate Dehydrogenase Total Creatine Kinase Troponin T C-Reactive Protein Total Protein Albumin Triglycerides LDL Cholesterol Direct HDL Cholesterol Arterial Blood Glucose Arterial Blood Ionized Calcium Urine WBC (Auto) Salicylates Crossmatch 08/04/20 08/05/20 08/05/20 23:11 03:28 05:25 WBC RBC Hgb Hct MCV MCH MCHC RDW Plt Count Seg Neuts % (Manual) Lymphocytes % (Manual) Seg Neutrophils # Man Lymphocytes # (Manual) Haptoglobin PT INR ABG pH POC ABG pCO2 POC ABG pO2 82.1 L ABG pO2 ABG O2 Saturation ABG Hemoglobin 8.6 L ABG Oxyhemoglobin 93.7 L ABG Sodium ABG Potassium ABG Chloride 113.0 H ABG Glucose 205 H Oxyhemoglobin Carboxyhemoglobin Sodium Potassium Chloride Carbon Dioxide BUN Creatinine Glucose POC Glucose 198 H 213 H Hemoglobin A1c Lactic Acid Calcium Ionized Calcium Phosphorus AST ALT Alkaline Phosphatase Ammonia Lactate Dehydrogenase Total Creatine Kinase Troponin T C-Reactive Protein Total Protein Albumin Triglycerides LDL Cholesterol Direct HDL Cholesterol Arterial Blood Glucose 205 H Arterial Blood Ionized Calcium Urine WBC (Auto) Salicylates Crossmatch 08/05/20 08/05/20 08/05/20 08:48 08:48 10:55 WBC 14.3 H RBC 2.76 L Hgb 8.1 L Hct 24.8 L MCV MCH MCHC RDW 17.4 H Plt Count 138 L Seg Neuts % (Manual) 97.0 H Lymphocytes % (Manual) 1.0 L Seg Neutrophils # Man 13.9 H Lymphocytes # (Manual) 0.1 L Haptoglobin PT INR ABG pH POC ABG pCO2 POC ABG pO2 158.7 H ABG pO2 ABG O2 Saturation ABG Hemoglobin 7.8 L ABG Oxyhemoglobin ABG Sodium ABG Potassium ABG Chloride 114.0 H ABG Glucose 242 H Oxyhemoglobin Carboxyhemoglobin Sodium 146 H Potassium Chloride 110.1 H Carbon Dioxide BUN 56 H Creatinine Glucose 219 H POC Glucose Hemoglobin A1c Lactic Acid Calcium Ionized Calcium Phosphorus AST ALT Alkaline Phosphatase 192 H Ammonia Lactate Dehydrogenase Total Creatine Kinase Troponin T C-Reactive Protein Total Protein 5.8 L Albumin 2.0 L Triglycerides LDL Cholesterol Direct HDL Cholesterol Arterial Blood Glucose 242 H Arterial Blood Ionized Calcium Urine WBC (Auto) Salicylates Crossmatch 08/05/20 08/05/20 08/05/20 11:12 11:30 17:08 WBC RBC Hgb Hct MCV MCH MCHC RDW Plt Count Seg Neuts % (Manual) Lymphocytes % (Manual) Seg Neutrophils # Man Lymphocytes # (Manual) Haptoglobin PT INR ABG pH POC ABG pCO2 POC ABG pO2 147.5 H ABG pO2 ABG O2 Saturation ABG Hemoglobin 7.5 L ABG Oxyhemoglobin 98.1 H ABG Sodium ABG Potassium ABG Chloride 113.0 H ABG Glucose 248 H Oxyhemoglobin Carboxyhemoglobin Sodium Potassium Chloride Carbon Dioxide BUN Creatinine Glucose POC Glucose 238 H 239 H Hemoglobin A1c Lactic Acid Calcium Ionized Calcium Phosphorus AST ALT Alkaline Phosphatase Ammonia Lactate Dehydrogenase Total Creatine Kinase Troponin T C-Reactive Protein Total Protein Albumin Triglycerides LDL Cholesterol Direct HDL Cholesterol Arterial Blood Glucose 248 H Arterial Blood Ionized Calcium Urine WBC (Auto) Salicylates Crossmatch 08/05/20 08/05/20 08/06/20 23:17 Unknown 05:12 WBC RBC Hgb Hct MCV MCH MCHC RDW Plt Count Seg Neuts % (Manual) Lymphocytes % (Manual) Seg Neutrophils # Man Lymphocytes # (Manual) Haptoglobin PT INR ABG pH POC ABG pCO2 POC ABG pO2 ABG pO2 ABG O2 Saturation ABG Hemoglobin ABG Oxyhemoglobin ABG Sodium ABG Potassium ABG Chloride ABG Glucose Oxyhemoglobin Carboxyhemoglobin Sodium Potassium Chloride 109.2 H Carbon Dioxide BUN 51 H Creatinine Glucose 229 H POC Glucose 200 H 145 H Hemoglobin A1c Lactic Acid Calcium Ionized Calcium Phosphorus AST ALT Alkaline Phosphatase Ammonia Lactate Dehydrogenase Total Creatine Kinase Troponin T C-Reactive Protein Total Protein Albumin Triglycerides LDL Cholesterol Direct HDL Cholesterol Arterial Blood Glucose Arterial Blood Ionized Calcium Urine WBC (Auto) Salicylates Crossmatch 08/06/20 08/06/20 08/06/20 05:21 10:00 11:28 WBC RBC Hgb Hct MCV MCH MCHC RDW Plt Count Seg Neuts % (Manual) Lymphocytes % (Manual) Seg Neutrophils # Man Lymphocytes # (Manual) Haptoglobin PT INR ABG pH 7.301 L 7.308 L POC ABG pCO2 49.5 H 49.1 H POC ABG pO2 178.4 H ABG pO2 ABG O2 Saturation ABG Hemoglobin 7.5 L 7.1 L ABG Oxyhemoglobin 98.8 H ABG Sodium ABG Potassium ABG Chloride 112.0 H 112.0 H ABG Glucose 149 H 162 H Oxyhemoglobin Carboxyhemoglobin Sodium Potassium Chloride Carbon Dioxide BUN Creatinine Glucose POC Glucose 158 H Hemoglobin A1c Lactic Acid Calcium Ionized Calcium Phosphorus AST ALT Alkaline Phosphatase Ammonia Lactate Dehydrogenase Total Creatine Kinase Troponin T C-Reactive Protein Total Protein Albumin Triglycerides LDL Cholesterol Direct HDL Cholesterol Arterial Blood Glucose 149 H 162 H Arterial Blood Ionized Calcium Urine WBC (Auto) Salicylates Crossmatch 08/06/20 08/06/20 08/06/20 17:42 23:56 Unknown WBC 13.0 H RBC 2.38 L Hgb 7.1 L Hct 21.5 L MCV MCH MCHC RDW 17.6 H Plt Count Seg Neuts % (Manual) Lymphocytes % (Manual) Seg Neutrophils # Man Lymphocytes # (Manual) Haptoglobin PT INR ABG pH POC ABG pCO2 POC ABG pO2 ABG pO2 ABG O2 Saturation ABG Hemoglobin ABG Oxyhemoglobin ABG Sodium ABG Potassium ABG Chloride ABG Glucose Oxyhemoglobin Carboxyhemoglobin Sodium Potassium Chloride Carbon Dioxide BUN Creatinine Glucose POC Glucose 179 H 259 H Hemoglobin A1c Lactic Acid Calcium Ionized Calcium Phosphorus AST ALT Alkaline Phosphatase Ammonia Lactate Dehydrogenase Total Creatine Kinase Troponin T C-Reactive Protein Total Protein Albumin Triglycerides LDL Cholesterol Direct HDL Cholesterol Arterial Blood Glucose Arterial Blood Ionized Calcium Urine WBC (Auto) Salicylates Crossmatch 08/07/20 08/07/20 08/07/20 04:00 04:05 04:05 WBC RBC 2.32 L Hgb 7.1 L Hct 20.9 L MCV MCH MCHC RDW 17.9 H Plt Count Seg Neuts % (Manual) Lymphocytes % (Manual) Seg Neutrophils # Man Lymphocytes # (Manual) Haptoglobin PT INR ABG pH POC ABG pCO2 POC ABG pO2 150.6 H ABG pO2 ABG O2 Saturation ABG Hemoglobin 8.0 L ABG Oxyhemoglobin 98.4 H ABG Sodium 146.7 H ABG Potassium ABG Chloride 114.0 H ABG Glucose 201 H Oxyhemoglobin Carboxyhemoglobin Sodium 151 H Potassium Chloride 114.3 H Carbon Dioxide BUN 63 H Creatinine Glucose 198 H POC Glucose Hemoglobin A1c Lactic Acid Calcium Ionized Calcium Phosphorus AST 54 H ALT Alkaline Phosphatase 213 H Ammonia Lactate Dehydrogenase Total Creatine Kinase Troponin T C-Reactive Protein Total Protein 6.1 L Albumin 2.0 L Triglycerides LDL Cholesterol Direct HDL Cholesterol Arterial Blood Glucose 201 H Arterial Blood Ionized Calcium Urine WBC (Auto) Salicylates Crossmatch 08/07/20 08/07/20 08/07/20 05:34 11:43 14:30 WBC RBC Hgb Hct MCV MCH MCHC RDW Plt Count Seg Neuts % (Manual) Lymphocytes % (Manual) Seg Neutrophils # Man Lymphocytes # (Manual) Haptoglobin PT INR ABG pH POC ABG pCO2 POC ABG pO2 ABG pO2 62.9 L ABG O2 Saturation 86.7 L ABG Hemoglobin 7.1 L ABG Oxyhemoglobin ABG Sodium ABG Potassium ABG Chloride ABG Glucose Oxyhemoglobin 85.0 L Carboxyhemoglobin Sodium Potassium Chloride Carbon Dioxide BUN Creatinine Glucose POC Glucose 160 H 201 H Hemoglobin A1c Lactic Acid Calcium Ionized Calcium Phosphorus AST ALT Alkaline Phosphatase Ammonia Lactate Dehydrogenase Total Creatine Kinase Troponin T C-Reactive Protein Total Protein Albumin Triglycerides LDL Cholesterol Direct HDL Cholesterol Arterial Blood Glucose Arterial Blood Ionized Calcium Urine WBC (Auto) Salicylates Crossmatch 08/07/20 08/07/20 08/08/20 17:57 23:12 05:38 WBC RBC Hgb Hct MCV MCH MCHC RDW Plt Count Seg Neuts % (Manual) Lymphocytes % (Manual) Seg Neutrophils # Man Lymphocytes # (Manual) Haptoglobin PT INR ABG pH POC ABG pCO2 POC ABG pO2 ABG pO2 ABG O2 Saturation ABG Hemoglobin ABG Oxyhemoglobin ABG Sodium ABG Potassium ABG Chloride ABG Glucose Oxyhemoglobin Carboxyhemoglobin Sodium Potassium Chloride Carbon Dioxide BUN Creatinine Glucose POC Glucose 242 H 246 H 135 H Hemoglobin A1c Lactic Acid Calcium Ionized Calcium Phosphorus AST ALT Alkaline Phosphatase Ammonia Lactate Dehydrogenase Total Creatine Kinase Troponin T C-Reactive Protein Total Protein Albumin Triglycerides LDL Cholesterol Direct HDL Cholesterol Arterial Blood Glucose Arterial Blood Ionized Calcium Urine WBC (Auto) Salicylates Crossmatch 08/08/20 08/08/20 08/08/20 09:49 11:40 17:28 WBC RBC Hgb Hct MCV MCH MCHC RDW Plt Count Seg Neuts % (Manual) Lymphocytes % (Manual) Seg Neutrophils # Man Lymphocytes # (Manual) Haptoglobin PT INR ABG pH POC ABG pCO2 POC ABG pO2 ABG pO2 ABG O2 Saturation ABG Hemoglobin 6.9 L ABG Oxyhemoglobin ABG Sodium 146.1 H ABG Potassium ABG Chloride 114.0 H ABG Glucose 192 H Oxyhemoglobin Carboxyhemoglobin Sodium Potassium Chloride Carbon Dioxide BUN Creatinine Glucose POC Glucose 187 H 175 H Hemoglobin A1c Lactic Acid Calcium Ionized Calcium Phosphorus AST ALT Alkaline Phosphatase Ammonia Lactate Dehydrogenase Total Creatine Kinase Troponin T C-Reactive Protein Total Protein Albumin Triglycerides LDL Cholesterol Direct HDL Cholesterol Arterial Blood Glucose 192 H Arterial Blood Ionized Calcium Urine WBC (Auto) Salicylates Crossmatch 08/09/20 08/09/20 08/09/20 03:41 06:10 11:58 WBC RBC Hgb Hct MCV MCH MCHC RDW Plt Count Seg Neuts % (Manual) Lymphocytes % (Manual) Seg Neutrophils # Man Lymphocytes # (Manual) Haptoglobin PT INR ABG pH POC ABG pCO2 POC ABG pO2 ABG pO2 ABG O2 Saturation ABG Hemoglobin 6.9 L ABG Oxyhemoglobin ABG Sodium 145.8 H ABG Potassium 4.6 H ABG Chloride 113.0 H ABG Glucose 113 H Oxyhemoglobin Carboxyhemoglobin Sodium Potassium Chloride Carbon Dioxide BUN Creatinine Glucose POC Glucose 118 H 124 H Hemoglobin A1c Lactic Acid Calcium Ionized Calcium Phosphorus AST ALT Alkaline Phosphatase Ammonia Lactate Dehydrogenase Total Creatine Kinase Troponin T C-Reactive Protein Total Protein Albumin Triglycerides LDL Cholesterol Direct HDL Cholesterol Arterial Blood Glucose 113 H Arterial Blood Ionized Calcium Urine WBC (Auto) Salicylates Crossmatch 08/09/20 08/09/20 08/09/20 14:05 14:05 17:42 WBC RBC 3.58 L Hgb 10.5 L D Hct 31.6 L D MCV MCH MCHC RDW 17.8 H Plt Count 125 L Seg Neuts % (Manual) Lymphocytes % (Manual) Seg Neutrophils # Man Lymphocytes # (Manual) Haptoglobin PT INR ABG pH POC ABG pCO2 POC ABG pO2 ABG pO2 ABG O2 Saturation ABG Hemoglobin ABG Oxyhemoglobin ABG Sodium ABG Potassium ABG Chloride ABG Glucose Oxyhemoglobin Carboxyhemoglobin Sodium Potassium Chloride 111.2 H Carbon Dioxide BUN 74 H Creatinine Glucose 137 H POC Glucose 139 H Hemoglobin A1c Lactic Acid Calcium Ionized Calcium Phosphorus AST ALT Alkaline Phosphatase Ammonia Lactate Dehydrogenase Total Creatine Kinase Troponin T C-Reactive Protein Total Protein Albumin Triglycerides LDL Cholesterol Direct HDL Cholesterol Arterial Blood Glucose Arterial Blood Ionized Calcium Urine WBC (Auto) Salicylates Crossmatch 08/09/20 08/09/20 08/09/20 21:07 21:25 23:26 WBC RBC Hgb Hct MCV MCH MCHC RDW Plt Count Seg Neuts % (Manual) Lymphocytes % (Manual) Seg Neutrophils # Man Lymphocytes # (Manual) Haptoglobin PT 15.5 H INR 1.17 H ABG pH POC ABG pCO2 POC ABG pO2 ABG pO2 ABG O2 Saturation ABG Hemoglobin ABG Oxyhemoglobin ABG Sodium ABG Potassium ABG Chloride ABG Glucose Oxyhemoglobin Carboxyhemoglobin Sodium Potassium Chloride Carbon Dioxide BUN Creatinine Glucose POC Glucose 156 H 167 H Hemoglobin A1c Lactic Acid Calcium Ionized Calcium Phosphorus AST ALT Alkaline Phosphatase Ammonia Lactate Dehydrogenase Total Creatine Kinase Troponin T C-Reactive Protein Total Protein Albumin Triglycerides LDL Cholesterol Direct HDL Cholesterol Arterial Blood Glucose Arterial Blood Ionized Calcium Urine WBC (Auto) Salicylates Crossmatch 08/10/20 08/10/20 08/10/20 03:04 12:19 14:53 WBC RBC 2.06 L Hgb 6.1 L D Hct 18.6 L* D MCV MCH MCHC RDW 18.3 H Plt Count 137 L Seg Neuts % (Manual) Lymphocytes % (Manual) Seg Neutrophils # Man Lymphocytes # (Manual) Haptoglobin PT INR ABG pH POC ABG pCO2 POC ABG pO2 ABG pO2 ABG O2 Saturation ABG Hemoglobin 6.7 L ABG Oxyhemoglobin ABG Sodium ABG Potassium ABG Chloride 111.0 H ABG Glucose 116 H Oxyhemoglobin Carboxyhemoglobin Sodium Potassium Chloride Carbon Dioxide BUN Creatinine Glucose POC Glucose 57 L Hemoglobin A1c Lactic Acid Calcium Ionized Calcium Phosphorus AST ALT Alkaline Phosphatase Ammonia Lactate Dehydrogenase Total Creatine Kinase Troponin T C-Reactive Protein Total Protein Albumin Triglycerides LDL Cholesterol Direct HDL Cholesterol Arterial Blood Glucose 116 H Arterial Blood Ionized Calcium Urine WBC (Auto) Salicylates Crossmatch 08/10/20 08/10/20 08/10/20 14:53 18:08 23:11 WBC RBC Hgb Hct MCV MCH MCHC RDW Plt Count Seg Neuts % (Manual) Lymphocytes % (Manual) Seg Neutrophils # Man Lymphocytes # (Manual) Haptoglobin PT INR ABG pH POC ABG pCO2 POC ABG pO2 ABG pO2 ABG O2 Saturation ABG Hemoglobin ABG Oxyhemoglobin ABG Sodium ABG Potassium ABG Chloride ABG Glucose Oxyhemoglobin Carboxyhemoglobin Sodium 146 H Potassium Chloride 111.1 H Carbon Dioxide BUN 72 H Creatinine 1.4 H Glucose 158 H POC Glucose 68 L Hemoglobin A1c Lactic Acid Calcium 8.2 L Ionized Calcium Phosphorus AST ALT Alkaline Phosphatase Ammonia Lactate Dehydrogenase Total Creatine Kinase Troponin T C-Reactive Protein Total Protein Albumin Triglycerides LDL Cholesterol Direct HDL Cholesterol Arterial Blood Glucose Arterial Blood Ionized Calcium Urine WBC (Auto) Salicylates Crossmatch See Detail 08/11/20 08/11/20 08/11/20 04:12 05:34 05:36 WBC RBC Hgb Hct MCV MCH MCHC RDW Plt Count Seg Neuts % (Manual) Lymphocytes % (Manual) Seg Neutrophils # Man Lymphocytes # (Manual) Haptoglobin PT INR ABG pH POC ABG pCO2 POC ABG pO2 397.7 H ABG pO2 ABG O2 Saturation ABG Hemoglobin 7.6 L ABG Oxyhemoglobin 98.8 H ABG Sodium ABG Potassium ABG Chloride 113.0 H ABG Glucose 60 L Oxyhemoglobin Carboxyhemoglobin Sodium Potassium Chloride Carbon Dioxide BUN Creatinine Glucose POC Glucose 55 L 51 L Hemoglobin A1c Lactic Acid Calcium Ionized Calcium Phosphorus AST ALT Alkaline Phosphatase Ammonia Lactate Dehydrogenase Total Creatine Kinase Troponin T C-Reactive Protein Total Protein Albumin Triglycerides LDL Cholesterol Direct HDL Cholesterol Arterial Blood Glucose 60 L Arterial Blood Ionized Calcium 4.4 L Urine WBC (Auto) Salicylates Crossmatch 08/11/20 08/11/20 08/11/20 08:40 08:40 10:23 WBC RBC 2.14 L Hgb 6.2 L 6.3 L Hct 18.8 L* 19.0 L* MCV MCH MCHC RDW 17.6 H Plt Count Seg Neuts % (Manual) Lymphocytes % (Manual) Seg Neutrophils # Man Lymphocytes # (Manual) Haptoglobin PT INR ABG pH POC ABG pCO2 POC ABG pO2 ABG pO2 ABG O2 Saturation ABG Hemoglobin ABG Oxyhemoglobin ABG Sodium ABG Potassium ABG Chloride ABG Glucose Oxyhemoglobin Carboxyhemoglobin Sodium 147 H Potassium Chloride 112.3 H Carbon Dioxide BUN 62 H Creatinine 1.5 H Glucose 73 L POC Glucose Hemoglobin A1c Lactic Acid Calcium 7.9 L Ionized Calcium Phosphorus AST ALT Alkaline Phosphatase Ammonia Lactate Dehydrogenase Total Creatine Kinase Troponin T C-Reactive Protein Total Protein Albumin Triglycerides LDL Cholesterol Direct HDL Cholesterol Arterial Blood Glucose Arterial Blood Ionized Calcium Urine WBC (Auto) Salicylates Crossmatch 08/11/20 08/11/20 08/11/20 11:56 17:43 18:40 WBC RBC Hgb Hct MCV MCH MCHC RDW Plt Count Seg Neuts % (Manual) Lymphocytes % (Manual) Seg Neutrophils # Man Lymphocytes # (Manual) Haptoglobin PT 15.7 H INR 1.19 H ABG pH POC ABG pCO2 POC ABG pO2 ABG pO2 ABG O2 Saturation ABG Hemoglobin ABG Oxyhemoglobin ABG Sodium ABG Potassium ABG Chloride ABG Glucose Oxyhemoglobin Carboxyhemoglobin Sodium Potassium Chloride Carbon Dioxide BUN Creatinine Glucose POC Glucose 53 L 113 H Hemoglobin A1c Lactic Acid Calcium Ionized Calcium Phosphorus AST ALT Alkaline Phosphatase Ammonia Lactate Dehydrogenase Total Creatine Kinase Troponin T C-Reactive Protein Total Protein Albumin Triglycerides LDL Cholesterol Direct HDL Cholesterol Arterial Blood Glucose Arterial Blood Ionized Calcium Urine WBC (Auto) Salicylates Crossmatch 08/11/20 08/11/20 08/11/20 18:40 20:10 22:13 WBC RBC Hgb 6.2 L 6.1 L Hct 18.4 L* 18.3 L* MCV MCH MCHC RDW Plt Count Seg Neuts % (Manual) Lymphocytes % (Manual) Seg Neutrophils # Man Lymphocytes # (Manual) Haptoglobin PT INR ABG pH POC ABG pCO2 POC ABG pO2 163.6 H ABG pO2 ABG O2 Saturation ABG Hemoglobin 7.7 L ABG Oxyhemoglobin 98.3 H ABG Sodium ABG Potassium ABG Chloride 112.0 H ABG Glucose 119 H Oxyhemoglobin Carboxyhemoglobin Sodium Potassium Chloride Carbon Dioxide BUN Creatinine Glucose POC Glucose Hemoglobin A1c Lactic Acid Calcium Ionized Calcium Phosphorus AST ALT Alkaline Phosphatase Ammonia Lactate Dehydrogenase Total Creatine Kinase Troponin T C-Reactive Protein Total Protein Albumin Triglycerides LDL Cholesterol Direct HDL Cholesterol Arterial Blood Glucose 119 H Arterial Blood Ionized Calcium 4.4 L Urine WBC (Auto) Salicylates Crossmatch 08/11/20 08/12/20 08/12/20 23:32 04:43 04:43 WBC RBC Hgb Hct MCV MCH MCHC RDW Plt Count Seg Neuts % (Manual) Lymphocytes % (Manual) Seg Neutrophils # Man Lymphocytes # (Manual) Haptoglobin PT INR ABG pH POC ABG pCO2 POC ABG pO2 ABG pO2 ABG O2 Saturation ABG Hemoglobin ABG Oxyhemoglobin ABG Sodium ABG Potassium ABG Chloride ABG Glucose Oxyhemoglobin Carboxyhemoglobin Sodium Potassium Chloride Carbon Dioxide BUN Creatinine Glucose POC Glucose 106 H Hemoglobin A1c Lactic Acid Calcium Ionized Calcium Phosphorus AST 57 H ALT Alkaline Phosphatase 288 H Ammonia Lactate Dehydrogenase 239 H Total Creatine Kinase Troponin T C-Reactive Protein Total Protein 6.0 L Albumin 1.7 L Triglycerides LDL Cholesterol Direct HDL Cholesterol Arterial Blood Glucose Arterial Blood Ionized Calcium Urine WBC (Auto) Salicylates Crossmatch 08/12/20 08/12/20 08/12/20 04:43 04:53 05:07 WBC RBC 3.03 L Hgb 8.5 L Hct 25.6 L D MCV MCH MCHC RDW 18.4 H Plt Count Seg Neuts % (Manual) 88.0 H Lymphocytes % (Manual) 6.0 L Seg Neutrophils # Man Lymphocytes # (Manual) 0.4 L Haptoglobin 420 H PT INR ABG pH POC ABG pCO2 POC ABG pO2 ABG pO2 ABG O2 Saturation ABG Hemoglobin ABG Oxyhemoglobin ABG Sodium ABG Potassium ABG Chloride ABG Glucose Oxyhemoglobin Carboxyhemoglobin Sodium Potassium Chloride Carbon Dioxide BUN Creatinine Glucose POC Glucose 139 H Hemoglobin A1c Lactic Acid Calcium Ionized Calcium Phosphorus AST ALT Alkaline Phosphatase Ammonia Lactate Dehydrogenase Total Creatine Kinase Troponin T C-Reactive Protein Total Protein Albumin Triglycerides LDL Cholesterol Direct HDL Cholesterol Arterial Blood Glucose Arterial Blood Ionized Calcium Urine WBC (Auto) Salicylates Crossmatch 08/12/20 08/12/20 08/12/20 07:55 07:55 11:17 WBC RBC 2.90 L Hgb 8.1 L Hct 24.4 L MCV MCH MCHC RDW 18.9 H Plt Count Seg Neuts % (Manual) Lymphocytes % (Manual) Seg Neutrophils # Man Lymphocytes # (Manual) Haptoglobin PT INR ABG pH POC ABG pCO2 POC ABG pO2 ABG pO2 ABG O2 Saturation ABG Hemoglobin ABG Oxyhemoglobin ABG Sodium ABG Potassium ABG Chloride ABG Glucose Oxyhemoglobin Carboxyhemoglobin Sodium Potassium 3.3 L Chloride 109.8 H Carbon Dioxide BUN 52 H Creatinine Glucose 153 H POC Glucose 150 H Hemoglobin A1c Lactic Acid Calcium 8.1 L Ionized Calcium Phosphorus AST ALT Alkaline Phosphatase Ammonia Lactate Dehydrogenase Total Creatine Kinase Troponin T C-Reactive Protein Total Protein Albumin Triglycerides LDL Cholesterol Direct HDL Cholesterol Arterial Blood Glucose Arterial Blood Ionized Calcium Urine WBC (Auto) Salicylates Crossmatch 08/12/20 08/12/20 08/12/20 13:05 17:29 18:28 WBC RBC Hgb Hct MCV MCH MCHC RDW Plt Count Seg Neuts % (Manual) Lymphocytes % (Manual) Seg Neutrophils # Man Lymphocytes # (Manual) Haptoglobin PT INR ABG pH POC ABG pCO2 POC ABG pO2 ABG pO2 ABG O2 Saturation ABG Hemoglobin ABG Oxyhemoglobin ABG Sodium ABG Potassium ABG Chloride ABG Glucose Oxyhemoglobin Carboxyhemoglobin Sodium Potassium Chloride Carbon Dioxide BUN Creatinine Glucose POC Glucose 143 H 158 H 158 H Hemoglobin A1c Lactic Acid Calcium Ionized Calcium Phosphorus AST ALT Alkaline Phosphatase Ammonia Lactate Dehydrogenase Total Creatine Kinase Troponin T C-Reactive Protein Total Protein Albumin Triglycerides LDL Cholesterol Direct HDL Cholesterol Arterial Blood Glucose Arterial Blood Ionized Calcium Urine WBC (Auto) Salicylates Crossmatch 08/12/20 08/13/20 08/13/20 23:22 05:32 09:58 WBC RBC 2.79 L Hgb 7.9 L Hct 23.5 L MCV MCH MCHC RDW 18.9 H Plt Count Seg Neuts % (Manual) Lymphocytes % (Manual) Seg Neutrophils # Man Lymphocytes # (Manual) Haptoglobin PT INR ABG pH POC ABG pCO2 POC ABG pO2 ABG pO2 ABG O2 Saturation ABG Hemoglobin ABG Oxyhemoglobin ABG Sodium ABG Potassium ABG Chloride ABG Glucose Oxyhemoglobin Carboxyhemoglobin Sodium Potassium Chloride Carbon Dioxide BUN Creatinine Glucose POC Glucose 191 H 131 H Hemoglobin A1c Lactic Acid Calcium Ionized Calcium Phosphorus AST ALT Alkaline Phosphatase Ammonia Lactate Dehydrogenase Total Creatine Kinase Troponin T C-Reactive Protein Total Protein Albumin Triglycerides LDL Cholesterol Direct HDL Cholesterol Arterial Blood Glucose Arterial Blood Ionized Calcium Urine WBC (Auto) Salicylates Crossmatch 08/13/20 08/13/20 08/13/20 09:58 12:07 12:10 WBC RBC Hgb Hct MCV MCH MCHC RDW Plt Count Seg Neuts % (Manual) Lymphocytes % (Manual) Seg Neutrophils # Man Lymphocytes # (Manual) Haptoglobin PT INR ABG pH POC ABG pCO2 POC ABG pO2 ABG pO2 ABG O2 Saturation ABG Hemoglobin ABG Oxyhemoglobin ABG Sodium ABG Potassium ABG Chloride ABG Glucose Oxyhemoglobin Carboxyhemoglobin Sodium Potassium 3.5 L Chloride 109.1 H Carbon Dioxide BUN 51 H Creatinine Glucose 168 H POC Glucose 142 H 159 H Hemoglobin A1c Lactic Acid Calcium 8.0 L Ionized Calcium Phosphorus AST ALT Alkaline Phosphatase Ammonia Lactate Dehydrogenase Total Creatine Kinase Troponin T C-Reactive Protein Total Protein Albumin Triglycerides LDL Cholesterol Direct HDL Cholesterol Arterial Blood Glucose Arterial Blood Ionized Calcium Urine WBC (Auto) Salicylates Crossmatch 08/13/20 08/13/20 08/14/20 17:17 23:17 05:10 WBC RBC Hgb Hct MCV MCH MCHC RDW Plt Count Seg Neuts % (Manual) Lymphocytes % (Manual) Seg Neutrophils # Man Lymphocytes # (Manual) Haptoglobin PT INR ABG pH POC ABG pCO2 POC ABG pO2 ABG pO2 ABG O2 Saturation ABG Hemoglobin ABG Oxyhemoglobin ABG Sodium ABG Potassium ABG Chloride ABG Glucose Oxyhemoglobin Carboxyhemoglobin Sodium Potassium Chloride Carbon Dioxide BUN Creatinine Glucose POC Glucose 137 H 157 H 153 H Hemoglobin A1c Lactic Acid Calcium Ionized Calcium Phosphorus AST ALT Alkaline Phosphatase Ammonia Lactate Dehydrogenase Total Creatine Kinase Troponin T C-Reactive Protein Total Protein Albumin Triglycerides LDL Cholesterol Direct HDL Cholesterol Arterial Blood Glucose Arterial Blood Ionized Calcium Urine WBC (Auto) Salicylates Crossmatch 08/14/20 08/14/20 08/14/20 11:35 12:05 13:01 WBC RBC 2.73 L Hgb 7.7 L Hct 22.6 L MCV 83 L MCH MCHC RDW 18.4 H Plt Count Seg Neuts % (Manual) Lymphocytes % (Manual) Seg Neutrophils # Man Lymphocytes # (Manual) Haptoglobin PT INR ABG pH POC ABG pCO2 POC ABG pO2 ABG pO2 75.1 L ABG O2 Saturation ABG Hemoglobin 7.7 L ABG Oxyhemoglobin ABG Sodium ABG Potassium ABG Chloride ABG Glucose Oxyhemoglobin 94.8 L Carboxyhemoglobin Sodium Potassium Chloride Carbon Dioxide BUN Creatinine Glucose POC Glucose 175 H Hemoglobin A1c Lactic Acid Calcium Ionized Calcium Phosphorus AST ALT Alkaline Phosphatase Ammonia Lactate Dehydrogenase Total Creatine Kinase Troponin T C-Reactive Protein Total Protein Albumin Triglycerides LDL Cholesterol Direct HDL Cholesterol Arterial Blood Glucose Arterial Blood Ionized Calcium Urine WBC (Auto) Salicylates Crossmatch 08/14/20 08/14/20 08/14/20 13:01 17:55 23:25 WBC RBC Hgb Hct MCV MCH MCHC RDW Plt Count Seg Neuts % (Manual) Lymphocytes % (Manual) Seg Neutrophils # Man Lymphocytes # (Manual) Haptoglobin PT INR ABG pH POC ABG pCO2 POC ABG pO2 ABG pO2 ABG O2 Saturation ABG Hemoglobin ABG Oxyhemoglobin ABG Sodium ABG Potassium ABG Chloride ABG Glucose Oxyhemoglobin Carboxyhemoglobin Sodium Potassium Chloride 107.3 H Carbon Dioxide BUN 49 H Creatinine Glucose 191 H POC Glucose 178 H 150 H Hemoglobin A1c Lactic Acid Calcium 7.9 L Ionized Calcium Phosphorus AST ALT Alkaline Phosphatase Ammonia Lactate Dehydrogenase Total Creatine Kinase Troponin T C-Reactive Protein Total Protein Albumin Triglycerides LDL Cholesterol Direct HDL Cholesterol Arterial Blood Glucose Arterial Blood Ionized Calcium Urine WBC (Auto) Salicylates Crossmatch 08/15/20 08/15/20 08/15/20 04:04 10:28 10:38 WBC RBC 2.94 L Hgb 8.3 L Hct 24.6 L MCV MCH MCHC RDW 18.7 H Plt Count 112 L Seg Neuts % (Manual) Lymphocytes % (Manual) Seg Neutrophils # Man Lymphocytes # (Manual) Haptoglobin PT INR ABG pH POC ABG pCO2 POC ABG pO2 ABG pO2 ABG O2 Saturation ABG Hemoglobin ABG Oxyhemoglobin ABG Sodium ABG Potassium ABG Chloride ABG Glucose Oxyhemoglobin Carboxyhemoglobin Sodium Potassium Chloride 107.4 H Carbon Dioxide BUN 47 H Creatinine Glucose 51 L POC Glucose 44 L Hemoglobin A1c Lactic Acid Calcium 8.3 L Ionized Calcium Phosphorus AST ALT Alkaline Phosphatase Ammonia Lactate Dehydrogenase Total Creatine Kinase Troponin T C-Reactive Protein Total Protein Albumin Triglycerides LDL Cholesterol Direct HDL Cholesterol Arterial Blood Glucose Arterial Blood Ionized Calcium Urine WBC (Auto) Salicylates Crossmatch 08/15/20 08/15/20 08/15/20 17:31 23:15 Unknown WBC RBC Hgb Hct MCV MCH MCHC RDW Plt Count Seg Neuts % (Manual) Lymphocytes % (Manual) Seg Neutrophils # Man Lymphocytes # (Manual) Haptoglobin PT INR ABG pH POC ABG pCO2 POC ABG pO2 ABG pO2 77.7 L ABG O2 Saturation ABG Hemoglobin 9.2 L ABG Oxyhemoglobin ABG Sodium ABG Potassium ABG Chloride ABG Glucose Oxyhemoglobin 94.9 L Carboxyhemoglobin Sodium Potassium Chloride Carbon Dioxide BUN Creatinine Glucose POC Glucose 64 L 114 H Hemoglobin A1c Lactic Acid Calcium Ionized Calcium Phosphorus AST ALT Alkaline Phosphatase Ammonia Lactate Dehydrogenase Total Creatine Kinase Troponin T C-Reactive Protein Total Protein Albumin Triglycerides LDL Cholesterol Direct HDL Cholesterol Arterial Blood Glucose Arterial Blood Ionized Calcium Urine WBC (Auto) Salicylates Crossmatch 08/16/20 08/16/20 08/16/20 05:09 08:02 08:02 WBC 4.1 L RBC 2.70 L Hgb 7.6 L Hct 22.9 L MCV MCH MCHC RDW 18.5 H Plt Count Seg Neuts % (Manual) Lymphocytes % (Manual) Seg Neutrophils # Man Lymphocytes # (Manual) Haptoglobin PT INR ABG pH POC ABG pCO2 POC ABG pO2 ABG pO2 ABG O2 Saturation ABG Hemoglobin ABG Oxyhemoglobin ABG Sodium ABG Potassium ABG Chloride ABG Glucose Oxyhemoglobin Carboxyhemoglobin Sodium Potassium Chloride 110.1 H Carbon Dioxide BUN 45 H Creatinine Glucose 187 H POC Glucose 204 H Hemoglobin A1c Lactic Acid Calcium 7.7 L Ionized Calcium Phosphorus AST ALT Alkaline Phosphatase Ammonia Lactate Dehydrogenase Total Creatine Kinase Troponin T C-Reactive Protein Total Protein Albumin Triglycerides LDL Cholesterol Direct HDL Cholesterol Arterial Blood Glucose Arterial Blood Ionized Calcium Urine WBC (Auto) Salicylates Crossmatch 08/16/20 08/16/20 08/17/20 12:28 17:21 00:20 WBC RBC Hgb Hct MCV MCH MCHC RDW Plt Count Seg Neuts % (Manual) Lymphocytes % (Manual) Seg Neutrophils # Man Lymphocytes # (Manual) Haptoglobin PT INR ABG pH POC ABG pCO2 POC ABG pO2 ABG pO2 ABG O2 Saturation ABG Hemoglobin ABG Oxyhemoglobin ABG Sodium ABG Potassium ABG Chloride ABG Glucose Oxyhemoglobin Carboxyhemoglobin Sodium Potassium Chloride Carbon Dioxide BUN Creatinine Glucose POC Glucose 126 H 107 H 194 H Hemoglobin A1c Lactic Acid Calcium Ionized Calcium Phosphorus AST ALT Alkaline Phosphatase Ammonia Lactate Dehydrogenase Total Creatine Kinase Troponin T C-Reactive Protein Total Protein Albumin Triglycerides LDL Cholesterol Direct HDL Cholesterol Arterial Blood Glucose Arterial Blood Ionized Calcium Urine WBC (Auto) Salicylates Crossmatch 08/17/20 08/17/20 08/17/20 06:02 09:40 09:40 WBC RBC 2.78 L Hgb 7.9 L Hct 24.1 L MCV MCH MCHC RDW 19.3 H Plt Count Seg Neuts % (Manual) Lymphocytes % (Manual) Seg Neutrophils # Man Lymphocytes # (Manual) Haptoglobin PT INR ABG pH POC ABG pCO2 POC ABG pO2 ABG pO2 ABG O2 Saturation ABG Hemoglobin ABG Oxyhemoglobin ABG Sodium ABG Potassium ABG Chloride ABG Glucose Oxyhemoglobin Carboxyhemoglobin Sodium Potassium Chloride 107.5 H Carbon Dioxide BUN 42 H Creatinine Glucose 205 H POC Glucose 199 H Hemoglobin A1c Lactic Acid Calcium Ionized Calcium Phosphorus AST 69 H ALT 93 H Alkaline Phosphatase 556 H Ammonia Lactate Dehydrogenase Total Creatine Kinase Troponin T C-Reactive Protein Total Protein 6.2 L Albumin 1.9 L Triglycerides LDL Cholesterol Direct HDL Cholesterol Arterial Blood Glucose Arterial Blood Ionized Calcium Urine WBC (Auto) Salicylates Crossmatch 08/17/20 08/17/20 08/17/20 11:51 12:54 16:50 WBC RBC Hgb Hct MCV MCH MCHC RDW Plt Count Seg Neuts % (Manual) Lymphocytes % (Manual) Seg Neutrophils # Man Lymphocytes # (Manual) Haptoglobin PT INR ABG pH 7.473 H POC ABG pCO2 POC ABG pO2 81.2 L ABG pO2 ABG O2 Saturation ABG Hemoglobin 7.7 L ABG Oxyhemoglobin ABG Sodium ABG Potassium ABG Chloride 110.0 H ABG Glucose 228 H Oxyhemoglobin Carboxyhemoglobin Sodium Potassium Chloride Carbon Dioxide BUN Creatinine Glucose POC Glucose 204 H 188 H Hemoglobin A1c Lactic Acid Calcium Ionized Calcium Phosphorus AST ALT Alkaline Phosphatase Ammonia Lactate Dehydrogenase Total Creatine Kinase Troponin T C-Reactive Protein Total Protein Albumin Triglycerides LDL Cholesterol Direct HDL Cholesterol Arterial Blood Glucose 228 H Arterial Blood Ionized Calcium Urine WBC (Auto) Salicylates Crossmatch 08/17/20 08/18/20 08/18/20 23:07 05:00 05:12 WBC RBC Hgb Hct MCV MCH MCHC RDW Plt Count Seg Neuts % (Manual) Lymphocytes % (Manual) Seg Neutrophils # Man Lymphocytes # (Manual) Haptoglobin PT INR ABG pH 7.480 H POC ABG pCO2 POC ABG pO2 ABG pO2 ABG O2 Saturation ABG Hemoglobin 7.9 L ABG Oxyhemoglobin ABG Sodium ABG Potassium ABG Chloride 111.0 H ABG Glucose 137 H Oxyhemoglobin Carboxyhemoglobin Sodium Potassium Chloride Carbon Dioxide BUN Creatinine Glucose POC Glucose 187 H 118 H Hemoglobin A1c Lactic Acid Calcium Ionized Calcium Phosphorus AST ALT Alkaline Phosphatase Ammonia Lactate Dehydrogenase Total Creatine Kinase Troponin T C-Reactive Protein Total Protein Albumin Triglycerides LDL Cholesterol Direct HDL Cholesterol Arterial Blood Glucose 137 H Arterial Blood Ionized Calcium 4.5 L Urine WBC (Auto) Salicylates Crossmatch 08/18/20 08/18/20 08/18/20 06:46 06:46 08:03 WBC RBC 3.37 L Hgb 9.5 L Hct 29.3 L MCV MCH MCHC RDW 19.3 H Plt Count Seg Neuts % (Manual) Lymphocytes % (Manual) Seg Neutrophils # Man Lymphocytes # (Manual) Haptoglobin PT INR ABG pH POC ABG pCO2 POC ABG pO2 ABG pO2 ABG O2 Saturation ABG Hemoglobin ABG Oxyhemoglobin ABG Sodium ABG Potassium ABG Chloride ABG Glucose Oxyhemoglobin Carboxyhemoglobin Sodium Potassium Chloride 108.2 H Carbon Dioxide BUN 41 H Creatinine Glucose 120 H POC Glucose 111 H Hemoglobin A1c Lactic Acid Calcium Ionized Calcium Phosphorus AST 95 H ALT 122 H Alkaline Phosphatase 738 H Ammonia Lactate Dehydrogenase Total Creatine Kinase Troponin T C-Reactive Protein Total Protein Albumin 1.8 L Triglycerides LDL Cholesterol Direct HDL Cholesterol Arterial Blood Glucose Arterial Blood Ionized Calcium Urine WBC (Auto) Salicylates Crossmatch 08/18/20 08/18/20 08/18/20 11:21 17:47 23:19 WBC RBC Hgb Hct MCV MCH MCHC RDW Plt Count Seg Neuts % (Manual) Lymphocytes % (Manual) Seg Neutrophils # Man Lymphocytes # (Manual) Haptoglobin PT INR ABG pH POC ABG pCO2 POC ABG pO2 ABG pO2 ABG O2 Saturation ABG Hemoglobin ABG Oxyhemoglobin ABG Sodium ABG Potassium ABG Chloride ABG Glucose Oxyhemoglobin Carboxyhemoglobin Sodium Potassium Chloride Carbon Dioxide BUN Creatinine Glucose POC Glucose 151 H 178 H 209 H Hemoglobin A1c Lactic Acid Calcium Ionized Calcium Phosphorus AST ALT Alkaline Phosphatase Ammonia Lactate Dehydrogenase Total Creatine Kinase Troponin T C-Reactive Protein Total Protein Albumin Triglycerides LDL Cholesterol Direct HDL Cholesterol Arterial Blood Glucose Arterial Blood Ionized Calcium Urine WBC (Auto) Salicylates Crossmatch 08/19/20 08/19/20 08/19/20 05:31 09:56 12:16 WBC RBC Hgb Hct MCV MCH MCHC RDW Plt Count Seg Neuts % (Manual) Lymphocytes % (Manual) Seg Neutrophils # Man Lymphocytes # (Manual) Haptoglobin PT INR ABG pH POC ABG pCO2 POC ABG pO2 ABG pO2 ABG O2 Saturation ABG Hemoglobin ABG Oxyhemoglobin ABG Sodium ABG Potassium ABG Chloride ABG Glucose Oxyhemoglobin Carboxyhemoglobin Sodium Potassium Chloride Carbon Dioxide BUN 43 H Creatinine Glucose 241 H POC Glucose 211 H 241 H Hemoglobin A1c Lactic Acid Calcium 7.9 L Ionized Calcium Phosphorus AST 77 H ALT 114 H Alkaline Phosphatase 621 H Ammonia Lactate Dehydrogenase Total Creatine Kinase Troponin T C-Reactive Protein Total Protein 6.0 L Albumin 2.0 L Triglycerides LDL Cholesterol Direct HDL Cholesterol Arterial Blood Glucose Arterial Blood Ionized Calcium Urine WBC (Auto) Salicylates Crossmatch 08/19/20 08/19/20 08/19/20 14:23 14:25 17:03 WBC RBC Hgb Hct MCV MCH MCHC RDW Plt Count Seg Neuts % (Manual) Lymphocytes % (Manual) Seg Neutrophils # Man Lymphocytes # (Manual) Haptoglobin PT INR ABG pH POC ABG pCO2 POC ABG pO2 ABG pO2 ABG O2 Saturation ABG Hemoglobin ABG Oxyhemoglobin ABG Sodium ABG Potassium ABG Chloride ABG Glucose Oxyhemoglobin Carboxyhemoglobin Sodium Potassium Chloride Carbon Dioxide BUN Creatinine Glucose POC Glucose 201 H Hemoglobin A1c Lactic Acid Calcium Ionized Calcium Phosphorus AST ALT Alkaline Phosphatase Ammonia Lactate Dehydrogenase Total Creatine Kinase Troponin T C-Reactive Protein 9.60 H Total Protein Albumin Triglycerides LDL Cholesterol Direct HDL Cholesterol Arterial Blood Glucose Arterial Blood Ionized Calcium Urine WBC (Auto) 128.0 H Salicylates Crossmatch Allied health notes reviewed: nursing
[2020-08-20] MEDS: INSULIN LISPRO 100 UNIT/ML SUB-Q SCH ×4 (00:30→18:02)
[2020-08-20] MEDS: FREE WATER PO SCH ×5 (02:20→17:59)
[2020-08-20] MEDS: hydrALAZINE 10 MG TAB PO SCH ×2 (06:52→13:29)
--- NOTE | 2020-08-20 08:36 | Progress Note ---
Assessment and Plan Cultures: 07/28/2020 blood culture: C albicans, later addended to C parapsilosis 07/28/2020 urine culture: No growth COVID PCR: negative 07/31/2020 blood culture: Coag negative staph in 1 of 4 bottles (contaminant) 08/02/2020 blood culture: No growth 08/06/2020 Resp culture: normal resp hawk 08/06/2020 BAL AFB stain: negative 08/06/2020 BAL fungal culture: stain positive, culture in process. 08/16/2020 pleural fluid: 425 WBC, 3000 RBC. 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 New fever 08/18 ? Likely secondary to CAUTI. #Candidemia: Unclear source. ?IV line. Transthoracic echo without vegetation. Repeat blood culture no growth. Completed fluconazole course for Jennyfer albicans. Dr Simmons reviewed the scanned lab section on 08/17/2020 and noted that blood culture done on 07/28/2020 was identified as Jennyfer parapsilosis resistant to fluconazole. In the microbiology section, it continues to be listed as Jennyfer albicans which is typically susceptible to fluconazole. Lab did not notify us about the error or addended report. Considering this discrepancy, best to treat with IV micafungin for 14 days. D/W pharmacy. #Pneumonia: CT chest showed patchy airspace disease suggestive of possible aspiration. Chest x-ray with left lung whiteout, got bronch with suctioning of mucous plug, cultures with normal resp hawk. Treated with abx. Repeat CXR increased in pleuroparenchimal opacities. #B/L pleural effusions: s/p thoracentesis on 08/16/2020, about 800 cc of clear straw colored fluid drained. #UTI with chronic indwelling catheter: s/p abx. Repeat urinalysis 08/19/2020 with large pyuria ?CAUTI #Acute hypoxic respiratory failure: On mechanical ventilation via trach. Noted some desaturation overnight on the vent Fio2 45%, p8 #Transaminitis: Improving.RUQ US no GB stone or dilation #Sacral decubitus ulcer: Continue wound care, offloading as possible Recs: -Exchange Brennan catheter in light of large pyuria on UA -Add Cefepime 2g IV q12h for 5 days for UTI/adjust upon urine culture results -Follow-up blood culture, sputum culture, urine culture, procal -IV micafungin 100 mg daily ending 08/31/2020 -S/p trach/PEG -Monitor mentation Kavitha Reyes MD [facility] ([facility]) Office [phone] Subjective Date of service: 08/20/20 Principal diagnosis: Ac. encephalopathy; Ac. hypoxemic resp failure; Septic Shock; PNA; UTI; [place] Interval history: Patient remains in the ventilator via trach, FiO2 45, PEEP of 8, not tachycardic on monitor, no fever for 48 hours. Objective - Exam Narrative Exam: General appearance: Sedated on the ventilator via trach Eyes: anicteric sclerae, moist conjunctivae; no lid-lag; PERRLA HENT: Normocephalic, Atraumatic; normal external ears, nares open, oropharynx endotracheal tube in place Neck: Trach Lungs: Bilateral loud rhonchi CV: RRR no murmur Abdomen: Soft, non-tender PEG in place Extremities: Bilateral leg edema, bilateral hands edema Skin: No rash. Psych: Sedated Neuro: sedated Brennan catheter in place - Constitutional Vitals: Vital Signs Temp Pulse Resp BP Pulse Ox 97.7 F 88 13 161/85 100 08/20/20 08:00 08/20/20 07:44 08/20/20 07:01 08/20/20 07:44 08/20/20 07:44 Temperature -Last 24 Hours Temperature 97.7 F Temperature 98.6 F Temperature 98.8 F Temperature 97.7 F Temperature 97.7 F Temperature 98.0 F - Labs CBC & Chem 7: 08/18/20 06:46 08/19/20 09:56 Labs: Abnormal lab results 08/19/20 08/19/20 08/19/20 Range/Units 09:56 12:16 14:23 BUN 43 H (9-20) mg/dL Glucose 241 H (75-100) mg/dL POC Glucose 241 H (70-105) mg/dL Calcium 7.9 L (8.4-10.2) mg/dL AST 77 H (5-40) units/L ALT 114 H (7-56) units/L Alkaline Phosphatase 621 H (35-129) units/L C-Reactive Protein 9.60 H (0.00-1.30) mg/dL Total Protein 6.0 L (6.3-8.2) g/dL Albumin 2.0 L (3.9-5) g/dL Urine WBC (Auto) (0.0-6.0) /HPF 08/19/20 08/19/20 08/19/20 Range/Units 14:25 17:03 23:26 BUN (9-20) mg/dL Glucose (75-100) mg/dL POC Glucose 201 H 221 H (70-105) mg/dL Calcium (8.4-10.2) mg/dL AST (5-40) units/L ALT (7-56) units/L Alkaline Phosphatase (35-129) units/L C-Reactive Protein (0.00-1.30) mg/dL Total Protein (6.3-8.2) g/dL Albumin (3.9-5) g/dL Urine WBC (Auto) 128.0 H (0.0-6.0) /HPF 08/20/20 Range/Units 05:19 BUN (9-20) mg/dL Glucose (75-100) mg/dL POC Glucose 211 H (70-105) mg/dL Calcium (8.4-10.2) mg/dL AST (5-40) units/L ALT (7-56) units/L Alkaline Phosphatase (35-129) units/L C-Reactive Protein (0.00-1.30) mg/dL Total Protein (6.3-8.2) g/dL Albumin (3.9-5) g/dL Urine WBC (Auto) (0.0-6.0) /HPF
[2020-08-20] MEDS: ASCORBIC ACID 500 MG TAB PO SCH ×2 (11:05→21:47)
[2020-08-20] MEDS: SENNOSIDES/DOCUSATE SODIUM 8.6/50 MG TAB FEEDTUBE SCH ×2 (11:05→21:46)
[2020-08-20] MEDS: amLODIPine 10 MG TAB PO SCH (11:06)
[2020-08-20] MEDS: METOPROLOL TARTRATE 50 MG TAB PO SCH ×2 (11:06→21:47)
[2020-08-20] MEDS: ENOXAPARIN 40 MG/0.4 ML INJ SUB-Q SCH (11:06)
[2020-08-20] MEDS: CEFEPIME/NS 2 GM/100 ML 2 GM/100 ML BAG IV SCH ×2 (11:07→21:49)
[2020-08-20] MEDS: MICAFUNGIN 100 MG in SODIUM CHLORIDE 0.9% 100 ML IV SCH (11:07)
[2020-08-20] MEDS: INSULIN GLARGINE 100 UNITS/ML SUB-Q SCH (11:07)
[2020-08-20] MEDS: ZINC SULFATE 220 MG CAP PO SCH ×2 (11:09→21:46)
--- NOTE | 2020-08-20 12:15 | Progress Note ---
Assessment and Plan Acute possibly on chronic toxic metabolic encephalopathy Acute hypoxemic respiratory failure on MVS Severe sepsis with shock, presumably secondary to aspiration pneumonia Recent upper ext DVT (06/06) Aspiration pneumonia, bilateral Urinary tract infection History of quadriplegia Leukocytosis Anemia that is microcytic Coagulopathy. INR 2.17 at presentation Mild hypokalemia Acute kidney injury Metabolic lactic acidosis Non-ST elevation myocardial infarction Adult failure to thrive Moderate to severe protein calorie malnutrition - add Robinul for better secretion control - RT placed on SBT - ABG at 9pm tonight to assess ventilation if tolerates that long - follow thoracentesis / fluid studies - LTAC evaluation ongoing - continue care as below otherwise; - prn Levophed for target MAP > 65 mmHg - continue to wean supplemental oxygen for target O2 sat's > 90% acutely - VAP bundle addressed - continue lung protective strategies - continue bronchodilators with routine trach care and pulmonary hygiene per RT - wean per pulmonary driven protocols otherwise - avoid nephrotoxins, renally dose all medications - continue to avoid benzodiazepine's, reduce the possibility of delirium - complete antiinfective's per ID rec's (Diflucan to end tomorrow) - prn analgesia per CPOT score - Maintenance of sleep-wake cycle, avoid delirium - continue enteral nutritional support at goal rate as tolerated - G.I. & VTE prophylaxis - PT/OT/ROM exercises - continue wound care per RN / WCN - continue mobility protocols for pressure ulcer prophylaxis - Monitor hemodynamics closely - continue other care per attending / other consultants - discharge planning ongoing concurrently COVID SPECIFIC INTERVENTIONS: - COVID test result negative .... Re-evaluate in am & prn CONDITION: CRITICAL PROGNOSIS: GUARDED CODE STATUS: FULL CODE The high probability of a clinically significant, sudden or life-threatening deterioration of the [respiratory, cardiovascular & neurologic] system(s) required my full and direct attention, intervention and personal management. The aggregate critical care time was [33] minutes without overlap. Time includes spent on; [x] Data Review and interpretation [x] Patient assessment and monitoring of vital signs [x] Documentation [x] Medication orders and management Subjective Date of service: 08/20/20 Principal diagnosis: Ac. encephalopathy; Ac. hypoxemic resp failure; Septic Shock; PNA; UTI; JEFFERSON Interval history: Patient is seen today for: Acute encephalopathy; Acute hypoxemic respiratory failure; Septic Shock; Aspiration pneumonia; UTI; quadriplegia; JEFFERSON Seen and examined at bedside; 24hour events reviewed; nursing and respiratory care staff consulted; no adverse overnight events reported to me; resting in bed; remains on MVS; on full support but tolerated bedside SBT; secretions m oderate; no emesis or overt aspiration; nods head "NO" to pain question Objective Vital Signs - 12hr 08/20/20 08/20/20 08/20/20 01:01 01:03 02:01 Temperature Pulse Rate 69 78 68 Pulse Rate [ From Monitor] Respiratory 18 28 H Rate Blood Pressure 157/77 157/77 157/77 O2 Sat by Pulse 99 99 95 Oximetry O2 Sat by Pulse Oximetry [ Assessment] 08/20/20 08/20/20 08/20/20 03:01 03:56 03:59 Temperature 98.6 F Pulse Rate 76 77 Pulse Rate [ From Monitor] Respiratory 21 Rate Blood Pressure 146/81 153/82 O2 Sat by Pulse 98 99 Oximetry O2 Sat by Pulse Oximetry [ Assessment] 08/20/20 08/20/20 08/20/20 04:00 04:01 04:04 Temperature Pulse Rate 70 79 Pulse Rate [ 79 From Monitor] Respiratory 17 17 Rate Blood Pressure 153/82 O2 Sat by Pulse 98 98 Oximetry O2 Sat by Pulse 99 Oximetry [ Assessment] 08/20/20 08/20/20 08/20/20 05:01 06:01 06:52 Temperature Pulse Rate 78 68 99 H Pulse Rate [ From Monitor] Respiratory 21 16 Rate Blood Pressure 148/71 149/74 182/85 O2 Sat by Pulse 98 100 Oximetry O2 Sat by Pulse Oximetry [ Assessment] 08/20/20 08/20/20 08/20/20 07:01 07:44 08:00 Temperature 97.7 F Pulse Rate 84 88 84 Pulse Rate [ From Monitor] Respiratory 13 20 Rate Blood Pressure 182/85 161/85 148/71 O2 Sat by Pulse 100 100 100 Oximetry O2 Sat by Pulse Oximetry [ Assessment] 08/20/20 08/20/20 08/20/20 08:04 09:01 10:01 Temperature Pulse Rate 73 85 82 Pulse Rate [ 73 From Monitor] Respiratory 22 22 15 Rate Blood Pressure 161/85 158/86 O2 Sat by Pulse 100 100 100 Oximetry O2 Sat by Pulse Oximetry [ Assessment] 08/20/20 08/20/20 08/20/20 11:00 11:06 11:54 Temperature Pulse Rate 69 74 60 Pulse Rate [ From Monitor] Respiratory 24 Rate Blood Pressure 187/83 187/83 149/81 O2 Sat by Pulse 100 100 Oximetry O2 Sat by Pulse Oximetry [ Assessment] Constitutional: no acute distress, other ( chronically ill looking male with mildly increased respiratory effort at rest on MVS) Eyes: non-icteric ENT: oropharynx moist, oropharyngeal exudate pre (non-bloody; moderate), other (trach) Neck: supple, no lymphadenopathy, no JVD Effort: mildly labored Ascultation: Bilateral: diminished breath sounds, rhonchi Percussion: Bilateral: not dull Cardiovascular: regular rate and rhythm, other (S1,S2) Gastrointestinal: normoactive bowel sounds, soft, non-tender, non-distended, other (PEG) Integumentary: rash, decubitus ulcer (sacral (POA)) Extremities: no cyanosis, pulses normal, edema (lower extremities and bilatral upper extremity) Neurologic: pupils equal and round, other (quadriplegic; responds appropriately to questions / prompts) Psychiatric: mood appropriate, affect normal CBC and BMP: 08/18/20 06:46 08/19/20 09:56 ABG, PT/INR, D-dimer: ABG ABG pH 7.480 (7.320-7.450) H 08/18/20 05:00 POC ABG pCO2 40.2 mmHg (32.0-48.0) 08/18/20 05:00 ABG pCO2 35.7 mm Hg 08/15/20 Unknown POC ABG pO2 95.3 mmHg (83-108) 08/18/20 05:00 ABG pO2 77.7 mm Hg (80.0-90.0) L 08/15/20 Unknown POC ABG HCO3 29.3 08/18/20 05:00 ABG O2 Saturation 97.8 (0-100) 08/18/20 05:00 PT/INR, D-dimer PT 14.7 Sec. (12.2-14.9) 08/15/20 10:28 INR 1.09 (0.87-1.13) 08/15/20 10:28 Abnormal lab findings: Abnormal Labs 07/28/20 07/28/20 07/28/20 08:48 08:48 08:48 WBC 17.0 H RBC 2.77 L Hgb 8.2 L Hct 26.5 L MCV 96 H MCH MCHC 31 L RDW 16.2 H Plt Count Seg Neuts % (Manual) Lymphocytes % (Manual) Seg Neutrophils # Man Lymphocytes # (Manual) Haptoglobin PT 24.7 H INR 2.17 H ABG pH POC ABG pCO2 POC ABG pO2 ABG pO2 ABG O2 Saturation ABG Hemoglobin ABG Oxyhemoglobin ABG Sodium ABG Potassium ABG Chloride ABG Glucose Oxyhemoglobin Carboxyhemoglobin Sodium 135 L Potassium 3.5 L Chloride 97.6 L Carbon Dioxide BUN 44 H Creatinine 1.6 H Glucose 431 H POC Glucose Hemoglobin A1c Lactic Acid Calcium 7.9 L Ionized Calcium Phosphorus AST 81 H ALT Alkaline Phosphatase Ammonia Lactate Dehydrogenase Total Creatine Kinase 486 H Troponin T 0.115 H* C-Reactive Protein Total Protein 5.6 L Albumin 2.6 L Triglycerides LDL Cholesterol Direct 44 L HDL Cholesterol 26 L Arterial Blood Glucose Arterial Blood Ionized Calcium Urine WBC (Auto) Salicylates Crossmatch 07/28/20 07/28/20 07/28/20 08:48 09:44 09:44 WBC RBC Hgb Hct MCV MCH MCHC RDW Plt Count Seg Neuts % (Manual) Lymphocytes % (Manual) Seg Neutrophils # Man Lymphocytes # (Manual) Haptoglobin PT INR ABG pH POC ABG pCO2 POC ABG pO2 ABG pO2 ABG O2 Saturation ABG Hemoglobin ABG Oxyhemoglobin ABG Sodium ABG Potassium ABG Chloride ABG Glucose Oxyhemoglobin Carboxyhemoglobin Sodium Potassium Chloride Carbon Dioxide BUN Creatinine Glucose POC Glucose Hemoglobin A1c Lactic Acid 3.80 H* Calcium Ionized Calcium Phosphorus AST ALT Alkaline Phosphatase Ammonia 63.0 H Lactate Dehydrogenase Total Creatine Kinase Troponin T C-Reactive Protein Total Protein Albumin Triglycerides LDL Cholesterol Direct HDL Cholesterol Arterial Blood Glucose Arterial Blood Ionized Calcium Urine WBC (Auto) Salicylates < 0.3 L Crossmatch 07/28/20 07/28/20 07/28/20 10:18 14:38 15:58 WBC RBC Hgb Hct MCV MCH MCHC RDW Plt Count Seg Neuts % (Manual) Lymphocytes % (Manual) Seg Neutrophils # Man Lymphocytes # (Manual) Haptoglobin PT INR ABG pH POC ABG pCO2 POC ABG pO2 ABG pO2 78.0 L ABG O2 Saturation ABG Hemoglobin 7.6 L ABG Oxyhemoglobin ABG Sodium ABG Potassium ABG Chloride ABG Glucose Oxyhemoglobin Carboxyhemoglobin Sodium Potassium Chloride Carbon Dioxide BUN Creatinine Glucose POC Glucose 265 H Hemoglobin A1c Lactic Acid 3.90 H* Calcium Ionized Calcium Phosphorus AST ALT Alkaline Phosphatase Ammonia Lactate Dehydrogenase Total Creatine Kinase Troponin T C-Reactive Protein Total Protein Albumin Triglycerides LDL Cholesterol Direct HDL Cholesterol Arterial Blood Glucose Arterial Blood Ionized Calcium Urine WBC (Auto) Salicylates Crossmatch 07/28/20 07/28/20 07/28/20 19:50 21:00 Unknown WBC RBC Hgb Hct MCV MCH MCHC RDW Plt Count Seg Neuts % (Manual) Lymphocytes % (Manual) Seg Neutrophils # Man Lymphocytes # (Manual) Haptoglobin PT INR ABG pH 7.107 L POC ABG pCO2 65.6 H POC ABG pO2 ABG pO2 ABG O2 Saturation ABG Hemoglobin 9.9 L ABG Oxyhemoglobin ABG Sodium ABG Potassium ABG Chloride 108.0 H ABG Glucose 299 H Oxyhemoglobin Carboxyhemoglobin 0.2 L Sodium Potassium Chloride Carbon Dioxide BUN Creatinine Glucose POC Glucose Hemoglobin A1c Lactic Acid Calcium Ionized Calcium Phosphorus 5.40 H AST ALT Alkaline Phosphatase Ammonia Lactate Dehydrogenase Total Creatine Kinase Troponin T C-Reactive Protein 9.00 H Total Protein Albumin Triglycerides LDL Cholesterol Direct HDL Cholesterol Arterial Blood Glucose 299 H Arterial Blood Ionized Calcium 4.2 L Urine WBC (Auto) > 182.0 H Salicylates Crossmatch 07/29/20 07/29/20 07/29/20 04:02 13:00 17:13 WBC RBC Hgb Hct MCV MCH MCHC RDW Plt Count Seg Neuts % (Manual) Lymphocytes % (Manual) Seg Neutrophils # Man Lymphocytes # (Manual) Haptoglobin PT INR ABG pH 7.212 L POC ABG pCO2 52.5 H POC ABG pO2 128.3 H ABG pO2 ABG O2 Saturation ABG Hemoglobin 10.5 L ABG Oxyhemoglobin ABG Sodium ABG Potassium ABG Chloride 108.0 H ABG Glucose 239 H Oxyhemoglobin Carboxyhemoglobin Sodium Potassium Chloride Carbon Dioxide BUN Creatinine Glucose POC Glucose 212 H 257 H Hemoglobin A1c Lactic Acid Calcium Ionized Calcium Phosphorus AST ALT Alkaline Phosphatase Ammonia Lactate Dehydrogenase Total Creatine Kinase Troponin T C-Reactive Protein Total Protein Albumin Triglycerides LDL Cholesterol Direct HDL Cholesterol Arterial Blood Glucose 239 H Arterial Blood Ionized Calcium 4.0 L Urine WBC (Auto) Salicylates Crossmatch 07/29/20 07/29/20 07/29/20 21:00 23:20 Unknown WBC RBC 3.05 L Hgb 9.7 L Hct 28.6 L MCV MCH MCHC RDW 16.1 H Plt Count Seg Neuts % (Manual) 75.0 H Lymphocytes % (Manual) 2.0 L Seg Neutrophils # Man Lymphocytes # (Manual) 0.2 L Haptoglobin PT INR ABG pH 7.286 L POC ABG pCO2 POC ABG pO2 ABG pO2 ABG O2 Saturation ABG Hemoglobin 9.1 L ABG Oxyhemoglobin ABG Sodium ABG Potassium ABG Chloride 109.0 H ABG Glucose 285 H Oxyhemoglobin Carboxyhemoglobin Sodium Potassium Chloride Carbon Dioxide BUN Creatinine Glucose POC Glucose 233 H Hemoglobin A1c Lactic Acid Calcium Ionized Calcium Phosphorus AST ALT Alkaline Phosphatase Ammonia Lactate Dehydrogenase Total Creatine Kinase Troponin T C-Reactive Protein Total Protein Albumin Triglycerides LDL Cholesterol Direct HDL Cholesterol Arterial Blood Glucose 285 H Arterial Blood Ionized Calcium 3.9 L Urine WBC (Auto) Salicylates Crossmatch 07/29/20 07/29/20 07/30/20 Unknown Unknown 05:30 WBC RBC Hgb Hct MCV MCH MCHC RDW Plt Count Seg Neuts % (Manual) Lymphocytes % (Manual) Seg Neutrophils # Man Lymphocytes # (Manual) Haptoglobin PT INR ABG pH POC ABG pCO2 POC ABG pO2 ABG pO2 ABG O2 Saturation ABG Hemoglobin ABG Oxyhemoglobin ABG Sodium ABG Potassium ABG Chloride ABG Glucose Oxyhemoglobin Carboxyhemoglobin Sodium Potassium Chloride 108.4 H Carbon Dioxide 21 L BUN 41 H Creatinine Glucose 217 H POC Glucose 245 H Hemoglobin A1c Lactic Acid 2.70 H* Calcium 6.5 L D Ionized Calcium Phosphorus AST 104 H ALT 74 H Alkaline Phosphatase Ammonia Lactate Dehydrogenase Total Creatine Kinase Troponin T C-Reactive Protein Total Protein 5.1 L Albumin 2.4 L Triglycerides LDL Cholesterol Direct HDL Cholesterol Arterial Blood Glucose Arterial Blood Ionized Calcium Urine WBC (Auto) Salicylates Crossmatch 07/30/20 07/30/20 07/30/20 05:45 05:45 12:12 WBC RBC 2.50 L Hgb 7.8 L Hct 23.3 L MCV MCH MCHC RDW 16.4 H Plt Count Seg Neuts % (Manual) Lymphocytes % (Manual) Seg Neutrophils # Man Lymphocytes # (Manual) Haptoglobin PT INR ABG pH POC ABG pCO2 POC ABG pO2 ABG pO2 ABG O2 Saturation ABG Hemoglobin ABG Oxyhemoglobin ABG Sodium ABG Potassium ABG Chloride ABG Glucose Oxyhemoglobin Carboxyhemoglobin Sodium Potassium Chloride 108.4 H Carbon Dioxide 21 L BUN 44 H Creatinine 1.4 H Glucose 279 H POC Glucose 243 H Hemoglobin A1c Lactic Acid Calcium 6.7 L Ionized Calcium Phosphorus AST 51 H ALT Alkaline Phosphatase Ammonia Lactate Dehydrogenase Total Creatine Kinase Troponin T C-Reactive Protein Total Protein 5.5 L Albumin 2.3 L Triglycerides LDL Cholesterol Direct HDL Cholesterol Arterial Blood Glucose Arterial Blood Ionized Calcium Urine WBC (Auto) Salicylates Crossmatch 07/30/20 07/30/20 07/30/20 15:50 17:20 19:01 WBC RBC Hgb Hct MCV MCH MCHC RDW Plt Count Seg Neuts % (Manual) Lymphocytes % (Manual) Seg Neutrophils # Man Lymphocytes # (Manual) Haptoglobin PT INR ABG pH POC ABG pCO2 POC ABG pO2 147.2 H ABG pO2 ABG O2 Saturation ABG Hemoglobin 7.2 L ABG Oxyhemoglobin ABG Sodium ABG Potassium 3.3 L ABG Chloride 115.0 H ABG Glucose 269 H Oxyhemoglobin Carboxyhemoglobin 1.6 H Sodium Potassium Chloride Carbon Dioxide BUN Creatinine Glucose POC Glucose 260 H Hemoglobin A1c Lactic Acid Calcium Ionized Calcium 4.2 L Phosphorus AST ALT Alkaline Phosphatase Ammonia Lactate Dehydrogenase Total Creatine Kinase Troponin T C-Reactive Protein Total Protein Albumin Triglycerides LDL Cholesterol Direct HDL Cholesterol Arterial Blood Glucose 269 H Arterial Blood Ionized Calcium 3.5 L Urine WBC (Auto) Salicylates Crossmatch 07/30/20 07/31/20 07/31/20 23:16 04:04 04:47 WBC RBC Hgb Hct MCV MCH MCHC RDW Plt Count Seg Neuts % (Manual) Lymphocytes % (Manual) Seg Neutrophils # Man Lymphocytes # (Manual) Haptoglobin PT INR ABG pH POC ABG pCO2 POC ABG pO2 ABG pO2 ABG O2 Saturation ABG Hemoglobin 7.6 L ABG Oxyhemoglobin ABG Sodium ABG Potassium 3.3 L ABG Chloride 113.0 H ABG Glucose 348 H Oxyhemoglobin Carboxyhemoglobin 0.4 L Sodium Potassium Chloride Carbon Dioxide BUN Creatinine Glucose POC Glucose 298 H 297 H Hemoglobin A1c Lactic Acid Calcium Ionized Calcium Phosphorus AST ALT Alkaline Phosphatase Ammonia Lactate Dehydrogenase Total Creatine Kinase Troponin T C-Reactive Protein Total Protein Albumin Triglycerides LDL Cholesterol Direct HDL Cholesterol Arterial Blood Glucose 348 H Arterial Blood Ionized Calcium 4.1 L Urine WBC (Auto) Salicylates Crossmatch 07/31/20 07/31/20 07/31/20 07:26 07:26 11:54 WBC RBC 2.29 L Hgb 7.2 L Hct 21.5 L MCV MCH MCHC RDW 16.7 H Plt Count Seg Neuts % (Manual) Lymphocytes % (Manual) Seg Neutrophils # Man Lymphocytes # (Manual) Haptoglobin PT INR ABG pH POC ABG pCO2 POC ABG pO2 ABG pO2 ABG O2 Saturation ABG Hemoglobin ABG Oxyhemoglobin ABG Sodium ABG Potassium ABG Chloride ABG Glucose Oxyhemoglobin Carboxyhemoglobin Sodium Potassium 3.4 L Chloride 109.4 H Carbon Dioxide BUN 45 H Creatinine 1.4 H Glucose 304 H POC Glucose 302 H Hemoglobin A1c Lactic Acid Calcium 6.9 L Ionized Calcium Phosphorus AST ALT Alkaline Phosphatase Ammonia Lactate Dehydrogenase Total Creatine Kinase Troponin T C-Reactive Protein Total Protein Albumin Triglycerides LDL Cholesterol Direct HDL Cholesterol Arterial Blood Glucose Arterial Blood Ionized Calcium Urine WBC (Auto) Salicylates Crossmatch 07/31/20 08/01/20 08/01/20 21:27 03:09 04:30 WBC RBC 2.29 L Hgb 7.0 L Hct 20.7 L MCV MCH MCHC RDW 16.2 H Plt Count 125 L Seg Neuts % (Manual) Lymphocytes % (Manual) Seg Neutrophils # Man Lymphocytes # (Manual) Haptoglobin PT INR ABG pH POC ABG pCO2 POC ABG pO2 ABG pO2 ABG O2 Saturation ABG Hemoglobin 7.4 L ABG Oxyhemoglobin ABG Sodium 146.9 H ABG Potassium 3.2 L ABG Chloride 116.0 H ABG Glucose 113 H Oxyhemoglobin Carboxyhemoglobin Sodium Potassium Chloride Carbon Dioxide BUN Creatinine Glucose POC Glucose 138 H Hemoglobin A1c Lactic Acid Calcium Ionized Calcium Phosphorus AST ALT Alkaline Phosphatase Ammonia Lactate Dehydrogenase Total Creatine Kinase Troponin T C-Reactive Protein Total Protein Albumin Triglycerides LDL Cholesterol Direct HDL Cholesterol Arterial Blood Glucose 113 H Arterial Blood Ionized Calcium 4.5 L Urine WBC (Auto) Salicylates Crossmatch 08/01/20 08/01/20 08/01/20 04:30 04:30 08:40 WBC RBC Hgb Hct MCV MCH MCHC RDW Plt Count Seg Neuts % (Manual) Lymphocytes % (Manual) Seg Neutrophils # Man Lymphocytes # (Manual) Haptoglobin PT INR ABG pH POC ABG pCO2 POC ABG pO2 ABG pO2 ABG O2 Saturation ABG Hemoglobin ABG Oxyhemoglobin ABG Sodium ABG Potassium ABG Chloride ABG Glucose Oxyhemoglobin Carboxyhemoglobin Sodium 148 H Potassium 3.4 L Chloride 114.3 H Carbon Dioxide BUN 43 H Creatinine Glucose 109 H POC Glucose Hemoglobin A1c 8.8 H Lactic Acid Calcium 8.1 L D Ionized Calcium Phosphorus AST ALT Alkaline Phosphatase Ammonia Lactate Dehydrogenase Total Creatine Kinase Troponin T C-Reactive Protein Total Protein Albumin Triglycerides LDL Cholesterol Direct HDL Cholesterol Arterial Blood Glucose Arterial Blood Ionized Calcium Urine WBC (Auto) Salicylates Crossmatch See Detail 08/01/20 08/01/20 08/01/20 08:40 17:03 23:35 WBC RBC Hgb Hct MCV MCH MCHC RDW Plt Count Seg Neuts % (Manual) Lymphocytes % (Manual) Seg Neutrophils # Man Lymphocytes # (Manual) Haptoglobin PT INR ABG pH POC ABG pCO2 POC ABG pO2 ABG pO2 ABG O2 Saturation ABG Hemoglobin ABG Oxyhemoglobin ABG Sodium ABG Potassium ABG Chloride ABG Glucose Oxyhemoglobin Carboxyhemoglobin Sodium Potassium Chloride Carbon Dioxide BUN Creatinine Glucose POC Glucose 129 H 172 H Hemoglobin A1c Lactic Acid Calcium Ionized Calcium Phosphorus 1.70 L AST ALT Alkaline Phosphatase Ammonia Lactate Dehydrogenase Total Creatine Kinase Troponin T C-Reactive Protein Total Protein Albumin Triglycerides LDL Cholesterol Direct HDL Cholesterol Arterial Blood Glucose Arterial Blood Ionized Calcium Urine WBC (Auto) Salicylates Crossmatch 08/02/20 08/02/20 08/02/20 03:50 05:46 10:54 WBC RBC Hgb Hct MCV MCH MCHC RDW Plt Count Seg Neuts % (Manual) Lymphocytes % (Manual) Seg Neutrophils # Man Lymphocytes # (Manual) Haptoglobin PT INR ABG pH 7.333 L POC ABG pCO2 POC ABG pO2 ABG pO2 91.5 H ABG O2 Saturation ABG Hemoglobin 7.9 L ABG Oxyhemoglobin ABG Sodium ABG Potassium ABG Chloride ABG Glucose Oxyhemoglobin Carboxyhemoglobin Sodium Potassium Chloride Carbon Dioxide BUN Creatinine Glucose POC Glucose 161 H 228 H Hemoglobin A1c Lactic Acid Calcium Ionized Calcium Phosphorus AST ALT Alkaline Phosphatase Ammonia Lactate Dehydrogenase Total Creatine Kinase Troponin T C-Reactive Protein Total Protein Albumin Triglycerides LDL Cholesterol Direct HDL Cholesterol Arterial Blood Glucose Arterial Blood Ionized Calcium Urine WBC (Auto) Salicylates Crossmatch 08/02/20 08/02/20 08/02/20 17:20 23:13 Unknown WBC RBC 2.66 L Hgb 8.1 L Hct 23.9 L MCV MCH MCHC RDW 16.8 H Plt Count 110 L Seg Neuts % (Manual) Lymphocytes % (Manual) Seg Neutrophils # Man Lymphocytes # (Manual) Haptoglobin PT INR ABG pH POC ABG pCO2 POC ABG pO2 ABG pO2 ABG O2 Saturation ABG Hemoglobin ABG Oxyhemoglobin ABG Sodium ABG Potassium ABG Chloride ABG Glucose Oxyhemoglobin Carboxyhemoglobin Sodium Potassium Chloride Carbon Dioxide BUN Creatinine Glucose POC Glucose 214 H 132 H Hemoglobin A1c Lactic Acid Calcium Ionized Calcium Phosphorus AST ALT Alkaline Phosphatase Ammonia Lactate Dehydrogenase Total Creatine Kinase Troponin T C-Reactive Protein Total Protein Albumin Triglycerides LDL Cholesterol Direct HDL Cholesterol Arterial Blood Glucose Arterial Blood Ionized Calcium Urine WBC (Auto) Salicylates Crossmatch 08/02/20 08/02/20 08/03/20 Unknown Unknown 02:59 WBC RBC Hgb Hct MCV MCH MCHC RDW Plt Count Seg Neuts % (Manual) Lymphocytes % (Manual) Seg Neutrophils # Man Lymphocytes # (Manual) Haptoglobin PT INR ABG pH POC ABG pCO2 POC ABG pO2 ABG pO2 ABG O2 Saturation ABG Hemoglobin 8.1 L ABG Oxyhemoglobin ABG Sodium ABG Potassium ABG Chloride 113.0 H ABG Glucose 143 H Oxyhemoglobin Carboxyhemoglobin Sodium 150 H Potassium 3.5 L Chloride 115.9 H Carbon Dioxide BUN 42 H Creatinine Glucose 188 H POC Glucose Hemoglobin A1c Lactic Acid Calcium 7.8 L Ionized Calcium Phosphorus 2.30 L D AST ALT Alkaline Phosphatase Ammonia Lactate Dehydrogenase Total Creatine Kinase Troponin T C-Reactive Protein Total Protein Albumin Triglycerides LDL Cholesterol Direct HDL Cholesterol Arterial Blood Glucose 143 H Arterial Blood Ionized Calcium Urine WBC (Auto) Salicylates Crossmatch 08/03/20 08/03/20 08/03/20 04:16 04:16 05:12 WBC RBC 2.62 L Hgb 8.1 L Hct 24.1 L MCV MCH MCHC RDW 17.4 H Plt Count 118 L Seg Neuts % (Manual) Lymphocytes % (Manual) Seg Neutrophils # Man Lymphocytes # (Manual) Haptoglobin PT INR ABG pH POC ABG pCO2 POC ABG pO2 ABG pO2 ABG O2 Saturation ABG Hemoglobin ABG Oxyhemoglobin ABG Sodium ABG Potassium ABG Chloride ABG Glucose Oxyhemoglobin Carboxyhemoglobin Sodium 148 H Potassium Chloride 114.5 H Carbon Dioxide BUN 47 H Creatinine Glucose 158 H POC Glucose 164 H Hemoglobin A1c Lactic Acid Calcium 8.1 L Ionized Calcium Phosphorus 2.30 L AST ALT Alkaline Phosphatase Ammonia Lactate Dehydrogenase Total Creatine Kinase Troponin T C-Reactive Protein Total Protein Albumin Triglycerides LDL Cholesterol Direct HDL Cholesterol Arterial Blood Glucose Arterial Blood Ionized Calcium Urine WBC (Auto) Salicylates Crossmatch 08/03/20 08/03/20 08/03/20 11:26 17:33 23:47 WBC RBC Hgb Hct MCV MCH MCHC RDW Plt Count Seg Neuts % (Manual) Lymphocytes % (Manual) Seg Neutrophils # Man Lymphocytes # (Manual) Haptoglobin PT INR ABG pH POC ABG pCO2 POC ABG pO2 ABG pO2 ABG O2 Saturation ABG Hemoglobin ABG Oxyhemoglobin ABG Sodium ABG Potassium ABG Chloride ABG Glucose Oxyhemoglobin Carboxyhemoglobin Sodium Potassium Chloride Carbon Dioxide BUN Creatinine Glucose POC Glucose 190 H 235 H 194 H Hemoglobin A1c Lactic Acid Calcium Ionized Calcium Phosphorus AST ALT Alkaline Phosphatase Ammonia Lactate Dehydrogenase Total Creatine Kinase Troponin T C-Reactive Protein Total Protein Albumin Triglycerides LDL Cholesterol Direct HDL Cholesterol Arterial Blood Glucose Arterial Blood Ionized Calcium Urine WBC (Auto) Salicylates Crossmatch 08/04/20 08/04/20 08/04/20 03:00 03:00 04:14 WBC RBC Hgb Hct MCV MCH MCHC RDW Plt Count Seg Neuts % (Manual) Lymphocytes % (Manual) Seg Neutrophils # Man Lymphocytes # (Manual) Haptoglobin PT INR ABG pH POC ABG pCO2 POC ABG pO2 79.5 L ABG pO2 ABG O2 Saturation ABG Hemoglobin 9.9 L ABG Oxyhemoglobin ABG Sodium ABG Potassium ABG Chloride 113.0 H ABG Glucose 227 H Oxyhemoglobin Carboxyhemoglobin 0.3 L Sodium Potassium Chloride 111.4 H Carbon Dioxide BUN 51 H Creatinine Glucose 218 H POC Glucose Hemoglobin A1c Lactic Acid Calcium Ionized Calcium Phosphorus AST ALT Alkaline Phosphatase Ammonia Lactate Dehydrogenase Total Creatine Kinase Troponin T C-Reactive Protein Total Protein Albumin Triglycerides 184 H LDL Cholesterol Direct HDL Cholesterol Arterial Blood Glucose 227 H Arterial Blood Ionized Calcium Urine WBC (Auto) Salicylates Crossmatch 08/04/20 08/04/20 08/04/20 05:17 11:52 11:53 WBC RBC Hgb Hct MCV MCH MCHC RDW Plt Count Seg Neuts % (Manual) Lymphocytes % (Manual) Seg Neutrophils # Man Lymphocytes # (Manual) Haptoglobin PT INR ABG pH POC ABG pCO2 POC ABG pO2 ABG pO2 ABG O2 Saturation ABG Hemoglobin ABG Oxyhemoglobin ABG Sodium ABG Potassium ABG Chloride ABG Glucose Oxyhemoglobin Carboxyhemoglobin Sodium Potassium Chloride Carbon Dioxide BUN Creatinine Glucose POC Glucose 224 H 253 H 237 H Hemoglobin A1c Lactic Acid Calcium Ionized Calcium Phosphorus AST ALT Alkaline Phosphatase Ammonia Lactate Dehydrogenase Total Creatine Kinase Troponin T C-Reactive Protein Total Protein Albumin Triglycerides LDL Cholesterol Direct HDL Cholesterol Arterial Blood Glucose Arterial Blood Ionized Calcium Urine WBC (Auto) Salicylates Crossmatch 08/04/20 08/04/20 08/04/20 15:35 16:25 17:45 WBC 21.5 H RBC 2.10 L Hgb 7.3 L Hct 22.0 L MCV MCH 33 H MCHC 37 H RDW 17.2 H Plt Count 133 L Seg Neuts % (Manual) Lymphocytes % (Manual) Seg Neutrophils # Man Lymphocytes # (Manual) Haptoglobin PT INR ABG pH POC ABG pCO2 POC ABG pO2 ABG pO2 ABG O2 Saturation ABG Hemoglobin ABG Oxyhemoglobin ABG Sodium ABG Potassium ABG Chloride ABG Glucose Oxyhemoglobin Carboxyhemoglobin Sodium Potassium Chloride Carbon Dioxide BUN Creatinine Glucose POC Glucose 230 H 218 H Hemoglobin A1c Lactic Acid Calcium Ionized Calcium Phosphorus AST ALT Alkaline Phosphatase Ammonia Lactate Dehydrogenase Total Creatine Kinase Troponin T C-Reactive Protein Total Protein Albumin Triglycerides LDL Cholesterol Direct HDL Cholesterol Arterial Blood Glucose Arterial Blood Ionized Calcium Urine WBC (Auto) Salicylates Crossmatch 08/04/20 08/05/20 08/05/20 23:11 03:28 05:25 WBC RBC Hgb Hct MCV MCH MCHC RDW Plt Count Seg Neuts % (Manual) Lymphocytes % (Manual) Seg Neutrophils # Man Lymphocytes # (Manual) Haptoglobin PT INR ABG pH POC ABG pCO2 POC ABG pO2 82.1 L ABG pO2 ABG O2 Saturation ABG Hemoglobin 8.6 L ABG Oxyhemoglobin 93.7 L ABG Sodium ABG Potassium ABG Chloride 113.0 H ABG Glucose 205 H Oxyhemoglobin Carboxyhemoglobin Sodium Potassium Chloride Carbon Dioxide BUN Creatinine Glucose POC Glucose 198 H 213 H Hemoglobin A1c Lactic Acid Calcium Ionized Calcium Phosphorus AST ALT Alkaline Phosphatase Ammonia Lactate Dehydrogenase Total Creatine Kinase Troponin T C-Reactive Protein Total Protein Albumin Triglycerides LDL Cholesterol Direct HDL Cholesterol Arterial Blood Glucose 205 H Arterial Blood Ionized Calcium Urine WBC (Auto) Salicylates Crossmatch 0608/[id number] 08/05/20 08:48 08:48 10:55 WBC 14.3 H RBC 2.76 L Hgb 8.1 L Hct 24.8 L MCV MCH MCHC RDW 17.4 H Plt Count 138 L Seg Neuts % (Manual) 97.0 H Lymphocytes % (Manual) 1.0 L Seg Neutrophils # Man 13.9 H Lymphocytes # (Manual) 0.1 L Haptoglobin PT INR ABG pH POC ABG pCO2 POC ABG pO2 158.7 H ABG pO2 ABG O2 Saturation ABG Hemoglobin 7.8 L ABG Oxyhemoglobin ABG Sodium ABG Potassium ABG Chloride 114.0 H ABG Glucose 242 H Oxyhemoglobin Carboxyhemoglobin Sodium 146 H Potassium Chloride 110.1 H Carbon Dioxide BUN 56 H Creatinine Glucose 219 H POC Glucose Hemoglobin A1c Lactic Acid Calcium Ionized Calcium Phosphorus AST ALT Alkaline Phosphatase 192 H Ammonia Lactate Dehydrogenase Total Creatine Kinase Troponin T C-Reactive Protein Total Protein 5.8 L Albumin 2.0 L Triglycerides LDL Cholesterol Direct HDL Cholesterol Arterial Blood Glucose 242 H Arterial Blood Ionized Calcium Urine WBC (Auto) Salicylates Crossmatch 08/05/20 08/05/20 08/05/20 11:12 11:30 17:08 WBC RBC Hgb Hct MCV MCH MCHC RDW Plt Count Seg Neuts % (Manual) Lymphocytes % (Manual) Seg Neutrophils # Man Lymphocytes # (Manual) Haptoglobin PT INR ABG pH POC ABG pCO2 POC ABG pO2 147.5 H ABG pO2 ABG O2 Saturation ABG Hemoglobin 7.5 L ABG Oxyhemoglobin 98.1 H ABG Sodium ABG Potassium ABG Chloride 113.0 H ABG Glucose 248 H Oxyhemoglobin Carboxyhemoglobin Sodium Potassium Chloride Carbon Dioxide BUN Creatinine Glucose POC Glucose 238 H 239 H Hemoglobin A1c Lactic Acid Calcium Ionized Calcium Phosphorus AST ALT Alkaline Phosphatase Ammonia Lactate Dehydrogenase Total Creatine Kinase Troponin T C-Reactive Protein Total Protein Albumin Triglycerides LDL Cholesterol Direct HDL Cholesterol Arterial Blood Glucose 248 H Arterial Blood Ionized Calcium Urine WBC (Auto) Salicylates Crossmatch 08/05/20 08/05/20 08/06/20 23:17 Unknown 05:12 WBC RBC Hgb Hct MCV MCH MCHC RDW Plt Count Seg Neuts % (Manual) Lymphocytes % (Manual) Seg Neutrophils # Man Lymphocytes # (Manual) Haptoglobin PT INR ABG pH POC ABG pCO2 POC ABG pO2 ABG pO2 ABG O2 Saturation ABG Hemoglobin ABG Oxyhemoglobin ABG Sodium ABG Potassium ABG Chloride ABG Glucose Oxyhemoglobin Carboxyhemoglobin Sodium Potassium Chloride 109.2 H Carbon Dioxide BUN 51 H Creatinine Glucose 229 H POC Glucose 200 H 145 H Hemoglobin A1c Lactic Acid Calcium Ionized Calcium Phosphorus AST ALT Alkaline Phosphatase Ammonia Lactate Dehydrogenase Total Creatine Kinase Troponin T C-Reactive Protein Total Protein Albumin Triglycerides LDL Cholesterol Direct HDL Cholesterol Arterial Blood Glucose Arterial Blood Ionized Calcium Urine WBC (Auto) Salicylates Crossmatch 08/06/20 08/06/20 08/06/20 05:21 10:00 11:28 WBC RBC Hgb Hct MCV MCH MCHC RDW Plt Count Seg Neuts % (Manual) Lymphocytes % (Manual) Seg Neutrophils # Man Lymphocytes # (Manual) Haptoglobin PT INR ABG pH 7.301 L 7.308 L POC ABG pCO2 49.5 H 49.1 H POC ABG pO2 178.4 H ABG pO2 ABG O2 Saturation ABG Hemoglobin 7.5 L 7.1 L ABG Oxyhemoglobin 98.8 H ABG Sodium ABG Potassium ABG Chloride 112.0 H 112.0 H ABG Glucose 149 H 162 H Oxyhemoglobin Carboxyhemoglobin Sodium Potassium Chloride Carbon Dioxide BUN Creatinine Glucose POC Glucose 158 H Hemoglobin A1c Lactic Acid Calcium Ionized Calcium Phosphorus AST ALT Alkaline Phosphatase Ammonia Lactate Dehydrogenase Total Creatine Kinase Troponin T C-Reactive Protein Total Protein Albumin Triglycerides LDL Cholesterol Direct HDL Cholesterol Arterial Blood Glucose 149 H 162 H Arterial Blood Ionized Calcium Urine WBC (Auto) Salicylates Crossmatch 08/06/20 08/06/20 08/06/20 17:42 23:56 Unknown WBC 13.0 H RBC 2.38 L Hgb 7.1 L Hct 21.5 L MCV MCH MCHC RDW 17.6 H Plt Count Seg Neuts % (Manual) Lymphocytes % (Manual) Seg Neutrophils # Man Lymphocytes # (Manual) Haptoglobin PT INR ABG pH POC ABG pCO2 POC ABG pO2 ABG pO2 ABG O2 Saturation ABG Hemoglobin ABG Oxyhemoglobin ABG Sodium ABG Potassium ABG Chloride ABG Glucose Oxyhemoglobin Carboxyhemoglobin Sodium Potassium Chloride Carbon Dioxide BUN Creatinine Glucose POC Glucose 179 H 259 H Hemoglobin A1c Lactic Acid Calcium Ionized Calcium Phosphorus AST ALT Alkaline Phosphatase Ammonia Lactate Dehydrogenase Total Creatine Kinase Troponin T C-Reactive Protein Total Protein Albumin Triglycerides LDL Cholesterol Direct HDL Cholesterol Arterial Blood Glucose Arterial Blood Ionized Calcium Urine WBC (Auto) Salicylates Crossmatch 08/07/20 08/07/20 08/07/20 04:00 04:05 04:05 WBC RBC 2.32 L Hgb 7.1 L Hct 20.9 L MCV MCH MCHC RDW 17.9 H Plt Count Seg Neuts % (Manual) Lymphocytes % (Manual) Seg Neutrophils # Man Lymphocytes # (Manual) Haptoglobin PT INR ABG pH POC ABG pCO2 POC ABG pO2 150.6 H ABG pO2 ABG O2 Saturation ABG Hemoglobin 8.0 L ABG Oxyhemoglobin 98.4 H ABG Sodium 146.7 H ABG Potassium ABG Chloride 114.0 H ABG Glucose 201 H Oxyhemoglobin Carboxyhemoglobin Sodium 151 H Potassium Chloride 114.3 H Carbon Dioxide BUN 63 H Creatinine Glucose 198 H POC Glucose Hemoglobin A1c Lactic Acid Calcium Ionized Calcium Phosphorus AST 54 H ALT Alkaline Phosphatase 213 H Ammonia Lactate Dehydrogenase Total Creatine Kinase Troponin T C-Reactive Protein Total Protein 6.1 L Albumin 2.0 L Triglycerides LDL Cholesterol Direct HDL Cholesterol Arterial Blood Glucose 201 H Arterial Blood Ionized Calcium Urine WBC (Auto) Salicylates Crossmatch 08/07/20 08/07/20 08/07/20 05:34 11:43 14:30 WBC RBC Hgb Hct MCV MCH MCHC RDW Plt Count Seg Neuts % (Manual) Lymphocytes % (Manual) Seg Neutrophils # Man Lymphocytes # (Manual) Haptoglobin PT INR ABG pH POC ABG pCO2 POC ABG pO2 ABG pO2 62.9 L ABG O2 Saturation 86.7 L ABG Hemoglobin 7.1 L ABG Oxyhemoglobin ABG Sodium ABG Potassium ABG Chloride ABG Glucose Oxyhemoglobin 85.0 L Carboxyhemoglobin Sodium Potassium Chloride Carbon Dioxide BUN Creatinine Glucose POC Glucose 160 H 201 H Hemoglobin A1c Lactic Acid Calcium Ionized Calcium Phosphorus AST ALT Alkaline Phosphatase Ammonia Lactate Dehydrogenase Total Creatine Kinase Troponin T C-Reactive Protein Total Protein Albumin Triglycerides LDL Cholesterol Direct HDL Cholesterol Arterial Blood Glucose Arterial Blood Ionized Calcium Urine WBC (Auto) Salicylates Crossmatch 08/07/20 08/07/20 08/08/20 17:57 23:12 05:38 WBC RBC Hgb Hct MCV MCH MCHC RDW Plt Count Seg Neuts % (Manual) Lymphocytes % (Manual) Seg Neutrophils # Man Lymphocytes # (Manual) Haptoglobin PT INR ABG pH POC ABG pCO2 POC ABG pO2 ABG pO2 ABG O2 Saturation ABG Hemoglobin ABG Oxyhemoglobin ABG Sodium ABG Potassium ABG Chloride ABG Glucose Oxyhemoglobin Carboxyhemoglobin Sodium Potassium Chloride Carbon Dioxide BUN Creatinine Glucose POC Glucose 242 H 246 H 135 H Hemoglobin A1c Lactic Acid Calcium Ionized Calcium Phosphorus AST ALT Alkaline Phosphatase Ammonia Lactate Dehydrogenase Total Creatine Kinase Troponin T C-Reactive Protein Total Protein Albumin Triglycerides LDL Cholesterol Direct HDL Cholesterol Arterial Blood Glucose Arterial Blood Ionized Calcium Urine WBC (Auto) Salicylates Crossmatch 08/08/20 08/08/20 08/08/20 09:49 11:40 17:28 WBC RBC Hgb Hct MCV MCH MCHC RDW Plt Count Seg Neuts % (Manual) Lymphocytes % (Manual) Seg Neutrophils # Man Lymphocytes # (Manual) Haptoglobin PT INR ABG pH POC ABG pCO2 POC ABG pO2 ABG pO2 ABG O2 Saturation ABG Hemoglobin 6.9 L ABG Oxyhemoglobin ABG Sodium 146.1 H ABG Potassium ABG Chloride 114.0 H ABG Glucose 192 H Oxyhemoglobin Carboxyhemoglobin Sodium Potassium Chloride Carbon Dioxide BUN Creatinine Glucose POC Glucose 187 H 175 H Hemoglobin A1c Lactic Acid Calcium Ionized Calcium Phosphorus AST ALT Alkaline Phosphatase Ammonia Lactate Dehydrogenase Total Creatine Kinase Troponin T C-Reactive Protein Total Protein Albumin Triglycerides LDL Cholesterol Direct HDL Cholesterol Arterial Blood Glucose 192 H Arterial Blood Ionized Calcium Urine WBC (Auto) Salicylates Crossmatch 08/09/20 08/09/20 08/09/20 03:41 06:10 11:58 WBC RBC Hgb Hct MCV MCH MCHC RDW Plt Count Seg Neuts % (Manual) Lymphocytes % (Manual) Seg Neutrophils # Man Lymphocytes # (Manual) Haptoglobin PT INR ABG pH POC ABG pCO2 POC ABG pO2 ABG pO2 ABG O2 Saturation ABG Hemoglobin 6.9 L ABG Oxyhemoglobin ABG Sodium 145.8 H ABG Potassium 4.6 H ABG Chloride 113.0 H ABG Glucose 113 H Oxyhemoglobin Carboxyhemoglobin Sodium Potassium Chloride Carbon Dioxide BUN Creatinine Glucose POC Glucose 118 H 124 H Hemoglobin A1c Lactic Acid Calcium Ionized Calcium Phosphorus AST ALT Alkaline Phosphatase Ammonia Lactate Dehydrogenase Total Creatine Kinase Troponin T C-Reactive Protein Total Protein Albumin Triglycerides LDL Cholesterol Direct HDL Cholesterol Arterial Blood Glucose 113 H Arterial Blood Ionized Calcium Urine WBC (Auto) Salicylates Crossmatch 08/09/20 08/09/20 08/09/20 14:05 14:05 17:42 WBC RBC 3.58 L Hgb 10.5 L D Hct 31.6 L D MCV MCH MCHC RDW 17.8 H Plt Count 125 L Seg Neuts % (Manual) Lymphocytes % (Manual) Seg Neutrophils # Man Lymphocytes # (Manual) Haptoglobin PT INR ABG pH POC ABG pCO2 POC ABG pO2 ABG pO2 ABG O2 Saturation ABG Hemoglobin ABG Oxyhemoglobin ABG Sodium ABG Potassium ABG Chloride ABG Glucose Oxyhemoglobin Carboxyhemoglobin Sodium Potassium Chloride 111.2 H Carbon Dioxide BUN 74 H Creatinine Glucose 137 H POC Glucose 139 H Hemoglobin A1c Lactic Acid Calcium Ionized Calcium Phosphorus AST ALT Alkaline Phosphatase Ammonia Lactate Dehydrogenase Total Creatine Kinase Troponin T C-Reactive Protein Total Protein Albumin Triglycerides LDL Cholesterol Direct HDL Cholesterol Arterial Blood Glucose Arterial Blood Ionized Calcium Urine WBC (Auto) Salicylates Crossmatch 08/09/20 08/09/20 08/09/20 21:07 21:25 23:26 WBC RBC Hgb Hct MCV MCH MCHC RDW Plt Count Seg Neuts % (Manual) Lymphocytes % (Manual) Seg Neutrophils # Man Lymphocytes # (Manual) Haptoglobin PT 15.5 H INR 1.17 H ABG pH POC ABG pCO2 POC ABG pO2 ABG pO2 ABG O2 Saturation ABG Hemoglobin ABG Oxyhemoglobin ABG Sodium ABG Potassium ABG Chloride ABG Glucose Oxyhemoglobin Carboxyhemoglobin Sodium Potassium Chloride Carbon Dioxide BUN Creatinine Glucose POC Glucose 156 H 167 H Hemoglobin A1c Lactic Acid Calcium Ionized Calcium Phosphorus AST ALT Alkaline Phosphatase Ammonia Lactate Dehydrogenase Total Creatine Kinase Troponin T C-Reactive Protein Total Protein Albumin Triglycerides LDL Cholesterol Direct HDL Cholesterol Arterial Blood Glucose Arterial Blood Ionized Calcium Urine WBC (Auto) Salicylates Crossmatch 08/10/20 08/10/20 08/10/20 03:04 12:19 14:53 WBC RBC 2.06 L Hgb 6.1 L D Hct 18.6 L* D MCV MCH MCHC RDW 18.3 H Plt Count 137 L Seg Neuts % (Manual) Lymphocytes % (Manual) Seg Neutrophils # Man Lymphocytes # (Manual) Haptoglobin PT INR ABG pH POC ABG pCO2 POC ABG pO2 ABG pO2 ABG O2 Saturation ABG Hemoglobin 6.7 L ABG Oxyhemoglobin ABG Sodium ABG Potassium ABG Chloride 111.0 H ABG Glucose 116 H Oxyhemoglobin Carboxyhemoglobin Sodium Potassium Chloride Carbon Dioxide BUN Creatinine Glucose POC Glucose 57 L Hemoglobin A1c Lactic Acid Calcium Ionized Calcium Phosphorus AST ALT Alkaline Phosphatase Ammonia Lactate Dehydrogenase Total Creatine Kinase Troponin T C-Reactive Protein Total Protein Albumin Triglycerides LDL Cholesterol Direct HDL Cholesterol Arterial Blood Glucose 116 H Arterial Blood Ionized Calcium Urine WBC (Auto) Salicylates Crossmatch 08/10/20 08/10/20 08/10/20 14:53 18:08 23:11 WBC RBC Hgb Hct MCV MCH MCHC RDW Plt Count Seg Neuts % (Manual) Lymphocytes % (Manual) Seg Neutrophils # Man Lymphocytes # (Manual) Haptoglobin PT INR ABG pH POC ABG pCO2 POC ABG pO2 ABG pO2 ABG O2 Saturation ABG Hemoglobin ABG Oxyhemoglobin ABG Sodium ABG Potassium ABG Chloride ABG Glucose Oxyhemoglobin Carboxyhemoglobin Sodium 146 H Potassium Chloride 111.1 H Carbon Dioxide BUN 72 H Creatinine 1.4 H Glucose 158 H POC Glucose 68 L Hemoglobin A1c Lactic Acid Calcium 8.2 L Ionized Calcium Phosphorus AST ALT Alkaline Phosphatase Ammonia Lactate Dehydrogenase Total Creatine Kinase Troponin T C-Reactive Protein Total Protein Albumin Triglycerides LDL Cholesterol Direct HDL Cholesterol Arterial Blood Glucose Arterial Blood Ionized Calcium Urine WBC (Auto) Salicylates Crossmatch See Detail 08/11/20 08/11/20 08/11/20 04:12 05:34 05:36 WBC RBC Hgb Hct MCV MCH MCHC RDW Plt Count Seg Neuts % (Manual) Lymphocytes % (Manual) Seg Neutrophils # Man Lymphocytes # (Manual) Haptoglobin PT INR ABG pH POC ABG pCO2 POC ABG pO2 397.7 H ABG pO2 ABG O2 Saturation ABG Hemoglobin 7.6 L ABG Oxyhemoglobin 98.8 H ABG Sodium ABG Potassium ABG Chloride 113.0 H ABG Glucose 60 L Oxyhemoglobin Carboxyhemoglobin Sodium Potassium Chloride Carbon Dioxide BUN Creatinine Glucose POC Glucose 55 L 51 L Hemoglobin A1c Lactic Acid Calcium Ionized Calcium Phosphorus AST ALT Alkaline Phosphatase Ammonia Lactate Dehydrogenase Total Creatine Kinase Troponin T C-Reactive Protein Total Protein Albumin Triglycerides LDL Cholesterol Direct HDL Cholesterol Arterial Blood Glucose 60 L Arterial Blood Ionized Calcium 4.4 L Urine WBC (Auto) Salicylates Crossmatch 08/11/20 08/11/20 08/11/20 08:40 08:40 10:23 WBC RBC 2.14 L Hgb 6.2 L 6.3 L Hct 18.8 L* 19.0 L* MCV MCH MCHC RDW 17.6 H Plt Count Seg Neuts % (Manual) Lymphocytes % (Manual) Seg Neutrophils # Man Lymphocytes # (Manual) Haptoglobin PT INR ABG pH POC ABG pCO2 POC ABG pO2 ABG pO2 ABG O2 Saturation ABG Hemoglobin ABG Oxyhemoglobin ABG Sodium ABG Potassium ABG Chloride ABG Glucose Oxyhemoglobin Carboxyhemoglobin Sodium 147 H Potassium Chloride 112.3 H Carbon Dioxide BUN 62 H Creatinine 1.5 H Glucose 73 L POC Glucose Hemoglobin A1c Lactic Acid Calcium 7.9 L Ionized Calcium Phosphorus AST ALT Alkaline Phosphatase Ammonia Lactate Dehydrogenase Total Creatine Kinase Troponin T C-Reactive Protein Total Protein Albumin Triglycerides LDL Cholesterol Direct HDL Cholesterol Arterial Blood Glucose Arterial Blood Ionized Calcium Urine WBC (Auto) Salicylates Crossmatch 08/11/20 08/11/20 08/11/20 11:56 17:43 18:40 WBC RBC Hgb Hct MCV MCH MCHC RDW Plt Count Seg Neuts % (Manual) Lymphocytes % (Manual) Seg Neutrophils # Man Lymphocytes # (Manual) Haptoglobin PT 15.7 H INR 1.19 H ABG pH POC ABG pCO2 POC ABG pO2 ABG pO2 ABG O2 Saturation ABG Hemoglobin ABG Oxyhemoglobin ABG Sodium ABG Potassium ABG Chloride ABG Glucose Oxyhemoglobin Carboxyhemoglobin Sodium Potassium Chloride Carbon Dioxide BUN Creatinine Glucose POC Glucose 53 L 113 H Hemoglobin A1c Lactic Acid Calcium Ionized Calcium Phosphorus AST ALT Alkaline Phosphatase Ammonia Lactate Dehydrogenase Total Creatine Kinase Troponin T C-Reactive Protein Total Protein Albumin Triglycerides LDL Cholesterol Direct HDL Cholesterol Arterial Blood Glucose Arterial Blood Ionized Calcium Urine WBC (Auto) Salicylates Crossmatch 08/11/20 08/11/20 08/11/20 18:40 20:10 22:13 WBC RBC Hgb 6.2 L 6.1 L Hct 18.4 L* 18.3 L* MCV MCH MCHC RDW Plt Count Seg Neuts % (Manual) Lymphocytes % (Manual) Seg Neutrophils # Man Lymphocytes # (Manual) Haptoglobin PT INR ABG pH POC ABG pCO2 POC ABG pO2 163.6 H ABG pO2 ABG O2 Saturation ABG Hemoglobin 7.7 L ABG Oxyhemoglobin 98.3 H ABG Sodium ABG Potassium ABG Chloride 112.0 H ABG Glucose 119 H Oxyhemoglobin Carboxyhemoglobin Sodium Potassium Chloride Carbon Dioxide BUN Creatinine Glucose POC Glucose Hemoglobin A1c Lactic Acid Calcium Ionized Calcium Phosphorus AST ALT Alkaline Phosphatase Ammonia Lactate Dehydrogenase Total Creatine Kinase Troponin T C-Reactive Protein Total Protein Albumin Triglycerides LDL Cholesterol Direct HDL Cholesterol Arterial Blood Glucose 119 H Arterial Blood Ionized Calcium 4.4 L Urine WBC (Auto) Salicylates Crossmatch 08/11/20 08/12/20 08/12/20 23:32 04:43 04:43 WBC RBC Hgb Hct MCV MCH MCHC RDW Plt Count Seg Neuts % (Manual) Lymphocytes % (Manual) Seg Neutrophils # Man Lymphocytes # (Manual) Haptoglobin PT INR ABG pH POC ABG pCO2 POC ABG pO2 ABG pO2 ABG O2 Saturation ABG Hemoglobin ABG Oxyhemoglobin ABG Sodium ABG Potassium ABG Chloride ABG Glucose Oxyhemoglobin Carboxyhemoglobin Sodium Potassium Chloride Carbon Dioxide BUN Creatinine Glucose POC Glucose 106 H Hemoglobin A1c Lactic Acid Calcium Ionized Calcium Phosphorus AST 57 H ALT Alkaline Phosphatase 288 H Ammonia Lactate Dehydrogenase 239 H Total Creatine Kinase Troponin T C-Reactive Protein Total Protein 6.0 L Albumin 1.7 L Triglycerides LDL Cholesterol Direct HDL Cholesterol Arterial Blood Glucose Arterial Blood Ionized Calcium Urine WBC (Auto) Salicylates Crossmatch 08/12/20 08/12/20 08/12/20 04:43 04:53 05:07 WBC RBC 3.03 L Hgb 8.5 L Hct 25.6 L D MCV MCH MCHC RDW 18.4 H Plt Count Seg Neuts % (Manual) 88.0 H Lymphocytes % (Manual) 6.0 L Seg Neutrophils # Man Lymphocytes # (Manual) 0.4 L Haptoglobin 420 H PT INR ABG pH POC ABG pCO2 POC ABG pO2 ABG pO2 ABG O2 Saturation ABG Hemoglobin ABG Oxyhemoglobin ABG Sodium ABG Potassium ABG Chloride ABG Glucose Oxyhemoglobin Carboxyhemoglobin Sodium Potassium Chloride Carbon Dioxide BUN Creatinine Glucose POC Glucose 139 H Hemoglobin A1c Lactic Acid Calcium Ionized Calcium Phosphorus AST ALT Alkaline Phosphatase Ammonia Lactate Dehydrogenase Total Creatine Kinase Troponin T C-Reactive Protein Total Protein Albumin Triglycerides LDL Cholesterol Direct HDL Cholesterol Arterial Blood Glucose Arterial Blood Ionized Calcium Urine WBC (Auto) Salicylates Crossmatch 08/12/20 08/12/20 08/12/20 07:55 07:55 11:17 WBC RBC 2.90 L Hgb 8.1 L Hct 24.4 L MCV MCH MCHC RDW 18.9 H Plt Count Seg Neuts % (Manual) Lymphocytes % (Manual) Seg Neutrophils # Man Lymphocytes # (Manual) Haptoglobin PT INR ABG pH POC ABG pCO2 POC ABG pO2 ABG pO2 ABG O2 Saturation ABG Hemoglobin ABG Oxyhemoglobin ABG Sodium ABG Potassium ABG Chloride ABG Glucose Oxyhemoglobin Carboxyhemoglobin Sodium Potassium 3.3 L Chloride 109.8 H Carbon Dioxide BUN 52 H Creatinine Glucose 153 H POC Glucose 150 H Hemoglobin A1c Lactic Acid Calcium 8.1 L Ionized Calcium Phosphorus AST ALT Alkaline Phosphatase Ammonia Lactate Dehydrogenase Total Creatine Kinase Troponin T C-Reactive Protein Total Protein Albumin Triglycerides LDL Cholesterol Direct HDL Cholesterol Arterial Blood Glucose Arterial Blood Ionized Calcium Urine WBC (Auto) Salicylates Crossmatch 08/12/20 08/12/20 08/12/20 13:05 17:29 18:28 WBC RBC Hgb Hct MCV MCH MCHC RDW Plt Count Seg Neuts % (Manual) Lymphocytes % (Manual) Seg Neutrophils # Man Lymphocytes # (Manual) Haptoglobin PT INR ABG pH POC ABG pCO2 POC ABG pO2 ABG pO2 ABG O2 Saturation ABG Hemoglobin ABG Oxyhemoglobin ABG Sodium ABG Potassium ABG Chloride ABG Glucose Oxyhemoglobin Carboxyhemoglobin Sodium Potassium Chloride Carbon Dioxide BUN Creatinine Glucose POC Glucose 143 H 158 H 158 H Hemoglobin A1c Lactic Acid Calcium Ionized Calcium Phosphorus AST ALT Alkaline Phosphatase Ammonia Lactate Dehydrogenase Total Creatine Kinase Troponin T C-Reactive Protein Total Protein Albumin Triglycerides LDL Cholesterol Direct HDL Cholesterol Arterial Blood Glucose Arterial Blood Ionized Calcium Urine WBC (Auto) Salicylates Crossmatch 08/12/20 08/13/20 08/13/20 23:22 05:32 09:58 WBC RBC 2.79 L Hgb 7.9 L Hct 23.5 L MCV MCH MCHC RDW 18.9 H Plt Count Seg Neuts % (Manual) Lymphocytes % (Manual) Seg Neutrophils # Man Lymphocytes # (Manual) Haptoglobin PT INR ABG pH POC ABG pCO2 POC ABG pO2 ABG pO2 ABG O2 Saturation ABG Hemoglobin ABG Oxyhemoglobin ABG Sodium ABG Potassium ABG Chloride ABG Glucose Oxyhemoglobin Carboxyhemoglobin Sodium Potassium Chloride Carbon Dioxide BUN Creatinine Glucose POC Glucose 191 H 131 H Hemoglobin A1c Lactic Acid Calcium Ionized Calcium Phosphorus AST ALT Alkaline Phosphatase Ammonia Lactate Dehydrogenase Total Creatine Kinase Troponin T C-Reactive Protein Total Protein Albumin Triglycerides LDL Cholesterol Direct HDL Cholesterol Arterial Blood Glucose Arterial Blood Ionized Calcium Urine WBC (Auto) Salicylates Crossmatch 06/28/21 06/28/21 06/28/21 09:58 12:07 12:10 WBC RBC Hgb Hct MCV MCH MCHC RDW Plt Count Seg Neuts % (Manual) Lymphocytes % (Manual) Seg Neutrophils # Man Lymphocytes # (Manual) Haptoglobin PT INR ABG pH POC ABG pCO2 POC ABG pO2 ABG pO2 ABG O2 Saturation ABG Hemoglobin ABG Oxyhemoglobin ABG Sodium ABG Potassium ABG Chloride ABG Glucose Oxyhemoglobin Carboxyhemoglobin Sodium Potassium 3.5 L Chloride 109.1 H Carbon Dioxide BUN 51 H Creatinine Glucose 168 H POC Glucose 142 H 159 H Hemoglobin A1c Lactic Acid Calcium 8.0 L Ionized Calcium Phosphorus AST ALT Alkaline Phosphatase Ammonia Lactate Dehydrogenase Total Creatine Kinase Troponin T C-Reactive Protein Total Protein Albumin Triglycerides LDL Cholesterol Direct HDL Cholesterol Arterial Blood Glucose Arterial Blood Ionized Calcium Urine WBC (Auto) Salicylates Crossmatch 08/13/20 08/13/20 08/14/20 17:17 23:17 05:10 WBC RBC Hgb Hct MCV MCH MCHC RDW Plt Count Seg Neuts % (Manual) Lymphocytes % (Manual) Seg Neutrophils # Man Lymphocytes # (Manual) Haptoglobin PT INR ABG pH POC ABG pCO2 POC ABG pO2 ABG pO2 ABG O2 Saturation ABG Hemoglobin ABG Oxyhemoglobin ABG Sodium ABG Potassium ABG Chloride ABG Glucose Oxyhemoglobin Carboxyhemoglobin Sodium Potassium Chloride Carbon Dioxide BUN Creatinine Glucose POC Glucose 137 H 157 H 153 H Hemoglobin A1c Lactic Acid Calcium Ionized Calcium Phosphorus AST ALT Alkaline Phosphatase Ammonia Lactate Dehydrogenase Total Creatine Kinase Troponin T C-Reactive Protein Total Protein Albumin Triglycerides LDL Cholesterol Direct HDL Cholesterol Arterial Blood Glucose Arterial Blood Ionized Calcium Urine WBC (Auto) Salicylates Crossmatch 08/14/20 08/14/20 08/14/20 11:35 12:05 13:01 WBC RBC 2.73 L Hgb 7.7 L Hct 22.6 L MCV 83 L MCH MCHC RDW 18.4 H Plt Count Seg Neuts % (Manual) Lymphocytes % (Manual) Seg Neutrophils # Man Lymphocytes # (Manual) Haptoglobin PT INR ABG pH POC ABG pCO2 POC ABG pO2 ABG pO2 75.1 L ABG O2 Saturation ABG Hemoglobin 7.7 L ABG Oxyhemoglobin ABG Sodium ABG Potassium ABG Chloride ABG Glucose Oxyhemoglobin 94.8 L Carboxyhemoglobin Sodium Potassium Chloride Carbon Dioxide BUN Creatinine Glucose POC Glucose 175 H Hemoglobin A1c Lactic Acid Calcium Ionized Calcium Phosphorus AST ALT Alkaline Phosphatase Ammonia Lactate Dehydrogenase Total Creatine Kinase Troponin T C-Reactive Protein Total Protein Albumin Triglycerides LDL Cholesterol Direct HDL Cholesterol Arterial Blood Glucose Arterial Blood Ionized Calcium Urine WBC (Auto) Salicylates Crossmatch 08/14/20 08/14/20 08/14/20 13:01 17:55 23:25 WBC RBC Hgb Hct MCV MCH MCHC RDW Plt Count Seg Neuts % (Manual) Lymphocytes % (Manual) Seg Neutrophils # Man Lymphocytes # (Manual) Haptoglobin PT INR ABG pH POC ABG pCO2 POC ABG pO2 ABG pO2 ABG O2 Saturation ABG Hemoglobin ABG Oxyhemoglobin ABG Sodium ABG Potassium ABG Chloride ABG Glucose Oxyhemoglobin Carboxyhemoglobin Sodium Potassium Chloride 107.3 H Carbon Dioxide BUN 49 H Creatinine Glucose 191 H POC Glucose 178 H 150 H Hemoglobin A1c Lactic Acid Calcium 7.9 L Ionized Calcium Phosphorus AST ALT Alkaline Phosphatase Ammonia Lactate Dehydrogenase Total Creatine Kinase Troponin T C-Reactive Protein Total Protein Albumin Triglycerides LDL Cholesterol Direct HDL Cholesterol Arterial Blood Glucose Arterial Blood Ionized Calcium Urine WBC (Auto) Salicylates Crossmatch 08/15/20 08/15/20 08/15/20 04:04 10:28 10:38 WBC RBC 2.94 L Hgb 8.3 L Hct 24.6 L MCV MCH MCHC RDW 18.7 H Plt Count 112 L Seg Neuts % (Manual) Lymphocytes % (Manual) Seg Neutrophils # Man Lymphocytes # (Manual) Haptoglobin PT INR ABG pH POC ABG pCO2 POC ABG pO2 ABG pO2 ABG O2 Saturation ABG Hemoglobin ABG Oxyhemoglobin ABG Sodium ABG Potassium ABG Chloride ABG Glucose Oxyhemoglobin Carboxyhemoglobin Sodium Potassium Chloride 107.4 H Carbon Dioxide BUN 47 H Creatinine Glucose 51 L POC Glucose 44 L Hemoglobin A1c Lactic Acid Calcium 8.3 L Ionized Calcium Phosphorus AST ALT Alkaline Phosphatase Ammonia Lactate Dehydrogenase Total Creatine Kinase Troponin T C-Reactive Protein Total Protein Albumin Triglycerides LDL Cholesterol Direct HDL Cholesterol Arterial Blood Glucose Arterial Blood Ionized Calcium Urine WBC (Auto) Salicylates Crossmatch 08/15/20 08/15/20 08/15/20 17:31 23:15 Unknown WBC RBC Hgb Hct MCV MCH MCHC RDW Plt Count Seg Neuts % (Manual) Lymphocytes % (Manual) Seg Neutrophils # Man Lymphocytes # (Manual) Haptoglobin PT INR ABG pH POC ABG pCO2 POC ABG pO2 ABG pO2 77.7 L ABG O2 Saturation ABG Hemoglobin 9.2 L ABG Oxyhemoglobin ABG Sodium ABG Potassium ABG Chloride ABG Glucose Oxyhemoglobin 94.9 L Carboxyhemoglobin Sodium Potassium Chloride Carbon Dioxide BUN Creatinine Glucose POC Glucose 64 L 114 H Hemoglobin A1c Lactic Acid Calcium Ionized Calcium Phosphorus AST ALT Alkaline Phosphatase Ammonia Lactate Dehydrogenase Total Creatine Kinase Troponin T C-Reactive Protein Total Protein Albumin Triglycerides LDL Cholesterol Direct HDL Cholesterol Arterial Blood Glucose Arterial Blood Ionized Calcium Urine WBC (Auto) Salicylates Crossmatch 08/16/20 08/16/20 08/16/20 05:09 08:02 08:02 WBC 4.1 L RBC 2.70 L Hgb 7.6 L Hct 22.9 L MCV MCH MCHC RDW 18.5 H Plt Count Seg Neuts % (Manual) Lymphocytes % (Manual) Seg Neutrophils # Man Lymphocytes # (Manual) Haptoglobin PT INR ABG pH POC ABG pCO2 POC ABG pO2 ABG pO2 ABG O2 Saturation ABG Hemoglobin ABG Oxyhemoglobin ABG Sodium ABG Potassium ABG Chloride ABG Glucose Oxyhemoglobin Carboxyhemoglobin Sodium Potassium Chloride 110.1 H Carbon Dioxide BUN 45 H Creatinine Glucose 187 H POC Glucose 204 H Hemoglobin A1c Lactic Acid Calcium 7.7 L Ionized Calcium Phosphorus AST ALT Alkaline Phosphatase Ammonia Lactate Dehydrogenase Total Creatine Kinase Troponin T C-Reactive Protein Total Protein Albumin Triglycerides LDL Cholesterol Direct HDL Cholesterol Arterial Blood Glucose Arterial Blood Ionized Calcium Urine WBC (Auto) Salicylates Crossmatch 08/16/20 08/16/20 08/17/20 12:28 17:21 00:20 WBC RBC Hgb Hct MCV MCH MCHC RDW Plt Count Seg Neuts % (Manual) Lymphocytes % (Manual) Seg Neutrophils # Man Lymphocytes # (Manual) Haptoglobin PT INR ABG pH POC ABG pCO2 POC ABG pO2 ABG pO2 ABG O2 Saturation ABG Hemoglobin ABG Oxyhemoglobin ABG Sodium ABG Potassium ABG Chloride ABG Glucose Oxyhemoglobin Carboxyhemoglobin Sodium Potassium Chloride Carbon Dioxide BUN Creatinine Glucose POC Glucose 126 H 107 H 194 H Hemoglobin A1c Lactic Acid Calcium Ionized Calcium Phosphorus AST ALT Alkaline Phosphatase Ammonia Lactate Dehydrogenase Total Creatine Kinase Troponin T C-Reactive Protein Total Protein Albumin Triglycerides LDL Cholesterol Direct HDL Cholesterol Arterial Blood Glucose Arterial Blood Ionized Calcium Urine WBC (Auto) Salicylates Crossmatch 08/17/20 08/17/20 08/17/20 06:02 09:40 09:40 WBC RBC 2.78 L Hgb 7.9 L Hct 24.1 L MCV MCH MCHC RDW 19.3 H Plt Count Seg Neuts % (Manual) Lymphocytes % (Manual) Seg Neutrophils # Man Lymphocytes # (Manual) Haptoglobin PT INR ABG pH POC ABG pCO2 POC ABG pO2 ABG pO2 ABG O2 Saturation ABG Hemoglobin ABG Oxyhemoglobin ABG Sodium ABG Potassium ABG Chloride ABG Glucose Oxyhemoglobin Carboxyhemoglobin Sodium Potassium Chloride 107.5 H Carbon Dioxide BUN 42 H Creatinine Glucose 205 H POC Glucose 199 H Hemoglobin A1c Lactic Acid Calcium Ionized Calcium Phosphorus AST 69 H ALT 93 H Alkaline Phosphatase 556 H Ammonia Lactate Dehydrogenase Total Creatine Kinase Troponin T C-Reactive Protein Total Protein 6.2 L Albumin 1.9 L Triglycerides LDL Cholesterol Direct HDL Cholesterol Arterial Blood Glucose Arterial Blood Ionized Calcium Urine WBC (Auto) Salicylates Crossmatch 08/17/20 08/17/20 08/17/20 11:51 12:54 16:50 WBC RBC Hgb Hct MCV MCH MCHC RDW Plt Count Seg Neuts % (Manual) Lymphocytes % (Manual) Seg Neutrophils # Man Lymphocytes # (Manual) Haptoglobin PT INR ABG pH 7.473 H POC ABG pCO2 POC ABG pO2 81.2 L ABG pO2 ABG O2 Saturation ABG Hemoglobin 7.7 L ABG Oxyhemoglobin ABG Sodium ABG Potassium ABG Chloride 110.0 H ABG Glucose 228 H Oxyhemoglobin Carboxyhemoglobin Sodium Potassium Chloride Carbon Dioxide BUN Creatinine Glucose POC Glucose 204 H 188 H Hemoglobin A1c Lactic Acid Calcium Ionized Calcium Phosphorus AST ALT Alkaline Phosphatase Ammonia Lactate Dehydrogenase Total Creatine Kinase Troponin T C-Reactive Protein Total Protein Albumin Triglycerides LDL Cholesterol Direct HDL Cholesterol Arterial Blood Glucose 228 H Arterial Blood Ionized Calcium Urine WBC (Auto) Salicylates Crossmatch 08/17/20 08/18/20 08/18/20 23:07 05:00 05:12 WBC RBC Hgb Hct MCV MCH MCHC RDW Plt Count Seg Neuts % (Manual) Lymphocytes % (Manual) Seg Neutrophils # Man Lymphocytes # (Manual) Haptoglobin PT INR ABG pH 7.480 H POC ABG pCO2 POC ABG pO2 ABG pO2 ABG O2 Saturation ABG Hemoglobin 7.9 L ABG Oxyhemoglobin ABG Sodium ABG Potassium ABG Chloride 111.0 H ABG Glucose 137 H Oxyhemoglobin Carboxyhemoglobin Sodium Potassium Chloride Carbon Dioxide BUN Creatinine Glucose POC Glucose 187 H 118 H Hemoglobin A1c Lactic Acid Calcium Ionized Calcium Phosphorus AST ALT Alkaline Phosphatase Ammonia Lactate Dehydrogenase Total Creatine Kinase Troponin T C-Reactive Protein Total Protein Albumin Triglycerides LDL Cholesterol Direct HDL Cholesterol Arterial Blood Glucose 137 H Arterial Blood Ionized Calcium 4.5 L Urine WBC (Auto) Salicylates Crossmatch 08/18/20 08/18/20 08/18/20 06:46 06:46 08:03 WBC RBC 3.37 L Hgb 9.5 L Hct 29.3 L MCV MCH MCHC RDW 19.3 H Plt Count Seg Neuts % (Manual) Lymphocytes % (Manual) Seg Neutrophils # Man Lymphocytes # (Manual) Haptoglobin PT INR ABG pH POC ABG pCO2 POC ABG pO2 ABG pO2 ABG O2 Saturation ABG Hemoglobin ABG Oxyhemoglobin ABG Sodium ABG Potassium ABG Chloride ABG Glucose Oxyhemoglobin Carboxyhemoglobin Sodium Potassium Chloride 108.2 H Carbon Dioxide BUN 41 H Creatinine Glucose 120 H POC Glucose 111 H Hemoglobin A1c Lactic Acid Calcium Ionized Calcium Phosphorus AST 95 H ALT 122 H Alkaline Phosphatase 738 H Ammonia Lactate Dehydrogenase Total Creatine Kinase Troponin T C-Reactive Protein Total Protein Albumin 1.8 L Triglycerides LDL Cholesterol Direct HDL Cholesterol Arterial Blood Glucose Arterial Blood Ionized Calcium Urine WBC (Auto) Salicylates Crossmatch 08/18/20 08/18/20 08/18/20 11:21 17:47 23:19 WBC RBC Hgb Hct MCV MCH MCHC RDW Plt Count Seg Neuts % (Manual) Lymphocytes % (Manual) Seg Neutrophils # Man Lymphocytes # (Manual) Haptoglobin PT INR ABG pH POC ABG pCO2 POC ABG pO2 ABG pO2 ABG O2 Saturation ABG Hemoglobin ABG Oxyhemoglobin ABG Sodium ABG Potassium ABG Chloride ABG Glucose Oxyhemoglobin Carboxyhemoglobin Sodium Potassium Chloride Carbon Dioxide BUN Creatinine Glucose POC Glucose 151 H 178 H 209 H Hemoglobin A1c Lactic Acid Calcium Ionized Calcium Phosphorus AST ALT Alkaline Phosphatase Ammonia Lactate Dehydrogenase Total Creatine Kinase Troponin T C-Reactive Protein Total Protein Albumin Triglycerides LDL Cholesterol Direct HDL Cholesterol Arterial Blood Glucose Arterial Blood Ionized Calcium Urine WBC (Auto) Salicylates Crossmatch 08/19/20 08/19/20 08/19/20 05:31 09:56 12:16 WBC RBC Hgb Hct MCV MCH MCHC RDW Plt Count Seg Neuts % (Manual) Lymphocytes % (Manual) Seg Neutrophils # Man Lymphocytes # (Manual) Haptoglobin PT INR ABG pH POC ABG pCO2 POC ABG pO2 ABG pO2 ABG O2 Saturation ABG Hemoglobin ABG Oxyhemoglobin ABG Sodium ABG Potassium ABG Chloride ABG Glucose Oxyhemoglobin Carboxyhemoglobin Sodium Potassium Chloride Carbon Dioxide BUN 43 H Creatinine Glucose 241 H POC Glucose 211 H 241 H Hemoglobin A1c Lactic Acid Calcium 7.9 L Ionized Calcium Phosphorus AST 77 H ALT 114 H Alkaline Phosphatase 621 H Ammonia Lactate Dehydrogenase Total Creatine Kinase Troponin T C-Reactive Protein Total Protein 6.0 L Albumin 2.0 L Triglycerides LDL Cholesterol Direct HDL Cholesterol Arterial Blood Glucose Arterial Blood Ionized Calcium Urine WBC (Auto) Salicylates Crossmatch 08/19/20 08/19/20 08/19/20 14:23 14:25 17:03 WBC RBC Hgb Hct MCV MCH MCHC RDW Plt Count Seg Neuts % (Manual) Lymphocytes % (Manual) Seg Neutrophils # Man Lymphocytes # (Manual) Haptoglobin PT INR ABG pH POC ABG pCO2 POC ABG pO2 ABG pO2 ABG O2 Saturation ABG Hemoglobin ABG Oxyhemoglobin ABG Sodium ABG Potassium ABG Chloride ABG Glucose Oxyhemoglobin Carboxyhemoglobin Sodium Potassium Chloride Carbon Dioxide BUN Creatinine Glucose POC Glucose 201 H Hemoglobin A1c Lactic Acid Calcium Ionized Calcium Phosphorus AST ALT Alkaline Phosphatase Ammonia Lactate Dehydrogenase Total Creatine Kinase Troponin T C-Reactive Protein 9.60 H Total Protein Albumin Triglycerides LDL Cholesterol Direct HDL Cholesterol Arterial Blood Glucose Arterial Blood Ionized Calcium Urine WBC (Auto) 128.0 H Salicylates Crossmatch 08/19/20 08/20/20 23:26 05:19 WBC RBC Hgb Hct MCV MCH MCHC RDW Plt Count Seg Neuts % (Manual) Lymphocytes % (Manual) Seg Neutrophils # Man Lymphocytes # (Manual) Haptoglobin PT INR ABG pH POC ABG pCO2 POC ABG pO2 ABG pO2 ABG O2 Saturation ABG Hemoglobin ABG Oxyhemoglobin ABG Sodium ABG Potassium ABG Chloride ABG Glucose Oxyhemoglobin Carboxyhemoglobin Sodium Potassium Chloride Carbon Dioxide BUN Creatinine Glucose POC Glucose 221 H 211 H Hemoglobin A1c Lactic Acid Calcium Ionized Calcium Phosphorus AST ALT Alkaline Phosphatase Ammonia Lactate Dehydrogenase Total Creatine Kinase Troponin T C-Reactive Protein Total Protein Albumin Triglycerides LDL Cholesterol Direct HDL Cholesterol Arterial Blood Glucose Arterial Blood Ionized Calcium Urine WBC (Auto) Salicylates Crossmatch Allied health notes reviewed: nursing
[2020-08-20] MEDS: FAMOTIDINE 20 MG TAB PO SCH ×2 (12:30→21:46)
[2020-08-20] MEDS: GLYCOPYRROLATE 2 MG TAB PO SCH ×2 (13:34→21:46)
[2020-08-20] MEDS ORDERED: FUROSEMIDE 40 MG/4 ML INJ IV ONE (14:00)
[2020-08-20] MEDS ORDERED: VANCOMYCIN PHARMACY TO DOSE IV SCH (14:00)
--- NOTE | 2020-08-20 14:05 | Progress Note ---
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 Preliminary Ashley/IV: Voiding Method Indwelling Catheter Active Medications - Current Medications Current Medications: Generic Name Dose Route Start Last Admin Trade Name Freq PRN Reason Stop Dose Admin Acetaminophen 650 mg 07/28/20 14:27 08/08/20 21:50 Acetaminophen 325 Mg Tab PO 650 mg Q6H PRN Administration Pain, Mild (1-3) Albuterol 2.5 mg 07/28/20 14:27 08/05/20 14:27 Albuterol 2.5 Mg/3 Ml Nebu IH 2.5 mg Q3H PRN Administration Shortness Of Breath Amlodipine Besylate 10 mg 08/15/20 10:00 08/20/20 11:06 Amlodipine 10 Mg Tab PO 10 mg QDAY [place] Administration Lipase/Protease/Amylase 1 each 07/29/20 09:55 Lipase 10,500/Protease 25,000/Amylase 43,750 (Units) Dr Velasquez FEEDTUBE PRN PRN For Clogged Feeding Tube Ascorbic Acid 500 mg 08/01/20 22:00 08/20/20 11:05 Ascorbic Acid 500 Mg Tab PO 500 mg BID [place] Administration Bisacodyl 10 mg 08/16/20 14:28 Bisacodyl 10 Mg Rect Supp MT QDAY PRN Constipation Dextrose 50 ml 07/29/20 15:46 08/15/20 10:45 Dextrose 50% In Water (25gm) 50 Ml Syringe IV 50 ml Q30MIN PRN Administration Hypoglycemia Protocol Enoxaparin Sodium 40 mg 08/17/20 10:00 08/20/20 11:06 Enoxaparin 40 Mg/0.4 Ml Inj SUB-Q 40 mg QDAY@1000 [place] Administration Famotidine 20 mg 07/30/20 10:00 08/20/20 12:30 Famotidine 20 Mg Tab PO 20 mg BID [place] Administration Glycopyrrolate 2 mg 08/20/20 14:00 08/20/20 13:34 Glycopyrrolate 2 Mg Tab PO 2 mg TID [place] Administration Hydralazine HCl 10 mg 08/07/20 10:49 Hydralazine 20 Mg/1 Ml Inj IV Q4HR PRN Give if SBP>180 DBP>100 Hydralazine HCl 10 mg 08/18/20 14:00 08/20/20 13:29 Hydralazine 10 Mg Tab PO 10 mg Q8HR [place] Administration Hydromorphone HCl 1 mg 08/07/20 12:28 08/12/20 18:19 Hydromorphone 1 Mg/1 Ml Inj IV 1 mg Q4H PRN Administration Pain , Severe (7-10) Hydrophilic Ointment 1 applic 07/28/20 09:30 Lip Therapy Vaseline TP Q2H PRN Dry Lips Micafungin Sodium 100 mg/ 100 mls @ 100 mls/hr 08/17/20 12:00 08/20/20 11:07 Sodium Chloride IV 08/31/20 12:59 200 mls/hr Q24H [place] Administration Protocol Cefepime HCl 2 gm in 100 mls @ 200 mls/hr 08/20/20 10:00 08/20/20 11:07 Cefepime/Ns 2 Gm/100 Ml IV 08/24/20 22:29 200 mls/hr Q12HR [place] Administration Protocol Vancomycin HCl 1,500 mg/ 530 mls @ 333.333 mls/hr 08/20/20 14:00 Sodium Chloride IV Q24H [place] Insulin Glargine 15 units 08/20/20 10:00 08/20/20 11:07 Insulin Glargine 100 Units/Ml SUB-Q 15 units DAILY [place] Administration Insulin Human Lispro 0 unit 08/04/20 12:00 08/20/20 12:27 Insulin Lispro 100 Unit/Ml SUB-Q 4 unit Q6HR [place] Administration Protocol Metoprolol Tartrate 50 mg 08/17/20 10:00 08/20/20 11:06 Metoprolol Tartrate 50 Mg Tab PO 50 mg BID [place] Administration Multi-Ingred Cream/Lotion/Oil/Oint 1 applic 07/28/20 09:30 Mineral Oil/Petrolatum, White Ophth Oint 3.5 Gm OU Q4H PRN Dry Eye(s) Scopolamine 1 each 08/07/20 13:00 08/19/20 11:36 Scopolamine Transdermal Patch 72 Hr TD 1 each Q3D [place] Administration Senna/Docusate Sodium 1 tab 07/28/20 22:00 08/20/20 11:05 Sennosides/Docusate Sodium 8.6/50 Mg Tab FEEDTUBE 1 tab BID [place] Administration Simple Syrup 15 ml 07/29/20 09:55 Simple Syrup 15 Ml FEEDTUBE PRN PRN Hypoglycemia Simple Syrup 30 ml 07/29/20 09:55 Simple Syrup 15 Ml FEEDTUBE PRN PRN Hypoglycemia Sodium Bicarbonate 325 mg 07/29/20 09:55 Sodium Bicarbonate 325 Mg Tab FEEDTUBE PRN PRN For Clogged Feeding Tube Sodium Chloride 10 ml 07/28/20 22:00 08/20/20 11:09 Sodium Chloride 0.9% 10 Ml Flush Syringe IV 10 ml BID [place] Administration Sodium Chloride 10 ml 07/28/20 14:27 Sodium Chloride 0.9% 10 Ml Flush Syringe IV PRN PRN LINE FLUSH Zinc Sulfate 220 mg 08/01/20 15:00 08/20/20 11:09 Zinc Sulfate 220 Mg Cap PO 220 mg BID [place] Administration Nutrition/Malnutrition Assess - Dietary Evaluation Nutrition/Malnutrition Findings: Nutrition Notes Start: 07/29/20 09:47 Freq: Status: Active Protocol: Document 08/17/20 11:01 (Rec: 08/17/20 11:05 [id number]) Nutrition Notes Initial or Follow up Reassessment Current Diagnosis Acute Kidney Injury, Respiratory Failure Other Pertinent Diagnosis Acute encephalopathy, Pneu, UTI, Quadriplegia Current Diet Vital AF 1.2 at 65 ml/hr Labs/Tests BG 205 Pertinent Medications Humalog Height 6 ft Weight 79.2 kg [place] Body Weight (kg) 80.90 BMI 23.6 Weight Status Appropriate Subjective/Other Information FU for TF tolerance. Observed TF running at goal rate and pt tolerating. Percent of energy/protein needs met: 98%/100% Burn Absent Trauma Absent Current % PO Negligible Minimum of two criteria No Fluid Accumulation Moderate to Severe (severe) #2 Nutrition Diagnosis Increased nutrient needs ( specify in comment below) Diagnosis Progress(for reassessment Continues documentation) #1 Nutrition Diagnosis Inadequate oral intake Diagnosis Progress(for reassessment Continues documentation) Is patient on ventilator? Yes Is Patient Ambulatory and/or Out of Bed No REE-([facility]-confined to bed) 0613.772 Calculation Used for Recommendations [facility] Additional Notes Pro needs 1.2-2g/k-163g/ day Fluid needs 1ml/kcal Nutrition Intervention Change Diet Order: Continue Nutrition Support: Continue Vital AF 1.2 at 65ml/ hr with 100 ml water flush q4h . Kcal 1,872 Protein (gm) 117 Fluid (mL) 1,265 Add Supplement/Snack (indicate name/kcal Reji BID /protein ) Provides kCal: 190 Provides Protein (gm) 5 Goal #1 TF tolerance Goal #2 TF to meet at least 80% energy and pro needs Anticipated Discharge Needs: Unable to determine at this time Follow-Up By: 08/22/20 Additional Comments FU for TF tolerance, BG, Reji administration
[2020-08-20 14:25] LABS: Hematocrit 23.9 % (35.5-45.6); Hemoglobin 8.1 gm/dl (11.8-15.2); Mean Corpuscular HGB Conc 34 % (32-34); Mean Corpuscular Volume 85 fl (84-94); Platelet Count 254 K/mm3 (140-440); Red Blood Count 2.82 M/mm3 (3.65-5.03); Red Cell Distribution Width 18.7 % (13.2-15.2)
[2020-08-20] MEDS: VANCOMYCIN 1,500 MG in SODIUM CHLORIDE 0.9% 500 ML 500 ML IV SCH (14:30)
[2020-08-20 14:45] LABS: Alanine Aminotransferase 138 units/L (7-56); Albumin 2.1 g/dL (3.9-5); Blood Urea Nitrogen 41 mg/dL (9-20); Calcium 8.1 mg/dL (8.4-10.2); Hemolysis Index 13
[2020-08-20 14:53] LABS: BUN/Creatinine Ratio 59
[2020-08-20] MEDS ORDERED: FUROSEMIDE 40 MG TAB ONE (18:01)
[2020-08-20] MEDS ORDERED: FUROSEMIDE 40 MG/4 ML INJ ONE ×2 (18:03→18:04)
[2020-08-21] MEDS: hydrALAZINE 10 MG TAB PO SCH ×4 (00:48→21:00)
[2020-08-21] MEDS: FREE WATER PO SCH ×5 (00:48→17:25)
[2020-08-21] MEDS: INSULIN LISPRO 100 UNIT/ML SUB-Q SCH ×4 (01:07→18:08)
[2020-08-21] MEDS: ZINC SULFATE 220 MG CAP PO SCH ×2 (09:25→21:00)
[2020-08-21] MEDS: amLODIPine 10 MG TAB PO SCH (09:25)
[2020-08-21] MEDS: GLYCOPYRROLATE 2 MG TAB PO SCH ×3 (09:25→21:00)
[2020-08-21] MEDS: METOPROLOL TARTRATE 50 MG TAB PO SCH ×2 (09:25→21:01)
[2020-08-21] MEDS: ENOXAPARIN 40 MG/0.4 ML INJ SUB-Q SCH (09:26)
[2020-08-21] MEDS: SENNOSIDES/DOCUSATE SODIUM 8.6/50 MG TAB FEEDTUBE SCH ×2 (09:26→21:01)
[2020-08-21] MEDS: ASCORBIC ACID 500 MG TAB PO SCH (09:26)
[2020-08-21] MEDS: FAMOTIDINE 20 MG TAB PO SCH ×2 (09:26→21:01)
[2020-08-21] MEDS: INSULIN GLARGINE 100 UNITS/ML SUB-Q SCH (09:26)
[2020-08-21] MEDS ORDERED: INSULIN GLARGINE 100 UNITS/ML SUB-Q ONE (10:00)
--- NOTE | 2020-08-21 10:13 | Progress Note ---
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 Peripheral/Venous Blood Culture - Final Roro Albicans 07/28/20 10:03 Peripheral/Venous Blood Culture - Final Roro Albicans 08/19/20 14:56 Peripheral/Venous Blood Culture - Preliminary 08/19/20 14:23 Peripheral/Venous Blood Culture - Preliminary 08/19/20 14:30 Urine,Catheterized - Indwelling Catheter Urine Culture - Preliminary Ashley/IV: Voiding Method Indwelling Catheter Active Medications - Current Medications Current Medications: Generic Name Dose Route Start Last Admin Trade Name Freq PRN Reason Stop Dose Admin Acetaminophen 650 mg 06/12/21 14:27 08/08/20 21:50 Acetaminophen 325 Mg Tab PO 650 mg Q6H PRN Administration Pain, Mild (1-3) Albuterol 2.5 mg 07/28/20 14:27 08/05/20 14:27 Albuterol 2.5 Mg/3 Ml Nebu IH 2.5 mg Q3H PRN Administration Shortness Of Breath Amlodipine Besylate 10 mg 08/15/20 10:00 08/21/20 09:25 Amlodipine 10 Mg Tab PO 10 mg QDAY [place] Administration Lipase/Protease/Amylase 1 each 07/29/20 09:55 Lipase 10,500/Protease 25,000/Amylase 43,750 (Units) Dr Velasquez FEEDTUBE PRN PRN For Clogged Feeding Tube Ascorbic Acid 500 mg 08/01/20 22:00 08/21/20 09:26 Ascorbic Acid 500 Mg Tab PO 500 mg BID [place] Administration Bisacodyl 10 mg 08/16/20 14:28 Bisacodyl 10 Mg Rect Supp IA QDAY PRN Constipation Dextrose 50 ml 07/29/20 15:46 08/15/20 10:45 Dextrose 50% In Water (25gm) 50 Ml Syringe IV 50 ml Q30MIN PRN Administration Hypoglycemia Protocol Enoxaparin Sodium 40 mg 08/17/20 10:00 08/21/20 09:26 Enoxaparin 40 Mg/0.4 Ml Inj SUB-Q 40 mg QDAY@1000 [place] Administration Famotidine 20 mg 07/30/20 10:00 08/21/20 09:26 Famotidine 20 Mg Tab PO 20 mg BID [place] Administration Glycopyrrolate 2 mg 08/20/20 14:00 08/21/20 09:25 Glycopyrrolate 2 Mg Tab PO 2 mg TID [place] Administration Hydralazine HCl 10 mg 08/07/20 10:49 Hydralazine 20 Mg/1 Ml Inj IV Q4HR PRN Give if SBP>180 DBP>100 Hydralazine HCl 10 mg 08/18/20 14:00 08/21/20 06:05 Hydralazine 10 Mg Tab PO 10 mg Q8HR [place] Administration Hydromorphone HCl 1 mg 08/07/20 12:28 08/12/20 18:19 Hydromorphone 1 Mg/1 Ml Inj IV 1 mg Q4H PRN Administration Pain , Severe (7-10) Hydrophilic Ointment 1 applic 07/28/20 09:30 Lip Therapy Vaseline TP Q2H PRN Dry Lips Micafungin Sodium 100 mg/ 100 mls @ 100 mls/hr 08/17/20 12:00 08/20/20 17:45 Sodium Chloride IV 08/31/20 12:59 Infused Q24H [place] Infusion Protocol Cefepime HCl 2 gm in 100 mls @ 200 mls/hr 08/20/20 10:00 08/20/20 21:49 Cefepime/Ns 2 Gm/100 Ml IV 08/24/20 22:29 200 mls/hr Q12HR [place] Administration Protocol Vancomycin HCl 1,500 mg/ 530 mls @ 333.333 mls/hr 08/20/20 14:00 08/20/20 16:10 Sodium Chloride IV Infused Q24H [place] Infusion Insulin Glargine 15 units 08/20/20 10:00 08/21/20 09:26 Insulin Glargine 100 Units/Ml SUB-Q 15 units DAILY [place] Administration Insulin Human Lispro 0 unit 08/04/20 12:00 08/21/20 06:12 Insulin Lispro 100 Unit/Ml SUB-Q 4 unit Q6HR [place] Administration Protocol Metoprolol Tartrate 50 mg 08/17/20 10:00 08/21/20 09:25 Metoprolol Tartrate 50 Mg Tab PO 50 mg BID [place] Administration Multi-Ingred Cream/Lotion/Oil/Oint 1 applic 07/28/20 09:30 Mineral Oil/Petrolatum, White Ophth Oint 3.5 Gm OU Q4H PRN Dry Eye(s) Scopolamine 1 each 08/07/20 13:00 08/19/20 11:36 Scopolamine Transdermal Patch 72 Hr TD 1 each Q3D [place] Administration Senna/Docusate Sodium 1 tab 07/28/20 22:00 08/21/20 09:26 Sennosides/Docusate Sodium 8.6/50 Mg Tab FEEDTUBE 1 tab BID [place] Administration Simple Syrup 15 ml 07/29/20 09:55 Simple Syrup 15 Ml FEEDTUBE PRN PRN Hypoglycemia Simple Syrup 30 ml 07/29/20 09:55 Simple Syrup 15 Ml FEEDTUBE PRN PRN Hypoglycemia Sodium Bicarbonate 325 mg 07/29/20 09:55 Sodium Bicarbonate 325 Mg Tab FEEDTUBE PRN PRN For Clogged Feeding Tube Sodium Chloride 10 ml 07/28/20 22:00 08/21/20 00:48 Sodium Chloride 0.9% 10 Ml Flush Syringe IV 10 ml BID [place] Administration Sodium Chloride 10 ml 07/28/20 14:27 Sodium Chloride 0.9% 10 Ml Flush Syringe IV PRN PRN LINE FLUSH Zinc Sulfate 220 mg 08/01/20 15:00 08/21/20 09:25 Zinc Sulfate 220 Mg Cap PO 220 mg BID [place] Administration Nutrition/Malnutrition Assess - Dietary Evaluation Nutrition/Malnutrition Findings: Nutrition Notes Start: 07/29/20 09:47 Freq: Status: Active Protocol: Document 08/17/20 11:01 RACHAEL (Rec: 08/17/20 11:05 RACHAEL [id number]) Nutrition Notes Initial or Follow up Reassessment Current Diagnosis Acute Kidney Injury, Respiratory Failure Other Pertinent Diagnosis Acute encephalopathy, Pneu, UTI, Quadriplegia Current Diet Vital AF 1.2 at 65 ml/hr Labs/Tests BG 205 Pertinent Medications Humalog Height 6 ft Weight 79.2 kg [place] Body Weight (kg) 80.90 BMI 23.6 Weight Status Appropriate Subjective/Other Information FU for TF tolerance. Observed TF running at goal rate and pt tolerating. Percent of energy/protein needs met: 98%/100% Burn Absent Trauma Absent Current % PO Negligible Minimum of two criteria No Fluid Accumulation Moderate to Severe (severe) #2 Nutrition Diagnosis Increased nutrient needs ( specify in comment below) Diagnosis Progress(for reassessment Continues documentation) #1 Nutrition Diagnosis Inadequate oral intake Diagnosis Progress(for reassessment Continues documentation) Is patient on ventilator? Yes Is Patient Ambulatory and/or Out of Bed No REE-(Mccrory-St. Jeor-confined to bed) 7023.772 Calculation [facility] for Recommendations [facility] Additional Notes Pro needs 1.2-2g/k-163g/ day Fluid needs 1ml/kcal Nutrition Intervention Change Diet Order: Continue Nutrition Support: Continue Vital AF 1.2 at 65ml/ hr with 100 ml water flush q4h . Kcal 1,872 Protein (gm) 117 Fluid (mL) 1,265 Add Supplement/Snack (indicate name/kcal Reji BID /protein ) Provides kCal: 190 Provides Protein (gm) 5 Goal #1 TF tolerance Goal #2 TF to meet at least 80% energy and pro needs Anticipated Discharge Needs: Unable to determine at this time Follow-Up By: 08/22/20 Additional Comments FU for TF tolerance, BG, Reji administration
[2020-08-21] MEDS: CEFEPIME/NS 2 GM/100 ML 2 GM/100 ML BAG IV SCH ×2 (10:40→21:02)
--- NOTE | 2020-08-21 10:54 | Progress Note ---
Assessment and Plan Cultures: 07/28/2020 blood culture: C albicans, later addended to C parapsilosis 07/28/2020 urine culture: No growth COVID PCR: negative 07/31/2020 blood culture: Coag negative staph in 1 of 4 bottles (contaminant) 08/02/2020 blood culture: No growth 08/06/2020 Resp culture: normal resp hawk 08/06/2020 BAL AFB stain: negative 08/06/2020 BAL fungal culture: stain positive, culture in process. 08/16/2020 pleural fluid: 425 WBC, 3000 RBC. Pending 08/19/2020 blood cultures pending A/P: 69-year-old long-term resident with quadriplegia, spinal cord injury, was brought in due to fever and sepsis: #Septic shock: Initially resolved likely due to candidemia +/- pneumonia. New fever 08/18 ? Likely secondary to CAUTI. #Candidemia: Unclear source. ?IV line. Transthoracic echo without vegetation. Repeat blood culture no growth. Completed fluconazole course for Jennyfer albicans. Dr Simmons reviewed the scanned lab section on 08/17/2020 and noted that blood culture done on 07/28/2020 was identified as Jennyfer parapsilosis resistant to fluconazole. In the microbiology section, it continues to be listed as Jennyfer albicans which is typically susceptible to fluconazole. Lab did not notify us about the error or addended report. Considering this discrepancy, best to treat with IV micafungin for 14 days. D/W pharmacy. #Pneumonia: CT chest showed patchy airspace disease suggestive of possible aspiration. Chest x-ray with left lung whiteout, got bronch with suctioning of mucous plug, cultures with normal resp hawk. Treated with abx. Repeat CXR increased in pleuroparenchimal opacities. #B/L pleural effusions: s/p thoracentesis on 08/16/2020, about 800 cc of clear straw colored fluid drained. #UTI with chronic indwelling catheter: s/p abx. Repeat urinalysis 08/19/2020 with large pyuria ?CAUTI #Acute hypoxic respiratory failure: On mechanical ventilation via trach. Noted some desaturation overnight on the vent Fio2 45%, p8 #Transaminitis: Improving.RUQ US no GB stone or dilation #Sacral decubitus ulcer: Continue wound care, offloading as possible Recs: -Cefepime 2g IV q12h for 5 days for UTI/adjust upon urine culture results -Follow-up blood culture, sputum culture, urine culture, procal -IV micafungin 100 mg daily ending 08/31/2020 -S/p trach/PEG -Monitor mentation Omkar Cabrera MD [facility] O: [phone] F: [phone] Subjective Date of service: 08/21/20 Principal diagnosis: Ac. encephalopathy; Ac. hypoxemic resp failure; Septic Shock; PNA; UTI; JEFFERSON Interval history: Afebrile, normal white count cultures remain negative so far. Objective - Exam Narrative Exam: General appearance: Sedated on the ventilator via trach Eyes: anicteric sclerae, moist conjunctivae; no lid-lag; HENT: Normocephalic, Atraumatic; normal external ears Neck: Trach Lungs: Bilateral loud rhonchi CV: RRR no murmur Abdomen: Soft, non-tender PEG in place Extremities: Bilateral leg edema, bilateral hands edema Skin: No rash. Psych: Sedated Neuro: sedated Brennan catheter in place - Constitutional Vitals: Vital Signs Temp Pulse Resp BP Pulse Ox 98.1 F 91 H 21 159/78 98 08/21/20 08:00 08/21/20 09:25 08/21/20 08:01 08/21/20 09:25 08/21/20 08:42 Temperature -Last 24 Hours Temperature 98.1 F Temperature 97.7 F Temperature 97.8 F Temperature 97.5 F Temperature 97.6 F Temperature 97.4 F - Labs CBC & Chem 7: 08/20/20 14:10 08/20/20 14:10 Labs: Abnormal lab results 08/20/20 08/20/20 08/20/20 Range/Units 12:14 14:10 14:10 RBC 2.82 L (3.65-5.03) M/mm3 Hgb 8.1 L (11.8-15.2) gm/dl Hct 23.9 L (35.5-45.6) % RDW 18.7 H (13.2-15.2) % BUN 41 H (9-20) mg/dL Creatinine 0.7 L (0.8-1.3) mg/dL Glucose 236 H (75-100) mg/dL POC Glucose 207 H (70-105) mg/dL Calcium 8.1 L (8.4-10.2) mg/dL AST 119 H (5-40) units/L ALT 138 H (7-56) units/L Alkaline Phosphatase 664 H (35-129) units/L Albumin 2.1 L (3.9-5) g/dL 08/20/20 08/21/20 08/21/20 Range/Units 17:50 00:32 06:02 RBC (3.65-5.03) M/mm3 Hgb (11.8-15.2) gm/dl Hct (35.5-45.6) % RDW (13.2-15.2) % BUN (9-20) mg/dL Creatinine (0.8-1.3) mg/dL Glucose (75-100) mg/dL POC Glucose 224 H 214 H 212 H (70-105) mg/dL Calcium (8.4-10.2) mg/dL AST (5-40) units/L ALT (7-56) units/L Alkaline Phosphatase (35-129) units/L Albumin (3.9-5) g/dL
--- NOTE | 2020-08-21 12:23 | Progress Note ---
Assessment and Plan - Patient Problems (1) Bradycardia Current Visit: Yes Status: Acute Plan to address problem: No further bradycardia. An echocardiogram this presentation showed well-preserved left ventricular systolic function with ejection fraction 50 to 55%. Supportive cardiac management. Will follow intermittently. Subjective Date of service: 08/21/20 Principal diagnosis: Ac. encephalopathy; Ac. hypoxemic resp failure; Septic Shock; PNA; UTI; JEFFERSON Interval history: Patient is on mechanical ventilation via tracheostomy. Currently, stable sinus rhythm on telemetry monitoring. Objective Vital Signs Temp Pulse Pulse Resp BP Pulse Ox Pulse Ox 08/21/20 12:00 99.2 F 08/21/20 09:25 91 H 159/78 08/21/20 08:42 86 159/78 98 08/21/20 08:01 91 H 21 150/75 95 08/21/20 08:00 98.1 F 08/21/20 07:01 79 21 144/75 98 08/21/20 06:05 87 08/21/20 06:01 83 19 151/77 98 08/21/20 05:45 98 08/21/20 05:01 88 20 151/78 98 08/21/20 04:15 74 145/77 97 08/21/20 04:01 73 26 H 145/77 98 08/21/20 03:54 97.7 F 08/21/20 03:01 88 22 152/79 98 08/21/20 02:01 72 25 H 145/74 98 08/21/20 01:01 85 27 H 145/74 99 08/21/20 00:35 97.8 F 08/21/20 00:01 73 20 143/71 99 08/21/20 00:00 72 145/74 99 08/20/20 23:13 83 30 H 146/81 99 08/20/20 23:01 79 25 H 146/81 98 08/20/20 22:44 73 20 146/81 99 08/20/20 22:01 80 27 H 150/70 98 08/20/20 21:47 72 150/70 08/20/20 21:01 69 23 146/70 99 08/20/20 20:12 71 152/81 98 08/20/20 20:01 73 27 H 152/81 98 08/20/20 19:55 97.5 F L 07/05/21 19:01 71 28 H 149/77 98 08/20/20 18:01 69 19 162/81 99 08/20/20 17:29 99 08/20/20 17:24 73 142/70 100 08/20/20 17:01 62 20 142/70 96 08/20/20 16:01 60 22 126/60 93 08/20/20 16:00 97.6 F 61 61 31 H 92 08/20/20 15:00 67 14 135/70 99 08/20/20 14:01 65 19 152/77 100 08/20/20 13:57 73 152/77 100 08/20/20 13:29 64 152/79 08/20/20 13:01 62 29 H 152/79 100 08/20/20 12:40 100 H 28 H 152/79 100 - Physical Examination General: Other (On the vent, via tracheostomy) HEENT: Positive: Normocephaly Neck: Positive: Other (tracheostomy in place) Cardiac: Positive: Reg Rate and Rhythm Neuro: Positive: Other (On the vent, via tracheostomy; History of quadriplegia) - Labs and Meds Cardiac Enzymes 08/20/20 Range/Units 14:10 AST 119 H (5-40) units/L CBC 08/20/20 Range/Units 14:10 WBC 6.1 (4.5-11.0) K/mm3 RBC 2.82 L (3.65-5.03) M/mm3 Hgb 8.1 L (11.8-15.2) gm/dl Hct 23.9 L (35.5-45.6) % Plt Count 254 (140-440) K/mm3 Comprehensive Metabolic Panel 08/20/20 Range/Units 14:10 Sodium 140 (137-145) mmol/L Potassium 4.0 (3.6-5.0) mmol/L Chloride 104.0 (98-107) mmol/L Carbon Dioxide 26 (22-30) mmol/L BUN 41 H (9-20) mg/dL Creatinine 0.7 L (0.8-1.3) mg/dL Glucose 236 H (75-100) mg/dL Calcium 8.1 L (8.4-10.2) mg/dL AST 119 H (5-40) units/L ALT 138 H (7-56) units/L Alkaline Phosphatase 664 H (35-129) units/L Total Protein 6.4 (6.3-8.2) g/dL Albumin 2.1 L (3.9-5) g/dL - Allied health notes Allied health notes reviewed: nursing
[2020-08-21] MEDS: MICAFUNGIN 100 MG in SODIUM CHLORIDE 0.9% 100 ML IV SCH (12:51)
[2020-08-21] MEDS: VANCOMYCIN 1,500 MG in SODIUM CHLORIDE 0.9% 500 ML 500 ML IV SCH (15:11)
--- NOTE | 2020-08-21 15:32 | Progress Note ---
Assessment and Plan Acute possibly on chronic toxic metabolic encephalopathy Acute hypoxemic respiratory failure on MVS Severe sepsis with shock, presumably secondary to aspiration pneumonia Recent upper ext DVT (06/06) Aspiration pneumonia, bilateral Urinary tract infection History of quadriplegia Leukocytosis Anemia that is microcytic Coagulopathy. INR 2.17 at presentation Mild hypokalemia Acute kidney injury Metabolic lactic acidosis Non-ST elevation myocardial infarction Adult failure to thrive Moderate to severe protein calorie malnutrition - continue Robinul for better secretion control - follow thoracentesis / fluid studies - continue daily SAT's and SBT's as tolerated - LTAC evaluation ongoing - continue care as below otherwise; - prn Levophed for target MAP > 65 mmHg - continue to wean supplemental oxygen for target O2 sat's > 90% acutely - VAP bundle addressed - continue lung protective strategies - continue bronchodilators with routine trach care and pulmonary hygiene per RT - wean per pulmonary driven protocols otherwise - avoid nephrotoxins, renally dose all medications - continue to avoid benzodiazepine's, reduce the possibility of delirium - complete antiinfective's per ID rec's - prn analgesia per CPOT score - Maintenance of sleep-wake cycle, avoid delirium - continue enteral nutritional support at goal rate as tolerated - G.I. & VTE prophylaxis - PT/OT/ROM exercises - continue wound care per RN / WCN - continue mobility protocols for pressure ulcer prophylaxis - Monitor hemodynamics closely - continue other care per attending / other consultants - discharge planning ongoing concurrently COVID SPECIFIC INTERVENTIONS: - COVID test result negative .... Re-evaluate in am & prn CONDITION: CRITICAL PROGNOSIS: GUARDED CODE STATUS: FULL CODE The high probability of a clinically significant, sudden or life-threatening deterioration of the [respiratory, cardiovascular & neurologic] system(s) required my full and direct attention, intervention and personal management. The aggregate critical care time was [34] minutes without overlap. Time includes spent on; [x] Data Review and interpretation [x] Patient assessment and monitoring of vital signs [x] Documentation [x] Medication orders and management Subjective Date of service: 08/21/20 Principal diagnosis: Ac. encephalopathy; Ac. hypoxemic resp failure; Septic Shock; PNA; UTI; JEFFERSON Interval history: Patient is seen today for: Acute encephalopathy; Acute hypoxemic respiratory failure; Septic Shock; Aspiration pneumonia; UTI; quadriplegia; JEFFERSON Seen and examined at bedside; 24hour events reviewed; nursing and respiratory care staff consulted; no adverse overnight events reported to me; resting in bed; remains on MVS; weaning tenuously; he denies any pain; FiO2 up to 45% and failed SBT with increased work of breathing Objective Vital Signs - 12hr 08/21/20 08/21/20 08/21/20 03:54 04:01 04:15 Temperature 97.7 F Pulse Rate 73 74 Respiratory 26 H Rate Blood Pressure 145/77 145/77 O2 Sat by Pulse 98 97 Oximetry O2 Sat by Pulse Oximetry [ Assessment] 08/21/20 08/21/20 08/21/20 05:01 05:45 06:01 Temperature Pulse Rate 88 83 Respiratory 20 19 Rate Blood Pressure 151/78 151/77 O2 Sat by Pulse 98 98 Oximetry O2 Sat by Pulse 98 Oximetry [ Assessment] 08/21/20 08/21/20 08/21/20 06:05 07:01 08:00 Temperature 98.1 F Pulse Rate 87 79 Respiratory 21 Rate Blood Pressure 144/75 O2 Sat by Pulse 98 Oximetry O2 Sat by Pulse Oximetry [ Assessment] 08/21/20 08/21/20 08/21/20 08:01 08:42 09:01 Temperature Pulse Rate 91 H 86 90 Respiratory 21 25 H Rate Blood Pressure 150/75 159/78 159/78 O2 Sat by Pulse 95 98 97 Oximetry O2 Sat by Pulse Oximetry [ Assessment] 08/21/20 08/21/20 08/21/20 09:25 10:01 11:01 Temperature Pulse Rate 91 H 83 77 Respiratory 26 H 27 H Rate Blood Pressure 159/78 146/80 146/73 O2 Sat by Pulse 94 86 Oximetry O2 Sat by Pulse Oximetry [ Assessment] 08/21/20 08/21/20 08/21/20 12:00 12:01 13:01 Temperature 99.2 F Pulse Rate 87 90 Respiratory 29 H 25 H Rate Blood Pressure 140/74 150/83 O2 Sat by Pulse 98 98 Oximetry O2 Sat by Pulse Oximetry [ Assessment] 08/21/20 08/21/20 08/21/20 13:59 14:01 15:01 Temperature Pulse Rate 85 84 Respiratory 31 H 18 Rate Blood Pressure 156/85 156/85 O2 Sat by Pulse 96 99 Oximetry O2 Sat by Pulse 97 Oximetry [ Assessment] Constitutional: appears uncomfortable, other ( chronically ill looking male with mildly increased respiratory effort at rest on MVS) Eyes: non-icteric ENT: oropharynx moist, oropharyngeal exudate pre (non-bloody; moderate), other (trach) Neck: supple, no lymphadenopathy, no JVD Effort: mildly labored Ascultation: Bilateral: diminished breath sounds (bases), rhonchi Percussion: Bilateral: not dull Cardiovascular: regular rate and rhythm, other (S1,S2) Gastrointestinal: normoactive bowel sounds, soft, non-tender, non-distended, other (PEG) Integumentary: rash, decubitus ulcer (sacral (POA)) Extremities: no cyanosis, pulses normal, edema (lower extremities and bilatral upper extremity) Neurologic: pupils equal and round, other (quadriplegic; responds appropriately to questions / prompts) Psychiatric: mood appropriate, affect normal CBC and BMP: 08/20/20 14:10 08/20/20 14:10 ABG, PT/INR, D-dimer: ABG ABG pH 7.480 (7.320-7.450) H 08/18/20 05:00 POC ABG pCO2 40.2 mmHg (32.0-48.0) 08/18/20 05:00 ABG pCO2 35.7 mm Hg 08/15/20 Unknown POC ABG pO2 95.3 mmHg (83-108) 08/18/20 05:00 ABG pO2 77.7 mm Hg (80.0-90.0) L 08/15/20 Unknown POC ABG HCO3 29.3 08/18/20 05:00 ABG O2 Saturation 97.8 (0-100) 08/18/20 05:00 PT/INR, D-dimer PT 14.7 Sec. (12.2-14.9) 08/15/20 10:28 INR 1.09 (0.87-1.13) 08/15/20 10:28 Abnormal lab findings: Abnormal Labs 07/28/20 07/28/20 07/28/20 08:48 08:48 08:48 WBC 17.0 H RBC 2.77 L Hgb 8.2 L Hct 26.5 L MCV 96 H MCH MCHC 31 L RDW 16.2 H Plt Count Seg Neuts % (Manual) Lymphocytes % (Manual) Seg Neutrophils # Man Lymphocytes # (Manual) Haptoglobin PT 24.7 H INR 2.17 H ABG pH POC ABG pCO2 POC ABG pO2 ABG pO2 ABG O2 Saturation ABG Hemoglobin ABG Oxyhemoglobin ABG Sodium ABG Potassium ABG Chloride ABG Glucose Oxyhemoglobin Carboxyhemoglobin Sodium 135 L Potassium 3.5 L Chloride 97.6 L Carbon Dioxide BUN 44 H Creatinine 1.6 H Glucose 431 H POC Glucose Hemoglobin A1c Lactic Acid Calcium 7.9 L Ionized Calcium Phosphorus AST 81 H ALT Alkaline Phosphatase Ammonia Lactate Dehydrogenase Total Creatine Kinase 486 H Troponin T 0.115 H* C-Reactive Protein Total Protein 5.6 L Albumin 2.6 L Triglycerides LDL Cholesterol Direct 44 L HDL Cholesterol 26 L Arterial Blood Glucose Arterial Blood Ionized Calcium Urine WBC (Auto) Salicylates Crossmatch 07/28/20 07/28/20 07/28/20 08:48 09:44 09:44 WBC RBC Hgb Hct MCV MCH MCHC RDW Plt Count Seg Neuts % (Manual) Lymphocytes % (Manual) Seg Neutrophils # Man Lymphocytes # (Manual) Haptoglobin PT INR ABG pH POC ABG pCO2 POC ABG pO2 ABG pO2 ABG O2 Saturation ABG Hemoglobin ABG Oxyhemoglobin ABG Sodium ABG Potassium ABG Chloride ABG Glucose Oxyhemoglobin Carboxyhemoglobin Sodium Potassium Chloride Carbon Dioxide BUN Creatinine Glucose POC Glucose Hemoglobin A1c Lactic Acid 3.80 H* Calcium Ionized Calcium Phosphorus AST ALT Alkaline Phosphatase Ammonia 63.0 H Lactate Dehydrogenase Total Creatine Kinase Troponin T C-Reactive Protein Total Protein Albumin Triglycerides LDL Cholesterol Direct HDL Cholesterol Arterial Blood Glucose Arterial Blood Ionized Calcium Urine WBC (Auto) Salicylates < 0.3 L Crossmatch 07/28/20 07/28/20 07/28/20 10:18 14:38 15:58 WBC RBC Hgb Hct MCV MCH MCHC RDW Plt Count Seg Neuts % (Manual) Lymphocytes % (Manual) Seg Neutrophils # Man Lymphocytes # (Manual) Haptoglobin PT INR ABG pH POC ABG pCO2 POC ABG pO2 ABG pO2 78.0 L ABG O2 Saturation ABG Hemoglobin 7.6 L ABG Oxyhemoglobin ABG Sodium ABG Potassium ABG Chloride ABG Glucose Oxyhemoglobin Carboxyhemoglobin Sodium Potassium Chloride Carbon Dioxide BUN Creatinine Glucose POC Glucose 265 H Hemoglobin A1c Lactic Acid 3.90 H* Calcium Ionized Calcium Phosphorus AST ALT Alkaline Phosphatase Ammonia Lactate Dehydrogenase Total Creatine Kinase Troponin T C-Reactive Protein Total Protein Albumin Triglycerides LDL Cholesterol Direct HDL Cholesterol Arterial Blood Glucose Arterial Blood Ionized Calcium Urine WBC (Auto) Salicylates Crossmatch 07/28/20 07/28/20 07/28/20 19:50 21:00 Unknown WBC RBC Hgb Hct MCV MCH MCHC RDW Plt Count Seg Neuts % (Manual) Lymphocytes % (Manual) Seg Neutrophils # Man Lymphocytes # (Manual) Haptoglobin PT INR ABG pH 7.107 L POC ABG pCO2 65.6 H POC ABG pO2 ABG pO2 ABG O2 Saturation ABG Hemoglobin 9.9 L ABG Oxyhemoglobin ABG Sodium ABG Potassium ABG Chloride 108.0 H ABG Glucose 299 H Oxyhemoglobin Carboxyhemoglobin 0.2 L Sodium Potassium Chloride Carbon Dioxide BUN Creatinine Glucose POC Glucose Hemoglobin A1c Lactic Acid Calcium Ionized Calcium Phosphorus 5.40 H AST ALT Alkaline Phosphatase Ammonia Lactate Dehydrogenase Total Creatine Kinase Troponin T C-Reactive Protein 9.00 H Total Protein Albumin Triglycerides LDL Cholesterol Direct HDL Cholesterol Arterial Blood Glucose 299 H Arterial Blood Ionized Calcium 4.2 L Urine WBC (Auto) > 182.0 H Salicylates Crossmatch 07/29/20 07/29/20 07/29/20 04:02 13:00 17:13 WBC RBC Hgb Hct MCV MCH MCHC RDW Plt Count Seg Neuts % (Manual) Lymphocytes % (Manual) Seg Neutrophils # Man Lymphocytes # (Manual) Haptoglobin PT INR ABG pH 7.212 L POC ABG pCO2 52.5 H POC ABG pO2 128.3 H ABG pO2 ABG O2 Saturation ABG Hemoglobin 10.5 L ABG Oxyhemoglobin ABG Sodium ABG Potassium ABG Chloride 108.0 H ABG Glucose 239 H Oxyhemoglobin Carboxyhemoglobin Sodium Potassium Chloride Carbon Dioxide BUN Creatinine Glucose POC Glucose 212 H 257 H Hemoglobin A1c Lactic Acid Calcium Ionized Calcium Phosphorus AST ALT Alkaline Phosphatase Ammonia Lactate Dehydrogenase Total Creatine Kinase Troponin T C-Reactive Protein Total Protein Albumin Triglycerides LDL Cholesterol Direct HDL Cholesterol Arterial Blood Glucose 239 H Arterial Blood Ionized Calcium 4.0 L Urine WBC (Auto) Salicylates Crossmatch 07/29/20 07/29/20 07/29/20 21:00 23:20 Unknown WBC RBC 3.05 L Hgb 9.7 L Hct 28.6 L MCV MCH MCHC RDW 16.1 H Plt Count Seg Neuts % (Manual) 75.0 H Lymphocytes % (Manual) 2.0 L Seg Neutrophils # Man Lymphocytes # (Manual) 0.2 L Haptoglobin PT INR ABG pH 7.286 L POC ABG pCO2 POC ABG pO2 ABG pO2 ABG O2 Saturation ABG Hemoglobin 9.1 L ABG Oxyhemoglobin ABG Sodium ABG Potassium ABG Chloride 109.0 H ABG Glucose 285 H Oxyhemoglobin Carboxyhemoglobin Sodium Potassium Chloride Carbon Dioxide BUN Creatinine Glucose POC Glucose 233 H Hemoglobin A1c Lactic Acid Calcium Ionized Calcium Phosphorus AST ALT Alkaline Phosphatase Ammonia Lactate Dehydrogenase Total Creatine Kinase Troponin T C-Reactive Protein Total Protein Albumin Triglycerides LDL Cholesterol Direct HDL Cholesterol Arterial Blood Glucose 285 H Arterial Blood Ionized Calcium 3.9 L Urine WBC (Auto) Salicylates Crossmatch 07/29/20 07/29/20 07/30/20 Unknown Unknown 05:30 WBC RBC Hgb Hct MCV MCH MCHC RDW Plt Count Seg Neuts % (Manual) Lymphocytes % (Manual) Seg Neutrophils # Man Lymphocytes # (Manual) Haptoglobin PT INR ABG pH POC ABG pCO2 POC ABG pO2 ABG pO2 ABG O2 Saturation ABG Hemoglobin ABG Oxyhemoglobin ABG Sodium ABG Potassium ABG Chloride ABG Glucose Oxyhemoglobin Carboxyhemoglobin Sodium Potassium Chloride 108.4 H Carbon Dioxide 21 L BUN 41 H Creatinine Glucose 217 H POC Glucose 245 H Hemoglobin A1c Lactic Acid 2.70 H* Calcium 6.5 L D Ionized Calcium Phosphorus AST 104 H ALT 74 H Alkaline Phosphatase Ammonia Lactate Dehydrogenase Total Creatine Kinase Troponin T C-Reactive Protein Total Protein 5.1 L Albumin 2.4 L Triglycerides LDL Cholesterol Direct HDL Cholesterol Arterial Blood Glucose Arterial Blood Ionized Calcium Urine WBC (Auto) Salicylates Crossmatch 07/30/20 07/30/20 07/30/20 05:45 05:45 12:12 WBC RBC 2.50 L Hgb 7.8 L Hct 23.3 L MCV MCH MCHC RDW 16.4 H Plt Count Seg Neuts % (Manual) Lymphocytes % (Manual) Seg Neutrophils # Man Lymphocytes # (Manual) Haptoglobin PT INR ABG pH POC ABG pCO2 POC ABG pO2 ABG pO2 ABG O2 Saturation ABG Hemoglobin ABG Oxyhemoglobin ABG Sodium ABG Potassium ABG Chloride ABG Glucose Oxyhemoglobin Carboxyhemoglobin Sodium Potassium Chloride 108.4 H Carbon Dioxide 21 L BUN 44 H Creatinine 1.4 H Glucose 279 H POC Glucose 243 H Hemoglobin A1c Lactic Acid Calcium 6.7 L Ionized Calcium Phosphorus AST 51 H ALT Alkaline Phosphatase Ammonia Lactate Dehydrogenase Total Creatine Kinase Troponin T C-Reactive Protein Total Protein 5.5 L Albumin 2.3 L Triglycerides LDL Cholesterol Direct HDL Cholesterol Arterial Blood Glucose Arterial Blood Ionized Calcium Urine WBC (Auto) Salicylates Crossmatch 07/30/20 07/30/20 07/30/20 15:50 17:20 19:01 WBC RBC Hgb Hct MCV MCH MCHC RDW Plt Count Seg Neuts % (Manual) Lymphocytes % (Manual) Seg Neutrophils # Man Lymphocytes # (Manual) Haptoglobin PT INR ABG pH POC ABG pCO2 POC ABG pO2 147.2 H ABG pO2 ABG O2 Saturation ABG Hemoglobin 7.2 L ABG Oxyhemoglobin ABG Sodium ABG Potassium 3.3 L ABG Chloride 115.0 H ABG Glucose 269 H Oxyhemoglobin Carboxyhemoglobin 1.6 H Sodium Potassium Chloride Carbon Dioxide BUN Creatinine Glucose POC Glucose 260 H Hemoglobin A1c Lactic Acid Calcium Ionized Calcium 4.2 L Phosphorus AST ALT Alkaline Phosphatase Ammonia Lactate Dehydrogenase Total Creatine Kinase Troponin T C-Reactive Protein Total Protein Albumin Triglycerides LDL Cholesterol Direct HDL Cholesterol Arterial Blood Glucose 269 H Arterial Blood Ionized Calcium 3.5 L Urine WBC (Auto) Salicylates Crossmatch 07/30/20 07/31/20 07/31/20 23:16 04:04 04:47 WBC RBC Hgb Hct MCV MCH MCHC RDW Plt Count Seg Neuts % (Manual) Lymphocytes % (Manual) Seg Neutrophils # Man Lymphocytes # (Manual) Haptoglobin PT INR ABG pH POC ABG pCO2 POC ABG pO2 ABG pO2 ABG O2 Saturation ABG Hemoglobin 7.6 L ABG Oxyhemoglobin ABG Sodium ABG Potassium 3.3 L ABG Chloride 113.0 H ABG Glucose 348 H Oxyhemoglobin Carboxyhemoglobin 0.4 L Sodium Potassium Chloride Carbon Dioxide BUN Creatinine Glucose POC Glucose 298 H 297 H Hemoglobin A1c Lactic Acid Calcium Ionized Calcium Phosphorus AST ALT Alkaline Phosphatase Ammonia Lactate Dehydrogenase Total Creatine Kinase Troponin T C-Reactive Protein Total Protein Albumin Triglycerides LDL Cholesterol Direct HDL Cholesterol Arterial Blood Glucose 348 H Arterial Blood Ionized Calcium 4.1 L Urine WBC (Auto) Salicylates Crossmatch 07/31/20 07/31/20 07/31/20 07:26 07:26 11:54 WBC RBC 2.29 L Hgb 7.2 L Hct 21.5 L MCV MCH MCHC RDW 16.7 H Plt Count Seg Neuts % (Manual) Lymphocytes % (Manual) Seg Neutrophils # Man Lymphocytes # (Manual) Haptoglobin PT INR ABG pH POC ABG pCO2 POC ABG pO2 ABG pO2 ABG O2 Saturation ABG Hemoglobin ABG Oxyhemoglobin ABG Sodium ABG Potassium ABG Chloride ABG Glucose Oxyhemoglobin Carboxyhemoglobin Sodium Potassium 3.4 L Chloride 109.4 H Carbon Dioxide BUN 45 H Creatinine 1.4 H Glucose 304 H POC Glucose 302 H Hemoglobin A1c Lactic Acid Calcium 6.9 L Ionized Calcium Phosphorus AST ALT Alkaline Phosphatase Ammonia Lactate Dehydrogenase Total Creatine Kinase Troponin T C-Reactive Protein Total Protein Albumin Triglycerides LDL Cholesterol Direct HDL Cholesterol Arterial Blood Glucose Arterial Blood Ionized Calcium Urine WBC (Auto) Salicylates Crossmatch 07/31/20 08/01/20 08/01/20 21:27 03:09 04:30 WBC RBC 2.29 L Hgb 7.0 L Hct 20.7 L MCV MCH MCHC RDW 16.2 H Plt Count 125 L Seg Neuts % (Manual) Lymphocytes % (Manual) Seg Neutrophils # Man Lymphocytes # (Manual) Haptoglobin PT INR ABG pH POC ABG pCO2 POC ABG pO2 ABG pO2 ABG O2 Saturation ABG Hemoglobin 7.4 L ABG Oxyhemoglobin ABG Sodium 146.9 H ABG Potassium 3.2 L ABG Chloride 116.0 H ABG Glucose 113 H Oxyhemoglobin Carboxyhemoglobin Sodium Potassium Chloride Carbon Dioxide BUN Creatinine Glucose POC Glucose 138 H Hemoglobin A1c Lactic Acid Calcium Ionized Calcium Phosphorus AST ALT Alkaline Phosphatase Ammonia Lactate Dehydrogenase Total Creatine Kinase Troponin T C-Reactive Protein Total Protein Albumin Triglycerides LDL Cholesterol Direct HDL Cholesterol Arterial Blood Glucose 113 H Arterial Blood Ionized Calcium 4.5 L Urine WBC (Auto) Salicylates Crossmatch 08/01/20 08/01/20 08/01/20 04:30 04:30 08:40 WBC RBC Hgb Hct MCV MCH MCHC RDW Plt Count Seg Neuts % (Manual) Lymphocytes % (Manual) Seg Neutrophils # Man Lymphocytes # (Manual) Haptoglobin PT INR ABG pH POC ABG pCO2 POC ABG pO2 ABG pO2 ABG O2 Saturation ABG Hemoglobin ABG Oxyhemoglobin ABG Sodium ABG Potassium ABG Chloride ABG Glucose Oxyhemoglobin Carboxyhemoglobin Sodium 148 H Potassium 3.4 L Chloride 114.3 H Carbon Dioxide BUN 43 H Creatinine Glucose 109 H POC Glucose Hemoglobin A1c 8.8 H Lactic Acid Calcium 8.1 L D Ionized Calcium Phosphorus AST ALT Alkaline Phosphatase Ammonia Lactate Dehydrogenase Total Creatine Kinase Troponin T C-Reactive Protein Total Protein Albumin Triglycerides LDL Cholesterol Direct HDL Cholesterol Arterial Blood Glucose Arterial Blood Ionized Calcium Urine WBC (Auto) Salicylates Crossmatch See Detail 08/01/20 08/01/20 08/01/20 08:40 17:03 23:35 WBC RBC Hgb Hct MCV MCH MCHC RDW Plt Count Seg Neuts % (Manual) Lymphocytes % (Manual) Seg Neutrophils # Man Lymphocytes # (Manual) Haptoglobin PT INR ABG pH POC ABG pCO2 POC ABG pO2 ABG pO2 ABG O2 Saturation ABG Hemoglobin ABG Oxyhemoglobin ABG Sodium ABG Potassium ABG Chloride ABG Glucose Oxyhemoglobin Carboxyhemoglobin Sodium Potassium Chloride Carbon Dioxide BUN Creatinine Glucose POC Glucose 129 H 172 H Hemoglobin A1c Lactic Acid Calcium Ionized Calcium Phosphorus 1.70 L AST ALT Alkaline Phosphatase Ammonia Lactate Dehydrogenase Total Creatine Kinase Troponin T C-Reactive Protein Total Protein Albumin Triglycerides LDL Cholesterol Direct HDL Cholesterol Arterial Blood Glucose Arterial Blood Ionized Calcium Urine WBC (Auto) Salicylates Crossmatch 08/02/20 08/02/20 08/02/20 03:50 05:46 10:54 WBC RBC Hgb Hct MCV MCH MCHC RDW Plt Count Seg Neuts % (Manual) Lymphocytes % (Manual) Seg Neutrophils # Man Lymphocytes # (Manual) Haptoglobin PT INR ABG pH 7.333 L POC ABG pCO2 POC ABG pO2 ABG pO2 91.5 H ABG O2 Saturation ABG Hemoglobin 7.9 L ABG Oxyhemoglobin ABG Sodium ABG Potassium ABG Chloride ABG Glucose Oxyhemoglobin Carboxyhemoglobin Sodium Potassium Chloride Carbon Dioxide BUN Creatinine Glucose POC Glucose 161 H 228 H Hemoglobin A1c Lactic Acid Calcium Ionized Calcium Phosphorus AST ALT Alkaline Phosphatase Ammonia Lactate Dehydrogenase Total Creatine Kinase Troponin T C-Reactive Protein Total Protein Albumin Triglycerides LDL Cholesterol Direct HDL Cholesterol Arterial Blood Glucose Arterial Blood Ionized Calcium Urine WBC (Auto) Salicylates Crossmatch 08/02/20 08/02/20 08/02/20 17:20 23:13 Unknown WBC RBC 2.66 L Hgb 8.1 L Hct 23.9 L MCV MCH MCHC RDW 16.8 H Plt Count 110 L Seg Neuts % (Manual) Lymphocytes % (Manual) Seg Neutrophils # Man Lymphocytes # (Manual) Haptoglobin PT INR ABG pH POC ABG pCO2 POC ABG pO2 ABG pO2 ABG O2 Saturation ABG Hemoglobin ABG Oxyhemoglobin ABG Sodium ABG Potassium ABG Chloride ABG Glucose Oxyhemoglobin Carboxyhemoglobin Sodium Potassium Chloride Carbon Dioxide BUN Creatinine Glucose POC Glucose 214 H 132 H Hemoglobin A1c Lactic Acid Calcium Ionized Calcium Phosphorus AST ALT Alkaline Phosphatase Ammonia Lactate Dehydrogenase Total Creatine Kinase Troponin T C-Reactive Protein Total Protein Albumin Triglycerides LDL Cholesterol Direct HDL Cholesterol Arterial Blood Glucose Arterial Blood Ionized Calcium Urine WBC (Auto) Salicylates Crossmatch 08/02/20 08/02/20 08/03/20 Unknown Unknown 02:59 WBC RBC Hgb Hct MCV MCH MCHC RDW Plt Count Seg Neuts % (Manual) Lymphocytes % (Manual) Seg Neutrophils # Man Lymphocytes # (Manual) Haptoglobin PT INR ABG pH POC ABG pCO2 POC ABG pO2 ABG pO2 ABG O2 Saturation ABG Hemoglobin 8.1 L ABG Oxyhemoglobin ABG Sodium ABG Potassium ABG Chloride 113.0 H ABG Glucose 143 H Oxyhemoglobin Carboxyhemoglobin Sodium 150 H Potassium 3.5 L Chloride 115.9 H Carbon Dioxide BUN 42 H Creatinine Glucose 188 H POC Glucose Hemoglobin A1c Lactic Acid Calcium 7.8 L Ionized Calcium Phosphorus 2.30 L D AST ALT Alkaline Phosphatase Ammonia Lactate Dehydrogenase Total Creatine Kinase Troponin T C-Reactive Protein Total Protein Albumin Triglycerides LDL Cholesterol Direct HDL Cholesterol Arterial Blood Glucose 143 H Arterial Blood Ionized Calcium Urine WBC (Auto) Salicylates Crossmatch 08/03/20 08/03/20 08/03/20 04:16 04:16 05:12 WBC RBC 2.62 L Hgb 8.1 L Hct 24.1 L MCV MCH MCHC RDW 17.4 H Plt Count 118 L Seg Neuts % (Manual) Lymphocytes % (Manual) Seg Neutrophils # Man Lymphocytes # (Manual) Haptoglobin PT INR ABG pH POC ABG pCO2 POC ABG pO2 ABG pO2 ABG O2 Saturation ABG Hemoglobin ABG Oxyhemoglobin ABG Sodium ABG Potassium ABG Chloride ABG Glucose Oxyhemoglobin Carboxyhemoglobin Sodium 148 H Potassium Chloride 114.5 H Carbon Dioxide BUN 47 H Creatinine Glucose 158 H POC Glucose 164 H Hemoglobin A1c Lactic Acid Calcium 8.1 L Ionized Calcium Phosphorus 2.30 L AST ALT Alkaline Phosphatase Ammonia Lactate Dehydrogenase Total Creatine Kinase Troponin T C-Reactive Protein Total Protein Albumin Triglycerides LDL Cholesterol Direct HDL Cholesterol Arterial Blood Glucose Arterial Blood Ionized Calcium Urine WBC (Auto) Salicylates Crossmatch 08/03/20 08/03/20 08/03/20 11:26 17:33 23:47 WBC RBC Hgb Hct MCV MCH MCHC RDW Plt Count Seg Neuts % (Manual) Lymphocytes % (Manual) Seg Neutrophils # Man Lymphocytes # (Manual) Haptoglobin PT INR ABG pH POC ABG pCO2 POC ABG pO2 ABG pO2 ABG O2 Saturation ABG Hemoglobin ABG Oxyhemoglobin ABG Sodium ABG Potassium ABG Chloride ABG Glucose Oxyhemoglobin Carboxyhemoglobin Sodium Potassium Chloride Carbon Dioxide BUN Creatinine Glucose POC Glucose 190 H 235 H 194 H Hemoglobin A1c Lactic Acid Calcium Ionized Calcium Phosphorus AST ALT Alkaline Phosphatase Ammonia Lactate Dehydrogenase Total Creatine Kinase Troponin T C-Reactive Protein Total Protein Albumin Triglycerides LDL Cholesterol Direct HDL Cholesterol Arterial Blood Glucose Arterial Blood Ionized Calcium Urine WBC (Auto) Salicylates Crossmatch 08/04/20 08/04/20 08/04/20 03:00 03:00 04:14 WBC RBC Hgb Hct MCV MCH MCHC RDW Plt Count Seg Neuts % (Manual) Lymphocytes % (Manual) Seg Neutrophils # Man Lymphocytes # (Manual) Haptoglobin PT INR ABG pH POC ABG pCO2 POC ABG pO2 79.5 L ABG pO2 ABG O2 Saturation ABG Hemoglobin 9.9 L ABG Oxyhemoglobin ABG Sodium ABG Potassium ABG Chloride 113.0 H ABG Glucose 227 H Oxyhemoglobin Carboxyhemoglobin 0.3 L Sodium Potassium Chloride 111.4 H Carbon Dioxide BUN 51 H Creatinine Glucose 218 H POC Glucose Hemoglobin A1c Lactic Acid Calcium Ionized Calcium Phosphorus AST ALT Alkaline Phosphatase Ammonia Lactate Dehydrogenase Total Creatine Kinase Troponin T C-Reactive Protein Total Protein Albumin Triglycerides 184 H LDL Cholesterol Direct HDL Cholesterol Arterial Blood Glucose 227 H Arterial Blood Ionized Calcium Urine WBC (Auto) Salicylates Crossmatch 08/04/20 08/04/20 08/04/20 05:17 11:52 11:53 WBC RBC Hgb Hct MCV MCH MCHC RDW Plt Count Seg Neuts % (Manual) Lymphocytes % (Manual) Seg Neutrophils # Man Lymphocytes # (Manual) Haptoglobin PT INR ABG pH POC ABG pCO2 POC ABG pO2 ABG pO2 ABG O2 Saturation ABG Hemoglobin ABG Oxyhemoglobin ABG Sodium ABG Potassium ABG Chloride ABG Glucose Oxyhemoglobin Carboxyhemoglobin Sodium Potassium Chloride Carbon Dioxide BUN Creatinine Glucose POC Glucose 224 H 253 H 237 H Hemoglobin A1c Lactic Acid Calcium Ionized Calcium Phosphorus AST ALT Alkaline Phosphatase Ammonia Lactate Dehydrogenase Total Creatine Kinase Troponin T C-Reactive Protein Total Protein Albumin Triglycerides LDL Cholesterol Direct HDL Cholesterol Arterial Blood Glucose Arterial Blood Ionized Calcium Urine WBC (Auto) Salicylates Crossmatch 08/04/20 08/04/20 08/04/20 15:35 16:25 17:45 WBC 21.5 H RBC 2.10 L Hgb 7.3 L Hct 22.0 L MCV MCH 33 H MCHC 37 H RDW 17.2 H Plt Count 133 L Seg Neuts % (Manual) Lymphocytes % (Manual) Seg Neutrophils # Man Lymphocytes # (Manual) Haptoglobin PT INR ABG pH POC ABG pCO2 POC ABG pO2 ABG pO2 ABG O2 Saturation ABG Hemoglobin ABG Oxyhemoglobin ABG Sodium ABG Potassium ABG Chloride ABG Glucose Oxyhemoglobin Carboxyhemoglobin Sodium Potassium Chloride Carbon Dioxide BUN Creatinine Glucose POC Glucose 230 H 218 H Hemoglobin A1c Lactic Acid Calcium Ionized Calcium Phosphorus AST ALT Alkaline Phosphatase Ammonia Lactate Dehydrogenase Total Creatine Kinase Troponin T C-Reactive Protein Total Protein Albumin Triglycerides LDL Cholesterol Direct HDL Cholesterol Arterial Blood Glucose Arterial Blood Ionized Calcium Urine WBC (Auto) Salicylates Crossmatch 08/04/20 08/05/20 08/05/20 23:11 03:28 05:25 WBC RBC Hgb Hct MCV MCH MCHC RDW Plt Count Seg Neuts % (Manual) Lymphocytes % (Manual) Seg Neutrophils # Man Lymphocytes # (Manual) Haptoglobin PT INR ABG pH POC ABG pCO2 POC ABG pO2 82.1 L ABG pO2 ABG O2 Saturation ABG Hemoglobin 8.6 L ABG Oxyhemoglobin 93.7 L ABG Sodium ABG Potassium ABG Chloride 113.0 H ABG Glucose 205 H Oxyhemoglobin Carboxyhemoglobin Sodium Potassium Chloride Carbon Dioxide BUN Creatinine Glucose POC Glucose 198 H 213 H Hemoglobin A1c Lactic Acid Calcium Ionized Calcium Phosphorus AST ALT Alkaline Phosphatase Ammonia Lactate Dehydrogenase Total Creatine Kinase Troponin T C-Reactive Protein Total Protein Albumin Triglycerides LDL Cholesterol Direct HDL Cholesterol Arterial Blood Glucose 205 H Arterial Blood Ionized Calcium Urine WBC (Auto) Salicylates Crossmatch 08/05/20 08/05/20 08/05/20 08:48 08:48 10:55 WBC 14.3 H RBC 2.76 L Hgb 8.1 L Hct 24.8 L MCV MCH MCHC RDW 17.4 H Plt Count 138 L Seg Neuts % (Manual) 97.0 H Lymphocytes % (Manual) 1.0 L Seg Neutrophils # Man 13.9 H Lymphocytes # (Manual) 0.1 L Haptoglobin PT INR ABG pH POC ABG pCO2 POC ABG pO2 158.7 H ABG pO2 ABG O2 Saturation ABG Hemoglobin 7.8 L ABG Oxyhemoglobin ABG Sodium ABG Potassium ABG Chloride 114.0 H ABG Glucose 242 H Oxyhemoglobin Carboxyhemoglobin Sodium 146 H Potassium Chloride 110.1 H Carbon Dioxide BUN 56 H Creatinine Glucose 219 H POC Glucose Hemoglobin A1c Lactic Acid Calcium Ionized Calcium Phosphorus AST ALT Alkaline Phosphatase 192 H Ammonia Lactate Dehydrogenase Total Creatine Kinase Troponin T C-Reactive Protein Total Protein 5.8 L Albumin 2.0 L Triglycerides LDL Cholesterol Direct HDL Cholesterol Arterial Blood Glucose 242 H Arterial Blood Ionized Calcium Urine WBC (Auto) Salicylates Crossmatch 08/05/20 08/05/20 08/05/20 11:12 11:30 17:08 WBC RBC Hgb Hct MCV MCH MCHC RDW Plt Count Seg Neuts % (Manual) Lymphocytes % (Manual) Seg Neutrophils # Man Lymphocytes # (Manual) Haptoglobin PT INR ABG pH POC ABG pCO2 POC ABG pO2 147.5 H ABG pO2 ABG O2 Saturation ABG Hemoglobin 7.5 L ABG Oxyhemoglobin 98.1 H ABG Sodium ABG Potassium ABG Chloride 113.0 H ABG Glucose 248 H Oxyhemoglobin Carboxyhemoglobin Sodium Potassium Chloride Carbon Dioxide BUN Creatinine Glucose POC Glucose 238 H 239 H Hemoglobin A1c Lactic Acid Calcium Ionized Calcium Phosphorus AST ALT Alkaline Phosphatase Ammonia Lactate Dehydrogenase Total Creatine Kinase Troponin T C-Reactive Protein Total Protein Albumin Triglycerides LDL Cholesterol Direct HDL Cholesterol Arterial Blood Glucose 248 H Arterial Blood Ionized Calcium Urine WBC (Auto) Salicylates Crossmatch 08/05/20 08/05/20 08/06/20 23:17 Unknown 05:12 WBC RBC Hgb Hct MCV MCH MCHC RDW Plt Count Seg Neuts % (Manual) Lymphocytes % (Manual) Seg Neutrophils # Man Lymphocytes # (Manual) Haptoglobin PT INR ABG pH POC ABG pCO2 POC ABG pO2 ABG pO2 ABG O2 Saturation ABG Hemoglobin ABG Oxyhemoglobin ABG Sodium ABG Potassium ABG Chloride ABG Glucose Oxyhemoglobin Carboxyhemoglobin Sodium Potassium Chloride 109.2 H Carbon Dioxide BUN 51 H Creatinine Glucose 229 H POC Glucose 200 H 145 H Hemoglobin A1c Lactic Acid Calcium Ionized Calcium Phosphorus AST ALT Alkaline Phosphatase Ammonia Lactate Dehydrogenase Total Creatine Kinase Troponin T C-Reactive Protein Total Protein Albumin Triglycerides LDL Cholesterol Direct HDL Cholesterol Arterial Blood Glucose Arterial Blood Ionized Calcium Urine WBC (Auto) Salicylates Crossmatch 08/06/20 08/06/20 08/06/20 05:21 10:00 11:28 WBC RBC Hgb Hct MCV MCH MCHC RDW Plt Count Seg Neuts % (Manual) Lymphocytes % (Manual) Seg Neutrophils # Man Lymphocytes # (Manual) Haptoglobin PT INR ABG pH 7.301 L 7.308 L POC ABG pCO2 49.5 H 49.1 H POC ABG pO2 178.4 H ABG pO2 ABG O2 Saturation ABG Hemoglobin 7.5 L 7.1 L ABG Oxyhemoglobin 98.8 H ABG Sodium ABG Potassium ABG Chloride 112.0 H 112.0 H ABG Glucose 149 H 162 H Oxyhemoglobin Carboxyhemoglobin Sodium Potassium Chloride Carbon Dioxide BUN Creatinine Glucose POC Glucose 158 H Hemoglobin A1c Lactic Acid Calcium Ionized Calcium Phosphorus AST ALT Alkaline Phosphatase Ammonia Lactate Dehydrogenase Total Creatine Kinase Troponin T C-Reactive Protein Total Protein Albumin Triglycerides LDL Cholesterol Direct HDL Cholesterol Arterial Blood Glucose 149 H 162 H Arterial Blood Ionized Calcium Urine WBC (Auto) Salicylates Crossmatch 08/06/20 08/06/20 08/06/20 17:42 23:56 Unknown WBC 13.0 H RBC 2.38 L Hgb 7.1 L Hct 21.5 L MCV MCH MCHC RDW 17.6 H Plt Count Seg Neuts % (Manual) Lymphocytes % (Manual) Seg Neutrophils # Man Lymphocytes # (Manual) Haptoglobin PT INR ABG pH POC ABG pCO2 POC ABG pO2 ABG pO2 ABG O2 Saturation ABG Hemoglobin ABG Oxyhemoglobin ABG Sodium ABG Potassium ABG Chloride ABG Glucose Oxyhemoglobin Carboxyhemoglobin Sodium Potassium Chloride Carbon Dioxide BUN Creatinine Glucose POC Glucose 179 H 259 H Hemoglobin A1c Lactic Acid Calcium Ionized Calcium Phosphorus AST ALT Alkaline Phosphatase Ammonia Lactate Dehydrogenase Total Creatine Kinase Troponin T C-Reactive Protein Total Protein Albumin Triglycerides LDL Cholesterol Direct HDL Cholesterol Arterial Blood Glucose Arterial Blood Ionized Calcium Urine WBC (Auto) Salicylates Crossmatch 08/07/20 08/07/20 08/07/20 04:00 04:05 04:05 WBC RBC 2.32 L Hgb 7.1 L Hct 20.9 L MCV MCH MCHC RDW 17.9 H Plt Count Seg Neuts % (Manual) Lymphocytes % (Manual) Seg Neutrophils # Man Lymphocytes # (Manual) Haptoglobin PT INR ABG pH POC ABG pCO2 POC ABG pO2 150.6 H ABG pO2 ABG O2 Saturation ABG Hemoglobin 8.0 L ABG Oxyhemoglobin 98.4 H ABG Sodium 146.7 H ABG Potassium ABG Chloride 114.0 H ABG Glucose 201 H Oxyhemoglobin Carboxyhemoglobin Sodium 151 H Potassium Chloride 114.3 H Carbon Dioxide BUN 63 H Creatinine Glucose 198 H POC Glucose Hemoglobin A1c Lactic Acid Calcium Ionized Calcium Phosphorus AST 54 H ALT Alkaline Phosphatase 213 H Ammonia Lactate Dehydrogenase Total Creatine Kinase Troponin T C-Reactive Protein Total Protein 6.1 L Albumin 2.0 L Triglycerides LDL Cholesterol Direct HDL Cholesterol Arterial Blood Glucose 201 H Arterial Blood Ionized Calcium Urine WBC (Auto) Salicylates Crossmatch 08/07/20 08/07/20 08/07/20 05:34 11:43 14:30 WBC RBC Hgb Hct MCV MCH MCHC RDW Plt Count Seg Neuts % (Manual) Lymphocytes % (Manual) Seg Neutrophils # Man Lymphocytes # (Manual) Haptoglobin PT INR ABG pH POC ABG pCO2 POC ABG pO2 ABG pO2 62.9 L ABG O2 Saturation 86.7 L ABG Hemoglobin 7.1 L ABG Oxyhemoglobin ABG Sodium ABG Potassium ABG Chloride ABG Glucose Oxyhemoglobin 85.0 L Carboxyhemoglobin Sodium Potassium Chloride Carbon Dioxide BUN Creatinine Glucose POC Glucose 160 H 201 H Hemoglobin A1c Lactic Acid Calcium Ionized Calcium Phosphorus AST ALT Alkaline Phosphatase Ammonia Lactate Dehydrogenase Total Creatine Kinase Troponin T C-Reactive Protein Total Protein Albumin Triglycerides LDL Cholesterol Direct HDL Cholesterol Arterial Blood Glucose Arterial Blood Ionized Calcium Urine WBC (Auto) Salicylates Crossmatch 08/07/20 08/07/20 08/08/20 17:57 23:12 05:38 WBC RBC Hgb Hct MCV MCH MCHC RDW Plt Count Seg Neuts % (Manual) Lymphocytes % (Manual) Seg Neutrophils # Man Lymphocytes # (Manual) Haptoglobin PT INR ABG pH POC ABG pCO2 POC ABG pO2 ABG pO2 ABG O2 Saturation ABG Hemoglobin ABG Oxyhemoglobin ABG Sodium ABG Potassium ABG Chloride ABG Glucose Oxyhemoglobin Carboxyhemoglobin Sodium Potassium Chloride Carbon Dioxide BUN Creatinine Glucose POC Glucose 242 H 246 H 135 H Hemoglobin A1c Lactic Acid Calcium Ionized Calcium Phosphorus AST ALT Alkaline Phosphatase Ammonia Lactate Dehydrogenase Total Creatine Kinase Troponin T C-Reactive Protein Total Protein Albumin Triglycerides LDL Cholesterol Direct HDL Cholesterol Arterial Blood Glucose Arterial Blood Ionized Calcium Urine WBC (Auto) Salicylates Crossmatch 08/08/20 08/08/20 08/08/20 09:49 11:40 17:28 WBC RBC Hgb Hct MCV MCH MCHC RDW Plt Count Seg Neuts % (Manual) Lymphocytes % (Manual) Seg Neutrophils # Man Lymphocytes # (Manual) Haptoglobin PT INR ABG pH POC ABG pCO2 POC ABG pO2 ABG pO2 ABG O2 Saturation ABG Hemoglobin 6.9 L ABG Oxyhemoglobin ABG Sodium 146.1 H ABG Potassium ABG Chloride 114.0 H ABG Glucose 192 H Oxyhemoglobin Carboxyhemoglobin Sodium Potassium Chloride Carbon Dioxide BUN Creatinine Glucose POC Glucose 187 H 175 H Hemoglobin A1c Lactic Acid Calcium Ionized Calcium Phosphorus AST ALT Alkaline Phosphatase Ammonia Lactate Dehydrogenase Total Creatine Kinase Troponin T C-Reactive Protein Total Protein Albumin Triglycerides LDL Cholesterol Direct HDL Cholesterol Arterial Blood Glucose 192 H Arterial Blood Ionized Calcium Urine WBC (Auto) Salicylates Crossmatch 08/09/20 08/09/20 08/09/20 03:41 06:10 11:58 WBC RBC Hgb Hct MCV MCH MCHC RDW Plt Count Seg Neuts % (Manual) Lymphocytes % (Manual) Seg Neutrophils # Man Lymphocytes # (Manual) Haptoglobin PT INR ABG pH POC ABG pCO2 POC ABG pO2 ABG pO2 ABG O2 Saturation ABG Hemoglobin 6.9 L ABG Oxyhemoglobin ABG Sodium 145.8 H ABG Potassium 4.6 H ABG Chloride 113.0 H ABG Glucose 113 H Oxyhemoglobin Carboxyhemoglobin Sodium Potassium Chloride Carbon Dioxide BUN Creatinine Glucose POC Glucose 118 H 124 H Hemoglobin A1c Lactic Acid Calcium Ionized Calcium Phosphorus AST ALT Alkaline Phosphatase Ammonia Lactate Dehydrogenase Total Creatine Kinase Troponin T C-Reactive Protein Total Protein Albumin Triglycerides LDL Cholesterol Direct HDL Cholesterol Arterial Blood Glucose 113 H Arterial Blood Ionized Calcium Urine WBC (Auto) Salicylates Crossmatch 08/09/20 08/09/20 08/09/20 14:05 14:05 17:42 WBC RBC 3.58 L Hgb 10.5 L D Hct 31.6 L D MCV MCH MCHC RDW 17.8 H Plt Count 125 L Seg Neuts % (Manual) Lymphocytes % (Manual) Seg Neutrophils # Man Lymphocytes # (Manual) Haptoglobin PT INR ABG pH POC ABG pCO2 POC ABG pO2 ABG pO2 ABG O2 Saturation ABG Hemoglobin ABG Oxyhemoglobin ABG Sodium ABG Potassium ABG Chloride ABG Glucose Oxyhemoglobin Carboxyhemoglobin Sodium Potassium Chloride 111.2 H Carbon Dioxide BUN 74 H Creatinine Glucose 137 H POC Glucose 139 H Hemoglobin A1c Lactic Acid Calcium Ionized Calcium Phosphorus AST ALT Alkaline Phosphatase Ammonia Lactate Dehydrogenase Total Creatine Kinase Troponin T C-Reactive Protein Total Protein Albumin Triglycerides LDL Cholesterol Direct HDL Cholesterol Arterial Blood Glucose Arterial Blood Ionized Calcium Urine WBC (Auto) Salicylates Crossmatch 08/09/20 08/09/20 08/09/20 21:07 21:25 23:26 WBC RBC Hgb Hct MCV MCH MCHC RDW Plt Count Seg Neuts % (Manual) Lymphocytes % (Manual) Seg Neutrophils # Man Lymphocytes # (Manual) Haptoglobin PT 15.5 H INR 1.17 H ABG pH POC ABG pCO2 POC ABG pO2 ABG pO2 ABG O2 Saturation ABG Hemoglobin ABG Oxyhemoglobin ABG Sodium ABG Potassium ABG Chloride ABG Glucose Oxyhemoglobin Carboxyhemoglobin Sodium Potassium Chloride Carbon Dioxide BUN Creatinine Glucose POC Glucose 156 H 167 H Hemoglobin A1c Lactic Acid Calcium Ionized Calcium Phosphorus AST ALT Alkaline Phosphatase Ammonia Lactate Dehydrogenase Total Creatine Kinase Troponin T C-Reactive Protein Total Protein Albumin Triglycerides LDL Cholesterol Direct HDL Cholesterol Arterial Blood Glucose Arterial Blood Ionized Calcium Urine WBC (Auto) Salicylates Crossmatch 08/10/20 08/10/20 08/10/20 03:04 12:19 14:53 WBC RBC 2.06 L Hgb 6.1 L D Hct 18.6 L* D MCV MCH MCHC RDW 18.3 H Plt Count 137 L Seg Neuts % (Manual) Lymphocytes % (Manual) Seg Neutrophils # Man Lymphocytes # (Manual) Haptoglobin PT INR ABG pH POC ABG pCO2 POC ABG pO2 ABG pO2 ABG O2 Saturation ABG Hemoglobin 6.7 L ABG Oxyhemoglobin ABG Sodium ABG Potassium ABG Chloride 111.0 H ABG Glucose 116 H Oxyhemoglobin Carboxyhemoglobin Sodium Potassium Chloride Carbon Dioxide BUN Creatinine Glucose POC Glucose 57 L Hemoglobin A1c Lactic Acid Calcium Ionized Calcium Phosphorus AST ALT Alkaline Phosphatase Ammonia Lactate Dehydrogenase Total Creatine Kinase Troponin T C-Reactive Protein Total Protein Albumin Triglycerides LDL Cholesterol Direct HDL Cholesterol Arterial Blood Glucose 116 H Arterial Blood Ionized Calcium Urine WBC (Auto) Salicylates Crossmatch 08/10/20 08/10/20 08/10/20 14:53 18:08 23:11 WBC RBC Hgb Hct MCV MCH MCHC RDW Plt Count Seg Neuts % (Manual) Lymphocytes % (Manual) Seg Neutrophils # Man Lymphocytes # (Manual) Haptoglobin PT INR ABG pH POC ABG pCO2 POC ABG pO2 ABG pO2 ABG O2 Saturation ABG Hemoglobin ABG Oxyhemoglobin ABG Sodium ABG Potassium ABG Chloride ABG Glucose Oxyhemoglobin Carboxyhemoglobin Sodium 146 H Potassium Chloride 111.1 H Carbon Dioxide BUN 72 H Creatinine 1.4 H Glucose 158 H POC Glucose 68 L Hemoglobin A1c Lactic Acid Calcium 8.2 L Ionized Calcium Phosphorus AST ALT Alkaline Phosphatase Ammonia Lactate Dehydrogenase Total Creatine Kinase Troponin T C-Reactive Protein Total Protein Albumin Triglycerides LDL Cholesterol Direct HDL Cholesterol Arterial Blood Glucose Arterial Blood Ionized Calcium Urine WBC (Auto) Salicylates Crossmatch See Detail 08/11/20 08/11/20 08/11/20 04:12 05:34 05:36 WBC RBC Hgb Hct MCV MCH MCHC RDW Plt Count Seg Neuts % (Manual) Lymphocytes % (Manual) Seg Neutrophils # Man Lymphocytes # (Manual) Haptoglobin PT INR ABG pH POC ABG pCO2 POC ABG pO2 397.7 H ABG pO2 ABG O2 Saturation ABG Hemoglobin 7.6 L ABG Oxyhemoglobin 98.8 H ABG Sodium ABG Potassium ABG Chloride 113.0 H ABG Glucose 60 L Oxyhemoglobin Carboxyhemoglobin Sodium Potassium Chloride Carbon Dioxide BUN Creatinine Glucose POC Glucose 55 L 51 L Hemoglobin A1c Lactic Acid Calcium Ionized Calcium Phosphorus AST ALT Alkaline Phosphatase Ammonia Lactate Dehydrogenase Total Creatine Kinase Troponin T C-Reactive Protein Total Protein Albumin Triglycerides LDL Cholesterol Direct HDL Cholesterol Arterial Blood Glucose 60 L Arterial Blood Ionized Calcium 4.4 L Urine WBC (Auto) Salicylates Crossmatch 08/11/20 08/11/20 08/11/20 08:40 08:40 10:23 WBC RBC 2.14 L Hgb 6.2 L 6.3 L Hct 18.8 L* 19.0 L* MCV MCH MCHC RDW 17.6 H Plt Count Seg Neuts % (Manual) Lymphocytes % (Manual) Seg Neutrophils # Man Lymphocytes # (Manual) Haptoglobin PT INR ABG pH POC ABG pCO2 POC ABG pO2 ABG pO2 ABG O2 Saturation ABG Hemoglobin ABG Oxyhemoglobin ABG Sodium ABG Potassium ABG Chloride ABG Glucose Oxyhemoglobin Carboxyhemoglobin Sodium 147 H Potassium Chloride 112.3 H Carbon Dioxide BUN 62 H Creatinine 1.5 H Glucose 73 L POC Glucose Hemoglobin A1c Lactic Acid Calcium 7.9 L Ionized Calcium Phosphorus AST ALT Alkaline Phosphatase Ammonia Lactate Dehydrogenase Total Creatine Kinase Troponin T C-Reactive Protein Total Protein Albumin Triglycerides LDL Cholesterol Direct HDL Cholesterol Arterial Blood Glucose Arterial Blood Ionized Calcium Urine WBC (Auto) Salicylates Crossmatch 08/11/20 08/11/20 08/11/20 11:56 17:43 18:40 WBC RBC Hgb Hct MCV MCH MCHC RDW Plt Count Seg Neuts % (Manual) Lymphocytes % (Manual) Seg Neutrophils # Man Lymphocytes # (Manual) Haptoglobin PT 15.7 H INR 1.19 H ABG pH POC ABG pCO2 POC ABG pO2 ABG pO2 ABG O2 Saturation ABG Hemoglobin ABG Oxyhemoglobin ABG Sodium ABG Potassium ABG Chloride ABG Glucose Oxyhemoglobin Carboxyhemoglobin Sodium Potassium Chloride Carbon Dioxide BUN Creatinine Glucose POC Glucose 53 L 113 H Hemoglobin A1c Lactic Acid Calcium Ionized Calcium Phosphorus AST ALT Alkaline Phosphatase Ammonia Lactate Dehydrogenase Total Creatine Kinase Troponin T C-Reactive Protein Total Protein Albumin Triglycerides LDL Cholesterol Direct HDL Cholesterol Arterial Blood Glucose Arterial Blood Ionized Calcium Urine WBC (Auto) Salicylates Crossmatch 08/11/20 08/11/20 08/11/20 18:40 20:10 22:13 WBC RBC Hgb 6.2 L 6.1 L Hct 18.4 L* 18.3 L* MCV MCH MCHC RDW Plt Count Seg Neuts % (Manual) Lymphocytes % (Manual) Seg Neutrophils # Man Lymphocytes # (Manual) Haptoglobin PT INR ABG pH POC ABG pCO2 POC ABG pO2 163.6 H ABG pO2 ABG O2 Saturation ABG Hemoglobin 7.7 L ABG Oxyhemoglobin 98.3 H ABG Sodium ABG Potassium ABG Chloride 112.0 H ABG Glucose 119 H Oxyhemoglobin Carboxyhemoglobin Sodium Potassium Chloride Carbon Dioxide BUN Creatinine Glucose POC Glucose Hemoglobin A1c Lactic Acid Calcium Ionized Calcium Phosphorus AST ALT Alkaline Phosphatase Ammonia Lactate Dehydrogenase Total Creatine Kinase Troponin T C-Reactive Protein Total Protein Albumin Triglycerides LDL Cholesterol Direct HDL Cholesterol Arterial Blood Glucose 119 H Arterial Blood Ionized Calcium 4.4 L Urine WBC (Auto) Salicylates Crossmatch 08/11/20 08/12/20 08/12/20 23:32 04:43 04:43 WBC RBC Hgb Hct MCV MCH MCHC RDW Plt Count Seg Neuts % (Manual) Lymphocytes % (Manual) Seg Neutrophils # Man Lymphocytes # (Manual) Haptoglobin PT INR ABG pH POC ABG pCO2 POC ABG pO2 ABG pO2 ABG O2 Saturation ABG Hemoglobin ABG Oxyhemoglobin ABG Sodium ABG Potassium ABG Chloride ABG Glucose Oxyhemoglobin Carboxyhemoglobin Sodium Potassium Chloride Carbon Dioxide BUN Creatinine Glucose POC Glucose 106 H Hemoglobin A1c Lactic Acid Calcium Ionized Calcium Phosphorus AST 57 H ALT Alkaline Phosphatase 288 H Ammonia Lactate Dehydrogenase 239 H Total Creatine Kinase Troponin T C-Reactive Protein Total Protein 6.0 L Albumin 1.7 L Triglycerides LDL Cholesterol Direct HDL Cholesterol Arterial Blood Glucose Arterial Blood Ionized Calcium Urine WBC (Auto) Salicylates Crossmatch 08/12/20 08/12/20 08/12/20 04:43 04:53 05:07 WBC RBC 3.03 L Hgb 8.5 L Hct 25.6 L D MCV MCH MCHC RDW 18.4 H Plt Count Seg Neuts % (Manual) 88.0 H Lymphocytes % (Manual) 6.0 L Seg Neutrophils # Man Lymphocytes # (Manual) 0.4 L Haptoglobin 420 H PT INR ABG pH POC ABG pCO2 POC ABG pO2 ABG pO2 ABG O2 Saturation ABG Hemoglobin ABG Oxyhemoglobin ABG Sodium ABG Potassium ABG Chloride ABG Glucose Oxyhemoglobin Carboxyhemoglobin Sodium Potassium Chloride Carbon Dioxide BUN Creatinine Glucose POC Glucose 139 H Hemoglobin A1c Lactic Acid Calcium Ionized Calcium Phosphorus AST ALT Alkaline Phosphatase Ammonia Lactate Dehydrogenase Total Creatine Kinase Troponin T C-Reactive Protein Total Protein Albumin Triglycerides LDL Cholesterol Direct HDL Cholesterol Arterial Blood Glucose Arterial Blood Ionized Calcium Urine WBC (Auto) Salicylates Crossmatch 08/12/20 08/12/20 08/12/20 07:55 07:55 11:17 WBC RBC 2.90 L Hgb 8.1 L Hct 24.4 L MCV MCH MCHC RDW 18.9 H Plt Count Seg Neuts % (Manual) Lymphocytes % (Manual) Seg Neutrophils # Man Lymphocytes # (Manual) Haptoglobin PT INR ABG pH POC ABG pCO2 POC ABG pO2 ABG pO2 ABG O2 Saturation ABG Hemoglobin ABG Oxyhemoglobin ABG Sodium ABG Potassium ABG Chloride ABG Glucose Oxyhemoglobin Carboxyhemoglobin Sodium Potassium 3.3 L Chloride 109.8 H Carbon Dioxide BUN 52 H Creatinine Glucose 153 H POC Glucose 150 H Hemoglobin A1c Lactic Acid Calcium 8.1 L Ionized Calcium Phosphorus AST ALT Alkaline Phosphatase Ammonia Lactate Dehydrogenase Total Creatine Kinase Troponin T C-Reactive Protein Total Protein Albumin Triglycerides LDL Cholesterol Direct HDL Cholesterol Arterial Blood Glucose Arterial Blood Ionized Calcium Urine WBC (Auto) Salicylates Crossmatch 08/12/20 08/12/20 08/12/20 13:05 17:29 18:28 WBC RBC Hgb Hct MCV MCH MCHC RDW Plt Count Seg Neuts % (Manual) Lymphocytes % (Manual) Seg Neutrophils # Man Lymphocytes # (Manual) Haptoglobin PT INR ABG pH POC ABG pCO2 POC ABG pO2 ABG pO2 ABG O2 Saturation ABG Hemoglobin ABG Oxyhemoglobin ABG Sodium ABG Potassium ABG Chloride ABG Glucose Oxyhemoglobin Carboxyhemoglobin Sodium Potassium Chloride Carbon Dioxide BUN Creatinine Glucose POC Glucose 143 H 158 H 158 H Hemoglobin A1c Lactic Acid Calcium Ionized Calcium Phosphorus AST ALT Alkaline Phosphatase Ammonia Lactate Dehydrogenase Total Creatine Kinase Troponin T C-Reactive Protein Total Protein Albumin Triglycerides LDL Cholesterol Direct HDL Cholesterol Arterial Blood Glucose Arterial Blood Ionized Calcium Urine WBC (Auto) Salicylates Crossmatch 08/12/20 08/13/20 08/13/20 23:22 05:32 09:58 WBC RBC 2.79 L Hgb 7.9 L Hct 23.5 L MCV MCH MCHC RDW 18.9 H Plt Count Seg Neuts % (Manual) Lymphocytes % (Manual) Seg Neutrophils # Man Lymphocytes # (Manual) Haptoglobin PT INR ABG pH POC ABG pCO2 POC ABG pO2 ABG pO2 ABG O2 Saturation ABG Hemoglobin ABG Oxyhemoglobin ABG Sodium ABG Potassium ABG Chloride ABG Glucose Oxyhemoglobin Carboxyhemoglobin Sodium Potassium Chloride Carbon Dioxide BUN Creatinine Glucose POC Glucose 191 H 131 H Hemoglobin A1c Lactic Acid Calcium Ionized Calcium Phosphorus AST ALT Alkaline Phosphatase Ammonia Lactate Dehydrogenase Total Creatine Kinase Troponin T C-Reactive Protein Total Protein Albumin Triglycerides LDL Cholesterol Direct HDL Cholesterol Arterial Blood Glucose Arterial Blood Ionized Calcium Urine WBC (Auto) Salicylates Crossmatch 08/13/20 08/13/20 08/13/20 09:58 12:07 12:10 WBC RBC Hgb Hct MCV MCH MCHC RDW Plt Count Seg Neuts % (Manual) Lymphocytes % (Manual) Seg Neutrophils # Man Lymphocytes # (Manual) Haptoglobin PT INR ABG pH POC ABG pCO2 POC ABG pO2 ABG pO2 ABG O2 Saturation ABG Hemoglobin ABG Oxyhemoglobin ABG Sodium ABG Potassium ABG Chloride ABG Glucose Oxyhemoglobin Carboxyhemoglobin Sodium Potassium 3.5 L Chloride 109.1 H Carbon Dioxide BUN 51 H Creatinine Glucose 168 H POC Glucose 142 H 159 H Hemoglobin A1c Lactic Acid Calcium 8.0 L Ionized Calcium Phosphorus AST ALT Alkaline Phosphatase Ammonia Lactate Dehydrogenase Total Creatine Kinase Troponin T C-Reactive Protein Total Protein Albumin Triglycerides LDL Cholesterol Direct HDL Cholesterol Arterial Blood Glucose Arterial Blood Ionized Calcium Urine WBC (Auto) Salicylates Crossmatch 08/13/20 08/13/20 08/14/20 17:17 23:17 05:10 WBC RBC Hgb Hct MCV MCH MCHC RDW Plt Count Seg Neuts % (Manual) Lymphocytes % (Manual) Seg Neutrophils # Man Lymphocytes # (Manual) Haptoglobin PT INR ABG pH POC ABG pCO2 POC ABG pO2 ABG pO2 ABG O2 Saturation ABG Hemoglobin ABG Oxyhemoglobin ABG Sodium ABG Potassium ABG Chloride ABG Glucose Oxyhemoglobin Carboxyhemoglobin Sodium Potassium Chloride Carbon Dioxide BUN Creatinine Glucose POC Glucose 137 H 157 H 153 H Hemoglobin A1c Lactic Acid Calcium Ionized Calcium Phosphorus AST ALT Alkaline Phosphatase Ammonia Lactate Dehydrogenase Total Creatine Kinase Troponin T C-Reactive Protein Total Protein Albumin Triglycerides LDL Cholesterol Direct HDL Cholesterol Arterial Blood Glucose Arterial Blood Ionized Calcium Urine WBC (Auto) Salicylates Crossmatch 08/14/20 08/14/20 08/14/20 11:35 12:05 13:01 WBC RBC 2.73 L Hgb 7.7 L Hct 22.6 L MCV 83 L MCH MCHC RDW 18.4 H Plt Count Seg Neuts % (Manual) Lymphocytes % (Manual) Seg Neutrophils # Man Lymphocytes # (Manual) Haptoglobin PT INR ABG pH POC ABG pCO2 POC ABG pO2 ABG pO2 75.1 L ABG O2 Saturation ABG Hemoglobin 7.7 L ABG Oxyhemoglobin ABG Sodium ABG Potassium ABG Chloride ABG Glucose Oxyhemoglobin 94.8 L Carboxyhemoglobin Sodium Potassium Chloride Carbon Dioxide BUN Creatinine Glucose POC Glucose 175 H Hemoglobin A1c Lactic Acid Calcium Ionized Calcium Phosphorus AST ALT Alkaline Phosphatase Ammonia Lactate Dehydrogenase Total Creatine Kinase Troponin T C-Reactive Protein Total Protein Albumin Triglycerides LDL Cholesterol Direct HDL Cholesterol Arterial Blood Glucose Arterial Blood Ionized Calcium Urine WBC (Auto) Salicylates Crossmatch 08/14/20 08/14/20 08/14/20 13:01 17:55 23:25 WBC RBC Hgb Hct MCV MCH MCHC RDW Plt Count Seg Neuts % (Manual) Lymphocytes % (Manual) Seg Neutrophils # Man Lymphocytes # (Manual) Haptoglobin PT INR ABG pH POC ABG pCO2 POC ABG pO2 ABG pO2 ABG O2 Saturation ABG Hemoglobin ABG Oxyhemoglobin ABG Sodium ABG Potassium ABG Chloride ABG Glucose Oxyhemoglobin Carboxyhemoglobin Sodium Potassium Chloride 107.3 H Carbon Dioxide BUN 49 H Creatinine Glucose 191 H POC Glucose 178 H 150 H Hemoglobin A1c Lactic Acid Calcium 7.9 L Ionized Calcium Phosphorus AST ALT Alkaline Phosphatase Ammonia Lactate Dehydrogenase Total Creatine Kinase Troponin T C-Reactive Protein Total Protein Albumin Triglycerides LDL Cholesterol Direct HDL Cholesterol Arterial Blood Glucose Arterial Blood Ionized Calcium Urine WBC (Auto) Salicylates Crossmatch 08/15/20 08/15/20 08/15/20 04:04 10:28 10:38 WBC RBC 2.94 L Hgb 8.3 L Hct 24.6 L MCV MCH MCHC RDW 18.7 H Plt Count 112 L Seg Neuts % (Manual) Lymphocytes % (Manual) Seg Neutrophils # Man Lymphocytes # (Manual) Haptoglobin PT INR ABG pH POC ABG pCO2 POC ABG pO2 ABG pO2 ABG O2 Saturation ABG Hemoglobin ABG Oxyhemoglobin ABG Sodium ABG Potassium ABG Chloride ABG Glucose Oxyhemoglobin Carboxyhemoglobin Sodium Potassium Chloride 107.4 H Carbon Dioxide BUN 47 H Creatinine Glucose 51 L POC Glucose 44 L Hemoglobin A1c Lactic Acid Calcium 8.3 L Ionized Calcium Phosphorus AST ALT Alkaline Phosphatase Ammonia Lactate Dehydrogenase Total Creatine Kinase Troponin T C-Reactive Protein Total Protein Albumin Triglycerides LDL Cholesterol Direct HDL Cholesterol Arterial Blood Glucose Arterial Blood Ionized Calcium Urine WBC (Auto) Salicylates Crossmatch 08/15/20 08/15/20 08/15/20 17:31 23:15 Unknown WBC RBC Hgb Hct MCV MCH MCHC RDW Plt Count Seg Neuts % (Manual) Lymphocytes % (Manual) Seg Neutrophils # Man Lymphocytes # (Manual) Haptoglobin PT INR ABG pH POC ABG pCO2 POC ABG pO2 ABG pO2 77.7 L ABG O2 Saturation ABG Hemoglobin 9.2 L ABG Oxyhemoglobin ABG Sodium ABG Potassium ABG Chloride ABG Glucose Oxyhemoglobin 94.9 L Carboxyhemoglobin Sodium Potassium Chloride Carbon Dioxide BUN Creatinine Glucose POC Glucose 64 L 114 H Hemoglobin A1c Lactic Acid Calcium Ionized Calcium Phosphorus AST ALT Alkaline Phosphatase Ammonia Lactate Dehydrogenase Total Creatine Kinase Troponin T C-Reactive Protein Total Protein Albumin Triglycerides LDL Cholesterol Direct HDL Cholesterol Arterial Blood Glucose Arterial Blood Ionized Calcium Urine WBC (Auto) Salicylates Crossmatch 08/16/20 08/16/20 08/16/20 05:09 08:02 08:02 WBC 4.1 L RBC 2.70 L Hgb 7.6 L Hct 22.9 L MCV MCH MCHC RDW 18.5 H Plt Count Seg Neuts % (Manual) Lymphocytes % (Manual) Seg Neutrophils # Man Lymphocytes # (Manual) Haptoglobin PT INR ABG pH POC ABG pCO2 POC ABG pO2 ABG pO2 ABG O2 Saturation ABG Hemoglobin ABG Oxyhemoglobin ABG Sodium ABG Potassium ABG Chloride ABG Glucose Oxyhemoglobin Carboxyhemoglobin Sodium Potassium Chloride 110.1 H Carbon Dioxide BUN 45 H Creatinine Glucose 187 H POC Glucose 204 H Hemoglobin A1c Lactic Acid Calcium 7.7 L Ionized Calcium Phosphorus AST ALT Alkaline Phosphatase Ammonia Lactate Dehydrogenase Total Creatine Kinase Troponin T C-Reactive Protein Total Protein Albumin Triglycerides LDL Cholesterol Direct HDL Cholesterol Arterial Blood Glucose Arterial Blood Ionized Calcium Urine WBC (Auto) Salicylates Crossmatch 08/16/20 08/16/20 08/17/20 12:28 17:21 00:20 WBC RBC Hgb Hct MCV MCH MCHC RDW Plt Count Seg Neuts % (Manual) Lymphocytes % (Manual) Seg Neutrophils # Man Lymphocytes # (Manual) Haptoglobin PT INR ABG pH POC ABG pCO2 POC ABG pO2 ABG pO2 ABG O2 Saturation ABG Hemoglobin ABG Oxyhemoglobin ABG Sodium ABG Potassium ABG Chloride ABG Glucose Oxyhemoglobin Carboxyhemoglobin Sodium Potassium Chloride Carbon Dioxide BUN Creatinine Glucose POC Glucose 126 H 107 H 194 H Hemoglobin A1c Lactic Acid Calcium Ionized Calcium Phosphorus AST ALT Alkaline Phosphatase Ammonia Lactate Dehydrogenase Total Creatine Kinase Troponin T C-Reactive Protein Total Protein Albumin Triglycerides LDL Cholesterol Direct HDL Cholesterol Arterial Blood Glucose Arterial Blood Ionized Calcium Urine WBC (Auto) Salicylates Crossmatch 08/17/20 08/17/20 08/17/20 06:02 09:40 09:40 WBC RBC 2.78 L Hgb 7.9 L Hct 24.1 L MCV MCH MCHC RDW 19.3 H Plt Count Seg Neuts % (Manual) Lymphocytes % (Manual) Seg Neutrophils # Man Lymphocytes # (Manual) Haptoglobin PT INR ABG pH POC ABG pCO2 POC ABG pO2 ABG pO2 ABG O2 Saturation ABG Hemoglobin ABG Oxyhemoglobin ABG Sodium ABG Potassium ABG Chloride ABG Glucose Oxyhemoglobin Carboxyhemoglobin Sodium Potassium Chloride 107.5 H Carbon Dioxide BUN 42 H Creatinine Glucose 205 H POC Glucose 199 H Hemoglobin A1c Lactic Acid Calcium Ionized Calcium Phosphorus AST 69 H ALT 93 H Alkaline Phosphatase 556 H Ammonia Lactate Dehydrogenase Total Creatine Kinase Troponin T C-Reactive Protein Total Protein 6.2 L Albumin 1.9 L Triglycerides LDL Cholesterol Direct HDL Cholesterol Arterial Blood Glucose Arterial Blood Ionized Calcium Urine WBC (Auto) Salicylates Crossmatch 08/17/20 08/17/20 08/17/20 11:51 12:54 16:50 WBC RBC Hgb Hct MCV MCH MCHC RDW Plt Count Seg Neuts % (Manual) Lymphocytes % (Manual) Seg Neutrophils # Man Lymphocytes # (Manual) Haptoglobin PT INR ABG pH 7.473 H POC ABG pCO2 POC ABG pO2 81.2 L ABG pO2 ABG O2 Saturation ABG Hemoglobin 7.7 L ABG Oxyhemoglobin ABG Sodium ABG Potassium ABG Chloride 110.0 H ABG Glucose 228 H Oxyhemoglobin Carboxyhemoglobin Sodium Potassium Chloride Carbon Dioxide BUN Creatinine Glucose POC Glucose 204 H 188 H Hemoglobin A1c Lactic Acid Calcium Ionized Calcium Phosphorus AST ALT Alkaline Phosphatase Ammonia Lactate Dehydrogenase Total Creatine Kinase Troponin T C-Reactive Protein Total Protein Albumin Triglycerides LDL Cholesterol Direct HDL Cholesterol Arterial Blood Glucose 228 H Arterial Blood Ionized Calcium Urine WBC (Auto) Salicylates Crossmatch 08/17/20 08/18/20 08/18/20 23:07 05:00 05:12 WBC RBC Hgb Hct MCV MCH MCHC RDW Plt Count Seg Neuts % (Manual) Lymphocytes % (Manual) Seg Neutrophils # Man Lymphocytes # (Manual) Haptoglobin PT INR ABG pH 7.480 H POC ABG pCO2 POC ABG pO2 ABG pO2 ABG O2 Saturation ABG Hemoglobin 7.9 L ABG Oxyhemoglobin ABG Sodium ABG Potassium ABG Chloride 111.0 H ABG Glucose 137 H Oxyhemoglobin Carboxyhemoglobin Sodium Potassium Chloride Carbon Dioxide BUN Creatinine Glucose POC Glucose 187 H 118 H Hemoglobin A1c Lactic Acid Calcium Ionized Calcium Phosphorus AST ALT Alkaline Phosphatase Ammonia Lactate Dehydrogenase Total Creatine Kinase Troponin T C-Reactive Protein Total Protein Albumin Triglycerides LDL Cholesterol Direct HDL Cholesterol Arterial Blood Glucose 137 H Arterial Blood Ionized Calcium 4.5 L Urine WBC (Auto) Salicylates Crossmatch 08/18/20 08/18/20 08/18/20 06:46 06:46 08:03 WBC RBC 3.37 L Hgb 9.5 L Hct 29.3 L MCV MCH MCHC RDW 19.3 H Plt Count Seg Neuts % (Manual) Lymphocytes % (Manual) Seg Neutrophils # Man Lymphocytes # (Manual) Haptoglobin PT INR ABG pH POC ABG pCO2 POC ABG pO2 ABG pO2 ABG O2 Saturation ABG Hemoglobin ABG Oxyhemoglobin ABG Sodium ABG Potassium ABG Chloride ABG Glucose Oxyhemoglobin Carboxyhemoglobin Sodium Potassium Chloride 108.2 H Carbon Dioxide BUN 41 H Creatinine Glucose 120 H POC Glucose 111 H Hemoglobin A1c Lactic Acid Calcium Ionized Calcium Phosphorus AST 95 H ALT 122 H Alkaline Phosphatase 738 H Ammonia Lactate Dehydrogenase Total Creatine Kinase Troponin T C-Reactive Protein Total Protein Albumin 1.8 L Triglycerides LDL Cholesterol Direct HDL Cholesterol Arterial Blood Glucose Arterial Blood Ionized Calcium Urine WBC (Auto) Salicylates Crossmatch 08/18/20 08/18/20 08/18/20 11:21 17:47 23:19 WBC RBC Hgb Hct MCV MCH MCHC RDW Plt Count Seg Neuts % (Manual) Lymphocytes % (Manual) Seg Neutrophils # Man Lymphocytes # (Manual) Haptoglobin PT INR ABG pH POC ABG pCO2 POC ABG pO2 ABG pO2 ABG O2 Saturation ABG Hemoglobin ABG Oxyhemoglobin ABG Sodium ABG Potassium ABG Chloride ABG Glucose Oxyhemoglobin Carboxyhemoglobin Sodium Potassium Chloride Carbon Dioxide BUN Creatinine Glucose POC Glucose 151 H 178 H 209 H Hemoglobin A1c Lactic Acid Calcium Ionized Calcium Phosphorus AST ALT Alkaline Phosphatase Ammonia Lactate Dehydrogenase Total Creatine Kinase Troponin T C-Reactive Protein Total Protein Albumin Triglycerides LDL Cholesterol Direct HDL Cholesterol Arterial Blood Glucose Arterial Blood Ionized Calcium Urine WBC (Auto) Salicylates Crossmatch 08/19/20 08/19/20 08/19/20 05:31 09:56 12:16 WBC RBC Hgb Hct MCV MCH MCHC RDW Plt Count Seg Neuts % (Manual) Lymphocytes % (Manual) Seg Neutrophils # Man Lymphocytes # (Manual) Haptoglobin PT INR ABG pH POC ABG pCO2 POC ABG pO2 ABG pO2 ABG O2 Saturation ABG Hemoglobin ABG Oxyhemoglobin ABG Sodium ABG Potassium ABG Chloride ABG Glucose Oxyhemoglobin Carboxyhemoglobin Sodium Potassium Chloride Carbon Dioxide BUN 43 H Creatinine Glucose 241 H POC Glucose 211 H 241 H Hemoglobin A1c Lactic Acid Calcium 7.9 L Ionized Calcium Phosphorus AST 77 H ALT 114 H Alkaline Phosphatase 621 H Ammonia Lactate Dehydrogenase Total Creatine Kinase Troponin T C-Reactive Protein Total Protein 6.0 L Albumin 2.0 L Triglycerides LDL Cholesterol Direct HDL Cholesterol Arterial Blood Glucose Arterial Blood Ionized Calcium Urine WBC (Auto) Salicylates Crossmatch 08/19/20 08/19/20 08/19/20 14:23 14:25 17:03 WBC RBC Hgb Hct MCV MCH MCHC RDW Plt Count Seg Neuts % (Manual) Lymphocytes % (Manual) Seg Neutrophils # Man Lymphocytes # (Manual) Haptoglobin PT INR ABG pH POC ABG pCO2 POC ABG pO2 ABG pO2 ABG O2 Saturation ABG Hemoglobin ABG Oxyhemoglobin ABG Sodium ABG Potassium ABG Chloride ABG Glucose Oxyhemoglobin Carboxyhemoglobin Sodium Potassium Chloride Carbon Dioxide BUN Creatinine Glucose POC Glucose 201 H Hemoglobin A1c Lactic Acid Calcium Ionized Calcium Phosphorus AST ALT Alkaline Phosphatase Ammonia Lactate Dehydrogenase Total Creatine Kinase Troponin T C-Reactive Protein 9.60 H Total Protein Albumin Triglycerides LDL Cholesterol Direct HDL Cholesterol Arterial Blood Glucose Arterial Blood Ionized Calcium Urine WBC (Auto) 128.0 H Salicylates Crossmatch 08/19/20 08/20/20 08/20/20 23:26 05:19 12:14 WBC RBC Hgb Hct MCV MCH MCHC RDW Plt Count Seg Neuts % (Manual) Lymphocytes % (Manual) Seg Neutrophils # Man Lymphocytes # (Manual) Haptoglobin PT INR ABG pH POC ABG pCO2 POC ABG pO2 ABG pO2 ABG O2 Saturation ABG Hemoglobin ABG Oxyhemoglobin ABG Sodium ABG Potassium ABG Chloride ABG Glucose Oxyhemoglobin Carboxyhemoglobin Sodium Potassium Chloride Carbon Dioxide BUN Creatinine Glucose POC Glucose 221 H 211 H 207 H Hemoglobin A1c Lactic Acid Calcium Ionized Calcium Phosphorus AST ALT Alkaline Phosphatase Ammonia Lactate Dehydrogenase Total Creatine Kinase Troponin T C-Reactive Protein Total Protein Albumin Triglycerides LDL Cholesterol Direct HDL Cholesterol Arterial Blood Glucose Arterial Blood Ionized Calcium Urine WBC (Auto) Salicylates Crossmatch 08/20/20 08/20/20 08/20/20 14:10 14:10 17:50 WBC RBC 2.82 L Hgb 8.1 L Hct 23.9 L MCV MCH MCHC RDW 18.7 H Plt Count Seg Neuts % (Manual) Lymphocytes % (Manual) Seg Neutrophils # Man Lymphocytes # (Manual) Haptoglobin PT INR ABG pH POC ABG pCO2 POC ABG pO2 ABG pO2 ABG O2 Saturation ABG Hemoglobin ABG Oxyhemoglobin ABG Sodium ABG Potassium ABG Chloride ABG Glucose Oxyhemoglobin Carboxyhemoglobin Sodium Potassium Chloride Carbon Dioxide BUN 41 H Creatinine 0.7 L Glucose 236 H POC Glucose 224 H Hemoglobin A1c Lactic Acid Calcium 8.1 L Ionized Calcium Phosphorus AST 119 H ALT 138 H Alkaline Phosphatase 664 H Ammonia Lactate Dehydrogenase Total Creatine Kinase Troponin T C-Reactive Protein Total Protein Albumin 2.1 L Triglycerides LDL Cholesterol Direct HDL Cholesterol Arterial Blood Glucose Arterial Blood Ionized Calcium Urine WBC (Auto) Salicylates Crossmatch 08/21/20 08/21/20 08/21/20 00:32 06:02 11:20 WBC RBC Hgb Hct MCV MCH MCHC RDW Plt Count Seg Neuts % (Manual) Lymphocytes % (Manual) Seg Neutrophils # Man Lymphocytes # (Manual) Haptoglobin PT INR ABG pH POC ABG pCO2 POC ABG pO2 ABG pO2 ABG O2 Saturation ABG Hemoglobin ABG Oxyhemoglobin ABG Sodium ABG Potassium ABG Chloride ABG Glucose Oxyhemoglobin Carboxyhemoglobin Sodium Potassium Chloride Carbon Dioxide BUN Creatinine Glucose POC Glucose 214 H 212 H 207 H Hemoglobin A1c Lactic Acid Calcium Ionized Calcium Phosphorus AST ALT Alkaline Phosphatase Ammonia Lactate Dehydrogenase Total Creatine Kinase Troponin T C-Reactive Protein Total Protein Albumin Triglycerides LDL Cholesterol Direct HDL Cholesterol Arterial Blood Glucose Arterial Blood Ionized Calcium Urine WBC (Auto) Salicylates Crossmatch Allied health notes reviewed: nursing
[2020-08-22] MEDS: INSULIN LISPRO 100 UNIT/ML SUB-Q SCH ×5 (01:50→23:54)
[2020-08-22] MEDS: FREE WATER PO SCH ×6 (08:17→21:17)
[2020-08-22] MEDS: ASCORBIC ACID 500 MG TAB PO SCH ×3 (08:18→21:07)
--- NOTE | 2020-08-22 09:23 | Progress Note ---
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 07/28/20 09:44 Heparin-induced Plt Ab Negative (Negative) 08/01/20 23:40 UF Heparin High Dose 0 % Release 08/01/20 23:40 DEISY UFH Low Dose 0.1 0 % Release 08/01/20 23:40 DEISY UFH Low Dose 0.5 0 % Release 08/01/20 23:40 Coronavirus (PCR) Negative (Negative) 07/29/20 09:15 AFB Identification 08/06/20 11:55 Fungal Id Prelim Positive 08/06/20 11:55 Blood Type O POSITIVE 08/16/20 15:30 Antibody Screen Negative 08/16/20 15:30 Crossmatch See Detail 08/10/20 18:08 Ashley/IV: Voiding Method Indwelling Catheter Active Medications - Current Medications Current Medications: Generic Name Dose Route Start Last Admin Trade Name Freq PRN Reason Stop Dose Admin Acetaminophen 650 mg 07/28/20 14:27 08/08/20 21:50 Acetaminophen 325 Mg Tab PO 650 mg Q6H PRN Administration Pain, Mild (1-3) Albuterol 2.5 mg 07/28/20 14:27 08/05/20 14:27 Albuterol 2.5 Mg/3 Ml Nebu IH 2.5 mg Q3H PRN Administration Shortness Of Breath Amlodipine Besylate 10 mg 08/15/20 10:00 08/21/20 09:25 Amlodipine 10 Mg Tab PO 10 mg QDAY [place] Administration Lipase/Protease/Amylase 1 each 07/29/20 09:55 Lipase 10,500/Protease 25,000/Amylase 43,750 (Units) Dr Velasquez FEEDTUBE PRN PRN For Clogged Feeding Tube Ascorbic Acid 500 mg 08/01/20 22:00 08/22/20 08:18 Ascorbic Acid 500 Mg Tab PO Not Given BID [place] Bisacodyl 10 mg 08/16/20 14:28 Bisacodyl 10 Mg Rect Supp VA QDAY PRN Constipation Dextrose 50 ml 07/29/20 15:46 08/15/20 10:45 Dextrose 50% In Water (25gm) 50 Ml Syringe IV 50 ml Q30MIN PRN Administration Hypoglycemia Protocol Enoxaparin Sodium 40 mg 08/17/20 10:00 08/21/20 09:26 Enoxaparin 40 Mg/0.4 Ml Inj SUB-Q 40 mg QDAY@1000 [place] Administration Famotidine 20 mg 07/30/20 10:00 08/21/20 21:01 Famotidine 20 Mg Tab PO 20 mg BID [place] Administration Glycopyrrolate 2 mg 08/20/20 14:00 08/21/20 21:00 Glycopyrrolate 2 Mg Tab PO 2 mg TID [place] Administration Hydralazine HCl 10 mg 08/07/20 10:49 Hydralazine 20 Mg/1 Ml Inj IV Q4HR PRN Give if SBP>180 DBP>100 Hydralazine HCl 10 mg 08/18/20 14:00 08/21/20 21:00 Hydralazine 10 Mg Tab PO 10 mg Q8HR [place] Administration Hydromorphone HCl 1 mg 08/07/20 12:28 08/12/20 18:19 Hydromorphone 1 Mg/1 Ml Inj IV 1 mg Q4H PRN Administration Pain , Severe (7-10) Hydrophilic Ointment 1 applic 07/28/20 09:30 Lip Therapy Vaseline TP Q2H PRN Dry Lips Micafungin Sodium 100 mg/ 100 mls @ 100 mls/hr 08/17/20 12:00 08/21/20 15:12 Sodium Chloride IV 08/31/20 12:59 Infused Q24H [place] Infusion Protocol Cefepime HCl 2 gm in 100 mls @ 200 mls/hr 08/20/20 10:00 08/21/20 21:50 Cefepime/Ns 2 Gm/100 Ml IV 08/24/20 22:29 Infused Q12HR [place] Infusion Protocol Vancomycin HCl 1,500 mg/ 530 mls @ 333.333 mls/hr 08/20/20 14:00 08/21/20 17:15 Sodium Chloride IV Infused Q24H [place] Infusion Insulin Glargine 25 units 08/22/20 10:00 Insulin Glargine 100 Units/Ml SUB-Q DAILY [place] Insulin Human Lispro 0 unit 08/04/20 12:00 08/22/20 08:17 Insulin Lispro 100 Unit/Ml SUB-Q Not Given Q6HR [facility] Protocol Metoprolol Tartrate 50 mg 08/17/20 10:00 08/21/20 21:01 Metoprolol Tartrate 50 Mg Tab PO 50 mg BID [place] Administration Multi-Ingred Cream/Lotion/Oil/Oint 1 applic 07/28/20 09:30 Mineral Oil/Petrolatum, White Ophth Oint 3.5 Gm OU Q4H PRN Dry Eye(s) Scopolamine 1 each 08/07/20 13:00 08/19/20 11:36 Scopolamine Transdermal Patch 72 Hr TD 1 each Q3D [place] Administration Senna/Docusate Sodium 1 tab 07/28/20 22:00 08/21/20 21:01 Sennosides/Docusate Sodium 8.6/50 Mg Tab FEEDTUBE 1 tab BID [place] Administration Simple Syrup 15 ml 07/29/20 09:55 Simple Syrup 15 Ml FEEDTUBE PRN PRN Hypoglycemia Simple Syrup 30 ml 07/29/20 09:55 Simple Syrup 15 Ml FEEDTUBE PRN PRN Hypoglycemia Sodium Bicarbonate 325 mg 07/29/20 09:55 Sodium Bicarbonate 325 Mg Tab FEEDTUBE PRN PRN For Clogged Feeding Tube Sodium Chloride 10 ml 07/28/20 22:00 08/22/20 08:18 Sodium Chloride 0.9% 10 Ml Flush Syringe IV Not Given BID [place] Sodium Chloride 10 ml 07/28/20 14:27 Sodium Chloride 0.9% 10 Ml Flush Syringe IV PRN PRN LINE FLUSH Zinc Sulfate 220 mg 08/01/20 15:00 08/21/20 21:00 Zinc Sulfate 220 Mg Cap PO 220 mg BID [place] Administration Nutrition/Malnutrition Assess - Dietary Evaluation Nutrition/Malnutrition Findings: Nutrition Notes Start: 07/29/20 09:47 Freq: Status: Active Protocol: Document 08/17/20 11:01 (Rec: 08/17/20 11:05 [email or web address]) Nutrition Notes Initial or Follow up Reassessment Current Diagnosis Acute Kidney Injury, Respiratory Failure Other Pertinent Diagnosis Acute encephalopathy, Pneu, UTI, Quadriplegia Current Diet Vital AF 1.2 at 65 ml/hr Labs/Tests BG 205 Pertinent Medications Humalog Height 6 ft Weight 79.2 kg [place] Body Weight (kg) 80.90 BMI 23.6 Weight Status Appropriate Subjective/Other Information FU for TF tolerance. Observed TF running at goal rate and pt tolerating. Percent of energy/protein needs met: 98%/100% Burn Absent Trauma Absent Current % PO Negligible Minimum of two criteria No Fluid Accumulation Moderate to Severe (severe) #2 Nutrition Diagnosis Increased nutrient needs ( specify in comment below) Diagnosis Progress(for reassessment Continues documentation) #1 Nutrition Diagnosis Inadequate oral intake Diagnosis Progress(for reassessment Continues documentation) Is patient on ventilator? Yes Is Patient Ambulatory and/or Out of Bed No REE-([facility]-confined to bed) [phone] Calculation Used for Recommendations [facility] Additional Notes Pro needs 1.2-2g/k-163g/ day Fluid needs 1ml/kcal Nutrition Intervention Change Diet Order: Continue Nutrition Support: Continue Vital AF 1.2 at 65ml/ hr with 100 ml water flush q4h . Kcal 1,872 Protein (gm) 117 Fluid (mL) 1,265 Add Supplement/Snack (indicate name/kcal Reji BID /protein ) Provides kCal: 190 Provides Protein (gm) 5 Goal #1 TF tolerance Goal #2 TF to meet at least 80% energy and pro needs Anticipated Discharge Needs: Unable to determine at this time Follow-Up By: 08/22/20 Additional Comments FU for TF tolerance, BG, Reji administration
[2020-08-22] MEDS: METOPROLOL TARTRATE 50 MG TAB PO SCH ×2 (09:24→21:08)
[2020-08-22] MEDS: ENOXAPARIN 40 MG/0.4 ML INJ SUB-Q SCH (09:24)
[2020-08-22] MEDS: SCOPOLAMINE TRANSDERMAL PATCH 72 HR TD SCH (09:24)
[2020-08-22] MEDS: SENNOSIDES/DOCUSATE SODIUM 8.6/50 MG TAB FEEDTUBE SCH ×2 (09:24→21:07)
[2020-08-22] MEDS: FAMOTIDINE 20 MG TAB PO SCH ×2 (09:24→21:07)
[2020-08-22] MEDS: ZINC SULFATE 220 MG CAP PO SCH ×2 (09:25→21:07)
[2020-08-22] MEDS: amLODIPine 10 MG TAB PO SCH (09:25)
[2020-08-22] MEDS: INSULIN GLARGINE 100 UNITS/ML SUB-Q SCH (09:25)
[2020-08-22] MEDS: CEFEPIME/NS 2 GM/100 ML 2 GM/100 ML BAG IV SCH ×2 (09:26→21:08)
[2020-08-22] MEDS: hydrALAZINE 10 MG TAB PO SCH ×3 (09:27→21:13)
[2020-08-22] MEDS: GLYCOPYRROLATE 2 MG TAB PO SCH ×3 (09:28→20:50)
--- NOTE | 2020-08-22 09:35 | Progress Note ---
Assessment and Plan - Patient Problems (1) Bradycardia Current Visit: Yes Status: Acute Plan to address problem: No further bradycardia. An echocardiogram this presentation showed well-preserved left ventricular systolic function with ejection fraction 50 to 55%. Supportive cardiac management. Will follow intermittently. Subjective Date of service: 08/22/20 Principal diagnosis: Ac. encephalopathy; Ac. hypoxemic resp failure; Septic Shock; PNA; UTI; [place] Interval history: Patient is on mechanical ventilation via tracheostomy. Stable sinus rhythm on telemetry monitoring. Objective Vital Signs Temp Pulse Pulse Resp BP Pulse Ox Pulse Ox 08/22/20 08:00 98.5 F 71 70 22 164/86 99 08/22/20 07:51 97 08/22/20 07:49 84 145/68 97 08/22/20 07:00 77 21 156/77 99 08/22/20 06:00 71 26 H 183/86 99 08/22/20 05:00 80 23 179/85 97 08/22/20 04:30 83 143/71 98 08/22/20 04:00 98.0 F 74 70 20 143/71 99 08/22/20 03:00 79 20 148/72 99 08/22/20 02:00 81 22 146/77 98 08/22/20 01:00 80 23 138/68 99 08/22/20 00:01 79 140/69 95 08/22/20 00:00 69 72 19 140/69 97 95 08/21/20 23:43 98.7 F 08/21/20 23:00 73 16 154/73 99 08/21/20 22:26 74 22 152/74 98 08/21/20 22:00 85 25 H 152/74 99 08/21/20 21:01 91 H 141/67 08/21/20 21:00 86 25 H 166/78 99 08/21/20 20:00 87 87 20 166/78 96 08/21/20 19:50 98.2 F 08/21/20 19:46 90 166/78 98 08/21/20 19:00 79 24 155/75 98 08/21/20 18:00 78 24 98 08/21/20 17:01 77 26 H 152/74 99 08/21/20 16:01 88 19 149/78 99 08/21/20 16:00 98.9 F 78 08/21/20 15:41 87 149/78 98 08/21/20 15:01 84 18 156/85 99 08/21/20 14:01 85 31 H 156/85 96 08/21/20 13:59 97 08/21/20 13:01 90 25 H 150/83 98 08/21/20 12:01 87 29 H 140/74 98 08/21/20 12:00 99.2 F 08/21/20 11:01 77 27 H 146/73 86 08/21/20 10:01 83 26 H 146/80 94 - Physical Examination General: Other (On the vent, via tracheostomy) HEENT: Positive: Normocephaly Neck: Positive: Other (tracheostomy in place) Cardiac: Positive: Reg Rate and Rhythm Neuro: Positive: Other (On the vent, via tracheostomy; History of quadriplegia) - Allied health notes Allied health notes reviewed: nursing
--- NOTE | 2020-08-22 11:13 | Progress Note ---
Assessment and Plan Acute possibly on chronic toxic metabolic encephalopathy Acute hypoxemic respiratory failure on MVS Severe sepsis with shock, presumably secondary to aspiration pneumonia Recent upper ext DVT (06/06) Aspiration pneumonia, bilateral Urinary tract infection History of quadriplegia Leukocytosis Anemia that is microcytic Coagulopathy. INR 2.17 at presentation Mild hypokalemia Acute kidney injury Metabolic lactic acidosis Non-ST elevation myocardial infarction Adult failure to thrive Moderate to severe protein calorie malnutrition - RT asked to begin SBT - get ABG after 2 hours if tolerates - continue Robinul for better secretion control - pleural fluid not hemothorax and neutrophil predominant - continue daily SAT's and SBT's as tolerated - LTAC evaluation ongoing - continue care as below otherwise; - prn Levophed for target MAP > 65 mmHg - continue to wean supplemental oxygen for target O2 sat's > 90% acutely - VAP bundle addressed - continue lung protective strategies - continue bronchodilators with routine trach care and pulmonary hygiene per RT - wean per pulmonary driven protocols otherwise - avoid nephrotoxins, renally dose all medications - continue to avoid benzodiazepine's, reduce the possibility of delirium - complete antiinfective's per ID rec's - prn analgesia per CPOT score - Maintenance of sleep-wake cycle, avoid delirium - continue enteral nutritional support at goal rate as tolerated - G.I. & VTE prophylaxis - PT/OT/ROM exercises - continue wound care per RN / WCN - continue mobility protocols for pressure ulcer prophylaxis - Monitor hemodynamics closely - continue other care per attending / other consultants - discharge planning ongoing concurrently COVID SPECIFIC INTERVENTIONS: - COVID test result negative .... Re-evaluate in am & prn CONDITION: CRITICAL PROGNOSIS: GUARDED CODE STATUS: FULL CODE The high probability of a clinically significant, sudden or life-threatening deterioration of the [respiratory, cardiovascular & neurologic] system(s) required my full and direct attention, intervention and personal management. The aggregate critical care time was [36] minutes without overlap. Time includes spent on; [x] Data Review and interpretation [x] Patient assessment and monitoring of vital signs [x] Documentation [x] Medication orders and management Subjective Date of service: 08/22/20 Principal diagnosis: Ac. encephalopathy; Ac. hypoxemic resp failure; Septic Shock; PNA; UTI; JEFFERSON Interval history: Patient is seen today for: Acute encephalopathy; Acute hypoxemic respiratory failure; Septic Shock; Aspiration pneumonia; UTI; quadriplegia; JEFFERSON Seen and examined at bedside; 24hour events reviewed; nursing and respiratory care staff consulted; no adverse overnight events reported to me; resting in bed; remains on MVS; on full support; FiO2 down to 45% with some room to wean; blood glucose levels improved Objective Vital Signs - 12hr 08/21/20 08/22/20 08/22/20 23:43 00:00 00:01 Temperature 98.7 F Pulse Rate 69 79 Pulse Rate [ 72 From Monitor] Respiratory 19 Rate Blood Pressure 140/69 140/69 O2 Sat by Pulse 97 95 Oximetry O2 Sat by Pulse 95 Oximetry [ Assessment] 08/22/20 08/22/20 08/22/20 01:00 02:00 03:00 Temperature Pulse Rate 80 81 79 Pulse Rate [ From Monitor] Respiratory 23 22 20 Rate Blood Pressure 138/68 146/77 148/72 O2 Sat by Pulse 99 98 99 Oximetry O2 Sat by Pulse Oximetry [ Assessment] 08/22/20 08/22/20 08/22/20 04:00 04:30 05:00 Temperature 98.0 F Pulse Rate 74 83 80 Pulse Rate [ 70 From Monitor] Respiratory 20 23 Rate Blood Pressure 143/71 143/71 179/85 O2 Sat by Pulse 99 98 97 Oximetry O2 Sat by Pulse Oximetry [ Assessment] 08/22/20 08/22/20 08/22/20 06:00 07:00 07:49 Temperature Pulse Rate 71 77 84 Pulse Rate [ From Monitor] Respiratory 26 H 21 Rate Blood Pressure 183/86 156/77 145/68 O2 Sat by Pulse 99 99 97 Oximetry O2 Sat by Pulse Oximetry [ Assessment] 08/22/20 08/22/20 08/22/20 07:51 08:00 09:00 Temperature 98.5 F Pulse Rate 71 78 Pulse Rate [ 70 From Monitor] Respiratory 22 24 Rate Blood Pressure 164/86 158/76 O2 Sat by Pulse 99 99 Oximetry O2 Sat by Pulse 97 Oximetry [ Assessment] 08/22/20 10:00 Temperature Pulse Rate 74 Pulse Rate [ From Monitor] Respiratory 18 Rate Blood Pressure 161/84 O2 Sat by Pulse 99 Oximetry O2 Sat by Pulse Oximetry [ Assessment] Constitutional: appears uncomfortable, other ( chronically ill looking male with mildly increased respiratory effort at rest on MVS) Eyes: non-icteric ENT: oropharynx moist, oropharyngeal exudate pre (non-bloody; mild), other (trach) Neck: supple, no lymphadenopathy, no JVD Effort: mildly labored Ascultation: Bilateral: diminished breath sounds (bases), rhonchi Percussion: Bilateral: not dull Cardiovascular: regular rate and rhythm, other (S1,S2) Gastrointestinal: normoactive bowel sounds, soft, non-tender, non-distended, other (PEG) Integumentary: rash, decubitus ulcer (sacral (POA)) Extremities: no cyanosis, pulses normal, edema (lower extremities and bilatral upper extremity) Neurologic: pupils equal and round, other (quadriplegic; responds appropriately to questions / prompts) Psychiatric: mood appropriate, affect normal CBC and BMP: 08/20/20 14:10 08/20/20 14:10 ABG, PT/INR, D-dimer: ABG ABG pH 7.480 (7.320-7.450) H 08/18/20 05:00 POC ABG pCO2 40.2 mmHg (32.0-48.0) 08/18/20 05:00 ABG pCO2 35.7 mm Hg 08/15/20 Unknown POC ABG pO2 95.3 mmHg (83-108) 08/18/20 05:00 ABG pO2 77.7 mm Hg (80.0-90.0) L 08/15/20 Unknown POC ABG HCO3 29.3 08/18/20 05:00 ABG O2 Saturation 97.8 (0-100) 08/18/20 05:00 PT/INR, D-dimer PT 14.7 Sec. (12.2-14.9) 08/15/20 10:28 INR 1.09 (0.87-1.13) 08/15/20 10:28 Abnormal lab findings: Abnormal Labs 07/28/20 07/28/20 07/28/20 08:48 08:48 08:48 WBC 17.0 H RBC 2.77 L Hgb 8.2 L Hct 26.5 L MCV 96 H MCH MCHC 31 L RDW 16.2 H Plt Count Seg Neuts % (Manual) Lymphocytes % (Manual) Seg Neutrophils # Man Lymphocytes # (Manual) Haptoglobin PT 24.7 H INR 2.17 H ABG pH POC ABG pCO2 POC ABG pO2 ABG pO2 ABG O2 Saturation ABG Hemoglobin ABG Oxyhemoglobin ABG Sodium ABG Potassium ABG Chloride ABG Glucose Oxyhemoglobin Carboxyhemoglobin Sodium 135 L Potassium 3.5 L Chloride 97.6 L Carbon Dioxide BUN 44 H Creatinine 1.6 H Glucose 431 H POC Glucose Hemoglobin A1c Lactic Acid Calcium 7.9 L Ionized Calcium Phosphorus AST 81 H ALT Alkaline Phosphatase Ammonia Lactate Dehydrogenase Total Creatine Kinase 486 H Troponin T 0.115 H* C-Reactive Protein Total Protein 5.6 L Albumin 2.6 L Triglycerides LDL Cholesterol Direct 44 L HDL Cholesterol 26 L Arterial Blood Glucose Arterial Blood Ionized Calcium Urine WBC (Auto) Salicylates Crossmatch 07/28/20 07/28/20 07/28/20 08:48 09:44 09:44 WBC RBC Hgb Hct MCV MCH MCHC RDW Plt Count Seg Neuts % (Manual) Lymphocytes % (Manual) Seg Neutrophils # Man Lymphocytes # (Manual) Haptoglobin PT INR ABG pH POC ABG pCO2 POC ABG pO2 ABG pO2 ABG O2 Saturation ABG Hemoglobin ABG Oxyhemoglobin ABG Sodium ABG Potassium ABG Chloride ABG Glucose Oxyhemoglobin Carboxyhemoglobin Sodium Potassium Chloride Carbon Dioxide BUN Creatinine Glucose POC Glucose Hemoglobin A1c Lactic Acid 3.80 H* Calcium Ionized Calcium Phosphorus AST ALT Alkaline Phosphatase Ammonia 63.0 H Lactate Dehydrogenase Total Creatine Kinase Troponin T C-Reactive Protein Total Protein Albumin Triglycerides LDL Cholesterol Direct HDL Cholesterol Arterial Blood Glucose Arterial Blood Ionized Calcium Urine WBC (Auto) Salicylates < 0.3 L Crossmatch 07/28/20 07/28/20 07/28/20 10:18 14:38 15:58 WBC RBC Hgb Hct MCV MCH MCHC RDW Plt Count Seg Neuts % (Manual) Lymphocytes % (Manual) Seg Neutrophils # Man Lymphocytes # (Manual) Haptoglobin PT INR ABG pH POC ABG pCO2 POC ABG pO2 ABG pO2 78.0 L ABG O2 Saturation ABG Hemoglobin 7.6 L ABG Oxyhemoglobin ABG Sodium ABG Potassium ABG Chloride ABG Glucose Oxyhemoglobin Carboxyhemoglobin Sodium Potassium Chloride Carbon Dioxide BUN Creatinine Glucose POC Glucose 265 H Hemoglobin A1c Lactic Acid 3.90 H* Calcium Ionized Calcium Phosphorus AST ALT Alkaline Phosphatase Ammonia Lactate Dehydrogenase Total Creatine Kinase Troponin T C-Reactive Protein Total Protein Albumin Triglycerides LDL Cholesterol Direct HDL Cholesterol Arterial Blood Glucose Arterial Blood Ionized Calcium Urine WBC (Auto) Salicylates Crossmatch 07/28/20 07/28/2021 19:50 21:00 Unknown WBC RBC Hgb Hct MCV MCH MCHC RDW Plt Count Seg Neuts % (Manual) Lymphocytes % (Manual) Seg Neutrophils # Man Lymphocytes # (Manual) Haptoglobin PT INR ABG pH 7.107 L POC ABG pCO2 65.6 H POC ABG pO2 ABG pO2 ABG O2 Saturation ABG Hemoglobin 9.9 L ABG Oxyhemoglobin ABG Sodium ABG Potassium ABG Chloride 108.0 H ABG Glucose 299 H Oxyhemoglobin Carboxyhemoglobin 0.2 L Sodium Potassium Chloride Carbon Dioxide BUN Creatinine Glucose POC Glucose Hemoglobin A1c Lactic Acid Calcium Ionized Calcium Phosphorus 5.40 H AST ALT Alkaline Phosphatase Ammonia Lactate Dehydrogenase Total Creatine Kinase Troponin T C-Reactive Protein 9.00 H Total Protein Albumin Triglycerides LDL Cholesterol Direct HDL Cholesterol Arterial Blood Glucose 299 H Arterial Blood Ionized Calcium 4.2 L Urine WBC (Auto) > 182.0 H Salicylates Crossmatch 07/29/20 07/29/20 07/29/20 04:02 13:00 17:13 WBC RBC Hgb Hct MCV MCH MCHC RDW Plt Count Seg Neuts % (Manual) Lymphocytes % (Manual) Seg Neutrophils # Man Lymphocytes # (Manual) Haptoglobin PT INR ABG pH 7.212 L POC ABG pCO2 52.5 H POC ABG pO2 128.3 H ABG pO2 ABG O2 Saturation ABG Hemoglobin 10.5 L ABG Oxyhemoglobin ABG Sodium ABG Potassium ABG Chloride 108.0 H ABG Glucose 239 H Oxyhemoglobin Carboxyhemoglobin Sodium Potassium Chloride Carbon Dioxide BUN Creatinine Glucose POC Glucose 212 H 257 H Hemoglobin A1c Lactic Acid Calcium Ionized Calcium Phosphorus AST ALT Alkaline Phosphatase Ammonia Lactate Dehydrogenase Total Creatine Kinase Troponin T C-Reactive Protein Total Protein Albumin Triglycerides LDL Cholesterol Direct HDL Cholesterol Arterial Blood Glucose 239 H Arterial Blood Ionized Calcium 4.0 L Urine WBC (Auto) Salicylates Crossmatch 07/29/20 07/29/20 07/29/20 21:00 23:20 Unknown WBC RBC 3.05 L Hgb 9.7 L Hct 28.6 L MCV MCH MCHC RDW 16.1 H Plt Count Seg Neuts % (Manual) 75.0 H Lymphocytes % (Manual) 2.0 L Seg Neutrophils # Man Lymphocytes # (Manual) 0.2 L Haptoglobin PT INR ABG pH 7.286 L POC ABG pCO2 POC ABG pO2 ABG pO2 ABG O2 Saturation ABG Hemoglobin 9.1 L ABG Oxyhemoglobin ABG Sodium ABG Potassium ABG Chloride 109.0 H ABG Glucose 285 H Oxyhemoglobin Carboxyhemoglobin Sodium Potassium Chloride Carbon Dioxide BUN Creatinine Glucose POC Glucose 233 H Hemoglobin A1c Lactic Acid Calcium Ionized Calcium Phosphorus AST ALT Alkaline Phosphatase Ammonia Lactate Dehydrogenase Total Creatine Kinase Troponin T C-Reactive Protein Total Protein Albumin Triglycerides LDL Cholesterol Direct HDL Cholesterol Arterial Blood Glucose 285 H Arterial Blood Ionized Calcium 3.9 L Urine WBC (Auto) Salicylates Crossmatch 07/29/20 07/29/20 07/30/20 Unknown Unknown 05:30 WBC RBC Hgb Hct MCV MCH MCHC RDW Plt Count Seg Neuts % (Manual) Lymphocytes % (Manual) Seg Neutrophils # Man Lymphocytes # (Manual) Haptoglobin PT INR ABG pH POC ABG pCO2 POC ABG pO2 ABG pO2 ABG O2 Saturation ABG Hemoglobin ABG Oxyhemoglobin ABG Sodium ABG Potassium ABG Chloride ABG Glucose Oxyhemoglobin Carboxyhemoglobin Sodium Potassium Chloride 108.4 H Carbon Dioxide 21 L BUN 41 H Creatinine Glucose 217 H POC Glucose 245 H Hemoglobin A1c Lactic Acid 2.70 H* Calcium 6.5 L D Ionized Calcium Phosphorus AST 104 H ALT 74 H Alkaline Phosphatase Ammonia Lactate Dehydrogenase Total Creatine Kinase Troponin T C-Reactive Protein Total Protein 5.1 L Albumin 2.4 L Triglycerides LDL Cholesterol Direct HDL Cholesterol Arterial Blood Glucose Arterial Blood Ionized Calcium Urine WBC (Auto) Salicylates Crossmatch 07/30/20 07/30/20 07/30/20 05:45 05:45 12:12 WBC RBC 2.50 L Hgb 7.8 L Hct 23.3 L MCV MCH MCHC RDW 16.4 H Plt Count Seg Neuts % (Manual) Lymphocytes % (Manual) Seg Neutrophils # Man Lymphocytes # (Manual) Haptoglobin PT INR ABG pH POC ABG pCO2 POC ABG pO2 ABG pO2 ABG O2 Saturation ABG Hemoglobin ABG Oxyhemoglobin ABG Sodium ABG Potassium ABG Chloride ABG Glucose Oxyhemoglobin Carboxyhemoglobin Sodium Potassium Chloride 108.4 H Carbon Dioxide 21 L BUN 44 H Creatinine 1.4 H Glucose 279 H POC Glucose 243 H Hemoglobin A1c Lactic Acid Calcium 6.7 L Ionized Calcium Phosphorus AST 51 H ALT Alkaline Phosphatase Ammonia Lactate Dehydrogenase Total Creatine Kinase Troponin T C-Reactive Protein Total Protein 5.5 L Albumin 2.3 L Triglycerides LDL Cholesterol Direct HDL Cholesterol Arterial Blood Glucose Arterial Blood Ionized Calcium Urine WBC (Auto) Salicylates Crossmatch 07/30/20 07/30/20 07/30/20 15:50 17:20 19:01 WBC RBC Hgb Hct MCV MCH MCHC RDW Plt Count Seg Neuts % (Manual) Lymphocytes % (Manual) Seg Neutrophils # Man Lymphocytes # (Manual) Haptoglobin PT INR ABG pH POC ABG pCO2 POC ABG pO2 147.2 H ABG pO2 ABG O2 Saturation ABG Hemoglobin 7.2 L ABG Oxyhemoglobin ABG Sodium ABG Potassium 3.3 L ABG Chloride 115.0 H ABG Glucose 269 H Oxyhemoglobin Carboxyhemoglobin 1.6 H Sodium Potassium Chloride Carbon Dioxide BUN Creatinine Glucose POC Glucose 260 H Hemoglobin A1c Lactic Acid Calcium Ionized Calcium 4.2 L Phosphorus AST ALT Alkaline Phosphatase Ammonia Lactate Dehydrogenase Total Creatine Kinase Troponin T C-Reactive Protein Total Protein Albumin Triglycerides LDL Cholesterol Direct HDL Cholesterol Arterial Blood Glucose 269 H Arterial Blood Ionized Calcium 3.5 L Urine WBC (Auto) Salicylates Crossmatch 07/30/20 07/31/20 07/31/20 23:16 04:04 04:47 WBC RBC Hgb Hct MCV MCH MCHC RDW Plt Count Seg Neuts % (Manual) Lymphocytes % (Manual) Seg Neutrophils # Man Lymphocytes # (Manual) Haptoglobin PT INR ABG pH POC ABG pCO2 POC ABG pO2 ABG pO2 ABG O2 Saturation ABG Hemoglobin 7.6 L ABG Oxyhemoglobin ABG Sodium ABG Potassium 3.3 L ABG Chloride 113.0 H ABG Glucose 348 H Oxyhemoglobin Carboxyhemoglobin 0.4 L Sodium Potassium Chloride Carbon Dioxide BUN Creatinine Glucose POC Glucose 298 H 297 H Hemoglobin A1c Lactic Acid Calcium Ionized Calcium Phosphorus AST ALT Alkaline Phosphatase Ammonia Lactate Dehydrogenase Total Creatine Kinase Troponin T C-Reactive Protein Total Protein Albumin Triglycerides LDL Cholesterol Direct HDL Cholesterol Arterial Blood Glucose 348 H Arterial Blood Ionized Calcium 4.1 L Urine WBC (Auto) Salicylates Crossmatch 07/31/20 07/31/20 07/31/20 07:26 07:26 11:54 WBC RBC 2.29 L Hgb 7.2 L Hct 21.5 L MCV MCH MCHC RDW 16.7 H Plt Count Seg Neuts % (Manual) Lymphocytes % (Manual) Seg Neutrophils # Man Lymphocytes # (Manual) Haptoglobin PT INR ABG pH POC ABG pCO2 POC ABG pO2 ABG pO2 ABG O2 Saturation ABG Hemoglobin ABG Oxyhemoglobin ABG Sodium ABG Potassium ABG Chloride ABG Glucose Oxyhemoglobin Carboxyhemoglobin Sodium Potassium 3.4 L Chloride 109.4 H Carbon Dioxide BUN 45 H Creatinine 1.4 H Glucose 304 H POC Glucose 302 H Hemoglobin A1c Lactic Acid Calcium 6.9 L Ionized Calcium Phosphorus AST ALT Alkaline Phosphatase Ammonia Lactate Dehydrogenase Total Creatine Kinase Troponin T C-Reactive Protein Total Protein Albumin Triglycerides LDL Cholesterol Direct HDL Cholesterol Arterial Blood Glucose Arterial Blood Ionized Calcium Urine WBC (Auto) Salicylates Crossmatch 07/31/20 08/01/20 08/01/20 21:27 03:09 04:30 WBC RBC 2.29 L Hgb 7.0 L Hct 20.7 L MCV MCH MCHC RDW 16.2 H Plt Count 125 L Seg Neuts % (Manual) Lymphocytes % (Manual) Seg Neutrophils # Man Lymphocytes # (Manual) Haptoglobin PT INR ABG pH POC ABG pCO2 POC ABG pO2 ABG pO2 ABG O2 Saturation ABG Hemoglobin 7.4 L ABG Oxyhemoglobin ABG Sodium 146.9 H ABG Potassium 3.2 L ABG Chloride 116.0 H ABG Glucose 113 H Oxyhemoglobin Carboxyhemoglobin Sodium Potassium Chloride Carbon Dioxide BUN Creatinine Glucose POC Glucose 138 H Hemoglobin A1c Lactic Acid Calcium Ionized Calcium Phosphorus AST ALT Alkaline Phosphatase Ammonia Lactate Dehydrogenase Total Creatine Kinase Troponin T C-Reactive Protein Total Protein Albumin Triglycerides LDL Cholesterol Direct HDL Cholesterol Arterial Blood Glucose 113 H Arterial Blood Ionized Calcium 4.5 L Urine WBC (Auto) Salicylates Crossmatch 08/01/20 08/01/20 08/01/20 04:30 04:30 08:40 WBC RBC Hgb Hct MCV MCH MCHC RDW Plt Count Seg Neuts % (Manual) Lymphocytes % (Manual) Seg Neutrophils # Man Lymphocytes # (Manual) Haptoglobin PT INR ABG pH POC ABG pCO2 POC ABG pO2 ABG pO2 ABG O2 Saturation ABG Hemoglobin ABG Oxyhemoglobin ABG Sodium ABG Potassium ABG Chloride ABG Glucose Oxyhemoglobin Carboxyhemoglobin Sodium 148 H Potassium 3.4 L Chloride 114.3 H Carbon Dioxide BUN 43 H Creatinine Glucose 109 H POC Glucose Hemoglobin A1c 8.8 H Lactic Acid Calcium 8.1 L D Ionized Calcium Phosphorus AST ALT Alkaline Phosphatase Ammonia Lactate Dehydrogenase Total Creatine Kinase Troponin T C-Reactive Protein Total Protein Albumin Triglycerides LDL Cholesterol Direct HDL Cholesterol Arterial Blood Glucose Arterial Blood Ionized Calcium Urine WBC (Auto) Salicylates Crossmatch See Detail 08/01/20 08/01/20 08/01/20 08:40 17:03 23:35 WBC RBC Hgb Hct MCV MCH MCHC RDW Plt Count Seg Neuts % (Manual) Lymphocytes % (Manual) Seg Neutrophils # Man Lymphocytes # (Manual) Haptoglobin PT INR ABG pH POC ABG pCO2 POC ABG pO2 ABG pO2 ABG O2 Saturation ABG Hemoglobin ABG Oxyhemoglobin ABG Sodium ABG Potassium ABG Chloride ABG Glucose Oxyhemoglobin Carboxyhemoglobin Sodium Potassium Chloride Carbon Dioxide BUN Creatinine Glucose POC Glucose 129 H 172 H Hemoglobin A1c Lactic Acid Calcium Ionized Calcium Phosphorus 1.70 L AST ALT Alkaline Phosphatase Ammonia Lactate Dehydrogenase Total Creatine Kinase Troponin T C-Reactive Protein Total Protein Albumin Triglycerides LDL Cholesterol Direct HDL Cholesterol Arterial Blood Glucose Arterial Blood Ionized Calcium Urine WBC (Auto) Salicylates Crossmatch 08/02/20 08/02/20 08/02/20 03:50 05:46 10:54 WBC RBC Hgb Hct MCV MCH MCHC RDW Plt Count Seg Neuts % (Manual) Lymphocytes % (Manual) Seg Neutrophils # Man Lymphocytes # (Manual) Haptoglobin PT INR ABG pH 7.333 L POC ABG pCO2 POC ABG pO2 ABG pO2 91.5 H ABG O2 Saturation ABG Hemoglobin 7.9 L ABG Oxyhemoglobin ABG Sodium ABG Potassium ABG Chloride ABG Glucose Oxyhemoglobin Carboxyhemoglobin Sodium Potassium Chloride Carbon Dioxide BUN Creatinine Glucose POC Glucose 161 H 228 H Hemoglobin A1c Lactic Acid Calcium Ionized Calcium Phosphorus AST ALT Alkaline Phosphatase Ammonia Lactate Dehydrogenase Total Creatine Kinase Troponin T C-Reactive Protein Total Protein Albumin Triglycerides LDL Cholesterol Direct HDL Cholesterol Arterial Blood Glucose Arterial Blood Ionized Calcium Urine WBC (Auto) Salicylates Crossmatch 08/02/20 08/02/20 08/02/20 17:20 23:13 Unknown WBC RBC 2.66 L Hgb 8.1 L Hct 23.9 L MCV MCH MCHC RDW 16.8 H Plt Count 110 L Seg Neuts % (Manual) Lymphocytes % (Manual) Seg Neutrophils # Man Lymphocytes # (Manual) Haptoglobin PT INR ABG pH POC ABG pCO2 POC ABG pO2 ABG pO2 ABG O2 Saturation ABG Hemoglobin ABG Oxyhemoglobin ABG Sodium ABG Potassium ABG Chloride ABG Glucose Oxyhemoglobin Carboxyhemoglobin Sodium Potassium Chloride Carbon Dioxide BUN Creatinine Glucose POC Glucose 214 H 132 H Hemoglobin A1c Lactic Acid Calcium Ionized Calcium Phosphorus AST ALT Alkaline Phosphatase Ammonia Lactate Dehydrogenase Total Creatine Kinase Troponin T C-Reactive Protein Total Protein Albumin Triglycerides LDL Cholesterol Direct HDL Cholesterol Arterial Blood Glucose Arterial Blood Ionized Calcium Urine WBC (Auto) Salicylates Crossmatch 08/02/20 08/02/20 08/03/20 Unknown Unknown 02:59 WBC RBC Hgb Hct MCV MCH MCHC RDW Plt Count Seg Neuts % (Manual) Lymphocytes % (Manual) Seg Neutrophils # Man Lymphocytes # (Manual) Haptoglobin PT INR ABG pH POC ABG pCO2 POC ABG pO2 ABG pO2 ABG O2 Saturation ABG Hemoglobin 8.1 L ABG Oxyhemoglobin ABG Sodium ABG Potassium ABG Chloride 113.0 H ABG Glucose 143 H Oxyhemoglobin Carboxyhemoglobin Sodium 150 H Potassium 3.5 L Chloride 115.9 H Carbon Dioxide BUN 42 H Creatinine Glucose 188 H POC Glucose Hemoglobin A1c Lactic Acid Calcium 7.8 L Ionized Calcium Phosphorus 2.30 L D AST ALT Alkaline Phosphatase Ammonia Lactate Dehydrogenase Total Creatine Kinase Troponin T C-Reactive Protein Total Protein Albumin Triglycerides LDL Cholesterol Direct HDL Cholesterol Arterial Blood Glucose 143 H Arterial Blood Ionized Calcium Urine WBC (Auto) Salicylates Crossmatch 08/03/20 08/03/20 08/03/20 04:16 04:16 05:12 WBC RBC 2.62 L Hgb 8.1 L Hct 24.1 L MCV MCH MCHC RDW 17.4 H Plt Count 118 L Seg Neuts % (Manual) Lymphocytes % (Manual) Seg Neutrophils # Man Lymphocytes # (Manual) Haptoglobin PT INR ABG pH POC ABG pCO2 POC ABG pO2 ABG pO2 ABG O2 Saturation ABG Hemoglobin ABG Oxyhemoglobin ABG Sodium ABG Potassium ABG Chloride ABG Glucose Oxyhemoglobin Carboxyhemoglobin Sodium 148 H Potassium Chloride 114.5 H Carbon Dioxide BUN 47 H Creatinine Glucose 158 H POC Glucose 164 H Hemoglobin A1c Lactic Acid Calcium 8.1 L Ionized Calcium Phosphorus 2.30 L AST ALT Alkaline Phosphatase Ammonia Lactate Dehydrogenase Total Creatine Kinase Troponin T C-Reactive Protein Total Protein Albumin Triglycerides LDL Cholesterol Direct HDL Cholesterol Arterial Blood Glucose Arterial Blood Ionized Calcium Urine WBC (Auto) Salicylates Crossmatch 08/03/20 08/03/20 08/03/20 11:26 17:33 23:47 WBC RBC Hgb Hct MCV MCH MCHC RDW Plt Count Seg Neuts % (Manual) Lymphocytes % (Manual) Seg Neutrophils # Man Lymphocytes # (Manual) Haptoglobin PT INR ABG pH POC ABG pCO2 POC ABG pO2 ABG pO2 ABG O2 Saturation ABG Hemoglobin ABG Oxyhemoglobin ABG Sodium ABG Potassium ABG Chloride ABG Glucose Oxyhemoglobin Carboxyhemoglobin Sodium Potassium Chloride Carbon Dioxide BUN Creatinine Glucose POC Glucose 190 H 235 H 194 H Hemoglobin A1c Lactic Acid Calcium Ionized Calcium Phosphorus AST ALT Alkaline Phosphatase Ammonia Lactate Dehydrogenase Total Creatine Kinase Troponin T C-Reactive Protein Total Protein Albumin Triglycerides LDL Cholesterol Direct HDL Cholesterol Arterial Blood Glucose Arterial Blood Ionized Calcium Urine WBC (Auto) Salicylates Crossmatch 08/04/20 08/04/20 08/04/20 03:00 03:00 04:14 WBC RBC Hgb Hct MCV MCH MCHC RDW Plt Count Seg Neuts % (Manual) Lymphocytes % (Manual) Seg Neutrophils # Man Lymphocytes # (Manual) Haptoglobin PT INR ABG pH POC ABG pCO2 POC ABG pO2 79.5 L ABG pO2 ABG O2 Saturation ABG Hemoglobin 9.9 L ABG Oxyhemoglobin ABG Sodium ABG Potassium ABG Chloride 113.0 H ABG Glucose 227 H Oxyhemoglobin Carboxyhemoglobin 0.3 L Sodium Potassium Chloride 111.4 H Carbon Dioxide BUN 51 H Creatinine Glucose 218 H POC Glucose Hemoglobin A1c Lactic Acid Calcium Ionized Calcium Phosphorus AST ALT Alkaline Phosphatase Ammonia Lactate Dehydrogenase Total Creatine Kinase Troponin T C-Reactive Protein Total Protein Albumin Triglycerides 184 H LDL Cholesterol Direct HDL Cholesterol Arterial Blood Glucose 227 H Arterial Blood Ionized Calcium Urine WBC (Auto) Salicylates Crossmatch 08/04/20 08/04/20 08/04/20 05:17 11:52 11:53 WBC RBC Hgb Hct MCV MCH MCHC RDW Plt Count Seg Neuts % (Manual) Lymphocytes % (Manual) Seg Neutrophils # Man Lymphocytes # (Manual) Haptoglobin PT INR ABG pH POC ABG pCO2 POC ABG pO2 ABG pO2 ABG O2 Saturation ABG Hemoglobin ABG Oxyhemoglobin ABG Sodium ABG Potassium ABG Chloride ABG Glucose Oxyhemoglobin Carboxyhemoglobin Sodium Potassium Chloride Carbon Dioxide BUN Creatinine Glucose POC Glucose 224 H 253 H 237 H Hemoglobin A1c Lactic Acid Calcium Ionized Calcium Phosphorus AST ALT Alkaline Phosphatase Ammonia Lactate Dehydrogenase Total Creatine Kinase Troponin T C-Reactive Protein Total Protein Albumin Triglycerides LDL Cholesterol Direct HDL Cholesterol Arterial Blood Glucose Arterial Blood Ionized Calcium Urine WBC (Auto) Salicylates Crossmatch 08/04/20 08/04/20 08/04/20 15:35 16:25 17:45 WBC 21.5 H RBC 2.10 L Hgb 7.3 L Hct 22.0 L MCV MCH 33 H MCHC 37 H RDW 17.2 H Plt Count 133 L Seg Neuts % (Manual) Lymphocytes % (Manual) Seg Neutrophils # Man Lymphocytes # (Manual) Haptoglobin PT INR ABG pH POC ABG pCO2 POC ABG pO2 ABG pO2 ABG O2 Saturation ABG Hemoglobin ABG Oxyhemoglobin ABG Sodium ABG Potassium ABG Chloride ABG Glucose Oxyhemoglobin Carboxyhemoglobin Sodium Potassium Chloride Carbon Dioxide BUN Creatinine Glucose POC Glucose 230 H 218 H Hemoglobin A1c Lactic Acid Calcium Ionized Calcium Phosphorus AST ALT Alkaline Phosphatase Ammonia Lactate Dehydrogenase Total Creatine Kinase Troponin T C-Reactive Protein Total Protein Albumin Triglycerides LDL Cholesterol Direct HDL Cholesterol Arterial Blood Glucose Arterial Blood Ionized Calcium Urine WBC (Auto) Salicylates Crossmatch 08/04/20 08/05/20 08/05/20 23:11 03:28 05:25 WBC RBC Hgb Hct MCV MCH MCHC RDW Plt Count Seg Neuts % (Manual) Lymphocytes % (Manual) Seg Neutrophils # Man Lymphocytes # (Manual) Haptoglobin PT INR ABG pH POC ABG pCO2 POC ABG pO2 82.1 L ABG pO2 ABG O2 Saturation ABG Hemoglobin 8.6 L ABG Oxyhemoglobin 93.7 L ABG Sodium ABG Potassium ABG Chloride 113.0 H ABG Glucose 205 H Oxyhemoglobin Carboxyhemoglobin Sodium Potassium Chloride Carbon Dioxide BUN Creatinine Glucose POC Glucose 198 H 213 H Hemoglobin A1c Lactic Acid Calcium Ionized Calcium Phosphorus AST ALT Alkaline Phosphatase Ammonia Lactate Dehydrogenase Total Creatine Kinase Troponin T C-Reactive Protein Total Protein Albumin Triglycerides LDL Cholesterol Direct HDL Cholesterol Arterial Blood Glucose 205 H Arterial Blood Ionized Calcium Urine WBC (Auto) Salicylates Crossmatch 08/05/20 08/05/20 08/05/20 08:48 08:48 10:55 WBC 14.3 H RBC 2.76 L Hgb 8.1 L Hct 24.8 L MCV MCH MCHC RDW 17.4 H Plt Count 138 L Seg Neuts % (Manual) 97.0 H Lymphocytes % (Manual) 1.0 L Seg Neutrophils # Man 13.9 H Lymphocytes # (Manual) 0.1 L Haptoglobin PT INR ABG pH POC ABG pCO2 POC ABG pO2 158.7 H ABG pO2 ABG O2 Saturation ABG Hemoglobin 7.8 L ABG Oxyhemoglobin ABG Sodium ABG Potassium ABG Chloride 114.0 H ABG Glucose 242 H Oxyhemoglobin Carboxyhemoglobin Sodium 146 H Potassium Chloride 110.1 H Carbon Dioxide BUN 56 H Creatinine Glucose 219 H POC Glucose Hemoglobin A1c Lactic Acid Calcium Ionized Calcium Phosphorus AST ALT Alkaline Phosphatase 192 H Ammonia Lactate Dehydrogenase Total Creatine Kinase Troponin T C-Reactive Protein Total Protein 5.8 L Albumin 2.0 L Triglycerides LDL Cholesterol Direct HDL Cholesterol Arterial Blood Glucose 242 H Arterial Blood Ionized Calcium Urine WBC (Auto) Salicylates Crossmatch 08/05/20 08/05/20 08/05/20 11:12 11:30 17:08 WBC RBC Hgb Hct MCV MCH MCHC RDW Plt Count Seg Neuts % (Manual) Lymphocytes % (Manual) Seg Neutrophils # Man Lymphocytes # (Manual) Haptoglobin PT INR ABG pH POC ABG pCO2 POC ABG pO2 147.5 H ABG pO2 ABG O2 Saturation ABG Hemoglobin 7.5 L ABG Oxyhemoglobin 98.1 H ABG Sodium ABG Potassium ABG Chloride 113.0 H ABG Glucose 248 H Oxyhemoglobin Carboxyhemoglobin Sodium Potassium Chloride Carbon Dioxide BUN Creatinine Glucose POC Glucose 238 H 239 H Hemoglobin A1c Lactic Acid Calcium Ionized Calcium Phosphorus AST ALT Alkaline Phosphatase Ammonia Lactate Dehydrogenase Total Creatine Kinase Troponin T C-Reactive Protein Total Protein Albumin Triglycerides LDL Cholesterol Direct HDL Cholesterol Arterial Blood Glucose 248 H Arterial Blood Ionized Calcium Urine WBC (Auto) Salicylates Crossmatch 08/05/20 08/05/20 08/06/20 23:17 Unknown 05:12 WBC RBC Hgb Hct MCV MCH MCHC RDW Plt Count Seg Neuts % (Manual) Lymphocytes % (Manual) Seg Neutrophils # Man Lymphocytes # (Manual) Haptoglobin PT INR ABG pH POC ABG pCO2 POC ABG pO2 ABG pO2 ABG O2 Saturation ABG Hemoglobin ABG Oxyhemoglobin ABG Sodium ABG Potassium ABG Chloride ABG Glucose Oxyhemoglobin Carboxyhemoglobin Sodium Potassium Chloride 109.2 H Carbon Dioxide BUN 51 H Creatinine Glucose 229 H POC Glucose 200 H 145 H Hemoglobin A1c Lactic Acid Calcium Ionized Calcium Phosphorus AST ALT Alkaline Phosphatase Ammonia Lactate Dehydrogenase Total Creatine Kinase Troponin T C-Reactive Protein Total Protein Albumin Triglycerides LDL Cholesterol Direct HDL Cholesterol Arterial Blood Glucose Arterial Blood Ionized Calcium Urine WBC (Auto) Salicylates Crossmatch 08/06/20 08/06/20 08/06/20 05:21 10:00 11:28 WBC RBC Hgb Hct MCV MCH MCHC RDW Plt Count Seg Neuts % (Manual) Lymphocytes % (Manual) Seg Neutrophils # Man Lymphocytes # (Manual) Haptoglobin PT INR ABG pH 7.301 L 7.308 L POC ABG pCO2 49.5 H 49.1 H POC ABG pO2 178.4 H ABG pO2 ABG O2 Saturation ABG Hemoglobin 7.5 L 7.1 L ABG Oxyhemoglobin 98.8 H ABG Sodium ABG Potassium ABG Chloride 112.0 H 112.0 H ABG Glucose 149 H 162 H Oxyhemoglobin Carboxyhemoglobin Sodium Potassium Chloride Carbon Dioxide BUN Creatinine Glucose POC Glucose 158 H Hemoglobin A1c Lactic Acid Calcium Ionized Calcium Phosphorus AST ALT Alkaline Phosphatase Ammonia Lactate Dehydrogenase Total Creatine Kinase Troponin T C-Reactive Protein Total Protein Albumin Triglycerides LDL Cholesterol Direct HDL Cholesterol Arterial Blood Glucose 149 H 162 H Arterial Blood Ionized Calcium Urine WBC (Auto) Salicylates Crossmatch 08/06/20 08/06/20 08/06/20 17:42 23:56 Unknown WBC 13.0 H RBC 2.38 L Hgb 7.1 L Hct 21.5 L MCV MCH MCHC RDW 17.6 H Plt Count Seg Neuts % (Manual) Lymphocytes % (Manual) Seg Neutrophils # Man Lymphocytes # (Manual) Haptoglobin PT INR ABG pH POC ABG pCO2 POC ABG pO2 ABG pO2 ABG O2 Saturation ABG Hemoglobin ABG Oxyhemoglobin ABG Sodium ABG Potassium ABG Chloride ABG Glucose Oxyhemoglobin Carboxyhemoglobin Sodium Potassium Chloride Carbon Dioxide BUN Creatinine Glucose POC Glucose 179 H 259 H Hemoglobin A1c Lactic Acid Calcium Ionized Calcium Phosphorus AST ALT Alkaline Phosphatase Ammonia Lactate Dehydrogenase Total Creatine Kinase Troponin T C-Reactive Protein Total Protein Albumin Triglycerides LDL Cholesterol Direct HDL Cholesterol Arterial Blood Glucose Arterial Blood Ionized Calcium Urine WBC (Auto) Salicylates Crossmatch 08/07/20 08/07/20 08/07/20 04:00 04:05 04:05 WBC RBC 2.32 L Hgb 7.1 L Hct 20.9 L MCV MCH MCHC RDW 17.9 H Plt Count Seg Neuts % (Manual) Lymphocytes % (Manual) Seg Neutrophils # Man Lymphocytes # (Manual) Haptoglobin PT INR ABG pH POC ABG pCO2 POC ABG pO2 150.6 H ABG pO2 ABG O2 Saturation ABG Hemoglobin 8.0 L ABG Oxyhemoglobin 98.4 H ABG Sodium 146.7 H ABG Potassium ABG Chloride 114.0 H ABG Glucose 201 H Oxyhemoglobin Carboxyhemoglobin Sodium 151 H Potassium Chloride 114.3 H Carbon Dioxide BUN 63 H Creatinine Glucose 198 H POC Glucose Hemoglobin A1c Lactic Acid Calcium Ionized Calcium Phosphorus AST 54 H ALT Alkaline Phosphatase 213 H Ammonia Lactate Dehydrogenase Total Creatine Kinase Troponin T C-Reactive Protein Total Protein 6.1 L Albumin 2.0 L Triglycerides LDL Cholesterol Direct HDL Cholesterol Arterial Blood Glucose 201 H Arterial Blood Ionized Calcium Urine WBC (Auto) Salicylates Crossmatch 08/07/20 08/07/20 08/07/20 05:34 11:43 14:30 WBC RBC Hgb Hct MCV MCH MCHC RDW Plt Count Seg Neuts % (Manual) Lymphocytes % (Manual) Seg Neutrophils # Man Lymphocytes # (Manual) Haptoglobin PT INR ABG pH POC ABG pCO2 POC ABG pO2 ABG pO2 62.9 L ABG O2 Saturation 86.7 L ABG Hemoglobin 7.1 L ABG Oxyhemoglobin ABG Sodium ABG Potassium ABG Chloride ABG Glucose Oxyhemoglobin 85.0 L Carboxyhemoglobin Sodium Potassium Chloride Carbon Dioxide BUN Creatinine Glucose POC Glucose 160 H 201 H Hemoglobin A1c Lactic Acid Calcium Ionized Calcium Phosphorus AST ALT Alkaline Phosphatase Ammonia Lactate Dehydrogenase Total Creatine Kinase Troponin T C-Reactive Protein Total Protein Albumin Triglycerides LDL Cholesterol Direct HDL Cholesterol Arterial Blood Glucose Arterial Blood Ionized Calcium Urine WBC (Auto) Salicylates Crossmatch 08/07/20 08/07/20 08/08/20 17:57 23:12 05:38 WBC RBC Hgb Hct MCV MCH MCHC RDW Plt Count Seg Neuts % (Manual) Lymphocytes % (Manual) Seg Neutrophils # Man Lymphocytes # (Manual) Haptoglobin PT INR ABG pH POC ABG pCO2 POC ABG pO2 ABG pO2 ABG O2 Saturation ABG Hemoglobin ABG Oxyhemoglobin ABG Sodium ABG Potassium ABG Chloride ABG Glucose Oxyhemoglobin Carboxyhemoglobin Sodium Potassium Chloride Carbon Dioxide BUN Creatinine Glucose POC Glucose 242 H 246 H 135 H Hemoglobin A1c Lactic Acid Calcium Ionized Calcium Phosphorus AST ALT Alkaline Phosphatase Ammonia Lactate Dehydrogenase Total Creatine Kinase Troponin T C-Reactive Protein Total Protein Albumin Triglycerides LDL Cholesterol Direct HDL Cholesterol Arterial Blood Glucose Arterial Blood Ionized Calcium Urine WBC (Auto) Salicylates Crossmatch 08/08/20 08/08/20 08/08/20 09:49 11:40 17:28 WBC RBC Hgb Hct MCV MCH MCHC RDW Plt Count Seg Neuts % (Manual) Lymphocytes % (Manual) Seg Neutrophils # Man Lymphocytes # (Manual) Haptoglobin PT INR ABG pH POC ABG pCO2 POC ABG pO2 ABG pO2 ABG O2 Saturation ABG Hemoglobin 6.9 L ABG Oxyhemoglobin ABG Sodium 146.1 H ABG Potassium ABG Chloride 114.0 H ABG Glucose 192 H Oxyhemoglobin Carboxyhemoglobin Sodium Potassium Chloride Carbon Dioxide BUN Creatinine Glucose POC Glucose 187 H 175 H Hemoglobin A1c Lactic Acid Calcium Ionized Calcium Phosphorus AST ALT Alkaline Phosphatase Ammonia Lactate Dehydrogenase Total Creatine Kinase Troponin T C-Reactive Protein Total Protein Albumin Triglycerides LDL Cholesterol Direct HDL Cholesterol Arterial Blood Glucose 192 H Arterial Blood Ionized Calcium Urine WBC (Auto) Salicylates Crossmatch 08/09/20 08/09/20 08/09/20 03:41 06:10 11:58 WBC RBC Hgb Hct MCV MCH MCHC RDW Plt Count Seg Neuts % (Manual) Lymphocytes % (Manual) Seg Neutrophils # Man Lymphocytes # (Manual) Haptoglobin PT INR ABG pH POC ABG pCO2 POC ABG pO2 ABG pO2 ABG O2 Saturation ABG Hemoglobin 6.9 L ABG Oxyhemoglobin ABG Sodium 145.8 H ABG Potassium 4.6 H ABG Chloride 113.0 H ABG Glucose 113 H Oxyhemoglobin Carboxyhemoglobin Sodium Potassium Chloride Carbon Dioxide BUN Creatinine Glucose POC Glucose 118 H 124 H Hemoglobin A1c Lactic Acid Calcium Ionized Calcium Phosphorus AST ALT Alkaline Phosphatase Ammonia Lactate Dehydrogenase Total Creatine Kinase Troponin T C-Reactive Protein Total Protein Albumin Triglycerides LDL Cholesterol Direct HDL Cholesterol Arterial Blood Glucose 113 H Arterial Blood Ionized Calcium Urine WBC (Auto) Salicylates Crossmatch 08/09/20 08/09/20 08/09/20 14:05 14:05 17:42 WBC RBC 3.58 L Hgb 10.5 L D Hct 31.6 L D MCV MCH MCHC RDW 17.8 H Plt Count 125 L Seg Neuts % (Manual) Lymphocytes % (Manual) Seg Neutrophils # Man Lymphocytes # (Manual) Haptoglobin PT INR ABG pH POC ABG pCO2 POC ABG pO2 ABG pO2 ABG O2 Saturation ABG Hemoglobin ABG Oxyhemoglobin ABG Sodium ABG Potassium ABG Chloride ABG Glucose Oxyhemoglobin Carboxyhemoglobin Sodium Potassium Chloride 111.2 H Carbon Dioxide BUN 74 H Creatinine Glucose 137 H POC Glucose 139 H Hemoglobin A1c Lactic Acid Calcium Ionized Calcium Phosphorus AST ALT Alkaline Phosphatase Ammonia Lactate Dehydrogenase Total Creatine Kinase Troponin T C-Reactive Protein Total Protein Albumin Triglycerides LDL Cholesterol Direct HDL Cholesterol Arterial Blood Glucose Arterial Blood Ionized Calcium Urine WBC (Auto) Salicylates Crossmatch 08/09/20 08/09/20 08/09/20 21:07 21:25 23:26 WBC RBC Hgb Hct MCV MCH MCHC RDW Plt Count Seg Neuts % (Manual) Lymphocytes % (Manual) Seg Neutrophils # Man Lymphocytes # (Manual) Haptoglobin PT 15.5 H INR 1.17 H ABG pH POC ABG pCO2 POC ABG pO2 ABG pO2 ABG O2 Saturation ABG Hemoglobin ABG Oxyhemoglobin ABG Sodium ABG Potassium ABG Chloride ABG Glucose Oxyhemoglobin Carboxyhemoglobin Sodium Potassium Chloride Carbon Dioxide BUN Creatinine Glucose POC Glucose 156 H 167 H Hemoglobin A1c Lactic Acid Calcium Ionized Calcium Phosphorus AST ALT Alkaline Phosphatase Ammonia Lactate Dehydrogenase Total Creatine Kinase Troponin T C-Reactive Protein Total Protein Albumin Triglycerides LDL Cholesterol Direct HDL Cholesterol Arterial Blood Glucose Arterial Blood Ionized Calcium Urine WBC (Auto) Salicylates Crossmatch 08/10/20 08/10/20 08/10/20 03:04 12:19 14:53 WBC RBC 2.06 L Hgb 6.1 L D Hct 18.6 L* D MCV MCH MCHC RDW 18.3 H Plt Count 137 L Seg Neuts % (Manual) Lymphocytes % (Manual) Seg Neutrophils # Man Lymphocytes # (Manual) Haptoglobin PT INR ABG pH POC ABG pCO2 POC ABG pO2 ABG pO2 ABG O2 Saturation ABG Hemoglobin 6.7 L ABG Oxyhemoglobin ABG Sodium ABG Potassium ABG Chloride 111.0 H ABG Glucose 116 H Oxyhemoglobin Carboxyhemoglobin Sodium Potassium Chloride Carbon Dioxide BUN Creatinine Glucose POC Glucose 57 L Hemoglobin A1c Lactic Acid Calcium Ionized Calcium Phosphorus AST ALT Alkaline Phosphatase Ammonia Lactate Dehydrogenase Total Creatine Kinase Troponin T C-Reactive Protein Total Protein Albumin Triglycerides LDL Cholesterol Direct HDL Cholesterol Arterial Blood Glucose 116 H Arterial Blood Ionized Calcium Urine WBC (Auto) Salicylates Crossmatch 08/10/20 08/10/20 08/10/20 14:53 18:08 23:11 WBC RBC Hgb Hct MCV MCH MCHC RDW Plt Count Seg Neuts % (Manual) Lymphocytes % (Manual) Seg Neutrophils # Man Lymphocytes # (Manual) Haptoglobin PT INR ABG pH POC ABG pCO2 POC ABG pO2 ABG pO2 ABG O2 Saturation ABG Hemoglobin ABG Oxyhemoglobin ABG Sodium ABG Potassium ABG Chloride ABG Glucose Oxyhemoglobin Carboxyhemoglobin Sodium 146 H Potassium Chloride 111.1 H Carbon Dioxide BUN 72 H Creatinine 1.4 H Glucose 158 H POC Glucose 68 L Hemoglobin A1c Lactic Acid Calcium 8.2 L Ionized Calcium Phosphorus AST ALT Alkaline Phosphatase Ammonia Lactate Dehydrogenase Total Creatine Kinase Troponin T C-Reactive Protein Total Protein Albumin Triglycerides LDL Cholesterol Direct HDL Cholesterol Arterial Blood Glucose Arterial Blood Ionized Calcium Urine WBC (Auto) Salicylates Crossmatch See Detail 08/11/20 08/11/20 08/11/20 04:12 05:34 05:36 WBC RBC Hgb Hct MCV MCH MCHC RDW Plt Count Seg Neuts % (Manual) Lymphocytes % (Manual) Seg Neutrophils # Man Lymphocytes # (Manual) Haptoglobin PT INR ABG pH POC ABG pCO2 POC ABG pO2 397.7 H ABG pO2 ABG O2 Saturation ABG Hemoglobin 7.6 L ABG Oxyhemoglobin 98.8 H ABG Sodium ABG Potassium ABG Chloride 113.0 H ABG Glucose 60 L Oxyhemoglobin Carboxyhemoglobin Sodium Potassium Chloride Carbon Dioxide BUN Creatinine Glucose POC Glucose 55 L 51 L Hemoglobin A1c Lactic Acid Calcium Ionized Calcium Phosphorus AST ALT Alkaline Phosphatase Ammonia Lactate Dehydrogenase Total Creatine Kinase Troponin T C-Reactive Protein Total Protein Albumin Triglycerides LDL Cholesterol Direct HDL Cholesterol Arterial Blood Glucose 60 L Arterial Blood Ionized Calcium 4.4 L Urine WBC (Auto) Salicylates Crossmatch 08/11/20 08/11/20 08/11/20 08:40 08:40 10:23 WBC RBC 2.14 L Hgb 6.2 L 6.3 L Hct 18.8 L* 19.0 L* MCV MCH MCHC RDW 17.6 H Plt Count Seg Neuts % (Manual) Lymphocytes % (Manual) Seg Neutrophils # Man Lymphocytes # (Manual) Haptoglobin PT INR ABG pH POC ABG pCO2 POC ABG pO2 ABG pO2 ABG O2 Saturation ABG Hemoglobin ABG Oxyhemoglobin ABG Sodium ABG Potassium ABG Chloride ABG Glucose Oxyhemoglobin Carboxyhemoglobin Sodium 147 H Potassium Chloride 112.3 H Carbon Dioxide BUN 62 H Creatinine 1.5 H Glucose 73 L POC Glucose Hemoglobin A1c Lactic Acid Calcium 7.9 L Ionized Calcium Phosphorus AST ALT Alkaline Phosphatase Ammonia Lactate Dehydrogenase Total Creatine Kinase Troponin T C-Reactive Protein Total Protein Albumin Triglycerides LDL Cholesterol Direct HDL Cholesterol Arterial Blood Glucose Arterial Blood Ionized Calcium Urine WBC (Auto) Salicylates Crossmatch 08/11/20 08/11/20 08/11/20 11:56 17:43 18:40 WBC RBC Hgb Hct MCV MCH MCHC RDW Plt Count Seg Neuts % (Manual) Lymphocytes % (Manual) Seg Neutrophils # Man Lymphocytes # (Manual) Haptoglobin PT 15.7 H INR 1.19 H ABG pH POC ABG pCO2 POC ABG pO2 ABG pO2 ABG O2 Saturation ABG Hemoglobin ABG Oxyhemoglobin ABG Sodium ABG Potassium ABG Chloride ABG Glucose Oxyhemoglobin Carboxyhemoglobin Sodium Potassium Chloride Carbon Dioxide BUN Creatinine Glucose POC Glucose 53 L 113 H Hemoglobin A1c Lactic Acid Calcium Ionized Calcium Phosphorus AST ALT Alkaline Phosphatase Ammonia Lactate Dehydrogenase Total Creatine Kinase Troponin T C-Reactive Protein Total Protein Albumin Triglycerides LDL Cholesterol Direct HDL Cholesterol Arterial Blood Glucose Arterial Blood Ionized Calcium Urine WBC (Auto) Salicylates Crossmatch 08/11/20 08/11/20 08/11/20 18:40 20:10 22:13 WBC RBC Hgb 6.2 L 6.1 L Hct 18.4 L* 18.3 L* MCV MCH MCHC RDW Plt Count Seg Neuts % (Manual) Lymphocytes % (Manual) Seg Neutrophils # Man Lymphocytes # (Manual) Haptoglobin PT INR ABG pH POC ABG pCO2 POC ABG pO2 163.6 H ABG pO2 ABG O2 Saturation ABG Hemoglobin 7.7 L ABG Oxyhemoglobin 98.3 H ABG Sodium ABG Potassium ABG Chloride 112.0 H ABG Glucose 119 H Oxyhemoglobin Carboxyhemoglobin Sodium Potassium Chloride Carbon Dioxide BUN Creatinine Glucose POC Glucose Hemoglobin A1c Lactic Acid Calcium Ionized Calcium Phosphorus AST ALT Alkaline Phosphatase Ammonia Lactate Dehydrogenase Total Creatine Kinase Troponin T C-Reactive Protein Total Protein Albumin Triglycerides LDL Cholesterol Direct HDL Cholesterol Arterial Blood Glucose 119 H Arterial Blood Ionized Calcium 4.4 L Urine WBC (Auto) Salicylates Crossmatch 08/11/20 08/12/20 08/12/20 23:32 04:43 04:43 WBC RBC Hgb Hct MCV MCH MCHC RDW Plt Count Seg Neuts % (Manual) Lymphocytes % (Manual) Seg Neutrophils # Man Lymphocytes # (Manual) Haptoglobin PT INR ABG pH POC ABG pCO2 POC ABG pO2 ABG pO2 ABG O2 Saturation ABG Hemoglobin ABG Oxyhemoglobin ABG Sodium ABG Potassium ABG Chloride ABG Glucose Oxyhemoglobin Carboxyhemoglobin Sodium Potassium Chloride Carbon Dioxide BUN Creatinine Glucose POC Glucose 106 H Hemoglobin A1c Lactic Acid Calcium Ionized Calcium Phosphorus AST 57 H ALT Alkaline Phosphatase 288 H Ammonia Lactate Dehydrogenase 239 H Total Creatine Kinase Troponin T C-Reactive Protein Total Protein 6.0 L Albumin 1.7 L Triglycerides LDL Cholesterol Direct HDL Cholesterol Arterial Blood Glucose Arterial Blood Ionized Calcium Urine WBC (Auto) Salicylates Crossmatch 08/12/20 08/12/20 08/12/20 04:43 04:53 05:07 WBC RBC 3.03 L Hgb 8.5 L Hct 25.6 L D MCV MCH MCHC RDW 18.4 H Plt Count Seg Neuts % (Manual) 88.0 H Lymphocytes % (Manual) 6.0 L Seg Neutrophils # Man Lymphocytes # (Manual) 0.4 L Haptoglobin 420 H PT INR ABG pH POC ABG pCO2 POC ABG pO2 ABG pO2 ABG O2 Saturation ABG Hemoglobin ABG Oxyhemoglobin ABG Sodium ABG Potassium ABG Chloride ABG Glucose Oxyhemoglobin Carboxyhemoglobin Sodium Potassium Chloride Carbon Dioxide BUN Creatinine Glucose POC Glucose 139 H Hemoglobin A1c Lactic Acid Calcium Ionized Calcium Phosphorus AST ALT Alkaline Phosphatase Ammonia Lactate Dehydrogenase Total Creatine Kinase Troponin T C-Reactive Protein Total Protein Albumin Triglycerides LDL Cholesterol Direct HDL Cholesterol Arterial Blood Glucose Arterial Blood Ionized Calcium Urine WBC (Auto) Salicylates Crossmatch 08/12/20 08/12/20 08/12/20 07:55 07:55 11:17 WBC RBC 2.90 L Hgb 8.1 L Hct 24.4 L MCV MCH MCHC RDW 18.9 H Plt Count Seg Neuts % (Manual) Lymphocytes % (Manual) Seg Neutrophils # Man Lymphocytes # (Manual) Haptoglobin PT INR ABG pH POC ABG pCO2 POC ABG pO2 ABG pO2 ABG O2 Saturation ABG Hemoglobin ABG Oxyhemoglobin ABG Sodium ABG Potassium ABG Chloride ABG Glucose Oxyhemoglobin Carboxyhemoglobin Sodium Potassium 3.3 L Chloride 109.8 H Carbon Dioxide BUN 52 H Creatinine Glucose 153 H POC Glucose 150 H Hemoglobin A1c Lactic Acid Calcium 8.1 L Ionized Calcium Phosphorus AST ALT Alkaline Phosphatase Ammonia Lactate Dehydrogenase Total Creatine Kinase Troponin T C-Reactive Protein Total Protein Albumin Triglycerides LDL Cholesterol Direct HDL Cholesterol Arterial Blood Glucose Arterial Blood Ionized Calcium Urine WBC (Auto) Salicylates Crossmatch 08/12/20 08/12/20 08/12/20 13:05 17:29 18:28 WBC RBC Hgb Hct MCV MCH MCHC RDW Plt Count Seg Neuts % (Manual) Lymphocytes % (Manual) Seg Neutrophils # Man Lymphocytes # (Manual) Haptoglobin PT INR ABG pH POC ABG pCO2 POC ABG pO2 ABG pO2 ABG O2 Saturation ABG Hemoglobin ABG Oxyhemoglobin ABG Sodium ABG Potassium ABG Chloride ABG Glucose Oxyhemoglobin Carboxyhemoglobin Sodium Potassium Chloride Carbon Dioxide BUN Creatinine Glucose POC Glucose 143 H 158 H 158 H Hemoglobin A1c Lactic Acid Calcium Ionized Calcium Phosphorus AST ALT Alkaline Phosphatase Ammonia Lactate Dehydrogenase Total Creatine Kinase Troponin T C-Reactive Protein Total Protein Albumin Triglycerides LDL Cholesterol Direct HDL Cholesterol Arterial Blood Glucose Arterial Blood Ionized Calcium Urine WBC (Auto) Salicylates Crossmatch 08/12/20 08/13/20 08/13/20 23:22 05:32 09:58 WBC RBC 2.79 L Hgb 7.9 L Hct 23.5 L MCV MCH MCHC RDW 18.9 H Plt Count Seg Neuts % (Manual) Lymphocytes % (Manual) Seg Neutrophils # Man Lymphocytes # (Manual) Haptoglobin PT INR ABG pH POC ABG pCO2 POC ABG pO2 ABG pO2 ABG O2 Saturation ABG Hemoglobin ABG Oxyhemoglobin ABG Sodium ABG Potassium ABG Chloride ABG Glucose Oxyhemoglobin Carboxyhemoglobin Sodium Potassium Chloride Carbon Dioxide BUN Creatinine Glucose POC Glucose 191 H 131 H Hemoglobin A1c Lactic Acid Calcium Ionized Calcium Phosphorus AST ALT Alkaline Phosphatase Ammonia Lactate Dehydrogenase Total Creatine Kinase Troponin T C-Reactive Protein Total Protein Albumin Triglycerides LDL Cholesterol Direct HDL Cholesterol Arterial Blood Glucose Arterial Blood Ionized Calcium Urine WBC (Auto) Salicylates Crossmatch 08/13/20 08/13/20 08/13/20 09:58 12:07 12:10 WBC RBC Hgb Hct MCV MCH MCHC RDW Plt Count Seg Neuts % (Manual) Lymphocytes % (Manual) Seg Neutrophils # Man Lymphocytes # (Manual) Haptoglobin PT INR ABG pH POC ABG pCO2 POC ABG pO2 ABG pO2 ABG O2 Saturation ABG Hemoglobin ABG Oxyhemoglobin ABG Sodium ABG Potassium ABG Chloride ABG Glucose Oxyhemoglobin Carboxyhemoglobin Sodium Potassium 3.5 L Chloride 109.1 H Carbon Dioxide BUN 51 H Creatinine Glucose 168 H POC Glucose 142 H 159 H Hemoglobin A1c Lactic Acid Calcium 8.0 L Ionized Calcium Phosphorus AST ALT Alkaline Phosphatase Ammonia Lactate Dehydrogenase Total Creatine Kinase Troponin T C-Reactive Protein Total Protein Albumin Triglycerides LDL Cholesterol Direct HDL Cholesterol Arterial Blood Glucose Arterial Blood Ionized Calcium Urine WBC (Auto) Salicylates Crossmatch 08/13/20 08/13/20 08/14/20 17:17 23:17 05:10 WBC RBC Hgb Hct MCV MCH MCHC RDW Plt Count Seg Neuts % (Manual) Lymphocytes % (Manual) Seg Neutrophils # Man Lymphocytes # (Manual) Haptoglobin PT INR ABG pH POC ABG pCO2 POC ABG pO2 ABG pO2 ABG O2 Saturation ABG Hemoglobin ABG Oxyhemoglobin ABG Sodium ABG Potassium ABG Chloride ABG Glucose Oxyhemoglobin Carboxyhemoglobin Sodium Potassium Chloride Carbon Dioxide BUN Creatinine Glucose POC Glucose 137 H 157 H 153 H Hemoglobin A1c Lactic Acid Calcium Ionized Calcium Phosphorus AST ALT Alkaline Phosphatase Ammonia Lactate Dehydrogenase Total Creatine Kinase Troponin T C-Reactive Protein Total Protein Albumin Triglycerides LDL Cholesterol Direct HDL Cholesterol Arterial Blood Glucose Arterial Blood Ionized Calcium Urine WBC (Auto) Salicylates Crossmatch 08/14/20 08/14/20 08/14/20 11:35 12:05 13:01 WBC RBC 2.73 L Hgb 7.7 L Hct 22.6 L MCV 83 L MCH MCHC RDW 18.4 H Plt Count Seg Neuts % (Manual) Lymphocytes % (Manual) Seg Neutrophils # Man Lymphocytes # (Manual) Haptoglobin PT INR ABG pH POC ABG pCO2 POC ABG pO2 ABG pO2 75.1 L ABG O2 Saturation ABG Hemoglobin 7.7 L ABG Oxyhemoglobin ABG Sodium ABG Potassium ABG Chloride ABG Glucose Oxyhemoglobin 94.8 L Carboxyhemoglobin Sodium Potassium Chloride Carbon Dioxide BUN Creatinine Glucose POC Glucose 175 H Hemoglobin A1c Lactic Acid Calcium Ionized Calcium Phosphorus AST ALT Alkaline Phosphatase Ammonia Lactate Dehydrogenase Total Creatine Kinase Troponin T C-Reactive Protein Total Protein Albumin Triglycerides LDL Cholesterol Direct HDL Cholesterol Arterial Blood Glucose Arterial Blood Ionized Calcium Urine WBC (Auto) Salicylates Crossmatch 08/14/20 08/14/20 08/14/20 13:01 17:55 23:25 WBC RBC Hgb Hct MCV MCH MCHC RDW Plt Count Seg Neuts % (Manual) Lymphocytes % (Manual) Seg Neutrophils # Man Lymphocytes # (Manual) Haptoglobin PT INR ABG pH POC ABG pCO2 POC ABG pO2 ABG pO2 ABG O2 Saturation ABG Hemoglobin ABG Oxyhemoglobin ABG Sodium ABG Potassium ABG Chloride ABG Glucose Oxyhemoglobin Carboxyhemoglobin Sodium Potassium Chloride 107.3 H Carbon Dioxide BUN 49 H Creatinine Glucose 191 H POC Glucose 178 H 150 H Hemoglobin A1c Lactic Acid Calcium 7.9 L Ionized Calcium Phosphorus AST ALT Alkaline Phosphatase Ammonia Lactate Dehydrogenase Total Creatine Kinase Troponin T C-Reactive Protein Total Protein Albumin Triglycerides LDL Cholesterol Direct HDL Cholesterol Arterial Blood Glucose Arterial Blood Ionized Calcium Urine WBC (Auto) Salicylates Crossmatch 08/15/20 08/15/20 08/15/20 04:04 10:28 10:38 WBC RBC 2.94 L Hgb 8.3 L Hct 24.6 L MCV MCH MCHC RDW 18.7 H Plt Count 112 L Seg Neuts % (Manual) Lymphocytes % (Manual) Seg Neutrophils # Man Lymphocytes # (Manual) Haptoglobin PT INR ABG pH POC ABG pCO2 POC ABG pO2 ABG pO2 ABG O2 Saturation ABG Hemoglobin ABG Oxyhemoglobin ABG Sodium ABG Potassium ABG Chloride ABG Glucose Oxyhemoglobin Carboxyhemoglobin Sodium Potassium Chloride 107.4 H Carbon Dioxide BUN 47 H Creatinine Glucose 51 L POC Glucose 44 L Hemoglobin A1c Lactic Acid Calcium 8.3 L Ionized Calcium Phosphorus AST ALT Alkaline Phosphatase Ammonia Lactate Dehydrogenase Total Creatine Kinase Troponin T C-Reactive Protein Total Protein Albumin Triglycerides LDL Cholesterol Direct HDL Cholesterol Arterial Blood Glucose Arterial Blood Ionized Calcium Urine WBC (Auto) Salicylates Crossmatch 08/15/20 08/15/20 08/15/20 17:31 23:15 Unknown WBC RBC Hgb Hct MCV MCH MCHC RDW Plt Count Seg Neuts % (Manual) Lymphocytes % (Manual) Seg Neutrophils # Man Lymphocytes # (Manual) Haptoglobin PT INR ABG pH POC ABG pCO2 POC ABG pO2 ABG pO2 77.7 L ABG O2 Saturation ABG Hemoglobin 9.2 L ABG Oxyhemoglobin ABG Sodium ABG Potassium ABG Chloride ABG Glucose Oxyhemoglobin 94.9 L Carboxyhemoglobin Sodium Potassium Chloride Carbon Dioxide BUN Creatinine Glucose POC Glucose 64 L 114 H Hemoglobin A1c Lactic Acid Calcium Ionized Calcium Phosphorus AST ALT Alkaline Phosphatase Ammonia Lactate Dehydrogenase Total Creatine Kinase Troponin T C-Reactive Protein Total Protein Albumin Triglycerides LDL Cholesterol Direct HDL Cholesterol Arterial Blood Glucose Arterial Blood Ionized Calcium Urine WBC (Auto) Salicylates Crossmatch 08/16/20 08/16/20 08/16/20 05:09 08:02 08:02 WBC 4.1 L RBC 2.70 L Hgb 7.6 L Hct 22.9 L MCV MCH MCHC RDW 18.5 H Plt Count Seg Neuts % (Manual) Lymphocytes % (Manual) Seg Neutrophils # Man Lymphocytes # (Manual) Haptoglobin PT INR ABG pH POC ABG pCO2 POC ABG pO2 ABG pO2 ABG O2 Saturation ABG Hemoglobin ABG Oxyhemoglobin ABG Sodium ABG Potassium ABG Chloride ABG Glucose Oxyhemoglobin Carboxyhemoglobin Sodium Potassium Chloride 110.1 H Carbon Dioxide BUN 45 H Creatinine Glucose 187 H POC Glucose 204 H Hemoglobin A1c Lactic Acid Calcium 7.7 L Ionized Calcium Phosphorus AST ALT Alkaline Phosphatase Ammonia Lactate Dehydrogenase Total Creatine Kinase Troponin T C-Reactive Protein Total Protein Albumin Triglycerides LDL Cholesterol Direct HDL Cholesterol Arterial Blood Glucose Arterial Blood Ionized Calcium Urine WBC (Auto) Salicylates Crossmatch 08/16/20 08/16/20 08/17/20 12:28 17:21 00:20 WBC RBC Hgb Hct MCV MCH MCHC RDW Plt Count Seg Neuts % (Manual) Lymphocytes % (Manual) Seg Neutrophils # Man Lymphocytes # (Manual) Haptoglobin PT INR ABG pH POC ABG pCO2 POC ABG pO2 ABG pO2 ABG O2 Saturation ABG Hemoglobin ABG Oxyhemoglobin ABG Sodium ABG Potassium ABG Chloride ABG Glucose Oxyhemoglobin Carboxyhemoglobin Sodium Potassium Chloride Carbon Dioxide BUN Creatinine Glucose POC Glucose 126 H 107 H 194 H Hemoglobin A1c Lactic Acid Calcium Ionized Calcium Phosphorus AST ALT Alkaline Phosphatase Ammonia Lactate Dehydrogenase Total Creatine Kinase Troponin T C-Reactive Protein Total Protein Albumin Triglycerides LDL Cholesterol Direct HDL Cholesterol Arterial Blood Glucose Arterial Blood Ionized Calcium Urine WBC (Auto) Salicylates Crossmatch 08/17/20 08/17/20 08/17/20 06:02 09:40 09:40 WBC RBC 2.78 L Hgb 7.9 L Hct 24.1 L MCV MCH MCHC RDW 19.3 H Plt Count Seg Neuts % (Manual) Lymphocytes % (Manual) Seg Neutrophils # Man Lymphocytes # (Manual) Haptoglobin PT INR ABG pH POC ABG pCO2 POC ABG pO2 ABG pO2 ABG O2 Saturation ABG Hemoglobin ABG Oxyhemoglobin ABG Sodium ABG Potassium ABG Chloride ABG Glucose Oxyhemoglobin Carboxyhemoglobin Sodium Potassium Chloride 107.5 H Carbon Dioxide BUN 42 H Creatinine Glucose 205 H POC Glucose 199 H Hemoglobin A1c Lactic Acid Calcium Ionized Calcium Phosphorus AST 69 H ALT 93 H Alkaline Phosphatase 556 H Ammonia Lactate Dehydrogenase Total Creatine Kinase Troponin T C-Reactive Protein Total Protein 6.2 L Albumin 1.9 L Triglycerides LDL Cholesterol Direct HDL Cholesterol Arterial Blood Glucose Arterial Blood Ionized Calcium Urine WBC (Auto) Salicylates Crossmatch 08/17/20 08/17/20 08/17/20 11:51 12:54 16:50 WBC RBC Hgb Hct MCV MCH MCHC RDW Plt Count Seg Neuts % (Manual) Lymphocytes % (Manual) Seg Neutrophils # Man Lymphocytes # (Manual) Haptoglobin PT INR ABG pH 7.473 H POC ABG pCO2 POC ABG pO2 81.2 L ABG pO2 ABG O2 Saturation ABG Hemoglobin 7.7 L ABG Oxyhemoglobin ABG Sodium ABG Potassium ABG Chloride 110.0 H ABG Glucose 228 H Oxyhemoglobin Carboxyhemoglobin Sodium Potassium Chloride Carbon Dioxide BUN Creatinine Glucose POC Glucose 204 H 188 H Hemoglobin A1c Lactic Acid Calcium Ionized Calcium Phosphorus AST ALT Alkaline Phosphatase Ammonia Lactate Dehydrogenase Total Creatine Kinase Troponin T C-Reactive Protein Total Protein Albumin Triglycerides LDL Cholesterol Direct HDL Cholesterol Arterial Blood Glucose 228 H Arterial Blood Ionized Calcium Urine WBC (Auto) Salicylates Crossmatch 08/17/20 08/18/20 08/18/20 23:07 05:00 05:12 WBC RBC Hgb Hct MCV MCH MCHC RDW Plt Count Seg Neuts % (Manual) Lymphocytes % (Manual) Seg Neutrophils # Man Lymphocytes # (Manual) Haptoglobin PT INR ABG pH 7.480 H POC ABG pCO2 POC ABG pO2 ABG pO2 ABG O2 Saturation ABG Hemoglobin 7.9 L ABG Oxyhemoglobin ABG Sodium ABG Potassium ABG Chloride 111.0 H ABG Glucose 137 H Oxyhemoglobin Carboxyhemoglobin Sodium Potassium Chloride Carbon Dioxide BUN Creatinine Glucose POC Glucose 187 H 118 H Hemoglobin A1c Lactic Acid Calcium Ionized Calcium Phosphorus AST ALT Alkaline Phosphatase Ammonia Lactate Dehydrogenase Total Creatine Kinase Troponin T C-Reactive Protein Total Protein Albumin Triglycerides LDL Cholesterol Direct HDL Cholesterol Arterial Blood Glucose 137 H Arterial Blood Ionized Calcium 4.5 L Urine WBC (Auto) Salicylates Crossmatch 08/18/20 08/18/20 08/18/20 06:46 06:46 08:03 WBC RBC 3.37 L Hgb 9.5 L Hct 29.3 L MCV MCH MCHC RDW 19.3 H Plt Count Seg Neuts % (Manual) Lymphocytes % (Manual) Seg Neutrophils # Man Lymphocytes # (Manual) Haptoglobin PT INR ABG pH POC ABG pCO2 POC ABG pO2 ABG pO2 ABG O2 Saturation ABG Hemoglobin ABG Oxyhemoglobin ABG Sodium ABG Potassium ABG Chloride ABG Glucose Oxyhemoglobin Carboxyhemoglobin Sodium Potassium Chloride 108.2 H Carbon Dioxide BUN 41 H Creatinine Glucose 120 H POC Glucose 111 H Hemoglobin A1c Lactic Acid Calcium Ionized Calcium Phosphorus AST 95 H ALT 122 H Alkaline Phosphatase 738 H Ammonia Lactate Dehydrogenase Total Creatine Kinase Troponin T C-Reactive Protein Total Protein Albumin 1.8 L Triglycerides LDL Cholesterol Direct HDL Cholesterol Arterial Blood Glucose Arterial Blood Ionized Calcium Urine WBC (Auto) Salicylates Crossmatch 08/18/20 08/18/20 08/18/20 11:21 17:47 23:19 WBC RBC Hgb Hct MCV MCH MCHC RDW Plt Count Seg Neuts % (Manual) Lymphocytes % (Manual) Seg Neutrophils # Man Lymphocytes # (Manual) Haptoglobin PT INR ABG pH POC ABG pCO2 POC ABG pO2 ABG pO2 ABG O2 Saturation ABG Hemoglobin ABG Oxyhemoglobin ABG Sodium ABG Potassium ABG Chloride ABG Glucose Oxyhemoglobin Carboxyhemoglobin Sodium Potassium Chloride Carbon Dioxide BUN Creatinine Glucose POC Glucose 151 H 178 H 209 H Hemoglobin A1c Lactic Acid Calcium Ionized Calcium Phosphorus AST ALT Alkaline Phosphatase Ammonia Lactate Dehydrogenase Total Creatine Kinase Troponin T C-Reactive Protein Total Protein Albumin Triglycerides LDL Cholesterol Direct HDL Cholesterol Arterial Blood Glucose Arterial Blood Ionized Calcium Urine WBC (Auto) Salicylates Crossmatch 08/19/20 08/19/20 08/19/20 05:31 09:56 12:16 WBC RBC Hgb Hct MCV MCH MCHC RDW Plt Count Seg Neuts % (Manual) Lymphocytes % (Manual) Seg Neutrophils # Man Lymphocytes # (Manual) Haptoglobin PT INR ABG pH POC ABG pCO2 POC ABG pO2 ABG pO2 ABG O2 Saturation ABG Hemoglobin ABG Oxyhemoglobin ABG Sodium ABG Potassium ABG Chloride ABG Glucose Oxyhemoglobin Carboxyhemoglobin Sodium Potassium Chloride Carbon Dioxide BUN 43 H Creatinine Glucose 241 H POC Glucose 211 H 241 H Hemoglobin A1c Lactic Acid Calcium 7.9 L Ionized Calcium Phosphorus AST 77 H ALT 114 H Alkaline Phosphatase 621 H Ammonia Lactate Dehydrogenase Total Creatine Kinase Troponin T C-Reactive Protein Total Protein 6.0 L Albumin 2.0 L Triglycerides LDL Cholesterol Direct HDL Cholesterol Arterial Blood Glucose Arterial Blood Ionized Calcium Urine WBC (Auto) Salicylates Crossmatch 08/19/20 08/19/20 08/19/20 14:23 14:25 17:03 WBC RBC Hgb Hct MCV MCH MCHC RDW Plt Count Seg Neuts % (Manual) Lymphocytes % (Manual) Seg Neutrophils # Man Lymphocytes # (Manual) Haptoglobin PT INR ABG pH POC ABG pCO2 POC ABG pO2 ABG pO2 ABG O2 Saturation ABG Hemoglobin ABG Oxyhemoglobin ABG Sodium ABG Potassium ABG Chloride ABG Glucose Oxyhemoglobin Carboxyhemoglobin Sodium Potassium Chloride Carbon Dioxide BUN Creatinine Glucose POC Glucose 201 H Hemoglobin A1c Lactic Acid Calcium Ionized Calcium Phosphorus AST ALT Alkaline Phosphatase Ammonia Lactate Dehydrogenase Total Creatine Kinase Troponin T C-Reactive Protein 9.60 H Total Protein Albumin Triglycerides LDL Cholesterol Direct HDL Cholesterol Arterial Blood Glucose Arterial Blood Ionized Calcium Urine WBC (Auto) 128.0 H Salicylates Crossmatch 08/19/20 08/20/20 08/20/20 23:26 05:19 12:14 WBC RBC Hgb Hct MCV MCH MCHC RDW Plt Count Seg Neuts % (Manual) Lymphocytes % (Manual) Seg Neutrophils # Man Lymphocytes # (Manual) Haptoglobin PT INR ABG pH POC ABG pCO2 POC ABG pO2 ABG pO2 ABG O2 Saturation ABG Hemoglobin ABG Oxyhemoglobin ABG Sodium ABG Potassium ABG Chloride ABG Glucose Oxyhemoglobin Carboxyhemoglobin Sodium Potassium Chloride Carbon Dioxide BUN Creatinine Glucose POC Glucose 221 H 211 H 207 H Hemoglobin A1c Lactic Acid Calcium Ionized Calcium Phosphorus AST ALT Alkaline Phosphatase Ammonia Lactate Dehydrogenase Total Creatine Kinase Troponin T C-Reactive Protein Total Protein Albumin Triglycerides LDL Cholesterol Direct HDL Cholesterol Arterial Blood Glucose Arterial Blood Ionized Calcium Urine WBC (Auto) Salicylates Crossmatch 08/20/20 08/20/20 08/20/20 14:10 14:10 17:50 WBC RBC 2.82 L Hgb 8.1 L Hct 23.9 L MCV MCH MCHC RDW 18.7 H Plt Count Seg Neuts % (Manual) Lymphocytes % (Manual) Seg Neutrophils # Man Lymphocytes # (Manual) Haptoglobin PT INR ABG pH POC ABG pCO2 POC ABG pO2 ABG pO2 ABG O2 Saturation ABG Hemoglobin ABG Oxyhemoglobin ABG Sodium ABG Potassium ABG Chloride ABG Glucose Oxyhemoglobin Carboxyhemoglobin Sodium Potassium Chloride Carbon Dioxide BUN 41 H Creatinine 0.7 L Glucose 236 H POC Glucose 224 H Hemoglobin A1c Lactic Acid Calcium 8.1 L Ionized Calcium Phosphorus AST 119 H ALT 138 H Alkaline Phosphatase 664 H Ammonia Lactate Dehydrogenase Total Creatine Kinase Troponin T C-Reactive Protein Total Protein Albumin 2.1 L Triglycerides LDL Cholesterol Direct HDL Cholesterol Arterial Blood Glucose Arterial Blood Ionized Calcium Urine WBC (Auto) Salicylates Crossmatch 08/21/20 08/21/20 08/21/20 00:32 06:02 11:20 WBC RBC Hgb Hct MCV MCH MCHC RDW Plt Count Seg Neuts % (Manual) Lymphocytes % (Manual) Seg Neutrophils # Man Lymphocytes # (Manual) Haptoglobin PT INR ABG pH POC ABG pCO2 POC ABG pO2 ABG pO2 ABG O2 Saturation ABG Hemoglobin ABG Oxyhemoglobin ABG Sodium ABG Potassium ABG Chloride ABG Glucose Oxyhemoglobin Carboxyhemoglobin Sodium Potassium Chloride Carbon Dioxide BUN Creatinine Glucose POC Glucose 214 H 212 H 207 H Hemoglobin A1c Lactic Acid Calcium Ionized Calcium Phosphorus AST ALT Alkaline Phosphatase Ammonia Lactate Dehydrogenase Total Creatine Kinase Troponin T C-Reactive Protein Total Protein Albumin Triglycerides LDL Cholesterol Direct HDL Cholesterol Arterial Blood Glucose Arterial Blood Ionized Calcium Urine WBC (Auto) Salicylates Crossmatch 08/21/20 08/21/20 08/22/20 18:07 23:20 05:11 WBC RBC Hgb Hct MCV MCH MCHC RDW Plt Count Seg Neuts % (Manual) Lymphocytes % (Manual) Seg Neutrophils # Man Lymphocytes # (Manual) Haptoglobin PT INR ABG pH POC ABG pCO2 POC ABG pO2 ABG pO2 ABG O2 Saturation ABG Hemoglobin ABG Oxyhemoglobin ABG Sodium ABG Potassium ABG Chloride ABG Glucose Oxyhemoglobin Carboxyhemoglobin Sodium Potassium Chloride Carbon Dioxide BUN Creatinine Glucose POC Glucose 204 H 184 H 183 H Hemoglobin A1c Lactic Acid Calcium Ionized Calcium Phosphorus AST ALT Alkaline Phosphatase Ammonia Lactate Dehydrogenase Total Creatine Kinase Troponin T C-Reactive Protein Total Protein Albumin Triglycerides LDL Cholesterol Direct HDL Cholesterol Arterial Blood Glucose Arterial Blood Ionized Calcium Urine WBC (Auto) Salicylates Crossmatch 08/22/20 09:21 WBC RBC Hgb Hct MCV MCH MCHC RDW Plt Count Seg Neuts % (Manual) Lymphocytes % (Manual) Seg Neutrophils # Man Lymphocytes # (Manual) Haptoglobin PT INR ABG pH POC ABG pCO2 POC ABG pO2 ABG pO2 ABG O2 Saturation ABG Hemoglobin ABG Oxyhemoglobin ABG Sodium ABG Potassium ABG Chloride ABG Glucose Oxyhemoglobin Carboxyhemoglobin Sodium Potassium Chloride Carbon Dioxide BUN Creatinine Glucose POC Glucose 197 H Hemoglobin A1c Lactic Acid Calcium Ionized Calcium Phosphorus AST ALT Alkaline Phosphatase Ammonia Lactate Dehydrogenase Total Creatine Kinase Troponin T C-Reactive Protein Total Protein Albumin Triglycerides LDL Cholesterol Direct HDL Cholesterol Arterial Blood Glucose Arterial Blood Ionized Calcium Urine WBC (Auto) Salicylates Crossmatch Chest x-ray: other (none today) Allied health notes reviewed: nursing
[2020-08-22] MEDS: MICAFUNGIN 100 MG in SODIUM CHLORIDE 0.9% 100 ML IV SCH (12:56)
--- NOTE | 2020-08-22 13:56 | Progress Note ---
Assessment and Plan Cultures: 07/28/2020 blood culture: C albicans, later addended to C parapsilosis 07/28/2020 urine culture: No growth COVID PCR: negative 07/31/2020 blood culture: Coag negative staph in 1 of 4 bottles (contaminant) 08/02/2020 blood culture: No growth 08/06/2020 Resp culture: normal resp hawk 08/06/2020 BAL AFB stain: negative 08/06/2020 BAL fungal culture: stain positive, culture in process. 08/16/2020 pleural fluid: 425 WBC, 3000 RBC. Pending 08/19/2020 blood cultures pending A/P: 69-[facility]-old [place] [facility] with quadriplegia, spinal cord injury, was brought in due to fever and sepsis: #Septic shock: Initially resolved likely due to candidemia +/- pneumonia. New fever 08/18 ? Likely secondary to CAUTI. #Candidemia: Unclear source. ?IV line. Transthoracic echo without vegetation. Repeat blood culture no growth. Completed fluconazole course for Jennyfer albicans. Dr Simmons reviewed the scanned lab section on 08/17/2020 and noted that blood culture done on 07/28/2020 was identified as Jennyfer parapsilosis resistant to fluconazole. In the microbiology section, it continues to be listed as Jennyfer albicans which is typically susceptible to fluconazole. Lab did not notify us about the error or addended report. Considering this discrepancy, best to treat with IV micafungin for 14 days. D/W pharmacy. #Pneumonia: CT chest showed patchy airspace disease suggestive of possible aspiration. Chest x-ray with left lung whiteout, got bronch with suctioning of mucous plug, cultures with normal resp hawk. Treated with abx. Repeat CXR increased in pleuroparenchimal opacities. #B/L pleural effusions: s/p thoracentesis on 08/16/2020, about 800 cc of clear straw colored fluid drained. #UTI with chronic indwelling catheter: s/p abx. Repeat urinalysis 08/19/2020 with large pyuria ?CAUTI #Acute hypoxic respiratory failure: On mechanical ventilation via trach. Noted some desaturation overnight on the vent Fio2 45%, p8 #Transaminitis: Improving.RUQ US no GB stone or dilation #Sacral decubitus ulcer: Continue wound care, offloading as possible Recs: -Cefepime 2g IV q12h for 5 days, stop date in place. -IV micafungin 100 mg daily ending 08/31/2020 -S/p trach/PEG -Monitor mentation Omkar Cabrera MD [facility] ([facility]) O: [phone] F: [phone] Subjective Date of service: 08/22/20 Principal diagnosis: Ac. encephalopathy; Ac. hypoxemic resp failure; Septic Shock; PNA; UTI; JEFFERSON Interval history: Afebrile, no new complaints. Remains in the ICU. Objective - Exam Narrative Exam: General appearance: Sedated on the ventilator via trach Eyes: anicteric sclerae, moist conjunctivae HENT: Normocephalic, Atraumatic; normal external ears Neck: Trach Lungs: Bilateral loud rhonchi CV: RRR no murmur Abdomen: Soft, non-tender PEG in place Extremities: Bilateral leg edema, bilateral hands edema Skin: No rash. Psych: Sedated Neuro: sedated Brennan catheter in place - Constitutional Vitals: Vital Signs Temp Pulse Resp BP Pulse Ox 98.7 F 77 25 H 161/84 98 08/22/20 12:00 08/22/20 12:14 08/22/20 12:00 08/22/20 12:14 08/22/20 12:14 Temperature -Last 24 Hours Temperature 98.7 F Temperature 98.5 F Temperature 98.0 F Temperature 98.7 F Temperature 98.2 F Temperature 98.9 F - Labs CBC & Chem 7: 08/20/20 14:10 08/20/20 14:10 Labs: Abnormal lab results 08/21/20 08/21/20 08/22/20 Range/Units 18:07 23:20 05:11 POC Glucose 204 H 184 H 183 H (70-105) mg/dL 08/22/20 08/22/20 Range/Units 09:21 12:54 POC Glucose 197 H 181 H (70-105) mg/dL
[2020-08-22] MEDS: VANCOMYCIN 1,500 MG in SODIUM CHLORIDE 0.9% 500 ML 500 ML IV SCH (15:23)
[2020-08-23] MEDS: FREE WATER PO SCH ×4 (02:16→13:18)
[2020-08-23] MEDS: INSULIN LISPRO 100 UNIT/ML SUB-Q SCH ×2 (06:15→13:18)
[2020-08-23] MEDS: hydrALAZINE 10 MG TAB PO SCH ×2 (06:17→13:43)
--- NOTE | 2020-08-23 09:31 | Progress Note ---
Assessment and Plan - Patient Problems (1) Bradycardia Current Visit: Yes Status: Acute Plan to address problem: No further bradycardia. An echocardiogram this presentation showed well-preserved left ventricular systolic function with ejection fraction 50 to 55%. Supportive cardiac management. Subjective Date of service: 08/23/20 Principal diagnosis: Ac. encephalopathy; Ac. hypoxemic resp failure; Septic Shock; PNA; UTI; JEFFERSON Interval history: Patient is on mechanical ventilation via tracheostomy. Stable sinus rhythm on telemetry monitoring. Objective Vital Signs Temp Pulse Pulse Resp BP Pulse Ox Pulse Ox 08/23/20 08:20 99 08/23/20 08:00 97.6 F 71 28 H 156/74 99 08/23/20 07:47 75 20 156/76 99 08/23/20 07:00 67 20 156/74 100 08/23/20 06:17 70 159/80 08/23/20 06:05 98 08/23/20 06:00 78 23 162/75 97 08/23/20 05:00 69 19 162/75 98 08/23/20 04:00 72 15 155/80 98 08/23/20 03:57 74 159/82 98 08/23/20 03:34 97.6 F 08/23/20 03:00 73 22 155/80 99 08/23/20 02:00 76 25 H 166/77 99 08/23/20 01:00 72 23 164/82 99 08/23/20 00:07 73 156/82 99 08/23/20 00:00 68 19 156/82 98 08/22/20 23:48 77 08/22/20 23:46 75 19 156/82 99 08/22/20 23:39 97.0 F L 08/22/20 23:00 77 23 158/80 99 08/22/20 22:00 77 23 170/83 98 08/22/20 21:13 83 160/82 08/22/20 21:08 78 163/82 08/22/20 21:00 77 21 163/82 99 08/22/20 20:00 82 21 151/78 99 08/22/20 19:48 97.3 F L 08/22/20 19:00 75 22 158/81 99 08/22/20 18:00 70 18 158/81 98 08/22/20 17:00 70 19 176/84 99 08/22/20 16:00 98.8 F 69 70 22 162/76 99 98 08/22/20 15:00 70 19 162/76 99 08/22/20 14:00 73 22 153/74 99 08/22/20 13:00 70 15 155/76 98 08/22/20 12:14 77 161/84 98 08/22/20 12:00 98.7 F 74 70 19 155/76 97 08/22/20 11:59 74 16 161/84 99 08/22/20 11:00 72 22 160/79 99 08/22/20 10:00 74 18 161/84 99 - Physical Examination General: Other (On the vent, via tracheostomy) HEENT: Positive: Normocephaly Neck: Positive: Other (tracheostomy in place) Cardiac: Positive: Reg Rate and Rhythm Neuro: Positive: Other (On the vent, via tracheostomy; History of quadriplegia) - Allied health notes Allied health notes reviewed: nursing
[2020-08-23] MEDS: ENOXAPARIN 40 MG/0.4 ML INJ SUB-Q SCH (09:37)
[2020-08-23] MEDS: SENNOSIDES/DOCUSATE SODIUM 8.6/50 MG TAB FEEDTUBE SCH (09:37)
[2020-08-23] MEDS: METOPROLOL TARTRATE 50 MG TAB PO SCH (09:37)
[2020-08-23] MEDS: FAMOTIDINE 20 MG TAB PO SCH (09:37)
[2020-08-23] MEDS: ASCORBIC ACID 500 MG TAB PO SCH (09:37)
[2020-08-23] MEDS: CEFEPIME/NS 2 GM/100 ML 2 GM/100 ML BAG IV SCH (09:38)
[2020-08-23] MEDS: INSULIN GLARGINE 100 UNITS/ML SUB-Q SCH (09:38)
[2020-08-23] MEDS: ZINC SULFATE 220 MG CAP PO SCH (09:38)
[2020-08-23] MEDS: amLODIPine 10 MG TAB PO SCH (09:38)
[2020-08-23] MEDS: GLYCOPYRROLATE 2 MG TAB PO SCH ×2 (09:40→13:17)
--- NOTE | 2020-08-23 11:18 | Progress Note ---
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 % 08/16/20 15:35 Fluid Lymphocytes 20.0 % 08/16/20 15:35 Fluid Monocytes 1.0 % 08/16/20 15:35 Fluid Eosinophils 1.0 % 08/16/20 15:35 Nasal Screen MRSA (PCR) Negative (Negative) 08/19/20 14:25 Salicylates < 0.3 mg/dL (2.8-20.0) L 07/28/20 09:44 Plasma/Serum Alcohol < 0.01 % (0-0.07) 07/28/20 09:44 Heparin-induced Plt Ab Negative (Negative) 08/01/20 23:40 UF Heparin High Dose 0 % Release 08/01/20 23:40 DEISY UFH Low Dose 0.1 0 % Release 08/01/20 23:40 DEISY UFH Low Dose 0.5 0 % Release 08/01/20 23:40 Coronavirus (PCR) Negative (Negative) 07/29/20 09:15 AFB Identification 08/06/20 11:55 Fungal Id Prelim Positive 08/06/20 11:55 Blood Type O POSITIVE 08/16/20 15:30 Antibody Screen Negative 08/16/20 15:30 Crossmatch See Detail 08/10/20 18:08 Ashley/IV: Voiding Method Indwelling Catheter Active Medications - Current Medications Current Medications: Generic Name Dose Route Start Last Admin Trade Name Freq PRN Reason Stop Dose Admin Acetaminophen 650 mg 07/28/20 14:27 08/08/20 21:50 Acetaminophen 325 Mg Tab PO 650 mg Q6H PRN Administration Pain, Mild (1-3) Albuterol 2.5 mg 07/28/20 14:27 08/05/20 14:27 Albuterol 2.5 Mg/3 Ml Nebu IH 2.5 mg Q3H PRN Administration Shortness Of Breath Amlodipine Besylate 10 mg 08/15/20 10:00 08/23/20 09:38 Amlodipine 10 Mg Tab PO 10 mg QDAY [place] Administration Lipase/Protease/Amylase 1 each 07/29/20 09:55 Lipase 10,500/Protease 25,000/Amylase 43,750 (Units) Dr Velasquez FEEDTUBE PRN PRN For Clogged Feeding Tube Ascorbic Acid 500 mg 08/01/20 22:00 08/23/20 09:37 Ascorbic Acid 500 Mg Tab PO 500 mg BID [place] Administration Bisacodyl 10 mg 08/16/20 14:28 Bisacodyl 10 Mg Rect Supp TX QDAY PRN Constipation Dextrose 50 ml 07/29/20 15:46 08/15/20 10:45 Dextrose 50% In Water (25gm) 50 Ml Syringe IV 50 ml Q30MIN PRN Administration Hypoglycemia Protocol Enoxaparin Sodium 40 mg 08/17/20 10:00 08/23/20 09:37 Enoxaparin 40 Mg/0.4 Ml Inj SUB-Q 40 mg QDAY@1000 [place] Administration Famotidine 20 mg 07/30/20 10:00 08/23/20 09:37 Famotidine 20 Mg Tab PO 20 mg BID [place] Administration Glycopyrrolate 2 mg 08/20/20 14:00 08/23/20 09:40 Glycopyrrolate 2 Mg Tab PO 2 mg TID [place] Administration Hydralazine HCl 10 mg 08/07/20 10:49 Hydralazine 20 Mg/1 Ml Inj IV Q4HR PRN Give if SBP>180 DBP>100 Hydralazine HCl 10 mg 08/18/20 14:00 08/23/20 06:17 Hydralazine 10 Mg Tab PO 10 mg Q8HR [place] Administration Hydromorphone HCl 1 mg 08/07/20 12:28 08/12/20 18:19 Hydromorphone 1 Mg/1 Ml Inj IV 1 mg Q4H PRN Administration Pain , Severe (7-10) Hydrophilic Ointment 1 applic 07/28/20 09:30 Lip Therapy Vaseline TP Q2H PRN Dry Lips Micafungin Sodium 100 mg/ 100 mls @ 100 mls/hr 08/17/20 12:00 08/22/20 13:56 Sodium Chloride IV 08/31/20 12:59 Infused Q24H [place] Infusion Protocol Cefepime HCl 2 gm in 100 mls @ 200 mls/hr 08/20/20 10:00 08/23/20 09:38 Cefepime/Ns 2 Gm/100 Ml IV 08/24/20 22:29 100 mls/hr Q12HR [place] Administration Protocol Vancomycin HCl 1,500 mg/ 530 mls @ 333.333 mls/hr 08/20/20 14:00 08/22/20 18:14 Sodium Chloride IV Infused Q24H [place] Infusion Insulin Glargine 25 units 08/22/20 10:00 08/23/20 09:38 Insulin Glargine 100 Units/Ml SUB-Q 25 units DAILY [place] Administration Insulin Human Lispro 0 unit 08/04/20 12:00 08/23/20 06:15 Insulin Lispro 100 Unit/Ml SUB-Q 3 unit Q6HR [place] Administration Protocol Metoprolol Tartrate 50 mg 08/17/20 10:00 08/23/20 09:37 Metoprolol Tartrate 50 Mg Tab PO 50 mg BID [place] Administration Multi-Ingred Cream/Lotion/Oil/Oint 1 applic 07/28/20 09:30 Mineral Oil/Petrolatum, White Ophth Oint 3.5 Gm OU Q4H PRN Dry Eye(s) Scopolamine 1 each 08/07/20 13:00 08/22/20 09:24 Scopolamine Transdermal Patch 72 Hr TD 1 each Q3D [place] Administration Senna/Docusate Sodium 1 tab 07/28/20 22:00 08/23/20 09:37 Sennosides/Docusate Sodium 8.6/50 Mg Tab FEEDTUBE 1 tab BID [place] Administration Simple Syrup 15 ml 07/29/20 09:55 Simple Syrup 15 Ml FEEDTUBE PRN PRN Hypoglycemia Simple Syrup 30 ml 07/29/20 09:55 Simple Syrup 15 Ml FEEDTUBE PRN PRN Hypoglycemia Sodium Bicarbonate 325 mg 07/29/20 09:55 Sodium Bicarbonate 325 Mg Tab FEEDTUBE PRN PRN For Clogged Feeding Tube Sodium Chloride 10 ml 07/28/20 22:00 08/23/20 09:40 Sodium Chloride 0.9% 10 Ml Flush Syringe IV 10 ml BID [place] Administration Sodium Chloride 10 ml 07/28/20 14:27 Sodium Chloride 0.9% 10 Ml Flush Syringe IV PRN PRN LINE FLUSH Zinc Sulfate 220 mg 08/01/20 15:00 08/23/20 09:38 Zinc Sulfate 220 Mg Cap PO 220 mg BID [place] Administration Nutrition/Malnutrition Assess - Dietary Evaluation Nutrition/Malnutrition Findings: Nutrition Notes Start: 07/29/20 09:47 Freq: Status: Active Protocol: Document 08/22/20 10:07 (Rec: 08/22/20 10:10 [email or web address]) Nutrition Notes Initial or Follow up Reassessment Current Diagnosis Acute Kidney Injury, Respiratory Failure Other Pertinent Diagnosis Acute encephalopathy, Pneu, UTI, Quadriplegia Current Diet Vital AF 1.2 at 65 ml/hr Labs/Tests POC BG since last asssessment: 111-241 Pertinent Medications Lantus Height 6 ft Weight 79.2 kg [place] Body Weight (kg) 80.90 BMI 23.6 Weight Status Appropriate Subjective/Other Information FU for TF tolerance. Pt continues to tolerate TF at goal rate. Pt has not gotten Reji. Percent of energy/protein needs met: 98%/100% Burn Absent Trauma Absent Current % PO Negligible Minimum of two criteria No Fluid Accumulation Moderate to Severe (severe) #2 Nutrition Diagnosis Increased nutrient needs ( specify in comment below) Diagnosis Progress(for reassessment Continues documentation) #1 Nutrition Diagnosis Inadequate oral intake Diagnosis Progress(for reassessment Continues documentation) Is patient on ventilator? Yes Is Patient Ambulatory and/or Out of Bed No REE-(Theresa-St. Jeor-confined to bed) [phone] Calculation Used for Recommendations Theresa-St Mei Additional Notes Pro needs 1.2-2g/k-163g/ day Fluid needs 1ml/kcal Nutrition Intervention Change Diet Order: Continue Nutrition Support: Continue Vital AF 1.2 at 65ml/ hr with 100 ml water flush q4h . Kcal 1,872 Protein (gm) 117 Fluid (mL) 1,265 Add Supplement/Snack (indicate name/kcal Reji BID /protein ) Provides kCal: 190 Provides Protein (gm) 5 Goal #1 TF tolerance Goal #2 TF to meet at least 80% energy and pro needs Anticipated Discharge Needs: Unable to determine at this time Follow-Up By: 08/29/20 Additional Comments FU for TF tolerance, Reji administration
--- NOTE | 2020-08-23 12:47 | Progress Note ---
Assessment and Plan Acute possibly on chronic toxic metabolic encephalopathy Acute hypoxemic respiratory failure on MVS Severe sepsis with shock, presumably secondary to aspiration pneumonia Recent upper ext DVT (06/06) Aspiration pneumonia, bilateral Urinary tract infection History of quadriplegia Leukocytosis Anemia that is microcytic Coagulopathy. INR 2.17 at presentation Mild hypokalemia Acute kidney injury Metabolic lactic acidosis Non-ST elevation myocardial infarction Adult failure to thrive Moderate to severe protein calorie malnutrition - discussed care plan with insurance MD in peer to peer and he should transfer to - follow repeat CBC - continue daily SAT's and SBT's as tolerated - continue care as below otherwise; - prn Levophed for target MAP > 65 mmHg - continue to wean supplemental oxygen for target O2 sat's > 90% acutely - VAP bundle addressed - continue lung protective strategies - continue bronchodilators with routine trach care and pulmonary hygiene per RT - wean per pulmonary driven protocols otherwise - avoid nephrotoxins, renally dose all medications - continue to avoid benzodiazepine's, reduce the possibility of delirium - complete antiinfective's per ID rec's - prn analgesia per CPOT score - Maintenance of sleep-wake cycle, avoid delirium - continue enteral nutritional support at goal rate as tolerated - G.I. & VTE prophylaxis - PT/OT/ROM exercises - continue wound care per RN / WCN - continue mobility protocols for pressure ulcer prophylaxis - Monitor hemodynamics closely - continue other care per attending / other consultants - discharge planning ongoing concurrently COVID SPECIFIC INTERVENTIONS: - COVID test result negative .... Re-evaluate in am & prn CONDITION: CRITICAL PROGNOSIS: GUARDED CODE STATUS: FULL CODE The high probability of a clinically significant, sudden or life-threatening deterioration of the [respiratory, cardiovascular & neurologic] system(s) required my full and direct attention, intervention and personal management. The aggregate critical care time was [32] minutes without overlap. Time includes spent on; [x] Data Review and interpretation [x] Patient assessment and monitoring of vital signs [x] Documentation [x] Medication orders and management Subjective Date of service: 08/23/20 Principal diagnosis: Ac. encephalopathy; Ac. hypoxemic resp failure; Septic Shock; PNA; UTI; JEFF[place] Interval history: Patient is seen today for: Acute encephalopathy; Acute hypoxemic respiratory failure; Septic Shock; Aspiration pneumonia; UTI; quadriplegia; JEFFERSON Seen and examined at bedside; 24hour events reviewed; nursing and respiratory care staff consulted; no adverse overnight events reported to me; resting in bed; remains on MVS; tolerated 2 hours on SBT earlier; mot on sedation; nods head appropriately; afebrile; no gross bleeding reported Objective Vital Signs - 12hr 08/23/20 08/23/20 08/23/20 01:00 02:00 03:00 Temperature Pulse Rate 72 76 73 Respiratory 23 25 H 22 Rate Blood Pressure 164/82 166/77 155/80 O2 Sat by Pulse 99 99 99 Oximetry O2 Sat by Pulse Oximetry [ Assessment] 08/23/20 08/23/20 08/23/20 03:34 03:57 04:00 Temperature 97.6 F Pulse Rate 74 72 Respiratory 15 Rate Blood Pressure 159/82 155/80 O2 Sat by Pulse 98 98 Oximetry O2 Sat by Pulse Oximetry [ Assessment] 08/23/20 08/23/20 08/23/20 05:00 06:00 06:05 Temperature Pulse Rate 69 78 Respiratory 19 23 Rate Blood Pressure 162/75 162/75 O2 Sat by Pulse 98 97 Oximetry O2 Sat by Pulse 98 Oximetry [ Assessment] 08/23/20 08/23/20 08/23/20 06:17 07:00 07:47 Temperature Pulse Rate 70 67 75 Respiratory 20 20 Rate Blood Pressure 159/80 156/74 156/76 O2 Sat by Pulse 100 99 Oximetry O2 Sat by Pulse Oximetry [ Assessment] 08/23/20 08/23/20 08/23/20 08:00 08:20 09:00 Temperature 97.6 F Pulse Rate 71 69 Respiratory 28 H 28 H Rate Blood Pressure 156/74 179/83 O2 Sat by Pulse 99 99 98 Oximetry O2 Sat by Pulse Oximetry [ Assessment] 08/23/20 08/23/20 08/23/20 09:37 09:38 10:00 Temperature Pulse Rate 76 76 73 Respiratory 21 Rate Blood Pressure 157/78 157/78 157/78 O2 Sat by Pulse 99 Oximetry O2 Sat by Pulse Oximetry [ Assessment] 08/23/20 08/23/20 08/23/20 10:09 11:39 12:00 Temperature 97 F L Pulse Rate 63 Respiratory Rate Blood Pressure 157/78 O2 Sat by Pulse 99 Oximetry O2 Sat by Pulse 99 Oximetry [ Assessment] Constitutional: appears uncomfortable, other ( chronically ill looking male with mildly increased respiratory effort at rest on MVS) Eyes: non-icteric ENT: oropharynx moist, oropharyngeal exudate pre (non-bloody; mild), other (trach) Neck: supple, no lymphadenopathy, no JVD Effort: mildly labored Ascultation: Bilateral: diminished breath sounds (bases), rhonchi Percussion: Bilateral: not dull Cardiovascular: regular rate and rhythm, other (S1,S2) Gastrointestinal: normoactive bowel sounds, soft, non-tender, non-distended, other (PEG) Integumentary: rash, decubitus ulcer (sacral (POA)) Extremities: no cyanosis, pulses normal, edema (lower extremities and bilatral upper extremity) Neurologic: pupils equal and round, other (quadriplegic; responds appropriately to questions / prompts) Psychiatric: mood appropriate, affect normal CBC and BMP: 08/20/20 14:10 08/20/20 14:10 ABG, PT/INR, D-dimer: ABG ABG pH 7.480 (7.320-7.450) H 08/18/20 05:00 POC ABG pCO2 40.2 mmHg (32.0-48.0) 08/18/20 05:00 ABG pCO2 35.7 mm Hg 08/15/20 Unknown POC ABG pO2 95.3 mmHg (83-108) 08/18/20 05:00 ABG pO2 77.7 mm Hg (80.0-90.0) L 08/15/20 Unknown POC ABG HCO3 29.3 08/18/20 05:00 ABG O2 Saturation 97.8 (0-100) 08/18/20 05:00 PT/INR, D-dimer PT 14.7 Sec. (12.2-14.9) 08/15/20 10:28 INR 1.09 (0.87-1.13) 08/15/20 10:28 Abnormal lab findings: Abnormal Labs 07/28/20 07/28/20 07/28/20 08:48 08:48 08:48 WBC 17.0 H RBC 2.77 L Hgb 8.2 L Hct 26.5 L MCV 96 H MCH MCHC 31 L RDW 16.2 H Plt Count Seg Neuts % (Manual) Lymphocytes % (Manual) Seg Neutrophils # Man Lymphocytes # (Manual) Haptoglobin PT 24.7 H INR 2.17 H ABG pH POC ABG pCO2 POC ABG pO2 ABG pO2 ABG O2 Saturation ABG Hemoglobin ABG Oxyhemoglobin ABG Sodium ABG Potassium ABG Chloride ABG Glucose Oxyhemoglobin Carboxyhemoglobin Sodium 135 L Potassium 3.5 L Chloride 97.6 L Carbon Dioxide BUN 44 H Creatinine 1.6 H Glucose 431 H POC Glucose Hemoglobin A1c Lactic Acid Calcium 7.9 L Ionized Calcium Phosphorus AST 81 H ALT Alkaline Phosphatase Ammonia Lactate Dehydrogenase Total Creatine Kinase 486 H Troponin T 0.115 H* C-Reactive Protein Total Protein 5.6 L Albumin 2.6 L Triglycerides LDL Cholesterol Direct 44 L HDL Cholesterol 26 L Arterial Blood Glucose Arterial Blood Ionized Calcium Urine WBC (Auto) Salicylates Crossmatch 07/28/20 07/28/20 07/28/20 08:48 09:44 09:44 WBC RBC Hgb Hct MCV MCH MCHC RDW Plt Count Seg Neuts % (Manual) Lymphocytes % (Manual) Seg Neutrophils # Man Lymphocytes # (Manual) Haptoglobin PT INR ABG pH POC ABG pCO2 POC ABG pO2 ABG pO2 ABG O2 Saturation ABG Hemoglobin ABG Oxyhemoglobin ABG Sodium ABG Potassium ABG Chloride ABG Glucose Oxyhemoglobin Carboxyhemoglobin Sodium Potassium Chloride Carbon Dioxide BUN Creatinine Glucose POC Glucose Hemoglobin A1c Lactic Acid 3.80 H* Calcium Ionized Calcium Phosphorus AST ALT Alkaline Phosphatase Ammonia 63.0 H Lactate Dehydrogenase Total Creatine Kinase Troponin T C-Reactive Protein Total Protein Albumin Triglycerides LDL Cholesterol Direct HDL Cholesterol Arterial Blood Glucose Arterial Blood Ionized Calcium Urine WBC (Auto) Salicylates < 0.3 L Crossmatch 07/28/20 07/28/20 07/28/20 10:18 14:38 15:58 WBC RBC Hgb Hct MCV MCH MCHC RDW Plt Count Seg Neuts % (Manual) Lymphocytes % (Manual) Seg Neutrophils # Man Lymphocytes # (Manual) Haptoglobin PT INR ABG pH POC ABG pCO2 POC ABG pO2 ABG pO2 78.0 L ABG O2 Saturation ABG Hemoglobin 7.6 L ABG Oxyhemoglobin ABG Sodium ABG Potassium ABG Chloride ABG Glucose Oxyhemoglobin Carboxyhemoglobin Sodium Potassium Chloride Carbon Dioxide BUN Creatinine Glucose POC Glucose 265 H Hemoglobin A1c Lactic Acid 3.90 H* Calcium Ionized Calcium Phosphorus AST ALT Alkaline Phosphatase Ammonia Lactate Dehydrogenase Total Creatine Kinase Troponin T C-Reactive Protein Total Protein Albumin Triglycerides LDL Cholesterol Direct HDL Cholesterol Arterial Blood Glucose Arterial Blood Ionized Calcium Urine WBC (Auto) Salicylates Crossmatch 07/28/20 07/28/20 07/28/20 19:50 21:00 Unknown WBC RBC Hgb Hct MCV MCH MCHC RDW Plt Count Seg Neuts % (Manual) Lymphocytes % (Manual) Seg Neutrophils # Man Lymphocytes # (Manual) Haptoglobin PT INR ABG pH 7.107 L POC ABG pCO2 65.6 H POC ABG pO2 ABG pO2 ABG O2 Saturation ABG Hemoglobin 9.9 L ABG Oxyhemoglobin ABG Sodium ABG Potassium ABG Chloride 108.0 H ABG Glucose 299 H Oxyhemoglobin Carboxyhemoglobin 0.2 L Sodium Potassium Chloride Carbon Dioxide BUN Creatinine Glucose POC Glucose Hemoglobin A1c Lactic Acid Calcium Ionized Calcium Phosphorus 5.40 H AST ALT Alkaline Phosphatase Ammonia Lactate Dehydrogenase Total Creatine Kinase Troponin T C-Reactive Protein 9.00 H Total Protein Albumin Triglycerides LDL Cholesterol Direct HDL Cholesterol Arterial Blood Glucose 299 H Arterial Blood Ionized Calcium 4.2 L Urine WBC (Auto) > 182.0 H Salicylates Crossmatch 07/29/20 07/29/20 07/29/20 04:02 13:00 17:13 WBC RBC Hgb Hct MCV MCH MCHC RDW Plt Count Seg Neuts % (Manual) Lymphocytes % (Manual) Seg Neutrophils # Man Lymphocytes # (Manual) Haptoglobin PT INR ABG pH 7.212 L POC ABG pCO2 52.5 H POC ABG pO2 128.3 H ABG pO2 ABG O2 Saturation ABG Hemoglobin 10.5 L ABG Oxyhemoglobin ABG Sodium ABG Potassium ABG Chloride 108.0 H ABG Glucose 239 H Oxyhemoglobin Carboxyhemoglobin Sodium Potassium Chloride Carbon Dioxide BUN Creatinine Glucose POC Glucose 212 H 257 H Hemoglobin A1c Lactic Acid Calcium Ionized Calcium Phosphorus AST ALT Alkaline Phosphatase Ammonia Lactate Dehydrogenase Total Creatine Kinase Troponin T C-Reactive Protein Total Protein Albumin Triglycerides LDL Cholesterol Direct HDL Cholesterol Arterial Blood Glucose 239 H Arterial Blood Ionized Calcium 4.0 L Urine WBC (Auto) Salicylates Crossmatch 07/29/20 07/29/20 07/29/20 21:00 23:20 Unknown WBC RBC 3.05 L Hgb 9.7 L Hct 28.6 L MCV MCH MCHC RDW 16.1 H Plt Count Seg Neuts % (Manual) 75.0 H Lymphocytes % (Manual) 2.0 L Seg Neutrophils # Man Lymphocytes # (Manual) 0.2 L Haptoglobin PT INR ABG pH 7.286 L POC ABG pCO2 POC ABG pO2 ABG pO2 ABG O2 Saturation ABG Hemoglobin 9.1 L ABG Oxyhemoglobin ABG Sodium ABG Potassium ABG Chloride 109.0 H ABG Glucose 285 H Oxyhemoglobin Carboxyhemoglobin Sodium Potassium Chloride Carbon Dioxide BUN Creatinine Glucose POC Glucose 233 H Hemoglobin A1c Lactic Acid Calcium Ionized Calcium Phosphorus AST ALT Alkaline Phosphatase Ammonia Lactate Dehydrogenase Total Creatine Kinase Troponin T C-Reactive Protein Total Protein Albumin Triglycerides LDL Cholesterol Direct HDL Cholesterol Arterial Blood Glucose 285 H Arterial Blood Ionized Calcium 3.9 L Urine WBC (Auto) Salicylates Crossmatch 07/29/20 07/29/20 07/30/20 Unknown Unknown 05:30 WBC RBC Hgb Hct MCV MCH MCHC RDW Plt Count Seg Neuts % (Manual) Lymphocytes % (Manual) Seg Neutrophils # Man Lymphocytes # (Manual) Haptoglobin PT INR ABG pH POC ABG pCO2 POC ABG pO2 ABG pO2 ABG O2 Saturation ABG Hemoglobin ABG Oxyhemoglobin ABG Sodium ABG Potassium ABG Chloride ABG Glucose Oxyhemoglobin Carboxyhemoglobin Sodium Potassium Chloride 108.4 H Carbon Dioxide 21 L BUN 41 H Creatinine Glucose 217 H POC Glucose 245 H Hemoglobin A1c Lactic Acid 2.70 H* Calcium 6.5 L D Ionized Calcium Phosphorus AST 104 H ALT 74 H Alkaline Phosphatase Ammonia Lactate Dehydrogenase Total Creatine Kinase Troponin T C-Reactive Protein Total Protein 5.1 L Albumin 2.4 L Triglycerides LDL Cholesterol Direct HDL Cholesterol Arterial Blood Glucose Arterial Blood Ionized Calcium Urine WBC (Auto) Salicylates Crossmatch 07/30/20 07/30/20 07/30/20 05:45 05:45 12:12 WBC RBC 2.50 L Hgb 7.8 L Hct 23.3 L MCV MCH MCHC RDW 16.4 H Plt Count Seg Neuts % (Manual) Lymphocytes % (Manual) Seg Neutrophils # Man Lymphocytes # (Manual) Haptoglobin PT INR ABG pH POC ABG pCO2 POC ABG pO2 ABG pO2 ABG O2 Saturation ABG Hemoglobin ABG Oxyhemoglobin ABG Sodium ABG Potassium ABG Chloride ABG Glucose Oxyhemoglobin Carboxyhemoglobin Sodium Potassium Chloride 108.4 H Carbon Dioxide 21 L BUN 44 H Creatinine 1.4 H Glucose 279 H POC Glucose 243 H Hemoglobin A1c Lactic Acid Calcium 6.7 L Ionized Calcium Phosphorus AST 51 H ALT Alkaline Phosphatase Ammonia Lactate Dehydrogenase Total Creatine Kinase Troponin T C-Reactive Protein Total Protein 5.5 L Albumin 2.3 L Triglycerides LDL Cholesterol Direct HDL Cholesterol Arterial Blood Glucose Arterial Blood Ionized Calcium Urine WBC (Auto) Salicylates Crossmatch 07/30/20 07/30/20 07/30/20 15:50 17:20 19:01 WBC RBC Hgb Hct MCV MCH MCHC RDW Plt Count Seg Neuts % (Manual) Lymphocytes % (Manual) Seg Neutrophils # Man Lymphocytes # (Manual) Haptoglobin PT INR ABG pH POC ABG pCO2 POC ABG pO2 147.2 H ABG pO2 ABG O2 Saturation ABG Hemoglobin 7.2 L ABG Oxyhemoglobin ABG Sodium ABG Potassium 3.3 L ABG Chloride 115.0 H ABG Glucose 269 H Oxyhemoglobin Carboxyhemoglobin 1.6 H Sodium Potassium Chloride Carbon Dioxide BUN Creatinine Glucose POC Glucose 260 H Hemoglobin A1c Lactic Acid Calcium Ionized Calcium 4.2 L Phosphorus AST ALT Alkaline Phosphatase Ammonia Lactate Dehydrogenase Total Creatine Kinase Troponin T C-Reactive Protein Total Protein Albumin Triglycerides LDL Cholesterol Direct HDL Cholesterol Arterial Blood Glucose 269 H Arterial Blood Ionized Calcium 3.5 L Urine WBC (Auto) Salicylates Crossmatch 07/30/20 07/31/20 07/31/20 23:16 04:04 04:47 WBC RBC Hgb Hct MCV MCH MCHC RDW Plt Count Seg Neuts % (Manual) Lymphocytes % (Manual) Seg Neutrophils # Man Lymphocytes # (Manual) Haptoglobin PT INR ABG pH POC ABG pCO2 POC ABG pO2 ABG pO2 ABG O2 Saturation ABG Hemoglobin 7.6 L ABG Oxyhemoglobin ABG Sodium ABG Potassium 3.3 L ABG Chloride 113.0 H ABG Glucose 348 H Oxyhemoglobin Carboxyhemoglobin 0.4 L Sodium Potassium Chloride Carbon Dioxide BUN Creatinine Glucose POC Glucose 298 H 297 H Hemoglobin A1c Lactic Acid Calcium Ionized Calcium Phosphorus AST ALT Alkaline Phosphatase Ammonia Lactate Dehydrogenase Total Creatine Kinase Troponin T C-Reactive Protein Total Protein Albumin Triglycerides LDL Cholesterol Direct HDL Cholesterol Arterial Blood Glucose 348 H Arterial Blood Ionized Calcium 4.1 L Urine WBC (Auto) Salicylates Crossmatch 07/31/20 07/31/20 07/31/20 07:26 07:26 11:54 WBC RBC 2.29 L Hgb 7.2 L Hct 21.5 L MCV MCH MCHC RDW 16.7 H Plt Count Seg Neuts % (Manual) Lymphocytes % (Manual) Seg Neutrophils # Man Lymphocytes # (Manual) Haptoglobin PT INR ABG pH POC ABG pCO2 POC ABG pO2 ABG pO2 ABG O2 Saturation ABG Hemoglobin ABG Oxyhemoglobin ABG Sodium ABG Potassium ABG Chloride ABG Glucose Oxyhemoglobin Carboxyhemoglobin Sodium Potassium 3.4 L Chloride 109.4 H Carbon Dioxide BUN 45 H Creatinine 1.4 H Glucose 304 H POC Glucose 302 H Hemoglobin A1c Lactic Acid Calcium 6.9 L Ionized Calcium Phosphorus AST ALT Alkaline Phosphatase Ammonia Lactate Dehydrogenase Total Creatine Kinase Troponin T C-Reactive Protein Total Protein Albumin Triglycerides LDL Cholesterol Direct HDL Cholesterol Arterial Blood Glucose Arterial Blood Ionized Calcium Urine WBC (Auto) Salicylates Crossmatch 07/31/20 08/01/20 08/01/20 21:27 03:09 04:30 WBC RBC 2.29 L Hgb 7.0 L Hct 20.7 L MCV MCH MCHC RDW 16.2 H Plt Count 125 L Seg Neuts % (Manual) Lymphocytes % (Manual) Seg Neutrophils # Man Lymphocytes # (Manual) Haptoglobin PT INR ABG pH POC ABG pCO2 POC ABG pO2 ABG pO2 ABG O2 Saturation ABG Hemoglobin 7.4 L ABG Oxyhemoglobin ABG Sodium 146.9 H ABG Potassium 3.2 L ABG Chloride 116.0 H ABG Glucose 113 H Oxyhemoglobin Carboxyhemoglobin Sodium Potassium Chloride Carbon Dioxide BUN Creatinine Glucose POC Glucose 138 H Hemoglobin A1c Lactic Acid Calcium Ionized Calcium Phosphorus AST ALT Alkaline Phosphatase Ammonia Lactate Dehydrogenase Total Creatine Kinase Troponin T C-Reactive Protein Total Protein Albumin Triglycerides LDL Cholesterol Direct HDL Cholesterol Arterial Blood Glucose 113 H Arterial Blood Ionized Calcium 4.5 L Urine WBC (Auto) Salicylates Crossmatch 08/01/20 08/01/20 08/01/20 04:30 04:30 08:40 WBC RBC Hgb Hct MCV MCH MCHC RDW Plt Count Seg Neuts % (Manual) Lymphocytes % (Manual) Seg Neutrophils # Man Lymphocytes # (Manual) Haptoglobin PT INR ABG pH POC ABG pCO2 POC ABG pO2 ABG pO2 ABG O2 Saturation ABG Hemoglobin ABG Oxyhemoglobin ABG Sodium ABG Potassium ABG Chloride ABG Glucose Oxyhemoglobin Carboxyhemoglobin Sodium 148 H Potassium 3.4 L Chloride 114.3 H Carbon Dioxide BUN 43 H Creatinine Glucose 109 H POC Glucose Hemoglobin A1c 8.8 H Lactic Acid Calcium 8.1 L D Ionized Calcium Phosphorus AST ALT Alkaline Phosphatase Ammonia Lactate Dehydrogenase Total Creatine Kinase Troponin T C-Reactive Protein Total Protein Albumin Triglycerides LDL Cholesterol Direct HDL Cholesterol Arterial Blood Glucose Arterial Blood Ionized Calcium Urine WBC (Auto) Salicylates Crossmatch See Detail 08/01/20 08/01/20 08/01/20 08:40 17:03 23:35 WBC RBC Hgb Hct MCV MCH MCHC RDW Plt Count Seg Neuts % (Manual) Lymphocytes % (Manual) Seg Neutrophils # Man Lymphocytes # (Manual) Haptoglobin PT INR ABG pH POC ABG pCO2 POC ABG pO2 ABG pO2 ABG O2 Saturation ABG Hemoglobin ABG Oxyhemoglobin ABG Sodium ABG Potassium ABG Chloride ABG Glucose Oxyhemoglobin Carboxyhemoglobin Sodium Potassium Chloride Carbon Dioxide BUN Creatinine Glucose POC Glucose 129 H 172 H Hemoglobin A1c Lactic Acid Calcium Ionized Calcium Phosphorus 1.70 L AST ALT Alkaline Phosphatase Ammonia Lactate Dehydrogenase Total Creatine Kinase Troponin T C-Reactive Protein Total Protein Albumin Triglycerides LDL Cholesterol Direct HDL Cholesterol Arterial Blood Glucose Arterial Blood Ionized Calcium Urine WBC (Auto) Salicylates Crossmatch 08/02/20 08/02/20 08/02/20 03:50 05:46 10:54 WBC RBC Hgb Hct MCV MCH MCHC RDW Plt Count Seg Neuts % (Manual) Lymphocytes % (Manual) Seg Neutrophils # Man Lymphocytes # (Manual) Haptoglobin PT INR ABG pH 7.333 L POC ABG pCO2 POC ABG pO2 ABG pO2 91.5 H ABG O2 Saturation ABG Hemoglobin 7.9 L ABG Oxyhemoglobin ABG Sodium ABG Potassium ABG Chloride ABG Glucose Oxyhemoglobin Carboxyhemoglobin Sodium Potassium Chloride Carbon Dioxide BUN Creatinine Glucose POC Glucose 161 H 228 H Hemoglobin A1c Lactic Acid Calcium Ionized Calcium Phosphorus AST ALT Alkaline Phosphatase Ammonia Lactate Dehydrogenase Total Creatine Kinase Troponin T C-Reactive Protein Total Protein Albumin Triglycerides LDL Cholesterol Direct HDL Cholesterol Arterial Blood Glucose Arterial Blood Ionized Calcium Urine WBC (Auto) Salicylates Crossmatch 08/02/20 08/02/20 08/02/20 17:20 23:13 Unknown WBC RBC 2.66 L Hgb 8.1 L Hct 23.9 L MCV MCH MCHC RDW 16.8 H Plt Count 110 L Seg Neuts % (Manual) Lymphocytes % (Manual) Seg Neutrophils # Man Lymphocytes # (Manual) Haptoglobin PT INR ABG pH POC ABG pCO2 POC ABG pO2 ABG pO2 ABG O2 Saturation ABG Hemoglobin ABG Oxyhemoglobin ABG Sodium ABG Potassium ABG Chloride ABG Glucose Oxyhemoglobin Carboxyhemoglobin Sodium Potassium Chloride Carbon Dioxide BUN Creatinine Glucose POC Glucose 214 H 132 H Hemoglobin A1c Lactic Acid Calcium Ionized Calcium Phosphorus AST ALT Alkaline Phosphatase Ammonia Lactate Dehydrogenase Total Creatine Kinase Troponin T C-Reactive Protein Total Protein Albumin Triglycerides LDL Cholesterol Direct HDL Cholesterol Arterial Blood Glucose Arterial Blood Ionized Calcium Urine WBC (Auto) Salicylates Crossmatch 08/02/20 08/02/20 08/03/20 Unknown Unknown 02:59 WBC RBC Hgb Hct MCV MCH MCHC RDW Plt Count Seg Neuts % (Manual) Lymphocytes % (Manual) Seg Neutrophils # Man Lymphocytes # (Manual) Haptoglobin PT INR ABG pH POC ABG pCO2 POC ABG pO2 ABG pO2 ABG O2 Saturation ABG Hemoglobin 8.1 L ABG Oxyhemoglobin ABG Sodium ABG Potassium ABG Chloride 113.0 H ABG Glucose 143 H Oxyhemoglobin Carboxyhemoglobin Sodium 150 H Potassium 3.5 L Chloride 115.9 H Carbon Dioxide BUN 42 H Creatinine Glucose 188 H POC Glucose Hemoglobin A1c Lactic Acid Calcium 7.8 L Ionized Calcium Phosphorus 2.30 L D AST ALT Alkaline Phosphatase Ammonia Lactate Dehydrogenase Total Creatine Kinase Troponin T C-Reactive Protein Total Protein Albumin Triglycerides LDL Cholesterol Direct HDL Cholesterol Arterial Blood Glucose 143 H Arterial Blood Ionized Calcium Urine WBC (Auto) Salicylates Crossmatch 08/03/20 08/03/20 08/03/20 04:16 04:16 05:12 WBC RBC 2.62 L Hgb 8.1 L Hct 24.1 L MCV MCH MCHC RDW 17.4 H Plt Count 118 L Seg Neuts % (Manual) Lymphocytes % (Manual) Seg Neutrophils # Man Lymphocytes # (Manual) Haptoglobin PT INR ABG pH POC ABG pCO2 POC ABG pO2 ABG pO2 ABG O2 Saturation ABG Hemoglobin ABG Oxyhemoglobin ABG Sodium ABG Potassium ABG Chloride ABG Glucose Oxyhemoglobin Carboxyhemoglobin Sodium 148 H Potassium Chloride 114.5 H Carbon Dioxide BUN 47 H Creatinine Glucose 158 H POC Glucose 164 H Hemoglobin A1c Lactic Acid Calcium 8.1 L Ionized Calcium Phosphorus 2.30 L AST ALT Alkaline Phosphatase Ammonia Lactate Dehydrogenase Total Creatine Kinase Troponin T C-Reactive Protein Total Protein Albumin Triglycerides LDL Cholesterol Direct HDL Cholesterol Arterial Blood Glucose Arterial Blood Ionized Calcium Urine WBC (Auto) Salicylates Crossmatch 08/03/20 08/03/2008/03/21 11:26 17:33 23:47 WBC RBC Hgb Hct MCV MCH MCHC RDW Plt Count Seg Neuts % (Manual) Lymphocytes % (Manual) Seg Neutrophils # Man Lymphocytes # (Manual) Haptoglobin PT INR ABG pH POC ABG pCO2 POC ABG pO2 ABG pO2 ABG O2 Saturation ABG Hemoglobin ABG Oxyhemoglobin ABG Sodium ABG Potassium ABG Chloride ABG Glucose Oxyhemoglobin Carboxyhemoglobin Sodium Potassium Chloride Carbon Dioxide BUN Creatinine Glucose POC Glucose 190 H 235 H 194 H Hemoglobin A1c Lactic Acid Calcium Ionized Calcium Phosphorus AST ALT Alkaline Phosphatase Ammonia Lactate Dehydrogenase Total Creatine Kinase Troponin T C-Reactive Protein Total Protein Albumin Triglycerides LDL Cholesterol Direct HDL Cholesterol Arterial Blood Glucose Arterial Blood Ionized Calcium Urine WBC (Auto) Salicylates Crossmatch 08/04/20 08/04/20 08/04/20 03:00 03:00 04:14 WBC RBC Hgb Hct MCV MCH MCHC RDW Plt Count Seg Neuts % (Manual) Lymphocytes % (Manual) Seg Neutrophils # Man Lymphocytes # (Manual) Haptoglobin PT INR ABG pH POC ABG pCO2 POC ABG pO2 79.5 L ABG pO2 ABG O2 Saturation ABG Hemoglobin 9.9 L ABG Oxyhemoglobin ABG Sodium ABG Potassium ABG Chloride 113.0 H ABG Glucose 227 H Oxyhemoglobin Carboxyhemoglobin 0.3 L Sodium Potassium Chloride 111.4 H Carbon Dioxide BUN 51 H Creatinine Glucose 218 H POC Glucose Hemoglobin A1c Lactic Acid Calcium Ionized Calcium Phosphorus AST ALT Alkaline Phosphatase Ammonia Lactate Dehydrogenase Total Creatine Kinase Troponin T C-Reactive Protein Total Protein Albumin Triglycerides 184 H LDL Cholesterol Direct HDL Cholesterol Arterial Blood Glucose 227 H Arterial Blood Ionized Calcium Urine WBC (Auto) Salicylates Crossmatch 08/04/20 08/04/20 08/04/20 05:17 11:52 11:53 WBC RBC Hgb Hct MCV MCH MCHC RDW Plt Count Seg Neuts % (Manual) Lymphocytes % (Manual) Seg Neutrophils # Man Lymphocytes # (Manual) Haptoglobin PT INR ABG pH POC ABG pCO2 POC ABG pO2 ABG pO2 ABG O2 Saturation ABG Hemoglobin ABG Oxyhemoglobin ABG Sodium ABG Potassium ABG Chloride ABG Glucose Oxyhemoglobin Carboxyhemoglobin Sodium Potassium Chloride Carbon Dioxide BUN Creatinine Glucose POC Glucose 224 H 253 H 237 H Hemoglobin A1c Lactic Acid Calcium Ionized Calcium Phosphorus AST ALT Alkaline Phosphatase Ammonia Lactate Dehydrogenase Total Creatine Kinase Troponin T C-Reactive Protein Total Protein Albumin Triglycerides LDL Cholesterol Direct HDL Cholesterol Arterial Blood Glucose Arterial Blood Ionized Calcium Urine WBC (Auto) Salicylates Crossmatch 08/04/20 08/04/20 08/04/20 15:35 16:25 17:45 WBC 21.5 H RBC 2.10 L Hgb 7.3 L Hct 22.0 L MCV MCH 33 H MCHC 37 H RDW 17.2 H Plt Count 133 L Seg Neuts % (Manual) Lymphocytes % (Manual) Seg Neutrophils # Man Lymphocytes # (Manual) Haptoglobin PT INR ABG pH POC ABG pCO2 POC ABG pO2 ABG pO2 ABG O2 Saturation ABG Hemoglobin ABG Oxyhemoglobin ABG Sodium ABG Potassium ABG Chloride ABG Glucose Oxyhemoglobin Carboxyhemoglobin Sodium Potassium Chloride Carbon Dioxide BUN Creatinine Glucose POC Glucose 230 H 218 H Hemoglobin A1c Lactic Acid Calcium Ionized Calcium Phosphorus AST ALT Alkaline Phosphatase Ammonia Lactate Dehydrogenase Total Creatine Kinase Troponin T C-Reactive Protein Total Protein Albumin Triglycerides LDL Cholesterol Direct HDL Cholesterol Arterial Blood Glucose Arterial Blood Ionized Calcium Urine WBC (Auto) Salicylates Crossmatch 08/04/20 08/05/20 08/05/20 23:11 03:28 05:25 WBC RBC Hgb Hct MCV MCH MCHC RDW Plt Count Seg Neuts % (Manual) Lymphocytes % (Manual) Seg Neutrophils # Man Lymphocytes # (Manual) Haptoglobin PT INR ABG pH POC ABG pCO2 POC ABG pO2 82.1 L ABG pO2 ABG O2 Saturation ABG Hemoglobin 8.6 L ABG Oxyhemoglobin 93.7 L ABG Sodium ABG Potassium ABG Chloride 113.0 H ABG Glucose 205 H Oxyhemoglobin Carboxyhemoglobin Sodium Potassium Chloride Carbon Dioxide BUN Creatinine Glucose POC Glucose 198 H 213 H Hemoglobin A1c Lactic Acid Calcium Ionized Calcium Phosphorus AST ALT Alkaline Phosphatase Ammonia Lactate Dehydrogenase Total Creatine Kinase Troponin T C-Reactive Protein Total Protein Albumin Triglycerides LDL Cholesterol Direct HDL Cholesterol Arterial Blood Glucose 205 H Arterial Blood Ionized Calcium Urine WBC (Auto) Salicylates Crossmatch 08/05/20 08/05/20 08/05/20 08:48 08:48 10:55 WBC 14.3 H RBC 2.76 L Hgb 8.1 L Hct 24.8 L MCV MCH MCHC RDW 17.4 H Plt Count 138 L Seg Neuts % (Manual) 97.0 H Lymphocytes % (Manual) 1.0 L Seg Neutrophils # Man 13.9 H Lymphocytes # (Manual) 0.1 L Haptoglobin PT INR ABG pH POC ABG pCO2 POC ABG pO2 158.7 H ABG pO2 ABG O2 Saturation ABG Hemoglobin 7.8 L ABG Oxyhemoglobin ABG Sodium ABG Potassium ABG Chloride 114.0 H ABG Glucose 242 H Oxyhemoglobin Carboxyhemoglobin Sodium 146 H Potassium Chloride 110.1 H Carbon Dioxide BUN 56 H Creatinine Glucose 219 H POC Glucose Hemoglobin A1c Lactic Acid Calcium Ionized Calcium Phosphorus AST ALT Alkaline Phosphatase 192 H Ammonia Lactate Dehydrogenase Total Creatine Kinase Troponin T C-Reactive Protein Total Protein 5.8 L Albumin 2.0 L Triglycerides LDL Cholesterol Direct HDL Cholesterol Arterial Blood Glucose 242 H Arterial Blood Ionized Calcium Urine WBC (Auto) Salicylates Crossmatch 08/05/20 08/05/20 08/05/20 11:12 11:30 17:08 WBC RBC Hgb Hct MCV MCH MCHC RDW Plt Count Seg Neuts % (Manual) Lymphocytes % (Manual) Seg Neutrophils # Man Lymphocytes # (Manual) Haptoglobin PT INR ABG pH POC ABG pCO2 POC ABG pO2 147.5 H ABG pO2 ABG O2 Saturation ABG Hemoglobin 7.5 L ABG Oxyhemoglobin 98.1 H ABG Sodium ABG Potassium ABG Chloride 113.0 H ABG Glucose 248 H Oxyhemoglobin Carboxyhemoglobin Sodium Potassium Chloride Carbon Dioxide BUN Creatinine Glucose POC Glucose 238 H 239 H Hemoglobin A1c Lactic Acid Calcium Ionized Calcium Phosphorus AST ALT Alkaline Phosphatase Ammonia Lactate Dehydrogenase Total Creatine Kinase Troponin T C-Reactive Protein Total Protein Albumin Triglycerides LDL Cholesterol Direct HDL Cholesterol Arterial Blood Glucose 248 H Arterial Blood Ionized Calcium Urine WBC (Auto) Salicylates Crossmatch 08/05/20 08/05/20 08/06/20 23:17 Unknown 05:12 WBC RBC Hgb Hct MCV MCH MCHC RDW Plt Count Seg Neuts % (Manual) Lymphocytes % (Manual) Seg Neutrophils # Man Lymphocytes # (Manual) Haptoglobin PT INR ABG pH POC ABG pCO2 POC ABG pO2 ABG pO2 ABG O2 Saturation ABG Hemoglobin ABG Oxyhemoglobin ABG Sodium ABG Potassium ABG Chloride ABG Glucose Oxyhemoglobin Carboxyhemoglobin Sodium Potassium Chloride 109.2 H Carbon Dioxide BUN 51 H Creatinine Glucose 229 H POC Glucose 200 H 145 H Hemoglobin A1c Lactic Acid Calcium Ionized Calcium Phosphorus AST ALT Alkaline Phosphatase Ammonia Lactate Dehydrogenase Total Creatine Kinase Troponin T C-Reactive Protein Total Protein Albumin Triglycerides LDL Cholesterol Direct HDL Cholesterol Arterial Blood Glucose Arterial Blood Ionized Calcium Urine WBC (Auto) Salicylates Crossmatch 08/06/20 08/06/20 08/06/20 05:21 10:00 11:28 WBC RBC Hgb Hct MCV MCH MCHC RDW Plt Count Seg Neuts % (Manual) Lymphocytes % (Manual) Seg Neutrophils # Man Lymphocytes # (Manual) Haptoglobin PT INR ABG pH 7.301 L 7.308 L POC ABG pCO2 49.5 H 49.1 H POC ABG pO2 178.4 H ABG pO2 ABG O2 Saturation ABG Hemoglobin 7.5 L 7.1 L ABG Oxyhemoglobin 98.8 H ABG Sodium ABG Potassium ABG Chloride 112.0 H 112.0 H ABG Glucose 149 H 162 H Oxyhemoglobin Carboxyhemoglobin Sodium Potassium Chloride Carbon Dioxide BUN Creatinine Glucose POC Glucose 158 H Hemoglobin A1c Lactic Acid Calcium Ionized Calcium Phosphorus AST ALT Alkaline Phosphatase Ammonia Lactate Dehydrogenase Total Creatine Kinase Troponin T C-Reactive Protein Total Protein Albumin Triglycerides LDL Cholesterol Direct HDL Cholesterol Arterial Blood Glucose 149 H 162 H Arterial Blood Ionized Calcium Urine WBC (Auto) Salicylates Crossmatch 08/06/20 08/06/20 08/06/20 17:42 23:56 Unknown WBC 13.0 H RBC 2.38 L Hgb 7.1 L Hct 21.5 L MCV MCH MCHC RDW 17.6 H Plt Count Seg Neuts % (Manual) Lymphocytes % (Manual) Seg Neutrophils # Man Lymphocytes # (Manual) Haptoglobin PT INR ABG pH POC ABG pCO2 POC ABG pO2 ABG pO2 ABG O2 Saturation ABG Hemoglobin ABG Oxyhemoglobin ABG Sodium ABG Potassium ABG Chloride ABG Glucose Oxyhemoglobin Carboxyhemoglobin Sodium Potassium Chloride Carbon Dioxide BUN Creatinine Glucose POC Glucose 179 H 259 H Hemoglobin A1c Lactic Acid Calcium Ionized Calcium Phosphorus AST ALT Alkaline Phosphatase Ammonia Lactate Dehydrogenase Total Creatine Kinase Troponin T C-Reactive Protein Total Protein Albumin Triglycerides LDL Cholesterol Direct HDL Cholesterol Arterial Blood Glucose Arterial Blood Ionized Calcium Urine WBC (Auto) Salicylates Crossmatch 08/07/20 08/07/20 08/07/20 04:00 04:05 04:05 WBC RBC 2.32 L Hgb 7.1 L Hct 20.9 L MCV MCH MCHC RDW 17.9 H Plt Count Seg Neuts % (Manual) Lymphocytes % (Manual) Seg Neutrophils # Man Lymphocytes # (Manual) Haptoglobin PT INR ABG pH POC ABG pCO2 POC ABG pO2 150.6 H ABG pO2 ABG O2 Saturation ABG Hemoglobin 8.0 L ABG Oxyhemoglobin 98.4 H ABG Sodium 146.7 H ABG Potassium ABG Chloride 114.0 H ABG Glucose 201 H Oxyhemoglobin Carboxyhemoglobin Sodium 151 H Potassium Chloride 114.3 H Carbon Dioxide BUN 63 H Creatinine Glucose 198 H POC Glucose Hemoglobin A1c Lactic Acid Calcium Ionized Calcium Phosphorus AST 54 H ALT Alkaline Phosphatase 213 H Ammonia Lactate Dehydrogenase Total Creatine Kinase Troponin T C-Reactive Protein Total Protein 6.1 L Albumin 2.0 L Triglycerides LDL Cholesterol Direct HDL Cholesterol Arterial Blood Glucose 201 H Arterial Blood Ionized Calcium Urine WBC (Auto) Salicylates Crossmatch 08/07/20 08/07/20 08/07/20 05:34 11:43 14:30 WBC RBC Hgb Hct MCV MCH MCHC RDW Plt Count Seg Neuts % (Manual) Lymphocytes % (Manual) Seg Neutrophils # Man Lymphocytes # (Manual) Haptoglobin PT INR ABG pH POC ABG pCO2 POC ABG pO2 ABG pO2 62.9 L ABG O2 Saturation 86.7 L ABG Hemoglobin 7.1 L ABG Oxyhemoglobin ABG Sodium ABG Potassium ABG Chloride ABG Glucose Oxyhemoglobin 85.0 L Carboxyhemoglobin Sodium Potassium Chloride Carbon Dioxide BUN Creatinine Glucose POC Glucose 160 H 201 H Hemoglobin A1c Lactic Acid Calcium Ionized Calcium Phosphorus AST ALT Alkaline Phosphatase Ammonia Lactate Dehydrogenase Total Creatine Kinase Troponin T C-Reactive Protein Total Protein Albumin Triglycerides LDL Cholesterol Direct HDL Cholesterol Arterial Blood Glucose Arterial Blood Ionized Calcium Urine WBC (Auto) Salicylates Crossmatch 08/07/20 08/07/20 08/08/20 17:57 23:12 05:38 WBC RBC Hgb Hct MCV MCH MCHC RDW Plt Count Seg Neuts % (Manual) Lymphocytes % (Manual) Seg Neutrophils # Man Lymphocytes # (Manual) Haptoglobin PT INR ABG pH POC ABG pCO2 POC ABG pO2 ABG pO2 ABG O2 Saturation ABG Hemoglobin ABG Oxyhemoglobin ABG Sodium ABG Potassium ABG Chloride ABG Glucose Oxyhemoglobin Carboxyhemoglobin Sodium Potassium Chloride Carbon Dioxide BUN Creatinine Glucose POC Glucose 242 H 246 H 135 H Hemoglobin A1c Lactic Acid Calcium Ionized Calcium Phosphorus AST ALT Alkaline Phosphatase Ammonia Lactate Dehydrogenase Total Creatine Kinase Troponin T C-Reactive Protein Total Protein Albumin Triglycerides LDL Cholesterol Direct HDL Cholesterol Arterial Blood Glucose Arterial Blood Ionized Calcium Urine WBC (Auto) Salicylates Crossmatch 08/08/20 08/08/20 08/08/20 09:49 11:40 17:28 WBC RBC Hgb Hct MCV MCH MCHC RDW Plt Count Seg Neuts % (Manual) Lymphocytes % (Manual) Seg Neutrophils # Man Lymphocytes # (Manual) Haptoglobin PT INR ABG pH POC ABG pCO2 POC ABG pO2 ABG pO2 ABG O2 Saturation ABG Hemoglobin 6.9 L ABG Oxyhemoglobin ABG Sodium 146.1 H ABG Potassium ABG Chloride 114.0 H ABG Glucose 192 H Oxyhemoglobin Carboxyhemoglobin Sodium Potassium Chloride Carbon Dioxide BUN Creatinine Glucose POC Glucose 187 H 175 H Hemoglobin A1c Lactic Acid Calcium Ionized Calcium Phosphorus AST ALT Alkaline Phosphatase Ammonia Lactate Dehydrogenase Total Creatine Kinase Troponin T C-Reactive Protein Total Protein Albumin Triglycerides LDL Cholesterol Direct HDL Cholesterol Arterial Blood Glucose 192 H Arterial Blood Ionized Calcium Urine WBC (Auto) Salicylates Crossmatch 08/09/20 08/09/20 08/09/20 03:41 06:10 11:58 WBC RBC Hgb Hct MCV MCH MCHC RDW Plt Count Seg Neuts % (Manual) Lymphocytes % (Manual) Seg Neutrophils # Man Lymphocytes # (Manual) Haptoglobin PT INR ABG pH POC ABG pCO2 POC ABG pO2 ABG pO2 ABG O2 Saturation ABG Hemoglobin 6.9 L ABG Oxyhemoglobin ABG Sodium 145.8 H ABG Potassium 4.6 H ABG Chloride 113.0 H ABG Glucose 113 H Oxyhemoglobin Carboxyhemoglobin Sodium Potassium Chloride Carbon Dioxide BUN Creatinine Glucose POC Glucose 118 H 124 H Hemoglobin A1c Lactic Acid Calcium Ionized Calcium Phosphorus AST ALT Alkaline Phosphatase Ammonia Lactate Dehydrogenase Total Creatine Kinase Troponin T C-Reactive Protein Total Protein Albumin Triglycerides LDL Cholesterol Direct HDL Cholesterol Arterial Blood Glucose 113 H Arterial Blood Ionized Calcium Urine WBC (Auto) Salicylates Crossmatch 08/09/20 08/09/20 08/09/20 14:05 14:05 17:42 WBC RBC 3.58 L Hgb 10.5 L D Hct 31.6 L D MCV MCH MCHC RDW 17.8 H Plt Count 125 L Seg Neuts % (Manual) Lymphocytes % (Manual) Seg Neutrophils # Man Lymphocytes # (Manual) Haptoglobin PT INR ABG pH POC ABG pCO2 POC ABG pO2 ABG pO2 ABG O2 Saturation ABG Hemoglobin ABG Oxyhemoglobin ABG Sodium ABG Potassium ABG Chloride ABG Glucose Oxyhemoglobin Carboxyhemoglobin Sodium Potassium Chloride 111.2 H Carbon Dioxide BUN 74 H Creatinine Glucose 137 H POC Glucose 139 H Hemoglobin A1c Lactic Acid Calcium Ionized Calcium Phosphorus AST ALT Alkaline Phosphatase Ammonia Lactate Dehydrogenase Total Creatine Kinase Troponin T C-Reactive Protein Total Protein Albumin Triglycerides LDL Cholesterol Direct HDL Cholesterol Arterial Blood Glucose Arterial Blood Ionized Calcium Urine WBC (Auto) Salicylates Crossmatch 08/09/20 08/09/20 08/09/20 21:07 21:25 23:26 WBC RBC Hgb Hct MCV MCH MCHC RDW Plt Count Seg Neuts % (Manual) Lymphocytes % (Manual) Seg Neutrophils # Man Lymphocytes # (Manual) Haptoglobin PT 15.5 H INR 1.17 H ABG pH POC ABG pCO2 POC ABG pO2 ABG pO2 ABG O2 Saturation ABG Hemoglobin ABG Oxyhemoglobin ABG Sodium ABG Potassium ABG Chloride ABG Glucose Oxyhemoglobin Carboxyhemoglobin Sodium Potassium Chloride Carbon Dioxide BUN Creatinine Glucose POC Glucose 156 H 167 H Hemoglobin A1c Lactic Acid Calcium Ionized Calcium Phosphorus AST ALT Alkaline Phosphatase Ammonia Lactate Dehydrogenase Total Creatine Kinase Troponin T C-Reactive Protein Total Protein Albumin Triglycerides LDL Cholesterol Direct HDL Cholesterol Arterial Blood Glucose Arterial Blood Ionized Calcium Urine WBC (Auto) Salicylates Crossmatch 08/10/20 08/10/20 08/10/20 03:04 12:19 14:53 WBC RBC 2.06 L Hgb 6.1 L D Hct 18.6 L* D MCV MCH MCHC RDW 18.3 H Plt Count 137 L Seg Neuts % (Manual) Lymphocytes % (Manual) Seg Neutrophils # Man Lymphocytes # (Manual) Haptoglobin PT INR ABG pH POC ABG pCO2 POC ABG pO2 ABG pO2 ABG O2 Saturation ABG Hemoglobin 6.7 L ABG Oxyhemoglobin ABG Sodium ABG Potassium ABG Chloride 111.0 H ABG Glucose 116 H Oxyhemoglobin Carboxyhemoglobin Sodium Potassium Chloride Carbon Dioxide BUN Creatinine Glucose POC Glucose 57 L Hemoglobin A1c Lactic Acid Calcium Ionized Calcium Phosphorus AST ALT Alkaline Phosphatase Ammonia Lactate Dehydrogenase Total Creatine Kinase Troponin T C-Reactive Protein Total Protein Albumin Triglycerides LDL Cholesterol Direct HDL Cholesterol Arterial Blood Glucose 116 H Arterial Blood Ionized Calcium Urine WBC (Auto) Salicylates Crossmatch 08/10/20 08/10/20 08/10/20 14:53 18:08 23:11 WBC RBC Hgb Hct MCV MCH MCHC RDW Plt Count Seg Neuts % (Manual) Lymphocytes % (Manual) Seg Neutrophils # Man Lymphocytes # (Manual) Haptoglobin PT INR ABG pH POC ABG pCO2 POC ABG pO2 ABG pO2 ABG O2 Saturation ABG Hemoglobin ABG Oxyhemoglobin ABG Sodium ABG Potassium ABG Chloride ABG Glucose Oxyhemoglobin Carboxyhemoglobin Sodium 146 H Potassium Chloride 111.1 H Carbon Dioxide BUN 72 H Creatinine 1.4 H Glucose 158 H POC Glucose 68 L Hemoglobin A1c Lactic Acid Calcium 8.2 L Ionized Calcium Phosphorus AST ALT Alkaline Phosphatase Ammonia Lactate Dehydrogenase Total Creatine Kinase Troponin T C-Reactive Protein Total Protein Albumin Triglycerides LDL Cholesterol Direct HDL Cholesterol Arterial Blood Glucose Arterial Blood Ionized Calcium Urine WBC (Auto) Salicylates Crossmatch See Detail 08/11/20 08/11/20 08/11/20 04:12 05:34 05:36 WBC RBC Hgb Hct MCV MCH MCHC RDW Plt Count Seg Neuts % (Manual) Lymphocytes % (Manual) Seg Neutrophils # Man Lymphocytes # (Manual) Haptoglobin PT INR ABG pH POC ABG pCO2 POC ABG pO2 397.7 H ABG pO2 ABG O2 Saturation ABG Hemoglobin 7.6 L ABG Oxyhemoglobin 98.8 H ABG Sodium ABG Potassium ABG Chloride 113.0 H ABG Glucose 60 L Oxyhemoglobin Carboxyhemoglobin Sodium Potassium Chloride Carbon Dioxide BUN Creatinine Glucose POC Glucose 55 L 51 L Hemoglobin A1c Lactic Acid Calcium Ionized Calcium Phosphorus AST ALT Alkaline Phosphatase Ammonia Lactate Dehydrogenase Total Creatine Kinase Troponin T C-Reactive Protein Total Protein Albumin Triglycerides LDL Cholesterol Direct HDL Cholesterol Arterial Blood Glucose 60 L Arterial Blood Ionized Calcium 4.4 L Urine WBC (Auto) Salicylates Crossmatch 08/11/20 08/11/20 08/11/20 08:40 08:40 10:23 WBC RBC 2.14 L Hgb 6.2 L 6.3 L Hct 18.8 L* 19.0 L* MCV MCH MCHC RDW 17.6 H Plt Count Seg Neuts % (Manual) Lymphocytes % (Manual) Seg Neutrophils # Man Lymphocytes # (Manual) Haptoglobin PT INR ABG pH POC ABG pCO2 POC ABG pO2 ABG pO2 ABG O2 Saturation ABG Hemoglobin ABG Oxyhemoglobin ABG Sodium ABG Potassium ABG Chloride ABG Glucose Oxyhemoglobin Carboxyhemoglobin Sodium 147 H Potassium Chloride 112.3 H Carbon Dioxide BUN 62 H Creatinine 1.5 H Glucose 73 L POC Glucose Hemoglobin A1c Lactic Acid Calcium 7.9 L Ionized Calcium Phosphorus AST ALT Alkaline Phosphatase Ammonia Lactate Dehydrogenase Total Creatine Kinase Troponin T C-Reactive Protein Total Protein Albumin Triglycerides LDL Cholesterol Direct HDL Cholesterol Arterial Blood Glucose Arterial Blood Ionized Calcium Urine WBC (Auto) Salicylates Crossmatch 08/11/20 08/11/20 08/11/20 11:56 17:43 18:40 WBC RBC Hgb Hct MCV MCH MCHC RDW Plt Count Seg Neuts % (Manual) Lymphocytes % (Manual) Seg Neutrophils # Man Lymphocytes # (Manual) Haptoglobin PT 15.7 H INR 1.19 H ABG pH POC ABG pCO2 POC ABG pO2 ABG pO2 ABG O2 Saturation ABG Hemoglobin ABG Oxyhemoglobin ABG Sodium ABG Potassium ABG Chloride ABG Glucose Oxyhemoglobin Carboxyhemoglobin Sodium Potassium Chloride Carbon Dioxide BUN Creatinine Glucose POC Glucose 53 L 113 H Hemoglobin A1c Lactic Acid Calcium Ionized Calcium Phosphorus AST ALT Alkaline Phosphatase Ammonia Lactate Dehydrogenase Total Creatine Kinase Troponin T C-Reactive Protein Total Protein Albumin Triglycerides LDL Cholesterol Direct HDL Cholesterol Arterial Blood Glucose Arterial Blood Ionized Calcium Urine WBC (Auto) Salicylates Crossmatch 08/11/20 08/11/20 08/11/20 18:40 20:10 22:13 WBC RBC Hgb 6.2 L 6.1 L Hct 18.4 L* 18.3 L* MCV MCH MCHC RDW Plt Count Seg Neuts % (Manual) Lymphocytes % (Manual) Seg Neutrophils # Man Lymphocytes # (Manual) Haptoglobin PT INR ABG pH POC ABG pCO2 POC ABG pO2 163.6 H ABG pO2 ABG O2 Saturation ABG Hemoglobin 7.7 L ABG Oxyhemoglobin 98.3 H ABG Sodium ABG Potassium ABG Chloride 112.0 H ABG Glucose 119 H Oxyhemoglobin Carboxyhemoglobin Sodium Potassium Chloride Carbon Dioxide BUN Creatinine Glucose POC Glucose Hemoglobin A1c Lactic Acid Calcium Ionized Calcium Phosphorus AST ALT Alkaline Phosphatase Ammonia Lactate Dehydrogenase Total Creatine Kinase Troponin T C-Reactive Protein Total Protein Albumin Triglycerides LDL Cholesterol Direct HDL Cholesterol Arterial Blood Glucose 119 H Arterial Blood Ionized Calcium 4.4 L Urine WBC (Auto) Salicylates Crossmatch 08/11/20 08/12/20 08/12/20 23:32 04:43 04:43 WBC RBC Hgb Hct MCV MCH MCHC RDW Plt Count Seg Neuts % (Manual) Lymphocytes % (Manual) Seg Neutrophils # Man Lymphocytes # (Manual) Haptoglobin PT INR ABG pH POC ABG pCO2 POC ABG pO2 ABG pO2 ABG O2 Saturation ABG Hemoglobin ABG Oxyhemoglobin ABG Sodium ABG Potassium ABG Chloride ABG Glucose Oxyhemoglobin Carboxyhemoglobin Sodium Potassium Chloride Carbon Dioxide BUN Creatinine Glucose POC Glucose 106 H Hemoglobin A1c Lactic Acid Calcium Ionized Calcium Phosphorus AST 57 H ALT Alkaline Phosphatase 288 H Ammonia Lactate Dehydrogenase 239 H Total Creatine Kinase Troponin T C-Reactive Protein Total Protein 6.0 L Albumin 1.7 L Triglycerides LDL Cholesterol Direct HDL Cholesterol Arterial Blood Glucose Arterial Blood Ionized Calcium Urine WBC (Auto) Salicylates Crossmatch 08/12/20 08/12/20 08/12/20 04:43 04:53 05:07 WBC RBC 3.03 L Hgb 8.5 L Hct 25.6 L D MCV MCH MCHC RDW 18.4 H Plt Count Seg Neuts % (Manual) 88.0 H Lymphocytes % (Manual) 6.0 L Seg Neutrophils # Man Lymphocytes # (Manual) 0.4 L Haptoglobin 420 H PT INR ABG pH POC ABG pCO2 POC ABG pO2 ABG pO2 ABG O2 Saturation ABG Hemoglobin ABG Oxyhemoglobin ABG Sodium ABG Potassium ABG Chloride ABG Glucose Oxyhemoglobin Carboxyhemoglobin Sodium Potassium Chloride Carbon Dioxide BUN Creatinine Glucose POC Glucose 139 H Hemoglobin A1c Lactic Acid Calcium Ionized Calcium Phosphorus AST ALT Alkaline Phosphatase Ammonia Lactate Dehydrogenase Total Creatine Kinase Troponin T C-Reactive Protein Total Protein Albumin Triglycerides LDL Cholesterol Direct HDL Cholesterol Arterial Blood Glucose Arterial Blood Ionized Calcium Urine WBC (Auto) Salicylates Crossmatch 08/12/20 08/12/20 08/12/20 07:55 07:55 11:17 WBC RBC 2.90 L Hgb 8.1 L Hct 24.4 L MCV MCH MCHC RDW 18.9 H Plt Count Seg Neuts % (Manual) Lymphocytes % (Manual) Seg Neutrophils # Man Lymphocytes # (Manual) Haptoglobin PT INR ABG pH POC ABG pCO2 POC ABG pO2 ABG pO2 ABG O2 Saturation ABG Hemoglobin ABG Oxyhemoglobin ABG Sodium ABG Potassium ABG Chloride ABG Glucose Oxyhemoglobin Carboxyhemoglobin Sodium Potassium 3.3 L Chloride 109.8 H Carbon Dioxide BUN 52 H Creatinine Glucose 153 H POC Glucose 150 H Hemoglobin A1c Lactic Acid Calcium 8.1 L Ionized Calcium Phosphorus AST ALT Alkaline Phosphatase Ammonia Lactate Dehydrogenase Total Creatine Kinase Troponin T C-Reactive Protein Total Protein Albumin Triglycerides LDL Cholesterol Direct HDL Cholesterol Arterial Blood Glucose Arterial Blood Ionized Calcium Urine WBC (Auto) Salicylates Crossmatch 08/12/20 08/12/20 08/12/20 13:05 17:29 18:28 WBC RBC Hgb Hct MCV MCH MCHC RDW Plt Count Seg Neuts % (Manual) Lymphocytes % (Manual) Seg Neutrophils # Man Lymphocytes # (Manual) Haptoglobin PT INR ABG pH POC ABG pCO2 POC ABG pO2 ABG pO2 ABG O2 Saturation ABG Hemoglobin ABG Oxyhemoglobin ABG Sodium ABG Potassium ABG Chloride ABG Glucose Oxyhemoglobin Carboxyhemoglobin Sodium Potassium Chloride Carbon Dioxide BUN Creatinine Glucose POC Glucose 143 H 158 H 158 H Hemoglobin A1c Lactic Acid Calcium Ionized Calcium Phosphorus AST ALT Alkaline Phosphatase Ammonia Lactate Dehydrogenase Total Creatine Kinase Troponin T C-Reactive Protein Total Protein Albumin Triglycerides LDL Cholesterol Direct HDL Cholesterol Arterial Blood Glucose Arterial Blood Ionized Calcium Urine WBC (Auto) Salicylates Crossmatch 08/12/20 08/13/20 08/13/20 23:22 05:32 09:58 WBC RBC 2.79 L Hgb 7.9 L Hct 23.5 L MCV MCH MCHC RDW 18.9 H Plt Count Seg Neuts % (Manual) Lymphocytes % (Manual) Seg Neutrophils # Man Lymphocytes # (Manual) Haptoglobin PT INR ABG pH POC ABG pCO2 POC ABG pO2 ABG pO2 ABG O2 Saturation ABG Hemoglobin ABG Oxyhemoglobin ABG Sodium ABG Potassium ABG Chloride ABG Glucose Oxyhemoglobin Carboxyhemoglobin Sodium Potassium Chloride Carbon Dioxide BUN Creatinine Glucose POC Glucose 191 H 131 H Hemoglobin A1c Lactic Acid Calcium Ionized Calcium Phosphorus AST ALT Alkaline Phosphatase Ammonia Lactate Dehydrogenase Total Creatine Kinase Troponin T C-Reactive Protein Total Protein Albumin Triglycerides LDL Cholesterol Direct HDL Cholesterol Arterial Blood Glucose Arterial Blood Ionized Calcium Urine WBC (Auto) Salicylates Crossmatch 08/13/20 08/13/20 08/13/20 09:58 12:07 12:10 WBC RBC Hgb Hct MCV MCH MCHC RDW Plt Count Seg Neuts % (Manual) Lymphocytes % (Manual) Seg Neutrophils # Man Lymphocytes # (Manual) Haptoglobin PT INR ABG pH POC ABG pCO2 POC ABG pO2 ABG pO2 ABG O2 Saturation ABG Hemoglobin ABG Oxyhemoglobin ABG Sodium ABG Potassium ABG Chloride ABG Glucose Oxyhemoglobin Carboxyhemoglobin Sodium Potassium 3.5 L Chloride 109.1 H Carbon Dioxide BUN 51 H Creatinine Glucose 168 H POC Glucose 142 H 159 H Hemoglobin A1c Lactic Acid Calcium 8.0 L Ionized Calcium Phosphorus AST ALT Alkaline Phosphatase Ammonia Lactate Dehydrogenase Total Creatine Kinase Troponin T C-Reactive Protein Total Protein Albumin Triglycerides LDL Cholesterol Direct HDL Cholesterol Arterial Blood Glucose Arterial Blood Ionized Calcium Urine WBC (Auto) Salicylates Crossmatch 08/13/20 08/13/20 08/14/20 17:17 23:17 05:10 WBC RBC Hgb Hct MCV MCH MCHC RDW Plt Count Seg Neuts % (Manual) Lymphocytes % (Manual) Seg Neutrophils # Man Lymphocytes # (Manual) Haptoglobin PT INR ABG pH POC ABG pCO2 POC ABG pO2 ABG pO2 ABG O2 Saturation ABG Hemoglobin ABG Oxyhemoglobin ABG Sodium ABG Potassium ABG Chloride ABG Glucose Oxyhemoglobin Carboxyhemoglobin Sodium Potassium Chloride Carbon Dioxide BUN Creatinine Glucose POC Glucose 137 H 157 H 153 H Hemoglobin A1c Lactic Acid Calcium Ionized Calcium Phosphorus AST ALT Alkaline Phosphatase Ammonia Lactate Dehydrogenase Total Creatine Kinase Troponin T C-Reactive Protein Total Protein Albumin Triglycerides LDL Cholesterol Direct HDL Cholesterol Arterial Blood Glucose Arterial Blood Ionized Calcium Urine WBC (Auto) Salicylates Crossmatch 08/14/20 08/14/20 08/14/20 11:35 12:05 13:01 WBC RBC 2.73 L Hgb 7.7 L Hct 22.6 L MCV 83 L MCH MCHC RDW 18.4 H Plt Count Seg Neuts % (Manual) Lymphocytes % (Manual) Seg Neutrophils # Man Lymphocytes # (Manual) Haptoglobin PT INR ABG pH POC ABG pCO2 POC ABG pO2 ABG pO2 75.1 L ABG O2 Saturation ABG Hemoglobin 7.7 L ABG Oxyhemoglobin ABG Sodium ABG Potassium ABG Chloride ABG Glucose Oxyhemoglobin 94.8 L Carboxyhemoglobin Sodium Potassium Chloride Carbon Dioxide BUN Creatinine Glucose POC Glucose 175 H Hemoglobin A1c Lactic Acid Calcium Ionized Calcium Phosphorus AST ALT Alkaline Phosphatase Ammonia Lactate Dehydrogenase Total Creatine Kinase Troponin T C-Reactive Protein Total Protein Albumin Triglycerides LDL Cholesterol Direct HDL Cholesterol Arterial Blood Glucose Arterial Blood Ionized Calcium Urine WBC (Auto) Salicylates Crossmatch 08/14/20 08/14/20 08/14/20 13:01 17:55 23:25 WBC RBC Hgb Hct MCV MCH MCHC RDW Plt Count Seg Neuts % (Manual) Lymphocytes % (Manual) Seg Neutrophils # Man Lymphocytes # (Manual) Haptoglobin PT INR ABG pH POC ABG pCO2 POC ABG pO2 ABG pO2 ABG O2 Saturation ABG Hemoglobin ABG Oxyhemoglobin ABG Sodium ABG Potassium ABG Chloride ABG Glucose Oxyhemoglobin Carboxyhemoglobin Sodium Potassium Chloride 107.3 H Carbon Dioxide BUN 49 H Creatinine Glucose 191 H POC Glucose 178 H 150 H Hemoglobin A1c Lactic Acid Calcium 7.9 L Ionized Calcium Phosphorus AST ALT Alkaline Phosphatase Ammonia Lactate Dehydrogenase Total Creatine Kinase Troponin T C-Reactive Protein Total Protein Albumin Triglycerides LDL Cholesterol Direct HDL Cholesterol Arterial Blood Glucose Arterial Blood Ionized Calcium Urine WBC (Auto) Salicylates Crossmatch 08/15/20 08/15/20 08/15/20 04:04 10:28 10:38 WBC RBC 2.94 L Hgb 8.3 L Hct 24.6 L MCV MCH MCHC RDW 18.7 H Plt Count 112 L Seg Neuts % (Manual) Lymphocytes % (Manual) Seg Neutrophils # Man Lymphocytes # (Manual) Haptoglobin PT INR ABG pH POC ABG pCO2 POC ABG pO2 ABG pO2 ABG O2 Saturation ABG Hemoglobin ABG Oxyhemoglobin ABG Sodium ABG Potassium ABG Chloride ABG Glucose Oxyhemoglobin Carboxyhemoglobin Sodium Potassium Chloride 107.4 H Carbon Dioxide BUN 47 H Creatinine Glucose 51 L POC Glucose 44 L Hemoglobin A1c Lactic Acid Calcium 8.3 L Ionized Calcium Phosphorus AST ALT Alkaline Phosphatase Ammonia Lactate Dehydrogenase Total Creatine Kinase Troponin T C-Reactive Protein Total Protein Albumin Triglycerides LDL Cholesterol Direct HDL Cholesterol Arterial Blood Glucose Arterial Blood Ionized Calcium Urine WBC (Auto) Salicylates Crossmatch 08/15/20 08/15/20 08/15/20 17:31 23:15 Unknown WBC RBC Hgb Hct MCV MCH MCHC RDW Plt Count Seg Neuts % (Manual) Lymphocytes % (Manual) Seg Neutrophils # Man Lymphocytes # (Manual) Haptoglobin PT INR ABG pH POC ABG pCO2 POC ABG pO2 ABG pO2 77.7 L ABG O2 Saturation ABG Hemoglobin 9.2 L ABG Oxyhemoglobin ABG Sodium ABG Potassium ABG Chloride ABG Glucose Oxyhemoglobin 94.9 L Carboxyhemoglobin Sodium Potassium Chloride Carbon Dioxide BUN Creatinine Glucose POC Glucose 64 L 114 H Hemoglobin A1c Lactic Acid Calcium Ionized Calcium Phosphorus AST ALT Alkaline Phosphatase Ammonia Lactate Dehydrogenase Total Creatine Kinase Troponin T C-Reactive Protein Total Protein Albumin Triglycerides LDL Cholesterol Direct HDL Cholesterol Arterial Blood Glucose Arterial Blood Ionized Calcium Urine WBC (Auto) Salicylates Crossmatch 08/16/20 08/16/20 08/16/20 05:09 08:02 08:02 WBC 4.1 L RBC 2.70 L Hgb 7.6 L Hct 22.9 L MCV MCH MCHC RDW 18.5 H Plt Count Seg Neuts % (Manual) Lymphocytes % (Manual) Seg Neutrophils # Man Lymphocytes # (Manual) Haptoglobin PT INR ABG pH POC ABG pCO2 POC ABG pO2 ABG pO2 ABG O2 Saturation ABG Hemoglobin ABG Oxyhemoglobin ABG Sodium ABG Potassium ABG Chloride ABG Glucose Oxyhemoglobin Carboxyhemoglobin Sodium Potassium Chloride 110.1 H Carbon Dioxide BUN 45 H Creatinine Glucose 187 H POC Glucose 204 H Hemoglobin A1c Lactic Acid Calcium 7.7 L Ionized Calcium Phosphorus AST ALT Alkaline Phosphatase Ammonia Lactate Dehydrogenase Total Creatine Kinase Troponin T C-Reactive Protein Total Protein Albumin Triglycerides LDL Cholesterol Direct HDL Cholesterol Arterial Blood Glucose Arterial Blood Ionized Calcium Urine WBC (Auto) Salicylates Crossmatch 08/16/20 08/16/20 08/17/20 12:28 17:21 00:20 WBC RBC Hgb Hct MCV MCH MCHC RDW Plt Count Seg Neuts % (Manual) Lymphocytes % (Manual) Seg Neutrophils # Man Lymphocytes # (Manual) Haptoglobin PT INR ABG pH POC ABG pCO2 POC ABG pO2 ABG pO2 ABG O2 Saturation ABG Hemoglobin ABG Oxyhemoglobin ABG Sodium ABG Potassium ABG Chloride ABG Glucose Oxyhemoglobin Carboxyhemoglobin Sodium Potassium Chloride Carbon Dioxide BUN Creatinine Glucose POC Glucose 126 H 107 H 194 H Hemoglobin A1c Lactic Acid Calcium Ionized Calcium Phosphorus AST ALT Alkaline Phosphatase Ammonia Lactate Dehydrogenase Total Creatine Kinase Troponin T C-Reactive Protein Total Protein Albumin Triglycerides LDL Cholesterol Direct HDL Cholesterol Arterial Blood Glucose Arterial Blood Ionized Calcium Urine WBC (Auto) Salicylates Crossmatch 08/17/20 08/17/20 08/17/20 06:02 09:40 09:40 WBC RBC 2.78 L Hgb 7.9 L Hct 24.1 L MCV MCH MCHC RDW 19.3 H Plt Count Seg Neuts % (Manual) Lymphocytes % (Manual) Seg Neutrophils # Man Lymphocytes # (Manual) Haptoglobin PT INR ABG pH POC ABG pCO2 POC ABG pO2 ABG pO2 ABG O2 Saturation ABG Hemoglobin ABG Oxyhemoglobin ABG Sodium ABG Potassium ABG Chloride ABG Glucose Oxyhemoglobin Carboxyhemoglobin Sodium Potassium Chloride 107.5 H Carbon Dioxide BUN 42 H Creatinine Glucose 205 H POC Glucose 199 H Hemoglobin A1c Lactic Acid Calcium Ionized Calcium Phosphorus AST 69 H ALT 93 H Alkaline Phosphatase 556 H Ammonia Lactate Dehydrogenase Total Creatine Kinase Troponin T C-Reactive Protein Total Protein 6.2 L Albumin 1.9 L Triglycerides LDL Cholesterol Direct HDL Cholesterol Arterial Blood Glucose Arterial Blood Ionized Calcium Urine WBC (Auto) Salicylates Crossmatch 08/17/20 08/17/20 08/17/20 11:51 12:54 16:50 WBC RBC Hgb Hct MCV MCH MCHC RDW Plt Count Seg Neuts % (Manual) Lymphocytes % (Manual) Seg Neutrophils # Man Lymphocytes # (Manual) Haptoglobin PT INR ABG pH 7.473 H POC ABG pCO2 POC ABG pO2 81.2 L ABG pO2 ABG O2 Saturation ABG Hemoglobin 7.7 L ABG Oxyhemoglobin ABG Sodium ABG Potassium ABG Chloride 110.0 H ABG Glucose 228 H Oxyhemoglobin Carboxyhemoglobin Sodium Potassium Chloride Carbon Dioxide BUN Creatinine Glucose POC Glucose 204 H 188 H Hemoglobin A1c Lactic Acid Calcium Ionized Calcium Phosphorus AST ALT Alkaline Phosphatase Ammonia Lactate Dehydrogenase Total Creatine Kinase Troponin T C-Reactive Protein Total Protein Albumin Triglycerides LDL Cholesterol Direct HDL Cholesterol Arterial Blood Glucose 228 H Arterial Blood Ionized Calcium Urine WBC (Auto) Salicylates Crossmatch 08/17/20 08/18/20 08/18/20 23:07 05:00 05:12 WBC RBC Hgb Hct MCV MCH MCHC RDW Plt Count Seg Neuts % (Manual) Lymphocytes % (Manual) Seg Neutrophils # Man Lymphocytes # (Manual) Haptoglobin PT INR ABG pH 7.480 H POC ABG pCO2 POC ABG pO2 ABG pO2 ABG O2 Saturation ABG Hemoglobin 7.9 L ABG Oxyhemoglobin ABG Sodium ABG Potassium ABG Chloride 111.0 H ABG Glucose 137 H Oxyhemoglobin Carboxyhemoglobin Sodium Potassium Chloride Carbon Dioxide BUN Creatinine Glucose POC Glucose 187 H 118 H Hemoglobin A1c Lactic Acid Calcium Ionized Calcium Phosphorus AST ALT Alkaline Phosphatase Ammonia Lactate Dehydrogenase Total Creatine Kinase Troponin T C-Reactive Protein Total Protein Albumin Triglycerides LDL Cholesterol Direct HDL Cholesterol Arterial Blood Glucose 137 H Arterial Blood Ionized Calcium 4.5 L Urine WBC (Auto) Salicylates Crossmatch 08/18/20 08/18/20 08/18/20 06:46 06:46 08:03 WBC RBC 3.37 L Hgb 9.5 L Hct 29.3 L MCV MCH MCHC RDW 19.3 H Plt Count Seg Neuts % (Manual) Lymphocytes % (Manual) Seg Neutrophils # Man Lymphocytes # (Manual) Haptoglobin PT INR ABG pH POC ABG pCO2 POC ABG pO2 ABG pO2 ABG O2 Saturation ABG Hemoglobin ABG Oxyhemoglobin ABG Sodium ABG Potassium ABG Chloride ABG Glucose Oxyhemoglobin Carboxyhemoglobin Sodium Potassium Chloride 108.2 H Carbon Dioxide BUN 41 H Creatinine Glucose 120 H POC Glucose 111 H Hemoglobin A1c Lactic Acid Calcium Ionized Calcium Phosphorus AST 95 H ALT 122 H Alkaline Phosphatase 738 H Ammonia Lactate Dehydrogenase Total Creatine Kinase Troponin T C-Reactive Protein Total Protein Albumin 1.8 L Triglycerides LDL Cholesterol Direct HDL Cholesterol Arterial Blood Glucose Arterial Blood Ionized Calcium Urine WBC (Auto) Salicylates Crossmatch 08/18/20 08/18/20 08/18/20 11:21 17:47 23:19 WBC RBC Hgb Hct MCV MCH MCHC RDW Plt Count Seg Neuts % (Manual) Lymphocytes % (Manual) Seg Neutrophils # Man Lymphocytes # (Manual) Haptoglobin PT INR ABG pH POC ABG pCO2 POC ABG pO2 ABG pO2 ABG O2 Saturation ABG Hemoglobin ABG Oxyhemoglobin ABG Sodium ABG Potassium ABG Chloride ABG Glucose Oxyhemoglobin Carboxyhemoglobin Sodium Potassium Chloride Carbon Dioxide BUN Creatinine Glucose POC Glucose 151 H 178 H 209 H Hemoglobin A1c Lactic Acid Calcium Ionized Calcium Phosphorus AST ALT Alkaline Phosphatase Ammonia Lactate Dehydrogenase Total Creatine Kinase Troponin T C-Reactive Protein Total Protein Albumin Triglycerides LDL Cholesterol Direct HDL Cholesterol Arterial Blood Glucose Arterial Blood Ionized Calcium Urine WBC (Auto) Salicylates Crossmatch 08/19/20 08/19/20 08/19/20 05:31 09:56 12:16 WBC RBC Hgb Hct MCV MCH MCHC RDW Plt Count Seg Neuts % (Manual) Lymphocytes % (Manual) Seg Neutrophils # Man Lymphocytes # (Manual) Haptoglobin PT INR ABG pH POC ABG pCO2 POC ABG pO2 ABG pO2 ABG O2 Saturation ABG Hemoglobin ABG Oxyhemoglobin ABG Sodium ABG Potassium ABG Chloride ABG Glucose Oxyhemoglobin Carboxyhemoglobin Sodium Potassium Chloride Carbon Dioxide BUN 43 H Creatinine Glucose 241 H POC Glucose 211 H 241 H Hemoglobin A1c Lactic Acid Calcium 7.9 L Ionized Calcium Phosphorus AST 77 H ALT 114 H Alkaline Phosphatase 621 H Ammonia Lactate Dehydrogenase Total Creatine Kinase Troponin T C-Reactive Protein Total Protein 6.0 L Albumin 2.0 L Triglycerides LDL Cholesterol Direct HDL Cholesterol Arterial Blood Glucose Arterial Blood Ionized Calcium Urine WBC (Auto) Salicylates Crossmatch 08/19/20 08/19/20 08/19/20 14:23 14:25 17:03 WBC RBC Hgb Hct MCV MCH MCHC RDW Plt Count Seg Neuts % (Manual) Lymphocytes % (Manual) Seg Neutrophils # Man Lymphocytes # (Manual) Haptoglobin PT INR ABG pH POC ABG pCO2 POC ABG pO2 ABG pO2 ABG O2 Saturation ABG Hemoglobin ABG Oxyhemoglobin ABG Sodium ABG Potassium ABG Chloride ABG Glucose Oxyhemoglobin Carboxyhemoglobin Sodium Potassium Chloride Carbon Dioxide BUN Creatinine Glucose POC Glucose 201 H Hemoglobin A1c Lactic Acid Calcium Ionized Calcium Phosphorus AST ALT Alkaline Phosphatase Ammonia Lactate Dehydrogenase Total Creatine Kinase Troponin T C-Reactive Protein 9.60 H Total Protein Albumin Triglycerides LDL Cholesterol Direct HDL Cholesterol Arterial Blood Glucose Arterial Blood Ionized Calcium Urine WBC (Auto) 128.0 H Salicylates Crossmatch 08/19/20 08/20/20 08/20/20 23:26 05:19 12:14 WBC RBC Hgb Hct MCV MCH MCHC RDW Plt Count Seg Neuts % (Manual) Lymphocytes % (Manual) Seg Neutrophils # Man Lymphocytes # (Manual) Haptoglobin PT INR ABG pH POC ABG pCO2 POC ABG pO2 ABG pO2 ABG O2 Saturation ABG Hemoglobin ABG Oxyhemoglobin ABG Sodium ABG Potassium ABG Chloride ABG Glucose Oxyhemoglobin Carboxyhemoglobin Sodium Potassium Chloride Carbon Dioxide BUN Creatinine Glucose POC Glucose 221 H 211 H 207 H Hemoglobin A1c Lactic Acid Calcium Ionized Calcium Phosphorus AST ALT Alkaline Phosphatase Ammonia Lactate Dehydrogenase Total Creatine Kinase Troponin T C-Reactive Protein Total Protein Albumin Triglycerides LDL Cholesterol Direct HDL Cholesterol Arterial Blood Glucose Arterial Blood Ionized Calcium Urine WBC (Auto) Salicylates Crossmatch 08/20/20 08/20/20 08/20/20 14:10 14:10 17:50 WBC RBC 2.82 L Hgb 8.1 L Hct 23.9 L MCV MCH MCHC RDW 18.7 H Plt Count Seg Neuts % (Manual) Lymphocytes % (Manual) Seg Neutrophils # Man Lymphocytes # (Manual) Haptoglobin PT INR ABG pH POC ABG pCO2 POC ABG pO2 ABG pO2 ABG O2 Saturation ABG Hemoglobin ABG Oxyhemoglobin ABG Sodium ABG Potassium ABG Chloride ABG Glucose Oxyhemoglobin Carboxyhemoglobin Sodium Potassium Chloride Carbon Dioxide BUN 41 H Creatinine 0.7 L Glucose 236 H POC Glucose 224 H Hemoglobin A1c Lactic Acid Calcium 8.1 L Ionized Calcium Phosphorus AST 119 H ALT 138 H Alkaline Phosphatase 664 H Ammonia Lactate Dehydrogenase Total Creatine Kinase Troponin T C-Reactive Protein Total Protein Albumin 2.1 L Triglycerides LDL Cholesterol Direct HDL Cholesterol Arterial Blood Glucose Arterial Blood Ionized Calcium Urine WBC (Auto) Salicylates Crossmatch 08/21/20 08/21/20 08/21/20 00:32 06:02 11:20 WBC RBC Hgb Hct MCV MCH MCHC RDW Plt Count Seg Neuts % (Manual) Lymphocytes % (Manual) Seg Neutrophils # Man Lymphocytes # (Manual) Haptoglobin PT INR ABG pH POC ABG pCO2 POC ABG pO2 ABG pO2 ABG O2 Saturation ABG Hemoglobin ABG Oxyhemoglobin ABG Sodium ABG Potassium ABG Chloride ABG Glucose Oxyhemoglobin Carboxyhemoglobin Sodium Potassium Chloride Carbon Dioxide BUN Creatinine Glucose POC Glucose 214 H 212 H 207 H Hemoglobin A1c Lactic Acid Calcium Ionized Calcium Phosphorus AST ALT Alkaline Phosphatase Ammonia Lactate Dehydrogenase Total Creatine Kinase Troponin T C-Reactive Protein Total Protein Albumin Triglycerides LDL Cholesterol Direct HDL Cholesterol Arterial Blood Glucose Arterial Blood Ionized Calcium Urine WBC (Auto) Salicylates Crossmatch 08/21/20 08/21/20 08/22/20 18:07 23:20 05:11 WBC RBC Hgb Hct MCV MCH MCHC RDW Plt Count Seg Neuts % (Manual) Lymphocytes % (Manual) Seg Neutrophils # Man Lymphocytes # (Manual) Haptoglobin PT INR ABG pH POC ABG pCO2 POC ABG pO2 ABG pO2 ABG O2 Saturation ABG Hemoglobin ABG Oxyhemoglobin ABG Sodium ABG Potassium ABG Chloride ABG Glucose Oxyhemoglobin Carboxyhemoglobin Sodium Potassium Chloride Carbon Dioxide BUN Creatinine Glucose POC Glucose 204 H 184 H 183 H Hemoglobin A1c Lactic Acid Calcium Ionized Calcium Phosphorus AST ALT Alkaline Phosphatase Ammonia Lactate Dehydrogenase Total Creatine Kinase Troponin T C-Reactive Protein Total Protein Albumin Triglycerides LDL Cholesterol Direct HDL Cholesterol Arterial Blood Glucose Arterial Blood Ionized Calcium Urine WBC (Auto) Salicylates Crossmatch 08/22/20 08/22/20 08/22/20 09:21 12:54 18:11 WBC RBC Hgb Hct MCV MCH MCHC RDW Plt Count Seg Neuts % (Manual) Lymphocytes % (Manual) Seg Neutrophils # Man Lymphocytes # (Manual) Haptoglobin PT INR ABG pH POC ABG pCO2 POC ABG pO2 ABG pO2 ABG O2 Saturation ABG Hemoglobin ABG Oxyhemoglobin ABG Sodium ABG Potassium ABG Chloride ABG Glucose Oxyhemoglobin Carboxyhemoglobin Sodium Potassium Chloride Carbon Dioxide BUN Creatinine Glucose POC Glucose 197 H 181 H 204 H Hemoglobin A1c Lactic Acid Calcium Ionized Calcium Phosphorus AST ALT Alkaline Phosphatase Ammonia Lactate Dehydrogenase Total Creatine Kinase Troponin T C-Reactive Protein Total Protein Albumin Triglycerides LDL Cholesterol Direct HDL Cholesterol Arterial Blood Glucose Arterial Blood Ionized Calcium Urine WBC (Auto) Salicylates Crossmatch 08/22/20 08/23/20 08/23/20 23:11 05:32 12:06 WBC RBC Hgb Hct MCV MCH MCHC RDW Plt Count Seg Neuts % (Manual) Lymphocytes % (Manual) Seg Neutrophils # Man Lymphocytes # (Manual) Haptoglobin PT INR ABG pH POC ABG pCO2 POC ABG pO2 ABG pO2 ABG O2 Saturation ABG Hemoglobin ABG Oxyhemoglobin ABG Sodium ABG Potassium ABG Chloride ABG Glucose Oxyhemoglobin Carboxyhemoglobin Sodium Potassium Chloride Carbon Dioxide BUN Creatinine Glucose POC Glucose 189 H 159 H 168 H Hemoglobin A1c Lactic Acid Calcium Ionized Calcium Phosphorus AST ALT Alkaline Phosphatase Ammonia Lactate Dehydrogenase Total Creatine Kinase Troponin T C-Reactive Protein Total Protein Albumin Triglycerides LDL Cholesterol Direct HDL Cholesterol Arterial Blood Glucose Arterial Blood Ionized Calcium Urine WBC (Auto) Salicylates Crossmatch Chest x-ray: image reviewed (persistent but smaller effusions and infiltrates) Allied health notes reviewed: nursing
[2020-08-23] MEDS: MICAFUNGIN 100 MG in SODIUM CHLORIDE 0.9% 100 ML IV SCH (13:17)
--- NOTE | 2020-08-23 13:19 | XRay Report ---
XR chest 1V ap INDICATION / CLINICAL INFORMATION: aspiration. COMPARISON: 08/17/2020 FINDINGS: SUPPORT DEVICES: Tracheostomy device is stable. HEART /PULMONARY VASCULATURE: Unchanged. LUNGS / PLEURA: Unchanged moderate mid and lower lung predominant bilateral airspace disease. Small p leural effusions are unchanged. No pneumatosis. IMPRESSION: No interval change Signer Name: Reji Sotomayor MD Signed: 08/23/2020 1:14 PM Workstation Name: [id number]
[2020-08-23] MEDS: VANCOMYCIN 1,500 MG in SODIUM CHLORIDE 0.9% 500 ML 500 ML IV SCH (15:01)
--- NOTE | 2020-08-23 16:01 | Progress Note ---
Assessment and Plan Cultures: 07/28/2020 blood culture: C albicans, later addended to C parapsilosis 07/28/2020 urine culture: No growth COVID PCR: negative 07/31/2020 blood culture: Coag negative staph in 1 of 4 bottles (contaminant) 08/02/2020 blood culture: No growth 08/06/2020 Resp culture: normal resp hawk 08/06/2020 BAL AFB stain: negative 08/06/2020 BAL fungal culture: stain positive, culture in process. 08/16/2020 pleural fluid: 425 WBC, 3000 RBC. Pending 08/19/2020 blood cultures pending A/P: 69-year-old senior care resident with quadriplegia, spinal cord injury, was brought in due to fever and sepsis: #Septic shock: Initially resolved likely due to candidemia +/- pneumonia. New fever 08/18 ? Likely secondary to CAUTI. #Candidemia: Unclear source. ?IV line. Transthoracic echo without vegetation. Repeat blood culture no growth. Completed fluconazole course for Jennyfer albicans. Dr Simmons reviewed the scanned lab section on 08/17/2020 and noted that blood culture done on 07/28/2020 was identified as Jennyfer parapsilosis resistant to fluconazole. In the microbiology section, it continues to be listed as Jennyfer albicans which is typically susceptible to fluconazole. Lab did not notify us about the error or addended report. Considering this discrepancy, best to treat with IV micafungin for 14 days. D/W pharmacy. #Pneumonia: CT chest showed patchy airspace disease suggestive of possible aspiration. Chest x-ray with left lung whiteout, got bronch with suctioning of mucous plug, cultures with normal resp hawk. Treated with abx. Repeat CXR increased in pleuroparenchimal opacities. #B/L pleural effusions: s/p thoracentesis on 08/16/2020, about 800 cc of clear straw colored fluid drained. #UTI with chronic indwelling catheter: s/p abx. Repeat urinalysis 08/19/2020 with large pyuria ?CAUTI #Acute hypoxic respiratory failure: On mechanical ventilation via trach. Noted some desaturation overnight on the vent Fio2 45%, p8 #Transaminitis: Improving.RUQ US no GB stone or dilation #Sacral decubitus ulcer: Continue wound care, offloading as possible Recs: -Cefepime 2g IV q12h for 5 days, stop date in place. -IV micafungin 100 mg daily ending 08/31/2020 -S/p trach/PEG -Monitor mentation Omkar Cabrera MD [facility] ([facility]) O: [phone] F: [phone] Subjective Date of service: 08/23/20 Principal diagnosis: Ac. encephalopathy; Ac. hypoxemic resp failure; Septic Shock; PNA; UTI; [place] Interval history: Afebrile, no acute change. Imaging personally reviewed: Chest x-ray: No interval change. Objective - Exam Narrative Exam: General appearance: Sedated on the ventilator via trach Eyes: anicteric sclerae, moist conjunctivae HENT: Normocephalic, Atraumatic; normal external ears Neck: Trach Lungs: Bilateral loud rhonchi CV: RRR no murmur Abdomen: Soft, non-tender PEG in place Extremities: Bilateral leg edema, bilateral hands edema Skin: No rash. Psych: Sedated Neuro: sedated Brennan catheter in place - Constitutional Vitals: Vital Signs Temp Pulse Resp BP Pulse Ox 97 F L 70 16 140/73 100 08/23/20 12:00 08/23/20 14:00 08/23/20 14:00 08/23/20 14:00 08/23/20 14:00 Temperature -Last 24 Hours Temperature 97 F Temperature 97.6 F Temperature 97.6 F Temperature 97.0 F Temperature 97.3 F - Labs CBC & Chem 7: 08/20/20 14:10 08/20/20 14:10 Labs: Abnormal lab results 08/22/20 08/22/20 08/23/20 Range/Units 18:11 23:11 05:32 POC Glucose 204 H 189 H 159 H (70-105) mg/dL 08/23/20 Range/Units 12:06 POC Glucose 168 H (70-105) mg/dL
[2020-08-23 16:38] VITALS: BP 143/72
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
== END 2020-08-23 18:57 | DRG 4 ==
LOC: ED 08:48 → CC1 18:02
PROVIDERS: ADMIT Internal Medicine; ATTEND Hospitalist
PROC: 4A033R1 Measurement of Arterial Saturation, Peripheral, Percutaneous Approach (ICD-10-PCS; 2020-07-28)
PROC: 03HB03Z Insertion of Infusion Device into Right Radial Artery, Open Approach (ICD-10-PCS; 2020-07-30)
PROC: 30233N1 Transfusion of Nonautologous Red Blood Cells into Peripheral Vein, Percutaneous Approach (ICD-10-PCS; 2020-08-01)
PROC: 0BH18EZ Insertion of Endotracheal Airway into Trachea, Via Natural or Artificial Opening Endoscopic (ICD-10-PCS; principal; 2020-08-06)
PROC: 5A1955Z Respiratory Ventilation, Greater than 96 Consecutive Hours (ICD-10-PCS; 2020-08-06)
PROC: 0B9G8ZZ Drainage of Left Upper Lung Lobe, Via Natural or Artificial Opening Endoscopic (ICD-10-PCS; 2020-08-06)
PROC: 0B110F4 Bypass Trachea to Cutaneous with Tracheostomy Device, Open Approach (ICD-10-PCS; 2020-08-10)
PROC: 0W9B3ZZ Drainage of Left Pleural Cavity, Percutaneous Approach (ICD-10-PCS; 2020-08-16)
PROC: BB4BZZZ Ultrasonography of Pleura (ICD-10-PCS; 2020-08-16)
DX: A41.9 Sepsis, unspecified organism (principal); R65.21 Severe sepsis with septic shock; N17.0 Acute kidney failure with tubular necrosis; G82.50 Quadriplegia, unspecified; I21.4 Non-ST elevation (NSTEMI) myocardial infarction; I46.9 Cardiac arrest, cause unspecified; J69.0 Pneumonitis due to inhalation of food and vomit; G92 Toxic encephalopathy; J96.21 Acute and chronic respiratory failure with hypoxia; E43 Unspecified severe protein-calorie malnutrition; N39.0 Urinary tract infection, site not specified; E87.1 Hypo-osmolality and hyponatremia; E87.0 Hyperosmolality and hypernatremia; D68.9 Coagulation defect, unspecified; Z20.822 Contact with and (suspected) exposure to COVID-19; R74.01 Elevation of levels of liver transaminase levels; L89.159 Pressure ulcer of sacral region, unspecified stage; D64.9 Anemia, unspecified; B37.9 Candidiasis, unspecified; D69.6 Thrombocytopenia, unspecified; A49.01 Methicillin susceptible Staphylococcus aureus infection, unspecified site; R00.1 Bradycardia, unspecified; E78.00 Pure hypercholesterolemia, unspecified; E83.39 Other disorders of phosphorus metabolism; R73.9 Hyperglycemia, unspecified; E87.6 Hypokalemia; Z83.3 Family history of diabetes mellitus; Z82.49 Family history of ischemic heart disease and other diseases of the circulatory system; Z68.23 Body mass index [BMI] 23.0-23.9, adult; Z79.899 Other long term (current) drug therapy; Z79.4 Long term (current) use of insulin
CPT/HCPCS: 32555; 36415; 36600; 70450; 71045; 71250; 71275; 72125; 74174; 74176; 76604; 76705; 80048; 80053; 80061; 80076; 80320; 81001; 82140; 82270; 82330; 82550; 82803; 82805; 82962; 83010; 83036; 83615; 83735; 84100; 84145; 84443; 84478; 84484; 85007; 85014; 85018; 85025; 85027; 85045; 85610; 85730; 86022; 86140; 86850; 86900; 86901; 86920; 87040; 87070; 87076; 87086; 87102; 87116; 87205; 87641; 88112; 88305; 88312; 88341; 88342; 89051; 93005; 93306; 93970; 94002; 94003; 94640; G0378; G0480; J0360; J0461; J0690; J0692; J0696; J1170; J1450; J1630; J1644; J1650; J1652; J1815; J1940; J1956; J2060; J2185; J2248; J2250; J2704; J2765; J3010; J3370; J3490; J7030; J7040; J7042; J7050; J7121; P9016; Q9967; U0003